=== PATIENT | female | born 1950 | race Caucasian/White ===

== ENCOUNTER → 2017-08-18 | Outpatient (CLI) | payer MEDICARE, OTHER ==
--- NOTE | 2017-08-21 08:36 | MM ---
Reason for exam: additional evaluation requested from prior study. Last mammogram was performed 2 years and 10 months ago. History: Patient is postmenopausal, has history of breast cancer at age 63, and is nulliparous. Family history of breast cancer in mother. Malignant US biopsy breast VAD RT of the right breast, November 08, 2013. Mastectomy of the right breast. Taking antineoplastic beginning at age 63. Physical Findings: Nurse did not find any significant physical abnormalities on exam. [facility] Diagnostic Mammo LT w CAD CC and MLO view(s) were taken of the left breast. Prior study comparison: October 31, 2014, left breast MG diagnostic mammo LT w CAD. November 08, 2013, right breast MG diagnostic mammo RT wo CAD. There are scattered fibroglandular densities. No significant new findings when compared with previous films. These results were verbally communicated with the patient and result sheet given to the patient on 08/18/17. ASSESSMENT: Benign, BI-RAD 2 RECOMMENDATION: Follow-up diagnostic mammogram of the left breast in 1 year.
== END | disposition home or self-care (01) ==
LOC: RADMAMWWP 15:17
PROVIDERS: ATTEND Family Medicine
DX: C50.911 Malignant neoplasm of unspecified site of right female breast (principal); Z78.0 Asymptomatic menopausal state
CPT/HCPCS: 77065

== ENCOUNTER 2017-12-16 16:19 | Inpatient (IN) | payer MEDICARE, OTHER ==
[2017-12-16] MEDS ORDERED: SODIUM CHLORIDE 0.9% 1,000 ML IV STA ×2 (16:46→18:42)
[2017-12-16] MEDS ORDERED: ACETAMINOPHEN TAB 500 MG TAB PO STA (16:46)
--- NOTE | 2017-12-16 16:50 | ED ---
General Adult HPI - General Chief complaint: Fever Stated complaint: flu like symptoms Source: patient Mode of arrival: ambulatory Limitations: no limitations - History of Present Illness Initial comments: Dictation was produced using [employer] dictation software. please excuse any grammatical, word or spelling errors. Chief Complaint: 67-year-old female past medical history of breast cancer, fibromyalgia, diabetes, seizures, SVT presents with constitutional symptoms. History of Present Illness: C7-year-old female with multiple comorbidities presents with constitutional symptoms. Patient states she's been feeling feverish with night sweats since yesterday. Patient denies any cough. Denies any abdominal pain. Patient does complain of some bilateral foot pain but she states that it's been at baseline. She states that she has a history of neuropathy. Denies any severe joint pain. No nausea vomiting. No diarrhea. Denies any overt sick contacts. Denies any throat pain. The ROS documented in this emergency department record has been reviewed and confirmed by me. Those systems with pertinent positive or negative responses have been documented in the HPI. All other systems are other negative and/or noncontributory. - Related Data Home Medications Medication Instructions Recorded Confirmed Cyclobenzaprine [Flexeril] 10 mg PO HS PRN 11/29/13 12/16/17 LORazepam [Ativan] 1 mg PO TID 11/29/13 12/16/17 Lisinopril-Hctz 20-25 mg 1 each PO DAILY 11/29/13 12/16/17 [Zestoretic 20-25] Fluticasone/Salmeterol [Advair 1 inhalation PO RT-DAILY 06/24/14 12/16/17 100-50 Diskus] Anastrozole [Arimidex] 1 mg PO DAILY 09/30/14 12/16/17 Insulin Aspart [NovoLOG] 30 units SQ AC-TID 12/16/17 12/16/17 Insulin Detemir [Levemir Flextouch] 70 units SQ HS 12/16/17 12/16/17 Naproxen Sodium [Aleve] 440 mg PO Q6HR 12/16/17 12/16/17 diphenhydrAMINE HCL [Benadryl] 50 mg PO DAILY 12/16/17 12/16/17 Previous Rx's Medication Instructions Recorded Hydrocodone/Acetaminophen [[place] 1 each PO Q6HR PRN #20 tab 05/15/14 5-325] Allergies Allergy/AdvReac Type Severity Reaction Status Date / Time codeine Allergy Nausea & Verified 12/16/17 17:51 Vomiting Penicillins Allergy Rash/Hives Verified 12/16/17 17:51 phenobarbital AdvReac Unknown Verified 12/16/17 17:51 phenytoin sodium AdvReac Unknown Verified 12/16/17 17:51 [From Dilantin] phenytoin sodium extended AdvReac Unknown Verified 12/16/17 17:51 [From Dilantin] primidone [From Mysoline] AdvReac Unknown Verified 12/16/17 17:51 Review of Systems ROS Statement: Those systems with pertinent positive or pertinent negative responses have been documented in the HPI. ROS Other: All systems not noted in ROS Statement are negative. Past Medical History Past Medical History: Cancer, COPD, Diabetes Mellitus, Hyperlipidemia, Hypertension, Seizure Disorder, Supraventricular Tachycardia (SVT) History of Any Multi-Drug Resistant Organisms: None Reported Past Surgical History: Adenoidectomy, Appendectomy, Cholecystectomy, Hysterectomy, Tonsillectomy Additional Past Surgical History / Comment(s): masectomy right, ganglion cyst right hand Past Psychological History: No Psychological Hx Reported Smoking Status: Current every day smoker Past Alcohol Use History: None Reported Past Drug Use History: None Reported General Exam - General Exam Comments Initial Comments: PHYSICAL EXAM: General Impression: Alert and oriented x3, not in acute distress, warm to the touch HEENT: Normocephalic atraumatic, extra-ocular movements intact, pupils equal and reactive to light bilaterally, mucous membranes moist. Cardiovascular: Tachycardic Chest: Lungs clear to auscultation bilaterally, no rhonchi, no wheeze, no rales Abdomen: Bowel sounds present, abdomen soft, non-tender, non-distended, no organomegaly Musculoskeletal: Pulses present and equal in all extremities, no peripheral edema, no erythematous joints. It needs ankles shoulders elbows and wrists were ranged without palpitations. Motor: Power 5/5 bilaterally, no focal deficits noted Neurological: CN II-XII grossly intact, no focal motor or sensory deficits noted Skin: Intact with no visualized rashes Psych: Normal affect and mood Limitations: no limitations Course Vital Signs 12/16/17 12/16/17 12/16/17 16:27 16:30 16:31 Temperature 100.8 F H Pulse Rate 113 H 115 H Respiratory 13 20 Rate Blood Pressure 137/73 137/73 137/73 O2 Sat by Pulse 97 96 100 Oximetry 12/16/17 12/16/17 12/16/17 17:00 17:30 17:35 Temperature Pulse Rate 106 H 104 H 103 H Respiratory 15 25 H 16 Rate Blood Pressure 128/62 94/55 106/67 O2 Sat by Pulse 94 L 93 L 93 L Oximetry 12/16/17 12/16/17 12/16/17 18:00 18:11 18:30 Temperature 99.3 F Pulse Rate 101 H 100 Respiratory 16 18 Rate Blood Pressure 106/67 99/57 O2 Sat by Pulse 91 L 91 L Oximetry 12/16/17 19:00 Temperature Pulse Rate 106 H Respiratory 20 Rate Blood Pressure 103/73 O2 Sat by Pulse Oximetry Medical Decision Making - Medical Decision Making ED course: 7-year-old female multiple comorbidities presents with constitutional symptoms. At this point there is no clear close as to what might be causing her symptoms of fever chills or night sweats. Patient denies any specific symptoms except for foot pain. Her feet do not appear to be erythematous or painful. At this point doubt any septic arthritides. Arrival shows temperature 100.8, heart rate of 115. Rest of vital signs within acceptable limits.Laboratory evaluation obtained. Leukocytosis of 11.0. Hemoglobin of 10.7. Metabolic panel shows sodium of 133. Potassium 5.2. Creatinine of 2.15. Lactic acidosis of 6.4. Glucose of 425. Troponin of 0.115. Patient's hyperkalemia and elevated troponin is likely secondary to renal dysfunction. There is strong clinical suspicion that patient is having sepsis. Chest x-ray obtained showing no acute processes. Patient given intravenous fluids at 30 mL per KG based on ideal weight. Started on antibiotics. Patient is taking a long time to provide a urine sample. Vital signs shows persistent tachycardia however her blood pressure remains within acceptable limits. Her map is consistently above 65. Patient is mentating appropriately. No clear indication for ICU admission at this time. Patient started on broad-spectrum antibiotics. We'll admit H&P to telemetry. Pending urine studies. EKG interpretation: Ventricular rate 100, normal sinus rhythm, IA interval 170, QS 94. There is incomplete right bundle branch block.. No IA prolongation, no QTC prolongation, no ST or T-wave changes noted. . Overall, this EKG is unremarkable - Lab Data Result diagrams: 12/16/17 16:33 12/16/17 16:33 Lab Results 12/16/17 12/16/17 12/16/17 Range/Units 16:33 16:33 16:33 WBC 11.0 H (3.8-10.6) k/uL RBC 3.44 L (3.80-5.40) m/uL Hgb 10.7 L (11.4-16.0) gm/dL Hct 34.1 (34.0-46.0) % MCV 99.2 (80.0-100.0) fL MCH 31.0 (25.0-35.0) pg MCHC 31.3 (31.0-37.0) g/dL RDW 15.9 H (11.5-15.5) % Plt Count 162 (150-450) k/uL Neutrophils % 86 % Lymphocytes % 9 % Monocytes % 4 % Eosinophils % 1 % Basophils % 0 % Neutrophils # 9.4 H (1.3-7.7) k/uL Lymphocytes # 1.0 (1.0-4.8) k/uL Monocytes # 0.4 (0-1.0) k/uL Eosinophils # 0.1 (0-0.7) k/uL Basophils # 0.0 (0-0.2) k/uL Hypochromasia Moderate Poikilocytosis Slight Macrocytosis Slight Sodium 133 L (137-145) mmol/L Potassium 5.2 H (3.5-5.1) mmol/L Chloride 100 (98-107) mmol/L Carbon Dioxide 18 L (22-30) mmol/L Anion Gap 15 mmol/L BUN 38 H (7-17) mg/dL Creatinine 2.15 H (0.52-1.04) mg/dL Est GFR (CKD-EPI)AfAm 27 (>60 ml/min/1.73 sqM) Est GFR (CKD-EPI)NonAf 24 (>60 ml/min/1.73 sqM) Glucose 425 H (74-99) mg/dL Plasma Lactic Acid Vasile 6.4 H* (0.7-2.0) mmol/L Calcium 9.2 (8.4-10.2) mg/dL Total Bilirubin 1.8 H (0.2-1.3) mg/dL AST 42 H (14-36) U/L ALT 24 (9-52) U/L Alkaline Phosphatase 146 H (38-126) U/L Creatine Kinase (30-135) U/L Troponin I (0.000-0.034) ng/mL Total Protein 7.3 (6.3-8.2) g/dL Albumin 3.5 (3.5-5.0) g/dL 12/16/17 12/16/17 Range/Units 16:33 16:33 WBC (3.8-10.6) k/uL RBC (3.80-5.40) m/uL Hgb (11.4-16.0) gm/dL Hct (34.0-46.0) % MCV (80.0-100.0) fL MCH (25.0-35.0) pg MCHC (31.0-37.0) g/dL RDW (11.5-15.5) % Plt Count (150-450) k/uL Neutrophils % % Lymphocytes % % Monocytes % % Eosinophils % % Basophils % % Neutrophils # (1.3-7.7) k/uL Lymphocytes # (1.0-4.8) k/uL Monocytes # (0-1.0) k/uL Eosinophils # (0-0.7) k/uL Basophils # (0-0.2) k/uL Hypochromasia Poikilocytosis Macrocytosis Sodium (137-145) mmol/L Potassium (3.5-5.1) mmol/L Chloride (98-107) mmol/L Carbon Dioxide (22-30) mmol/L Anion Gap mmol/L BUN (7-17) mg/dL Creatinine (0.52-1.04) mg/dL Est GFR (CKD-EPI)AfAm (>60 ml/min/1.73 sqM) Est GFR (CKD-EPI)NonAf (>60 ml/min/1.73 sqM) Glucose (74-99) mg/dL Plasma Lactic Acid Vasile (0.7-2.0) mmol/L Calcium (8.4-10.2) mg/dL Total Bilirubin (0.2-1.3) mg/dL AST (14-36) U/L ALT (9-52) U/L Alkaline Phosphatase (38-126) U/L Creatine Kinase 53 (30-135) U/L Troponin I 0.115 H* (0.000-0.034) ng/mL Total Protein (6.3-8.2) g/dL Albumin (3.5-5.0) g/dL Disposition Clinical Impression: Sepsis Disposition: ADMITTED IP TO THIS HOSP Condition: Fair Referrals: Handy Delcid MD [Primary Care Provider] - 1-2 days Decision Time: 19:31
[2017-12-16 17:07] LABS: Basophils % (A) 0 %; Eosinophils # (A) 0.1 k/uL (0-0.7); Eosinophils % (A) 1 %; HCT 34.1 % (34.0-46.0); HGB 10.7 gm/dL (11.4-16.0); Hypochromasia Moderate; Lymphocytes % (A) 9 %; MCHC 31.3 g/dL (31.0-37.0); MCV 99.2 fL (80.0-100.0); Macrocytosis Slight; Monocytes # (A) 0.4 k/uL (0-1.0); Monocytes % (A) 4 %; Neutrophils # (A) 9.4 k/uL (1.3-7.7); Neutrophils % (A) 86 %; Platelet Count 162 k/uL (150-450); Poikilocytosis Slight; RBC 3.44 m/uL (3.80-5.40); RDW 15.9 % (11.5-15.5)
[2017-12-16 17:18] LABS: Albumin 3.5 g/dL (3.5-5.0); Calcium 9.2 mg/dL (8.4-10.2); Potassium 5.2 mmol/L (3.5-5.1); Total Bilirubin 1.8 mg/dL (0.2-1.3); Total Protein 7.3 g/dL (6.3-8.2)
--- NOTE | 2017-12-16 17:30 | XR ---
EXAMINATION TYPE: XR chest 2V DATE OF EXAM: 12/16/2017 COMPARISON: Prior chest x-ray 03/26/2015 HISTORY: Fever, nausea, breast carcinoma TECHNIQUE: Frontal and lateral views of the chest are obtained. FINDINGS: Patient is rotated. There is no focal air space opacity, pleural effusion, or pneumothorax seen. The cardiac silhouette size is stable, enlarged. The osseous structures are intact. IMPRESSION: No acute cardiopulmonary process.
[2017-12-16] MEDS ORDERED: MORPHINE SULFATE 4 MG/ML SYRINGE IVP PRN (17:57)
[2017-12-16] MEDS ORDERED: CEFEPIME 2 GM in SODIUM CHLORIDE 0.9% 50 ML IVPB STA (17:58)
[2017-12-16] MEDS ORDERED: VANCOMYCIN 2,250 MG in SODIUM CHLORIDE 0.9% 250 ML IVPB STA (18:01)
[2017-12-16] MEDS ORDERED: VANCOMYCIN 2,250 MG in SODIUM CHLORIDE 0.9% 500 ML 500 ML IVPB STA (18:02)
[2017-12-16] MEDS ORDERED: VANCOMYCIN IV PER PHARMACY 1 EACH MISC MISCELLANE PRN (18:02)
[2017-12-16] MEDS ORDERED: LORazepam 2 MG/ML INJ IV STA (20:22)
[2017-12-16] MEDS ORDERED: METOPROLOL TARTRATE 5 MG/5 ML VIAL IVP STA ×2 (20:40→21:27)
[2017-12-16] MEDS ORDERED: MAGNESIUM SULFATE-D5W PMX 1 GM in DEXTROSE/WATER 1 100ML.BAG IVPB SCH (21:00)
[2017-12-16 21:44] LABS: Appearance,Urine Turbid (Clear); Bacteria,Urine Many /hpf; Bilirubin,Urine Negative (Negative); Blood,Urine Large (Negative); Color,Urine Light Red; Glucose,Urine (UA) 3+ (Negative); Hyaline Casts,Urine 69 /lpf (0-2); Ketones,Urine Negative (Negative); Leukocyte Esterase,Urine Large (Negative); Nitrite,Urine Negative (Negative); PH, Urine 5.5 (5.0-8.0); Protein,Urine 3+ (Negative); RBC,Urine >182 /hpf (0-5); Specific Gravity,Urine 1.015 (1.001-1.035); Urobilinogen,Urine <2.0 mg/dL (<2.0); WBC,Urine >182 /hpf (0-5)
[2017-12-16] MEDS ORDERED: MAGNESIUM SULFATE-D5W PMX 1 GM in DEXTROSE/WATER 1 100ML.BAG IVPB ONE (22:00)
[2017-12-16] MEDS ORDERED: NOREPINEPHRINE 16 MG in SODIUM CHLORIDE 0.9% 250 ML IV SCH (23:00)
[2017-12-16] MEDS ORDERED: SODIUM CHLORIDE 0.9% 1,000 ML IV SCH (23:00)
--- NOTE | 2017-12-16 23:47 | XR ---
EXAMINATION TYPE: XR chest 1V DATE OF EXAM: 12/16/2017 COMPARISON: Today HISTORY: Check line placement TECHNIQUE: Single frontal view of the chest is obtained. FINDINGS: There is left jugular catheter with the tip in the lower superior vena cava. There is no p neumothorax. There is no heart failure. Lungs appear clear of consolidation. IMPRESSION: Catheter appears in good position.
[2017-12-16 23:51] LABS: Glucose,Whole Blood 394 mg/dL (75-99)
[2017-12-17] MEDS ORDERED: MORPHINE SULFATE 4 MG/ML SYRINGE IV PRN (00:50)
[2017-12-17] MEDS ORDERED: NALOXONE 0.4 MG/ML 1 ML VIAL IV PRN (01:53)
[2017-12-17] MEDS: SODIUM CHLORIDE 0.9% 1,000 ML IV SCH ×2 (02:16→11:14)
[2017-12-17] MEDS: HEPARIN SODIUM,PORCINE 5,000 UNIT/ML 1 ML VIAL SQ SCH ×3 (02:30→15:42)
[2017-12-17] MEDS: PANTOPRAZOLE 40 MG/10 ML VIAL IV SCH ×2 (02:34→09:10)
[2017-12-17 05:25] LABS: Basophils # (A) 0.1 k/uL (0-0.2); Basophils % (A) 1 %; Eosinophils # (A) 0.1 k/uL (0-0.7); Eosinophils % (A) 2 %; HCT 27.3 % (34.0-46.0); Hypochromasia Moderate; Lymphocytes # (A) 1.9 k/uL (1.0-4.8); Lymphocytes % (A) 23 %; MCH 31.5 pg (25.0-35.0); MCV 98.6 fL (80.0-100.0); Macrocytosis Slight; Mean Platelet Volume 8.4; Monocytes # (A) 0.6 k/uL (0-1.0); Monocytes % (A) 8 %; Neutrophils # (A) 5.3 k/uL (1.3-7.7); Neutrophils % (A) 64 %; Platelet Count 136 k/uL (150-450); Poikilocytosis Slight; RBC 2.77 m/uL (3.80-5.40); RDW 15.9 % (11.5-15.5); WBC 8.2 k/uL (3.8-10.6)
[2017-12-17 05:29] LABS: HGB 8.7 gm/dL (11.4-16.0)
[2017-12-17 05:30] LABS: Albumin 2.9 g/dL (3.5-5.0); Calcium 8.2 mg/dL (8.4-10.2); Phosphorus 4.5 mg/dL (2.5-4.5); Potassium 4.9 mmol/L (3.5-5.1); Total Bilirubin 1.2 mg/dL (0.2-1.3); Total Protein 6.1 g/dL (6.3-8.2)
--- NOTE | 2017-12-17 06:14 | XR ---
EXAMINATION TYPE: XR chest 1V DATE OF EXAM: 12/17/2017 HISTORY: Shortness of breath. REFERENCE: Previous study dated 12/16/2017. FINDINGS: There is a left internal jugular catheter in place. Its tip is in the superior vena cava. The heart is mildly enlarged. The lungs appear clear. LV difficult to exclude a small left effusion. IMPRESSION: NO SIGNIFICANT INTERVAL CHANGE IN THE APPEARANCE OF THE CHEST.
[2017-12-17] MEDS ORDERED: SODIUM CHLORIDE 0.9% 1,000 ML IV ONE (06:48)
[2017-12-17] MEDS ORDERED: FUROSEMIDE 10 MG/ML 10 ML VIAL IV STA (06:51)
--- NOTE | 2017-12-17 07:29 | P.CNPUL ---
History of Present Illness Consult date: 12/17/17 Requesting physician: Porsche Alexander Reason for consult: other Chief complaint: Fever, chills, hypotension, sepsis History of present illness: This is 67-year-old white female patient of Dr. Delcid, who presented to the emergency department on 12/16/2017 for evaluation of fever, chills, pain in her bilateral feet, patient does have underlying history of diabetes mellitus, with diabetic neuropathy. Patient had some nausea, but no vomiting, no shortness of breath, no cough, no phlegm production. She denied any abdominal pain, no back pain. Denied any urinary symptoms. Past medical history is significant for hypertension, hyperlipidemia, seizure disorder, and patient has not had seizure episodes in a long time, history of right-sided breast cancer status post right mastectomy, and chemotherapy. Patient is on Arimidex currently. She is a current every day smoker, half a pack a day for 46 years. She denies any underlying chronic lung condition. She denies any previous history of myocardial infarction, or congestive heart failure, no past history of chronic kidney disease. She states she was recently diagnosed with diabetes by Dr. Delcid, and she was started initially on metformin, however she could not tolerate it, and she is currently on a combination of Levemir and NovoLog. Patient did have fevers on presentation, with a temp of 100.8F, she was tachycardic with a rate in the 115 BPM. EKG showed normal sinus rhythm with an incomplete right bundle branch block pattern. No acute ischemic changes. Chest x-ray showed no acute cardiopulmonary process. Labs showed a CBC of 11.0 , hemoglobin of 10.7, sodium was 133, potassium is 5.2, patient had an anion gap metabolic acidosis, with CO2 of 18, BUN was 38, creatinine is 2.15. Lactic acid was elevated at 6.4, patient was given 2 L of IV fluid boluses of of 0.9 normal saline, and was started on maintenance IV fluids of 0.9 normal saline at 150 ML per hour, troponin was elevated 0.115. Patient denied any chest pain. Urinalysis showed large amount of leuk trase, red blood cells white blood cells , many bacteria. While in the emergency department, patient developed an episode of SVT, she had an episode of syncope lasting about 30 seconds, patient' s episode of SVT lasted for several seconds and subsequently patient went back into sinus rhythm. Magnesium level was 1.7, patient was given magnesium replacements. Blood and urine cultures were collected and sent, and are pending at this time, patient was started on broad-spectrum antibiotics including cefepime and vancomycin. This morning patient is seen in the intensive care unit, she is awake and alert, oriented 3, in no acute distress. No fevers overnight, maintenance IV fluid is 0.9 normal seen at a rate of 150 ML per hour, she is on levo fed currently at 3 mics per minute, she is oliguric , we will give the patient additional liter bolus of 0.9 normal saline. Cultures are pending. Patient had a left IJ triple-lumen central line catheter placed in the emergency department, follow-up chest x-ray this morning showed no acute cardiopulmonary process, and left internal jugular catheter is in the appropriate position with its tip in the superior vena cava. Lactic acid level on this morning is down to 1.2. Review of Systems All systems: negative Constitutional: Reports malaise, Reports sweats, Denies chills, Denies fever Eyes: denies blurred vision, denies pain Ears, nose, mouth and throat: Denies headache, Denies sore throat Cardiovascular: Denies chest pain, Denies shortness of breath Respiratory: Denies cough Gastrointestinal: Denies abdominal pain, Denies diarrhea, Denies nausea, Denies vomiting Genitourinary: Denies dysuria, Denies hematuria Musculoskeletal: Denies myalgias Integumentary: Denies pruritus, Denies rash Neurological: Reports paresthesias, Reports syncope, Reports tingling, Denies numbness, Denies weakness Psychiatric: Denies anxiety, Denies depression Endocrine: Denies fatigue, Denies weight change Past Medical History Past Medical History: Cancer, COPD, Diabetes Mellitus, Fibromyalgia, Hyperlipidemia, Hypertension, Rheumatoid Arthritis (RA), Seizure Disorder, Supraventricular Tachycardia (SVT) Additional Past Medical History / Comment(s): (R) Breast cancer with masectomy in 2012. DM Type II. Recent dental extraction (all teeth from lower jaw 2017) History of Any Multi-Drug Resistant Organisms: None Reported Past Surgical History: Adenoidectomy, Appendectomy, Breast Surgery, Cholecystectomy, Hysterectomy, Tonsillectomy, Tubal Ligation Additional Past Surgical History / Comment(s): masectomy right, ganglion cyst right hand, Had 5 "tubal pregnancies" Past Anesthesia/Blood Transfusion Reactions: No Reported Reaction Past Psychological History: Anxiety, Depression Additional Psychological History / Comment(s): Mother had hx of suicidal ideation with 3 attempts. Smoking Status: Current every day smoker Past Alcohol Use History: None Reported Past Drug Use History: None Reported - Past Family History Father Family Medical History: Cancer, CVA/TIA Additional Family Medical History / Comment(s): 2000 from lung cancer Mother Family Medical History: Cancer, Dementia Additional Family Medical History / Comment(s): 2014 at age 86. Oral & Breast cancer Brother(s) Family Medical History: Asthma, Diabetes Mellitus, Fibromyalgia, Osteoarthritis (OA) Additional Family Medical History / Comment(s): Obesity. Joint replacements Medications and Allergies Home Medications Medication Instructions Recorded Confirmed Type Cyclobenzaprine [Flexeril] 10 mg PO HS PRN 11/29/13 12/16/17 History LORazepam [Ativan] 1 mg PO TID 11/29/13 12/16/17 History Lisinopril-Hctz 20-25 mg 1 each PO DAILY 11/29/13 12/16/17 History [Zestoretic 20-25] Hydrocodone/Acetaminophen [[place] 1 each PO Q6HR PRN #20 tab 05/15/14 12/16/17 Rx 5-325] Fluticasone/Salmeterol [Advair 1 inhalation PO RT-DAILY 06/24/14 12/16/17 History 100-50 Diskus] Anastrozole [Arimidex] 1 mg PO DAILY 09/30/14 12/16/17 History Insulin Aspart [NovoLOG] 30 units SQ AC-TID 12/16/17 12/16/17 History Insulin Detemir [Levemir Flextouch] 70 units SQ HS 12/16/17 12/16/17 History Naproxen Sodium [Aleve] 440 mg PO Q6HR 12/16/17 12/16/17 History diphenhydrAMINE HCL [Benadryl] 50 mg PO DAILY 12/16/17 12/16/17 History Allergies Allergy/AdvReac Type Severity Reaction Status Date / Time codeine Allergy Nausea & Verified 12/16/17 17:51 Vomiting Penicillins Allergy Rash/Hives Verified 12/16/17 17:51 phenobarbital AdvReac Unknown Verified 12/16/17 17:51 phenytoin sodium AdvReac Unknown Verified 12/16/17 17:51 [From Dilantin] phenytoin sodium extended AdvReac Unknown Verified 12/16/17 17:51 [From Dilantin] primidone [From Mysoline] AdvReac Unknown Verified 12/16/17 17:51 Physical Exam Vitals: Vital Signs Temp Pulse Pulse Resp BP BP Pulse Ox 12/17/17 03:30 82 13 143/71 95 12/17/17 03:20 84 16 82/59 95 12/17/17 03:00 78 14 93/52 96 12/17/17 02:30 81 15 111/70 98 12/17/17 02:00 84 14 116/81 97 12/17/17 01:30 EST 83 14 105/65 97 12/17/17 01:00 EST 84 14 105/64 97 12/17/17 00:30 82 16 105/75 96 12/17/17 00:00 82 16 113/66 96 12/16/17 23:40 98.1 F 86 16 120/69 97 12/16/17 23:18 98 F 88 16 90/58 94 L 12/16/17 23:00 87 16 79/61 93 L 12/16/17 22:30 90 16 109/58 86 L 12/16/17 22:00 95 16 82/49 100 12/16/17 21:30 92 22 102/59 96 12/16/17 21:00 93 16 89/56 95 12/16/17 20:30 98 14 99/82 90 L 12/16/17 20:00 110 H 23 102/56 96 12/16/17 19:30 106 H 21 12/16/17 19:00 106 H 20 103/73 12/16/17 18:30 100 18 99/57 91 L 12/16/17 18:11 99.3 F 12/16/17 18:00 101 H 16 106/67 91 L 12/16/17 17:35 103 H 16 106/67 93 L 12/16/17 17:30 104 H 25 H 94/55 93 L 12/16/17 17:00 106 H 15 128/62 94 L 12/16/17 16:31 100.8 F H 115 H 20 137/73 100 12/16/17 16:30 113 H 13 137/73 96 12/16/17 16:27 137/73 97 Intake and Output 12/16/17 12/17/17 12/17/17 23:59 06:59 14:59 Intake Total Output Total Balance Intake: IV Magnesium Sulfate-D5w Pmx 1 gm In Dextrose/Water 1 100ml.bag @ 100 mls/hr IVPB ONCE ONE Rx#: [id number] Sodium Chloride 0.9% 1, 000 ml @ 100 mls/hr IV . Q10H [facility] Rx#:[id number] Output: Urine Uretheral (Granados) Other: Voiding Method Weight GENERAL EXAM: Alert, pleasant 67-year-old obese white female comfortable in no apparent distress. HEAD: Normocephalic/atraumatic. EYES: Normal reaction of pupils, equal size. Conjunctiva pink, sclera white. NOSE: Clear with pink turbinates. THROAT: No erythema or exudates. NECK: No masses, no JVD, no thyroid enlargement, no adenopathy. CHEST: No chest wall deformity. Symmetrical expansion. LUNGS: Equal air entry with crackles over bilateral lower bases posteriorly CVS: Regular rate and rhythm, distant heart sounds, normal S1 and S2, no gallops , no murmurs, no rubs ABDOMEN: Soft, nontender. No hepatosplenomegaly, normal bowel sounds, no guarding or rigidity. EXTREMITIES: No clubbing, no edema, no cyanosis, 2+ pulses and upper and lower extremities. MUSCULOSKELETAL: Muscle strength and tone normal. SPINE: No scoliosis or deformity SKIN: No rashes CENTRAL NERVOUS SYSTEM: Alert and oriented -3. No focal deficits, tone is normal in all 4 extremities. PSYCHIATRIC: Alert and oriented -3. Appropriate affect. Intact judgment and insight. Results - Laboratory Findings CBC and BMP: 12/17/17 04:48 12/17/17 04:48 Abnormal lab findings: Abnormal Labs 12/16/17 12/16/17 12/16/17 16:33 16:33 16:33 WBC 11.0 H RBC 3.44 L Hgb 10.7 L Hct RDW 15.9 H Plt Count Neutrophils # 9.4 H Sodium 133 L Potassium 5.2 H Carbon Dioxide 18 L BUN 38 H Creatinine 2.15 H Glucose 425 H POC Glucose (mg/dL) Plasma Lactic Acid Vasile 6.4 H* Calcium Total Bilirubin 1.8 H AST 42 H Alkaline Phosphatase 146 H Troponin I Total Protein Albumin Urine Appearance Urine Protein Urine Glucose (UA) Urine Blood Ur Leukocyte Esterase Urine RBC Urine WBC Urine WBC Clumps Urine Bacteria Hyaline Casts 12/16/17 12/16/17 12/16/17 16:33 20:30 20:50 WBC RBC Hgb Hct RDW Plt Count Neutrophils # Sodium Potassium Carbon Dioxide BUN Creatinine Glucose POC Glucose (mg/dL) Plasma Lactic Acid Vasile 3.4 H* Calcium Total Bilirubin AST Alkaline Phosphatase Troponin I 0.115 H* Total Protein Albumin Urine Appearance Turbid H Urine Protein 3+ H Urine Glucose (UA) 3+ H Urine Blood Large H Ur Leukocyte Esterase Large H Urine RBC >182 H Urine WBC >182 H Urine WBC Clumps Many H Urine Bacteria Many H Hyaline Casts 69 H 12/16/17 12/17/17 12/17/17 23:39 04:48 04:48 WBC RBC 2.77 L Hgb 8.7 L D Hct 27.3 L RDW 15.9 H Plt Count 136 L Neutrophils # Sodium 133 L Potassium Carbon Dioxide BUN 40 H Creatinine 2.47 H Glucose 303 H POC Glucose (mg/dL) 394 H Plasma Lactic Acid Vasile Calcium 8.2 L Total Bilirubin AST Alkaline Phosphatase Troponin I Total Protein 6.1 L Albumin 2.9 L Urine Appearance Urine Protein Urine Glucose (UA) Urine Blood Ur Leukocyte Esterase Urine RBC Urine WBC Urine WBC Clumps Urine Bacteria Hyaline Casts - Diagnostic Findings Chest x-ray: report reviewed, image reviewed Additional studies: EKG reviewed Assessment and Plan Plan: Assessment: #1. Septic shock secondary to urinary tract infection, cultures pending #2. Anion gap metabolic acidosis secondary to lactic acidosis related to sepsis #3. Episode of SVT, she has spontaneously converted back to sinus rhythm #4. Transient episode of syncope, likely secondary to SVT #5. Acute kidney injury likely related to hypotension, and steroid use #6. Mild hyponatremia, likely secondary to hypovolemia #7. Hyperglycemia likely induced by sepsis #8. Diabetes mellitus type 2 with diabetic neuropathy #9. Hypertension, hyperlipidemia #10. History of SVT #11. History of right breast cancer, status post mastectomy and chemotherapy #12. Current every day smoker, patient carries a 46-year smoking history, smoking half a pack a day #13. COPD #14. Seizure disorder #15. Chronic anemia Plan: We will give the patient additional 1 L bolus of 0.9 normal saline, to make a total of 3 L in boluses, patient is oliguric, she is on levophed currently at 3 mics per minute, if the urine output does not citrus picker we may try a dose of Lasix 80 mg 1. Continue with current antibiotic coverage, and the following results of cultures, patient is afebrile. We'll obtain nephrology consult in regards to acute kidney injury, obtain ultrasound of the kidneys. Continue GI and DVT prophylaxis, may have to start the patient on insulin drip for glycemic control. Chest x-ray has been reviewed, and showed no acute process. Continue to monitor the patient in the intensive care unit. I performed a history & physical examination of the patient and discussed their management with my nurse practitioner, Yesica Velázquez. I reviewed the nurse practitioner's note and agree with the documented findings and plan of care. Lung sounds are positive for crackles over bilateral lower bases. The findings and the impression was discussed with the patient. I attest to the documentation by the nurse practitioner. Time with Patient: Greater than 30
[2017-12-17] MEDS ORDERED: INSULIN REGULAR BOLUS (FROM DRIP BAG) IV PRN (07:30)
[2017-12-17 07:54] LABS: Glucose,Whole Blood 297 mg/dL (75-99)
[2017-12-17] MEDS: MAGNESIUM SULFATE-D5W PMX 1 GM in DEXTROSE/WATER 1 100ML.BAG IVPB SCH (09:17)
[2017-12-17] MEDS: CEFEPIME 2 GM in SODIUM CHLORIDE 0.9% 50 ML IVPB SCH (09:21)
[2017-12-17 09:22] LABS: Glucose,Whole Blood 357 mg/dL (75-99)
[2017-12-17] MEDS: INSULIN REGULAR 100 UNIT in SODIUM CHLORIDE 0.9% 100 ML IV SCH ×2 (09:25→20:21)
--- NOTE | 2017-12-17 10:02 | CONS ---
CONSULTATION Mrs. Simpson is a 67-year-old female with a history of hypertension and diabetes who presented was not feeling well and fatigue and weak and in the emergency room, she was hypotensive and had findings consistent with urinary sepsis. The patient has a history of breast cancer. She had remote history of SVT. In the emergency room there was an episode that was thought to be related to a ventricular tachycardia, although after reviewing the rhythm strip in detail, the patient is in sinus mechanism and that was an artifact. There was a questionable history of syncope, although I have no clear documentation of that. She is on the low-dose norepinephrine at this time. She is hemodynamically otherwise in sinus mechanism. Had no evidence for further tachy or Alfonso arrhythmia. Her urinary output improved after IV fluid. She denies any chest pain. Her breathing according to her, is stable although she is not very active physically. She has chronic peripheral edema. She has no recent palpitation or syncope. No dizziness. She has no history of obstructive coronary artery disease. MEDICATION: Are home included Naprosyn, lisinopril, HCT 20-25 mg daily, insulin, cyclobenzaprine, hydrocodone, fluticasone and Arimidex. REVIEW OF SYSTEMS: RESPIRATORY system: She had dyspnea on exertion. No recent wheezing or cough. GI system: She denies any recent GI bleeding. No peptic ulcer disease. No nausea. system: She has signs of urinary tract infection. Nervous system: She had a prior history of seizure, but not recently. PHYSICAL EXAMINATION: 67-year-old female, obese, alert, oriented, anxious. The blood pressure running in the 100s-120 with a heart rate in the 80s. HEAD: Normocephalic. Eyes: Sclerae anicteric. Neck: Good carotid upstroke. No bruit. No jugular venous distention. LUNGS: Clear to auscultation. Heart is regular rate and rhythm. S1, S2. No S3 with systolic ejection murmur heard at the base, 3/6, no peaking. No diastolic murmur. No rub. ABDOMEN: Soft, obese, nontender. EXTREMITIES: +1 to 2 edema bilaterally. EKG revealed a sinus mechanism, rate of 100, left axis deviation, poor R progression, nonspecific ST-T wave changes. Cannot exclude inferior wall myocardial infarction. Chest x-ray shows no clear infiltrate. LAB DATA: Lab data revealed a hemoglobin of 8.7, BUN creatinine 20 and 2.47. It was 2.15 yesterday. Potassium 4.9. Her troponin on admission 0.115. Total bilirubin is 1.8. Her plasma lactic acid on presentation was 6.4. On presentation, she was febrile at 100.8. IMPRESSION: 1. Urosepsis with hypotension. 2. Questionable arrhythmia, although reviewing the rhythm strip, patient in sinus mechanism with artifact. 3. Mild troponin elevation most likely related to a type 2 event. I see no evidence to suggest a primary ischemic event. 4. History of hypertension. 5. Hyperlipidemia. 6. Renal function abnormalities. Reviewing the data, her renal function in 2016 were normal. 7. Obesity. 8. History of breast carcinoma. RECOMMENDATION: I would recommend to obtain echocardiogram with Doppler. Patient received IV fluid. Hopefully we can wean the IV norepinephrine off. We will follow her renal function. I will obtain serial enzymes. I will initiate treatment with aspirin. We will follow her blood pressure and if it is stable, we will add a beta talisha. I will add a statin because of history of diabetes and depending on her progress, further recommendations will be made. Thank you for this consult. We will follow with you. MMODL / IJN: [id number] /
[2017-12-17 10:09] LABS: Glucose,Whole Blood 324 mg/dL (75-99)
[2017-12-17] MEDS: ATORVASTATIN 40 MG TAB PO SCH (10:14)
[2017-12-17] MEDS: ASPIRIN 81 MG PO SCH (10:17)
--- NOTE | 2017-12-17 10:33 | US ---
EXAMINATION TYPE: US kidneys/renal and bladder DATE OF EXAM: 12/17/2017 COMPARISON: NONE CLINICAL HISTORY: acute kidney injury. ICU patient, diabetic, BERNIE EXAM MEASUREMENTS: Right Kidney: 12.9 x 4.6 x 5.7 cm Left Kidney: 11.7 x 4.5 x 5.6 cm *large body habitus Right Kidney: No hydronephrosis or masses seen Left Kidney: No hydronephrosis or masses seen Bladder: not distended, murry cath IMPRESSION: NO EVIDENCE OF HYDRONEPHROSIS.
[2017-12-17] MEDS ORDERED: HYDROcodone/APAP 5-325MG 1 EACH TAB PO PRN (10:34)
[2017-12-17 11:06] LABS: Glucose,Whole Blood 282 mg/dL (75-99)
[2017-12-17] MEDS: MORPHINE SULFATE 2 MG/ML SYRINGE IV PRN ×2 (11:08→15:42)
[2017-12-17] MEDS ORDERED: VANCOMYCIN 2,000 MG in SODIUM CHLORIDE 0.9% 500 ML 500 ML IVPB ONE (12:00)
[2017-12-17 12:03] LABS: Glucose,Whole Blood 255 mg/dL (75-99)
--- NOTE | 2017-12-17 13:00 | P.HPIM ---
History of Present Illness H&P Date: 12/17/17 Chief Complaint: Fever chills and increased pain in her bilateral feet Mrs. Zuniga is a 67-year-old female with a past medical history of type 2 diabetes mellitus, diabetic neuropathy, COPD, hyperlipidemia, hypertension, rheumatoid arthritis, seizure disorder coming to the hospital with a chief complaint of fever chills and increased pain in her bilateral feet for the past couple of days. Patient states that she was seen by Dr. Delcid on and had few tests done but she is not sure what was done. Patient also had some nausea but did not have any abdominal pain. Patient was also having cramping sensation in her bilateral feet. She states that she was recently diagnosed with diabetes and could not tolerate metformin and so was started on combination of Levemir and NovoLog. Patient denies having any chest pain or palpitations. No cough or difficulty in breathing. Patient denies having any increased frequency of urination or dysuria or hematuria. In the emergency department patient had a temperature of 100.8 and was also found to be tachycardic and tachypneic. EKG was showing incomplete right bundle branch block. UA was positive for large leukocyte esterase with increased WBC count. Patient also had an elevated lactic acid at 6.4. She was given 2 L of IV fluid boluses, her blood pressure was still on the lower side so admitted to the ICU. She also had an episode of V. tach that lasted about a few seconds with a mild syncopal episode. Patient had urine cultures and blood cultures and that is currently pending. As the patient's blood pressure was still on the lower side she was started on Levophed. Broad-spectrum antibiotics in the form of vancomycin and cefepime have been started. Patient is currently in the ICU. This morning patient was lying in bed appears to be in no acute distress. Patient states that she still has cramping in her bilateral feet. She mentions that she has diabetic neuropathy and Dr. Delcid has been taking care of her. Patient denies having any chest pain or difficulty in breathing. She denies having any urinary symptoms. Review of Systems REVIEW OF SYSTEMS: PSYCH: Patient seems to be depressed-as she thinks she is a burden to have to bradycardia. She was also tearful thinking about the loss of her 9 years back. NEURO:No c/o weakness of the extremties, No facial droop, No speech abnormalities. VASCULAR: Diabetic neuropathy HEMATOLOGIC: No history of easy bleeding and bruising . No recent infections . RESPIRATORY: No cough, No SOB, No chest discomfort. 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 GI: No abdominal pain, Nausea or vomiting. No constipation or diarrhea. All 13 review of systems done and negative except for ones mentioned above Past Medical History Past Medical History: Cancer, COPD, Diabetes Mellitus, Fibromyalgia, Hyperlipidemia, Hypertension, Rheumatoid Arthritis (RA), Seizure Disorder, Supraventricular Tachycardia (SVT) Additional Past Medical History / Comment(s): (R) Breast cancer with masectomy in 2012. DM Type II. Recent dental extraction (all teeth from lower jaw 2017) History of Any Multi-Drug Resistant Organisms: None Reported Past Surgical History: Adenoidectomy, Appendectomy, Breast Surgery, Cholecystectomy, Hysterectomy, Tonsillectomy, Tubal Ligation Additional Past Surgical History / Comment(s): masectomy right, ganglion cyst right hand, Had 5 "tubal pregnancies" Past Anesthesia/Blood Transfusion Reactions: No Reported Reaction Past Psychological History: Anxiety, Depression Additional Psychological History / Comment(s): Mother had hx of suicidal ideation with 3 attempts. Smoking Status: Current every day smoker Past Alcohol Use History: None Reported Past Drug Use History: None Reported - Past Family History Father Family Medical History: Cancer, CVA/TIA Additional Family Medical History / Comment(s): 2000 from lung cancer Mother Family Medical History: Cancer, Dementia Additional Family Medical History / Comment(s): 2014 at age 86. Oral & Breast cancer Brother(s) Family Medical History: Asthma, Diabetes Mellitus, Fibromyalgia, Osteoarthritis (OA) Additional Family Medical History / Comment(s): Obesity. Joint replacements Medications and Allergies Home Medications Medication Instructions Recorded Confirmed Type Cyclobenzaprine [Flexeril] 10 mg PO HS PRN 11/29/13 12/16/17 History LORazepam [Ativan] 1 mg PO TID 11/29/13 12/16/17 History Lisinopril-Hctz 20-25 mg 1 each PO DAILY 11/29/13 12/16/17 History [Zestoretic 20-25] Hydrocodone/Acetaminophen [[place] 1 each PO Q6HR PRN #20 tab 05/15/14 12/16/17 Rx 5-325] Fluticasone/Salmeterol [Advair 1 inhalation PO RT-DAILY 06/24/14 12/16/17 History 100-50 Diskus] Anastrozole [Arimidex] 1 mg PO DAILY 09/30/14 12/16/17 History Insulin Aspart [NovoLOG] 30 units SQ AC-TID 12/16/17 12/16/17 History Insulin Detemir [Levemir Flextouch] 70 units SQ HS 12/16/17 12/16/17 History Naproxen Sodium [Aleve] 440 mg PO Q6HR 12/16/17 12/16/17 History diphenhydrAMINE HCL [Benadryl] 50 mg PO DAILY 12/16/17 12/16/17 History Allergies Allergy/AdvReac Type Severity Reaction Status Date / Time codeine Allergy Nausea & Verified 12/16/17 17:51 Vomiting Penicillins Allergy Rash/Hives Verified 12/16/17 17:51 phenobarbital AdvReac Unknown Verified 12/16/17 17:51 phenytoin sodium AdvReac Unknown Verified 12/16/17 17:51 [From Dilantin] phenytoin sodium extended AdvReac Unknown Verified 12/16/17 17:51 [From Dilantin] primidone [From Mysoline] AdvReac Unknown Verified 12/16/17 17:51 Physical Exam Vitals: Vital Signs Temp Pulse Pulse Resp BP BP Pulse Ox 12/17/17 07:00 82 13 100/74 96 12/17/17 06:45 82 13 124/78 97 12/17/17 06:30 80 13 106/73 96 12/17/17 06:15 85 15 124/84 96 12/17/17 06:00 79 13 112/70 97 12/17/17 05:45 79 12 97 12/17/17 05:30 80 13 103/68 98 12/17/17 05:00 80 13 116/71 98 12/17/17 04:45 82 13 105/75 97 12/17/17 04:30 78 14 95/65 97 12/17/17 04:15 80 16 99/62 98 12/17/17 04:00 82 15 78/60 98 12/17/17 03:45 79 14 96/64 97 12/17/17 03:30 82 13 143/71 95 12/17/17 03:20 84 16 82/59 95 12/17/17 03:00 78 14 93/52 96 12/17/17 02:30 81 15 111/70 98 12/17/17 02:00 84 14 116/81 97 12/17/17 01:30 EST 83 14 105/65 97 12/17/17 01:00 EST 84 14 105/64 97 12/17/17 00:30 82 16 105/75 96 12/17/17 00:00 82 16 113/66 96 12/16/17 23:40 98.1 F 86 16 120/69 97 12/16/17 23:18 98 F 88 16 90/58 94 L 12/16/17 23:00 87 16 79/61 93 L 12/16/17 22:30 90 16 109/58 86 L 12/16/17 22:00 95 16 82/49 100 12/16/17 21:30 92 22 102/59 96 12/16/17 21:00 93 16 89/56 95 12/16/17 20:30 98 14 99/82 90 L 12/16/17 20:00 110 H 23 102/56 96 12/16/17 19:30 106 H 21 12/16/17 19:00 106 H 20 103/73 12/16/17 18:30 100 18 99/57 91 L 12/16/17 18:11 99.3 F 12/16/17 18:00 101 H 16 106/67 91 L 12/16/17 17:35 103 H 16 106/67 93 L 12/16/17 17:30 104 H 25 H 94/55 93 L 12/16/17 17:00 106 H 15 128/62 94 L 12/16/17 16:31 100.8 F H 115 H 20 137/73 100 12/16/17 16:30 113 H 13 137/73 96 12/16/17 16:27 137/73 97 Intake and Output 12/16/17 12/17/17 12/17/17 23:59 06:59 14:59 Intake Total 1680.755 Output Total 275 Balance 1405.755 Intake: IV 1650 Cefepime 2 gm In Sodium 50 Chloride 0.9% 50 ml @ 100 mls/hr IVPB ONCE STA Rx# :[id number] Magnesium Sulfate-D5w Pmx 1 gm In Dextrose/Water 1 100ml.bag @ 100 mls/hr IVPB ONCE ONE Rx#: [id number] Sodium Chloride 0.9% 1, 600 000 ml @ 100 mls/hr IV . Q10H [facility] Rx#:[id number] Sodium Chloride 0.9% 1, 1000 000 ml @ 999 mls/hr IV . Q1H1M ONE Rx#:[id number] Intake, IV Titration 30.755 Amount Insulin Regular 100 unit 30.755 In Sodium Chloride 0.9% 100 ml @ Per Protocol IV .Q0M [facility] Rx#:[id number] Output: Urine 275 Uretheral ([place]) Other: Voiding Method Weight GENERAL EXAM GEN. APPEARANCE: alert, in no apparent distress HEAD EXAM: atraumatic, normocephalic, normal inspection EYE EXAM: No pallor. No icterus ENT EXAM: normal exam, mucous membranes moist NECK EXAM: No thyromegaly. No JVD. RESPIRATORY EXAM: Distant breath sounds positive bilaterally. No wheezes or crackles. CARDIOVASCULAR EXAM: S1 and S2 heard. No additional sounds. GI/ABDOMINAL EXAM: soft, normal bowel sounds. Absent: distended, tenderness, guarding, rebound, rigid EXTREMITIES EXAM: No edema. Positive for tenderness on touching. NEUROLOGICAL EXAM: alert, oriented X3, no focal neurological deficits. PSYCHIATRIC EXAM: Tearful. Not depressed. SKIN EXAM: warm, dry, intact, normal color. Absent: rash Results CBC & Chem 7: 12/17/17 04:48 12/17/17 04:48 Labs: Abnormal Lab Results - Last 24 Hours (Table) 12/16/17 12/16/17 12/16/17 Range/Units 16:33 16:33 16:33 WBC 11.0 H (3.8-10.6) k/uL RBC 3.44 L (3.80-5.40) m/uL Hgb 10.7 L (11.4-16.0) gm/dL Hct (34.0-46.0) % RDW 15.9 H (11.5-15.5) % Plt Count (150-450) k/uL Neutrophils # 9.4 H (1.3-7.7) k/uL Sodium 133 L (137-145) mmol/L Potassium 5.2 H (3.5-5.1) mmol/L Carbon Dioxide 18 L (22-30) mmol/L BUN 38 H (7-17) mg/dL Creatinine 2.15 H (0.52-1.04) mg/dL Glucose 425 H (74-99) mg/dL POC Glucose (mg/dL) (75-99) mg/dL Plasma Lactic Acid Vasile 6.4 H* (0.7-2.0) mmol/L Calcium (8.4-10.2) mg/dL Total Bilirubin 1.8 H (0.2-1.3) mg/dL AST 42 H (14-36) U/L Alkaline Phosphatase 146 H (38-126) U/L Troponin I (0.000-0.034) ng/mL Total Protein (6.3-8.2) g/dL Albumin (3.5-5.0) g/dL Urine Appearance (Clear) Urine Protein (Negative) Urine Glucose (UA) (Negative) Urine Blood (Negative) Ur Leukocyte Esterase (Negative) Urine RBC (0-5) /hpf Urine WBC (0-5) /hpf Urine WBC Clumps (None) /hpf Urine Bacteria (None) /hpf Hyaline Casts (0-2) /lpf 12/16/17 12/16/17 12/16/17 Range/Units 16:33 20:30 20:50 WBC (3.8-10.6) k/uL RBC (3.80-5.40) m/uL Hgb (11.4-16.0) gm/dL Hct (34.0-46.0) % RDW (11.5-15.5) % Plt Count (150-450) k/uL Neutrophils # (1.3-7.7) k/uL Sodium (137-145) mmol/L Potassium (3.5-5.1) mmol/L Carbon Dioxide (22-30) mmol/L BUN (7-17) mg/dL Creatinine (0.52-1.04) mg/dL Glucose (74-99) mg/dL POC Glucose (mg/dL) (75-99) mg/dL Plasma Lactic Acid Vasile 3.4 H* (0.7-2.0) mmol/L Calcium (8.4-10.2) mg/dL Total Bilirubin (0.2-1.3) mg/dL AST (14-36) U/L Alkaline Phosphatase (38-126) U/L Troponin I 0.115 H* (0.000-0.034) ng/mL Total Protein (6.3-8.2) g/dL Albumin (3.5-5.0) g/dL Urine Appearance Turbid H (Clear) Urine Protein 3+ H (Negative) Urine Glucose (UA) 3+ H (Negative) Urine Blood Large H (Negative) Ur Leukocyte Esterase Large H (Negative) Urine RBC >182 H (0-5) /hpf Urine WBC >182 H (0-5) /hpf Urine WBC Clumps Many H (None) /hpf Urine Bacteria Many H (None) /hpf Hyaline Casts 69 H (0-2) /lpf 12/16/17 12/17/17 12/17/17 Range/Units 23:39 04:48 04:48 WBC (3.8-10.6) k/uL RBC 2.77 L (3.80-5.40) m/uL Hgb 8.7 L D (11.4-16.0) gm/dL Hct 27.3 L (34.0-46.0) % RDW 15.9 H (11.5-15.5) % Plt Count 136 L (150-450) k/uL Neutrophils # (1.3-7.7) k/uL Sodium 133 L (137-145) mmol/L Potassium (3.5-5.1) mmol/L Carbon Dioxide (22-30) mmol/L BUN 40 H (7-17) mg/dL Creatinine 2.47 H (0.52-1.04) mg/dL Glucose 303 H (74-99) mg/dL POC Glucose (mg/dL) 394 H (75-99) mg/dL Plasma Lactic Acid Vasile (0.7-2.0) mmol/L Calcium 8.2 L (8.4-10.2) mg/dL Total Bilirubin (0.2-1.3) mg/dL AST (14-36) U/L Alkaline Phosphatase (38-126) U/L Troponin I (0.000-0.034) ng/mL Total Protein 6.1 L (6.3-8.2) g/dL Albumin 2.9 L (3.5-5.0) g/dL Urine Appearance (Clear) Urine Protein (Negative) Urine Glucose (UA) (Negative) Urine Blood (Negative) Ur Leukocyte Esterase (Negative) Urine RBC (0-5) /hpf Urine WBC (0-5) /hpf Urine WBC Clumps (None) /hpf Urine Bacteria (None) /hpf Hyaline Casts (0-2) /lpf 12/17/17 12/17/17 12/17/17 Range/Units 04:48 07:43 09:11 WBC (3.8-10.6) k/uL RBC (3.80-5.40) m/uL Hgb (11.4-16.0) gm/dL Hct (34.0-46.0) % RDW (11.5-15.5) % Plt Count (150-450) k/uL Neutrophils # (1.3-7.7) k/uL Sodium (137-145) mmol/L Potassium (3.5-5.1) mmol/L Carbon Dioxide (22-30) mmol/L BUN (7-17) mg/dL Creatinine (0.52-1.04) mg/dL Glucose (74-99) mg/dL POC Glucose (mg/dL) 297 H 357 H (75-99) mg/dL Plasma Lactic Acid Vasile (0.7-2.0) mmol/L Calcium (8.4-10.2) mg/dL Total Bilirubin (0.2-1.3) mg/dL AST (14-36) U/L Alkaline Phosphatase (38-126) U/L Troponin I 0.118 H* (0.000-0.034) ng/mL Total Protein (6.3-8.2) g/dL Albumin (3.5-5.0) g/dL Urine Appearance (Clear) Urine Protein (Negative) Urine Glucose (UA) (Negative) Urine Blood (Negative) Ur Leukocyte Esterase (Negative) Urine RBC (0-5) /hpf Urine WBC (0-5) /hpf Urine WBC Clumps (None) /hpf Urine Bacteria (None) /hpf Hyaline Casts (0-2) /lpf 12/17/17 12/17/17 12/17/17 Range/Units 09:57 10:54 11:52 WBC (3.8-10.6) k/uL RBC (3.80-5.40) m/uL Hgb (11.4-16.0) gm/dL Hct (34.0-46.0) % RDW (11.5-15.5) % Plt Count (150-450) k/uL Neutrophils # (1.3-7.7) k/uL Sodium (137-145) mmol/L Potassium (3.5-5.1) mmol/L Carbon Dioxide (22-30) mmol/L BUN (7-17) mg/dL Creatinine (0.52-1.04) mg/dL Glucose (74-99) mg/dL POC Glucose (mg/dL) 324 H 282 H 255 H (75-99) mg/dL Plasma Lactic Acid Vasile (0.7-2.0) mmol/L Calcium (8.4-10.2) mg/dL Total Bilirubin (0.2-1.3) mg/dL AST (14-36) U/L Alkaline Phosphatase (38-126) U/L Troponin I (0.000-0.034) ng/mL Total Protein (6.3-8.2) g/dL Albumin (3.5-5.0) g/dL Urine Appearance (Clear) Urine Protein (Negative) Urine Glucose (UA) (Negative) Urine Blood (Negative) Ur Leukocyte Esterase (Negative) Urine RBC (0-5) /hpf Urine WBC (0-5) /hpf Urine WBC Clumps (None) /hpf Urine Bacteria (None) /hpf Hyaline Casts (0-2) /lpf Microbiology - Last 24 Hours (Table) 12/16/17 20:50 Urine Culture - Preliminary Urine,Catheterized Thrombosis Risk Factor Assmnt - Choose All That Apply Each Factor Represents 1 point: Medical pt on bed rest, Obesity (BMI >25), Sepsis (< 1month), Swollen legs (current) Each Risk Factor Represents 2 Points: Age 61-74 years, Central venous access Thrombosis Risk Factor Assessment Total Risk Factor Score: 8 Thrombosis Risk Factor Assessment Level: High Risk Assessment and Plan Assessment: ASSESSMENT Septic shock secondary to UTI Metabolic acidosis- due to sepsis Transient syncopal episode secondary to SVT Hypovolemic hyponatremia Acute kidney injury secondary to sepsis COPD Type 2 diabetes mellitus with diabetic neuropathy Hypertension Hyperlipidemia Morbid obesity with BMI of 47.2 History of breast cancer status post mastectomy and chemotherapy Nicotine dependence-current every day smoker History of seizure disorder Moderate protein calorie malnutrition Plan: Patient is currently on Levophed at 3 mics per minute to maintain a map of about 60. Continue with cefepime for her UTI pending urine cultures. Patient has been started on insulin drip for better glycemic control in view of her ongoing sepsis. We will hold all nephrotoxic agents and blood pressure medications. We'll continue with morphine for her pain management. Overall prognosis is guarded. Further recommendations to follow depending on the progress of the patient.
[2017-12-17 13:26] LABS: Glucose,Whole Blood 232 mg/dL (75-99)
[2017-12-17 14:13] LABS: Glucose,Whole Blood 224 mg/dL (75-99)
[2017-12-17] MEDS: ONDANSETRON 4 MG/2 ML VIAL IVP PRN ×2 (15:00→22:19)
[2017-12-17 15:19] LABS: Glucose,Whole Blood 202 mg/dL (75-99)
--- NOTE | 2017-12-17 15:53 | CONS ---
CONSULTATION REASON FOR CONSULT: Renal failure. HISTORY OF PRESENT ILLNESS: Patient is a 67-year-old female who was admitted to the hospital with weakness. Patient also had fever. She was found to be hypotensive. Currently, she is maintained on Levophed. The UA is suggestive of urinary tract infection. Patient is also maintained on antibiotics. Urine output was significantly low initially. However, it seems to have picked up after fluid boluses. The patient denies any prior history of kidney diseases. PAST MEDICAL HISTORY: History of COPD, type 2 diabetes, fibromyalgia, hyperlipidemia, hypertension, rheumatoid arthritis, seizure disorder, SVT, history of breast cancer. PAST SURGICAL HISTORY: Mastectomy, cholecystectomy, appendectomy, adenoidectomy, tonsillectomy, tubal ligation, hysterectomy, and a mastectomy was on the right side. Dental extraction. SOCIAL HISTORY: Positive for smoking. No history of drug abuse or alcohol abuse. MEDICATIONS: Medications at home prior to admission included Flexeril, Ativan, Zestoretic, insulin, Aleve, Benadryl. ALLERGIES: Include CODEINE, PENICILLIN, PHENOBARBITAL. PENICILLIN causes rash and hives. DILANTIN and MYSOLINE. EXAMINATION: Patient is comfortable. She is awake. She is not in any acute distress. Blood pressure this morning was 124/78, heart rate 82 per minute. Patient is afebrile. Examination of the heart: S1, S2. Examination of the lungs: Bilateral breath sounds are heard. Abdomen is soft, nontender. Examination lower extremity shows no significant edema. TREASURY MANAGER exam is grossly intact. LABS: Revealed sodium 133, potassium 4.9, chloride 103, BUN 40, serum creatinine 2.47, hemoglobin 8.7 g/dL, white cell count 8.2, phosphorus 4.5, albumin 2.9. Troponin 0.118. The UA shows 3+ protein, 3+ glucose, WBCs more than 182, multiple hyaline casts. ASSESSMENT: 1. Acute kidney injury secondary to hypotension, underlying infection and sepsis, currently nonoliguric with improving urine output. Continue with IV fluids. 2. Urinary tract infection, maintained on cefepime. The patient also received 1 dose of vancomycin. I would avoid further doses of vancomycin given her acute kidney injury. 3. Mild hyponatremia secondary to renal failure. 4. Type 2 diabetes. 5. History of breast cancer, status post right mastectomy and chemotherapy. 6. History of chronic obstructive pulmonary disease. 7. Recent episode of SVT. PLAN: Continue cefepime. Hold off on vancomycin. Continue aggressive IV hydration. Repeat labs in a.m. Avoid any NSAIDs even after discharge. I did note that the patient was taking Aleve prior to her admission. Thank you for this consultation. We will continue to follow the patient with you during her hospitalization. DHAVAL / MOISÉS: [id number] /
[2017-12-17 16:36] LABS: Glucose,Whole Blood 201 mg/dL (75-99)
[2017-12-17 17:17] LABS: Glucose,Whole Blood 195 mg/dL (75-99)
[2017-12-17 18:21] LABS: Glucose,Whole Blood 178 mg/dL (75-99)
[2017-12-17] MEDS: ANASTROZOLE 1 MG TAB PO SCH (18:46)
[2017-12-17 19:24] LABS: Glucose,Whole Blood 186 mg/dL (75-99)
[2017-12-17 20:35] LABS: Glucose,Whole Blood 177 mg/dL (75-99)
[2017-12-17 21:26] LABS: Glucose,Whole Blood 191 mg/dL (75-99)
[2017-12-17] MEDS: INSULIN DETEMIR 100 UNIT/ML 10 ML VIAL SQ SCH (22:07)
[2017-12-17] MEDS: LORazepam 1 MG TAB PO SCH (22:08)
[2017-12-17 22:18] LABS: Glucose,Whole Blood 167 mg/dL (75-99)
[2017-12-18] MEDS: SODIUM CHLORIDE 0.9% 1,000 ML IV SCH ×3 (00:20→17:17)
[2017-12-18] MEDS: HEPARIN SODIUM,PORCINE 5,000 UNIT/ML 1 ML VIAL SQ SCH ×3 (01:20→17:15)
[2017-12-18 01:27] LABS: Glucose,Whole Blood 152 mg/dL (75-99)
[2017-12-18 03:37] LABS: Glucose,Whole Blood 127 mg/dL (75-99)
[2017-12-18 04:51] LABS: Glucose,Whole Blood 119 mg/dL (75-99)
[2017-12-18 05:37] LABS: Anisocytosis Slight; Basophils % (A) 1 %; Eosinophils # (A) 0.1 k/uL (0-0.7); Eosinophils % (A) 2 %; HGB 8.4 gm/dL (11.4-16.0); Hypochromasia Slight; Lymphocytes # (A) 1.6 k/uL (1.0-4.8); Lymphocytes % (A) 29 %; MCH 30.7 pg (25.0-35.0); MCHC 32.2 g/dL (31.0-37.0); MCV 95.3 fL (80.0-100.0); Mean Platelet Volume 7.9; Monocytes # (A) 0.5 k/uL (0-1.0); Monocytes % (A) 8 %; Neutrophils % (A) 56 %; Platelet Count 127 k/uL (150-450); Poikilocytosis Slight; RBC 2.73 m/uL (3.80-5.40); WBC 5.4 k/uL (3.8-10.6)
[2017-12-18 05:46] LABS: Albumin 2.8 g/dL (3.5-5.0); Calcium 8.2 mg/dL (8.4-10.2); Phosphorus 4.4 mg/dL (2.5-4.5); Total Bilirubin 0.9 mg/dL (0.2-1.3)
[2017-12-18 06:16] LABS: Glucose,Whole Blood 130 mg/dL (75-99)
[2017-12-18 07:14] LABS: Glucose,Whole Blood 136 mg/dL (75-99)
--- NOTE | 2017-12-18 08:03 | PN ---
PROGRESS NOTE Mrs. Zuniga is a 67-year-old female with a history of diabetes and hypertension who presented with symptoms of progressive fatigue and weakness and was noted to be septic with urinary sepsis. She feels better today. She is in sinus mechanism. She has no evidence of tachycardia or bradycardia. Hemodynamically, she is stable. She is afebrile. She has no evidence of ventricular ectopic activity. She is awake and feels better overall. Her medications include aspirin once a day, Lipitor 40 mg daily. PHYSICAL EXAMINATION: Blood pressure is running in the high 90s to low 100s with the heart rate in the 80s. LUNGS: No wheezes or rales. HEART: Regular rate and rhythm. S1, S2. No S3. No rub appreciated. ABDOMEN: Soft, nontender. EXTREMITIES: No significant edema. LAB DATA: Her lab data revealed a BUN and creatinine 42 and 2.37, potassium 5.0. Hemoglobin of 8.4, which has dropped slightly. IMPRESSION: 1. Urosepsis, hemodynamically stable at this time. 2. Renal failure, could be acute kidney injury. 3. Diabetes mellitus. 4. Hypertension by history. 5. History of hyperlipidemia. 6. History of breast cancer. RECOMMENDATION: From the cardiac standpoint, we will continue present therapy. We will obtain echocardiogram with Doppler. We will follow her renal function and depending on her progress, further recommendation will be made. MMODL / IJN: [id number] /
[2017-12-18 08:08] LABS: Glucose,Whole Blood 193 mg/dL (75-99)
--- NOTE | 2017-12-18 08:51 | P.PN ---
Subjective Progress Note Date: 12/18/17 Principal diagnosis: Septic shock secondary to urinary tract infection, cultures pending This is 67-year-old white female patient of Dr. Delcid, who presented to the emergency department on 12/16/2017 for evaluation of fever, chills, pain in her bilateral feet, patient does have underlying history of diabetes mellitus, with diabetic neuropathy. Patient had some nausea, but no vomiting, no shortness of breath, no cough, no phlegm production. She denied any abdominal pain, no back pain. Denied any urinary symptoms. Past medical history is significant for hypertension, hyperlipidemia, seizure disorder, and patient has not had seizure episodes in a long time, history of right-sided breast cancer status post right mastectomy, and chemotherapy. Patient is on Arimidex currently. She is a current every day smoker, half a pack a day for 46 years. She denies any underlying chronic lung condition. She denies any previous history of myocardial infarction, or congestive heart failure, no past history of chronic kidney disease. She states she was recently diagnosed with diabetes by Dr. Delcid, and she was started initially on metformin, however she could not tolerate it, and she is currently on a combination of Levemir and NovoLog. Patient did have fevers on presentation, with a temp of 100.8F, she was tachycardic with a rate in the 115 BPM. EKG showed normal sinus rhythm with an incomplete right bundle branch block pattern. No acute ischemic changes. Chest x-ray showed no acute cardiopulmonary process. Labs showed a CBC of 11.0 , hemoglobin of 10.7, sodium was 133, potassium is 5.2, patient had an anion gap metabolic acidosis, with CO2 of 18, BUN was 38, creatinine is 2.15. Lactic acid was elevated at 6.4, patient was given 2 L of IV fluid boluses of of 0.9 normal saline, and was started on maintenance IV fluids of 0.9 normal saline at 150 ML per hour, troponin was elevated 0.115. Patient denied any chest pain. Urinalysis showed large amount of leuk trase, red blood cells white blood cells , many bacteria. While in the emergency department, patient developed an episode of SVT, she had an episode of syncope lasting about 30 seconds, patient' s episode of SVT lasted for several seconds and subsequently patient went back into sinus rhythm. Magnesium level was 1.7, patient was given magnesium replacements. Blood and urine cultures were collected and sent, and are pending at this time, patient was started on broad-spectrum antibiotics including cefepime and vancomycin. This morning patient is seen in the intensive care unit, she is awake and alert, oriented 3, in no acute distress. No fevers overnight, maintenance IV fluid is 0.9 normal seen at a rate of 150 ML per hour, she is on levo fed currently at 3 mics per minute, she is oliguric , we will give the patient additional liter bolus of 0.9 normal saline. Cultures are pending. Patient had a left IJ triple-lumen central line catheter placed in the emergency department, follow-up chest x-ray this morning showed no acute cardiopulmonary process, and left internal jugular catheter is in the appropriate position with its tip in the superior vena cava. Lactic acid level on this morning is down to 1.2. On 12/18/2017 patient seen in follow-up in the intensive care unit, she is awake and alert, oriented 3, she did complain of been a bit lightheaded this morning, she didn't feel like she was going to pass out however there has been no recurrent episodes of syncope since the one episode in the emergency room which was likely precipitated by SVT. No recurrence of SVT on the monitor, patient remains in sinus rhythm with a controlled rate, she is hemodynamically stable, her levo fed has been on hold since 345 in the morning. Current IV fluids this 0.9 normal saline at a rate of 100 ML per hour, insulin drip is on hold. Complains of chest pain, no shortness of breath, pulse ox on 2 L per nasal cannula was 99%, afebrile, blood and urine cultures are pending, patient is on empiric antibiotics including cefepime and vancomycin. Today's labs have been reviewed, the WBCs 5.4, hemoglobin is 8.4, serum sodium is 131, potassium is 5.0, CO2 is 19, BUN is 42, creatinine is 2.37. Patient has had no recurrent episodes of syncope, she does have a remote history of seizures, however he has not had any seizure in the last 25 years, she is to follow with the neurologist in [place], however she is not able to take certain antiepileptic medications including Dilantin, and phenobarbital. We'll continue with current medical treatment. Objective - Vital Signs Vital signs: Vital Signs Temp 98 F 12/18/17 04:00 Pulse 84 12/18/17 07:15 Resp 15 12/18/17 07:15 BP 109/66 12/18/17 07:15 Pulse Ox 99 12/18/17 07:15 Intake & Output 12/17/17 12/18/17 12/18/17 18:59 06:59 18:59 Intake Total 2455.797 1301.132 100 Output Total 520 520 50 Balance 1935.797 781.132 50 Weight 139 kg Intake: IV 2370 1100 100 Cefepime 2 gm In Sodium 50 Chloride 0.9% 50 ml @ 100 mls/hr IVPB ONCE STA Rx# :[id number] Flush with lab draws 20 Sodium Chloride 0.9% 1, 1300 1100 100 000 ml @ 100 mls/hr IV . Q10H ROS Rx#:[id number] Sodium Chloride 0.9% 1, 1000 000 ml @ 999 mls/hr IV . Q1H1M ONE Rx#:[id number] Intake, IV Titration 85.797 51.132 Amount Insulin Regular 100 unit 60.853 43.221 In Sodium Chloride 0.9% 100 ml @ Per Protocol IV .Q0M ROS Rx#:[id number] Norepinephrine 16 mg In 24.944 7.911 Sodium Chloride 0.9% 250 ml @ Titrate IV .Q0M ROS Rx#:[id number] Oral 150 Output: Urine 520 520 50 Other: Voiding Method Indwelling Catheter Indwelling Catheter - Exam GENERAL EXAM: Alert, pleasant 67-year-old obese white female comfortable in no apparent distress. HEAD: Normocephalic/atraumatic. EYES: Normal reaction of pupils, equal size. Conjunctiva pink, sclera white. NOSE: Clear with pink turbinates. THROAT: No erythema or exudates. NECK: No masses, no JVD, no thyroid enlargement, no adenopathy. CHEST: No chest wall deformity. Symmetrical expansion. LUNGS: Equal air entry with crackles over bilateral lower bases posteriorly CVS: Regular rate and rhythm, distant heart sounds, normal S1 and S2, no gallops , no murmurs, no rubs ABDOMEN: Soft, nontender. No hepatosplenomegaly, normal bowel sounds, no guarding or rigidity. EXTREMITIES: No clubbing, no edema, no cyanosis, 2+ pulses and upper and lower extremities. MUSCULOSKELETAL: Muscle strength and tone normal. SPINE: No scoliosis or deformity SKIN: No rashes CENTRAL NERVOUS SYSTEM: Alert and oriented -3. No focal deficits, tone is normal in all 4 extremities. PSYCHIATRIC: Alert and oriented -3. Appropriate affect. Intact judgment and insight. - Labs CBC & Chem 7: 12/18/17 04:35 12/18/17 04:35 Labs: Abnormal Lab Results - Last 24 Hours (Table) 12/17/17 12/17/17 12/17/17 Range/Units 04:48 09:11 09:57 RBC (3.80-5.40) m/uL Hgb (11.4-16.0) gm/dL Hct (34.0-46.0) % RDW (11.5-15.5) % Plt Count (150-450) k/uL Sodium (137-145) mmol/L Carbon Dioxide (22-30) mmol/L BUN (7-17) mg/dL Creatinine (0.52-1.04) mg/dL Glucose (74-99) mg/dL POC Glucose (mg/dL) 357 H 324 H (75-99) mg/dL Calcium (8.4-10.2) mg/dL Troponin I 0.118 H* (0.000-0.034) ng/mL Total Protein (6.3-8.2) g/dL Albumin (3.5-5.0) g/dL 12/17/17 12/17/17 12/17/17 Range/Units 10:54 11:52 13:14 RBC (3.80-5.40) m/uL Hgb (11.4-16.0) gm/dL Hct (34.0-46.0) % RDW (11.5-15.5) % Plt Count (150-450) k/uL Sodium (137-145) mmol/L Carbon Dioxide (22-30) mmol/L BUN (7-17) mg/dL Creatinine (0.52-1.04) mg/dL Glucose (74-99) mg/dL POC Glucose (mg/dL) 282 H 255 H 232 H (75-99) mg/dL Calcium (8.4-10.2) mg/dL Troponin I (0.000-0.034) ng/mL Total Protein (6.3-8.2) g/dL Albumin (3.5-5.0) g/dL 12/17/17 12/17/17 12/17/17 Range/Units 14:01 15:07 15:55 RBC (3.80-5.40) m/uL Hgb (11.4-16.0) gm/dL Hct (34.0-46.0) % RDW (11.5-15.5) % Plt Count (150-450) k/uL Sodium (137-145) mmol/L Carbon Dioxide (22-30) mmol/L BUN (7-17) mg/dL Creatinine (0.52-1.04) mg/dL Glucose (74-99) mg/dL POC Glucose (mg/dL) 224 H 202 H (75-99) mg/dL Calcium (8.4-10.2) mg/dL Troponin I 0.063 H* (0.000-0.034) ng/mL Total Protein (6.3-8.2) g/dL Albumin (3.5-5.0) g/dL 12/17/17 12/17/17 12/17/17 Range/Units 16:23 17:06 18:09 RBC (3.80-5.40) m/uL Hgb (11.4-16.0) gm/dL Hct (34.0-46.0) % RDW (11.5-15.5) % Plt Count (150-450) k/uL Sodium (137-145) mmol/L Carbon Dioxide (22-30) mmol/L BUN (7-17) mg/dL Creatinine (0.52-1.04) mg/dL Glucose (74-99) mg/dL POC Glucose (mg/dL) 201 H 195 H 178 H (75-99) mg/dL Calcium (8.4-10.2) mg/dL Troponin I (0.000-0.034) ng/mL Total Protein (6.3-8.2) g/dL Albumin (3.5-5.0) g/dL 12/17/17 12/17/17 12/17/17 Range/Units 19:12 20:18 21:13 RBC (3.80-5.40) m/uL Hgb (11.4-16.0) gm/dL Hct (34.0-46.0) % RDW (11.5-15.5) % Plt Count (150-450) k/uL Sodium (137-145) mmol/L Carbon Dioxide (22-30) mmol/L BUN (7-17) mg/dL Creatinine (0.52-1.04) mg/dL Glucose (74-99) mg/dL POC Glucose (mg/dL) 186 H 177 H 191 H (75-99) mg/dL Calcium (8.4-10.2) mg/dL Troponin I (0.000-0.034) ng/mL Total Protein (6.3-8.2) g/dL Albumin (3.5-5.0) g/dL 12/17/17 12/18/17 12/18/17 Range/Units 22:05 01:13 03:25 RBC (3.80-5.40) m/uL Hgb (11.4-16.0) gm/dL Hct (34.0-46.0) % RDW (11.5-15.5) % Plt Count (150-450) k/uL Sodium (137-145) mmol/L Carbon Dioxide (22-30) mmol/L BUN (7-17) mg/dL Creatinine (0.52-1.04) mg/dL Glucose (74-99) mg/dL POC Glucose (mg/dL) 167 H 152 H 127 H (75-99) mg/dL Calcium (8.4-10.2) mg/dL Troponin I (0.000-0.034) ng/mL Total Protein (6.3-8.2) g/dL Albumin (3.5-5.0) g/dL 12/18/17 12/18/17 12/18/17 Range/Units 04:35 04:35 04:39 RBC 2.73 L (3.80-5.40) m/uL Hgb 8.4 L (11.4-16.0) gm/dL Hct 26.0 L (34.0-46.0) % RDW 16.0 H (11.5-15.5) % Plt Count 127 L (150-450) k/uL Sodium 131 L (137-145) mmol/L Carbon Dioxide 19 L (22-30) mmol/L BUN 42 H (7-17) mg/dL Creatinine 2.37 H (0.52-1.04) mg/dL Glucose 110 H (74-99) mg/dL POC Glucose (mg/dL) 119 H (75-99) mg/dL Calcium 8.2 L (8.4-10.2) mg/dL Troponin I (0.000-0.034) ng/mL Total Protein 6.0 L (6.3-8.2) g/dL Albumin 2.8 L (3.5-5.0) g/dL 12/18/17 12/18/17 12/18/17 Range/Units 06:05 07:03 07:57 RBC (3.80-5.40) m/uL Hgb (11.4-16.0) gm/dL Hct (34.0-46.0) % RDW (11.5-15.5) % Plt Count (150-450) k/uL Sodium (137-145) mmol/L Carbon Dioxide (22-30) mmol/L BUN (7-17) mg/dL Creatinine (0.52-1.04) mg/dL Glucose (74-99) mg/dL POC Glucose (mg/dL) 130 H 136 H 193 H (75-99) mg/dL Calcium (8.4-10.2) mg/dL Troponin I (0.000-0.034) ng/mL Total Protein (6.3-8.2) g/dL Albumin (3.5-5.0) g/dL Microbiology - Last 24 Hours (Table) 12/16/17 16:33 Blood Culture - Preliminary Blood No Growth after 24 hours 12/16/17 20:50 Urine Culture - Preliminary Urine,Catheterized Assessment and Plan Plan: Assessment: #1. Septic shock secondary to urinary tract infection, cultures pending #2. Anion gap metabolic acidosis secondary to lactic acidosis related to sepsis #3. Episode of SVT, she has spontaneously converted back to sinus rhythm #4. Transient episode of syncope, likely secondary to SVT #5. Acute kidney injury likely related to hypotension, and steroid use #6. Mild hyponatremia, likely secondary to hypovolemia #7. Hyperglycemia likely induced by sepsis #8. Diabetes mellitus type 2 with diabetic neuropathy #9. Hypertension, hyperlipidemia #10. History of SVT #11. History of right breast cancer, status post mastectomy and chemotherapy #12. Current every day smoker, patient carries a 46-year smoking history, smoking half a pack a day #13. COPD #14. Seizure disorder #15. Chronic anemia Plan: Patient has been adequately fluid resuscitated, levofed has been on hold, she is hemodynamically stable, no fever, no chills, no chest pain or shortness of breath. Cultures are still pending at this time, continue current antibiotic coverage including cefepime and vancomycin. Chest x-ray has been reviewed by Dr. Leahy, and showed no acute pulmonary findings, today's labs have been noted. Continue current medical treatment, if patient remains hemodynamically stable, we will consider moving the patient out of the intensive care unit today. Continue to follow I performed a history & physical examination of the patient and discussed their management with my nurse practitioner, Yesica Velázquez. I reviewed the nurse practitioner's note and agree with the documented findings and plan of care. Lung sounds are positive for crackles over bilateral lower bases. The findings and the impression was discussed with the patient. I attest to the documentation by the nurse practitioner. Time with Patient: Greater than 30
[2017-12-18 09:00] LABS: Glucose,Whole Blood 248 mg/dL (75-99)
[2017-12-18] MEDS: PANTOPRAZOLE 40 MG/10 ML VIAL IV SCH (09:11)
[2017-12-18] MEDS: LORazepam 1 MG TAB PO SCH ×3 (09:11→21:07)
[2017-12-18] MEDS: ANASTROZOLE 1 MG TAB PO SCH (09:11)
[2017-12-18] MEDS: ASPIRIN 81 MG PO SCH (09:11)
[2017-12-18] MEDS: ATORVASTATIN 40 MG TAB PO SCH (09:11)
[2017-12-18] MEDS: CEFEPIME 2 GM in SODIUM CHLORIDE 0.9% 50 ML IVPB SCH (09:12)
--- NOTE | 2017-12-18 09:36 | ECHOF ---
Referral Reason:htn MEASUREMENTS -------- HEIGHT: 165.1 cm WEIGHT: 138.3 kg BP: 116/72 RVIDd: 3.8 cm (< 3.3) IVSd: 1.3 cm (0.6 - 1.1) LVIDd: 4.2 cm (3.9 - 5.3) LVPWd: 1.8 cm (0.6 - 1.1) IVSs: 1.7 cm LVIDs: 3.3 cm LVPWs: 1.6 cm LA Diam: 3.7 cm (2.7 - 3.8) Ao Diam: 2.8 cm (2.0 - 3.7) AV Cusp: 1.2 cm (1.5 - 2.6) LA Diam: 3.8 cm (2.7 - 3.8) MV EXCURSION: 18.959 mm (> 18.000) MV EF SLOPE: 65 mm/s (70 - 150) EPSS: 0.5 cm MV E Kamaljit: 0.76 m/s MV DecT: 270 ms MV A Kamaljit: 0.97 m/s MV E/A Ratio: 0.78 AV maxP.38 mmHg AV meanP.26 mmHg RAP: 20.00 mmHg RVSP: 69.22 mmHg FINDINGS -------- Sinus rhythm. This was a technically adequate study. Morbid Obesity The left ventricular size is normal. Left ventricular wall thickness is normal. Overall left vent ricular systolic function is mildly impaired with, an EF between 45 - 50 %. The right ventricle is severely enlarged. The right ventricular septal wall is flattened in diastol e and systole which is consistent with right ventricular volume and pressure overload. The left atrial size is normal. The right atrial size is normal. There is mild aortic valve sclerosis. There is mild aortic stenosis present. Peak/mean gradient a cross the Aortic Valve is 27.38mmHg / 14.26mmHg. Mild mitral regurgitation is present. Moderate tricuspid regurgitation present. There is moderate to severe pulmonary hypertension. The right ventricular systolic pressure, as measured by Doppler, is 69.22mmHg. There is no pulmonic regurgitation present. The aortic root size is normal. There is a trivial pericardial effusion present. CONCLUSIONS -------- 1. Morbid Obesity 2. The left ventricular size is normal. 3. Left ventricular wall thickness is normal. 4. Overall left ventricular systolic function is mildly impaired with, an EF between 45 - 50 %. 5. The right ventricle is severely enlarged. 6. The right ventricular septal wall is flattened in diastole and systole which is consistent with r ight ventricular volume and pressure overload. 7. The left atrial size is normal. 8. The right atrial size is normal. 9. There is mild aortic valve sclerosis. 10. There is mild aortic stenosis present. 11. Peak/mean gradient across the Aortic Valve is 27.38mmHg / 14.26mmHg. 12. Mild mitral regurgitation is present. 13. Moderate tricuspid regurgitation present. 14. There is moderate to severe pulmonary hypertension. 15. The right ventricular systolic pressure, as measured by Doppler, is 69.22mmHg. 16. There is no pulmonic regurgitation present. 17. The aortic root size is normal. 18. There is a trivial pericardial effusion present. FINISHING DEPARTMENT SUPERVISOR: Aga Gayle RDCS
[2017-12-18 10:16] LABS: Glucose,Whole Blood 252 mg/dL (75-99)
[2017-12-18] MEDS: MORPHINE SULFATE 2 MG/ML SYRINGE IV PRN ×4 (10:21→22:38)
--- NOTE | 2017-12-18 10:40 | XR ---
EXAMINATION TYPE: XR chest 1V DATE OF EXAM: 12/18/2017 COMPARISON: Prior chest x-ray dated 12/17/2017 HISTORY: Shortness of breath TECHNIQUE: Single frontal view of the chest is obtained. FINDINGS: Left jugular central venous catheter shows the distal tip overlying superior vena cava. Th ere is no evident pneumothorax or pleural effusion. Heart is enlarged and stable. Pulmonary vasculari ty and cornel are unchanged. Patient is rotated. IMPRESSION: Stable cardiomegaly.
[2017-12-18 10:51] LABS: Hemoglobin A1C 10.7 % (4.0-6.0)
[2017-12-18 12:10] LABS: Glucose,Whole Blood 208 mg/dL (75-99)
[2017-12-18 13:10] LABS: Glucose,Whole Blood 182 mg/dL (75-99)
[2017-12-18 14:25] LABS: Glucose,Whole Blood 182 mg/dL (75-99)
[2017-12-18 15:08] LABS: Glucose,Whole Blood 206 mg/dL (75-99)
--- NOTE | 2017-12-18 16:34 | PN ---
PROGRESS NOTE Patient is seen for followup for acute kidney injury. She was admitted with urinary tract infection, hypotension and sepsis. Patient is maintained on IV fluids. Serum creatinine has improved slightly from 2.47 yesterday to 2.37. Patient has had good urine output. Levophed is currently off. On examination today, patient is comfortable. Blood pressure 113/80, heart rate 84 per minute. She is afebrile. EXAMINATION OF THE HEART: S1, S2. EXAMINATION OF LUNGS: Bilateral breath sounds are heard. ABDOMEN: Soft, non-tender. Examination of lower extremities shows no significant edema. Chronic skin changes are noted. SENIOR CONSULTANT exam shows patient is moving all 4 extremities. Labs show sodium 131, potassium 5.0, chloride 105, BUN 42, serum creatinine 2.37, hemoglobin 8.4 g/dL, phosphorus 4.4, magnesium 2.0, calcium 8.2. Vancomycin trough was 10.7. ASSESSMENT: 1. Acute kidney injury secondary to sepsis and hypotension, currently nonoliguric, with some improvement in her serum creatinine. I will continue with IV hydration. Patient was also on NSAIDs prior to admission, which are now discontinued. The patient was on Aleve. 2. Urine tract infection, maintained on cefepime, status post one dose of vancomycin. 3. History of chronic obstructive pulmonary disease. 4. Type 2 diabetes. 5. Recent episode of supraventricular tachycardia, being followed by Cardiology, currently hemodynamically stable. PLAN: Continue IV fluids. Continue to avoid nephrotoxic agents and repeat labs in a.m. MMODL / IJN: [id number] /
[2017-12-18] MEDS: INSULIN ASPART 100 UNIT/ML 1 ML 10 ML VIAL SQ SCH ×3 (17:13→21:07)
[2017-12-18 17:20] LABS: Glucose,Whole Blood 171 mg/dL (75-99)
[2017-12-18 18:12] LABS: Glucose,Whole Blood 192 mg/dL (75-99)
[2017-12-18] MEDS: ONDANSETRON 4 MG/2 ML VIAL IVP PRN (18:38)
[2017-12-18] MEDS: INSULIN DETEMIR 100 UNIT/ML 10 ML VIAL SQ SCH (21:07)
[2017-12-18 21:08] LABS: Glucose,Whole Blood 151 mg/dL (75-99)
--- NOTE | 2017-12-18 22:21 | P.PN ---
Subjective Progress Note Date: 12/18/17 Principal diagnosis: Sepsis/septic shock secondary to urinary tract infection Mrs. Zuniga is a 67-year-old female with a past medical history of type 2 diabetes mellitus, diabetic neuropathy, COPD, hyperlipidemia, hypertension, rheumatoid arthritis, seizure disorder coming to the hospital with a chief complaint of fever chills and increased pain in her bilateral feet for the past couple of days. Patient states that she was seen by Dr. Delcid on and had few tests done but she is not sure what was done. Patient also had some nausea but did not have any abdominal pain. Patient was also having cramping sensation in her bilateral feet. She states that she was recently diagnosed with diabetes and could not tolerate metformin and so was started on combination of Levemir and NovoLog. Patient denies having any chest pain or palpitations. No cough or difficulty in breathing. Patient denies having any increased frequency of urination or dysuria or hematuria. In the emergency department patient had a temperature of 100.8 and was also found to be tachycardic and tachypneic. EKG was showing incomplete right bundle branch block. UA was positive for large leukocyte esterase with increased WBC count. Patient also had an elevated lactic acid at 6.4. She was given 2 L of IV fluid boluses, her blood pressure was still on the lower side so admitted to the ICU. She also had an episode of V. tach that lasted about a few seconds with a mild syncopal episode. Patient had urine cultures and blood cultures and that is currently pending. As the patient's blood pressure was still on the lower side she was started on Levophed. Broad-spectrum antibiotics in the form of vancomycin and cefepime have been started. Patient is currently in the ICU. This morning patient was lying in bed appears to be in no acute distress. Patient states that she still has cramping in her bilateral feet. She mentions that she has diabetic neuropathy and Dr. Delcid has been taking care of her. Patient denies having any chest pain or difficulty in breathing. She denies having any urinary symptoms. On 12/18/2017 Patient is currently more awake and oriented. Patient is currently off pressor support. Continued on IV fluids. Patient was started back on insulin regimen and is tolerating oral diet. Blood cultures and urine cultures are pending. Patient is on broad-spectrum antibiotics in the form of cefepime and vancomycin. No complaints of syncope or dizziness. No fever no chills. No other acute overnight issues. All other review of systems negative except the above Active Medications Generic Name Dose Route Start Last Admin Trade Name Freq PRN Reason Stop Dose Admin Acetaminophen 650 mg 12/17/17 01:53 EST Tylenol Tab PO Q4HR PRN Fever and/or Mild Pain Anastrozole 1 mg 12/17/17 18:15 12/18/17 09:11 Arimidex PO 1 mg DAILY ROS Administration Aspirin 81 mg 12/17/17 09:45 12/18/17 09:11 Aspirin PO 81 mg DAILY ROS Administration Atorvastatin Calcium 40 mg 12/17/17 09:45 12/18/17 09:11 Lipitor PO Not Given DAILY ROS Heparin Sodium (Porcine) 5,000 unit 12/17/17 00:00 12/18/17 17:15 Heparin SQ 5,000 unit Q8HR ROS Administration Norepinephrine Bitartrate 16 250 mls @ 0 mls/hr 12/16/17 23:00 12/18/17 03:40 mg/ Sodium Chloride IV 0 mcg/min .Q0M ROS 0 mls/hr Titration Protocol Titrate Sodium Chloride 1,000 mls @ 100 mls/hr 12/17/17 00:50 12/18/17 17:17 Saline 0.9% IV 100 mls/hr .Q10H ROS Administration Cefepime HCl 2 gm/ Sodium 50 mls @ 100 mls/hr 12/17/17 09:00 12/18/17 09:12 Chloride IVPB 100 mls/hr Q24HR ROS Administration Insulin Aspart 20 unit 12/18/17 17:30 12/18/17 17:13 Novolog SQ 20 unit AC-TID ROS Administration Insulin Aspart 0 unit 12/18/17 17:30 12/18/17 21:07 Novolog SQ 2 unit ACHS ROS Administration Protocol Insulin Detemir 70 unit 12/17/17 21:00 12/18/17 21:07 Levemir SQ 70 unit HS ROS Administration Lorazepam 1 mg 12/17/17 22:00 12/18/17 21:07 Ativan PO 1 mg TID ROS Administration Morphine Sulfate 4 mg 12/17/17 00:50 12/17/17 02:29 Morphine Sulfate (Inj) IV 4 mg Q4HR PRN Administration Pain Scale 8 to 9 Morphine Sulfate 2 mg 12/17/17 00:50 12/18/17 18:38 Morphine Sulfate (Inj) IV 2 mg Q4H PRN Administration Pain Scale 4 to 5 Naloxone HCl 0.2 mg 12/17/17 01:53 EST Narcan IV Q2M PRN Opioid Reversal Ondansetron HCl 4 mg 12/17/17 15:16 12/18/17 18:38 Zofran IVP 4 mg Q6HR PRN Administration Nausea And Vomiting Pantoprazole Sodium 40 mg 12/16/17 20:15 12/18/17 09:11 Protonix IV 40 mg DAILY ROS Administration Objective - Vital Signs Vital signs: Vital Signs Temp 97.6 F 12/18/17 12:00 Pulse 85 12/18/17 16:01 Resp 18 12/18/17 16:01 BP 98/61 12/18/17 16:01 Pulse Ox 93 L 12/18/17 16:01 Intake & Output 12/17/17 12/18/17 12/18/17 18:59 06:59 18:59 Intake Total 2455.797 8357.103 0526.24 Output Total 520 520 880 Balance 1935.797 781.132 794.24 Weight 139 kg 139 kg Intake: IV 2370 1100 1050 Cefepime 2 gm In Sodium 50 Chloride 0.9% 50 ml @ 100 mls/hr IVPB ONCE [facility] Rx# :[id number] Cefepime 2 gm In Sodium 50 Chloride 0.9% 50 ml @ 100 mls/hr IVPB Q24HR [facility] Rx #:[id number] Flush with lab draws 20 Sodium Chloride 0.9% 1, 1300 1100 1000 000 ml @ 100 mls/hr IV . Q10H [facility] Rx#:[id number] Sodium Chloride 0.9% 1, 1000 000 ml @ 999 mls/hr IV . Q1H1M [facility] Rx#:[id number] Intake, IV Titration 85.797 51.132 24.24 Amount Insulin Regular 100 unit 60.853 43.221 24.24 In Sodium Chloride 0.9% 100 ml @ Per Protocol IV .Q0M [facility] Rx#:[id number] Norepinephrine 16 mg In 24.944 7.911 Sodium Chloride 0.9% 250 ml @ Titrate IV .Q0M [facility] Rx#:[id number] Oral 150 600 Output: Urine 520 520 880 Other: Voiding Method Indwelling Catheter Indwelling Catheter Indwelling Catheter - Exam GEN. APPEARANCE: alert, in no apparent distress HEAD EXAM: atraumatic, normocephalic, normal inspection EYE EXAM: No pallor. No icterus ENT EXAM: normal exam, mucous membranes moist NECK EXAM: No thyromegaly. No JVD. RESPIRATORY EXAM: Distant breath sounds positive bilaterally. No wheezes or crackles. CARDIOVASCULAR EXAM: S1 and S2 heard. No additional sounds. GI/ABDOMINAL EXAM: soft, normal bowel sounds. Absent: distended, tenderness, guarding, rebound, rigid EXTREMITIES EXAM: No edema. Positive for tenderness on touching. NEUROLOGICAL EXAM: alert, oriented X3, no focal neurological deficits. PSYCHIATRIC EXAM: Tearful. Not depressed. SKIN EXAM: warm, dry, intact, normal color. Absent: rash - Labs CBC & Chem 7: 12/18/17 04:35 12/18/17 04:35 Labs: Abnormal Lab Results - Last 24 Hours (Table) 12/17/17 12/17/17 12/17/17 Range/Units 04:48 18:09 19:12 RBC (3.80-5.40) m/uL Hgb (11.4-16.0) gm/dL Hct (34.0-46.0) % RDW (11.5-15.5) % Plt Count (150-450) k/uL Sodium (137-145) mmol/L Carbon Dioxide (22-30) mmol/L BUN (7-17) mg/dL Creatinine (0.52-1.04) mg/dL Glucose (74-99) mg/dL POC Glucose (mg/dL) 178 H 186 H (75-99) mg/dL Hemoglobin A1c 10.7 H (4.0-6.0) % Calcium (8.4-10.2) mg/dL Total Protein (6.3-8.2) g/dL Albumin (3.5-5.0) g/dL 12/17/17 12/17/17 12/17/17 Range/Units 20:18 21:13 22:05 RBC (3.80-5.40) m/uL Hgb (11.4-16.0) gm/dL Hct (34.0-46.0) % RDW (11.5-15.5) % Plt Count (150-450) k/uL Sodium (137-145) mmol/L Carbon Dioxide (22-30) mmol/L BUN (7-17) mg/dL Creatinine (0.52-1.04) mg/dL Glucose (74-99) mg/dL POC Glucose (mg/dL) 177 H 191 H 167 H (75-99) mg/dL Hemoglobin A1c (4.0-6.0) % Calcium (8.4-10.2) mg/dL Total Protein (6.3-8.2) g/dL Albumin (3.5-5.0) g/dL 12/18/17 12/18/17 12/18/17 Range/Units 01:13 03:25 04:35 RBC 2.73 L (3.80-5.40) m/uL Hgb 8.4 L (11.4-16.0) gm/dL Hct 26.0 L (34.0-46.0) % RDW 16.0 H (11.5-15.5) % Plt Count 127 L (150-450) k/uL Sodium (137-145) mmol/L Carbon Dioxide (22-30) mmol/L BUN (7-17) mg/dL Creatinine (0.52-1.04) mg/dL Glucose (74-99) mg/dL POC Glucose (mg/dL) 152 H 127 H (75-99) mg/dL Hemoglobin A1c (4.0-6.0) % Calcium (8.4-10.2) mg/dL Total Protein (6.3-8.2) g/dL Albumin (3.5-5.0) g/dL 12/18/17 12/18/17 12/18/17 Range/Units 04:35 04:39 06:05 RBC (3.80-5.40) m/uL Hgb (11.4-16.0) gm/dL Hct (34.0-46.0) % RDW (11.5-15.5) % Plt Count (150-450) k/uL Sodium 131 L (137-145) mmol/L Carbon Dioxide 19 L (22-30) mmol/L BUN 42 H (7-17) mg/dL Creatinine 2.37 H (0.52-1.04) mg/dL Glucose 110 H (74-99) mg/dL POC Glucose (mg/dL) 119 H 130 H (75-99) mg/dL Hemoglobin A1c (4.0-6.0) % Calcium 8.2 L (8.4-10.2) mg/dL Total Protein 6.0 L (6.3-8.2) g/dL Albumin 2.8 L (3.5-5.0) g/dL 12/18/17 12/18/17 12/18/17 Range/Units 07:03 07:57 08:49 RBC (3.80-5.40) m/uL Hgb (11.4-16.0) gm/dL Hct (34.0-46.0) % RDW (11.5-15.5) % Plt Count (150-450) k/uL Sodium (137-145) mmol/L Carbon Dioxide (22-30) mmol/L BUN (7-17) mg/dL Creatinine (0.52-1.04) mg/dL Glucose (74-99) mg/dL POC Glucose (mg/dL) 136 H 193 H 248 H (75-99) mg/dL Hemoglobin A1c (4.0-6.0) % Calcium (8.4-10.2) mg/dL Total Protein (6.3-8.2) g/dL Albumin (3.5-5.0) g/dL 12/18/17 12/18/17 12/18/17 Range/Units 10:05 11:59 12:59 RBC (3.80-5.40) m/uL Hgb (11.4-16.0) gm/dL Hct (34.0-46.0) % RDW (11.5-15.5) % Plt Count (150-450) k/uL Sodium (137-145) mmol/L Carbon Dioxide (22-30) mmol/L BUN (7-17) mg/dL Creatinine (0.52-1.04) mg/dL Glucose (74-99) mg/dL POC Glucose (mg/dL) 252 H 208 H 182 H (75-99) mg/dL Hemoglobin A1c (4.0-6.0) % Calcium (8.4-10.2) mg/dL Total Protein (6.3-8.2) g/dL Albumin (3.5-5.0) g/dL 12/18/17 12/18/17 12/18/17 Range/Units 14:14 14:56 17:09 RBC (3.80-5.40) m/uL Hgb (11.4-16.0) gm/dL Hct (34.0-46.0) % RDW (11.5-15.5) % Plt Count (150-450) k/uL Sodium (137-145) mmol/L Carbon Dioxide (22-30) mmol/L BUN (7-17) mg/dL Creatinine (0.52-1.04) mg/dL Glucose (74-99) mg/dL POC Glucose (mg/dL) 182 H 206 H 171 H (75-99) mg/dL Hemoglobin A1c (4.0-6.0) % Calcium (8.4-10.2) mg/dL Total Protein (6.3-8.2) g/dL Albumin (3.5-5.0) g/dL 12/18/17 Range/Units 18:01 RBC (3.80-5.40) m/uL Hgb (11.4-16.0) gm/dL Hct (34.0-46.0) % RDW (11.5-15.5) % Plt Count (150-450) k/uL Sodium (137-145) mmol/L Carbon Dioxide (22-30) mmol/L BUN (7-17) mg/dL Creatinine (0.52-1.04) mg/dL Glucose (74-99) mg/dL POC Glucose (mg/dL) 192 H (75-99) mg/dL Hemoglobin A1c (4.0-6.0) % Calcium (8.4-10.2) mg/dL Total Protein (6.3-8.2) g/dL Albumin (3.5-5.0) g/dL Microbiology - Last 24 Hours (Table) 12/16/17 20:50 Urine Culture - Preliminary Urine,Catheterized Gram Neg Bacilli 12/16/17 16:33 Blood Culture - Preliminary Blood No Growth after 24 hours Assessment and Plan Assessment: Septic shock secondary to UTI Metabolic acidosis- due to sepsis Transient syncopal episode secondary to SVT Hypovolemic hyponatremia Acute kidney injury secondary to sepsis COPD Type 2 diabetes mellitus with diabetic neuropathy Hypertension Hyperlipidemia Morbid obesity with BMI of 47.2 History of breast cancer status post mastectomy and chemotherapy Nicotine dependence-current every day smoker History of seizure disorder Moderate protein calorie malnutrition Plan: Patient is currently off Levophed drip. Continue with cefepime for her UTI pending urine cultures. Patient has been started on insulin drip for better glycemic control in view of her ongoing sepsis. We will hold all nephrotoxic agents and blood pressure medications. We'll continue with morphine for her pain management. Overall prognosis is guarded. Further recommendations to follow depending on the progress of the patient. Time with Patient: Greater than 30
[2017-12-19] MEDS: HEPARIN SODIUM,PORCINE 5,000 UNIT/ML 1 ML VIAL SQ SCH ×3 (00:04→17:42)
[2017-12-19] MEDS: MORPHINE SULFATE 2 MG/ML SYRINGE IV PRN (03:14)
[2017-12-19] MEDS: SODIUM CHLORIDE 0.9% 1,000 ML IV SCH ×2 (04:31→12:14)
[2017-12-19 05:28] LABS: Anisocytosis Slight; Basophils % (A) 0 %; Eosinophils # (A) 0.1 k/uL (0-0.7); Eosinophils % (A) 2 %; HCT 25.9 % (34.0-46.0); HGB 8.3 gm/dL (11.4-16.0); Hypochromasia Moderate; Lymphocytes # (A) 1.4 k/uL (1.0-4.8); Lymphocytes % (A) 29 %; MCH 30.5 pg (25.0-35.0); MCHC 31.8 g/dL (31.0-37.0); MCV 95.8 fL (80.0-100.0); Mean Platelet Volume 7.9; Monocytes # (A) 0.4 k/uL (0-1.0); Monocytes % (A) 9 %; Neutrophils # (A) 2.6 k/uL (1.3-7.7); Neutrophils % (A) 56 %; Platelet Count 122 k/uL (150-450); Poikilocytosis Slight; RBC 2.71 m/uL (3.80-5.40); RDW 16.1 % (11.5-15.5); WBC 4.7 k/uL (3.8-10.6)
[2017-12-19 05:40] LABS: Albumin 2.8 g/dL (3.5-5.0); Calcium 8.3 mg/dL (8.4-10.2); Phosphorus 4.5 mg/dL (2.5-4.5); Potassium 5.3 mmol/L (3.5-5.1); Total Bilirubin 0.8 mg/dL (0.2-1.3); Total Protein 6.1 g/dL (6.3-8.2)
[2017-12-19 07:00] LABS: Glucose,Whole Blood 116 mg/dL (75-99)
[2017-12-19] MEDS: INSULIN ASPART 100 UNIT/ML 1 ML 10 ML VIAL SQ SCH ×7 (07:36→21:34)
--- NOTE | 2017-12-19 07:40 | PN ---
PROGRESS NOTE Mrs. Zuniga is a 67-year-old female who presented with urosepsis. There was a question of ventricular arrhythmia, although reviewing the rhythm strip, it was an artifact. She had no evidence of tachycardia or bradycardia. Hemodynamically, she is stable. She feels tired this morning. She denies any symptoms of chest pain. She denies any dizziness. Her blood pressure has been stable. She underwent an echocardiogram yesterday and revealed an ejection fraction 45% to 50% with dilated right ventricle and evidence of moderate severe pulmonary hypertension with right-sided pressure of about 70 mmHg and moderate tricuspid regurgitation. She continues to be at this time on aspirin once a day, Lipitor 40 mg daily, insulin. She is off her norepinephrine. PHYSICAL EXAMINATION: Blood pressure running in the 90s with the heart rate in the 70s. LUNGS: Clear. HEART: Regular rate and rhythm. S1, S2. No S3 with a systolic murmur. No diastolic murmur. ABDOMEN: Soft, obese, nontender. EXTREMITIES: 1+ edema. LAB DATA: Lab data revealed hemoglobin of 8.3, potassium of 5.3. BUN and creatinine of 43 and 2.31, which has been stable. Her weight is stable. IMPRESSION: 1. Urosepsis with septic shock. 2. Remote history of supraventricular tachycardia. No evidence of arrhythmia during this admission. 3. Acute kidney injury. 4. History of diabetes. 5. Prior history of hypertension. RECOMMENDATION: From the cardiac standpoint, we will continue supportive care. Patient has severe pulmonary hypertension of unknown etiology. At this time, we will continue present therapy and depending on her progress further recommendation will be made. MMODL / IJN: [id number] /
[2017-12-19] MEDS: PANTOPRAZOLE 40 MG/10 ML VIAL IV SCH (07:57)
[2017-12-19] MEDS: ATORVASTATIN 40 MG TAB PO SCH (07:57)
[2017-12-19] MEDS: CEFEPIME 2 GM in SODIUM CHLORIDE 0.9% 50 ML IVPB SCH (07:57)
[2017-12-19] MEDS: LORazepam 1 MG TAB PO SCH ×4 (07:57→21:24)
[2017-12-19] MEDS: ASPIRIN 81 MG PO SCH (07:57)
--- NOTE | 2017-12-19 08:30 | XR ---
EXAMINATION TYPE: XR chest 1V DATE OF EXAM: 12/19/2017 COMPARISON: Prior chest x-ray 12/18/2017 HISTORY: Shortness of breath TECHNIQUE: Single frontal view of the chest is obtained. FINDINGS: Patient is rotated. Findings are stable. Central venous catheter unchanged. There are over lying cardiac leads. IMPRESSION: Stable cardiomegaly.
--- NOTE | 2017-12-19 09:03 | P.PN ---
Subjective Progress Note Date: 12/19/17 Principal diagnosis: Septic shock secondary to urinary tract infection, cultures pending This is 67-year-old white female patient of Dr. Delcid, who presented to the emergency department on 12/16/2017 for evaluation of fever, chills, pain in her bilateral feet, patient does have underlying history of diabetes mellitus, with diabetic neuropathy. Patient had some nausea, but no vomiting, no shortness of breath, no cough, no phlegm production. She denied any abdominal pain, no back pain. Denied any urinary symptoms. Past medical history is significant for hypertension, hyperlipidemia, seizure disorder, and patient has not had seizure episodes in a long time, history of right-sided breast cancer status post right mastectomy, and chemotherapy. Patient is on Arimidex currently. She is a current every day smoker, half a pack a day for 46 years. She denies any underlying chronic lung condition. She denies any previous history of myocardial infarction, or congestive heart failure, no past history of chronic kidney disease. She states she was recently diagnosed with diabetes by Dr. Delcid, and she was started initially on metformin, however she could not tolerate it, and she is currently on a combination of Levemir and NovoLog. Patient did have fevers on presentation, with a temp of 100.8F, she was tachycardic with a rate in the 115 BPM. EKG showed normal sinus rhythm with an incomplete right bundle branch block pattern. No acute ischemic changes. Chest x-ray showed no acute cardiopulmonary process. Labs showed a CBC of 11.0 , hemoglobin of 10.7, sodium was 133, potassium is 5.2, patient had an anion gap metabolic acidosis, with CO2 of 18, BUN was 38, creatinine is 2.15. Lactic acid was elevated at 6.4, patient was given 2 L of IV fluid boluses of of 0.9 normal saline, and was started on maintenance IV fluids of 0.9 normal saline at 150 ML per hour, troponin was elevated 0.115. Patient denied any chest pain. Urinalysis showed large amount of leuk trase, red blood cells white blood cells , many bacteria. While in the emergency department, patient developed an episode of SVT, she had an episode of syncope lasting about 30 seconds, patient' s episode of SVT lasted for several seconds and subsequently patient went back into sinus rhythm. Magnesium level was 1.7, patient was given magnesium replacements. Blood and urine cultures were collected and sent, and are pending at this time, patient was started on broad-spectrum antibiotics including cefepime and vancomycin. This morning patient is seen in the intensive care unit, she is awake and alert, oriented 3, in no acute distress. No fevers overnight, maintenance IV fluid is 0.9 normal seen at a rate of 150 ML per hour, she is on levo fed currently at 3 mics per minute, she is oliguric , we will give the patient additional liter bolus of 0.9 normal saline. Cultures are pending. Patient had a left IJ triple-lumen central line catheter placed in the emergency department, follow-up chest x-ray this morning showed no acute cardiopulmonary process, and left internal jugular catheter is in the appropriate position with its tip in the superior vena cava. Lactic acid level on this morning is down to 1.2. On 12/18/2017 patient seen in follow-up in the intensive care unit, she is awake and alert, oriented 3, she did complain of been a bit lightheaded this morning, she didn't feel like she was going to pass out however there has been no recurrent episodes of syncope since the one episode in the emergency room which was likely precipitated by SVT. No recurrence of SVT on the monitor, patient remains in sinus rhythm with a controlled rate, she is hemodynamically stable, her levo fed has been on hold since 345 in the morning. Current IV fluids this 0.9 normal saline at a rate of 100 ML per hour, insulin drip is on hold. Complains of chest pain, no shortness of breath, pulse ox on 2 L per nasal cannula was 99%, afebrile, blood and urine cultures are pending, patient is on empiric antibiotics including cefepime and vancomycin. Today's labs have been reviewed, the WBCs 5.4, hemoglobin is 8.4, serum sodium is 131, potassium is 5.0, CO2 is 19, BUN is 42, creatinine is 2.37. Patient has had no recurrent episodes of syncope, she does have a remote history of seizures, however he has not had any seizure in the last 25 years, she is to follow with the neurologist in [place], however she is not able to take certain antiepileptic medications including Dilantin, and phenobarbital. We'll continue with current medical treatment. On 12/19/2017 patient seen in follow-up in the intensive care unit. She is awake and alert, in no acute distress, no shortness of breath, no chest pain, vital signs are stable, patient has been off the levo fed since 3:00 in the morning on 12/18/2017. Venous IV fluid is 0.9 normal saline at a rate of 100 ML per hour. Remains pulse ox is 94%, no fever, no chills, microbiology results have been reviewed, urine culture showed gram-negative bacilli, final cultures pending, blood cultures were negative at the 48 hour rosemarie. Patient is covered with cefepime, vancomycin has been discontinued. No recurrence of SVT, normal sinus rhythm on the monitor. No acute events overnight, lung sounds reveal bibasilar crackles, patient is working on her incentive spirometry. No recurrence of syncope. Today's blood work has been reviewed, WBC 4.7, hemoglobin is 8.3, serum sodium is 132, potassium is 5.3, chloride is 108, CO2 17, BUN is 43, creatinine is 2.31. Patient has a degree of non-anion gap metabolic acidosis, likely related to acute kidney injury. Nephrology is following. Echocardiogram has been completed, and revealed an ejection fraction of 45-50% with dilated right ventricle and evidence of moderate severe pulmonary hypertension with right-sided pressure of about 70 mmHg and moderate tricuspid regurgitation. Cardiology is following Objective - Vital Signs Vital signs: Vital Signs Temp 97.6 F 12/19/17 08:00 Pulse 85 12/19/17 08:00 Resp 19 12/19/17 08:00 BP 106/84 12/19/17 08:00 Pulse Ox 94 L 12/19/17 08:00 Intake & Output 12/18/17 12/19/17 12/19/17 18:59 06:59 18:59 Intake Total 1974.24 1100 300 Output Total 1030 565 110 Balance 944.24 535 190 Weight 139 kg 140.7 kg 140.7 kg Intake: IV 1350 1100 300 Cefepime 2 gm In Sodium 50 100 Chloride 0.9% 50 ml @ 100 mls/hr IVPB Q24HR ROS Rx #:[id number] Sodium Chloride 0.9% 1, 1300 1100 200 000 ml @ 100 mls/hr IV . Q10H ROS Rx#:[id number] Intake, IV Titration 24.24 Amount Insulin Regular 100 unit 24.24 In Sodium Chloride 0.9% 100 ml @ Per Protocol IV .Q0M [facility] Rx#:[id number] Oral 600 Output: Urine 1030 565 110 Other: Voiding Method Indwelling Catheter Indwelling Catheter - Exam GENERAL EXAM: Alert, pleasant 67-year-old obese white female comfortable in no apparent distress. HEAD: Normocephalic/atraumatic. EYES: Normal reaction of pupils, equal size. Conjunctiva pink, sclera white. NOSE: Clear with pink turbinates. THROAT: No erythema or exudates. NECK: No masses, no JVD, no thyroid enlargement, no adenopathy. CHEST: No chest wall deformity. Symmetrical expansion. LUNGS: Equal air entry with crackles over bilateral lower bases posteriorly CVS: Regular rate and rhythm, distant heart sounds, normal S1 and S2, no gallops , no murmurs, no rubs ABDOMEN: Soft, nontender. No hepatosplenomegaly, normal bowel sounds, no guarding or rigidity. EXTREMITIES: No clubbing, no edema, no cyanosis, 2+ pulses and upper and lower extremities. MUSCULOSKELETAL: Muscle strength and tone normal. SPINE: No scoliosis or deformity SKIN: No rashes CENTRAL NERVOUS SYSTEM: Alert and oriented -3. No focal deficits, tone is normal in all 4 extremities. PSYCHIATRIC: Alert and oriented -3. Appropriate affect. Intact judgment and insight. - Labs CBC & Chem 7: 12/19/17 04:32 12/19/17 04:32 Labs: Abnormal Lab Results - Last 24 Hours (Table) 12/17/17 12/18/17 12/18/17 Range/Units 04:48 08:49 10:05 RBC (3.80-5.40) m/uL Hgb (11.4-16.0) gm/dL Hct (34.0-46.0) % RDW (11.5-15.5) % Plt Count (150-450) k/uL Sodium (137-145) mmol/L Potassium (3.5-5.1) mmol/L Chloride (98-107) mmol/L Carbon Dioxide (22-30) mmol/L BUN (7-17) mg/dL Creatinine (0.52-1.04) mg/dL Glucose (74-99) mg/dL POC Glucose (mg/dL) 248 H 252 H (75-99) mg/dL Hemoglobin A1c 10.7 H (4.0-6.0) % Calcium (8.4-10.2) mg/dL Total Protein (6.3-8.2) g/dL Albumin (3.5-5.0) g/dL 12/18/17 12/18/17 12/18/17 Range/Units 11:59 12:59 14:14 RBC (3.80-5.40) m/uL Hgb (11.4-16.0) gm/dL Hct (34.0-46.0) % RDW (11.5-15.5) % Plt Count (150-450) k/uL Sodium (137-145) mmol/L Potassium (3.5-5.1) mmol/L Chloride (98-107) mmol/L Carbon Dioxide (22-30) mmol/L BUN (7-17) mg/dL Creatinine (0.52-1.04) mg/dL Glucose (74-99) mg/dL POC Glucose (mg/dL) 208 H 182 H 182 H (75-99) mg/dL Hemoglobin A1c (4.0-6.0) % Calcium (8.4-10.2) mg/dL Total Protein (6.3-8.2) g/dL Albumin (3.5-5.0) g/dL 12/18/17 12/18/17 12/18/17 Range/Units 14:56 17:09 18:01 RBC (3.80-5.40) m/uL Hgb (11.4-16.0) gm/dL Hct (34.0-46.0) % RDW (11.5-15.5) % Plt Count (150-450) k/uL Sodium (137-145) mmol/L Potassium (3.5-5.1) mmol/L Chloride (98-107) mmol/L Carbon Dioxide (22-30) mmol/L BUN (7-17) mg/dL Creatinine (0.52-1.04) mg/dL Glucose (74-99) mg/dL POC Glucose (mg/dL) 206 H 171 H 192 H (75-99) mg/dL Hemoglobin A1c (4.0-6.0) % Calcium (8.4-10.2) mg/dL Total Protein (6.3-8.2) g/dL Albumin (3.5-5.0) g/dL 12/18/17 12/19/17 12/19/17 Range/Units 20:57 04:32 04:32 RBC 2.71 L (3.80-5.40) m/uL Hgb 8.3 L (11.4-16.0) gm/dL Hct 25.9 L (34.0-46.0) % RDW 16.1 H (11.5-15.5) % Plt Count 122 L (150-450) k/uL Sodium 132 L (137-145) mmol/L Potassium 5.3 H (3.5-5.1) mmol/L Chloride 108 H (98-107) mmol/L Carbon Dioxide 17 L (22-30) mmol/L BUN 43 H (7-17) mg/dL Creatinine 2.31 H (0.52-1.04) mg/dL Glucose 101 H (74-99) mg/dL POC Glucose (mg/dL) 151 H (75-99) mg/dL Hemoglobin A1c (4.0-6.0) % Calcium 8.3 L (8.4-10.2) mg/dL Total Protein 6.1 L (6.3-8.2) g/dL Albumin 2.8 L (3.5-5.0) g/dL 12/19/17 Range/Units 06:49 RBC (3.80-5.40) m/uL Hgb (11.4-16.0) gm/dL Hct (34.0-46.0) % RDW (11.5-15.5) % Plt Count (150-450) k/uL Sodium (137-145) mmol/L Potassium (3.5-5.1) mmol/L Chloride (98-107) mmol/L Carbon Dioxide (22-30) mmol/L BUN (7-17) mg/dL Creatinine (0.52-1.04) mg/dL Glucose (74-99) mg/dL POC Glucose (mg/dL) 116 H (75-99) mg/dL Hemoglobin A1c (4.0-6.0) % Calcium (8.4-10.2) mg/dL Total Protein (6.3-8.2) g/dL Albumin (3.5-5.0) g/dL Microbiology - Last 24 Hours (Table) 12/16/17 16:33 Blood Culture - Preliminary Blood No Growth after 48 hours 12/16/17 20:50 Urine Culture - Preliminary Urine,Catheterized Gram Neg Bacilli Assessment and Plan Plan: Assessment: #1. Septic shock secondary to urinary tract infection, urine culture showed gram-negative bacilli, final cultures pending #2. Non-anion gap metabolic acidosis secondary to acute kidney injury #3. Episode of SVT, she has spontaneously converted back to sinus rhythm #4. Transient episode of syncope, likely secondary to SVT #5. Pulmonary hypertension of unknown etiology, echocardiogram was completed, and showed right-sided pressures of 70 mmHg, with tricuspid regurgitation, and impaired left ventricular systolic function with EF of 45-50% #6. Acute kidney injury likely related to hypotension, and steroid use #7. Mild hyponatremia, likely secondary to hypovolemia #8. Hyperglycemia likely induced by sepsis #9. Diabetes mellitus type 2 with diabetic neuropathy #10. Hypertension, hyperlipidemia #11. History of SVT #12. History of right breast cancer, status post mastectomy and chemotherapy #13. Current every day smoker, patient carries a 46-year smoking history, smoking half a pack a day #14 COPD #15. Seizure disorder #16. Chronic anemia Plan: Patient is hemodynamically stable, no acute distress, no fever, no chills. Levophed has been on hold for greater than 24 hours, urine cultures show gram- negative bacilli, final cultures pending, continue current antibiotic coverage in the form of cefepime, vancomycin has been discontinued. Will await the final results of the urine culture. The patient is stable. Today's chest x- ray has been reviewed, and showed no acute pulmonary process. We'll discontinue the daily chest x-rays, patient is stable to be transferred out of the intensive care unit today, medical surgical floor with remote telemetry. I performed a history & physical examination of the patient and discussed their management with my nurse practitioner, Yesica Velázquez. I reviewed the nurse practitioner's note and agree with the documented findings and plan of care. Lung sounds are positive for crackles over bilateral lower bases. The findings and the impression was discussed with the patient. I attest to the documentation by the nurse practitioner. Time with Patient: Greater than 30
[2017-12-19] MEDS: diphenhydrAMINE 25 MG CAP PO PRN (09:11)
[2017-12-19] MEDS: ANASTROZOLE 1 MG TAB PO SCH (09:11)
[2017-12-19] MEDS: HYDROcodone/APAP 5-325MG 1 EACH TAB PO PRN ×2 (09:11→17:42)
[2017-12-19 11:47] LABS: Glucose,Whole Blood 164 mg/dL (75-99)
--- NOTE | 2017-12-19 14:29 | CDI ---
Last Revision, January 2017 Documentation Clarification Form Date: 12/19/17 From: Archana Johns RN Admit Date: 12/16/2017 7:31:00 PM Patient Name: Tawny Zuniga Visit Number: [id number] ATTENTION: The Clinical Documentation Specialists (CDI) and [facility] Coding Staff appreciate your assistance in clarifying documentation. Please respond to the clarification below the line at the bottom and electronically sign. The CDI & [facility] Coding staff will review the response and follow-up if needed. Please note: Queries are made part of the Legal Health Record. If you have any questions, please contact the author of this message via ITS. Porsche Aguero MD, A diagnosis of UTI has been documented in the H&P and PN dated 12/18. Patient admitted with fever, flu symptoms and sepsis History/Risk factors: COPD, DM, HTN, SMOKER Clinical Indicators: Urinalysis: appearance turbid, protein 3+, blood large, leukocyte esterase large , RBC > 182, WBC > 182, WBC clumps many, bacteria many, hyaline casts 69 Urine culture: Escherichia coli LABS on admission: WBC 11.0 Treatment: Antibiotics: Cefepime IVPB, Vancomycin IVPB In your professional opinion, can you please clarify the etiology of the UTI, if known? Granados catheter UTI not related to catheter/urostomy Other condition, please specify Unable to determine If an infective organism is present, please specify cause and effect relationship if applicable. UTI not related to catheter/urostomy MTDD
[2017-12-19 17:12] LABS: Glucose,Whole Blood 164 mg/dL (75-99)
--- NOTE | 2017-12-19 21:24 | PN ---
PROGRESS NOTE Patient is seen for followup for acute kidney injury. She is currently awake. Overall, patient feels better. She is off of pressors. She is maintained on IV fluids at about 100 mL an hour. Urine output has been at about 100 mL/hour. Serum creatinine stays about the same at 2.3 mg/dL. PHYSICAL EXAMINATION: On examination today, blood pressure was 86/53, heart rate of 80 per minute. Patient is afebrile. Examination of the heart S1, S2. Examination of the lungs bilateral breath sounds are heard. Abdomen is soft, nontender, obese. Examination of lower extremity shows chronic skin changes. [employer] exam is grossly intact. LAB: Show sodium 132, potassium 5.3, chloride of 108, CO2 17, BUN 43, serum creatinine 2.3 mg/dL. Hemoglobin was 8.3 g/dL. ASSESSMENT: 1. Acute kidney injury. Renal function remains impaired with serum creatinine staying at about 2.3 mg/dL. Previous creatinine was 0.7 on 03/26/2015. We do not have any labs from earlier part of this year. 2. Mild metabolic acidosis associated with renal failure and normal saline. I will start patient on oral sodium bicarb. 3. Urinary tract infection with urine culture growing E coli, maintained on cefepime. 4. Mild hyperkalemia. The patient is not on any nonsteroidal anti-inflammatory agents or BINDU inhibitors. There is no ongoing GI bleed. However, she remains anemic and hemoglobin has dropped from 10.7 on initial admission, but remaining stable at 8.4- 8.3 mg/dL. We will check stool for occult blood. PLAN: Decrease IV fluids to 50 mL an hour. Continue to encourage increased oral intake. Check stool for occult blood and continue to avoid nephrotoxic agents. MMODL / IJN: [id number] /
[2017-12-19 21:30] LABS: Glucose,Whole Blood 136 mg/dL (75-99)
[2017-12-19] MEDS: INSULIN DETEMIR 100 UNIT/ML 10 ML VIAL SQ SCH (22:20)
[2017-12-20] MEDS: HYDROcodone/APAP 5-325MG 1 EACH TAB PO PRN ×3 (00:52→23:48)
[2017-12-20] MEDS: HEPARIN SODIUM,PORCINE 5,000 UNIT/ML 1 ML VIAL SQ SCH ×3 (00:52→17:04)
[2017-12-20 05:05] LABS: Anisocytosis Slight; Basophils % (A) 0 %; Eosinophils # (A) 0.1 k/uL (0-0.7); Eosinophils % (A) 2 %; HCT 24.7 % (34.0-46.0); HGB 8.2 gm/dL (11.4-16.0); Hypochromasia Slight; Lymphocytes # (A) 1.2 k/uL (1.0-4.8); Lymphocytes % (A) 32 %; MCH 31.1 pg (25.0-35.0); MCHC 33.1 g/dL (31.0-37.0); MCV 93.8 fL (80.0-100.0); Mean Platelet Volume 8.9; Monocytes # (A) 0.3 k/uL (0-1.0); Monocytes % (A) 8 %; Neutrophils # (A) 2.2 k/uL (1.3-7.7); Neutrophils % (A) 55 %; Platelet Count 103 k/uL (150-450); Poikilocytosis Slight; RBC 2.64 m/uL (3.80-5.40); RDW 16.1 % (11.5-15.5); WBC 3.9 k/uL (3.8-10.6)
[2017-12-20 05:25] LABS: Albumin 2.7 g/dL (3.5-5.0); Calcium 8.6 mg/dL (8.4-10.2); Magnesium 2.1 mg/dL (1.6-2.3); Potassium 5.3 mmol/L (3.5-5.1); Total Bilirubin 0.8 mg/dL (0.2-1.3); Total Protein 6.1 g/dL (6.3-8.2)
[2017-12-20 07:03] LABS: Glucose,Whole Blood 145 mg/dL (75-99)
[2017-12-20] MEDS: INSULIN ASPART 100 UNIT/ML 1 ML 10 ML VIAL SQ SCH ×7 (07:06→22:01)
--- NOTE | 2017-12-20 07:52 | PN ---
PROGRESS NOTE Mrs Zuniga is a 67-year-old female who presented with change in mental status and urosepsis. There was a question of arrhythmia, After reviewing the rhythm, it does not appear to be. She is feeling better overall. She is tired. She has no chest pain. Hemodynamically, she is stable. She has significant pulmonary hypertension with moderate tricuspid regurgitation. She is on no pressor at this time. Hemodynamically, she is stable. She continues to be on aspirin once a day, Lipitor 40 mg daily. PHYSICAL EXAMINATION: Blood pressure 103/60 with a heart rate in the 80s. LUNGS: Clear. HEART: Regular rate and rhythm. S1, S2. No S3. No rub appreciated with a systolic murmur, 2/6 heard at the base. No diastolic murmur. No rub. ABDOMEN: Soft, nontender, obese. EXTREMITIES: 1+ edema. LAB DATA: Revealed BUN and creatinine 43 and 2.08, potassium 5.3, hemoglobin 15.2, platelets count of 103. IMPRESSION: 1. Urosepsis, stabilizing with septic shock. 2. Pulmonary hypertension with moderate tricuspid regurgitation with minimally impaired left ventricular systolic function. 3. Acute renal injury, improving. 4. Diabetes mellitus. 5. Prior history of hyperlipidemia. RECOMMENDATION: From the cardiac standpoint, will continue present therapy. I will follow her blood pressure and if it stabilizes, I will add a beta-talisha to her regimen. At this time will hold on an BINDU inhibitor because of her renal function, although they are improving gradually. MMODL / IJN: [id number] /
--- NOTE | 2017-12-20 08:40 | P.PN ---
Subjective Progress Note Date: 12/20/17 Principal diagnosis: Septic shock secondary to urinary tract infection, cultures pending This is 67-year-old white female patient of Dr. Delcid, who presented to the emergency department on 12/16/2017 for evaluation of fever, chills, pain in her bilateral feet, patient does have underlying history of diabetes mellitus, with diabetic neuropathy. Patient had some nausea, but no vomiting, no shortness of breath, no cough, no phlegm production. She denied any abdominal pain, no back pain. Denied any urinary symptoms. Past medical history is significant for hypertension, hyperlipidemia, seizure disorder, and patient has not had seizure episodes in a long time, history of right-sided breast cancer status post right mastectomy, and chemotherapy. Patient is on Arimidex currently. She is a current every day smoker, half a pack a day for 46 years. She denies any underlying chronic lung condition. She denies any previous history of myocardial infarction, or congestive heart failure, no past history of chronic kidney disease. She states she was recently diagnosed with diabetes by Dr. Delcid, and she was started initially on metformin, however she could not tolerate it, and she is currently on a combination of Levemir and NovoLog. Patient did have fevers on presentation, with a temp of 100.8F, she was tachycardic with a rate in the 115 BPM. EKG showed normal sinus rhythm with an incomplete right bundle branch block pattern. No acute ischemic changes. Chest x-ray showed no acute cardiopulmonary process. Labs showed a CBC of 11.0 , hemoglobin of 10.7, sodium was 133, potassium is 5.2, patient had an anion gap metabolic acidosis, with CO2 of 18, BUN was 38, creatinine is 2.15. Lactic acid was elevated at 6.4, patient was given 2 L of IV fluid boluses of of 0.9 normal saline, and was started on maintenance IV fluids of 0.9 normal saline at 150 ML per hour, troponin was elevated 0.115. Patient denied any chest pain. Urinalysis showed large amount of leuk trase, red blood cells white blood cells , many bacteria. While in the emergency department, patient developed an episode of SVT, she had an episode of syncope lasting about 30 seconds, patient' s episode of SVT lasted for several seconds and subsequently patient went back into sinus rhythm. Magnesium level was 1.7, patient was given magnesium replacements. Blood and urine cultures were collected and sent, and are pending at this time, patient was started on broad-spectrum antibiotics including cefepime and vancomycin. This morning patient is seen in the intensive care unit, she is awake and alert, oriented 3, in no acute distress. No fevers overnight, maintenance IV fluid is 0.9 normal seen at a rate of 150 ML per hour, she is on levo fed currently at 3 mics per minute, she is oliguric , we will give the patient additional liter bolus of 0.9 normal saline. Cultures are pending. Patient had a left IJ triple-lumen central line catheter placed in the emergency department, follow-up chest x-ray this morning showed no acute cardiopulmonary process, and left internal jugular catheter is in the appropriate position with its tip in the superior vena cava. Lactic acid level on this morning is down to 1.2. On 12/18/2017 patient seen in follow-up in the intensive care unit, she is awake and alert, oriented 3, she did complain of been a bit lightheaded this morning, she didn't feel like she was going to pass out however there has been no recurrent episodes of syncope since the one episode in the emergency room which was likely precipitated by SVT. No recurrence of SVT on the monitor, patient remains in sinus rhythm with a controlled rate, she is hemodynamically stable, her levo fed has been on hold since 345 in the morning. Current IV fluids this 0.9 normal saline at a rate of 100 ML per hour, insulin drip is on hold. Complains of chest pain, no shortness of breath, pulse ox on 2 L per nasal cannula was 99%, afebrile, blood and urine cultures are pending, patient is on empiric antibiotics including cefepime and vancomycin. Today's labs have been reviewed, the WBCs 5.4, hemoglobin is 8.4, serum sodium is 131, potassium is 5.0, CO2 is 19, BUN is 42, creatinine is 2.37. Patient has had no recurrent episodes of syncope, she does have a remote history of seizures, however he has not had any seizure in the last 25 years, she is to follow with the neurologist in [place], however she is not able to take certain antiepileptic medications including Dilantin, and phenobarbital. We'll continue with current medical treatment. On 12/19/2017 patient seen in follow-up in the intensive care unit. She is awake and alert, in no acute distress, no shortness of breath, no chest pain, vital signs are stable, patient has been off the levo fed since 3:00 in the morning on 12/18/2017. Venous IV fluid is 0.9 normal saline at a rate of 100 ML per hour. Remains pulse ox is 94%, no fever, no chills, microbiology results have been reviewed, urine culture showed gram-negative bacilli, final cultures pending, blood cultures were negative at the 48 hour rosemarie. Patient is covered with cefepime, vancomycin has been discontinued. No recurrence of SVT, normal sinus rhythm on the monitor. No acute events overnight, lung sounds reveal bibasilar crackles, patient is working on her incentive spirometry. No recurrence of syncope. Today's blood work has been reviewed, WBC 4.7, hemoglobin is 8.3, serum sodium is 132, potassium is 5.3, chloride is 108, CO2 17, BUN is 43, creatinine is 2.31. Patient has a degree of non-anion gap metabolic acidosis, likely related to acute kidney injury. Nephrology is following. Echocardiogram has been completed, and revealed an ejection fraction of 45-50% with dilated right ventricle and evidence of moderate severe pulmonary hypertension with right-sided pressure of about 70 mmHg and moderate tricuspid regurgitation. Cardiology is following On 12/20/2017 patient seen again in follow-up in the intensive care unit. She remains stable, hemodynamically drawn no issues, patient sinus rhythm on the monitor, hemodynamically stable, she is off the vasopressor support for over 48 hours. He is awake and alert, oriented 3, no recurrence of syncope, no recurrence of arrhythmia. No shortness of breath or chest pain, lung sounds are positive for some minimal crackles at the left base, patient is working on her incentive spirometry. She was up in the chair, tolerated activity well. Final urine culture identified E. coli. No fever, no chills. Today's labs have been reviewed, WBC is 3.9, hemoglobin is 8.2, sodium is 131, potassium is 5.3, CO2 is 18, BUN is 43 and creatinine 2.08. Nephrology is following. IV 0.9 normal saline at a rate of 50 ML per hour, room air pulse ox is 94%. Objective - Vital Signs Vital signs: Vital Signs Temp 98 F 12/20/17 00:00 Pulse 80 12/20/17 07:00 Resp 17 12/20/17 07:00 BP 103/65 12/20/17 07:00 Pulse Ox 94 L 12/20/17 07:00 Intake & Output 12/19/17 12/20/17 12/20/17 18:59 06:59 18:59 Intake Total 1150 600 50 Output Total 690 1460 150 Balance 460 -860 -100 Weight 140.7 kg 143 kg Intake: IV 900 600 50 Cefepime 2 gm In Sodium 150 Chloride 0.9% 50 ml @ 100 mls/hr IVPB Q24HR ROS Rx #:[id number] Sodium Chloride 0.9% 1, 450 000 ml @ 100 mls/hr IV . Q10H ROS Rx#:[id number] Sodium Chloride 0.9% 1, 300 600 50 000 ml @ 50 mls/hr IV . Q20H ROS Rx#:[id number] Oral 250 Output: Urine 690 1460 150 Other: Voiding Method Indwelling Catheter Indwelling Catheter - Exam GENERAL EXAM: Alert, pleasant 67-year-old obese white female comfortable in no apparent distress. HEAD: Normocephalic/atraumatic. EYES: Normal reaction of pupils, equal size. Conjunctiva pink, sclera white. NOSE: Clear with pink turbinates. THROAT: No erythema or exudates. NECK: No masses, no JVD, no thyroid enlargement, no adenopathy. CHEST: No chest wall deformity. Symmetrical expansion. LUNGS: Equal air entry with crackles over left lower base CVS: Regular rate and rhythm, distant heart sounds, normal S1 and S2, no gallops , no murmurs, no rubs ABDOMEN: Soft, nontender. No hepatosplenomegaly, normal bowel sounds, no guarding or rigidity. EXTREMITIES: No clubbing, no edema, no cyanosis, 2+ pulses and upper and lower extremities. MUSCULOSKELETAL: Muscle strength and tone normal. SPINE: No scoliosis or deformity SKIN: No rashes CENTRAL NERVOUS SYSTEM: Alert and oriented -3. No focal deficits, tone is normal in all 4 extremities. PSYCHIATRIC: Alert and oriented -3. Appropriate affect. Intact judgment and insight. - Labs CBC & Chem 7: 12/20/17 04:55 12/20/17 04:55 Labs: Abnormal Lab Results - Last 24 Hours (Table) 12/19/17 12/19/17 12/19/17 Range/Units 11:35 17:00 21:19 RBC (3.80-5.40) m/uL Hgb (11.4-16.0) gm/dL Hct (34.0-46.0) % RDW (11.5-15.5) % Plt Count (150-450) k/uL Sodium (137-145) mmol/L Potassium (3.5-5.1) mmol/L Chloride (98-107) mmol/L Carbon Dioxide (22-30) mmol/L BUN (7-17) mg/dL Creatinine (0.52-1.04) mg/dL Glucose (74-99) mg/dL POC Glucose (mg/dL) 164 H 164 H 136 H (75-99) mg/dL Total Protein (6.3-8.2) g/dL Albumin (3.5-5.0) g/dL 12/20/17 12/20/17 12/20/17 Range/Units 04:55 04:55 06:52 RBC 2.64 L (3.80-5.40) m/uL Hgb 8.2 L (11.4-16.0) gm/dL Hct 24.7 L (34.0-46.0) % RDW 16.1 H (11.5-15.5) % Plt Count 103 L (150-450) k/uL Sodium 131 L (137-145) mmol/L Potassium 5.3 H (3.5-5.1) mmol/L Chloride 108 H (98-107) mmol/L Carbon Dioxide 18 L (22-30) mmol/L BUN 43 H (7-17) mg/dL Creatinine 2.08 H (0.52-1.04) mg/dL Glucose 125 H (74-99) mg/dL POC Glucose (mg/dL) 145 H (75-99) mg/dL Total Protein 6.1 L (6.3-8.2) g/dL Albumin 2.7 L (3.5-5.0) g/dL Microbiology - Last 24 Hours (Table) 12/16/17 16:33 Blood Culture - Preliminary Blood No Growth after 72 hours 12/16/17 20:50 Urine Culture - Final Urine,Catheterized Escherichia coli Assessment and Plan Plan: Assessment: #1. Septic shock secondary to urinary tract infection, urine culture showed gram-negative bacilli, I'll culture identified E. coli #2. Non-anion gap metabolic acidosis secondary to acute kidney injury #3. Episode of SVT, she has spontaneously converted back to sinus rhythm #4. Transient episode of syncope, likely secondary to SVT #5. Pulmonary hypertension of unknown etiology, echocardiogram was completed, and showed right-sided pressures of 70 mmHg, with tricuspid regurgitation, and impaired left ventricular systolic function with EF of 45-50% #6. Acute kidney injury likely related to hypotension, and steroid use #7. Mild hyponatremia, likely secondary to hypovolemia #8. Hyperglycemia likely induced by sepsis #9. Diabetes mellitus type 2 with diabetic neuropathy #10. Hypertension, hyperlipidemia #11. History of SVT #12. History of right breast cancer, status post mastectomy and chemotherapy #13. Current every day smoker, patient carries a 46-year smoking history, smoking half a pack a day #14 COPD #15. Seizure disorder #16. Chronic anemia Plan: Patient remains stable, off vasopressor support for over 48 hours, no shortness of breath, no chest pain, no syncope, no recurrent episodes of SVT. No acute issues, increase activity as tolerated, patient on to have E. coli in her urine culture, she was treated with vancomycin and cefepime, vancomycin was discontinued yesterday, hemodynamically she is stable, no fever, no chills, we will switch to cefepime to oral Levaquin, patient can be transferred out of the intensive care unit to selective care unit. I performed a history & physical examination of the patient and discussed their management with my nurse practitioner, Yesica Velázquez. I reviewed the nurse practitioner's note and agree with the documented findings and plan of care. Lung sounds are positive for crackles over bilateral lower bases. The findings and the impression was discussed with the patient. I attest to the documentation by the nurse practitioner. Time with Patient: Greater than 30
[2017-12-20] MEDS: ASPIRIN 81 MG PO SCH (08:48)
[2017-12-20] MEDS: ATORVASTATIN 40 MG TAB PO SCH (08:48)
[2017-12-20] MEDS: LORazepam 1 MG TAB PO SCH ×3 (08:48→22:01)
[2017-12-20] MEDS: ANASTROZOLE 1 MG TAB PO SCH (08:48)
[2017-12-20] MEDS: PANTOPRAZOLE 40 MG/10 ML VIAL IV SCH (08:49)
[2017-12-20] MEDS: SODIUM CHLORIDE 0.9% 1,000 ML IV SCH (08:54)
--- NOTE | 2017-12-20 08:55 | CDI ---
Last Revision, January 2017 Documentation Clarification Form Date: 12/20/17 From: Archana Johns RN Admit Date: 12/16/2017 7:31:00 PM Patient Name: Tawny Zuniga Visit Number: [id number] ATTENTION: The Clinical Documentation Specialists (CDI) and [facility] Coding Staff appreciate your assistance in clarifying documentation. Please respond to the clarification below the line at the bottom and electronically sign. The CDI & [facility] Coding staff will review the response and follow-up if needed. Please note: Queries are made part of the Legal Health Record. If you have any questions, please contact the author of this message via ITS. Estuardo Vernon , DO, A diagnosis of anemia lacks specificity to accurately reflect your patients severity of condition and clarification is needed. Patient admitted with fever, flu symptoms and sepsis History/Risk Factors: DM, fibromyalgia, hyperlipidemia, HTN, RA, SVT Clinical Indicators: Hemoglobin on admission: 10.7, 12/20 8.2 Hematocrit on admission: 34.1, 12/20 24.7 Consult 12/17: Chronic anemia documented, PN 12/18 - 12/19 Chronic anemia documented Treatment: H&H daily In order to capture the severity of condition, please clarify the type of anemia and etiology if known: Acute blood loss anemia Acute on chronic blood loss anemia Chronic blood loss anemia Iron deficiency anemia Nutritional anemia Unable to determine Other, please specify Anemia of chronic disease MTDD
[2017-12-20] MEDS: LEVOFLOXACIN 250 MG TAB PO SCH (10:22)
[2017-12-20 12:11] LABS: Glucose,Whole Blood 181 mg/dL (75-99)
[2017-12-20 12:36] LABS: Iron Saturation 23.79 (12.00-45.00)
--- NOTE | 2017-12-20 15:46 | PN ---
PROGRESS NOTE The patient is seen for followup for acute kidney injury secondary to sepsis and hypotension and urinary tract infection. The patient is off of Levophed. Her IV fluids were decreased yesterday to about 50 mL an hour. This morning, she is comfortable, awake. Denies any significant complaints. PHYSICAL EXAMINATION: Blood pressure is 114/78, heart rate 86 per minute. She is afebrile. Examination of the heart S1, S2. Examination of lungs bilateral breath sounds are heard. Abdomen is soft, nontender. Exam of lower extremities shows trace edema bilaterally. [employer]IV[employer] exam is grossly intact. Patient moving all 4 extremities. LAB: Show sodium 131, potassium 5.3, chloride 108, CO2 is 18. Hemoglobin 8.2 g/dL. Serum creatinine down to 2.08. ASSESSMENT: 1. Acute kidney injury secondary to sepsis, urinary tract infection, hypotension, currently improving. Urine output remains good. IV fluids have been decreased to about 50 mL an hour. Patient is tolerating oral intake. She is advised to maintain good oral intake. 2. Urinary tract infection with urine culture growing E coli, maintained on Levaquin. 3. Sepsis with hypotension. Currently off of Levophed. 4. Non anion gap metabolic acidosis secondary to renal failure. We will start the patient on sodium bicarb. 5. Mild hyperkalemia. Continue to monitor for now. PLAN: Repeat labs in a.m. Continue current IV fluids at 50 mL an hour. Continue to encourage increased oral intake. Repeat labs tomorrow. MMODL / IJN: [id number] /
[2017-12-20 17:12] LABS: Glucose,Whole Blood 136 mg/dL (75-99)
[2017-12-20] MEDS: INSULIN DETEMIR 100 UNIT/ML 10 ML VIAL SQ SCH (22:01)
[2017-12-20] MEDS: SODIUM BICARBONATE TAB 650 MG TAB PO SCH (22:01)
[2017-12-20 22:04] LABS: Glucose,Whole Blood 197 mg/dL (75-99)
[2017-12-21] MEDS: HEPARIN SODIUM,PORCINE 5,000 UNIT/ML 1 ML VIAL SQ SCH ×4 (01:05→23:41)
[2017-12-21] MEDS: diphenhydrAMINE 25 MG CAP PO PRN (01:09)
[2017-12-21] MEDS: ACETAMINOPHEN TAB 325 MG TAB PO PRN (04:52)
[2017-12-21 05:30] LABS: Basophils % (A) 1 %; Eosinophils # (A) 0.1 k/uL (0-0.7); Eosinophils % (A) 2 %; HGB 8.5 gm/dL (11.4-16.0); Hypochromasia Moderate; Lymphocytes # (A) 1.3 k/uL (1.0-4.8); Lymphocytes % (A) 30 %; MCH 31.5 pg (25.0-35.0); MCHC 32.7 g/dL (31.0-37.0); MCV 96.4 fL (80.0-100.0); Mean Platelet Volume 7.9; Monocytes # (A) 0.3 k/uL (0-1.0); Monocytes % (A) 8 %; Neutrophils # (A) 2.3 k/uL (1.3-7.7); Neutrophils % (A) 55 %; Platelet Count 107 k/uL (150-450); Poikilocytosis Slight; RDW 15.9 % (11.5-15.5); WBC 4.2 k/uL (3.8-10.6)
[2017-12-21 05:39] LABS: Magnesium 2.1 mg/dL (1.6-2.3); Phosphorus 3.8 mg/dL (2.5-4.5); Potassium 5.2 mmol/L (3.5-5.1); Total Bilirubin 0.8 mg/dL (0.2-1.3); Total Protein 6.5 g/dL (6.3-8.2)
[2017-12-21 06:51] LABS: Glucose,Whole Blood 117 mg/dL (75-99)
[2017-12-21] MEDS: INSULIN ASPART 100 UNIT/ML 1 ML 10 ML VIAL SQ SCH ×7 (06:55→21:23)
[2017-12-21] MEDS: SODIUM CHLORIDE 0.9% 1,000 ML IV SCH (06:55)
--- NOTE | 2017-12-21 07:09 | P.PN ---
Subjective Progress Note Date: 12/21/17 Principal diagnosis: Septic shock secondary to urinary tract infection, cultures pending This is 67-year-old white female patient of Dr. Delcid, who presented to the emergency department on 12/16/2017 for evaluation of fever, chills, pain in her bilateral feet, patient does have underlying history of diabetes mellitus, with diabetic neuropathy. Patient had some nausea, but no vomiting, no shortness of breath, no cough, no phlegm production. She denied any abdominal pain, no back pain. Denied any urinary symptoms. Past medical history is significant for hypertension, hyperlipidemia, seizure disorder, and patient has not had seizure episodes in a long time, history of right-sided breast cancer status post right mastectomy, and chemotherapy. Patient is on Arimidex currently. She is a current every day smoker, half a pack a day for 46 years. She denies any underlying chronic lung condition. She denies any previous history of myocardial infarction, or congestive heart failure, no past history of chronic kidney disease. She states she was recently diagnosed with diabetes by Dr. Delcid, and she was started initially on metformin, however she could not tolerate it, and she is currently on a combination of Levemir and NovoLog. Patient did have fevers on presentation, with a temp of 100.8F, she was tachycardic with a rate in the 115 BPM. EKG showed normal sinus rhythm with an incomplete right bundle branch block pattern. No acute ischemic changes. Chest x-ray showed no acute cardiopulmonary process. Labs showed a CBC of 11.0 , hemoglobin of 10.7, sodium was 133, potassium is 5.2, patient had an anion gap metabolic acidosis, with CO2 of 18, BUN was 38, creatinine is 2.15. Lactic acid was elevated at 6.4, patient was given 2 L of IV fluid boluses of of 0.9 normal saline, and was started on maintenance IV fluids of 0.9 normal saline at 150 ML per hour, troponin was elevated 0.115. Patient denied any chest pain. Urinalysis showed large amount of leuk trase, red blood cells white blood cells , many bacteria. While in the emergency department, patient developed an episode of SVT, she had an episode of syncope lasting about 30 seconds, patient' s episode of SVT lasted for several seconds and subsequently patient went back into sinus rhythm. Magnesium level was 1.7, patient was given magnesium replacements. Blood and urine cultures were collected and sent, and are pending at this time, patient was started on broad-spectrum antibiotics including cefepime and vancomycin. This morning patient is seen in the intensive care unit, she is awake and alert, oriented 3, in no acute distress. No fevers overnight, maintenance IV fluid is 0.9 normal seen at a rate of 150 ML per hour, she is on levo fed currently at 3 mics per minute, she is oliguric , we will give the patient additional liter bolus of 0.9 normal saline. Cultures are pending. Patient had a left IJ triple-lumen central line catheter placed in the emergency department, follow-up chest x-ray this morning showed no acute cardiopulmonary process, and left internal jugular catheter is in the appropriate position with its tip in the superior vena cava. Lactic acid level on this morning is down to 1.2. On 12/18/2017 patient seen in follow-up in the intensive care unit, she is awake and alert, oriented 3, she did complain of been a bit lightheaded this morning, she didn't feel like she was going to pass out however there has been no recurrent episodes of syncope since the one episode in the emergency room which was likely precipitated by SVT. No recurrence of SVT on the monitor, patient remains in sinus rhythm with a controlled rate, she is hemodynamically stable, her levo fed has been on hold since 345 in the morning. Current IV fluids this 0.9 normal saline at a rate of 100 ML per hour, insulin drip is on hold. Complains of chest pain, no shortness of breath, pulse ox on 2 L per nasal cannula was 99%, afebrile, blood and urine cultures are pending, patient is on empiric antibiotics including cefepime and vancomycin. Today's labs have been reviewed, the WBCs 5.4, hemoglobin is 8.4, serum sodium is 131, potassium is 5.0, CO2 is 19, BUN is 42, creatinine is 2.37. Patient has had no recurrent episodes of syncope, she does have a remote history of seizures, however he has not had any seizure in the last 25 years, she is to follow with the neurologist in [place], however she is not able to take certain antiepileptic medications including Dilantin, and phenobarbital. We'll continue with current medical treatment. On 12/19/2017 patient seen in follow-up in the intensive care unit. She is awake and alert, in no acute distress, no shortness of breath, no chest pain, vital signs are stable, patient has been off the levo fed since 3:00 in the morning on 12/18/2017. Venous IV fluid is 0.9 normal saline at a rate of 100 ML per hour. Remains pulse ox is 94%, no fever, no chills, microbiology results have been reviewed, urine culture showed gram-negative bacilli, final cultures pending, blood cultures were negative at the 48 hour rosemarie. Patient is covered with cefepime, vancomycin has been discontinued. No recurrence of SVT, normal sinus rhythm on the monitor. No acute events overnight, lung sounds reveal bibasilar crackles, patient is working on her incentive spirometry. No recurrence of syncope. Today's blood work has been reviewed, WBC 4.7, hemoglobin is 8.3, serum sodium is 132, potassium is 5.3, chloride is 108, CO2 17, BUN is 43, creatinine is 2.31. Patient has a degree of non-anion gap metabolic acidosis, likely related to acute kidney injury. Nephrology is following. Echocardiogram has been completed, and revealed an ejection fraction of 45-50% with dilated right ventricle and evidence of moderate severe pulmonary hypertension with right-sided pressure of about 70 mmHg and moderate tricuspid regurgitation. Cardiology is following On 12/20/2017 patient seen again in follow-up in the intensive care unit. She remains stable, hemodynamically drawn no issues, patient sinus rhythm on the monitor, hemodynamically stable, she is off the vasopressor support for over 48 hours. He is awake and alert, oriented 3, no recurrence of syncope, no recurrence of arrhythmia. No shortness of breath or chest pain, lung sounds are positive for some minimal crackles at the left base, patient is working on her incentive spirometry. She was up in the chair, tolerated activity well. Final urine culture identified E. coli. No fever, no chills. Today's labs have been reviewed, WBC is 3.9, hemoglobin is 8.2, sodium is 131, potassium is 5.3, CO2 is 18, BUN is 43 and creatinine 2.08. Nephrology is following. IV 0.9 normal saline at a rate of 50 ML per hour, room air pulse ox is 94%. On 2017 patient seen in follow-up in the intensive care unit, she is about to be transferred to selective care unit. She has remained stable, no fever, no chills, hemodynamically stable. Room air pulse ox is 95%, lung sounds are clear to auscultation. Culture was positive for E. coli, patient was initially treated with cefepime and vancomycin is brought antibiotic coverage, we switched patient over to oral Levaquin yesterday. Today's labs have been reviewed, diabetes is 4.2, hemoglobin is 8.5, sodium is 135, potassium is 5.2, chloride is 111, CO2 is 17, BUN is 37, creatinine is 1.78, patient is receiving IV hydration in the form of 0.9 normal saline at a rate of 50 ML per hour, patient is getting oral replacement of sodium carbonate, nephrology is following. Objective - Vital Signs Vital signs: Vital Signs Temp 98.0 F 12/21/17 05:00 Pulse 92 12/21/17 05:00 Resp 27 H 12/21/17 05:00 BP 110/76 12/21/17 05:00 Pulse Ox 95 12/21/17 05:00 Intake & Output 12/20/17 12/21/17 12/21/17 18:59 06:59 18:59 Intake Total 1160 600 Output Total 1850 875 Balance -690 -275 Weight 143.3 kg Intake: IV 560 600 Invasive Line 3 10 Sodium Chloride 0.9% 1, 550 600 000 ml @ 50 mls/hr IV . Q20H [facility] Rx#:[id number] Oral 600 Output: Urine 1850 875 Other: Voiding Method Indwelling Catheter Indwelling Catheter - Exam GENERAL EXAM: Alert, pleasant 67-year-old obese white female comfortable in no apparent distress. HEAD: Normocephalic/atraumatic. EYES: Normal reaction of pupils, equal size. Conjunctiva pink, sclera white. NOSE: Clear with pink turbinates. THROAT: No erythema or exudates. NECK: No masses, no JVD, no thyroid enlargement, no adenopathy. CHEST: No chest wall deformity. Symmetrical expansion. LUNGS: Equal air entry with crackles over left lower base CVS: Regular rate and rhythm, distant heart sounds, normal S1 and S2, no gallops , no murmurs, no rubs ABDOMEN: Soft, nontender. No hepatosplenomegaly, normal bowel sounds, no guarding or rigidity. EXTREMITIES: No clubbing, no edema, no cyanosis, 2+ pulses and upper and lower extremities. MUSCULOSKELETAL: Muscle strength and tone normal. SPINE: No scoliosis or deformity SKIN: No rashes CENTRAL NERVOUS SYSTEM: Alert and oriented -3. No focal deficits, tone is normal in all 4 extremities. PSYCHIATRIC: Alert and oriented -3. Appropriate affect. Intact judgment and insight. - Labs CBC & Chem 7: 12/21/17 05:10 12/21/17 05:10 Labs: Abnormal Lab Results - Last 24 Hours (Table) 12/20/17 12/20/17 12/20/17 Range/Units 12:00 17:00 21:52 RBC (3.80-5.40) m/uL Hgb (11.4-16.0) gm/dL Hct (34.0-46.0) % RDW (11.5-15.5) % Plt Count (150-450) k/uL Sodium (137-145) mmol/L Potassium (3.5-5.1) mmol/L Chloride (98-107) mmol/L Carbon Dioxide (22-30) mmol/L BUN (7-17) mg/dL Creatinine (0.52-1.04) mg/dL Glucose (74-99) mg/dL POC Glucose (mg/dL) 181 H 136 H 197 H (75-99) mg/dL Albumin (3.5-5.0) g/dL 12/21/17 12/21/17 12/21/17 Range/Units 05:10 05:10 06:45 RBC 2.70 L (3.80-5.40) m/uL Hgb 8.5 L (11.4-16.0) gm/dL Hct 26.0 L (34.0-46.0) % RDW 15.9 H (11.5-15.5) % Plt Count 107 L (150-450) k/uL Sodium 135 L (137-145) mmol/L Potassium 5.2 H (3.5-5.1) mmol/L Chloride 111 H (98-107) mmol/L Carbon Dioxide 17 L (22-30) mmol/L BUN 37 H (7-17) mg/dL Creatinine 1.78 H (0.52-1.04) mg/dL Glucose 123 H (74-99) mg/dL POC Glucose (mg/dL) 117 H (75-99) mg/dL Albumin 3.0 L (3.5-5.0) g/dL Microbiology - Last 24 Hours (Table) 12/16/17 16:33 Blood Culture - Preliminary Blood No Growth after 96 hours Assessment and Plan Plan: Assessment: #1. Septic shock secondary to urinary tract infection, urine culture showed gram-negative bacilli, urine culture identified E. coli #2. Non-anion gap metabolic acidosis secondary to acute kidney injury, patient is receiving oral sodium bicarbonate #3. Episode of SVT, she has spontaneously converted back to sinus rhythm #4. Transient episode of syncope, likely secondary to SVT #5. Pulmonary hypertension of unknown etiology, echocardiogram was completed, and showed right-sided pressures of 70 mmHg, with tricuspid regurgitation, and impaired left ventricular systolic function with EF of 45-50% #6. Acute kidney injury likely related to hypotension, and steroid use #7. Mild hyponatremia, likely secondary to hypovolemia #8. Hyperglycemia likely induced by sepsis #9. Diabetes mellitus type 2 with diabetic neuropathy #10. Hypertension, hyperlipidemia #11. History of SVT #12. History of right breast cancer, status post mastectomy and chemotherapy #13. Current every day smoker, patient carries a 46-year smoking history, smoking half a pack a day #14 COPD #15. Seizure disorder #16. Chronic anemia Plan: Patient remains stable, no fever no chills, she is being treated for E. coli urinary tract infection with sepsis. Hemodynamically stable, she is on oral antibiotics in the form of Levaquin. No shortness of breath or chest pain. No acute events overnight. Patient is being transferred to selective care unit today. We'll follow on as-needed basis. I performed a history & physical examination of the patient and discussed their management with my nurse practitioner, Yesica Velázquez. I reviewed the nurse practitioner's note and agree with the documented findings and plan of care. Lung sounds are clear. The findings and the impression was discussed with the patient. I attest to the documentation by the nurse practitioner. Time with Patient: Less than 30
[2017-12-21] MEDS: HYDROcodone/APAP 5-325MG 1 EACH TAB PO PRN ×3 (08:23→23:42)
[2017-12-21] MEDS: ATORVASTATIN 40 MG TAB PO SCH (08:24)
[2017-12-21] MEDS: SODIUM BICARBONATE TAB 650 MG TAB PO SCH ×2 (08:24→20:08)
[2017-12-21] MEDS: ASPIRIN 81 MG PO SCH (08:24)
[2017-12-21] MEDS: PANTOPRAZOLE 40 MG/10 ML VIAL IV SCH (08:25)
[2017-12-21] MEDS: LORazepam 1 MG TAB PO SCH ×3 (08:25→20:08)
[2017-12-21] MEDS: LEVOFLOXACIN 250 MG TAB PO SCH (10:27)
[2017-12-21] MEDS: ANASTROZOLE 1 MG TAB PO SCH (10:28)
[2017-12-21 11:53] LABS: Glucose,Whole Blood 186 mg/dL (75-99)
--- NOTE | 2017-12-21 12:22 | PN ---
PROGRESS NOTE Mrs. Zuniga is a 67-year-old female who presented with urinary tract infection and urosepsis. She had artifact in the emergency room that was reported as SVT or ventricular tachycardia, but it was clearly artifact. She is feeling better overall. Her is better. Her breathing is better. She denies any symptoms of chest pain. She denies any dizziness. She has pulmonary hypertension and tricuspid regurgitation on her transthoracic echocardiogram. She continues to be on aspirin once a day, Lipitor 40 mg daily, Protonix. PHYSICAL EXAMINATION: Blood pressure 110/70 with the heart rate in the 80s. LUNGS: With few crackles, no wheezes. HEART: Regular rate and rhythm. S1, S2. No S3. No rub or gallop. ABDOMEN: Soft, obese, nontender. EXTREMITIES: Trace edema. LAB DATA: Lab data revealed BUN and creatinine 37 and 1.78, improved. Potassium 5.2. Hemoglobin 8.5. IMPRESSION: 1. Urosepsis with hypotension and septic shock, improved. 2. Acute renal injury, improved. 3. Prior history of hypertension, is stable off treatment. 4. Pulmonary hypertension and tricuspid regurgitation of unclear etiology. 5. Diabetes mellitus. 6. Obesity. RECOMMENDATION: From the cardiac standpoint, I will continue the present therapy. Will continue holding on the beta talisha at this time because of her blood pressure being borderline and depending on the trend, further recommendation will be made. To continue to increase the level of activity. MMODL / IJN: [id number] /
[2017-12-21 16:43] LABS: Glucose,Whole Blood 127 mg/dL (75-99)
--- NOTE | 2017-12-21 18:11 | PN ---
PROGRESS NOTE Patient is seen for followup for acute kidney injury secondary to sepsis, hypotension, hypoperfusion and urinary tract infection. Renal function has been slowly improving. Serum creatinine is down to 1.78 from 2.47 at peak. Previous creatinine was as low as 0.74 in 2016. This morning patient was seen. She was comfortable, not in any acute distress. Blood pressure was 135/90, heart rate about 100 per minute. Patient is afebrile. Examination shows trace bilateral lower extremity edema. Abdomen is soft, obese, nontender. Patient is currently heading to the bathroom. Labs show sodium 135, potassium 5.2, chloride 111, CO2 17, BUN 37, serum creatinine 1.78, hemoglobin 8.5 g/dL, phosphorus 3.8. ASSESSMENT: 1. Acute kidney injury secondary to hypotension. Urine tract infection and sepsis are currently slowly improving. Patient has been maintained on IV hydration and the fluids have been decreased to about 50 mL/hour. She has been tolerating oral intake fairly well. 2. Urinary tract infection. Urine culture grew E coli. Patient is maintained on Levaquin. 3. Type 2 diabetes. 4. Metabolic acidosis, currently maintained on sodium bicarb. 5. Mild hyperkalemia associated with renal failure. Blood sugars were high about 2 days ago, but recently they are better controlled. Patient will be maintained on a low-potassium diet. She is not on any NSAIDs or BINDU inhibitors. 6. Anemia with no active bleeding noted. Iron saturation was 23% on 12/19/2017. PLAN: Continue with oral sodium bicarb. Encourage increased oral intake. Maintain low- potassium diet. Continue IV fluids at about 50 mL/hour. Patient will need outpatient followup. MMODL / IJN: [id number] /
[2017-12-21] MEDS: INSULIN DETEMIR 100 UNIT/ML 10 ML VIAL SQ SCH (20:12)
[2017-12-21 21:15] LABS: Glucose,Whole Blood 100 mg/dL (75-99)
--- NOTE | 2017-12-22 00:28 | P.PN ---
Subjective Progress Note Date: 12/19/17 Principal diagnosis: Sepsis/septic shock secondary to urinary tract infection Mrs. Zuniga is a 67-year-old female with a past medical history of type 2 diabetes mellitus, diabetic neuropathy, COPD, hyperlipidemia, hypertension, rheumatoid arthritis, seizure disorder coming to the hospital with a chief complaint of fever chills and increased pain in her bilateral feet for the past couple of days. Patient states that she was seen by Dr. Delcid on and had few tests done but she is not sure what was done. Patient also had some nausea but did not have any abdominal pain. Patient was also having cramping sensation in her bilateral feet. She states that she was recently diagnosed with diabetes and could not tolerate metformin and so was started on combination of Levemir and NovoLog. Patient denies having any chest pain or palpitations. No cough or difficulty in breathing. Patient denies having any increased frequency of urination or dysuria or hematuria. In the emergency department patient had a temperature of 100.8 and was also found to be tachycardic and tachypneic. EKG was showing incomplete right bundle branch block. UA was positive for large leukocyte esterase with increased WBC count. Patient also had an elevated lactic acid at 6.4. She was given 2 L of IV fluid boluses, her blood pressure was still on the lower side so admitted to the ICU. She also had an episode of V. tach that lasted about a few seconds with a mild syncopal episode. Patient had urine cultures and blood cultures and that is currently pending. As the patient's blood pressure was still on the lower side she was started on Levophed. Broad-spectrum antibiotics in the form of vancomycin and cefepime have been started. Patient is currently in the ICU. This morning patient was lying in bed appears to be in no acute distress. Patient states that she still has cramping in her bilateral feet. She mentions that she has diabetic neuropathy and Dr. Delcid has been taking care of her. Patient denies having any chest pain or difficulty in breathing. She denies having any urinary symptoms. On 12/18/2017 Patient is currently more awake and oriented. Patient is currently off pressor support. Continued on IV fluids. Patient was started back on insulin regimen and is tolerating oral diet. Blood cultures and urine cultures are pending. Patient is on broad-spectrum antibiotics in the form of cefepime and vancomycin. No complaints of syncope or dizziness. No fever no chills. No other acute overnight issues. 12/19/2017 Patient is currently awake alert and oriented. No complaints of chest pain or shortness of breath. Patient is being continued on IV fluids. Currently off pressor support. Patient is still hypotensive otherwise. Continue antibiotics in the form of cefepime. No acute overnight issues. Echocardiogram has been completed, and revealed an ejection fraction of 45-50% with dilated right ventricle and evidence of moderate severe pulmonary hypertension with right-sided pressure of about 70 mmHg and moderate tricuspid regurgitation. Cardiology is following. No fever no chills. No nausea vomiting or abdominal pain. All other review of systems negative except the above Active Medications Generic Name Dose Route Start Last Admin Trade Name Freq PRN Reason Stop Dose Admin Acetaminophen 650 mg 12/17/17 01:53 EST Tylenol Tab PO Q4HR PRN Fever and/or Mild Pain Anastrozole 1 mg 12/17/17 18:15 12/18/17 09:11 Arimidex PO 1 mg DAILY ROS Administration Aspirin 81 mg 12/17/17 09:45 12/18/17 09:11 Aspirin PO 81 mg DAILY ROS Administration Atorvastatin Calcium 40 mg 12/17/17 09:45 12/18/17 09:11 Lipitor PO Not Given DAILY ROS Heparin Sodium (Porcine) 5,000 unit 12/17/17 00:00 12/18/17 17:15 Heparin SQ 5,000 unit Q8HR ROS Administration Norepinephrine Bitartrate 16 250 mls @ 0 mls/hr 12/16/17 23:00 12/18/17 03:40 mg/ Sodium Chloride IV 0 mcg/min .Q0M ROS 0 mls/hr Titration Protocol Titrate Sodium Chloride 1,000 mls @ 100 mls/hr 12/17/17 00:50 12/18/17 17:17 Saline 0.9% IV 100 mls/hr .Q10H ROS Administration Cefepime HCl 2 gm/ Sodium 50 mls @ 100 mls/hr 12/17/17 09:00 12/18/17 09:12 Chloride IVPB 100 mls/hr Q24HR ROS Administration Insulin Aspart 20 unit 12/18/17 17:30 12/18/17 17:13 Novolog SQ 20 unit AC-TID ROS Administration Insulin Aspart 0 unit 12/18/17 17:30 12/18/17 21:07 Novolog SQ 2 unit ACHS ROS Administration Protocol Insulin Detemir 70 unit 12/17/17 21:00 12/18/17 21:07 Levemir SQ 70 unit HS ROS Administration Lorazepam 1 mg 12/17/17 22:00 12/18/17 21:07 Ativan PO 1 mg TID ROS Administration Morphine Sulfate 4 mg 12/17/17 00:50 12/17/17 02:29 Morphine Sulfate (Inj) IV 4 mg Q4HR PRN Administration Pain Scale 8 to 9 Morphine Sulfate 2 mg 12/17/17 00:50 12/18/17 18:38 Morphine Sulfate (Inj) IV 2 mg Q4H PRN Administration Pain Scale 4 to 5 Naloxone HCl 0.2 mg 12/17/17 01:53 EST Narcan IV Q2M PRN Opioid Reversal Ondansetron HCl 4 mg 12/17/17 15:16 12/18/17 18:38 Zofran IVP 4 mg Q6HR PRN Administration Nausea And Vomiting Pantoprazole Sodium 40 mg 12/16/17 20:15 12/18/17 09:11 Protonix IV 40 mg DAILY ROS Administration Objective - Vital Signs Vital signs: Vital Signs Temp 96.5 F L 12/21/17 23:46 Pulse 90 12/21/17 23:46 Resp 18 12/21/17 23:46 BP 119/61 12/21/17 23:46 Pulse Ox 96 12/21/17 23:46 Intake & Output 12/21/17 12/21/17 12/22/17 06:59 18:59 06:59 Intake Total 600 240 Output Total 875 500 Balance -275 -260 Weight 143.3 kg 139.7 kg Intake: IV 600 Sodium Chloride 0.9% 1, 600 000 ml @ 50 mls/hr IV . Q20H [facility] Rx#:[id number] Oral 240 Output: Urine 875 500 Other: Voiding Method Indwelling Catheter Indwelling Catheter # Voids 1 1 # Bowel Movements 0 - Exam GEN. APPEARANCE: alert, in no apparent distress HEAD EXAM: atraumatic, normocephalic, normal inspection EYE EXAM: No pallor. No icterus ENT EXAM: normal exam, mucous membranes moist NECK EXAM: No thyromegaly. No JVD. RESPIRATORY EXAM: Distant breath sounds positive bilaterally. No wheezes or crackles. CARDIOVASCULAR EXAM: S1 and S2 heard. No additional sounds. GI/ABDOMINAL EXAM: soft, normal bowel sounds. Absent: distended, tenderness, guarding, rebound, rigid EXTREMITIES EXAM: No edema. Positive for tenderness on touching. NEUROLOGICAL EXAM: alert, oriented X3, no focal neurological deficits. PSYCHIATRIC EXAM: Tearful. Not depressed. SKIN EXAM: warm, dry, intact, normal color. Absent: rash - Labs CBC & Chem 7: 12/21/17 05:10 12/21/17 05:10 Labs: Abnormal Lab Results - Last 24 Hours (Table) 12/21/17 12/21/17 12/21/17 Range/Units 05:10 05:10 06:45 RBC 2.70 L (3.80-5.40) m/uL Hgb 8.5 L (11.4-16.0) gm/dL Hct 26.0 L (34.0-46.0) % RDW 15.9 H (11.5-15.5) % Plt Count 107 L (150-450) k/uL Sodium 135 L (137-145) mmol/L Potassium 5.2 H (3.5-5.1) mmol/L Chloride 111 H (98-107) mmol/L Carbon Dioxide 17 L (22-30) mmol/L BUN 37 H (7-17) mg/dL Creatinine 1.78 H (0.52-1.04) mg/dL Glucose 123 H (74-99) mg/dL POC Glucose (mg/dL) 117 H (75-99) mg/dL Albumin 3.0 L (3.5-5.0) g/dL 12/21/17 12/21/17 12/21/17 Range/Units 11:22 16:38 21:10 RBC (3.80-5.40) m/uL Hgb (11.4-16.0) gm/dL Hct (34.0-46.0) % RDW (11.5-15.5) % Plt Count (150-450) k/uL Sodium (137-145) mmol/L Potassium (3.5-5.1) mmol/L Chloride (98-107) mmol/L Carbon Dioxide (22-30) mmol/L BUN (7-17) mg/dL Creatinine (0.52-1.04) mg/dL Glucose (74-99) mg/dL POC Glucose (mg/dL) 186 H 127 H 100 H (75-99) mg/dL Albumin (3.5-5.0) g/dL Microbiology - Last 24 Hours (Table) 12/16/17 16:33 Blood Culture - Preliminary Blood No Growth after 120 hours Assessment and Plan Assessment: Septic shock secondary to UTI. Currently off pressor support. Metabolic acidosis Transient syncopal episode secondary to SVT Hypovolemic hyponatremia Acute kidney injury secondary to sepsis COPD Type 2 diabetes mellitus with diabetic neuropathy Hypertension Hyperlipidemia Morbid obesity with BMI of 47.2 History of breast cancer status post mastectomy and chemotherapy Nicotine dependence-current every day smoker History of seizure disorder Moderate protein calorie malnutrition Plan: Patient is currently off Levophed drip. Continue with cefepime for her UTI pending urine cultures. Patient has been started on insulin drip for better glycemic control in view of her ongoing sepsis. We will hold all nephrotoxic agents and blood pressure medications. We'll continue with morphine for her pain management. Overall prognosis is guarded. Further recommendations to follow depending on the progress of the patient. Time with Patient: Greater than 30
[2017-12-22 06:14] LABS: Glucose,Whole Blood 100 mg/dL (75-99)
[2017-12-22] MEDS: INSULIN ASPART 100 UNIT/ML 1 ML 10 ML VIAL SQ SCH ×6 (06:15→18:36)
[2017-12-22 08:03] LABS: Anisocytosis Slight; Basophils % (A) 1 %; Eosinophils # (A) 0.1 k/uL (0-0.7); Eosinophils % (A) 2 %; HCT 24.5 % (34.0-46.0); Hypochromasia Moderate; Lymphocytes # (A) 0.9 k/uL (1.0-4.8); Lymphocytes % (A) 24 %; MCH 31.6 pg (25.0-35.0); MCHC 32.7 g/dL (31.0-37.0); MCV 96.6 fL (80.0-100.0); Mean Platelet Volume 7.7; Monocytes # (A) 0.3 k/uL (0-1.0); Monocytes % (A) 8 %; Neutrophils # (A) 2.2 k/uL (1.3-7.7); Neutrophils % (A) 62 %; Platelet Count 103 k/uL (150-450); Poikilocytosis Slight; RBC 2.53 m/uL (3.80-5.40); RDW 16.1 % (11.5-15.5); WBC 3.5 k/uL (3.8-10.6)
[2017-12-22 08:18] LABS: Albumin 2.7 g/dL (3.5-5.0); Magnesium 1.8 mg/dL (1.6-2.3); Phosphorus 3.7 mg/dL (2.5-4.5); Potassium 5.2 mmol/L (3.5-5.1); Total Bilirubin 0.6 mg/dL (0.2-1.3); Total Protein 5.9 g/dL (6.3-8.2)
--- NOTE | 2017-12-22 08:43 | P.PN ---
Subjective Patient is seen in follow-up for acute kidney injury. Creatinine peaked at 2.47 this admission and is down to 1.58 today. She is noted to have E. coli UTI and is maintained on IV antibiotics. Feels tired today. Admits to good urine output. Oral intake is improving. Hemodynamically stable. Creatinine March 2015 was 0.74. Vital signs are stable. General: The patient appeared well nourished and normally developed. HEENT: Head exam is unremarkable. Neck is without jugular venous distension. LUNGS: Lungs are clear to auscultation and percussion. Breath sounds decreased. HEART: Rate and Rhythm are regular. First and second heart sounds normal. No murmurs, rubs or gallops. ABDOMEN: Abdominal exam reveals normal bowel sounds. Non-tender and non- distended. No evidence of peritonitis. EXTREMITITES: No clubbing, cyanosis, or edema. Objective - Vital Signs Vital signs: Vital Signs Temp 98.3 F 12/22/17 04:00 Pulse 93 12/22/17 04:00 Resp 20 12/22/17 04:00 BP 126/81 12/22/17 04:00 Pulse Ox 96 12/22/17 04:00 Intake & Output 12/21/17 12/22/17 12/22/17 18:59 06:59 18:59 Intake Total 240 Output Total 500 Balance -260 Weight 139.7 kg 140.4 kg Intake: Oral 240 Output: Urine 500 Other: Voiding Method Indwelling Catheter Toilet # Voids 1 1 # Bowel Movements 0 - Labs CBC & Chem 7: 12/22/17 06:37 12/22/17 06:37 Labs: Abnormal Lab Results - Last 24 Hours (Table) 12/21/17 12/21/17 12/21/17 Range/Units 11:22 16:38 21:10 WBC (3.8-10.6) k/uL RBC (3.80-5.40) m/uL Hgb (11.4-16.0) gm/dL Hct (34.0-46.0) % RDW (11.5-15.5) % Plt Count (150-450) k/uL Lymphocytes # (1.0-4.8) k/uL Potassium (3.5-5.1) mmol/L Chloride (98-107) mmol/L Carbon Dioxide (22-30) mmol/L BUN (7-17) mg/dL Creatinine (0.52-1.04) mg/dL POC Glucose (mg/dL) 186 H 127 H 100 H (75-99) mg/dL Total Protein (6.3-8.2) g/dL Albumin (3.5-5.0) g/dL 12/22/17 12/22/17 12/22/17 Range/Units 06:12 06:37 06:37 WBC 3.5 L (3.8-10.6) k/uL RBC 2.53 L (3.80-5.40) m/uL Hgb 8.0 L (11.4-16.0) gm/dL Hct 24.5 L (34.0-46.0) % RDW 16.1 H (11.5-15.5) % Plt Count 103 L (150-450) k/uL Lymphocytes # 0.9 L (1.0-4.8) k/uL Potassium 5.2 H (3.5-5.1) mmol/L Chloride 114 H (98-107) mmol/L Carbon Dioxide 18 L (22-30) mmol/L BUN 31 H (7-17) mg/dL Creatinine 1.58 H (0.52-1.04) mg/dL POC Glucose (mg/dL) 100 H (75-99) mg/dL Total Protein 5.9 L (6.3-8.2) g/dL Albumin 2.7 L (3.5-5.0) g/dL Microbiology - Last 24 Hours (Table) 12/16/17 16:33 Blood Culture - Preliminary Blood No Growth after 120 hours Assessment and Plan Plan: Assessment: 1. Nonoliguric acute kidney injury secondary to ATN secondary to sepsis and hypotension. Creatinine peaked at 4.47 this admission and is down to 1.58 today. 2. Mild hyperkalemia secondary to acute kidney injury and metabolic acidosis. 3. Metabolic acidosis secondary to acute kidney injury and IV fluids. 4. Insulin-dependent diabetes mellitus. 5. Sepsis secondary to UTI. Urine culture positive for E. coli. Maintained on oral Levaquin. Plan: Maintain normal saline at 50 mL an hour. Encourage oral intake. Increase dose of sodium bicarbonate 1300 mg twice daily. Maintain low potassium diet. Repeat electrolytes in the morning.
[2017-12-22] MEDS: SODIUM BICARBONATE TAB 650 MG TAB PO SCH ×2 (10:03→22:52)
[2017-12-22] MEDS: LORazepam 1 MG TAB PO SCH ×3 (10:04→22:51)
[2017-12-22] MEDS: DOCUSATE 100 MG CAP PO SCH (10:04)
[2017-12-22] MEDS: HYDROcodone/APAP 5-325MG 1 EACH TAB PO PRN ×3 (10:04→22:51)
[2017-12-22] MEDS: ASPIRIN 81 MG PO SCH (10:04)
[2017-12-22] MEDS: ATORVASTATIN 40 MG TAB PO SCH (10:04)
[2017-12-22] MEDS: PANTOPRAZOLE 40 MG/10 ML VIAL IV SCH (10:05)
[2017-12-22] MEDS: LEVOFLOXACIN 250 MG TAB PO SCH (10:19)
[2017-12-22] MEDS: ANASTROZOLE 1 MG TAB PO SCH (10:19)
[2017-12-22] MEDS: HEPARIN SODIUM,PORCINE 5,000 UNIT/ML 1 ML VIAL SQ SCH ×3 (10:20→22:52)
--- NOTE | 2017-12-22 11:14 | P.PN ---
Subjective Progress Note Date: 12/22/17 This is a pleasant 67-year-old female who presented with urinary tract infection and urosepsis. She had artifact in the emergency department that was reported as SVT or ventricular tachycardia, but was clearly artifact. Overall she's feeling better complains of a headache this morning though. Her edema has improved, her breathing is better. She denies symptoms of chest discomfort , dizziness. She has pulmonary hypertension and tricuspid regurgitation on her transthoracic echocardiogram. Labs this morning showed hemoglobin 8.0, potassium 5.2, BUN 31 and creatinine 1.58. She's being followed by nephrology. Her vital signs are stable. Objective - Vital Signs Vital signs: Vital Signs Temp 98.3 F 12/22/17 04:00 Pulse 93 12/22/17 04:00 Resp 20 12/22/17 04:00 BP 126/81 12/22/17 04:00 Pulse Ox 96 12/22/17 04:00 Intake & Output 12/21/17 12/22/17 12/22/17 18:59 06:59 18:59 Intake Total 240 180 Output Total 500 Balance -260 180 Weight 139.7 kg 140.4 kg Intake: Oral 240 180 Output: Urine 500 Other: Voiding Method Indwelling Catheter Toilet # Voids 1 1 # Bowel Movements 0 - Exam PHYSICAL EXAMINATION: HEENT: Head is atraumatic, normocephalic. Pupils equal, round. Neck is supple. There is no elevated jugular venous pressure. HEART EXAMINATION: Heart sounds regular, S1 and S2 normal. No murmur or gallop heard. CHEST EXAMINATION: Lungs reveal few bibasilar crackles. No chest wall tenderness is noted on palpation or with deep breathing. ABDOMEN: Soft, obese, nontender. Bowel sounds are heard. No organomegaly noted. EXTREMITIES: 2+ peripheral pulses with evidence of trace peripheral edema and no calf tenderness noted. NEUROLOGIC patient is awake, alert and oriented x3. . - Labs CBC & Chem 7: 12/22/17 06:37 12/22/17 06:37 Labs: Abnormal Lab Results - Last 24 Hours (Table) 12/21/17 12/21/17 12/21/17 Range/Units 11:22 16:38 21:10 WBC (3.8-10.6) k/uL RBC (3.80-5.40) m/uL Hgb (11.4-16.0) gm/dL Hct (34.0-46.0) % RDW (11.5-15.5) % Plt Count (150-450) k/uL Lymphocytes # (1.0-4.8) k/uL Potassium (3.5-5.1) mmol/L Chloride (98-107) mmol/L Carbon Dioxide (22-30) mmol/L BUN (7-17) mg/dL Creatinine (0.52-1.04) mg/dL POC Glucose (mg/dL) 186 H 127 H 100 H (75-99) mg/dL Total Protein (6.3-8.2) g/dL Albumin (3.5-5.0) g/dL 12/22/17 12/22/17 12/22/17 Range/Units 06:12 06:37 06:37 WBC 3.5 L (3.8-10.6) k/uL RBC 2.53 L (3.80-5.40) m/uL Hgb 8.0 L (11.4-16.0) gm/dL Hct 24.5 L (34.0-46.0) % RDW 16.1 H (11.5-15.5) % Plt Count 103 L (150-450) k/uL Lymphocytes # 0.9 L (1.0-4.8) k/uL Potassium 5.2 H (3.5-5.1) mmol/L Chloride 114 H (98-107) mmol/L Carbon Dioxide 18 L (22-30) mmol/L BUN 31 H (7-17) mg/dL Creatinine 1.58 H (0.52-1.04) mg/dL POC Glucose (mg/dL) 100 H (75-99) mg/dL Total Protein 5.9 L (6.3-8.2) g/dL Albumin 2.7 L (3.5-5.0) g/dL Microbiology - Last 24 Hours (Table) 12/16/17 16:33 Blood Culture - Preliminary Blood No Growth after 120 hours Assessment and Plan Assessment: #1 urosepsis with hypotension and septic shock, improved #2 acute renal injury, improved #3 prior history of hypertension #4 pulmonary hypertension and tricuspid regurgitation of unclear etiology #5 diabetes mellitus #6 obesity Plan: From cardiology's perspective, we will add small dose beta talisha. Continue to follow the patient and provide further recommendations accordingly. [employer] note has been reviewed, I agree with a documented findings and plan of care. Patient was seen and examined.
[2017-12-22 12:04] LABS: Glucose,Whole Blood 150 mg/dL (75-99)
[2017-12-22] MEDS: ACETAMINOPHEN TAB 325 MG TAB PO PRN (12:50)
[2017-12-22 16:44] LABS: Glucose,Whole Blood 106 mg/dL (75-99)
--- NOTE | 2017-12-22 17:21 | P.PN ---
Subjective Progress Note Date: 12/20/17 Principal diagnosis: Sepsis/septic shock secondary to urinary tract infection Mrs. Zuniga is a 67-year-old female with a past medical history of type 2 diabetes mellitus, diabetic neuropathy, COPD, hyperlipidemia, hypertension, rheumatoid arthritis, seizure disorder coming to the hospital with a chief complaint of fever chills and increased pain in her bilateral feet for the past couple of days. Patient states that she was seen by Dr. Delcid on and had few tests done but she is not sure what was done. Patient also had some nausea but did not have any abdominal pain. Patient was also having cramping sensation in her bilateral feet. She states that she was recently diagnosed with diabetes and could not tolerate metformin and so was started on combination of Levemir and NovoLog. Patient denies having any chest pain or palpitations. No cough or difficulty in breathing. Patient denies having any increased frequency of urination or dysuria or hematuria. In the emergency department patient had a temperature of 100.8 and was also found to be tachycardic and tachypneic. EKG was showing incomplete right bundle branch block. UA was positive for large leukocyte esterase with increased WBC count. Patient also had an elevated lactic acid at 6.4. She was given 2 L of IV fluid boluses, her blood pressure was still on the lower side so admitted to the ICU. She also had an episode of V. tach that lasted about a few seconds with a mild syncopal episode. Patient had urine cultures and blood cultures and that is currently pending. As the patient's blood pressure was still on the lower side she was started on Levophed. Broad-spectrum antibiotics in the form of vancomycin and cefepime have been started. Patient is currently in the ICU. This morning patient was lying in bed appears to be in no acute distress. Patient states that she still has cramping in her bilateral feet. She mentions that she has diabetic neuropathy and Dr. Delcid has been taking care of her. Patient denies having any chest pain or difficulty in breathing. She denies having any urinary symptoms. On 12/18/2017 Patient is currently more awake and oriented. Patient is currently off pressor support. Continued on IV fluids. Patient was started back on insulin regimen and is tolerating oral diet. Blood cultures and urine cultures are pending. Patient is on broad-spectrum antibiotics in the form of cefepime and vancomycin. No complaints of syncope or dizziness. No fever no chills. No other acute overnight issues. 12/19/2017 Patient is currently awake alert and oriented. No complaints of chest pain or shortness of breath. Patient is being continued on IV fluids. Currently off pressor support. Patient is still hypotensive otherwise. Continue antibiotics in the form of cefepime. No acute overnight issues. Echocardiogram has been completed, and revealed an ejection fraction of 45-50% with dilated right ventricle and evidence of moderate severe pulmonary hypertension with right-sided pressure of about 70 mmHg and moderate tricuspid regurgitation. Cardiology is following. No fever no chills. No nausea vomiting or abdominal pain. 12/20/2017 Patient is off pressors and is hemodynamically stable. Still complaining of dizzy and weak. Patient is working with physical therapy. Otherwise mentation is much improved and is awake alert oriented. Feels generalized weakness. No chest pain or worsening shortness of breath. Blood cultures continues to be negative. Patient is being continued on antibiotics for E. coli urinary tract infection. No fever no chills. Renal function is improving with creatinine level II.08. No other acute overnight issues. Patient is being transferred to medical floor today. All other review of systems negative except the above Active Medications Generic Name Dose Route Start Last Admin Trade Name Freq PRN Reason Stop Dose Admin Acetaminophen 650 mg 12/17/17 01:53 EST Tylenol Tab PO Q4HR PRN Fever and/or Mild Pain Anastrozole 1 mg 12/17/17 18:15 12/18/17 09:11 Arimidex PO 1 mg DAILY ROS Administration Aspirin 81 mg 12/17/17 09:45 12/18/17 09:11 Aspirin PO 81 mg DAILY ROS Administration Atorvastatin Calcium 40 mg 12/17/17 09:45 12/18/17 09:11 Lipitor PO Not Given DAILY ROS Heparin Sodium (Porcine) 5,000 unit 12/17/17 00:00 12/18/17 17:15 Heparin SQ 5,000 unit Q8HR ROS Administration Norepinephrine Bitartrate 16 250 mls @ 0 mls/hr 12/16/17 23:00 12/18/17 03:40 mg/ Sodium Chloride IV 0 mcg/min .Q0M ROS 0 mls/hr Titration Protocol Titrate Sodium Chloride 1,000 mls @ 100 mls/hr 12/17/17 00:50 12/18/17 17:17 Saline 0.9% IV 100 mls/hr .Q10H ROS Administration Cefepime HCl 2 gm/ Sodium 50 mls @ 100 mls/hr 12/17/17 09:00 12/18/17 09:12 Chloride IVPB 100 mls/hr Q24HR ROS Administration Insulin Aspart 20 unit 12/18/17 17:30 12/18/17 17:13 Novolog SQ 20 unit AC-TID ROS Administration Insulin Aspart 0 unit 12/18/17 17:30 12/18/17 21:07 Novolog SQ 2 unit ACHS ROS Administration Protocol Insulin Detemir 70 unit 12/17/17 21:00 12/18/17 21:07 Levemir SQ 70 unit HS ROS Administration Lorazepam 1 mg 12/17/17 22:00 12/18/17 21:07 Ativan PO 1 mg TID ROS Administration Morphine Sulfate 4 mg 12/17/17 00:50 12/17/17 02:29 Morphine Sulfate (Inj) IV 4 mg Q4HR PRN Administration Pain Scale 8 to 9 Morphine Sulfate 2 mg 12/17/17 00:50 12/18/17 18:38 Morphine Sulfate (Inj) IV 2 mg Q4H PRN Administration Pain Scale 4 to 5 Naloxone HCl 0.2 mg 12/17/17 01:53 EST Narcan IV Q2M PRN Opioid Reversal Ondansetron HCl 4 mg 12/17/17 15:16 12/18/17 18:38 Zofran IVP 4 mg Q6HR PRN Administration Nausea And Vomiting Pantoprazole Sodium 40 mg 12/16/17 20:15 12/18/17 09:11 Protonix IV 40 mg DAILY ROS Administration Objective - Vital Signs Vital signs: Vital Signs Temp 98.1 F 12/20/17 08:00 Pulse 86 12/20/17 11:00 Resp 18 12/20/17 11:00 BP 114/78 12/20/17 11:00 Pulse Ox 90 L 12/20/17 11:00 Intake & Output 12/19/17 12/20/17 12/20/17 18:59 06:59 18:59 Intake Total 1150 600 490 Output Total 690 1460 1100 Balance 460 -230 -610 Weight 140.7 kg 143 kg Intake: IV 900 600 250 Cefepime 2 gm In Sodium 150 Chloride 0.9% 50 ml @ 100 mls/hr IVPB Q24HR [facility] Rx #:[id number] Sodium Chloride 0.9% 1, 450 000 ml @ 100 mls/hr IV . Q10H [facility] Rx#:[id number] Sodium Chloride 0.9% 1, 300 600 250 000 ml @ 50 mls/hr IV . Q20H [facility] Rx#:[id number] Oral 250 240 Output: Urine 690 1460 1100 Other: Voiding Method Indwelling Catheter Indwelling Catheter Indwelling Catheter - Exam GEN. APPEARANCE: alert, in no apparent distress HEAD EXAM: atraumatic, normocephalic, normal inspection EYE EXAM: No pallor. No icterus ENT EXAM: normal exam, mucous membranes moist NECK EXAM: No thyromegaly. No JVD. RESPIRATORY EXAM: Distant breath sounds positive bilaterally. No wheezes or crackles. CARDIOVASCULAR EXAM: S1 and S2 heard. No additional sounds. GI/ABDOMINAL EXAM: soft, normal bowel sounds. Absent: distended, tenderness, guarding, rebound, rigid EXTREMITIES EXAM: No edema. Positive for tenderness on touching. NEUROLOGICAL EXAM: alert, oriented X3, no focal neurological deficits. PSYCHIATRIC EXAM: Tearful. Not depressed. SKIN EXAM: warm, dry, intact, normal color. Absent: rash - Labs CBC & Chem 7: 12/22/17 06:37 12/22/17 06:37 Labs: Abnormal Lab Results - Last 24 Hours (Table) 12/19/17 12/19/17 12/20/17 Range/Units 17:00 21:19 04:55 RBC 2.64 L (3.80-5.40) m/uL Hgb 8.2 L (11.4-16.0) gm/dL Hct 24.7 L (34.0-46.0) % RDW 16.1 H (11.5-15.5) % Plt Count 103 L (150-450) k/uL Sodium (137-145) mmol/L Potassium (3.5-5.1) mmol/L Chloride (98-107) mmol/L Carbon Dioxide (22-30) mmol/L BUN (7-17) mg/dL Creatinine (0.52-1.04) mg/dL Glucose (74-99) mg/dL POC Glucose (mg/dL) 164 H 136 H (75-99) mg/dL Total Protein (6.3-8.2) g/dL Albumin (3.5-5.0) g/dL 12/20/17 12/20/17 12/20/17 Range/Units 04:55 06:52 12:00 RBC (3.80-5.40) m/uL Hgb (11.4-16.0) gm/dL Hct (34.0-46.0) % RDW (11.5-15.5) % Plt Count (150-450) k/uL Sodium 131 L (137-145) mmol/L Potassium 5.3 H (3.5-5.1) mmol/L Chloride 108 H (98-107) mmol/L Carbon Dioxide 18 L (22-30) mmol/L BUN 43 H (7-17) mg/dL Creatinine 2.08 H (0.52-1.04) mg/dL Glucose 125 H (74-99) mg/dL POC Glucose (mg/dL) 145 H 181 H (75-99) mg/dL Total Protein 6.1 L (6.3-8.2) g/dL Albumin 2.7 L (3.5-5.0) g/dL Microbiology - Last 24 Hours (Table) 12/16/17 16:33 Blood Culture - Preliminary Blood No Growth after 72 hours 12/16/17 20:50 Urine Culture - Final Urine,Catheterized Escherichia coli Assessment and Plan Assessment: Septic shock secondary to UTI. Currently off pressor support. Metabolic acidosis Transient syncopal episode secondary to SVT Hypovolemic hyponatremia Acute kidney injury secondary to sepsis COPD Type 2 diabetes mellitus with diabetic neuropathy Hypertension Hyperlipidemia Morbid obesity with BMI of 47.2 History of breast cancer status post mastectomy and chemotherapy Nicotine dependence-current every day smoker History of seizure disorder Moderate protein calorie malnutrition Plan: Patient is currently off Levophed drip. Continue with cefepime for her UTI E. coli and the culture report.. Patient has been started on insulin drip for better glycemic control in view of her ongoing sepsis. We will hold all nephrotoxic agents and blood pressure medications. We'll continue with morphine for her pain management. Overall prognosis is guarded. Further recommendations to follow depending on the progress of the patient. Time with Patient: Greater than 30
--- NOTE | 2017-12-22 17:23 | P.PN ---
Subjective Progress Note Date: 12/21/17 Principal diagnosis: Sepsis/septic shock secondary to urinary tract infection Mrs. Zuniga is a 67-year-old female with a past medical history of type 2 diabetes mellitus, diabetic neuropathy, COPD, hyperlipidemia, hypertension, rheumatoid arthritis, seizure disorder coming to the hospital with a chief complaint of fever chills and increased pain in her bilateral feet for the past couple of days. Patient states that she was seen by Dr. Delcid on and had few tests done but she is not sure what was done. Patient also had some nausea but did not have any abdominal pain. Patient was also having cramping sensation in her bilateral feet. She states that she was recently diagnosed with diabetes and could not tolerate metformin and so was started on combination of Levemir and NovoLog. Patient denies having any chest pain or palpitations. No cough or difficulty in breathing. Patient denies having any increased frequency of urination or dysuria or hematuria. In the emergency department patient had a temperature of 100.8 and was also found to be tachycardic and tachypneic. EKG was showing incomplete right bundle branch block. UA was positive for large leukocyte esterase with increased WBC count. Patient also had an elevated lactic acid at 6.4. She was given 2 L of IV fluid boluses, her blood pressure was still on the lower side so admitted to the ICU. She also had an episode of V. tach that lasted about a few seconds with a mild syncopal episode. Patient had urine cultures and blood cultures and that is currently pending. As the patient's blood pressure was still on the lower side she was started on Levophed. Broad-spectrum antibiotics in the form of vancomycin and cefepime have been started. Patient is currently in the ICU. This morning patient was lying in bed appears to be in no acute distress. Patient states that she still has cramping in her bilateral feet. She mentions that she has diabetic neuropathy and Dr. Delcid has been taking care of her. Patient denies having any chest pain or difficulty in breathing. She denies having any urinary symptoms. On 12/18/2017 Patient is currently more awake and oriented. Patient is currently off pressor support. Continued on IV fluids. Patient was started back on insulin regimen and is tolerating oral diet. Blood cultures and urine cultures are pending. Patient is on broad-spectrum antibiotics in the form of cefepime and vancomycin. No complaints of syncope or dizziness. No fever no chills. No other acute overnight issues. 12/19/2017 Patient is currently awake alert and oriented. No complaints of chest pain or shortness of breath. Patient is being continued on IV fluids. Currently off pressor support. Patient is still hypotensive otherwise. Continue antibiotics in the form of cefepime. No acute overnight issues. Echocardiogram has been completed, and revealed an ejection fraction of 45-50% with dilated right ventricle and evidence of moderate severe pulmonary hypertension with right-sided pressure of about 70 mmHg and moderate tricuspid regurgitation. Cardiology is following. No fever no chills. No nausea vomiting or abdominal pain. 12/20/2017 Patient is off pressors and is hemodynamically stable. Still complaining of dizzy and weak. Patient is working with physical therapy. Otherwise mentation is much improved and is awake alert oriented. Feels generalized weakness. No chest pain or worsening shortness of breath. Blood cultures continues to be negative. Patient is being continued on antibiotics for E. coli urinary tract infection. No fever no chills. Renal function is improving with creatinine level II.08. No other acute overnight issues. Patient is being transferred to medical floor today. 12/21/2017 Patient has been afebrile. Otherwise sitting in the chair comfortably. Still having generalized weakness. Blood pressure is much improved now. Antibodies were changed to Levaquin by mouth. Renal function continues to improve. Nephrology and pulmonary is following. No other acute overnight issues. All other review of systems negative except the above Objective - Vital Signs Vital signs: Vital Signs Temp 97.2 F L 12/21/17 08:00 Pulse 100 12/21/17 08:00 Resp 27 H 12/21/17 08:00 BP 135/90 12/21/17 08:00 Pulse Ox 97 12/21/17 08:00 Intake & Output 12/20/17 12/21/17 12/21/17 18:59 06:59 18:59 Intake Total 1160 600 Output Total 1850 875 500 Balance -690 -275 -500 Weight 143.3 kg 139.7 kg Intake: IV 560 600 Invasive Line 3 10 Sodium Chloride 0.9% 1, 550 600 000 ml @ 50 mls/hr IV . Q20H [facility] Rx#:[id number] Oral 600 Output: Urine 1850 875 500 Other: Voiding Method Indwelling Catheter Indwelling Catheter # Bowel Movements 0 - Exam GEN. APPEARANCE: alert, in no apparent distress HEAD EXAM: atraumatic, normocephalic, normal inspection EYE EXAM: No pallor. No icterus ENT EXAM: normal exam, mucous membranes moist NECK EXAM: No thyromegaly. No JVD. RESPIRATORY EXAM: Distant breath sounds positive bilaterally. No wheezes or crackles. CARDIOVASCULAR EXAM: S1 and S2 heard. No additional sounds. GI/ABDOMINAL EXAM: soft, normal bowel sounds. Absent: distended, tenderness, guarding, rebound, rigid EXTREMITIES EXAM: No edema. Positive for tenderness on touching. NEUROLOGICAL EXAM: alert, oriented X3, no focal neurological deficits. PSYCHIATRIC EXAM: Tearful. Not depressed. SKIN EXAM: warm, dry, intact, normal color. Absent: rash - Labs CBC & Chem 7: 12/22/17 06:37 12/22/17 06:37 Labs: Abnormal Lab Results - Last 24 Hours (Table) 12/20/17 12/20/17 12/21/17 Range/Units 17:00 21:52 05:10 RBC 2.70 L (3.80-5.40) m/uL Hgb 8.5 L (11.4-16.0) gm/dL Hct 26.0 L (34.0-46.0) % RDW 15.9 H (11.5-15.5) % Plt Count 107 L (150-450) k/uL Sodium (137-145) mmol/L Potassium (3.5-5.1) mmol/L Chloride (98-107) mmol/L Carbon Dioxide (22-30) mmol/L BUN (7-17) mg/dL Creatinine (0.52-1.04) mg/dL Glucose (74-99) mg/dL POC Glucose (mg/dL) 136 H 197 H (75-99) mg/dL Albumin (3.5-5.0) g/dL 12/21/17 12/21/17 12/21/17 Range/Units 05:10 06:45 11:22 RBC (3.80-5.40) m/uL Hgb (11.4-16.0) gm/dL Hct (34.0-46.0) % RDW (11.5-15.5) % Plt Count (150-450) k/uL Sodium 135 L (137-145) mmol/L Potassium 5.2 H (3.5-5.1) mmol/L Chloride 111 H (98-107) mmol/L Carbon Dioxide 17 L (22-30) mmol/L BUN 37 H (7-17) mg/dL Creatinine 1.78 H (0.52-1.04) mg/dL Glucose 123 H (74-99) mg/dL POC Glucose (mg/dL) 117 H 186 H (75-99) mg/dL Albumin 3.0 L (3.5-5.0) g/dL Microbiology - Last 24 Hours (Table) 12/16/17 16:33 Blood Culture - Preliminary Blood No Growth after 96 hours Assessment and Plan Assessment: Septic shock secondary to UTI. Currently off pressor support. Metabolic acidosis Transient syncopal episode secondary to SVT Hypovolemic hyponatremia Acute kidney injury secondary to sepsis COPD Type 2 diabetes mellitus with diabetic neuropathy Hypertension Hyperlipidemia Morbid obesity with BMI of 47.2 History of breast cancer status post mastectomy and chemotherapy Nicotine dependence-current every day smoker History of seizure disorder Moderate protein calorie malnutrition Plan: Patient is currently off Levophed drip. Continue with cefepime for her UTI E. coli and the culture report.. Patient has been started on insulin drip for better glycemic control in view of her ongoing sepsis. We will hold all nephrotoxic agents and blood pressure medications. We'll continue with morphine for her pain management. Overall prognosis is guarded. Further recommendations to follow depending on the progress of the patient. Time with Patient: Greater than 30
[2017-12-22 21:00] LABS: Glucose,Whole Blood 125 mg/dL (75-99)
[2017-12-22] MEDS: INSULIN DETEMIR 100 UNIT/ML 10 ML VIAL SQ SCH (22:52)
--- NOTE | 2017-12-23 02:20 | P.PN ---
Subjective Progress Note Date: 12/22/17 Principal diagnosis: Sepsis/septic shock secondary to urinary tract infection Mrs. Zuniga is a 67-year-old female with a past medical history of type 2 diabetes mellitus, diabetic neuropathy, COPD, hyperlipidemia, hypertension, rheumatoid arthritis, seizure disorder coming to the hospital with a chief complaint of fever chills and increased pain in her bilateral feet for the past couple of days. Patient states that she was seen by Dr. Delcid on and had few tests done but she is not sure what was done. Patient also had some nausea but did not have any abdominal pain. Patient was also having cramping sensation in her bilateral feet. She states that she was recently diagnosed with diabetes and could not tolerate metformin and so was started on combination of Levemir and NovoLog. Patient denies having any chest pain or palpitations. No cough or difficulty in breathing. Patient denies having any increased frequency of urination or dysuria or hematuria. In the emergency department patient had a temperature of 100.8 and was also found to be tachycardic and tachypneic. EKG was showing incomplete right bundle branch block. UA was positive for large leukocyte esterase with increased WBC count. Patient also had an elevated lactic acid at 6.4. She was given 2 L of IV fluid boluses, her blood pressure was still on the lower side so admitted to the ICU. She also had an episode of V. tach that lasted about a few seconds with a mild syncopal episode. Patient had urine cultures and blood cultures and that is currently pending. As the patient's blood pressure was still on the lower side she was started on Levophed. Broad-spectrum antibiotics in the form of vancomycin and cefepime have been started. Patient is currently in the ICU. This morning patient was lying in bed appears to be in no acute distress. Patient states that she still has cramping in her bilateral feet. She mentions that she has diabetic neuropathy and Dr. Delcid has been taking care of her. Patient denies having any chest pain or difficulty in breathing. She denies having any urinary symptoms. On 12/18/2017 Patient is currently more awake and oriented. Patient is currently off pressor support. Continued on IV fluids. Patient was started back on insulin regimen and is tolerating oral diet. Blood cultures and urine cultures are pending. Patient is on broad-spectrum antibiotics in the form of cefepime and vancomycin. No complaints of syncope or dizziness. No fever no chills. No other acute overnight issues. 12/19/2017 Patient is currently awake alert and oriented. No complaints of chest pain or shortness of breath. Patient is being continued on IV fluids. Currently off pressor support. Patient is still hypotensive otherwise. Continue antibiotics in the form of cefepime. No acute overnight issues. Echocardiogram has been completed, and revealed an ejection fraction of 45-50% with dilated right ventricle and evidence of moderate severe pulmonary hypertension with right-sided pressure of about 70 mmHg and moderate tricuspid regurgitation. Cardiology is following. No fever no chills. No nausea vomiting or abdominal pain. 12/20/2017 Patient is off pressors and is hemodynamically stable. Still complaining of dizzy and weak. Patient is working with physical therapy. Otherwise mentation is much improved and is awake alert oriented. Feels generalized weakness. No chest pain or worsening shortness of breath. Blood cultures continues to be negative. Patient is being continued on antibiotics for E. coli urinary tract infection. No fever no chills. Renal function is improving with creatinine level II.08. No other acute overnight issues. Patient is being transferred to medical floor today. 12/21/2017 Patient has been afebrile. Otherwise sitting in the chair comfortably. Still having generalized weakness. Blood pressure is much improved now. Antibodies were changed to Levaquin by mouth. Renal function continues to improve. Nephrology and pulmonary is following. No other acute overnight issues. 12/22/2017 Patient today is able to ambulate with support. Otherwise overall clinically improving. Renal function continues to improve with creatinine level I.54 today. Nephrology is following. Blood pressure is stable. No fever no chills. Potassium 5.2. Continued on Levaquin for UTI. Patient can be discharged home tomorrow with family and home physical therapy. Current medications reviewed. Objective - Vital Signs Vital signs: Vital Signs Temp 98.5 F 12/22/17 16:00 Pulse 90 12/22/17 16:00 Resp 20 12/22/17 16:00 BP 125/70 12/22/17 16:00 Pulse Ox 98 12/22/17 16:00 Intake & Output 12/22/17 12/22/17 12/23/17 06:59 18:59 06:59 Intake Total 760 Balance 760 Weight 140.4 kg Intake: Oral 760 Other: Voiding Method Toilet Toilet # Voids 1 - Exam GEN. APPEARANCE: alert, in no apparent distress HEAD EXAM: atraumatic, normocephalic, normal inspection EYE EXAM: No pallor. No icterus ENT EXAM: normal exam, mucous membranes moist NECK EXAM: No thyromegaly. No JVD. RESPIRATORY EXAM: Distant breath sounds positive bilaterally. No wheezes or crackles. CARDIOVASCULAR EXAM: S1 and S2 heard. No additional sounds. GI/ABDOMINAL EXAM: soft, normal bowel sounds. Absent: distended, tenderness, guarding, rebound, rigid EXTREMITIES EXAM: No edema. Positive for tenderness on touching. NEUROLOGICAL EXAM: alert, oriented X3, no focal neurological deficits. PSYCHIATRIC EXAM: Tearful. Not depressed. SKIN EXAM: warm, dry, intact, normal color. Absent: rash - Labs CBC & Chem 7: 12/22/17 06:37 12/22/17 06:37 Labs: Abnormal Lab Results - Last 24 Hours (Table) 12/22/17 12/22/17 12/22/17 Range/Units 06:12 06:37 06:37 WBC 3.5 L (3.8-10.6) k/uL RBC 2.53 L (3.80-5.40) m/uL Hgb 8.0 L (11.4-16.0) gm/dL Hct 24.5 L (34.0-46.0) % RDW 16.1 H (11.5-15.5) % Plt Count 103 L (150-450) k/uL Lymphocytes # 0.9 L (1.0-4.8) k/uL Potassium 5.2 H (3.5-5.1) mmol/L Chloride 114 H (98-107) mmol/L Carbon Dioxide 18 L (22-30) mmol/L BUN 31 H (7-17) mg/dL Creatinine 1.58 H (0.52-1.04) mg/dL POC Glucose (mg/dL) 100 H (75-99) mg/dL Total Protein 5.9 L (6.3-8.2) g/dL Albumin 2.7 L (3.5-5.0) g/dL 12/22/17 12/22/17 12/22/17 Range/Units 12:03 16:43 20:45 WBC (3.8-10.6) k/uL RBC (3.80-5.40) m/uL Hgb (11.4-16.0) gm/dL Hct (34.0-46.0) % RDW (11.5-15.5) % Plt Count (150-450) k/uL Lymphocytes # (1.0-4.8) k/uL Potassium (3.5-5.1) mmol/L Chloride (98-107) mmol/L Carbon Dioxide (22-30) mmol/L BUN (7-17) mg/dL Creatinine (0.52-1.04) mg/dL POC Glucose (mg/dL) 150 H 106 H 125 H (75-99) mg/dL Total Protein (6.3-8.2) g/dL Albumin (3.5-5.0) g/dL Microbiology - Last 24 Hours (Table) 12/16/17 16:33 Blood Culture - Final Blood No Growth after 144 hours Assessment and Plan Assessment: Septic shock secondary to E. coli UTI. Currently off pressor support. Blood pressure is stable. Metabolic acidosis. Currently on bicarb tablets Transient syncopal episode secondary to SVT. Likely artifact as per cardiology. Hypovolemic hyponatremia. Resolved Acute kidney injury secondary to sepsis. Improving COPD Type 2 diabetes mellitus with diabetic neuropathy Hypertension Hyperlipidemia Morbid obesity with BMI of 47.2 History of breast cancer status post mastectomy and chemotherapy Nicotine dependence-current every day smoker History of seizure disorder Moderate protein calorie malnutrition Plan: Continue with gentle hydration. Continued with cefepime for her UTI E. coli and the culture report. Changed to Levaquin 250 mg daily. Continue with insulin dosing as per home regimen. We will hold all nephrotoxic agents and blood pressure medications. Continue pain management with [facility]. Overall prognosis is guarded. Further recommendations to follow depending on the progress of the patient. Time with Patient: Greater than 30
[2017-12-23 05:46] LABS: Glucose,Whole Blood 81 mg/dL (75-99)
[2017-12-23 07:02] LABS: Potassium 5.2 mmol/L (3.5-5.1)
[2017-12-23] MEDS: DOCUSATE 100 MG CAP PO SCH ×3 (07:04→21:39)
[2017-12-23] MEDS: INSULIN ASPART 100 UNIT/ML 1 ML 10 ML VIAL SQ SCH ×7 (07:05→17:33)
--- NOTE | 2017-12-23 09:31 | P.PN ---
Subjective Progress Note Date: 12/23/17 Principal diagnosis: This 67-year-old female seen in consultation because of acute kidney injury, creatinine is getting better with hydration. She had E. coli UTI but no bacteremia. Patient continues to have generalized weakness. She suffers from diabetes as well as rheumatoid arthritis and is only on nonsteroidals. She has diabetic neuropathy and had a episode of V. tach lasting few seconds with some syncopal symptoms. She was on levo fed that has been discontinued. Denies any nausea vomiting appetite is fair no diarrhea. The dysuria frequency all resolved. She is able to stand up without any dizziness but has generalized weakness. Objective - Vital Signs Vital signs: Vital Signs Temp 97.6 F 12/23/17 09:00 Pulse 90 12/23/17 09:00 Resp 18 12/23/17 09:00 BP 135/69 12/23/17 09:00 Pulse Ox 96 12/23/17 09:00 Intake & Output 12/22/17 12/23/17 12/23/17 18:59 06:59 18:59 Intake Total 760 180 Output Total 500 Balance 760 -500 180 Weight 140.5 kg Intake: Oral 760 180 Output: Urine 500 Other: Voiding Method Toilet Toilet # Voids 1 1 # Bowel Movements 0 On examination she is awake alert oriented but looks tired. HEENT exam no JVP neck is supple no facial asymmetry Infected auscultation good air entry bilaterally Heart sounds are unremarkable for any murmur rub gallop Abdomen soft nontender obese Extremity exam was trace edema possibly. Neurologically awake alert oriented but generalized weakness - Labs CBC & Chem 7: 12/22/17 06:37 12/23/17 06:06 Labs: Abnormal Lab Results - Last 24 Hours (Table) 12/22/17 12/22/17 12/22/17 Range/Units 12:03 16:43 20:45 Potassium (3.5-5.1) mmol/L Chloride (98-107) mmol/L Carbon Dioxide (22-30) mmol/L BUN (7-17) mg/dL Creatinine (0.52-1.04) mg/dL POC Glucose (mg/dL) 150 H 106 H 125 H (75-99) mg/dL 12/23/17 Range/Units 06:06 Potassium 5.2 H (3.5-5.1) mmol/L Chloride 113 H (98-107) mmol/L Carbon Dioxide 19 L (22-30) mmol/L BUN 27 H (7-17) mg/dL Creatinine 1.36 H (0.52-1.04) mg/dL POC Glucose (mg/dL) (75-99) mg/dL Microbiology - Last 24 Hours (Table) 12/16/17 16:33 Blood Culture - Final Blood No Growth after 144 hours Assessment and Plan Assessment: Impression 1. Acute kidney injury from prerenal from combination off blood pressure medications and Naprosyn she was on. Improved creatinine is down from 2.15 on admission to 1.36 this morning. 2. Chronic kidney disease possibly, the most recent creatinine prior to this admission is 0.74 on 03/26/2015 20 half years ago. She has 3+ proteinuria on urinalysis on admission. This needs to be further quantified. Possible diabetic nephropathy. Ultrasound shows no hydronephrosis 3. Non-gap acidosis secondary to acute kidney injury. On bicarb improving 4. E. coli UTI improved on oral Levo floxacillin 5. Obesity 6. History of COPD and rheumatoid arthritis and seizures. 7. Blood pressure at target Recommendation 1. Discontinue IV fluids. 2. Watch creatinines. 3. Maintain bicarb. 4. Check orthostatic changes
[2017-12-23] MEDS: LORazepam 1 MG TAB PO SCH ×3 (09:32→21:39)
[2017-12-23] MEDS: ATORVASTATIN 40 MG TAB PO SCH (09:32)
[2017-12-23] MEDS: HYDROcodone/APAP 5-325MG 1 EACH TAB PO PRN (09:32)
[2017-12-23] MEDS: ASPIRIN 81 MG PO SCH (09:32)
[2017-12-23] MEDS: LEVOFLOXACIN 250 MG TAB PO SCH (09:32)
[2017-12-23] MEDS: ANASTROZOLE 1 MG TAB PO SCH (09:32)
[2017-12-23] MEDS: SODIUM CHLORIDE 0.9% 1,000 ML IV SCH ×2 (09:33→12:23)
[2017-12-23] MEDS: SODIUM BICARBONATE TAB 650 MG TAB PO SCH ×2 (09:33→21:39)
[2017-12-23] MEDS: HEPARIN SODIUM,PORCINE 5,000 UNIT/ML 1 ML VIAL SQ SCH ×2 (09:34→16:19)
[2017-12-23] MEDS: PANTOPRAZOLE 40 MG/10 ML VIAL IV SCH (09:34)
[2017-12-23 12:04] LABS: Glucose,Whole Blood 91 mg/dL (75-99)
[2017-12-23 16:39] LABS: Glucose,Whole Blood 93 mg/dL (75-99)
[2017-12-23] MEDS ORDERED: SENNOSIDES 8.6 MG TAB PO PRN (17:27)
[2017-12-23 20:46] LABS: Glucose,Whole Blood 114 mg/dL (75-99)
[2017-12-23] MEDS: INSULIN DETEMIR 100 UNIT/ML 10 ML VIAL SQ SCH (21:40)
[2017-12-24] MEDS: HEPARIN SODIUM,PORCINE 5,000 UNIT/ML 1 ML VIAL SQ SCH ×4 (00:15→23:08)
[2017-12-24 02:04] LABS: Appearance,Urine Cloudy (Clear); Bilirubin,Urine Negative (Negative); Blood,Urine Small (Negative); Color,Urine Yellow; Glucose,Urine (UA) Negative (Negative); Ketones,Urine Negative (Negative); Leukocyte Esterase,Urine Small (Negative); Mucus,Urine Rare /hpf; Nitrite,Urine Negative (Negative); Protein,Urine 1+ (Negative); RBC,Urine 2 /hpf (0-5); Specific Gravity,Urine 1.009 (1.001-1.035); Squamous Epithelial Cell,Urine 1 /hpf (0-4); Urobilinogen,Urine <2.0 mg/dL (<2.0); WBC,Urine 11 /hpf (0-5)
[2017-12-24 06:22] LABS: Glucose,Whole Blood 83 mg/dL (75-99)
[2017-12-24 06:23] LABS: Basophils % (A) 1 %; Eosinophils # (A) 0.1 k/uL (0-0.7); Eosinophils % (A) 3 %; HCT 25.2 % (34.0-46.0); HGB 8.3 gm/dL (11.4-16.0); Hypochromasia Moderate; Lymphocytes # (A) 0.9 k/uL (1.0-4.8); Lymphocytes % (A) 26 %; MCH 31.4 pg (25.0-35.0); MCHC 32.8 g/dL (31.0-37.0); MCV 95.5 fL (80.0-100.0); Mean Platelet Volume 7.5; Monocytes # (A) 0.3 k/uL (0-1.0); Monocytes % (A) 8 %; Neutrophils % (A) 59 %; Poikilocytosis Slight; RBC 2.63 m/uL (3.80-5.40); RDW 15.9 % (11.5-15.5); WBC 3.3 k/uL (3.8-10.6)
[2017-12-24 06:33] LABS: Calcium 9.2 mg/dL (8.4-10.2)
[2017-12-24 06:50] LABS: Platelet Count 92 k/uL (150-450)
[2017-12-24] MEDS: INSULIN ASPART 100 UNIT/ML 1 ML 10 ML VIAL SQ SCH ×8 (07:22→21:09)
[2017-12-24] MEDS: SYMBICORT 80-4.5 MCG INHALER INHALATION SCH ×2 (08:36→21:01)
[2017-12-24] MEDS: ANASTROZOLE 1 MG TAB PO SCH (08:48)
[2017-12-24] MEDS: HYDROcodone/APAP 5-325MG 1 EACH TAB PO PRN (08:48)
[2017-12-24] MEDS: SODIUM BICARBONATE TAB 650 MG TAB PO SCH ×2 (08:48→21:10)
[2017-12-24] MEDS: ATORVASTATIN 40 MG TAB PO SCH (08:48)
[2017-12-24] MEDS: LEVOFLOXACIN 250 MG TAB PO SCH (08:48)
[2017-12-24] MEDS: diphenhydrAMINE 25 MG CAP PO SCH (08:49)
[2017-12-24] MEDS: DOCUSATE 100 MG CAP PO SCH ×2 (08:49→21:09)
[2017-12-24] MEDS: ASPIRIN 81 MG PO SCH (08:49)
[2017-12-24] MEDS: LORazepam 1 MG TAB PO SCH ×3 (08:49→21:09)
[2017-12-24] MEDS: PANTOPRAZOLE 40 MG/10 ML VIAL IV SCH (08:49)
--- NOTE | 2017-12-24 10:27 | P.PN ---
Subjective Progress Note Date: 12/24/17 Principal diagnosis: This 67-year-old female seen in consultation because of acute kidney injury, creatinine is getting better with hydration. She had E. coli UTI but no bacteremia. Creatinine down to 1.18 this morning Patient continues to have generalized weakness. She suffers from diabetes as well as rheumatoid arthritis and is only on nonsteroidals. She has diabetic neuropathy and had a episode of V. tach lasting few seconds with some syncopal symptoms. She was on levo fed that has been discontinued. Denies any nausea vomiting appetite is fair no diarrhea. The dysuria frequency all resolved. She had significant constipation yesterday. He now and she is happy about it. She is able to stand up without any dizziness but has generalized weakness. Her hemoglobin is down to 8.3 Objective - Vital Signs Vital signs: Vital Signs Temp 98.2 F 12/24/17 08:20 Pulse 94 12/24/17 08:20 Resp 16 12/24/17 08:20 BP 117/61 12/24/17 08:20 Pulse Ox 96 12/24/17 08:20 Intake & Output 12/23/17 12/24/17 12/24/17 18:59 06:59 18:59 Intake Total 420 240 Output Total 500 Balance 420 -500 240 Weight 139.2 kg Intake: Oral 420 240 Output: Urine 500 Other: Voiding Method Toilet Toilet # Voids 2 1 # Bowel Movements 0 On exam she is awake alert oriented She is obese, looks somewhat tired. HEENT exam no JVP neck is supple no facial asymmetry Lungs clear to auscultation good air entry bilaterally Heart sounds unremarkable for any murmur rub gallop Abdomen soft nontender, no ascites, somewhat protuberant No masses felt. Extremity exam reveals minimal edema Neurologically awake alert oriented - Labs CBC & Chem 7: 12/24/17 05:59 12/24/17 05:59 Labs: Abnormal Lab Results - Last 24 Hours (Table) 12/23/17 12/23/17 12/24/17 Range/Units 20:25 20:43 05:59 WBC 3.3 L (3.8-10.6) k/uL RBC 2.63 L (3.80-5.40) m/uL Hgb 8.3 L (11.4-16.0) gm/dL Hct 25.2 L (34.0-46.0) % RDW 15.9 H (11.5-15.5) % Plt Count 92 L (150-450) k/uL Lymphocytes # 0.9 L (1.0-4.8) k/uL Chloride (98-107) mmol/L Carbon Dioxide (22-30) mmol/L BUN (7-17) mg/dL Creatinine (0.52-1.04) mg/dL POC Glucose (mg/dL) 114 H (75-99) mg/dL Urine Appearance Cloudy H (Clear) Urine Protein 1+ H (Negative) Urine Blood Small H (Negative) Ur Leukocyte Esterase Small H (Negative) Urine WBC 11 H (0-5) /hpf Urine Mucus Rare H (None) /hpf 12/24/17 Range/Units 05:59 WBC (3.8-10.6) k/uL RBC (3.80-5.40) m/uL Hgb (11.4-16.0) gm/dL Hct (34.0-46.0) % RDW (11.5-15.5) % Plt Count (150-450) k/uL Lymphocytes # (1.0-4.8) k/uL Chloride 112 H (98-107) mmol/L Carbon Dioxide 20 L (22-30) mmol/L BUN 21 H (7-17) mg/dL Creatinine 1.18 H (0.52-1.04) mg/dL POC Glucose (mg/dL) (75-99) mg/dL Urine Appearance (Clear) Urine Protein (Negative) Urine Blood (Negative) Ur Leukocyte Esterase (Negative) Urine WBC (0-5) /hpf Urine Mucus (None) /hpf Assessment and Plan Assessment: Impression 1. Acute kidney injury from prerenal from combination off blood pressure medications and Naprosyn she was on. Improved creatinine is down from 2.15 on admission to 1.36, and further to 1.18, bicarb is 20 this morning. 2. Chronic kidney disease possibly, the most recent creatinine prior to this admission is 0.74 on 03/26/2015 20 half years ago. She has 3+ proteinuria on urinalysis on admission. This needs to be further quantified. Possible diabetic nephropathy. Ultrasound shows no hydronephrosis 3. Non-gap acidosis secondary to acute kidney injury. On bicarb improving 4. E. coli UTI improved on oral Levo floxacillin 5. Obesity 6. History of COPD and rheumatoid arthritis and seizures. 7. Blood pressure at target 8. Anemia hemoglobin is down to 8.3. Recommendation 1. Watch creatinines. 2. Maintain bicarb. 3. Check iron saturation and replace if necessary.
[2017-12-24 11:41] LABS: Glucose,Whole Blood 92 mg/dL (75-99)
[2017-12-24 16:36] LABS: Glucose,Whole Blood 97 mg/dL (75-99)
[2017-12-24] MEDS: ACETAMINOPHEN TAB 325 MG TAB PO PRN (17:49)
[2017-12-24 20:37] LABS: Glucose,Whole Blood 150 mg/dL (75-99)
[2017-12-24] MEDS: INSULIN DETEMIR 100 UNIT/ML 10 ML VIAL SQ SCH (21:10)
--- NOTE | 2017-12-24 22:47 | PN ---
PROGRESS NOTE DATE OF SERVICE: 12/23/2017. HISTORY: This 67-year-old woman with a past medical history of multiple medical problems, admitted with UTI and sepsis. The patient also had sepsis and hypotension, and multiple other medical problems. Patient on broad spectrum IV antibiotics. Patient is feeling much stronger at this time. The patient also had abnormal creatinine on admission, noted at , indicating acute next which could be multifactorial. PAST MEDICAL HISTORY: Reviewed. REVIEW OF SYSTEMS: CARDIOVASCULAR: No angina. RESPIRATORY: As mentioned. GI: As mentioned. : As mentioned earlier. CURRENT MEDICATIONS: Reviewed, include: 1. Levemir 7 units subcu at bedtime. 2. Levaquin. 3. Narcan. 4. Zofran. 5. Protonix. 6. Senokot. 7. Colace. 8. Heparin. 9. NovoLog. PHYSICAL EXAM: Patient is alert, oriented x3. Pulse 94, blood pressure 136/80, respirations 18 , temperature is 98.4, pulse ox 94% on room air. HEENT: Oral mucosa moist. NECK: No jugular venous distention. No lymph node enlargement. CARDIOVASCULAR: S1 and S2 muffled. LUNGS: Breath sounds diminished at the bases. Few scattered rhonchi and crackles. ABDOMEN: Soft, obese, nontender. LEGS: No no edema, no cyanosis. NERVOUS SYSTEM: Diffusely weak. LABS: Labs are WBC 3.2, hemoglobin is 8.3, and platelets 92,000, creatinine is 1.18. ASSESSMENT: 1. Urinary tract infection with sepsis with E coli and severe sepsis with hypotension. 2. Transient ischemic attack. 3. Supraventricular tachycardia. 4. Acute kidney injury with acute renal failure. 5. Chronic obstructive pulmonary disease. 6. Diabetes mellitus type 2. 7. Hypertension. 8. Hyperlipidemia. 9. Morbid obesity. 10.History of breast cancer status post mastectomy and chemotherapy. 11.History of nicotine dependence. 12.Seizure disorder. 13.Moderate protein calorie malnutrition. RECOMMENDATIONS: Recommend to continue current management and continue symptomatic treatment. Continue the OT evaluation. Continue with broad-spectrum IV antibiotics. Continue the rest of medications. Monitor creatinine closely. Guarded prognosis because of multiple complex medical issues. Further recommendations to follow. MMODL / IJN: [id number] / MTDD
--- NOTE | 2017-12-24 22:52 | PN ---
PROGRESS NOTE DATE OF SERVICE: 12/24/2017 This 67-year-old woman is admitted with sepsis and UTI had E coli grown from the culture. The patient's creatinine is still elevated 1.8. Hemoglobin is 8.3. Cultures as mentioned showing E coli. Patient closely monitored. Patient on broad-spectrum IV antibiotics. PAST MEDICAL HISTORY: Reviewed. REVIEW OF SYSTEMS: Cardiovascular system: No angina. No palpitations. RESPIRATORY: As mentioned. GI no nausea or vomiting. : No dysuria. Nervous system: No numbness or weakness. CURRENT MEDICATIONS ARE: Reviewed and include: 1. Tylenol 650 q.4h p.r.n. 2. [place] 5 mg q.6h p.r.n. 3. Arimidex 1 mg daily. 4. Aspirin 81 mg daily. 5. Lipitor 40 mg daily. 6. Symbicort 1 puff b.i.d. 7. Benadryl. 8. Colace. 9. Heparin 5000 subcu q.8h. 10.NovoLog 20 mg a.c. t.i.d. 11.Levemir 7 units subcu q.h.s. 12.Levaquin 250 mg p.o. daily. 13.Ativan 1 mg p.o. t.i.d. 14.Narcan 0.2 q.2h p.r.n. 15.Zofran. 16.Protonix 40 mg IV. 17.Senokot 8.6 daily. 18.Sodium bicarb. PHYSICAL EXAMINATION: The patient is alert, oriented x3. Pulse is 92, blood pressure 130/80, respiration 16, temperature is normal. Pulse ox 97% on room air. HEENT: Oral mucosa moist. Neck is no jugular venous distention. No carotid bruit. No lymph node enlargement. Cardiovascular systems: S1, S2 muffled. Respirations: Breath sounds diminished in the bases. Scattered rhonchi and crackles. Abdomen is soft, obese, nontender. Legs no edema. No swelling. Central nervous system: No focal deficits. LABS: WBC 3.2, hemoglobin is 8.3. Creatinine is 1.18. ASSESSMENT: 1. Acute urinary tract infection with sepsis with hypotension, present on admission. 2. Possible transient ischemic attack. 3. History of supraventricular tachycardia. 4. Hypovolemic hyponatremia. 5. Acute kidney injury. 6. Chronic obstructive pulmonary disease. 7. Diabetes mellitus type 2 with diabetic neuropathy. 8. Hypertension. 9. Hyperlipidemia. 10.Morbid obesity. 11.History of breast cancer status post left mastectomy and chemotherapy. 12.History of nicotine dependence. 13.History of seizure disorder. 14.Moderate protein calorie malnutrition. RECOMMENDATIONS AND DISCUSSION: Recommend to continue current medications, continue to monitor. Symptomatic treatment. Otherwise, at this time, I recommend continue with antibiotics and follow the cultures. Closely follow with multiple consultants. Prognosis extremely guarded because of multiple complex medical issues. Further recommendations to follow. Dr. Delcid will follow. Continue with PT, OT evaluation. MMODL / IJN: [id number] /
[2017-12-24 23:45] LABS: Appearance,Urine Cloudy (Clear); Bacteria,Urine Rare /hpf; Bilirubin,Urine Negative (Negative); Blood,Urine Moderate (Negative); Color,Urine Yellow; Glucose,Urine (UA) Trace (Negative); Ketones,Urine Negative (Negative); Leukocyte Esterase,Urine Moderate (Negative); Mucus,Urine Rare /hpf; Nitrite,Urine Negative (Negative); PH, Urine 5.5 (5.0-8.0); Protein,Urine 1+ (Negative); RBC,Urine 9 /hpf (0-5); Specific Gravity,Urine 1.011 (1.001-1.035); Squamous Epithelial Cell,Urine 3 /hpf (0-4); Urobilinogen,Urine <2.0 mg/dL (<2.0); WBC,Urine 19 /hpf (0-5)
[2017-12-25] MEDS: ACETAMINOPHEN TAB 325 MG TAB PO PRN (01:07)
[2017-12-25 04:18] VITALS: RESP 18
[2017-12-25 06:36] LABS: Glucose,Whole Blood 66 mg/dL (75-99)
[2017-12-25 06:43] LABS: Glucose,Whole Blood 71 mg/dL (75-99)
[2017-12-25] MEDS: INSULIN ASPART 100 UNIT/ML 1 ML 10 ML VIAL SQ SCH ×5 (06:55→12:31)
[2017-12-25] MEDS: ANASTROZOLE 1 MG TAB PO SCH (08:32)
[2017-12-25] MEDS: HEPARIN SODIUM,PORCINE 5,000 UNIT/ML 1 ML VIAL SQ SCH (08:32)
[2017-12-25] MEDS: ATORVASTATIN 40 MG TAB PO SCH (08:32)
[2017-12-25] MEDS: LEVOFLOXACIN 250 MG TAB PO SCH (08:32)
[2017-12-25] MEDS: ASPIRIN 81 MG PO SCH (08:34)
[2017-12-25] MEDS: DOCUSATE 100 MG CAP PO SCH (08:34)
[2017-12-25] MEDS: SODIUM BICARBONATE TAB 650 MG TAB PO SCH (08:34)
[2017-12-25] MEDS: diphenhydrAMINE 25 MG CAP PO SCH (08:34)
[2017-12-25] MEDS: LORazepam 1 MG TAB PO SCH (08:34)
[2017-12-25] MEDS: PANTOPRAZOLE 40 MG/10 ML VIAL IV SCH ×2 (08:34→08:42)
[2017-12-25] MEDS: SYMBICORT 80-4.5 MCG INHALER INHALATION SCH (08:52)
[2017-12-25 09:14] VITALS: TEMP 97.9
[2017-12-25 09:50] LABS: Iron Saturation 19.08 (12.00-45.00)
[2017-12-25 11:41] LABS: Glucose,Whole Blood 134 mg/dL (75-99)
[2017-12-25 12:04] VITALS: BP 165/77; PULSE 91
--- NOTE | 2017-12-25 12:28 | P.DS ---
Providers Date of admission: 12/16/17 19:31 Expected date of discharge: 12/25/17 Attending physician: Handy Delcid Consults: 12/16/17 21:15 Consult Physician Routine Consulting Provider: Shaun Rios Consult Reason/Comments: icu patient Do you want consulting provider notified?: Already Contacted 12/17/17 06:45 Consult Physician Stat Consulting Provider: Adelita Chappell Consult Reason/Comments: Urosepsis with elevated BUN/Creat Do you want consulting provider notified?: Yes 12/17/17 09:04 Consult Physician Routine Consulting Provider: Jeanine Woody Consult Reason/Comments: elevated troponin Do you want consulting provider notified?: Already Contacted Primary care physician: Handy Delcid Hospital Course: 67-year-old female with a multiple medical problems was admitted for UTI sepsis. Patient developed hypertension was admitted to the intensive care unit. Patient was on broad-spectrum antibiotics. Patient is noted to be much stronger at this point and wishing to be discharged home. Patient was stabilized by nephrology pulmonology and cardiology Assessment Urinary tract infection with sepsis with hypotension History of TIA Acute kidney injury with acute renal failure COPD Pulmonary hypertension ejection fraction 45-50% Diabetes type 2 Hypertension Hyperlipidemia Morbid obesity BMI 50.8 History of breast cancer post mastectomy and chemotherapy Nicotine dependence seizure disorder Moderate protein calorie malnutrition Plan Continue Levaquin follow-up with family physician Dr. Handy Delcid Home care nursing Patient Condition at Discharge: Fair Plan - Discharge Summary Discharge Rx Participant: No New Discharge Prescriptions: New diphenhydrAMINE [Benadryl] 25 mg PO DAILY PRN cap PRN Reason: Itching Aspirin 81 mg PO DAILY chew Atorvastatin [Lipitor] 40 mg PO DAILY 30 Days #30 tab Levofloxacin [Levaquin] 250 mg PO DAILY 7 Days #7 tab Continue Lisinopril-Hctz 20-25 mg [Zestoretic 20-25] 1 each PO DAILY LORazepam [Ativan] 1 mg PO TID Hydrocodone/Acetaminophen [[place] 5-325] 1 each PO Q6HR PRN #20 tab PRN Reason: Pain Fluticasone/Salmeterol [Advair 100-50 Diskus] 1 inhalation PO RT-DAILY Anastrozole [Arimidex] 1 mg PO DAILY diphenhydrAMINE HCL [Benadryl] 50 mg PO DAILY Insulin Aspart [NovoLOG] 30 units SQ AC-TID Insulin Detemir [Levemir Flextouch] 70 units SQ HS Discontinued Cyclobenzaprine [Flexeril] 10 mg PO HS PRN PRN Reason: muscle cramp Naproxen Sodium [Aleve] 440 mg PO Q6HR Discharge Medication List LORazepam [Ativan] 1 mg PO TID 11/29/13 [History] Lisinopril-Hctz 20-25 mg [Zestoretic 20-25] 1 each PO DAILY 11/29/13 [History] Hydrocodone/Acetaminophen [[place] 5-325] 1 each PO Q6HR PRN #20 tab 05/15/14 [Rx] Fluticasone/Salmeterol [Advair 100-50 Diskus] 1 inhalation PO RT-DAILY 06/24/14 [History] Anastrozole [Arimidex] 1 mg PO DAILY 09/30/14 [History] Insulin Aspart [NovoLOG] 30 units SQ AC-TID 12/16/17 [History] Insulin Detemir [Levemir Flextouch] 70 units SQ HS 12/16/17 [History] diphenhydrAMINE HCL [Benadryl] 50 mg PO DAILY 12/16/17 [History] diphenhydrAMINE [Benadryl] 25 mg PO DAILY PRN cap 12/22/17 [Rx] Aspirin 81 mg PO DAILY chew 12/25/17 [Rx] Atorvastatin [Lipitor] 40 mg PO DAILY 30 Days #30 tab 12/25/17 [Rx] Levofloxacin [Levaquin] 250 mg PO DAILY 7 Days #7 tab 12/25/17 [Rx] Follow up Appointment(s)/Referral(s): Handy Delcid MD [Primary Care Provider] - 12/27/17 2:10 pm (Monday) Shaun Rios MD [STAFF PHYSICIAN] - 1 Week Adelita Chappell MD [STAFF PHYSICIAN] - 1 Week Jeanine Woody MD [STAFF PHYSICIAN] - 1 Week [facility], [NON-STAFF] -
--- NOTE | 2017-12-25 14:30 | P.PN ---
Subjective Progress Note Date: 12/25/17 This is a pleasant 67-year-old female who presented with urinary tract infection and urosepsis. She had artifact in the emergency department that was reported as SVT or ventricular tachycardia, but was clearly artifact. Overall the patient is feeling better, blood pressure 160/70 with a heart rate in the 90s. Objective - Vital Signs Vital signs: Vital Signs Temp 97.9 F 12/25/17 08:32 Pulse 91 12/25/17 12:03 Resp 18 12/25/17 12:03 BP 165/77 12/25/17 12:03 Pulse Ox 97 12/25/17 12:03 Intake & Output 12/24/17 12/25/17 12/25/17 18:59 06:59 18:59 Intake Total 340 250 480 Output Total 100 Balance 340 150 480 Weight 138.6 kg Intake: Oral 340 250 480 Output: Urine 100 Other: Voiding Method Toilet Toilet Toilet # Voids 1 # Bowel Movements 0 - Exam PHYSICAL EXAMINATION: HEENT: Head is atraumatic, normocephalic. Pupils equal, round. Neck is supple. There is no elevated jugular venous pressure. HEART EXAMINATION: Heart sounds regular, S1 and S2 normal. No murmur or gallop heard. CHEST EXAMINATION: Lungs reveal few bibasilar crackles. No chest wall tenderness is noted on palpation or with deep breathing. ABDOMEN: Soft, obese, nontender. Bowel sounds are heard. No organomegaly noted. EXTREMITIES: 2+ peripheral pulses with evidence of trace peripheral edema and no calf tenderness noted. NEUROLOGIC patient is awake, alert and oriented x3. . - Labs CBC & Chem 7: 12/24/17 05:59 12/24/17 05:59 Labs: Abnormal Lab Results - Last 24 Hours (Table) 12/24/17 12/24/17 12/25/17 Range/Units 20:29 23:30 06:22 POC Glucose (mg/dL) 150 H 66 L (75-99) mg/dL Urine Appearance Cloudy H (Clear) Urine Protein 1+ H (Negative) Urine Glucose (UA) Trace H (Negative) Urine Blood Moderate H (Negative) Ur Leukocyte Esterase Moderate H (Negative) Urine RBC 9 H (0-5) /hpf Urine WBC 19 H (0-5) /hpf Urine Bacteria Rare H (None) /hpf Urine Mucus Rare H (None) /hpf 12/25/17 12/25/17 Range/Units 06:41 11:35 POC Glucose (mg/dL) 71 L 134 H (75-99) mg/dL Urine Appearance (Clear) Urine Protein (Negative) Urine Glucose (UA) (Negative) Urine Blood (Negative) Ur Leukocyte Esterase (Negative) Urine RBC (0-5) /hpf Urine WBC (0-5) /hpf Urine Bacteria (None) /hpf Urine Mucus (None) /hpf Microbiology - Last 24 Hours (Table) 12/24/17 23:30 Urine Culture - Preliminary Urine,Voided Assessment and Plan Plan: Assessment: #1 urosepsis with hypotension and septic shock, improved #2 acute renal injury, improved #3 prior history of hypertension #4 pulmonary hypertension and tricuspid regurgitation of unclear etiology #5 diabetes mellitus #6 obesity Plan From cardiology's perspective, we'll continue current medications. We will follow along with you now on an as-needed basis only, please don't hesitate to call with any questions. DNP note has been reviewed, I agree with a documented findings and plan of care. Patient was seen and examined.
[2017-12-25 15:01] VITALS: BMI 50.8
--- NOTE | 2017-12-25 18:33 | PN ---
PROGRESS NOTE Patient is seen for followup for acute kidney injury. Her renal function has improved significantly since admission with creatinine down to 1.1 as of yesterday from a peak of 2.47. The patient states she feels well. She will likely be discharged today. EXAMINATION: This morning, blood pressure was 165/77, heart rate of 91 per minute. She is afebrile. Examination of the heart S1, S2. Examination of the lungs bilateral breath sounds are heard. Abdomen is soft, nontender. Examination lower extremities shows no significant edema. [employer] exam is grossly intact. LABS SHOW: As of yesterday, serum creatinine 1.12. No labs from today. ASSESSMENT: 1. Acute kidney injury associated with sepsis, hypotension, currently improved. 2. Chronic kidney disease, most likely secondary to nephrosclerosis and diabetic nephropathy with fairly well preserved GFR NKF stage III. Creatinine at 1.1 yesterday. 3. Urinary tract infection with urine culture growing E coli, status post antibiotics. 4. Generalized debility. 5. Hypertension, controlled. PLAN: Patient is stable for discharge from Nephrology standpoint. MMODL / IJN: [id number] /
[2017-12-26] MEDS ORDERED: PANTOPRAZOLE 40 MG TABLET PO SCH (07:30)
== END 2017-12-25 15:55 | disposition home health service (06) | DRG 871 ==
LOC: EC 16:19 → 3SCARD 19:31 → 2SICU 21:37 → 3SCARD 12-21 06:10
PROVIDERS: ADMIT Family Medicine; ATTEND Family Medicine
DX: A41.51 Sepsis due to Escherichia coli [E. coli] (principal); R65.21 Severe sepsis with septic shock; N17.0 Acute kidney failure with tubular necrosis; E87.2 Acidosis; N39.0 Urinary tract infection, site not specified; E87.1 Hypo-osmolality and hyponatremia; Z68.43 Body mass index [BMI] 50.0-59.9, adult; E44.0 Moderate protein-calorie malnutrition; I47.1 Supraventricular tachycardia; E87.5 Hyperkalemia; E11.40 Type 2 diabetes mellitus with diabetic neuropathy, unspecified; G40.909 Epilepsy, unspecified, not intractable, without status epilepticus; M06.9 Rheumatoid arthritis, unspecified; J44.9 Chronic obstructive pulmonary disease, unspecified; E86.1 Hypovolemia; E78.5 Hyperlipidemia, unspecified; E66.01 Morbid (severe) obesity due to excess calories; M79.7 Fibromyalgia; E11.22 Type 2 diabetes mellitus with diabetic chronic kidney disease; I12.9 Hypertensive chronic kidney disease with stage 1 through stage 4 chronic kidney disease, or unspecified chronic kidney disease; F32.9 Major depressive disorder, single episode, unspecified; F41.9 Anxiety disorder, unspecified; N18.3 Chronic kidney disease, stage 3 (moderate); D64.9 Anemia, unspecified; R53.81 Other malaise; F17.210 Nicotine dependence, cigarettes, uncomplicated; E11.65 Type 2 diabetes mellitus with hyperglycemia; I07.1 Rheumatic tricuspid insufficiency; I27.20 Pulmonary hypertension, unspecified; I45.10 Unspecified right bundle-branch block; K59.00 Constipation, unspecified; Z88.8 Allergy status to other drugs, medicaments and biological substances; Z79.1 Long term (current) use of non-steroidal anti-inflammatories (NSAID); Z79.4 Long term (current) use of insulin; Z79.51 Long term (current) use of inhaled steroids; Z79.899 Other long term (current) drug therapy; Z88.5 Allergy status to narcotic agent; Z88.0 Allergy status to penicillin; Z90.12 Acquired absence of left breast and nipple; Z90.49 Acquired absence of other specified parts of digestive tract; Z98.51 Tubal ligation status; Z81.8 Family history of other mental and behavioral disorders; Z85.3 Personal history of malignant neoplasm of breast; Z92.21 Personal history of antineoplastic chemotherapy; Z79.811 Long term (current) use of aromatase inhibitors; Z80.1 Family history of malignant neoplasm of trachea, bronchus and lung; Z80.3 Family history of malignant neoplasm of breast; Z82.5 Family history of asthma and other chronic lower respiratory diseases; Z83.3 Family history of diabetes mellitus; Z86.73 Personal history of transient ischemic attack (TIA), and cerebral infarction without residual deficits; Z90.710 Acquired absence of both cervix and uterus
CPT/HCPCS: 36415; 36556; 51702; 71045; 71046; 76770; 80048; 80053; 80202; 81001; 82550; 83036; 83540; 83550; 83605; 83735; 84100; 84484; 85025; 87040; 87077; 87086; 87186; 93005; 93306; 94640; 96361; 96365; 96367; 96375; 99285

== ENCOUNTER 2018-01-08 17:00 | Inpatient (IN) | payer MEDICARE ==
[2018-01-08] MEDS ORDERED: MORPHINE SULFATE 4 MG/ML SYRINGE IVP STA (19:14)
[2018-01-08] MEDS ORDERED: ONDANSETRON 4 MG/2 ML VIAL IVP STA (19:14)
--- NOTE | 2018-01-08 19:19 | ED ---
General Adult HPI <Estuardo Monsalve - Last Filed: 01/08/18 22:57> - General Source: EMS Mode of arrival: EMS Limitations: no limitations <Gail Reeder - Last Filed: 01/09/18 05:08> - General Chief complaint: Extremity Injury, Lower Stated complaint: Sob/swollen leg Time Seen by Provider: 01/08/18 18:49 - History of Present Illness Initial comments: 67-year-old female patient presents to the emergency department today with chief complaint of left leg pain and swelling. Patient states that she does have chronic pain to the left leg however the last 2 days the pain has been significantly worse. States that she is unable to bear weight on it. States that it does seem to be more swollen than usual. There is some reddish discoloration to the keane and over the dorsum of the foot. They state the patient was leaving the house to go to a doctor's appointment this afternoon, however she was unable to get into the vehicle due to leg weakness and nearly fell. Once patient got back into the house she was short of breath however she did a struggle to get inside. She denies any chest pain, dizziness, or weakness. Patient states she has been chilled but has had no fevers. Denies any abdominal pain, nausea, vomiting, constipation, or diarrhea. Patient and caregiver are reporting dark urine. Patient was discharged from this hospital one week ago for sepsis and kidney failure. She denies use of anticoagulant or antiplatelet medication. Patient denies any recent rash, numbness, tingling, dysuria, urinary urgency, urinary frequency, headache, visual changes, or any other complaints. (Gail Reeder) - Related Data Home Medications Medication Instructions Recorded Confirmed LORazepam [Ativan] 1 mg PO TID 11/29/13 01/08/18 Lisinopril-Hctz 20-25 mg 1 each PO DAILY 11/29/13 01/08/18 [Zestoretic 20-25] Fluticasone/Salmeterol [Advair 1 inhalation PO RT-DAILY 06/24/14 01/08/18 100-50 Diskus] Anastrozole [Arimidex] 1 mg PO DAILY 09/30/14 01/08/18 Insulin Aspart [NovoLOG] 30 units SQ AC-TID 12/16/17 01/08/18 Insulin Detemir [Levemir Flextouch] 70 units SQ HS 12/16/17 01/08/18 diphenhydrAMINE HCL [Benadryl] 50 mg PO DAILY 12/16/17 01/08/18 Cyclobenzaprine [Flexeril] 10 mg PO TID 01/08/18 01/08/18 HYDROcodone/APAP 7.5-325MG [[place] 1 tab PO TID 01/08/18 01/08/18 7.5-325] Previous Rx's Medication Instructions Recorded diphenhydrAMINE [Benadryl] 25 mg PO DAILY PRN cap 12/22/17 Aspirin 81 mg PO DAILY chew 12/25/17 Atorvastatin [Lipitor] 40 mg PO DAILY 30 Days #30 tab 12/25/17 Allergies Allergy/AdvReac Type Severity Reaction Status Date / Time codeine Allergy Nausea & Verified 01/08/18 20:26 Vomiting Penicillins Allergy Rash/Hives Verified 01/08/18 20:26 phenobarbital AdvReac Unknown Verified 01/08/18 20:26 phenytoin sodium AdvReac Unknown Verified 01/08/18 20:26 [From Dilantin] phenytoin sodium extended AdvReac Unknown Verified 01/08/18 20:26 [From Dilantin] primidone [From Mysoline] AdvReac Unknown Verified 01/08/18 20:26 Review of Systems ROS Other: All systems not noted in ROS Statement are negative. <Estuardo Monsalve - Last Filed: 01/08/18 22:57> ROS Other: All systems not noted in ROS Statement are negative. <Gail Reeder - Last Filed: 01/09/18 05:08> ROS Statement: Those systems with pertinent positive or pertinent negative responses have been documented in the HPI. Past Medical History Past Medical History: Cancer, COPD, Diabetes Mellitus, Fibromyalgia, Hyperlipidemia, Hypertension, Rheumatoid Arthritis (RA), Seizure Disorder, Supraventricular Tachycardia (SVT) Additional Past Medical History / Comment(s): (R) Breast cancer with masectomy in 2012. DM Type II. Recent dental extraction (all teeth from lower jaw 2017) History of Any Multi-Drug Resistant Organisms: None Reported Past Surgical History: Adenoidectomy, Appendectomy, Breast Surgery, Cholecystectomy, Hysterectomy, Tonsillectomy, Tubal Ligation Additional Past Surgical History / Comment(s): masectomy right, ganglion cyst right hand, Had 5 "tubal pregnancies" Past Anesthesia/Blood Transfusion Reactions: No Reported Reaction Past Psychological History: Anxiety, Depression Smoking Status: Current every day smoker Past Alcohol Use History: None Reported Past Drug Use History: None Reported - Past Family History Father Family Medical History: Cancer, CVA/TIA Additional Family Medical History / Comment(s): 2000 from lung cancer Mother Family Medical History: Cancer, Dementia Additional Family Medical History / Comment(s): 2014 at age 86. Oral & Breast cancer Brother(s) Family Medical History: Asthma, Diabetes Mellitus, Fibromyalgia, Osteoarthritis (OA) Additional Family Medical History / Comment(s): Obesity. Joint replacements <Gail Reeder M - Last Filed: 01/09/18 05:08> General Exam Limitations: no limitations General appearance: alert, in no apparent distress, other (This is a well- developed, obese adult female patient in no acute distress. Vital signs upon presentation are temperature 97.8F, pulse 105, respirations 20, blood pressure 135/72, pulse ox 96% on room air.) Eye exam: Present: normal appearance, PERRL, EOMI. Absent: scleral icterus, conjunctival injection, periorbital swelling ENT exam: Present: normal exam, normal oropharynx, mucous membranes moist Respiratory exam: Present: normal lung sounds bilaterally. Absent: respiratory distress, wheezes, rales, rhonchi, stridor Cardiovascular Exam: Present: regular rate, normal rhythm, normal heart sounds. Absent: systolic murmur, diastolic murmur, rubs, gallop, clicks GI/Abdominal exam: Present: soft, normal bowel sounds. Absent: distended, tenderness, guarding, rebound, rigid Extremities exam: Present: full ROM, tenderness (Tenderness over the left ankle , left keane.), normal capillary refill, other (Patient has erythema noted over the keane and dorsum of the foot, this is circumferential to the lower half of the left lower leg, non-blanchable. Pedal pulses 2+ and equal bilaterally. Patient has 2+ pitting edema to the left dorsalis pedis region.). Absent: normal inspection, pedal edema, joint swelling, calf tenderness Neurological exam: Present: alert, oriented X3, CN II-XII intact Psychiatric exam: Present: normal affect, normal mood Skin exam: Present: warm, dry, intact, normal color. Absent: rash <Gail Reeder - Last Filed: 01/09/18 05:08> Course <Estuardo Monsalve - Last Filed: 01/08/18 22:57> <Gail Reeder - Last Filed: 01/09/18 05:08> Vital Signs 01/08/18 01/08/18 01/08/18 17:02 21:57 23:40 Temperature 97.8 F 97.8 F Pulse Rate 105 H 97 98 Respiratory 20 18 18 Rate Blood Pressure 135/72 129/76 119/68 O2 Sat by Pulse 96 97 95 Oximetry - Reevaluation(s) Reevaluation #1: 01/08/18 22:57 And P supervision: I proceeded [id number] evaluation the patient and I did discuss the findings with her and her family members. Patient does have profound weakness and inability to lift her feet up which is been going on for some period of time. Chills have some erythema to the left lower extremity she' s had some fever associated with it. Patient is at risk for falls and self- harm. Additionally there is evidence of left lower extremity cellulitis. Patient will be admitted case is discussed with her doctor. (Estuardo Monsalve) EKG Findings - EKG Comments: EKG Findings:: EKG obtained at 1928 shows sinus tachycardia. Ventricular rate is 102, ventricular rate is 102, NV interval 194, QRS duration 98, QT 308, QTC 401. No evidence of ST elevation or depression. <Gail Reeder - Last Filed: 01/09/18 05:08> Medical Decision Making - Lab Data Result diagrams: 01/08/18 19:44 01/08/18 19:44 <Estuardo Monsalve - Last Filed: 01/08/18 22:57> - Lab Data Result diagrams: 01/08/18 19:44 01/08/18 19:44 - Radiology Data Radiology results: report reviewed, image reviewed <Gail Reeder - Last Filed: 01/09/18 05:08> - Medical Decision Making 67-year-old female patient presented to the emergency department today for evaluation of left leg pain and swelling. Physical examination did reveal generalized swelling over the entirety of the lower leg and foot. There is some circumferential erythema to the left lower leg and to the dorsum of the left foot. Labs reviewed and are relatively unremarkable. Patient is unable to ambulate due to significant pain. There is some concern for cellulitis of the left leg. We'll admit for IV antibiotics and further evaluation. (Gail Reeder) - Lab Data Lab Results 01/08/18 01/08/18 01/08/18 Range/Units 19:44 19:44 19:44 WBC 3.2 L (3.8-10.6) k/uL RBC 3.02 L (3.80-5.40) m/uL Hgb 9.2 L (11.4-16.0) gm/dL Hct 29.5 L (34.0-46.0) % MCV 97.7 (80.0-100.0) fL MCH 30.5 (25.0-35.0) pg MCHC 31.2 (31.0-37.0) g/dL RDW 16.2 H (11.5-15.5) % Plt Count 107 L (150-450) k/uL Neutrophils % 66 % Lymphocytes % 23 % Monocytes % 6 % Eosinophils % 2 % Basophils % 1 % Neutrophils # 2.1 (1.3-7.7) k/uL Lymphocytes # 0.7 L (1.0-4.8) k/uL Monocytes # 0.2 (0-1.0) k/uL Eosinophils # 0.1 (0-0.7) k/uL Basophils # 0.0 (0-0.2) k/uL Hypochromasia Moderate Anisocytosis Slight Macrocytosis Slight PT 10.9 (9.0-12.0) sec INR 1.1 (<1.2) APTT 22.9 (22.0-30.0) sec Sodium 139 (137-145) mmol/L Potassium 4.6 (3.5-5.1) mmol/L Chloride 108 H (98-107) mmol/L Carbon Dioxide 24 (22-30) mmol/L Anion Gap 7 mmol/L BUN 23 H (7-17) mg/dL Creatinine 1.21 H (0.52-1.04) mg/dL Est GFR (CKD-EPI)AfAm 55 (>60 ml/min/1.73 sqM) Est GFR (CKD-EPI)NonAf 47 (>60 ml/min/1.73 sqM) Glucose 90 (74-99) mg/dL Calcium 9.3 (8.4-10.2) mg/dL Total Bilirubin 0.9 (0.2-1.3) mg/dL AST 37 H (14-36) U/L ALT 26 (9-52) U/L Alkaline Phosphatase 119 (38-126) U/L Total Creatine Kinase (30-135) U/L CK-MB (CK-2) (0.0-2.4) ng/mL CK-MB (CK-2) Rel Index Troponin I (0.000-0.034) ng/mL Total Protein 6.9 (6.3-8.2) g/dL Albumin 3.3 L (3.5-5.0) g/dL Urine Color Urine Appearance (Clear) Urine pH (5.0-8.0) Ur Specific [place] (1.001-1.035) Urine Protein (Negative) Urine Glucose (UA) (Negative) Urine Ketones (Negative) Urine Blood (Negative) Urine Nitrite (Negative) Urine Bilirubin (Negative) Urine Urobilinogen (<2.0) mg/dL Ur Leukocyte Esterase (Negative) Urine RBC (0-5) /hpf Urine WBC (0-5) /hpf Granular Casts (0) /lpf Urine Mucus (None) /hpf Urine Yeast (Budding) (None) /hpf 01/08/18 01/08/18 Range/Units 19:44 21:55 WBC (3.8-10.6) k/uL RBC (3.80-5.40) m/uL Hgb (11.4-16.0) gm/dL Hct (34.0-46.0) % MCV (80.0-100.0) fL MCH (25.0-35.0) pg MCHC (31.0-37.0) g/dL RDW (11.5-15.5) % Plt Count (150-450) k/uL Neutrophils % % Lymphocytes % % Monocytes % % Eosinophils % % Basophils % % Neutrophils # (1.3-7.7) k/uL Lymphocytes # (1.0-4.8) k/uL Monocytes # (0-1.0) k/uL Eosinophils # (0-0.7) k/uL Basophils # (0-0.2) k/uL Hypochromasia Anisocytosis Macrocytosis PT (9.0-12.0) sec INR (<1.2) APTT (22.0-30.0) sec Sodium (137-145) mmol/L Potassium (3.5-5.1) mmol/L Chloride (98-107) mmol/L Carbon Dioxide (22-30) mmol/L Anion Gap mmol/L BUN (7-17) mg/dL Creatinine (0.52-1.04) mg/dL Est GFR (CKD-EPI)AfAm (>60 ml/min/1.73 sqM) Est GFR (CKD-EPI)NonAf (>60 ml/min/1.73 sqM) Glucose (74-99) mg/dL Calcium (8.4-10.2) mg/dL Total Bilirubin (0.2-1.3) mg/dL AST (14-36) U/L ALT (9-52) U/L Alkaline Phosphatase (38-126) U/L Total Creatine Kinase 59 (30-135) U/L CK-MB (CK-2) 0.9 (0.0-2.4) ng/mL CK-MB (CK-2) Rel Index 1.5 Troponin I 0.014 (0.000-0.034) ng/mL Total Protein (6.3-8.2) g/dL Albumin (3.5-5.0) g/dL Urine Color Yellow Urine Appearance Clear (Clear) Urine pH 6.0 (5.0-8.0) Ur Specific [place] 1.012 (1.001-1.035) Urine Protein 1+ H (Negative) Urine Glucose (UA) Negative (Negative) Urine Ketones Negative (Negative) Urine Blood Negative (Negative) Urine Nitrite Negative (Negative) Urine Bilirubin Negative (Negative) Urine Urobilinogen <2.0 (<2.0) mg/dL Ur Leukocyte Esterase Small H (Negative) Urine RBC 1 (0-5) /hpf Urine WBC 22 H (0-5) /hpf Granular Casts 3 (0) /lpf Urine Mucus Rare H (None) /hpf Urine Yeast (Budding) Few H (None) /hpf - Radiology Data Ultrasound venous Doppler duplex of the left lower extremity was obtained. Report was reviewed in its entirety. There is no evidence of DVT to the left leg. Two-view x-ray of the chest is obtained. Heart is enlarged. There is no heart failure. Costophrenic angles are clear. There are chest leads. Bony thorax is intact. There is spurring in the thoracic spine. Impression by Dr. Gonzalez shows mild cardiomegaly. No active cardiopulmonary disease. No change. (Gail Reeder) Disposition <Estuardo Mnosalve - Last Filed: 01/08/18 22:57> Decision to Admit Reason: Admit from EC Decision Date: 01/08/18 Decision Time: 23:04 <Gail Reeder - Last Filed: 01/09/18 05:08> Clinical Impression: Left leg cellulitis, Weakness Disposition: ADMITTED IP TO THIS [facility] Condition: Serious
[2018-01-08 20:08] LABS: Anisocytosis Slight; Basophils % (A) 1 %; Eosinophils # (A) 0.1 k/uL (0-0.7); Eosinophils % (A) 2 %; HCT 29.5 % (34.0-46.0); HGB 9.2 gm/dL (11.4-16.0); Hypochromasia Moderate; Lymphocytes # (A) 0.7 k/uL (1.0-4.8); Lymphocytes % (A) 23 %; MCH 30.5 pg (25.0-35.0); MCHC 31.2 g/dL (31.0-37.0); MCV 97.7 fL (80.0-100.0); Macrocytosis Slight; Mean Platelet Volume 8.2; Monocytes # (A) 0.2 k/uL (0-1.0); Monocytes % (A) 6 %; Neutrophils # (A) 2.1 k/uL (1.3-7.7); Neutrophils % (A) 66 %; Platelet Count 107 k/uL (150-450); RBC 3.02 m/uL (3.80-5.40); RDW 16.2 % (11.5-15.5); WBC 3.2 k/uL (3.8-10.6)
[2018-01-08 20:13] LABS: Albumin 3.3 g/dL (3.5-5.0); Calcium 9.3 mg/dL (8.4-10.2); Potassium 4.6 mmol/L (3.5-5.1); Total Bilirubin 0.9 mg/dL (0.2-1.3); Total Protein 6.9 g/dL (6.3-8.2)
[2018-01-08 20:25] LABS: INR 1.1 (<1.2); Partial Thromboplastin Time 22.9 sec (22.0-30.0); Prothrombin Time 10.9 sec (9.0-12.0)
--- NOTE | 2018-01-08 20:36 | XR ---
EXAMINATION TYPE: XR chest 2V DATE OF EXAM: 01/08/2018 COMPARISON: 12/19/2017 HISTORY: Leg pain TECHNIQUE: Frontal and lateral views of the chest are obtained. FINDINGS: Heart is enlarged. There is no heart failure. Costophrenic angles are clear. There are alpesh st leads. Bony thorax is intact. There is spurring in the thoracic spine. IMPRESSION: Mild cardiomegaly. No active cardiopulmonary disease. No change.
[2018-01-08 20:42] LABS: Creatine Kinase MB 0.9 ng/mL (0.0-2.4); Troponin I 0.014 ng/mL (0.000-0.034)
--- NOTE | 2018-01-08 21:03 | US ---
EXAMINATION TYPE: US venous doppler duplex LE LT DATE OF EXAM: 01/08/2018 8:42 PM COMPARISON: NONE CLINICAL HISTORY: Pain. Pain edema. SIDE PERFORMED: Left TECHNIQUE: The lower extremity deep venous system is examined utilizing real time linear array sonog rubio with graded compression, doppler sonography and color-flow sonography. VESSELS IMAGED: External Iliac Vein (EIV) Common Femoral Vein Deep Femoral Vein Greater Saphenous Vein * Femoral Vein Popliteal Vein Small Saphenous Vein * Proximal Calf Veins (* superficial vessels) Left Leg: Negative for DVT No evidence of DVT left leg. IMPRESSION: No evidence of deep venous thrombosis in the left leg.
[2018-01-08 22:13] LABS: Appearance,Urine Clear (Clear); Bilirubin,Urine Negative (Negative); Blood,Urine Negative (Negative); Budding Yeast,Urine Few /hpf; Color,Urine Yellow; Glucose,Urine (UA) Negative (Negative); Granular Casts,Urine 3 /lpf (0); Ketones,Urine Negative (Negative); Leukocyte Esterase,Urine Small (Negative); Mucus,Urine Rare /hpf; Nitrite,Urine Negative (Negative); Protein,Urine 1+ (Negative); RBC,Urine 1 /hpf (0-5); Specific Gravity,Urine 1.012 (1.001-1.035); Urobilinogen,Urine <2.0 mg/dL (<2.0); WBC,Urine 22 /hpf (0-5)
[2018-01-08] MEDS ORDERED: NALOXONE 0.4 MG/ML 1 ML VIAL IV PRN (22:56)
[2018-01-08] MEDS ORDERED: VANCOMYCIN IV PER PHARMACY 1 EACH MISC MISCELLANE PRN (23:01)
[2018-01-09] MEDS ORDERED: VANCOMYCIN 2,000 MG in SODIUM CHLORIDE 0.9% 500 ML 500 ML IVPB ONE ×2
[2018-01-09 00:41] LABS: Glucose,Whole Blood 133 mg/dL (75-99)
[2018-01-09] MEDS: SODIUM CHLORIDE 0.9% 1,000 ML IV SCH ×2 (00:44→23:06)
[2018-01-09] MEDS: MORPHINE SULFATE 4 MG/ML SYRINGE IV PRN ×4 (01:25→14:55)
[2018-01-09 06:53] LABS: Glucose,Whole Blood 147 mg/dL (75-99)
[2018-01-09] MEDS ORDERED: SYMBICORT 80-4.5 MCG INHALER INHALATION SCH (08:00)
[2018-01-09 08:02] LABS: Anisocytosis Slight; Basophils % (A) 1 %; Eosinophils # (A) 0.2 k/uL (0-0.7); Eosinophils % (A) 5 %; HCT 27.9 % (34.0-46.0); HGB 8.6 gm/dL (11.4-16.0); Hypochromasia Moderate; Lymphocytes # (A) 1.3 k/uL (1.0-4.8); Lymphocytes % (A) 36 %; MCH 30.8 pg (25.0-35.0); MCV 99.5 fL (80.0-100.0); Macrocytosis Slight; Mean Platelet Volume 8.6; Monocytes # (A) 0.3 k/uL (0-1.0); Monocytes % (A) 7 %; Neutrophils # (A) 1.7 k/uL (1.3-7.7); Neutrophils % (A) 49 %; Platelet Count 103 k/uL (150-450); RDW 16.3 % (11.5-15.5); WBC 3.5 k/uL (3.8-10.6)
[2018-01-09] MEDS: LISINOPRIL-HCTZ 20-25 MG 1 EACH TAB PO SCH (08:04)
[2018-01-09] MEDS: ANASTROZOLE 1 MG TAB PO SCH (08:04)
[2018-01-09] MEDS: ASPIRIN 81 MG PO SCH (08:04)
[2018-01-09] MEDS: ATORVASTATIN 40 MG TAB PO SCH (08:04)
[2018-01-09] MEDS: HYDROcodone/APAP 7.5-325MG 1 EACH TAB PO SCH ×3 (08:05→22:08)
[2018-01-09] MEDS: diphenhydrAMINE 50 MG CAP PO SCH (08:09)
[2018-01-09 08:15] LABS: Calcium 8.8 mg/dL (8.4-10.2); Potassium 4.7 mmol/L (3.5-5.1); Total Bilirubin 0.9 mg/dL (0.2-1.3); Total Protein 6.4 g/dL (6.3-8.2)
[2018-01-09] MEDS: INSULIN ASPART 100 UNIT/ML 1 ML 10 ML VIAL SQ SCH ×3 (08:25→17:48)
[2018-01-09] MEDS: LORazepam 1 MG TAB PO SCH ×3 (08:26→21:59)
[2018-01-09] MEDS: CYCLOBENZAPRINE 10 MG TAB PO SCH ×4 (08:26→21:59)
[2018-01-09 11:27] LABS: Glucose,Whole Blood 125 mg/dL (75-99)
--- NOTE | 2018-01-09 12:28 | P.HPIM ---
History of Present Illness 67-year-old female presented to the emergency room with complaints of of left lower leg weakness and redness. Patient also starts she's had shortness of breath with exertion for 1 week. Patient also complains of weakness. Patient has a history of COPD diabetes type 2 breast cancer with mastectomy 2012 Review of Systems Constitutional: Reports fatigue, Reports weakness Respiratory: Reports dyspnea Musculoskeletal: Reports redness of joints Past Medical History Past Medical History: Cancer, COPD, Diabetes Mellitus, Fibromyalgia, Hyperlipidemia, Hypertension, Rheumatoid Arthritis (RA), Seizure Disorder, Supraventricular Tachycardia (SVT) Additional Past Medical History / Comment(s): (R) Breast cancer with masectomy in 2012. DM Type II. Recent dental extraction (all teeth from lower jaw 2017) History of Any Multi-Drug Resistant Organisms: None Reported Past Surgical History: Adenoidectomy, Appendectomy, Breast Surgery, Cholecystectomy, Hysterectomy, Tonsillectomy, Tubal Ligation Additional Past Surgical History / Comment(s): masectomy right, ganglion cyst right hand, Had 5 "tubal pregnancies" Past Anesthesia/Blood Transfusion Reactions: No Reported Reaction Past Psychological History: Anxiety, Depression Smoking Status: Current every day smoker Past Alcohol Use History: None Reported Past Drug Use History: None Reported - Past Family History Father Family Medical History: Cancer, CVA/TIA Additional Family Medical History / Comment(s): 2000 from lung cancer Mother Family Medical History: Cancer, Dementia Additional Family Medical History / Comment(s): 2014 at age 86. Oral & Breast cancer Brother(s) Family Medical History: Asthma, Diabetes Mellitus, Fibromyalgia, Osteoarthritis (OA) Additional Family Medical History / Comment(s): Obesity. Joint replacements Medications and Allergies Home Medications Medication Instructions Recorded Confirmed Type LORazepam [Ativan] 1 mg PO TID 11/29/13 01/08/18 History Lisinopril-Hctz 20-25 mg 1 each PO DAILY 11/29/13 01/08/18 History [Zestoretic 20-25] Fluticasone/Salmeterol [Advair 1 inhalation PO RT-DAILY 06/24/14 01/08/18 History 100-50 Diskus] Anastrozole [Arimidex] 1 mg PO DAILY 09/30/14 01/08/18 History Insulin Aspart [NovoLOG] 30 units SQ AC-TID 12/16/17 01/08/18 History Insulin Detemir [Levemir Flextouch] 70 units SQ HS 12/16/17 01/08/18 History diphenhydrAMINE HCL [Benadryl] 50 mg PO DAILY 12/16/17 01/08/18 History diphenhydrAMINE [Benadryl] 25 mg PO DAILY PRN cap 12/22/17 01/08/18 Rx Aspirin 81 mg PO DAILY chew 12/25/17 01/08/18 Rx Atorvastatin [Lipitor] 40 mg PO DAILY 30 Days #30 tab 12/25/17 01/08/18 Rx Cyclobenzaprine [Flexeril] 10 mg PO TID 01/08/18 01/08/18 History HYDROcodone/APAP 7.5-325MG [[place] 1 tab PO TID 01/08/18 01/08/18 History 7.5-325] Allergies Allergy/AdvReac Type Severity Reaction Status Date / Time codeine Allergy Nausea & Verified 01/08/18 20:26 Vomiting Penicillins Allergy Rash/Hives Verified 01/08/18 20:26 phenobarbital AdvReac Unknown Verified 01/08/18 20:26 phenytoin sodium AdvReac Unknown Verified 01/08/18 20:26 [From Dilantin] phenytoin sodium extended AdvReac Unknown Verified 01/08/18 20:26 [From Dilantin] primidone [From Mysoline] AdvReac Unknown Verified 01/08/18 20:26 Physical Exam Vitals: Vital Signs Temp Pulse Pulse Resp BP BP Pulse Ox 01/09/18 08:08 97.8 F 94 15 117/63 96 01/09/18 04:23 98.1 F 93 16 130/67 93 L 01/09/18 00:00 97.6 F 102 H 16 180/85 96 01/08/18 23:40 97.8 F 98 18 119/68 95 01/08/18 21:57 97 18 129/76 97 01/08/18 17:02 97.8 F 105 H 20 135/72 96 Intake and Output 01/08/18 01/09/18 01/09/18 22:59 06:59 14:59 Intake Total 620 Output Total 225 Balance 395 Intake: Intake, IV Titration 620 Amount Sodium Chloride 0.9% 1, 120 000 ml @ 20 mls/hr IV . Q24H ROS Rx#:[id number] Vancomycin 2,000 mg In 500 Sodium Chloride 0.9% 500 ml 500 ml @ 167 mls/hr IVPB Q24H ROS Rx#: [id number] Output: Urine 225 Other: Voiding Method Bedpan Bedpan Diaper Diaper Incontinent Incontinent # Voids 2 Weight 122.47 kg 139 kg - Constitutional General appearance: morbidly obese - EENT Eyes: PERRLA Ears: bilateral: normal - Neck Neck: normal ROM - Respiratory Respiratory: bilateral: rales (bases) - Cardiovascular Rhythm: regular Abnormal Heart Sounds: systolic murmur leg Peripheral Edema: bilateral: 3+ - Gastrointestinal General gastrointestinal: soft - Integumentary Left lower leg Integumentary: cellulitis - Neurologic Neurologic: CNII-XII intact - Musculoskeletal Musculoskeletal: generalized weakness - Psychiatric Psychiatric: A&O x's 3, appropriate affect, intact judgment & insight Results CBC & Chem 7: 01/09/18 07:39 01/09/18 07:39 Labs: Abnormal Lab Results - Last 24 Hours (Table) 01/08/18 01/08/18 01/08/18 Range/Units 19:44 19:44 21:55 WBC 3.2 L (3.8-10.6) k/uL RBC 3.02 L (3.80-5.40) m/uL Hgb 9.2 L (11.4-16.0) gm/dL Hct 29.5 L (34.0-46.0) % RDW 16.2 H (11.5-15.5) % Plt Count 107 L (150-450) k/uL Lymphocytes # 0.7 L (1.0-4.8) k/uL Chloride 108 H (98-107) mmol/L BUN 23 H (7-17) mg/dL Creatinine 1.21 H (0.52-1.04) mg/dL Glucose (74-99) mg/dL POC Glucose (mg/dL) (75-99) mg/dL AST 37 H (14-36) U/L Albumin 3.3 L (3.5-5.0) g/dL Urine Protein 1+ H (Negative) Ur Leukocyte Esterase Small H (Negative) Urine WBC 22 H (0-5) /hpf Urine Mucus Rare H (None) /hpf Urine Yeast (Budding) Few H (None) /hpf 01/09/18 01/09/18 01/09/18 Range/Units 00:39 06:52 07:39 WBC 3.5 L (3.8-10.6) k/uL RBC 2.80 L (3.80-5.40) m/uL Hgb 8.6 L (11.4-16.0) gm/dL Hct 27.9 L (34.0-46.0) % RDW 16.3 H (11.5-15.5) % Plt Count 103 L (150-450) k/uL Lymphocytes # (1.0-4.8) k/uL Chloride (98-107) mmol/L BUN (7-17) mg/dL Creatinine (0.52-1.04) mg/dL Glucose (74-99) mg/dL POC Glucose (mg/dL) 133 H 147 H (75-99) mg/dL AST (14-36) U/L Albumin (3.5-5.0) g/dL Urine Protein (Negative) Ur Leukocyte Esterase (Negative) Urine WBC (0-5) /hpf Urine Mucus (None) /hpf Urine Yeast (Budding) (None) /hpf 01/09/18 01/09/18 Range/Units 07:39 11:25 WBC (3.8-10.6) k/uL RBC (3.80-5.40) m/uL Hgb (11.4-16.0) gm/dL Hct (34.0-46.0) % RDW (11.5-15.5) % Plt Count (150-450) k/uL Lymphocytes # (1.0-4.8) k/uL Chloride 108 H (98-107) mmol/L BUN 22 H (7-17) mg/dL Creatinine 1.34 H (0.52-1.04) mg/dL Glucose 129 H (74-99) mg/dL POC Glucose (mg/dL) 125 H (75-99) mg/dL AST (14-36) U/L Albumin 3.0 L (3.5-5.0) g/dL Urine Protein (Negative) Ur Leukocyte Esterase (Negative) Urine WBC (0-5) /hpf Urine Mucus (None) /hpf Urine Yeast (Budding) (None) /hpf Abdominal x-ray: report reviewed Venous US: report reviewed Thrombosis Risk Factor Assmnt - Choose All That Apply Each Factor Represents 1 point: Abnormal pulmonary function (COPD), Sepsis (< 1month), Swollen legs (current) Other Risk Factors: Yes Each Risk Factor Represents 2 Points: Age 61-74 years Other congenital or acquired thrombophilia - If yes, enter type in comment: No Thrombosis Risk Factor Assessment Total Risk Factor Score: 5 Thrombosis Risk Factor Assessment Level: High Risk Assessment and Plan Plan: Assessment Left leg cellulitis Weakness Exertional dyspnea History of COPD Diabetes type 2 Fibromyalgia hyperlipidemia History of SVT Rheumatoid arthritis History of breast cancer with mastectomy 2012 Hypertension Seizure disorder Chronic renal failure GFR 42 Plan Consultation with infectious disease regarding cellulitis 2-D echo ordered
[2018-01-09 17:29] LABS: Glucose,Whole Blood 86 mg/dL (75-99)
[2018-01-09] MEDS: SYMBICORT 80-4.5 MCG INHALER INHALATION SCH (20:05)
[2018-01-09 20:58] LABS: Glucose,Whole Blood 112 mg/dL (75-99)
[2018-01-09] MEDS ORDERED: ceFAZolin 2,000 MG in DEXTROSE/WATER 1 50ML.BAG IVPB SCH (21:00)
[2018-01-09] MEDS ORDERED: INSULIN DETEMIR 100 UNIT/ML 10 ML VIAL SQ SCH (21:00)
--- NOTE | 2018-01-09 22:11 | P.CONS ---
History of Present Illness - Reason for Consult Consult date: 01/09/18 - Chief Complaint Increasing weakness - History of Present Illness 67-year-old female who has multiple medical troubles including underlying cardiomyopathy was recently hospitalized with a bout of E. coli sepsis from urinary tract infection. The patient relates she completed her course of antibiotic therapy approximately a week ago and has continued to have increasing difficulties. She was to go to her physician's office today for an evaluation however she was so weak she was unable to get in the car. Because of this EMS was called and she was brought to emergency center where she'll find evidence of significant weakness. Generalized malaise. Evidence of pancytopenia with concerns to sepsis and cellulitis to the left lower extremity and she was admitted and infectious diseases consultation was requested. The patient relates that the leg especially at the foot is tender it is worsened over the last week. She has no trauma to the area. She has obesity and chronic lower extremity edema. Review of Systems 67-year-old woman relates she feels poorly generalized weakness HEENT:Denies headache or acute visual change. Denies sinus or mouth discomforts. Denies neck stiffness or pain. Denies significant oral cavity pain. Denies difficulty on swallowing. Lungs: She has chronic shortness of breath but denies cough sputum production or hemoptysis Cardiovascular: Chronic shortness of breath, dyspnea on exertion which is not new, poor exercise tolerance denies orthopnea no syncope Gastrointestinal:Denies nausea, vomiting, diarrhea, constipation, hematemesis, melena, hematochezia. No no significant change of bowel habit noticed. Musculoskeletal: Has chronic musculoskeletal pain partially from her fibromyalgia is not acutely worse today Skin: Area of redness and tenderness on the left leg especially in the dorsum of the left foot Neuro: Denies headache or visual change. Denies any new onset weakness or difficulty with ambulation. Denies falls or seizures. Psychiatric: Chronic anxiety denies acute depression Endocrine: Chronic fatigue, obesity Past Medical History Past Medical History: Cancer, COPD, Diabetes Mellitus, Fibromyalgia, Hyperlipidemia, Hypertension, Rheumatoid Arthritis (RA), Seizure Disorder, Supraventricular Tachycardia (SVT) Additional Past Medical History / Comment(s): (R) Breast cancer with masectomy in 2012. DM Type II. Recent dental extraction (all teeth from lower jaw 2017) History of Any Multi-Drug Resistant Organisms: None Reported Past Surgical History: Adenoidectomy, Appendectomy, Breast Surgery, Cholecystectomy, Hysterectomy, Tonsillectomy, Tubal Ligation Additional Past Surgical History / Comment(s): masectomy right, ganglion cyst right hand, Had 5 "tubal pregnancies" Past Anesthesia/Blood Transfusion Reactions: No Reported Reaction Past Psychological History: Anxiety, Depression Additional Psychological History / Comment(s): Remains a daily smoker. Her daughter lives with her. No experience. Did not work outside of the home. No international travel. There is a pet dog in the home. No alcohol use Smoking Status: Current every day smoker Past Alcohol Use History: None Reported Past Drug Use History: None Reported - Past Family History Father Family Medical History: Cancer, CVA/TIA Additional Family Medical History / Comment(s): 2000 from lung cancer Mother Family Medical History: Cancer, Dementia Additional Family Medical History / Comment(s): 2014 at age 86. Oral & Breast cancer Brother(s) Family Medical History: Asthma, Diabetes Mellitus, Fibromyalgia, Osteoarthritis (OA) Additional Family Medical History / Comment(s): Obesity. Joint replacements Medications and Allergies Home Medications and Allergies Comment(s): Current Medications Hydrocodone Bitart/Acetaminophen ([place] 7.5-325) 1 each PO TID [facility] Last Admin: 01/09/18 15:50 Dose: Not Given Anastrozole (Arimidex) 1 mg PO DAILY [facility] Last Admin: 01/09/18 08:04 Dose: 1 mg Aspirin (Aspirin) 81 mg PO DAILY [facility] Last Admin: 01/09/18 08:04 Dose: 81 mg Atorvastatin Calcium (Lipitor) 40 mg PO DAILY [facility] Last Admin: 01/09/18 08:04 Dose: 40 mg Budesonide/Formoterol Fumarate (Symbicort 80-4.5 Mcg Inhaler) 2 puff INHALATION RT-BID [facility] Last Admin: 01/09/18 20:05 Dose: 2 puff Cefazolin Sodium (Kefzol) 2 gm IVP Q12HR [facility] Cyclobenzaprine HCl (Flexeril) 10 mg PO TID [facility] Last Admin: 01/09/18 21:59 Dose: 10 mg Diphenhydramine HCl (Benadryl) 25 mg PO DAILY PRN PRN Reason: Itching Diphenhydramine HCl (Benadryl) 50 mg PO DAILY [facility] Last Admin: 01/09/18 08:09 Dose: Not Given Lisinopril/HCTZ (Zestoretic 20-25) 1 each PO DAILY [facility] Last Admin: 01/09/18 08:04 Dose: 1 each Sodium Chloride (Saline 0.9%) 1,000 mls @ 20 mls/hr IV .Q24H [facility] Last Admin: 01/09/18 00:44 Dose: 20 mls/hr Insulin Aspart (Novolog) 30 unit SQ AC-TID [facility] Last Admin: 01/09/18 17:48 Dose: Not Given Insulin Detemir (Levemir) 70 unit SQ HS [facility] Lorazepam (Ativan) 1 mg PO TID [facility] Last Admin: 01/09/18 21:59 Dose: 1 mg Morphine Sulfate (Morphine Sulfate (Inj)) 4 mg IV Q4HR PRN PRN Reason: Severe Pain Last Admin: 01/09/18 14:55 Dose: 4 mg Naloxone HCl (Narcan) 0.2 mg IV Q2M PRN PRN Reason: Opioid Reversal Silver Sulfadiazine (Silvadene Cream) 1 applic TOPICAL DAILY [facility] Last Admin: 01/09/18 17:47 Dose: 1 applic Home Medications Medication Instructions Recorded Confirmed Type LORazepam [Ativan] 1 mg PO TID 11/29/13 01/08/18 History Lisinopril-Hctz 20-25 mg 1 each PO DAILY 11/29/13 01/08/18 History [Zestoretic 20-25] Fluticasone/Salmeterol [Advair 1 inhalation PO RT-DAILY 06/24/14 01/08/18 History 100-50 Diskus] Anastrozole [Arimidex] 1 mg PO DAILY 09/30/14 01/08/18 History Insulin Aspart [NovoLOG] 30 units SQ AC-TID 12/16/17 01/08/18 History Insulin Detemir [Levemir Flextouch] 70 units SQ HS 12/16/17 01/08/18 History diphenhydrAMINE HCL [Benadryl] 50 mg PO DAILY 12/16/17 01/08/18 History diphenhydrAMINE [Benadryl] 25 mg PO DAILY PRN cap 12/22/17 01/08/18 Rx Aspirin 81 mg PO DAILY chew 12/25/17 01/08/18 Rx Atorvastatin [Lipitor] 40 mg PO DAILY 30 Days #30 tab 11/12/18 11/26/18 Rx Cyclobenzaprine [Flexeril] 10 mg PO TID 01/08/18 01/08/18 History HYDROcodone/APAP 7.5-325MG [[place] 1 tab PO TID 01/08/18 01/08/18 History 7.5-325] Allergies Allergy/AdvReac Type Severity Reaction Status Date / Time codeine Allergy Nausea & Verified 01/08/18 20:26 Vomiting Penicillins Allergy Rash/Hives Verified 01/08/18 20:26 phenobarbital AdvReac Unknown Verified 01/08/18 20:26 phenytoin sodium AdvReac Unknown Verified 01/08/18 20:26 [From Dilantin] phenytoin sodium extended AdvReac Unknown Verified 01/08/18 20:26 [From Dilantin] primidone [From Mysoline] AdvReac Unknown Verified 01/08/18 20:26 Physical Exam Vitals: Vital Signs Temp Pulse Pulse Resp BP BP Pulse Ox 01/09/18 21:21 97.6 F 94 12 102/46 93 L 01/09/18 16:00 70 16 01/09/18 12:23 97.8 F 89 15 127/54 95 01/09/18 08:08 97.8 F 94 15 117/63 96 01/09/18 08:00 70 16 01/09/18 04:23 98.1 F 93 16 130/67 93 L 01/09/18 00:00 97.6 F 102 H 16 180/85 96 01/08/18 23:40 97.8 F 98 18 119/68 95 Intake and Output 01/09/18 01/09/18 01/09/18 06:59 14:59 22:59 Intake Total 620 400 Output Total 225 Balance 395 400 Intake: Intake, IV Titration 620 Amount Sodium Chloride 0.9% 1, 120 000 ml @ 20 mls/hr IV . Q24H ROS Rx#:[id number] Vancomycin 2,000 mg In 500 Sodium Chloride 0.9% 500 ml 500 ml @ 167 mls/hr IVPB Q24H ROS Rx#: [id number] Oral 400 Output: Urine 225 Other: Voiding Method Bedpan Bedpan Bedpan Diaper Diaper Diaper Incontinent Incontinent Incontinent # Voids 2 1 Weight 139 kg 67-year-old woman with significant obesity uncomfortable overall with fatigue and malaise HEENT: Anicteric conjunctiva are pink and moist nasal mucosa grossly intact without significant lesions, there is no thrush. Neck: The neck is supple without significant lymphadenopathy or thyromegaly. Lungs: They're symmetrical air entry, few expiratory wheezes are heard no amador bronchial sounds no dullness or egophony was noted Heart: Regular rate and rhythm with an audible S1-S2, no S3 loud S4. There is no significant murmur click or rub, PMI was nondisplaced. Abdomen: Obese, Positive bowel sounds soft and nontender without palpable masses or organomegaly. There was no guarding or rebound. Extremities: The upper extremities have excellent pulses they are symmetric, no significant petechiae or telangiectasia. No splinter hemorrhages were noted. Lower extremities have chronic lipedema and venous stasis changes present evidence of a dense erythema on the dorsum of the left foot and some erythema also on pretibial area of the left leg. Right leg is without acute lesions, nail care is poor Neurologically she is awake alert oriented to person place and time exhibits no new acute gross focal sensory motor deficits but does have neuropathy to bilateral feet. Results CBC & Chem 7: 01/09/18 07:39 01/09/18 07:39 Labs: Abnormal Lab Results - Last 24 Hours (Table) 01/08/18 01/09/18 01/09/18 Range/Units 21:55 00:39 06:52 WBC (3.8-10.6) k/uL RBC (3.80-5.40) m/uL Hgb (11.4-16.0) gm/dL Hct (34.0-46.0) % RDW (11.5-15.5) % Plt Count (150-450) k/uL Chloride (98-107) mmol/L BUN (7-17) mg/dL Creatinine (0.52-1.04) mg/dL Glucose (74-99) mg/dL POC Glucose (mg/dL) 133 H 147 H (75-99) mg/dL Albumin (3.5-5.0) g/dL Urine Protein 1+ H (Negative) Ur Leukocyte Esterase Small H (Negative) Urine WBC 22 H (0-5) /hpf Urine Mucus Rare H (None) /hpf Urine Yeast (Budding) Few H (None) /hpf 01/09/18 01/09/18 01/09/18 Range/Units 07:39 07:39 11:25 WBC 3.5 L (3.8-10.6) k/uL RBC 2.80 L (3.80-5.40) m/uL Hgb 8.6 L (11.4-16.0) gm/dL Hct 27.9 L (34.0-46.0) % RDW 16.3 H (11.5-15.5) % Plt Count 103 L (150-450) k/uL Chloride 108 H (98-107) mmol/L BUN 22 H (7-17) mg/dL Creatinine 1.34 H (0.52-1.04) mg/dL Glucose 129 H (74-99) mg/dL POC Glucose (mg/dL) 125 H (75-99) mg/dL Albumin 3.0 L (3.5-5.0) g/dL Urine Protein (Negative) Ur Leukocyte Esterase (Negative) Urine WBC (0-5) /hpf Urine Mucus (None) /hpf Urine Yeast (Budding) (None) /hpf 01/09/18 Range/Units 20:45 WBC (3.8-10.6) k/uL RBC (3.80-5.40) m/uL Hgb (11.4-16.0) gm/dL Hct (34.0-46.0) % RDW (11.5-15.5) % Plt Count (150-450) k/uL Chloride (98-107) mmol/L BUN (7-17) mg/dL Creatinine (0.52-1.04) mg/dL Glucose (74-99) mg/dL POC Glucose (mg/dL) 112 H (75-99) mg/dL Albumin (3.5-5.0) g/dL Urine Protein (Negative) Ur Leukocyte Esterase (Negative) Urine WBC (0-5) /hpf Urine Mucus (None) /hpf Urine Yeast (Budding) (None) /hpf Laboratory Results WBC 3.5 k/uL (3.8-10.6) L 01/09/18 07:39 RBC 2.80 m/uL (3.80-5.40) L 01/09/18 07:39 Hgb 8.6 gm/dL (11.4-16.0) L 01/09/18 07:39 Hct 27.9 % (34.0-46.0) L 01/09/18 07:39 MCV 99.5 fL (80.0-100.0) 01/09/18 07:39 MCH 30.8 pg (25.0-35.0) 01/09/18 07:39 MCHC 31.0 g/dL (31.0-37.0) 01/09/18 07:39 RDW 16.3 % (11.5-15.5) H 01/09/18 07:39 Plt Count 103 k/uL (150-450) L 01/09/18 07:39 Neutrophils % 49 % 01/09/18 07:39 Lymphocytes % 36 % 01/09/18 07:39 Monocytes % 7 % 01/09/18 07:39 Eosinophils % 5 % 01/09/18 07:39 Basophils % 1 % 01/09/18 07:39 Neutrophils # 1.7 k/uL (1.3-7.7) 01/09/18 07:39 Lymphocytes # 1.3 k/uL (1.0-4.8) 01/09/18 07:39 Monocytes # 0.3 k/uL (0-1.0) 01/09/18 07:39 Eosinophils # 0.2 k/uL (0-0.7) 01/09/18 07:39 Basophils # 0.0 k/uL (0-0.2) 01/09/18 07:39 Hypochromasia Moderate 01/09/18 07:39 Anisocytosis Slight 01/09/18 07:39 Macrocytosis Slight 01/09/18 07:39 PT 10.9 sec (9.0-12.0) 01/08/18 19:44 INR 1.1 (<1.2) 01/08/18 19:44 APTT 22.9 sec (22.0-30.0) 01/08/18 19:44 Sodium 138 mmol/L (137-145) 01/09/18 07:39 Potassium 4.7 mmol/L (3.5-5.1) 01/09/18 07:39 Chloride 108 mmol/L (98-107) H 01/09/18 07:39 Carbon Dioxide 24 mmol/L (22-30) 01/09/18 07:39 Anion Gap 6 mmol/L 01/09/18 07:39 BUN 22 mg/dL (7-17) H 01/09/18 07:39 Creatinine 1.34 mg/dL (0.52-1.04) H 01/09/18 07:39 Est GFR (CKD-EPI)AfAm 48 (>60 ml/min/1.73 sqM) 01/09/18 07:39 Est GFR (CKD-EPI)NonAf 42 (>60 ml/min/1.73 sqM) 01/09/18 07:39 Glucose 129 mg/dL (74-99) H 01/09/18 07:39 POC Glucose (mg/dL) 112 mg/dL (75-99) H 01/09/18 20:45 POC Glu Freelance [employer] ID 01/09/18 20:45 Calcium 8.8 mg/dL (8.4-10.2) 01/09/18 07:39 Total Bilirubin 0.9 mg/dL (0.2-1.3) 01/09/18 07:39 AST 34 U/L (14-36) 01/09/18 07:39 ALT 31 U/L (9-52) 01/09/18 07:39 Alkaline Phosphatase 109 U/L (38-126) 01/09/18 07:39 Total Creatine Kinase 59 U/L (30-135) 01/08/18 19:44 CK-MB (CK-2) 0.9 ng/mL (0.0-2.4) 01/08/18 19:44 CK-MB (CK-2) Rel Index 1.5 01/08/18 19:44 Troponin I 0.014 ng/mL (0.000-0.034) 01/08/18 19:44 Total Protein 6.4 g/dL (6.3-8.2) 01/09/18 07:39 Albumin 3.0 g/dL (3.5-5.0) L 01/09/18 07:39 Urine Color Yellow 01/08/18 21:55 Urine Appearance Clear (Clear) 01/08/18 21:55 Urine pH 6.0 (5.0-8.0) 01/08/18 21:55 Ur Specific [place] 1.012 (1.001-1.035) 01/08/18 21:55 Urine Protein 1+ (Negative) H 01/08/18 21:55 Urine Glucose (UA) Negative (Negative) 01/08/18 21:55 Urine Ketones Negative (Negative) 01/08/18 21:55 Urine Blood Negative (Negative) 01/08/18 21:55 Urine Nitrite Negative (Negative) 01/08/18 21:55 Urine Bilirubin Negative (Negative) 01/08/18 21:55 Urine Urobilinogen <2.0 mg/dL (<2.0) 01/08/18 21:55 Ur Leukocyte Esterase Small (Negative) H 01/08/18 21:55 Urine RBC 1 /hpf (0-5) 01/08/18 21:55 Urine WBC 22 /hpf (0-5) H 01/08/18 21:55 Granular Casts 3 /lpf (0) 01/08/18 21:55 Urine Mucus Rare /hpf (None) H 01/08/18 21:55 Urine Yeast (Budding) Few /hpf (None) H 01/08/18 21:55 Microbiology 01/08/18 19:44 Blood Blood Culture - Preliminary No Growth after 24 hours Assessment and Plan (1) Left leg cellulitis Narrative/Plan: 67-year-old woman with obesity presents to hospital with generalized malaise find evidence of cellulitis to the left lower extremity foot appears to be underlying sepsis with elevated lactic acid is 2.8. Antibiotic therapy will be initiated with Ancef at this time, she relates she's taken Keflex in the past with no problems. The patient has had a recent hospitalization with E. coli urinary tract infection but appears to have no acute UTI or pneumonia at this time The patient does have evidence of pancytopenia. She does have underlying multiple medical troubles. She is on Arimidex for her history of right-sided breast carcinoma. However she's had the change of her status with the pancytopenia and may need further oncology/hematology evaluation. Cultures are process which will further help direct therapy. Current Visit: Yes Status: Acute Code(s): L03.116 - CELLULITIS OF LEFT LOWER LIMB SNOMED Code(s): 668627559 (2) Hyperglycemia Current Visit: No Status: Acute Code(s): R73.9 - HYPERGLYCEMIA, UNSPECIFIED SNOMED Code(s): 14193156 (3) Obesity Current Visit: Yes Status: Acute Code(s): E66.9 - OBESITY, UNSPECIFIED SNOMED Code(s): 084403009
[2018-01-09] MEDS: ceFAZolin IN SWFI 2 GM/20 ML SYRINGE IVP SCH (22:34)
[2018-01-10] MEDS: diphenhydrAMINE 25 MG CAP PO PRN (00:18)
[2018-01-10] MEDS: MORPHINE SULFATE 4 MG/ML SYRINGE IV PRN ×2 (00:18→10:28)
[2018-01-10] MEDS ORDERED: VANCOMYCIN 2,000 MG in SODIUM CHLORIDE 0.9% 500 ML 500 ML IVPB SCH (01:00)
[2018-01-10 06:57] LABS: Glucose,Whole Blood 98 mg/dL (75-99)
[2018-01-10] MEDS: INSULIN ASPART 100 UNIT/ML 1 ML 10 ML VIAL SQ SCH ×3 (08:06→17:23)
[2018-01-10] MEDS: SYMBICORT 80-4.5 MCG INHALER INHALATION SCH ×2 (08:23→19:27)
[2018-01-10 10:08] LABS: Anisocytosis Slight; Basophils % (A) 1 %; Eosinophils # (A) 0.2 k/uL (0-0.7); Eosinophils % (A) 4 %; HCT 28.5 % (34.0-46.0); HGB 8.7 gm/dL (11.4-16.0); Hypochromasia Marked; Lymphocytes # (A) 1.5 k/uL (1.0-4.8); Lymphocytes % (A) 34 %; MCH 30.4 pg (25.0-35.0); MCHC 30.7 g/dL (31.0-37.0); Macrocytosis Slight; Mean Platelet Volume 7.6; Monocytes # (A) 0.3 k/uL (0-1.0); Monocytes % (A) 7 %; Neutrophils # (A) 2.2 k/uL (1.3-7.7); Neutrophils % (A) 52 %; Platelet Count 119 k/uL (150-450); RBC 2.88 m/uL (3.80-5.40); RDW 16.1 % (11.5-15.5); WBC 4.3 k/uL (3.8-10.6)
[2018-01-10] MEDS: ANASTROZOLE 1 MG TAB PO SCH (10:12)
[2018-01-10] MEDS: ATORVASTATIN 40 MG TAB PO SCH (10:12)
[2018-01-10] MEDS: ASPIRIN 81 MG PO SCH (10:12)
[2018-01-10] MEDS: LISINOPRIL-HCTZ 20-25 MG 1 EACH TAB PO SCH (10:14)
[2018-01-10] MEDS: diphenhydrAMINE 50 MG CAP PO SCH (10:14)
[2018-01-10] MEDS: CYCLOBENZAPRINE 10 MG TAB PO SCH ×3 (10:14→21:54)
[2018-01-10] MEDS: HYDROcodone/APAP 7.5-325MG 1 EACH TAB PO SCH ×3 (10:23→18:59)
[2018-01-10] MEDS: LORazepam 1 MG TAB PO SCH ×3 (10:24→21:54)
[2018-01-10 10:27] LABS: Albumin 3.3 g/dL (3.5-5.0); Calcium 9.1 mg/dL (8.4-10.2); Total Bilirubin 1.1 mg/dL (0.2-1.3); Total Protein 6.8 g/dL (6.3-8.2)
[2018-01-10] MEDS: ceFAZolin IN SWFI 2 GM/20 ML SYRINGE IVP SCH ×2 (10:30→21:38)
[2018-01-10 10:31] LABS: Potassium 5.6 mmol/L (3.5-5.1)
[2018-01-10] MEDS ORDERED: FUROSEMIDE 10 MG/ML 4 ML VIAL IV STA (11:21)
[2018-01-10 11:34] LABS: Glucose,Whole Blood 67 mg/dL (75-99)
[2018-01-10] MEDS ORDERED: DOCUSATE 100 MG CAP PO PRN (11:44)
--- NOTE | 2018-01-10 11:44 | P.PN ---
Subjective Patient resting in bed. Patient had consultation with the infectious disease and pulmonology. Noted rising creatinine Dr. Chappell consult Objective - Vital Signs Vital signs: Vital Signs Temp 97.8 F 01/10/18 04:16 Pulse 94 01/10/18 04:16 Resp 16 01/10/18 04:16 BP 125/58 01/10/18 04:16 Pulse Ox 95 01/10/18 04:16 Intake & Output 01/09/18 01/10/18 01/10/18 18:59 06:59 18:59 Intake Total 400 1200 Balance 400 1200 Intake: Intake, IV Titration 240 Amount Sodium Chloride 0.9% 1, 240 000 ml @ 20 mls/hr IV . Q24H [facility] Rx#:[id number] Oral 400 960 Other: Voiding Method Bedpan Bedside Commode Bedside Commode Diaper Diaper Diaper Incontinent Incontinent Incontinent # Voids 1 2 - Constitutional General appearance: Present: morbidly obese - EENT Eyes: Present: PERRLA Ears: bilateral: normal - Neck Neck: Present: normal ROM - Respiratory Respiratory: bilateral: CTA - Cardiovascular Rhythm: regular - Gastrointestinal General gastrointestinal: Present: soft - Integumentary Integumentary: Present: normal - Neurologic Neurologic: Present: CNII-XII intact - Musculoskeletal Musculoskeletal: Present: generalized weakness - Psychiatric Psychiatric: Present: A&O x's 3, appropriate affect, intact judgment & insight - Labs CBC & Chem 7: 01/10/18 09:23 01/10/18 09:23 Labs: Abnormal Lab Results - Last 24 Hours (Table) 01/09/18 01/10/18 01/10/18 Range/Units 20:45 09:23 09:23 RBC 2.88 L (3.80-5.40) m/uL Hgb 8.7 L (11.4-16.0) gm/dL Hct 28.5 L (34.0-46.0) % MCHC 30.7 L (31.0-37.0) g/dL RDW 16.1 H (11.5-15.5) % Plt Count 119 L (150-450) k/uL Potassium 5.6 H (3.5-5.1) mmol/L BUN 29 H (7-17) mg/dL Creatinine 2.45 H (0.52-1.04) mg/dL POC Glucose (mg/dL) 112 H (75-99) mg/dL AST 43 H (14-36) U/L Albumin 3.3 L (3.5-5.0) g/dL 01/10/18 Range/Units 11:34 RBC (3.80-5.40) m/uL Hgb (11.4-16.0) gm/dL Hct (34.0-46.0) % MCHC (31.0-37.0) g/dL RDW (11.5-15.5) % Plt Count (150-450) k/uL Potassium (3.5-5.1) mmol/L BUN (7-17) mg/dL Creatinine (0.52-1.04) mg/dL POC Glucose (mg/dL) 67 L (75-99) mg/dL AST (14-36) U/L Albumin (3.5-5.0) g/dL Microbiology - Last 24 Hours (Table) 01/08/18 19:44 Blood Culture - Preliminary Blood No Growth after 24 hours Assessment and Plan Plan: Assessment Left leg cellulitis with sepsis Pulmonary hypertension Right ventricular enlargement Weakness Exertional dyspnea History of COPD Diabetes type 2 Fibromyalgia Hyperlipidemia History of SVT Rheumatoid arthritis History of breast cancer with mastectomy 2012 Hypertension seizure disorder acute on chronic renal failure GFR 42 morbid obesity Plan Consultation with pulmonology cardiology infectious disease and Dr. Chappell
--- NOTE | 2018-01-10 12:34 | P.CRDCN ---
History of Present Illness History of present illness: This is a pleasant 67-year-old female past medical history significant for COPD, diabetes mellitus, hypertension, dyslipidemia, seizure disorder, breast cancer s/p mastectomy and chronic nicotine dependence. She denies history of coronary artery disease and doesn't follow with a assembly hand for any reason. We have been asked to see her in consultation for exertional shortness of breath. She states for the past week or so she has been feeling increasing dyspneic and fatigued. She was recently admitted here with urosepsis and evaluated at that time in the ICU. Echocardiogram obtained 2017 indicates mildly impaired LV systolic function with EF 45-50%, mild aortic stenosis with mean gradient 14.26 mmHg, moderate TR and moderate to severe pulmonary hypertension with RVSP 69.22 mmHg. At that time she was started on aspirin and atorvastatin. Beta blockers were not started during that admission due to persistent hypotension. She denies chest pain, dizziness, palpitations, nausea, vomiting or diaphoresis. She also denies PND or orhopnea. She complains of bilateral lower extremity edema and discomfort that is making her tearful. She has been diagnosed with left lower extremity cellulitis and is started on IV antibiotics per Dr. Villanueva. Her leg is wrapped with анна wrap at the time of my exam. EKG reveals sinus mechanism with left axis deviation and non-specific flattened T-waves. Chest xray reveals mild cardiomegaly, no acute cardiopulmonary process. Laboratory data reviewed, WBC 4.3, hgb 8.7, plt 119, sodium 138, potassium 5.6, creatinine 2.45 up from 1.21 on admission, cardiac enzymes negative x1, NTproBNP 8250. Current cardiac medications include aspirin, atorvastatin 40 mg daily, lisinopril/hctz 20/25 mg daily. At the time of my exam: CONSTITUTIONAL: Denies fever. Denies chills. EYES: Denies blurred vision. Denies vision changes. Denies eye pain. EARS, NOSE, MOUTH & THROAT: Denies headache. Denies sore throat. Denies ear pain. CARDIOVASCULAR: Denies chest pain. Denies shortness of breath. Denies orthopnea. Denies PND. Denies palpitations. RESPIRATORY: Denies cough. GASTROINTESTINAL: Denies abdominal pain. Denies diarrhea. Denies constipation. Denies nausea. Denies vomiting. MUSCULOSKELETAL: Complains of pain to bilateral lower extremities. INTEGUMENTARY: Denies pruitis. Denies rash. NEUROLOGIC: Denies numbness. Denies tingling. Denies weakness. PSYCHIATRIC: Denies anxiety. Denies depression. ENDOCRINE: Denies fatigue. Denies weight change. Denies polydipsia. Denies polyurina. GENITOURINARY: Denies burning, hematuria or urgency with micturation. HEMATOLOGIC: Denies history of anemia. Denies bleeding. Blood pressure 125/58 heart rate 94 afebrile maintaining oxygen saturation on room air. GENERAL: This is a 67-year-old female in no apparent distress at the time of my examination. Morbidly obese. HEENT: Head is atraumatic, normocephalic. Pupils are equal, round. Sclerae anicteric. Conjunctivae are clear. Mucous membranes of the mouth are moist. Neck is supple. There is no jugular venous distention. No carotid bruit is heard. LUNGS: Clear to auscultation no wheezes, rales or rhonchi. No chest wall tenderness is noted on palpation or with deep breathing. Diminished bilaterally. HEART: Regular rate and rhythm without murmurs, rubs or gallops. S1 and S2 heard. ABDOMEN: Soft, nontender. Bowel sounds are heard. No organomegaly noted. EXTREMITIES: Trace edema to right lower extremity, left leg wrapped with анна bandage. No redness on visualized skin. VASCULAR: Radial and dorsalis pedis pulses palpated, no evidence of clubbing. NEUROLOGIC: Patient is awake, alert and oriented x3. ASSESSMENT Left lower extremity cellulitis Mild exacerbation of diastolic heart failure due to right sided heart failure Pulmonary hypertension Tricuspid regurgitation Hypertension Dyslipidemia COPD Diabetes mellitus Chronic kidney disease, GFR 20 Hyperkalemia Chronic anemia PLAN Give one time dose of IV lasix. Follow kidney function and electrolytes tomorrow and will make further recommendations. May reconsider lisinopril/hctz if kidney function and potassium continue to elevate. Nephrology has been consulted as well. Follow weight daily. Further recommendations to follow, thank you kindly for this consultation. Nurse Practitioner note has been reviewed, I agree with a documented findings and plan of care. Patient was seen and examined. Past Medical History Past Medical History: Cancer, COPD, Diabetes Mellitus, Fibromyalgia, Hyperlipidemia, Hypertension, Rheumatoid Arthritis (RA), Seizure Disorder, Supraventricular Tachycardia (SVT) Additional Past Medical History / Comment(s): (R) Breast cancer with masectomy in 2012. DM Type II. Recent dental extraction (all teeth from lower jaw 2017) History of Any Multi-Drug Resistant Organisms: None Reported Past Surgical History: Adenoidectomy, Appendectomy, Breast Surgery, Cholecystectomy, Hysterectomy, Tonsillectomy, Tubal Ligation Additional Past Surgical History / Comment(s): masectomy right, ganglion cyst right hand, Had 5 "tubal pregnancies" Past Anesthesia/Blood Transfusion Reactions: No Reported Reaction Past Psychological History: Anxiety, Depression Additional Psychological History / Comment(s): Remains a daily smoker. Her daughter lives with her. No experience. Did not work outside of the home. No international travel. There is a pet dog in the home. No alcohol use Smoking Status: Current every day smoker Past Alcohol Use History: None Reported Past Drug Use History: None Reported - Past Family History Father Family Medical History: Cancer, CVA/TIA Additional Family Medical History / Comment(s): 2000 from lung cancer Mother Family Medical History: Cancer, Dementia Additional Family Medical History / Comment(s): 2014 at age 86. Oral & Breast cancer Brother(s) Family Medical History: Asthma, Diabetes Mellitus, Fibromyalgia, Osteoarthritis (OA) Additional Family Medical History / Comment(s): Obesity. Joint replacements Medications and Allergies Home Medications Medication Instructions Recorded Confirmed Type LORazepam [Ativan] 1 mg PO TID 11/29/13 01/08/18 History Lisinopril-Hctz 20-25 mg 1 each PO DAILY 11/29/13 01/08/18 History [Zestoretic 20-25] Fluticasone/Salmeterol [Advair 1 inhalation PO RT-DAILY 06/24/14 01/08/18 History 100-50 Diskus] Anastrozole [Arimidex] 1 mg PO DAILY 09/30/14 01/08/18 History Insulin Aspart [NovoLOG] 30 units SQ AC-TID 12/16/17 01/08/18 History Insulin Detemir [Levemir Flextouch] 70 units SQ HS 12/16/17 01/08/18 History diphenhydrAMINE HCL [Benadryl] 50 mg PO DAILY 12/16/17 01/08/18 History diphenhydrAMINE [Benadryl] 25 mg PO DAILY PRN cap 12/22/17 01/08/18 Rx Aspirin 81 mg PO DAILY chew 12/25/17 01/08/18 Rx Atorvastatin [Lipitor] 40 mg PO DAILY 30 Days #30 tab 12/25/17 01/08/18 Rx Cyclobenzaprine [Flexeril] 10 mg PO TID 01/08/18 01/08/18 History HYDROcodone/APAP 7.5-325MG [[place] 1 tab PO TID 01/08/18 01/08/18 History 7.5-325] Allergies Allergy/AdvReac Type Severity Reaction Status Date / Time codeine Allergy Nausea & Verified 01/08/18 20:26 Vomiting Penicillins Allergy Rash/Hives Verified 01/08/18 20:26 phenobarbital AdvReac Unknown Verified 01/08/18 20:26 phenytoin sodium AdvReac Unknown Verified 01/08/18 20:26 [From Dilantin] phenytoin sodium extended AdvReac Unknown Verified 01/08/18 20:26 [From Dilantin] primidone [From Mysoline] AdvReac Unknown Verified 01/08/18 20:26 Physical Exam Vitals: Vital Signs Temp Pulse Resp BP Pulse Ox 01/10/18 04:16 97.8 F 94 16 125/58 95 01/09/18 22:07 124/59 01/09/18 21:21 97.6 F 94 12 102/46 93 L 01/09/18 16:00 70 16 01/09/18 12:23 97.8 F 89 15 127/54 95 Intake and Output 01/09/18 01/10/18 01/10/18 22:59 06:59 14:59 Intake Total 560 640 Balance 560 640 Intake: Intake, IV Titration 80 160 Amount Sodium Chloride 0.9% 1, 80 160 000 ml @ 20 mls/hr IV . Q24H [facility] Rx#:[id number] Oral 480 480 Other: Voiding Method Bedpan Bedside Commode Bedside Commode Diaper Diaper Diaper Incontinent Incontinent Incontinent # Voids 1 2 Results 01/10/18 09:23 01/10/18 09:23 Cardiac Enzymes 01/10/18 Range/Units 09:23 AST 43 H (14-36) U/L CBC 01/10/18 Range/Units 09:23 WBC 4.3 (3.8-10.6) k/uL RBC 2.88 L (3.80-5.40) m/uL Hgb 8.7 L (11.4-16.0) gm/dL Hct 28.5 L (34.0-46.0) % Plt Count 119 L (150-450) k/uL Comprehensive Metabolic Panel 01/10/18 Range/Units 09:23 Sodium 138 (137-145) mmol/L Potassium 5.6 H (3.5-5.1) mmol/L Chloride 106 (98-107) mmol/L Carbon Dioxide 22 (22-30) mmol/L BUN 29 H (7-17) mg/dL Creatinine 2.45 H (0.52-1.04) mg/dL Glucose 82 (74-99) mg/dL Calcium 9.1 (8.4-10.2) mg/dL AST 43 H (14-36) U/L ALT 21 (9-52) U/L Alkaline Phosphatase 88 (38-126) U/L Total Protein 6.8 (6.3-8.2) g/dL Albumin 3.3 L (3.5-5.0) g/dL Current Medications Generic Name Dose Route Start Last Admin Trade Name Freq PRN Reason Stop Dose Admin Hydrocodone Bitart/Acetaminophen 1 each 01/09/18 09:00 01/10/18 10:23 [place] 7.5-325 PO Not Given TID ROS Anastrozole 1 mg 01/09/18 09:00 01/10/18 10:12 Arimidex PO 1 mg DAILY ROS Administration Aspirin 81 mg 01/09/18 09:00 01/10/18 10:12 Aspirin PO 81 mg DAILY ROS Administration Atorvastatin Calcium 40 mg 01/09/18 09:00 01/10/18 10:12 Lipitor PO 40 mg DAILY ROS Administration Budesonide/Formoterol Fumarate 2 puff 01/09/18 20:00 01/10/18 08:23 Symbicort 80-4.5 Mcg Inhaler INHALATION 2 puff RT-BID ROS Administration Cefazolin Sodium 2 gm 01/09/18 21:00 01/10/18 10:30 Kefzol IVP 2 gm Q12HR ROS Administration Cyclobenzaprine HCl 10 mg 01/09/18 09:00 01/10/18 10:14 Flexeril PO 10 mg TID ROS Administration Diphenhydramine HCl 25 mg 01/08/18 23:02 01/10/18 00:18 Benadryl PO 25 mg DAILY PRN Administration Itching Diphenhydramine HCl 50 mg 01/09/18 09:00 01/10/18 10:14 Benadryl PO 50 mg DAILY ROS Administration Lisinopril/HCTZ 1 each 01/09/18 09:00 01/10/18 10:14 Zestoretic 20-25 PO 1 each DAILY ROS Administration Sodium Chloride 1,000 mls @ 20 mls/hr 01/08/18 23:00 01/09/18 23:06 Saline 0.9% IV Not Given .Q24H ROS Insulin Aspart 30 unit 01/09/18 07:30 01/10/18 08:06 Novolog SQ 30 unit AC-TID ROS Administration Insulin Detemir 70 unit 01/10/18 06:41 Levemir SQ HS ROS Lorazepam 1 mg 01/09/18 09:00 01/10/18 10:24 Ativan PO 1 mg TID ROS Administration Morphine Sulfate 4 mg 01/08/18 22:56 01/10/18 10:28 Morphine Sulfate (Inj) IV 4 mg Q4HR PRN Administration Severe Pain Naloxone HCl 0.2 mg 01/08/18 22:56 Narcan IV Q2M PRN Opioid Reversal Silver Sulfadiazine 1 applic 01/09/18 16:15 01/10/18 10:24 Silvadene Cream TOPICAL 1 applic DAILY ROS Administration Intake and Output 01/09/18 01/10/18 01/10/18 22:59 06:59 14:59 Intake Total 560 640 Balance 560 640 Intake: Intake, IV Titration 80 160 Amount Sodium Chloride 0.9% 1, 80 160 000 ml @ 20 mls/hr IV . Q24H [facility] Rx#:[id number] Oral 480 480 Other: Voiding Method Bedpan Bedside Commode Bedside Commode Diaper Diaper Diaper Incontinent Incontinent Incontinent # Voids 1 2 01/10/18 09:23 01/10/18 09:23
[2018-01-10 12:42] LABS: Glucose,Whole Blood 72 mg/dL (75-99)
--- NOTE | 2018-01-10 13:31 | P.CNPUL ---
History of Present Illness Consult date: 01/10/18 Requesting physician: Handy Delcid Chief complaint: Shortness of breath History of present illness: This is a very pleasant 67-year-old female patient who follows with Dr. Handy Delcid is her primary care physician. She has a history of diabetes mellitus, fibromyalgia, hyperlipidemia, hypertension, rheumatoid arthritis, seizure disorder, SVT, right breast cancer status post mastectomy, anxiety/depression, pulmonary hypertension. She also has a history of chronic obstructive pulmonary disease and has chronic and ongoing tobacco dependence. She is on Advair. She was recently discharged from here after being admitted for septic shock secondary to urinary tract infection. She was seen by our group in the intensive care unit for her sepsis. She presented here to the hospital yesterday after having increased swelling of the left lower extremity and shortness of breath. Chest x-ray shows evidence of cardiomegaly but no acute cardiopulmonary process. Doppler of the left lower extremity was negative for DVT. She is seen today in consultation on the regular medical floor. She is currently awake and alert in no acute distress. She is resting comfortably in bed. She denies any shortness of breath, cough or congestion. She is maintaining O2 saturations in the mid 90s on room air. She's been afebrile. Hemodynamically stable. Blood cultures reveal no growth to date. White count 4.3. Hemoglobin 8.7. Creatinine 2.45. ProBNP 8250. Review of Systems 14 point review of systems was conducted. All negative other than as mentioned in HPI. Past Medical History Past Medical History: Cancer, COPD, Diabetes Mellitus, Fibromyalgia, Hyperlipidemia, Hypertension, Rheumatoid Arthritis (RA), Seizure Disorder, Supraventricular Tachycardia (SVT) Additional Past Medical History / Comment(s): (R) Breast cancer with masectomy in 2012. DM Type II. Recent dental extraction (all teeth from lower jaw 2017) History of Any Multi-Drug Resistant Organisms: None Reported Past Surgical History: Adenoidectomy, Appendectomy, Breast Surgery, Cholecystectomy, Hysterectomy, Tonsillectomy, Tubal Ligation Additional Past Surgical History / Comment(s): masectomy right, ganglion cyst right hand, Had 5 "tubal pregnancies" Past Anesthesia/Blood Transfusion Reactions: No Reported Reaction Past Psychological History: Anxiety, Depression Additional Psychological History / Comment(s): Remains a daily smoker. Her daughter lives with her. No experience. Did not work outside of the home. No international travel. There is a pet dog in the home. No alcohol use Smoking Status: Current every day smoker Past Alcohol Use History: None Reported Past Drug Use History: None Reported - Past Family History Father Family Medical History: Cancer, CVA/TIA Additional Family Medical History / Comment(s): 2000 from lung cancer Mother Family Medical History: Cancer, Dementia Additional Family Medical History / Comment(s): 2014 at age 86. Oral & Breast cancer Brother(s) Family Medical History: Asthma, Diabetes Mellitus, Fibromyalgia, Osteoarthritis (OA) Additional Family Medical History / Comment(s): Obesity. Joint replacements Medications and Allergies Home Medications Medication Instructions Recorded Confirmed Type LORazepam [Ativan] 1 mg PO TID 11/29/13 01/08/18 History Lisinopril-Hctz 20-25 mg 1 each PO DAILY 11/29/13 01/08/18 History [Zestoretic 20-25] Fluticasone/Salmeterol [Advair 1 inhalation PO RT-DAILY 06/24/14 01/08/18 History 100-50 Diskus] Anastrozole [Arimidex] 1 mg PO DAILY 09/30/14 01/08/18 History Insulin Aspart [NovoLOG] 30 units SQ AC-TID 12/16/17 01/08/18 History Insulin Detemir [Levemir Flextouch] 70 units SQ HS 12/16/17 01/08/18 History diphenhydrAMINE HCL [Benadryl] 50 mg PO DAILY 12/16/17 01/08/18 History diphenhydrAMINE [Benadryl] 25 mg PO DAILY PRN cap 12/22/17 01/08/18 Rx Aspirin 81 mg PO DAILY chew 12/25/17 01/08/18 Rx Atorvastatin [Lipitor] 40 mg PO DAILY 30 Days #30 tab 12/25/17 01/08/18 Rx Cyclobenzaprine [Flexeril] 10 mg PO TID 01/08/18 01/08/18 History HYDROcodone/APAP 7.5-325MG [[place] 1 tab PO TID 01/08/18 01/08/18 History 7.5-325] Allergies Allergy/AdvReac Type Severity Reaction Status Date / Time codeine Allergy Nausea & Verified 01/08/18 20:26 Vomiting Penicillins Allergy Rash/Hives Verified 01/08/18 20:26 phenobarbital AdvReac Unknown Verified 01/08/18 20:26 phenytoin sodium AdvReac Unknown Verified 01/08/18 20:26 [From Dilantin] phenytoin sodium extended AdvReac Unknown Verified 01/08/18 20:26 [From Dilantin] primidone [From Mysoline] AdvReac Unknown Verified 01/08/18 20:26 Physical Exam Vitals: Vital Signs Temp Pulse Resp BP Pulse Ox 01/10/18 12:09 97.6 F 94 15 98/71 91 L 01/10/18 04:16 97.8 F 94 16 125/58 95 01/09/18 22:07 124/59 01/09/18 21:21 97.6 F 94 12 102/46 93 L 01/09/18 16:00 70 16 Intake and Output 01/09/18 01/10/18 01/10/18 22:59 06:59 14:59 Intake Total 560 640 Balance 560 640 Intake: Intake, IV Titration 80 160 Amount Sodium Chloride 0.9% 1, 80 160 000 ml @ 20 mls/hr IV . Q24H [facility] Rx#:[id number] Oral 480 480 Other: Voiding Method Bedpan Bedside Commode Bedside Commode Diaper Diaper Diaper Incontinent Incontinent Incontinent # Voids 1 2 GENERAL EXAM: Morbidly obese. Alert, comfortable in no apparent distress. HEAD: Normocephalic. EYES: Normal reaction of pupils, equal size. NOSE: Clear with pink turbinates. THROAT: No erythema or exudates. NECK: No masses, no JVD. CHEST: No chest wall deformity. LUNGS: Equal air entry with no crackles, wheeze, rhonchi or dullness. CVS: S1 and S2 normal with no audible murmur, regular rhythm. ABDOMEN: No hepatosplenomegaly, normal bowel sounds, no guarding or rigidity. SPINE: No scoliosis or deformity SKIN: Cellulitis of the left lower extremity. CENTRAL NERVOUS SYSTEM: No focal deficits, tone is normal in all 4 extremities. EXTREMITIES: There is 1-2+ peripheral edema. Patric wrap to the left lower extremity. No clubbing, no cyanosis. Peripheral pulses are intact. Results - Laboratory Findings CBC and BMP: 01/10/18 09:23 01/10/18 09:23 PT/INR, D-dimer PT 10.9 sec (9.0-12.0) 01/08/18 19:44 INR 1.1 (<1.2) 01/08/18 19:44 Abnormal lab findings: Abnormal Labs 01/08/18 01/08/18 01/08/18 19:44 19:44 21:55 WBC 3.2 L RBC 3.02 L Hgb 9.2 L Hct 29.5 L MCHC RDW 16.2 H Plt Count 107 L Lymphocytes # 0.7 L Potassium Chloride 108 H BUN 23 H Creatinine 1.21 H Glucose POC Glucose (mg/dL) AST 37 H Albumin 3.3 L Urine Protein 1+ H Ur Leukocyte Esterase Small H Urine WBC 22 H Urine Mucus Rare H Urine Yeast (Budding) Few H 01/09/18 01/09/18 01/09/18 00:39 06:52 07:39 WBC 3.5 L RBC 2.80 L Hgb 8.6 L Hct 27.9 L MCHC RDW 16.3 H Plt Count 103 L Lymphocytes # Potassium Chloride BUN Creatinine Glucose POC Glucose (mg/dL) 133 H 147 H AST Albumin Urine Protein Ur Leukocyte Esterase Urine WBC Urine Mucus Urine Yeast (Budding) 01/09/18 01/09/18 01/09/18 07:39 11:25 20:45 WBC RBC Hgb Hct MCHC RDW Plt Count Lymphocytes # Potassium Chloride 108 H BUN 22 H Creatinine 1.34 H Glucose 129 H POC Glucose (mg/dL) 125 H 112 H AST Albumin 3.0 L Urine Protein Ur Leukocyte Esterase Urine WBC Urine Mucus Urine Yeast (Budding) 01/10/18 01/10/18 01/10/18 09:23 09:23 11:34 WBC RBC 2.88 L Hgb 8.7 L Hct 28.5 L MCHC 30.7 L RDW 16.1 H Plt Count 119 L Lymphocytes # Potassium 5.6 H Chloride BUN 29 H Creatinine 2.45 H Glucose POC Glucose (mg/dL) 67 L AST 43 H Albumin 3.3 L Urine Protein Ur Leukocyte Esterase Urine WBC Urine Mucus Urine Yeast (Budding) 01/10/18 12:21 WBC RBC Hgb Hct MCHC RDW Plt Count Lymphocytes # Potassium Chloride BUN Creatinine Glucose POC Glucose (mg/dL) 72 L AST Albumin Urine Protein Ur Leukocyte Esterase Urine WBC Urine Mucus Urine Yeast (Budding) - Diagnostic Findings Chest x-ray: image reviewed Assessment and Plan Assessment: Impression: #1 Left lower extremity cellulitis. #2 Acute exacerbation of diastolic congestive heart failure. #3 Moderate to severe pulmonary hypertension with RVSP 69 mmHg. #4 Morbid obesity. #5 Chronic obstructive pulmonary disease. #6 Chronic and ongoing tobacco dependence. #7 Acute on chronic renal failure. #8 Recent admission for septic shock secondary to urinary tract infection. #9 History of supraventricular tachycardia. #10 Diabetes mellitus, type II. #11 Diabetic neuropathy. #12 Hypertension. #13 Hyperlipidemia. #14 History of seizure disorder. #15 History of breast cancer status post right mastectomy. Currently on Arimidex. #16 Chronic anemia. Plan: The patient was seen and evaluated by Dr. Leahy. Chest x-ray and labs were reviewed. She is currently stable from the pulmonary standpoint. Maintaining good O2 saturations in the 90s on room air. We'll continue with her Symbicort for now. Add albuterol as needed. We will continue to follow and make further recommendations based on her clinical status. I, the cosigning physician, performed a history & physical examination of the patient. Lungs sounds are clear. Maintaining good O2 saturations in the 90s on room air. I discussed the assessment and plan of care with my nurse practitioner, Dodie Carvalho. I attest to the above note as dictated by her. Time with Patient: Greater than 30
--- NOTE | 2018-01-10 13:39 | P.NPCON ---
History of Present Illness - Reason for Consult acute renal failure - History of Present Illness Reason for consultation: Acute kidney injury on chronic kidney disease History of present illness: Patient is a 67-year-old female seen in renal consultation for acute kidney injury on chronic kidney disease. Patient has chronic kidney disease stage III with baseline creatinine in the range of 1.2-1.4 secondary to diabetic kidney disease. Patient presented to the hospital 2 days ago with left leg pain. There is no evidence of DVT. She is noted to have cellulitis and is maintained on antibiotics per infectious disease. Her blood pressure was also low this morning. Additionally she's been receiving lisinopril and hydrochlorothiazide which she takes as an outpatient. Due to lower extremity swelling she was given a dose of IV Lasix this morning. She does have history of systolic CHF with ejection fraction of 45-50% with moderate tricuspid regurgitation and moderate to severe pulmonary hypertension. She does admit to swelling in her legs. She has been waiting. Denies hematuria or dysuria. Denies chest pain or shortness of breath. Oral intake is fair. Denies family history of renal disease. Vital signs are stable. General: The patient appeared well nourished and normally developed. HEENT: Head exam is unremarkable. Neck is without jugular venous distension. LUNGS: Lungs are clear to auscultation and percussion. Breath sounds decreased. HEART: Rate and Rhythm are regular. First and second heart sounds normal. No murmurs, rubs or gallops. ABDOMEN: Abdominal exam reveals normal bowel sounds. Non-tender and non- distended. No evidence of peritonitis. EXTREMITITES: 1+ edema. Left lower extremity wrapped. No obvious drainage noted. Past Medical History Past Medical History: Cancer, COPD, Diabetes Mellitus, Fibromyalgia, Hyperlipidemia, Hypertension, Rheumatoid Arthritis (RA), Seizure Disorder, Supraventricular Tachycardia (SVT) Additional Past Medical History / Comment(s): (R) Breast cancer with masectomy in 2012. DM Type II. Recent dental extraction (all teeth from lower jaw 2017) History of Any Multi-Drug Resistant Organisms: None Reported Past Surgical History: Adenoidectomy, Appendectomy, Breast Surgery, Cholecystectomy, Hysterectomy, Tonsillectomy, Tubal Ligation Additional Past Surgical History / Comment(s): masectomy right, ganglion cyst right hand, Had 5 "tubal pregnancies" Past Anesthesia/Blood Transfusion Reactions: No Reported Reaction Past Psychological History: Anxiety, Depression Additional Psychological History / Comment(s): Remains a daily smoker. Her daughter lives with her. No experience. Did not work outside of the home. No international travel. There is a pet dog in the home. No alcohol use Smoking Status: Current every day smoker Past Alcohol Use History: None Reported Past Drug Use History: None Reported - Past Family History Father Family Medical History: Cancer, CVA/TIA Additional Family Medical History / Comment(s): 2000 from lung cancer Mother Family Medical History: Cancer, Dementia Additional Family Medical History / Comment(s): 2014 at age 86. Oral & Breast cancer Brother(s) Family Medical History: Asthma, Diabetes Mellitus, Fibromyalgia, Osteoarthritis (OA) Additional Family Medical History / Comment(s): Obesity. Joint replacements Medications and Allergies Home Medications Medication Instructions Recorded Confirmed Type LORazepam [Ativan] 1 mg PO TID 11/29/13 01/08/18 History Lisinopril-Hctz 20-25 mg 1 each PO DAILY 11/29/13 01/08/18 History [Zestoretic 20-25] Fluticasone/Salmeterol [Advair 1 inhalation PO RT-DAILY 06/24/14 01/08/18 History 100-50 Diskus] Anastrozole [Arimidex] 1 mg PO DAILY 09/30/14 01/08/18 History Insulin Aspart [NovoLOG] 30 units SQ AC-TID 12/16/17 01/08/18 History Insulin Detemir [Levemir Flextouch] 70 units SQ HS 12/16/17 01/08/18 History diphenhydrAMINE HCL [Benadryl] 50 mg PO DAILY 12/16/17 01/08/18 History diphenhydrAMINE [Benadryl] 25 mg PO DAILY PRN cap 12/22/17 01/08/18 Rx Aspirin 81 mg PO DAILY chew 12/25/17 01/08/18 Rx Atorvastatin [Lipitor] 40 mg PO DAILY 30 Days #30 tab 12/25/17 01/08/18 Rx Cyclobenzaprine [Flexeril] 10 mg PO TID 01/08/18 01/08/18 History HYDROcodone/APAP 7.5-325MG [Prosperity 1 tab PO TID 01/08/18 01/08/18 History 7.5-325] Allergies Allergy/AdvReac Type Severity Reaction Status Date / Time codeine Allergy Nausea & Verified 01/08/18 20:26 Vomiting Penicillins Allergy Rash/Hives Verified 01/08/18 20:26 phenobarbital AdvReac Unknown Verified 01/08/18 20:26 phenytoin sodium AdvReac Unknown Verified 01/08/18 20:26 [From Dilantin] phenytoin sodium extended AdvReac Unknown Verified 01/08/18 20:26 [From Dilantin] primidone [From Mysoline] AdvReac Unknown Verified 01/08/18 20:26 Physical Exam Vitals: Vital Signs Temp Pulse Resp BP Pulse Ox 01/10/18 12:09 97.6 F 94 15 98/71 91 L 01/10/18 04:16 97.8 F 94 16 125/58 95 01/09/18 22:07 124/59 01/09/18 21:21 97.6 F 94 12 102/46 93 L 01/09/18 16:00 70 16 Intake and Output 01/09/18 01/10/18 01/10/18 22:59 06:59 14:59 Intake Total 560 640 Balance 560 640 Intake: Intake, IV Titration 80 160 Amount Sodium Chloride 0.9% 1, 80 160 000 ml @ 20 mls/hr IV . Q24H [facility] Rx#:[id number] Oral 480 480 Other: Voiding Method Bedpan Bedside Commode Bedside Commode Diaper Diaper Diaper Incontinent Incontinent Incontinent # Voids 1 2 Results - Lab Results Most recent lab results Calcium 9.1 mg/dL (8.4-10.2) 01/10/18 09:23 01/10/18 09:23 01/10/18 09:23 Assessment and Plan Plan: Assessment: 1. Acute kidney injury mostly prerenal secondary to intravascular volume depletion from diuretics and BINDU inhibitor use. She was also receiving IV vancomycin but now level is available. Rule out urinary retention. Kidney ultrasound from earlier this month revealed no evidence of hydronephrosis with normal sized kidneys. 2. Chronic kidney disease stage III with baseline creatinine in the range of 1.2-1.4 secondary to diabetic kidney disease. 3. Systolic CHF with ejection fraction of 45-50% with moderate tricuspid regurgitation. 4. Moderate to severe pulmonary hypertension. 5. Left lower extremity cellulitis maintained on IV Kefzol. 6. Insulin-dependent diabetes mellitus. 7. Hypertension with chronic kidney disease. Blood pressure on the lower side this morning. 8. History of breast cancer status post right mastectomy and chemotherapy. 9. Anemia of chronic kidney disease. Rule out iron deficiency. 10. Mild hyperkalemia. This was a hemolyzed sample. I will recheck. Plan: Discontinue lisinopril and hydrochlorothiazide. Status post IV Lasix this morning. Check postvoid residual to rule out urinary retention. Encourage oral intake. Avoid nephrotoxins. Check iron studies. Repeat electrolytes in the morning. I advised the patient to avoid NSAIDs. Patient states she takes Aleve as needed for pain. Thank you for the consultation. I will continue to follow the patient with you during her hospital stay.
[2018-01-10] MEDS ORDERED: SODIUM CHLORIDE 0.9% 500 ML 250 ML IV ONE ×2 (16:09→17:16)
[2018-01-10 16:20] LABS: Glucose,Whole Blood 114 mg/dL (75-99)
[2018-01-10 17:14] LABS: Glucose,Whole Blood 108 mg/dL (75-99)
[2018-01-10 19:12] LABS: Iron Saturation 29.75 (12.00-45.00)
[2018-01-10] MEDS: INSULIN DETEMIR 100 UNIT/ML 10 ML VIAL SQ SCH (21:38)
[2018-01-10 21:39] LABS: Glucose,Whole Blood 130 mg/dL (75-99)
[2018-01-11] MEDS: SODIUM CHLORIDE 0.9% 1,000 ML IV SCH (00:17)
[2018-01-11] MEDS: MORPHINE SULFATE 4 MG/ML SYRINGE IV PRN ×3 (01:58→18:44)
[2018-01-11 02:14] LABS: Glucose,Whole Blood 116 mg/dL (75-99)
[2018-01-11 06:58] LABS: Glucose,Whole Blood 115 mg/dL (75-99)
[2018-01-11] MEDS: ATORVASTATIN 40 MG TAB PO SCH (07:37)
[2018-01-11] MEDS: ANASTROZOLE 1 MG TAB PO SCH (07:42)
[2018-01-11] MEDS: HYDROcodone/APAP 7.5-325MG 1 EACH TAB PO SCH ×3 (07:42→23:04)
[2018-01-11] MEDS: diphenhydrAMINE 25 MG CAP PO PRN ×2 (07:42→07:44)
[2018-01-11] MEDS: ceFAZolin IN SWFI 2 GM/20 ML SYRINGE IVP SCH ×2 (07:43→23:58)
[2018-01-11] MEDS: ASPIRIN 81 MG PO SCH (07:44)
[2018-01-11] MEDS: diphenhydrAMINE 50 MG CAP PO SCH (08:13)
[2018-01-11] MEDS: INSULIN ASPART 100 UNIT/ML 1 ML 10 ML VIAL SQ SCH ×4 (08:14→23:06)
[2018-01-11] MEDS: SYMBICORT 80-4.5 MCG INHALER INHALATION SCH ×2 (08:22→19:43)
--- NOTE | 2018-01-11 08:44 | P.PN ---
Subjective Patient is seen in follow-up for acute kidney injury on chronic kidney disease. Patient has chronic kidney disease stage III with baseline creatinine in the range of 1.2-1.4 secondary to diabetic kidney disease. Patient's currently being treated for lower extremity cellulitis. Yesterday she became quite hypotensive and lisinopril and hydrochlorothiazide were discontinued. She also received a 500 mL bolus of normal saline. Currently sitting up in bed. She is having breakfast. Admits to good urine output. Patient has history of systolic CHF with ejection fraction of 45-50% with moderate tricuspid regurgitation and moderate to severe pulmonary hypertension. Vital signs are stable. General: The patient appeared well nourished and normally developed. HEENT: Head exam is unremarkable. Neck is without jugular venous distension. LUNGS: Lungs are clear to auscultation and percussion. Breath sounds decreased. HEART: Rate and Rhythm are regular. First and second heart sounds normal. No murmurs, rubs or gallops. ABDOMEN: Abdominal exam reveals normal bowel sounds. Non-tender and non- distended. No evidence of peritonitis. EXTREMITITES: 1+ edema. Objective - Vital Signs Vital signs: Vital Signs Temp 98 F 01/11/18 03:58 Pulse 90 01/11/18 03:58 Resp 17 01/11/18 03:58 BP 98/66 01/11/18 03:58 Pulse Ox 94 L 01/11/18 03:58 Intake & Output 01/10/18 01/11/18 01/11/18 18:59 06:59 18:59 Intake Total 350 Balance 350 Weight 142.5 kg 148 kg Intake: Intake, IV Titration 110 Amount Sodium Chloride 0.9% 1, 110 000 ml @ 20 mls/hr IV . Q24H [facility] Rx#:[id number] Oral 240 Other: Voiding Method Bedside Commode Bedside Commode Diaper Diaper Incontinent Incontinent # Voids 1 1 - Labs CBC & Chem 7: 01/10/18 09:23 01/10/18 13:34 Labs: Abnormal Lab Results - Last 24 Hours (Table) 01/10/18 01/10/18 01/10/18 Range/Units 09:23 09:23 11:34 RBC 2.88 L (3.80-5.40) m/uL Hgb 8.7 L (11.4-16.0) gm/dL Hct 28.5 L (34.0-46.0) % MCHC 30.7 L (31.0-37.0) g/dL RDW 16.1 H (11.5-15.5) % Plt Count 119 L (150-450) k/uL Potassium 5.6 H (3.5-5.1) mmol/L BUN 29 H (7-17) mg/dL Creatinine 2.45 H (0.52-1.04) mg/dL POC Glucose (mg/dL) 67 L (75-99) mg/dL AST 43 H (14-36) U/L Albumin 3.3 L (3.5-5.0) g/dL 01/10/18 01/10/18 01/10/18 Range/Units 12:21 16:17 17:12 RBC (3.80-5.40) m/uL Hgb (11.4-16.0) gm/dL Hct (34.0-46.0) % MCHC (31.0-37.0) g/dL RDW (11.5-15.5) % Plt Count (150-450) k/uL Potassium (3.5-5.1) mmol/L BUN (7-17) mg/dL Creatinine (0.52-1.04) mg/dL POC Glucose (mg/dL) 72 L 114 H 108 H (75-99) mg/dL AST (14-36) U/L Albumin (3.5-5.0) g/dL 01/10/18 01/11/18 01/11/18 Range/Units 21:37 02:09 06:58 RBC (3.80-5.40) m/uL Hgb (11.4-16.0) gm/dL Hct (34.0-46.0) % MCHC (31.0-37.0) g/dL RDW (11.5-15.5) % Plt Count (150-450) k/uL Potassium (3.5-5.1) mmol/L BUN (7-17) mg/dL Creatinine (0.52-1.04) mg/dL POC Glucose (mg/dL) 130 H 116 H 115 H (75-99) mg/dL AST (14-36) U/L Albumin (3.5-5.0) g/dL Microbiology - Last 24 Hours (Table) 01/08/18 19:44 Blood Culture - Preliminary Blood No Growth after 48 hours Assessment and Plan Plan: Assessment: 1. Acute kidney injury mostly prerenal secondary to intravascular volume depletion from diuretics and BINDU inhibitor use. She was also receiving IV vancomycin but no level is available. Rule out urinary retention. Kidney ultrasound from earlier this month revealed no evidence of hydronephrosis with normal sized kidneys. 2. Chronic kidney disease stage III with baseline creatinine in the range of 1.2-1.4 secondary to diabetic kidney disease. 3. Systolic CHF with ejection fraction of 45-50% with moderate tricuspid regurgitation. 4. Moderate to severe pulmonary hypertension. 5. Left lower extremity cellulitis maintained on IV Kefzol. 6. Insulin-dependent diabetes mellitus. 7. Hypertension with chronic kidney disease. Blood pressure better but remains on the lower side. 8. History of breast cancer status post right mastectomy and chemotherapy. 9. Anemia of chronic kidney disease. Iron replete. 10. Mild hyperkalemia. This was a hemolyzed sample. Recheck was in the normal range. Plan: Discontinued lisinopril and hydrochlorothiazide. Status post 500 mL bolus of normal saline on January 10. Encourage oral intake. Avoid nephrotoxins. Add Aranesp. I advised the patient to avoid NSAIDs. Patient states she takes Aleve as needed for pain. Follow-up morning labs.
[2018-01-11] MEDS ORDERED: DARBEPOETIN ALFA 40 MCG/0.4 ML SYRINGE SQ SCH (09:00)
[2018-01-11] MEDS: CYCLOBENZAPRINE 10 MG TAB PO SCH ×4 (10:04→23:05)
[2018-01-11] MEDS: LORazepam 1 MG TAB PO SCH ×4 (10:04→23:59)
[2018-01-11 10:09] LABS: Calcium 8.7 mg/dL (8.4-10.2); Magnesium 1.9 mg/dL (1.6-2.3); Potassium 5.1 mmol/L (3.5-5.1)
[2018-01-11 11:16] LABS: Glucose,Whole Blood 108 mg/dL (75-99)
--- NOTE | 2018-01-11 11:53 | P.PN ---
Subjective Patient resting in bed complaining of constipation Colace ordered. Patient is been seen by pulmonology infectious disease and nephrology. Creatinine continues to rise. Patient continues to complain of weakness Objective - Vital Signs Vital signs: Vital Signs Temp 98 F 01/11/18 03:58 Pulse 90 01/11/18 03:58 Resp 17 01/11/18 03:58 BP 98/66 01/11/18 03:58 Pulse Ox 94 L 01/11/18 03:58 Intake & Output 01/10/18 01/11/18 01/11/18 18:59 06:59 18:59 Intake Total 350 Balance 350 Weight 142.5 kg 148 kg Intake: Intake, IV Titration 110 Amount Sodium Chloride 0.9% 1, 110 000 ml @ 20 mls/hr IV . Q24H [facility] Rx#:[id number] Oral 240 Other: Voiding Method Bedside Commode Bedside Commode Bedside Commode Diaper Diaper Incontinent Incontinent Incontinent # Voids 1 1 - Constitutional General appearance: Present: morbidly obese - EENT Eyes: Present: PERRLA Ears: bilateral: normal - Neck Neck: Present: normal ROM - Respiratory Respiratory: bilateral: CTA - Cardiovascular Rhythm: regular - Peripheral edema leg Peripheral Edema: bilateral: 3+ - Gastrointestinal General gastrointestinal: Present: soft - Integumentary Integumentary: Present: normal - Neurologic Neurologic: Present: CNII-XII intact - Musculoskeletal Musculoskeletal: Present: generalized weakness - Psychiatric Psychiatric: Present: A&O x's 3, appropriate affect, intact judgment & insight - Labs CBC & Chem 7: 01/10/18 09:23 01/11/18 09:24 Labs: Abnormal Lab Results - Last 24 Hours (Table) 01/10/18 01/10/18 01/10/18 Range/Units 12:21 16:17 17:12 Carbon Dioxide (22-30) mmol/L BUN (7-17) mg/dL Creatinine (0.52-1.04) mg/dL Glucose (74-99) mg/dL POC Glucose (mg/dL) 72 L 114 H 108 H (75-99) mg/dL 01/10/18 01/11/18 01/11/18 Range/Units 21:37 02:09 06:58 Carbon Dioxide (22-30) mmol/L BUN (7-17) mg/dL Creatinine (0.52-1.04) mg/dL Glucose (74-99) mg/dL POC Glucose (mg/dL) 130 H 116 H 115 H (75-99) mg/dL 01/11/18 01/11/18 Range/Units 09:24 11:15 Carbon Dioxide 21 L (22-30) mmol/L BUN 32 H (7-17) mg/dL Creatinine 2.82 H (0.52-1.04) mg/dL Glucose 100 H (74-99) mg/dL POC Glucose (mg/dL) 108 H (75-99) mg/dL Microbiology - Last 24 Hours (Table) 01/08/18 19:44 Blood Culture - Preliminary Blood No Growth after 48 hours Assessment and Plan Plan: Assessment Left leg cellulitis with sepsis Weakness Pulmonary hypertension with right ventricular enlargement Exertional dyspnea History of COPD Diabetes type 2 Fibromyalgia Hyperlipidemia History of SVT Rheumatoid arthritis History of breast cancer with mastectomy 2012 Hypertension seizure disorder Morbid obesity Acute on chronic renal failure stage III Plan Continue consultation with pulmonology cardiology infectious disease and nephrology
--- NOTE | 2018-01-11 13:22 | P.PN ---
Subjective Progress Note Date: 01/11/18 Principal diagnosis: Left lower extremity cellulitis, exacerbation of diastolic heart failure This is a very pleasant 67-year-old female patient who follows with Dr. Handy Delcid is her primary care physician. She has a history of diabetes mellitus, fibromyalgia, hyperlipidemia, hypertension, rheumatoid arthritis, seizure disorder, SVT, right breast cancer status post mastectomy, anxiety/depression, pulmonary hypertension. She also has a history of chronic obstructive pulmonary disease and has chronic and ongoing tobacco dependence. She is on Advair. She was recently discharged from here after being admitted for septic shock secondary to urinary tract infection. She was seen by our group in the intensive care unit for her sepsis. She presented here to the hospital yesterday after having increased swelling of the left lower extremity and shortness of breath. Chest x-ray shows evidence of cardiomegaly but no acute cardiopulmonary process. Doppler of the left lower extremity was negative for DVT. She is seen today in consultation on the regular medical floor. She is currently awake and alert in no acute distress. She is resting comfortably in bed. She denies any shortness of breath, cough or congestion. She is maintaining O2 saturations in the mid 90s on room air. She's been afebrile. Hemodynamically stable. Blood cultures reveal no growth to date. White count 4.3. Hemoglobin 8.7. Creatinine 2.45. ProBNP 8250. The patient is seen again today 01/11/2018 in follow-up on the regular medical floor. She is awake and alert in no acute distress. She is maintaining good O2 saturations in the 90s on room air. She denies any worsening shortness of breath, cough or congestion. No chills or night sweats. She remains on Symbicort. Blood culture reveals no growth. Objective - Vital Signs Vital signs: Vital Signs Temp 98.1 F 01/11/18 12:26 Pulse 84 01/11/18 12:26 Resp 16 01/11/18 12:26 BP 112/58 01/11/18 12:26 Pulse Ox 97 01/11/18 12:26 Intake & Output 01/10/18 01/11/18 01/11/18 18:59 06:59 18:59 Intake Total 350 Balance 350 Weight 142.5 kg 148 kg Intake: Intake, IV Titration 110 Amount Sodium Chloride 0.9% 1, 110 000 ml @ 20 mls/hr IV . Q24H [facility] Rx#:[id number] Oral 240 Other: Voiding Method Bedside Commode Bedside Commode Bedside Commode Diaper Diaper Incontinent Incontinent # Voids 1 1 - Exam GENERAL EXAM: Morbidly obese. Alert, comfortable in no apparent distress. On room air. HEAD: Normocephalic. EYES: Normal reaction of pupils, equal size. NOSE: Clear with pink turbinates. THROAT: No erythema or exudates. NECK: No masses, no JVD. CHEST: No chest wall deformity. LUNGS: Equal air entry with no crackles, wheeze, rhonchi or dullness. CVS: S1 and S2 normal with no audible murmur, regular rhythm. ABDOMEN: No hepatosplenomegaly, normal bowel sounds, no guarding or rigidity. SPINE: No scoliosis or deformity SKIN: Cellulitis of the left lower extremity. CENTRAL NERVOUS SYSTEM: No focal deficits, tone is normal in all 4 extremities. EXTREMITIES: There is 1-2+ peripheral edema. Patric wrap to the left lower extremity. No clubbing, no cyanosis. Peripheral pulses are intact. - Labs CBC & Chem 7: 01/10/18 09:23 01/11/18 09:24 Labs: Abnormal Lab Results - Last 24 Hours (Table) 01/10/18 01/10/18 01/10/18 Range/Units 16:17 17:12 21:37 Carbon Dioxide (22-30) mmol/L BUN (7-17) mg/dL Creatinine (0.52-1.04) mg/dL Glucose (74-99) mg/dL POC Glucose (mg/dL) 114 H 108 H 130 H (75-99) mg/dL 01/11/18 01/11/18 01/11/18 Range/Units 02:09 06:58 09:24 Carbon Dioxide 21 L (22-30) mmol/L BUN 32 H (7-17) mg/dL Creatinine 2.82 H (0.52-1.04) mg/dL Glucose 100 H (74-99) mg/dL POC Glucose (mg/dL) 116 H 115 H (75-99) mg/dL 01/11/18 Range/Units 11:15 Carbon Dioxide (22-30) mmol/L BUN (7-17) mg/dL Creatinine (0.52-1.04) mg/dL Glucose (74-99) mg/dL POC Glucose (mg/dL) 108 H (75-99) mg/dL Microbiology - Last 24 Hours (Table) 01/08/18 19:44 Blood Culture - Preliminary Blood No Growth after 48 hours Assessment and Plan Assessment: Impression: #1 Left lower extremity cellulitis. Been treated with Silvadene. #2 Acute exacerbation of diastolic congestive heart failure. #3 Moderate to severe pulmonary hypertension with RVSP 69 mmHg. #4 Morbid obesity. #5 Chronic obstructive pulmonary disease. #6 Chronic and ongoing tobacco dependence. #7 Acute on chronic renal failure. #8 Recent admission for septic shock secondary to urinary tract infection. #9 History of supraventricular tachycardia. #10 Diabetes mellitus, type II. #11 Diabetic neuropathy. #12 Hypertension. #13 Hyperlipidemia. #14 History of seizure disorder. #15 History of breast cancer status post right mastectomy. Currently on Arimidex. #16 Chronic anemia. Plan: The patient was seen and evaluated by Dr. Leahy. She is currently stable from the pulmonary standpoint. Maintaining good O2 saturations in the 90s on room air. We'll continue with her Symbicort for now. We will see the patient on as- needed basis. I, the cosigning physician, performed a history & physical examination of the patient. Lungs sounds are clear. Maintaining good O2 saturations in the 90s on room air. I discussed the assessment and plan of care with my nurse practitioner, Dodie Carvalho. I attest to the above note as dictated by her.
[2018-01-11] MEDS: SODIUM BICARBONATE TAB 650 MG TAB PO SCH ×2 (13:36→23:05)
--- NOTE | 2018-01-11 15:53 | P.PN ---
Subjective This is a pleasant 67-year-old female past medical history significant for COPD, diabetes mellitus, hypertension, dyslipidemia, seizure disorder, breast cancer s/p mastectomy and chronic nicotine dependence. She denies history of coronary artery disease and doesn't follow with a scientific process operator for any reason. We have been asked to see her in consultation for exertional shortness of breath. She states for the past week or so she has been feeling increasing dyspneic and fatigued. She was recently admitted here with urosepsis and evaluated at that time in the ICU. Echocardiogram obtained 2017 indicates mildly impaired LV systolic function with EF 45-50%, mild aortic stenosis with mean gradient 14.26 mmHg, moderate TR and moderate to severe pulmonary hypertension with RVSP 69.22 mmHg. At that time she was started on aspirin and atorvastatin. Beta blockers were not started during that admission due to persistent hypotension. She was given a one-time dose of IV Lasix yesterday. Repeat kidney function today shows creatinine increased to 2.82. Sodium 137, potassium 5.1, magnesium 1.9. Blood pressure 112/58 heart rate 84 afebrile maintaining oxygen saturation on room air. She is seen and examined resting comfortably in bed in no acute distress. She denies symptoms of chest discomfort, dizziness or palpitations. She continues to complain of mild exertional shortness of breath. She is not really getting up and moving much. She states she does go from the bedside commode reasonably well without significant breathing concerns, although she feels overall very weak. Lisinopril/HCTZ has been discontinued by nephrology. GENERAL: This is a 67-year-old female in no apparent distress at the time of my examination. Morbidly obese. HEENT: Head is atraumatic, normocephalic. Pupils are equal, round. Sclerae anicteric. Conjunctivae are clear. Mucous membranes of the mouth are moist. Neck is supple. There is no jugular venous distention. No carotid bruit is heard. LUNGS: Clear to auscultation no wheezes, rales or rhonchi. No chest wall tenderness is noted on palpation or with deep breathing. Diminished bilaterally. HEART: Regular rate and rhythm without murmurs, rubs or gallops. S1 and S2 heard. EXTREMITIES: Bilateral leg wrap with анна bandage. No redness on visualized skin. ASSESSMENT Left lower extremity cellulitis Mild exacerbation of diastolic heart failure due to right sided heart failure Pulmonary hypertension Tricuspid regurgitation Hypertension Dyslipidemia COPD Diabetes mellitus Chronic kidney disease, GFR 20 Hyperkalemia Chronic anemia PLAN Hemodynamically stable from a cardiac perspective. Ongoing medical management of weakness and lower extremity cellulitis. We will continue to see the patient as needed. Please feel free to call with further questions or concerns. Follow up with Dr. Woody upon discharge. Nurse Practitioner note has been reviewed, I agree with a documented findings and plan of care. Patient was seen and examined. Objective - Vital Signs Vital signs: Vital Signs Temp 98.1 F 01/11/18 12:26 Pulse 84 01/11/18 12:26 Resp 16 01/11/18 12:26 BP 112/58 01/11/18 12:26 Pulse Ox 97 01/11/18 12:26 Intake & Output 01/10/18 01/11/18 01/11/18 18:59 06:59 18:59 Intake Total 350 Balance 350 Weight 142.5 kg 148 kg Intake: Intake, IV Titration 110 Amount Sodium Chloride 0.9% 1, 110 000 ml @ 20 mls/hr IV . Q24H [facility] Rx#:[id number] Oral 240 Other: Voiding Method Bedside Commode Bedside Commode Bedside Commode Diaper Diaper Incontinent Incontinent # Voids 1 1 - Labs CBC & Chem 7: 01/10/18 09:23 01/11/18 09:24 Labs: Abnormal Lab Results - Last 24 Hours (Table) 01/10/18 01/10/18 01/10/18 Range/Units 16:17 17:12 21:37 Carbon Dioxide (22-30) mmol/L BUN (7-17) mg/dL Creatinine (0.52-1.04) mg/dL Glucose (74-99) mg/dL POC Glucose (mg/dL) 114 H 108 H 130 H (75-99) mg/dL 01/11/18 01/11/18 01/11/18 Range/Units 02:09 06:58 09:24 Carbon Dioxide 21 L (22-30) mmol/L BUN 32 H (7-17) mg/dL Creatinine 2.82 H (0.52-1.04) mg/dL Glucose 100 H (74-99) mg/dL POC Glucose (mg/dL) 116 H 115 H (75-99) mg/dL 01/11/18 Range/Units 11:15 Carbon Dioxide (22-30) mmol/L BUN (7-17) mg/dL Creatinine (0.52-1.04) mg/dL Glucose (74-99) mg/dL POC Glucose (mg/dL) 108 H (75-99) mg/dL Microbiology - Last 24 Hours (Table) 01/08/18 19:44 Blood Culture - Preliminary Blood No Growth after 48 hours
[2018-01-11 16:59] LABS: Glucose,Whole Blood 117 mg/dL (75-99)
[2018-01-11 20:36] LABS: Glucose,Whole Blood 138 mg/dL (75-99)
[2018-01-11] MEDS: INSULIN DETEMIR 100 UNIT/ML 10 ML VIAL SQ SCH (23:05)
--- NOTE | 2018-01-11 23:51 | P.PN ---
Subjective Progress Note Date: 01/11/18 67-year-old female who has multiple medical troubles including underlying cardiomyopathy was recently hospitalized with a bout of E. coli sepsis from urinary tract infection. The patient relates she completed her course of antibiotic therapy approximately a week ago and has continued to have increasing difficulties. She was to go to her physician's office today for an evaluation however she was so weak she was unable to get in the car. Because of this EMS was called and she was brought to emergency center where she'll find evidence of significant weakness. Generalized malaise. Evidence of pancytopenia with concerns to sepsis and cellulitis to the left lower extremity and she was admitted and infectious diseases consultation was requested. The patient relates that the leg especially at the foot is tender it is worsened over the last week. She has no trauma to the area. She has obesity and chronic lower extremity edema. 01/11/2018 patient is feeling slightly better. Still with pain and swelling to her left leg. She did have the wrap removed from the right leg she found it uncomfortable. She denying fevers or chills still feels poorly overall. Temperature today 98 1. Objective - Vital Signs Vital signs: Vital Signs Temp 98.2 F 01/11/18 21:00 Pulse 89 01/11/18 21:00 Resp 17 01/11/18 21:00 BP 98/50 01/11/18 21:00 Pulse Ox 94 L 01/11/18 21:00 Intake & Output 01/11/18 01/11/18 01/12/18 06:59 18:59 06:59 Intake Total 350 240 Balance 350 240 Weight 148 kg Intake: Intake, IV Titration 110 Amount Sodium Chloride 0.9% 1, 110 000 ml @ 20 mls/hr IV . Q24H [facility] Rx#:[id number] Oral 240 240 Other: Voiding Method Bedside Commode Bedside Commode Bedside Commode Diaper Incontinent # Voids 1 2 - Exam 67-year-old woman with significant obesity uncomfortable overall with fatigue and malaise HEENT: Anicteric conjunctiva are pink and moist nasal mucosa grossly intact without significant lesions, there is no thrush. Neck: The neck is supple without significant lymphadenopathy or thyromegaly. Lungs: They're symmetrical air entry, few expiratory wheezes are heard no amador bronchial sounds no dullness or egophony was noted Heart: Regular rate and rhythm with an audible S1-S2, no S3 loud S4. There is no significant murmur click or rub, PMI was nondisplaced. Abdomen: Obese, Positive bowel sounds soft and nontender without palpable masses or organomegaly. There was no guarding or rebound. Extremities: The upper extremities have excellent pulses they are symmetric, no significant petechiae or telangiectasia. No splinter hemorrhages were noted. Lower extremities have chronic lipedema and venous stasis changes present evidence of a dense erythema on the dorsum of the left foot and some erythema also on pretibial area of the left leg. Right leg is without acute lesions, nail care is poor Neurologically she is awake alert oriented to person place and time exhibits no new acute gross focal sensory motor deficits but does have neuropathy to bilateral feet. - Labs CBC & Chem 7: 01/10/18 09:23 01/11/18 09:24 Labs: Abnormal Lab Results - Last 24 Hours (Table) 01/11/18 01/11/18 01/11/18 Range/Units 02:09 06:58 09:24 Carbon Dioxide 21 L (22-30) mmol/L BUN 32 H (7-17) mg/dL Creatinine 2.82 H (0.52-1.04) mg/dL Glucose 100 H (74-99) mg/dL POC Glucose (mg/dL) 116 H 115 H (75-99) mg/dL 01/11/18 01/11/18 01/11/18 Range/Units 11:15 16:58 20:34 Carbon Dioxide (22-30) mmol/L BUN (7-17) mg/dL Creatinine (0.52-1.04) mg/dL Glucose (74-99) mg/dL POC Glucose (mg/dL) 108 H 117 H 138 H (75-99) mg/dL Microbiology - Last 24 Hours (Table) 01/08/18 19:44 Blood Culture - Preliminary Blood No Growth after 72 hours Laboratory Results WBC 4.3 k/uL (3.8-10.6) 01/10/18 09:23 RBC 2.88 m/uL (3.80-5.40) L 01/10/18 09:23 Hgb 8.7 gm/dL (11.4-16.0) L 01/10/18 09:23 Hct 28.5 % (34.0-46.0) L 01/10/18 09:23 MCV 99.0 fL (80.0-100.0) 01/10/18 09:23 MCH 30.4 pg (25.0-35.0) 01/10/18 09:23 MCHC 30.7 g/dL (31.0-37.0) L 01/10/18 09:23 RDW 16.1 % (11.5-15.5) H 01/10/18 09:23 Plt Count 119 k/uL (150-450) L 01/10/18 09:23 Neutrophils % 52 % 01/10/18 09:23 Lymphocytes % 34 % 01/10/18 09:23 Monocytes % 7 % 01/10/18 09:23 Eosinophils % 4 % 01/10/18 09:23 Basophils % 1 % 01/10/18 09:23 Neutrophils # 2.2 k/uL (1.3-7.7) 01/10/18 09:23 Lymphocytes # 1.5 k/uL (1.0-4.8) 01/10/18 09:23 Monocytes # 0.3 k/uL (0-1.0) 01/10/18 09:23 Eosinophils # 0.2 k/uL (0-0.7) 01/10/18 09:23 Basophils # 0.0 k/uL (0-0.2) 01/10/18 09:23 Hypochromasia Marked 01/10/18 09:23 Anisocytosis Slight 01/10/18 09:23 Macrocytosis Slight 01/10/18 09:23 PT 10.9 sec (9.0-12.0) 01/08/18 19:44 INR 1.1 (<1.2) 01/08/18 19:44 APTT 22.9 sec (22.0-30.0) 01/08/18 19:44 Sodium 137 mmol/L (137-145) 01/11/18 09:24 Potassium 5.1 mmol/L (3.5-5.1) 01/11/18 09:24 Chloride 106 mmol/L (98-107) 01/11/18 09:24 Carbon Dioxide 21 mmol/L (22-30) L 01/11/18 09:24 Anion Gap 10 mmol/L 01/11/18 09:24 BUN 32 mg/dL (7-17) H 01/11/18 09:24 Creatinine 2.82 mg/dL (0.52-1.04) H 01/11/18 09:24 Est GFR (CKD-EPI)AfAm 20 (>60 ml/min/1.73 sqM) 01/11/18 09:24 Est GFR (CKD-EPI)NonAf 17 (>60 ml/min/1.73 sqM) 01/11/18 09:24 Glucose 100 mg/dL (74-99) H 01/11/18 09:24 POC Glucose (mg/dL) 138 mg/dL (75-99) H 01/11/18 20:34 POC Glu Associate Data Scientist ID Vidhya Ricci 01/11/18 20:34 Calcium 8.7 mg/dL (8.4-10.2) 01/11/18 09:24 Magnesium 1.9 mg/dL (1.6-2.3) 01/11/18 09:24 Iron 83 ug/dL (50-170) 01/10/18 13:34 TIBC 279 ug/dL (228-460) 01/10/18 13:34 Iron Saturation 29.75 (12.00-45.00) 01/10/18 13:34 Ferritin 233.0 ng/mL (10.0-291.0) 01/10/18 13:34 Total Bilirubin 1.1 mg/dL (0.2-1.3) 01/10/18 09:23 AST 43 U/L (14-36) H 01/10/18 09:23 ALT 21 U/L (9-52) 01/10/18 09:23 Alkaline Phosphatase 88 U/L (38-126) 01/10/18 09:23 Total Creatine Kinase 59 U/L (30-135) 01/08/18 19:44 CK-MB (CK-2) 0.9 ng/mL (0.0-2.4) 01/08/18 19:44 CK-MB (CK-2) Rel Index 1.5 01/08/18 19:44 Troponin I 0.014 ng/mL (0.000-0.034) 01/08/18 19:44 NT-Pro-B Natriuret Pep 8250 pg/mL 01/10/18 09:23 Total Protein 6.8 g/dL (6.3-8.2) 01/10/18 09:23 Albumin 3.3 g/dL (3.5-5.0) L 01/10/18 09:23 Urine Color Yellow 01/08/18 21:55 Urine Appearance Clear (Clear) 01/08/18 21:55 Urine pH 6.0 (5.0-8.0) 01/08/18 21:55 Ur Specific [place] 1.012 (1.001-1.035) 01/08/18 21:55 Urine Protein 1+ (Negative) H 01/08/18 21:55 Urine Glucose (UA) Negative (Negative) 01/08/18 21: Urine Ketones Negative (Negative) 01/08/18 21: Urine Blood Negative (Negative) 01/08/18 21: Urine Nitrite Negative (Negative) 01/08/18 21: Urine Bilirubin Negative (Negative) 01/08/18 21: Urine Urobilinogen <2.0 mg/dL (<2.0) 01/08/18 21:55 Ur Leukocyte Esterase Small (Negative) H 01/08/18 21:55 Urine RBC 1 /hpf (0-5) 01/08/18 21:55 Urine WBC 22 /hpf (0-5) H 01/08/18 21:55 Granular Casts 3 /lpf (0) 01/08/18 21:55 Urine Mucus Rare /hpf (None) H 01/08/18 21:55 Urine Yeast (Budding) Few /hpf (None) H 01/08/18 21:55 Microbiology 01/08/18 19:44 Blood Blood Culture - Preliminary No Growth after 72 hours Assessment and Plan (1) Left leg cellulitis Narrative/Plan: 67-year-old woman with obesity presents to hospital with generalized malaise find evidence of cellulitis to the left lower extremity foot appears to be underlying sepsis with elevated lactic acid is 2.8. Antibiotic therapy will be initiated with Ancef at this time, she relates she's taken Keflex in the past with no problems. The patient has had a recent hospitalization with E. coli urinary tract infection but appears to have no acute UTI or pneumonia at this time The patient does have evidence of pancytopenia. She does have underlying multiple medical troubles. She is on Arimidex for her history of right-sided breast carcinoma. However she's had the change of her status with the pancytopenia and may need further oncology/hematology evaluation. Cultures are process which will further help direct therapy. 01/11/2018 patient is feeling slightly better today. Not having fever. Still having some pain and discomfort in left leg. This seemed to be responding well to the Silvadene wrap and antibiotic therapy. Continues to have pancytopenia. Continues to have elevated creatinine at 2.82. Have requested the staff to rewrap the left leg with a Silvadene wrap. Current Visit: Yes Status: Acute Code(s): L03.116 - CELLULITIS OF LEFT LOWER LIMB SNOMED Code(s): 558618333 (2) Hyperglycemia Current Visit: No Status: Acute Code(s): R73.9 - HYPERGLYCEMIA, UNSPECIFIED SNOMED Code(s): 33600418 (3) Obesity Current Visit: Yes Status: Acute Code(s): E66.9 - OBESITY, UNSPECIFIED SNOMED Code(s): 149798485
[2018-01-12] MEDS: SODIUM CHLORIDE 0.9% 1,000 ML IV SCH (00:01)
[2018-01-12 07:06] LABS: Glucose,Whole Blood 112 mg/dL (75-99)
[2018-01-12] MEDS: INSULIN ASPART 100 UNIT/ML 1 ML 10 ML VIAL SQ SCH ×4 (07:39→21:36)
[2018-01-12] MEDS: MORPHINE SULFATE 4 MG/ML SYRINGE IV PRN ×2 (07:41→20:00)
[2018-01-12] MEDS: SYMBICORT 80-4.5 MCG INHALER INHALATION SCH ×2 (07:55→20:34)
[2018-01-12 08:59] LABS: Calcium 8.7 mg/dL (8.4-10.2); Magnesium 1.9 mg/dL (1.6-2.3); Potassium 5.5 mmol/L (3.5-5.1)
[2018-01-12] MEDS ORDERED: DEXTROSE 50%-WATER 50 ML SYRINGE IVP STA (09:14)
[2018-01-12] MEDS ORDERED: SODIUM BICARB 8.4% 50 ML SYR (1 MEQ/ML) IV ONE (09:14)
[2018-01-12] MEDS ORDERED: INSULIN REGULAR 100 UNIT/ML VIAL IV ONE (09:14)
--- NOTE | 2018-01-12 09:15 | P.PN ---
Subjective Patient is seen in follow-up for acute kidney injury on chronic kidney disease. Patient has chronic kidney disease stage III with baseline creatinine in the range of 1.2-1.4 secondary to diabetic kidney disease. Patient's currently being treated for lower extremity cellulitis. On January 02, she became quite hypotensive and lisinopril and hydrochlorothiazide were discontinued. She also received a 500 mL bolus of normal saline. Currently sitting up in bed. She is having breakfast. She has been waiting. Creatinine was 2.82 yesterday and is 2.68 today. Patient has history of systolic CHF with ejection fraction of 45-50% with moderate tricuspid regurgitation and moderate to severe pulmonary hypertension. Vital signs are stable. General: The patient appeared well nourished and normally developed. HEENT: Head exam is unremarkable. Neck is without jugular venous distension. LUNGS: Lungs are clear to auscultation and percussion. Breath sounds decreased. HEART: Rate and Rhythm are regular. First and second heart sounds normal. No murmurs, rubs or gallops. ABDOMEN: Abdominal exam reveals normal bowel sounds. Non-tender and non- distended. No evidence of peritonitis. EXTREMITITES: 1+ edema. Lower extremities wrapped. Objective - Vital Signs Vital signs: Vital Signs Temp 97.7 F 01/12/18 04:56 Pulse 87 01/12/18 04:56 Resp 17 01/12/18 04:56 BP 87/58 01/12/18 04:56 Pulse Ox 93 L 01/12/18 04:56 Intake & Output 01/11/18 01/12/18 01/12/18 18:59 06:59 18:59 Intake Total 960 Output Total 150 Balance 810 Intake: Oral 960 Output: Urine 150 Other: Voiding Method Bedside Commode Bedside Commode Bedside Commode # Voids 2 1 - Labs CBC & Chem 7: 01/10/18 09:23 01/12/18 08:06 Labs: Abnormal Lab Results - Last 24 Hours (Table) 01/11/18 01/11/18 01/11/18 Range/Units 09:24 11:15 16:58 Sodium (137-145) mmol/L Potassium (3.5-5.1) mmol/L Carbon Dioxide 21 L (22-30) mmol/L BUN 32 H (7-17) mg/dL Creatinine 2.82 H (0.52-1.04) mg/dL Glucose 100 H (74-99) mg/dL POC Glucose (mg/dL) 108 H 117 H (75-99) mg/dL 01/11/18 01/12/18 01/12/18 Range/Units 20:34 07:04 08:06 Sodium 134 L (137-145) mmol/L Potassium 5.5 H (3.5-5.1) mmol/L Carbon Dioxide 21 L (22-30) mmol/L BUN 35 H (7-17) mg/dL Creatinine 2.68 H (0.52-1.04) mg/dL Glucose (74-99) mg/dL POC Glucose (mg/dL) 138 H 112 H (75-99) mg/dL Microbiology - Last 24 Hours (Table) 01/08/18 19:44 Blood Culture - Preliminary Blood No Growth after 72 hours Assessment and Plan Plan: Assessment: 1. Acute kidney injury mostly prerenal secondary to intravascular volume depletion from diuretics and BINDU inhibitor use. She was also receiving IV vancomycin but no level is available. Rule out urinary retention. Kidney ultrasound from earlier this month revealed no evidence of hydronephrosis with normal sized kidneys. 2. Chronic kidney disease stage III with baseline creatinine in the range of 1.2-1.4 secondary to diabetic kidney disease. 3. Systolic CHF with ejection fraction of 45-50% with moderate tricuspid regurgitation. 4. Moderate to severe pulmonary hypertension. 5. Left lower extremity cellulitis maintained on IV Kefzol. 6. Insulin-dependent diabetes mellitus. 7. Hypertension with chronic kidney disease. Blood pressure better but remains on the lower side. 8. History of breast cancer status post right mastectomy and chemotherapy. 9. Anemia of chronic kidney disease. Iron replete. 10. Hyperkalemia secondary to acute kidney injury and metabolic acidosis. Plan: Discontinued lisinopril and hydrochlorothiazide. Status post 500 mL bolus of normal saline on January 10. Encourage oral intake. Avoid nephrotoxins. Maintain Aranesp. I advised the patient to avoid NSAIDs. Patient states she takes Aleve as needed for pain. I will give her 2 amps of bicarb IV push along with 10 units of IV insulin with an amp of D50 now. Low potassium diet. Repeat potassium level this afternoon.
[2018-01-12] MEDS: ANASTROZOLE 1 MG TAB PO SCH (10:07)
[2018-01-12] MEDS: ASPIRIN 81 MG PO SCH (10:08)
[2018-01-12] MEDS: ATORVASTATIN 40 MG TAB PO SCH (10:08)
[2018-01-12] MEDS: CYCLOBENZAPRINE 10 MG TAB PO SCH ×3 (10:08→22:48)
[2018-01-12] MEDS: diphenhydrAMINE 50 MG CAP PO SCH ×3 (10:09→22:48)
[2018-01-12] MEDS: SODIUM BICARBONATE TAB 650 MG TAB PO SCH ×2 (10:09→21:41)
[2018-01-12] MEDS: LORazepam 1 MG TAB PO SCH ×3 (10:10→22:48)
[2018-01-12] MEDS: ceFAZolin IN SWFI 2 GM/20 ML SYRINGE IVP SCH ×2 (10:14→21:41)
[2018-01-12] MEDS: HYDROcodone/APAP 7.5-325MG 1 EACH TAB PO SCH ×3 (10:23→22:48)
[2018-01-12 11:33] LABS: Glucose,Whole Blood 263 mg/dL (75-99)
[2018-01-12 17:05] LABS: Glucose,Whole Blood 121 mg/dL (75-99)
--- NOTE | 2018-01-12 18:26 | PN ---
PROGRESS NOTE I am covering for Dr. Handy Delcid. DATE OF SERVICE: 01/12/2018 This 67-year-old woman who was admitted with left leg cellulitis also had worsening renal failure. Patient was also found to have pulmonary hypertension, exertional dyspnea, in addition to multiple other medical issues. The patient's most recent chest x-ray did not show any acute abnormality. Multiple consultants, including Cardiology, Nephrology and Infectious Disease, are following the patient closely. Mild exacerbation of CHF is suspected. Past medical history reviewed. REVIEW OF SYSTEMS: CARDIOVASCULAR SYSTEM: No angina, palpitations. RESPIRATORY SYSTEM: As mentioned earlier. GI: No nausea, vomiting. : No dysuria or retention. NERVOUS SYSTEM: No numbness, weakness. ALLERGY/IMMUNOLOGY: No asthma or hayfever. MUSCULOSKELETAL: As mentioned earlier. HEMATOLOGY/ONCOLOGY: No history of anemia. ENDOCRINE: No history of diabetes mellitus. CONSTITUTIONAL: As mentioned earlier. HEMATOLOGY: Negative. RHEUMATOLOGY: Negative. PSYCHIATRY: As mentioned earlier. PHYSICAL EXAMINATION: Patient alert and oriented x3. Pulse is 88, blood pressure 114/59, respirations 16, temperature 98.2, pulse ox 94% on room air. HEENT: Conjunctivae normal. Oral mucosa moist. NECK: No jugular venous distention. No carotid bruit. No lymph node enlargement. CARDIOVASCULAR SYSTEM: S1, S2 muffled. RESPIRATORY SYSTEM: Breath sounds diminished at the bases. A few scattered rhonchi. No crackles. ABDOMEN: Soft, obese, non-tender. LEGS: No edema. No swelling. NERVOUS SYSTEM: Diffusely weak. LABS: Sodium 134, potassium 5.5, creatinine 2.68. ASSESSMENT: 1. Left leg cellulitis with sepsis, present on admission. 2. Weakness. 3. Shortness of breath with mild exertion, suspicious for congestive heart failure, acute exacerbation, with acute on chronic diastolic dysfunction. 4. Pulmonary hypertension. 5. Exertional dyspnea. 6. History of chronic obstructive pulmonary disease. 7. Diabetes mellitus, type 2. 8. Fibromyalgia. 9. Hyperlipidemia. 10.History of supraventricular tachycardia. 11.Rheumatoid arthritis. 12.History of breast cancer with mastectomy. 13.Hypertension. 14.Seizure disorder. 15.Morbid obesity. 16.Acute on chronic renal failure, stage III. RECOMMENDATIONS AND DISCUSSION: I recommend to continue current medication, continue with the monitoring, symptomatic treatment. Otherwise at this time I recommend continuing with broad-spectrum IV antibiotics. Monitor creatinine closely. Avoid nephrotoxic medications. Otherwise, will closely monitor. PT/OT evaluation, possible ECF rehab. Guarded prognosis. Further recommendations to follow. Monitor blood sugars closely. See orders for further details. MMODL / IJN: [id number] /
[2018-01-12 20:46] LABS: Glucose,Whole Blood 145 mg/dL (75-99)
[2018-01-12] MEDS: INSULIN DETEMIR 100 UNIT/ML 10 ML VIAL SQ SCH (21:41)
[2018-01-13] MEDS: MORPHINE SULFATE 4 MG/ML SYRINGE IV PRN (00:07)
[2018-01-13] MEDS: SODIUM CHLORIDE 0.9% 1,000 ML IV SCH ×2 (00:46→23:01)
[2018-01-13 07:24] LABS: Glucose,Whole Blood 106 mg/dL (75-99)
[2018-01-13] MEDS: INSULIN ASPART 100 UNIT/ML 1 ML 10 ML VIAL SQ SCH ×4 (07:41→21:00)
[2018-01-13] MEDS: SYMBICORT 80-4.5 MCG INHALER INHALATION SCH ×2 (07:59→21:41)
[2018-01-13] MEDS: SODIUM BICARBONATE TAB 650 MG TAB PO SCH ×2 (08:49→21:01)
[2018-01-13] MEDS: ATORVASTATIN 40 MG TAB PO SCH (08:50)
[2018-01-13] MEDS: ASPIRIN 81 MG PO SCH (08:50)
[2018-01-13] MEDS: ANASTROZOLE 1 MG TAB PO SCH (08:50)
[2018-01-13] MEDS: CYCLOBENZAPRINE 10 MG TAB PO SCH ×3 (08:52→23:00)
[2018-01-13] MEDS: ceFAZolin IN SWFI 2 GM/20 ML SYRINGE IVP SCH ×2 (08:54→21:20)
[2018-01-13] MEDS: LORazepam 1 MG TAB PO SCH ×3 (08:54→23:00)
[2018-01-13 09:21] LABS: Anisocytosis Slight; Basophils % (A) 1 %; Eosinophils # (A) 0.2 k/uL (0-0.7); Eosinophils % (A) 4 %; HCT 28.4 % (34.0-46.0); HGB 9.2 gm/dL (11.4-16.0); Lymphocytes # (A) 1.2 k/uL (1.0-4.8); Lymphocytes % (A) 30 %; MCHC 32.4 g/dL (31.0-37.0); MCV 95.4 fL (80.0-100.0); Mean Platelet Volume 7.9; Monocytes # (A) 0.4 k/uL (0-1.0); Monocytes % (A) 9 %; Neutrophils # (A) 2.1 k/uL (1.3-7.7); Neutrophils % (A) 53 %; Platelet Count 111 k/uL (150-450); RBC 2.98 m/uL (3.80-5.40); RDW 16.8 % (11.5-15.5)
[2018-01-13 10:02] LABS: Calcium 8.9 mg/dL (8.4-10.2); Potassium 5.2 mmol/L (3.5-5.1)
[2018-01-13] MEDS: diphenhydrAMINE 50 MG CAP PO SCH ×3 (10:34→23:00)
[2018-01-13] MEDS: HYDROcodone/APAP 7.5-325MG 1 EACH TAB PO SCH ×3 (10:34→23:00)
[2018-01-13 11:20] LABS: Glucose,Whole Blood 131 mg/dL (75-99)
[2018-01-13 13:46] LABS: Appearance,Urine Cloudy (Clear); Bilirubin,Urine Negative (Negative); Blood,Urine Small (Negative); Budding Yeast,Urine Few /hpf; Color,Urine Yellow; Glucose,Urine (UA) Negative (Negative); Ketones,Urine Negative (Negative); Leukocyte Esterase,Urine Large (Negative); Nitrite,Urine Negative (Negative); Protein,Urine 1+ (Negative); RBC,Urine 15 /hpf (0-5); Squamous Epithelial Cell,Urine 1 /hpf (0-4); Urobilinogen,Urine <2.0 mg/dL (<2.0); WBC,Urine >182 /hpf (0-5)
[2018-01-13] MEDS: diphenhydrAMINE 25 MG CAP PO PRN (15:10)
[2018-01-13 17:04] LABS: Glucose,Whole Blood 128 mg/dL (75-99)
--- NOTE | 2018-01-13 17:16 | P.PN ---
Subjective Progress Note Date: 01/13/18 Principal diagnosis: This is a 67-year-old female with diabetes and chronic kidney disease and acute kidney injury who came in because of cellulitis of bilateral legs. Her creatinine is improved slowly. Continues to have pain in her both legs is on morphine and [place]. Supposedly she has neuropathy and pain. She's not on Neurontin or [place]. She was also feeling nauseated but has not thrown up. No diarrhea. No chest pain shortness of breath dizziness. She is known with COPD Sr. post mastectomy in 2013 type 2 diabetes, COPD rheumatoid arthritis seizure disorder. Objective - Vital Signs Vital signs: Vital Signs Temp 97.7 F 01/13/18 13:00 Pulse 89 01/13/18 15:23 Resp 18 01/13/18 15:23 BP 104/57 01/13/18 13:00 Pulse Ox 95 01/13/18 13:00 Intake & Output 01/12/18 01/13/18 01/13/18 18:59 06:59 18:59 Intake Total 160 1370 720 Output Total 150 Balance 160 1370 570 Weight 152 kg Intake: IV 160 240 Sodium Chloride 0.9% 1, 160 240 000 ml @ 20 mls/hr IV . Q24H [facility] Rx#:[id number] Intake, IV Titration 200 Amount Sodium Chloride 0.9% 1, 200 000 ml @ 20 mls/hr IV . Q24H [facility] Rx#:[id number] Oral 1130 520 Output: Urine 150 Other: Voiding Method Bedside Commode Bedside Commode Bedside Commode # Voids 1 1 3 On examination she is obese, anxious and in pain cause of leg pain possibly from neuropathy. She also cellulitis of both legs. HEENT exam no JVP neck is supple no facial asymmetry Lungs are clear to auscultation fair air entry bilaterally. Heart sounds are unremarkable for any murmur rub gallop Abdomen soft nontender obese Extremity exam was bilateral Patric wraps with some mild to moderate edema Neurologically awake alert. Sitting in a chair. - Labs CBC & Chem 7: 01/13/18 08:05 01/13/18 08:05 Labs: Abnormal Lab Results - Last 24 Hours (Table) 01/12/18 01/13/18 01/13/18 Range/Units 20:44 07:23 08:05 RBC 2.98 L (3.80-5.40) m/uL Hgb 9.2 L (11.4-16.0) gm/dL Hct 28.4 L (34.0-46.0) % RDW 16.8 H (11.5-15.5) % Plt Count 111 L (150-450) k/uL Potassium (3.5-5.1) mmol/L BUN (7-17) mg/dL Creatinine (0.52-1.04) mg/dL Glucose (74-99) mg/dL POC Glucose (mg/dL) 145 H 106 H (75-99) mg/dL Urine Appearance (Clear) Urine Protein (Negative) Urine Blood (Negative) Ur Leukocyte Esterase (Negative) Urine RBC (0-5) /hpf Urine WBC (0-5) /hpf Urine WBC Clumps (None) /hpf Urine Yeast (Budding) (None) /hpf 01/13/18 01/13/18 01/13/18 Range/Units 08:05 11:19 13:22 RBC (3.80-5.40) m/uL Hgb (11.4-16.0) gm/dL Hct (34.0-46.0) % RDW (11.5-15.5) % Plt Count (150-450) k/uL Potassium 5.2 H (3.5-5.1) mmol/L BUN 37 H (7-17) mg/dL Creatinine 2.54 H (0.52-1.04) mg/dL Glucose 108 H (74-99) mg/dL POC Glucose (mg/dL) 131 H (75-99) mg/dL Urine Appearance Cloudy H (Clear) Urine Protein 1+ H (Negative) Urine Blood Small H (Negative) Ur Leukocyte Esterase Large H (Negative) Urine RBC 15 H (0-5) /hpf Urine WBC >182 H (0-5) /hpf Urine WBC Clumps Many H (None) /hpf Urine Yeast (Budding) Few H (None) /hpf 01/13/18 Range/Units 17:00 RBC (3.80-5.40) m/uL Hgb (11.4-16.0) gm/dL Hct (34.0-46.0) % RDW (11.5-15.5) % Plt Count (150-450) k/uL Potassium (3.5-5.1) mmol/L BUN (7-17) mg/dL Creatinine (0.52-1.04) mg/dL Glucose (74-99) mg/dL POC Glucose (mg/dL) 128 H (75-99) mg/dL Urine Appearance (Clear) Urine Protein (Negative) Urine Blood (Negative) Ur Leukocyte Esterase (Negative) Urine RBC (0-5) /hpf Urine WBC (0-5) /hpf Urine WBC Clumps (None) /hpf Urine Yeast (Budding) (None) /hpf Microbiology - Last 24 Hours (Table) 01/08/18 19:44 Blood Culture - Preliminary Blood No Growth after 96 hours Assessment and Plan Assessment: Assessment: 1. Acute kidney injury mostly prerenal secondary to intravascular volume depletion from diuretics and PATRIC inhibitor use, and from cellulitis of the left lower extremity.. She was also receiving IV vancomycin. Creatinine is improved to 2.54 from a peak of 2.82. 2. Chronic kidney disease stage III with baseline creatinine in the range of 1.2-1.4 secondary to diabetic kidney disease. 1+ proteinuria on urinalysis 3. Systolic CHF with ejection fraction of 45-50% with moderate tricuspid regurgitation. 4. Moderate to severe pulmonary hypertension. 5. Left lower extremity cellulitis maintained on IV Kefzol. 6. Insulin-dependent diabetes mellitus. 7. Hypertension with chronic kidney disease. Blood pressure on the lower side 8. History of breast cancer status post right mastectomy and chemotherapy. 9. Anemia of chronic kidney disease. Ruled out iron deficiency. Saturation is 30% dated 01/10/2018. Hemoglobin is up to 9.2 stable Recommendation 1. Continue antibiotics. 2. Continue bicarb by mouth bicarb is 22. 3. Monitor hemoglobin. Currently on darbepoetin 40 g every 7 days.
[2018-01-13 20:59] LABS: Glucose,Whole Blood 140 mg/dL (75-99)
[2018-01-13] MEDS: INSULIN DETEMIR 100 UNIT/ML 10 ML VIAL SQ SCH (21:01)
--- NOTE | 2018-01-14 01:35 | PN ---
PROGRESS NOTE I am covering for Dr. Handy Delcid. DATE OF SERVICE: 01/13/2018 This 67-year-old woman was admitted with left leg cellulitis; also, had worsening renal failure. Patient has some shortness of breath. No chest pain. No palpitations. No fever. EXAM: Alert and oriented x3. Blood pressure 104/56, respiration 18, temperature 97.7, pulse ox 94% on room air. HEENT: Conjunctivae normal. Oral mucosa moist. NECK: No jugular venous distention. No lymph node enlargement. CARDIOVASCULAR: S1, S2. RESPIRATORY: Diminished breath sounds at the bases. Scattered rhonchi and crackles. ABDOMEN: Soft, nontender. LEGS: No swelling. NERVOUS SYSTEM: No focal deficits. LABS: Hemoglobin 9.2, platelets are 111. UA noted, possibly UTI. Urine culture is not available. ASSESSMENT: 1. Left leg cellulitis with sepsis, present on admission. 2. Weakness. 3. Possible UTI. 4. Shortness of breath on exertion, possible congestive heart failure acute exacerbation with acute on chronic diastolic dysfunction. 5. Pulmonary hypertension. 6. Exertional dyspnea. 7. Chronic obstructive pulmonary disease. 8. Diabetes mellitus type 2. 9. Fibromyalgia. 10.Hyperlipidemia. 11.History of supraventricular tachycardia. 12.Rheumatoid arthritis. 13.History of breast cancer with mastectomy. 14.Hypertension. 15.Seizure disorder. 16.Morbid obesity. 17.Acute on chronic kidney failure, stage III. 18.FULL CODE. RECOMMENDATIONS AND DISCUSSION: I recommend to continue current management and continue symptomatic treatment. The patient is currently on cefazolin. I would recommend continue with urine culture and continue to monitor with Infectious Disease. Monitor blood sugars closely. Further recommendations to follow. MMODL / IJN: [id number] /
[2018-01-14 07:04] LABS: Glucose,Whole Blood 106 mg/dL (75-99)
[2018-01-14 08:26] LABS: Anisocytosis Slight; Basophils % (A) 1 %; Eosinophils # (A) 0.2 k/uL (0-0.7); Eosinophils % (A) 4 %; HCT 27.5 % (34.0-46.0); HGB 9.2 gm/dL (11.4-16.0); Lymphocytes # (A) 1.2 k/uL (1.0-4.8); Lymphocytes % (A) 32 %; MCH 31.6 pg (25.0-35.0); MCHC 33.4 g/dL (31.0-37.0); MCV 94.7 fL (80.0-100.0); Mean Platelet Volume 7.8; Monocytes # (A) 0.3 k/uL (0-1.0); Monocytes % (A) 9 %; Neutrophils # (A) 1.8 k/uL (1.3-7.7); Neutrophils % (A) 51 %; Platelet Count 114 k/uL (150-450); RDW 16.5 % (11.5-15.5); WBC 3.6 k/uL (3.8-10.6)
[2018-01-14] MEDS: SYMBICORT 80-4.5 MCG INHALER INHALATION SCH ×2 (08:38→21:26)
[2018-01-14] MEDS: SODIUM BICARBONATE TAB 650 MG TAB PO SCH ×2 (08:44→21:47)
[2018-01-14] MEDS: HYDROcodone/APAP 7.5-325MG 1 EACH TAB PO SCH ×3 (08:44→21:47)
[2018-01-14] MEDS: ASPIRIN 81 MG PO SCH (08:45)
[2018-01-14] MEDS: ATORVASTATIN 40 MG TAB PO SCH (08:45)
[2018-01-14] MEDS: diphenhydrAMINE 50 MG CAP PO SCH ×3 (08:45→21:47)
[2018-01-14] MEDS: INSULIN ASPART 100 UNIT/ML 1 ML 10 ML VIAL SQ SCH ×4 (08:45→21:46)
[2018-01-14] MEDS: ANASTROZOLE 1 MG TAB PO SCH (08:45)
[2018-01-14] MEDS: ceFAZolin IN SWFI 2 GM/20 ML SYRINGE IVP SCH ×2 (08:45→14:58)
[2018-01-14 08:52] LABS: Calcium 9.1 mg/dL (8.4-10.2); Potassium 5.1 mmol/L (3.5-5.1)
[2018-01-14] MEDS: LORazepam 1 MG TAB PO SCH ×3 (09:32→22:52)
[2018-01-14] MEDS: CYCLOBENZAPRINE 10 MG TAB PO SCH ×3 (09:32→22:52)
--- NOTE | 2018-01-14 10:50 | P.PN ---
Subjective Progress Note Date: 01/14/18 Principal diagnosis: This is a 67-year-old female with diabetes and chronic kidney disease and acute kidney injury who came in because of cellulitis of bilateral legs. Her creatinine is improved slowly. Continues to have pain in her both legs is on morphine and [place]. Supposedly she has neuropathy and pain. She's not on Neurontin or Lyrica. She was also feeling nauseated but has not thrown up. No diarrhea. No chest pain shortness of breath dizziness. She is known with COPD S/p mastectomy in 2012, type 2 diabetes, COPD rheumatoid arthritis seizure disorder. Objective - Vital Signs Vital signs: Vital Signs Temp 97.9 F 01/14/18 05:00 Pulse 88 01/14/18 05:00 Resp 16 01/14/18 05:00 BP 168/84 01/14/18 05:00 Pulse Ox 97 01/14/18 05:00 Intake & Output 01/13/18 01/14/18 01/14/18 18:59 06:59 18:59 Intake Total 960 780 Output Total 150 Balance 810 780 Weight 150.5 kg Intake: IV 240 Sodium Chloride 0.9% 1, 240 000 ml @ 20 mls/hr IV . Q24H ROS Rx#:[id number] Intake, IV Titration 200 Amount Sodium Chloride 0.9% 1, 200 000 ml @ 20 mls/hr IV . Q24H ROS Rx#:[id number] Oral 760 540 Output: Urine 150 Other: Voiding Method Bedside Commode Bedside Commode # Voids 3 1 - Labs CBC & Chem 7: 01/14/18 07:40 01/14/18 07:40 Labs: Abnormal Lab Results - Last 24 Hours (Table) 01/13/18 01/13/18 01/13/18 Range/Units 11:19 13:22 17:00 WBC (3.8-10.6) k/uL RBC (3.80-5.40) m/uL Hgb (11.4-16.0) gm/dL Hct (34.0-46.0) % RDW (11.5-15.5) % Plt Count (150-450) k/uL BUN (7-17) mg/dL Creatinine (0.52-1.04) mg/dL POC Glucose (mg/dL) 131 H 128 H (75-99) mg/dL Urine Appearance Cloudy H (Clear) Urine Protein 1+ H (Negative) Urine Blood Small H (Negative) Ur Leukocyte Esterase Large H (Negative) Urine RBC 15 H (0-5) /hpf Urine WBC >182 H (0-5) /hpf Urine WBC Clumps Many H (None) /hpf Urine Yeast (Budding) Few H (None) /hpf 01/13/18 01/14/18 01/14/18 Range/Units 20:58 07:02 07:40 WBC 3.6 L (3.8-10.6) k/uL RBC 2.90 L (3.80-5.40) m/uL Hgb 9.2 L (11.4-16.0) gm/dL Hct 27.5 L (34.0-46.0) % RDW 16.5 H (11.5-15.5) % Plt Count 114 L (150-450) k/uL BUN (7-17) mg/dL Creatinine (0.52-1.04) mg/dL POC Glucose (mg/dL) 140 H 106 H (75-99) mg/dL Urine Appearance (Clear) Urine Protein (Negative) Urine Blood (Negative) Ur Leukocyte Esterase (Negative) Urine RBC (0-5) /hpf Urine WBC (0-5) /hpf Urine WBC Clumps (None) /hpf Urine Yeast (Budding) (None) /hpf 01/14/18 Range/Units 07:40 WBC (3.8-10.6) k/uL RBC (3.80-5.40) m/uL Hgb (11.4-16.0) gm/dL Hct (34.0-46.0) % RDW (11.5-15.5) % Plt Count (150-450) k/uL BUN 35 H (7-17) mg/dL Creatinine 1.98 H (0.52-1.04) mg/dL POC Glucose (mg/dL) (75-99) mg/dL Urine Appearance (Clear) Urine Protein (Negative) Urine Blood (Negative) Ur Leukocyte Esterase (Negative) Urine RBC (0-5) /hpf Urine WBC (0-5) /hpf Urine WBC Clumps (None) /hpf Urine Yeast (Budding) (None) /hpf Microbiology - Last 24 Hours (Table) 01/13/18 13:22 Urine Culture - Preliminary Urine,Clean Catch 01/08/18 19:44 Blood Culture - Preliminary Blood No Growth after 120 hours Assessment and Plan Assessment: Assessment: 1. Acute kidney injury mostly prerenal secondary to intravascular volume depletion from diuretics and BINDU inhibitor use, and from cellulitis of the left lower extremity.. She was also receiving IV vancomycin. Creatinine is improved to 1.9 from a peak of 2.82. 2. Chronic kidney disease stage III with baseline creatinine in the range of 1.2-1.4 secondary to diabetic kidney disease. 1+ proteinuria on urinalysis 3. Systolic CHF with ejection fraction of 45-50% with moderate tricuspid regurgitation. 4. Moderate to severe pulmonary hypertension. 5. Left lower extremity cellulitis maintained on IV Kefzol. 6. Insulin-dependent diabetes mellitus. 7. Hypertension with chronic kidney disease. Blood pressure on the lower side 8. History of breast cancer status post right mastectomy and chemotherapy. 9. Anemia of chronic kidney disease. Ruled out iron deficiency. Saturation is 30% dated 01/10/2018. Hemoglobin is up to 9.2 stable Recommendation 1. Continue antibiotics. 2. Continue bicarb by mouth bicarb is 22. 3. Monitor hemoglobin. Currently on darbepoetin 40 g every 7 days.
[2018-01-14 12:45] LABS: Glucose,Whole Blood 111 mg/dL (75-99)
[2018-01-14 17:15] LABS: Glucose,Whole Blood 214 mg/dL (75-99)
[2018-01-14] MEDS: CEPHALEXIN 500 MG CAP PO SCH ×2 (17:43→21:47)
--- NOTE | 2018-01-14 19:00 | PN ---
PROGRESS NOTE DATE OF SERVICE: 01/14/2018 I am covering for Dr. Delcid. This 67-year-old woman who was admitted with left leg cellulitis and sepsis, improved significantly. Patient has some weakness. No chest pain. No palpitations. No fever. EXAM: Alert and oriented times three. Pulse 93, blood pressure 103/60, respirations 18, temperature 97.2, pulse ox 94% on room air. HEENT: Conjunctivae normal. Oral mucosa moist. Neck is no jugular venous distention. No carotid bruit. No lymph node enlargement. Cardiovascular: S1, S2. RESPIRATORY: Breath sounds diminished in the bases. A few scattered rhonchi. No crackles. Abdomen is soft. Nontender. Legs cellulitis. Central nervous system: No focal deficits. LABS: WBC 3.2, hemoglobin 9.2, platelets 149. Accu-Cheks noted. ASSESSMENT: 1. Left leg cellulitis with sepsis present on admission. 2. Weakness. 3. Possible urinary tract infection. 4. Shortness of breath possibly congestive heart failure acute exacerbation with acute on chronic diastolic dysfunction. 5. History of pulmonary hypertension. 6. History of exertional dyspnea. 7. Chronic obstructive pulmonary disease. 8. Diabetes type 2. 9. Fibromyalgia. 10.Hyperlipidemia. 11.History of supraventricular tachycardia. 12.History of rheumatoid arthritis. 13.History of breast cancer with mastectomy. 14.Hypertension. 15.Seizure disorder history. 16.Morbid obesity history. 17.Acute on chronic kidney disease stage 4. 18.FULL CODE. RECOMMENDATIONS AND DISCUSSION: In this 67-year-old woman who presented with multiple complex medical issues, we will monitor the patient closely. Continue the current medications, management and symptomatic treatment. Otherwise, at this time, I recommend continue with antibiotics. Repeat labs. The creatinine is slightly elevated at 0.8, but still much better from the previous reports. Otherwise, continue to monitor. Further recommendations to follow. See orders for further details. MMODL / IJN: [id number] /
[2018-01-14 20:24] LABS: Glucose,Whole Blood 146 mg/dL (75-99)
[2018-01-14] MEDS: INSULIN DETEMIR 100 UNIT/ML 10 ML VIAL SQ SCH (21:47)
[2018-01-14] MEDS: SODIUM CHLORIDE 0.9% 1,000 ML IV SCH (22:53)
[2018-01-15 07:12] LABS: Glucose,Whole Blood 84 mg/dL (75-99)
[2018-01-15] MEDS: INSULIN ASPART 100 UNIT/ML 1 ML 10 ML VIAL SQ SCH ×4 (08:32→20:44)
[2018-01-15] MEDS: HYDROcodone/APAP 7.5-325MG 1 EACH TAB PO SCH ×3 (08:34→21:13)
[2018-01-15] MEDS: SODIUM BICARBONATE TAB 650 MG TAB PO SCH ×2 (08:34→21:12)
[2018-01-15] MEDS: ATORVASTATIN 40 MG TAB PO SCH (08:35)
[2018-01-15] MEDS: ASPIRIN 81 MG PO SCH (08:35)
[2018-01-15] MEDS: CEPHALEXIN 500 MG CAP PO SCH ×3 (08:35→21:12)
[2018-01-15] MEDS: diphenhydrAMINE 50 MG CAP PO SCH ×3 (08:35→21:13)
[2018-01-15] MEDS: ANASTROZOLE 1 MG TAB PO SCH (08:35)
[2018-01-15] MEDS: SYMBICORT 80-4.5 MCG INHALER INHALATION SCH ×2 (08:42→19:29)
[2018-01-15 10:28] LABS: Anisocytosis Slight; Basophils % (A) 1 %; Eosinophils # (A) 0.1 k/uL (0-0.7); Eosinophils % (A) 3 %; HGB 8.5 gm/dL (11.4-16.0); Lymphocytes # (A) 0.8 k/uL (1.0-4.8); Lymphocytes % (A) 30 %; MCHC 32.6 g/dL (31.0-37.0); Mean Platelet Volume 7.4; Monocytes # (A) 0.2 k/uL (0-1.0); Monocytes % (A) 9 %; Neutrophils # (A) 1.5 k/uL (1.3-7.7); Neutrophils % (A) 55 %; Platelet Count 101 k/uL (150-450); RBC 2.74 m/uL (3.80-5.40); RDW 16.5 % (11.5-15.5); WBC 2.8 k/uL (3.8-10.6)
[2018-01-15 10:44] LABS: Calcium 9.1 mg/dL (8.4-10.2)
[2018-01-15 10:50] LABS: Potassium 4.7 mmol/L (3.5-5.1)
[2018-01-15] MEDS: CYCLOBENZAPRINE 10 MG TAB PO SCH ×3 (11:03→21:39)
[2018-01-15] MEDS: LORazepam 1 MG TAB PO SCH ×3 (11:03→21:39)
[2018-01-15 11:44] LABS: Glucose,Whole Blood 106 mg/dL (75-99)
[2018-01-15 12:04] VITALS: BMI 54.4
--- NOTE | 2018-01-15 13:14 | P.DS ---
Providers Date of admission: 01/08/18 22:57 Expected date of discharge: 01/15/18 Attending physician: Handy Delcid Consults: 01/09/18 12:19 Consult Physician Urgent Consulting Provider: Mateo Villanueva Consult Reason/Comments: cellulitis legs Do you want consulting provider notified?: Yes 01/09/18 14:48 Consult Physician Urgent Consulting Provider: Jeanine Woody Consult Reason/Comments: pulmonary hypertension exertional dyspnea Do you want consulting provider notified?: Yes 01/09/18 14:49 Consult Physician Urgent Consulting Provider: Danielito Villareal Consult Reason/Comments: exertional dyspnea Do you want consulting provider notified?: Yes 01/10/18 11:40 Consult Physician Urgent Consulting Provider: Adelita Chappell Consult Reason/Comments: renal failure Do you want consulting provider notified?: Yes Primary care physician: Handy Delcid Hospital Course: Of-year-old female was admitted to the emergency room with complaints of redness to left lower extremity and weakness with the exertional dyspnea. Patient was evaluated by pulmonology cardiology and infectious disease patient has been stabilized but continues to complain of weakness. Patient will continue on Keflex and home medications Assessment Left leg cellulitis with sepsis Pulmonary hypertension right ventricular enlargement Congestive heart failure systolic dysfunction with ejection fraction 4550% Weakness Exertional dyspnea History of COPD stable Diabetes type 2 Fibromyalgia Urinary tract infection Anemia chronic disease Hyperlipidemia History of SVT Rheumatoid arthritis History of breast cancer with mastectomy 2012 Hypertension Seizure disorder Acute on chronic renal failure stage IV Morbid obesity Plan Transfer to extended care facility for rehab Patient Condition at Discharge: Serious Plan - Discharge Summary Discharge Rx Participant: No New Discharge Prescriptions: New Cephalexin [Keflex] 500 mg PO TID cap Darbepoetin Gurwinder [Aranesp] 40 mcg SQ Q7D syringe Docusate [Colace] 100 mg PO DAILY PRN cap PRN Reason: Constipation SILVER sulfADIAZINE CREAM [Silvadene Cream] 1 applic TOPICAL DAILY applic Sodium Bicarbonate Tab 650 mg PO BID tab Continue Fluticasone/Salmeterol [Advair 100-50 Diskus] 1 inhalation PO RT-DAILY Anastrozole [Arimidex] 1 mg PO DAILY diphenhydrAMINE HCL [Benadryl] 50 mg PO DAILY Insulin Aspart [NovoLOG] 30 units SQ AC-TID Insulin Detemir [Levemir Flextouch] 70 units SQ HS Aspirin 81 mg PO DAILY chew Atorvastatin [Lipitor] 40 mg PO DAILY 30 Days #30 tab Cyclobenzaprine [Flexeril] 10 mg PO TID HYDROcodone/APAP 7.5-325MG [[place] 7.5-325] 1 tab PO TID 3 Days #9 tab LORazepam [Ativan] 1 mg PO TID 3 Days #9 tablet Discontinued Lisinopril-Hctz 20-25 mg [Zestoretic 20-25] 1 each PO DAILY diphenhydrAMINE [Benadryl] 25 mg PO DAILY PRN cap PRN Reason: Itching Discharge Medication List Fluticasone/Salmeterol [Advair 100-50 Diskus] 1 inhalation PO RT-DAILY 06/24/14 [History] Anastrozole [Arimidex] 1 mg PO DAILY 09/30/14 [History] Insulin Aspart [NovoLOG] 30 units SQ AC-TID 12/16/17 [History] Insulin Detemir [Levemir Flextouch] 70 units SQ HS 12/16/17 [History] diphenhydrAMINE HCL [Benadryl] 50 mg PO DAILY 12/16/17 [History] Aspirin 81 mg PO DAILY chew 12/25/17 [Rx] Atorvastatin [Lipitor] 40 mg PO DAILY 30 Days #30 tab 12/25/17 [Rx] Cyclobenzaprine [Flexeril] 10 mg PO TID 01/08/18 [History] Cephalexin [Keflex] 500 mg PO TID cap 01/15/18 [Rx] Darbepoetin Gurwinder [Aranesp] 40 mcg SQ Q7D syringe 01/15/18 [Rx] Docusate [Colace] 100 mg PO DAILY PRN cap 01/15/18 [Rx] HYDROcodone/APAP 7.5-325MG [[place] 7.5-325] 1 tab PO TID 3 Days #9 tab 01/15/18 [ Rx] LORazepam [Ativan] 1 mg PO TID 3 Days #9 tablet 01/15/18 [Rx] SILVER sulfADIAZINE CREAM [Silvadene Cream] 1 applic TOPICAL DAILY applic 01/15 [Rx] Sodium Bicarbonate Tab 650 mg PO BID tab 01/15/18 [Rx] Follow up Appointment(s)/Referral(s): Hanyd Delcid MD [Primary Care Provider] - 1-2 days Jeanine Woody MD [STAFF PHYSICIAN] - 3 Weeks
[2018-01-15 17:37] LABS: Glucose,Whole Blood 122 mg/dL (75-99)
--- NOTE | 2018-01-15 19:38 | PN ---
PROGRESS NOTE The patient is seen for followup for chronic kidney disease and acute kidney injury. Currently, she is lying in bed. Renal function has improved. Creatinine is down to 1.53. The patient is complaining of left-sided upper abdominal pain. She is not on any IV fluids or diuretics. PHYSICAL EXAMINATION: Blood pressure is 141/98, heart rate 91 per minute, O2 sats 94% on room air. Examination of the heart S1, S2. Examination of the lungs, decreased breath sounds in the bases. ABDOMEN: Soft, morbidly obese. Examination of lower extremities shows chronic skin changes. Trace edema bilaterally. SOUND SYSTEM INSTALLER exam is grossly intact. There is tenderness noted in the left upper abdomen and mid abdominal area. No obvious masses and no rebound tenderness or erythema is noted. LAB: Show sodium 138, potassium 4.7, chloride 108, BUN 30, serum creatinine 1.53, hemoglobin was 8.5 g/dL. ASSESSMENT: 1. Acute kidney injury, acute tubular necrosis, nonoliguric, currently improving. 2. Cellulitis, bilateral lower extremities, currently improving. 3. Congestive heart failure, systolic, acute on top of chronic. 4. Cardiomyopathy, EF 45-50 percent. 5. [id number] pulmonary hypertension. 6. History of breast cancer status post right mastectomy and chemotherapy. 7. Anemia of chronic disease, maintained on Aranesp. PLAN: Continue with Aranesp. Continue antibiotics. Encourage increased oral intake and monitor renal profile. MMODL / IJN: [id number] /
[2018-01-15 20:03] LABS: Glucose,Whole Blood 135 mg/dL (75-99)
[2018-01-15] MEDS: INSULIN DETEMIR 100 UNIT/ML 10 ML VIAL SQ SCH (21:39)
[2018-01-15] MEDS: SODIUM CHLORIDE 0.9% 1,000 ML IV SCH (21:40)
[2018-01-16 07:00] LABS: Glucose,Whole Blood 81 mg/dL (75-99)
[2018-01-16] MEDS: SYMBICORT 80-4.5 MCG INHALER INHALATION SCH (07:52)
[2018-01-16 08:48] LABS: Anisocytosis Slight; Basophils % (A) 0 %; Eosinophils # (A) 0.1 k/uL (0-0.7); Eosinophils % (A) 2 %; HCT 27.7 % (34.0-46.0); HGB 9.1 gm/dL (11.4-16.0); Lymphocytes # (A) 0.9 k/uL (1.0-4.8); Lymphocytes % (A) 26 %; MCH 31.5 pg (25.0-35.0); MCHC 32.9 g/dL (31.0-37.0); MCV 95.6 fL (80.0-100.0); Monocytes # (A) 0.3 k/uL (0-1.0); Monocytes % (A) 8 %; Neutrophils % (A) 60 %; RDW 16.3 % (11.5-15.5); WBC 3.4 k/uL (3.8-10.6)
[2018-01-16 09:10] LABS: Platelet Count 94 k/uL (150-450)
[2018-01-16 09:35] LABS: Calcium 9.3 mg/dL (8.4-10.2); Potassium 4.7 mmol/L (3.5-5.1)
[2018-01-16] MEDS: LORazepam 1 MG TAB PO SCH ×2 (09:39→15:44)
[2018-01-16] MEDS: HYDROcodone/APAP 7.5-325MG 1 EACH TAB PO SCH ×2 (09:39→15:44)
[2018-01-16] MEDS: diphenhydrAMINE 50 MG CAP PO SCH ×2 (09:41→15:44)
[2018-01-16] MEDS: SODIUM BICARBONATE TAB 650 MG TAB PO SCH (09:41)
[2018-01-16] MEDS: CYCLOBENZAPRINE 10 MG TAB PO SCH ×2 (09:41→15:42)
[2018-01-16] MEDS: ASPIRIN 81 MG PO SCH (09:41)
[2018-01-16] MEDS: ATORVASTATIN 40 MG TAB PO SCH (09:41)
[2018-01-16] MEDS: INSULIN ASPART 100 UNIT/ML 1 ML 10 ML VIAL SQ SCH ×3 (09:41→17:34)
[2018-01-16] MEDS: ANASTROZOLE 1 MG TAB PO SCH (09:41)
[2018-01-16] MEDS: CEPHALEXIN 500 MG CAP PO SCH ×2 (09:41→15:44)
[2018-01-16 11:55] LABS: Glucose,Whole Blood 97 mg/dL (75-99)
[2018-01-16 12:09] VITALS: BP 158/85; PULSE 91; RESP 17; TEMP 98.4
--- NOTE | 2018-01-16 13:04 | P.PN ---
Progress Note - Text Patient stable to transfer to extended care facility awaiting approval
[2018-01-16 16:38] LABS: Glucose,Whole Blood 111 mg/dL (75-99)
--- NOTE | 2018-01-16 21:24 | PN ---
PROGRESS NOTE The patient is seen for followup for acute kidney injury. Patient is comfortable. She is complaining of some pain at the site of the right mastectomy. Oral intake has been good. PHYSICAL EXAMINATION: Blood pressure this morning was 158/85, heart rate 91 per minute. Patient is afebrile. Examination of the heart S1, S2. Examination of lungs bilateral breath sounds are heard. ABDOMEN: Soft, obese. Examination of lower extremities shows chronic skin changes. Trace edema is noted. An eschar is noted at the site of the right mastectomy. No significant drainage or erythema noted at this time. LABS: Show sodium 140, potassium 4.7, BUN 27, serum creatinine 1.31. ASSESSMENT: 1. Acute kidney injury, acute tubular necrosis, currently nonoliguric and improved. 2. Congestive heart failure, acute on top of chronic, mainly systolic. 3. Cardiomyopathy, ejection fraction 45-50 percent. 4. Cellulitis, bilateral lower extremities, now improved. 5. Anemia of chronic disease, maintained on Aranesp. 6. Chronic kidney disease secondary to nephrosclerosis and gave stage III, with creatinine lowest at 1.2 mg/dL recently. Serum creatinine was 0.7 in 2016. PLAN: Patient will need outpatient followup for CKD. MMODL / IJN: [id number] /
== END 2018-01-16 18:02 | DRG 871 ==
LOC: EC 17:00 → 3NMEDONC 22:57
PROVIDERS: ADMIT Family Medicine; ATTEND Family Medicine
DX: A41.9 Sepsis, unspecified organism (principal); I50.33 Acute on chronic diastolic (congestive) heart failure; N17.0 Acute kidney failure with tubular necrosis; L03.116 Cellulitis of left lower limb; Z68.43 Body mass index [BMI] 50.0-59.9, adult; I13.0 Hypertensive heart and chronic kidney disease with heart failure and stage 1 through stage 4 chronic kidney disease, or unspecified chronic kidney disease; I42.9 Cardiomyopathy, unspecified; D61.818 Other pancytopenia; E87.2 Acidosis; L03.115 Cellulitis of right lower limb; N39.0 Urinary tract infection, site not specified; E11.40 Type 2 diabetes mellitus with diabetic neuropathy, unspecified; E11.22 Type 2 diabetes mellitus with diabetic chronic kidney disease; I08.2 Rheumatic disorders of both aortic and tricuspid valves; E66.01 Morbid (severe) obesity due to excess calories; N18.3 Chronic kidney disease, stage 3 (moderate); I27.20 Pulmonary hypertension, unspecified; E87.5 Hyperkalemia; E11.65 Type 2 diabetes mellitus with hyperglycemia; J44.9 Chronic obstructive pulmonary disease, unspecified; E78.5 Hyperlipidemia, unspecified; M79.7 Fibromyalgia; M06.9 Rheumatoid arthritis, unspecified; G40.909 Epilepsy, unspecified, not intractable, without status epilepticus; G89.29 Other chronic pain; T50.2X5A Adverse effect of carbonic-anhydrase inhibitors, benzothiadiazides and other diuretics, initial encounter; D63.1 Anemia in chronic kidney disease; K59.00 Constipation, unspecified; E86.9 Volume depletion, unspecified; R32 Unspecified urinary incontinence; F41.9 Anxiety disorder, unspecified; F17.210 Nicotine dependence, cigarettes, uncomplicated; Z71.6 Tobacco abuse counseling; Z71.3 Dietary counseling and surveillance; Z79.811 Long term (current) use of aromatase inhibitors; Z79.82 Long term (current) use of aspirin; Z79.4 Long term (current) use of insulin; Z79.51 Long term (current) use of inhaled steroids; Z79.899 Other long term (current) drug therapy; Z85.3 Personal history of malignant neoplasm of breast; Z90.11 Acquired absence of right breast and nipple; Z90.49 Acquired absence of other specified parts of digestive tract; Z90.710 Acquired absence of both cervix and uterus; Z98.51 Tubal ligation status; Z88.5 Allergy status to narcotic agent; Z88.0 Allergy status to penicillin; Z88.8 Allergy status to other drugs, medicaments and biological substances; Z80.1 Family history of malignant neoplasm of trachea, bronchus and lung; Z80.3 Family history of malignant neoplasm of breast; Z83.2 Family history of diseases of the blood and blood-forming organs and certain disorders involving the immune mechanism; Z81.8 Family history of other mental and behavioral disorders; Z83.3 Family history of diabetes mellitus; Z82.5 Family history of asthma and other chronic lower respiratory diseases; Z82.61 Family history of arthritis; Z82.69 Family history of other diseases of the musculoskeletal system and connective tissue; Z83.49 Family history of other endocrine, nutritional and metabolic diseases
CPT/HCPCS: 36415; 71046; 80048; 80053; 81001; 82550; 82553; 82728; 83540; 83550; 83735; 83880; 84132; 84484; 85025; 85610; 85730; 87040; 87086; 93005; 94640; 96374; 96375; 99285

== ENCOUNTER 2018-02-20 19:49 | Inpatient (IN) | payer MEDICARE ==
[2018-02-20] MEDS ORDERED: MORPHINE SULFATE 4 MG/ML SYRINGE IV STA (21:34)
--- NOTE | 2018-02-20 21:43 | ED ---
General Adult HPI - General Chief complaint: Chest Pain Stated complaint: Chest pain Time Seen by Provider: 02/20/18 21:07 Source: patient, EMS Mode of arrival: EMS - History of Present Illness Initial comments: This patient is 68-year-old woman [facility] to be evaluated for a constellation of symptoms. The patient states that when the main concerns is that she is having bilateral leg swelling, pain, and redness. Family states that this is similar to previous episode of cellulitis for which she was admitted to the hospital previously. The swelling has been going on for a few days and the staff [facility] the [facility] did attempt to give her Lasix to decrease the swelling, but she states that she is not noting any increase in urination in response to the Lasix. In addition, patient states that she is concerned she may be having "flu" as she has been having nausea and generalized aches and pains. She also has not had a bowel movement from early yesterday and describes pain in the abdomen like constipation. The symptoms have come on over the course the past day. Onset/Timin -: days(s) - Related Data Home Medications Medication Instructions Recorded Confirmed Fluticasone/Salmeterol [Advair 1 puff INHALATION RT-DAILY@89906/24/14 02/20/18 100-50 Diskus] Anastrozole [Arimidex] 1 mg PO DAILY@89909/30/14 02/20/18 diphenhydrAMINE HCL [Benadryl] 50 mg PO HS@2100 12/16/17 02/20/18 Cyclobenzaprine [Flexeril] 10 mg PO TID@0600,1400,2200 01/08/18 02/20/18 Acetaminophen Tab [Tylenol Tab] 650 mg PO Q4H PRN 02/20/18 02/20/18 Aspirin 81 mg PO DAILY@89902/20/18 02/20/18 Clindamycin HCl 300 mg PO Q6H 02/20/18 02/20/18 DULoxetine HCL [Cymbalta] 20 mg PO DAILY@89902/20/18 02/20/18 Darbepoetin Gurwinder [Aranesp] 40 mcg SQ TU@89902/20/18 02/20/18 Docusate [Colace] 100 mg PO DAILY@89902/20/1819 Ferrous Sulfate [Feosol] 325 mg PO DAILY@1700 02/20/18 02/20/18 Furosemide [Lasix] 20 mg PO DAILY@0900 02/20/18 02/20/18 HYDROcodone/APAP 7.5-325MG [[place] 1 tab PO Q6H 02/20/18 02/20/18 7.5-325] INSULIN LISPRO (HumaLOG) [HumaLOG] 30 units SQ TID@0800,1200,1700 02/20/1802/20 Insulin Glargine,Hum.rec.anlog 70 unit SQ HS@2100 02/20/18 02/20/18 [Basaglar Kwikpen U-100] LORazepam [Ativan] 1 mg PO HS PRN 02/20/18 02/20/18 Ondansetron [Zofran] 4 mg PO Q8HR PRN 02/20/18 02/20/18 Sodium Bicarbonate Tab 650 mg PO BID@0900,2100 02/20/18 02/20/18 Allergies Allergy/AdvReac Type Severity Reaction Status Date / Time codeine Allergy Nausea & Verified 02/20/18 20:27 Vomiting Penicillins Allergy Rash/Hives Verified 02/20/18 20:27 phenobarbital AdvReac Unknown Verified 02/20/18 20:27 phenytoin sodium AdvReac Unknown Verified 02/20/18 20:27 [From Dilantin] phenytoin sodium extended AdvReac Unknown Verified 02/20/18 20:27 [From Dilantin] primidone [From Mysoline] AdvReac Unknown Verified 02/20/18 20:27 Review of Systems ROS Statement: Those systems with pertinent positive or pertinent negative responses have been documented in the HPI. ROS Other: All systems not noted in ROS Statement are negative. Constitutional: Reports: weakness. Denies: fever, chills Respiratory: Denies: cough, dyspnea, wheezes Cardiovascular: Reports: chest pain, edema. Denies: palpitations, orthopnea, syncope Gastrointestinal: Reports: abdominal pain, nausea, constipation. Denies: vomiting, diarrhea, melena, hematochezia Genitourinary: Denies: dysuria, hematuria Musculoskeletal: Reports: back pain, myalgia Skin: Reports: change in color. Denies: rash Neurological: Denies: headache, weakness, numbness Past Medical History Past Medical History: Cancer, COPD, Diabetes Mellitus, Fibromyalgia, Hyperlipidemia, Hypertension, Rheumatoid Arthritis (RA), Seizure Disorder, Supraventricular Tachycardia (SVT) Additional Past Medical History / Comment(s): (R) Breast cancer with masectomy in 2012. DM Type II. Recent dental extraction (all teeth from lower jaw 2017) History of Any Multi-Drug Resistant Organisms: None Reported Past Surgical History: Adenoidectomy, Appendectomy, Breast Surgery, Cholecystectomy, Hysterectomy, Tonsillectomy, Tubal Ligation Additional Past Surgical History / Comment(s): masectomy right, ganglion cyst right hand, Had 5 "tubal pregnancies" Past Anesthesia/Blood Transfusion Reactions: No Reported Reaction Past Psychological History: Anxiety, Depression Smoking Status: Former smoker Past Alcohol Use History: None Reported Past Drug Use History: None Reported - Past Family History Father Family Medical History: Cancer, CVA/TIA Additional Family Medical History / Comment(s): 2000 from lung cancer Mother Family Medical History: Cancer, Dementia Additional Family Medical History / Comment(s): 2014 at age 86. Oral & Breast cancer Brother(s) Family Medical History: Asthma, Diabetes Mellitus, Fibromyalgia, Osteoarthritis (OA) Additional Family Medical History / Comment(s): Obesity. Joint replacements General Exam General appearance: alert, in no apparent distress, obese Head exam: Present: atraumatic, normocephalic Eye exam: Present: normal appearance ENT exam: Present: mucous membranes dry Neck exam: Present: normal inspection, full ROM Respiratory exam: Present: normal lung sounds bilaterally. Absent: respiratory distress, wheezes, rales, rhonchi, stridor Cardiovascular Exam: Present: regular rate, normal rhythm, systolic murmur ( Grade 3/6 systolic ejection murmur, consistent with ). Absent: diastolic murmur, rubs, gallop GI/Abdominal exam: Present: soft. Absent: distended, tenderness, guarding, rebound, rigid, mass, pulsatile mass, hernia Extremities exam: Present: normal inspection, normal capillary refill. Absent: pedal edema, calf tenderness Neurological exam: Present: alert Skin exam: Present: warm, dry, intact, normal color, erythema (The patient has circumferential erythema and soft tissue swelling to the bilateral lower legs. At the right leg this is at the midpoint of the tib-fib area, the right leg about the distal third.). Absent: rash Course Vital Signs 02/20/18 02/20/18 02/20/18 19:55 21:05 22:31 Temperature 98.1 F Pulse Rate 104 H 101 H 100 Respiratory 16 16 18 Rate Blood Pressure 134/87 172/92 168/90 O2 Sat by Pulse 100 98 96 Oximetry 02/21/18 05:04 Temperature Pulse Rate 99 Respiratory 18 Rate Blood Pressure 119/69 O2 Sat by Pulse 95 Oximetry EKG Findings - EKG Comments: EKG Findings:: Low-voltage QRS complexes. Possible old anterior infarct. - EKG Results: EKG: interpreted by ERMD, sinus rhythm, normal ST/T EKG shows: tachycardia - Blocks, [place], Hypertrophy, ST Abn: QRS axis and voltage: left axis deviation (-30 to -90) Medical Decision Making - Lab Data Result diagrams: 02/20/18 23:05 02/20/18 23:05 Lab Results 02/20/18 02/20/18 02/20/18 Range/Units 23:05 23:05 23:05 WBC 4.8 (3.8-10.6) k/uL RBC 2.82 L (3.80-5.40) m/uL Hgb 8.9 L (11.4-16.0) gm/dL Hct 28.4 L (34.0-46.0) % MCV 100.5 H (80.0-100.0) fL MCH 31.7 (25.0-35.0) pg MCHC 31.5 (31.0-37.0) g/dL RDW 17.0 H (11.5-15.5) % Plt Count 113 L (150-450) k/uL Neutrophils % 65 % Lymphocytes % 22 % Monocytes % 7 % Eosinophils % 4 % Basophils % 1 % Neutrophils # 3.1 (1.3-7.7) k/uL Lymphocytes # 1.0 (1.0-4.8) k/uL Monocytes # 0.3 (0-1.0) k/uL Eosinophils # 0.2 (0-0.7) k/uL Basophils # 0.0 (0-0.2) k/uL Hypochromasia Marked Anisocytosis Slight Macrocytosis Slight PT 12.1 H (9.0-12.0) sec INR 1.2 H (<1.2) APTT 23.3 (22.0-30.0) sec D-Dimer 2.42 H (<0.60) mg/L FEU Sodium 138 (137-145) mmol/L Potassium 5.0 (3.5-5.1) mmol/L Chloride 106 (98-107) mmol/L Carbon Dioxide 23 (22-30) mmol/L Anion Gap 9 mmol/L BUN 30 H (7-17) mg/dL Creatinine 1.30 H (0.52-1.04) mg/dL Est GFR (CKD-EPI)AfAm 50 (>60 ml/min/1.73 sqM) Est GFR (CKD-EPI)NonAf 43 (>60 ml/min/1.73 sqM) Glucose 98 (74-99) mg/dL Plasma Lactic Acid Vasile (0.7-2.0) mmol/L Calcium 8.9 (8.4-10.2) mg/dL Magnesium 2.2 (1.6-2.3) mg/dL Total Bilirubin 1.8 H (0.2-1.3) mg/dL AST 34 (14-36) U/L ALT 26 (9-52) U/L Alkaline Phosphatase 113 (38-126) U/L Total Creatine Kinase (30-135) U/L CK-MB (CK-2) (0.0-2.4) ng/mL CK-MB (CK-2) Rel Index Troponin I (0.000-0.034) ng/mL Total Protein 6.8 (6.3-8.2) g/dL Albumin 3.4 L (3.5-5.0) g/dL 02/20/18 02/20/18 Range/Units 23:05 23:05 WBC (3.8-10.6) k/uL RBC (3.80-5.40) m/uL Hgb (11.4-16.0) gm/dL Hct (34.0-46.0) % MCV (80.0-100.0) fL MCH (25.0-35.0) pg MCHC (31.0-37.0) g/dL RDW (11.5-15.5) % Plt Count (150-450) k/uL Neutrophils % % Lymphocytes % % Monocytes % % Eosinophils % % Basophils % % Neutrophils # (1.3-7.7) k/uL Lymphocytes # (1.0-4.8) k/uL Monocytes # (0-1.0) k/uL Eosinophils # (0-0.7) k/uL Basophils # (0-0.2) k/uL Hypochromasia Anisocytosis Macrocytosis PT (9.0-12.0) sec INR (<1.2) APTT (22.0-30.0) sec D-Dimer (<0.60) mg/L FEU Sodium (137-145) mmol/L Potassium (3.5-5.1) mmol/L Chloride (98-107) mmol/L Carbon Dioxide (22-30) mmol/L Anion Gap mmol/L BUN (7-17) mg/dL Creatinine (0.52-1.04) mg/dL Est GFR (CKD-EPI)AfAm (>60 ml/min/1.73 sqM) Est GFR (CKD-EPI)NonAf (>60 ml/min/1.73 sqM) Glucose (74-99) mg/dL Plasma Lactic Acid Vasile 1.3 (0.7-2.0) mmol/L Calcium (8.4-10.2) mg/dL Magnesium (1.6-2.3) mg/dL Total Bilirubin (0.2-1.3) mg/dL AST (14-36) U/L ALT (9-52) U/L Alkaline Phosphatase (38-126) U/L Total Creatine Kinase 66 (30-135) U/L CK-MB (CK-2) 1.0 (0.0-2.4) ng/mL CK-MB (CK-2) Rel Index 1.5 Troponin I <0.012 (0.000-0.034) ng/mL Total Protein (6.3-8.2) g/dL Albumin (3.5-5.0) g/dL Disposition Clinical Impression: Cellulitis of both lower extremities Disposition: ADMITTED IP TO THIS [facility] Condition: Poor
--- NOTE | 2018-02-20 21:58 | XR ---
EXAMINATION: XR chest 1V portable DATE AND TIME: 02/20/2018 9:55 PM CLINICAL INDICATION: PHH; chest pain TECHNIQUE: AP upright portable. COMPARISON: 01/08/2018 FINDINGS: The lungs are clear. The pleural spaces are negative. The cardiac silhouette is mildly enlarged. The remainder of the mediastinal silhouette is unremarkable. The skeletal structures and soft tissues are negative for acute findings. IMPRESSION: NO ACUTE PROCESS.
[2018-02-21 04:20] LABS: Anisocytosis Slight; Basophils % (A) 1 %; Eosinophils # (A) 0.2 k/uL (0-0.7); Eosinophils % (A) 4 %; HCT 28.4 % (34.0-46.0); HGB 8.9 gm/dL (11.4-16.0); Hypochromasia Marked; Lymphocytes % (A) 22 %; MCH 31.7 pg (25.0-35.0); MCHC 31.5 g/dL (31.0-37.0); MCV 100.5 fL (80.0-100.0); Macrocytosis Slight; Mean Platelet Volume 7.4; Monocytes # (A) 0.3 k/uL (0-1.0); Monocytes % (A) 7 %; Neutrophils # (A) 3.1 k/uL (1.3-7.7); Neutrophils % (A) 65 %; Platelet Count 113 k/uL (150-450); RBC 2.82 m/uL (3.80-5.40); WBC 4.8 k/uL (3.8-10.6)
[2018-02-21 04:22] LABS: INR 1.2 (<1.2); Partial Thromboplastin Time 23.3 sec (22.0-30.0); Prothrombin Time 12.1 sec (9.0-12.0)
[2018-02-21 05:04] LABS: Albumin 3.4 g/dL (3.5-5.0); Calcium 8.9 mg/dL (8.4-10.2); Magnesium 2.2 mg/dL (1.6-2.3); Total Bilirubin 1.8 mg/dL (0.2-1.3); Total Protein 6.8 g/dL (6.3-8.2)
[2018-02-21 05:05] LABS: Creatine Kinase 66 U/L (30-135); Troponin I <0.012 ng/mL (0.000-0.034)
[2018-02-21 05:42] LABS: D-Dimer 2.42 mg/L FEU (<0.60)
[2018-02-21] MEDS ORDERED: MORPHINE SULFATE 4 MG/ML SYRINGE IVP PRN (07:17)
[2018-02-21 08:18] LABS: Glucose,Whole Blood 95 mg/dL (75-99)
[2018-02-21] MEDS ORDERED: ONDANSETRON 4 MG/2 ML VIAL IVP PRN (09:29)
[2018-02-21] MEDS ORDERED: ALPRAZolam 0.25 MG TAB PO PRN (09:29)
[2018-02-21] MEDS ORDERED: NALOXONE 0.4 MG/ML 1 ML VIAL IV PRN (09:29)
[2018-02-21] MEDS ORDERED: VANCOMYCIN IV PER PHARMACY 1 EACH MISC MISCELLANE PRN (09:38)
[2018-02-21] MEDS: VANCOMYCIN 2,250 MG in SODIUM CHLORIDE 0.9% 500 ML 500 ML IVPB SCH (10:54)
[2018-02-21] MEDS ORDERED: LORazepam 1 MG TAB PO PRN (10:57)
--- NOTE | 2018-02-21 12:04 | CT ---
EXAM: CT Angiography Chest With Intravenous Contrast CLINICAL HISTORY: R/O PE TECHNIQUE: Axial computed tomographic angiography images of the chest with intravenous contrast using pulmonary embolism protocol. CTDI is 18.9 mGy and DLP is 768.7 mGy-cm. This CT exam was performed using one or more of the following dose reduction techniques: automated exposure control, adjustment of the mA and/or kV according to patient size, and/or use of iterative reconstruction technique. MIP reconstructed images were created and reviewed. COMPARISON: 09/30/2014 FINDINGS: Limitations: There is respiratory artifact throughout the lungs which causes mild image degradation and limits detailed evaluation of the distal subsegmental pulmonary artery branches. Pulmonary arteries: Suboptimal opacification of the pulmonary artery system. Visualized pulmonary artery branches demonstrate no filling defects to suggest pulmonary embolism. Aorta: No acute findings. No thoracic aortic aneurysm. Lungs: Minimal linear changes involving the inferior lingular segments and left lung base are presumed subsegmental atelectasis. No focal consolidation. Pleural space: Small bilateral dependent layering pleural effusions. No pneumothorax. Heart: Cardiac chambers are enlarged, new from previous examination. No pericardial effusion. Bones/joints: No acute fracture. No dislocation. Soft tissues: A right mastectomy is again noted. There is increased density in the skin overlying the mastectomy site, new from previous exam. Increased density of the abdominal wall is noted. Lymph nodes: Unremarkable. No enlarged lymph nodes. Intraperitoneal space: There is mild to moderate ascites suggested in the superior abdomen. IMPRESSION: 1. Suboptimal opacification of the pulmonary artery system. No evidence for pulmonary embolism. Respiratory artifact at the lung bases limits distal subsegmental pulmonary artery evaluation. 2. A right mastectomy is again noted. There is increased density in the skin overlying the mastectomy site, new from previous exam. In addition, there is increased density involving the abdominal wall. Differential consideration includes anasarca. However, focal cellulitis involving the right anterior chest wall is difficult to exclude given the relative isolated appearance involving the right chest wall. No loculated fluid collection identified however. Please correlate clinically. 3. Cardiac chambers are enlarged, new from previous examination. No pericardial effusion. 4. There is mild to moderate ascites suggested in the superior abdomen.
[2018-02-21] MEDS: INSULIN ASPART 100 UNIT/ML 1 ML 10 ML VIAL SQ SCH ×5 (12:09→21:46)
[2018-02-21] MEDS: HYDROcodone/APAP 7.5-325MG 1 EACH TAB PO SCH ×4 (12:09→23:40)
[2018-02-21 12:10] LABS: Glucose,Whole Blood 101 mg/dL (75-99)
[2018-02-21] MEDS: CYCLOBENZAPRINE 10 MG TAB PO SCH ×2 (14:16→21:46)
[2018-02-21 16:34] LABS: Glucose,Whole Blood 104 mg/dL (75-99)
[2018-02-21] MEDS: FERROUS SULFATE 325 MG TAB PO SCH (16:43)
[2018-02-21] MEDS ORDERED: NITROGLYCERIN SL TABS 0.4 MG TAB SUBLINGUAL PRN (18:29)
[2018-02-21 20:17] LABS: Glucose,Whole Blood 163 mg/dL (75-99)
[2018-02-21] MEDS: INSULIN DETEMIR 100 UNIT/ML 10 ML VIAL SQ SCH (21:46)
[2018-02-21] MEDS: diphenhydrAMINE 25 MG CAP PO SCH (21:46)
[2018-02-21] MEDS: SODIUM BICARBONATE TAB 650 MG TAB PO SCH (21:46)
[2018-02-21 23:37] LABS: Hemoglobin A1C 4.4 % (4.0-6.0)
[2018-02-22] MEDS: CYCLOBENZAPRINE 10 MG TAB PO SCH ×3 (06:13→20:37)
[2018-02-22] MEDS: HYDROcodone/APAP 7.5-325MG 1 EACH TAB PO SCH ×4 (06:13→23:18)
[2018-02-22 07:17] LABS: Glucose,Whole Blood 83 mg/dL (75-99)
[2018-02-22] MEDS: INSULIN ASPART 100 UNIT/ML 1 ML 10 ML VIAL SQ SCH ×7 (07:37→21:52)
[2018-02-22] MEDS ORDERED: DULoxetine HCL 20 MG CAPSULE.DR PO SCH (09:00)
[2018-02-22] MEDS: ANASTROZOLE 1 MG TAB PO SCH (09:20)
[2018-02-22] MEDS: SODIUM BICARBONATE TAB 650 MG TAB PO SCH ×2 (09:20→20:37)
[2018-02-22] MEDS: ASPIRIN 81 MG PO SCH (09:20)
[2018-02-22] MEDS: MAGNESIUM HYDROXIDE 2,400 MG/10 ML CUP PO PRN (09:21)
[2018-02-22] MEDS: DOCUSATE 100 MG CAP PO SCH (09:21)
[2018-02-22] MEDS: VANCOMYCIN 2,250 MG in SODIUM CHLORIDE 0.9% 500 ML 500 ML IVPB SCH (09:22)
[2018-02-22 12:02] LABS: Glucose,Whole Blood 93 mg/dL (75-99)
--- NOTE | 2018-02-22 12:08 | P.HPIM ---
History of Present Illness 68-year-old female was brought to the emergency room from [facility] where she was in for rehab patient had developed increasing swelling and redness to lower extremities poor appetite constipation complaining of chest pain. Patient has a history of breast cancer with mastectomy Review of Systems Constitutional: Reports fatigue, Reports weakness Cardiovascular: Reports chest pain, Reports edema Gastrointestinal: Reports heartburn Integumentary: Reports color changes Past Medical History Past Medical History: Cancer, COPD, Diabetes Mellitus, Fibromyalgia, Hyperlipidemia, Hypertension, Renal Disease, Rheumatoid Arthritis (RA), Seizure Disorder, Supraventricular Tachycardia (SVT) Additional Past Medical History / Comment(s): IDDM type II, neuropathy bilateral legs/feet and hands, past cellulitis leg, R breast cancer with surgery and chemo, seizures with last time "years" ago, UTI, CKD, UTIs, chronic anemia History of Any Multi-Drug Resistant Organisms: None Reported Past Surgical History: Adenoidectomy, Appendectomy, Breast Surgery, Cholecystectomy, Hysterectomy, Orthopedic Surgery, Tonsillectomy, Tubal Ligation Additional Past Surgical History / Comment(s): masectomy right, ganglion cyst right hand, total hysterectomy (hx of tubal pregnancies), lower teeth extracted. Past Anesthesia/Blood Transfusion Reactions: No Reported Reaction Smoking Status: Light tobacco smoker - Past Family History Father Family Medical History: Cancer, CVA/TIA Additional Family Medical History / Comment(s): 2000 from lung cancer Mother Family Medical History: Cancer, Dementia Additional Family Medical History / Comment(s): 2014 at age 86. Oral & Breast cancer Brother(s) Family Medical History: Asthma, Diabetes Mellitus, Fibromyalgia, Osteoarthritis (OA) Additional Family Medical History / Comment(s): Obesity. Joint replacements Medications and Allergies Home Medications Medication Instructions Recorded Confirmed Type Fluticasone/Salmeterol [Advair 1 puff INHALATION RT-DAILY@0906/24/14 History 100-50 Diskus] Anastrozole [Arimidex] 1 mg PO DAILY@0909/30/14 02/20/18 History diphenhydrAMINE HCL [Benadryl] 50 mg PO HS@2100 12/16/17 02/20/18 History Cyclobenzaprine [Flexeril] 10 mg PO TID@0600,1400,2200 01/08/18 02/20/18 History Acetaminophen Tab [Tylenol Tab] 650 mg PO Q4H PRN 02/20/18 02/20/18 History Aspirin 81 mg PO DAILY@0900 02/20/18 02/20/18 History Clindamycin HCl 300 mg PO Q6H 02/20/18 02/20/18 History DULoxetine HCL [Cymbalta] 20 mg PO DAILY@0900 02/20/18 02/20/18 History Darbepoetin Gurwinder [Aranesp] 40 mcg SQ TU@0902/20/18 02/20/18 History Docusate [Colace] 100 mg PO DAILY@0902/20/18 02/20/18 History Ferrous Sulfate [Feosol] 325 mg PO DAILY@17002/20/18 02/20/18 History Furosemide [Lasix] 20 mg PO DAILY@0902/20/18 02/20/18 History HYDROcodone/APAP 7.5-325MG [[place] 1 tab PO Q6H 02/20/18 02/20/18 History 7.5-325] INSULIN LISPRO (HumaLOG) [HumaLOG] 30 units SQ TID@0800,1200,1700 02/20/1802/20 History Insulin Glargine,Hum.rec.anlog 70 unit SQ HS@209902/20/18 02/20/18 History [Basaglar Kwikpen U-100] LORazepam [Ativan] 1 mg PO HS PRN 02/20/18 02/20/18 History Ondansetron [Zofran] 4 mg PO Q8HR PRN 02/20/18 02/20/18 History Sodium Bicarbonate Tab 650 mg PO BID@0900,2100 02/20/18 02/20/18 History Allergies Allergy/AdvReac Type Severity Reaction Status Date / Time codeine Allergy Nausea & Verified 02/20/18 20:27 Vomiting Penicillins Allergy Rash/Hives Verified 02/20/18 20:27 phenobarbital AdvReac Unknown Verified 02/20/18 20:27 phenytoin sodium AdvReac Unknown Verified 02/20/18 20:27 [From Dilantin] phenytoin sodium extended AdvReac Unknown Verified 02/20/18 20:27 [From Dilantin] primidone [From Mysoline] AdvReac Unknown Verified 02/20/18 20:27 Physical Exam Vitals: Vital Signs Temp Pulse Pulse Pulse Resp BP Pulse Ox 02/22/18 06:55 97.9 F 94 12 110/76 96 02/22/18 04:12 20 02/22/18 01:30 98 111/73 02/21/18 23:44 18 02/21/18 23:38 98.1 F 97 16 170/86 95 02/21/18 19:31 104 H 22 02/21/18 19:19 98.5 F 102 H 16 154/76 94 L 02/21/18 16:00 16 02/21/18 14:38 97.8 F 101 H 16 133/82 95 02/21/18 12:06 98.4 F 99 16 137/85 95 Intake and Output 02/21/18 02/22/18 02/22/18 22:59 06:59 14:59 Intake Total 480 200 Balance 480 200 Intake: Oral 480 200 Other: Voiding Method Bedpan Bedpan # Voids 1 2 1 - Constitutional General appearance: morbidly obese - EENT Eyes: PERRLA Ears: bilateral: normal - Neck Neck: normal ROM - Respiratory Respiratory: right: rales - Cardiovascular Rhythm: regular Abnormal Heart Sounds: systolic murmur - Gastrointestinal General gastrointestinal: soft Localized gastrointestinal: tender: diffuse - Integumentary Cellulitis of lower extremities open wound to right axilla Integumentary: cellulitis - Musculoskeletal Musculoskeletal: generalized weakness - Psychiatric Psychiatric: A&O x's 3, appropriate affect, intact judgment & insight Results CBC & Chem 7: 02/20/18 23:05 02/22/18 07:59 Labs: Abnormal Lab Results - Last 24 Hours (Table) 02/21/18 02/21/18 02/21/18 Range/Units 12:08 16:28 20:06 BUN (7-17) mg/dL Creatinine (0.52-1.04) mg/dL POC Glucose (mg/dL) 101 H 104 H 163 H (75-99) mg/dL 02/22/18 Range/Units 07:59 BUN 30 H (7-17) mg/dL Creatinine 1.14 H (0.52-1.04) mg/dL POC Glucose (mg/dL) (75-99) mg/dL CT scan - chest: report reviewed Thrombosis Risk Factor Assmnt - Choose All That Apply Any of the Below Risk Factors Present?: Yes Each Factor Represents 1 point: Abnormal pulmonary function (COPD), Medical pt on bed rest, Swollen legs (current) Other Risk Factors: Yes Each Risk Factor Represents 2 Points: Age 61-74 years, Patient confined to bed, Malignancy Other congenital or acquired thrombophilia - If yes, enter type in comment: No Thrombosis Risk Factor Assessment Total Risk Factor Score: 9 Thrombosis Risk Factor Assessment Level: High Risk Assessment and Plan Plan: Assessment Cellulitis bilateral lower extremities Chest pain Abdominal pain with ascites History of COPD Diabetes type 2 Fibromyalgia Hyperlipidemia Hypertension Rheumatoid arthritis Seizures stable Breast cancer with mastectomy Anxiety/depression Plan Cardiology consultation regarding chest pain Surgical consultation regarding ascites and abdominal pain
--- NOTE | 2018-02-22 12:11 | P.PN ---
Subjective Patient resting in bed. States chest pain more related to heartburn and reflux. Continues with diffuse abdominal tenderness. Continues with edema and redness lower extremities surgical consultation requested Objective - Vital Signs Vital signs: Vital Signs Temp 97.9 F 02/22/18 06:55 Pulse 94 02/22/18 06:55 Resp 12 02/22/18 06:55 BP 110/76 02/22/18 06:55 Pulse Ox 96 02/22/18 06:55 Intake & Output 02/21/18 02/22/18 02/22/18 18:59 06:59 18:59 Intake Total 600 480 200 Balance 600 480 200 Intake: Intake, IV Titration 500 Amount Vancomycin 2,250 mg In 500 Sodium Chloride 0.9% 500 ml 500 ml @ 167 mls/hr IVPB Q24H [facility] Rx#: [id number] Oral 100 480 200 Other: Voiding Method Bedpan Bedpan Bedpan # Voids 2 1 - Constitutional General appearance: Present: morbidly obese - EENT Eyes: Present: PERRLA Ears: bilateral: normal - Respiratory Respiratory: right: rales - Cardiovascular Rhythm: regular Abnormal Heart Sounds: Present: systolic murmur - Gastrointestinal General gastrointestinal: Present: soft Localized gastrointestinal: tender: diffuse - Integumentary Integumentary Comment(s): Redness and edema to lower extremities open wound to right external Integumentary: Present: cellulitis - Neurologic Neurologic: Present: CNII-XII intact - Musculoskeletal Musculoskeletal: Present: generalized weakness - Psychiatric Psychiatric: Present: A&O x's 3, appropriate affect, intact judgment & insight - Labs CBC & Chem 7: 02/20/18 23:05 02/22/18 07:59 Labs: Abnormal Lab Results - Last 24 Hours (Table) 02/21/18 02/21/18 02/21/18 Range/Units 12:08 16:28 20:06 BUN (7-17) mg/dL Creatinine (0.52-1.04) mg/dL POC Glucose (mg/dL) 101 H 104 H 163 H (75-99) mg/dL 02/22/18 Range/Units 07:59 BUN 30 H (7-17) mg/dL Creatinine 1.14 H (0.52-1.04) mg/dL POC Glucose (mg/dL) (75-99) mg/dL - Imaging and Cardiology CT scan - chest: report reviewed Assessment and Plan Plan: Assessment Cellulitis lower extremities Chest pain Abdominal pain with ascites History of COPD Diabetes type 2 Fibromyalgia Hyperlipidemia Hypertension Rheumatoid arthritis Seizure history stable History of breast cancer with mastectomy Anxiety/depression Plan Continue consultation with cardiology Surgical consultation regarding ascites and abdominal pain
--- NOTE | 2018-02-22 12:45 | P.CRDCN ---
History of Present Illness History of present illness: This is a pleasant 68-year-old female past medical history significant for COPD , diabetes mellitus, hypertension, dyslipidemia, seizure disorder, breast cancer status post mastectomy and chronic nicotine dependence. She denies history of coronary artery disease and does not follow with a children's literature professor for any reason. We have been asked to see her in consultation for symptoms of chest pain. She presented to the hospital with complaints of increased bilateral lower extremity swelling, redness and pain, generalized body aches, increased weakness and constipation. She is seen and examined resting comfortably in bed in no acute distress. She complains of significant pain to her lower extremities as well as generalized achiness all over. On palpation of her anterior chest wall she winces in discomfort when pressing over the right anterior chest. She denies symptoms of left precordial chest pain, shortness of breath, dizziness or palpitations. She is seen and examined laying flat in bed in no acute respiratory distress. She is currently being treated with IV vancomycin. EKG reveals sinus tachycardia first-degree AV block, left axis deviation and nonspecific ST abnormalities. Chest x-ray negative for an acute cardiopulmonary process. Chest CTA negative for PE, right mastectomy noted. There is increased density in the skin overlying the mastectomy site which is new from previous exam. Increased density involving the abdominal wall possibility of anasarca versus focal cellulitis. Mild to moderate ascites noted. Laboratory data reviewed, WBC 4.8, hemoglobin 8.9, platelets 113, d-dimer 2.42, sodium 140, potassium 5, creatinine 1.14, magnesium 2.2, cardiac enzymes negative 2. Current cardiac medications include aspirin 81 mg daily, Lasix 20 mg daily. Most recent echocardiogram obtained December 2017 reveals mildly impaired left ventricular systolic function with ejection fraction 45-50%, mild aortic stenosis with a mean gradient of 14 mmHg, moderate tricuspid regurgitation and moderate to severe pulmonary hypertension with RVSP of 69 mmHg. At the time of my exam: CONSTITUTIONAL: Denies fever. Denies chills. EYES: Denies blurred vision. Denies vision changes. Denies eye pain. EARS, NOSE, MOUTH & THROAT: Denies headache. Denies sore throat. Denies ear pain. CARDIOVASCULAR: Denies chest pain. Denies shortness of breath. Denies orthopnea. Denies PND. Denies palpitations. RESPIRATORY: Denies cough. GASTROINTESTINAL: Denies abdominal pain. Denies diarrhea. Denies constipation. Denies nausea. Denies vomiting. MUSCULOSKELETAL: Complains of pain, swelling and redness to bilateral lower extremities. INTEGUMENTARY: Denies pruitis. Denies rash. NEUROLOGIC: Denies numbness. Denies tingling. Denies weakness. PSYCHIATRIC: Denies anxiety. Denies depression. ENDOCRINE: Denies fatigue. Denies weight change. Denies polydipsia. Denies polyurina. GENITOURINARY: Denies burning, hematuria or urgency with micturation. HEMATOLOGIC: Denies history of anemia. Denies bleeding. Blood pressure 110/76 heart rate 94 afebrile maintaining oxygen saturation on room air GENERAL: This is a 68-year-old female in no apparent distress at the time of my examination. Morbidly obese. HEENT: Head is atraumatic, normocephalic. Pupils are equal, round. Sclerae anicteric. Conjunctivae are clear. Mucous membranes of the mouth are moist. Neck is supple. There is no jugular venous distention. No carotid bruit is heard. LUNGS: Clear to auscultation no wheezes, rales or rhonchi. No chest wall tenderness is noted on palpation or with deep breathing. HEART: Regular rate and rhythm with faint systolic ejection murmur at the base, no rubs or gallops. S1 and S2 heard. ABDOMEN: Soft, nontender. Bowel sounds are heard. No organomegaly noted. EXTREMITIES: Significant lower extremity edema bilaterally with redness retirement up her lower leg and each leg, tracings in place. No calf tenderness noted. VASCULAR: Radial and dorsalis pedis pulses palpated, no evidence of clubbing. NEUROLOGIC: Patient is awake, alert and oriented x3. ASSESSMENT Bilateral lower extremity cellulitis Chest pain, right anterior chest wall reproducible on palpation. An acute coronary event has been ruled out with no evidence of ischemia on EKG and negative cardiac enzymes. Hypertension Dyslipidemia Diabetes mellitus COPD Chronic anemia PLAN An acute coronary event has been ruled out. Ongoing medical management per primary care team. No further cardiac intervention required. We will continue to follow as needed. Thank you kindly for this consultation. Nurse Practitioner note has been reviewed, I agree with a documented findings and plan of care. Patient was seen and examined. Past Medical History Past Medical History: Cancer, COPD, Diabetes Mellitus, Fibromyalgia, Hyperlipidemia, Hypertension, Renal Disease, Rheumatoid Arthritis (RA), Seizure Disorder, Supraventricular Tachycardia (SVT) Additional Past Medical History / Comment(s): IDDM type II, neuropathy bilateral legs/feet and hands, past cellulitis leg, R breast cancer with surgery and chemo, seizures with last time "years" ago, UTI, CKD, UTIs, chronic anemia History of Any Multi-Drug Resistant Organisms: None Reported Past Surgical History: Adenoidectomy, Appendectomy, Breast Surgery, Cholecystectomy, Hysterectomy, Orthopedic Surgery, Tonsillectomy, Tubal Ligation Additional Past Surgical History / Comment(s): masectomy right, ganglion cyst right hand, total hysterectomy (hx of tubal pregnancies), lower teeth extracted. Past Anesthesia/Blood Transfusion Reactions: No Reported Reaction Smoking Status: Light tobacco smoker - Past Family History Father Family Medical History: Cancer, CVA/TIA Additional Family Medical History / Comment(s): 2000 from lung cancer Mother Family Medical History: Cancer, Dementia Additional Family Medical History / Comment(s): 2014 at age 86. Oral & Breast cancer Brother(s) Family Medical History: Asthma, Diabetes Mellitus, Fibromyalgia, Osteoarthritis (OA) Additional Family Medical History / Comment(s): Obesity. Joint replacements Medications and Allergies Home Medications Medication Instructions Recorded Confirmed Type Fluticasone/Salmeterol [Advair 1 puff INHALATION RT-DAILY@89906/24/14 History 100-50 Diskus] Anastrozole [Arimidex] 1 mg PO DAILY@89909/30/14 02/20/18 History diphenhydrAMINE HCL [Benadryl] 50 mg PO HS@2100 12/16/17 02/20/18 History Cyclobenzaprine [Flexeril] 10 mg PO TID@0600,1400,2200 01/08/18 02/20/18 History Acetaminophen Tab [Tylenol Tab] 650 mg PO Q4H PRN 02/20/18 02/20/18 History Aspirin 81 mg PO DAILY@89902/20/18 02/20/18 History Clindamycin HCl 300 mg PO Q6H 02/20/18 02/20/18 History DULoxetine HCL [Cymbalta] 20 mg PO DAILY@89902/20/18 02/20/18 History Darbepoetin Gurwinder [Aranesp] 40 mcg SQ TU@0900 02/20/18 02/20/18 History Docusate [Colace] 100 mg PO DAILY@0900 02/20/18 02/20/18 History Ferrous Sulfate [Feosol] 325 mg PO DAILY@1700 02/20/18 02/20/18 History Furosemide [Lasix] 20 mg PO DAILY@0900 02/20/18 02/20/18 History HYDROcodone/APAP 7.5-325MG [[place] 1 tab PO Q6H 02/20/18 02/20/18 History 7.5-325] INSULIN LISPRO (HumaLOG) [HumaLOG] 30 units SQ TID@0800,1200,1700 02/20/1802/20 History Insulin Glargine,Hum.rec.anlog 70 unit SQ HS@2100 02/20/18 02/20/18 History [Basaglar Kwikpen U-100] LORazepam [Ativan] 1 mg PO HS PRN 02/20/18 02/20/18 History Ondansetron [Zofran] 4 mg PO Q8HR PRN 02/20/18 02/20/18 History Sodium Bicarbonate Tab 650 mg PO BID@0900,2100 02/20/18 02/20/18 History Allergies Allergy/AdvReac Type Severity Reaction Status Date / Time codeine Allergy Nausea & Verified 02/20/18 20:27 Vomiting Penicillins Allergy Rash/Hives Verified 02/20/18 20:27 phenobarbital AdvReac Unknown Verified 02/20/18 20:27 phenytoin sodium AdvReac Unknown Verified 02/20/18 20:27 [From Dilantin] phenytoin sodium extended AdvReac Unknown Verified 02/20/18 20:27 [From Dilantin] primidone [From Mysoline] AdvReac Unknown Verified 02/20/18 20:27 Physical Exam Vitals: Vital Signs Temp Pulse Pulse Pulse Resp BP Pulse Ox 02/22/18 06:55 97.9 F 94 12 110/76 96 02/22/18 04:12 20 02/22/18 01:30 98 111/73 02/21/18 23:44 18 02/21/18 23:38 98.1 F 97 16 170/86 95 02/21/18 19:31 104 H 22 02/21/18 19:19 98.5 F 102 H 16 154/76 94 L 02/21/18 16:00 16 02/21/18 14:38 97.8 F 101 H 16 133/82 95 02/21/18 12:06 98.4 F 99 16 137/85 95 Intake and Output 02/21/18 02/22/18 02/22/18 22:59 06:59 14:59 Intake Total 480 200 Balance 480 200 Intake: Oral 480 200 Other: Voiding Method Bedpan Bedpan # Voids 1 2 Results 02/20/18 23:05 02/22/18 07:59 Cardiac Enzymes 02/21/18 Range/Units 18:17 Troponin I <0.012 (0.000-0.034) ng/mL Comprehensive Metabolic Panel 02/22/18 Range/Units 07:59 Sodium 140 (137-145) mmol/L Potassium 5.0 (3.5-5.1) mmol/L Chloride 107 (98-107) mmol/L Carbon Dioxide 28 (22-30) mmol/L BUN 30 H (7-17) mg/dL Creatinine 1.14 H (0.52-1.04) mg/dL Glucose 76 (74-99) mg/dL Calcium 9.0 (8.4-10.2) mg/dL Current Medications Generic Name Dose Route Start Last Admin Trade Name Freq PRN Reason Stop Dose Admin Hydrocodone Bitart/Acetaminophen 1 each 02/21/18 11:00 02/22/18 06:13 [place] 7.5-325 PO 1 each Q6H ROS Administration Alprazolam 0.25 mg 02/21/18 09:29 Xanax PO Q6HR PRN Anxiety Anastrozole 1 mg 02/22/18 09:00 02/22/18 09:20 Arimidex PO 1 mg DAILY@0900 ROS Administration Aspirin 81 mg 02/22/18 09:00 02/22/18 09:20 Aspirin PO 81 mg DAILY@0900 ROS Administration Cyclobenzaprine HCl 10 mg 02/21/18 14:00 02/22/18 06:13 Flexeril PO 10 mg TID@0600,1400,2200 ROS Administration Darbepoetin Gurwinder 40 mcg 02/27/18 09:00 Aranesp SQ TU@0900 ROS Diphenhydramine HCl 50 mg 02/21/18 21:00 02/21/18 21:46 Benadryl PO 50 mg HS@2100 [facility] Administration Docusate Sodium 100 mg 02/22/18 09:00 02/22/18 09:21 Colace PO 100 mg DAILY@0900 [facility] Administration Duloxetine HCl 20 mg 02/22/18 09:00 02/22/18 09:21 Cymbalta PO 20 mg DAILY@0900 [facility] Administration Ferrous Sulfate 325 mg 02/21/18 17:00 02/21/18 16:43 Feosol PO Not Given DAILY@1700 [facility] Vancomycin HCl 2,250 mg/ 500 mls @ 167 mls/hr 02/21/18 10:00 02/22/18 09:22 Sodium Chloride IVPB 167 mls/hr Q24H [facility] Administration Insulin Aspart 30 unit 02/21/18 12:00 02/22/18 07:37 Novolog SQ Not Given TID@0800,1200,1700 [facility] Insulin Aspart 0 unit 02/21/18 12:30 02/22/18 07:37 Novolog SQ Not Given ACHS [facility] Protocol Insulin Detemir 70 unit 02/21/18 21:00 02/21/18 21:46 Levemir SQ 70 unit HS@2100 [facility] Administration Lorazepam 1 mg 02/21/18 10:57 Ativan PO HS PRN Anxiety Magnesium Hydroxide 2,400 mg 02/21/18 18:29 02/22/18 09:21 Milk Of Magnesia PO 2,400 mg DAILY PRN Administration Constipation Morphine Sulfate 4 mg 02/21/18 07:17 02/21/18 09:15 Morphine Sulfate (Inj) IVP 4 mg Q4HR PRN Administration Pain Naloxone HCl 0.2 mg 02/21/18 09:29 Narcan IV Q2M PRN Opioid Reversal Nitroglycerin 0.4 mg 02/21/18 18:29 Nitrostat SUBLINGUAL Q5M PRN Chest Pain Ondansetron HCl 4 mg 02/21/18 09:29 02/21/18 21:11 Zofran IVP 4 mg Q8HR PRN Administration Nausea And Vomiting Sodium Bicarbonate 650 mg 02/21/18 21:00 02/22/18 09:20 Sodium Bicarbonate Tab PO 650 mg BID@0900,2100 [facility] Administration Intake and Output 02/21/18 02/22/18 02/22/18 22:59 06:59 14:59 Intake Total 480 200 Balance 480 200 Intake: Oral 480 200 Other: Voiding Method Bedpan Bedpan # Voids 1 2 02/20/18 23:05 02/22/18 07:59
[2018-02-22] MEDS ORDERED: METOPROLOL TARTRATE 50 MG TAB PO STA (12:51)
[2018-02-22 15:53] VITALS: BMI 57.6
[2018-02-22 17:07] LABS: Glucose,Whole Blood 87 mg/dL (75-99)
[2018-02-22] MEDS: FERROUS SULFATE 325 MG TAB PO SCH (17:22)
[2018-02-22] MEDS: CALCIUM CARBONATE 500 MG CHEWABLE PO PRN (17:22)
--- NOTE | 2018-02-22 20:16 | P.GSCN ---
History of Present Illness Consult date: 02/22/18 History of present illness: Patient reports 1 week moderate bilateral lower abdominal pain with occasional epigastric pain. At the time of my evaluation, no significant abdominal pain. She has diffuse edema. Additionally she is lethargic and slow in cognition. Recommend obtaining CT of the abdomen and pelvis. Past Medical History Past Medical History: Cancer, COPD, Diabetes Mellitus, Fibromyalgia, Hyperlipidemia, Hypertension, Renal Disease, Rheumatoid Arthritis (RA), Seizure Disorder, Supraventricular Tachycardia (SVT) Additional Past Medical History / Comment(s): IDDM type II, neuropathy bilateral legs/feet and hands, past cellulitis leg, R breast cancer with surgery and chemo, seizures with last time "years" ago, UTI, CKD, UTIs, chronic anemia History of Any Multi-Drug Resistant Organisms: None Reported Past Surgical History: Adenoidectomy, Appendectomy, Breast Surgery, Cholecystectomy, Hysterectomy, Orthopedic Surgery, Tonsillectomy, Tubal Ligation Additional Past Surgical History / Comment(s): masectomy right, ganglion cyst right hand, total hysterectomy (hx of tubal pregnancies), lower teeth extracted. Past Anesthesia/Blood Transfusion Reactions: No Reported Reaction Smoking Status: Light tobacco smoker - Past Family History Father Family Medical History: Cancer, CVA/TIA Additional Family Medical History / Comment(s): 2000 from lung cancer Mother Family Medical History: Cancer, Dementia Additional Family Medical History / Comment(s): 2014 at age 86. Oral & Breast cancer Brother(s) Family Medical History: Asthma, Diabetes Mellitus, Fibromyalgia, Osteoarthritis (OA) Additional Family Medical History / Comment(s): Obesity. Joint replacements Medications and Allergies Home Medications Medication Instructions Recorded Confirmed Type Fluticasone/Salmeterol [Advair 1 puff INHALATION RT-DAILY@0906/24/14 History 100-50 Diskus] Anastrozole [Arimidex] 1 mg PO DAILY@0900 09/30/14 02/20/18 History diphenhydrAMINE HCL [Benadryl] 50 mg PO HS@2100 12/16/17 02/20/18 History Cyclobenzaprine [Flexeril] 10 mg PO TID@0600,1400,2200 01/08/18 02/20/18 History Acetaminophen Tab [Tylenol Tab] 650 mg PO Q4H PRN 02/20/18 02/20/18 History Aspirin 81 mg PO DAILY@0900 02/20/18 02/20/18 History Clindamycin HCl 300 mg PO Q6H 02/20/18 02/20/18 History DULoxetine HCL [Cymbalta] 20 mg PO DAILY@0900 02/20/18 02/20/18 History Darbepoetin Gurwinder [Aranesp] 40 mcg SQ TU@0902/20/18 02/20/18 History Docusate [Colace] 100 mg PO DAILY@0902/20/18 02/20/18 History Ferrous Sulfate [Feosol] 325 mg PO DAILY@1700 02/20/18 02/20/18 History Furosemide [Lasix] 20 mg PO DAILY@89902/20/18 02/20/18 History HYDROcodone/APAP 7.5-325MG [[place] 1 tab PO Q6H 02/20/18 02/20/18 History 7.5-325] INSULIN LISPRO (HumaLOG) [HumaLOG] 30 units SQ TID@0800,1200,1700 02/20/1802/20 History Insulin Glargine,Hum.rec.anlog 70 unit SQ HS@209902/20/18 02/20/18 History [Basaglar Kwikpen U-100] LORazepam [Ativan] 1 mg PO HS PRN 02/20/18 02/20/18 History Ondansetron [Zofran] 4 mg PO Q8HR PRN 02/20/18 02/20/18 History Sodium Bicarbonate Tab 650 mg PO BID@0900,2100 02/20/18 02/20/18 History Allergies Allergy/AdvReac Type Severity Reaction Status Date / Time codeine Allergy Nausea & Verified 02/20/18 20:27 Vomiting Penicillins Allergy Rash/Hives Verified 02/20/18 20:27 phenobarbital AdvReac Unknown Verified 02/20/18 20:27 phenytoin sodium AdvReac Unknown Verified 02/20/18 20:27 [From Dilantin] phenytoin sodium extended AdvReac Unknown Verified 02/20/18 20:27 [From Dilantin] primidone [From Mysoline] AdvReac Unknown Verified 02/20/18 20:27 Surgical - Exam Vital Signs Temp Pulse Resp BP Pulse Ox 98.1 F 104 H 16 134/87 100 02/20/18 19:55 02/20/18 19:55 02/20/18 19:55 02/20/18 19:55 02/20/18 19:55 Results - Labs 02/20/18 23:05 02/22/18 07:59 Abnormal Lab Results - Last 24 Hours (Table) 02/21/18 02/22/18 Range/Units 20:06 07:59 BUN 30 H (7-17) mg/dL Creatinine 1.14 H (0.52-1.04) mg/dL POC Glucose (mg/dL) 163 H (75-99) mg/dL Diabetes panel 02/20/18 02/22/18 Range/Units 23:05 07:59 Sodium 140 (137-145) mmol/L Potassium 5.0 (3.5-5.1) mmol/L Chloride 107 (98-107) mmol/L Carbon Dioxide 28 (22-30) mmol/L BUN 30 H (7-17) mg/dL Creatinine 1.14 H (0.52-1.04) mg/dL Glucose 76 (74-99) mg/dL Hemoglobin A1c 4.4 (4.0-6.0) % Calcium 9.0 (8.4-10.2) mg/dL Calcium panel 02/22/18 Range/Units 07:59 Calcium 9.0 (8.4-10.2) mg/dL Pituitary panel 02/22/18 Range/Units 07:59 Sodium 140 (137-145) mmol/L Potassium 5.0 (3.5-5.1) mmol/L Chloride 107 (98-107) mmol/L Carbon Dioxide 28 (22-30) mmol/L BUN 30 H (7-17) mg/dL Creatinine 1.14 H (0.52-1.04) mg/dL Glucose 76 (74-99) mg/dL Calcium 9.0 (8.4-10.2) mg/dL Adrenal panel 02/22/18 Range/Units 07:59 Sodium 140 (137-145) mmol/L Potassium 5.0 (3.5-5.1) mmol/L Chloride 107 (98-107) mmol/L Carbon Dioxide 28 (22-30) mmol/L BUN 30 H (7-17) mg/dL Creatinine 1.14 H (0.52-1.04) mg/dL Glucose 76 (74-99) mg/dL Calcium 9.0 (8.4-10.2) mg/dL
[2018-02-22 20:25] LABS: Glucose,Whole Blood 106 mg/dL (75-99)
[2018-02-22] MEDS: diphenhydrAMINE 25 MG CAP PO SCH (20:37)
[2018-02-22] MEDS: INSULIN DETEMIR 100 UNIT/ML 10 ML VIAL SQ SCH (20:37)
[2018-02-22] MEDS: METOPROLOL TARTRATE 25 MG TAB PO SCH (20:37)
[2018-02-23] MEDS: HYDROcodone/APAP 7.5-325MG 1 EACH TAB PO SCH ×4 (05:23→23:14)
[2018-02-23] MEDS: CYCLOBENZAPRINE 10 MG TAB PO SCH ×3 (05:23→21:11)
[2018-02-23 07:32] LABS: Glucose,Whole Blood 97 mg/dL (75-99)
[2018-02-23] MEDS: INSULIN ASPART 100 UNIT/ML 1 ML 10 ML VIAL SQ SCH ×7 (08:13→21:05)
[2018-02-23] MEDS: MAGNESIUM HYDROXIDE 2,400 MG/10 ML CUP PO PRN (08:21)
[2018-02-23] MEDS: CALCIUM CARBONATE 500 MG CHEWABLE PO PRN (08:21)
[2018-02-23] MEDS: METOPROLOL TARTRATE 50 MG TAB PO SCH (08:21)
[2018-02-23] MEDS: SODIUM BICARBONATE TAB 650 MG TAB PO SCH ×2 (08:22→21:11)
[2018-02-23] MEDS: ANASTROZOLE 1 MG TAB PO SCH (08:22)
[2018-02-23] MEDS: DOCUSATE 100 MG CAP PO SCH (08:22)
[2018-02-23] MEDS: ASPIRIN 81 MG PO SCH (08:22)
[2018-02-23] MEDS: VANCOMYCIN 2,250 MG in SODIUM CHLORIDE 0.9% 500 ML 500 ML IVPB SCH (10:57)
[2018-02-23] MEDS: IOPAMIDOL-300 CONTRAST 30 ML VIAL (ORAL USE) PO PRN ×2 (10:57→14:34)
[2018-02-23 12:04] LABS: Glucose,Whole Blood 110 mg/dL (75-99)
--- NOTE | 2018-02-23 12:23 | P.PN ---
<Ernestina Montiel Lobito - Last Filed: 02/23/18 12:13> Subjective Progress Note Date: 02/23/18 68-year-old female admitted to the hospital with bilateral lower summary cellulitis. General surgery is on consult for abdominal pain. Patient denies abdominal pain at this time. She does have some mild tenderness to palpation. Tolerating PO intake. Denies nausea or vomiting. PHYSICAL EXAM: GENERAL: This is a 68-year-old female in no apparent distress at the time of examination. HEENT: Head is atraumatic, normocephalic. Pupils are equal, round, and reactive to light. Sclerae anicteric. Conjunctivae are clear. RESPIRATORY: Nonlabored respirations and equal bilateral excursions. CARDIOVASCULAR: Regular rate and rhythm. GASTROINTESTINAL: Obese. No distention noted. Abdomen soft and round. Normal active bowel sounds auscultated x 4 quadrants. Mild tenderness noted upon palpation. INTEGUMENTARY: No cyanosis. No jaundice. No rashes noted. No cellulitis noted. EXTREMITIES: 2+ peripheral pulses. NEUROLOGIC: No focal or lateralizing signs. PSYCHIATRIC: Awake, alert, and oriented X 3. ASSESSMENT: Abdominal pain, etiology unclear Cellulitis of bilateral lower extremities History of breast cancer Severe morbid obesity: BMI 57.6 PLAN: Obtain CT abomen/pelvis with contrast. Further recommendations pending CT results. Nurse practitioner note has been reviewed by physician. Signing provider agrees with the documented findings, assessment, and plan of care. Objective - Vital Signs Vital signs: Vital Signs Temp 97.8 F 02/23/18 06:59 Pulse 104 H 02/23/18 08:14 Resp 12 02/23/18 06:59 BP 115/70 02/23/18 06:59 Pulse Ox 95 02/23/18 06:59 Intake & Output 02/22/18 02/23/18 02/23/18 18:59 06:59 18:59 Intake Total 825 200 Balance 825 200 Weight 152.271 kg 152.271 kg Intake: Intake, IV Titration 500 Amount Vancomycin 2,250 mg In 500 Sodium Chloride 0.9% 500 ml 500 ml @ 167 mls/hr IVPB Q24H ROS Rx#: [id number] Oral 325 200 Other: Voiding Method Bedside Commode Bedside Commode Bedside Commode # Voids 1 2 - Labs CBC & Chem 7: 02/20/18 23:05 02/22/18 07:59 Labs: Abnormal Lab Results - Last 24 Hours (Table) 02/22/18 02/23/18 Range/Units 20:13 11:45 POC Glucose (mg/dL) 106 H 110 H (75-99) mg/dL Microbiology - Last 24 Hours (Table) 02/22/18 16:30 Gram Stain - Preliminary Breast - Right Wound Culture - Preliminary 02/22/18 17:04 Anaerobic Culture - Preliminary Breast - Right Assessment and Plan (1) Abdominal pain Current Visit: Yes Status: Acute Code(s): R10.9 - UNSPECIFIED ABDOMINAL PAIN SNOMED Code(s): 59581655 (2) Cellulitis of both lower extremities Current Visit: Yes Status: Acute Code(s): L03.115 - CELLULITIS OF RIGHT LOWER LIMB; L03.116 - CELLULITIS OF LEFT LOWER LIMB SNOMED Code(s): 054150160 (3) Obesity Current Visit: No Status: Acute Code(s): E66.9 - OBESITY, UNSPECIFIED SNOMED Code(s): 159866528 <Patricia Garcia N - Last Filed: 02/25/18 11:30> Objective - Vital Signs Vital signs: Vital Signs Temp 98.2 F 02/25/18 07:00 Pulse 67 02/25/18 07:14 Resp 12 02/25/18 07:14 BP 108/67 02/25/18 07:00 Pulse Ox 93 L 02/25/18 07:00 Intake & Output 02/24/18 02/25/18 02/25/18 18:59 06:59 18:59 Intake Total 270 Balance 270 Intake: Oral 270 Other: Voiding Method Bedside Commode Bedside Commode Bedside Commode # Voids 1 1 # Bowel Movements 0 - Labs CBC & Chem 7: 02/25/18 07:04 02/25/18 07:04 Labs: Abnormal Lab Results - Last 24 Hours (Table) 02/24/18 02/24/18 02/25/18 Range/Units 12:05 22:10 07:04 RBC (3.80-5.40) m/uL Hgb (11.4-16.0) gm/dL Hct (34.0-46.0) % RDW (11.5-15.5) % Plt Count (150-450) k/uL Potassium (3.5-5.1) mmol/L BUN (7-17) mg/dL Creatinine (0.52-1.04) mg/dL POC Glucose (mg/dL) 101 H 104 H (75-99) mg/dL Vancomycin Trough 30.6 H* ug/mL 02/25/18 02/25/18 Range/Units 07:04 07:04 RBC 2.90 L (3.80-5.40) m/uL Hgb 9.2 L (11.4-16.0) gm/dL Hct 28.6 L (34.0-46.0) % RDW 17.8 H (11.5-15.5) % Plt Count 142 L (150-450) k/uL Potassium 5.5 H (3.5-5.1) mmol/L BUN 40 H (7-17) mg/dL Creatinine 2.14 H (0.52-1.04) mg/dL POC Glucose (mg/dL) (75-99) mg/dL Vancomycin Trough ug/mL Microbiology - Last 24 Hours (Table) 02/22/18 17:04 Anaerobic Culture - Preliminary Breast - Right 02/22/18 16:30 Gram Stain - Final Breast - Right Wound Culture - Final
[2018-02-23] MEDS ORDERED: LIDOCAINE 1% INJ 10MG/ML (20 ML MDV) SQ ONE (13:34)
--- NOTE | 2018-02-23 14:18 | P.PN ---
Subjective Progress Note Date: 02/23/18 Principal diagnosis: Cellulitis bilateral lower extremities Abdominal pain with ascites 68-year-old female patient admitted to the hospital with bilateral lower extremity cellulitis along with abdominal pain/ascites Patient remains on IV antibiotics for lower extremity cellulitis; surgery is on board for evaluation of abdominal pain and is recommending CT of the abdomen for further evaluation Objective - Vital Signs Vital signs: Vital Signs Temp 97.8 F 02/23/18 06:59 Pulse 104 H 02/23/18 08:14 Resp 12 02/23/18 06:59 BP 115/70 02/23/18 06:59 Pulse Ox 95 02/23/18 06:59 Intake & Output 02/22/18 02/23/18 02/23/18 18:59 06:59 18:59 Intake Total 825 600 Balance 825 600 Weight 152.271 kg 152.271 kg Intake: Intake, IV Titration 500 Amount Vancomycin 2,250 mg In 500 Sodium Chloride 0.9% 500 ml 500 ml @ 167 mls/hr IVPB Q24H [facility] Rx#: [id number] Oral 325 600 Other: Voiding Method Bedside Commode Bedside Commode Bedside Commode # Voids 1 2 - Exam - Constitutional General appearance: morbidly obese - EENT Eyes: PERRLA Ears: bilateral: normal - Neck Neck: normal ROM - Respiratory Respiratory: right: rales - Cardiovascular Rhythm: regular Abnormal Heart Sounds: systolic murmur - Gastrointestinal General gastrointestinal: soft Localized gastrointestinal: tender: diffuse - Integumentary Cellulitis of lower extremities open wound to right axilla Integumentary: cellulitis - Musculoskeletal Musculoskeletal: generalized weakness - Psychiatric Psychiatric: A&O x's 3, appropriate affect, intact judgment & insight - Labs CBC & Chem 7: 02/20/18 23:05 02/22/18 07:59 Labs: Abnormal Lab Results - Last 24 Hours (Table) 02/22/18 02/23/18 Range/Units 20:13 11:45 POC Glucose (mg/dL) 106 H 110 H (75-99) mg/dL Microbiology - Last 24 Hours (Table) 02/22/18 16:30 Gram Stain - Preliminary Breast - Right Wound Culture - Preliminary 02/22/18 17:04 Anaerobic Culture - Preliminary Breast - Right Assessment and Plan Assessment: 1. Cellulitis bilateral lower extremity - Continue vancomycin to 2250 mg IV every 24 hours with pharmacy dosing service - We will monitor CBC and electrolytes closely 2. Abdominal pain/ascites - Abdominal pain is currently consult - Patient has been seen by surgical service and is recommended to have CT of abdomen and pelvis 3. Chest pain - Cardiology is on board; consult and recommendations are pending 4. Diabetes mellitus type 2 - Continue with Lantus 70 units subcu daily at bedtime - Patient remains on Accu-Cheks every before meals and at bedtime along with insulin lispro 3 units subcu 3 times a day 5. Hypertension - Patient takes metoprolol 50 mg daily 6. COPD; stable on Advair 1050 1 puff daily 7. Seizure disorder 8. DVT prophylaxis CODE STATUS; full code Time with Patient: Greater than 30
--- NOTE | 2018-02-23 14:32 | IR ---
EXAMINATION TYPE: IR cvc insert >=5 years DATE OF EXAM: 02/23/2018 COMPARISON: NONE CLINICAL HISTORY: Infection Needs long-term intravenous access for antibiotics. PROCEDURE: After informed consent, the skin overlying the left basilic vein was localized with ultrasound and no zach to be compressible and patent. An ultrasound image was obtained and submitted on the patient's c carty. The overlying skin was prepped and draped and Lidocaine was used for local anesthesia. A skin zahra was made with a scalpel. Access was gained to the vein under ultrasound guidance with a 21 gau ge needle and a 0.018 inch wire was advanced. Access site was dilated with Peel-Away sheath and cath eter tailored to the appropriate length and advanced such that the distal tip is at the cavoatrial ju nction. Spot image was obtained verifying placement. Catheter was fixed to the skin and a sterile d ressing was placed following hemostasis. Catheter was aspirated and flushed with saline. Patient wa s discharged in stable condition without complication. Maximal barrier technique is utilized. Ultras ound image is documented on the chart. Ultrasound used with sterile technique. Fluoro time and fluoroscopic images submitted to document procedure: 0.5 minutes fluoroscopy time, 81 intraoperative images IMPRESSION: STATUS POST ULTRASOUND AND FLUOROSCOPIC GUIDED PICC LINE PLACEMENT, READY FOR USE. THIS PROCEDURE WAS PERFORMED BY THE UNDERSIGNED.
--- NOTE | 2018-02-23 16:44 | CT ---
EXAMINATION TYPE: CT abdomen pelvis w con DATE OF EXAM: 02/23/2018 COMPARISON: 10/09/2011 HISTORY: Abdominal pain. CT DLP: 3476 mGycm Automated exposure control for dose reduction was used. CONTRAST: CT scan of the abdomen pelvis is performed with IV Contrast, patient injected with 100 mL of Isovue 3 00. FINDINGS- LUNG BASES-there is bilateral pleural effusions.. LIVER/GB-there is somewhat heterogeneous in attenuation. Surgical clips are seen in the gallbladder f rupinder.. PANCREAS- No gross abnormality is seen. SPLEEN-the spleen is enlarged and there are splenic varices.. ADRENALS- No gross abnormality is seen. KIDNEYS/BLADDER- no hydronephrosis nephrolithiasis or renal mass. BOWEL-gas pattern is nonspecific. Retained fecal debris in the colon.. Mild wall thickening to the ri ght colon. LYMPH NODES- No greater than 1cm abdominal or pelvic lymph nodes areappreciated. OSSEOUS STRUCTURES-arthropathy of the hips. Hypertrophic and degenerative change of the vertebral col umn. Arthropathy of the SI joints. OTHER- evidence of ascites noted. Atherosclerotic change of the aorta. Contrast in the bladder seen. Diffuse anasarca noted. Small anterior abdominal wall hernia noted. Atherosclerotic change aorta. Th ere appears to be evidence of splenic varices. IMPRESSION- 1. Ascites, anasarca, splenomegaly and heterogeneous pattern of liver correlate for cirrhosis or diff use hepatocellular disease. 2. Nonspecific abdomen. 3. Small anterior abdominal wall hernia. 4. Wall thickening involving the right colon is nonspecific may be related to incomplete distention r ather than mild colitis or mucosal lesion correlate clinically.
[2018-02-23 17:23] LABS: Glucose,Whole Blood 84 mg/dL (75-99)
[2018-02-23] MEDS: FERROUS SULFATE 325 MG TAB PO SCH (17:42)
[2018-02-23 20:29] LABS: Glucose,Whole Blood 105 mg/dL (75-99)
[2018-02-23] MEDS: diphenhydrAMINE 25 MG CAP PO SCH (21:11)
[2018-02-23] MEDS: INSULIN DETEMIR 100 UNIT/ML 10 ML VIAL SQ SCH (21:11)
[2018-02-23] MEDS: METOPROLOL TARTRATE 25 MG TAB PO SCH (21:11)
[2018-02-24] MEDS: HYDROcodone/APAP 7.5-325MG 1 EACH TAB PO SCH ×3 (06:24→17:51)
[2018-02-24] MEDS: CYCLOBENZAPRINE 10 MG TAB PO SCH ×3 (06:25→23:17)
[2018-02-24 07:11] LABS: Glucose,Whole Blood 59 mg/dL (75-99)
[2018-02-24 07:28] LABS: Glucose,Whole Blood 67 mg/dL (75-99)
[2018-02-24 07:43] LABS: Glucose,Whole Blood 73 mg/dL (75-99)
[2018-02-24 08:36] LABS: Calcium 9.1 mg/dL (8.4-10.2); Potassium 5.2 mmol/L (3.5-5.1)
[2018-02-24] MEDS: INSULIN ASPART 100 UNIT/ML 1 ML 10 ML VIAL SQ SCH ×7 (08:40→22:34)
[2018-02-24] MEDS: ANASTROZOLE 1 MG TAB PO SCH (08:41)
[2018-02-24 08:42] LABS: Anisocytosis Slight; Basophils # (A) 0.1 k/uL (0-0.2); Basophils % (A) 1 %; Eosinophils # (A) 0.2 k/uL (0-0.7); Eosinophils % (A) 4 %; HCT 29.1 % (34.0-46.0); HGB 9.2 gm/dL (11.4-16.0); Hypochromasia Slight; Lymphocytes # (A) 1.4 k/uL (1.0-4.8); Lymphocytes % (A) 25 %; MCH 31.6 pg (25.0-35.0); MCHC 31.8 g/dL (31.0-37.0); MCV 99.4 fL (80.0-100.0); Macrocytosis Slight; Mean Platelet Volume 7.3; Monocytes # (A) 0.5 k/uL (0-1.0); Monocytes % (A) 9 %; Neutrophils # (A) 3.5 k/uL (1.3-7.7); Neutrophils % (A) 60 %; Platelet Count 145 k/uL (150-450); RBC 2.93 m/uL (3.80-5.40); RDW 18.1 % (11.5-15.5); WBC 5.8 k/uL (3.8-10.6)
[2018-02-24] MEDS: METOPROLOL TARTRATE 50 MG TAB PO SCH (08:44)
[2018-02-24] MEDS: SODIUM BICARBONATE TAB 650 MG TAB PO SCH ×2 (08:44→22:41)
[2018-02-24] MEDS: DOCUSATE 100 MG CAP PO SCH (08:45)
[2018-02-24] MEDS: ASPIRIN 81 MG PO SCH (08:50)
[2018-02-24] MEDS: MAGNESIUM HYDROXIDE 2,400 MG/10 ML CUP PO PRN (08:54)
[2018-02-24] MEDS: VANCOMYCIN 2,250 MG in SODIUM CHLORIDE 0.9% 500 ML 500 ML IVPB SCH (08:57)
[2018-02-24 10:25] LABS: Polychromasia Present
[2018-02-24 12:18] LABS: Glucose,Whole Blood 101 mg/dL (75-99)
[2018-02-24] MEDS: VANCOMYCIN IV PER PHARMACY 1 EACH MISC MISCELLANE SCH (13:49)
--- NOTE | 2018-02-24 15:44 | P.PN ---
Subjective Progress Note Date: 02/24/18 Principal diagnosis: Cellulitis bilateral lower extremities Abdominal pain with ascites 68-year-old female patient admitted to the hospital with bilateral lower extremity cellulitis along with abdominal pain/ascites Patient remains on IV antibiotics for lower extremity cellulitis; surgery is on board for evaluation of abdominal pain and is recommending CT of the abdomen for further evaluation 02/24/2018 Patient is seen and evaluated in the room at bedside Vital signs remained stable CT of abdomen and pelvis reviewed with patient; recommend GI evaluation and patient is agreeable Objective - Vital Signs Vital signs: Vital Signs Temp 97.6 F 02/24/18 07:00 Pulse 65 02/24/18 08:00 Resp 18 02/24/18 08:00 BP 108/71 02/24/18 07:00 Pulse Ox 100 02/24/18 07:00 Intake & Output 02/23/18 02/24/18 02/24/18 18:59 06:59 18:59 Intake Total 600 300 Balance 600 300 Weight 152.271 kg Intake: Oral 600 300 Other: Voiding Method Bedside Commode Bedside Commode Bedside Commode # Voids 0 - Exam - Constitutional General appearance: morbidly obese - EENT Eyes: PERRLA Ears: bilateral: normal - Neck Neck: normal ROM - Respiratory Respiratory: right: rales - Cardiovascular Rhythm: regular Abnormal Heart Sounds: systolic murmur - Gastrointestinal General gastrointestinal: soft Localized gastrointestinal: tender: diffuse - Integumentary Cellulitis of lower extremities open wound to right axilla Integumentary: cellulitis - Musculoskeletal Musculoskeletal: generalized weakness - Psychiatric Psychiatric: A&O x's 3, appropriate affect, intact judgment & insight - Labs CBC & Chem 7: 02/24/18 07:17 02/24/18 07:17 Labs: Abnormal Lab Results - Last 24 Hours (Table) 02/23/18 02/24/18 02/24/18 Range/Units 20:17 06:57 07:16 RBC (3.80-5.40) m/uL Hgb (11.4-16.0) gm/dL Hct (34.0-46.0) % RDW (11.5-15.5) % Plt Count (150-450) k/uL Potassium (3.5-5.1) mmol/L BUN (7-17) mg/dL Creatinine (0.52-1.04) mg/dL Glucose (74-99) mg/dL POC Glucose (mg/dL) 105 H 59 L 67 L (75-99) mg/dL 02/24/18 02/24/18 02/24/18 Range/Units 07:17 07:17 07:32 RBC 2.93 L (3.80-5.40) m/uL Hgb 9.2 L (11.4-16.0) gm/dL Hct 29.1 L (34.0-46.0) % RDW 18.1 H (11.5-15.5) % Plt Count 145 L (150-450) k/uL Potassium 5.2 H (3.5-5.1) mmol/L BUN 38 H (7-17) mg/dL Creatinine 2.08 H (0.52-1.04) mg/dL Glucose 66 L (74-99) mg/dL POC Glucose (mg/dL) 73 L (75-99) mg/dL 02/24/18 Range/Units 12:05 RBC (3.80-5.40) m/uL Hgb (11.4-16.0) gm/dL Hct (34.0-46.0) % RDW (11.5-15.5) % Plt Count (150-450) k/uL Potassium (3.5-5.1) mmol/L BUN (7-17) mg/dL Creatinine (0.52-1.04) mg/dL Glucose (74-99) mg/dL POC Glucose (mg/dL) 101 H (75-99) mg/dL Assessment and Plan Assessment: 1. Cellulitis bilateral lower extremity - Continue vancomycin to 2250 mg IV every 24 hours with pharmacy dosing service - We will monitor CBC and electrolytes closely 2. Abdominal pain/ascites - Abdominal pain is currently consult - Patient has been seen by surgical service and is recommended to have CT of abdomen and pelvis 3. Chest pain - Cardiology is on board; consult and recommendations are pending 4. Diabetes mellitus type 2 - Continue with Lantus 70 units subcu daily at bedtime - Patient remains on Accu-Cheks every before meals and at bedtime along with insulin lispro 3 units subcu 3 times a day 5. Hypertension - Patient takes metoprolol 50 mg daily 6. COPD; stable on Advair 1050 1 puff daily 7. Seizure disorder 8. DVT prophylaxis CODE STATUS; full code
[2018-02-24 17:05] LABS: Glucose,Whole Blood 83 mg/dL (75-99)
[2018-02-24] MEDS: FERROUS SULFATE 325 MG TAB PO SCH (17:51)
[2018-02-24 20:07] LABS: Glucose,Whole Blood 89 mg/dL (75-99)
[2018-02-24 22:20] LABS: Glucose,Whole Blood 104 mg/dL (75-99)
[2018-02-24] MEDS: diphenhydrAMINE 25 MG CAP PO SCH (22:40)
[2018-02-24] MEDS: METOPROLOL TARTRATE 25 MG TAB PO SCH (22:41)
[2018-02-24] MEDS: INSULIN DETEMIR 100 UNIT/ML 10 ML VIAL SQ SCH (22:41)
[2018-02-25] MEDS: HYDROcodone/APAP 7.5-325MG 1 EACH TAB PO SCH ×5 (01:54→23:35)
[2018-02-25 07:17] LABS: Glucose,Whole Blood 91 mg/dL (75-99)
[2018-02-25] MEDS: INSULIN ASPART 100 UNIT/ML 1 ML 10 ML VIAL SQ SCH ×7 (07:19→20:45)
[2018-02-25 08:03] LABS: Anisocytosis Slight; Basophils % (A) 1 %; Eosinophils # (A) 0.3 k/uL (0-0.7); Eosinophils % (A) 5 %; HCT 28.6 % (34.0-46.0); HGB 9.2 gm/dL (11.4-16.0); Hypochromasia Slight; Lymphocytes # (A) 1.1 k/uL (1.0-4.8); Lymphocytes % (A) 22 %; MCH 31.8 pg (25.0-35.0); MCHC 32.3 g/dL (31.0-37.0); MCV 98.5 fL (80.0-100.0); Macrocytosis Slight; Mean Platelet Volume 7.1; Monocytes # (A) 0.5 k/uL (0-1.0); Monocytes % (A) 9 %; Neutrophils # (A) 3.1 k/uL (1.3-7.7); Neutrophils % (A) 61 %; Platelet Count 142 k/uL (150-450); RDW 17.8 % (11.5-15.5); WBC 5.2 k/uL (3.8-10.6)
[2018-02-25 08:27] LABS: Calcium 9.2 mg/dL (8.4-10.2); Potassium 5.5 mmol/L (3.5-5.1)
[2018-02-25] MEDS: CYCLOBENZAPRINE 10 MG TAB PO SCH ×3 (09:05→22:01)
[2018-02-25] MEDS: ANASTROZOLE 1 MG TAB PO SCH (09:08)
[2018-02-25] MEDS: SODIUM BICARBONATE TAB 650 MG TAB PO SCH ×2 (09:08→21:27)
[2018-02-25] MEDS: ASPIRIN 81 MG PO SCH (09:08)
[2018-02-25] MEDS: METOPROLOL TARTRATE 50 MG TAB PO SCH (09:08)
[2018-02-25] MEDS: DOCUSATE 100 MG CAP PO SCH (09:08)
--- NOTE | 2018-02-25 11:16 | P.PN ---
Subjective Progress Note Date: 02/25/18 Principal diagnosis: Cellulitis bilateral lower extremities Abdominal pain with ascites 68-year-old female patient admitted to the hospital with bilateral lower extremity cellulitis along with abdominal pain/ascites Patient remains on IV antibiotics for lower extremity cellulitis; surgery is on board for evaluation of abdominal pain and is recommending CT of the abdomen for further evaluation 02/24/2018 Patient is seen and evaluated in the room at bedside Vital signs remained stable CT of abdomen and pelvis reviewed with patient; recommend GI evaluation and patient is agreeable 02/25/2018 Patient is seen and evaluated for follow-up in the room at bedside; patient's vital signs remained stable with a temperature of 98.2, pulse 67, respiratory rate of 12 with SpO2 of 93% on room air. And blood pressure 108/67 Blood work reviewed shows a persistently elevated potassium level of 5.5 and worsening renal function with a B UN of 40 and creatinine of 2.14; we will monitor renal function and electrolytes, strict CINTHYA's; patient remains on IV vancomycin for bilateral lower extremities cellulitis; patient does show marked improvement in infection; we will switch patient to oral Augmentin and discontinue IV vancomycin in view of worsening renal function; we will consult nephrology for further recommendations on acute renal failure; GI service has been consulted for ascites and possible hepatocellular disease; GI input is pending and is appreciated Objective - Vital Signs Vital signs: Vital Signs Temp 98.2 F 02/25/18 07:00 Pulse 67 02/25/18 07:14 Resp 12 02/25/18 07:14 BP 108/67 02/25/18 07:00 Pulse Ox 93 L 02/25/18 07:00 Intake & Output 02/24/18 02/25/18 02/25/18 18:59 06:59 18:59 Intake Total 270 Balance 270 Intake: Oral 270 Other: Voiding Method Bedside Commode Bedside Commode Bedside Commode # Voids 1 1 # Bowel Movements 0 - Exam - Constitutional General appearance: morbidly obese - EENT Eyes: PERRLA Ears: bilateral: normal - Neck Neck: normal ROM - Respiratory Respiratory: right: rales - Cardiovascular Rhythm: regular Abnormal Heart Sounds: systolic murmur - Gastrointestinal General gastrointestinal: soft Localized gastrointestinal: tender: diffuse - Integumentary Cellulitis of lower extremities open wound to right axilla Integumentary: cellulitis - Musculoskeletal Musculoskeletal: generalized weakness - Psychiatric Psychiatric: A&O x's 3, appropriate affect, intact judgment & insight - Labs CBC & Chem 7: 02/25/18 07:04 02/25/18 07:04 Labs: Abnormal Lab Results - Last 24 Hours (Table) 02/24/18 02/24/18 02/25/18 Range/Units 12:05 22:10 07:04 RBC (3.80-5.40) m/uL Hgb (11.4-16.0) gm/dL Hct (34.0-46.0) % RDW (11.5-15.5) % Plt Count (150-450) k/uL Potassium (3.5-5.1) mmol/L BUN (7-17) mg/dL Creatinine (0.52-1.04) mg/dL POC Glucose (mg/dL) 101 H 104 H (75-99) mg/dL Vancomycin Trough 30.6 H* ug/mL 02/25/18 02/25/18 Range/Units 07:04 07:04 RBC 2.90 L (3.80-5.40) m/uL Hgb 9.2 L (11.4-16.0) gm/dL Hct 28.6 L (34.0-46.0) % RDW 17.8 H (11.5-15.5) % Plt Count 142 L (150-450) k/uL Potassium 5.5 H (3.5-5.1) mmol/L BUN 40 H (7-17) mg/dL Creatinine 2.14 H (0.52-1.04) mg/dL POC Glucose (mg/dL) (75-99) mg/dL Vancomycin Trough ug/mL Microbiology - Last 24 Hours (Table) 02/22/18 17:04 Anaerobic Culture - Preliminary Breast - Right 02/22/18 16:30 Gram Stain - Final Breast - Right Wound Culture - Final Assessment and Plan Assessment: 1. Cellulitis bilateral lower extremity - Continue vancomycin to 2250 mg IV every 24 hours with pharmacy dosing service - We will monitor CBC and electrolytes closely 2. Abdominal pain/ascites - Abdominal pain is currently consult - Patient has been seen by surgical service and is recommended to have CT of abdomen and pelvis 3. Chest pain - Cardiology is on board; consult and recommendations are pending 4. Diabetes mellitus type 2 - Continue with Lantus 70 units subcu daily at bedtime - Patient remains on Accu-Cheks every before meals and at bedtime along with insulin lispro 3 units subcu 3 times a day 5. Hypertension - Patient takes metoprolol 50 mg daily 6. COPD; stable on Advair 1050 1 puff daily 7. Seizure disorder 8. DVT prophylaxis CODE STATUS; full code
--- NOTE | 2018-02-25 11:36 | P.PN ---
Subjective Progress Note Date: 02/24/18 CHIEF COMPLAINT: Abdominal pain HISTORY OF PRESENT ILLNESS: The patient is a 68-year-old female with super morbid obesity, BMI 57.6 admitted for chest pain, abdominal ascites and incidental abdominal pain. Today, she reports abdominal pain is not as significant. In fact, she is tolerating diet. She had completed her imaging study. PHYSICAL EXAM: VITAL SIGNS: Reviewed GENERAL: Well-developed in no acute distress. HEENT: No sclera icterus. Extraocular movements grossly intact. Moist buccal mucosa. Head is atraumatic, normocephalic. Hears conversational speech. No nasal drainage. NECK: Supple without lymphadenopathy. CHEST: Non-labored respirations and equal bilateral excursions. CARDIOVASCULAR: Palpable 2+ radial pulses. Regular rate and regular rhythm ABDOMEN: Soft. Protuberant and obese. No peritonitis. Minimal tenderness lower abdomen. MUSCULOSKELETAL: No clubbing, cyanosis NEUROLOGIC: No focal or lateralizing signs. Cranial nerves II through XII grossly intact. PSYCH: Slow affect. Alert to person. SKIN: Well perfused. Good skin turgor. LABS: Reviewed STUDIES: Reviewed ASSESSMENT: 1. Abdominal pain with incidental finding of ventral hernia PLAN: 1. No surgical intervention as patient has multiple comorbidities. 2. Imaging study reviewed demonstrating no involvement of small bowel. 3. May benefit from abdominal binder. 4. Diffuse ascites likely secondary to severity of liver disease. 5. Recommend GI consultation for advanced liver disease 6. Recommend adjustment of diet to low carb for underlying liver disease Objective - Vital Signs Vital signs: Vital Signs Temp 98.2 F 02/25/18 07:00 Pulse 67 02/25/18 07:14 Resp 12 02/25/18 07:14 BP 108/67 02/25/18 07:00 Pulse Ox 93 L 02/25/18 07:00 Intake & Output 02/24/18 02/25/18 02/25/18 18:59 06:59 18:59 Intake Total 270 Balance 270 Intake: Oral 270 Other: Voiding Method Bedside Commode Bedside Commode Bedside Commode # Voids 1 1 # Bowel Movements 0 - Labs CBC & Chem 7: 02/25/18 07:04 02/25/18 07:04 Labs: Abnormal Lab Results - Last 24 Hours (Table) 02/24/18 02/24/18 02/25/18 Range/Units 12:05 22:10 07:04 RBC (3.80-5.40) m/uL Hgb (11.4-16.0) gm/dL Hct (34.0-46.0) % RDW (11.5-15.5) % Plt Count (150-450) k/uL Potassium (3.5-5.1) mmol/L BUN (7-17) mg/dL Creatinine (0.52-1.04) mg/dL POC Glucose (mg/dL) 101 H 104 H (75-99) mg/dL Vancomycin Trough 30.6 H* ug/mL 02/25/18 02/25/18 Range/Units 07:04 07:04 RBC 2.90 L (3.80-5.40) m/uL Hgb 9.2 L (11.4-16.0) gm/dL Hct 28.6 L (34.0-46.0) % RDW 17.8 H (11.5-15.5) % Plt Count 142 L (150-450) k/uL Potassium 5.5 H (3.5-5.1) mmol/L BUN 40 H (7-17) mg/dL Creatinine 2.14 H (0.52-1.04) mg/dL POC Glucose (mg/dL) (75-99) mg/dL Vancomycin Trough ug/mL Microbiology - Last 24 Hours (Table) 02/22/18 17:04 Anaerobic Culture - Preliminary Breast - Right 02/22/18 16:30 Gram Stain - Final Breast - Right Wound Culture - Final - Imaging and Cardiology CT scan - abdomen: report reviewed (Imaging personally reviewed demonstrating ventral hernia fat containing. No signs of strangulation. No bowel obstruction or pneumoperitoneum noted), image reviewed CT scan - pelvis: report reviewed, image reviewed Assessment and Plan (1) Morbid obesity with BMI of 50.0-59.9, adult Current Visit: Yes Status: Acute Code(s): E66.01 - MORBID (SEVERE) OBESITY DUE TO EXCESS CALORIES; Z68.43 - BODY MASS INDEX (BMI) 50-59.9, ADULT SNOMED Code(s): 520577926 (2) Ventral hernia Current Visit: Yes Status: Acute Code(s): K43.9 - VENTRAL HERNIA WITHOUT OBSTRUCTION OR GANGRENE SNOMED Code(s): 070313625 (3) Ascites Current Visit: Yes Status: Acute Code(s): R18.8 - OTHER ASCITES SNOMED Code(s): 677325449 (4) History of breast cancer Current Visit: Yes Status: Acute Code(s): Z85.3 - PERSONAL HISTORY OF MALIGNANT NEOPLASM OF BREAST SNOMED Code(s): 143500608 (5) Abdominal pain Current Visit: Yes Status: Acute Code(s): R10.9 - UNSPECIFIED ABDOMINAL PAIN SNOMED Code(s): 87142920
[2018-02-25] MEDS ORDERED: DEXTROSE 50%-WATER 50 ML SYRINGE IVP STA (11:55)
[2018-02-25] MEDS ORDERED: INSULIN REGULAR 100 UNIT/ML VIAL IV ONE (11:55)
--- NOTE | 2018-02-25 12:13 | P.NPCON ---
History of Present Illness - Reason for Consult acute renal failure, chronic renal failure - History of Present Illness Reason for consultation: Acute kidney injury on chronic kidney disease. History of present illness: Patient is a 68-year-old female seen in consultation for acute kidney injury on chronic kidney disease. Patient has chronic kidney disease stage III with baseline creatinine in the range of 1.1-1.4 secondary to diabetic kidney disease. Patient presented to the hospital with lower extremity pain and swelling. She is currently being treated for lower extremity cellulitis. Blood pressure was low in the systolic 80s to 90s on admission. It is better now. She underwent a CTA on February 21 which revealed no evidence of PE. She received CT of the abdomen with IV contrast on February 23 which revealed ascites without evidence of hydronephrosis. Patient's currently resting in bed. She is not a reliable historian. Oral intake has been poor. She is receiving IV vancomycin. Vancomycin level was noted to be elevated at 30.6 this morning. No vomiting or diarrhea. Potassium level V.5 today. Vital signs are stable. General: The patient appeared well nourished and normally developed. HEENT: Head exam is unremarkable. Neck is without jugular venous distension. LUNGS: Breath sounds decreased. HEART: Rate and Rhythm are regular. First and second heart sounds normal. No murmurs, rubs or gallops. ABDOMEN: Abdominal exam reveals normal bowel sounds. Non-tender and non- distended. No evidence of peritonitis. EXTREMITITES: 2+ edema. Erythema of bilateral lower extremity started. Past Medical History Past Medical History: Cancer, COPD, Diabetes Mellitus, Fibromyalgia, Hyperlipidemia, Hypertension, Renal Disease, Rheumatoid Arthritis (RA), Seizure Disorder, Supraventricular Tachycardia (SVT) Additional Past Medical History / Comment(s): IDDM type II, neuropathy bilateral legs/feet and hands, past cellulitis leg, R breast cancer with surgery and chemo, seizures with last time "years" ago, UTI, CKD, UTIs, chronic anemia History of Any Multi-Drug Resistant Organisms: None Reported Past Surgical History: Adenoidectomy, Appendectomy, Breast Surgery, Cholecystectomy, Hysterectomy, Orthopedic Surgery, Tonsillectomy, Tubal Ligation Additional Past Surgical History / Comment(s): masectomy right, ganglion cyst right hand, total hysterectomy (hx of tubal pregnancies), lower teeth extracted. Past Anesthesia/Blood Transfusion Reactions: No Reported Reaction Smoking Status: Light tobacco smoker - Past Family History Father Family Medical History: Cancer, CVA/TIA Additional Family Medical History / Comment(s): 2000 from lung cancer Mother Family Medical History: Cancer, Dementia Additional Family Medical History / Comment(s): 2014 at age 86. Oral & Breast cancer Brother(s) Family Medical History: Asthma, Diabetes Mellitus, Fibromyalgia, Osteoarthritis (OA) Additional Family Medical History / Comment(s): Obesity. Joint replacements Medications and Allergies Home Medications Medication Instructions Recorded Confirmed Type Fluticasone/Salmeterol [Advair 1 puff INHALATION RT-DAILY@89906/24/14 History 100-50 Diskus] Anastrozole [Arimidex] 1 mg PO DAILY@89909/30/14 02/20/18 History diphenhydrAMINE HCL [Benadryl] 50 mg PO HS@2100 12/16/17 02/20/18 History Cyclobenzaprine [Flexeril] 10 mg PO TID@0600,1400,2200 01/08/18 02/20/18 History Acetaminophen Tab [Tylenol Tab] 650 mg PO Q4H PRN 02/20/18 02/20/18 History Aspirin 81 mg PO DAILY@89902/20/18 02/20/18 History Clindamycin HCl 300 mg PO Q6H 02/20/18 02/20/18 History DULoxetine HCL [Cymbalta] 20 mg PO DAILY@0902/20/18 02/20/18 History Darbepoetin Guwrinder [Aranesp] 40 mcg SQ TU@89902/20/18 02/20/18 History Docusate [Colace] 100 mg PO DAILY@89902/20/18 02/20/18 History Ferrous Sulfate [Feosol] 325 mg PO DAILY@1700 02/20/18 02/20/18 History Furosemide [Lasix] 20 mg PO DAILY@89902/20/18 02/20/18 History HYDROcodone/APAP 7.5-325MG [[place] 1 tab PO Q6H 02/20/18 02/20/18 History 7.5-325] INSULIN LISPRO (HumaLOG) [HumaLOG] 30 units SQ TID@0800,1200,1700 02/20/1802/20 History Insulin Glargine,Hum.rec.anlog 70 unit SQ HS@2100 02/20/18 02/20/18 History [Basaglvenkat [place] U-100] LORazepam [Ativan] 1 mg PO HS PRN 02/20/18 02/20/18 History Ondansetron [Zofran] 4 mg PO Q8HR PRN 02/20/18 02/20/18 History Sodium Bicarbonate Tab 650 mg PO BID@0900,2100 02/20/18 02/20/18 History Allergies Allergy/AdvReac Type Severity Reaction Status Date / Time codeine Allergy Nausea & Verified 02/20/18 20:27 Vomiting Penicillins Allergy Rash/Hives Verified 02/20/18 20:27 phenobarbital AdvReac Unknown Verified 02/20/18 20:27 phenytoin sodium AdvReac Unknown Verified 02/20/18 20:27 [From Dilantin] phenytoin sodium extended AdvReac Unknown Verified 02/20/18 20:27 [From Dilantin] primidone [From Mysoline] AdvReac Unknown Verified 02/20/18 20:27 Physical Exam Vitals: Vital Signs Temp Pulse Resp BP Pulse Ox 02/25/18 07:14 67 12 02/25/18 07:00 98.2 F 67 12 108/67 93 L 02/24/18 23:00 97.9 F 61 16 106/58 96 02/24/18 22:30 66 121/84 02/24/18 19:31 98.1 F 64 20 96/60 99 02/24/18 16:09 96 02/24/18 16:00 16 02/24/18 15:00 98.4 F 61 16 103/69 96 Intake and Output 02/24/18 02/25/18 02/25/18 22:59 06:59 14:59 Intake Total 120 150 Balance 120 150 Intake: Oral 120 150 Other: Voiding Method Bedside Commode Bedside Commode Bedside Commode # Voids 1 1 Results - Lab Results Most recent lab results Calcium 9.2 mg/dL (8.4-10.2) 02/25/18 07:04 Magnesium 2.2 mg/dL (1.6-2.3) 02/20/18 23:05 02/25/18 07:04 02/25/18 07:04 Assessment and Plan Plan: Assessment: 1. Acute kidney injury secondary to ATN secondary to contrast-induced nephropathy as well as vancomycin toxicity. Patient received IV contrast dye on February 21 and February 23. Vancomycin level this morning was 30.6. No hydronephrosis noted on CAT scan. Creatinine up to 2.14 today. 2. Chronic kidney disease stage III with baseline creatinine in the range of 1.1-1.4 secondary to diabetic kidney disease. 3. Hyperkalemia secondary to acute kidney injury. No evidence of acidosis. 4. Lower extremity cellulitis maintained on IV vancomycin. 5. Volume overload. Patient noted to have pleural effusions and ascites on CAT scan. 6. Systolic CHF with ejection fraction of 40-45% with moderate tricuspid regurgitation and severe pulmonary hypertension. 7. Anemia of chronic kidney disease. Rule out iron deficiency. 8. Insulin-dependent diabetes mellitus. Plan: Start Lasix 40 mg IV twice daily. Check postvoid residual to rule out underlying urinary retention. Monitor vancomycin levels closely. Dose held today. Target level less than 20. 10 units of IV insulin with an amp of D50 now. Low potassium diet. Repeat potassium level this evening. Check iron studies. Add Aranesp. Repeat electrolytes in the morning. Thank you for the consultation. I will continue to follow the patient with you during his hospital stay.
[2018-02-25 12:16] LABS: Glucose,Whole Blood 84 mg/dL (75-99)
[2018-02-25] MEDS: FUROSEMIDE 10 MG/ML 4 ML VIAL IV SCH ×2 (13:22→21:26)
[2018-02-25] MEDS: VANCOMYCIN IV PER PHARMACY 1 EACH MISC MISCELLANE SCH (13:50)
--- NOTE | 2018-02-25 14:40 | P.PN ---
Subjective Progress Note Date: 02/25/18 CHIEF COMPLAINT: Abdominal pain HISTORY OF PRESENT ILLNESS: The patient is a 68-year-old female with super morbid obesity, BMI 57.6 admitted for chest pain, abdominal ascites and incidental abdominal pain. She is resting comfortably. No new complaints. Imaging studies reviewed consistent with ventral hernia without involvement of small intestine. PHYSICAL EXAM: VITAL SIGNS: Reviewed GENERAL: Well-developed in no acute distress. HEENT: No sclera icterus. Extraocular movements grossly intact. Moist buccal mucosa. Head is atraumatic, normocephalic. Hears conversational speech. No nasal drainage. NECK: Supple without lymphadenopathy. CHEST: Non-labored respirations and equal bilateral excursions. CARDIOVASCULAR: Palpable 2+ radial pulses. Regular rate and regular rhythm ABDOMEN: Soft. Protuberant and obese. No peritonitis. MUSCULOSKELETAL: No clubbing, cyanosis NEUROLOGIC: No focal or lateralizing signs. Cranial nerves II through XII grossly intact. PSYCH: Slow affect. Generalized lethargy. SKIN: Well perfused. Good skin turgor. LABS: Reviewed ASSESSMENT: 1. Abdominal pain with incidental finding of ventral hernia PLAN: 1. Overall, abdominal pain as been stable often unremarkable. 2. No surgical intervention for fat-containing ventral hernia. 3. Management of ascites including liver cirrhosis per GI. 4. No surgical intervention and we'll sign off. Please reconsult if needed. Objective - Vital Signs Vital signs: Vital Signs Temp 98.2 F 02/25/18 07:00 Pulse 67 02/25/18 07:14 Resp 12 02/25/18 07:14 BP 108/67 02/25/18 07:00 Pulse Ox 93 L 02/25/18 07:00 Intake & Output 02/24/18 02/25/18 02/25/18 18:59 06:59 18:59 Intake Total 270 Balance 270 Intake: Oral 270 Other: Voiding Method Bedside Commode Bedside Commode Bedside Commode # Voids 1 1 1 # Bowel Movements 0 - Labs CBC & Chem 7: 02/25/18 07:04 02/25/18 07:04 Labs: Abnormal Lab Results - Last 24 Hours (Table) 02/24/18 02/25/18 02/25/18 Range/Units 22:10 07:04 07:04 RBC 2.90 L (3.80-5.40) m/uL Hgb 9.2 L (11.4-16.0) gm/dL Hct 28.6 L (34.0-46.0) % RDW 17.8 H (11.5-15.5) % Plt Count 142 L (150-450) k/uL Potassium (3.5-5.1) mmol/L BUN (7-17) mg/dL Creatinine (0.52-1.04) mg/dL POC Glucose (mg/dL) 104 H (75-99) mg/dL Vancomycin Trough 30.6 H* ug/mL 02/25/18 Range/Units 07:04 RBC (3.80-5.40) m/uL Hgb (11.4-16.0) gm/dL Hct (34.0-46.0) % RDW (11.5-15.5) % Plt Count (150-450) k/uL Potassium 5.5 H (3.5-5.1) mmol/L BUN 40 H (7-17) mg/dL Creatinine 2.14 H (0.52-1.04) mg/dL POC Glucose (mg/dL) (75-99) mg/dL Vancomycin Trough ug/mL Microbiology - Last 24 Hours (Table) 02/22/18 17:04 Anaerobic Culture - Preliminary Breast - Right 02/22/18 16:30 Gram Stain - Final Breast - Right Wound Culture - Final Assessment and Plan (1) Morbid obesity with BMI of 50.0-59.9, adult Current Visit: Yes Status: Acute Code(s): E66.01 - MORBID (SEVERE) OBESITY DUE TO EXCESS CALORIES; Z68.43 - BODY MASS INDEX (BMI) 50-59.9, ADULT SNOMED Code(s): 500429800 (2) Ventral hernia Current Visit: Yes Status: Acute Code(s): K43.9 - VENTRAL HERNIA WITHOUT OBSTRUCTION OR GANGRENE SNOMED Code(s): 151309724 (3) Ascites Current Visit: Yes Status: Acute Code(s): R18.8 - OTHER ASCITES SNOMED Code(s): 299027688 (4) History of breast cancer Current Visit: Yes Status: Acute Code(s): Z85.3 - PERSONAL HISTORY OF MALIGNANT NEOPLASM OF BREAST SNOMED Code(s): 359042670 (5) Abdominal pain Current Visit: Yes Status: Acute Code(s): R10.9 - UNSPECIFIED ABDOMINAL PAIN SNOMED Code(s): 45888469
[2018-02-25] MEDS: LEVOFLOXACIN 250 MG TAB PO SCH (15:24)
[2018-02-25] MEDS: FERROUS SULFATE 325 MG TAB PO SCH (17:52)
[2018-02-25 18:02] LABS: Glucose,Whole Blood 101 mg/dL (75-99)
[2018-02-25 20:05] LABS: Glucose,Whole Blood 99 mg/dL (75-99)
[2018-02-25] MEDS: METOPROLOL TARTRATE 25 MG TAB PO SCH (21:26)
[2018-02-25] MEDS: INSULIN DETEMIR 100 UNIT/ML 10 ML VIAL SQ SCH (21:26)
[2018-02-25] MEDS: diphenhydrAMINE 25 MG CAP PO SCH (21:26)
--- NOTE | 2018-02-25 22:06 | P.CONS ---
History of Present Illness - Reason for Consult Consult date: 02/25/18 Ascites Requesting physician: Handy Delcid - Chief Complaint Cellulitis - History of Present Illness 68-year-old female with medical history significant for COPD, diabetes mellitus , hypertension and rheumatoid arthritis who presented to the hospital due to bilateral lower extremity cellulitis. The patient is currently receiving treatment for cellulitis. During hospitalization she reports that she had one week of abdominal pain. The pain was in the lower abdomen and described as sharp and constant. The patient also reports a history of constipation for which she is on Colace at home. She denies any bowel movements today. During her stay she had evaluation with a CT of the abdomen which showed a heterogeneous liver with a surgically absent gallbladder, a ascites and possible right colonic wall thickening. The patient denies any known history of liver disease. She denies any heavy alcohol use in the past. She denies any known history of hepatitis. She reports that she may have had an EGD in the past but is unsure when this was. She denies any prior colonoscopy. Hemoglobin was found to be 9.2 today. INR 1.2. Mild elevation in bilirubin at 1.8, with alkaline phosphatase 113, AST 34 and MALT 26. Review of Systems REVIEW OF SYSTEMS: CONSTITUTIONAL: Denies any fevers, chills, weight change. CARDIOVASCULAR: Denies any chest pain, palpitations high or low blood pressures RESPIRATORY: Denies any shortness of breath, hemoptysis or cough. GENITOURINARY: No dysuria or hematuria. MUSCULOSKELETAL: No focal weakness reported. SKIN: Denies any new rashes or lesions, jaundice or pallor, but does report bilateral lower extremity cellulitis. PSYCHIATRIC: Denies any new depression or anxiety. NEUROLOGY: Denies headache. EARS/NOSE/THROAT: No recent hearing change, congestion, nasal discharge or sore throat. EYES: No pain in eyes, discharge or change in vision. GASTROINTESTINAL: As per HPI. Past Medical History Past Medical History: Cancer, COPD, Diabetes Mellitus, Fibromyalgia, Hyperlipidemia, Hypertension, Renal Disease, Rheumatoid Arthritis (RA), Seizure Disorder, Supraventricular Tachycardia (SVT) Additional Past Medical History / Comment(s): IDDM type II, neuropathy bilateral legs/feet and hands, past cellulitis leg, R breast cancer with surgery and chemo, seizures with last time "years" ago, UTI, CKD, UTIs, chronic anemia History of Any Multi-Drug Resistant Organisms: None Reported Past Surgical History: Adenoidectomy, Appendectomy, Breast Surgery, Cholecystectomy, Hysterectomy, Orthopedic Surgery, Tonsillectomy, Tubal Ligation Additional Past Surgical History / Comment(s): masectomy right, ganglion cyst right hand, total hysterectomy (hx of tubal pregnancies), lower teeth extracted. Past Anesthesia/Blood Transfusion Reactions: No Reported Reaction Smoking Status: Light tobacco smoker - Past Family History Father Family Medical History: Cancer, CVA/TIA Additional Family Medical History / Comment(s): 2000 from lung cancer Mother Family Medical History: Cancer, Dementia Additional Family Medical History / Comment(s): 2014 at age 86. Oral & Breast cancer Brother(s) Family Medical History: Asthma, Diabetes Mellitus, Fibromyalgia, Osteoarthritis (OA) Additional Family Medical History / Comment(s): Obesity. Joint replacements Medications and Allergies Home Medications Medication Instructions Recorded Confirmed Type Fluticasone/Salmeterol [Advair 1 puff INHALATION RT-DAILY@89906/24/14 History 100-50 Diskus] Anastrozole [Arimidex] 1 mg PO DAILY@89909/30/14 02/20/18 History diphenhydrAMINE HCL [Benadryl] 50 mg PO HS@2100 12/16/17 02/20/18 History Cyclobenzaprine [Flexeril] 10 mg PO TID@0600,1400,2200 01/08/18 02/20/18 History Acetaminophen Tab [Tylenol Tab] 650 mg PO Q4H PRN 02/20/18 02/20/18 History Aspirin 81 mg PO DAILY@89902/20/18 02/20/18 History Clindamycin HCl 300 mg PO Q6H 02/20/18 02/20/18 History DULoxetine HCL [Cymbalta] 20 mg PO DAILY@89902/20/18 02/20/18 History Darbepoetin Gur[place]inder [Aranesp] 40 mcg SQ TU@89902/20/18 02/20/18 History Docusate [Colace] 100 mg PO DAILY@0900 02/20/18 02/20/18 History Ferrous Sulfate [Feosol] 325 mg PO DAILY@1700 02/20/18 02/20/18 History Furosemide [Lasix] 20 mg PO DAILY@0900 02/20/18 02/20/18 History HYDROcodone/APAP 7.5-325MG [[place] 1 tab PO Q6H 02/20/18 02/20/18 History 7.5-325] INSULIN LISPRO (HumaLOG) [HumaLOG] 30 units SQ TID@0800,1200,1700 02/20/1802/20 History Insulin Glargine,Hum.rec.anlog 70 unit SQ HS@2100 02/20/18 02/20/18 History [Basaglar Kwikpen U-100] LORazepam [Ativan] 1 mg PO HS PRN 02/20/18 02/20/18 History Ondansetron [Zofran] 4 mg PO Q8HR PRN 02/20/18 02/20/18 History Sodium Bicarbonate Tab 650 mg PO BID@0900,2100 02/20/18 02/20/18 History Allergies Allergy/AdvReac Type Severity Reaction Status Date / Time codeine Allergy Nausea & Verified 02/20/18 20:27 Vomiting Penicillins Allergy Rash/Hives Verified 02/20/18 20:27 phenobarbital AdvReac Unknown Verified 02/20/18 20:27 phenytoin sodium AdvReac Unknown Verified 02/20/18 20:27 [From Dilantin] phenytoin sodium extended AdvReac Unknown Verified 02/20/18 20:27 [From Dilantin] primidone [From Mysoline] AdvReac Unknown Verified 02/20/18 20:27 Physical Exam Vitals: Vital Signs Temp Pulse Resp BP Pulse Ox 02/25/18 19:29 98.2 F 69 20 120/70 94 L 02/25/18 15:45 67 02/25/18 15:00 97.9 F 67 16 104/66 94 L 02/25/18 07:14 67 12 02/25/18 07:00 98.2 F 67 12 108/67 93 L 02/24/18 23:00 97.9 F 61 16 106/58 96 02/24/18 22:30 66 121/84 Intake and Output 02/25/18 02/25/18 02/25/18 06:59 14:59 22:59 Intake Total 150 Output Total 400 Balance 150 -400 Intake: Oral 150 Output: Urine 400 Other: Voiding Method Bedside Commode Bedside Commode Bedside Commode # Voids 1 1 On physical examination, patient appears comfortable in no apparent distress. HEAD: Normocephalic, atraumatic. EYES: No scleral icterus. No conjunctival injection. MOUTH: No lesions, tongue midline. NECK: Trachea midline, no gross abnormalities. CHEST: Decreased air entry in all lung razo. HEART: Regular rate and rhythm. ABDOMEN: Soft, obese. Bowel sounds are positive. No organomegaly. No guarding or rigidity. EXTREMITIES: Bilateral lower extremity cellulitis. SKIN: No rashes, no jaundice. Bilateral lower extremity cellulitis. NEUROLOGIC: Alert and oriented. Results CBC & Chem 7: 02/25/18 07:04 02/25/18 17:43 Labs: Abnormal Lab Results - Last 24 Hours (Table) 02/24/18 02/25/18 02/25/18 Range/Units 22:10 07:04 07:04 RBC 2.90 L (3.80-5.40) m/uL Hgb 9.2 L (11.4-16.0) gm/dL Hct 28.6 L (34.0-46.0) % RDW 17.8 H (11.5-15.5) % Plt Count 142 L (150-450) k/uL Potassium (3.5-5.1) mmol/L BUN (7-17) mg/dL Creatinine (0.52-1.04) mg/dL POC Glucose (mg/dL) 104 H (75-99) mg/dL Vancomycin Trough 30.6 H* ug/mL 02/25/18 02/25/18 02/25/18 Range/Units 07:04 17:43 17:51 RBC (3.80-5.40) m/uL Hgb (11.4-16.0) gm/dL Hct (34.0-46.0) % RDW (11.5-15.5) % Plt Count (150-450) k/uL Potassium 5.5 H 5.7 H (3.5-5.1) mmol/L BUN 40 H (7-17) mg/dL Creatinine 2.14 H (0.52-1.04) mg/dL POC Glucose (mg/dL) 101 H (75-99) mg/dL Vancomycin Trough ug/mL Microbiology - Last 24 Hours (Table) 02/22/18 17:04 Anaerobic Culture - Preliminary Breast - Right 02/22/18 16:30 Gram Stain - Final Breast - Right Wound Culture - Final CT scan - abdomen: report reviewed (CT of the abdomen which showed a heterogeneous liver with a surgically absent gallbladder, a ascites and possible right colonic wall thickening. The patient denies any known history of liver disease.) Assessment and Plan (1) Ascites Narrative/Plan: Unknown etiology with suspicion for underlying liver disease secondary to fatty liver with the patient denying any history of viral hepatitis or excessive alcohol use. Current Visit: Yes Status: Acute Code(s): R18.8 - OTHER ASCITES SNOMED Code(s): 559839038 (2) Abdominal pain Narrative/Plan: Computed tomography scan of the abdomen negative for any intra-abdominal pathology, may relate to constipation, functional bowel disorder, distention from a ascitic fluid or other etiology. Current Visit: Yes Status: Acute Code(s): R10.9 - UNSPECIFIED ABDOMINAL PAIN SNOMED Code(s): 28534591 Plan: Supportive care Okay for diet Continue Colace, we will add MiraLAX daily to bowel regimen Chronic viral hepatitis panel ordered Paracentesis with fluid studies ordered to determine etiology of the ascites Repeat liver enzymes Thank you for allowing us to participate in the care of the patient we will continue to follow
[2018-02-26] MEDS: HYDROcodone/APAP 7.5-325MG 1 EACH TAB PO SCH ×4 (05:01→23:45)
[2018-02-26 06:44] LABS: Albumin 3.4 g/dL (3.5-5.0); Calcium 8.9 mg/dL (8.4-10.2); Potassium 5.1 mmol/L (3.5-5.1)
[2018-02-26 07:26] LABS: Glucose,Whole Blood 71 mg/dL (75-99)
[2018-02-26] MEDS: INSULIN ASPART 100 UNIT/ML 1 ML 10 ML VIAL SQ SCH ×7 (07:51→20:24)
[2018-02-26] MEDS: CYCLOBENZAPRINE 10 MG TAB PO SCH ×3 (07:51→22:36)
[2018-02-26] MEDS: SODIUM BICARBONATE TAB 650 MG TAB PO SCH ×2 (08:01→22:10)
[2018-02-26] MEDS: ANASTROZOLE 1 MG TAB PO SCH (08:02)
[2018-02-26] MEDS: DOCUSATE 100 MG CAP PO SCH (08:02)
[2018-02-26] MEDS: METOPROLOL TARTRATE 50 MG TAB PO SCH (08:02)
[2018-02-26] MEDS: FUROSEMIDE 10 MG/ML 4 ML VIAL IV SCH ×2 (08:02→22:11)
[2018-02-26] MEDS: POLYETHYLENE GLYCOL 3350 17 GM POWD.PACK PO SCH (08:02)
[2018-02-26] MEDS: ASPIRIN 81 MG PO SCH (08:02)
[2018-02-26 09:51] LABS: Iron Saturation 16.44 (12.00-45.00)
[2018-02-26 09:56] LABS: Mean Platelet Volume 6.9; Platelet Count 122 k/uL (150-450)
[2018-02-26 10:04] LABS: INR 1.2 (<1.2); Prothrombin Time 12.1 sec (9.0-12.0)
--- NOTE | 2018-02-26 11:24 | P.PN ---
Subjective Patient resting in bed states abdominal pain improved. Awaiting paracentesis per gastroenterology for abdominal ascites. Less erythema noted to legs Objective - Vital Signs Vital signs: Vital Signs Temp 97.4 F L 02/26/18 08:19 Pulse 74 02/26/18 08:19 Resp 16 02/26/18 08:19 BP 133/61 02/26/18 08:19 Pulse Ox 97 02/26/18 08:19 Intake & Output 02/25/18 02/26/18 02/26/18 18:59 06:59 18:59 Intake Total 200 Output Total 400 Balance -400 200 Intake: Oral 200 Output: Urine 400 Other: Voiding Method Bedside Commode Bedside Commode Bedside Commode # Voids 1 0 - Constitutional General appearance: Present: morbidly obese - EENT Eyes: Present: PERRLA Ears: bilateral: normal - Neck Neck: Present: normal ROM - Respiratory Respiratory: bilateral: CTA - Cardiovascular Rhythm: regular - Gastrointestinal General gastrointestinal: Present: soft - Integumentary Integumentary Comment(s): Improving erythema to lower extremities Integumentary: Present: cellulitis, normal - Neurologic Neurologic: Present: CNII-XII intact - Musculoskeletal Musculoskeletal: Present: generalized weakness - Psychiatric Psychiatric: Present: appropriate affect, intact judgment & insight - Labs CBC & Chem 7: 02/26/18 09:32 02/26/18 06:11 Labs: Abnormal Lab Results - Last 24 Hours (Table) 02/25/18 02/25/18 02/25/18 Range/Units 07:04 17:43 17:51 Plt Count (150-450) k/uL PT (9.0-12.0) sec INR (<1.2) Potassium 5.7 H (3.5-5.1) mmol/L BUN (7-17) mg/dL Creatinine (0.52-1.04) mg/dL Glucose (74-99) mg/dL POC Glucose (mg/dL) 101 H (75-99) mg/dL Magnesium (1.6-2.3) mg/dL Iron 49 L (50-170) ug/dL Albumin (3.5-5.0) g/dL 02/26/18 02/26/18 02/26/18 Range/Units 06:11 07:20 09:32 Plt Count 122 L (150-450) k/uL PT (9.0-12.0) sec INR (<1.2) Potassium (3.5-5.1) mmol/L BUN 42 H (7-17) mg/dL Creatinine 2.11 H (0.52-1.04) mg/dL Glucose 70 L (74-99) mg/dL POC Glucose (mg/dL) 71 L (75-99) mg/dL Magnesium 3.0 H (1.6-2.3) mg/dL Iron (50-170) ug/dL Albumin 3.4 L (3.5-5.0) g/dL 02/26/18 Range/Units 09:32 Plt Count (150-450) k/uL PT 12.1 H (9.0-12.0) sec INR 1.2 H (<1.2) Potassium (3.5-5.1) mmol/L BUN (7-17) mg/dL Creatinine (0.52-1.04) mg/dL Glucose (74-99) mg/dL POC Glucose (mg/dL) (75-99) mg/dL Magnesium (1.6-2.3) mg/dL Iron (50-170) ug/dL Albumin (3.5-5.0) g/dL - Imaging and Cardiology CT scan - abdomen: report reviewed Assessment and Plan Assessment: Assessment Chest pain atypical Abdominal pain with ascites Ventral hernia History of breast cancer with mastectomy History of COPD Diabetes type 2 Fibromyalgia Hyperlipidemia Hypertension Rheumatoid arthritis seizure disorder stable cellulitis lower extremities Plan Paracentesis per gastroenterology
[2018-02-26 12:15] LABS: Glucose,Whole Blood 85 mg/dL (75-99)
[2018-02-26 12:29] LABS: Hepatitis B Surface AB- Quant 3.5 mIU/mL; Hepatitis C IgG Antibody Non-Reactive (Non-Reactive)
[2018-02-26] MEDS ORDERED: HYDROcodone/APAP 7.5-325MG 1 EACH TAB PO ONE (12:30)
--- NOTE | 2018-02-26 13:38 | US ---
Therapeutic paracentesis. DATE OF EXAM: 02/26/2018 CLINICAL HISTORY: Ascites Preliminary imaging demonstrates only a small amount of ascites the procedure was deferred. IMPRESSION: Deferred paracentesis
--- NOTE | 2018-02-26 15:16 | PN ---
PROGRESS NOTE Patient is seen for followup for chronic kidney disease and acute kidney injury. Serum creatinine has been staying at about 2 mg/dL for the last 3 days. Patient is currently sitting up in a bedside chair. She just had a bath. Her vancomycin level was 25. She has been voiding. No major complaints. PHYSICAL EXAMINATION: Blood pressure was 133/61, heart rate 74 per minute. She is afebrile. Examination of the heart, S1, S2. Examination of the lungs, bilateral breath sounds are heard. Abdomen is soft, nontender. Examination of the lower extremities shows chronic edema bilaterally. Some erythema is noted as well. [employer] exam is grossly intact. LABS: Show sodium of 138, potassium 5.1, chloride 105, BUN 42, serum creatinine 2.1. ASSESSMENT: 1. Acute kidney injury, acute tubular necrosis secondary to contrast nephropathy and some degree of vancomycin toxicity. Vancomycin level has decreased. Patient is nonoliguric. Continue to monitor for now. 2. Chronic kidney disease stage III with baseline creatinine about 1.4 mg/dL, etiology diabetic kidney disease. 3. Hyperkalemia associated with acute kidney injury, now improved. 4. Lower extremity cellulitis. 5. Congestive heart failure, systolic with ejection fraction 40% to 45%. 6. Anemia of chronic disease, maintained on Aranesp. PLAN: Continue with the IV Lasix for now. Repeat labs in a.m. Renal function is stable. MMODL / IJN: [id number] /
[2018-02-26] MEDS: FERROUS SULFATE 325 MG TAB PO SCH (15:49)
[2018-02-26] MEDS: LEVOFLOXACIN 250 MG TAB PO SCH (15:49)
[2018-02-26 17:10] LABS: Glucose,Whole Blood 93 mg/dL (75-99)
[2018-02-26 20:14] LABS: Glucose,Whole Blood 85 mg/dL (75-99)
--- NOTE | 2018-02-26 20:24 | P.PN ---
Subjective Progress Note Date: 02/26/18 Principal diagnosis: Abdominal pain, ascites Patient lying in bed. Still reports some abdominal pain, however improved. He has tolerated her diet. No bowel movements today. Objective - Vital Signs Vital signs: Vital Signs Temp 98.0 F 02/26/18 15:00 Pulse 63 02/26/18 15:00 Resp 14 02/26/18 15:00 BP 108/62 02/26/18 15:00 Pulse Ox 95 02/26/18 15:00 Intake & Output 02/26/18 02/26/18 02/27/18 06:59 18:59 06:59 Intake Total 200 200 Balance 200 200 Intake: Oral 200 200 Other: Voiding Method Bedside Commode Bedside Commode # Voids 0 3 - Exam On physical examination, patient appears comfortable in no apparent distress. HEAD: Normocephalic, atraumatic. EYES: No scleral icterus. No conjunctival injection. MOUTH: No lesions, tongue midline. NECK: Trachea midline, no gross abnormalities. CHEST: Decreased air entry in all lung razo. ABDOMEN: Soft, obese and mildly tender to palpation. Bowel sounds are positive. No organomegaly. No guarding or rigidity. EXTREMITIES: No pedal edema. SKIN: No rashes, no jaundice. NEUROLOGIC: Alert and oriented. - Labs CBC & Chem 7: 02/26/18 09:32 02/26/18 06:11 Labs: Abnormal Lab Results - Last 24 Hours (Table) 02/25/18 02/26/18 02/26/18 Range/Units 07:04 06:11 07:20 Plt Count (150-450) k/uL PT (9.0-12.0) sec INR (<1.2) BUN 42 H (7-17) mg/dL Creatinine 2.11 H (0.52-1.04) mg/dL Glucose 70 L (74-99) mg/dL POC Glucose (mg/dL) 71 L (75-99) mg/dL Magnesium 3.0 H (1.6-2.3) mg/dL Iron 49 L (50-170) ug/dL Albumin 3.4 L (3.5-5.0) g/dL 02/26/18 02/26/18 Range/Units 09:32 09:32 Plt Count 122 L (150-450) k/uL PT 12.1 H (9.0-12.0) sec INR 1.2 H (<1.2) BUN (7-17) mg/dL Creatinine (0.52-1.04) mg/dL Glucose (74-99) mg/dL POC Glucose (mg/dL) (75-99) mg/dL Magnesium (1.6-2.3) mg/dL Iron (50-170) ug/dL Albumin (3.5-5.0) g/dL Assessment and Plan (1) Ascites Narrative/Plan: Unknown etiology with suspicion for underlying liver disease secondary to fatty liver with the patient denying any history of viral hepatitis or excessive alcohol use. Current Visit: Yes Status: Acute Code(s): R18.8 - OTHER ASCITES SNOMED Code(s): 939168337 (2) Abdominal pain Narrative/Plan: Computed tomography scan of the abdomen negative for any intra-abdominal pathology, may relate to constipation, functional bowel disorder, distention from a ascitic fluid or other etiology. Current Visit: Yes Status: Acute Code(s): R10.9 - UNSPECIFIED ABDOMINAL PAIN SNOMED Code(s): 31668939 Plan: Supportive care Okay for diet Continue Colace, MiraLAX daily has been added to bowel regimen Chronic viral hepatitis panel negative, significant only for immunization to hepatitis B Paracentesis with fluid studies ordered to determine etiology of the ascites, with procedure aborted due to insufficient amount of ascites Repeat liver enzymes Thank you for allowing us to participate in the care of the patient we will continue to follow
[2018-02-26] MEDS: INSULIN DETEMIR 100 UNIT/ML 10 ML VIAL SQ SCH (20:54)
[2018-02-26] MEDS ORDERED: INSULIN DETEMIR 100 UNIT/ML 10 ML VIAL SQ ONE (21:30)
[2018-02-26] MEDS: METOPROLOL TARTRATE 25 MG TAB PO SCH (22:11)
[2018-02-26] MEDS: diphenhydrAMINE 25 MG CAP PO SCH (22:11)
[2018-02-27] MEDS: CYCLOBENZAPRINE 10 MG TAB PO SCH ×3 (05:59→20:53)
[2018-02-27] MEDS: HYDROcodone/APAP 7.5-325MG 1 EACH TAB PO SCH ×3 (06:06→16:32)
[2018-02-27 07:07] LABS: Glucose,Whole Blood 70 mg/dL (75-99)
[2018-02-27] MEDS: INSULIN ASPART 100 UNIT/ML 1 ML 10 ML VIAL SQ SCH ×7 (07:25→20:52)
[2018-02-27 07:47] LABS: Albumin 3.3 g/dL (3.5-5.0); Bilirubin, Delta 0.3 mg/dL (0.0-0.2); Bilirubin,Unconjugated 0.9 mg/dL (0.0-1.1); Total Bilirubin 1.2 mg/dL (0.2-1.3); Total Protein 6.6 g/dL (6.3-8.2)
[2018-02-27] MEDS: POLYETHYLENE GLYCOL 3350 17 GM POWD.PACK PO SCH (08:25)
[2018-02-27] MEDS: METOPROLOL TARTRATE 50 MG TAB PO SCH (08:26)
[2018-02-27] MEDS: SODIUM BICARBONATE TAB 650 MG TAB PO SCH ×2 (08:26→21:04)
[2018-02-27] MEDS: DOCUSATE 100 MG CAP PO SCH (08:27)
[2018-02-27] MEDS: ANASTROZOLE 1 MG TAB PO SCH (08:27)
[2018-02-27] MEDS: ASPIRIN 81 MG PO SCH (08:27)
[2018-02-27] MEDS: FUROSEMIDE 10 MG/ML 4 ML VIAL IV SCH ×2 (08:27→21:03)
[2018-02-27] MEDS ORDERED: DARBEPOETIN ALFA 40 MCG/0.4 ML SYRINGE SQ SCH (09:00)
[2018-02-27] MEDS ORDERED: BISACODYL 10 MG SUPP RECTAL STA (11:49)
[2018-02-27 11:56] LABS: Glucose,Whole Blood 98 mg/dL (75-99)
--- NOTE | 2018-02-27 12:04 | P.PN ---
Subjective Patient resting in bed continues to complain of abdominal pain patient is constipated. Discussed case with gastroenterology they will be signing off. We 'll continue consultation with nephrology regarding renal failure and generalized anasarca Objective - Vital Signs Vital signs: Vital Signs Temp 97.6 F 02/27/18 07:20 Pulse 93 02/27/18 07:20 Resp 12 02/27/18 07:20 BP 117/66 02/27/18 07:20 Pulse Ox 93 L 02/27/18 07:20 Intake & Output 02/26/18 02/27/18 02/27/18 18:59 06:59 18:59 Intake Total 200 50 Output Total 300 Balance 200 -300 50 Weight 152.271 kg Intake: Oral 200 50 Output: Urine 300 Other: Voiding Method Bedside Commode Bedside Commode Bedside Commode # Voids 3 1 - Constitutional General appearance: Present: morbidly obese - EENT Eyes: Present: PERRLA Ears: bilateral: normal - Respiratory Respiratory: bilateral: CTA - Cardiovascular Rhythm: regular - Integumentary Integumentary: Present: cellulitis - Neurologic Neurologic: Present: CNII-XII intact - Musculoskeletal Musculoskeletal: Present: generalized weakness - Psychiatric Psychiatric Comment(s): Patient tearful and anxious Psychiatric: Present: A&O x's 3 - Labs CBC & Chem 7: 02/26/18 09:32 02/26/18 06:11 Labs: Abnormal Lab Results - Last 24 Hours (Table) 02/27/18 02/27/18 Range/Units 07:00 07:05 POC Glucose (mg/dL) 70 L (75-99) mg/dL Delta Bilirubin 0.3 H (0.0-0.2) mg/dL Albumin 3.3 L (3.5-5.0) g/dL Microbiology - Last 24 Hours (Table) 02/22/18 17:04 Anaerobic Culture - Final Breast - Right Assessment and Plan Plan: Assessment cellulitis of lower extremities improving Constipation Acute kidney injury acute tubular necrosis stage III kidney disease chronic Anemia of chronic disease Congestive heart failure with ejection fraction of 40-45% Abdominal pain with ascites COPD Diabetes type 2 History of fibromyalgia Hyperlipidemia Hypertension Rheumatoid arthritis Seizures stable Anxiety/depression History of breast cancer with mastectomy Generalized anasarca Plan Treating constipation gastroenterology signed off Awaiting further consultation with nephrology regarding kidney failure and generalized anasarca
[2018-02-27] MEDS: SENNOSIDES-DOCUSATE SODIUM 1 EACH TAB PO SCH ×2 (12:14→21:04)
--- NOTE | 2018-02-27 13:40 | P.PN ---
Subjective Patient is seen in follow-up for acute kidney injury on chronic kidney disease. Patient has chronic kidney disease stage III with baseline creatinine in the range of 1.1-1.4 secondary to diabetic kidney disease. Creatinine 2.11 as of yesterday. Currently sitting up in chair. Having lunch. No vomiting or diarrhea. See admits to good urine output. Vital signs are stable. General: The patient appeared well nourished and normally developed. HEENT: Head exam is unremarkable. Neck is without jugular venous distension. LUNGS: Lungs are clear to auscultation and percussion. Breath sounds decreased. HEART: Rate and Rhythm are regular. First and second heart sounds normal. No murmurs, rubs or gallops. ABDOMEN: Abdominal exam reveals normal bowel sounds. Non-tender and non- distended. No evidence of peritonitis. EXTREMITITES: 2+ edema. Objective - Vital Signs Vital signs: Vital Signs Temp 97.6 F 02/27/18 07:20 Pulse 93 02/27/18 07:20 Resp 12 02/27/18 07:20 BP 117/66 02/27/18 07:20 Pulse Ox 93 L 02/27/18 07:20 Intake & Output 02/26/18 02/27/18 02/27/18 18:59 06:59 18:59 Intake Total 200 50 Output Total 300 Balance 200 -300 50 Weight 152.271 kg Intake: Oral 200 50 Output: Urine 300 Other: Voiding Method Bedside Commode Bedside Commode Bedside Commode # Voids 3 1 - Labs CBC & Chem 7: 02/26/18 09:32 02/26/18 06:11 Labs: Abnormal Lab Results - Last 24 Hours (Table) 02/27/18 02/27/18 Range/Units 07:00 07:05 POC Glucose (mg/dL) 70 L (75-99) mg/dL Delta Bilirubin 0.3 H (0.0-0.2) mg/dL Albumin 3.3 L (3.5-5.0) g/dL Microbiology - Last 24 Hours (Table) 02/22/18 17:04 Anaerobic Culture - Final Breast - Right Assessment and Plan Plan: Assessment: 1. Acute kidney injury secondary to ATN secondary to contrast-induced nephropathy as well as vancomycin toxicity. Patient received IV contrast dye on February 21 and February 23. Vancomycin level trending down. No hydronephrosis noted on CAT scan. Creatinine 2.11 as of yesterday. 2. Chronic kidney disease stage III with baseline creatinine in the range of 1.1-1.4 secondary to diabetic kidney disease. 3. Hyperkalemia secondary to acute kidney injury. No evidence of acidosis. Improved. 4. Lower extremity cellulitis maintained on antibiotics. Vancomycin has been discontinued. 5. Volume overload. Patient noted to have pleural effusions and ascites on CAT scan. 6. Systolic CHF with ejection fraction of 40-45% with moderate tricuspid regurgitation and severe pulmonary hypertension. 7. Anemia of chronic kidney disease. Iron deficiency noted. Maintain Aranesp. 8. Insulin-dependent diabetes mellitus. Plan: Maintain Lasix 40 mg IV twice daily. Ferrlecit 125 mg IV daily for 3 days. First dose today. Repeat electrolytes in the morning.
[2018-02-27] MEDS: LEVOFLOXACIN 250 MG TAB PO SCH (16:32)
[2018-02-27] MEDS: FERROUS SULFATE 325 MG TAB PO SCH (16:32)
[2018-02-27] MEDS: SODIUM FERRIC GLUCONAT-SUCROSE 125 MG in SODIUM CHLORIDE 0.9% 100 ML IVPB SCH (16:33)
[2018-02-27 17:07] LABS: Glucose,Whole Blood 102 mg/dL (75-99)
[2018-02-27 20:38] LABS: Glucose,Whole Blood 122 mg/dL (75-99)
[2018-02-27] MEDS: diphenhydrAMINE 25 MG CAP PO SCH (21:04)
[2018-02-27] MEDS: METOPROLOL TARTRATE 25 MG TAB PO SCH (21:04)
[2018-02-27] MEDS ORDERED: INSULIN DETEMIR 100 UNIT/ML 10 ML VIAL SQ SCH (21:30)
[2018-02-28] MEDS: HYDROcodone/APAP 7.5-325MG 1 EACH TAB PO SCH ×3 (00:04→11:08)
[2018-02-28 02:57] VITALS: RESP 16
[2018-02-28] MEDS: CYCLOBENZAPRINE 10 MG TAB PO SCH ×2 (05:37→13:50)
[2018-02-28 07:33] LABS: Glucose,Whole Blood 98 mg/dL (75-99)
[2018-02-28] MEDS: INSULIN ASPART 100 UNIT/ML 1 ML 10 ML VIAL SQ SCH ×4 (08:03→12:06)
[2018-02-28 08:35] LABS: Magnesium 2.8 mg/dL (1.6-2.3); Potassium 4.6 mmol/L (3.5-5.1)
[2018-02-28] MEDS: FUROSEMIDE 10 MG/ML 4 ML VIAL IV SCH (09:36)
[2018-02-28] MEDS: POLYETHYLENE GLYCOL 3350 17 GM POWD.PACK PO SCH (09:37)
[2018-02-28] MEDS: ANASTROZOLE 1 MG TAB PO SCH (09:41)
[2018-02-28] MEDS: DOCUSATE 100 MG CAP PO SCH (09:42)
[2018-02-28] MEDS: SODIUM BICARBONATE TAB 650 MG TAB PO SCH (09:42)
[2018-02-28] MEDS: SENNOSIDES-DOCUSATE SODIUM 1 EACH TAB PO SCH (09:42)
[2018-02-28] MEDS: METOPROLOL TARTRATE 50 MG TAB PO SCH (09:42)
[2018-02-28] MEDS: ASPIRIN 81 MG PO SCH (09:42)
--- NOTE | 2018-02-28 09:54 | P.PN ---
Subjective patient sitting in chair at bedside. Also improvement from yesterday. Edema improved. Patient more talkative and active Objective - Vital Signs Vital signs: Vital Signs Temp 98.1 F 02/28/18 07:00 Pulse 67 02/28/18 07:00 Resp 16 02/28/18 07:00 BP 103/54 02/28/18 07:00 Pulse Ox 96 02/28/18 07:00 Intake & Output 02/27/18 02/28/18 02/28/18 18:59 06:59 18:59 Intake Total 546 600 Output Total 300 500 Balance 546 300 -500 Weight 152.271 kg Intake: Intake, IV Titration 100 Amount Sodium Ferric Gluconat- 100 Sucrose 125 mg In Sodium Chloride 0.9% 100 ml @ 100 mls/hr IVPB DAILY@ 1200 ROS Rx#:[id number] Oral 546 500 Output: Urine 300 500 Other: Voiding Method Bedside Commode Bedside Commode # Voids 2 2 # Bowel Movements 0 0 - Constitutional General appearance: Present: morbidly obese - EENT Eyes: Present: PERRLA Ears: bilateral: normal - Respiratory Respiratory: bilateral: CTA - Cardiovascular Rhythm: regular - Gastrointestinal General gastrointestinal: Present: soft - Integumentary Integumentary Comment(s): lower extremities Integumentary: Present: cellulitis - Neurologic Neurologic: Present: CNII-XII intact - Musculoskeletal Musculoskeletal: Present: generalized weakness - Psychiatric Psychiatric: Present: A&O x's 3, appropriate affect, intact judgment & insight - Labs CBC & Chem 7: 02/26/18 09:32 02/28/18 07:58 Labs: Abnormal Lab Results - Last 24 Hours (Table) 02/27/18 02/27/18 02/28/18 Range/Units 17:05 20:37 07:58 BUN 40 H (7-17) mg/dL Creatinine 1.77 H (0.52-1.04) mg/dL POC Glucose (mg/dL) 102 H 122 H (75-99) mg/dL Magnesium 2.8 H (1.6-2.3) mg/dL Assessment and Plan Plan: assessment Cellulitis lower extremities acute kidney injury with tubular necrosisChronic kidney disease stage III Anemia of chronic disease COPD Diabetes type 2 Fibromyalgia Hyperlipidemia Hypertension Rheumatoid arthritis History of seizures stable congestive heart failure ejection fraction 40-45% fluid overload History of breast cancer with mastectomy anxiety depression abdominal pain with ventral hernia Constipation Abdominal ascites Plan Continue diuresing with nephrology Hopeful discharge soon Continues on by mouth Levaquin
--- NOTE | 2018-02-28 10:35 | P.PN ---
Subjective Patient is seen in follow-up for acute kidney injury on chronic kidney disease. Patient has chronic kidney disease stage III with baseline creatinine in the range of 1.1-1.4 secondary to diabetic kidney disease. Renal function improving. Creatinine 1.77 today. Currently resting in bed. No vomiting or diarrhea. See admits to good urine output. Vital signs are stable. General: The patient appeared well nourished and normally developed. HEENT: Head exam is unremarkable. Neck is without jugular venous distension. LUNGS: Lungs are clear to auscultation and percussion. Breath sounds decreased. HEART: Rate and Rhythm are regular. First and second heart sounds normal. No murmurs, rubs or gallops. ABDOMEN: Abdominal exam reveals normal bowel sounds. Non-tender and non- distended. No evidence of peritonitis. EXTREMITITES: 2+ edema. Erythema noted. Objective - Vital Signs Vital signs: Vital Signs Temp 98.1 F 02/28/18 07:00 Pulse 67 02/28/18 07:00 Resp 16 02/28/18 07:00 BP 103/54 02/28/18 07:00 Pulse Ox 96 02/28/18 07:00 Intake & Output 02/27/18 02/28/18 02/28/18 18:59 06:59 18:59 Intake Total 546 600 Output Total 300 500 Balance 546 300 -500 Weight 152.271 kg Intake: Intake, IV Titration 100 Amount Sodium Ferric Gluconat- 100 Sucrose 125 mg In Sodium Chloride 0.9% 100 ml @ 100 mls/hr IVPB DAILY@ 1200 ROS Rx#:[id number] Oral 546 500 Output: Urine 300 500 Other: Voiding Method Bedside Commode Bedside Commode # Voids 2 2 # Bowel Movements 0 0 - Labs CBC & Chem 7: 02/26/18 09:32 02/28/18 07:58 Labs: Abnormal Lab Results - Last 24 Hours (Table) 02/27/18 02/27/18 02/28/18 Range/Units 17:05 20:37 07:58 BUN 40 H (7-17) mg/dL Creatinine 1.77 H (0.52-1.04) mg/dL POC Glucose (mg/dL) 102 H 122 H (75-99) mg/dL Magnesium 2.8 H (1.6-2.3) mg/dL Assessment and Plan Plan: Assessment: 1. Acute kidney injury secondary to ATN secondary to contrast-induced nephropathy as well as vancomycin toxicity. Patient received IV contrast dye on February 21 and February 23. Vancomycin level trending down. No hydronephrosis noted on CAT scan. Renal function improving. Creatinine down to 1.77 today. 2. Chronic kidney disease stage III with baseline creatinine in the range of 1.1-1.4 secondary to diabetic kidney disease. 3. Hyperkalemia secondary to acute kidney injury. No evidence of acidosis. Improved. 4. Lower extremity cellulitis maintained on antibiotics. Vancomycin has been discontinued. 5. Volume overload. Patient noted to have pleural effusions and ascites on CAT scan. 6. Systolic CHF with ejection fraction of 40-45% with moderate tricuspid regurgitation and severe pulmonary hypertension. 7. Anemia of chronic kidney disease. Iron deficiency noted. Maintain Aranesp. 8. Insulin-dependent diabetes mellitus. Plan: Maintain Lasix 40 mg IV twice daily - can be changed to oral upon discharge. Ferrlecit 125 mg IV daily for 3 days. Second dose today. Repeat electrolytes in the morning. Patient will need to follow-up outpatient in the next 1-2 weeks.
--- NOTE | 2018-02-28 11:07 | CDI ---
Documentation Clarification Form Date: 02/28/2018 10:37:43 AM From: Shruti Metcalf RN, CCDS Admit Date: 02/22/2018 1:59:00 PM Patient Name: Tawny Zuniga Visit Number: [id number] Discharge Date: ATTENTION: The Clinical Documentation Specialists (CDI) and [facility] Coding Staff appreciate your assistance in clarifying documentation. Please respond to the clarification below the line at the bottom and electronically sign. The CDI & [facility] Coding staff will review the response and follow-up if needed. Please note: Queries are made part of the Legal Health Record. If you have any questions, please contact the author of this message via ITS. Dr. Handy Delcid Systolic CHF is documented in the ongoing Nephrology consult. 02/27/18 Dr. Delcid, ongoing progress notes: Congestive heart failure with ejection fraction of 40-45 %. History/Risk Factors: Diabetes Mellitus type II, COPD, Hypertension, Chronic kidney disease stage III, Anemia of chronic kidney disease, Clinical Indicators: Present with lower extremity pain and swelling with 2+ edema, erythema of bilateral lower extremities. VS/Pulse OX: 134/87 104 16 98.1 100 % 2/L NC BNP: not noted Echocardiogram Results: EF 40-45 % Mild aortic stenosis, moderate tricuspid regurgitation and moderate to severe pulmonary hypertension with RVSP of 69 mmhg. (Per progress notes) Chest x ray: Anasarca, Mild to moderate ascites suggested in the superior abdomen. Small bilateral dependent layering pleural effusions. Treatment: Lasix IV BID Monitor Labs Monitor weights and I/O In your professional opinion, can you please clarify the acuity and type of CHF if known? Systolic Heart Failure: Acute Chronic Acute on Chronic Systolic & Diastolic Heart Failure: Acute Chronic Acute on Chronic Heart Failure Unable to Determine Other, please specify (Last Revision: May 2017) MTDD
--- NOTE | 2018-02-28 11:24 | P.DS ---
Providers Date of admission: 02/22/18 13:59 Expected date of discharge: 02/28/18 Attending physician: Handy Delcid Consults: 02/21/18 17:40 Consult Physician Stat Consulting Provider: Kumar Tyson Consult Reason/Comments: Chest Pain Do you want consulting provider notified?: Yes 02/22/18 10:23 Consult Physician Urgent Consulting Provider: Patricia Garcia Consult Reason/Comments: abd ascites abd pain hx breast cancer Do you want consulting provider notified?: Yes 02/24/18 11:08 Consult Physician Routine Consulting Provider: Vanessa Horan Consult Reason/Comments: ascities/ spleenomegally Do you want consulting provider notified?: Yes 02/25/18 10:41 Consult Physician Routine Consulting Provider: John Finney Consult Reason/Comments: worsening renal function Do you want consulting provider notified?: Yes Primary care physician: [facility] Course: 68-year-old female was transferred from the [facility] where she is in rehab with complaints of diffuse abdominal pain and chest pain. Patient was evaluated by cardiology. Patient was evaluated by gastroenterology for ascites. Consultation was done with nephrology regarding acute kidney injury was diuresed patient greatly improved at this point. Patient was also treated for bilateral lower extremity cellulitis Assessment Cellulitis lower extremities Acute kidney injury with acute tubular necrosis chronic stage III kidney disease Anemia of chronic disease History of COPD Diabetes type 2 Fibromyalgia Hyperlipidemia\ Hypertension rheumatoid arthritis History of seizure disorder stable Congestive heart failure acute on chronic ejection fraction 40-45% systolic dysfunction fluid overload Anxiety/depression Abdominal pain with ascites ventral hernia constipation History of breast cancer with mastectomy Plan Return to [facility] for rehab for weakness Continue Levaquin 250 mg daily for 10 days Patient Condition at Discharge: Poor Plan - Discharge Summary Discharge Rx Participant: No New Discharge Prescriptions: New Furosemide [Lasix] 40 mg PO BID #60 tablet Levofloxacin [Levaquin] 250 mg PO 1500 tab Magnesium Hydroxide [Milk of Magnesia Concentrate] 2,400 mg PO DAILY PRN ml PRN Reason: Constipation Metoprolol Tartrate [Lopressor] 25 mg PO HS tab Metoprolol Tartrate [Lopressor] 50 mg PO DAILY tab Nitroglycerin Sl Tabs [Nitrostat] 0.4 mg SUBLINGUAL Q5M PRN tab PRN Reason: Chest Pain Polyethylene Glycol 3350 [Miralax] 17 gm PO DAILY powd.pack Continue Fluticasone/Salmeterol [Advair 100-50 Diskus] 1 puff INHALATION RT-DAILY@0900 Anastrozole [Arimidex] 1 mg PO DAILY@0900 diphenhydrAMINE HCL [Benadryl] 50 mg PO HS@2100 Cyclobenzaprine [Flexeril] 10 mg PO TID@0600,1400,2200 Acetaminophen Tab [Tylenol] 650 mg PO Q4H PRN PRN Reason: Fever And/ Or Pain HYDROcodone/APAP 7.5-325MG [[place] 7.5-325] 1 tab PO Q6H INSULIN LISPRO (HumaLOG) [humaLOG] 30 units SQ TID@0800,1200,1700 Sodium Bicarbonate Tab 650 mg PO BID@0900,2100 Ferrous Sulfate [Iron (65 MG Elemental)] 325 mg PO DAILY@1700 Docusate [Colace] 100 mg PO DAILY@0900 DULoxetine HCL [Cymbalta] 20 mg PO DAILY@0900 Insulin Glargine,Hum.rec.anlog [Basaglar Kwikpen U-100] 70 unit SQ HS@2100 Aspirin 81 mg PO DAILY@0900 Discontinued Ondansetron [Zofran] 4 mg PO Q8HR PRN PRN Reason: Nausea LORazepam [Ativan] 1 mg PO HS PRN PRN Reason: Anxiety Clindamycin HCl 300 mg PO Q6H Furosemide [Lasix] 20 mg PO DAILY@0900 No Action Darbepoetin Gurwinder [Aranesp] 40 mcg SQ TU@0900 Discharge Medication List Fluticasone/Salmeterol [Advair 100-50 Diskus] 1 puff INHALATION RT-DAILY@0900 [History] Anastrozole [Arimidex] 1 mg PO DAILY@0900 09/30/14 [History] diphenhydrAMINE HCL [Benadryl] 50 mg PO HS@2100 12/16/17 [History] Cyclobenzaprine [Flexeril] 10 mg PO TID@0600,1400,2200 01/08/18 [History] Acetaminophen Tab [Tylenol] 650 mg PO Q4H PRN 02/20/18 [History] Aspirin 81 mg PO DAILY@0900 02/20/18 [History] DULoxetine HCL [Cymbalta] 20 mg PO DAILY@0900 02/20/18 [History] Darbepoetin Gurwinder [Aranesp] 40 mcg SQ TU@0900 02/20/18 [History] Docusate [Colace] 100 mg PO DAILY@0900 02/20/18 [History] Ferrous Sulfate [Iron (65 MG Elemental)] 325 mg PO DAILY@1700 02/20/18 [History] HYDROcodone/APAP 7.5-325MG [[place] 7.5-325] 1 tab PO Q6H 02/20/18 [History] INSULIN LISPRO (HumaLOG) [humaLOG] 30 units SQ TID@0800,1200,1700 02/20/18 [ History] Insulin Glargine,Hum.rec.anlog [Basaglar Kwikpen U-100] 70 unit SQ HS@2100 02/20 [History] Sodium Bicarbonate Tab 650 mg PO BID@0900,2100 02/20/18 [History] Furosemide [Lasix] 40 mg PO BID #60 tablet 02/28/18 [Rx] Levofloxacin [Levaquin] 250 mg PO 1500 tab 02/28/18 [Rx] Magnesium Hydroxide [Milk of Magnesia Concentrate] 2,400 mg PO DAILY PRN ml [Rx] Metoprolol Tartrate [Lopressor] 25 mg PO HS tab 02/28/18 [Rx] Metoprolol Tartrate [Lopressor] 50 mg PO DAILY tab 02/28/18 [Rx] Nitroglycerin Sl Tabs [Nitrostat] 0.4 mg SUBLINGUAL Q5M PRN tab 02/28/18 [Rx] Polyethylene Glycol 3350 [Miralax] 17 gm PO DAILY powd.pack 02/28/18 [Rx] Follow up Appointment(s)/Referral(s): Tom Han MD [Primary Care Provider] - 1-2 days [facility], [NON-STAFF] - As Needed Michael Ingram MD [STAFF PHYSICIAN] - 3 Weeks
[2018-02-28 11:50] LABS: Glucose,Whole Blood 123 mg/dL (75-99)
--- NOTE | 2018-02-28 11:59 | P.PN ---
Subjective Progress Note Date: 02/28/18 Principal diagnosis: Abdominal pain ascites 68-year-old female suspicion for underlying nonalcoholic fatty liver disease constipation. No appreciable ascites for paracentesis. Patient was placed on a bowel regimen with laxatives stool softeners and had a bowel movement yesterday. Anticipate discharge today. LFTs yesterday within normal limits. Objective - Vital Signs Vital signs: Vital Signs Temp 98.1 F 02/28/18 07:00 Pulse 67 02/28/18 07:00 Resp 16 02/28/18 07:00 BP 103/54 02/28/18 07:00 Pulse Ox 96 02/28/18 07:00 Intake & Output 02/27/18 02/28/18 02/28/18 18:59 06:59 18:59 Intake Total 546 600 200 Output Total 300 500 Balance 546 300 -300 Weight 152.271 kg Intake: Intake, IV Titration 100 Amount Sodium Ferric Gluconat- 100 Sucrose 125 mg In Sodium Chloride 0.9% 100 ml @ 100 mls/hr IVPB DAILY@ 1200 ROS Rx#:[id number] Oral 546 500 200 Output: Urine 300 500 Other: Voiding Method Bedside Commode Bedside Commode # Voids 2 2 # Bowel Movements 0 0 - Exam General appearance: The patient is alert, oriented, in no acute distress. HET: Head is normocephalic and atraumatic. Pupils are equal and reactive. Oropharynx is clear without lesions. Neck: Supple without lymphadenopathy. Trachea midline. Heart: S1 S2. Regular rate and rhythm. Lungs: No crackles or wheezes are heard. Abdomen: Soft, morbidly obese, nontender, nondistended with bowel sounds. No peritoneal signs. No palpable organomegaly or masses. Extremities: Normal skin color and turgor. No cyanosis, rash, ulceration, clubbing, or edema. Radial and pedal pulses are 2/4 bilaterally. Neurological: No focal deficits. Strength and sensation are grossly intact. - Labs CBC & Chem 7: 02/26/18 09:32 02/28/18 07:58 Labs: Abnormal Lab Results - Last 24 Hours (Table) 02/27/18 02/27/18 02/28/18 Range/Units 17:05 20:37 07:58 BUN 40 H (7-17) mg/dL Creatinine 1.77 H (0.52-1.04) mg/dL POC Glucose (mg/dL) 102 H 122 H (75-99) mg/dL Magnesium 2.8 H (1.6-2.3) mg/dL 02/28/18 Range/Units 11:48 BUN (7-17) mg/dL Creatinine (0.52-1.04) mg/dL POC Glucose (mg/dL) 123 H (75-99) mg/dL Magnesium (1.6-2.3) mg/dL Assessment and Plan (1) Abdominal pain Narrative/Plan: Possibly related to constipation functional bowel disorder Current Visit: Yes Status: Acute Code(s): R10.9 - UNSPECIFIED ABDOMINAL PAIN SNOMED Code(s): 43579538 (2) Constipation Current Visit: Yes Status: Acute Code(s): K59.00 - CONSTIPATION, UNSPECIFIED SNOMED Code(s): 66357606 (3) Ascites Narrative/Plan: Suspect underlying nonalcoholic fatty liver disease ascites per CT not amendable for paracentesis at this time. Current Visit: Yes Status: Acute Code(s): R18.8 - OTHER ASCITES SNOMED Code(s): 041907670 Plan: 1. Discharge per medicine. Senokot-S 2 tabs twice a day. MiraLAX 17 g daily. Return to office in 2-3 weeks for reevaluation. Assessment and plan a care discussed with Dr. Ingram
[2018-02-28] MEDS: SODIUM FERRIC GLUCONAT-SUCROSE 125 MG in SODIUM CHLORIDE 0.9% 100 ML IVPB SCH (12:09)
[2018-02-28 15:00] VITALS: BP 147/73; PULSE 62; TEMP 98.3
[2018-02-28] MEDS: LEVOFLOXACIN 250 MG TAB PO SCH (15:28)
== END 2018-02-28 16:00 | DRG 602 ==
LOC: EC 19:49 → 3NMEDONC 02-21 02:20 → 4SSUR 02-21 11:25 → OBSVTOIN 02-22 13:59
PROVIDERS: ADMIT Family Medicine; ATTEND Family Medicine
PROC: 02HV33Z Insertion of Infusion Device into Superior Vena Cava, Percutaneous Approach (ICD-10-PCS; principal; 2018-02-23 13:00)
DX: L03.115 Cellulitis of right lower limb (principal); N17.0 Acute kidney failure with tubular necrosis; I13.0 Hypertensive heart and chronic kidney disease with heart failure and stage 1 through stage 4 chronic kidney disease, or unspecified chronic kidney disease; R18.8 Other ascites; I50.22 Chronic systolic (congestive) heart failure; Z68.43 Body mass index [BMI] 50.0-59.9, adult; L03.116 Cellulitis of left lower limb; E11.22 Type 2 diabetes mellitus with diabetic chronic kidney disease; E11.40 Type 2 diabetes mellitus with diabetic neuropathy, unspecified; E66.01 Morbid (severe) obesity due to excess calories; E87.5 Hyperkalemia; I07.1 Rheumatic tricuspid insufficiency; I27.20 Pulmonary hypertension, unspecified; N14.1 Nephropathy induced by other drugs, medicaments and biological substances; J44.9 Chronic obstructive pulmonary disease, unspecified; K76.0 Fatty (change of) liver, not elsewhere classified; N18.3 Chronic kidney disease, stage 3 (moderate); F17.200 Nicotine dependence, unspecified, uncomplicated; I44.0 Atrioventricular block, first degree; G40.909 Epilepsy, unspecified, not intractable, without status epilepticus; D63.1 Anemia in chronic kidney disease; E61.1 Iron deficiency; E78.5 Hyperlipidemia, unspecified; K21.9 Gastro-esophageal reflux disease without esophagitis; K43.9 Ventral hernia without obstruction or gangrene; K59.00 Constipation, unspecified; M06.9 Rheumatoid arthritis, unspecified; M79.7 Fibromyalgia; T36.8X5A Adverse effect of other systemic antibiotics, initial encounter; T50.8X5A Adverse effect of diagnostic agents, initial encounter; R07.9 Chest pain, unspecified; F41.9 Anxiety disorder, unspecified; F32.9 Major depressive disorder, single episode, unspecified; Z90.710 Acquired absence of both cervix and uterus; Z90.49 Acquired absence of other specified parts of digestive tract; Z90.11 Acquired absence of right breast and nipple; Z79.4 Long term (current) use of insulin; Z79.811 Long term (current) use of aromatase inhibitors; Z79.82 Long term (current) use of aspirin; Z79.899 Other long term (current) drug therapy; Z85.3 Personal history of malignant neoplasm of breast; Z88.5 Allergy status to narcotic agent; Z88.0 Allergy status to penicillin; Z88.8 Allergy status to other drugs, medicaments and biological substances; Z98.51 Tubal ligation status; Z80.1 Family history of malignant neoplasm of trachea, bronchus and lung; Z80.3 Family history of malignant neoplasm of breast; Z82.5 Family history of asthma and other chronic lower respiratory diseases; Z83.3 Family history of diabetes mellitus; Z80.0 Family history of malignant neoplasm of digestive organs; Z82.3 Family history of stroke; Z82.0 Family history of epilepsy and other diseases of the nervous system; Z82.61 Family history of arthritis; Z82.69 Family history of other diseases of the musculoskeletal system and connective tissue; Y92.239 Unspecified place in hospital as the place of occurrence of the external cause
CPT/HCPCS: 36573; 71045; 71275; 74177; 76705; 80048; 80053; 80076; 80202; 82040; 82550; 82553; 82728; 83036; 83540; 83550; 83605; 83735; 84132; 84484; 85025; 85049; 85379; 85610; 85730; 86704; 86706; 86803; 87070; 87075; 87205; 87340; 93005; 94760; 96365; 96366; 96375; 96376; 99285

== ENCOUNTER 2018-04-02 21:59 | Inpatient (IN) | payer MEDICARE ==
[2018-04-02 23:06] LABS: Anisocytosis Slight; Basophils % (A) 0 %; Eosinophils # (A) 0.1 k/uL (0-0.7); Eosinophils % (A) 1 %; HCT 26.8 % (34.0-46.0); HGB 8.6 gm/dL (11.4-16.0); Lymphocytes # (A) 0.6 k/uL (1.0-4.8); Lymphocytes % (A) 8 %; MCH 31.3 pg (25.0-35.0); MCV 97.7 fL (80.0-100.0); Macrocytosis Slight; Mean Platelet Volume 7.3; Monocytes # (A) 0.3 k/uL (0-1.0); Monocytes % (A) 5 %; Neutrophils # (A) 5.8 k/uL (1.3-7.7); Neutrophils % (A) 85 %; RBC 2.74 m/uL (3.80-5.40); RDW 17.1 % (11.5-15.5); WBC 6.9 k/uL (3.8-10.6)
--- NOTE | 2018-04-02 23:08 | ED ---
General Adult HPI - General Chief complaint: Recheck/Abnormal Lab/Rx Stated complaint: edema Time Seen by Provider: 04/02/18 22:18 Source: patient, EMS, RN notes reviewed, old records reviewed Mode of arrival: EMS Limitations: no limitations - History of Present Illness Initial comments: 68-year-old female presents from [facility] for evaluation of confusion and hypoglycemia, as well as increased edema and dyspnea. Patient was noted to have blood sugar in the 60s, she was confused. Patient alert and oriented time my evaluation after glucose. No complaints. Mild worsening dyspnea. No chest pain. No focal numbness or weakness. No headache. Transferring physician did note increased edema and was concerned for heart failure. - Related Data Home Medications Medication Instructions Recorded Confirmed Fluticasone/Salmeterol [Advair 1 puff INHALATION RT-DAILY@0900 06/24/14 04/02/18 100-50 Diskus] Anastrozole [Arimidex] 1 mg PO DAILY@0900 09/30/14 04/02/18 Cyclobenzaprine [Flexeril] 10 mg PO TID@0600,1400,2200 01/08/18 04/02/18 Acetaminophen Tab [Tylenol] 650 mg PO Q4H PRN 02/20/18 04/02/18 Aspirin 81 mg PO DAILY@0900 02/20/18 04/02/18 DULoxetine HCL [Cymbalta] 20 mg PO DAILY@0900 02/20/18 04/02/18 Docusate [Colace] 100 mg PO DAILY@0900 02/20/18 04/02/18 Ferrous Sulfate [Iron (65 MG 325 mg PO DAILY@1700 02/20/18 04/02/18 Elemental)] HYDROcodone/APAP 7.5-325MG [[place] 1 tab PO Q6H 02/20/18 04/02/18 7.5-325] INSULIN LISPRO (HumaLOG) [humaLOG] 30 units SQ TID@0800,1200,1700 02/20/1804/02 Clotrimazole/Betamethasone Dip 1 applic TOPICAL Q12H 04/02/18 04/02/18 [Lotrisone Cream] Darbepoetin Gurwinder [Aranesp] 40 mcg SQ Q7D 04/02/18 04/02/18 Dicyclomine [Bentyl] 10 mg PO Q8H PRN 04/02/18 04/02/18 Hydrophilic Cream [Triad Cream] 1 applic TOPICAL Q12H 04/02/18 04/02/18 Metolazone [Zaroxolyn] 2.5 mg PO DIRECTED 04/02/18 04/02/18 Sennosides [Senna] 8.6 mg PO Q12H 04/02/18 04/02/18 Previous Rx's Medication Instructions Recorded Furosemide [Lasix] 40 mg PO BID #60 tablet 02/28/18 Insulin Glargine,Hum.rec.anlog 30 unit SQ HS@2100 #0 02/28/18 [Basaglar Kwikpen U-100] Metoprolol Tartrate [Lopressor] 25 mg PO HS tab 02/28/18 Metoprolol Tartrate [Lopressor] 50 mg PO DAILY tab 02/28/18 Nitroglycerin Sl Tabs [Nitrostat] 0.4 mg SUBLINGUAL Q5M PRN tab 02/28/18 Polyethylene Glycol 3350 [Miralax] 17 gm PO DAILY powd.pack 02/28/18 Allergies Allergy/AdvReac Type Severity Reaction Status Date / Time codeine Allergy Nausea & Verified 04/02/18 22:12 Vomiting Penicillins Allergy Rash/Hives Verified 04/02/18 22:12 phenobarbital AdvReac Unknown Verified 04/02/18 22:12 phenytoin sodium AdvReac Unknown Verified 04/02/18 22:12 [From Dilantin] phenytoin sodium extended AdvReac Unknown Verified 04/02/18 22:12 [From Dilantin] primidone [From Mysoline] AdvReac Unknown Verified 04/02/18 22:12 Review of Systems ROS Statement: Those systems with pertinent positive or pertinent negative responses have been documented in the HPI. ROS Other: All systems not noted in ROS Statement are negative. Past Medical History Past Medical History: Cancer, COPD, Diabetes Mellitus, Fibromyalgia, Hyperlipidemia, Hypertension, Renal Disease, Rheumatoid Arthritis (RA), Seizure Disorder, Supraventricular Tachycardia (SVT) Additional Past Medical History / Comment(s): IDDM type II, neuropathy bilateral legs/feet and hands, past cellulitis leg, R breast cancer with surgery and chemo, seizures with last time "years" ago, UTI, CKD, UTIs, chronic anemiaDM Type II. Recent dental extraction (all teeth from lower jaw 11/2017) History of Any Multi-Drug Resistant Organisms: None Reported Past Surgical History: Adenoidectomy, Appendectomy, Breast Surgery, Cholecystectomy, Hysterectomy, Orthopedic Surgery, Tonsillectomy, Tubal Ligation Additional Past Surgical History / Comment(s): masectomy right, ganglion cyst right hand, total hysterectomy (hx of tubal pregnancies), lower teeth extracted. Past Anesthesia/Blood Transfusion Reactions: No Reported Reaction Past Psychological History: Anxiety, Depression Smoking Status: Former smoker - Past Family History Father Family Medical History: Cancer, CVA/TIA Additional Family Medical History / Comment(s): 2000 from lung cancer Mother Family Medical History: Cancer, Dementia Additional Family Medical History / Comment(s): 2014 at age 86. Oral & Breast cancer Brother(s) Family Medical History: Asthma, Diabetes Mellitus, Fibromyalgia, Osteoarthritis (OA) Additional Family Medical History / Comment(s): Obesity. Joint replacements General Exam Limitations: no limitations General appearance: alert, in no apparent distress Head exam: Present: atraumatic, normocephalic Eye exam: Present: normal appearance, PERRL ENT exam: Present: normal exam Neck exam: Present: normal inspection. Absent: tenderness, meningismus Respiratory exam: Present: rales, decreased breath sounds. Absent: respiratory distress, wheezes Cardiovascular Exam: Present: regular rate, normal rhythm GI/Abdominal exam: Present: soft. Absent: distended, tenderness Extremities exam: Present: normal capillary refill, pedal edema. Absent: calf tenderness Neurological exam: Present: alert, oriented X3, CN II-XII intact. Absent: motor sensory deficit Psychiatric exam: Present: normal affect, normal mood Skin exam: Present: warm, dry, intact. Absent: cyanosis, diaphoretic Course Vital Signs 04/02/18 04/02/18 22:02 23:59 Temperature 97.8 F Pulse Rate 73 68 Respiratory 16 20 Rate Blood Pressure 115/95 123/61 O2 Sat by Pulse 94 L 95 Oximetry EKG Findings - EKG Comments: EKG Findings:: Sinus rhythm, first-degree AV block, low voltage, prolonged QT, no ST segment elevation, rate of 70, DE interval 212, QRS duration 102, QTC 613 Medical Decision Making - Medical Decision Making 68-year-old female with an episode of confusion likely related to hypoglycemia, resolved. Second issue is increasing edema and dyspnea. Patient found to be in heart failure, EKG shows pulmonary edema and bilateral effusions. Patient has elevated BNP 6600. Creatinine is improved from baseline, potassium 3.1 which is replaced. Hemoglobin is 8.6 which is slightly down trending but stable for this patient. She will be admitted for IV diuresis. - Lab Data Result diagrams: 04/02/18 22:45 04/02/18 22:45 Lab Results 04/02/18 04/02/18 04/02/18 Range/Units 22:45 22:45 22:45 WBC 6.9 (3.8-10.6) k/uL RBC 2.74 L (3.80-5.40) m/uL Hgb 8.6 L (11.4-16.0) gm/dL Hct 26.8 L (34.0-46.0) % MCV 97.7 (80.0-100.0) fL MCH 31.3 (25.0-35.0) pg MCHC 32.0 (31.0-37.0) g/dL RDW 17.1 H (11.5-15.5) % Plt Count 70 L (150-450) k/uL Neutrophils % 85 % Lymphocytes % 8 % Monocytes % 5 % Eosinophils % 1 % Basophils % 0 % Neutrophils # 5.8 (1.3-7.7) k/uL Lymphocytes # 0.6 L (1.0-4.8) k/uL Monocytes # 0.3 (0-1.0) k/uL Eosinophils # 0.1 (0-0.7) k/uL Basophils # 0.0 (0-0.2) k/uL Manual Slide Review Performed Anisocytosis Slight Macrocytosis Slight Ovalocytes Present PT (9.0-12.0) sec INR (<1.2) APTT (22.0-30.0) sec Sodium 138 (137-145) mmol/L Potassium 3.1 L (3.5-5.1) mmol/L Chloride 97 L (98-107) mmol/L Carbon Dioxide 32 H (22-30) mmol/L Anion Gap 9 mmol/L BUN 26 H (7-17) mg/dL Creatinine 1.24 H (0.52-1.04) mg/dL Est GFR (CKD-EPI)AfAm 52 (>60 ml/min/1.73 sqM) Est GFR (CKD-EPI)NonAf 45 (>60 ml/min/1.73 sqM) Glucose 111 H (74-99) mg/dL Calcium 8.7 (8.4-10.2) mg/dL Magnesium 1.8 (1.6-2.3) mg/dL Total Bilirubin 2.0 H (0.2-1.3) mg/dL AST 23 (14-36) U/L ALT 30 (9-52) U/L Alkaline Phosphatase 79 (38-126) U/L Total Creatine Kinase 37 (30-135) U/L CK-MB (CK-2) 0.6 (0.0-2.4) ng/mL CK-MB (CK-2) Rel Index 1.6 Troponin I 0.020 (0.000-0.034) ng/mL NT-Pro-B Natriuret Pep pg/mL Total Protein 6.4 (6.3-8.2) g/dL Albumin 3.1 L (3.5-5.0) g/dL Urine Color Urine Appearance (Clear) Urine pH (5.0-8.0) Ur Specific [place] (1.001-1.035) Urine Protein (Negative) Urine Glucose (UA) (Negative) Urine Ketones (Negative) Urine Blood (Negative) Urine Nitrite (Negative) Urine Bilirubin (Negative) Urine Urobilinogen (<2.0) mg/dL Ur Leukocyte Esterase (Negative) Urine RBC (0-5) /hpf Urine WBC (0-5) /hpf Ur Squamous Epith Cells (0-4) /hpf Urine Bacteria (None) /hpf Hyaline Casts (0-2) /lpf Urine Mucus (None) /hpf 04/02/18 04/02/18 04/02/18 Range/Units 22:45 22:45 22:45 WBC (3.8-10.6) k/uL RBC (3.80-5.40) m/uL Hgb (11.4-16.0) gm/dL Hct (34.0-46.0) % MCV (80.0-100.0) fL MCH (25.0-35.0) pg MCHC (31.0-37.0) g/dL RDW (11.5-15.5) % Plt Count (150-450) k/uL Neutrophils % % Lymphocytes % % Monocytes % % Eosinophils % % Basophils % % Neutrophils # (1.3-7.7) k/uL Lymphocytes # (1.0-4.8) k/uL Monocytes # (0-1.0) k/uL Eosinophils # (0-0.7) k/uL Basophils # (0-0.2) k/uL Manual Slide Review Anisocytosis Macrocytosis Ovalocytes PT 12.2 H (9.0-12.0) sec INR 1.2 H (<1.2) APTT 26.1 (22.0-30.0) sec Sodium (137-145) mmol/L Potassium (3.5-5.1) mmol/L Chloride (98-107) mmol/L Carbon Dioxide (22-30) mmol/L Anion Gap mmol/L BUN (7-17) mg/dL Creatinine (0.52-1.04) mg/dL Est GFR (CKD-EPI)AfAm (>60 ml/min/1.73 sqM) Est GFR (CKD-EPI)NonAf (>60 ml/min/1.73 sqM) Glucose (74-99) mg/dL Calcium (8.4-10.2) mg/dL Magnesium (1.6-2.3) mg/dL Total Bilirubin (0.2-1.3) mg/dL AST (14-36) U/L ALT (9-52) U/L Alkaline Phosphatase (38-126) U/L Total Creatine Kinase (30-135) U/L CK-MB (CK-2) (0.0-2.4) ng/mL CK-MB (CK-2) Rel Index Troponin I (0.000-0.034) ng/mL NT-Pro-B Natriuret Pep 6600 pg/mL Total Protein (6.3-8.2) g/dL Albumin (3.5-5.0) g/dL Urine Color Yellow Urine Appearance Clear (Clear) Urine pH 6.0 (5.0-8.0) Ur Specific [place] 1.008 (1.001-1.035) Urine Protein Negative (Negative) Urine Glucose (UA) Negative (Negative) Urine Ketones Negative (Negative) Urine Blood Negative (Negative) Urine Nitrite Negative (Negative) Urine Bilirubin Negative (Negative) Urine Urobilinogen <2.0 (<2.0) mg/dL Ur Leukocyte Esterase Small H (Negative) Urine RBC 1 (0-5) /hpf Urine WBC 19 H (0-5) /hpf Ur Squamous Epith Cells 1 (0-4) /hpf Urine Bacteria Rare H (None) /hpf Hyaline Casts 7 H (0-2) /lpf Urine Mucus Rare H (None) /hpf Disposition Clinical Impression: Congestive heart failure Disposition: ADMITTED IP TO THIS HOSP Condition: Stable Is patient prescribed a controlled substance at d/c from ED?: No Referrals: Tom Han MD [Primary Care Provider] - 1-2 days Time of Disposition: 00:07 Decision to Admit Reason: Admit from EC Decision Date: 04/03/18 Decision Time: 00:07
[2018-04-02 23:09] LABS: Albumin 3.1 g/dL (3.5-5.0); Calcium 8.7 mg/dL (8.4-10.2); Magnesium 1.8 mg/dL (1.6-2.3); Potassium 3.1 mmol/L (3.5-5.1); Total Protein 6.4 g/dL (6.3-8.2)
[2018-04-02 23:10] LABS: Appearance,Urine Clear (Clear); Bacteria,Urine Rare /hpf; Bilirubin,Urine Negative (Negative); Blood,Urine Negative (Negative); Color,Urine Yellow; Glucose,Urine (UA) Negative (Negative); Hyaline Casts,Urine 7 /lpf (0-2); Ketones,Urine Negative (Negative); Leukocyte Esterase,Urine Small (Negative); Mucus,Urine Rare /hpf; Nitrite,Urine Negative (Negative); Protein,Urine Negative (Negative); RBC,Urine 1 /hpf (0-5); Specific Gravity,Urine 1.008 (1.001-1.035); Squamous Epithelial Cell,Urine 1 /hpf (0-4); Urobilinogen,Urine <2.0 mg/dL (<2.0); WBC,Urine 19 /hpf (0-5)
--- NOTE | 2018-04-02 23:29 | XR ---
EXAM: XR Chest, 2 Views CLINICAL HISTORY: ITS.REASON XR Reason: difficulty breathing TECHNIQUE: Frontal and lateral views of the chest. COMPARISON: 02/20/18 FINDINGS/IMPRESSION: Lateral view is limited by artifact/summation. There is summation on the AP view at the lung bases to a lesser extent. Although accentuated by technique, suspect cardiomegaly. Left lung base opacity suspicious for pleural effusion with adjacent atelectasis and/or infiltrate. Suspected vascular congestion.
[2018-04-02 23:30] LABS: Ovalocytes Present
[2018-04-02 23:32] LABS: Platelet Count 70 k/uL (150-450)
[2018-04-02 23:33] LABS: Creatine Kinase MB 0.6 ng/mL (0.0-2.4); Troponin I 0.02 ng/mL (0.000-0.034)
[2018-04-02] MEDS ORDERED: FUROSEMIDE 10 MG/ML 4 ML VIAL IV STA (23:40)
[2018-04-02 23:58] LABS: INR 1.2 (<1.2); Partial Thromboplastin Time 26.1 sec (22.0-30.0); Prothrombin Time 12.2 sec (9.0-12.0)
[2018-04-03] MEDS ORDERED: NALOXONE 0.4 MG/ML 1 ML VIAL IV PRN (00:01)
[2018-04-03] MEDS ORDERED: NITROGLYCERIN SL TABS 0.4 MG TAB SUBLINGUAL PRN (00:02)
[2018-04-03] MEDS: POTASSIUM CHLORIDE 10 MEQ in WATER FOR INJECTION 1 100ML.BAG IVPB SCH ×4 (00:09→04:30)
[2018-04-03] MEDS ORDERED: METOLAZONE 2.5 MG TAB PO SCH (00:15)
[2018-04-03] MEDS: HYDROcodone/APAP 7.5-325MG 1 EACH TAB PO SCH ×5 (07:22→23:24)
[2018-04-03] MEDS: INSULIN ASPART (NovoLOG) 100 UNIT/ML VIAL SQ SCH ×3 (08:57→17:49)
[2018-04-03] MEDS: FUROSEMIDE 10 MG/ML 4 ML VIAL IV SCH ×2 (08:58→19:52)
[2018-04-03] MEDS: METOPROLOL TARTRATE 50 MG TAB PO SCH (08:58)
[2018-04-03] MEDS: ASPIRIN 81 MG PO SCH (08:58)
[2018-04-03 09:30] LABS: Glucose,Whole Blood 85 mg/dL (75-99)
[2018-04-03 10:12] LABS: Calcium 9.2 mg/dL (8.4-10.2); Potassium 3.7 mmol/L (3.5-5.1)
[2018-04-03 10:27] LABS: Anisocytosis Slight; HCT 29.3 % (34.0-46.0); HGB 9.1 gm/dL (11.4-16.0); Hypochromasia Moderate; MCHC 30.9 g/dL (31.0-37.0); MCV 100.1 fL (80.0-100.0); Macrocytosis Slight; RBC 2.92 m/uL (3.80-5.40); RDW 16.9 % (11.5-15.5); WBC 6.2 k/uL (3.8-10.6)
[2018-04-03 10:32] LABS: Platelet Count 75 k/uL (150-450)
--- NOTE | 2018-04-03 12:11 | ECHOF ---
Referral Reason:CHF MEASUREMENTS -------- HEIGHT: 162.6 cm WEIGHT: 169.2 kg BP: 122/77 RVIDd: 5.0 cm (< 3.3) IVSd: 1.4 cm (0.6 - 1.1) LVIDd: 3.7 cm (3.9 - 5.3) LVPWd: 1.4 cm (0.6 - 1.1) IVSs: 1.4 cm LVIDs: 2.2 cm LVPWs: 2.0 cm Ao Diam: 2.8 cm (2.0 - 3.7) AV Cusp: 1.3 cm (1.5 - 2.6) LA Diam: 3.3 cm (2.7 - 3.8) MV EXCURSION: 21.475 mm (> 18.000) MV EF SLOPE: 70 mm/s (70 - 150) EPSS: 0.8 cm MV E Kamaljit: 0.65 m/s MV DecT: 227 ms MV A Kamaljit: 0.74 m/s MV E/A Ratio: 0.89 AV maxP.47 mmHg AV meanP.12 mmHg RAP: 5.00 mmHg RVSP: 18.63 mmHg FINDINGS -------- Sinus rhythm. This was a technically difficult study with suboptimal views. This was a technically difficult stud y with suboptimal apical views. Morbid Obesity The left ventricular size is normal. There is mild concentric left ventricular hypertrophy. Overa ll left ventricular systolic function is low-normal with, an EF between 50 - 55 %. There is paradox ical/dysynergic septal motion consistent with right ventricular volume overload and/or elevated right ventricular end-diastolic pressure. The right ventricle is severely enlarged. The left atrial size is normal. The right atrium was not well visualized. Lumason used Aortic valve is trileaflet and is mildly thickened. There is mild aortic stenosis present. Peak/m reynold gradient across the Aortic Valve is 29.47mmHg / 16.12mmHg. The mitral valve was not well visualized. There is trace mitral regurgitation. The tricuspid valve was not well visualized. Trace tricuspid regurgitation present. The right suzi tricular systolic pressure, as measured by Doppler, is 18.63mmHg. The pulmonic valve was not well visualized. The aortic root size is normal. IVC Not well visulized. The pericardium is normal. CONCLUSIONS -------- 1. Sinus rhythm. 2. This was a technically difficult study with suboptimal views. 3. This was a technically difficult study with suboptimal apical views. 4. Morbid Obesity 5. The left ventricular size is normal. 6. There is mild concentric left ventricular hypertrophy. 7. Overall left ventricular systolic function is low-normal with, an EF between 50 - 55 %. 8. There is paradoxical/dysynergic septal motion consistent with right ventricular volume overload an d/or elevated right ventricular end-diastolic pressure. 9. The right ventricle is severely enlarged. 10. The left atrial size is normal. 11. The right atrium was not well visualized. 12. Lumason used 13. Aortic valve is trileaflet and is mildly thickened. 14. There is mild aortic stenosis present. 15. Peak/mean gradient across the Aortic Valve is 29.47mmHg / 16.12mmHg. 16. The mitral valve was not well visualized. 17. There is trace mitral regurgitation. 18. The tricuspid valve was not well visualized. 19. Trace tricuspid regurgitation present. 20. The right ventricular systolic pressure, as measured by Doppler, is 18.63mmHg. 21. The pulmonic valve was not well visualized. 22. The aortic root size is normal. 23. IVC Not well visulized. 24. The pericardium is normal. MACHINIST JOB SETTER: Jeniffer Delgado RDCS
[2018-04-03 12:34] LABS: Glucose,Whole Blood 107 mg/dL (75-99)
[2018-04-03] MEDS ORDERED: Potassium Replacement Protocol 1 EACH MISC MISCELLANE PRN (14:12)
[2018-04-03] MEDS ORDERED: DICYCLOMINE 10 MG CAP PO PRN (14:15)
--- NOTE | 2018-04-03 14:20 | P.HPIM ---
History of Present Illness This is a pleasant 68 years old female with past medical history of diabetes mellitus, COPD, fibromyalgia, hypertension, hyperlipidemia, rheumatoid arthritis , seizure disorder, SVT, diabetic nephropathy, history of right breast cancer status post surgery and chemotherapy, CKD, chronic anemia. Patient follows with Dr. whitehead as outpt. She presents this time with increasing edema and dyspnea, hypoglycemia and altered mental status. Patient states that she was at custodial when she got a fist that's where she was transferred. She was complaining of from worsening leg swelling and shortness of breath for the last few days to a week. Patient also gave history of inability to a walking since December of last year, when at that time she had a fall.And she complains from chronic leg pain but not recently worsening. Patient also complains from mild abdominal pain, around the umbilicus, nonspecific, nonradiating, no change in urine bowel habits with no diarrhea. No nausea vomiting. She is eating with no problem. Vitals show new blood pressure 114/62, saturating 93% on room air, patient is afebrile. Creatinine is elevated at 1.1-1.2, which is at baseline. GFR is 57, liver enzymes not elevated. Troponin is negative. WBC is within normal but patient has anemia with hemoglobin 9.1, thrombocytopenia with 75, diffusely patient has platelet level between 90-140 5K. INR 1.2 chest x-ray showing left lung pleural effusion with pulmonary congestion. Ejection fraction: 50-55%. In the emergency room patient got 1 dose of Lasix. Continue wound and 40 mg twice a day. Patient told us., Metoprolol, and Levemir Review of Systems CONSTITUTIONAL: No fever, no malaise, no fatigue. HEENT: No recent visual problems or hearing problems. Denied any sore throat. CARDIOVASCULAR: No orthopnea, PND, no palpitations, no syncope. PULMONARY: No shortness of breath, no cough, no hemoptysis. GASTROINTESTINAL: No diarrhea, no nausea, no vomiting, no abdominal pain. Normoactive bowel sounds. NEUROLOGICAL: No headaches, no weakness, no numbness. HEMATOLOGICAL: Denies any bleeding or petechiae. GENITOURINARY: Denies any burning micturition, frequency, or urgency. MUSCULOSKELETAL/RHEUMATOLOGICAL: Denies any joint pain, swelling, or any muscle pain. ENDOCRINE: Denies any polyuria or polydipsia. Past Medical History Past Medical History: Cancer, COPD, Diabetes Mellitus, Fibromyalgia, Hyperlipidemia, Hypertension, Renal Disease, Rheumatoid Arthritis (RA), Seizure Disorder, Supraventricular Tachycardia (SVT) Additional Past Medical History / Comment(s): IDDM type II, neuropathy bilateral legs/feet and hands, past cellulitis leg, R breast cancer with surgery and chemo, seizures with last time "years" ago, UTI, CKD, UTIs, chronic anemiaDM Type II. Recent dental extraction (all teeth from lower jaw 11/2017) History of Any Multi-Drug Resistant Organisms: None Reported Past Surgical History: Adenoidectomy, Appendectomy, Breast Surgery, Cholecystectomy, Hysterectomy, Orthopedic Surgery, Tonsillectomy, Tubal Ligation Additional Past Surgical History / Comment(s): masectomy right, ganglion cyst right hand, total hysterectomy (hx of tubal pregnancies), lower teeth extracted. Past Anesthesia/Blood Transfusion Reactions: No Reported Reaction Past Psychological History: Anxiety, Depression Additional Psychological History / Comment(s): Pt currently is at [facility] for rehab. She needs assist with ADLS except feeds self. She states up until just lately she was getting up with a walker some.Her daughter lives with her. No experience. Did not work outside of the home. No international travel. There is a pet dog in the home. No alcohol use Smoking Status: Former smoker Past Alcohol Use History: None Reported Additional Past Alcohol Use History / Comment(s): Pt started smoking in 1971 and qut in December 2017. Per patient she smoked 1-2 cigarettes a day after meals. Past Drug Use History: None Reported - Past Family History Father Family Medical History: Cancer, CVA/TIA Additional Family Medical History / Comment(s): 2000 from lung cancer Mother Family Medical History: Cancer, Dementia Additional Family Medical History / Comment(s): 2014 at age 86. Oral & Breast cancer Brother(s) Family Medical History: Asthma, Diabetes Mellitus, Fibromyalgia, Osteoarthritis (OA) Additional Family Medical History / Comment(s): Obesity. Joint replacements Medications and Allergies Home Medications Medication Instructions Recorded Confirmed Type Fluticasone/Salmeterol [Advair 1 puff INHALATION RT-DAILY@0900 06/24/14 History 100-50 Diskus] Anastrozole [Arimidex] 1 mg PO DAILY@0900 08/18/15 02/18/19 History Cyclobenzaprine [Flexeril] 10 mg PO TID@0600,1400,2200 01/08/18 04/02/18 History Acetaminophen Tab [Tylenol] 650 mg PO Q4H PRN 02/20/18 04/02/18 History Aspirin 81 mg PO DAILY@0900 02/20/18 04/02/18 History DULoxetine HCL [Cymbalta] 20 mg PO DAILY@0900 02/20/18 04/02/18 History Docusate [Colace] 100 mg PO DAILY@0902/20/18 04/02/18 History Ferrous Sulfate [Iron (65 MG 325 mg PO DAILY@1700 02/20/18 04/02/18 History Elemental)] HYDROcodone/APAP 7.5-325MG [[place] 1 tab PO Q6H 02/20/18 04/02/18 History 7.5-325] INSULIN LISPRO (HumaLOG) [humaLOG] 30 units SQ TID@0800,1200,1700 02/20/1804/02 History Furosemide [Lasix] 40 mg PO BID #60 tablet 02/28/18 04/02/18 Rx Insulin Glargine,Hum.rec.anlog 30 unit SQ HS@2100 #0 02/28/18 04/02/18 Rx [Basaglar Kwikpen U-100] Metoprolol Tartrate [Lopressor] 25 mg PO HS tab 02/28/18 04/02/18 Rx Metoprolol Tartrate [Lopressor] 50 mg PO DAILY tab 02/28/18 04/02/18 Rx Nitroglycerin Sl Tabs [Nitrostat] 0.4 mg SUBLINGUAL Q5M PRN tab 02/28/18 Rx Polyethylene Glycol 3350 [Miralax] 17 gm PO DAILY powd.pack 02/28/18 04/02/18 Rx Clotrimazole/Betamethasone Dip 1 applic TOPICAL Q12H 04/02/18 04/02/18 History [Lotrisone Cream] Darbepoetin Gurwinder [Aranesp] 40 mcg SQ Q7D 04/02/18 04/02/18 History Dicyclomine [Bentyl] 10 mg PO Q8H PRN 04/02/18 04/02/18 History Hydrophilic Cream [Triad Cream] 1 applic TOPICAL Q12H 04/02/18 04/02/18 History Metolazone [Zaroxolyn] 2.5 mg PO DIRECTED 04/02/18 04/02/18 History Sennosides [Senna] 8.6 mg PO Q12H 04/02/18 04/02/18 History Allergies Allergy/AdvReac Type Severity Reaction Status Date / Time codeine Allergy Nausea & Verified 04/02/18 22:12 Vomiting Penicillins Allergy Rash/Hives Verified 04/02/18 22:12 phenobarbital AdvReac Unknown Verified 04/02/18 22:12 phenytoin sodium AdvReac Unknown Verified 04/02/18 22:12 [From Dilantin] phenytoin sodium extended AdvReac Unknown Verified 04/02/18 22:12 [From Dilantin] primidone [From Mysoline] AdvReac Unknown Verified 04/02/18 22:12 Physical Exam Vitals: Vital Signs Temp Pulse Pulse Resp BP BP Pulse Ox 04/03/18 11:55 73 16 114/62 93 L 04/03/18 07:49 98.0 F 83 18 152/77 97 04/03/18 07:00 82 12 157/90 04/03/18 06:30 85 13 132/70 04/03/18 06:00 80 15 148/75 04/03/18 05:30 86 14 135/81 04/03/18 05:00 79 12 137/68 04/03/18 04:30 79 15 141/88 97 04/03/18 04:00 84 18 122/77 04/03/18 03:30 79 12 118/84 04/03/18 03:00 80 20 125/111 98 04/03/18 02:30 81 19 98 04/03/18 02:00 75 11 L 100 04/03/18 01:30 70 12 99 04/03/18 01:00 71 11 L 108/55 90 L 04/03/18 00:30 66 12 123/61 97 04/03/18 00:00 66 16 123/61 96 04/02/18 23:59 68 20 123/61 95 04/02/18 22:02 97.8 F 73 16 115/95 94 L Intake and Output 04/02/18 04/03/1804/03/19 22:59 06:59 14:59 Intake Total 120 Balance 120 Intake: Oral 120 Other: Voiding Method Diaper Weight 169.19 kg GENERAL: The patient is alert and oriented x3, not in any acute distress. Obese HEENT: Pupils are round and equally reacting to light. EOMI. No scleral icterus. No conjunctival pallor. Normocephalic, atraumatic. No pharyngeal erythema. No thyromegaly. CARDIOVASCULAR: S1 and S2 present. No murmurs, rubs, or gallops. -PULMONARY: Chest is clear to auscultation, decreased breath sounds, hard to hear but may be best with crepitation scattered wheezing ABDOMEN: Soft, nontender, nondistended, normoactive bowel sounds. No palpable organomegaly. MUSCULOSKELETAL: No joint swelling or deformity. -EXTREMITIES: No cyanosis, clubbing,. Bilateral leg edema NEUROLOGICAL: Gross neurological examination did not reveal any focal deficits. SKIN: No rashes. Results CBC & Chem 7: 04/03/18 09:38 04/03/18 09:38 Labs: Abnormal Lab Results - Last 24 Hours (Table) 04/02/18 04/02/18 04/02/18 Range/Units 22:45 22:45 22:45 RBC 2.74 L (3.80-5.40) m/uL Hgb 8.6 L (11.4-16.0) gm/dL Hct 26.8 L (34.0-46.0) % MCV (80.0-100.0) fL MCHC (31.0-37.0) g/dL RDW 17.1 H (11.5-15.5) % Plt Count 70 L (150-450) k/uL Lymphocytes # 0.6 L (1.0-4.8) k/uL PT 12.2 H (9.0-12.0) sec INR 1.2 H (<1.2) Potassium 3.1 L (3.5-5.1) mmol/L Chloride 97 L (98-107) mmol/L Carbon Dioxide 32 H (22-30) mmol/L BUN 26 H (7-17) mg/dL Creatinine 1.24 H (0.52-1.04) mg/dL Glucose 111 H (74-99) mg/dL POC Glucose (mg/dL) (75-99) mg/dL Total Bilirubin 2.0 H (0.2-1.3) mg/dL Albumin 3.1 L (3.5-5.0) g/dL Ur Leukocyte Esterase (Negative) Urine WBC (0-5) /hpf Urine Bacteria (None) /hpf Hyaline Casts (0-2) /lpf Urine Mucus (None) /hpf 04/02/18 04/03/18 04/03/18 Range/Units 22:45 09:38 09:38 RBC 2.92 L (3.80-5.40) m/uL Hgb 9.1 L (11.4-16.0) gm/dL Hct 29.3 L (34.0-46.0) % MCV 100.1 H (80.0-100.0) fL MCHC 30.9 L (31.0-37.0) g/dL RDW 16.9 H (11.5-15.5) % Plt Count 75 L (150-450) k/uL Lymphocytes # (1.0-4.8) k/uL PT (9.0-12.0) sec INR (<1.2) Potassium (3.5-5.1) mmol/L Chloride (98-107) mmol/L Carbon Dioxide 33 H (22-30) mmol/L BUN 25 H (7-17) mg/dL Creatinine 1.15 H (0.52-1.04) mg/dL Glucose (74-99) mg/dL POC Glucose (mg/dL) (75-99) mg/dL Total Bilirubin (0.2-1.3) mg/dL Albumin (3.5-5.0) g/dL Ur Leukocyte Esterase Small H (Negative) Urine WBC 19 H (0-5) /hpf Urine Bacteria Rare H (None) /hpf Hyaline Casts 7 H (0-2) /lpf Urine Mucus Rare H (None) /hpf 04/03/18 Range/Units 12:31 RBC (3.80-5.40) m/uL Hgb (11.4-16.0) gm/dL Hct (34.0-46.0) % MCV (80.0-100.0) fL MCHC (31.0-37.0) g/dL RDW (11.5-15.5) % Plt Count (150-450) k/uL Lymphocytes # (1.0-4.8) k/uL PT (9.0-12.0) sec INR (<1.2) Potassium (3.5-5.1) mmol/L Chloride (98-107) mmol/L Carbon Dioxide (22-30) mmol/L BUN (7-17) mg/dL Creatinine (0.52-1.04) mg/dL Glucose (74-99) mg/dL POC Glucose (mg/dL) 107 H (75-99) mg/dL Total Bilirubin (0.2-1.3) mg/dL Albumin (3.5-5.0) g/dL Ur Leukocyte Esterase (Negative) Urine WBC (0-5) /hpf Urine Bacteria (None) /hpf Hyaline Casts (0-2) /lpf Urine Mucus (None) /hpf Thrombosis Risk Factor Assmnt - Choose All That Apply Any of the Below Risk Factors Present?: Yes Each Factor Represents 1 point: Heart failure (<1month), Obesity (BMI >25), Swollen legs (current) Other Risk Factors: Yes Each Risk Factor Represents 2 Points: Age 61-74 years Thrombosis Risk Factor Assessment Total Risk Factor Score: 5 Thrombosis Risk Factor Assessment Level: High Risk Assessment and Plan Assessment: Acute on chronic diastolic congestive heart failure History of type 2 diabetes mellitus Diabetic neuropathy Diabetic nephropathy Chronic kidney disease stage III Hypertension Hyperlipidemia History of COPD, in mild acute exacerbation History of fibromyalgia History of rheumatoid arthritis History of seizure disorder History of SVT History of right breast cancer status post surgery and chemotherapy Plan: Labs and medication were reviewed.. Continue same treatment. Continue with symptomatic treatment. Resume home medication. Monitor lytes and vitals. DVT and GI prophylaxis. Further recommendations of the clinical course of the patient DVT prophylaxis: Subcutaneous heparin GI Prophylaxis: Pepcid PT/OT: Pending Prognosis is guarded
[2018-04-03] MEDS ORDERED: POTASSIUM CHLORIDE ER 20 MEQ TAB.ER PO SCH (15:00)
--- NOTE | 2018-04-03 15:24 | US ---
EXAMINATION TYPE: US venous doppler duplex LE DATE OF EXAM: 04/03/2018 2:49 PM COMPARISON: None CLINICAL HISTORY: R/O DVT. Bilateral leg pain. SIDE PERFORMED: Bilateral TECHNIQUE: The lower extremity deep venous system is examined utilizing real time linear array sonog rubio with graded compression, doppler sonography and color-flow sonography. VESSELS IMAGED: External Iliac Vein (EIV) Common Femoral Vein Deep Femoral Vein Greater Saphenous Vein * Femoral Vein Popliteal Vein- not visualized bilaterally Small Saphenous Vein *- not visualized bilaterally Proximal Calf Veins- not visualized bilaterally (* superficial vessels) Extremely limited exam due to patient body habitus and patient unable to tolerate exam Right Leg: Appears negative for acute DVT. Popliteal vein, small saph and proximal calf veins not v isualized due to patient unable to tolerate Left Leg: Appears negative for acute DVT. Popliteal vein, small saph and proximal calf veins not vi sualized due to patient unable to tolerate IMPRESSION: 1. Limited exam as discussed above with the bilateral distal femoral vein, popliteal veins and infrap opliteal vasculature not visualized as discussed above. Remaining deep venous structures demonstrate no diagnostic evidence of DVT
[2018-04-03] MEDS: CLOTRIMAZOLE/BETAMETH 1-0.05% CREAM 45 GM TUBE TOPICAL SCH ×2 (15:56→19:52)
[2018-04-03] MEDS: HYDROPHILIC CREAM 180 GM TUBE TOPICAL SCH ×2 (15:56→19:52)
[2018-04-03 16:38] LABS: Glucose,Whole Blood 125 mg/dL (75-99)
[2018-04-03] MEDS: FERROUS SULFATE 325 MG TAB PO SCH (17:54)
[2018-04-03] MEDS: SENNOSIDES 8.6 MG TAB PO SCH ×2 (17:54→19:51)
[2018-04-03] MEDS ORDERED: DARBEPOETIN ALFA 40 MCG/0.4 ML SYRINGE SQ SCH (18:00)
[2018-04-03] MEDS: SPIRONOLACTONE 25 MG TAB PO SCH (19:51)
[2018-04-03] MEDS: METOPROLOL TARTRATE 25 MG TAB PO SCH (19:51)
[2018-04-03 20:49] LABS: Glucose,Whole Blood 137 mg/dL (75-99)
[2018-04-03] MEDS ORDERED: INSULIN DETEMIR (LEVEMIR) 100 UNIT/ML SYR SQ SCH (21:00)
[2018-04-03] MEDS: INSULIN DETEMIR (LEVEMIR) 100 UNIT/ML SYR SQ SCH (21:12)
[2018-04-03] MEDS: ACETAMINOPHEN TAB 325 MG TAB PO PRN (21:12)
[2018-04-03] MEDS: SYMBICORT 80-4.5 MCG INHALER INHALATION SCH ×2 (21:26→21:31)
[2018-04-04 05:44] LABS: Glucose,Whole Blood 109 mg/dL (75-99)
[2018-04-04 06:28] LABS: Anisocytosis Slight; Basophils % (A) 0 %; Eosinophils # (A) 0.1 k/uL (0-0.7); Eosinophils % (A) 3 %; HCT 27.8 % (34.0-46.0); HGB 8.6 gm/dL (11.4-16.0); Hypochromasia Slight; Lymphocytes # (A) 0.6 k/uL (1.0-4.8); Lymphocytes % (A) 17 %; MCH 30.7 pg (25.0-35.0); MCV 99.2 fL (80.0-100.0); Macrocytosis Slight; Monocytes # (A) 0.2 k/uL (0-1.0); Monocytes % (A) 6 %; Neutrophils # (A) 2.5 k/uL (1.3-7.7); Neutrophils % (A) 70 %; WBC 3.5 k/uL (3.8-10.6)
[2018-04-04 06:48] LABS: Platelet Count 77 k/uL (150-450)
[2018-04-04 06:54] LABS: Potassium 3.4 mmol/L (3.5-5.1)
[2018-04-04] MEDS: SYMBICORT 80-4.5 MCG INHALER INHALATION SCH ×2 (08:32→19:28)
[2018-04-04] MEDS: ASPIRIN 81 MG PO SCH (08:44)
[2018-04-04] MEDS: SPIRONOLACTONE 25 MG TAB PO SCH ×2 (08:44→21:57)
[2018-04-04] MEDS: METOPROLOL TARTRATE 50 MG TAB PO SCH (08:44)
[2018-04-04] MEDS: HYDROcodone/APAP 7.5-325MG 1 EACH TAB PO SCH ×3 (08:45→21:57)
[2018-04-04] MEDS: SENNOSIDES 8.6 MG TAB PO SCH ×2 (08:45→21:57)
[2018-04-04] MEDS: ANASTROZOLE 1 MG TAB PO SCH (08:45)
[2018-04-04] MEDS: DOCUSATE 100 MG CAP PO SCH (08:45)
[2018-04-04] MEDS: INSULIN ASPART (NovoLOG) 100 UNIT/ML VIAL SQ SCH ×3 (08:45→17:58)
[2018-04-04] MEDS: HYDROPHILIC CREAM 180 GM TUBE TOPICAL SCH ×2 (08:46→21:57)
[2018-04-04] MEDS: DULoxetine HCL 20 MG CAPSULE.DR PO SCH (08:46)
[2018-04-04] MEDS: POLYETHYLENE GLYCOL 3350 17 GM POWD.PACK PO SCH (08:46)
[2018-04-04] MEDS: FUROSEMIDE 10 MG/ML 4 ML VIAL IV SCH ×2 (08:46→21:56)
[2018-04-04] MEDS: CLOTRIMAZOLE/BETAMETH 1-0.05% CREAM 45 GM TUBE TOPICAL SCH ×2 (09:01→21:57)
--- NOTE | 2018-04-04 09:44 | CONS ---
CONSULTATION Mrs. Zuniga is a 68-year-old female who is seen for cardiac evaluation. This patient's old chart, medical records reviewed. Patient currently is at [facility] with rehab since January. Patient was brought to the emergency room because she had an episode of confusion and hypoglycemia as well as patient was noticed to have increased swelling in the legs. Patient was found to have a low blood sugar and she improved. Patient has been having some shortness of breath. She is hardly able to walk and she had more swelling in the legs. This patient's previous echocardiogram has showed significant right-sided enlargement with a pulmonary hypertension. Left ventricular systolic function was normal. The echocardiogram done yesterday again shows right- sided enlargement with flattening of the septum with suggestive pulmonary hypertension. HOME MEDICATIONS: Include Advair, Arimidex, Tylenol, Cymbalta, , Bentyl cream, Zaroxolyn 2.5 mg daily and senna. Patient is on metoprolol tartrate 50 mg in the morning and 25 mg in the evening. PAST MEDICAL HISTORY: Includes history of appendicectomy, breast surgery, cholecystectomy, hysterectomy, orthopedic surgery, history of seizures, history of bilateral swelling and neuropathy, rheumatoid arthritis, and history of supraventricular tachycardia. PHYSICAL EXAMINATION: At present reveals a 68-year-old female who is obesely built, does not appear to be in any acute distress at present. Patient's blood pressure was 123/61 mmHg, oxygen saturation was 95%. HEENT examination is negative. Neck is supple. Jugular venous pressure is elevated. Both the carotid pulses are felt. There is no bruit. Chest is symmetrical. Heart, the PMI is not felt. First and second heart sounds are normal. Lungs examination reveals bilateral few scattered wheezes. Abdomen is negative. Extremities at 2+ pedal edema. Patient's electrolytes showed potassium of 3.1, creatinine is 1.24. Patient's hemoglobin is 8.6 and MCV is 97. The patient's proBNP level is 6600. FINAL IMPRESSION: 1. This patient is admitted with episodes of confusion, secondary to hypoglycemia. 2. Patient has noticed increased right-sided increased swelling in the legs so patient has a predominantly right-sided heart failure with severe degree of pulmonary hypertension. It is due to the combination of COPD and maybe underlying sleep apnea. Her left ventricular systolic function is normal. 3. History of hypertension. RECOMMENDATIONS: I will recommend to aggressively diurese the patient. We will start the patient on Lasix drip. Aldactone would be added and Zaroxolyn will be continued. Further workup for anemia is suggested and if he is sees iron deficient, she will benefit from iron supplementation. MMMADELYNL / IJN: [id number] /
[2018-04-04 11:46] LABS: Glucose,Whole Blood 134 mg/dL (75-99)
[2018-04-04 13:11] LABS: Reticulocyte % 2.9 % (0.5-2.0)
--- NOTE | 2018-04-04 15:59 | P.PN ---
Subjective This is a pleasant 68 years old female with past medical history of diabetes mellitus, COPD, fibromyalgia, hypertension, hyperlipidemia, rheumatoid arthritis , seizure disorder, SVT, diabetic nephropathy, history of right breast cancer status post surgery and chemotherapy, CKD, chronic anemia. Patient follows with Dr. whitehead as outpt. She presents this time with increasing edema and dyspnea, hypoglycemia and altered mental status. Patient states that she was at longterm when she got a fist that's where she was transferred. She was complaining of from worsening leg swelling and shortness of breath for the last few days to a week. Patient also gave history of inability to a walking since December of last year, when at that time she had a fall.And she complains from chronic leg pain but not recently worsening. Patient also complains from mild abdominal pain, around the umbilicus, nonspecific, nonradiating, no change in urine bowel habits with no diarrhea. No nausea vomiting. She is eating with no problem. Vitals show new blood pressure 114/62, saturating 93% on room air, patient is afebrile. Creatinine is elevated at 1.1-1.2, which is at baseline. GFR is 57, liver enzymes not elevated. Troponin is negative. WBC is within normal but patient has anemia with hemoglobin 9.1, thrombocytopenia with 75, diffusely patient has platelet level between 90-140 5K. INR 1.2 chest x-ray showing left lung pleural effusion with pulmonary congestion. Ejection fraction: 50-55%. In the emergency room patient got 1 dose of Lasix. Continue wound and 40 mg twice a day. Patient told us., Metoprolol, and Levemir 04/04/2018 Patient today feels a little better regarding her dyspnea, she is coughing a little bit of green phlegm. Hemoglobin 8.6. Platelet 77. Creatinine stable at 1.23. Doppler ultrasound of the lower extremity is negative for DVT. Cardiology input is appreciated and they recommended Lasix drip and adding Aldactone on the top of Zaroxolyn. She was looks controlled. After discussion with the son who wanted to keep his mother the hospital for a week because states that she has recurrent acute CHF exacerbation that she comes to the hospital every 2 weeks. Explained to him the risks and benefits and agrees that she can be discharged when she is ready and she needs closer follow-up with her doctor upon discharge. Also he was concerned about his mother drinking a lot of pop. We'll call nutritional consult .1 Objective - Vital Signs Vital signs: Vital Signs Temp 99.1 F 04/04/18 08:00 Pulse 63 04/04/18 12:00 Resp 16 04/04/18 12:00 BP 113/87 04/04/18 12:00 Pulse Ox 96 04/04/18 12:00 Intake & Output 04/03/18 04/04/18 04/04/18 18:59 06:59 18:59 Intake Total 410 Output Total 800 Balance 410 -800 Weight 169.19 kg 156.5 kg Intake: Oral 410 Output: Urine 800 Other: Voiding Method Diaper Diaper Diaper Incontinent Incontinent Incontinent # Voids 2 0 - Exam GENERAL: The patient is alert and oriented x3, not in any acute distress. Obese HEENT: Pupils are round and equally reacting to light. EOMI. No scleral icterus. No conjunctival pallor. Normocephalic, atraumatic. No pharyngeal erythema. No thyromegaly. CARDIOVASCULAR: S1 and S2 present. No murmurs, rubs, or gallops. -PULMONARY: Chest is clear to auscultation, decreased breath sounds, hard to hear but may be best with crepitation scattered wheezing ABDOMEN: Soft, nontender, nondistended, normoactive bowel sounds. No palpable organomegaly. MUSCULOSKELETAL: No joint swelling or deformity. -EXTREMITIES: No cyanosis, clubbing,. Bilateral leg edema NEUROLOGICAL: Gross neurological examination did not reveal any focal deficits. SKIN: No rashes. - Labs CBC & Chem 7: 04/04/18 05:58 04/04/18 05:58 Labs: Abnormal Lab Results - Last 24 Hours (Table) 04/03/18 04/03/18 04/04/18 Range/Units 16:35 20:47 05:43 WBC (3.8-10.6) k/uL RBC (3.80-5.40) m/uL Hgb (11.4-16.0) gm/dL Hct (34.0-46.0) % RDW (11.5-15.5) % Plt Count (150-450) k/uL Lymphocytes # (1.0-4.8) k/uL Retic Count (0.5-2.0) % Potassium (3.5-5.1) mmol/L Chloride (98-107) mmol/L Carbon Dioxide (22-30) mmol/L BUN (7-17) mg/dL Creatinine (0.52-1.04) mg/dL Glucose (74-99) mg/dL POC Glucose (mg/dL) 125 H 137 H 109 H (75-99) mg/dL 04/04/18 04/04/18 04/04/18 Range/Units 05:58 05:58 10:45 WBC 3.5 L (3.8-10.6) k/uL RBC 2.80 L (3.80-5.40) m/uL Hgb 8.6 L (11.4-16.0) gm/dL Hct 27.8 L (34.0-46.0) % RDW 17.0 H (11.5-15.5) % Plt Count 77 L (150-450) k/uL Lymphocytes # 0.6 L (1.0-4.8) k/uL Retic Count 2.9 H (0.5-2.0) % Potassium 3.4 L (3.5-5.1) mmol/L Chloride 97 L (98-107) mmol/L Carbon Dioxide 37 H (22-30) mmol/L BUN 23 H (7-17) mg/dL Creatinine 1.13 H (0.52-1.04) mg/dL Glucose 100 H (74-99) mg/dL POC Glucose (mg/dL) (75-99) mg/dL 04/04/18 Range/Units 11:44 WBC (3.8-10.6) k/uL RBC (3.80-5.40) m/uL Hgb (11.4-16.0) gm/dL Hct (34.0-46.0) % RDW (11.5-15.5) % Plt Count (150-450) k/uL Lymphocytes # (1.0-4.8) k/uL Retic Count (0.5-2.0) % Potassium (3.5-5.1) mmol/L Chloride (98-107) mmol/L Carbon Dioxide (22-30) mmol/L BUN (7-17) mg/dL Creatinine (0.52-1.04) mg/dL Glucose (74-99) mg/dL POC Glucose (mg/dL) 134 H (75-99) mg/dL Assessment and Plan Assessment: Acute on chronic diastolic congestive heart failure History of type 2 diabetes mellitus Diabetic neuropathy Diabetic nephropathy Chronic kidney disease stage III Hypertension Hyperlipidemia History of COPD, in mild acute exacerbation History of fibromyalgia History of rheumatoid arthritis History of seizure disorder History of SVT History of right breast cancer status post surgery and chemotherapy Plan: Labs and medication were reviewed.. Continue same treatment. Continue with symptomatic treatment. Resume home medication. Monitor lytes and vitals. DVT and GI prophylaxis. Further recommendations of the clinical course of the patient DVT prophylaxis: Subcutaneous heparin GI Prophylaxis: Pepcid PT/OT: Pending Prognosis is guarded
[2018-04-04] MEDS: FERROUS SULFATE 325 MG TAB PO SCH (16:00)
[2018-04-04] MEDS: POTASSIUM CHLORIDE ER 20 MEQ TAB.ER PO SCH ×2 (16:00→17:58)
[2018-04-04 17:09] LABS: Glucose,Whole Blood 94 mg/dL (75-99)
[2018-04-04] MEDS: METOLAZONE 5 MG TAB PO SCH (17:57)
[2018-04-04 20:17] LABS: Glucose,Whole Blood 89 mg/dL (75-99)
[2018-04-04] MEDS: INSULIN DETEMIR (LEVEMIR) 100 UNIT/ML SYR SQ SCH (21:18)
[2018-04-04] MEDS: METOPROLOL TARTRATE 25 MG TAB PO SCH (21:57)
--- NOTE | 2018-04-04 22:29 | CONS ---
CONSULTATION DATE OF SERVICE: April 04, 2018 The patient's medical records reviewed. This patient was admitted with confusion and increasing leg edema. Patient's echocardiogram shows significant right ventricular enlargement and pulmonary hypertension. Patient has a significant swelling in the legs. Blood pressure is 113/67 mmHg, heart rate is 65 per minute. First and second heart sounds are heard. Lungs are clinically clear to auscultation and percussion. The patient is started on Aldactone 25 mg b.i.d. and we will continue the patient on IV Lasix 40 mg b.i.d. MMODL / IJN: [id number] /
[2018-04-05] MEDS: HYDROcodone/APAP 7.5-325MG 1 EACH TAB PO SCH ×5 (00:17→23:28)
[2018-04-05 06:10] LABS: Glucose,Whole Blood 97 mg/dL (75-99)
[2018-04-05] MEDS: INSULIN ASPART (NovoLOG) 100 UNIT/ML VIAL SQ SCH ×3 (06:42→18:06)
[2018-04-05 06:45] LABS: Anisocytosis Slight; Basophils % (A) 1 %; Eosinophils # (A) 0.1 k/uL (0-0.7); Eosinophils % (A) 3 %; HCT 28.5 % (34.0-46.0); HGB 8.9 gm/dL (11.4-16.0); Hypochromasia Slight; Lymphocytes # (A) 0.7 k/uL (1.0-4.8); Lymphocytes % (A) 25 %; MCH 31.2 pg (25.0-35.0); MCHC 31.4 g/dL (31.0-37.0); MCV 99.4 fL (80.0-100.0); Macrocytosis Slight; Mean Platelet Volume 7.9; Monocytes # (A) 0.3 k/uL (0-1.0); Monocytes % (A) 9 %; Neutrophils # (A) 1.6 k/uL (1.3-7.7); Neutrophils % (A) 58 %; RBC 2.87 m/uL (3.80-5.40); WBC 2.8 k/uL (3.8-10.6)
[2018-04-05 07:02] LABS: Potassium 3.8 mmol/L (3.5-5.1)
[2018-04-05 07:05] LABS: Platelet Count 84 k/uL (150-450)
[2018-04-05] MEDS: SYMBICORT 80-4.5 MCG INHALER INHALATION SCH ×2 (07:26→21:20)
[2018-04-05] MEDS: ASPIRIN 81 MG PO SCH (08:54)
[2018-04-05] MEDS: DOCUSATE 100 MG CAP PO SCH (08:55)
[2018-04-05] MEDS: FUROSEMIDE 10 MG/ML 4 ML VIAL IV SCH ×2 (08:55→20:37)
[2018-04-05] MEDS: SPIRONOLACTONE 25 MG TAB PO SCH ×2 (08:55→20:54)
[2018-04-05] MEDS: CLOTRIMAZOLE/BETAMETH 1-0.05% CREAM 45 GM TUBE TOPICAL SCH ×2 (08:55→20:37)
[2018-04-05] MEDS: SENNOSIDES 8.6 MG TAB PO SCH ×2 (08:55→20:37)
[2018-04-05] MEDS: DULoxetine HCL 20 MG CAPSULE.DR PO SCH (08:56)
[2018-04-05] MEDS: ANASTROZOLE 1 MG TAB PO SCH (08:56)
[2018-04-05] MEDS: METOPROLOL TARTRATE 50 MG TAB PO SCH (08:56)
[2018-04-05] MEDS: POLYETHYLENE GLYCOL 3350 17 GM POWD.PACK PO SCH (09:00)
[2018-04-05 10:24] VITALS: BMI 58.3
[2018-04-05] MEDS: METOLAZONE 5 MG TAB PO SCH (10:53)
[2018-04-05] MEDS: HYDROPHILIC CREAM 180 GM TUBE TOPICAL SCH ×2 (10:53→20:37)
[2018-04-05 11:48] LABS: Glucose,Whole Blood 131 mg/dL (75-99)
--- NOTE | 2018-04-05 12:42 | PN ---
PROGRESS NOTE This patient was admitted with symptoms of confusion and the right-sided failure. Patient has a significant right ventricular enlargement and pulmonary hypertension. The patient is feeling better. She is sitting in the recliner without any distress. Her heart rate is 76 per minute, blood pressure is 132/63 mmHg. Respirations are not labored. Lungs examination revealed bilateral rales in the lower 1/3 of the lung razo. There is still 2+ leg edema. The patient had a negative fluid balance of 840 mL. Patient's hemoglobin is 8.9. Retic count was 2.9. Electrolytes are normal. Creatinine is 1.05. I will continue the current medications with the diuresis. Further workup for anemia is suggested. MMODL / IJN: [id number] /
[2018-04-05 16:09] LABS: Iron Saturation 19.67 (12.00-45.00)
[2018-04-05 16:44] LABS: Glucose,Whole Blood 117 mg/dL (75-99)
[2018-04-05] MEDS: FERROUS SULFATE 325 MG TAB PO SCH (18:05)
--- NOTE | 2018-04-05 19:10 | P.PN ---
Subjective This is a pleasant 68 years old female with past medical history of diabetes mellitus, COPD, fibromyalgia, hypertension, hyperlipidemia, rheumatoid arthritis , seizure disorder, SVT, diabetic nephropathy, history of right breast cancer status post surgery and chemotherapy, CKD, chronic anemia. Patient follows with Dr. whitehead as outpt. She presents this time with increasing edema and dyspnea, hypoglycemia and altered mental status. Patient [facility] that [facility] got [facility]'s where she was transferred. She was complaining of from worsening leg swelling and shortness of breath for the last few days to a week. Patient also gave history of inability to a walking since December of last year, when at that time she had a fall.And she complains from chronic leg pain but not recently worsening. Patient also complains from mild abdominal pain, around the umbilicus, nonspecific, nonradiating, no change in urine bowel habits with no diarrhea. No nausea vomiting. She is eating with no problem. Vitals show new blood pressure 114/62, saturating 93% on room air, patient is afebrile. Creatinine is elevated at 1.1-1.2, which is at baseline. GFR is 57, liver enzymes not elevated. Troponin is negative. WBC is within normal but patient has anemia with hemoglobin 9.1, thrombocytopenia with 75, diffusely patient has platelet level between 90-140 5K. INR 1.2 chest x-ray showing left lung pleural effusion with pulmonary congestion. Ejection fraction: 50-55%. In the emergency room patient got 1 dose of Lasix. Continue wound and 40 mg twice a day. Patient told us., Metoprolol, and Levemir 04/04/2018 Patient today feels a little better regarding her dyspnea, she is coughing a little bit of green phlegm. Hemoglobin 8.6. Platelet 77. Creatinine stable at 1.23. Doppler ultrasound of the lower extremity is negative for DVT. Cardiology input is appreciated and they recommended Lasix drip and adding Aldactone on the top of Zaroxolyn. She was looks controlled. After discussion with the son who wanted to keep his mother the hospital for a week because states that she has recurrent acute CHF exacerbation that she comes to the hospital every 2 weeks. Explained to him the risks and benefits and agrees that she can be discharged when she is ready and she needs closer follow-up with her doctor upon discharge. Also he was concerned about his mother drinking a lot of pop. We'll call nutritional consult .1 04/05/2018 Today patient is still with shortness of breath, she still have mild dry cough little phlegm. Leg swelling is improving slightly. Physical therapy evaluated the patient and recommended subacute rehab. Patient has been followed by cardiology service. She remains on furosemide 40 mg twice a day. With no worsening in her renal function. Her creatinine today is 1.05. She has worsening white cell count down to 2.8. Anemia at 8.9. And platelets 84. Patient hemoglobin is similar to his baseline, however platelets is slightly worsened and WBCs also was worsened slightly from its normal level. On reviewing her medication patient was started as an Aldactone, which may be contributing factors. However we will start the patient and leucoverin seemed that makes a difference. Anemia workup has been initiated upon the recommendation of the cardiology team. We sent for iron profile, vitamin B12, folate and recheck occult blood in the stool. Review of systems CONSTITUTIONAL: No fever, no malaise, no fatigue. HEENT: No recent visual problems or hearing problems. Denied any sore throat. CARDIOVASCULAR: No orthopnea, PND, no palpitations, no syncope. PULMONARY: No shortness of breath, no cough, no hemoptysis. GASTROINTESTINAL: No diarrhea, no nausea, no vomiting, no abdominal pain. Normoactive bowel sounds. NEUROLOGICAL: No headaches, no weakness, no numbness. HEMATOLOGICAL: Denies any bleeding or petechiae. GENITOURINARY: Denies any burning micturition, frequency, or urgency. MUSCULOSKELETAL/RHEUMATOLOGICAL: Denies any joint pain, swelling, or any muscle pain. ENDOCRINE: Denies any polyuria or polydipsia. Medication: Tylenol, Arimidex, aspirin, betamethasone, Symbicort, Colace, Bentyl , Cymbalta, ferrous sulfate, Lasix, [place], NovoLog, Levemir, 0 oxalate, Lopressor, MiraLAX, Senokot, Aldactone. Objective - Vital Signs Vital signs: Vital Signs Temp 97.4 F L 04/05/18 16:00 Pulse 63 04/05/18 16:00 Resp 20 04/05/18 16:00 BP 102/50 04/05/18 16:00 Pulse Ox 93 L 04/05/18 16:00 Intake & Output 02/04/05/18 04/05/18 18:59 06:59 18:59 Intake Total 360 480 Output Total 034 854 0902 Balance -997 -081 -9985 Weight 154.2 kg 154.2 kg Intake: Oral 360 480 Output: Urine 024 850 5818 Other: Voiding Method Diaper Diaper Incontinent Incontinent Incontinent # Voids 0 - Exam GENERAL: The patient is alert and oriented x3, not in any acute distress. Obese HEENT: Pupils are round and equally reacting to light. EOMI. No scleral icterus. No conjunctival pallor. Normocephalic, atraumatic. No pharyngeal erythema. No thyromegaly. CARDIOVASCULAR: S1 and S2 present. No murmurs, rubs, or gallops. -PULMONARY: Chest is clear to auscultation, decreased breath sounds, hard to hear but may be best with crepitation scattered wheezing ABDOMEN: Soft, nontender, nondistended, normoactive bowel sounds. No palpable organomegaly. MUSCULOSKELETAL: No joint swelling or deformity. -EXTREMITIES: No cyanosis, clubbing,. Bilateral leg edema NEUROLOGICAL: Gross neurological examination did not reveal any focal deficits. SKIN: No rashes. - Labs CBC & Chem 7: 04/05/18 06:06 04/05/18 06:06 Labs: Abnormal Lab Results - Last 24 Hours (Table) 04/05/18 04/05/18 04/05/18 Range/Units 06:06 06:06 06:06 WBC 2.8 L (3.8-10.6) k/uL RBC 2.87 L (3.80-5.40) m/uL Hgb 8.9 L (11.4-16.0) gm/dL Hct 28.5 L (34.0-46.0) % RDW 17.0 H (11.5-15.5) % Plt Count 84 L (150-450) k/uL Lymphocytes # 0.7 L (1.0-4.8) k/uL Chloride 96 L (98-107) mmol/L Carbon Dioxide 38 H (22-30) mmol/L BUN 22 H (7-17) mg/dL Creatinine 1.05 H (0.52-1.04) mg/dL POC Glucose (mg/dL) (75-99) mg/dL Iron 48 L (50-170) ug/dL 04/05/18 04/05/18 Range/Units 11:46 16:41 WBC (3.8-10.6) k/uL RBC (3.80-5.40) m/uL Hgb (11.4-16.0) gm/dL Hct (34.0-46.0) % RDW (11.5-15.5) % Plt Count (150-450) k/uL Lymphocytes # (1.0-4.8) k/uL Chloride (98-107) mmol/L Carbon Dioxide (22-30) mmol/L BUN (7-17) mg/dL Creatinine (0.52-1.04) mg/dL POC Glucose (mg/dL) 131 H 117 H (75-99) mg/dL Iron (50-170) ug/dL Assessment and Plan Assessment: Acute on chronic diastolic congestive heart failure Chronic anemia, anemia workup was initiated Leukopenia. Consider Aldactone effect versus nutrition deficiency versus others History of type 2 diabetes mellitus Diabetic neuropathy Diabetic nephropathy Chronic kidney disease stage III Hypertension Hyperlipidemia History of COPD, in mild acute exacerbation History of fibromyalgia History of rheumatoid arthritis History of seizure disorder History of SVT History of right breast cancer status post surgery and chemotherapy Plan: This is a pleasant 68 years old female presents with acute CHF, diastolic. We' ll continue with diuresis while monitoring of function and electrolytes. Patient is developing leukopenia, we started local brain if there is no improvement then consider further workup or referral to a machining manager, Also consider holding Aldactone as possible and okay per cardiology team. Labs and medication were reviewed.. Continue same treatment. Continue with symptomatic treatment. Resume home medication. Monitor lytes and vitals. DVT and GI prophylaxis. Further recommendations of the clinical course of the patient DVT prophylaxis: Patient was not getting heparin, we will start her on Lovenox GI Prophylaxis: Pepcid PT/OT: Recommended subacute rehab Prognosis is guarded
[2018-04-05 20:20] LABS: Glucose,Whole Blood 96 mg/dL (75-99)
[2018-04-05] MEDS: METOPROLOL TARTRATE 25 MG TAB PO SCH (20:36)
[2018-04-05] MEDS: FAMOTIDINE 20 MG/2 ML VIAL IV SCH (20:37)
[2018-04-05] MEDS: ENOXAPARIN 30 MG/0.3 ML SYRINGE SQ SCH (20:54)
[2018-04-05] MEDS: INSULIN DETEMIR (LEVEMIR) 100 UNIT/ML SYR SQ SCH (23:27)
[2018-04-05] MEDS: LEUCOVORIN 5 MG TAB PO SCH (23:28)
[2018-04-06] MEDS: INSULIN ASPART (NovoLOG) 100 UNIT/ML VIAL SQ SCH ×2 (07:02→12:40)
[2018-04-06] MEDS: HYDROcodone/APAP 7.5-325MG 1 EACH TAB PO SCH ×2 (07:04→12:39)
[2018-04-06] MEDS: SYMBICORT 80-4.5 MCG INHALER INHALATION SCH (07:19)
[2018-04-06 07:21] LABS: Anisocytosis Slight; Basophils % (A) 1 %; Eosinophils # (A) 0.2 k/uL (0-0.7); Eosinophils % (A) 6 %; HCT 28.4 % (34.0-46.0); HGB 9.2 gm/dL (11.4-16.0); Hypochromasia Slight; Lymphocytes # (A) 0.7 k/uL (1.0-4.8); Lymphocytes % (A) 25 %; MCH 31.7 pg (25.0-35.0); MCHC 32.3 g/dL (31.0-37.0); Macrocytosis Slight; Monocytes # (A) 0.3 k/uL (0-1.0); Monocytes % (A) 10 %; Neutrophils # (A) 1.6 k/uL (1.3-7.7); Neutrophils % (A) 55 %; RDW 17.1 % (11.5-15.5); WBC 2.8 k/uL (3.8-10.6)
[2018-04-06 07:23] LABS: Platelet Count 78 k/uL (150-450)
[2018-04-06 07:38] LABS: Potassium 3.7 mmol/L (3.5-5.1)
[2018-04-06 08:13] VITALS: RESP 18
[2018-04-06] MEDS: HYDROPHILIC CREAM 180 GM TUBE TOPICAL SCH (09:01)
[2018-04-06] MEDS: CLOTRIMAZOLE/BETAMETH 1-0.05% CREAM 45 GM TUBE TOPICAL SCH (09:01)
[2018-04-06] MEDS: ANASTROZOLE 1 MG TAB PO SCH (09:01)
[2018-04-06] MEDS: ENOXAPARIN 30 MG/0.3 ML SYRINGE SQ SCH (09:01)
[2018-04-06] MEDS: SPIRONOLACTONE 25 MG TAB PO SCH (09:01)
[2018-04-06] MEDS: METOPROLOL TARTRATE 50 MG TAB PO SCH (09:01)
[2018-04-06] MEDS: DULoxetine HCL 20 MG CAPSULE.DR PO SCH (09:01)
[2018-04-06] MEDS: METOLAZONE 5 MG TAB PO SCH (09:01)
[2018-04-06] MEDS: ASPIRIN 81 MG PO SCH (09:01)
[2018-04-06] MEDS: SENNOSIDES 8.6 MG TAB PO SCH (09:01)
[2018-04-06] MEDS: DOCUSATE 100 MG CAP PO SCH (09:01)
[2018-04-06] MEDS: FAMOTIDINE 20 MG/2 ML VIAL IV SCH (09:02)
[2018-04-06] MEDS: FUROSEMIDE 10 MG/ML 4 ML VIAL IV SCH (09:02)
[2018-04-06] MEDS: POLYETHYLENE GLYCOL 3350 17 GM POWD.PACK PO SCH (09:06)
[2018-04-06] MEDS: ACETAMINOPHEN TAB 325 MG TAB PO PRN (10:23)
[2018-04-06 11:55] LABS: Glucose,Whole Blood 100 mg/dL (75-99)
[2018-04-06 12:00] LABS: Glucose,Whole Blood 113 mg/dL (75-99)
[2018-04-06] MEDS ORDERED: DARBEPOETIN ALFA 40 MCG/0.4 ML SYRINGE SQ SCH (12:00)
[2018-04-06 13:04] VITALS: BP 130/69; PULSE 65; TEMP 97
--- NOTE | 2018-04-06 14:26 | XR ---
EXAMINATION TYPE: XR chest 1V portable DATE OF EXAM: 04/06/2018 COMPARISON: 04/02/2018 HISTORY: Shortness of breath TECHNIQUE: Single frontal view of the chest is obtained. FINDINGS: The heart is enlarged. No pneumothorax. No overt failure. Diffuse osteopenia and arthropat hy shoulders. Subsegmental changes at the left lung base have improved. IMPRESSION: Improving left lower lobe infiltrate and pleural effusion.
--- NOTE | 2018-04-06 14:37 | PN ---
PROGRESS NOTE This patient is primarily admitted with significant right-sided heart failure. Patient's condition is improving. Her swelling in the legs has improved. Her urine output is good. Patient's blood pressure is 130/69 mmHg, heart rate is 65 per minute, respirations are not labored. Lung examination reveals a few basal rales. We will repeat the chest x-ray and continue the current medications. Patient's BUN and creatinine is 1.09 and BUN is 24. MMODL / IJN: [id number] /
[2018-04-06] MEDS: LEUCOVORIN 5 MG TAB PO SCH (16:02)
--- NOTE | 2018-04-06 16:23 | P.DS ---
Providers Date of admission: 04/03/18 00:01 Expected date of discharge: 04/06/18 Attending physician: Porsche Alexander Consults: 04/03/18 13:47 Consult Physician Urgent Consulting Provider: Celine Aden Consult Reason/Comments: chf Do you want consulting provider notified?: Yes 04/06/18 11:06 Consult Physician Routine Consulting Provider: Jp Canales Consult Reason/Comments: Pancytopenia Do you want consulting provider notified?: Yes Primary care physician: Tom Westerly Hospital Course: This is a pleasant 68 years old female with past medical history of diabetes mellitus, COPD, fibromyalgia, hypertension, hyperlipidemia, rheumatoid arthritis , seizure disorder, SVT, diabetic nephropathy, history of right breast cancer status post surgery and chemotherapy, CKD, chronic anemia. Patient follows with Dr. whitehead as outpt. She presents this time with increasing edema and dyspnea, hypoglycemia and altered mental status. Patient states that [facility] got [facility]'s where she was transferred. She was complaining of from worsening leg swelling and shortness of breath for the last few days to a week. Patient also gave history of inability to a walking since December of last year, when at that time she had a fall.And she complains from chronic leg pain but not recently worsening. Patient also complains from mild abdominal pain, around the umbilicus, nonspecific, nonradiating, no change in urine bowel habits with no diarrhea. No nausea vomiting. She is eating with no problem. Vitals show new blood pressure 114/62, saturating 93% on room air, patient is afebrile. Creatinine is elevated at 1.1-1.2, which is at baseline. GFR is 57, liver enzymes not elevated. Troponin is negative. WBC is within normal but patient has anemia with hemoglobin 9.1, thrombocytopenia with 75, diffusely patient has platelet level between 90-140 5K. INR 1.2 chest x-ray showing left lung pleural effusion with pulmonary congestion. Ejection fraction: 50-55%. In the emergency room patient got 1 dose of Lasix. Continue wound and 40 mg twice a day. Patient told us., Metoprolol, and Levemir 04/04/2018 Patient today feels a little better regarding her dyspnea, she is coughing a little bit of green phlegm. Hemoglobin 8.6. Platelet 77. Creatinine stable at 1.23. Doppler ultrasound of the lower extremity is negative for DVT. Cardiology input is appreciated and they recommended Lasix drip and adding Aldactone on the top of Zaroxolyn. She was looks controlled. After discussion with the son who wanted to keep his mother the hospital for a week because states that she has recurrent acute CHF exacerbation that she comes to the hospital every 2 weeks. Explained to him the risks and benefits and agrees that she can be discharged when she is ready and she needs closer follow-up with her doctor upon discharge. Also he was concerned about his mother drinking a lot of pop. We'll call nutritional consult .1 04/05/2018 Today patient is still with shortness of breath, she still have mild dry cough little phlegm. Leg swelling is improving slightly. Physical therapy evaluated the patient and recommended subacute rehab. Patient has been followed by cardiology service. She remains on furosemide 40 mg twice a day. With no worsening in her renal function. Her creatinine today is 1.05. She has worsening white cell count down to 2.8. Anemia at 8.9. And platelets 84. Patient hemoglobin is similar to his baseline, however platelets is slightly worsened and WBCs also was worsened slightly from its normal level. On reviewing her medication patient was started as an Aldactone, which may be contributing factors. However we will start the patient and leucoverin seemed that makes a difference. Anemia workup has been initiated upon the recommendation of the cardiology team. We sent for iron profile, vitamin B12, folate and recheck occult blood in the stool. Review of systems CONSTITUTIONAL: No fever, no malaise, no fatigue. HEENT: No recent visual problems or hearing problems. Denied any sore throat. CARDIOVASCULAR: No orthopnea, PND, no palpitations, no syncope. PULMONARY: No shortness of breath, no cough, no hemoptysis. GASTROINTESTINAL: No diarrhea, no nausea, no vomiting, no abdominal pain. Normoactive bowel sounds. NEUROLOGICAL: No headaches, no weakness, no numbness. HEMATOLOGICAL: Denies any bleeding or petechiae. GENITOURINARY: Denies any burning micturition, frequency, or urgency. MUSCULOSKELETAL/RHEUMATOLOGICAL: Denies any joint pain, swelling, or any muscle pain. ENDOCRINE: Denies any polyuria or polydipsia. Patient Condition at Discharge: Stable Plan - Discharge Summary Discharge Rx Participant: No New Discharge Prescriptions: New Metolazone [Zaroxolyn] 5 mg PO DAILY #30 tab Spironolactone [Aldactone] 25 mg PO BID #60 tab Continue Fluticasone/Salmeterol [Advair 100-50 Diskus] 1 puff INHALATION RT-DAILY@0900 Anastrozole [Arimidex] 1 mg PO DAILY@0900 Cyclobenzaprine [Flexeril] 10 mg PO TID@0600,1400,2200 Acetaminophen Tab [Tylenol] 650 mg PO Q4H PRN PRN Reason: Fever And/ Or Pain HYDROcodone/APAP 7.5-325MG [[place] 7.5-325] 1 tab PO Q6H INSULIN LISPRO (HumaLOG) [humaLOG] 30 units SQ TID@0800,1200,1700 Ferrous Sulfate [Iron (65 MG Elemental)] 325 mg PO DAILY@1700 Docusate [Colace] 100 mg PO DAILY@0900 DULoxetine HCL [Cymbalta] 20 mg PO DAILY@0900 Aspirin 81 mg PO DAILY@0900 Furosemide [Lasix] 40 mg PO BID #60 tablet Metoprolol Tartrate [Lopressor] 25 mg PO HS tab Metoprolol Tartrate [Lopressor] 50 mg PO DAILY tab Nitroglycerin Sl Tabs [Nitrostat] 0.4 mg SUBLINGUAL Q5M PRN tab PRN Reason: Chest Pain Polyethylene Glycol 3350 [Miralax] 17 gm PO DAILY powd.pack Insulin Glargine,Hum.rec.anlog [Basaglar Kwikpen U-100] 30 unit SQ HS@2100 #0 Sennosides [Senna] 8.6 mg PO Q12H Clotrimazole/Betamethasone Dip [Lotrisone Cream] 1 applic TOPICAL Q12H Dicyclomine [Bentyl] 10 mg PO Q8H PRN PRN Reason: Gi Upset Darbepoetin Gurwinder [Aranesp] 40 mcg SQ Q7D Hydrophilic Cream [Triad Cream] 1 applic TOPICAL Q12H Discontinued Metolazone [Zaroxolyn] 2.5 mg PO DIRECTED Discharge Medication List Fluticasone/Salmeterol [Advair 100-50 Diskus] 1 puff INHALATION RT-DAILY@0900 [History] Anastrozole [Arimidex] 1 mg PO DAILY@0900 09/30/14 [History] Cyclobenzaprine [Flexeril] 10 mg PO TID@0600,1400,2200 01/08/18 [History] Acetaminophen Tab [Tylenol] 650 mg PO Q4H PRN 02/20/18 [History] Aspirin 81 mg PO DAILY@0902/20/18 [History] DULoxetine HCL [Cymbalta] 20 mg PO DAILY@0900 02/20/18 [History] Docusate [Colace] 100 mg PO DAILY@0902/20/18 [History] Ferrous Sulfate [Iron (65 MG Elemental)] 325 mg PO DAILY@1700 02/20/18 [History] HYDROcodone/APAP 7.5-325MG [[place] 7.5-325] 1 tab PO Q6H 02/20/18 [History] INSULIN LISPRO (HumaLOG) [humaLOG] 30 units SQ TID@0800,1200,1700 02/20/18 [ History] Furosemide [Lasix] 40 mg PO BID #60 tablet 02/28/18 [Rx] Insulin Glargine,Hum.rec.anlog [Basaglar Kwikpen U-100] 30 unit SQ HS@2100 #0 [Rx] Metoprolol Tartrate [Lopressor] 25 mg PO HS tab 02/28/18 [Rx] Metoprolol Tartrate [Lopressor] 50 mg PO DAILY tab 02/28/18 [Rx] Nitroglycerin Sl Tabs [Nitrostat] 0.4 mg SUBLINGUAL Q5M PRN tab 02/28/18 [Rx] Polyethylene Glycol 3350 [Miralax] 17 gm PO DAILY powd.pack 02/28/18 [Rx] Clotrimazole/Betamethasone Dip [Lotrisone Cream] 1 applic TOPICAL Q12H 04/02/18 [History] Darbepoetin Gurwinder [Aranesp] 40 mcg SQ Q7D 04/02/18 [History] Dicyclomine [Bentyl] 10 mg PO Q8H PRN 04/02/18 [History] Hydrophilic Cream [Triad Cream] 1 applic TOPICAL Q12H 04/02/18 [History] Sennosides [Senna] 8.6 mg PO Q12H 04/02/18 [History] Metolazone [Zaroxolyn] 5 mg PO DAILY #30 tab 04/06/18 [Rx] Spironolactone [Aldactone] 25 mg PO BID #60 tab 04/06/18 [Rx] Follow up Appointment(s)/Referral(s): Tom Han MD [Primary Care Provider] - 1-2 days Rosio Mann MD [STAFF PHYSICIAN] - 2 Weeks Discharge Disposition: HOME SELF-CARE
[2018-04-06 16:25] LABS: Glucose,Whole Blood 186 mg/dL (75-99)
--- NOTE | 2018-04-06 19:46 | P.CONS ---
History of Present Illness - Reason for Consult Consult date: 04/06/18 Pancytopenia Requesting physician: Juan Antonio E Sheet - Chief Complaint Edema and Shortness of breath - History of Present Illness Ms Zuniga is a pleasant 68 year old female who was originally diagnosed with invasive carcinoma of the right breast in October 2013, at that time primary oncologist Dr. Mann. 11/06/13 - Bone scan revealed uptake L4S1, this was not felt to be pathologic as it was present in 2011 and related degenerative disc 12/03/13 - Right Mastectomy and SLN revealing a grade 3, 2.6cm invasive ductal carcinoma ER+MA- and GUI7ase neg by FISH (IHC2+) Oncotype DX was high risk recurrence 40 She has known history of diabetes, COPD, RA, Seizure disorderm CKD, Chronic anemia, diabetic peripheral neuropathy therefore treatment regimen was chosen based on her other co-morbidies, CMF started in 02/28/2014, she completed 6 cycles - hematological difficulties and weakness in toleration August 2014 - Arimidex initiated, 10/31/14 - Bone density osteopenia. She followed till 2016 - recommended to remain on arimidex for 10 years although she was having difficulties with joint pain requiring norco 1-4x a day. She was referred in 2016 to her PCP for further management. She now presents with increasing edema and dyspnea, hypoglycemia and altered mental status. She was complaining of from worsening leg swelling and shortness of breath for the last few days to a week. She has progressively became weaker since December of last year and unable to ambulate after she suffered fall. Patient also complains from mild abdominal pain, around the umbilicus, nonspecific, nonradiating, no change in urine bowel habits with no diarrhea. No nausea vomiting. She is eating with no problem. Hematology has been consulted for pancytopenia. I do not see she was on any methotrexate or ant-seizure medications as outpatient, which may contribute to lower counts from suppression of bone marrow, appears she has had chronic pancytopenia when trending back. CT scan revealed evidence splenomegaly and splenic varices which will account for this chronic pancytopenia. She also states she continues on her AI daily. Review of Systems A 14 point review of systems assessed and completed and all negative except HPI Past Medical History Past Medical History: Cancer, COPD, Diabetes Mellitus, Fibromyalgia, Hyperlipidemia, Hypertension, Renal Disease, Rheumatoid Arthritis (RA), Seizure Disorder, Supraventricular Tachycardia (SVT) Additional Past Medical History / Comment(s): IDDM type II, neuropathy bilateral legs/feet and hands, past cellulitis leg, R breast cancer with surgery and chemo, seizures with last time "years" ago, UTI, CKD, UTIs, chronic anemiaDM Type II. Recent dental extraction (all teeth from lower jaw 11/2017) History of Any Multi-Drug Resistant Organisms: None Reported Past Surgical History: Adenoidectomy, Appendectomy, Breast Surgery, Cholecystectomy, Hysterectomy, Orthopedic Surgery, Tonsillectomy, Tubal Ligation Additional Past Surgical History / Comment(s): masectomy right, ganglion cyst right hand, total hysterectomy (hx of tubal pregnancies), lower teeth extracted. Past Anesthesia/Blood Transfusion Reactions: No Reported Reaction Past Psychological History: Anxiety, Depression Additional Psychological History / Comment(s): Pt currently is at [facility] for rehab. She needs assist with ADLS except feeds self. She states up until just lately she was getting up with a walker some.Her daughter lives with her. No experience. Did not work outside of the home. No international travel. There is a pet dog in the home. No alcohol use Smoking Status: Former smoker Past Alcohol Use History: None Reported Additional Past Alcohol Use History / Comment(s): Pt started smoking in 1971 and qut in December 2017. Per patient she smoked 1-2 cigarettes a day after meals. Past Drug Use History: None Reported - Past Family History Father Family Medical History: Cancer, CVA/TIA Additional Family Medical History / Comment(s): 2000 from lung cancer Mother Family Medical History: Cancer, Dementia Additional Family Medical History / Comment(s): 2014 at age 86. Oral & Breast cancer Brother(s) Family Medical History: Asthma, Diabetes Mellitus, Fibromyalgia, Osteoarthritis (OA) Additional Family Medical History / Comment(s): Obesity. Joint replacements Medications and Allergies Home Medications Medication Instructions Recorded Confirmed Type Fluticasone/Salmeterol [Advair 1 puff INHALATION RT-DAILY@0900 06/24/14 History 100-50 Diskus] Anastrozole [Arimidex] 1 mg PO DAILY@0900 09/30/14 04/02/18 History Cyclobenzaprine [Flexeril] 10 mg PO TID@0600,1400,2200 01/08/18 04/02/18 History Acetaminophen Tab [Tylenol] 650 mg PO Q4H PRN 02/20/18 04/02/18 History Aspirin 81 mg PO DAILY@0900 02/20/18 04/02/18 History DULoxetine HCL [Cymbalta] 20 mg PO DAILY@0900 02/20/18 04/02/18 History Docusate [Colace] 100 mg PO DAILY@0900 02/20/18 04/02/18 History Ferrous Sulfate [Iron (65 MG 325 mg PO DAILY@1700 02/20/18 04/02/18 History Elemental)] HYDROcodone/APAP 7.5-325MG [[place] 1 tab PO Q6H 02/20/18 04/02/18 History 7.5-325] INSULIN LISPRO (HumaLOG) [humaLOG] 30 units SQ TID@0800,1200,1700 02/20/1804/02 History Furosemide [Lasix] 40 mg PO BID #60 tablet 02/28/18 04/02/18 Rx Insulin Glargine,Hum.rec.anlog 30 unit SQ HS@2100 #0 02/28/18 04/02/18 Rx [Basaglar Kwikpen U-100] Metoprolol Tartrate [Lopressor] 25 mg PO HS tab 02/28/18 04/02/18 Rx Metoprolol Tartrate [Lopressor] 50 mg PO DAILY tab 02/28/18 04/02/18 Rx Nitroglycerin Sl Tabs [Nitrostat] 0.4 mg SUBLINGUAL Q5M PRN tab 02/28/18 Rx Polyethylene Glycol 3350 [Miralax] 17 gm PO DAILY powd.pack 02/28/18 04/02/18 Rx Clotrimazole/Betamethasone Dip 1 applic TOPICAL Q12H 04/02/18 04/02/18 History [Lotrisone Cream] Darbepoetin Gurwinder [Aranesp] 40 mcg SQ Q7D 04/02/18 04/02/18 History Dicyclomine [Bentyl] 10 mg PO Q8H PRN 04/02/18 04/02/18 History Hydrophilic Cream [Triad Cream] 1 applic TOPICAL Q12H 04/02/18 04/02/18 History Sennosides [Senna] 8.6 mg PO Q12H 04/02/18 04/02/18 History Metolazone [Zaroxolyn] 5 mg PO DAILY #30 tab 04/06/18 Rx Spironolactone [Aldactone] 25 mg PO BID #60 tab 04/06/18 Rx Allergies Allergy/AdvReac Type Severity Reaction Status Date / Time codeine Allergy Nausea & Verified 04/02/18 22:12 Vomiting Penicillins Allergy Rash/Hives Verified 04/02/18 22:12 phenobarbital AdvReac Unknown Verified 04/02/18 22:12 phenytoin sodium AdvReac Unknown Verified 04/02/18 22:12 [From Dilantin] phenytoin sodium extended AdvReac Unknown Verified 04/02/18 22:12 [From Dilantin] primidone [From Mysoline] AdvReac Unknown Verified 04/02/18 22:12 Physical Exam Vitals: Vital Signs Temp Pulse Resp BP Pulse Ox 04/06/18 12:00 97.0 F L 65 18 130/69 99 04/06/18 08:00 97.8 F 75 18 128/62 93 L 04/06/18 04:10 97.5 F L 77 19 125/58 95 04/06/18 00:10 97.7 F 77 19 101/58 97 04/05/18 21:20 95 04/05/18 20:00 98.3 F 71 19 119/55 96 04/05/18 16:00 97.4 F L 63 20 102/50 93 L Intake and Output 04/05/18 04/06/18 04/06/18 22:59 06:59 14:59 Intake Total 240 Output Total 1650 550 Balance -1650 -550 240 Intake: Oral 240 Output: Urine 1650 550 Other: Voiding Method Incontinent Incontinent Incontinent Weight 152 kg Gen: No acute distress, answers appropriately although follows asleep when speaking Neck Supple Mouth without lesions Lungs Diminished throughout, no increased effort Heart RRR, S1 Abdomen obese, Hepatosplenomegaly Ext: 3+ BLE edema with evidence of peripheral vascular insufficiency. Neuro - Non focal Results CBC & Chem 7: 04/06/18 06:07 04/06/18 06:07 Labs: Abnormal Lab Results - Last 24 Hours (Table) 04/05/18 04/05/18 04/06/18 Range/Units 06:06 16:41 05:58 WBC (3.8-10.6) k/uL RBC (3.80-5.40) m/uL Hgb (11.4-16.0) gm/dL Hct (34.0-46.0) % RDW (11.5-15.5) % Plt Count (150-450) k/uL Lymphocytes # (1.0-4.8) k/uL Chloride (98-107) mmol/L Carbon Dioxide (22-30) mmol/L BUN (7-17) mg/dL Creatinine (0.52-1.04) mg/dL POC Glucose (mg/dL) 117 H 100 H (75-99) mg/dL Iron 48 L (50-170) ug/dL 04/06/18 04/06/18 04/06/18 Range/Units 06:07 06:07 11:14 WBC 2.8 L (3.8-10.6) k/uL RBC 2.90 L (3.80-5.40) m/uL Hgb 9.2 L (11.4-16.0) gm/dL Hct 28.4 L (34.0-46.0) % RDW 17.1 H (11.5-15.5) % Plt Count 78 L (150-450) k/uL Lymphocytes # 0.7 L (1.0-4.8) k/uL Chloride 94 L (98-107) mmol/L Carbon Dioxide 38 H (22-30) mmol/L BUN 24 H (7-17) mg/dL Creatinine 1.09 H (0.52-1.04) mg/dL POC Glucose (mg/dL) 113 H (75-99) mg/dL Iron (50-170) ug/dL CT scan - abdomen: report reviewed Assessment and Plan Plan: Assessment and Recommendations: 1. Pancytopenia:" - Chronic and likely secondary to splenomegaly and splenic Varices - She can follow-up with Dr. Mann as outpatient to reassess CBC and monitor for worsening or caryn for further dagnostics 2. Hx: Invasive Breast Cancer in 2012 - Status post right mastectomy and 6 cycles of chemotherapy with CMF - Ariimidex in August 2014 and this is to continue through August of 2024 - Will order prosthetic insert per patient request for right breast 2. Multiple other co-morbidies per primary team Physician Attestation: I have completed the full history and physical and developed the complete impression and plan of this patient, agree with above dictation by Nga Sofia, dictated as a scribe.
[2018-04-07] MEDS ORDERED: FAMOTIDINE 20 MG/2 ML VIAL IV SCH (09:00)
== END 2018-04-06 16:54 | DRG 291 ==
LOC: EC 21:59 → 3SCARD 04-03 00:01
PROVIDERS: ADMIT Hospitalist; ATTEND Hospitalist
DX: I13.0 Hypertensive heart and chronic kidney disease with heart failure and stage 1 through stage 4 chronic kidney disease, or unspecified chronic kidney disease (principal); I50.33 Acute on chronic diastolic (congestive) heart failure; D61.818 Other pancytopenia; I47.1 Supraventricular tachycardia; Z68.43 Body mass index [BMI] 50.0-59.9, adult; J44.1 Chronic obstructive pulmonary disease with (acute) exacerbation; E11.22 Type 2 diabetes mellitus with diabetic chronic kidney disease; I27.20 Pulmonary hypertension, unspecified; E11.21 Type 2 diabetes mellitus with diabetic nephropathy; E11.42 Type 2 diabetes mellitus with diabetic polyneuropathy; E11.649 Type 2 diabetes mellitus with hypoglycemia without coma; R16.1 Splenomegaly, not elsewhere classified; N18.3 Chronic kidney disease, stage 3 (moderate); Z85.3 Personal history of malignant neoplasm of breast; M79.7 Fibromyalgia; M06.9 Rheumatoid arthritis, unspecified; G40.909 Epilepsy, unspecified, not intractable, without status epilepticus; E78.5 Hyperlipidemia, unspecified; F41.9 Anxiety disorder, unspecified; F32.9 Major depressive disorder, single episode, unspecified; E66.9 Obesity, unspecified; M85.80 Other specified disorders of bone density and structure, unspecified site; I86.8 Varicose veins of other specified sites; R32 Unspecified urinary incontinence; Z71.3 Dietary counseling and surveillance; Z79.811 Long term (current) use of aromatase inhibitors; Z79.82 Long term (current) use of aspirin; Z79.899 Other long term (current) drug therapy; Z79.4 Long term (current) use of insulin; Z92.21 Personal history of antineoplastic chemotherapy; Z87.440 Personal history of urinary (tract) infections; Z90.710 Acquired absence of both cervix and uterus; Z90.49 Acquired absence of other specified parts of digestive tract; Z91.81 History of falling; Z90.11 Acquired absence of right breast and nipple; Z87.891 Personal history of nicotine dependence; Z80.1 Family history of malignant neoplasm of trachea, bronchus and lung; Z80.3 Family history of malignant neoplasm of breast; Z82.3 Family history of stroke; Z83.3 Family history of diabetes mellitus; Z82.5 Family history of asthma and other chronic lower respiratory diseases; Z81.8 Family history of other mental and behavioral disorders
CPT/HCPCS: 36415; 71045; 71046; 80048; 80053; 81001; 82550; 82553; 82570; 82607; 82728; 82746; 83540; 83550; 83735; 83880; 84156; 84425; 84484; 85025; 85027; 85045; 85610; 85730; 93005; 93306; 93970; 94640; 96365; 96366; 96375; 96376; 99285

== ENCOUNTER 2018-06-06 09:21 | Inpatient (IN) | payer MEDICARE ==
[2018-06-06] MEDS ORDERED: SODIUM CHLORIDE 0.9% 1,000 ML IV STA ×2 (11:05)
[2018-06-06] MEDS ORDERED: ONDANSETRON 4 MG/2 ML VIAL IVP STA (11:05)
[2018-06-06] MEDS ORDERED: PANTOPRAZOLE 40 MG/10 ML VIAL IVP STA (11:05)
--- NOTE | 2018-06-06 11:57 | CT ---
EXAMINATION TYPE: CT brain wo con DATE OF EXAM: 06/06/2018 COMPARISON: 05/07/2018 HISTORY: Seizure, headache TECHNIQUE: CT scan of the head is performed without contrast. CT DLP: 1060.4 mGycm Automated exposure control for dose reduction was used. FINDINGS: There is no acute intracranial hemorrhage, mass effect, or midline shift identified. There are a few patchy areas of hypoattenuation within the deep white matter such as on image 36 in the right fronta l lobe. No suspicious extra-axial fluid collection is seen. The ventricles and sulci are within bela l limits in size. The globes are intact and the visualized sinuses are clear. IMPRESSION: No acute intracranial hemorrhage, mass effect, or midline shift is seen.
--- NOTE | 2018-06-06 12:10 | XR ---
EXAMINATION TYPE: XR KUB DATE OF EXAM: 06/06/2018 COMPARISON: None INDICATION: Pain abdominal distention TECHNIQUE: Supine view FINDINGS: There is a normal bowel gas pattern. Psoas margins are normal. No organomegaly is present. Cholecystectomy clips in right upper quadrant. Some vascular calcification may be in the left upper q uadrant. IMPRESSION: 1. Unremarkable Abdomen
--- NOTE | 2018-06-06 12:11 | XR ---
EXAMINATION TYPE: XR chest 2V DATE OF EXAM: 06/06/2018 COMPARISON: Prior chest x-ray 05/07/2018 HISTORY: Abdominal pain TECHNIQUE: Frontal and lateral views of the chest are obtained. FINDINGS: Patient is rotated. There is no focal air space opacity, pleural effusion, or pneumothorax seen. The cardiac silhouette size is stable, likely accentuated by rotation. Prominence of the cent ral pulmonary vascularity may be due to underlying pulmonary artery hypertension. There is thoracic s pondylosis. The osseous structures are intact. IMPRESSION: No acute cardiopulmonary process.
--- NOTE | 2018-06-06 12:41 | ED ---
Abdominal Pain HPI <Estuardo Monsalve - Last Filed: 06/06/18 15:10> - General Source: patient, EMS, RN notes reviewed, old records reviewed Mode of arrival: EMS Limitations: physical limitation <Chelly Joya - Last Filed: 06/06/18 15:34> - General Chief Complaint: Abdominal Pain Stated Complaint: seizure, abd pain Time Seen by Provider: 06/06/18 10:42 - History of Present Illness Initial Comments: Patient is a 68-year-old female presents for instructed today for shaking-like episodes, increase lethargy. Patient also complains of abdominal pain. She is recently hospitalist for urinary tract infection. Patient states that she has lower abdominal pain. She denies any chest pain or shortness of breath. Patient reports that her shaking episode was witnessed. She does have history of seizure disorder. At this time Patient does complain of a headache. (Chelly Joya) - Related Data Home Medications Medication Instructions Recorded Confirmed Fluticasone/Salmeterol [Advair 1 puff INHALATION RT-DAILY@0900 06/24/14 06/06/18 100-50 Diskus] Anastrozole [Arimidex] 1 mg PO DAILY@0900 09/30/14 06/06/18 Cyclobenzaprine [Flexeril] 10 mg PO TID@0600,1400,2200 01/08/18 06/06/18 Acetaminophen Tab [Tylenol] 650 mg PO Q4H PRN 02/20/18 06/06/18 Aspirin 81 mg PO DAILY@0900 02/20/18 06/06/18 Docusate [Colace] 100 mg PO DAILY@2100 02/20/18 06/06/18 Ferrous Sulfate [Iron (65 MG 325 mg PO DAILY@1700 02/20/18 06/06/18 Elemental)] Darbepoetin Gurwinder [Aranesp] 40 mcg SQ WE 04/02/18 06/06/18 Dicyclomine [Bentyl] 10 mg PO Q8H PRN 04/02/18 06/06/18 Hydrophilic Cream [Triad Cream] 1 applic TOPICAL Q12H 04/02/18 06/06/18 Sennosides [Senna] 8.6 mg PO BID@0900,2100 04/02/18 06/06/18 Polyethylene Glycol 3350 [Miralax] 17 gram PO DAILY 03/25/19 04/24/19 Hydrocodone/Acetaminophen [[place] 1 tab PO Q6HR PRN 06/06/18 06/06/18 7.5-325] Insulin Glargine,Hum.rec.anlog 5 unit SQ HS 06/06/18 06/06/18 [Basaglar Kwikpen U-100] Insulin Lispro [humaLOG Kwikpen] See Protocol SQ AC-TID 06/06/18 06/06/18 Magnesium Hydroxide [Milk of 2,400 mg PO HS PRN 06/06/18 06/06/18 Magnesia] Petrolatum, White [Aquaphor] 1 applic TOPICAL BID 06/06/18 06/06/18 Previous Rx's Medication Instructions Recorded Metoprolol Tartrate [Lopressor] 25 mg PO HS tab 02/28/18 Metoprolol Tartrate [Lopressor] 50 mg PO DAILY tab 02/28/18 Nitroglycerin Sl Tabs [Nitrostat] 0.4 mg SUBLINGUAL Q5M PRN tab 02/28/18 Spironolactone [Aldactone] 25 mg PO BID #60 tab 04/06/18 Furosemide [Lasix] 40 mg PO DAILY tab 05/11/18 Allergies Allergy/AdvReac Type Severity Reaction Status Date / Time cephalexin [From Keflex] Allergy Unknown Verified 06/06/18 11:06 Penicillins Allergy Rash/Hives Verified 06/06/18 11:06 codeine AdvReac Nausea & Verified 06/06/18 11:06 Vomiting phenobarbital AdvReac Unknown Verified 06/06/18 11:06 phenytoin sodium AdvReac Unknown Verified 06/06/18 11:06 [From Dilantin] phenytoin sodium extended AdvReac Unknown Verified 06/06/18 11:06 [From Dilantin] primidone [From Mysoline] AdvReac Unknown Verified 06/06/18 11:06 Review of Systems ROS Other: All systems not noted in ROS Statement are negative. <Estuardo Monsalve - Last Filed: 06/06/18 15:10> ROS Other: All systems not noted in ROS Statement are negative. <Chelly Joya - Last Filed: 06/06/18 15:34> ROS Statement: Those systems with pertinent positive or pertinent negative responses have been documented in the HPI. Past Medical History Past Medical History: Cancer, Heart Failure, COPD, Diabetes Mellitus, Fibromyalgia, Hyperlipidemia, Hypertension, Renal Disease, Rheumatoid Arthritis (RA), Seizure Disorder, Supraventricular Tachycardia (SVT) Additional Past Medical History / Comment(s): IDDM type II, neuropathy bilateral legs/feet and hands, past cellulitis leg, R breast cancer with surgery and chemo, seizures with last time "years" ago, UTI, CKD, UTIs, chronic anemiaDM Type II. Recent dental extraction (all teeth from lower jaw 11/2017) History of Any Multi-Drug Resistant Organisms: VRE Date of last positivie culture/infection: 05/11/18 MDRO Source:: VRE URINE Past Surgical History: Adenoidectomy, Appendectomy, Breast Surgery, Cholecystectomy, Hysterectomy, Orthopedic Surgery, Tonsillectomy, Tubal Ligation Additional Past Surgical History / Comment(s): masectomy right, ganglion cyst right hand, total hysterectomy (hx of tubal pregnancies), lower teeth extracted. Past Anesthesia/Blood Transfusion Reactions: No Reported Reaction Past Psychological History: Anxiety, Depression Smoking Status: Former smoker Past Alcohol Use History: None Reported Past Drug Use History: None Reported - Past Family History Father Family Medical History: Cancer, CVA/TIA Additional Family Medical History / Comment(s): 2000 from lung cancer Mother Family Medical History: Cancer, Dementia Additional Family Medical History / Comment(s): 2014 at age 86. Oral & Breast cancer Brother(s) Family Medical History: Asthma, Diabetes Mellitus, Fibromyalgia, Osteoarthritis (OA) Additional Family Medical History / Comment(s): Obesity. Joint replacements <Chelly Joya - Last Filed: 06/06/18 15:34> General Exam Limitations: physical limitation General appearance: alert, in no apparent distress Head exam: Present: atraumatic, normocephalic, normal inspection Eye exam: Present: normal appearance, PERRL, EOMI. Absent: scleral icterus, conjunctival injection, periorbital swelling ENT exam: Present: normal exam, mucous membranes moist Neck exam: Present: normal inspection. Absent: tenderness, meningismus, lymphadenopathy Respiratory exam: Present: normal lung sounds bilaterally. Absent: respiratory distress, wheezes, rales, rhonchi, stridor Cardiovascular Exam: Present: regular rate, normal rhythm, normal heart sounds. Absent: systolic murmur, diastolic murmur, rubs, gallop, clicks GI/Abdominal exam: Present: soft, tenderness (Upper quadrant right upper quadrant tenderness.), normal bowel sounds. Absent: distended, guarding, rebound, rigid Extremities exam: Present: normal inspection, full ROM, normal capillary refill. Absent: tenderness, pedal edema, joint swelling, calf tenderness Back exam: Present: normal inspection Neurological exam: Present: alert, oriented X3, CN II-XII intact Psychiatric exam: Present: normal affect, normal mood Skin exam: Present: warm, dry, intact, normal color. Absent: rash <Chelly Joya - Last Filed: 06/06/18 15:34> - General Exam Comments Initial Comments: 68-year-old female. Normally obese. is generalized weakness. (Chelly Joya) Course <Estuardo Monsalve - Last Filed: 06/06/18 15:10> Vital Signs 06/06/18 06/06/18 06/06/18 09:23 14:00 15:08 Temperature 98.5 F 98.1 F Pulse Rate 93 88 94 Respiratory 17 20 16 Rate Blood Pressure 117/67 114/74 132/91 O2 Sat by Pulse 97 99 98 Oximetry - Reevaluation(s) Reevaluation #1: 06/06/18 15:10 PA supervision: I proceeded [id number] evaluation the patient patient will be admitted I did discuss case Dr. Delcid's office. I do agree with the assessment and plan (Estuardo Monsalve) Medical Decision Making - Lab Data Result diagrams: 06/06/18 12:14 06/06/18 12:14 <Estuardo Monsalve - Last Filed: 06/06/18 15:10> - Lab Data Result diagrams: 06/06/18 12:14 06/06/18 12:14 - Radiology Data Radiology results: report reviewed <Chelly Joya - Last Filed: 06/06/18 15:34> - Medical Decision Making Patient is a 68-year-old female currently living in extended care facility where he did see on the leg. She presented today after shaking-like episode concerns or seizure-like activity. She has history of seizure disorder. She arrived complaining of headache and upper abdominal pain. Patient at this time has no chest pain or shortness of breath. She had a recent urinary tract infection. Patient complains of generalized weakness. On CT of her brain is negative for any acute process. Chest x-ray is normal. KUB shows an obstructive bowel gas pattern. Patient's blood work was reviewed and a relatively unremarkable. Patient's urinalysis did show some white blood cells. Urine culture will be completed. Discusses Dr. Monsalve. Patient's generalized weakness abdominal pain and being sent from extended care facility will admit the Patient for observation for fluids and pending urine culture. She's had a history of Proteus which was resistant to fluoroquinolones and has multiple ALLERGIES to antibiotics. I will give the Patient 1 Macrobid at this time. (Chelly Joya) - Lab Data Lab Results 06/06/18 06/06/18 06/06/18 Range/Units 12:14 12:14 12:14 WBC 3.3 L (3.8-10.6) k/uL RBC 3.00 L (3.80-5.40) m/uL Hgb 9.7 L (11.4-16.0) gm/dL Hct 28.6 L (34.0-46.0) % MCV 95.3 (80.0-100.0) fL MCH 32.5 (25.0-35.0) pg MCHC 34.1 (31.0-37.0) g/dL RDW 15.9 H (11.5-15.5) % Plt Count 68 L (150-450) k/uL Neutrophils % 62 % Lymphocytes % 19 % Monocytes % 7 % Eosinophils % 7 % Basophils % 0 % Neutrophils # 2.1 (1.3-7.7) k/uL Lymphocytes # 0.6 L (1.0-4.8) k/uL Monocytes # 0.2 (0-1.0) k/uL Eosinophils # 0.2 (0-0.7) k/uL Basophils # 0.0 (0-0.2) k/uL Manual Slide Review Performed PT 10.9 (9.0-12.0) sec INR 1.0 (<1.2) APTT 21.2 L (22.0-30.0) sec Sodium 138 (137-145) mmol/L Potassium 4.7 (3.5-5.1) mmol/L Chloride 108 H (98-107) mmol/L Carbon Dioxide 22 (22-30) mmol/L Anion Gap 8 mmol/L BUN 24 H (7-17) mg/dL Creatinine 0.96 (0.52-1.04) mg/dL Est GFR (CKD-EPI)AfAm 71 (>60 ml/min/1.73 sqM) Est GFR (CKD-EPI)NonAf 62 (>60 ml/min/1.73 sqM) Glucose 109 H (74-99) mg/dL Calcium 9.0 (8.4-10.2) mg/dL Total Bilirubin 1.9 H (0.2-1.3) mg/dL AST 26 (14-36) U/L ALT 25 (9-52) U/L Alkaline Phosphatase 98 (38-126) U/L Total Protein 6.5 (6.3-8.2) g/dL Albumin 3.3 L (3.5-5.0) g/dL Amylase 31 (30-110) U/L Lipase 61 (23-300) U/L Urine Color Urine Appearance (Clear) Urine pH (5.0-8.0) Ur Specific [place] (1.001-1.035) Urine Protein (Negative) Urine Glucose (UA) (Negative) Urine Ketones (Negative) Urine Blood (Negative) Urine Nitrite (Negative) Urine Bilirubin (Negative) Urine Urobilinogen (<2.0) mg/dL Ur Leukocyte Esterase (Negative) Urine RBC (0-5) /hpf Urine WBC (0-5) /hpf Ur Squamous Epith Cells (0-4) /hpf Urine Bacteria (None) /hpf Urine Yeast (Budding) (None) /hpf 06/06/18 Range/Units 14:00 WBC (3.8-10.6) k/uL RBC (3.80-5.40) m/uL Hgb (11.4-16.0) gm/dL Hct (34.0-46.0) % MCV (80.0-100.0) fL MCH (25.0-35.0) pg MCHC (31.0-37.0) g/dL RDW (11.5-15.5) % Plt Count (150-450) k/uL Neutrophils % % Lymphocytes % % Monocytes % % Eosinophils % % Basophils % % Neutrophils # (1.3-7.7) k/uL Lymphocytes # (1.0-4.8) k/uL Monocytes # (0-1.0) k/uL Eosinophils # (0-0.7) k/uL Basophils # (0-0.2) k/uL Manual Slide Review PT (9.0-12.0) sec INR (<1.2) APTT (22.0-30.0) sec Sodium (137-145) mmol/L Potassium (3.5-5.1) mmol/L Chloride (98-107) mmol/L Carbon Dioxide (22-30) mmol/L Anion Gap mmol/L BUN (7-17) mg/dL Creatinine (0.52-1.04) mg/dL Est GFR (CKD-EPI)AfAm (>60 ml/min/1.73 sqM) Est GFR (CKD-EPI)NonAf (>60 ml/min/1.73 sqM) Glucose (74-99) mg/dL Calcium (8.4-10.2) mg/dL Total Bilirubin (0.2-1.3) mg/dL AST (14-36) U/L ALT (9-52) U/L Alkaline Phosphatase (38-126) U/L Total Protein (6.3-8.2) g/dL Albumin (3.5-5.0) g/dL Amylase (30-110) U/L Lipase (23-300) U/L Urine Color Yellow Urine Appearance Clear (Clear) Urine pH 7.5 (5.0-8.0) Ur Specific [place] 1.013 (1.001-1.035) Urine Protein Negative (Negative) Urine Glucose (UA) Negative (Negative) Urine Ketones Negative (Negative) Urine Blood Negative (Negative) Urine Nitrite Negative (Negative) Urine Bilirubin Negative (Negative) Urine Urobilinogen 2.0 (<2.0) mg/dL Ur Leukocyte Esterase Moderate H (Negative) Urine RBC 1 (0-5) /hpf Urine WBC 19 H (0-5) /hpf Ur Squamous Epith Cells 1 (0-4) /hpf Urine Bacteria Rare H (None) /hpf Urine Yeast (Budding) Few H (None) /hpf 06/06/18 15:33 EKG shows normal sinus rhythm left axis deviation. Pulmonary disease pattern. Ventricular rate 94 beats were minute DE interval is 202 ms. QS her keane 100 ms. QT QTc is 380/475 most seconds. (Toan,Chelly) - Radiology Data No acute intracranial hemorrhage or mass effect or midline shift is seen on CT of the brain. No acute cardio pulmonary process. KUB shows unremarkable abdomen. (Chelly Joya) Disposition <Estuardo Monsalve - Last Filed: 06/06/18 15:10> Time of Disposition: 15:34 <Chelly Joya - Last Filed: 06/06/18 15:34> Clinical Impression: Weakness, Abdominal pain, UTI (urinary tract infection) Disposition: ADMITTED IP TO THIS HOSP Condition: Stable Referrals: Tom Han MD [Primary Care Provider] - 1-2 days
[2018-06-06 12:44] LABS: Basophils % (A) 0 %; Eosinophils # (A) 0.2 k/uL (0-0.7); Eosinophils % (A) 7 %; HCT 28.6 % (34.0-46.0); HGB 9.7 gm/dL (11.4-16.0); Lymphocytes # (A) 0.6 k/uL (1.0-4.8); Lymphocytes % (A) 19 %; MCH 32.5 pg (25.0-35.0); MCHC 34.1 g/dL (31.0-37.0); MCV 95.3 fL (80.0-100.0); Mean Platelet Volume 7.5; Monocytes # (A) 0.2 k/uL (0-1.0); Monocytes % (A) 7 %; Neutrophils # (A) 2.1 k/uL (1.3-7.7); Neutrophils % (A) 62 %; RDW 15.9 % (11.5-15.5); WBC 3.3 k/uL (3.8-10.6)
[2018-06-06 12:53] LABS: Prothrombin Time 10.9 sec (9.0-12.0)
[2018-06-06 12:56] LABS: Partial Thromboplastin Time 21.2 sec (22.0-30.0)
[2018-06-06 13:00] LABS: Platelet Count 68 k/uL (150-450)
[2018-06-06 13:19] LABS: Albumin 3.3 g/dL (3.5-5.0); Potassium 4.7 mmol/L (3.5-5.1); Total Bilirubin 1.9 mg/dL (0.2-1.3); Total Protein 6.5 g/dL (6.3-8.2)
[2018-06-06 14:36] LABS: Appearance,Urine Clear (Clear); Bacteria,Urine Rare /hpf; Bilirubin,Urine Negative (Negative); Blood,Urine Negative (Negative); Budding Yeast,Urine Few /hpf; Color,Urine Yellow; Glucose,Urine (UA) Negative (Negative); Ketones,Urine Negative (Negative); Leukocyte Esterase,Urine Moderate (Negative); Nitrite,Urine Negative (Negative); PH, Urine 7.5 (5.0-8.0); Protein,Urine Negative (Negative); RBC,Urine 1 /hpf (0-5); Specific Gravity,Urine 1.013 (1.001-1.035); Squamous Epithelial Cell,Urine 1 /hpf (0-4); WBC,Urine 19 /hpf (0-5)
[2018-06-06] MEDS ORDERED: MORPHINE SULFATE 2 MG/ML SYRINGE IVP ONE (15:01)
[2018-06-06] MEDS ORDERED: ONDANSETRON 4 MG/2 ML VIAL IVP PRN (15:34)
[2018-06-06] MEDS ORDERED: IBUPROFEN 400 MG TAB PO PRN (15:34)
[2018-06-06] MEDS ORDERED: NALOXONE 0.4 MG/ML 1 ML VIAL IV PRN (15:34)
[2018-06-06] MEDS ORDERED: ACETAMINOPHEN TAB 325 MG TAB PO PRN (15:34)
[2018-06-06] MEDS ORDERED: KETOROLAC 30 MG/ML 1 ML VIAL IVP PRN (15:34)
[2018-06-06] MEDS ORDERED: SODIUM CHLORIDE 0.9% 1,000 ML IV SCH (15:45)
[2018-06-06 19:28] LABS: Glucose,Whole Blood 109 mg/dL (75-99)
[2018-06-06] MEDS ORDERED: NITROGLYCERIN SL TABS 0.4 MG TAB SUBLINGUAL PRN (20:08)
[2018-06-06] MEDS ORDERED: MAGNESIUM HYDROXIDE 2,400 MG/10 ML CUP PO PRN (20:08)
[2018-06-06] MEDS ORDERED: DICYCLOMINE 10 MG CAP PO PRN (20:08)
[2018-06-06] MEDS: INSULIN ASPART (NovoLOG) 100 UNIT/ML VIAL SQ SCH (20:55)
[2018-06-06] MEDS ORDERED: DARBEPOETIN ALFA 40 MCG/0.4 ML SYRINGE SQ SCH (21:00)
[2018-06-06] MEDS: SYMBICORT 80-4.5 MCG INHALER INHALATION SCH (21:19)
[2018-06-06] MEDS: HYDROPHILIC CREAM 180 GM TUBE TOPICAL SCH (21:44)
[2018-06-06] MEDS: PETROLATUM, WHITE OINT 50 GM TUBE TOPICAL SCH (21:44)
[2018-06-06] MEDS: SULFAMETHOX-TMP 800-160MG 1 EACH TAB PO SCH (21:45)
[2018-06-06] MEDS: METOPROLOL TARTRATE 25 MG TAB PO SCH (21:45)
[2018-06-06] MEDS: SENNOSIDES 8.6 MG TAB PO SCH (21:45)
[2018-06-06] MEDS: CYCLOBENZAPRINE 10 MG TAB PO SCH (21:45)
[2018-06-06] MEDS: SPIRONOLACTONE 25 MG TAB PO SCH (21:45)
[2018-06-06] MEDS: DOCUSATE 100 MG CAP PO SCH (21:45)
[2018-06-06] MEDS: HYDROcodone/APAP 7.5-325MG 1 EACH TAB PO PRN (21:45)
[2018-06-06] MEDS: SODIUM CHLORIDE 0.9% 1,000 ML IV SCH (21:46)
[2018-06-06] MEDS: MORPHINE SULFATE 4 MG/ML SYRINGE IV PRN (23:26)
[2018-06-07] MEDS: CYCLOBENZAPRINE 10 MG TAB PO SCH ×3 (05:45→20:59)
[2018-06-07 06:56] LABS: Glucose,Whole Blood 105 mg/dL (75-99)
[2018-06-07] MEDS: INSULIN ASPART (NovoLOG) 100 UNIT/ML VIAL SQ SCH ×4 (07:56→21:00)
[2018-06-07] MEDS: MORPHINE SULFATE 4 MG/ML SYRINGE IV PRN ×2 (08:09→16:37)
[2018-06-07] MEDS: POLYETHYLENE GLYCOL 3350 17 GM POWD.PACK PO SCH (08:10)
[2018-06-07] MEDS: METOPROLOL TARTRATE 50 MG TAB PO SCH (08:11)
[2018-06-07] MEDS: ANASTROZOLE 1 MG TAB PO SCH (08:11)
[2018-06-07] MEDS: SPIRONOLACTONE 25 MG TAB PO SCH ×2 (08:11→20:59)
[2018-06-07] MEDS: SENNOSIDES 8.6 MG TAB PO SCH ×2 (08:11→20:59)
[2018-06-07] MEDS: PETROLATUM, WHITE OINT 50 GM TUBE TOPICAL SCH ×2 (08:11→21:00)
[2018-06-07] MEDS: ASPIRIN 81 MG PO SCH (08:11)
[2018-06-07] MEDS: FUROSEMIDE 40 MG TAB PO SCH (08:11)
[2018-06-07] MEDS: SULFAMETHOX-TMP 800-160MG 1 EACH TAB PO SCH ×2 (08:11→20:59)
[2018-06-07] MEDS: HYDROPHILIC CREAM 180 GM TUBE TOPICAL SCH ×2 (08:12→21:00)
[2018-06-07] MEDS: SYMBICORT 80-4.5 MCG INHALER INHALATION SCH ×2 (08:44→20:20)
[2018-06-07 08:45] LABS: Anisocytosis Slight; HCT 29.9 % (34.0-46.0); HGB 10.1 gm/dL (11.4-16.0); MCH 32.4 pg (25.0-35.0); MCHC 33.8 g/dL (31.0-37.0); MCV 95.7 fL (80.0-100.0); RBC 3.13 m/uL (3.80-5.40); RDW 16.4 % (11.5-15.5); WBC 3.2 k/uL (3.8-10.6)
[2018-06-07 08:46] LABS: Platelet Count 75 k/uL (150-450)
[2018-06-07] MEDS ORDERED: PANTOPRAZOLE 40 MG/10 ML VIAL IV SCH (09:00)
[2018-06-07 09:07] LABS: Eosinophils # (M) 0.16 k/uL (0-0.7); Lymphocytes # (M) 1.12 k/uL (1.0-4.8); Monocytes # (M) 0.29 k/uL (0-1.0); Neutrophils # (M) 1.63 k/uL (1.3-7.7); Neutrophils % (M) 51 %; Nucleated Red Blood Cells 0 /100 WBC (0-0); Total Cells Counted 100
[2018-06-07 09:27] LABS: Albumin 3.5 g/dL (3.5-5.0); Calcium 9.4 mg/dL (8.4-10.2); Total Protein 7.1 g/dL (6.3-8.2)
[2018-06-07 09:29] LABS: Potassium 5.6 mmol/L (3.5-5.1)
[2018-06-07 11:30] LABS: Glucose,Whole Blood 125 mg/dL (75-99)
--- NOTE | 2018-06-07 11:57 | P.HPIM ---
History of Present Illness 68-year-old female was brought to the emergency room with complaints of abdominal painchanges she was found to have urinary tract infection. Patient has persistent leg cellulitis. Patient was standing at [facility] and progressing well with physical therapy Review of Systems Constitutional: Reports fatigue Gastrointestinal: Reports abdominal pain Musculoskeletal: bilateral: ankle swelling Integumentary: Reports rash Past Medical History Past Medical History: Cancer, Heart Failure, COPD, Diabetes Mellitus, Fibromyalgia, Hyperlipidemia, Hypertension, Renal Disease, Rheumatoid Arthritis (RA), Seizure Disorder, Supraventricular Tachycardia (SVT) Additional Past Medical History / Comment(s): IDDM type II, neuropathy bilateral legs/feet and hands, past cellulitis leg, R breast cancer with surgery and chemo, seizures with last time "years" ago, UTI, CKD, UTIs, chronic anemiaDM Type II. Recent dental extraction (all teeth from lower jaw 11/2017) History of Any Multi-Drug Resistant Organisms: VRE Date of last positivie culture/infection: 05/11/18 MDRO Source:: VRE URINE Past Surgical History: Adenoidectomy, Appendectomy, Breast Surgery, Cholecy stectomy, Hysterectomy, Orthopedic Surgery, Tonsillectomy, Tubal Ligation Additional Past Surgical History / Comment(s): masectomy right, ganglion cyst right hand, total hysterectomy (hx of tubal pregnancies), lower teeth extracted. Past Anesthesia/Blood Transfusion Reactions: No Reported Reaction Past Psychological History: Anxiety, Depression Additional Psychological History / Comment(s): Pt currently is at [facility] on the [place] for rehab. She needs assist with ADLS except feeds self. She states up until just lately she was getting up with a walker some.Her daughter lives with her. No experience. Did not work outside of the home. No international travel. There is a pet dog in the home. No alcohol use Smoking Status: Never smoker Past Alcohol Use History: None Reported Additional Past Alcohol Use History / Comment(s): Pt started smoking in 1971 and qut in December 2017. Per patient she smoked 1-2 cigarettes a day after meals. Past Drug Use History: None Reported - Past Family History Father Family Medical History: Cancer, CVA/TIA Additional Family Medical History / Comment(s): 2000 from lung cancer Mother Family Medical History: Cancer, Dementia Additional Family Medical History / Comment(s): 2014 at age 86. Oral & Breast cancer Brother(s) Family Medical History: Asthma, Diabetes Mellitus, Fibromyalgia, Osteoarthritis (OA) Additional Family Medical History / Comment(s): Obesity. Joint replacements Medications and Allergies Home Medications Medication Instructions Recorded Confirmed Type Fluticasone/Salmeterol [Advair 1 puff INHALATION RT-DAILY@0900 06/24/14 06/06/18 History 100-50 Diskus] Anastrozole [Arimidex] 1 mg PO DAILY@0900 09/30/14 06/06/18 History Cyclobenzaprine [Flexeril] 10 mg PO TID@0600,1400,2200 01/08/18 06/06/18 History Acetaminophen Tab [Tylenol] 650 mg PO Q4H PRN 02/20/18 06/06/18 History Aspirin 81 mg PO DAILY@0900 02/20/18 06/06/18 History Docusate [Colace] 100 mg PO DAILY@2100 02/20/18 06/06/18 History Ferrous Sulfate [Iron (65 MG 325 mg PO DAILY@1700 02/20/18 06/06/18 History Elemental)] Metoprolol Tartrate [Lopressor] 25 mg PO HS tab 02/28/18 06/06/18 Rx Metoprolol Tartrate [Lopressor] 50 mg PO DAILY tab 02/28/18 06/06/18 Rx Nitroglycerin Sl Tabs [Nitrostat] 0.4 mg SUBLINGUAL Q5M PRN tab 02/28/18 06/06/18 Rx Darbepoetin Gurwinder [Aranesp] 40 mcg SQ WE 04/02/18 06/06/18 History Dicyclomine [Bentyl] 10 mg PO Q8H PRN 04/02/18 06/06/18 History Hydrophilic Cream [Triad Cream] 1 applic TOPICAL Q12H 04/02/18 06/06/18 History Sennosides [Senna] 8.6 mg PO BID@0900,2100 04/02/18 06/06/18 History Spironolactone [Aldactone] 25 mg PO BID #60 tab 04/06/18 06/06/18 Rx Polyethylene Glycol 3350 [Miralax] 17 gram PO DAILY 05/07/18 06/06/18 History Furosemide [Lasix] 40 mg PO DAILY tab 05/11/18 06/06/18 Rx Hydrocodone/Acetaminophen [[place] 1 tab PO Q6HR PRN 06/06/18 06/06/18 History 7.5-325] Insulin Glargine,Hum.rec.anlog 5 unit SQ HS 06/06/18 06/06/18 History [Basaglar Kwikpen U-100] Insulin Lispro [humaLOG Kwikpen] See Protocol SQ AC-TID 06/06/18 06/06/18 History Magnesium Hydroxide [Milk of 2,400 mg PO HS PRN 06/06/18 06/06/18 History Magnesia] Petrolatum, White [Aquaphor] 1 applic TOPICAL BID 06/06/18 06/06/18 History Allergies Allergy/AdvReac Type Severity Reaction Status Date / Time cephalexin [From Keflex] Allergy Unknown Verified 06/06/18 11:06 Penicillins Allergy Rash/Hives Verified 06/06/18 11:06 codeine AdvReac Nausea & Verified 06/06/18 11:06 Vomiting phenobarbital AdvReac Unknown Verified 06/06/18 11:06 phenytoin sodium AdvReac Unknown Verified 06/06/18 11:06 [From Dilantin] phenytoin sodium extended AdvReac Unknown Verified 06/06/18 11:06 [From Dilantin] primidone [From Mysoline] AdvReac Unknown Verified 06/06/18 11:06 Physical Exam Vitals: Vital Signs Temp Pulse Pulse Resp BP BP Pulse Ox 06/07/18 11:49 97.8 F 65 17 112/68 98 06/07/18 06:04 98 F 72 16 98/61 97 06/06/18 21:32 98.3 F 95 18 120/77 95 06/06/18 19:00 98.1 F 72 20 124/66 98 06/06/18 16:00 90 20 138/66 95 06/06/18 15:08 98.1 F 94 16 132/91 98 06/06/18 14:00 88 20 114/74 99 Intake and Output 06/06/18 06/07/18 06/07/18 22:59 06:59 14:59 Other: # Voids 1 1 1 - Constitutional General appearance: mild distress, obese - EENT Eyes: PERRLA Ears: bilateral: normal - Neck Neck: normal ROM - Respiratory Respiratory: bilateral: CTA - Cardiovascular Rhythm: regular - Gastrointestinal General gastrointestinal: normal bowel sounds, soft - Integumentary Lower extremities. Noted rash under abdominal apron Integumentary: cellulitis - Neurologic Neurologic: CNII-XII intact - Musculoskeletal Musculoskeletal: generalized weakness - Psychiatric Psychiatric: A&O x's 3, appropriate affect, intact judgment & insight Results CBC & Chem 7: 06/07/18 07:55 06/07/18 08:15 Labs: Abnormal Lab Results - Last 24 Hours (Table) 06/06/18 06/06/18 06/06/18 Range/Units 12:14 12:14 12:14 WBC 3.3 L (3.8-10.6) k/uL RBC 3.00 L (3.80-5.40) m/uL Hgb 9.7 L (11.4-16.0) gm/dL Hct 28.6 L (34.0-46.0) % RDW 15.9 H (11.5-15.5) % Plt Count 68 L (150-450) k/uL Lymphocytes # 0.6 L (1.0-4.8) k/uL APTT 21.2 L (22.0-30.0) sec Potassium (3.5-5.1) mmol/L Chloride 108 H (98-107) mmol/L BUN 24 H (7-17) mg/dL Glucose 109 H (74-99) mg/dL POC Glucose (mg/dL) (75-99) mg/dL Total Bilirubin 1.9 H (0.2-1.3) mg/dL AST (14-36) U/L Albumin 3.3 L (3.5-5.0) g/dL Ur Leukocyte Esterase (Negative) Urine WBC (0-5) /hpf Urine Bacteria (None) /hpf Urine Yeast (Budding) (None) /hpf 06/06/18 06/06/18 06/07/18 Range/Units 14:00 19:26 06:55 WBC (3.8-10.6) k/uL RBC (3.80-5.40) m/uL Hgb (11.4-16.0) gm/dL Hct (34.0-46.0) % RDW (11.5-15.5) % Plt Count (150-450) k/uL Lymphocytes # (1.0-4.8) k/uL APTT (22.0-30.0) sec Potassium (3.5-5.1) mmol/L Chloride (98-107) mmol/L BUN (7-17) mg/dL Glucose (74-99) mg/dL POC Glucose (mg/dL) 109 H 105 H (75-99) mg/dL Total Bilirubin (0.2-1.3) mg/dL AST (14-36) U/L Albumin (3.5-5.0) g/dL Ur Leukocyte Esterase Moderate H (Negative) Urine WBC 19 H (0-5) /hpf Urine Bacteria Rare H (None) /hpf Urine Yeast (Budding) Few H (None) /hpf 06/07/18 06/07/18 06/07/18 Range/Units 07:55 08:15 11:30 WBC 3.2 L (3.8-10.6) k/uL RBC 3.13 L (3.80-5.40) m/uL Hgb 10.1 L (11.4-16.0) gm/dL Hct 29.9 L (34.0-46.0) % RDW 16.4 H (11.5-15.5) % Plt Count 75 L (150-450) k/uL Lymphocytes # (1.0-4.8) k/uL APTT (22.0-30.0) sec Potassium 5.6 H (3.5-5.1) mmol/L Chloride 113 H (98-107) mmol/L BUN 20 H (7-17) mg/dL Glucose 106 H (74-99) mg/dL POC Glucose (mg/dL) 125 H (75-99) mg/dL Total Bilirubin 2.0 H (0.2-1.3) mg/dL AST 41 H (14-36) U/L Albumin (3.5-5.0) g/dL Ur Leukocyte Esterase (Negative) Urine WBC (0-5) /hpf Urine Bacteria (None) /hpf Urine Yeast (Budding) (None) /hpf Microbiology - Last 24 Hours (Table) 06/06/18 14:00 Urine Culture - Preliminary Urine,Voided Chest x-ray: report reviewed Abdominal x-ray: report reviewed CT Scan - head: report reviewed (EKG sinus rhythm) Thrombosis Risk Factor Assmnt - Choose All That Apply Any of the Below Risk Factors Present?: Yes Each Factor Represents 1 point: Obesity (BMI >25), Swollen legs (current) Other Risk Factors: Yes Each Risk Factor Represents 2 Points: Age 61-74 years Thrombosis Risk Factor Assessment Total Risk Factor Score: 4 Thrombosis Risk Factor Assessment Level: Moderate Risk Assessment and Plan Plan: Assessment Weakness Urinary tract infection with pelvic pain Pancytopenia Frances abdominal apron Chronic lower extremity cellulitis Anemia of chronic disease History of SVT Seizure disorder controlled for years Right breast cancer Diabetes type 2 Fibromyalgia Hyperlipidemia Hypertension Rheumatoid arthritis Chronic renal disease Plan Patient on Bactrim Consultation oncology for pancytopenia
[2018-06-07] MEDS: diphenhydrAMINE 25 MG CAP PO PRN (13:14)
[2018-06-07 13:21] LABS: Calcium 9.2 mg/dL (8.4-10.2); Potassium 5.2 mmol/L (3.5-5.1)
[2018-06-07] MEDS: FERROUS SULFATE 325 MG TAB PO SCH (15:15)
[2018-06-07 16:29] VITALS: BMI 42.5
[2018-06-07 17:17] LABS: Glucose,Whole Blood 157 mg/dL (75-99)
[2018-06-07 20:12] LABS: Glucose,Whole Blood 148 mg/dL (75-99)
[2018-06-07] MEDS: SODIUM CHLORIDE 0.9% 1,000 ML IV SCH (20:23)
[2018-06-07] MEDS: DOCUSATE 100 MG CAP PO SCH (20:59)
[2018-06-07] MEDS: METOPROLOL TARTRATE 25 MG TAB PO SCH (20:59)
[2018-06-07] MEDS: NYSTATIN 100,000UNIT/GM CREAM 30 GM TUBE TOPICAL SCH (20:59)
--- NOTE | 2018-06-07 21:56 | P.CONS ---
History of Present Illness - Reason for Consult Consult date: 06/07/18 pancytopenia Requesting physician: Tawny Woods - Chief Complaint abd pain, recurrent UTI - History of Present Illness Ms. Zuniga is a very pleasant female patient of Dr. Mann with a history of right breast cancer diagnosed in 2013. Patient was treated with right breast mastectomy on December 03, 2013, sentinel node biopsy, pathology revealed grade 3, 2.6 cm invasive ductal carcinoma, ER positive, IL negative, HER-2 nu negative by fish. She had had an Oncotype DX high recurrence score 40. Patient did adjuvant CMF regimen started on February 28, 2014, completing 6 cycles August 15, 2014. She started arimidex in August 2014. Last OV was 01/18/2016. Patient states that every time she tried to follow up with Dr. Mann she would be back in the hospital. Patient is admitted for urinary tract infection, patient states she's had at least one urinary tract infection a month for at least the last for 5 months. Patient was admitted with lethargy, noted to be shaking in the emergency department, patient states she fell at home, she vomited 3 times yesterday, denied a fever, cough, shortness of breath, abdominal pain or cramping, diarrhea, constipation, minimal urinary symptoms reported, no pain to report. CT of the brain was negative, chest x-ray was negative for an acute process, kidney ureters and bladder x-ray negative. We've been asked to see patient for pancytopenia, WBC is 3.2, hemoglobin 10.1, platelets 75,000. Last CBC in the office was noted to be within normal limits Review of Systems 14 point review of systems is negative except as stated in HPI Past Medical History Past Medical History: Cancer, Heart Failure, COPD, Diabetes Mellitus, Fibromyalgia, Hyperlipidemia, Hypertension, Renal Disease, Rheumatoid Arthritis (RA), Seizure Disorder, Supraventricular Tachycardia (SVT) Additional Past Medical History / Comment(s): IDDM type II, neuropathy bilateral legs/feet and hands, past cellulitis leg, R breast cancer with surgery and chemo , seizures with last time "years" ago, UTI, CKD, UTIs, chronic anemiaDM Type II. Recent dental extraction (all teeth from lower jaw 11/2017) History of Any Multi-Drug Resistant Organisms: VRE Year Discovered:: 05/11/18 MDRO Source:: VRE URINE Past Surgical History: Adenoidectomy, Appendectomy, Breast Surgery, Cholecystectomy, Hysterectomy, Orthopedic Surgery, Tonsillectomy, Tubal Ligation Additional Past Surgical History / Comment(s): masectomy right, ganglion cyst right hand, total hysterectomy (hx of tubal pregnancies), lower teeth extracted. Past Anesthesia/Blood Transfusion Reactions: No Reported Reaction Past Psychological History: Anxiety, Depression Additional Psychological History / Comment(s): Pt currently is at [facility] for rehab. She needs assist with ADLS except feeds self. She states up until just lately she was getting up with a walker some.Her daughter lives with her. No experience. Did not work outside of the home. No international travel. There is a pet dog in the home. No alcohol use Smoking Status: Never smoker Past Alcohol Use History: None Reported Additional Past Alcohol Use History / Comment(s): Pt started smoking in 1971 and qut in December 2017. Per patient she smoked 1-2 cigarettes a day after meals. Past Drug Use History: None Reported - Past Family History Father Family Medical History: Cancer, CVA/TIA Additional Family Medical History / Comment(s): 2000 from lung cancer Mother Family Medical History: Cancer, Dementia Additional Family Medical History / Comment(s): 2014 at age 86. Oral & Breast cancer Brother(s) Family Medical History: Asthma, Diabetes Mellitus, Fibromyalgia, Osteoarthritis (OA) Additional Family Medical History / Comment(s): Obesity. Joint replacements Medications and Allergies Home Medications Medication Instructions Recorded Confirmed Type Fluticasone/Salmeterol [Advair 1 puff INHALATION RT-DAILY@89906/24/14 06/06/18 History 100-50 Diskus] Anastrozole [Arimidex] 1 mg PO DAILY@89909/30/14 06/06/18 History Cyclobenzaprine [Flexeril] 10 mg PO TID@0600,1400,2200 01/08/18 06/06/18 History Acetaminophen Tab [Tylenol] 650 mg PO Q4H PRN 02/20/18 06/06/18 History Aspirin 81 mg PO DAILY@0900 02/20/18 06/06/18 History Docusate [Colace] 100 mg PO DAILY@2100 02/20/18 06/06/18 History Ferrous Sulfate [Iron (65 MG 325 mg PO DAILY@1700 02/20/18 06/06/18 History Elemental)] Metoprolol Tartrate [Lopressor] 25 mg PO HS tab 02/28/18 06/06/18 Rx Metoprolol Tartrate [Lopressor] 50 mg PO DAILY tab 02/28/18 06/06/18 Rx Nitroglycerin Sl Tabs [Nitrostat] 0.4 mg SUBLINGUAL Q5M PRN tab 02/28/18 06/06/18 Rx Darbepoetin Gurwinder [Aranesp] 40 mcg SQ WE 04/02/18 06/06/18 History Dicyclomine [Bentyl] 10 mg PO Q8H PRN 04/02/18 06/06/18 History Hydrophilic Cream [Triad Cream] 1 applic TOPICAL Q12H 04/02/18 06/06/18 History Sennosides [Senna] 8.6 mg PO BID@0900,2100 04/02/18 06/06/18 History Spironolactone [Aldactone] 25 mg PO BID #60 tab 04/06/18 06/06/18 Rx Polyethylene Glycol 3350 [Miralax] 17 gram PO DAILY 05/07/18 06/06/18 History Furosemide [Lasix] 40 mg PO DAILY tab 05/11/18 06/06/18 Rx Hydrocodone/Acetaminophen [[place] 1 tab PO Q6HR PRN 06/06/18 06/06/18 History 7.5-325] Insulin Glargine,Hum.rec.anlog 5 unit SQ HS 06/06/18 06/06/18 History [Basaglar Kwikpen U-100] Insulin Lispro [humaLOG Kwikpen] See Protocol SQ AC-TID 06/06/18 06/06/18 History Magnesium Hydroxide [Milk of 2,400 mg PO HS PRN 06/06/18 06/06/18 History Magnesia] Petrolatum, White [Aquaphor] 1 applic TOPICAL BID 06/06/18 06/06/18 History Allergies Allergy/AdvReac Type Severity Reaction Status Date / Time cephalexin [From Keflex] Allergy Unknown Verified 06/06/18 11:06 Penicillins Allergy Rash/Hives Verified 06/06/18 11:06 codeine AdvReac Nausea & Verified 06/06/18 11:06 Vomiting phenobarbital AdvReac Unknown Verified 06/06/18 11:06 phenytoin sodium AdvReac Unknown Verified 06/06/18 11:06 [From Dilantin] phenytoin sodium extended AdvReac Unknown Verified 06/06/18 11:06 [From Dilantin] primidone [From Mysoline] AdvReac Unknown Verified 06/06/18 11:06 Physical Exam Vitals: Vital Signs Temp Pulse Pulse Resp BP BP Pulse Ox 06/07/18 13:17 65 92/65 99 06/07/18 11:49 97.8 F 65 17 112/68 98 06/07/18 06:04 98 F 72 16 98/61 97 06/06/18 21:32 98.3 F 95 18 120/77 95 06/06/18 19:00 98.1 F 72 20 124/66 98 Intake and Output 06/07/18 06/07/18 06/07/18 06:59 14:59 22:59 Other: # Voids 1 1 - Constitutional General appearance: cooperative, morbidly obese, no acute distress - EENT Eyes: anicteric sclerae, EOMI ENT: hearing grossly normal, normal oropharynx - Neck Neck: no lymphadenopathy - Respiratory Respiratory: bilateral: CTA - Cardiovascular Rhythm: regular Heart sounds: normal: S1, S2 Abnormal Heart Sounds: no systolic murmur, no diastolic murmur, no rub, no S3 Gallop, no S4 Gallop, no click, no other leg Peripheral Edema: bilateral: Trace - Gastrointestinal General gastrointestinal: no absent bowel sounds, no decreased bowel sounds, no distended, no hepatomegaly, no hyperactive bowel sounds, normal bowel sounds, no organomegaly, no rigid, no scaphoid, soft, no splenomegaly, no tenderness, no umbilical hernia, no ventral hernia - Integumentary Integumentary: pale - Neurologic Neurologic: CNII-XII intact - Musculoskeletal Musculoskeletal: generalized weakness - Psychiatric Psychiatric: A&O x's 3, appropriate affect, intact judgment & insight Left breast examined, no evidence to suggest a mass, right mastectomy scar evaluated no masses or skin changes, no axillary adenopathy Results CBC & Chem 7: 06/07/18 07:55 06/07/18 12:35 Labs: Abnormal Lab Results - Last 24 Hours (Table) 06/06/18 06/07/18 06/07/18 Range/Units 19:26 06:55 07:55 WBC 3.2 L (3.8-10.6) k/uL RBC 3.13 L (3.80-5.40) m/uL Hgb 10.1 L (11.4-16.0) gm/dL Hct 29.9 L (34.0-46.0) % RDW 16.4 H (11.5-15.5) % Plt Count 75 L (150-450) k/uL Potassium (3.5-5.1) mmol/L Chloride (98-107) mmol/L BUN (7-17) mg/dL Creatinine (0.52-1.04) mg/dL Glucose (74-99) mg/dL POC Glucose (mg/dL) 109 H 105 H (75-99) mg/dL Total Bilirubin (0.2-1.3) mg/dL AST (14-36) U/L 06/07/18 06/07/18 06/07/18 Range/Units 08:15 11:30 12:35 WBC (3.8-10.6) k/uL RBC (3.80-5.40) m/uL Hgb (11.4-16.0) gm/dL Hct (34.0-46.0) % RDW (11.5-15.5) % Plt Count (150-450) k/uL Potassium 5.6 H 5.2 H (3.5-5.1) mmol/L Chloride 113 H 111 H (98-107) mmol/L BUN 20 H 20 H (7-17) mg/dL Creatinine 1.12 H (0.52-1.04) mg/dL Glucose 106 H 117 H (74-99) mg/dL POC Glucose (mg/dL) 125 H (75-99) mg/dL Total Bilirubin 2.0 H (0.2-1.3) mg/dL AST 41 H (14-36) U/L Microbiology - Last 24 Hours (Table) 06/06/18 14:00 Urine Culture - Preliminary Urine,Voided Chest x-ray: report reviewed Abdominal x-ray: report reviewed CT Scan - head: report reviewed Assessment and Plan (1) Pancytopenia Narrative/Plan: Patient was noted to have normal blood counts after completing her treatment in 2014. On [facility] EMR chart review patient is noted to have pancytopenia during her hospitalizations. Suspect a degree of marrow damage from history of chemotherapy exacerbated with acute illness. Pancytopenia workup will be ordered to rule out other cause. Patient's counts are low but not requiring intervention at this time. Current Visit: Yes Status: Acute Priority: High Code(s): D61.818 - OTHER PANCYTOPENIA SNOMED Code(s): 954098740 (2) UTI (urinary tract infection) Narrative/Plan: Recurrent over the last several months despite antibiotic therapy. Have requested Infectious Disease consultation Current Visit: Yes Status: Acute Priority: High Code(s): N39.0 - URINARY TRACT INFECTION, SITE NOT SPECIFIED SNOMED Code(s): 97519449 (3) History of breast cancer Narrative/Plan: Patient did recently have mammogram on the left breast, breast exam performed today with no suspicious findings. Patient does continue on Arimidex for now. Current Visit: No Status: Chronic Priority: Low Code(s): Z85.3 - PERSONAL HISTORY OF MALIGNANT NEOPLASM OF BREAST SNOMED Code(s): 150877965
[2018-06-07] MEDS ORDERED: LEVOFLOXACIN 500MG-D5W PMX 500 MG in DEXTROSE/WATER 1 100ML.BAG IVPB SCH (22:00)
[2018-06-07] MEDS: HYDROcodone/APAP 7.5-325MG 1 EACH TAB PO PRN (23:43)
[2018-06-08] MEDS: CYCLOBENZAPRINE 10 MG TAB PO SCH ×3 (04:56→20:36)
[2018-06-08] MEDS: HYDROcodone/APAP 7.5-325MG 1 EACH TAB PO PRN (04:56)
[2018-06-08 07:06] LABS: Glucose,Whole Blood 117 mg/dL (75-99)
[2018-06-08] MEDS: INSULIN ASPART (NovoLOG) 100 UNIT/ML VIAL SQ SCH ×4 (07:28→21:02)
[2018-06-08] MEDS: SPIRONOLACTONE 25 MG TAB PO SCH ×2 (07:34→20:36)
[2018-06-08] MEDS: METOPROLOL TARTRATE 50 MG TAB PO SCH (07:34)
[2018-06-08] MEDS: POLYETHYLENE GLYCOL 3350 17 GM POWD.PACK PO SCH ×2 (07:34→07:40)
[2018-06-08] MEDS: PANTOPRAZOLE 40 MG TABLET PO SCH (07:34)
[2018-06-08] MEDS: FUROSEMIDE 40 MG TAB PO SCH (07:34)
[2018-06-08] MEDS: SENNOSIDES 8.6 MG TAB PO SCH ×2 (07:35→20:36)
[2018-06-08] MEDS: ASPIRIN 81 MG PO SCH (07:35)
[2018-06-08] MEDS: ANASTROZOLE 1 MG TAB PO SCH (07:35)
[2018-06-08] MEDS: HYDROPHILIC CREAM 180 GM TUBE TOPICAL SCH ×2 (07:37→20:35)
[2018-06-08] MEDS: PETROLATUM, WHITE OINT 50 GM TUBE TOPICAL SCH ×2 (07:38→20:37)
[2018-06-08] MEDS: NYSTATIN 100,000UNIT/GM CREAM 30 GM TUBE TOPICAL SCH ×2 (07:38→20:37)
[2018-06-08] MEDS: SYMBICORT 80-4.5 MCG INHALER INHALATION SCH ×2 (08:21→20:04)
[2018-06-08] MEDS: diphenhydrAMINE 25 MG CAP PO PRN (08:26)
[2018-06-08] MEDS: MORPHINE SULFATE 4 MG/ML SYRINGE IV PRN ×2 (10:15→16:04)
[2018-06-08 11:18] LABS: Glucose,Whole Blood 123 mg/dL (75-99)
[2018-06-08 11:56] LABS: Anisocytosis Slight; HCT 29.7 % (34.0-46.0); HGB 10.1 gm/dL (11.4-16.0); MCH 33.1 pg (25.0-35.0); MCHC 33.9 g/dL (31.0-37.0); MCV 97.6 fL (80.0-100.0); Macrocytosis Slight; Mean Platelet Volume 8.2; Poikilocytosis Slight; RBC 3.05 m/uL (3.80-5.40); RDW 16.1 % (11.5-15.5); WBC 3.9 k/uL (3.8-10.6)
[2018-06-08 11:59] LABS: Platelet Count 83 k/uL (150-450)
--- NOTE | 2018-06-08 12:04 | P.PN ---
Subjective This is a pleasant 68 years old female with past medical history of congestive heart failure, COPD, diabetes mellitus, fibromyalgia, hyperlipidemia, hypertension, rheumatoid arthritis, seizure disorder, supraventricular tachycardia, diabetic neuropathy, Celexa the leg, right breast cancer status post surgery with chemotherapy who presents because of abdominal pain. Her pain in the lower abdomen associated with some suprapubic tenderness. was found to have urinary tract infection Vital signs stable and patient is afebrile, blood pressure on the low normal side. Labs reviewed showing creatinine 1.12, potassium 5.6, sodium 140, sugar is controlled. CBC showing pancytopenia with WBC 3.2, hemoglobin 10.1, platelets 75. Urine is suspicious for infection with moderate leukocyte esterase. Urine culture showing a group D enterococcus. Objective - Vital Signs Vital signs: Vital Signs Temp 97.3 F L 06/08/18 11:35 Pulse 60 06/08/18 11:35 Resp 16 06/08/18 11:35 BP 92/54 06/08/18 11:35 Pulse Ox 99 06/08/18 11:35 Intake & Output 06/07/18 06/08/18 06/08/18 18:59 06:59 18:59 Weight 112.491 kg Other: Voiding Method Toilet # Voids 1 2 - Labs CBC & Chem 7: 06/07/18 07:55 06/07/18 12:35 Labs: Abnormal Lab Results - Last 24 Hours (Table) 06/07/18 06/07/18 06/07/18 Range/Units 12:35 17:16 20:11 Potassium 5.2 H (3.5-5.1) mmol/L Chloride 111 H (98-107) mmol/L BUN 20 H (7-17) mg/dL Creatinine 1.12 H (0.52-1.04) mg/dL Glucose 117 H (74-99) mg/dL POC Glucose (mg/dL) 157 H 148 H (75-99) mg/dL 06/08/18 06/08/18 Range/Units 07:03 11:17 Potassium (3.5-5.1) mmol/L Chloride (98-107) mmol/L BUN (7-17) mg/dL Creatinine (0.52-1.04) mg/dL Glucose (74-99) mg/dL POC Glucose (mg/dL) 117 H 123 H (75-99) mg/dL Microbiology - Last 24 Hours (Table) 06/06/18 14:00 Urine Culture - Preliminary Urine,Voided Group D Enterococcus Assessment and Plan Assessment: UTI with enterococcus Pancytopenia Chronic kidney disease, stage III History of SVT Seizure disorder controlled for years History of Right breast cancer, status post chemotherapy and surgery Diabetes type 2, insulin-dependent. Fibromyalgia Hyperlipidemia Hypertension Rheumatoid arthritis History of COPD, not an active issue History of congestive heart failure, not in active issue. Plan: This is a pleasant 68 years old female who presents because of UTI with enterococcus. Continue with antibiotics. Call infectious diseases specialist. Continue with gentle hydration number cardiology input is appreciated for pancytopenia.Labs and medication were reviewed.. Continue same treatment. Continue with symptomatic treatment. Resume home medication. Monitor lytes and vitals. DVT and GI prophylaxis. Further recommendations of the clinical course of the patient DVT prophylaxis: Subcutaneous heparin GI Prophylaxis: Pepcid PT/OT: Pending Prognosis is guarded
[2018-06-08] MEDS: FAMOTIDINE 20 MG TAB PO SCH (13:55)
[2018-06-08 16:44] LABS: Protein, Total 6.2 g/dL (6.2-8.2)
[2018-06-08] MEDS: FERROUS SULFATE 325 MG TAB PO SCH (16:49)
[2018-06-08 17:11] LABS: Glucose,Whole Blood 131 mg/dL (75-99)
--- NOTE | 2018-06-08 17:19 | P.PN ---
Subjective Progress Note Date: 06/08/18 Principal diagnosis: Pancytopenia, history of breast cancer-on Arimidex In follow-up today patient is tired, no fevers overnight, denies any bleeding, nausea, dysuria, hematuria, diarrhea or constipation. No side effects related to Arimidex Objective - Vital Signs Vital signs: Vital Signs Temp 97.3 F L 06/08/18 11:35 Pulse 60 06/08/18 11:35 Resp 16 06/08/18 11:35 BP 92/54 06/08/18 11:35 Pulse Ox 99 06/08/18 11:35 Intake & Output 06/07/18 06/08/18 06/08/18 18:59 06:59 18:59 Weight 112.491 kg Other: Voiding Method Toilet # Voids 1 2 3 # Bowel Movements 1 - Exam Well-developed, obese female laying in bed, no acute distress, alert and oriented to self, place and time, she is drifting in and out of sleep, r espirations even and unlabored. - Labs CBC & Chem 7: 06/08/18 10:45 06/07/18 12:35 Labs: Abnormal Lab Results - Last 24 Hours (Table) 06/07/18 06/07/18 06/08/18 Range/Units 17:16 20:11 07:03 RBC (3.80-5.40) m/uL Hgb (11.4-16.0) gm/dL Hct (34.0-46.0) % RDW (11.5-15.5) % Plt Count (150-450) k/uL POC Glucose (mg/dL) 157 H 148 H 117 H (75-99) mg/dL 06/08/18 06/08/18 Range/Units 10:45 11:17 RBC 3.05 L (3.80-5.40) m/uL Hgb 10.1 L (11.4-16.0) gm/dL Hct 29.7 L (34.0-46.0) % RDW 16.1 H (11.5-15.5) % Plt Count 83 L (150-450) k/uL POC Glucose (mg/dL) 123 H (75-99) mg/dL Microbiology - Last 24 Hours (Table) 06/06/18 14:00 Urine Culture - Preliminary Urine,Voided Group D Enterococcus Assessment and Plan (1) Pancytopenia Narrative/Plan: On [facility] EMR chart review patient is noted to have pancytopenia during her hospitalizations. Suspect a degree of marrow damage from history of chemotherapy exacerbated with acute illness. Pancytopenia pending White blood cell count is within normal limits today, hemoglobin is improved, platelets stable slightly improved . No intervention at this time. Current Visit: Yes Status: Acute Priority: High Code(s): D61.818 - OTHER PANCYTOPENIA SNOMED Code(s): 738971883 (2) UTI (urinary tract infection) Narrative/Plan: Appreciate Infectious Disease consultation Current Visit: Yes Status: Acute Priority: High Code(s): N39.0 - URINARY TRACT INFECTION, SITE NOT SPECIFIED SNOMED Code(s): 90966788 (3) History of breast cancer Narrative/Plan: Patient did recently have mammogram on the left breast, breast exam performed 06/07 with no suspicious findings. Continue Arimidex. Follow up with Dr. Mann Current Visit: No Status: Chronic Priority: Low Code(s): Z85.3 - PERSONAL HISTORY OF MALIGNANT NEOPLASM OF BREAST SNOMED Code(s): 352251124
[2018-06-08 17:31] LABS: Iron Saturation 24.73 (12.00-45.00); Rheumatoid Factor 8 IU/mL (0-15)
[2018-06-08] MEDS: HEPARIN SODIUM,PORCINE 5,000 UNIT/ML 1 ML VIAL SQ SCH (20:35)
[2018-06-08] MEDS: SODIUM CHLORIDE 0.9% 1,000 ML IV SCH (20:35)
[2018-06-08] MEDS: DOCUSATE 100 MG CAP PO SCH (20:35)
[2018-06-08] MEDS: METOPROLOL TARTRATE 25 MG TAB PO SCH (20:36)
[2018-06-08] MEDS: LINEZOLID 600 MG in DEXTROSE/WATER 1 300ML.BAG IVPB SCH (20:36)
[2018-06-08 20:59] LABS: Glucose,Whole Blood 220 mg/dL (75-99)
[2018-06-08] MEDS ORDERED: FAMOTIDINE 20 MG/2 ML VIAL IV SCH (21:00)
[2018-06-08] MEDS ORDERED: LEVOFLOXACIN 250 MG TAB PO SCH (21:00)
--- NOTE | 2018-06-08 22:33 | P.CONS ---
History of Present Illness - Reason for Consult Consult date: 06/08/18 - Chief Complaint Weakness with nausea and emesis - History of Present Illness 68-year-old woman who has a history of breast carcinoma from several years ago where she underwent mastectomy, lymph node dissection, postoperative chemotherapy and Arimidex for 5 years. She relates generally she's been feeling poorly having a urinary tract infection almost every month as of late. Follow with her primary physician receiving some antibiotic therapy. She relates that the day of admission she started to feel poorly with fever and chills as well as emesis on 3 occasions. She became progressively weak and constantly presented to the emergency center. At that time there is evidence of a low-grade fever chills generalized malaise and urinary tract infection and she was admitted to hospital. With concerns to a drug-resistant urinary tract infection the infectious diseases consultation was requested Review of Systems Patient feels poorly HEENT:Denies headache or acute visual change. Denies sinus or mouth discomforts. Denies neck stiffness or pain. Denies significant oral cavity pain. Denies difficulty on swallowing. Lungs: Denies significant shortness of breath, cough, sputum production, or hemoptysis. Cardiovascular: Denies significant shortness of breath, chest pain, chest wall pain, orthopnea, dyspnea on exertion, syncope Gastrointestinal: Nausea and emesis have improved she was able to tolerate some lunch denies abdominal pain Musculoskeletal: denies significant myalgias or arthralgias. No new joint swelling. Denies new back pain. Skin: Denies new rash or lesions. No new ulcers or wounds are related.. Neuro: Denies headache or visual change. Denies any new onset weakness or difficulty with ambulation. Denies falls or seizures. Psychiatric Patient relates that she's had situational depression since the of her Endocrine:Chronic fatigue weight is in stable Past Medical History Past Medical History: Cancer, Heart Failure, COPD, Diabetes Mellitus, Fibromyalgia, Hyperlipidemia, Hypertension, Renal Disease, Rheumatoid Arthritis (RA), Seizure Disorder, Supraventricular Tachycardia (SVT) Additional Past Medical History / Comment(s): IDDM type II, neuropathy bilateral legs/feet and hands, past cellulitis leg, R breast cancer with surgery and c hemo, seizures with last time "years" ago, UTI, CKD, UTIs, chronic anemiaDM Type II. Recent dental extraction (all teeth from lower jaw 11/2017) History of Any Multi-Drug Resistant Organisms: VRE Year Discovered:: 05/11/18 MDRO Source:: VRE URINE Past Surgical History: Adenoidectomy, Appendectomy, Breast Surgery, Cholecystectomy, Hysterectomy, Orthopedic Surgery, Tonsillectomy, Tubal Ligation Additional Past Surgical History / Comment(s): masectomy right, ganglion cyst r ight hand, total hysterectomy (hx of tubal pregnancies), lower teeth extracted. Past Anesthesia/Blood Transfusion Reactions: No Reported Reaction Past Psychological History: Anxiety, Depression Additional Psychological History / Comment(s): Pt currently is at [facility] for rehab. She needs assist with ADLS except feeds self. She states up until just lately she was getting up with a walker some.Her daughter lives with her. No experience. Did not work outside of the home. No international travel. . There is a pet dog in the home. No alcohol use Smoking Status: Never smoker Past Alcohol Use History: None Reported Additional Past Alcohol Use History / Comment(s): Pt started smoking in 1971 and qut in December 2017. Per patient she smoked 1-2 cigarettes a day after meals. Past Drug Use History: None Reported - Past Family History Father Family Medical History: Cancer, CVA/TIA Additional Family Medical History / Comment(s): 2000 from lung cancer Mother Family Medical History: Cancer, Dementia Additional Family Medical History / Comment(s): 2014 at age 86. Oral & Breast cancer Brother(s) Family Medical History: Asthma, Diabetes Mellitus, Fibromyalgia, Osteoarthritis (OA) Additional Family Medical History / Comment(s): Obesity. Joint replacements Medications and Allergies Home Medications and Allergies Comment(s): Current Medications Acetaminophen (Tylenol Tab) 650 mg PO Q6HR PRN PRN Reason: Mild Pain or Fever > 100.5 Hydrocodone Bitart/Acetaminophen (Ramer 7.5-325) 1 each PO Q6HR PRN PRN Reason: Pain Last Admin: 06/08/18 04:56 Dose: 1 each Documented by: Anastrozole (Arimidex) 1 mg PO DAILY@0900 [facility] Last Admin: 06/08/18 07:35 Dose: 1 mg Documented by: Aspirin (Aspirin) 81 mg PO DAILY@0900 [facility] Last Admin: 06/08/18 07:35 Dose: 81 mg Documented by: Budesonide/Formoterol Fumarate (Symbicort 80-4.5 Mcg Inhaler) 2 puff INHALATION RT-BID [facility] Last Admin: 06/08/18 20:04 Dose: 2 puff Documented by: Cyanocobalamin (Vitamin B-12) 500 mcg PO DAILY@1200 ROS Cyclobenzaprine HCl (Flexeril) 10 mg PO TID@0600,1400,2200 [facility] Last Admin: 06/08/18 20:36 Dose: 10 mg Documented by: Darbepoetin Gurwinder (Aranesp) [address] [facility] Last Admin: 06/06/18 21:45 Dose: 40 mcg Documented by: Dicyclomine HCl (Bentyl) 10 mg PO Q8H PRN PRN Reason: GI Upset Diphenhydramine HCl (Benadryl) 25 mg PO TID PRN PRN Reason: Itching Last Admin: 06/08/18 08:26 Dose: 25 mg Documented by: Docusate Sodium (Colace) 100 mg PO DAILY@2100 [facility] Last Admin: 06/08/18 20:35 Dose: 100 mg Documented by: Famotidine (Pepcid) [address] [facility] Last Admin: 06/08/18 13:55 Dose: 20 mg Documented by: Ferrous Sulfate (Feosol) 325 mg PO DAILY@1700 [facility] Last Admin: 06/08/18 16:49 Dose: 325 mg Documented by: Furosemide (Lasix) [address] [facility] Last Admin: 06/08/18 07:34 Dose: 40 mg Documented by: Heparin Sodium (Porcine) (Heparin) 5,[address] [facility] Last Admin: 06/08/18 20:35 Dose: 5,000 unit Documented by: Sodium Chloride (Saline 0.9%) 1,000 mls @ 50 mls/hr IV .Q20H [facility] Last Admin: 06/08/18 20:35 Dose: 20 mls/hr Documented by: Linezolid 600 mg/ IV Solution 300 mls @ 150 mls/hr IVPB Q12HR [facility]; Protocol Last Admin: 06/08/18 20:36 Dose: 150 mls/hr Documented by: Insulin Aspart (Novolog) [address] [facility]; Protocol Last Admin: 06/08/18 21:02 Dose: 4 unit Documented by: Magnesium Hydroxide (Milk Of Magnesia) 2,400 mg PO HS PRN PRN Reason: Constipation Metoprolol Tartrate (Lopressor) [address] [facility] Last Admin: 06/08/18 20:36 Dose: 25 mg Documented by: Metoprolol Tartrate (Lopressor) [address] [facility] Last Admin: 06/08/18 07:34 Dose: 50 mg Documented by: Morphine Sulfate (Morphine Sulfate (Inj)) 4 mg IV Q4HR PRN PRN Reason: Severe Pain Last Admin: 06/08/18 16:04 Dose: 4 mg Documented by: Multi-Ingred Cream/Lotion/Oil/Oint (Triad Cream) [address] [facility] Last Admin: 06/08/18 20:35 Dose: 1 applic Documented by: Naloxone HCl (Narcan) 0.2 mg IV Q2M PRN PRN Reason: Opioid Reversal Nitroglycerin (Nitrostat) 0.4 mg SUBLINGUAL Q5M PRN PRN Reason: Chest Pain Nystatin (Mycostatin Cream) [address] [facility] Last Admin: 06/08/18 20:37 Dose: 1 applic Documented by: Ondansetron HCl (Zofran) 4 mg IVP Q8HR PRN PRN Reason: Nausea And Vomiting Pantoprazole Sodium (Protonix) 40 mg PO AC-BRKFST [facility] Last Admin: 06/08/18 07:34 Dose: 40 mg Documented by: Petrolatum (Aquaphor) [address] [facility] Last Admin: 06/08/18 20:37 Dose: 1 applic Documented by: Polyethylene Glycol (Miralax) [address] [facility] Last Admin: 06/08/18 07:40 Dose: Not Given Documented by: Senna (Senokot) 8.6 mg PO BID@0900,2100 [facility] Last Admin: 06/08/18 20:36 Dose: 8.6 mg Documented by: Spironolactone (Aldactone) [address] [facility] Last Admin: 06/08/18 20:36 Dose: 25 mg Documented by: Home Medications Medication Instructions Recorded Confirmed Type Fluticasone/Salmeterol [Advair 1 puff INHALATION RT-DAILY@0900 06/24/14 06/06/18 History 100-50 Diskus] Anastrozole [Arimidex] 1 mg PO DAILY@0900 09/30/14 06/06/18 History Cyclobenzaprine [Flexeril] 10 mg PO TID@0600,1400,2200 01/08/18 06/06/18 History Acetaminophen Tab [Tylenol] 650 mg PO Q4H PRN 02/20/18 06/06/18 History Aspirin 81 mg PO DAILY@0900 02/20/18 06/06/18 History Docusate [Colace] 100 mg PO DAILY@2100 02/20/18 06/06/18 History Ferrous Sulfate [Iron (65 MG 325 mg PO DAILY@1700 02/20/18 06/06/18 History Elemental)] Metoprolol Tartrate [Lopressor] 25 mg PO HS tab 02/28/18 06/06/18 Rx Metoprolol Tartrate [Lopressor] 50 mg PO DAILY tab 02/28/18 06/06/18 Rx Nitroglycerin Sl Tabs [Nitrostat] 0.4 mg SUBLINGUAL Q5M PRN tab 02/28/18 06/06/18 Rx Darbepoetin Gurwinder [Aranesp] 40 mcg SQ WE 04/02/18 06/06/18 History Dicyclomine [Bentyl] 10 mg PO Q8H PRN 04/02/18 06/06/18 History Hydrophilic Cream [Triad Cream] 1 applic TOPICAL Q12H 04/02/18 06/06/18 History Sennosides [Senna] 8.6 mg PO BID@0900,2100 04/02/18 06/06/18 History Spironolactone [Aldactone] 25 mg PO BID #60 tab 04/06/18 06/06/18 Rx Polyethylene Glycol 3350 [Miralax] 17 gram PO DAILY 05/07/18 06/06/18 History Furosemide [Lasix] 40 mg PO DAILY tab 05/11/18 06/06/18 Rx Hydrocodone/Acetaminophen [Ramer 1 tab PO Q6HR PRN 06/06/18 06/06/18 History 7.5-325] Insulin Glargine,Hum.rec.anlog 5 unit SQ HS 06/06/18 06/06/18 History [Basaglar Kwikpen U-100] Insulin Lispro [humaLOG Kwikpen] See Protocol SQ AC-TID 06/06/18 06/06/18 History Magnesium Hydroxide [Milk of 2,400 mg PO HS PRN 06/06/18 06/06/18 History Magnesia] Petrolatum, White [Aquaphor] 1 applic TOPICAL BID 06/06/18 06/06/18 History Allergies Allergy/AdvReac Type Severity Reaction Status Date / Time cephalexin [From Keflex] Allergy Unknown Verified 06/06/18 11:06 Penicillins Allergy Rash/Hives Verified 06/06/18 11:06 codeine AdvReac Nausea & Verified 06/06/18 11:06 Vomiting phenobarbital AdvReac Unknown Verified 06/06/18 11:06 phenytoin sodium AdvReac Unknown Verified 06/06/18 11:06 [From Dilantin] phenytoin sodium extended AdvReac Unknown Verified 06/06/18 11:06 [From Dilantin] primidone [From Mysoline] AdvReac Unknown Verified 06/06/18 11:06 Physical Exam Vitals: Vital Signs Temp Pulse Pulse Resp BP Pulse Ox 06/08/18 16:49 16 06/08/18 11:35 97.3 F L 60 16 92/54 99 06/08/18 08:35 16 06/08/18 05:03 97.9 F 77 18 116/77 96 Intake and Output 06/08/18 06/08/18 06/08/18 06:59 14:59 22:59 Other: Voiding Method Toilet # Voids 2 3 # Bowel Movements 1 68-year-old woman relates that she is feeling slightly better since admission nausea is improved. HEENT: Anicteric conjunctiva are pink and moist nasal mucosa grossly intact without significant lesions, there is no thrush. Neck: The neck is supple without significant lymphadenopathy or thyromegaly. Lungs: Good bilateral air entry without significant crackles or wheezing. There is no significant bronchial sounds. There is no egophony or dullness. Heart: Regular rate and rhythm with an audible S1-S2, no S3 no S4. There is no significant murmur click or rub, PMI was nondisplaced. Abdomen: Positive bowel sounds soft and nontender without palpable masses or organomegaly. There was no guarding or rebound. Extremities: The upper extremities have excellent pulses they are symmetric, no significant petechiae or telangiectasia. No splinter hemorrhages were noted. The lower extremities are free from significant edema. The peripheral pulses were 2+ and symmetric. Neuro: Awake alert oriented to person place and time. There are no acute new gr oss focal sensory motor deficits. Results CBC & Chem 7: 06/08/18 10:45 06/07/18 12:35 Labs: Abnormal Lab Results - Last 24 Hours (Table) 06/08/18 06/08/18 06/08/18 Range/Units 07:03 10:45 11:17 RBC 3.05 L (3.80-5.40) m/uL Hgb 10.1 L (11.4-16.0) gm/dL Hct 29.7 L (34.0-46.0) % RDW 16.1 H (11.5-15.5) % Plt Count 83 L (150-450) k/uL POC Glucose (mg/dL) 117 H 123 H (75-99) mg/dL 06/08/18 06/08/18 Range/Units 17:09 20:58 RBC (3.80-5.40) m/uL Hgb (11.4-16.0) gm/dL Hct (34.0-46.0) % RDW (11.5-15.5) % Plt Count (150-450) k/uL POC Glucose (mg/dL) 131 H 220 H (75-99) mg/dL Microbiology - Last 24 Hours (Table) 06/06/18 14:00 Urine Culture - Preliminary Urine,Voided Group D Enterococcus Laboratory Results WBC 3.9 k/uL (3.8-10.6) 06/08/18 10:45 RBC 3.05 m/uL (3.80-5.40) L 06/08/18 10:45 Hgb 10.1 gm/dL (11.4-16.0) L 06/08/18 10:45 Hct 29.7 % (34.0-46.0) L 06/08/18 10:45 MCV 97.6 fL (80.0-100.0) 06/08/18 10:45 MCH 33.1 pg (25.0-35.0) 06/08/18 10:45 MCHC 33.9 g/dL (31.0-37.0) 06/08/18 10:45 RDW 16.1 % (11.5-15.5) H 06/08/18 10:45 Plt Count 83 k/uL (150-450) L 06/08/18 10:45 Neutrophils % 62 % 06/06/18 12:14 Neutrophils % (Manual) 51 % 06/07/18 07:55 Lymphocytes % 19 % 06/06/18 12:14 Lymphocytes % (Manual) 35 % 06/07/18 07:55 Monocytes % 7 % 06/06/18 12:14 Monocytes % (Manual) 9 % 06/07/18 07:55 Eosinophils % 7 % 06/06/18 12:14 Eosinophils % (Manual) 5 % 06/07/18 07:55 Basophils % 0 % 06/06/18 12:14 Neutrophils # 2.1 k/uL (1.3-7.7) 06/06/18 12:14 Neutrophils # (Manual) 1.63 k/uL (1.3-7.7) 06/07/18 07:55 Lymphocytes # 0.6 k/uL (1.0-4.8) L 06/06/18 12:14 Lymphocytes # (Manual) 1.12 k/uL (1.0-4.8) 06/07/18 07:55 Monocytes # 0.2 k/uL (0-1.0) 06/06/18 12:14 Monocytes # (Manual) 0.29 k/uL (0-1.0) 06/07/18 07:55 Eosinophils # 0.2 k/uL (0-0.7) 06/06/18 12:14 Eosinophils # (Manual) 0.16 k/uL (0-0.7) 06/07/18 07:55 Basophils # 0.0 k/uL (0-0.2) 06/06/18 12:14 Nucleated RBCs 0 /100 WBC (0-0) 06/07/18 07:55 Manual Slide Review Performed 06/07/18 07:55 Poikilocytosis Slight 06/08/18 10:45 Anisocytosis Slight 06/08/18 10:45 Macrocytosis Slight 06/08/18 10:45 PT 10.9 sec (9.0-12.0) 06/06/18 12:14 INR 1.0 (<1.2) 06/06/18 12:14 APTT 21.2 sec (22.0-30.0) L 06/06/18 12:14 Sodium 140 mmol/L (137-145) 06/07/18 12:35 Potassium 5.2 mmol/L (3.5-5.1) H 06/07/18 12:35 Chloride 111 mmol/L (98-107) H 06/07/18 12:35 Carbon Dioxide 23 mmol/L (22-30) 06/07/18 12:35 Anion Gap 6 mmol/L 06/07/18 12:35 BUN 20 mg/dL (7-17) H 06/07/18 12:35 Creatinine 1.12 mg/dL (0.52-1.04) H 06/07/18 12:35 Est GFR (CKD-EPI)AfAm 59 (>60 ml/min/1.73 sqM) 06/07/18 12:35 Est GFR (CKD-EPI)NonAf 51 (>60 ml/min/1.73 sqM) 06/07/18 12:35 Glucose 117 mg/dL (74-99) H 06/07/18 12:35 POC Glucose (mg/dL) 220 mg/dL (75-99) H 06/08/18 20:58 POC Glu [employer] Dye, Fany 06/08/18 20:58 Calcium 9.2 mg/dL (8.4-10.2) 06/07/18 12:35 Iron 68 ug/dL (50-170) 06/08/18 10:45 TIBC 275 ug/dL (228-460) 06/08/18 10:45 Iron Saturation 24.73 (12.00-45.00) 06/08/18 10:45 Ferritin 244.8 ng/mL (10.0-291.0) 06/08/18 10:45 Total Bilirubin 2.0 mg/dL (0.2-1.3) H 06/07/18 08:15 AST 41 U/L (14-36) H 06/07/18 08:15 ALT 43 U/L (9-52) 06/07/18 08:15 Alkaline Phosphatase 82 U/L (38-126) 06/07/18 08:15 Total Protein 7.1 g/dL (6.3-8.2) 06/07/18 08:15 Total Protein (PEP) 6.2 g/dL (6.2-8.2) 06/08/18 10:45 Albumin 3.5 g/dL (3.5-5.0) 06/07/18 08:15 Amylase 31 U/L (30-110) 06/06/18 12:14 Lipase 61 U/L (23-300) 06/06/18 12:14 Vitamin B12 433.0 pg/mL (200.0-944.0) 06/08/18 10:45 Urine Color Yellow 06/06/18 14:00 Urine Appearance Clear (Clear) 06/06/18 14:00 Urine pH 7.5 (5.0-8.0) 06/06/18 14:00 Ur Specific [place] 1.013 (1.001-1.035) 06/06/18 14:00 Urine Protein Negative (Negative) 06/06/18 14:00 Urine Glucose (UA) Negative (Negative) 06/06/18 14:00 Urine Ketones Negative (Negative) 06/06/18 14:00 Urine Blood Negative (Negative) 06/06/18 14:00 Urine Nitrite Negative (Negative) 06/06/18 14:00 Urine Bilirubin Negative (Negative) 06/06/18 14:00 Urine Urobilinogen 2.0 mg/dL (<2.0) 06/06/18 14:00 Ur Leukocyte Esterase Moderate (Negative) H 06/06/18 14:00 Urine RBC 1 /hpf (0-5) 06/06/18 14:00 Urine WBC 19 /hpf (0-5) H 06/06/18 14:00 Ur Squamous Epith Cells 1 /hpf (0-4) 06/06/18 14:00 Urine Bacteria Rare /hpf (None) H 06/06/18 14:00 Urine Yeast (Budding) Few /hpf (None) H 06/06/18 14:00 Rheumatoid Factor 8 IU/mL (0-15) 06/08/18 10:45 MARÍA Screen NEGATIVE (NEGATIVE) 06/08/18 10:45 Microbiology 06/06/18 14:00 Urine,Voided Urine Culture - Preliminary Group D Enterococcus Assessment and Plan (1) Pancytopenia Current Visit: Yes Status: Acute Priority: High Code(s): D61.818 - OTHER PANCYTOPENIA SNOMED Code(s): 356451632 (2) UTI (urinary tract infection) Current Visit: Yes Status: Acute Priority: High Code(s): N39.0 - URINARY TRACT INFECTION, SITE NOT SPECIFIED SNOMED Code(s): 77478407 (3) VRE (vancomycin-resistant Enterococci) infection Narrative/Plan: 68-year-old woman who has a history of breast carcinoma status post course of chemotherapy Arimidex presents to Hospital feeling poorly for several days with nausea and emesis 3 increasing weakness. Patient relates that she's had both urinary tract infections or less. Of time. Most recent urine culture showed evidence of VRE. Current urine culture shows enterococcus awaiting the final identification. For antimicrobial therapy will utilize Zyvox for the VRE infection. We'll start with IV and then transitioned to oral when she is more stable. It appears that the underlying urine infection is responsible for the current change of her status. However she does have evidence of pancytopenia and has been evaluated by hematology oncology and further workup is in process. It is related that recent blood work showed evidence of normal white cells, hemoglobin and platelets. Current Visit: Yes Status: Acute Code(s): A49.1 - STREPTOCOCCAL INFECTION, UNSPECIFIED SITE; Z16.21 - RESISTANCE TO VANCOMYCIN SNOMED Code(s): 684116615
[2018-06-09] MEDS: MORPHINE SULFATE 4 MG/ML SYRINGE IV PRN ×2 (03:13→20:54)
[2018-06-09] MEDS: CYCLOBENZAPRINE 10 MG TAB PO SCH ×3 (05:25→20:52)
[2018-06-09 07:17] LABS: Glucose,Whole Blood 109 mg/dL (75-99)
[2018-06-09] MEDS: INSULIN ASPART (NovoLOG) 100 UNIT/ML VIAL SQ SCH ×4 (07:18→20:53)
[2018-06-09] MEDS: ANASTROZOLE 1 MG TAB PO SCH (07:38)
[2018-06-09] MEDS: SYMBICORT 80-4.5 MCG INHALER INHALATION SCH ×2 (08:20→18:42)
[2018-06-09] MEDS: FUROSEMIDE 40 MG TAB PO SCH (08:42)
[2018-06-09] MEDS: SENNOSIDES 8.6 MG TAB PO SCH ×2 (08:42→20:52)
[2018-06-09] MEDS: ASPIRIN 81 MG PO SCH ×2 (08:42→12:42)
[2018-06-09] MEDS: HYDROcodone/APAP 7.5-325MG 1 EACH TAB PO PRN (08:42)
[2018-06-09] MEDS: CYANOCOBALAMIN 500 MCG TAB PO SCH (08:43)
[2018-06-09] MEDS: LINEZOLID 600 MG in DEXTROSE/WATER 1 300ML.BAG IVPB SCH ×2 (08:43→20:53)
[2018-06-09] MEDS: SPIRONOLACTONE 25 MG TAB PO SCH ×2 (08:43→20:52)
[2018-06-09] MEDS: METOPROLOL TARTRATE 50 MG TAB PO SCH (08:43)
[2018-06-09] MEDS: HEPARIN SODIUM,PORCINE 5,000 UNIT/ML 1 ML VIAL SQ SCH ×2 (08:43→20:52)
[2018-06-09] MEDS: FAMOTIDINE 20 MG TAB PO SCH (08:43)
[2018-06-09] MEDS: PANTOPRAZOLE 40 MG TABLET PO SCH (08:43)
[2018-06-09] MEDS: diphenhydrAMINE 25 MG CAP PO PRN (08:44)
[2018-06-09] MEDS: POLYETHYLENE GLYCOL 3350 17 GM POWD.PACK PO SCH (08:45)
[2018-06-09] MEDS: HYDROPHILIC CREAM 180 GM TUBE TOPICAL SCH ×2 (08:45→20:53)
[2018-06-09] MEDS: NYSTATIN 100,000UNIT/GM CREAM 30 GM TUBE TOPICAL SCH ×2 (08:45→20:54)
[2018-06-09] MEDS: PETROLATUM, WHITE OINT 50 GM TUBE TOPICAL SCH ×2 (08:46→20:54)
[2018-06-09 08:48] LABS: Albumin 3.1 g/dL (3.5-5.0); Bilirubin, Delta 0.4 mg/dL (0.0-0.2); Bilirubin,Unconjugated 0.8 mg/dL (0.0-1.1); Calcium 9.1 mg/dL (8.4-10.2); Potassium 4.9 mmol/L (3.5-5.1); Total Bilirubin 1.2 mg/dL (0.2-1.3); Total Protein 6.1 g/dL (6.3-8.2)
[2018-06-09 09:02] LABS: HCT 27.3 % (34.0-46.0); HGB 9.3 gm/dL (11.4-16.0); MCH 31.8 pg (25.0-35.0); MCV 93.5 fL (80.0-100.0); Mean Platelet Volume 8.4; RBC 2.92 m/uL (3.80-5.40); RDW 15.9 % (11.5-15.5); WBC 3.9 k/uL (3.8-10.6)
[2018-06-09 09:03] LABS: Platelet Count 65 k/uL (150-450)
[2018-06-09 11:57] LABS: Glucose,Whole Blood 156 mg/dL (75-99)
[2018-06-09] MEDS: FERROUS SULFATE 325 MG TAB PO SCH (16:16)
[2018-06-09 16:59] LABS: Glucose,Whole Blood 119 mg/dL (75-99)
--- NOTE | 2018-06-09 17:42 | P.PN ---
Subjective This is a pleasant 68 years old female with past medical history of congestive heart failure, COPD, diabetes mellitus, fibromyalgia, hyperlipidemia, hypertension, rheumatoid arthritis, seizure disorder, supraventricular tachycardia, diabetic neuropathy, Celexa the leg, right breast cancer status post surgery with chemotherapy who presents because of abdominal pain. Her pain in the lower abdomen associated with some suprapubic tenderness. was found to have urinary tract infection Vital signs stable and patient is afebrile, blood pressure on the low normal side. Labs reviewed showing creatinine 1.12, potassium 5.6, sodium 140, sugar is controlled. CBC showing pancytopenia with WBC 3.2, hemoglobin 10.1, platelets 75. Urine is suspicious for infection with moderate leukocyte esterase. Urine culture showing a group D enterococcus. 06/09/2018 Patient today feels still lethargic. Still have some urinary symptoms. She is hemodynamically stable. Afebrile. Labs reviewed showing stable CBC with mild thrombocytopenia at 65. However her creatinine was trending up today from 1.12 to 1.5. Patient is on gentle hydration at normal saline 50 mL/h and on Lasix 40 mg daily. We going to hold her Lasix and monitor her creatinine level if no improvement by tomorrow we'll consider nephrological evaluation. B12 was borderline and she was started on oral replacement therapy. She is on linezolid for her enterococcus UTI. Objective - Vital Signs Vital signs: Vital Signs Temp 97.9 F 06/09/18 12:32 Pulse 68 06/09/18 12:32 Resp 18 06/09/18 15:19 BP 102/60 06/09/18 12:32 Pulse Ox 98 06/09/18 12:32 Intake & Output 06/08/18 06/09/18 06/09/18 18:59 06:59 18:59 Other: Voiding Method Toilet # Voids 3 1 1 # Bowel Movements 1 - Exam GENERAL: The patient is alert and oriented x3, not in any acute distress. Well developed, well nourished. HEENT: Pupils are round and equally reacting to light. EOMI. No scleral icterus. No conjunctival pallor. Normocephalic, atraumatic. No pharyngeal erythema. No thyromegaly. CARDIOVASCULAR: S1 and S2 present. No murmurs, rubs, or gallops. PULMONARY: Chest is clear to auscultation, no wheezing or crackles. -ABDOMEN: Soft, mild suprapubic tenderness, nondistended, normoactive bowel sounds. No palpable organomegaly. MUSCULOSKELETAL: No joint swelling or deformity. EXTREMITIES: No cyanosis, clubbing, or pedal edema. NEUROLOGICAL: Gross neurological examination did not reveal any focal deficits. SKIN: No rashes. - Labs CBC & Chem 7: 06/09/18 08:04 06/09/18 08:04 Labs: Abnormal Lab Results - Last 24 Hours (Table) 06/08/18 06/08/18 06/09/18 Range/Units 10:45 20:58 06:49 RBC (3.80-5.40) m/uL Hgb (11.4-16.0) gm/dL Hct (34.0-46.0) % RDW (11.5-15.5) % Plt Count (150-450) k/uL Sodium (137-145) mmol/L BUN (7-17) mg/dL Creatinine (0.52-1.04) mg/dL POC Glucose (mg/dL) 220 H 109 H (75-99) mg/dL Delta Bilirubin (0.0-0.2) mg/dL Total Protein (6.3-8.2) g/dL Albumin (3.5-5.0) g/dL Free Garten LC, Quant 15.80 H (0.33-1.94) mg/dL Free Lambda LC, Quant 6.48 H (0.57-2.63) mg/dL 06/09/18 06/09/18 06/09/18 Range/Units 08:04 08:04 11:48 RBC 2.92 L (3.80-5.40) m/uL Hgb 9.3 L (11.4-16.0) gm/dL Hct 27.3 L (34.0-46.0) % RDW 15.9 H (11.5-15.5) % Plt Count 65 L (150-450) k/uL Sodium 136 L (137-145) mmol/L BUN 25 H (7-17) mg/dL Creatinine 1.54 H (0.52-1.04) mg/dL POC Glucose (mg/dL) 156 H (75-99) mg/dL Delta Bilirubin 0.4 H (0.0-0.2) mg/dL Total Protein 6.1 L (6.3-8.2) g/dL Albumin 3.1 L (3.5-5.0) g/dL Free Garten LC, Quant (0.33-1.94) mg/dL Free Lambda LC, Quant (0.57-2.63) mg/dL 06/09/18 Range/Units 16:52 RBC (3.80-5.40) m/uL Hgb (11.4-16.0) gm/dL Hct (34.0-46.0) % RDW (11.5-15.5) % Plt Count (150-450) k/uL Sodium (137-145) mmol/L BUN (7-17) mg/dL Creatinine (0.52-1.04) mg/dL POC Glucose (mg/dL) 119 H (75-99) mg/dL Delta Bilirubin (0.0-0.2) mg/dL Total Protein (6.3-8.2) g/dL Albumin (3.5-5.0) g/dL Free Garten LC, Quant (0.33-1.94) mg/dL Free Lambda LC, Quant (0.57-2.63) mg/dL Microbiology - Last 24 Hours (Table) 06/06/18 14:00 Urine Culture - Final Urine,Voided Enterococcus faecalis Assessment and Plan Assessment: UTI with enterococcus Pancytopenia Acute kidney injury Chronic kidney disease, stage III History of SVT Seizure disorder controlled for years History of Right breast cancer, status post chemotherapy and surgery Diabetes type 2, insulin-dependent. Fibromyalgia Hyperlipidemia Hypertension Rheumatoid arthritis History of COPD, not an active issue History of congestive heart failure, not in active issue. Plan: This is a pleasant 68 years old female who presents because of UTI with enterococcus. Continue with antibiotics. infectious diseases note is appreciated. Continue with gentle hydration number cardiology input is appreciated for pancytopenia.hold Lasix and increasing creatinine. Labs and medication were reviewed.. Continue same treatment. Continue with symptomatic treatment. Resume home medication. Monitor lytes and vitals. DVT and GI prophylaxis. Further recommendations of the clinical course of the patient DVT prophylaxis: Subcutaneous heparin GI Prophylaxis: Pepcid PT/OT: Pending Prognosis is guarded
[2018-06-09 20:38] LABS: Glucose,Whole Blood 231 mg/dL (75-99)
[2018-06-09] MEDS: METOPROLOL TARTRATE 25 MG TAB PO SCH (20:52)
[2018-06-09] MEDS: SODIUM CHLORIDE 0.9% 1,000 ML IV SCH (20:52)
[2018-06-09] MEDS: DOCUSATE 100 MG CAP PO SCH (20:52)
[2018-06-10] MEDS: CYCLOBENZAPRINE 10 MG TAB PO SCH ×3 (05:22→21:37)
[2018-06-10 07:10] LABS: Glucose,Whole Blood 116 mg/dL (75-99)
[2018-06-10] MEDS: INSULIN ASPART (NovoLOG) 100 UNIT/ML VIAL SQ SCH ×4 (07:18→21:14)
[2018-06-10] MEDS: SYMBICORT 80-4.5 MCG INHALER INHALATION SCH ×2 (07:21→20:42)
[2018-06-10] MEDS: ANASTROZOLE 1 MG TAB PO SCH (08:05)
--- NOTE | 2018-06-10 08:21 | P.PN ---
Subjective This is a pleasant 68 years old female with past medical history of congestive heart failure, COPD, diabetes mellitus, fibromyalgia, hyperlipidemia, hypertension, rheumatoid arthritis, seizure disorder, supraventricular tachycardia, diabetic neuropathy, Celexa the leg, right breast cancer status post surgery with chemotherapy who presents because of abdominal pain. Her pain in the lower abdomen associated with some suprapubic tenderness. was found to have urinary tract infection Vital signs stable and patient is afebrile, blood pressure on the low normal side. Labs reviewed showing creatinine 1.12, potassium 5.6, sodium 140, sugar is controlled. CBC showing pancytopenia with WBC 3.2, hemoglobin 10.1, platelets 75. Urine is suspicious for infection with moderate leukocyte esterase. Urine culture showing a group D enterococcus. 06/09/2018 Patient today feels still lethargic. Still have some urinary symptoms. She is hemodynamically stable. Afebrile. Labs reviewed showing stable CBC with mild thrombocytopenia at 65. However her creatinine was trending up today from 1.12 to 1.5. Patient is on gentle hydration at normal saline 50 mL/h and on Lasix 40 mg daily. We going to hold her Lasix and monitor her creatinine level if no improvement by tomorrow we'll consider nephrological evaluation. B12 was borderline and she was started on oral replacement therapy. She is on linezolid for her enterococcus UTI. 06/10/2018 Patient is fully awake and oriented, she is more awake today. She still complaining of from urinary symptoms however her suprapubic tenderness is improving. Her conjunctivitis is improving this morning after starting in the ophthalmic antibiotics. Her creatinine is 1.6 today and potassium 5.2. We'll ask for nephrology consult. Vitals are stable. Dr. Delcid and his team will resume the care of the patient tomorrow Objective - Vital Signs Vital signs: Vital Signs Temp 98.0 F 06/10/18 05:22 Pulse 67 06/10/18 05:22 Resp 18 06/10/18 05:22 BP 116/64 06/10/18 05:22 Pulse Ox 97 06/10/18 05:22 Intake & Output 06/09/18 06/10/18 06/10/18 18:59 06:59 18:59 Other: # Voids 2 2 - Exam GENERAL: The patient is alert and oriented x3, not in any acute distress. Well developed, well nourished. HEENT: Pupils are round and equally reacting to light. EOMI. No scleral icterus. No conjunctival pallor. Normocephalic, atraumatic. No pharyngeal erythema. No thyromegaly. CARDIOVASCULAR: S1 and S2 present. No murmurs, rubs, or gallops. PULMONARY: Chest is clear to auscultation, no wheezing or crackles. -ABDOMEN: Soft, mild suprapubic tenderness, nondistended, normoactive bowel sounds. No palpable organomegaly. MUSCULOSKELETAL: No joint swelling or deformity. EXTREMITIES: No cyanosis, clubbing, or pedal edema. NEUROLOGICAL: Gross neurological examination did not reveal any focal deficits. SKIN: No rashes. - Labs CBC & Chem 7: 06/09/18 08:04 06/10/18 07:20 Labs: Abnormal Lab Results - Last 24 Hours (Table) 06/08/18 06/09/18 06/09/18 Range/Units 10:45 08:04 08:04 RBC 2.92 L (3.80-5.40) m/uL Hgb 9.3 L (11.4-16.0) gm/dL Hct 27.3 L (34.0-46.0) % RDW 15.9 H (11.5-15.5) % Plt Count 65 L (150-450) k/uL Sodium 136 L (137-145) mmol/L Potassium (3.5-5.1) mmol/L BUN 25 H (7-17) mg/dL Creatinine 1.54 H (0.52-1.04) mg/dL POC Glucose (mg/dL) (75-99) mg/dL Delta Bilirubin 0.4 H (0.0-0.2) mg/dL Total Protein 6.1 L (6.3-8.2) g/dL Albumin 3.1 L (3.5-5.0) g/dL Free [place] LC, Quant 15.80 H (0.33-1.94) mg/dL Free Lambda LC, Quant 6.48 H (0.57-2.63) mg/dL 06/09/18 06/09/18 06/09/18 Range/Units 11:48 16:52 20:37 RBC (3.80-5.40) m/uL Hgb (11.4-16.0) gm/dL Hct (34.0-46.0) % RDW (11.5-15.5) % Plt Count (150-450) k/uL Sodium (137-145) mmol/L Potassium (3.5-5.1) mmol/L BUN (7-17) mg/dL Creatinine (0.52-1.04) mg/dL POC Glucose (mg/dL) 156 H 119 H 231 H (75-99) mg/dL Delta Bilirubin (0.0-0.2) mg/dL Total Protein (6.3-8.2) g/dL Albumin (3.5-5.0) g/dL Free [place] LC, Quant (0.33-1.94) mg/dL Free Lambda LC, Quant (0.57-2.63) mg/dL 06/10/18 06/10/18 Range/Units 06:53 07:20 RBC (3.80-5.40) m/uL Hgb (11.4-16.0) gm/dL Hct (34.0-46.0) % RDW (11.5-15.5) % Plt Count (150-450) k/uL Sodium (137-145) mmol/L Potassium 5.2 H (3.5-5.1) mmol/L BUN 25 H (7-17) mg/dL Creatinine 1.60 H (0.52-1.04) mg/dL POC Glucose (mg/dL) 116 H (75-99) mg/dL Delta Bilirubin (0.0-0.2) mg/dL Total Protein (6.3-8.2) g/dL Albumin (3.5-5.0) g/dL Free [place] LC, Quant (0.33-1.94) mg/dL Free Lambda LC, Quant (0.57-2.63) mg/dL Assessment and Plan Assessment: UTI with enterococcus Pancytopenia Acute kidney injury Chronic kidney disease, stage III History of SVT Seizure disorder controlled for years History of Right breast cancer, status post chemotherapy and surgery Diabetes type 2, insulin-dependent. Fibromyalgia Hyperlipidemia Hypertension Rheumatoid arthritis History of COPD, not an active issue History of congestive heart failure, not in active issue. Plan: This is a pleasant 68 years old female who presents because of UTI with enterococcus. Continue with antibiotics. infectious diseases note is appreciated. Continue with gentle hydration number cardiology input is appr eciated for pancytopenia.hold Lasix and increasing creatinine. Call nephrology consult Labs and medication were reviewed.. Continue same treatment. Continue with symptomatic treatment. Resume home medication. Monitor lytes and vitals. DVT and GI prophylaxis. Further recommendations of the clinical course of the patient DVT prophylaxis: Subcutaneous heparin GI Prophylaxis: Pepcid PT/OT: Pending Prognosis is guarded
[2018-06-10 08:30] LABS: Potassium 5.2 mmol/L (3.5-5.1)
[2018-06-10] MEDS: CYANOCOBALAMIN 500 MCG TAB PO SCH (08:58)
[2018-06-10] MEDS: METOPROLOL TARTRATE 50 MG TAB PO SCH (08:58)
[2018-06-10] MEDS: FAMOTIDINE 20 MG TAB PO SCH (08:58)
[2018-06-10] MEDS: diphenhydrAMINE 25 MG CAP PO PRN (08:59)
[2018-06-10] MEDS: ASPIRIN 81 MG PO SCH (08:59)
[2018-06-10] MEDS: HYDROcodone/APAP 7.5-325MG 1 EACH TAB PO PRN (08:59)
[2018-06-10] MEDS: SPIRONOLACTONE 25 MG TAB PO SCH (08:59)
[2018-06-10] MEDS: LINEZOLID 600 MG in DEXTROSE/WATER 1 300ML.BAG IVPB SCH ×2 (09:00→21:16)
[2018-06-10] MEDS: SENNOSIDES 8.6 MG TAB PO SCH ×2 (09:00→21:14)
[2018-06-10] MEDS: HEPARIN SODIUM,PORCINE 5,000 UNIT/ML 1 ML VIAL SQ SCH ×2 (09:00→21:14)
[2018-06-10] MEDS: PANTOPRAZOLE 40 MG TABLET PO SCH (09:00)
[2018-06-10] MEDS: ERYTHROMYCIN 5 MG/GM OPHTH OINT 3.5 GM TUBE BOTH EYES SCH ×3 (09:01→17:23)
[2018-06-10] MEDS: HYDROPHILIC CREAM 180 GM TUBE TOPICAL SCH ×2 (09:01→21:20)
[2018-06-10] MEDS: PETROLATUM, WHITE OINT 50 GM TUBE TOPICAL SCH ×2 (09:01→21:21)
[2018-06-10] MEDS: NYSTATIN 100,000UNIT/GM CREAM 30 GM TUBE TOPICAL SCH ×2 (09:01→21:21)
[2018-06-10] MEDS: POLYETHYLENE GLYCOL 3350 17 GM POWD.PACK PO SCH (09:03)
[2018-06-10 09:24] LABS: Anisocytosis Slight; HCT 28.4 % (34.0-46.0); HGB 9.5 gm/dL (11.4-16.0); MCH 31.7 pg (25.0-35.0); MCHC 33.7 g/dL (31.0-37.0); MCV 94.3 fL (80.0-100.0); Mean Platelet Volume 9.1; Poikilocytosis Slight; RBC 3.01 m/uL (3.80-5.40); RDW 16.4 % (11.5-15.5); WBC 3.9 k/uL (3.8-10.6)
[2018-06-10 09:30] LABS: Platelet Count 83 k/uL (150-450)
--- NOTE | 2018-06-10 11:01 | P.NPCON ---
History of Present Illness - Reason for Consult Consult date: 06/10/18 acute renal failure - Chief Complaint Abdominal discomfort - History of Present Illness 68-year-old lady coming to the hospital with the above complaints. Nephrology was consulted for worsening renal function and hyperkalemia. She has a baseline creatinine of 1.0 MG per DL. Creatinine creeping to 1.6 today and a potassium of 5.2. She had recurrent episodes of acute kidney injuries in the past with a peak creatinine in 2. She was diagnosed with enterococcus UTI currently on linezolid. She was also on Aldactone as well. Blood pressures were low normal. No nausea vomiting diarrhea. No NSAID use or recent contrast studies. She has history of breast cancer currently on Arimidex. She complains of urinary leak but no difficulty in emptying the bladder. Review of Systems Constitutional: Reports as per HPI Past Medical History Past Medical History: Cancer, Heart Failure, COPD, Diabetes Mellitus, Fibr omyalgia, Hyperlipidemia, Hypertension, Renal Disease, Rheumatoid Arthritis (RA), Seizure Disorder, Supraventricular Tachycardia (SVT) Additional Past Medical History / Comment(s): IDDM type II, neuropathy bilateral legs/feet and hands, past cellulitis leg, R breast cancer with surgery and chemo, seizures with last time "years" ago, UTI, CKD, UTIs, chronic anemiaDM Type II. Recent dental extraction (all teeth from lower jaw 11/2017) History of Any Multi-Drug Resistant Organisms: VRE Date of last positivie culture/infection: 05/11/18 MDRO Source:: VRE URINE Past Surgical History: Adenoidectomy, Appendectomy, Breast Surgery, Cholecystectomy, Hysterectomy, Orthopedic Surgery, Tonsillectomy, Tubal Ligation Additional Past Surgical History / Comment(s): masectomy right, ganglion cyst right hand, total hysterectomy (hx of tubal pregnancies), lower teeth extracted. Past Anesthesia/Blood Transfusion Reactions: No Reported Reaction Past Psychological History: Anxiety, Depression Additional Psychological History / Comment(s): Pt currently is at [facility] for rehab. She needs assist with ADLS except feeds self. She states up until just lately she was getting up with a walker some.Her daughter lives with her. No experience. Did not work outside of the home. No international travel. . There is a pet dog in the home. No alcohol use Smoking Status: Never smoker Past Alcohol Use History: None Reported Additional Past Alcohol Use History / Comment(s): Pt started smoking in 1971 and qut in December 2017. Per patient she smoked 1-2 cigarettes a day after meals. Past Drug Use History: None Reported - Past Family History Father Family Medical History: Cancer, CVA/TIA Additional Family Medical History / Comment(s): 2000 from lung cancer Mother Family Medical History: Cancer, Dementia Additional Family Medical History / Comment(s): 2014 at age 86. Oral & Breast cancer Brother(s) Family Medical History: Asthma, Diabetes Mellitus, Fibromyalgia, Osteoarthritis (OA) Additional Family Medical History / Comment(s): Obesity. Joint replacements Medications and Allergies Home Medications Medication Instructions Recorded Confirmed Type Fluticasone/Salmeterol [Advair 1 puff INHALATION RT-DAILY@0900 06/24/14 06/06/18 History 100-50 Diskus] Anastrozole [Arimidex] 1 mg PO DAILY@0900 09/30/14 06/06/18 History Cyclobenzaprine [Flexeril] 10 mg PO TID@0600,1400,2200 01/08/18 06/06/18 History Acetaminophen Tab [Tylenol] 650 mg PO Q4H PRN 02/20/18 06/06/18 History Aspirin 81 mg PO DAILY@0900 02/20/18 06/06/18 History Docusate [Colace] 100 mg PO DAILY@2100 02/20/18 06/06/18 History Ferrous Sulfate [Iron (65 MG 325 mg PO DAILY@1700 02/20/18 06/06/18 History Elemental)] Metoprolol Tartrate [Lopressor] 25 mg PO HS tab 02/28/18 06/06/18 Rx Metoprolol Tartrate [Lopressor] 50 mg PO DAILY tab 02/28/18 06/06/18 Rx Nitroglycerin Sl Tabs [Nitrostat] 0.4 mg SUBLINGUAL Q5M PRN tab 02/28/18 06/06/18 Rx Darbepoetin Gurwinder [Aranesp] 40 mcg SQ WE 04/02/18 06/06/18 History Dicyclomine [Bentyl] 10 mg PO Q8H PRN 04/02/18 06/06/18 History Hydrophilic Cream [Triad Cream] 1 applic TOPICAL Q12H 04/02/18 06/06/18 History Sennosides [Senna] 8.6 mg PO BID@0900,2100 04/02/18 06/06/18 History Spironolactone [Aldactone] 25 mg PO BID #60 tab 04/06/18 06/06/18 Rx Polyethylene Glycol 3350 [Miralax] 17 gram PO DAILY 05/07/18 06/06/18 History Furosemide [Lasix] 40 mg PO DAILY tab 05/11/18 06/06/18 Rx Hydrocodone/Acetaminophen [[place] 1 tab PO Q6HR PRN 06/06/18 06/06/18 History 7.5-325] Insulin Glargine,Hum.rec.anlog 5 unit SQ HS 06/06/18 06/06/18 History [Basaglar Kwikpen U-100] Insulin Lispro [humaLOG Kwikpen] See Protocol SQ AC-TID 06/06/18 06/06/18 History Magnesium Hydroxide [Milk of 2,400 mg PO HS PRN 06/06/18 06/06/18 History Magnesia] Petrolatum, White [Aquaphor] 1 applic TOPICAL BID 06/06/18 06/06/18 History Allergies Allergy/AdvReac Type Severity Reaction Status Date / Time cephalexin [From Keflex] Allergy Unknown Verified 06/06/18 11:06 Penicillins Allergy Rash/Hives Verified 06/06/18 11:06 codeine AdvReac Nausea & Verified 06/06/18 11:06 Vomiting phenobarbital AdvReac Unknown Verified 06/06/18 11:06 phenytoin sodium AdvReac Unknown Verified 06/06/18 11:06 [From Dilantin] phenytoin sodium extended AdvReac Unknown Verified 06/06/18 11:06 [From Dilantin] primidone [From Mysoline] AdvReac Unknown Verified 06/06/18 11:06 Physical Exam Vitals: Vital Signs Temp Pulse Resp BP Pulse Ox 06/10/18 05:22 98.0 F 67 18 116/64 97 06/09/18 20:50 75 18 109/62 99 06/09/18 20:04 97.5 F L 73 16 85/54 99 06/09/18 15:19 18 06/09/18 12:32 97.9 F 68 20 102/60 98 Intake and Output 06/09/18 06/10/18 06/10/18 22:59 06:59 14:59 Other: # Voids 1 2 1 No acute distress S1-S2 heard Lungs clear Trace edema Results - Lab Results Most recent lab results Calcium 9.0 mg/dL (8.4-10.2) 06/10/18 07:20 06/10/18 07:20 06/10/18 07:20 Assessment and Plan Assessment: #1 acute kidney injury secondary to hemodynamics with low blood pressures. Rule out obstructive uropathy with recent urinary tract infection and diabetes. #2 recurrent acute kidney injuries in the past but baseline creatinine around 1.0 MG per DL. #3 enterococcus UTI #4 hypotension #5 hyperkalemia suspect type IV RTA from diabetes and Aldactone use #6 breast cancer currently in remission #7 metabolic acidosis non-gap Plan: #1 continue with IV fluids at 75 ML's an hour. #2 stop Aldactone. #3 bladder scan to rule out urinary retention if persistent need straight caths. #4 avoid nephrotoxic agents and hypotensive episodes. #5 check urine analysis again and also renal ultrasound to rule out obstruction. #6 AM labs. Given very much for this consultation we'll follow along while she is in the hospital.
[2018-06-10 12:08] LABS: Glucose,Whole Blood 146 mg/dL (75-99)
--- NOTE | 2018-06-10 12:35 | US ---
EXAMINATION TYPE: US kidneys/renal and bladder DATE OF EXAM: 06/10/2018 COMPARISON: CT 02/23/2018, US 12/17/2017 CLINICAL HISTORY: henri. Diabetic EXAM MEASUREMENTS: Right Kidney: 11.3 x 4.8 x 4.1 cm Left Kidney: 11.9 x 3.7 x 3.9 cm Right Kidney: No hydronephrosis or masses seen. Left Kidney: No hydronephrosis or masses seen Bladder: wnl Bilateral Jets seen: No There is no evidence for hydronephrosis at this point in time. No nephrolithiasis is seen. No marisol s are identified. The urinary bladder is anechoic. IMPRESSION: NO EVIDENCE OF HYDRONEPHROSIS AT THIS TIME.
[2018-06-10] MEDS: SODIUM CHLORIDE 0.9% 1,000 ML IV SCH (13:00)
[2018-06-10] MEDS: MORPHINE SULFATE 4 MG/ML SYRINGE IV PRN ×2 (13:04→17:20)
[2018-06-10 17:14] LABS: Glucose,Whole Blood 144 mg/dL (75-99)
[2018-06-10] MEDS: FERROUS SULFATE 325 MG TAB PO SCH (17:21)
[2018-06-10 20:25] LABS: Glucose,Whole Blood 136 mg/dL (75-99)
[2018-06-10] MEDS: DOCUSATE 100 MG CAP PO SCH (21:14)
[2018-06-10] MEDS: METOPROLOL TARTRATE 25 MG TAB PO SCH (21:15)
[2018-06-11] MEDS: ERYTHROMYCIN 5 MG/GM OPHTH OINT 3.5 GM TUBE BOTH EYES SCH ×2 (00:39→08:10)
[2018-06-11 05:00] VITALS: TEMP 97.5
[2018-06-11] MEDS: SODIUM CHLORIDE 0.9% 1,000 ML IV SCH ×2 (06:01→12:33)
[2018-06-11] MEDS: CYCLOBENZAPRINE 10 MG TAB PO SCH ×2 (06:02→13:39)
[2018-06-11 06:59] LABS: Glucose,Whole Blood 122 mg/dL (75-99)
[2018-06-11] MEDS: INSULIN ASPART (NovoLOG) 100 UNIT/ML VIAL SQ SCH ×2 (07:49→12:33)
[2018-06-11] MEDS: ANASTROZOLE 1 MG TAB PO SCH (08:02)
[2018-06-11] MEDS: ASPIRIN 81 MG PO SCH (08:02)
[2018-06-11] MEDS: PANTOPRAZOLE 40 MG TABLET PO SCH (08:02)
[2018-06-11] MEDS: HEPARIN SODIUM,PORCINE 5,000 UNIT/ML 1 ML VIAL SQ SCH (08:02)
[2018-06-11] MEDS: SENNOSIDES 8.6 MG TAB PO SCH (08:02)
[2018-06-11] MEDS: FAMOTIDINE 20 MG TAB PO SCH (08:02)
[2018-06-11] MEDS: POLYETHYLENE GLYCOL 3350 17 GM POWD.PACK PO SCH (08:02)
[2018-06-11] MEDS: LINEZOLID 600 MG in DEXTROSE/WATER 1 300ML.BAG IVPB SCH (08:03)
[2018-06-11 08:05] LABS: Appearance,Urine Clear (Clear); Bilirubin,Urine Negative (Negative); Blood,Urine Negative (Negative); Color,Urine Light Yellow; Glucose,Urine (UA) Negative (Negative); Ketones,Urine Negative (Negative); Leukocyte Esterase,Urine Negative (Negative); Nitrite,Urine Negative (Negative); PH, Urine 5.5 (5.0-8.0); Protein,Urine Negative (Negative); Specific Gravity,Urine 1.006 (1.001-1.035); Urobilinogen,Urine <2.0 mg/dL (<2.0)
[2018-06-11] MEDS: PETROLATUM, WHITE OINT 50 GM TUBE TOPICAL SCH (08:10)
[2018-06-11] MEDS: METOPROLOL TARTRATE 50 MG TAB PO SCH (08:10)
[2018-06-11] MEDS: HYDROPHILIC CREAM 180 GM TUBE TOPICAL SCH (08:10)
[2018-06-11] MEDS: NYSTATIN 100,000UNIT/GM CREAM 30 GM TUBE TOPICAL SCH (08:10)
[2018-06-11] MEDS: HYDROcodone/APAP 7.5-325MG 1 EACH TAB PO PRN (08:13)
--- NOTE | 2018-06-11 08:25 | P.PN ---
Subjective Patient is seen in follow-up for acute kidney injury. Baseline creatinine is near 1 and was up to 1.6 as of yesterday. She is currently maintained on normal saline at 75 mL an hour. Oral intake is fair. No vomiting or diarrhea. Admits to good urine output. Vital signs are stable. General: The patient appeared well nourished and normally developed. HEENT: Head exam is unremarkable. Neck is without jugular venous distension. LUNGS: Lungs are clear to auscultation and percussion. Breath sounds decreased. HEART: Rate and Rhythm are regular. First and second heart sounds normal. No murmurs, rubs or gallops. ABDOMEN: Abdominal exam reveals normal bowel sounds. Non-tender and non- distended. No evidence of peritonitis. EXTREMITITES: No clubbing, cyanosis, or edema. Objective - Vital Signs Vital signs: Vital Signs Temp 97.5 F L 06/11/18 04:59 Pulse 66 06/11/18 04:59 Resp 18 06/11/18 04:59 BP 96/65 06/11/18 04:59 Pulse Ox 100 06/11/18 04:59 Intake & Output 06/10/18 06/11/18 06/11/18 18:59 06:59 18:59 Output Total 900 Balance -900 Output: Urine 900 Other: Voiding Method Toilet # Voids 1 3 1 # Bowel Movements 0 - Labs CBC & Chem 7: 06/10/18 07:20 06/10/18 07:20 Labs: Abnormal Lab Results - Last 24 Hours (Table) 06/10/18 06/10/18 06/10/18 Range/Units 07:20 07:20 11:54 RBC 3.01 L (3.80-5.40) m/uL Hgb 9.5 L (11.4-16.0) gm/dL Hct 28.4 L (34.0-46.0) % RDW 16.4 H (11.5-15.5) % Plt Count 83 L (150-450) k/uL Potassium 5.2 H (3.5-5.1) mmol/L POC Glucose (mg/dL) 146 H (75-99) mg/dL 06/10/18 06/10/18 06/11/18 Range/Units 16:59 20:23 06:45 RBC (3.80-5.40) m/uL Hgb (11.4-16.0) gm/dL Hct (34.0-46.0) % RDW (11.5-15.5) % Plt Count (150-450) k/uL Potassium (3.5-5.1) mmol/L POC Glucose (mg/dL) 144 H 136 H 122 H (75-99) mg/dL Assessment and Plan Plan: Assessment: 1. Acute kidney injury secondary to ATN secondary to hypotension and UTI. Creatinine 1.6 as of yesterday. Baseline creatinine near 1. UA is benign. No hydronephrosis noted on renal ultrasound. 2. UTI with urine culture psitive for enterococcus maintain on antibiotics. 3. Hypotension. 4. Hyperkalemia secondary to acute kidney injury and Aldactone. 5. History of breast cancer. 6. Mild metabolic acidosis secondary to acute kidney injury and IV fluids. Plan: Maintain normal saline at 75 mL an hour. Decrease Lopressor to 25 mg twice daily. Check a.m. cortisol level. Morning labs pending.
[2018-06-11 08:32] LABS: Anisocytosis Slight; HCT 25.4 % (34.0-46.0); HGB 8.9 gm/dL (11.4-16.0); MCH 32.8 pg (25.0-35.0); MCHC 35.1 g/dL (31.0-37.0); MCV 93.4 fL (80.0-100.0); Mean Platelet Volume 8.2; Poikilocytosis Slight; RBC 2.72 m/uL (3.80-5.40); RDW 16.4 % (11.5-15.5); WBC 3.2 k/uL (3.8-10.6)
[2018-06-11 08:33] LABS: Platelet Count 85 k/uL (150-450)
[2018-06-11 09:16] LABS: Potassium 4.9 mmol/L (3.5-5.1)
[2018-06-11] MEDS: SYMBICORT 80-4.5 MCG INHALER INHALATION SCH (11:06)
[2018-06-11 11:55] LABS: Glucose,Whole Blood 137 mg/dL (75-99)
--- NOTE | 2018-06-11 12:25 | P.PN ---
Subjective Progress Note Date: 06/11/18 Principal diagnosis: Pancytopenia, history of breast cancer-on Arimidex In follow-up today patient is tired, no fever, nausea, difficulty in breathing, dysuria, hematuria, diarrhea or constipation. No hot flashes or new/unusual musculoskeletal aches Objective - Vital Signs Vital signs: Vital Signs Temp 97.5 F L 06/11/18 04:59 Pulse 66 06/11/18 04:59 Resp 18 06/11/18 04:59 BP 96/65 06/11/18 04:59 Pulse Ox 100 06/11/18 04:59 Intake & Output 06/10/18 06/11/18 06/11/18 18:59 06:59 18:59 Output Total 900 Balance -900 Output: Urine 900 Post Void Residual 0 Other: Voiding Method Toilet # Voids 1 3 1 # Bowel Movements 0 - Constitutional General appearance: Present: cooperative, no acute distress, obese - EENT Eyes: Present: anicteric sclerae, EOMI ENT: Present: normal oropharynx - Respiratory Respiratory: bilateral: CTA - Cardiovascular Rhythm: regular Heart sounds: normal: S1, S2 Abnormal Heart Sounds: Present: systolic murmur - Peripheral edema leg Peripheral Edema: bilateral: None - Gastrointestinal General gastrointestinal: Present: normal bowel sounds, soft. Absent: absent bowel sounds, decreased bowel sounds, distended, hepatomegaly, hyperactive bowel sounds, organomegaly, rigid, scaphoid, splenomegaly, tenderness, umbilical hernia, ventral hernia - Integumentary Integumentary: Present: normal turgor - Neurologic Neurologic: Present: CNII-XII intact - Musculoskeletal Musculoskeletal: Present: generalized weakness - Psychiatric Psychiatric: Present: A&O x's 3, appropriate affect, intact judgment & insight - Labs CBC & Chem 7: 06/11/18 07:05 06/11/18 08:31 Labs: Abnormal Lab Results - Last 24 Hours (Table) 06/08/18 06/10/18 06/10/18 Range/Units 10:45 16:59 20:23 WBC (3.8-10.6) k/uL RBC (3.80-5.40) m/uL Hgb (11.4-16.0) gm/dL Hct (34.0-46.0) % RDW (11.5-15.5) % Plt Count (150-450) k/uL Sodium (137-145) mmol/L Carbon Dioxide (22-30) mmol/L BUN (7-17) mg/dL Creatinine (0.52-1.04) mg/dL Glucose (74-99) mg/dL POC Glucose (mg/dL) 144 H 136 H (75-99) mg/dL RBC Folate 881 H (280 - 791) ng/mL 06/11/18 06/11/18 06/11/18 Range/Units 06:45 07:05 08:31 WBC 3.2 L (3.8-10.6) k/uL RBC 2.72 L (3.80-5.40) m/uL Hgb 8.9 L (11.4-16.0) gm/dL Hct 25.4 L (34.0-46.0) % RDW 16.4 H (11.5-15.5) % Plt Count 85 L (150-450) k/uL Sodium 135 L (137-145) mmol/L Carbon Dioxide 21 L (22-30) mmol/L BUN 22 H (7-17) mg/dL Creatinine 1.35 H (0.52-1.04) mg/dL Glucose 139 H (74-99) mg/dL POC Glucose (mg/dL) 122 H (75-99) mg/dL RBC Folate (280 - 791) ng/mL 06/11/18 Range/Units 11:43 WBC (3.8-10.6) k/uL RBC (3.80-5.40) m/uL Hgb (11.4-16.0) gm/dL Hct (34.0-46.0) % RDW (11.5-15.5) % Plt Count (150-450) k/uL Sodium (137-145) mmol/L Carbon Dioxide (22-30) mmol/L BUN (7-17) mg/dL Creatinine (0.52-1.04) mg/dL Glucose (74-99) mg/dL POC Glucose (mg/dL) 137 H (75-99) mg/dL RBC Folate (280 - 791) ng/mL Assessment and Plan (1) Pancytopenia Narrative/Plan: CBC stable, no acute intervention needed. Workup so far did not revealing any iron or B vitamin deficiency, no supplementation required at this time. Pending further labs resulting Current Visit: Yes Status: Acute Priority: High Code(s): D61.818 - OTHER PANCYTOPENIA SNOMED Code(s): 810368401 (2) UTI (urinary tract infection) Narrative/Plan: Recurrent UTI. Infectious Disease consultation reviewed. Treatment ordered Current Visit: Yes Status: Acute Priority: High Code(s): N39.0 - URINARY TRACT INFECTION, SITE NOT SPECIFIED SNOMED Code(s): 10191906 (3) History of breast cancer Narrative/Plan: Patient did recently have mammogram on the left breast, breast exam performed 06/07 with no suspicious findings. Continue Arimidex. Follow up with Dr. Mann Current Visit: No Status: Chronic Priority: Low Code(s): Z85.3 - PERSONAL HISTORY OF MALIGNANT NEOPLASM OF BREAST SNOMED Code(s): 782981700 Plan: Nephrology consulted for acute kidney injury
[2018-06-11] MEDS: CYANOCOBALAMIN 500 MCG TAB PO SCH (12:33)
[2018-06-11 12:42] VITALS: BP 128/67; PULSE 84; RESP 16
--- NOTE | 2018-06-11 12:53 | P.DS ---
Providers Date of admission: 06/08/18 08:44 Expected date of discharge: 06/11/18 Attending physician: Handy Delcid Consults: 06/07/18 11:48 Consult Physician Urgent Consulting Provider: Jp Canales Consult Reason/Comments: pancytopenia Do you want consulting provider notified?: Yes 06/07/18 17:26 Consult Physician Routine Consulting Provider: Mateo Villanueva Consult Reason/Comments: reoccurring UTI Do you want consulting provider notified?: Yes 06/08/18 11:57 Consult Physician Urgent Consulting Provider: Mateo Villanueva Consult Reason/Comments: enterococcu Do you want consulting provider notified?: Yes 06/10/18 08:20 Consult Physician Urgent Consulting Provider: John Finney Consult Reason/Comments: BERNIE Do you want consulting provider notified?: Yes Primary care physician: Tom Han Hospital Course: 68-year-old female was transferred from extended care unit with complaints of increased lethargy abdominal pain. Patient was found to have urinary tract i nfection patient had consult with and infectious disease Dr. Villanueva nephrology for acute renal injury. Patient also evaluated by oncology for pancytopenia Assessment Weakness Chronic leg cellulitis Frances 2 abdominal apron Pelvic pain Acute injury secondary urinary tract infection Anemia chronic disease History of SVT 6 seizure disorder last seizure years ago Right breast cancer Diabetes type 2 Fibromyalgia Hyperlipidemia Hypertension Rheumatoid arthritis Plan Oral Zyvox Transferred to [facility] Patient Condition at Discharge: Stable Plan - Discharge Summary New Discharge Prescriptions: New Linezolid [Zyvox] 600 mg PO Q12H #7 tab Pantoprazole [Protonix] 40 mg PO AC-BRKFST tablet. Erythromycin Ophth Oint [Romycin Ophth Oint] 1 applic BOTH EYES Q8HR applic Hydrophilic Cream [Triad Cream] 1 applic TOPICAL Q12H applic Cyanocobalamin [Vitamin B-12] 500 mcg PO DAILY@1200 tab Continue Fluticasone/Salmeterol [Advair 100-50 Diskus] 1 puff INHALATION RT-DAILY@0900 Anastrozole [Arimidex] 1 mg PO DAILY@0900 Cyclobenzaprine [Flexeril] 10 mg PO TID@0600,1400,2200 Acetaminophen Tab [Tylenol] 650 mg PO Q4H PRN PRN Reason: Fever And/ Or Pain Ferrous Sulfate [Iron (65 MG Elemental)] 325 mg PO DAILY@1700 Docusate [Colace] 100 mg PO DAILY@2100 Aspirin 81 mg PO DAILY@0900 Metoprolol Tartrate [Lopressor] 25 mg PO HS tab Nitroglycerin Sl Tabs [Nitrostat] 0.4 mg SUBLINGUAL Q5M PRN tab PRN Reason: Chest Pain Sennosides [Senna] 8.6 mg PO BID@0900,2100 Dicyclomine [Bentyl] 10 mg PO Q8H PRN PRN Reason: Gi Upset Darbepoetin Gurwinder [Aranesp] 40 mcg SQ WE Polyethylene Glycol 3350 [Miralax] 17 gram PO DAILY Hydrocodone/Acetaminophen [Kirk 7.5-325] 1 tab PO Q6HR PRN PRN Reason: Pain Insulin Glargine,Hum.rec.anlog [Basaglar Kwikpen U-100] 5 unit SQ HS Insulin Lispro [humaLOG Kwikpen] See Protocol SQ AC-TID Magnesium Hydroxide [Milk of Magnesia] 2,400 mg PO HS PRN PRN Reason: Constipation Petrolatum, White [Aquaphor] 1 applic TOPICAL BID Discontinued Metoprolol Tartrate [Lopressor] 50 mg PO DAILY tab Hydrophilic Cream [Triad Cream] 1 applic TOPICAL Q12H Spironolactone [Aldactone] 25 mg PO BID #60 tab Furosemide [Lasix] 40 mg PO DAILY tab Discharge Medication List Fluticasone/Salmeterol [Advair 100-50 Diskus] 1 puff INHALATION RT-DAILY@0900 06/24/14 [History] Anastrozole [Arimidex] 1 mg PO DAILY@0900 09/30/14 [History] Cyclobenzaprine [Flexeril] 10 mg PO TID@0600,1400,2200 01/08/18 [History] Acetaminophen Tab [Tylenol] 650 mg PO Q4H PRN 02/20/18 [History] Aspirin 81 mg PO DAILY@0900 02/20/18 [History] Docusate [Colace] 100 mg PO DAILY@2100 02/20/18 [History] Ferrous Sulfate [Iron (65 MG Elemental)] 325 mg PO DAILY@1700 02/20/18 [History] Metoprolol Tartrate [Lopressor] 25 mg PO HS tab 02/28/18 [Rx] Nitroglycerin Sl Tabs [Nitrostat] 0.4 mg SUBLINGUAL Q5M PRN tab 02/28/18 [Rx] Darbepoetin Gurwinder [Aranesp] 40 mcg SQ WE 04/02/18 [History] Dicyclomine [Bentyl] 10 mg PO Q8H PRN 04/02/18 [History] Sennosides [Senna] 8.6 mg PO BID@0900,2100 04/02/18 [History] Polyethylene Glycol 3350 [Miralax] 17 gram PO DAILY 05/07/18 [History] Hydrocodone/Acetaminophen [Kirk 7.5-325] 1 tab PO Q6HR PRN 06/06/18 [History] Insulin Glargine,Hum.rec.anlog [Basaglar Kwikpen U-100] 5 unit SQ HS 06/06/18 [History] Insulin Lispro [humaLOG Kwikpen] See Protocol SQ AC-TID 06/06/18 [History] Magnesium Hydroxide [Milk of Magnesia] 2,400 mg PO HS PRN 06/06/18 [History] Petrolatum, White [Aquaphor] 1 applic TOPICAL BID 06/06/18 [History] Cyanocobalamin [Vitamin B-12] 500 mcg PO DAILY@1200 tab 06/11/18 [Rx] Erythromycin Ophth Oint [Romycin Ophth Oint] 1 applic BOTH EYES Q8HR applic 06/11/18 [Rx] Hydrophilic Cream [Triad Cream] 1 applic TOPICAL Q12H applic 06/11/18 [Rx] Linezolid [Zyvox] 600 mg PO Q12H #7 tab 06/11/18 [Rx] Pantoprazole [Protonix] 40 mg PO AC-BRKFST tablet. 06/11/18 [Rx] Follow up Appointment(s)/Referral(s): Tom Han MD [Primary Care Provider] - 1-2 days Discharge Disposition: TRANSFER TO SNF/F
[2018-06-11 13:39] LABS: Albumin 3.09 g/dL (3.80-4.90)
[2018-06-11] MEDS ORDERED: LINEZOLID 600 MG TAB PO SCH (21:00)
--- NOTE | 2018-06-11 21:38 | P.PN ---
Subjective Progress Note Date: 06/11/18 68-year-old woman who has a history of breast carcinoma from several years ago where she underwent mastectomy, lymph node dissection, postoperative chemotherapy and Arimidex for 5 years. She relates generally she's been feeling poorly having a urinary tract infection almost every month as of late. Follow with her primary physician receiving some antibiotic therapy. She relates that the day of admission she started to feel poorly with fever and chills as well as emesis on 3 occasions. She became progressively weak and constantly presented to the emergency center. At that time there is evidence of a low-grade fever chills generalized malaise and urinary tract infection and she was admitted to [facility]. With concerns to a drug-resistant urinary tract infection the infectious diseases consultation was requested. June 11 2018 patient has had improvement of status. Appears responding well to antibiotic therapy with Zyvox without new acute complaints Objective - Vital Signs Vital signs: Vital Signs Temp 97.5 F L 06/11/18 12:30 Pulse 84 06/11/18 12:30 Resp 16 06/11/18 12:30 BP 128/67 06/11/18 12:30 Pulse Ox 98 06/11/18 12:30 Intake & Output 06/11/18 06/11/18 06/12/18 06:59 18:59 06:59 Output Total 900 Balance -900 Output: Urine 900 Post Void Residual 0 Other: Voiding Method Toilet # Voids 3 1 # Bowel Movements 0 - Exam 68-year-old woman relates that she is feeling slightly better since admission nausea is improved. HEENT: Anicteric conjunctiva are pink and moist nasal mucosa grossly intact without significant lesions, there is no thrush. Neck: The neck is supple without significant lymphadenopathy or thyromegaly. Lungs: Good bilateral air entry without significant crackles or wheezing. There is no significant bronchial sounds. There is no egophony or dullness. Heart: Regular rate and rhythm with an audible S1-S2, no S3 no S4. There is no significant murmur click or rub, PMI was nondisplaced. Abdomen: Positive bowel sounds soft and nontender without palpable masses or organomegaly. There was no guarding or rebound. Extremities: The upper extremities have excellent pulses they are symmetric, no significant petechiae or telangiectasia. No splinter hemorrhages were noted. The lower extremities are free from significant edema. The peripheral pulses were 2+ and symmetric. Neuro: Awake alert oriented to person place and time. There are no acute new gross focal sensory motor deficits. - Labs CBC & Chem 7: 06/11/18 07:05 06/11/18 08:31 Labs: Abnormal Lab Results - Last 24 Hours (Table) 06/08/18 06/08/18 06/11/18 Range/Units 10:45 10:45 06:45 WBC (3.8-10.6) k/uL RBC (3.80-5.40) m/uL Hgb (11.4-16.0) gm/dL Hct (34.0-46.0) % RDW (11.5-15.5) % Plt Count (150-450) k/uL Sodium (137-145) mmol/L Carbon Dioxide (22-30) mmol/L BUN (7-17) mg/dL Creatinine (0.52-1.04) mg/dL Glucose (74-99) mg/dL POC Glucose (mg/dL) 122 H (75-99) mg/dL Albumin (PEP) 3.09 L (3.80-4.90) g/dL RBC Folate 881 H (280 - 791) ng/mL 06/11/18 06/11/18 06/11/18 Range/Units 07:05 08:31 11:43 WBC 3.2 L (3.8-10.6) k/uL RBC 2.72 L (3.80-5.40) m/uL Hgb 8.9 L (11.4-16.0) gm/dL Hct 25.4 L (34.0-46.0) % RDW 16.4 H (11.5-15.5) % Plt Count 85 L (150-450) k/uL Sodium 135 L (137-145) mmol/L Carbon Dioxide 21 L (22-30) mmol/L BUN 22 H (7-17) mg/dL Creatinine 1.35 H (0.52-1.04) mg/dL Glucose 139 H (74-99) mg/dL POC Glucose (mg/dL) 137 H (75-99) mg/dL Albumin (PEP) (3.80-4.90) g/dL RBC Folate (280 - 791) ng/mL Laboratory Results WBC 3.2 k/uL (3.8-10.6) L 06/11/18 07:05 RBC 2.72 m/uL (3.80-5.40) L 06/11/18 07:05 Hgb 8.9 gm/dL (11.4-16.0) L 06/11/18 07:05 Hct 25.4 % (34.0-46.0) L 06/11/18 07:05 MCV 93.4 fL (80.0-100.0) 06/11/18 07:05 MCH 32.8 pg (25.0-35.0) 06/11/18 07:05 MCHC 35.1 g/dL (31.0-37.0) 06/11/18 07:05 RDW 16.4 % (11.5-15.5) H 06/11/18 07:05 Plt Count 85 k/uL (150-450) L 06/11/18 07:05 Neutrophils % 62 % 06/06/18 12:14 Neutrophils % (Manual) 51 % 06/07/18 07:55 Lymphocytes % 19 % 06/06/18 12:14 Lymphocytes % (Manual) 35 % 06/07/18 07:55 Monocytes % 7 % 06/06/18 12:14 Monocytes % (Manual) 9 % 06/07/18 07:55 Eosinophils % 7 % 06/06/18 12:14 Eosinophils % (Manual) 5 % 06/07/18 07:55 Basophils % 0 % 06/06/18 12:14 Neutrophils # 2.1 k/uL (1.3-7.7) 06/06/18 12:14 Neutrophils # (Manual) 1.63 k/uL (1.3-7.7) 06/07/18 07:55 Lymphocytes # 0.6 k/uL (1.0-4.8) L 06/06/18 12:14 Lymphocytes # (Manual) 1.12 k/uL (1.0-4.8) 06/07/18 07:55 Monocytes # 0.2 k/uL (0-1.0) 06/06/18 12:14 Monocytes # (Manual) 0.29 k/uL (0-1.0) 06/07/18 07:55 Eosinophils # 0.2 k/uL (0-0.7) 06/06/18 12:14 Eosinophils # (Manual) 0.16 k/uL (0-0.7) 06/07/18 07:55 Basophils # 0.0 k/uL (0-0.2) 06/06/18 12:14 Nucleated RBCs 0 /100 WBC (0-0) 06/07/18 07:55 Manual Slide Review Performed 06/07/18 07:55 Poikilocytosis Slight 06/11/18 07:05 Anisocytosis Slight 06/11/18 07:05 Macrocytosis Slight 06/08/18 10:45 PT 10.9 sec (9.0-12.0) 06/06/18 12:14 INR 1.0 (<1.2) 06/06/18 12:14 APTT 21.2 sec (22.0-30.0) L 06/06/18 12:14 Sodium 135 mmol/L (137-145) L 06/11/18 08:31 Potassium 4.9 mmol/L (3.5-5.1) 06/11/18 08:31 Chloride 106 mmol/L (98-107) 06/11/18 08:31 Carbon Dioxide 21 mmol/L (22-30) L 06/11/18 08:31 Anion Gap 8 mmol/L 06/11/18 08:31 BUN 22 mg/dL (7-17) H 06/11/18 08:31 Creatinine 1.35 mg/dL (0.52-1.04) H 06/11/18 08:31 Est GFR (CKD-EPI)AfAm 47 (>60 ml/min/1.73 sqM) 06/11/18 08:31 Est GFR (CKD-EPI)NonAf 41 (>60 ml/min/1.73 sqM) 06/11/18 08:31 Glucose 139 mg/dL (74-99) H 06/11/18 08:31 POC Glucose (mg/dL) 137 mg/dL (75-99) H 06/11/18 11:43 POC Glu Vice President Of Nursing Bri Solares 06/11/18 11:43 Calcium 9.0 mg/dL (8.4-10.2) 06/11/18 08:31 Iron 68 ug/dL (50-170) 06/08/18 10:45 TIBC 275 ug/dL (228-460) 06/08/18 10:45 Iron Saturation 24.73 (12.00-45.00) 06/08/18 10:45 Ferritin 244.8 ng/mL (10.0-291.0) 06/08/18 10:45 Total Bilirubin 1.2 mg/dL (0.2-1.3) 06/09/18 08:04 Conjugated Bilirubin 0.0 mg/dL (0.0-0.3) 06/09/18 08:04 Unconjugated Bilirubin 0.8 mg/dL (0.0-1.1) 06/09/18 08:04 Delta Bilirubin 0.4 mg/dL (0.0-0.2) H 06/09/18 08:04 AST 28 U/L (14-36) 06/09/18 08:04 ALT 24 U/L (9-52) 06/09/18 08:04 Alkaline Phosphatase 83 U/L (38-126) 06/09/18 08:04 Total Protein 6.1 g/dL (6.3-8.2) L 06/09/18 08:04 Total Protein (PEP) 6.2 g/dL (6.2-8.2) 06/08/18 10:45 Albumin 3.1 g/dL (3.5-5.0) L 06/09/18 08:04 Albumin (PEP) 3.09 g/dL (3.80-4.90) L 06/08/18 10:45 Sjfxc-2-Jnexlntdb 0.27 g/dL (0.10-0.40) 06/08/18 10:45 Ongiu-9-Dglxebmew 0.67 g/dL (0.60-1.00) 06/08/18 10:45 Beta Globulins 0.76 g/dL (0.60-1.30) 06/08/18 10:45 Gamma Globulins 1.40 g/dL (0.70-1.50) 06/08/18 10:45 PEP Interpretation SEE NOTE 06/08/18 10:45 Amylase 31 U/L (30-110) 06/06/18 12:14 Lipase 61 U/L (23-300) 06/06/18 12:14 Vitamin B12 433.0 pg/mL (200.0-944.0) 06/08/18 10:45 RBC Folate 881 ng/mL (280 - 791) H 06/08/18 10:45 Cortisol 14 ug/dL 06/11/18 08:31 Urine Color Light Yellow 06/11/18 06:00 Urine Appearance Clear (Clear) 06/11/18 06:00 Urine pH 5.5 (5.0-8.0) 06/11/18 06:00 Ur Specific [place] 1.006 (1.001-1.035) 06/11/18 06:00 Urine Protein Negative (Negative) 06/11/18 06:00 Urine Glucose (UA) Negative (Negative) 06/11/18 06:00 Urine Ketones Negative (Negative) 06/11/18 06:00 Urine Blood Negative (Negative) 06/11/18 06:00 Urine Nitrite Negative (Negative) 06/11/18 06:00 Urine Bilirubin Negative (Negative) 06/11/18 06:00 Urine Urobilinogen <2.0 mg/dL (<2.0) 06/11/18 06:00 Ur Leukocyte Esterase Negative (Negative) 06/11/18 06:00 Urine RBC 1 /hpf (0-5) 06/06/18 14:00 Urine WBC 19 /hpf (0-5) H 06/06/18 14:00 Ur Squamous Epith Cells 1 /hpf (0-4) 06/06/18 14:00 Urine Bacteria Rare /hpf (None) H 06/06/18 14:00 Urine Yeast (Budding) Few /hpf (None) H 06/06/18 14:00 Rheumatoid Factor 8 IU/mL (0-15) 06/08/18 10:45 MARÍA Screen NEGATIVE (NEGATIVE) 06/08/18 10:45 Free [place] LC, Quant 15.80 mg/dL (0.33-1.94) H 06/08/18 10:45 Free Lambda LC, Quant 6.48 mg/dL (0.57-2.63) H 06/08/18 10:45 Microbiology 06/06/18 14:00 Urine,Voided Urine Culture - Final Enterococcus faecalis Assessment and Plan (1) Pancytopenia Status: Acute Priority: High Code(s): D61.818 - OTHER PANCYTOPENIA SNOMED Code(s): 699343326 (2) UTI (urinary tract infection) Status: Acute Priority: High Code(s): N39.0 - URINARY TRACT INFECTION, SITE NOT SPECIFIED SNOMED Code(s): 71947216 (3) VRE (vancomycin-resistant Enterococci) infection Narrative/Plan: 68-year-old woman who has a history of breast carcinoma status post course of chemotherapy Arimidex presents to Hospital feeling poorly for several days with nausea and emesis 3 increasing weakness. Patient relates that she's had both urinary tract infections or less. Of time. Most recent urine culture showed evidence of VRE. Current urine culture shows enterococcus awaiting the final identification. For antimicrobial therapy will utilize Zyvox for the VRE infection. We'll start with IV and then transitioned to oral when she is more stable. It appears that the underlying urine infection is responsible for the current ch conner of her status. However she does have evidence of pancytopenia and has been evaluated by hematology oncology and further workup is in process. It is related that recent blood work showed evidence of normal white cells, hemoglobin and platelets. 06/11/2018 patient is at improvement in her status. The acute renal failure has improved and she is eating and drinking well. She will complete 7 further doses of Zyvox for the enterococcal urinary tract infection, does have history of VRE and many ALLERGIES. Has tolerated the antibiotic therapy well. Center pharmacy. Status: Acute Code(s): A49.1 - STREPTOCOCCAL INFECTION, UNSPECIFIED SITE; Z16.21 - RESISTANCE TO VANCOMYCIN SNOMED Code(s): 515268924
== END 2018-06-11 14:32 | DRG 689 ==
LOC: EC 09:21 → 3NMEDONC 15:11 → OBSVTOIN 06-08 08:44
PROVIDERS: ADMIT Family Medicine; ATTEND Family Medicine
DX: N39.0 Urinary tract infection, site not specified (principal); N17.0 Acute kidney failure with tubular necrosis; D61.818 Other pancytopenia; E87.2 Acidosis; I13.0 Hypertensive heart and chronic kidney disease with heart failure and stage 1 through stage 4 chronic kidney disease, or unspecified chronic kidney disease; Z68.41 Body mass index [BMI] 40.0-44.9, adult; L03.119 Cellulitis of unspecified part of limb; I95.9 Hypotension, unspecified; E11.22 Type 2 diabetes mellitus with diabetic chronic kidney disease; E11.40 Type 2 diabetes mellitus with diabetic neuropathy, unspecified; I50.9 Heart failure, unspecified; E87.5 Hyperkalemia; J44.9 Chronic obstructive pulmonary disease, unspecified; N18.3 Chronic kidney disease, stage 3 (moderate); B95.2 Enterococcus as the cause of diseases classified elsewhere; D63.8 Anemia in other chronic diseases classified elsewhere; E78.5 Hyperlipidemia, unspecified; F32.9 Major depressive disorder, single episode, unspecified; F41.9 Anxiety disorder, unspecified; G40.909 Epilepsy, unspecified, not intractable, without status epilepticus; H10.9 Unspecified conjunctivitis; M06.9 Rheumatoid arthritis, unspecified; M79.7 Fibromyalgia; B37.2 Candidiasis of skin and nail; R10.2 Pelvic and perineal pain; E66.01 Morbid (severe) obesity due to excess calories; Z16.21 Resistance to vancomycin; Z88.1 Allergy status to other antibiotic agents; Z88.5 Allergy status to narcotic agent; Z88.0 Allergy status to penicillin; Z88.8 Allergy status to other drugs, medicaments and biological substances; Z91.018 Allergy to other foods; Z87.440 Personal history of urinary (tract) infections; Z87.891 Personal history of nicotine dependence; Z92.21 Personal history of antineoplastic chemotherapy; Z90.710 Acquired absence of both cervix and uterus; Z85.3 Personal history of malignant neoplasm of breast; Z79.4 Long term (current) use of insulin; Z79.811 Long term (current) use of aromatase inhibitors; Z79.82 Long term (current) use of aspirin; Z79.899 Other long term (current) drug therapy; Z90.49 Acquired absence of other specified parts of digestive tract; Z98.51 Tubal ligation status; Z90.11 Acquired absence of right breast and nipple; Z80.1 Family history of malignant neoplasm of trachea, bronchus and lung; Z80.3 Family history of malignant neoplasm of breast; Z82.5 Family history of asthma and other chronic lower respiratory diseases; Z83.3 Family history of diabetes mellitus; Z82.3 Family history of stroke; Z82.0 Family history of epilepsy and other diseases of the nervous system; Z82.61 Family history of arthritis; Z82.69 Family history of other diseases of the musculoskeletal system and connective tissue; W19.XXXA Unspecified fall, initial encounter
CPT/HCPCS: 36415; 70450; 71046; 74018; 76770; 80048; 80053; 80076; 81001; 81003; 82150; 82533; 82607; 82728; 82747; 83540; 83550; 83690; 83883; 84165; 85025; 85027; 85610; 85730; 86038; 86334; 86431; 87077; 87086; 87186; 93005; 94640; 96361; 96374; 96375; 99285

== ENCOUNTER → 2018-06-13 | Outpatient (CLI) | payer MEDICARE ==
[2018-06-13 18:14] LABS: Rheumatoid Factor 6 IU/mL (0-15)
[2018-06-13 19:05] LABS: ALT 19 U/L (8-44); AST 33 U/L (13-35); C Reactive Protein <0.4 mg/dL (0.0-0.8); Carbon Dioxide 20.7 mmol/L (21.6-31.8); Chloride 106 mmol/L (96-109); Creatine Kinase 39 U/L (26-186); Glucose 105 mg/dL (70-110); Potassium 4.6 mmol/L (3.5-5.5); Sodium 136 mmol/L (135-145); Uric Acid 8.7 mg/dL (2.9-7.7)
[2018-06-14 12:26] LABS: HLA B27 POSITIVE
[2018-06-14 14:53] LABS: Angiotensin-1 Converting Enz. 45 U/L (8-52)
== END | disposition home or self-care (01) ==
LOC: LABWHC1 10:28
PROVIDERS: ATTEND Internal Medicine Rheumatology
DX: M13.0 Polyarthritis, unspecified (principal)
CPT/HCPCS: 36415; 80048; 82164; 82550; 84450; 84460; 84550; 85652; 86038; 86140; 86200; 86431; 86812

== ENCOUNTER 2018-07-02 12:53 | Emergency (ER) | payer MEDICARE, OTHER ==
[2018-07-02 13:06] VITALS: RESP 18; TEMP 98.6
[2018-07-02] MEDS ORDERED: SODIUM CHLORIDE 0.9% 500 ML 500 ML IV STA (13:27)
--- NOTE | 2018-07-02 13:30 | ED ---
General Adult HPI - General Chief complaint: Abdominal Pain Stated complaint: Abd Pain Time Seen by Provider: 07/02/18 13:00 Source: patient, EMS, RN notes reviewed Mode of arrival: EMS Limitations: physical limitation - History of Present Illness Initial comments: This is a 68-year-old female resents to the emergency department with a four-day history of dysuria. Patient states she also has suprapubic abdominal pain. Patient denies any radiation to the back. Patient denies any vomiting or diarrhea. Patient denies any fever. Patient states she has had some urinary frequency. States she's had urinary tract infections before this appears to be similar. Patient denies any upper abdominal pain. Patient denies any chest pain difficulty breathing first breath. - Related Data Home Medications Medication Instructions Recorded Confirmed Fluticasone/Salmeterol [Advair 1 puff INHALATION RT-DAILY@0906/24/14 07/02/18 100-50 Diskus] Anastrozole [Arimidex] 1 mg PO DAILY@0909/30/14 07/02/18 Acetaminophen Tab [Tylenol] 650 mg PO Q4H PRN 02/20/18 07/02/18 Aspirin 81 mg PO DAILY@0900 02/20/18 07/02/18 Docusate [Colace] 100 mg PO DAILY@209902/20/18 07/02/18 Dicyclomine [Bentyl] 10 mg PO Q8H PRN 04/02/18 07/02/18 Sennosides [Senna] 8.6 mg PO BID@0900,2100 04/02/18 07/02/18 Polyethylene Glycol 3350 [Miralax] 17 gram PO DAILY 05/07/18 07/02/18 Hydrocodone/Acetaminophen [[place] 1 tab PO Q6HR PRN 06/06/18 07/02/18 7.5-325] Insulin Glargine,Hum.rec.anlog 5 unit SQ HS 06/06/18 07/02/18 [Basaglar Kwikpen U-100] Insulin Lispro [humaLOG Kwikpen] See Protocol SQ AC-TID 06/06/18 07/02/18 Magnesium Hydroxide [Milk of 2,400 mg PO HS PRN 06/06/18 07/02/18 Magnesia] Ciprofloxacin HCl [Cipro] 250 mg PO BID 07/02/18 07/02/18 Darbepoetin Gurwinder [Aranesp] 40 mcg SQ WE 07/02/18 07/02/18 Metoprolol Tartrate [Lopressor] 50 mg PO HS 07/02/18 07/02/18 Pantoprazole [Protonix] 40 mg PO DAILY@0900 07/02/18 07/02/18 Previous Rx's Medication Instructions Recorded Metoprolol Tartrate [Lopressor] 25 mg PO HS tab 02/28/18 Nitroglycerin Sl Tabs [Nitrostat] 0.4 mg SUBLINGUAL Q5M PRN tab 02/28/18 Cyanocobalamin [Vitamin B-12] 500 mcg PO DAILY@1200 tab 06/11/18 Sulfamethox-Tmp 800-160Mg [Bactrim 1 each PO Q12HR #14 tab 07/02/18 DS 800-160 mg] Allergies Allergy/AdvReac Type Severity Reaction Status Date / Time cephalexin [From Keflex] Allergy Unknown Verified 07/02/18 13:00 Penicillins Allergy Rash/Hives Verified 07/02/18 13:00 codeine AdvReac Nausea & Verified 07/02/18 13:00 Vomiting phenobarbital AdvReac Unknown Verified 07/02/18 13:00 phenytoin sodium AdvReac Unknown Verified 07/02/18 13:00 [From Dilantin] phenytoin sodium extended AdvReac Unknown Verified 07/02/18 13:00 [From Dilantin] primidone [From Mysoline] AdvReac Unknown Verified 07/02/18 13:00 Review of Systems ROS Statement: Those systems with pertinent positive or pertinent negative responses have been documented in the HPI. ROS Other: All systems not noted in ROS Statement are negative. Past Medical History Past Medical History: Cancer, Heart Failure, COPD, Diabetes Mellitus, Fibromyalgia, Hyperlipidemia, Hypertension, Renal Disease, Rheumatoid Arthritis (RA), Seizure Disorder, Supraventricular Tachycardia (SVT) Additional Past Medical History / Comment(s): IDDM type II, neuropathy bilateral legs/feet and hands, past cellulitis leg, R breast cancer with surgery and chemo, seizures with last time "years" ago, UTI, CKD, UTIs, chronic anemiaDM Type II. Recent dental extraction (all teeth from lower jaw 11/2017) History of Any Multi-Drug Resistant Organisms: VRE Date of last positivie culture/infection: 05/11/18 MDRO Source:: VRE URINE Past Surgical History: Adenoidectomy, Appendectomy, Breast Surgery, Cholecystectomy, Hysterectomy, Orthopedic Surgery, Tonsillectomy, Tubal Ligation Additional Past Surgical History / Comment(s): masectomy right, ganglion cyst right hand, total hysterectomy (hx of tubal pregnancies), lower teeth extracted. Past Anesthesia/Blood Transfusion Reactions: No Reported Reaction Past Psychological History: Anxiety, Depression Smoking Status: Former smoker Past Alcohol Use History: None Reported Past Drug Use History: None Reported - Past Family History Father Family Medical History: Cancer, CVA/TIA Additional Family Medical History / Comment(s): 2000 from lung cancer Mother Family Medical History: Cancer, Dementia Additional Family Medical History / Comment(s): 2014 at age 86. Oral & Breast cancer Brother(s) Family Medical History: Asthma, Diabetes Mellitus, Fibromyalgia, Osteoarthritis (OA) Additional Family Medical History / Comment(s): Obesity. Joint replacements General Exam - General Exam Comments Initial Comments: GENERAL: Patient is well-developed and well-nourished. Patient is nontoxic and well- hydrated and is in mild distress. ENT: Neck is soft and supple. No significant lymphadenopathy is noted. Neck has full range of motion without eliciting any pain. EYES: The sclera were anicteric and conjunctiva were pink and moist. Extraocular move ments were intact and pupils were equal round and reactive to light. Eyelids were unremarkable. PULMONARY: Unlabored respirations. Good breath sounds bilaterally. No audible rales rhonchi or wheezing was noted. CARDIOVASCULAR: There is a regular rate and rhythm without any murmurs gallops or rubs. ABDOMEN: Patient has slight suprapubic abdominal pain. Patient also has a ventral hernia which is nontender SKIN: Skin is clear with no lesions or rashes and otherwise unremarkable. NEUROLOGIC: Patient is alert and oriented x3. Cranial nerves II through XII are grossly intact. Motor and sensory are also intact. Normal speech, volume and content. Symmetrical smile. MUSCULOSKELETAL: Normal extremities with adequate strength and full range of motion. PSYCHIATRIC: Normal psychiatric evaluation. Limitations: physical limitation Course Vital Signs 07/02/18 13:01 Temperature 98.6 F Pulse Rate 86 Respiratory 18 Rate Blood Pressure 185/90 O2 Sat by Pulse 98 Oximetry Medical Decision Making - Medical Decision Making Patient received Bactrim in the emergency department. - Lab Data Result diagrams: 07/02/18 14:58 07/02/18 14:58 Lab Results 07/02/18 07/02/18 07/02/18 Range/Units 13:32 14:58 14:58 WBC 3.8 (3.8-10.6) k/uL RBC 2.97 L (3.80-5.40) m/uL Hgb 9.6 L (11.4-16.0) gm/dL Hct 28.9 L (34.0-46.0) % MCV 97.6 (80.0-100.0) fL MCH 32.4 (25.0-35.0) pg MCHC 33.2 (31.0-37.0) g/dL RDW 16.4 H (11.5-15.5) % Plt Count 106 L (150-450) k/uL Neutrophils % 64 % Lymphocytes % 22 % Monocytes % 7 % Eosinophils % 4 % Basophils % 0 % Neutrophils # 2.4 (1.3-7.7) k/uL Lymphocytes # 0.8 L (1.0-4.8) k/uL Monocytes # 0.3 (0-1.0) k/uL Eosinophils # 0.1 (0-0.7) k/uL Basophils # 0.0 (0-0.2) k/uL Hypochromasia Slight Poikilocytosis Slight Anisocytosis Slight Macrocytosis Slight Sodium 140 (137-145) mmol/L Potassium 4.3 (3.5-5.1) mmol/L Chloride 109 H (98-107) mmol/L Carbon Dioxide 24 (22-30) mmol/L Anion Gap 7 mmol/L BUN 11 (7-17) mg/dL Creatinine 0.78 (0.52-1.04) mg/dL Est GFR (CKD-EPI)AfAm >90 (>60 ml/min/1.73 sqM) Est GFR (CKD-EPI)NonAf 80 (>60 ml/min/1.73 sqM) Glucose 123 H (74-99) mg/dL Calcium 9.5 (8.4-10.2) mg/dL Total Bilirubin 1.5 H (0.2-1.3) mg/dL AST 29 (14-36) U/L ALT 24 (9-52) U/L Alkaline Phosphatase 120 (38-126) U/L Total Protein 7.4 (6.3-8.2) g/dL Albumin 3.8 (3.5-5.0) g/dL Amylase <30 L (30-110) U/L Lipase 111 (23-300) U/L Urine Color Light Yellow Urine Appearance Turbid H (Clear) Urine pH 6.0 (5.0-8.0) Ur Specific [place] 1.014 (1.001-1.035) Urine Protein 1+ H (Negative) Urine Glucose (UA) Negative (Negative) Urine Ketones Negative (Negative) Urine Blood Moderate H (Negative) Urine Nitrite Negative (Negative) Urine Bilirubin Negative (Negative) Urine Urobilinogen <2.0 (<2.0) mg/dL Ur Leukocyte Esterase Large H (Negative) Urine RBC 6 H (0-5) /hpf Urine WBC >182 H (0-5) /hpf Urine WBC Clumps Many H (None) /hpf Urine Bacteria Few H (None) /hpf Disposition Clinical Impression: Urinary tract infection Disposition: HOME SELF-CARE Condition: Good Prescriptions: Sulfamethox-Tmp 800-160Mg [Bactrim DS 800-160 mg] 1 each PO Q12HR #14 tab Is patient prescribed a controlled substance at d/c from ED?: No Referrals: Handy Delcid MD [Primary Care Provider] - 1-2 days Time of Disposition: 15:44
[2018-07-02 13:49] LABS: Appearance,Urine Turbid (Clear); Bacteria,Urine Few /hpf; Bilirubin,Urine Negative (Negative); Blood,Urine Moderate (Negative); Color,Urine Light Yellow; Glucose,Urine (UA) Negative (Negative); Ketones,Urine Negative (Negative); Leukocyte Esterase,Urine Large (Negative); Nitrite,Urine Negative (Negative); Protein,Urine 1+ (Negative); RBC,Urine 6 /hpf (0-5); Specific Gravity,Urine 1.014 (1.001-1.035); Urobilinogen,Urine <2.0 mg/dL (<2.0); WBC,Urine >182 /hpf (0-5)
[2018-07-02 15:15] LABS: Anisocytosis Slight; Basophils % (A) 0 %; Eosinophils # (A) 0.1 k/uL (0-0.7); Eosinophils % (A) 4 %; HCT 28.9 % (34.0-46.0); HGB 9.6 gm/dL (11.4-16.0); Hypochromasia Slight; Lymphocytes # (A) 0.8 k/uL (1.0-4.8); Lymphocytes % (A) 22 %; MCH 32.4 pg (25.0-35.0); MCHC 33.2 g/dL (31.0-37.0); MCV 97.6 fL (80.0-100.0); Macrocytosis Slight; Mean Platelet Volume 7.5; Monocytes # (A) 0.3 k/uL (0-1.0); Monocytes % (A) 7 %; Neutrophils # (A) 2.4 k/uL (1.3-7.7); Neutrophils % (A) 64 %; Platelet Count 106 k/uL (150-450); Poikilocytosis Slight; RBC 2.97 m/uL (3.80-5.40); RDW 16.4 % (11.5-15.5); WBC 3.8 k/uL (3.8-10.6)
[2018-07-02 15:18] LABS: ALT 24 U/L (9-52); AST 29 U/L (14-36); Albumin 3.8 g/dL (3.5-5.0); Alkaline Phosphatase 120 U/L (38-126); Amylase <30 U/L (30-110); Anion Gap 7 mmol/L; Blood Urea Nitrogen 11 mg/dL (7-17); Calcium 9.5 mg/dL (8.4-10.2); Carbon Dioxide 24 mmol/L (22-30); Chloride 109 mmol/L (98-107); Glucose 123 mg/dL (74-99); Lipase 111 U/L (23-300); Potassium 4.3 mmol/L (3.5-5.1); Sodium 140 mmol/L (137-145); Total Bilirubin 1.5 mg/dL (0.2-1.3); Total Protein 7.4 g/dL (6.3-8.2)
--- NOTE | 2018-07-02 15:27 | XR ---
KUB HISTORY: Lower abdominal pain, burning with urination KUB submitted on 3 images and correlated to prior exam 06/06/[address] 02/23/2018 There are vascular calcifications present. Surgical clips are present in the right upper quadrant. Th ere is no evident bowel obstruction or pneumoperitoneum. Calcification in the right paraspinal locati on at approximately the L1-2 level measures approximately 5 mm is overlying the right kidney. There i s retained fecal debris superimposed over the distribution of the colon. IMPRESSION: Nonobstructive bowel gas pattern. Indeterminate right paraspinal calcification.
[2018-07-02] MEDS ORDERED: SULFAMETHOX-TMP 800-160MG 1 EACH TAB PO STA (15:42)
[2018-07-02] MEDS ORDERED: KETOROLAC 30 MG/ML 1 ML VIAL IVP STA (16:21)
[2018-07-02 16:56] VITALS: BP 196/96; PULSE 96
== END 2018-07-02 16:52 | disposition home or self-care (01) ==
LOC: EC 12:53
DX: N39.0 Urinary tract infection, site not specified (principal); K43.9 Ventral hernia without obstruction or gangrene; J44.9 Chronic obstructive pulmonary disease, unspecified; I13.0 Hypertensive heart and chronic kidney disease with heart failure and stage 1 through stage 4 chronic kidney disease, or unspecified chronic kidney disease; I50.9 Heart failure, unspecified; E11.22 Type 2 diabetes mellitus with diabetic chronic kidney disease; E11.42 Type 2 diabetes mellitus with diabetic polyneuropathy; D63.1 Anemia in chronic kidney disease; N18.9 Chronic kidney disease, unspecified; Z87.891 Personal history of nicotine dependence; Z88.0 Allergy status to penicillin; Z88.1 Allergy status to other antibiotic agents; Z88.5 Allergy status to narcotic agent; Z88.8 Allergy status to other drugs, medicaments and biological substances; Z79.4 Long term (current) use of insulin; Z79.51 Long term (current) use of inhaled steroids; Z79.82 Long term (current) use of aspirin; Z79.899 Other long term (current) drug therapy; Z85.3 Personal history of malignant neoplasm of breast; Z92.21 Personal history of antineoplastic chemotherapy; Z90.11 Acquired absence of right breast and nipple; Z90.49 Acquired absence of other specified parts of digestive tract
CPT/HCPCS: 36415; 80053; 82150; 83690; 85025; 81001; 87086; 74018; 99284; 96374; 96361 ×3; J1885

== ENCOUNTER 2018-08-16 21:32 | Emergency (ER) | payer MEDICARE, OTHER ==
[2018-08-16] MEDS ORDERED: SODIUM CHLORIDE 0.9% 500 ML 500 ML IV STA (21:44)
--- NOTE | 2018-08-16 22:22 | ED ---
General Adult HPI - General Chief complaint: Seizure Stated complaint: Seizure Time Seen by Provider: 08/16/18 21:43 Source: patient, EMS, RN notes reviewed, old records reviewed Mode of arrival: EMS Limitations: no limitations - History of Present Illness Initial comments: 68-year-old female with remote history of seizure disorder presenting for evalua tion of generalized seizure lasting 2 minutes. [facility] and generalized deconditioning. She had a 2 minute tonic-clonic seizure witnessed by staff. She was transported to the emergency department for evaluation. She has remote history of seizure disorder, she is not on any antiepileptic medication at this time. Denies head trauma. She is complaining of headache. Denies focal numbness or weakness. Denies chest pain or dyspnea. Denies abdominal pain nausea or vomiting. - Related Data Home Medications Medication Instructions Recorded Confirmed Fluticasone/Salmeterol [Advair 1 puff INHALATION RT-DAILY@89906/24/14 08/16/18 100-50 Diskus] Anastrozole [Arimidex] 1 mg PO DAILY@89909/30/14 08/16/18 Acetaminophen Tab [Tylenol] 650 mg PO Q4H PRN 02/20/18 08/16/18 Aspirin 81 mg PO DAILY@89902/20/18 08/16/18 Docusate [Colace] 100 mg PO DAILY@209902/20/18 08/16/18 Dicyclomine [Bentyl] 10 mg PO Q8H PRN 04/02/18 08/16/18 Sennosides [Senna] 8.6 mg PO BID@0900,209904/02/18 08/16/18 Hydrocodone/Acetaminophen [[place] 1 tab PO Q6HR PRN 06/06/18 08/16/18 7.5-325] Insulin Glargine,Hum.rec.anlog 5 unit SQ HS@209906/06/18 08/16/18 [Basaglar Kwikpen U-100] Insulin Lispro [humaLOG Kwikpen] See Protocol SQ AC-TID 06/06/18 08/16/18 Magnesium Hydroxide [Milk of 2,400 mg PO HS PRN 06/06/18 08/16/18 Magnesia] Darbepoetin Gurwinder [Aranesp] 40 mcg SQ WE 07/02/18 08/16/18 Pantoprazole [Protonix] 40 mg PO DAILY@0900 07/02/18 08/16/18 Artificial Tears-Hypromellose 1 drops BOTH EYES 08/16/18 08/16/18 [Artificial Tear Drops] TID@0900,1300,2100 Bisacodyl [Dulcolax] 10 mg RECTAL DAILY PRN 08/16/18 08/16/18 Cyclobenzaprine [Flexeril] 10 mg PO TID@0600,1400,2200 08/16/18 08/16/18 Ferrous Sulfate [Feosol] 325 mg PO DAILY@1700 08/16/18 08/16/18 Furosemide [Lasix] 20 mg PO DAILY@0900 08/16/18 08/16/18 Metoprolol Tartrate [Lopressor] 25 mg PO HS@2100 08/16/18 08/16/18 Metoprolol Tartrate [Lopressor] 50 mg PO DAILY@0900 08/16/18 08/16/18 Na Phos,M-B/Na Phos,Di-Ba [Fleet 133 ml RECTAL ONCE PRN 08/16/18 08/16/18 Adult] Potassium Chloride ER [K-Dur 10] 10 meq PO DAILY@0900 08/16/18 08/16/18 Previous Rx's Medication Instructions Recorded Nitroglycerin Sl Tabs [Nitrostat] 0.4 mg SUBLINGUAL Q5M PRN tab 02/28/18 Cyanocobalamin [Vitamin B-12] 500 mcg PO DAILY@1200 tab 06/11/18 Allergies Allergy/AdvReac Type Severity Reaction Status Date / Time cephalexin [From Keflex] Allergy Unknown Verified 08/16/18 22:02 duloxetine [From Cymbalta] Allergy Unknown Verified 08/16/18 22:02 Penicillins Allergy Rash/Hives Verified 08/16/18 22:02 codeine AdvReac Nausea & Verified 08/16/18 22:02 Vomiting phenobarbital AdvReac Unknown Verified 08/16/18 22:02 phenytoin sodium AdvReac Unknown Verified 08/16/18 22:02 [From Dilantin] phenytoin sodium extended AdvReac Unknown Verified 08/16/18 22:02 [From Dilantin] primidone [From Mysoline] AdvReac Unknown Verified 08/16/18 22:02 Review of Systems ROS Statement: Those systems with pertinent positive or pertinent negative responses have been documented in the HPI. ROS Other: All systems not noted in ROS Statement are negative. Past Medical History Past Medical History: Cancer, Heart Failure, COPD, Diabetes Mellitus, Fibromyalgia, Hyperlipidemia, Hypertension, Renal Disease, Rheumatoid Arthritis (RA), Seizure Disorder, Supraventricular Tachycardia (SVT) Additional Past Medical History / Comment(s): IDDM type II, neuropathy bilateral legs/feet and hands, past cellulitis leg, R breast cancer with surgery and chemo, seizures with last time "years" ago, UTI, CKD, UTIs, chronic anemiaDM Type II. Recent dental extraction (all teeth from lower jaw 11/2017) History of Any Multi-Drug Resistant Organisms: VRE Date of last positivie culture/infection: 05/11/18 MDRO Source:: VRE URINE Past Surgical History: Adenoidectomy, Appendectomy, Breast Surgery, Cholecystectomy, Hysterectomy, Orthopedic Surgery, Tonsillectomy, Tubal Ligation Additional Past Surgical History / Comment(s): masectomy right, ganglion cyst right hand, total hysterectomy (hx of tubal pregnancies), lower teeth extracted. Past Anesthesia/Blood Transfusion Reactions: No Reported Reaction Past Psychological History: Anxiety, Depression Smoking Status: Former smoker Past Alcohol Use History: None Reported Past Drug Use History: None Reported - Past Family History Father Family Medical History: Cancer, CVA/TIA Additional Family Medical History / Comment(s): 2000 from lung cancer Mother Family Medical History: Cancer, Dementia Additional Family Medical History / Comment(s): 2014 at age 86. Oral & Breast cancer Brother(s) Family Medical History: Asthma, Diabetes Mellitus, Fibromyalgia, Osteoarthritis (OA) Additional Family Medical History / Comment(s): Obesity. Joint replacements General Exam Limitations: no limitations General appearance: alert, in no apparent distress Head exam: Present: atraumatic, normocephalic Eye exam: Present: normal appearance, PERRL, EOMI. Absent: scleral icterus, conjunctival injection ENT exam: Present: normal exam Neck exam: Present: normal inspection. Absent: tenderness, meningismus Respiratory exam: Present: normal lung sounds bilaterally. Absent: respiratory distress, wheezes Cardiovascular Exam: Present: regular rate, normal rhythm GI/Abdominal exam: Present: soft. Absent: distended, tenderness, guarding, rebound Rectal exam: Present: deferred Extremities exam: Present: normal inspection, normal capillary refill. Absent: pedal edema, joint swelling Neurological exam: Present: alert, oriented X3, CN II-XII intact. Absent: motor sensory deficit Psychiatric exam: Present: normal affect, normal mood Skin exam: Present: warm, dry, intact. Absent: cyanosis, diaphoretic Course Vital Signs 08/16/18 21:36 Temperature 98.2 F Pulse Rate 965 H Respiratory 18 Rate Blood Pressure 188/92 O2 Sat by Pulse 99 Oximetry EKG Findings - EKG Comments: EKG Findings:: EKG: Normal sinus rhythm, left axis deviation, no ST segment elevation, rate of 96, DC interval 202, QRS duration 108, QTC 497. Medical Decision Making - Medical Decision Making 68-year-old female with seizure disorder presenting with 2 minute generalized seizure. Patient is well-appearing, nonfocal exam, complains of mild headache. No other complaints. Head CT is performed, negative for intracranial hemorrhage or mass effect unremarkable head CT. She has normal electrolytes. EKG showed sinus rhythm. [facility], will require outpatient follow-up with her neurologist Dr. Babb. - Lab Data Result diagrams: 08/16/18 22:00 08/16/18 22:00 Lab Results 08/16/18 08/16/18 Range/Units 22:00 22:00 WBC 4.1 (3.8-10.6) k/uL RBC 3.13 L (3.80-5.40) m/uL Hgb 10.0 L (11.4-16.0) gm/dL Hct 29.9 L (34.0-46.0) % MCV 95.3 (80.0-100.0) fL MCH 32.0 (25.0-35.0) pg MCHC 33.5 (31.0-37.0) g/dL RDW 15.2 (11.5-15.5) % Plt Count 110 L (150-450) k/uL Neutrophils % 62 % Lymphocytes % 23 % Monocytes % 7 % Eosinophils % 5 % Basophils % 1 % Neutrophils # 2.5 (1.3-7.7) k/uL Lymphocytes # 0.9 L (1.0-4.8) k/uL Monocytes # 0.3 (0-1.0) k/uL Eosinophils # 0.2 (0-0.7) k/uL Basophils # 0.0 (0-0.2) k/uL Poikilocytosis Slight Sodium 139 (137-145) mmol/L Potassium 4.4 (3.5-5.1) mmol/L Chloride 104 (98-107) mmol/L Carbon Dioxide 27 (22-30) mmol/L Anion Gap 8 mmol/L BUN 19 H (7-17) mg/dL Creatinine 0.95 (0.52-1.04) mg/dL Est GFR (CKD-EPI)AfAm 73 (>60 ml/min/1.73 sqM) Est GFR (CKD-EPI)NonAf 63 (>60 ml/min/1.73 sqM) Glucose 135 H (74-99) mg/dL Calcium 9.4 (8.4-10.2) mg/dL Total Bilirubin 1.3 (0.2-1.3) mg/dL AST 34 (14-36) U/L ALT 11 (9-52) U/L Alkaline Phosphatase 101 (38-126) U/L Total Protein 8.0 (6.3-8.2) g/dL Albumin 4.2 (3.5-5.0) g/dL Disposition Clinical Impression: Generalized seizure Disposition: HOME SELF-CARE Condition: Fair Instructions (If sedation given, give patient instructions): Recurrent Seizures in Adults (ED) Is patient prescribed a controlled substance at d/c from ED?: No Referrals: Handy Delcid MD [Primary Care Provider] - 1-2 days Sesar Babb MD [STAFF PHYSICIAN] - 1-2 days Time of Disposition: 00:04
[2018-08-16 22:25] LABS: Basophils % (A) 1 %; Eosinophils # (A) 0.2 k/uL (0-0.7); Eosinophils % (A) 5 %; HCT 29.9 % (34.0-46.0); Lymphocytes # (A) 0.9 k/uL (1.0-4.8); Lymphocytes % (A) 23 %; MCHC 33.5 g/dL (31.0-37.0); MCV 95.3 fL (80.0-100.0); Mean Platelet Volume 7.6; Monocytes # (A) 0.3 k/uL (0-1.0); Monocytes % (A) 7 %; Neutrophils # (A) 2.5 k/uL (1.3-7.7); Neutrophils % (A) 62 %; Platelet Count 110 k/uL (150-450); Poikilocytosis Slight; RBC 3.13 m/uL (3.80-5.40); RDW 15.2 % (11.5-15.5); WBC 4.1 k/uL (3.8-10.6)
[2018-08-16 22:32] LABS: Albumin 4.2 g/dL (3.5-5.0); Calcium 9.4 mg/dL (8.4-10.2); Total Bilirubin 1.3 mg/dL (0.2-1.3)
[2018-08-16 22:35] LABS: Potassium 4.4 mmol/L (3.5-5.1)
--- NOTE | 2018-08-16 23:08 | CT ---
EXAM: CT Head Without Intravenous Contrast CLINICAL HISTORY: SeizureSeizure activity TECHNIQUE: Axial computed tomography images of the head/brain without intravenous contrast. CTDI is 49.27 mGy and DLP is 1107.4 mGy-cm. This CT exam was performed using one or more of the following dose reduction techniques: automated exposure control, adjustment of the mA and/or kV according to patient size, and/or use of iterative reconstruction technique. Coronal and sagittal reformatted images were created and reviewed. COMPARISON: 06-06-18 FINDINGS: Brain: Unremarkable. No hemorrhage. No significant white matter disease. No edema. Ventricles: Unremarkable. No ventriculomegaly. Bones/joints: Unremarkable. No acute fracture. Soft tissues: Unremarkable. Sinuses: Unremarkable as visualized. No acute sinusitis. Mastoid air cells: Unremarkable as visualized. No mastoid effusion. Orbits: Bilateral cataract surgeries IMPRESSION: No acute intracranial findings or substantial change
[2018-08-16] MEDS ORDERED: ACETAMINOPHEN TAB 500 MG TAB PO STA (23:39)
[2018-08-16] MEDS ORDERED: HYDROmorphone 1 MG/ML 1 ML SYRINGE IVP STA (23:39)
[2018-08-17 00:07] VITALS: BP 191/91; PULSE 101; RESP 20
[2018-08-17 00:34] VITALS: TEMP 97.8
== END 2018-08-17 01:05 | disposition home or self-care (01) ==
LOC: EC 21:32
DX: G40.909 Epilepsy, unspecified, not intractable, without status epilepticus (principal); R51 Headache; J44.9 Chronic obstructive pulmonary disease, unspecified; E11.40 Type 2 diabetes mellitus with diabetic neuropathy, unspecified; E11.22 Type 2 diabetes mellitus with diabetic chronic kidney disease; I13.0 Hypertensive heart and chronic kidney disease with heart failure and stage 1 through stage 4 chronic kidney disease, or unspecified chronic kidney disease; N18.9 Chronic kidney disease, unspecified; I50.9 Heart failure, unspecified; M79.7 Fibromyalgia; Z87.891 Personal history of nicotine dependence; Z79.4 Long term (current) use of insulin; Z79.899 Other long term (current) drug therapy; Z79.51 Long term (current) use of inhaled steroids; Z79.82 Long term (current) use of aspirin; Z88.0 Allergy status to penicillin; Z88.5 Allergy status to narcotic agent; Z88.8 Allergy status to other drugs, medicaments and biological substances; Z88.1 Allergy status to other antibiotic agents; Z86.2 Personal history of diseases of the blood and blood-forming organs and certain disorders involving the immune mechanism; Z85.3 Personal history of malignant neoplasm of breast; Z98.51 Tubal ligation status
CPT/HCPCS: 36415; 93005; 80053; 85025; 70450; 99285; 96374; 96361 ×2; J1170

== ENCOUNTER → 2018-08-20 | Outpatient (CLI) | payer MEDICARE ==
--- NOTE | 2018-08-20 23:43 | MR ---
EXAMINATION TYPE: MR brain wo/w con DATE OF EXAM: 08/20/2018 COMPARISON: CT 08/16/2018 HISTORY: 68-year-old female Seizure / Metabolic encephalopathy TECHNIQUE: Multiplanar, multisequence images of the brain and brainstem were acquired before and aft er administration of 11.5 mL IV Gadavist. Diffusion weighted imaging is performed. FINDINGS: No evidence for acute infarction, hemorrhage, mass, mass effect, midline shift, herniation, effacemen t of basal cisterns, or extra-axial fluid collection. There is mild generalized supratentorial volume loss with sulcal prominence. No hydrocephalus. Major intracranial flow voids are intact. T2/FLAIR weighted sequences show moderate patchy periventricular deep white matter bright signal jenkins ge and mild scattered foci in the subcutaneous cortical region Symmetrical appearance to the hippocampi and fornices. Midline structures demonstrate normal morphology. The craniocervical junction is normal. Post contrast images demonstrate no evidence of pathologic enhancement. Dural venous sinuses are pat ent. The visualized sinuses are clear and the globes are intact. IMPRESSION: 1. Mild generalized atrophy and mild to moderate patchy changes of chronic small vessel ischemic dise ase. 2. No acute intracranial abnormality or enhancing intracranial lesions seen.
== END | disposition home or self-care (01) ==
LOC: RADMRIMAIN 11:47
PROVIDERS: ATTEND Psychiatry & Neurology Neurology
DX: G31.9 Degenerative disease of nervous system, unspecified (principal); I67.82 Cerebral ischemia; R56.9 Unspecified convulsions; Z85.3 Personal history of malignant neoplasm of breast
CPT/HCPCS: 70553; A9585

== ENCOUNTER 2018-12-07 19:38 | Emergency (ER) | payer MEDICARE, OTHER ==
[2018-12-07 19:48] VITALS: RESP 18; TEMP 98.3
[2018-12-07] MEDS ORDERED: SODIUM CHLORIDE 0.9% 1,000 ML IV STA (20:34)
--- NOTE | 2018-12-07 20:42 | ED ---
Seizure HPI - General Chief Complaint: Seizure Stated Complaint: Seizure Time Seen by Provider: 12/07/18 19:41 Source: patient, EMS, RN notes reviewed, old records reviewed Mode of arrival: EMS Limitations: no limitations - History of Present Illness Initial Comments: This is a 68-year-old female poor historian coming in for evaluation regards to possible seizure seizure-like activity per [facility] and leg. Patient herself is actually able to give history of seizures is not on seizure medication she states that she does occasionally have some seizure-like activity but she seen a neurologist as there was nonepileptic. Patient is having a mild headache currently denying any other complaints may be some mild weakness. No recent change in medications and patient has no fevers. Patient is otherwise obtained from EMS and patient's chart MD Complaint: possible seizure -: hour(s) Description of Episode: tonic-clonic movement (Per history) -: second(s) Witnessed: yes - by bystander Seizure History: known seizure disorder (Nonepileptic) Place: home Possible Precipitating Event: none Associated Symptoms: denies other symptoms Treatments Prior to Arrival: none - Related Data Home Medications Medication Instructions Recorded Confirmed Anastrozole [Arimidex] 1 mg PO DAILY@0900 09/30/14 12/07/18 Acetaminophen Tab [Tylenol] 650 mg PO Q4H PRN 02/20/18 12/07/18 Aspirin 81 mg PO DAILY@0900 02/20/18 12/07/18 Docusate [Colace] 100 mg PO DAILY@2100 02/20/18 12/07/18 Sennosides [Senna] 8.6 mg PO BID@0900,209904/02/18 12/07/18 Insulin Lispro [humaLOG Kwikpen] See Protocol SQ ACHS 06/06/18 12/07/18 Magnesium Hydroxide [Milk of 2,400 mg PO HS PRN 06/06/18 12/07/18 Magnesia] Darbepoetin Gurwinder [Aranesp] 40 mcg SQ TH 07/02/18 12/07/18 Pantoprazole [Protonix] 40 mg PO DAILY@0900 07/02/18 12/07/18 Cyclobenzaprine [Flexeril] 10 mg PO TID@0600,1400,2200 08/16/18 12/07/18 Ferrous Sulfate [Feosol] 325 mg PO DAILY@1200 08/16/18 12/07/18 Metoprolol Tartrate [Lopressor] 25 mg PO HS@2100 08/16/18 12/07/18 Metoprolol Tartrate [Lopressor] 50 mg PO DAILY@0900 08/16/18 12/07/18 Potassium Chloride ER [K-Dur 10] 10 meq PO DAILY@0900 08/16/18 12/07/18 Furosemide [Lasix] 40 mg PO DAILY@0900 12/07/18 12/07/18 HYDROcodone/APAP 10-325MG [[place] 1 tab PO Q6H PRN 12/07/18 12/07/18 10-325] Insulin Glargine,Hum.rec.anlog 5 unit SQ HS@209912/07/18 12/07/18 [Lantus Solostar] Loperamide [Imodium] 2 - 4 mg PO QID PRN 12/07/18 12/07/18 Polyvinyl Alcohol/Povidone 1 drop BOTH EYES TID@0600,1400,209912/07/18 12/07/18 [Freshkote] Previous Rx's Medication Instructions Recorded Nitroglycerin Sl Tabs [Nitrostat] 0.4 mg SUBLINGUAL Q5M PRN tab 02/28/18 Cyanocobalamin [Vitamin B-12] 500 mcg PO DAILY@1200 tab 06/11/18 Allergies Allergy/AdvReac Type Severity Reaction Status Date / Time cephalexin [From Keflex] Allergy Unknown Verified 12/07/18 19:54 duloxetine [From Cymbalta] Allergy Unknown Verified 12/07/18 19:54 Penicillins Allergy Rash/Hives Verified 12/07/18 19:54 codeine AdvReac Nausea & Verified 12/07/18 19:54 Vomiting phenobarbital AdvReac Unknown Verified 12/07/18 19:54 phenytoin sodium AdvReac Unknown Verified 12/07/18 19:54 [From Dilantin] phenytoin sodium extended AdvReac Unknown Verified 12/07/18 19:54 [From Dilantin] primidone [From Mysoline] AdvReac Unknown Verified 12/07/18 19:54 Review of Systems ROS Statement: Those systems with pertinent positive or pertinent negative responses have been documented in the HPI. ROS Other: All systems not noted in ROS Statement are negative. Past Medical History Past Medical History: Cancer, Heart Failure, COPD, Diabetes Mellitus, Fibromyalgia, Hyperlipidemia, Hypertension, Renal Disease, Rheumatoid Arthritis (RA), Seizure Disorder, Supraventricular Tachycardia (SVT) Additional Past Medical History / Comment(s): IDDM type II, neuropathy bilateral legs/feet and hands, past cellulitis leg, R breast cancer with surgery and chemo, seizures with last time "years" ago, UTI, CKD, UTIs, chronic anemiaDM Type II. Recent dental extraction (all teeth from lower jaw 11/2017) History of Any Multi-Drug Resistant Organisms: VRE Date of last positivie culture/infection: 05/11/18 MDRO Source:: VRE URINE Past Surgical History: Adenoidectomy, Appendectomy, Breast Surgery, Cholecystectomy, Hysterectomy, Orthopedic Surgery, Tonsillectomy, Tubal Ligation Additional Past Surgical History / Comment(s): masectomy right, ganglion cyst right hand, total hysterectomy (hx of tubal pregnancies), lower teeth extracted. Past Anesthesia/Blood Transfusion Reactions: No Reported Reaction Past Psychological History: Anxiety, Depression Smoking Status: Former smoker Past Alcohol Use History: None Reported Past Drug Use History: None Reported - Past Family History Father Family Medical History: Cancer, CVA/TIA Additional Family Medical History / Comment(s): 2000 from lung cancer Mother Family Medical History: Cancer, Dementia Additional Family Medical History / Comment(s): 2014 at age 86. Oral & Breast cancer Brother(s) Family Medical History: Asthma, Diabetes Mellitus, Fibromyalgia, Osteoarthritis (OA) Additional Family Medical History / Comment(s): Obesity. Joint replacements General Exam Limitations: no limitations General appearance: alert, in no apparent distress Head exam: Present: atraumatic, normocephalic, normal inspection Eye exam: Present: normal appearance, PERRL, EOMI. Absent: scleral icterus, conjunctival injection, periorbital swelling ENT exam: Present: normal exam, mucous membranes moist Neck exam: Present: normal inspection. Absent: tenderness, meningismus, lymphadenopathy Respiratory exam: Present: normal lung sounds bilaterally. Absent: respiratory distress, wheezes, rales, rhonchi, stridor Cardiovascular Exam: Present: regular rate, normal rhythm, normal heart sounds. Absent: systolic murmur, diastolic murmur, rubs, gallop, clicks GI/Abdominal exam: Present: soft, normal bowel sounds. Absent: distended, tenderness, guarding, rebound, rigid Extremities exam: Present: normal inspection, full ROM, normal capillary refill. Absent: tenderness, pedal edema, joint swelling, calf tenderness Back exam: Present: normal inspection Neurological exam: Present: alert, oriented X3, CN II-XII intact Psychiatric exam: Present: normal affect, normal mood Skin exam: Present: warm, dry, intact, normal color. Absent: rash Course Vital Signs 12/07/18 19:43 Temperature 98.3 F Pulse Rate 73 Respiratory 18 Rate Blood Pressure 131/57 O2 Sat by Pulse 97 Oximetry - Reevaluation(s) Reevaluation #1: 12/07/18 20:42 Medical records reviewed Reevaluation #2: 12/07/18 21:45 Patient's in no acute distress no recurrent seizure-like activity here in the ER Reevaluation #3: 12/07/18 21:45 Spoke with [facility], able to take patient back Medical Decision Making - Medical Decision Making 68 female the ER with history of seizures nonepileptic coming in for possible seizure-like activity. No significant issues found here in the ER patient can be discharged home - Lab Data Result diagrams: 12/07/18 21:08 12/07/18 21:08 Lab Results 12/07/18 12/07/18 12/07/18 Range/Units 21:00 21:08 21:08 WBC 2.6 L (3.8-10.6) k/uL RBC 2.68 L (3.80-5.40) m/uL Hgb 8.4 L (11.4-16.0) gm/dL Hct 26.1 L (34.0-46.0) % MCV 97.6 (80.0-100.0) fL MCH 31.5 (25.0-35.0) pg MCHC 32.3 (31.0-37.0) g/dL RDW 16.0 H (11.5-15.5) % Hypochromasia Moderate Poikilocytosis Slight Macrocytosis Slight Sodium 141 (137-145) mmol/L Potassium 4.5 (3.5-5.1) mmol/L Chloride 107 (98-107) mmol/L Carbon Dioxide 27 (22-30) mmol/L Anion Gap 7 mmol/L BUN 25 H (7-17) mg/dL Creatinine 1.24 H (0.52-1.04) mg/dL Est GFR (CKD-EPI)AfAm 52 (>60 ml/min/1.73 sqM) Est GFR (CKD-EPI)NonAf 45 (>60 ml/min/1.73 sqM) Glucose 103 H (74-99) mg/dL Calcium 9.5 (8.4-10.2) mg/dL Phosphorus 4.0 (2.5-4.5) mg/dL Magnesium 2.2 (1.6-2.3) mg/dL Total Bilirubin 1.2 (0.2-1.3) mg/dL AST 26 (14-36) U/L ALT 16 (9-52) U/L Alkaline Phosphatase 87 (38-126) U/L Total Protein 7.4 (6.3-8.2) g/dL Albumin 3.8 (3.5-5.0) g/dL Urine Color Light Yellow Urine Appearance Clear (Clear) Urine pH 7.0 (5.0-8.0) Ur Specific [place] 1.008 (1.001-1.035) Urine Protein Negative (Negative) Urine Glucose (UA) Negative (Negative) Urine Ketones Negative (Negative) Urine Blood Negative (Negative) Urine Nitrite Negative (Negative) Urine Bilirubin Negative (Negative) Urine Urobilinogen 3.0 (<2.0) mg/dL Ur Leukocyte Esterase Large H (Negative) Urine RBC 3 (0-5) /hpf Urine WBC 28 H (0-5) /hpf Ur Squamous Epith Cells 1 (0-4) /hpf Salicylates 1.0 mg/dL Urine Opiates Screen Detected H (NotDetected) Ur Oxycodone Screen Not Detected (NotDetected) Urine Methadone Screen Not Detected (NotDetected) Ur Propoxyphene Screen Not Detected (NotDetected) Acetaminophen <10.0 ug/mL Ur Barbiturates Screen Not Detected (NotDetected) U Tricyclic Antidepress Detected H (NotDetected) Ur Phencyclidine Scrn Not Detected (NotDetected) Ur Amphetamines Screen Not Detected (NotDetected) U Methamphetamines Scrn Not Detected (NotDetected) U Benzodiazepines Scrn Not Detected (NotDetected) Urine Cocaine Screen Not Detected (NotDetected) U Marijuana (THC) Screen Not Detected (NotDetected) Serum Alcohol <10 mg/dL - EKG Data -: EKG Interpreted by Me (EKG shows sinus rhythm rate of 73, NH 212, QRS 112, QTc 442) Disposition Clinical Impression: Altered mental status, Recurrent seizures Disposition: HOME SELF-CARE Condition: Fair Instructions (If sedation given, give patient instructions): Recurrent Seizures in Adults (ED) Is patient prescribed a controlled substance at d/c from ED?: No Referrals: Handy Delcid MD [Primary Care Provider] - 1-2 days
[2018-12-07 21:23] LABS: Appearance,Urine Clear (Clear); Bilirubin,Urine Negative (Negative); Blood,Urine Negative (Negative); Color,Urine Light Yellow; Glucose,Urine (UA) Negative (Negative); Ketones,Urine Negative (Negative); Leukocyte Esterase,Urine Large (Negative); Nitrite,Urine Negative (Negative); Protein,Urine Negative (Negative); RBC,Urine 3 /hpf (0-5); Specific Gravity,Urine 1.008 (1.001-1.035); Squamous Epithelial Cell,Urine 1 /hpf (0-4); WBC,Urine 28 /hpf (0-5)
--- NOTE | 2018-12-07 21:26 | CT ---
EXAMINATION: CT brain wo con DATE AND TIME: 12/07/2018 9:09 PM CLINICAL INDICATION: seizure activity TECHNIQUE: Standard departmental protocol.; DLP:1064.4 COMPARISON: CT 08/16/2018 FINDINGS: The calvarium is intact. There is no intracranial hemorrhage. There is no intracranial mass or mass effect. No definite new intra-axial or extra-axial attenuation defect. The paranasal sinuses, middle ear cavities, and mastoid sinus air cells are clear. The orbits are unremarkable. IMPRESSION: NO ACUTE PROCESS.
[2018-12-07 21:33] LABS: Amphetamine Screen,Urine Not Detected (NotDetected); Barbiturate Screen,Urine Not Detected (NotDetected); Benzodiazepines Screen,Urine Not Detected (NotDetected); Cocaine Screen,Urine Not Detected (NotDetected); Methadone Screen, Urine Not Detected (NotDetected); Opiate Screen,Urine Detected (NotDetected); Oxycodone Screen, Urine Not Detected (NotDetected); Phencyclidine Screen,Urine Not Detected (NotDetected); Tricyclic Antidepressant,Urine Detected (NotDetected); Urn Cannabinoid Scrn Not Detected (NotDetected)
[2018-12-07 21:38] LABS: Basophils % (A) 1 %; Eosinophils # (A) 0.1 k/uL (0-0.7); Eosinophils % (A) 5 %; HCT 26.1 % (34.0-46.0); HGB 8.4 gm/dL (11.4-16.0); Hypochromasia Moderate; Lymphocytes # (A) 0.7 k/uL (1.0-4.8); Lymphocytes % (A) 29 %; MCH 31.5 pg (25.0-35.0); MCHC 32.3 g/dL (31.0-37.0); MCV 97.6 fL (80.0-100.0); Macrocytosis Slight; Mean Platelet Volume 6.7; Monocytes # (A) 0.2 k/uL (0-1.0); Monocytes % (A) 7 %; Neutrophils # (A) 1.4 k/uL (1.3-7.7); Neutrophils % (A) 54 %; Poikilocytosis Slight; RBC 2.68 m/uL (3.80-5.40); WBC 2.6 k/uL (3.8-10.6)
[2018-12-07 21:48] LABS: ALT 16 U/L (9-52); AST 26 U/L (14-36); Acetaminophen <10.0 ug/mL; African American GFR (CKD) 52 (>60 ml/min/1.73 sqM); Albumin 3.8 g/dL (3.5-5.0); Alcohol <10 mg/dL; Alkaline Phosphatase 87 U/L (38-126); Anion Gap 7 mmol/L; Blood Urea Nitrogen 25 mg/dL (7-17); Calcium 9.5 mg/dL (8.4-10.2); Carbon Dioxide 27 mmol/L (22-30); Chloride 107 mmol/L (98-107); Glucose 103 mg/dL (74-99); Magnesium 2.2 mg/dL (1.6-2.3); Potassium 4.5 mmol/L (3.5-5.1); Sodium 141 mmol/L (137-145); Total Bilirubin 1.2 mg/dL (0.2-1.3); Total Protein 7.4 g/dL (6.3-8.2)
[2018-12-07] MEDS ORDERED: MORPHINE SULFATE 4 MG/ML SYRINGE IVP STA (21:48)
[2018-12-07 22:27] LABS: Platelet Count 75 k/uL (150-450)
[2018-12-07 23:32] VITALS: BP 139/80; PULSE 70
== END 2018-12-07 23:40 | disposition home or self-care (01) ==
LOC: EC 19:38 → EEVIPCON 19:38 → EC 23:40
DX: G40.909 Epilepsy, unspecified, not intractable, without status epilepticus (principal); R41.82 Altered mental status, unspecified; R51 Headache; I13.0 Hypertensive heart and chronic kidney disease with heart failure and stage 1 through stage 4 chronic kidney disease, or unspecified chronic kidney disease; I50.9 Heart failure, unspecified; N18.9 Chronic kidney disease, unspecified; E11.22 Type 2 diabetes mellitus with diabetic chronic kidney disease; E11.42 Type 2 diabetes mellitus with diabetic polyneuropathy; M79.7 Fibromyalgia; M06.9 Rheumatoid arthritis, unspecified; D63.1 Anemia in chronic kidney disease; Z87.891 Personal history of nicotine dependence; Z88.0 Allergy status to penicillin; Z88.1 Allergy status to other antibiotic agents; Z88.5 Allergy status to narcotic agent; Z88.8 Allergy status to other drugs, medicaments and biological substances; Z79.4 Long term (current) use of insulin; Z79.82 Long term (current) use of aspirin; Z79.899 Other long term (current) drug therapy; Z85.3 Personal history of malignant neoplasm of breast; Z92.21 Personal history of antineoplastic chemotherapy; Z90.11 Acquired absence of right breast and nipple
CPT/HCPCS: 99285 ×2; 96374 ×2; 96361 ×3; 36415; 93005; 80053; 83735; 84100; 85025; 81001; 80306; 83520; 70450; G0480 ×2; J2270; 80320; 80329

== ENCOUNTER → 2019-04-02 | Outpatient (CLI) | payer MEDICARE, OTHER ==
--- NOTE | 2019-04-03 07:59 | MM ---
Reason for exam: additional evaluation requested from prior study. Last mammogram was performed 1 year and 7 months ago. History: Patient is postmenopausal, has history of breast cancer at age 63, and is nulliparous. Family history of breast cancer in mother. Malignant US biopsy breast VAD RT of the right breast, November 08, 2013. Mastectomy of the right breast. Taking antineoplastic beginning at age 66. Physical Findings: Nurse did not find any significant physical abnormalities on exam. [facility] Diagnostic Mammo LT w CAD CC and MLO view(s) were taken of the left breast. Prior study comparison: August 18, 2017, left breast MG diagnostic mammo LT w CAD. October 31, 2014, left breast MG diagnostic mammo LT w CAD. There are scattered fibroglandular densities. No significant new findings when compared with previous films. These results were verbally communicated with the patient and result sheet given to the patient on 04/02/19. ASSESSMENT: Negative, BI-RAD 1 RECOMMENDATION: Routine screening mammogram of the left breast in 1 year.
== END | disposition home or self-care (01) ==
LOC: RADMAMWWP 13:00
PROVIDERS: ATTEND Internal Medicine Hematology & Oncology
DX: Z08 Encounter for follow-up examination after completed treatment for malignant neoplasm (principal); Z85.3 Personal history of malignant neoplasm of breast; Z90.11 Acquired absence of right breast and nipple
CPT/HCPCS: 77065

== ENCOUNTER 2019-07-18 21:31 | Inpatient (IN) | payer MEDICARE, OTHER ==
--- NOTE | 2019-07-18 21:47 | ED ---
Altered Mental Status HPI - General Stated Complaint: Altered Mental Status Time Seen by Provider: 07/18/19 21:36 - History of Present Illness Initial Comments: Tawny is a 69-year-old female who presents to the ER today from long-term for evaluation of altered mental status and twitching. EMS reports that the patient is prescribed Klonopin when necessary staff the long-term states that after she gets her Klonopin she tends to be very somnolent. They state that the Klonopin as ordered when necessary but she's been getting it [id number] l ast dose was 1 PM today. They report that she's been somnolent since her doses yesterday and today they noted that she started twitching which prompted them to call EMS for transport to the hospital. - Related Data Home Medications Medication Instructions Recorded Confirmed Anastrozole [Arimidex] 1 mg PO DAILY@89909/30/14 12/07/18 Acetaminophen Tab [Tylenol] 650 mg PO Q4H PRN 02/20/18 12/07/18 Aspirin 81 mg PO DAILY@0902/20/18 12/07/18 Docusate [Colace] 100 mg PO DAILY@209902/20/18 12/07/18 Sennosides [Senna] 8.6 mg PO BID@0900,209904/02/18 12/07/18 Insulin Lispro [humaLOG Kwikpen] See Protocol SQ ACHS 06/06/18 12/07/18 Magnesium Hydroxide [Milk of 2,400 mg PO HS PRN 06/06/18 12/07/18 Magnesia] Darbepoetin Gurwinder [Aranesp] 40 mcg SQ TH 07/02/18 12/07/18 Pantoprazole [Protonix] 40 mg PO DAILY@0907/02/18 12/07/18 Cyclobenzaprine [Flexeril] 10 mg PO TID@0600,1400,2200 08/16/18 12/07/18 Ferrous Sulfate [Feosol] 325 mg PO DAILY@1200 08/16/18 12/07/18 Metoprolol Tartrate [Lopressor] 25 mg PO HS@209908/16/18 12/07/18 Metoprolol Tartrate [Lopressor] 50 mg PO DAILY@0908/16/18 12/07/18 Potassium Chloride ER [K-Dur 10] 10 meq PO DAILY@0900 08/16/18 12/07/18 Furosemide [Lasix] 40 mg PO DAILY@0900 12/07/18 12/07/18 HYDROcodone/APAP 10-325MG [[place] 1 tab PO Q6H PRN 12/07/18 12/07/18 10-325] Insulin Glargine,Hum.rec.anlog 5 unit SQ HS@2100 12/07/18 12/07/18 [Lantus Solostar] Loperamide [Imodium] 2 - 4 mg PO QID PRN 12/07/18 12/07/18 Polyvinyl Alcohol/Povidone 1 drop BOTH EYES TID@0600,1400,2100 12/07/18 12/07/18 [Freshkote] Previous Rx's Medication Instructions Recorded Nitroglycerin Sl Tabs [Nitrostat] 0.4 mg SUBLINGUAL Q5M PRN tab 02/28/18 Cyanocobalamin [Vitamin B-12] 500 mcg PO DAILY@1200 tab 06/11/18 Allergies Allergy/AdvReac Type Severity Reaction Status Date / Time cephalexin [From Keflex] Allergy Unknown Verified 07/18/19 21:54 duloxetine [From Cymbalta] Allergy Unknown Verified 07/18/19 21:54 Penicillins Allergy Rash/Hives Verified 07/18/19 21:54 codeine AdvReac Nausea & Verified 07/18/19 21:54 Vomiting phenobarbital AdvReac Unknown Verified 07/18/19 21:54 phenytoin sodium AdvReac Unknown Verified 07/18/19 21:54 [From Dilantin] phenytoin sodium extended AdvReac Unknown Verified 07/18/19 21:54 [From Dilantin] primidone [From Mysoline] AdvReac Unknown Verified 07/18/19 21:54 Review of Systems ROS Statement: Those systems with pertinent positive or pertinent negative responses have been documented in the HPI. ROS Other: All systems not noted in ROS Statement are negative. Past Medical History Past Medical History: Cancer, Heart Failure, COPD, Diabetes Mellitus, Fibromyalgia, Hyperlipidemia, Hypertension, Renal Disease, Rheumatoid Arthritis (RA), Seizure Disorder, Supraventricular Tachycardia (SVT) Additional Past Medical History / Comment(s): IDDM type II, neuropathy bilateral legs/feet and hands, past cellulitis leg, R breast cancer with surgery and chemo, seizures with last time "years" ago, UTI, CKD, UTIs, chronic anemiaDM Type II. Recent dental extraction (all teeth from lower jaw 11/2017) History of Any Multi-Drug Resistant Organisms: VRE Date of last positivie culture/infection: 05/11/18 MDRO Source:: VRE URINE Past Surgical History: Adenoidectomy, Appendectomy, Breast Surgery, Cholecystectomy, Hysterectomy, Orthopedic Surgery, Tonsillectomy, Tubal Ligation Additional Past Surgical History / Comment(s): masectomy right, ganglion cyst right hand, total hysterectomy (hx of tubal pregnancies), lower teeth extracted. Past Anesthesia/Blood Transfusion Reactions: No Reported Reaction Past Psychological History: Anxiety, Depression Smoking Status: Former smoker Past Alcohol Use History: None Reported Past Drug Use History: None Reported - Past Family History Father Family Medical History: Cancer, CVA/TIA Additional Family Medical History / Comment(s): 2000 from lung cancer Mother Family Medical History: Cancer, Dementia Additional Family Medical History / Comment(s): 2014 at age 86. Oral & Breast cancer Brother(s) Family Medical History: Asthma, Diabetes Mellitus, Fibromyalgia, Osteoarthritis (OA) Additional Family Medical History / Comment(s): Obesity. Joint replacements General Exam - General Exam Comments Initial Comments: Physical Exam GENERAL: Chronically ill appearing Patients entire clothing wet with malodorous urine HENT: Normocephalic, Atraumatic. EYES: PERRL, EOMI Pupils 4mm PULMONARY: Unlabored respirations. CARDIOVASCULAR: RRR Warm and well perfused extremities ABDOMEN: Non-distended SKIN: No rashes or bruising : Deferred NEUROLOGIC: awake, moans to voice, withdraws to pain MUSCULOSKELETAL: Moving all extremities with no apparent injury PSYCHIATRIC: Unable to assess Course Vital Signs 07/18/19 07/18/19 21:47 23:47 Temperature 98.4 F Pulse Rate 89 91 Respiratory 16 16 Rate Blood Pressure 185/89 163/84 O2 Sat by Pulse 97 97 Oximetry Medical Decision Making - Medical Decision Making Patient was seen and evaluated history is obtained from EMS Apparently this patient being given medications that are sedating and is now somnolent Labs and imaging were obtained Labs are relatively unremarkable urinalysis and urine drug screen only positive for opiates the patient is also known to be prescribed Flexeril and benzos She does not have pinpoint pupils or evidence of opiate intoxication I suspect patient's altered mental status is secondary to polysubstance ingestion she will improve with time. She does wake moan and fight to any painful or uncomfortable stimuli including urinary catheterization. She moans to voice. This time we will place the patient observation for further evaluation - Lab Data Result diagrams: 07/18/19 22:05 07/18/19 22:05 Lab Results 07/18/19 07/18/19 07/18/19 Range/Units 22:05 22:05 22:05 WBC 3.3 L (3.8-10.6) k/uL RBC 3.41 L (3.80-5.40) m/uL Hgb 10.2 L (11.4-16.0) gm/dL Hct 31.5 L (34.0-46.0) % MCV 92.5 (80.0-100.0) fL MCH 29.9 (25.0-35.0) pg MCHC 32.3 (31.0-37.0) g/dL RDW 15.6 H (11.5-15.5) % Plt Count 69 L (150-450) k/uL Neutrophils % (Manual) 68 % Lymphocytes % (Manual) 21 % Monocytes % (Manual) 11 % Neutrophils # (Manual) 2.24 (1.3-7.7) k/uL Lymphocytes # (Manual) 0.69 L (1.0-4.8) k/uL Monocytes # (Manual) 0.36 (0-1.0) k/uL Nucleated RBCs 0 (0-0) /100 WBC Manual Slide Review Performed Poikilocytosis Slight VBG pH 7.48 H (7.31-7.41) VBG pCO2 34 L (37-51) mmHg VBG HCO3 25 (24-28) mmol/L Sodium 139 (137-145) mmol/L Potassium 4.0 (3.5-5.1) mmol/L Chloride 107 (98-107) mmol/L Carbon Dioxide 23 (22-30) mmol/L Anion Gap 9 mmol/L BUN 33 H (7-17) mg/dL Creatinine 0.93 (0.52-1.04) mg/dL Est GFR (CKD-EPI)AfAm 74 (>60 ml/min/1.73 sqM) Est GFR (CKD-EPI)NonAf 64 (>60 ml/min/1.73 sqM) Glucose 162 H (74-99) mg/dL Calcium 9.2 (8.4-10.2) mg/dL Total Bilirubin 1.4 H (0.2-1.3) mg/dL AST 30 (14-36) U/L ALT 11 (4-34) U/L Alkaline Phosphatase 97 (38-126) U/L Total Protein 7.7 (6.3-8.2) g/dL Albumin 4.0 (3.5-5.0) g/dL Urine Color Urine Appearance (Clear) Urine pH (5.0-8.0) Ur Specific [place] (1.001-1.035) Urine Protein (Negative) Urine Glucose (UA) (Negative) Urine Ketones (Negative) Urine Blood (Negative) Urine Nitrite (Negative) Urine Bilirubin (Negative) Urine Urobilinogen (<2.0) mg/dL Ur Leukocyte Esterase (Negative) Urine Opiates Screen (NotDetected) Ur Oxycodone Screen (NotDetected) Urine Methadone Screen (NotDetected) Ur Propoxyphene Screen (NotDetected) Ur Barbiturates Screen (NotDetected) U Tricyclic Antidepress (NotDetected) Ur Phencyclidine Scrn (NotDetected) Ur Amphetamines Screen (NotDetected) U Methamphetamines Scrn (NotDetected) U Benzodiazepines Scrn (NotDetected) Urine Cocaine Screen (NotDetected) U Marijuana (THC) Screen (NotDetected) 07/18/19 Range/Units 23:10 WBC (3.8-10.6) k/uL RBC (3.80-5.40) m/uL Hgb (11.4-16.0) gm/dL Hct (34.0-46.0) % MCV (80.0-100.0) fL MCH (25.0-35.0) pg MCHC (31.0-37.0) g/dL RDW (11.5-15.5) % Plt Count (150-450) k/uL Neutrophils % (Manual) % Lymphocytes % (Manual) % Monocytes % (Manual) % Neutrophils # (Manual) (1.3-7.7) k/uL Lymphocytes # (Manual) (1.0-4.8) k/uL Monocytes # (Manual) (0-1.0) k/uL Nucleated RBCs (0-0) /100 WBC Manual Slide Review Poikilocytosis VBG pH (7.31-7.41) VBG pCO2 (37-51) mmHg VBG HCO3 (24-28) mmol/L Sodium (137-145) mmol/L Potassium (3.5-5.1) mmol/L Chloride (98-107) mmol/L Carbon Dioxide (22-30) mmol/L Anion Gap mmol/L BUN (7-17) mg/dL Creatinine (0.52-1.04) mg/dL Est GFR (CKD-EPI)AfAm (>60 ml/min/1.73 sqM) Est GFR (CKD-EPI)NonAf (>60 ml/min/1.73 sqM) Glucose (74-99) mg/dL Calcium (8.4-10.2) mg/dL Total Bilirubin (0.2-1.3) mg/dL AST (14-36) U/L ALT (4-34) U/L Alkaline Phosphatase (38-126) U/L Total Protein (6.3-8.2) g/dL Albumin (3.5-5.0) g/dL Urine Color Yellow Urine Appearance Clear (Clear) Urine pH 7.5 (5.0-8.0) Ur Specific [place] 1.014 (1.001-1.035) Urine Protein Negative (Negative) Urine Glucose (UA) Negative (Negative) Urine Ketones Negative (Negative) Urine Blood Negative (Negative) Urine Nitrite Negative (Negative) Urine Bilirubin Negative (Negative) Urine Urobilinogen 8.0 (<2.0) mg/dL Ur Leukocyte Esterase Negative (Negative) Urine Opiates Screen Detected H (NotDetected) Ur Oxycodone Screen Not Detected (NotDetected) Urine Methadone Screen Not Detected (NotDetected) Ur Propoxyphene Screen Not Detected (NotDetected) Ur Barbiturates Screen Not Detected (NotDetected) U Tricyclic Antidepress Not Detected (NotDetected) Ur Phencyclidine Scrn Not Detected (NotDetected) Ur Amphetamines Screen Not Detected (NotDetected) U Methamphetamines Scrn Not Detected (NotDetected) U Benzodiazepines Scrn Not Detected (NotDetected) Urine Cocaine Screen Not Detected (NotDetected) U Marijuana (THC) Screen Not Detected (NotDetected) - EKG Data -: EKG Interpreted by Me EKG Comments: EKG was obtained due to altered mental status, EKG was obtained at 2200, rate is 90. Rhythm is sinus with left axis right bundle-branch block, MD prolonged at 200 QRS 156 QTC is [address] elevations or depressions or evidence of acute ischemia or infarction Disposition Clinical Impression: Encephalopathy Disposition: ADMITTED IP TO THIS HOSP Condition: Serious Is patient prescribed a controlled substance at d/c from ED?: No
[2019-07-18 22:17] LABS: HCT 31.5 % (34.0-46.0); HGB 10.2 gm/dL (11.4-16.0); MCH 29.9 pg (25.0-35.0); MCHC 32.3 g/dL (31.0-37.0); MCV 92.5 fL (80.0-100.0); Mean Platelet Volume 8.2; Poikilocytosis Slight; RBC 3.41 m/uL (3.80-5.40); RDW 15.6 % (11.5-15.5); VBG PH 7.48 (7.31-7.41); WBC 3.3 k/uL (3.8-10.6)
[2019-07-18 22:27] LABS: Calcium 9.2 mg/dL (8.4-10.2); Total Bilirubin 1.4 mg/dL (0.2-1.3); Total Protein 7.7 g/dL (6.3-8.2)
[2019-07-18 23:13] LABS: Lymphocytes # (M) 0.69 k/uL (1.0-4.8); Monocytes # (M) 0.36 k/uL (0-1.0); Neutrophils # (M) 2.24 k/uL (1.3-7.7); Neutrophils % (M) 68 %; Nucleated Red Blood Cells 0 /100 WBC (0-0); Platelet Count 69 k/uL (150-450); Total Cells Counted 100
--- NOTE | 2019-07-18 23:19 | CT ---
EXAMINATION TYPE: CT brain wo con DATE OF EXAM: 07/18/2019 COMPARISON: 12/07/2018 HISTORY: Altered, twitching. CT DLP: 1062.4 mGycm Automated exposure control for dose reduction was used. Ventricles have normal size. There is no mass effect nor midline shift. There is no sign of intracran ial hemorrhage. The calvarium is intact. There is some cerebral cortical atrophy. Skull base is intac t. IMPRESSION: Mild atrophy appropriate for age. No acute intracranial abnormality. No change.
[2019-07-18 23:21] LABS: Appearance,Urine Clear (Clear); Bilirubin,Urine Negative (Negative); Blood,Urine Negative (Negative); Color,Urine Yellow; Glucose,Urine (UA) Negative (Negative); Ketones,Urine Negative (Negative); Leukocyte Esterase,Urine Negative (Negative); Nitrite,Urine Negative (Negative); PH, Urine 7.5 (5.0-8.0); Protein,Urine Negative (Negative); Specific Gravity,Urine 1.014 (1.001-1.035)
[2019-07-18 23:34] LABS: Amphetamine Screen,Urine Not Detected (NotDetected); Barbiturate Screen,Urine Not Detected (NotDetected); Benzodiazepines Screen,Urine Not Detected (NotDetected); Cocaine Screen,Urine Not Detected (NotDetected); Methadone Screen, Urine Not Detected (NotDetected); Opiate Screen,Urine Detected (NotDetected); Oxycodone Screen, Urine Not Detected (NotDetected); Phencyclidine Screen,Urine Not Detected (NotDetected); Tricyclic Antidepressant,Urine Not Detected (NotDetected); Urn Cannabinoid Scrn Not Detected (NotDetected)
[2019-07-18] MEDS ORDERED: NALOXONE 0.4 MG/ML 1 ML VIAL IV PRN (23:58)
[2019-07-19] MEDS ORDERED: METOPROLOL TARTRATE 5 MG/5 ML VIAL IVP PRN (00:38)
[2019-07-19] MEDS ORDERED: METOPROLOL TARTRATE 5 MG/5 ML VIAL IVP STA (01:06)
[2019-07-19] MEDS ORDERED: hydrALAZINE HCL 20 MG/ML 1 ML VIAL IVP PRN ×2 (01:07→01:09)
[2019-07-19] MEDS: SODIUM CHLORIDE 0.9% 1,000 ML IV SCH ×2 (01:32→12:33)
[2019-07-19 03:04] LABS: Glucose,Whole Blood 176 mg/dL (75-99)
[2019-07-19 06:53] LABS: Glucose,Whole Blood 199 mg/dL (75-99)
[2019-07-19] MEDS: INSULIN ASPART (NovoLOG) 100 UNIT/ML VIAL SQ SCH ×4 (08:03→21:05)
[2019-07-19] MEDS ORDERED: GABAPENTIN 100 MG CAP PO SCH ×2 (09:00→18:00)
[2019-07-19] MEDS ORDERED: NITROGLYCERIN SL TABS 0.4 MG TAB SUBLINGUAL PRN (11:05)
[2019-07-19] MEDS ORDERED: HYDROcodone/APAP 10-325MG 1 EACH TAB PO PRN (11:05)
[2019-07-19] MEDS ORDERED: clonazePAM 0.5 MG TAB PO PRN (11:05)
[2019-07-19 11:28] LABS: Glucose,Whole Blood 181 mg/dL (75-99)
[2019-07-19] MEDS: PANTOPRAZOLE 40 MG TABLET PO SCH (11:46)
[2019-07-19] MEDS: ARTIFICIAL TEARS-HYPROMELLOSE DROPS 15 ML BTL BOTH EYES SCH ×2 (11:47→21:05)
[2019-07-19] MEDS: ANASTROZOLE 1 MG TAB PO SCH (12:32)
[2019-07-19] MEDS: ASPIRIN 81 MG PO SCH (12:32)
[2019-07-19] MEDS ORDERED: KETOROLAC 30 MG/ML 1 ML VIAL IVP PRN (13:30)
[2019-07-19] MEDS ORDERED: LORazepam 2 MG/ML INJ IV STA (13:44)
--- NOTE | 2019-07-19 14:42 | P.HPIM ---
History of Present Illness Patient is a 69-year-old female was sent in from assisted for altered mental status and twitching. Patient appears to be severely encephalopathic and unable to get any history from the patient although patient doesn't have fever chest x- ray did not show pneumonia he is not significant for UTI urine drug screen is positive for opiates patient uses [place] and Flexeril as an outpatient along with Klonopin. Because of significant to be changing and Klonopin as patient received 1 dose of Ativan by neurology for better EEG reading. I do not know patient's baseline mental status. Patient has a legal guardian and is a assisted resident. Review of Systems Unable to obtain due to her clinical condition Past Medical History Past Medical History: Cancer, Heart Failure, COPD, Diabetes Mellitus, Fibromyalgia, Hyperlipidemia, Hypertension, Renal Disease, Rheumatoid Arthritis (RA), Seizure Disorder, Supraventricular Tachycardia (SVT) Additional Past Medical History / Comment(s): IDDM type II, neuropathy bilateral legs/feet and hands, past cellulitis leg, R breast cancer with surgery and chemo, seizures with last time "years" ago, UTI, CKD, UTIs, chronic anemiaDM Type II. Recent dental extraction (all teeth from lower jaw 11/2017) History of Any Multi-Drug Resistant Organisms: VRE Date of last positivie culture/infection: 05/11/18 MDRO Source:: VRE URINE Past Surgical History: Adenoidectomy, Appendectomy, Breast Surgery, Cholecystectomy, Hysterectomy, Orthopedic Surgery, Tonsillectomy, Tubal Ligation Additional Past Surgical History / Comment(s): masectomy right, ganglion cyst right hand, total hysterectomy (hx of tubal pregnancies), lower teeth extracted. Past Anesthesia/Blood Transfusion Reactions: No Reported Reaction Past Psychological History: Anxiety, Depression Smoking Status: Former smoker Past Alcohol Use History: None Reported Past Drug Use History: None Reported - Past Family History Father Family Medical History: Cancer, CVA/TIA Additional Family Medical History / Comment(s): 2000 from lung cancer Mother Family Medical History: Cancer, Dementia Additional Family Medical History / Comment(s): 2014 at age 86. Oral & Breast cancer Brother(s) Family Medical History: Asthma, Diabetes Mellitus, Fibromyalgia, Osteoarthritis (OA) Additional Family Medical History / Comment(s): Obesity. Joint replacements Medications and Allergies Home Medications Medication Instructions Recorded Confirmed Type Anastrozole [Arimidex] 1 mg PO DAILY@89909/30/14 07/19/19 History Aspirin 81 mg PO DAILY@89902/20/18 07/19/19 History Nitroglycerin Sl Tabs [Nitrostat] 0.4 mg SUBLINGUAL Q5M PRN tab 02/28/18 07/19/19 Rx Sennosides [Senna] 8.6 mg PO BID@0900,209904/02/18 07/19/19 History Insulin Lispro [humaLOG Kwikpen] See Protocol SQ ACHS 06/06/18 07/19/19 History Darbepoetin Gurwinder [Aranesp] 40 mcg SQ TH 07/02/18 07/19/19 History Pantoprazole [Protonix] 40 mg PO DAILY@89907/02/18 07/19/19 History Ferrous Sulfate [Feosol] 325 mg PO DAILY@89908/16/18 07/19/19 History Metoprolol Tartrate [Lopressor] 25 mg PO HS@209908/16/18 07/19/19 History Metoprolol Tartrate [Lopressor] 50 mg PO DAILY@89908/16/18 07/19/19 History Potassium Chloride ER [K-Dur 10] 10 meq PO DAILY@89908/16/18 07/19/19 History Furosemide [Lasix] 40 mg PO DAILY@89912/07/18 07/19/19 History HYDROcodone/APAP 10-325MG [[place] 1 tab PO Q6H PRN 12/07/18 07/19/19 History 10-325] Insulin Glargine,Hum.rec.anlog 5 unit SQ HS@209912/07/18 07/19/19 History [Lantus Solostar] Polyvinyl Alcohol/Povidone 1 drop BOTH EYES BID@0900,209912/07/18 07/19/19 History [Freshkote] Cyclobenzaprine [Flexeril] 5 mg PO TID@0900,1600,209907/19/19 07/19/19 History Ergocalciferol (Vitamin D2) 50,000 unit PO Q14D@1300 07/19/19 07/19/19 History [Drisdol] Gabapentin [Neurontin] 100 mg PO BID@1800,209907/19/19 07/19/19 History Gabapentin [Neurontin] 200 mg PO DAILY@0900 07/19/19 07/19/19 History clonazePAM [KlonoPIN] 0.25 mg PO DAILY PRN 07/19/19 07/19/19 History Allergies Allergy/AdvReac Type Severity Reaction Status Date / Time cephalexin [From Keflex] Allergy Unknown Verified 07/19/19 08:59 duloxetine [From Cymbalta] Allergy Unknown Verified 07/19/19 08:59 Penicillins Allergy Rash/Hives Verified 07/19/19 08:59 codeine AdvReac Nausea & Verified 07/19/19 08:59 Vomiting phenobarbital AdvReac Unknown Verified 07/19/19 08:59 phenytoin sodium AdvReac Unknown Verified 07/19/19 08:59 [From Dilantin] phenytoin sodium extended AdvReac Unknown Verified 07/19/19 08:59 [From Dilantin] primidone [From Mysoline] AdvReac Unknown Verified 07/19/19 08:59 Physical Exam Vitals: Vital Signs Temp Pulse Pulse Resp BP BP Pulse Ox 07/19/19 11:55 104 H 185/98 07/19/19 07:00 97.5 F L 93 16 168/99 98 07/19/19 01:34 98.1 F 88 18 166/95 96 07/18/19 23:47 91 16 163/84 97 07/18/19 21:47 98.4 F 89 16 185/89 97 Intake and Output 07/18/19 07/19/19 07/19/19 22:59 06:59 14:59 Output Total 850 Balance -850 Output: Urine 850 Other: Weight 117.934 kg 117.934 kg PHYSICAL EXAMINATION: GENERAL: Significant twitching patient is basically nonverbal unable to get any history from the patient significant diffuse thrombus HEENT: Pupils are round and equally reacting to light. EOMI. No scleral icterus. No conjunctival pallor. Normocephalic, atraumatic. No pharyngeal erythema. No thyromegaly. Dry Mucous membranes CARDIOVASCULAR: S1 and S2 present. No murmurs, rubs, or gallops. PULMONARY: Chest is clear to auscultation, no wheezing or crackles. ABDOMEN: Soft, nontender, nondistended, normoactive bowel sounds. No palpable organomegaly. MUSCULOSKELETAL: No joint swelling or deformity. EXTREMITIES: No cyanosis, clubbing, or pedal edema. NEUROLOGICAL: Able to assess due to her clinical condition SKIN: No rashes. Results CBC & Chem 7: 07/18/19 22:05 07/18/19 22:05 Labs: Abnormal Lab Results - Last 24 Hours (Table) 07/18/19 07/18/19 07/18/19 Range/Units 22:05 22:05 22:05 WBC 3.3 L (3.8-10.6) k/uL RBC 3.41 L (3.80-5.40) m/uL Hgb 10.2 L (11.4-16.0) gm/dL Hct 31.5 L (34.0-46.0) % RDW 15.6 H (11.5-15.5) % Plt Count 69 L (150-450) k/uL Lymphocytes # (Manual) 0.69 L (1.0-4.8) k/uL VBG pH 7.48 H (7.31-7.41) VBG pCO2 34 L (37-51) mmHg BUN 33 H (7-17) mg/dL Glucose 162 H (74-99) mg/dL POC Glucose (mg/dL) (75-99) mg/dL Total Bilirubin 1.4 H (0.2-1.3) mg/dL Urine Opiates Screen (NotDetected) 07/18/19 07/19/19 07/19/19 Range/Units 23:10 03:02 06:52 WBC (3.8-10.6) k/uL RBC (3.80-5.40) m/uL Hgb (11.4-16.0) gm/dL Hct (34.0-46.0) % RDW (11.5-15.5) % Plt Count (150-450) k/uL Lymphocytes # (Manual) (1.0-4.8) k/uL VBG pH (7.31-7.41) VBG pCO2 (37-51) mmHg BUN (7-17) mg/dL Glucose (74-99) mg/dL POC Glucose (mg/dL) 176 H 199 H (75-99) mg/dL Total Bilirubin (0.2-1.3) mg/dL Urine Opiates Screen Detected H (NotDetected) 07/19/19 Range/Units 11:26 WBC (3.8-10.6) k/uL RBC (3.80-5.40) m/uL Hgb (11.4-16.0) gm/dL Hct (34.0-46.0) % RDW (11.5-15.5) % Plt Count (150-450) k/uL Lymphocytes # (Manual) (1.0-4.8) k/uL VBG pH (7.31-7.41) VBG pCO2 (37-51) mmHg BUN (7-17) mg/dL Glucose (74-99) mg/dL POC Glucose (mg/dL) 181 H (75-99) mg/dL Total Bilirubin (0.2-1.3) mg/dL Urine Opiates Screen (NotDetected) Thrombosis Risk Factor Assmnt - Choose All That Apply Any of the Below Risk Factors Present?: Yes Each Factor Represents 1 point: Obesity (BMI >25), Swollen legs (current) Each Risk Factor Represents 2 Points: Age 61-74 years Thrombosis Risk Factor Assessment Total Risk Factor Score: 4 Thrombosis Risk Factor Assessment Level: Moderate Risk Assessment and Plan Plan: -Altered mental status, twitching and clonus: Most probably toxic encephalopathy from medications, Flexeril, [place], gabapentin teen and Klonopin was discontinued and patient will be monitored patient is undergoing EEG neurology evaluated the patient is no evidence of sepsis -Possible dehydration for which patient was started on IV fluids and Lasix will be held. had normal ejection fraction the past without any evidence of heart failure -COPD without any acute exacerbation -Hyperlipidemia Hypertension -History of SVT in the past sign-history of seizures in the past years ago no seizures recently not been antiseizure medications -DVT prophylaxis with Lovenox
[2019-07-19] MEDS: METOPROLOL TARTRATE 50 MG TAB PO SCH (15:08)
[2019-07-19] MEDS ORDERED: levETIRAcetam IV 1,000 MG in SALINE 1 100ML.BAG IVPB STA (15:29)
--- NOTE | 2019-07-19 15:31 | P.CNNES ---
History of Present Illness Consult date: 07/19/19 Requesting physician: Guy Griffith Reason for Consult: Altered mental status History of Present Illness: Patient is a 69-year-old female [facility] evaluation of altered mental status and twitching. EMS reported that patient is prescribed Klonopin when necessary however it makes her very somnolent. She has been getting Klonopin [id number]. Yesterday on the day of admission, they noticed some twitching so prompted them to call EMS for transport to ER. Her medication list lists about clonazepam 0.25 mg daily when necessary. Patient is also on Neurontin 200 mg every morning and 100 mg at 6 and 9 PM. Her blood pressure on arrival was 185/89, pulse rate 89 and temperature 98.4 I called the prison and spoke to the nurse who was taking care of Tawny. She states that patient was getting Klonopin 0.25 mg twice a day when necessary but was getting it every morning. The nurse does remember giving her Klonopin 0.25 mg yesterday at 1 PM. The nurse also reported that patient is wheelchair bound. She can roll herself from bed to the chair, in and out of the wheel chair. Otherwise she is completely alert and oriented 4, continent of urine. She mentioned that patient has not been acting like herself for last 2 days. However on the day of admission, she became significantly worse, and was twitching in her upper body when she was awake. When she was asleep, she would not be twitching. The nurse also mentioned that patient would twitch off and on slightly for a long time, but nothing that started yesterday. Patient underwent Computed tomography scan of head showed mild atrophy, appropriate for age. No acute intracranial process. EKG shows normal sinus rhythm with left axis deviation. Patient had an MRI of brain with and without contrast on 08/20/2018 for "seizure/metabolic encephalopathy". It showed mild generalized atrophy and mild to moderate patchy changes of chronic small vessel ischemic disease. No acute process. Patient had a 2-D echo on 04/03/2018, which revealed morbid obesity. Left radicular size is normal. Mild concentric LVH. EF is 50-55%. There is that her dog sickled/dyssynergy except for motion consistent with right ventricle volume overload and/or elevated right ventricular end-diastolic pressure. The right ventricle is severely enlarged. Left atrial size is normal. Mild aortic stenosis. Patient's blood test shows WBC 3.3 hemoglobin 10.2 and platelets are 69. Chem-7 is normal. Liver panel, UA negative, urine drug screen positive for opiates, negative for benzodiazepine. Patient apparently has history of seizure disorder, but has not had seizures for long time. Review of Systems ROS unobtainable: due to mental status Past Medical History Past Medical History: Cancer, Heart Failure, COPD, Diabetes Mellitus, Fibromyalgia, Hyperlipidemia, Hypertension, Renal Disease, Rheumatoid Arthritis (RA), Seizure Disorder, Supraventricular Tachycardia (SVT) Additional Past Medical History / Comment(s): IDDM type II, neuropathy bilateral legs/feet and hands, past cellulitis leg, R breast cancer with surgery and chemo, seizures with last time "years" ago, UTI, CKD, UTIs, chronic anemiaDM Type II. Recent dental extraction (all teeth from lower jaw 11/2017) History of Any Multi-Drug Resistant Organisms: VRE Date of last positivie culture/infection: 05/11/18 MDRO Source:: VRE URINE Past Surgical History: Adenoidectomy, Appendectomy, Breast Surgery, Cholecystectomy, Hysterectomy, Orthopedic Surgery, Tonsillectomy, Tubal Ligation Additional Past Surgical History / Comment(s): masectomy right, ganglion cyst right hand, total hysterectomy (hx of tubal pregnancies), lower teeth extracted. Past Anesthesia/Blood Transfusion Reactions: No Reported Reaction Past Psychological History: Anxiety, Depression Smoking Status: Former smoker Past Alcohol Use History: None Reported Past Drug Use History: None Reported - Past Family History Father Family Medical History: Cancer, CVA/TIA Additional Family Medical History / Comment(s): 2000 from lung cancer Mother Family Medical History: Cancer, Dementia Additional Family Medical History / Comment(s): 2014 at age 86. Oral & Breast cancer Brother(s) Family Medical History: Asthma, Diabetes Mellitus, Fibromyalgia, Osteoarthritis (OA) Additional Family Medical History / Comment(s): Obesity. Joint replacements Medications and Allergies Home Medications Medication Instructions Recorded Confirmed Type Anastrozole [Arimidex] 1 mg PO DAILY@0900 09/30/14 07/19/19 History Aspirin 81 mg PO DAILY@0900 02/20/18 07/19/19 History Nitroglycerin Sl Tabs [Nitrostat] 0.4 mg SUBLINGUAL Q5M PRN tab 02/28/18 07/19/19 Rx Sennosides [Senna] 8.6 mg PO BID@0900,209904/02/18 07/19/19 History Insulin Lispro [humaLOG Kwikpen] See Protocol SQ ACHS 06/06/18 07/19/19 History Darbepoetin Gurwinder [Aranesp] 40 mcg SQ TH 07/02/18 07/19/19 History Pantoprazole [Protonix] 40 mg PO DAILY@89907/02/18 07/19/19 History Ferrous Sulfate [Feosol] 325 mg PO DAILY@89908/16/18 07/19/19 History Metoprolol Tartrate [Lopressor] 25 mg PO HS@209908/16/18 07/19/19 History Metoprolol Tartrate [Lopressor] 50 mg PO DAILY@89908/16/18 07/19/19 History Potassium Chloride ER [K-Dur 10] 10 meq PO DAILY@89908/16/18 07/19/19 History Furosemide [Lasix] 40 mg PO DAILY@89912/07/18 07/19/19 History HYDROcodone/APAP 10-325MG [[place] 1 tab PO Q6H PRN 12/07/18 07/19/19 History 10-325] Insulin Glargine,Hum.rec.anlog 5 unit SQ HS@209912/07/18 07/19/19 History [Lantus Solostar] Polyvinyl Alcohol/Povidone 1 drop BOTH EYES BID@0900,209912/07/18 07/19/19 History [Freshkote] Cyclobenzaprine [Flexeril] 5 mg PO TID@0900,1600,209907/19/19 07/19/19 History Ergocalciferol (Vitamin D2) 50,000 unit PO Q14D@1300 07/19/19 07/19/19 History [Drisdol] Gabapentin [Neurontin] 100 mg PO BID@1800,209907/19/19 07/19/19 History Gabapentin [Neurontin] 200 mg PO DAILY@0900 07/19/19 07/19/19 History clonazePAM [KlonoPIN] 0.25 mg PO DAILY PRN 07/19/19 07/19/19 History Allergies Allergy/AdvReac Type Severity Reaction Status Date / Time cephalexin [From Keflex] Allergy Unknown Verified 07/19/19 08:59 duloxetine [From Cymbalta] Allergy Unknown Verified 07/19/19 08:59 Penicillins Allergy Rash/Hives Verified 07/19/19 08:59 codeine AdvReac Nausea & Verified 07/19/19 08:59 Vomiting phenobarbital AdvReac Unknown Verified 07/19/19 08:59 phenytoin sodium AdvReac Unknown Verified 07/19/19 08:59 [From Dilantin] phenytoin sodium extended AdvReac Unknown Verified 07/19/19 08:59 [From Dilantin] primidone [From Mysoline] AdvReac Unknown Verified 07/19/19 08:59 Physical Examination - Vital Signs Vital Signs: Vital Signs Temp Pulse Pulse Resp BP BP Pulse Ox 07/19/19 11:55 104 H 185/98 07/19/19 07:00 97.5 F L 93 16 168/99 98 07/19/19 01:34 98.1 F 88 18 166/95 96 07/18/19 23:47 91 16 163/84 97 07/18/19 21:47 98.4 F 89 16 185/89 97 Intake and Output 07/18/19 07/19/19 07/19/19 22:59 06:59 14:59 Output Total 850 Balance -850 Output: Urine 850 Other: Weight 117.934 kg 117.934 kg On examination patient is an elderly female, who is laying in the bed, moaning, groaning. Patient would not answer to any question, or tell her name. Her pupils are round and reactive to light. Visual razo could not be tested. Her face is symmetric. Patient would not protrude her tongue. Hearing, shoulder shrug could not be tested. Patient withdraws to painful stimuli on all 4 extremities and starts moaning much more louder. Tone is equal in both upper limbs. Reflexes are 1+ and patient has bilateral Babinski. Cerebellar functions could not be tested. Patient is nonambulatory. Results - Laboratory Findings CBC and BMP: 07/18/19 22:05 07/18/19 22:05 Abnormal Lab Findings: Abnormal Labs 07/18/19 07/18/19 07/18/19 22:05 22:05 22:05 WBC 3.3 L RBC 3.41 L Hgb 10.2 L Hct 31.5 L RDW 15.6 H Plt Count 69 L Lymphocytes # (Manual) 0.69 L VBG pH 7.48 H VBG pCO2 34 L BUN 33 H Glucose 162 H POC Glucose (mg/dL) Total Bilirubin 1.4 H Urine Opiates Screen 07/18/19 07/19/19 07/19/19 23:10 03:02 06:52 WBC RBC Hgb Hct RDW Plt Count Lymphocytes # (Manual) VBG pH VBG pCO2 BUN Glucose POC Glucose (mg/dL) 176 H 199 H Total Bilirubin Urine Opiates Screen Detected H 07/19/19 11:26 WBC RBC Hgb Hct RDW Plt Count Lymphocytes # (Manual) VBG pH VBG pCO2 BUN Glucose POC Glucose (mg/dL) 181 H Total Bilirubin Urine Opiates Screen Assessment and Plan Assessment: * Acute mental status change with significant encephalopathy, unclear etiology. No significant abnormalities noted on laboratory testing. Patient had been receiving her low-dose Klonopin daily, not ran out of it. EEG revealed background slowing along with presence of excessive triphasic waves and some sharp-appearing waves consistent with encephalopathy with seizure tendency. Rule out status epilepticus. The EEG improved after giving Ativan 0.5 mg IV. Patient does have history of seizure disorder, has not had seizure for a long time, currently not on any antiepileptic medication. Suspect reappearance of underlying seizure disorder. * Hypertension * Diabetes * COPD Plan: * Patient's EEG was significantly abnormal with evidence of generalized background slowing, significant triphasic waves, and some possible epileptiform activity. Rule out status epilepticus. This high amplitude sharply appearing activity improved after patient was given Ativan 0.5 mg IV. At present patient is asleep not having any twitching/seizure type activity * Patient will be given Ativan 0.5 mg IV every 8 hours when necessary seizure activity. * Patient will be started on Keppra 1000 g IV twice a day, first dose stat. (Would avoid Dilantin because of thrombocytopenia.) * Repeat EEG in the morning. * If no improvement in the repeat EEG, then would recommend MRI of the brain and lumbar puncture. * Repeat CBC and basic metabolic panel in a.m. Patient has no fever, therefore TTP less likely. Patient does have chronic thrombocytopenia. * Neurology coverage not available on the weekend. Please call or perfect serve over the weekend if any questions.
[2019-07-19] MEDS ORDERED: CYCLOBENZAPRINE 5 MG TAB PO SCH (16:00)
[2019-07-19 16:46] LABS: Glucose,Whole Blood 176 mg/dL (75-99)
[2019-07-19 20:20] LABS: Glucose,Whole Blood 173 mg/dL (75-99)
[2019-07-19] MEDS ORDERED: INSULIN DETEMIR (LEVEMIR) 100 UNIT/ML SYR SQ SCH (21:00)
[2019-07-19] MEDS ORDERED: METOPROLOL TARTRATE 25 MG TAB PO SCH (21:00)
[2019-07-19] MEDS ORDERED: levETIRAcetam IV 1,000 MG in SALINE 1 100ML.BAG IVPB SCH (21:00)
[2019-07-19] MEDS: SENNOSIDES 8.6 MG TAB PO SCH (21:01)
[2019-07-19] MEDS: LORazepam 2 MG/ML INJ IV PRN (21:04)
[2019-07-19] MEDS: levETIRAcetam IV 1,000 MG in SALINE 1 100ML.BAG IVPB SCH (21:05)
[2019-07-20] MEDS ORDERED: LORazepam 2 MG/ML INJ IV SCH
[2019-07-20 00:09] LABS: Glucose,Whole Blood 160 mg/dL (75-99)
[2019-07-20] MEDS: SODIUM CHLORIDE 0.9% 1,000 ML IV SCH ×2 (02:54→02:55)
[2019-07-20] MEDS: INSULIN ASPART (NovoLOG) 100 UNIT/ML VIAL SQ SCH ×3 (02:54→14:09)
[2019-07-20 03:05] LABS: Basophils % (A) 0 %; Eosinophils # (A) 0.1 k/uL (0-0.7); Eosinophils % (A) 2 %; HCT 31.7 % (34.0-46.0); HGB 10.7 gm/dL (11.4-16.0); Hypochromasia Slight; Lymphocytes # (A) 1.1 k/uL (1.0-4.8); Lymphocytes % (A) 20 %; MCH 31.9 pg (25.0-35.0); MCHC 33.9 g/dL (31.0-37.0); MCV 94.1 fL (80.0-100.0); Mean Platelet Volume 9.2; Monocytes # (A) 0.5 k/uL (0-1.0); Monocytes % (A) 9 %; Neutrophils # (A) 3.7 k/uL (1.3-7.7); Neutrophils % (A) 68 %; Poikilocytosis Slight; RBC 3.37 m/uL (3.80-5.40); RDW 15.8 % (11.5-15.5); WBC 5.5 k/uL (3.8-10.6)
[2019-07-20 03:12] LABS: Platelet Count 89 k/uL (150-450)
[2019-07-20 03:15] LABS: African American GFR (CKD) >90 (>60 ml/min/1.73 sqM); Anion Gap 8 mmol/L; Blood Urea Nitrogen 26 mg/dL (7-17); Calcium 9.1 mg/dL (8.4-10.2); Carbon Dioxide 21 mmol/L (22-30); Chloride 107 mmol/L (98-107); Glucose 144 mg/dL (74-99); Non-African American GFR(CKD) 80 (>60 ml/min/1.73 sqM); Potassium 3.7 mmol/L (3.5-5.1); Sodium 136 mmol/L (137-145)
--- NOTE | 2019-07-20 06:11 | EEG ---
ELECTROENCEPHALOGRAM REPORT DATE OF SERVICE: 07/19/2019 PREAMBLE: This is a 69-year-old female brought to the hospital for altered mental status and having some tremors. This study is performed to evaluate for any epileptiform activity. EEG FINDINGS: This is a 21 channel portable EEG recording in a patient utilizing 10-20 international system with bipolar and referential montages. The recording starts and continues with presence of bilaterally symmetric, moderate to high amplitude, 2-3 hertz delta intermixed with some theta activity seen in bihemispheric region. There is almost continuous high amplitude triphasic type waves seen in the bihemispheric region. At times, there is sharp wave or spike-like activity seen with phase reversal in central electrodes. The patient was given Ativan at last quarter of the study. About 3 minutes after injection of Ativan, there was noted improvement in this high amplitude triphasic/sharp wave activity. Different stages of sleep were not seen. IMPRESSION: Severely abnormal EEG due to: 1) Background slowing consistent with encephalopathy. 2) Continuous presence of high amplitude triphasic type waves, which at times had sharp or spikelike quality with phase reversals at central electrodes. This is suggestive of severe toxic metabolic encephalopathy, with tendency for seizures. Suggest placement on antiepileptic medication and repeat study, if clinically indicated. MMODL / IJN: [id number] / MTDD
[2019-07-20 06:15] LABS: Glucose,Whole Blood 144 mg/dL (75-99)
[2019-07-20 07:55] LABS: Glucose,Whole Blood 156 mg/dL (75-99)
[2019-07-20] MEDS: LORazepam 2 MG/ML INJ IV PRN (08:01)
[2019-07-20] MEDS: ANASTROZOLE 1 MG TAB PO SCH (08:04)
[2019-07-20] MEDS: ARTIFICIAL TEARS-HYPROMELLOSE DROPS 15 ML BTL BOTH EYES SCH (08:04)
[2019-07-20] MEDS: PANTOPRAZOLE 40 MG TABLET PO SCH (08:04)
[2019-07-20] MEDS: ASPIRIN 81 MG PO SCH (08:04)
[2019-07-20] MEDS: METOPROLOL TARTRATE 50 MG TAB PO SCH (08:05)
[2019-07-20] MEDS: SENNOSIDES 8.6 MG TAB PO SCH (08:05)
[2019-07-20] MEDS ORDERED: levETIRAcetam IV 1,000 MG in SALINE 1 100ML.BAG IVPB STA (08:27)
[2019-07-20] MEDS: levETIRAcetam IV 1,000 MG in SALINE 1 100ML.BAG IVPB SCH (08:35)
[2019-07-20] MEDS ORDERED: cloNIDine 0.1 MG/24HR PATCH TRANSDERM SCH (09:00)
[2019-07-20] MEDS ORDERED: FUROSEMIDE 40 MG TAB PO SCH (09:00)
[2019-07-20] MEDS ORDERED: FERROUS SULFATE 325 MG TAB PO SCH (09:00)
[2019-07-20 10:19] VITALS: BP 133/82; PULSE 102; RESP 19; TEMP 99
[2019-07-20 12:12] LABS: Glucose,Whole Blood 151 mg/dL (75-99)
--- NOTE | 2019-07-20 13:08 | P.DS ---
Providers Date of admission: 07/18/19 23:59 Attending physician: Noah Darnell Consults: 07/19/19 12:04 Consult Physician Routine Consulting Provider: Orestes Dunn Consult Reason/Comments: change mental status Do you want consulting provider notified?: Yes Primary care physician: Handy Delcid [facility] Course: 69-year-old the female was sent in from jail for altered mental status twitching, patient washaving myoclonic jerks on admission.patient the usually takes Klonopin 0.25 mg as needed for urine drug screen is negative initially believed that patient may be having a Klonopin withdrawal seizures although patient doesn't take this medications on regular basis. Patient is mostly wheelchair bound usually alert and oriented 4 but does have urinary incontinence. Patient has been confused l2 days before admission. Patient was unable to provide history since admission patient was unresponsive and was twitching neurology was consulted neurology evaluated the patient. Patient the doesn't have any evidence of sepsis urine analysis was negative there is no evidence of a pneumonia. Patient had an EEG yesterday which showed severe encephalopathy with the significant spikes consistent with possible seizures patient was given Keppra and was started on as needed Ativan patient last received her Ativan at 9 PM yesterday patient received thousand milligrams of Keppra yesterday morning and today morning. Patient the medications that are Neurontin and [place] were discontinued because of her altered mental status today morning patient is more lethargic and barely responsive to stimuli repeat EEG was obtained results of which are still pending. Neurologist on-call is not available over the weekend and he recommended transfer for further evaluation with continuous EEG monitoring MRI and a LP. Discussed with the neurointensive is at [facility] who accepted the patient. PHYSICAL EXAMINATION: GENERAL:Patient is barely responsive to painful stimuli HEENT: Pupils are round and equally reacting to light. EOMI. No scleral icterus. No conjunctival pallor. Normocephalic, atraumatic. No pharyngeal erythema. No thyromegaly. Dry Mucous membranes CARDIOVASCULAR: S1 and S2 present. No murmurs, rubs, or gallops. PULMONARY: Chest is clear to auscultation, no wheezing or crackles. ABDOMEN: Soft, nontender, nondistended, normoactive bowel sounds. No palpable organomegaly. MUSCULOSKELETAL: No joint swelling or deformity. EXTREMITIES: No cyanosis, clubbing, or pedal edema. NEUROLOGICAL: Able to assess due to her clinical condition altered mental status: Encephalopathy can be toxic encephalopathy from medications patient has stitching and clonic activity yesterday presently barely responsive can be a postictal state patient EEG as mentioned above is consistent with severe encephalopathy with possible seizure activity. -Mild dehydration patient is on IV Lasix patient has normal ejection fraction but some concentrated left ventricular hypertrophy cannot completely rule out diastolic dysfunction patient is presently hypovolemic -COPD without any acute exacerbation -Hyperlipidemia -Hypertension -SVT patient cannot take any medications patient blood pressures also elevated because of which patient was given clonidine patch with a better controlled heart rate of about 100 patient had sinus tachycardia earlier today morning. Patient Condition at Discharge: Serious Plan - Discharge Summary New Discharge Prescriptions: No Action Anastrozole [Arimidex] 1 mg PO DAILY@0900 Aspirin 81 mg PO DAILY@0900 Nitroglycerin Sl Tabs [Nitrostat] 0.4 mg SUBLINGUAL Q5M PRN tab PRN Reason: Chest Pain Sennosides [Senna] 8.6 mg PO BID@0900,2100 Insulin Lispro [humaLOG Kwikpen] See Protocol SQ ACHS Pantoprazole [Protonix] 40 mg PO DAILY@0900 Darbepoetin Gurwinder [Aranesp] 40 mcg SQ TH Ferrous Sulfate [Feosol] 325 mg PO DAILY@0900 Metoprolol Tartrate [Lopressor] 50 mg PO DAILY@0900 Potassium Chloride ER [K-Dur 10] 10 meq PO DAILY@0900 Metoprolol Tartrate [Lopressor] 25 mg PO HS@2100 Furosemide [Lasix] 40 mg PO DAILY@0900 HYDROcodone/APAP 10-325MG [[place] 10-325] 1 tab PO Q6H PRN PRN Reason: INCREASED PAIN Insulin Glargine,Hum.rec.anlog [Lantus Solostar] 5 unit SQ HS@2100 Polyvinyl Alcohol/Povidone [Freshkote] 1 drop BOTH EYES BID@0900,2100 clonazePAM [KlonoPIN] 0.25 mg PO DAILY PRN PRN Reason: Anxiety Cyclobenzaprine [Flexeril] 5 mg PO TID@0900,1600,2100 Ergocalciferol (Vitamin D2) [Drisdol] 50,000 unit PO Q14D@1300 Gabapentin [Neurontin] 100 mg PO BID@1800,2100 Gabapentin [Neurontin] 200 mg PO DAILY@0900 Discharge Medication List Anastrozole [Arimidex] 1 mg PO DAILY@0909/30/14 [History] Aspirin 81 mg PO DAILY@89902/20/18 [History] Nitroglycerin Sl Tabs [Nitrostat] 0.4 mg SUBLINGUAL Q5M PRN tab 02/28/18 [Rx] Sennosides [Senna] 8.6 mg PO BID@09,209904/02/18 [History] Insulin Lispro [humaLOG Kwikpen] See Protocol SQ ACHS 06/06/18 [History] Darbepoetin Gurwinder [Aranesp] 40 mcg SQ TH 07/02/18 [History] Pantoprazole [Protonix] 40 mg PO DAILY@89907/02/18 [History] Ferrous Sulfate [Feosol] 325 mg PO DAILY@89908/16/18 [History] Metoprolol Tartrate [Lopressor] 25 mg PO HS@209908/16/18 [History] Metoprolol Tartrate [Lopressor] 50 mg PO DAILY@89908/16/18 [History] Potassium Chloride ER [K-Dur 10] 10 meq PO DAILY@89908/16/18 [History] Furosemide [Lasix] 40 mg PO DAILY@89912/07/18 [History] HYDROcodone/APAP 10-325MG [[place] 10-325] 1 tab PO Q6H PRN 12/07/18 [History] Insulin Glargine,Hum.rec.anlog [Lantus Solostar] 5 unit SQ HS@209912/07/18 [History] Polyvinyl Alcohol/Povidone [Freshkote] 1 drop BOTH EYES BID@0900,209912/07/18 [History] Cyclobenzaprine [Flexeril] 5 mg PO TID@0900,1600,209907/19/19 [History] Ergocalciferol (Vitamin D2) [Drisdol] 50,000 unit PO Q14D@1300 07/19/19 [History] Gabapentin [Neurontin] 100 mg PO BID@1800,209907/19/19 [History] Gabapentin [Neurontin] 200 mg PO DAILY@0900 07/19/19 [History] clonazePAM [KlonoPIN] 0.25 mg PO DAILY PRN 07/19/19 [History] Follow up Appointment(s)/Referral(s): Tom Han MD [STAFF PHYSICIAN] - 1-2 days
--- NOTE | 2019-07-20 15:11 | EEG ---
ELECTROENCEPHALOGRAM REPORT PROCEDURE DATE: 07/20/2019. ELECTROENCEPHALOGRAM (EEG) REPORT: TECHNIQUE: A routine 18 channel EEG was performed with video using the 10/20 electrode placement system. HISTORY: The patient admitted from a senior living with altered mental status and twitching. CURRENT MEDICATIONS: Aspirin, Protonix, Lopressor, insulin, Aranesp, ferrous sulfate. STUDY DURATION: 24 minutes. FINDINGS: BACKGROUND: A sustained posterior dominant rhythm was not seen. Frequencies of the posterior quadrants consisted of poorly modulated 2-3 Hz waveforms. ACTIVATION: Hyperventilation: Not performed. Photic stimulation: No driving seen. Sleep: Distinctive sleep stages not seen. ABNORMALITIES: 1. This EEG demonstrated a modified burst suppression pattern. The bursts consisted of primarily groups of triphasic waves lasting approximately 1-2 seconds. Also some individual generalized frontally predominant triphasic waves were seen. 2. The findings in #1 were by diffuse synchronous and asynchronous 2-3 hertz delta range slowing and some relative periods of electrical suppression. IMPRESSION: Abnormal EEG. This EEG demonstrates a modified burst suppression pattern. The most prominent finding though was frequent grouped triphasic waves by low frequency low amplitude delta range slowing. These findings are not epileptiform in nature. Triphasic waves can be seen in the setting of a metabolic encephalopathy. These findings indicate severe diffuse cerebral dysfunction as may be seen in a toxometabolic encephalopathy. These findings may in part be due to medication effect. No seizures were recorded. No epileptiform activity was present. Clinical correlation is recommended. MMMADELYNL / IJN: [id number] / MTDD
--- NOTE | 2019-07-22 09:26 | CDI ---
Documentation Clarification Form Date: 07/22/19 From: Debra Suazo Phone: If you have a question about this query, please contact Roseann Monsalve, Auto Emissions Technician at [phone] between 8am and 5pm. Admit Date: 07/20/19 Discharge Date: 07/20/19 Patient Name: SIRIA MILES Visit Number: [id number] ATTENTION: The Clinical Documentation Specialists (CDI) and [facility] Coding Staff appreciate your assistance in clarifying documentation. Please respond to the clarification below the line at the bottom and electronically sign. The CDI & [facility] Coding staff will review the response and follow-up if needed. Please note: Queries are made part of the Legal Health Record. If you have any questions, please contact the author of this message via ITS. Dear Dr. Noah Darnell, CKD is documented in the ed NOTE, H&P and neuro consult. History/Risk Factors: DM w CKD & neuropathy, HTN w heart failure (unknow EF), epilepsy, morbid obesity 07/17-07/19 Current BUN: 33/26 07/17-07/19 Current CR: .93/.77 07/17-07/19 Current GFR: 64/80 Treatment: IV fluids, Lopressor 2.5 mg IVP Q6HR PRN, Apresoline 10 mg IVP Q6hr PRN, In order to capture the severity of condition, please clarify the stage of the CKD, if known: CKD ruled out CKD Stage 1 (GFR > 90) CKD Stage 2 (GFR 60-89) CKD Stage 3 (GFR 30-59) CKD Stage 4 (GFR 15-29) CKD Stage 5 (GFR <15) ESRD Other, please specify Unable to determine No chronic kidney disease patient is a normal creatinine and this could is not necessary MTDD
[2019-07-25] MEDS ORDERED: DARBEPOETIN ALFA 40 MCG/0.4 ML SYRINGE SQ SCH (09:00)
== END 2019-07-20 13:51 | disposition short-term general hospital (02) | DRG 92 ==
LOC: EC 21:31 → 4SSUR 23:59 → OBSVTOIN 07-20 09:01
PROVIDERS: ADMIT Internal Medicine; ATTEND Internal Medicine
DX: G92 Toxic encephalopathy (principal); Z68.41 Body mass index [BMI] 40.0-44.9, adult; E11.40 Type 2 diabetes mellitus with diabetic neuropathy, unspecified; I11.9 Hypertensive heart disease without heart failure; I50.9 Heart failure, unspecified; G40.909 Epilepsy, unspecified, not intractable, without status epilepticus; E66.01 Morbid (severe) obesity due to excess calories; Z79.4 Long term (current) use of insulin; M06.9 Rheumatoid arthritis, unspecified; J44.9 Chronic obstructive pulmonary disease, unspecified; Z11.59 Encounter for screening for other viral diseases; T50.905A Adverse effect of unspecified drugs, medicaments and biological substances, initial encounter; E86.0 Dehydration; E78.5 Hyperlipidemia, unspecified; M79.7 Fibromyalgia; R32 Unspecified urinary incontinence; K08.409 Partial loss of teeth, unspecified cause, unspecified class; Z79.82 Long term (current) use of aspirin; Z79.811 Long term (current) use of aromatase inhibitors; Z79.899 Other long term (current) drug therapy; Z87.891 Personal history of nicotine dependence; Z87.440 Personal history of urinary (tract) infections; Z85.3 Personal history of malignant neoplasm of breast; Z90.49 Acquired absence of other specified parts of digestive tract; Z90.710 Acquired absence of both cervix and uterus; Z90.89 Acquired absence of other organs; Z98.51 Tubal ligation status; Z90.11 Acquired absence of right breast and nipple; Z92.21 Personal history of antineoplastic chemotherapy; Z92.3 Personal history of irradiation; Z86.19 Personal history of other infectious and parasitic diseases; Z98.890 Other specified postprocedural states; Z99.3 Dependence on wheelchair; Z86.59 Personal history of other mental and behavioral disorders; Z86.79 Personal history of other diseases of the circulatory system; Z88.1 Allergy status to other antibiotic agents; Z88.5 Allergy status to narcotic agent; Z88.0 Allergy status to penicillin; Z88.8 Allergy status to other drugs, medicaments and biological substances; Z82.3 Family history of stroke; Z80.1 Family history of malignant neoplasm of trachea, bronchus and lung; Z80.3 Family history of malignant neoplasm of breast; Z83.3 Family history of diabetes mellitus; Z82.5 Family history of asthma and other chronic lower respiratory diseases; Z83.49 Family history of other endocrine, nutritional and metabolic diseases; Z81.8 Family history of other mental and behavioral disorders; Z82.61 Family history of arthritis; Z82.69 Family history of other diseases of the musculoskeletal system and connective tissue
CPT/HCPCS: 36415; 51701; 70450; 80048; 80053; 80306; 81003; 82803; 85025; 93005; 95816; 95819; 96374; 99285

== ENCOUNTER 2019-08-24 12:39 | Inpatient (IN) | payer MEDICARE, OTHER ==
[2019-08-24] MEDS ORDERED: SODIUM CHLORIDE 0.9% 500 ML 500 ML IV STA (12:51)
--- NOTE | 2019-08-24 12:53 | ED ---
General Adult HPI - General Chief complaint: GI Bleed Stated complaint: GI Bleed Time Seen by Provider: 08/24/19 12:40 Source: patient, RN notes reviewed, old records reviewed Mode of arrival: ambulatory Limitations: no limitations - History of Present Illness Initial comments: This is a 69-year-old female who presents emergency department stating that she's been on lactulose for similar problem that she doesn't know exactly what it is. Patient states she's been having diarrhea. Patient states she had a maroon bowel movement earlier today and since then has been having very black bowel movements. Patient denies any abdominal pain. Patient denies any fever chills. Patient denies lightheadedness or dizziness. Patient denies any chest pain palpitations or difficulty breathing. Patient denies any headache patient denies any numbness weakness. Patient denies other symptoms in the past. Patient denies any blood thinners. - Related Data Home Medications Medication Instructions Recorded Confirmed Anastrozole [Arimidex] 1 mg PO DAILY@89909/30/14 07/19/19 Aspirin 81 mg PO DAILY@89902/20/18 07/19/19 Sennosides [Senna] 8.6 mg PO BID@0900,209904/02/18 07/19/19 Insulin Lispro [humaLOG Kwikpen] See Protocol SQ ACHS 06/06/18 07/19/19 Darbepoetin Gurwinder [Aranesp] 40 mcg SQ TH 07/02/18 07/19/19 Pantoprazole [Protonix] 40 mg PO DAILY@89907/02/18 07/19/19 Ferrous Sulfate [Feosol] 325 mg PO DAILY@89908/16/18 07/19/19 Metoprolol Tartrate [Lopressor] 25 mg PO HS@209908/16/18 07/19/19 Metoprolol Tartrate [Lopressor] 50 mg PO DAILY@89908/16/18 07/19/19 Potassium Chloride ER [K-Dur 10] 10 meq PO DAILY@89908/16/18 07/19/19 Furosemide [Lasix] 40 mg PO DAILY@89912/07/18 07/19/19 HYDROcodone/APAP 10-325MG [[place] 1 tab PO Q6H PRN 12/07/18 07/19/19 10-325] Insulin Glargine,Hum.rec.anlog 5 unit SQ HS@209912/07/18 07/19/19 [Lantus Solostar] Polyvinyl Alcohol/Povidone 1 drop BOTH EYES BID@0900,209912/07/18 07/19/19 [Freshkote] Cyclobenzaprine [Flexeril] 5 mg PO TID@0900,1600,209907/19/19 07/19/19 Ergocalciferol (Vitamin D2) 50,000 unit PO Q14D@1300 07/19/19 07/19/19 [Drisdol] Gabapentin [Neurontin] 100 mg PO BID@1800,209907/19/19 07/19/19 Gabapentin [Neurontin] 200 mg PO DAILY@0900 07/19/19 07/19/19 clonazePAM [KlonoPIN] 0.25 mg PO DAILY PRN 07/19/19 07/19/19 Previous Rx's Medication Instructions Recorded Nitroglycerin Sl Tabs [Nitrostat] 0.4 mg SUBLINGUAL Q5M PRN tab 02/28/18 Allergies Allergy/AdvReac Type Severity Reaction Status Date / Time cephalexin [From Keflex] Allergy Unknown Verified 07/19/19 08:59 duloxetine [From Cymbalta] Allergy Unknown Verified 07/19/19 08:59 Penicillins Allergy Rash/Hives Verified 07/19/19 08:59 codeine AdvReac Nausea & Verified 07/19/19 08:59 Vomiting phenobarbital AdvReac Unknown Verified 07/19/19 08:59 phenytoin sodium AdvReac Unknown Verified 07/19/19 08:59 [From Dilantin] phenytoin sodium extended AdvReac Unknown Verified 07/19/19 08:59 [From Dilantin] primidone [From Mysoline] AdvReac Unknown Verified 07/19/19 08:59 Review of Systems ROS Statement: Those systems with pertinent positive or pertinent negative responses have been documented in the HPI. ROS Other: All systems not noted in ROS Statement are negative. Past Medical History Past Medical History: Cancer, Heart Failure, COPD, Diabetes Mellitus, Fibromyalgia, Hyperlipidemia, Hypertension, Renal Disease, Rheumatoid Arthritis (RA), Seizure Disorder, Supraventricular Tachycardia (SVT) Additional Past Medical History / Comment(s): IDDM type II, neuropathy bilateral legs/feet and hands, past cellulitis leg, R breast cancer with surgery and chemo, seizures with last time "years" ago, UTI, CKD, UTIs, chronic anemiaDM Type II. dental extraction (all teeth from lower jaw 11/2017) History of Any Multi-Drug Resistant Organisms: VRE Date of last positivie culture/infection: 05/11/18 MDRO Source:: VRE URINE Past Surgical History: Adenoidectomy, Appendectomy, Breast Surgery, Ch olecystectomy, Hysterectomy, Orthopedic Surgery, Tonsillectomy, Tubal Ligation Additional Past Surgical History / Comment(s): masectomy right, ganglion cyst right hand, total hysterectomy (hx of tubal pregnancies), lower teeth extracted. Past Anesthesia/Blood Transfusion Reactions: No Reported Reaction Past Psychological History: Anxiety, Depression Smoking Status: Former smoker Past Alcohol Use History: None Reported Past Drug Use History: None Reported - Past Family History Father Family Medical History: Cancer, CVA/TIA Additional Family Medical History / Comment(s): 2000 from lung cancer Mother Family Medical History: Cancer, Dementia Additional Family Medical History / Comment(s): 2014 at age 86. Oral & Breast cancer Brother(s) Family Medical History: Asthma, Diabetes Mellitus, Fibromyalgia, Osteoarthritis (OA) Additional Family Medical History / Comment(s): Obesity. Joint replacements General Exam - General Exam Comments Initial Comments: GENERAL: Patient is well-developed and well-nourished. Patient is nontoxic and well- hydrated and is in no acute distress. ENT: Neck is soft and supple. No significant lymphadenopathy is noted. Oropharynx is clear. Moist mucous membranes. Neck has full range of motion without eliciting any pain. EYES: The sclera were anicteric and conjunctiva were pink and moist. Extraocular movements were intact and pupils were equal round and reactive to light. Eyelids were unremarkable. PULMONARY: Unlabored respirations. Good breath sounds bilaterally. No audible rales rhonchi or wheezing was noted. CARDIOVASCULAR: There is a regular rate and rhythm without any murmurs gallops or rubs. ABDOMEN: Soft and nontender with normal bowel sounds. No palpable organomegaly was noted. There is no palpable pulsatile mass. Patient is morbidly obese. RECTAL: On rectal exam there was dark black stool SKIN: Skin is clear with no lesions or rashes and otherwise unremarkable. NEUROLOGIC: Patient is alert and oriented x3. Cranial nerves II through XII are grossly intact. Motor and sensory are also intact. Normal speech, volume and content. Symmetrical smile. MUSCULOSKELETAL: Normal extremities with adequate strength and full range of motion. No lower extremity swelling or edema. No calf tenderness. LYMPHATICS: No significant lymphadenopathy is noted PSYCHIATRIC: Normal psychiatric evaluation. Limitations: no limitations Course Vital Signs 08/24/19 12:41 Temperature 98.1 F Pulse Rate 75 Respiratory 18 Rate Blood Pressure 135/59 O2 Sat by Pulse 97 Oximetry Medical Decision Making - Medical Decision Making Patient's occult hemoglobin was positive and patient's hemoglobin had dropped down. I spoke with because she agreed to admit the patient admitted the patient I did serial CBCs and I consult the GI. - Lab Data Result diagrams: 08/24/19 13:08 08/24/19 13:08 Lab Results 08/24/19 08/24/19 08/24/19 Range/Units 13:08 13:08 13:08 WBC 4.9 (3.8-10.6) k/uL RBC 2.99 L (3.80-5.40) m/uL Hgb 9.3 L (11.4-16.0) gm/dL Hct 28.4 L (34.0-46.0) % MCV 94.9 (80.0-100.0) fL MCH 31.0 (25.0-35.0) pg MCHC 32.6 (31.0-37.0) g/dL RDW 16.3 H (11.5-15.5) % Plt Count 103 L (150-450) k/uL Neutrophils % 72 % Lymphocytes % 16 % Monocytes % 6 % Eosinophils % 3 % Basophils % 1 % Neutrophils # 3.6 (1.3-7.7) k/uL Lymphocytes # 0.8 L (1.0-4.8) k/uL Monocytes # 0.3 (0-1.0) k/uL Eosinophils # 0.1 (0-0.7) k/uL Basophils # 0.0 (0-0.2) k/uL Hypochromasia Slight Poikilocytosis Slight Anisocytosis Slight PT 10.4 (9.0-12.0) sec INR 1.0 (<1.2) APTT 23.1 (22.0-30.0) sec Sodium (137-145) mmol/L Potassium (3.5-5.1) mmol/L Chloride (98-107) mmol/L Carbon Dioxide (22-30) mmol/L Anion Gap mmol/L BUN (7-17) mg/dL Creatinine (0.52-1.04) mg/dL Est GFR (CKD-EPI)AfAm (>60 ml/min/1.73 sqM) Est GFR (CKD-EPI)NonAf (>60 ml/min/1.73 sqM) Glucose (74-99) mg/dL Calcium (8.4-10.2) mg/dL Magnesium (1.6-2.3) mg/dL Total Bilirubin (0.2-1.3) mg/dL AST (14-36) U/L ALT (4-34) U/L Alkaline Phosphatase (38-126) U/L Ammonia (<30) umol/L Troponin I (0.000-0.034) ng/mL Total Protein (6.3-8.2) g/dL Albumin (3.5-5.0) g/dL Stool Occult Blood Positive H (Negative) Blood Type Blood Type Recheck Bld Type Recheck Status Antibody Screen Spec Expiration Date 08/24/19 08/24/19 08/24/19 Range/Units 13:08 13:08 13:08 WBC (3.8-10.6) k/uL RBC (3.80-5.40) m/uL Hgb (11.4-16.0) gm/dL Hct (34.0-46.0) % MCV (80.0-100.0) fL MCH (25.0-35.0) pg MCHC (31.0-37.0) g/dL RDW (11.5-15.5) % Plt Count (150-450) k/uL Neutrophils % % Lymphocytes % % Monocytes % % Eosinophils % % Basophils % % Neutrophils # (1.3-7.7) k/uL Lymphocytes # (1.0-4.8) k/uL Monocytes # (0-1.0) k/uL Eosinophils # (0-0.7) k/uL Basophils # (0-0.2) k/uL Hypochromasia Poikilocytosis Anisocytosis PT (9.0-12.0) sec INR (<1.2) APTT (22.0-30.0) sec Sodium 136 L (137-145) mmol/L Potassium 5.6 H (3.5-5.1) mmol/L Chloride 103 (98-107) mmol/L Carbon Dioxide 22 (22-30) mmol/L Anion Gap 11 mmol/L BUN 46 H (7-17) mg/dL Creatinine 1.54 H (0.52-1.04) mg/dL Est GFR (CKD-EPI)AfAm 40 (>60 ml/min/1.73 sqM) Est GFR (CKD-EPI)NonAf 35 (>60 ml/min/1.73 sqM) Glucose 147 H (74-99) mg/dL Calcium 9.4 (8.4-10.2) mg/dL Magnesium 2.4 H (1.6-2.3) mg/dL Total Bilirubin 1.1 (0.2-1.3) mg/dL AST 29 (14-36) U/L ALT 13 (4-34) U/L Alkaline Phosphatase 97 (38-126) U/L Ammonia (<30) umol/L Troponin I <0.012 (0.000-0.034) ng/mL Total Protein 7.5 (6.3-8.2) g/dL Albumin 4.1 (3.5-5.0) g/dL Stool Occult Blood (Negative) Blood Type A Positive Blood Type Recheck A Pos Bld Type Recheck Status No Antibody Screen NEGATIVE Spec Expiration Date 08/27/2019230708/24/19 Range/Units 13:16 WBC (3.8-10.6) k/uL RBC (3.80-5.40) m/uL Hgb (11.4-16.0) gm/dL Hct (34.0-46.0) % MCV (80.0-100.0) fL MCH (25.0-35.0) pg MCHC (31.0-37.0) g/dL RDW (11.5-15.5) % Plt Count (150-450) k/uL Neutrophils % % Lymphocytes % % Monocytes % % Eosinophils % % Basophils % % Neutrophils # (1.3-7.7) k/uL Lymphocytes # (1.0-4.8) k/uL Monocytes # (0-1.0) k/uL Eosinophils # (0-0.7) k/uL Basophils # (0-0.2) k/uL Hypochromasia Poikilocytosis Anisocytosis PT (9.0-12.0) sec INR (<1.2) APTT (22.0-30.0) sec Sodium (137-145) mmol/L Potassium (3.5-5.1) mmol/L Chloride (98-107) mmol/L Carbon Dioxide (22-30) mmol/L Anion Gap mmol/L BUN (7-17) mg/dL Creatinine (0.52-1.04) mg/dL Est GFR (CKD-EPI)AfAm (>60 ml/min/1.73 sqM) Est GFR (CKD-EPI)NonAf (>60 ml/min/1.73 sqM) Glucose (74-99) mg/dL Calcium (8.4-10.2) mg/dL Magnesium (1.6-2.3) mg/dL Total Bilirubin (0.2-1.3) mg/dL AST (14-36) U/L ALT (4-34) U/L Alkaline Phosphatase (38-126) U/L Ammonia 38 H (<30) umol/L Troponin I (0.000-0.034) ng/mL Total Protein (6.3-8.2) g/dL Albumin (3.5-5.0) g/dL Stool Occult Blood (Negative) Blood Type Blood Type Recheck Bld Type Recheck Status Antibody Screen Spec Expiration Date Disposition Clinical Impression: GI bleed, Anemia Disposition: ADMITTED IP TO THIS HOSP Referrals: Tom Han MD [Primary Care Provider] - 1-2 days Time of Disposition: 14:34
[2019-08-24 13:33] LABS: Anisocytosis Slight; Basophils % (A) 1 %; Eosinophils # (A) 0.1 k/uL (0-0.7); Eosinophils % (A) 3 %; HCT 28.4 % (34.0-46.0); HGB 9.3 gm/dL (11.4-16.0); Hypochromasia Slight; Lymphocytes # (A) 0.8 k/uL (1.0-4.8); Lymphocytes % (A) 16 %; MCHC 32.6 g/dL (31.0-37.0); MCV 94.9 fL (80.0-100.0); Mean Platelet Volume 8.6; Monocytes # (A) 0.3 k/uL (0-1.0); Monocytes % (A) 6 %; Neutrophils # (A) 3.6 k/uL (1.3-7.7); Neutrophils % (A) 72 %; Platelet Count 103 k/uL (150-450); Poikilocytosis Slight; RBC 2.99 m/uL (3.80-5.40); RDW 16.3 % (11.5-15.5); WBC 4.9 k/uL (3.8-10.6)
[2019-08-24 13:42] LABS: Partial Thromboplastin Time 23.1 sec (22.0-30.0); Prothrombin Time 10.4 sec (9.0-12.0)
[2019-08-24 13:51] LABS: Albumin 4.1 g/dL (3.5-5.0); Calcium 9.4 mg/dL (8.4-10.2); Magnesium 2.4 mg/dL (1.6-2.3); Potassium 5.6 mmol/L (3.5-5.1); Total Bilirubin 1.1 mg/dL (0.2-1.3); Total Protein 7.5 g/dL (6.3-8.2)
[2019-08-24] MEDS ORDERED: SODIUM CHLORIDE 0.9% 1,000 ML IV ONE (14:34)
[2019-08-24] MEDS ORDERED: ACETAMINOPHEN TAB 325 MG TAB PO PRN (19:16)
[2019-08-24] MEDS ORDERED: ARTIFICIAL TEARS-HYPROMELLOSE DROPS 15 ML BTL BOTH EYES PRN (19:16)
[2019-08-24 20:24] LABS: Glucose,Whole Blood 104 mg/dL (75-99)
[2019-08-24] MEDS: METOPROLOL TARTRATE 25 MG TAB PO SCH (21:08)
[2019-08-24] MEDS: RIFAXIMIN 550 MG TABLET PO SCH (21:09)
[2019-08-24] MEDS: GABAPENTIN 100 MG CAP PO SCH (21:09)
[2019-08-24] MEDS: SENNOSIDES 8.6 MG TAB PO SCH (21:09)
[2019-08-24] MEDS: LACTULOSE 20 GM/30 ML CUP PO SCH (21:09)
[2019-08-24] MEDS: INSULIN DETEMIR (LEVEMIR) 100 UNIT/ML SYR SQ SCH (21:18)
[2019-08-25] MEDS: PANTOPRAZOLE 40 MG TABLET PO SCH (05:54)
[2019-08-25] MEDS ORDERED: FUROSEMIDE 40 MG TAB PO SCH (06:00)
[2019-08-25] MEDS: HYDROcodone/APAP 10-325MG 1 EACH TAB PO PRN ×3 (07:07→19:33)
[2019-08-25 07:17] LABS: Glucose,Whole Blood 100 mg/dL (75-99)
[2019-08-25] MEDS: METOPROLOL TARTRATE 25 MG TAB PO SCH ×2 (08:44→21:13)
[2019-08-25] MEDS: MULTIVITAMINS, THERA 1 EACH TAB PO SCH (08:44)
[2019-08-25] MEDS: FOLIC ACID 1 MG TAB PO SCH (08:44)
[2019-08-25] MEDS: GABAPENTIN 100 MG CAP PO SCH ×2 (08:44→21:13)
[2019-08-25] MEDS: ASPIRIN 81 MG PO SCH (08:44)
[2019-08-25] MEDS: SPIRONOLACTONE 25 MG TAB PO SCH (08:44)
[2019-08-25] MEDS: FERROUS SULFATE 325 MG TAB PO SCH (08:45)
[2019-08-25] MEDS: RIFAXIMIN 550 MG TABLET PO SCH ×2 (08:45→21:16)
[2019-08-25] MEDS: POTASSIUM CHLORIDE ER 10 MEQ TAB.ER.PRT PO SCH (08:45)
[2019-08-25] MEDS: ANASTROZOLE 1 MG TAB PO SCH (08:45)
[2019-08-25] MEDS: THIAMINE 100 MG TAB PO SCH (08:45)
[2019-08-25] MEDS: LACTULOSE 20 GM/30 ML CUP PO SCH ×2 (08:45→21:16)
[2019-08-25] MEDS: SENNOSIDES 8.6 MG TAB PO SCH ×2 (09:37→21:17)
--- NOTE | 2019-08-25 09:50 | CONS ---
CONSULTATION DATE OF CONSULTATION: 08/25/2019 REASON FOR CONSULTATION: GI bleed. HISTORY OF PRESENT ILLNESS: The patient is a 69-year-old pleasant white female with history of longstanding diabetes mellitus, hypertension, who was admitted to the hospital with acute GI bleed. She recently had maroon colored stool followed by 2-3 episodes of black tarry stools and became concerned and came to the emergency room and subsequently admitted to the hospital for further evaluation. The patient denies any abdominal pain. Reports had one episode of emesis, but it was bilious in nature. Since being in the hospital, did not have any evidence of bleeding. She denies any prior history of peptic ulcer disease or recent NSAID use. The patient was admitted to this hospital in the first week of July with altered mental status and because of questionable seizures, she was transferred to [facility]. The patient has been at [facility] for a week and at the time of her discharge, she was started on Xifaxan and lactulose. I questioned her further if she was diagnosed with chronic liver disease or cirrhosis of the liver, but patient does not recall any details while she was in the hospital. In fact, she is teary-eyed on further questioning because she did not like her hospital stay at [facility]. Since being in the hospital, she did not have any further episodes of bleeding. She recalls having a colonoscopy several years. PAST MEDICAL HISTORY: Her past medical history is significant for longstanding history of diabetes mellitus, hypertension, hyperlipidemia, history of breast cancer. MEDICATIONS: Medications at home include thiamine, Aldactone, Senna, Xifaxan, K-Dur, Protonix Lopressor, melatonin, lactulose, insulin, Neurontin, Lasix, folic acid, Feosol, Drisdol, Ecotrin, Arimidex and Tylenol. ALLERGIES: PENICILLIN, CYMBALTA, KEFLEX, CODEINE, PHENOBARBITAL, DILANTIN, AND MYSOLINE. SOCIAL HISTORY: Remote history of alcohol use. No smoking. FAMILY HISTORY: Father had lung cancer, mother with breast cancer. PAST SURGICAL HISTORY: Appendectomy, tonsillectomy, breast surgery, cholecystectomy, tubal ligation, hysterectomy. REVIEW OF SYSTEMS: Cardiopulmonary: No chest pain or shortness of breath. : No dysuria hematuria. Musculoskeletal unremarkable. Skin unremarkable. Endocrine unremarkable other than longstanding history of diabetes mellitus. ENT/vision: Unremarkable. Constitutional: No recent weight loss. No fever, chills, night sweats. Hematology: Anemia. Endocrinology: Longstanding history of diabetes mellitus. PHYSICAL EXAMINATION: She appears comfortable. No apparent distress. Vital signs stable with blood pressure 127/70, pulse rate 77, temperature 97.9. HEENT: Examination unremarkable. Conjunctivae are pink, sclerae anicteric. Oral cavity no lesions. NECK: No JVD or lymph node enlargement. CHEST: Clear to auscultation. HEART: Regular rate and rhythm. ABDOMEN: Soft, bowel sounds are positive. No organomegaly. EXTREMITIES: No pedal edema. SKIN: No rashes. NEUROLOGIC: Alert and oriented x3. No focal deficits. LABS: WBC 4.9, hemoglobin 9.3, platelets 103. Sodium 136, potassium 5.6, BUN 46, creatinine 1.54. AST and ALT normal. T bilirubin 1.1. Alkaline phosphatase is normal. Stool occult blood was positive. Ammonia level is 38. IMPRESSION: 1. Acute gastrointestinal bleed, possibly upper in etiology. The patient presented with black tarry stools and maroon colored stools since yesterday. Hemoglobin is 9.3 g/dL. No bleeding since being in the hospital. Rule out peptic ulcer disease. 2. Anemia secondary to gastrointestinal bleed. 3. Elevated BUN and creatinine. 4. History of hepatic encephalopathy. Remains on lactulose on oral Xifaxan that was started a month ago after she was discharged home from [facility]. 5. Possible underlying chronic liver disease with cirrhosis of the liver/thrombocytopenia secondary to fatty liver disease. RECOMMENDATIONS: 1. Clear liquid diet. 2. Protonix 40 mg twice daily. 3. Continue with lactulose and Xifaxan. 4. We will proceed with upper endoscopy tomorrow. Discussed with the patient risks, benefits and complications of the procedure and she is agreeable to it. Thank you for this consultation. MMODL / IJN: [id number] /
[2019-08-25 10:40] LABS: Anisocytosis Slight; Basophils % (A) 1 %; Eosinophils # (A) 0.1 k/uL (0-0.7); Eosinophils % (A) 4 %; HCT 23.3 % (34.0-46.0); Hypochromasia Moderate; Lymphocytes # (A) 0.7 k/uL (1.0-4.8); Lymphocytes % (A) 21 %; MCH 31.6 pg (25.0-35.0); MCHC 32.7 g/dL (31.0-37.0); MCV 96.6 fL (80.0-100.0); Mean Platelet Volume 8.3; Monocytes # (A) 0.2 k/uL (0-1.0); Monocytes % (A) 6 %; Neutrophils # (A) 2.1 k/uL (1.3-7.7); Neutrophils % (A) 66 %; Poikilocytosis Slight; RBC 2.41 m/uL (3.80-5.40); RDW 16.2 % (11.5-15.5); WBC 3.1 k/uL (3.8-10.6)
[2019-08-25 10:43] LABS: HGB 7.6 gm/dL (11.4-16.0)
[2019-08-25 10:44] LABS: Calcium 8.5 mg/dL (8.4-10.2); Potassium 4.7 mmol/L (3.5-5.1)
[2019-08-25 11:04] LABS: Platelet Count 92 k/uL (150-450)
[2019-08-25 11:16] LABS: Glucose,Whole Blood 139 mg/dL (75-99)
--- NOTE | 2019-08-25 14:27 | P.HPIM ---
History of Present Illness H&P Date: 08/25/19 Chief Complaint: Blood in the stool Patient is a 69-year-old female with a known history of hypertension, hyperlipidemia, fibromyalgia, chronic CHF, remote arthritis, history of SVT, diabetes type 2 and diabetic peripheral neuropathy and other multiple medical problems came to ER with complaints of mid and carotid bowel movement daily at that day. Patient says that she is been on lactulose due to her liver disease and is having diarrhea and she takes lactulose. Denied any abdominal pain. No fever no chills. No compressive chest pain or shortness of breath. No palpitations. Denied any headache or dizziness or lightheadedness. Patient says she is tired and weak. Currently patient is not taking any blood in the 70s time. Patient was admitted to the hospital during the first week of zone with altered mental status and questionable seizures. Patient was transferred to [facility] where patient says that she was diagnosed with chronic liver disease a nd cirrhosis but patient could not recollect completely. Patient was started on rifaximin and lactulose at [facility] and patient was transferred to rehab. Laboratory data showed WBC 4.9, hemoglobin 9.3, platelets of 103 and INR 1.0, sodium 136, compression 5.6, BUN 46 and creatinine 1.54 Blood sugar 147 Magnesium 2.4 Ammonia 38 FOBT positive Review of Systems Constitutional: Patient denies any fever or chills . Generalized weakness and tiredness. No weight loss. Abdomen: Patient denied nausea vomiting and diarrhea and abdominal pain. Blood per rectum. Mechanical low stool. Cardiovascular: Patient denies any chest pain or short of breath no palpitations. Respiratory: patient denied any cough is from production. No shortness of breath Neurologic: Patient denied any numbness or tingling headache. Musculoskeletal: Patient denies any complaints of joint swelling or deformity. Skin: Negative Psychiatric: Negative Endocrine: No heat or cold intolerance. No recent weight gain. Genitourinary: No dysuria or hematuria. All other 14 point ROS negative except the above Past Medical History Past Medical History: Cancer, Heart Failure, COPD, Diabetes Mellitus, Fibromyalgia, Hyperlipidemia, Hypertension, Renal Disease, Rheumatoid Arthritis (RA), Seizure Disorder, Supraventricular Tachycardia (SVT) Additional Past Medical History / Comment(s): IDDM type II, neuropathy bilateral legs/feet and hands, past cellulitis leg, R breast cancer with surgery and chemo, seizures with last time "years" ago, UTI, CKD, UTIs, chronic anemiaDM Type II. dental extraction (all teeth from lower jaw 11/2017) History of Any Multi-Drug Resistant Organisms: VRE Date of last positivie culture/infection: 05/11/18 MDRO Source:: VRE URINE Past Surgical History: Adenoidectomy, Appendectomy, Breast Surgery, Cholecystectomy, Hysterectomy, Orthopedic Surgery, Tonsillectomy, Tubal Ligation Additional Past Surgical History / Comment(s): masectomy right, ganglion cyst right hand, total hysterectomy (hx of tubal pregnancies), lower teeth extracted. Past Anesthesia/Blood Transfusion Reactions: No Reported Reaction Past Psychological History: Anxiety, Depression Additional Psychological History / Comment(s): Pt currently is at [facility] for rehab. She needs assist with ADLS except feeds self. She states up until just lately she was getting up with a walker some.Her daughter lives with her. No experience. Did not work outside of the home. No int ernational travel. . There is a pet dog in the home. No alcohol use Smoking Status: Never smoker Past Alcohol Use History: None Reported Additional Past Alcohol Use History / Comment(s): Pt started smoking in 1971 and qut in December 2017. Per patient she smoked 1-2 cigarettes a day after meals. Past Drug Use History: None Reported - Past Family History Father Family Medical History: Cancer, CVA/TIA Additional Family Medical History / Comment(s): 2000 from lung cancer Mother Family Medical History: Cancer, Dementia Additional Family Medical History / Comment(s): 2014 at age 86. Oral & Breast cancer Brother(s) Family Medical History: Asthma, Diabetes Mellitus, Fibromyalgia, Osteoarthritis (OA) Additional Family Medical History / Comment(s): Obesity. Joint replacements Medications and Allergies Home Medications Medication Instructions Recorded Confirmed Type Anastrozole [Arimidex] 1 mg PO DAILY@0900 09/30/14 08/24/19 History Sennosides [Senna] 8.6 mg PO BID@0900,2100 04/02/18 08/24/19 History Pantoprazole [Protonix] 40 mg PO DAILY@0600 07/02/18 08/24/19 History Ferrous Sulfate [Feosol] 325 mg PO DAILY@0900 08/16/18 07/11/20 History Metoprolol Tartrate [Lopressor] 25 mg PO BID@899,209908/16/18 08/24/19 History Potassium Chloride ER [K-Dur 10] 10 meq PO DAILY@89908/16/18 08/24/19 History Furosemide [Lasix] 40 mg PO DAILY@59912/07/18 08/24/19 History HYDROcodone/APAP 10-325MG [[place] 1 tab PO Q6H PRN 12/07/18 08/24/19 History 10-325] Ergocalciferol (Vitamin D2) 50,000 unit PO Q14D@89907/19/19 08/24/19 History [Drisdol] Gabapentin [Neurontin] 100 mg PO BID@899,209907/19/19 08/24/19 History Acetaminophen [Tylenol] 650 mg PO Q4H PRN 08/24/19 08/24/19 History Aspirin EC [Ecotrin Low Dose] 81 mg PO DAILY@89908/24/19 08/24/19 History Dextran 70/Hypromellose [Genteal 1 drop BOTH EYES Q12H PRN 08/24/19 08/24/19 History Tears 0.1%-0.3% Drop] Folic Acid 1 mg PO DAILY@89908/24/19 08/24/19 History Insulin Glargine,Hum.rec.anlog 20 unit SQ HS@209908/24/19 08/24/19 History [Basaglar Kwikpen U-100] Insulin Lispro 4 units SQ TID@0800,1200,1700 08/24/19 08/24/19 History Lactulose 20 gm PO Q12H 08/24/19 08/24/19 History Melatonin 10mg Capsule 10 mg PO HS PRN 08/24/19 08/24/19 History Multivitamins, Thera [Multivitamin 1 tab PO DAILY@89908/24/19 08/24/19 History (formulary)] Rifaximin [Xifaxan] 550 mg PO BID@09,209908/24/19 08/24/19 History Spironolactone 50 mg PO DAILY@89908/24/19 08/24/19 History Thiamine [Vitamin B-1] 100 mg PO DAILY@0900 08/24/19 08/24/19 History Allergies Allergy/AdvReac Type Severity Reaction Status Date / Time cephalexin [From Keflex] Allergy Unknown Verified 08/24/19 14:50 duloxetine [From Cymbalta] Allergy Unknown Verified 08/24/19 14:50 Penicillins Allergy Rash/Hives Verified 08/24/19 14:50 codeine AdvReac Nausea & Verified 08/24/19 14:50 Vomiting phenobarbital AdvReac Unknown Verified 08/24/19 14:50 phenytoin sodium AdvReac Unknown Verified 08/24/19 14:50 [From Dilantin] phenytoin sodium extended AdvReac Unknown Verified 08/24/19 14:50 [From Dilantin] primidone [From Mysoline] AdvReac Unknown Verified 08/24/19 14:50 Physical Exam Vitals: Vital Signs Temp Pulse Pulse Resp BP BP Pulse Ox 08/25/19 06:59 97.9 F 77 18 127/76 99 08/25/19 01:00 98.1 F 74 20 115/70 98 08/24/19 20:00 77 20 08/24/19 19:30 97.7 F 77 20 150/82 98 08/24/19 16:38 97.8 F 73 16 103/67 97 08/24/19 16:00 70 16 129/69 08/24/19 15:30 73 18 122/57 100 08/24/19 15:00 70 13 140/78 98 08/24/19 14:30 68 16 125/75 99 08/24/19 14:00 70 10 L 130/57 96 08/24/19 13:30 64 18 127/79 95 08/24/19 13:00 135/59 99 08/24/19 12:41 98.1 F 75 18 135/59 97 Intake and Output 08/24/19 08/25/19 08/25/19 22:59 06:59 14:59 Intake Total 100 0 Output Total 500 Balance 100 -500 Intake: Oral 100 0 Output: Urine 500 Other: Voiding Method Bedside Commode Bedside Commode # Voids 1 1 Weight 112.491 kg PHYSICAL EXAMINATION: Patient is lying in the bed comfortably, no acute distress, awake alert and oriented. Morbidly obese. HEENT: Normocephalic. Neck is supple. Pupils reactive. Nostrils clear. Oral cavity is moist. Ears reveal no drainage. Neck reveals no JVD, carotid bruits, or thyromegaly. CHEST EXAMINATION: Trachea is central. Symmetrical expansion. Bibasilar diminished air entry Lung razo clear to auscultation and percussion. CARDIAC: Normal S1, S2 with no gallops. No murmurs ABDOMEN: Soft. Bowel sounds normal. No organomegaly. No abdominal bruits. Extremities: Trace edema. No clubbing or cyanosis Neurologically awake, alert, oriented x3 with well-coordinated movements. No focal deficits noted Skin: No rash or skin lesions. Psychiatric: Coperative. Nonsuicidal Musculoskeletal: No joint swelling or deformity. Normal range of motion. Results CBC & Chem 7: 08/25/19 10:07 08/25/19 10:07 Labs: Abnormal Lab Results - Last 24 Hours (Table) 08/24/19 08/24/19 08/24/19 Range/Units 13:08 13:08 13:08 RBC 2.99 L (3.80-5.40) m/uL Hgb 9.3 L (11.4-16.0) gm/dL Hct 28.4 L (34.0-46.0) % RDW 16.3 H (11.5-15.5) % Plt Count 103 L (150-450) k/uL Lymphocytes # 0.8 L (1.0-4.8) k/uL Sodium 136 L (137-145) mmol/L Potassium 5.6 H (3.5-5.1) mmol/L BUN 46 H (7-17) mg/dL Creatinine 1.54 H (0.52-1.04) mg/dL Glucose 147 H (74-99) mg/dL POC Glucose (mg/dL) (75-99) mg/dL Magnesium 2.4 H (1.6-2.3) mg/dL Ammonia (<30) umol/L Stool Occult Blood Positive H (Negative) 08/24/19 08/24/19 08/25/19 Range/Units 13:16 20:19 06:59 RBC (3.80-5.40) m/uL Hgb (11.4-16.0) gm/dL Hct (34.0-46.0) % RDW (11.5-15.5) % Plt Count (150-450) k/uL Lymphocytes # (1.0-4.8) k/uL Sodium (137-145) mmol/L Potassium (3.5-5.1) mmol/L BUN (7-17) mg/dL Creatinine (0.52-1.04) mg/dL Glucose (74-99) mg/dL POC Glucose (mg/dL) 104 H 100 H (75-99) mg/dL Magnesium (1.6-2.3) mg/dL Ammonia 38 H (<30) umol/L Stool Occult Blood (Negative) Thrombosis Risk Factor Assmnt - DVT/VTE Prophylaxis DVT/VTE Prophylaxis: Mechanical Prophylaxis ordered - Choose All That Apply Each Factor Represents 1 point: Obesity (BMI >25), Swollen legs (current) Each Risk Factor Represents 2 Points: Age 61-74 years Thrombosis Risk Factor Assessment Total Risk Factor Score: 4 Thrombosis Risk Factor Assessment Level: Moderate Risk Assessment and Plan Assessment: Acute GI bleed with maroon-colored stools and FOBT positive. Acute blood loss anemia Acute kidney injury most likely prerenal Mild hyperkalemia secondary to GI bleed History of hepatic encephalopathy. Patient is on lactulose and rifaximin that was started about a month ago at [facility]. All underlying chronic liver disease with cirrhosis and chronic thrombocytopenia. Mild hyperammonemia Chronic CHF with exacerbation dysfunction Fibromyalgia Hypertension Hyperlipidemia Rheumatoid arthritis History of seizure disorder Jazmin SVT Diabetic peripheral neuropathy Right breast cancer with surgery and chemotherapy Anxiety/depression No prior history of smoking Morbid obesity with BMI 41.3 DVT prophylaxis SCDs Plan: Patient will be continued on IV hydration and monitor H&H. Continue with PPI twice daily. Continued on lactulose and rifaximin. Continue with the home medications GI is planning for endoscopy tomorrow. Further recommendations based on clinical course. Prognosis is guarded. PT OT will be consulted and patient is currently at [facility] for re[facility]. Time with Patient: Greater than 30
[2019-08-25 16:40] LABS: Glucose,Whole Blood 106 mg/dL (75-99)
[2019-08-25 18:51] LABS: Anisocytosis Slight; Basophils % (A) 1 %; Eosinophils # (A) 0.2 k/uL (0-0.7); Eosinophils % (A) 4 %; HCT 25.1 % (34.0-46.0); HGB 8.1 gm/dL (11.4-16.0); Hypochromasia Slight; Lymphocytes # (A) 1.1 k/uL (1.0-4.8); Lymphocytes % (A) 28 %; MCH 30.8 pg (25.0-35.0); MCHC 32.2 g/dL (31.0-37.0); MCV 95.5 fL (80.0-100.0); Mean Platelet Volume 8.8; Monocytes # (A) 0.3 k/uL (0-1.0); Monocytes % (A) 8 %; Neutrophils # (A) 2.1 k/uL (1.3-7.7); Neutrophils % (A) 56 %; Poikilocytosis Slight; RBC 2.62 m/uL (3.80-5.40); RDW 16.3 % (11.5-15.5); WBC 3.8 k/uL (3.8-10.6)
[2019-08-25 18:52] LABS: Platelet Count 90 k/uL (150-450)
[2019-08-25] MEDS: MELATONIN 5 MG TABLET PO PRN (21:13)
[2019-08-25 21:14] LABS: Glucose,Whole Blood 119 mg/dL (75-99)
[2019-08-25] MEDS: INSULIN DETEMIR (LEVEMIR) 100 UNIT/ML SYR SQ SCH (21:14)
[2019-08-26] MEDS: HYDROcodone/APAP 10-325MG 1 EACH TAB PO PRN ×4 (00:54→22:15)
[2019-08-26] MEDS: PANTOPRAZOLE 40 MG TABLET PO SCH (06:08)
[2019-08-26 06:15] LABS: Glucose,Whole Blood 98 mg/dL (75-99)
[2019-08-26] MEDS: FERROUS SULFATE 325 MG TAB PO SCH (08:15)
[2019-08-26] MEDS: ASPIRIN 81 MG PO SCH (08:15)
[2019-08-26] MEDS: FOLIC ACID 1 MG TAB PO SCH (08:15)
[2019-08-26] MEDS: THIAMINE 100 MG TAB PO SCH (08:15)
[2019-08-26] MEDS: MULTIVITAMINS, THERA 1 EACH TAB PO SCH (08:15)
[2019-08-26] MEDS: SPIRONOLACTONE 25 MG TAB PO SCH (08:15)
[2019-08-26] MEDS: SENNOSIDES 8.6 MG TAB PO SCH ×2 (08:15→21:53)
[2019-08-26] MEDS: RIFAXIMIN 550 MG TABLET PO SCH ×2 (08:15→22:17)
[2019-08-26] MEDS: METOPROLOL TARTRATE 25 MG TAB PO SCH ×2 (08:16→22:18)
[2019-08-26] MEDS: ANASTROZOLE 1 MG TAB PO SCH (08:16)
[2019-08-26] MEDS: POTASSIUM CHLORIDE ER 10 MEQ TAB.ER.PRT PO SCH (08:16)
[2019-08-26] MEDS: LACTULOSE 20 GM/30 ML CUP PO SCH ×2 (08:16→22:15)
[2019-08-26] MEDS: GABAPENTIN 100 MG CAP PO SCH ×3 (08:16→22:18)
[2019-08-26 10:09] LABS: Anisocytosis Slight; HCT 25.2 % (34.0-46.0); HGB 8.4 gm/dL (11.4-16.0); Hypochromasia Slight; MCH 31.5 pg (25.0-35.0); MCHC 33.3 g/dL (31.0-37.0); MCV 94.7 fL (80.0-100.0); Mean Platelet Volume 8.6; Poikilocytosis Slight; RBC 2.66 m/uL (3.80-5.40); RDW 16.5 % (11.5-15.5); WBC 6.2 k/uL (3.8-10.6)
[2019-08-26 10:11] LABS: Platelet Count 96 k/uL (150-450)
[2019-08-26 11:48] LABS: Glucose,Whole Blood 98 mg/dL (75-99)
[2019-08-26] MEDS ORDERED: IV FLUID CONTINUATION 1,000 ML IV ONE (13:27)
[2019-08-26] MEDS ORDERED: PROPOFOL 10 MG/ML 20 ML VIAL IV ONE (13:29)
--- NOTE | 2019-08-26 13:50 | P.PCN ---
Date of Procedure: 08/26/19 Description of Procedure: BRIEF HISTORY: Patient is a 69-year-old female with multiple medical comorbidities including diabetes mellitus, hypertension, questionable underlying liver disease who presented with melanotic stool and concern over GI bleed. Patient found to be anemic with a hemoglobin in the 8 range. Of note on prior hospitalizations patient has had a normocytic anemia. No further bleeding since that time. She is unclear about her prior endoscopic history. PROCEDURE PERFORMED: Esophagogastroduodenoscopy with biopsy. PREOPERATIVE DIAGNOSIS: GI bleed, melena. ESTIMATED BLOOD LOSS: Minimal. IV sedation per anesthesia. PROCEDURE: After informed consent was obtained, the patient was brought into the endoscopy unit. IV sedation was administered by Anesthesia under continuous monitoring. Initially the Olympus GIF-190 video endoscope was inserted into the mouth. Esophagus intubated without any difficulty. It was gradually advanced into the stomach and duodenum and carefully examined. The bulb and the second part of the duodenum appeared normal, with biopsies taken to rule out celiac sprue. The scope at this time was withdrawn to the stomach, adequately insufflated with air, and upon careful examination, mucosa of the antrum, body, cardia and the fundus appeared normal, mild scattered erythema suggestive of mild gastritis with biopsies taken. The scope was then withdrawn into the esophagus. The GE junction was located at 35 cm from the incisors, with a 2 cm small hiatal hernia noted. The esophagus appeared normal. There were no erosions or ulcerations seen and the patient tolerated the procedure well. IMPRESSION: 1. No active bleeding, old blood or source of bleeding noted. 2. Mild gastritis antrum body, biopsied. 3. Biopsies of the duodenum. 4. Small hiatal hernia. RECOMMENDATIONS: The findings of this examination were discussed with the patient. Okay for diet. Continue to monitor hemoglobin and hematocrit. Await pathology from biopsies. Patient should follow-up for outpatient colonoscopy.
[2019-08-26 17:20] LABS: Glucose,Whole Blood 121 mg/dL (75-99)
[2019-08-26 21:49] LABS: Glucose,Whole Blood 187 mg/dL (75-99)
[2019-08-26] MEDS: INSULIN DETEMIR (LEVEMIR) 100 UNIT/ML SYR SQ SCH (22:15)
[2019-08-26] MEDS: MELATONIN 5 MG TABLET PO PRN (22:16)
--- NOTE | 2019-08-27 00:03 | P.PN ---
Subjective Progress Note Date: 08/26/19 Patient is a 69-year-old female with a known history of hypertension, hyperlipidemia, fibromyalgia, chronic CHF, remote arthritis, history of SVT, diabetes type 2 and diabetic peripheral neuropathy and other multiple medical problems came to ER with complaints of mid and carotid bowel movement daily at that day. Patient says that she is been on lactulose due to her liver disease and is having diarrhea and she takes lactulose. Denied any abdominal pain. No fever no chills. No compressive chest pain or shortness of breath. No palpitations. Denied any headache or dizziness or lightheadedness. Patient says she is tired and weak. Currently patient is not taking any blood in the 70s time. Patient was admitted to the hospital during the first week of zone with altered mental status and questionable seizures. Patient was transferred to [facility] where patient says that she was diagnosed with chronic liver disease and cirrhosis but patient could not recollect completely. Patient was started on rifaximin and lactulose at [facility] and patient was transferred to rehab. Laboratory data showed WBC 4.9, hemoglobin 9.3, platelets of 103 and INR 1.0, sodium 136, compression 5.6, BUN 46 and creatinine 1.54 Blood sugar 147 Magnesium 2.4 Ammonia 38 FOBT positive 08/26/2019 Patient is currently lying in the bed. Complaining of right upper extremity neuropathic pain. Patient was emotional at times and was crying. Otherwise denied any further episodes of rectal bleeding. Hemoglobin is slightly improved to 8.4. Gastroenterology is planning for endoscopy today. Denied any complaints of chest pain or shortness of. No fever no chills. No cough or sputum production. Current medications reviewed. Objective - Vital Signs Vital signs: Vital Signs Temp 98.3 F 08/26/19 14:15 Pulse 81 08/26/19 20:39 Resp 18 08/26/19 20:39 BP 126/63 08/26/19 20:39 Pulse Ox 99 08/26/19 20:39 Intake & Output 08/26/19 08/26/19 08/27/19 06:59 18:59 06:59 Intake Total 50 Output Total 500 Balance -450 Intake: IV 50 Output: Urine 500 Other: Voiding Method Bedside Commode Bedside Commode # Voids 2 1 - Exam PHYSICAL EXAMINATION: Patient is lying in the bed comfortably, no acute distress, awake alert and oriented. Morbidly obese. HEENT: Normocephalic. Neck is supple. Pupils reactive. Nostrils clear. Oral cavity is moist. Ears reveal no drainage. Neck reveals no JVD, carotid bruits, or thyromegaly. CHEST EXAMINATION: Trachea is central. Symmetrical expansion. Bibasilar dimi nished air entry Lung razo clear to auscultation and percussion. CARDIAC: Normal S1, S2 with no gallops. No murmurs ABDOMEN: Soft. Bowel sounds normal. No organomegaly. No abdominal bruits. Extremities: Trace edema. No clubbing or cyanosis Neurologically awake, alert, oriented x3 with well-coordinated movements. No focal deficits noted Skin: No rash or skin lesions. Psychiatric: Coperative. Nonsuicidal. Anxious. Musculoskeletal: No joint swelling or deformity. Normal range of motion. = - Labs CBC & Chem 7: 08/26/19 09:05 08/25/19 10:07 Labs: Abnormal Lab Results - Last 24 Hours (Table) 08/26/19 08/26/19 08/26/19 Range/Units 09:05 17:18 21:47 RBC 2.66 L (3.80-5.40) m/uL Hgb 8.4 L (11.4-16.0) gm/dL Hct 25.2 L (34.0-46.0) % RDW 16.5 H (11.5-15.5) % Plt Count 96 L (150-450) k/uL POC Glucose (mg/dL) 121 H 187 H (75-99) mg/dL Assessment and Plan Assessment: Acute GI bleed with maroon-colored stools and FOBT positive. Acute blood loss anemia Acute kidney injury most likely prerenal Mild hyperkalemia secondary to GI bleed History of hepatic encephalopathy. Patient is on lactulose and rifaximin that was started about a month ago at [facility]. All underlying chronic liver disease with cirrhosis and chronic thrombocytopenia. Mild hyperammonemia Chronic CHF with exacerbation dysfunction Fibromyalgia Hypertension Hyperlipidemia Rheumatoid arthritis History of seizure disorder Jazmin SVT Diabetic peripheral neuropathy Right breast cancer with surgery and chemotherapy Anxiety/depression No prior history of smoking Morbid obesity with BMI 41.3 DVT prophylaxis SCDs Plan: Patient will be continued on IV hydration and monitor H&H. Continue with PPI twice daily. Continued on lactulose and rifaximin. Continue with the home medications GI is planning for endoscopy today. Further recommendations based on clinical course. Prognosis is guarded. PT OT will be consulted and patient is currently at [facility] for rehab. Time with Patient: Greater than 30
[2019-08-27] MEDS ORDERED: GABAPENTIN 100 MG CAP PO STA (02:23)
[2019-08-27] MEDS: LIDOCAINE 5% PATCH TOPICAL SCH ×2 (02:45→07:37)
[2019-08-27 06:16] LABS: Anisocytosis Slight; Basophils % (A) 1 %; Eosinophils # (A) 0.2 k/uL (0-0.7); Eosinophils % (A) 5 %; HCT 21.2 % (34.0-46.0); Hypochromasia Slight; Lymphocytes % (A) 25 %; MCH 31.7 pg (25.0-35.0); MCHC 33.1 g/dL (31.0-37.0); MCV 95.7 fL (80.0-100.0); Mean Platelet Volume 8.3; Monocytes # (A) 0.3 k/uL (0-1.0); Monocytes % (A) 8 %; Neutrophils # (A) 2.3 k/uL (1.3-7.7); Neutrophils % (A) 60 %; Poikilocytosis Slight; RBC 2.21 m/uL (3.80-5.40); RDW 16.6 % (11.5-15.5); WBC 3.9 k/uL (3.8-10.6)
[2019-08-27 06:17] LABS: Platelet Count 89 k/uL (150-450)
[2019-08-27 06:28] LABS: Calcium 8.6 mg/dL (8.4-10.2); Potassium 5.3 mmol/L (3.5-5.1)
[2019-08-27] MEDS: PANTOPRAZOLE 40 MG TABLET PO SCH (06:48)
[2019-08-27 06:53] LABS: Glucose,Whole Blood 114 mg/dL (75-99)
[2019-08-27] MEDS: FERROUS SULFATE 325 MG TAB PO SCH (07:36)
[2019-08-27] MEDS: ASPIRIN 81 MG PO SCH (07:36)
[2019-08-27] MEDS: FOLIC ACID 1 MG TAB PO SCH (07:36)
[2019-08-27] MEDS: ANASTROZOLE 1 MG TAB PO SCH (07:36)
[2019-08-27] MEDS: METOPROLOL TARTRATE 25 MG TAB PO SCH ×2 (07:37→20:42)
[2019-08-27] MEDS: GABAPENTIN 300 MG CAP PO SCH ×3 (07:37→20:43)
[2019-08-27] MEDS: MULTIVITAMINS, THERA 1 EACH TAB PO SCH (07:37)
[2019-08-27] MEDS: LACTULOSE 20 GM/30 ML CUP PO SCH ×2 (07:37→20:40)
[2019-08-27] MEDS: POTASSIUM CHLORIDE ER 10 MEQ TAB.ER.PRT PO SCH (07:37)
[2019-08-27] MEDS: HYDROcodone/APAP 10-325MG 1 EACH TAB PO PRN ×3 (07:38→22:54)
[2019-08-27] MEDS: THIAMINE 100 MG TAB PO SCH (07:38)
[2019-08-27] MEDS: RIFAXIMIN 550 MG TABLET PO SCH ×2 (07:38→22:54)
[2019-08-27] MEDS: SENNOSIDES 8.6 MG TAB PO SCH ×2 (07:38→20:40)
[2019-08-27] MEDS: SPIRONOLACTONE 25 MG TAB PO SCH (07:38)
[2019-08-27 11:46] LABS: Anisocytosis Slight; Basophils % (A) 1 %; Eosinophils # (A) 0.2 k/uL (0-0.7); Eosinophils % (A) 4 %; HCT 22.4 % (34.0-46.0); HGB 7.1 gm/dL (11.4-16.0); Hypochromasia Moderate; Lymphocytes # (A) 0.8 k/uL (1.0-4.8); Lymphocytes % (A) 19 %; MCH 30.6 pg (25.0-35.0); MCHC 31.8 g/dL (31.0-37.0); MCV 96.4 fL (80.0-100.0); Macrocytosis Slight; Mean Platelet Volume 8.4; Monocytes # (A) 0.3 k/uL (0-1.0); Monocytes % (A) 6 %; Neutrophils % (A) 68 %; Platelet Count 100 k/uL (150-450); Poikilocytosis Slight; RBC 2.33 m/uL (3.80-5.40); RDW 16.6 % (11.5-15.5); WBC 4.4 k/uL (3.8-10.6)
[2019-08-27 11:50] LABS: Glucose,Whole Blood 172 mg/dL (75-99)
[2019-08-27] MEDS ORDERED: PEG 3350-NA SULF,BICARB,CL/KCL 4,000 ML BOTTLE PO ONE (15:47)
[2019-08-27] MEDS ORDERED: bisacodyL 5 MG TABLET.DR PO STA (15:52)
[2019-08-27] MEDS: ONDANSETRON 4 MG/2 ML VIAL IVP PRN (16:11)
[2019-08-27 16:42] LABS: % Iron Saturation 27.49 (12.00-45.00)
[2019-08-27 16:45] LABS: Glucose,Whole Blood 169 mg/dL (75-99)
[2019-08-27 16:51] LABS: Ferritin 33.4 ng/mL (10.0-291.0)
[2019-08-27 19:22] LABS: Anisocytosis Slight; Basophils % (A) 1 %; Eosinophils # (A) 0.2 k/uL (0-0.7); Eosinophils % (A) 5 %; HCT 23.5 % (34.0-46.0); HGB 7.6 gm/dL (11.4-16.0); Hypochromasia Marked; Lymphocytes # (A) 1.2 k/uL (1.0-4.8); Lymphocytes % (A) 26 %; MCH 31.8 pg (25.0-35.0); MCHC 32.3 g/dL (31.0-37.0); MCV 98.5 fL (80.0-100.0); Macrocytosis Slight; Monocytes # (A) 0.3 k/uL (0-1.0); Monocytes % (A) 8 %; Neutrophils # (A) 2.6 k/uL (1.3-7.7); Neutrophils % (A) 58 %; Platelet Count 108 k/uL (150-450); Poikilocytosis Slight; RBC 2.39 m/uL (3.80-5.40); RDW 16.9 % (11.5-15.5); WBC 4.4 k/uL (3.8-10.6)
[2019-08-27] MEDS: INSULIN DETEMIR (LEVEMIR) 100 UNIT/ML SYR SQ SCH (20:44)
[2019-08-27 20:46] LABS: Glucose,Whole Blood 130 mg/dL (75-99)
[2019-08-27] MEDS: MELATONIN 5 MG TABLET PO PRN (22:54)
[2019-08-28 06:03] LABS: Glucose,Whole Blood 118 mg/dL (75-99)
--- NOTE | 2019-08-28 06:35 | P.PN ---
Subjective Progress Note Date: 08/27/19 Principal diagnosis: GI bleed, melena, chronic liver disease, encephalopathy Patient seen lying in bed. No nausea or vomiting. Deniea abdominal pain at this time. Objective - Vital Signs Vital signs: Vital Signs Temp 98.2 F 08/27/19 07:32 Pulse 82 08/27/19 07:32 Resp 98 H 08/27/19 07:32 BP 136/77 08/27/19 07:32 Pulse Ox 99 08/26/19 20:39 Intake & Output 08/26/19 08/27/19 08/27/19 18:59 06:59 18:59 Intake Total 50 Output Total 500 500 Balance -450 -500 Intake: IV 50 Output: Urine 500 500 Other: Voiding Method Bedside Commode Bedside Commode Bedside Commode # Voids 1 2 3 - Exam Constitutional: Lying in bed in no apparent distress Head: normocephalic/atraumatic Eyes: No icterus, no injection Mouth: Moist mucous membranes Nose: No discharge noted Neck: Trachea midline, no JVD Cardiac: S1S2 appreciated. Lungs: Normal air entry in all lung razo, no wheezing appreciated Abdomen: Soft, nontender, nondistended, normal bowel sounds. No guarding or rigidity Skin: No rashes, no jaundice Neuro: Awake alert and oriented, no focal deficits - Labs CBC & Chem 7: 08/27/19 19:10 08/27/19 05:37 Labs: Abnormal Lab Results - Last 24 Hours (Table) 08/26/19 08/26/19 08/27/19 Range/Units 17:18 21:47 05:37 RBC 2.21 L (3.80-5.40) m/uL Hgb 7.0 L (11.4-16.0) gm/dL Hct 21.2 L (34.0-46.0) % RDW 16.6 H (11.5-15.5) % Plt Count 89 L (150-450) k/uL Lymphocytes # (1.0-4.8) k/uL Potassium (3.5-5.1) mmol/L Chloride (98-107) mmol/L BUN (7-17) mg/dL Creatinine (0.52-1.04) mg/dL Glucose (74-99) mg/dL POC Glucose (mg/dL) 121 H 187 H (75-99) mg/dL 08/27/19 08/27/19 08/27/19 Range/Units 05:37 06:51 11:10 RBC 2.33 L (3.80-5.40) m/uL Hgb 7.1 L (11.4-16.0) gm/dL Hct 22.4 L (34.0-46.0) % RDW 16.6 H (11.5-15.5) % Plt Count 100 L (150-450) k/uL Lymphocytes # 0.8 L (1.0-4.8) k/uL Potassium 5.3 H (3.5-5.1) mmol/L Chloride 111 H (98-107) mmol/L BUN 42 H (7-17) mg/dL Creatinine 1.42 H (0.52-1.04) mg/dL Glucose 107 H (74-99) mg/dL POC Glucose (mg/dL) 114 H (75-99) mg/dL 08/27/19 Range/Units 11:49 RBC (3.80-5.40) m/uL Hgb (11.4-16.0) gm/dL Hct (34.0-46.0) % RDW (11.5-15.5) % Plt Count (150-450) k/uL Lymphocytes # (1.0-4.8) k/uL Potassium (3.5-5.1) mmol/L Chloride (98-107) mmol/L BUN (7-17) mg/dL Creatinine (0.52-1.04) mg/dL Glucose (74-99) mg/dL POC Glucose (mg/dL) 172 H (75-99) mg/dL Assessment and Plan (1) Anemia associated with acute blood loss Narrative/Plan: 69-year-old female presenting with symptoms of black tarry stools and maroon- colored stools with acute fall in her hemoglobin. EGD performed in evaluation with no evidence of upper GI bleed and a small hiatal hernia noted. Plan is for colonoscopic evaluation to rule out lower GI bleed. Current Visit: Yes Status: Acute Code(s): D62 - ACUTE POSTHEMORRHAGIC ANEMIA SNOMED Code(s): 487081611 (2) Chronic liver disease Narrative/Plan: Patient has a history of hepatic encephalopathy on lactulose and rifaximin therapy for which she was discharged after admission to [facility] suspicion for underlying chronic liver disease with cirrhosis. Current Visit: Yes Status: Acute Code(s): K76.9 - LIVER DISEASE, UNSPECIFIED SNOMED Code(s): 093374016 (3) GI bleed Current Visit: Yes Status: Acute Code(s): K92.2 - GASTROINTESTINAL HEMORRHAGE, UNSPECIFIED SNOMED Code(s): 56125570 Plan: Clear liquid diet Continue to monitor hemoglobin and hematocrit and transfuse as needed Continue Protonix therapy Continue lactulose and rifaximin [facility] Plan for colonoscopy tomorrow for further evaluation Thank you for allowing us to participate in the care of the patient
[2019-08-28 06:57] LABS: Anisocytosis Slight; Hypochromasia Slight; MCH 31.8 pg (25.0-35.0); MCHC 33.2 g/dL (31.0-37.0); MCV 95.7 fL (80.0-100.0); Mean Platelet Volume 8.5; Poikilocytosis Slight; RBC 2.51 m/uL (3.80-5.40); RDW 16.7 % (11.5-15.5)
[2019-08-28 07:23] LABS: Platelet Count 80 k/uL (150-450)
[2019-08-28] MEDS: HYDROcodone/APAP 10-325MG 1 EACH TAB PO PRN ×3 (09:17→22:29)
--- NOTE | 2019-08-28 09:35 | CDI ---
Documentation Clarification Form Date: 08/28/2019 09:06:26 AM From: Shruti Metcalf RN, CCDS Admit Date: 08/28/2019 07:28:00 AM Patient Name: Tawny Zuniga Visit Number: [id number] Discharge Date: ATTENTION: The Clinical Documentation Specialists (CDI) and [facility] Coding Staff appreciate your assistance in clarifying documentation. Please respond to the clarification below the line at the bottom and electronically sign. The CDI & [facility] Coding staff will review the response and follow-up if needed. Please note: Queries are made part of the Legal Health Record. If you have any questions, please contact the author of this message via ITS. Dr. Rufina Sosa Chronic CHF is documented in the H/P on 08/24 and subsequent progress notes "Chronic CHF with exacerbation dysfunction". Request further clarification of the diagnosis, type and acuity of the CHF. History/Risk Factors: Chronic CHF, Hypertension, Chronic liver disease, Diabetes Mellitus, Renal disease Clinical Indicators: 69-year-old female present with complaints of black bowel movements. She denies lightheadedness or dizziness or difficulty breathing. 08/23 presentation to ED VS/Pulse OX: 135/59 75 18 97 % RA 04/03/2018 Echocardiogram Results: EF 50-55 % Treatment: Lopressor 25 mg po bid Aldactone 50 mg po daily Lasix po daily 08/24 only In your professional opinion, can you please clarify the acuity and type of CHF if known? Diastolic Heart Failure: Acute Chronic Acute on Chronic (Last Revision: May 2017) Chronic CHF with Diastolic dysfunction MTDD
[2019-08-28] MEDS: GABAPENTIN 300 MG CAP PO SCH ×3 (10:09→21:07)
[2019-08-28] MEDS: ASPIRIN 81 MG PO SCH ×2 (10:09→14:03)
[2019-08-28] MEDS: ANASTROZOLE 1 MG TAB PO SCH ×2 (10:09→14:04)
[2019-08-28] MEDS: FOLIC ACID 1 MG TAB PO SCH ×2 (10:09→14:03)
[2019-08-28] MEDS: PANTOPRAZOLE 40 MG TABLET PO SCH ×2 (10:09→14:02)
[2019-08-28] MEDS: FERROUS SULFATE 325 MG TAB PO SCH ×2 (10:09→14:02)
[2019-08-28] MEDS: LACTULOSE 20 GM/30 ML CUP PO SCH ×2 (10:10→19:58)
[2019-08-28] MEDS: MULTIVITAMINS, THERA 1 EACH TAB PO SCH ×2 (10:10→14:02)
[2019-08-28] MEDS: METOPROLOL TARTRATE 25 MG TAB PO SCH ×3 (10:10→21:04)
[2019-08-28] MEDS: RIFAXIMIN 550 MG TABLET PO SCH ×3 (10:11→21:04)
[2019-08-28] MEDS: SPIRONOLACTONE 25 MG TAB PO SCH ×2 (10:11→14:02)
[2019-08-28] MEDS: SENNOSIDES 8.6 MG TAB PO SCH ×2 (10:11→19:58)
[2019-08-28] MEDS: POTASSIUM CHLORIDE ER 10 MEQ TAB.ER.PRT PO SCH ×2 (10:11→14:01)
[2019-08-28] MEDS: THIAMINE 100 MG TAB PO SCH ×2 (10:11→14:03)
--- NOTE | 2019-08-28 10:27 | P.PN ---
Subjective Progress Note Date: 08/27/19 Principal diagnosis: Acute blood loss anemia GI bleed Patient is a 69-year-old female with a known history of hypertension, hyperlipidemia, fibromyalgia, chronic CHF, remote arthritis, history of SVT, diabetes type 2 and diabetic peripheral neuropathy and other multiple medical problems came to ER with complaints of mid and carotid bowel movement daily at that day. Patient says that she is been on lactulose due to her liver disease and is having diarrhea and she takes lactulose. Denied any abdominal pain. No fever no chills. No compressive chest pain or shortness of breath. No palpitations. Denied any headache or dizziness or lightheadedness. Patient says she is tired and weak. Currently patient is not taking any blood in the 70s time. Patient was admitted to the hospital during the first week of zone with altered mental status and questionable seizures. Patient was transferred to [facility] where patient says that she was diagnosed with chronic liver disease and cirrhosis but patient could not recollect completely. Patient was started on rifaximin and lactulose at [facility] and patient was transferred to rehab. Laboratory data showed WBC 4.9, hemoglobin 9.3, platelets of 103 and INR 1.0, sodium 136, compression 5.6, BUN 46 and creatinine 1.54 Blood sugar 147 Magnesium 2.4 Ammonia 38 FOBT positive 08/26/2019 Patient is currently lying in the bed. Complaining of right upper extremity neuropathic pain. Patient was emotional at times and was crying. Otherwise denied any further episodes of rectal bleeding. Hemoglobin is slightly improved to 8.4. Gastroenterology is planning for endoscopy today. Denied any complaints of chest pain or shortness of. No fever no chills. No cough or sputum production. 08/27/2019 Patient is currently lying in the bed comfortably. EGD showed no active bleeding, old blood source of bleed noted. Mild gastritis antrum body. Small hiatal hernia. Right upper extremity pain is better. Otherwise hemoglobin level is 7.0 and repeat is 7.1. Denied any further episodes of rectal bleeding. No bowel movement today otherwise. Gastroenterology is planning for colonoscopy if hem oglobin continues to drop. Otherwise patient denied any chest pain or shortness of breath. No cough or sputum production. Patient is afebrile. Next and patient is being continued on Protonix. Current medications reviewed. Objective - Vital Signs Vital signs: Vital Signs Temp 97.0 F L 08/27/19 15:15 Pulse 69 08/27/19 19:34 Resp 17 08/27/19 19:34 BP 122/58 08/27/19 19:34 Pulse Ox 100 08/27/19 19:34 Intake & Output 08/27/19 08/27/19 08/28/19 06:59 18:59 06:59 Output Total 500 Balance -500 Output: Urine 500 Other: Voiding Method Bedside Commode Bedside Commode # Voids 2 3 - Exam PHYSICAL EXAMINATION: Patient is lying in the bed comfortably, no acute distress, awake alert and oriented. Morbidly obese. HEENT: Normocephalic. Neck is supple. Pupils reactive. Nostrils clear. Oral cavity is moist. Ears reveal no drainage. Neck reveals no JVD, carotid bruits, or thyromegaly. CHEST EXAMINATION: Trachea is central. Symmetrical expansion. Bibasilar diminished air entry Lung razo clear to auscultation and percussion. CARDIAC: Normal S1, S2 with no gallops. No murmurs ABDOMEN: Soft. Bowel sounds normal. No organomegaly. No abdominal bruits. Extremities: Trace edema. No clubbing or cyanosis Neurologically awake, alert, oriented x3 with well-coordinated movements. No focal deficits noted Skin: No rash or skin lesions. Psychiatric: Coperative. Nonsuicidal. Anxious. Musculoskeletal: No joint swelling or deformity. Normal range of motion. = - Labs CBC & Chem 7: 08/28/19 05:39 08/27/19 05:37 Labs: Abnormal Lab Results - Last 24 Hours (Table) 08/26/19 08/27/19 08/27/19 Range/Units 21:47 05:37 05:37 RBC 2.21 L (3.80-5.40) m/uL Hgb 7.0 L (11.4-16.0) gm/dL Hct 21.2 L (34.0-46.0) % RDW 16.6 H (11.5-15.5) % Plt Count 89 L (150-450) k/uL Lymphocytes # (1.0-4.8) k/uL Potassium 5.3 H (3.5-5.1) mmol/L Chloride 111 H (98-107) mmol/L BUN 42 H (7-17) mg/dL Creatinine 1.42 H (0.52-1.04) mg/dL Glucose 107 H (74-99) mg/dL POC Glucose (mg/dL) 187 H (75-99) mg/dL Vitamin B12 (200.0-944.0) pg/mL 08/27/19 08/27/19 08/27/19 Range/Units 06:51 11:10 11:10 RBC 2.33 L (3.80-5.40) m/uL Hgb 7.1 L (11.4-16.0) gm/dL Hct 22.4 L (34.0-46.0) % RDW 16.6 H (11.5-15.5) % Plt Count 100 L (150-450) k/uL Lymphocytes # 0.8 L (1.0-4.8) k/uL Potassium (3.5-5.1) mmol/L Chloride (98-107) mmol/L BUN (7-17) mg/dL Creatinine (0.52-1.04) mg/dL Glucose (74-99) mg/dL POC Glucose (mg/dL) 114 H (75-99) mg/dL Vitamin B12 1109.0 H (200.0-944.0) pg/mL 08/27/19 08/27/19 08/27/19 Range/Units 11:49 16:43 19:10 RBC 2.39 L (3.80-5.40) m/uL Hgb 7.6 L (11.4-16.0) gm/dL Hct 23.5 L (34.0-46.0) % RDW 16.9 H (11.5-15.5) % Plt Count 108 L (150-450) k/uL Lymphocytes # (1.0-4.8) k/uL Potassium (3.5-5.1) mmol/L Chloride (98-107) mmol/L BUN (7-17) mg/dL Creatinine (0.52-1.04) mg/dL Glucose (74-99) mg/dL POC Glucose (mg/dL) 172 H 169 H (75-99) mg/dL Vitamin B12 (200.0-944.0) pg/mL Assessment and Plan Assessment: Acute GI bleed with maroon-colored stools and FOBT positive. Status post EGD showed mild gastritis. No active bleeding. Acute blood loss anemia Acute kidney injury most likely prerenal Mild hyperkalemia secondary to GI bleed History of hepatic encephalopathy. Patient is on lactulose and rifaximin that was started about a month ago at [facility]. All underlying chronic liver disease with cirrhosis and chronic thrombocytopenia. Mild hyperammonemia Chronic CHF with exacerbation dysfunction Fibromyalgia Hypertension Hyperlipidemia Rheumatoid arthritis History of seizure disorder Jazmin SVT Diabetic peripheral neuropathy Right breast cancer with surgery and chemotherapy Anxiety/depression No prior history of smoking Morbid obesity with BMI 41.3 DVT prophylaxis SCDs Plan: Patient will be continued on IV hydration and monitor H&H. Continue with PPI twice daily. Continued on lactulose and rifaximin. Continue with the home medications GI is planning for endoscopy today. Further recommendations based on clinical course. Prognosis is guarded. PT OT will be consulted and patient is currently at [facility] on the [place] for rehab. Time with Patient: Greater than 30
[2019-08-28] MEDS ORDERED: LACTATED RINGERS 1,000 ML IV ONE (12:00)
[2019-08-28] MEDS ORDERED: ePHEDrine SULFATE/0.9% NACL/PF 50 MG/5 ML SYRINGE IV ONE (12:38)
[2019-08-28] MEDS ORDERED: LIDOCAINE 1% INJ 10MG/ML (20 ML MDV) ONE (12:38)
[2019-08-28] MEDS ORDERED: PROPOFOL 10 MG/ML 20 ML VIAL IV ONE (12:38)
--- NOTE | 2019-08-28 13:26 | P.PCN ---
Date of Procedure: 08/28/19 Description of Procedure: BRIEF HISTORY: 69-year-old female presenting with symptoms of black tarry stools and maroon- colored stools with acute fall in her hemoglobin. EGD performed in evaluation with no evidence of upper GI bleed and a small hiatal hernia noted. Plan is for colonoscopic evaluation to rule out lower GI bleed. PROCEDURE PERFORMED: Colonoscopy. PREOPERATIVE DIAGNOSIS: Anemia of acute blood loss, melena. ESTIMATED BLOOD LOSS: Minimal. IV sedation per Anesthesia. PROCEDURE: After informed consent was obtained, the patient, was brought into the endoscopy unit. IV sedation was administered by Anesthesia under continuous monitoring. Digital rectal examination was normal. Initially the Olympus CF-190 flexible video colonoscope was then inserted in the rectum, gradually advanced into the cecum without any difficulty. Careful examination was performed as the scope was gradually being withdrawn. Ileocecal valve and the appendiceal orifice were visualized and appeared normal. Prep was fair secondary to large amount of old blood with some clots noted throughout the colon with attempts at lavage and suction prohibited by clogging of the gastroscope upon suctioning. Mucosa of the cecum, ascending colon, transverse colon, descending colon, sigmoid colon, and rectum which was able to be visualized and appeared normal with no active bleeding noted, however complete visualization of mucosa limited due to blood and clots. Moderate diverticulosis with multiple small marginal diverticula in the left colon. Retroflexion was performed in the rectum and no lesions were seen. The patient tolerated the procedure well. IMPRESSION: Fair prep, secondary to old blood and clots noted in 3 scattered throughout the colon and prohibiting complete visualization of the mucosa. Moderate diverticulosis. RECOMMENDATIONS: Findings of this examination were discussed with the patient. Continue patient on clear liquid diet for now. Continue to monitor hemoglobin and hematocrit and transfuse as needed. Continue to hold anticoagulation therapy. Suspicion is for likely diverticular bleed as a cause of anemia, however complete visualization of the mucosa was limited due to the blood and clots still present in the colon during endoscopy. If further fall in hemoglobin or signs of bleeding consideration can be for CT angiography, video capsule endoscopy for second look endoscopy. However if hemoglobin stabilizes and symptoms improve patient can have diet advanced. In addition would benefit from colonoscopy in the future for screening purposes.
[2019-08-28] MEDS: LIDOCAINE 5% PATCH TOPICAL SCH (14:57)
[2019-08-28 17:25] LABS: Glucose,Whole Blood 102 mg/dL (75-99)
[2019-08-28 19:12] LABS: Calcium 8.8 mg/dL (8.4-10.2); Magnesium 2.4 mg/dL (1.6-2.3); Potassium 4.9 mmol/L (3.5-5.1)
[2019-08-28 19:56] LABS: Glucose,Whole Blood 175 mg/dL (75-99)
[2019-08-28] MEDS: INSULIN DETEMIR (LEVEMIR) 100 UNIT/ML SYR SQ SCH (21:03)
[2019-08-28] MEDS: MELATONIN 5 MG TABLET PO PRN (22:30)
[2019-08-29 06:05] LABS: Glucose,Whole Blood 108 mg/dL (75-99)
[2019-08-29] MEDS: HYDROcodone/APAP 10-325MG 1 EACH TAB PO PRN (06:24)
[2019-08-29] MEDS: PANTOPRAZOLE 40 MG TABLET PO SCH (06:24)
[2019-08-29 08:05] LABS: Anisocytosis Slight; HCT 22.9 % (34.0-46.0); HGB 7.4 gm/dL (11.4-16.0); Hypochromasia Moderate; MCH 31.3 pg (25.0-35.0); MCHC 32.2 g/dL (31.0-37.0); MCV 97.2 fL (80.0-100.0); Macrocytosis Slight; Mean Platelet Volume 8.8; Poikilocytosis Slight; RBC 2.35 m/uL (3.80-5.40); RDW 16.9 % (11.5-15.5); WBC 4.1 k/uL (3.8-10.6)
[2019-08-29 08:14] LABS: Platelet Count 90 k/uL (150-450)
[2019-08-29] MEDS: LACTULOSE 20 GM/30 ML CUP PO SCH ×2 (11:01→22:13)
[2019-08-29] MEDS: LIDOCAINE 5% PATCH TOPICAL SCH (11:01)
[2019-08-29] MEDS: RIFAXIMIN 550 MG TABLET PO SCH ×2 (11:10→22:12)
[2019-08-29] MEDS: ASPIRIN 81 MG PO SCH (11:10)
[2019-08-29] MEDS: FOLIC ACID 1 MG TAB PO SCH (11:10)
[2019-08-29] MEDS: MULTIVITAMINS, THERA 1 EACH TAB PO SCH (11:10)
[2019-08-29] MEDS: POTASSIUM CHLORIDE ER 10 MEQ TAB.ER.PRT PO SCH (11:10)
[2019-08-29] MEDS: FERROUS SULFATE 325 MG TAB PO SCH (11:10)
[2019-08-29] MEDS: ANASTROZOLE 1 MG TAB PO SCH (11:10)
[2019-08-29] MEDS: SPIRONOLACTONE 25 MG TAB PO SCH (11:10)
[2019-08-29] MEDS: METOPROLOL TARTRATE 25 MG TAB PO SCH ×2 (11:10→22:13)
[2019-08-29] MEDS: GABAPENTIN 300 MG CAP PO SCH ×3 (11:10→22:12)
[2019-08-29] MEDS: THIAMINE 100 MG TAB PO SCH (11:10)
[2019-08-29] MEDS: SENNOSIDES 8.6 MG TAB PO SCH ×2 (11:11→22:12)
[2019-08-29 12:08] LABS: Glucose,Whole Blood 108 mg/dL (75-99)
[2019-08-29 17:14] LABS: Glucose,Whole Blood 104 mg/dL (75-99)
[2019-08-29 17:38] LABS: % Iron Saturation 12.57 (12.00-45.00); Ferritin 88.2 ng/mL (10.0-291.0); Folate, Serum >24.0 ng/mL; Iron 42 ug/dL (50-170); Total Iron Binding Capacity 334 ug/dL (228-460)
[2019-08-29 20:11] LABS: Glucose,Whole Blood 115 mg/dL (75-99)
[2019-08-29] MEDS: INSULIN DETEMIR (LEVEMIR) 100 UNIT/ML SYR SQ SCH (22:13)
--- NOTE | 2019-08-29 23:04 | P.PN ---
Subjective Progress Note Date: 08/29/19 Principal diagnosis: GI bleed, melena, chronic liver disease, encephalopathy Patient seen lying in bed, reporting that she is tolerating her liquid diet. She did have some dark bowel movements likely related to the old blood noted on colonoscopy. No fresh blood seen. Objective - Vital Signs Vital signs: Vital Signs Temp 96.9 F L 08/29/19 08:10 Pulse 67 08/29/19 08:10 Resp 18 08/29/19 08:10 BP 98/60 08/29/19 08:10 Pulse Ox 97 08/29/19 08:10 Intake & Output 08/28/19 08/29/19 08/29/19 18:59 06:59 18:59 Intake Total 630 120 Output Total 701 Balance -71 120 Weight 112.1 kg 111.9 kg Intake: IV 200 Oral 430 120 Output: Urine 701 Other: Voiding Method Toilet Toilet Toilet Bedside Commode Bedside Commode Bedside Commode # Voids 400 1 - Exam Constitutional: Lying in bed in no apparent distress Head: normocephalic/atraumatic Eyes: No icterus, no injection Mouth: Moist mucous membranes Nose: No discharge noted Neck: Trachea midline, no JVD Cardiac: S1S2 appreciated. Lungs: Normal air entry in all lung razo, no wheezing appreciated Abdomen: Soft, nontender, nondistended, normal bowel sounds. No guarding or rigidity Skin: No rashes, no jaundice Neuro: Awake alert and oriented, no focal deficits - Labs CBC & Chem 7: 08/29/19 06:37 08/28/19 05:39 Labs: Abnormal Lab Results - Last 24 Hours (Table) 08/28/19 08/28/19 08/28/19 Range/Units 05:39 17:03 19:55 RBC (3.80-5.40) m/uL Hgb (11.4-16.0) gm/dL Hct (34.0-46.0) % RDW (11.5-15.5) % Plt Count (150-450) k/uL Chloride 108 H (98-107) mmol/L Carbon Dioxide 21 L (22-30) mmol/L BUN 36 H (7-17) mg/dL Creatinine 1.34 H (0.52-1.04) mg/dL Glucose 100 H (74-99) mg/dL POC Glucose (mg/dL) 102 H 175 H (75-99) mg/dL Magnesium 2.4 H (1.6-2.3) mg/dL 08/29/19 08/29/19 08/29/19 Range/Units 06:04 06:37 11:54 RBC 2.35 L (3.80-5.40) m/uL Hgb 7.4 L (11.4-16.0) gm/dL Hct 22.9 L (34.0-46.0) % RDW 16.9 H (11.5-15.5) % Plt Count 90 L (150-450) k/uL Chloride (98-107) mmol/L Carbon Dioxide (22-30) mmol/L BUN (7-17) mg/dL Creatinine (0.52-1.04) mg/dL Glucose (74-99) mg/dL POC Glucose (mg/dL) 108 H 108 H (75-99) mg/dL Magnesium (1.6-2.3) mg/dL Assessment and Plan (1) Anemia associated with acute blood loss Narrative/Plan: 69-year-old female presenting with symptoms of black tarry stools and maroon- colored stools with acute fall in her hemoglobin. EGD performed in evaluation with no evidence of upper GI bleed and a small hiatal hernia noted. Colonoscopy with diverticulosis noted throughout the colon as well as old blood with no a ctive bleeding, prep was fair due to blood and clots which could not be suctioned. Current Visit: Yes Status: Acute Code(s): D62 - ACUTE POSTHEMORRHAGIC ANEMIA SNOMED Code(s): 132880677 (2) Chronic liver disease Narrative/Plan: Patient has a history of hepatic encephalopathy on lactulose and rifaximin therapy for which she was discharged after admission to [facility] suspicion for underlying chronic liver disease with cirrhosis. Current Visit: Yes Status: Acute Code(s): K76.9 - LIVER DISEASE, UNSPECIFIED SNOMED Code(s): 819164628 (3) GI bleed Current Visit: Yes Status: Acute Code(s): K92.2 - GASTROINTESTINAL HEMORRHAGE, UNSPECIFIED SNOMED Code(s): 58205892 Plan: Clear liquid diet Continue to monitor hemoglobin and hematocrit and transfuse as needed Continue Protonix therapy Continue lactulose and rifaximin Continue to monitor stool output If the patient's hemoglobin is stable tomorrow and there is no further signs of bleeding would recommend advancing diet to low fiber residual Further bleeding options for evaluation including CT angiography, video capsule endoscopy, or tagged red blood cell scan Thank you for allowing us to participate in the care of the patient
[2019-08-30] MEDS: HYDROcodone/APAP 10-325MG 1 EACH TAB PO PRN ×3 (02:33→22:06)
[2019-08-30 06:09] LABS: Glucose,Whole Blood 112 mg/dL (75-99)
[2019-08-30 06:11] LABS: Anisocytosis Slight; Basophils % (A) 0 %; Eosinophils # (A) 0.2 k/uL (0-0.7); Eosinophils % (A) 3 %; HCT 22.9 % (34.0-46.0); HGB 7.5 gm/dL (11.4-16.0); Hypochromasia Moderate; Lymphocytes # (A) 0.9 k/uL (1.0-4.8); Lymphocytes % (A) 19 %; MCH 31.9 pg (25.0-35.0); MCHC 32.5 g/dL (31.0-37.0); Macrocytosis Slight; Mean Platelet Volume 8.7; Monocytes # (A) 0.4 k/uL (0-1.0); Monocytes % (A) 7 %; Neutrophils # (A) 3.4 k/uL (1.3-7.7); Neutrophils % (A) 68 %; Platelet Count 110 k/uL (150-450); Poikilocytosis Slight; RBC 2.34 m/uL (3.80-5.40); RDW 17.1 % (11.5-15.5); WBC 4.9 k/uL (3.8-10.6)
[2019-08-30 06:22] LABS: Calcium 8.5 mg/dL (8.4-10.2)
[2019-08-30] MEDS: PANTOPRAZOLE 40 MG TABLET PO SCH (06:31)
[2019-08-30] MEDS: GABAPENTIN 300 MG CAP PO SCH ×3 (09:37→21:25)
[2019-08-30] MEDS: THIAMINE 100 MG TAB PO SCH (09:37)
[2019-08-30] MEDS: METOPROLOL TARTRATE 25 MG TAB PO SCH ×2 (09:37→21:26)
[2019-08-30] MEDS: ASPIRIN 81 MG PO SCH (09:37)
[2019-08-30] MEDS: POTASSIUM CHLORIDE ER 10 MEQ TAB.ER.PRT PO SCH (09:37)
[2019-08-30] MEDS: FERROUS SULFATE 325 MG TAB PO SCH (09:37)
[2019-08-30] MEDS: MULTIVITAMINS, THERA 1 EACH TAB PO SCH (09:37)
[2019-08-30] MEDS: SPIRONOLACTONE 25 MG TAB PO SCH (09:37)
[2019-08-30] MEDS: FOLIC ACID 1 MG TAB PO SCH (09:37)
--- NOTE | 2019-08-30 09:37 | P.PN ---
Subjective Progress Note Date: 08/28/19 Principal diagnosis: Acute blood loss anemia GI bleed Patient is a 69-year-old female with a known history of hypertension, hyperlipidemia, fibromyalgia, chronic CHF, remote arthritis, history of SVT, diabetes type 2 and diabetic peripheral neuropathy and other multiple medical problems came to ER with complaints of mid and carotid bowel movement daily at that day. Patient says that she is been on lactulose due to her liver disease and is having diarrhea and she takes lactulose. Denied any abdominal pain. No fever no chills. No compressive chest pain or shortness of breath. No palpitations. Denied any headache or dizziness or lightheadedness. Patient says she is tired and weak. Currently patient is not taking any blood in the 70s time. Patient was admitted to the hospital during the first week of zone with altered mental status and questionable seizures. Patient was transferred to [facility] where patient says that she was diagnosed with chronic liver disease and cirrhosis but patient could not recollect completely. Patient was started on rifaximin and lactulose at [facility] and patient was transferred to rehab. Laboratory data showed WBC 4.9, hemoglobin 9.3, platelets of 103 and INR 1.0, sodium 136, compression 5.6, BUN 46 and creatinine 1.54 Blood sugar 147 Magnesium 2.4 Ammonia 38 FOBT positive 08/26/2019 Patient is currently lying in the bed. Complaining of right upper extremity neuropathic pain. Patient was emotional at times and was crying. Otherwise denied any further episodes of rectal bleeding. Hemoglobin is slightly improved to 8.4. Gastroenterology is planning for endoscopy today. Denied any complaints of chest pain or shortness of. No fever no chills. No cough or sputum production. 08/27/2019 Patient is currently lying in the bed comfortably. EGD showed no active bleeding, old blood source of bleed noted. Mild gastritis antrum body. Small hiatal hernia. Right upper extremity pain is better. Otherwise hemoglobin level is 7.0 and repeat is 7.1. Denied any further episodes of rectal bleeding. No bowel movement today otherwise. Gastroenterology is planning for colonoscopy if hem oglobin continues to drop. Otherwise patient denied any chest pain or shortness of breath. No cough or sputum production. Patient is afebrile. Next and patient is being continued on Protonix. 08/27/18 Patient is currently awake and oriented 3. Right upper activity neuropathic pain is better. Otherwise hemoglobin level was 8.0 today. Patient underwent anoscopy today. Showed a moderate diverticulosis. Suspicion is likely diverticular bleed as a cause of anemia however complete visualization of the mucosa was limited due to blood and clots still present in the colon during endoscopy. If further fall in hemoglobin or sign of bleeding consideration can be for CT angiography, medial Anoscopy for Second Look Endoscopy. Gastroenterology Is Following. Patient otherwise denied any complaints of abdominal pain. No fever no chills. No cough or sputum production. Patient is currently on liquid diet. Current medications reviewed. Objective - Vital Signs Vital signs: Vital Signs Temp 98.3 F 08/28/19 12:03 Pulse 72 08/28/19 16:00 Resp 18 08/28/19 16:00 BP 106/61 08/28/19 16:00 Pulse Ox 97 08/28/19 16:00 Intake & Output 08/27/19 08/28/19 08/28/19 18:59 06:59 18:59 Intake Total 310 400 Output Total 500 300 Balance -500 310 100 Weight 112.1 kg 112.1 kg Intake: IV 200 Oral 200 Blood Product 310 Rc As-1 Unit 310 [id number] Output: Urine 500 300 Other: Voiding Method Bedside Commode Toilet Toilet Bedside Commode Bedside Commode # Voids 3 1 1 # Bowel Movements 3 - Exam PHYSICAL EXAMINATION: Patient is lying in the bed comfortably, no acute distress, awake alert and oriented. Morbidly obese. HEENT: Normocephalic. Neck is supple. Pupils reactive. Nostrils clear. Oral cavity is moist. Ears reveal no drainage. Neck reveals no JVD, carotid bruits, or thyromegaly. CHEST EXAMINATION: Trachea is central. Symmetrical expansion. Bibasilar diminished air entry Lung razo clear to auscultation and percussion. CARDIAC: Normal S1, S2 with no gallops. No murmurs ABDOMEN: Soft. Bowel sounds normal. No organomegaly. No abdominal bruits. Extremities: Trace edema. No clubbing or cyanosis Neurologically awake, alert, oriented x3 with well-coordinated movements. No focal deficits noted Skin: No rash or skin lesions. Psychiatric: Coperative. Nonsuicidal. Anxious. Musculoskeletal: No joint swelling or deformity. Normal range of motion. = - Labs CBC & Chem 7: 08/30/19 05:31 08/30/19 05:31 Labs: Abnormal Lab Results - Last 24 Hours (Table) 08/27/19 08/27/19 08/27/19 Range/Units 19:10 19:10 20:45 WBC (3.8-10.6) k/uL RBC 2.39 L (3.80-5.40) m/uL Hgb 7.6 L (11.4-16.0) gm/dL Hct 23.5 L (34.0-46.0) % RDW 16.9 H (11.5-15.5) % Plt Count 108 L (150-450) k/uL POC Glucose (mg/dL) 130 H (75-99) mg/dL Crossmatch See Detail 08/28/19 08/28/19 Range/Units 05:39 06:02 WBC 3.0 L (3.8-10.6) k/uL RBC 2.51 L (3.80-5.40) m/uL Hgb 8.0 L (11.4-16.0) gm/dL Hct 24.0 L (34.0-46.0) % RDW 16.7 H (11.5-15.5) % Plt Count 80 L (150-450) k/uL POC Glucose (mg/dL) 118 H (75-99) mg/dL Crossmatch Assessment and Plan Assessment: Acute GI bleed with maroon-colored stools and FOBT positive. Status post EGD sh owed mild gastritis. No active bleeding. Status post colonoscopy. Possible diverticular bleed. Acute blood loss anemia Acute kidney injury most likely prerenal Mild hyperkalemia secondary to GI bleed History of hepatic encephalopathy. Patient is on lactulose and rifaximin that was started about a month ago at [facility]. All underlying chronic liver disease with cirrhosis and chronic thrombocytopenia. Mild hyperammonemia Chronic CHF with exacerbation dysfunction Fibromyalgia Hypertension Hyperlipidemia Rheumatoid arthritis History of seizure disorder Jazmin SVT Diabetic peripheral neuropathy Right breast cancer with surgery and chemotherapy Anxiety/depression No prior history of smoking Morbid obesity with BMI 41.3 DVT prophylaxis SCDs Plan: Patient will be continued on IV hydration and monitor H&H. Continue with PPI twice daily. Continued on lactulose and rifaximin. Continue with the home medications GI is planning for endoscopy today. Further recommendations based on clinical course. Prognosis is guarded. PT OT will be consulted and patient is currently at [facility] on the [place] for rehab. Time with Patient: Greater than 30
[2019-08-30] MEDS: LACTULOSE 20 GM/30 ML CUP PO SCH ×2 (09:38→21:27)
[2019-08-30] MEDS: ANASTROZOLE 1 MG TAB PO SCH (09:38)
[2019-08-30] MEDS: SENNOSIDES 8.6 MG TAB PO SCH ×2 (09:38→21:25)
[2019-08-30] MEDS: RIFAXIMIN 550 MG TABLET PO SCH ×2 (09:38→21:26)
--- NOTE | 2019-08-30 09:38 | P.PN ---
Subjective Progress Note Date: 08/29/19 Principal diagnosis: Acute blood loss anemia GI bleed Patient is a 69-year-old female with a known history of hypertension, hyperlipidemia, fibromyalgia, chronic CHF, remote arthritis, history of SVT, diabetes type 2 and diabetic peripheral neuropathy and other multiple medical problems came to ER with complaints of mid and carotid bowel movement daily at that day. Patient says that she is been on lactulose due to her liver disease and is having diarrhea and she takes lactulose. Denied any abdominal pain. No fever no chills. No compressive chest pain or shortness of breath. No palpitations. Denied any headache or dizziness or lightheadedness. Patient says she is tired and weak. Currently patient is not taking any blood in the 70s time. Patient was admitted to the hospital during the first week of zone with altered mental status and questionable seizures. Patient was transferred to [facility] where patient says that she was diagnosed with chronic liver disease and cirrhosis but patient could not recollect completely. Patient was started on rifaximin and lactulose at [facility] and patient was transferred to rehab. Laboratory data showed WBC 4.9, hemoglobin 9.3, platelets of 103 and INR 1.0, sodium 136, compression 5.6, BUN 46 and creatinine 1.54 Blood sugar 147 Magnesium 2.4 Ammonia 38 FOBT positive 08/26/2019 Patient is currently lying in the bed. Complaining of right upper extremity neuropathic pain. Patient was emotional at times and was crying. Otherwise denied any further episodes of rectal bleeding. Hemoglobin is slightly improved to 8.4. Gastroenterology is planning for endoscopy today. Denied any complaints of chest pain or shortness of. No fever no chills. No cough or sputum production. 08/27/2019 Patient is currently lying in the bed comfortably. EGD showed no active bleeding, old blood source of bleed noted. Mild gastritis antrum body. Small hiatal hernia. Right upper extremity pain is better. Otherwise hemoglobin level is 7.0 and repeat is 7.1. Denied any further episodes of rectal bleeding. No bowel movement today otherwise. Gastroenterology is planning for colonoscopy if hem oglobin continues to drop. Otherwise patient denied any chest pain or shortness of breath. No cough or sputum production. Patient is afebrile. Next and patient is being continued on Protonix. 08/28/19 Patient is currently awake and oriented 3. Right upper activity neuropathic pain is better. Otherwise hemoglobin level was 8.0 today. Patient underwent anoscopy today. Showed a moderate diverticulosis. Suspicion is likely diverticular bleed as a cause of anemia however complete visualization of the mucosa was limited due to blood and clots still present in the colon during endoscopy. If further fall in hemoglobin or sign of bleeding consideration can be for CT angiography, medial Anoscopy for Second Look Endoscopy. Gastroenterology Is Following. Patient otherwise denied any complaints of abdominal pain. No fever no chills. No cough or sputum production. Patient is currently on liquid diet. 08/29/2019 Patient is currently resting in the bed comfortable. Hemoglobin did drop to 7.5 today. Patient is currently on clear liquid diet. GI is following. Considering Endoscopy versus CT angiogram to rule out GI bleed. Patient did not have any bowel movement today. No nausea vomiting or abdominal pain. Patient is tolerating liquid diet and wants to be advanced. No complains of chest pain or shortness of breath. Current medications reviewed. Objective - Vital Signs Vital signs: Vital Signs Temp 97.0 F L 08/29/19 10:55 Pulse 78 08/29/19 10:55 Resp 18 08/29/19 10:55 BP 117/77 08/29/19 10:55 Pulse Ox 96 08/29/19 10:55 Intake & Output 08/28/19 08/29/19 08/29/19 18:59 06:59 18:59 Intake Total 630 360 Output Total 701 Balance -71 360 Weight 112.1 kg 111.9 kg Intake: IV 200 Oral 430 360 Output: Urine 701 Other: Voiding Method Toilet Toilet Toilet Bedside Commode Bedside Commode Bedside Commode # Voids 400 1 1 # Bowel Movements 0 - Exam PHYSICAL EXAMINATION: Patient is lying in the bed comfortably, no acute distress, awake alert and oriented. Morbidly obese. HEENT: Normocephalic. Neck is supple. Pupils reactive. Nostrils clear. Oral cavity is moist. Ears reveal no drainage. Neck reveals no JVD, carotid bruits, or thyromegaly. CHEST EXAMINATION: Trachea is central. Symmetrical expansion. Bibasilar diminished air entry Lung razo clear to auscultation and percussion. CARDIAC: Normal S1, S2 with no gallops. No murmurs ABDOMEN: Soft. Bowel sounds normal. No organomegaly. No abdominal bruits. Extremities: Trace edema. No clubbing or cyanosis Neurologically awake, alert, oriented x3 with well-coordinated movements. No focal deficits noted Skin: No rash or skin lesions. Psychiatric: Coperative. Nonsuicidal. Anxious. Musculoskeletal: No joint swelling or deformity. Normal range of motion. = - Labs CBC & Chem 7: 08/30/19 05:31 08/30/19 05:31 Labs: Abnormal Lab Results - Last 24 Hours (Table) 08/28/19 08/28/19 08/28/19 Range/Units 05:39 17:03 19:55 RBC (3.80-5.40) m/uL Hgb (11.4-16.0) gm/dL Hct (34.0-46.0) % RDW (11.5-15.5) % Plt Count (150-450) k/uL Chloride 108 H (98-107) mmol/L Carbon Dioxide 21 L (22-30) mmol/L BUN 36 H (7-17) mg/dL Creatinine 1.34 H (0.52-1.04) mg/dL Glucose 100 H (74-99) mg/dL POC Glucose (mg/dL) 102 H 175 H (75-99) mg/dL Magnesium 2.4 H (1.6-2.3) mg/dL 08/29/19 08/29/19 08/29/19 Range/Units 06:04 06:37 11:54 RBC 2.35 L (3.80-5.40) m/uL Hgb 7.4 L (11.4-16.0) gm/dL Hct 22.9 L (34.0-46.0) % RDW 16.9 H (11.5-15.5) % Plt Count 90 L (150-450) k/uL Chloride (98-107) mmol/L Carbon Dioxide (22-30) mmol/L BUN (7-17) mg/dL Creatinine (0.52-1.04) mg/dL Glucose (74-99) mg/dL POC Glucose (mg/dL) 108 H 108 H (75-99) mg/dL Magnesium (1.6-2.3) mg/dL Assessment and Plan Assessment: Acute GI bleed with maroon-colored stools and FOBT positive. Status post EGD showed mild gastritis. No active bleeding. Status post colonoscopy. Possible diverticular bleed. Acute blood loss anemia Acute kidney injury most likely prerenal Mild hyperkalemia secondary to GI bleed History of hepatic encephalopathy. Patient is on lactulose and rifaximin that was started about a month ago at [facility]. All underlying chronic liver disease with cirrhosis and chronic thrombocytopenia. Mild hyperammonemia Chronic CHF with exacerbation dysfunction Fibromyalgia Hypertension Hyperlipidemia Rheumatoid arthritis History of seizure disorder Jazmin SVT Diabetic peripheral neuropathy Right breast cancer with surgery and chemotherapy Anxiety/depression No prior history of smoking Morbid obesity with BMI 41.3 DVT prophylaxis SCDs Plan: Patient will be continued on IV hydration and monitor H&H. Continue with PPI twice daily. Continued on lactulose and rifaximin. Continue with the home medications GI is planning for endoscopy today. Further recommendations based on clinical course. Prognosis is guarded. PT OT will be consulted and patient is currently at [facility] for rehab. Time with Patient: Greater than 30
[2019-08-30] MEDS: LIDOCAINE 5% PATCH TOPICAL SCH (09:39)
[2019-08-30 11:47] LABS: Glucose,Whole Blood 89 mg/dL (75-99)
[2019-08-30 16:49] LABS: Glucose,Whole Blood 118 mg/dL (75-99)
[2019-08-30 19:35] LABS: Glucose,Whole Blood 135 mg/dL (75-99)
[2019-08-30] MEDS: INSULIN DETEMIR (LEVEMIR) 100 UNIT/ML SYR SQ SCH (21:27)
[2019-08-30] MEDS: MELATONIN 5 MG TABLET PO PRN (22:06)
[2019-08-31 06:05] LABS: Glucose,Whole Blood 134 mg/dL (75-99)
[2019-08-31] MEDS: HYDROcodone/APAP 10-325MG 1 EACH TAB PO PRN ×3 (06:15→21:02)
[2019-08-31] MEDS: PANTOPRAZOLE 40 MG TABLET PO SCH (06:15)
[2019-08-31 07:20] LABS: Calcium 8.5 mg/dL (8.4-10.2); Magnesium 2.5 mg/dL (1.6-2.3)
[2019-08-31] MEDS: LACTULOSE 20 GM/30 ML CUP PO SCH ×2 (08:31→22:02)
[2019-08-31] MEDS: LIDOCAINE 5% PATCH TOPICAL SCH (08:31)
[2019-08-31] MEDS: RIFAXIMIN 550 MG TABLET PO SCH ×3 (08:32→21:04)
[2019-08-31] MEDS: METOPROLOL TARTRATE 25 MG TAB PO SCH ×2 (08:41→21:02)
[2019-08-31] MEDS: MULTIVITAMINS, THERA 1 EACH TAB PO SCH (08:41)
[2019-08-31] MEDS: FERROUS SULFATE 325 MG TAB PO SCH (08:41)
[2019-08-31] MEDS: ASPIRIN 81 MG PO SCH (08:41)
[2019-08-31] MEDS: GABAPENTIN 300 MG CAP PO SCH ×3 (08:41→22:02)
[2019-08-31] MEDS: POTASSIUM CHLORIDE ER 10 MEQ TAB.ER.PRT PO SCH (08:41)
[2019-08-31] MEDS: FOLIC ACID 1 MG TAB PO SCH (08:41)
[2019-08-31] MEDS: ANASTROZOLE 1 MG TAB PO SCH (08:41)
[2019-08-31] MEDS: SPIRONOLACTONE 25 MG TAB PO SCH (08:42)
[2019-08-31] MEDS: THIAMINE 100 MG TAB PO SCH (08:42)
[2019-08-31] MEDS: SENNOSIDES 8.6 MG TAB PO SCH ×2 (08:42→21:02)
[2019-08-31 10:35] LABS: Anisocytosis Slight; Basophils % (A) 1 %; Eosinophils # (A) 0.1 k/uL (0-0.7); Eosinophils % (A) 4 %; HCT 21.8 % (34.0-46.0); Hypochromasia Moderate; Lymphocytes # (A) 0.9 k/uL (1.0-4.8); Lymphocytes % (A) 27 %; MCH 29.9 pg (25.0-35.0); MCHC 30.5 g/dL (31.0-37.0); MCV 98.1 fL (80.0-100.0); Macrocytosis Slight; Mean Platelet Volume 10.1; Monocytes # (A) 0.3 k/uL (0-1.0); Monocytes % (A) 9 %; Neutrophils # (A) 1.8 k/uL (1.3-7.7); Neutrophils % (A) 56 %; Poikilocytosis Slight; RBC 2.22 m/uL (3.80-5.40); RDW 17.5 % (11.5-15.5); WBC 3.2 k/uL (3.8-10.6)
[2019-08-31 10:40] LABS: HGB 6.7 gm/dL (11.4-16.0)
[2019-08-31 11:23] LABS: Glucose,Whole Blood 151 mg/dL (75-99)
[2019-08-31 11:24] LABS: Platelet Count 92 k/uL (150-450)
[2019-08-31 11:25] LABS: Polychromasia Present
[2019-08-31] MEDS: ONDANSETRON 4 MG/2 ML VIAL IVP PRN (11:55)
[2019-08-31 16:40] LABS: Glucose,Whole Blood 168 mg/dL (75-99)
[2019-08-31 20:48] LABS: Glucose,Whole Blood 220 mg/dL (75-99)
[2019-08-31] MEDS: INSULIN DETEMIR (LEVEMIR) 100 UNIT/ML SYR SQ SCH (21:00)
[2019-08-31] MEDS: MELATONIN 5 MG TABLET PO PRN (23:15)
--- NOTE | 2019-08-31 23:35 | P.PN ---
Subjective Progress Note Date: 08/30/19 Principal diagnosis: Acute blood loss anemia GI bleed Patient is a 69-year-old female with a known history of hypertension, hyperlipidemia, fibromyalgia, chronic CHF, remote arthritis, history of SVT, diabetes type 2 and diabetic peripheral neuropathy and other multiple medical problems came to ER with complaints of mid and carotid bowel movement daily at that day. Patient says that she is been on lactulose due to her liver disease and is having diarrhea and she takes lactulose. Denied any abdominal pain. No fever no chills. No compressive chest pain or shortness of breath. No palpitations. Denied any headache or dizziness or lightheadedness. Patient says she is tired and weak. Currently patient is not taking any blood in the 70s time. Patient was admitted to the hospital during the first week of zone with altered mental status and questionable seizures. Patient was transferred to [facility] where patient says that she was diagnosed with chronic liver disease and cirrhosis but patient could not recollect completely. Patient was started on rifaximin and lactulose at [facility] and patient was transferred to rehab. Laboratory data showed WBC 4.9, hemoglobin 9.3, platelets of 103 and INR 1.0, sodium 136, compression 5.6, BUN 46 and creatinine 1.54 Blood sugar 147 Magnesium 2.4 Ammonia 38 FOBT positive 08/26/2019 Patient is currently lying in the bed. Complaining of right upper extremity neuropathic pain. Patient was emotional at times and was crying. Otherwise denied any further episodes of rectal bleeding. Hemoglobin is slightly improved to 8.4. Gastroenterology is planning for endoscopy today. Denied any complaints of chest pain or shortness of. No fever no chills. No cough or sputum production. 08/27/2019 Patient is currently lying in the bed comfortably. EGD showed no active bleeding, old blood source of bleed noted. Mild gastritis antrum body. Small hiatal hernia. Right upper extremity pain is better. Otherwise hemoglobin level is 7.0 and repeat is 7.1. Denied any further episodes of rectal bleeding. No bowel movement today otherwise. Gastroenterology is planning for colonoscopy if hem oglobin continues to drop. Otherwise patient denied any chest pain or shortness of breath. No cough or sputum production. Patient is afebrile. Next and patient is being continued on Protonix. 08/28/19 Patient is currently awake and oriented 3. Right upper activity neuropathic pain is better. Otherwise hemoglobin level was 8.0 today. Patient underwent anoscopy today. Showed a moderate diverticulosis. Suspicion is likely diverticular bleed as a cause of anemia however complete visualization of the mucosa was limited due to blood and clots still present in the colon during endoscopy. If further fall in hemoglobin or sign of bleeding consideration can be for CT angiography, medial Anoscopy for Second Look Endoscopy. Gastroenterology Is Following. Patient otherwise denied any complaints of abdominal pain. No fever no chills. No cough or sputum production. Patient is currently on liquid diet. 08/29/2019 Patient is currently resting in the bed comfortable. Hemoglobin did drop to 7.5 today. Patient is currently on clear liquid diet. GI is following. Considering Endoscopy versus CT angiogram to rule out GI bleed. Patient did not have any bowel movement today. No nausea vomiting or abdominal pain. Patient is tolerating liquid diet and wants to be advanced. No complains of chest pain or shortness of breath. 08/30/2019 Patient is currently sitting in the bed comfortably. Denied any complaints of abdominal pain. Denied any bowel movement last few days. Hemoglobin is 7.5 today. Tolerating clear liquid diet and wants to try to be advanced. We will continue to monitor hemoglobin depending on which further plans including repeat colonoscopy and possible capsule endoscopy. Gastroenterology is following. Patient denied any complaints of chest pain or shortness of breath. Right upper extremity pain is better. No fever no chills. Current medications reviewed. Objective - Vital Signs Vital signs: Vital Signs Temp 97.7 F 08/30/19 08:00 Pulse 62 08/30/19 16:00 Resp 19 08/30/19 16:00 BP 104/55 08/30/19 16:00 Pulse Ox 98 08/30/19 16:00 Intake & Output 08/30/19 08/30/19 08/31/19 06:59 18:59 06:59 Intake Total 360 Output Total 1800 Balance -1800 360 Weight 112.4 kg 112.4 kg Intake: Oral 360 Output: Urine 1800 Other: Voiding Method Toilet Toilet Bedside Commode Bedside Commode # Voids 1 2 - Exam PHYSICAL EXAMINATION: Patient is lying in the bed comfortably, no acute distress, awake alert and oriented. Morbidly obese. HEENT: Normocephalic. Neck is supple. Pupils reactive. Nostrils clear. Oral cavity is moist. Ears reveal no drainage. Neck reveals no JVD, carotid bruits, or thyromegaly. CHEST EXAMINATION: Trachea is central. Symmetrical expansion. Bibasilar diminished air entry Lung razo clear to auscultation and percussion. CARDIAC: Normal S1, S2 with no gallops. No murmurs ABDOMEN: Soft. Bowel sounds normal. No organomegaly. No abdominal bruits. Extremities: Trace edema. No clubbing or cyanosis Neurologically awake, alert, oriented x3 with well-coordinated movements. No focal deficits noted Skin: No rash or skin lesions. Psychiatric: Coperative. Nonsuicidal. Anxious. Musculoskeletal: No joint swelling or deformity. Normal range of motion. = - Labs CBC & Chem 7: 08/31/19 05:48 08/31/19 05:48 Labs: Abnormal Lab Results - Last 24 Hours (Table) 08/30/19 08/30/19 08/30/19 Range/Units 05:31 05:31 06:08 RBC 2.34 L (3.80-5.40) m/uL Hgb 7.5 L (11.4-16.0) gm/dL Hct 22.9 L (34.0-46.0) % RDW 17.1 H (11.5-15.5) % Plt Count 110 L (150-450) k/uL Lymphocytes # 0.9 L (1.0-4.8) k/uL Sodium 134 L (137-145) mmol/L BUN 28 H (7-17) mg/dL Creatinine 1.39 H (0.52-1.04) mg/dL POC Glucose (mg/dL) 112 H (75-99) mg/dL 08/30/19 08/30/19 Range/Units 16:48 19:33 RBC (3.80-5.40) m/uL Hgb (11.4-16.0) gm/dL Hct (34.0-46.0) % RDW (11.5-15.5) % Plt Count (150-450) k/uL Lymphocytes # (1.0-4.8) k/uL Sodium (137-145) mmol/L BUN (7-17) mg/dL Creatinine (0.52-1.04) mg/dL POC Glucose (mg/dL) 118 H 135 H (75-99) mg/dL Assessment and Plan Assessment: Acute GI bleed with maroon-colored stools and FOBT positive. Status post EGD showed mild gastritis. No active bleeding. Status post colonoscopy. Possible diverticular bleed. Acute blood loss anemia Acute kidney injury most likely prerenal Mild hyperkalemia secondary to GI bleed History of hepatic encephalopathy. Patient is on lactulose and rifaximin that was started about a month ago at [facility]. All underlying chronic liver disease with cirrhosis and chronic thrombocytopenia. Mild hyperammonemia Chronic CHF with exacerbation dysfunction Fibromyalgia Hypertension Hyperlipidemia Rheumatoid arthritis History of seizure disorder Jazmin SVT Diabetic peripheral neuropathy Right breast cancer with surgery and chemotherapy Anxiety/depression No prior history of smoking Morbid obesity with BMI 41.3 DVT prophylaxis SCDs Plan: Patient will be continued on IV hydration and monitor H&H. Continue with PPI twice daily. Continued on lactulose and rifaximin. Continue with the home medications GI is planning for endoscopy today. Further recommendations based on clinical course. Prognosis is guarded. PT OT will be consulted and patient is currently at [facility] for rehab. Time with Patient: Greater than 30
--- NOTE | 2019-08-31 23:39 | P.PN ---
Subjective Progress Note Date: 08/31/19 Principal diagnosis: Acute blood loss anemia GI bleed Patient is a 69-year-old female with a known history of hypertension, hyperlipidemia, fibromyalgia, chronic CHF, remote arthritis, history of SVT, diabetes type 2 and diabetic peripheral neuropathy and other multiple medical problems came to ER with complaints of mid and carotid bowel movement daily at that day. Patient says that she is been on lactulose due to her liver disease and is having diarrhea and she takes lactulose. Denied any abdominal pain. No fever no chills. No compressive chest pain or shortness of breath. No palpitations. Denied any headache or dizziness or lightheadedness. Patient says she is tired and weak. Currently patient is not taking any blood in the 70s time. Patient was admitted to the hospital during the first week of zone with altered mental status and questionable seizures. Patient was transferred to [facility] where patient says that she was diagnosed with chronic liver disease and cirrhosis but patient could not recollect completely. Patient was started on rifaximin and lactulose at [facility] and patient was transferred to rehab. Laboratory data showed WBC 4.9, hemoglobin 9.3, platelets of 103 and INR 1.0, sodium 136, compression 5.6, BUN 46 and creatinine 1.54 Blood sugar 147 Magnesium 2.4 Ammonia 38 FOBT positive 08/26/2019 Patient is currently lying in the bed. Complaining of right upper extremity neuropathic pain. Patient was emotional at times and was crying. Otherwise denied any further episodes of rectal bleeding. Hemoglobin is slightly improved to 8.4. Gastroenterology is planning for endoscopy today. Denied any complaints of chest pain or shortness of. No fever no chills. No cough or sputum production. 08/27/2019 Patient is currently lying in the bed comfortably. EGD showed no active bleeding, old blood source of bleed noted. Mild gastritis antrum body. Small hiatal hernia. Right upper extremity pain is better. Otherwise hemoglobin level is 7.0 and repeat is 7.1. Denied any further episodes of rectal bleeding. No bowel movement today otherwise. Gastroenterology is planning for colonoscopy if hem oglobin continues to drop. Otherwise patient denied any chest pain or shortness of breath. No cough or sputum production. Patient is afebrile. Next and patient is being continued on Protonix. 08/28/19 Patient is currently awake and oriented 3. Right upper activity neuropathic pain is better. Otherwise hemoglobin level was 8.0 today. Patient underwent anoscopy today. Showed a moderate diverticulosis. Suspicion is likely diverticular bleed as a cause of anemia however complete visualization of the mucosa was limited due to blood and clots still present in the colon during endoscopy. If further fall in hemoglobin or sign of bleeding consideration can be for CT angiography, medial Anoscopy for Second Look Endoscopy. Gastroenterology Is Following. Patient otherwise denied any complaints of abdominal pain. No fever no chills. No cough or sputum production. Patient is currently on liquid diet. 08/29/2019 Patient is currently resting in the bed comfortable. Hemoglobin did drop to 7.5 today. Patient is currently on clear liquid diet. GI is following. Considering Endoscopy versus CT angiogram to rule out GI bleed. Patient did not have any bowel movement today. No nausea vomiting or abdominal pain. Patient is tolerating liquid diet and wants to be advanced. No complains of chest pain or shortness of breath. 08/30/2019 Patient is currently sitting in the bed comfortably. Denied any complaints of abdominal pain. Denied any bowel movement last few days. Hemoglobin is 7.5 today. Tolerating clear liquid diet and wants to try to be advanced. We will continue to monitor hemoglobin depending on which further plans including repeat colonoscopy and possible capsule endoscopy. Gastroenterology is following. Patient denied any complaints of chest pain or shortness of breath. Right upper extremity pain is better. No fever no chills. 08/31/2019 Patient is currently lying in the bed comfortably. Complains of blood in the stool again today. Hemoglobin did drop to 6.7. Patient is being transfused with 1 unit of PRBC. Patient was seen by gastroenterology. Refused to take preparation for colonoscopy. GI is planning for capsule endoscopy. No complaints of chest pain or shortness breath. Afebrile. Sodium 132, potassium 5.0, BUN 31 and creatinine 1.54 Current medications reviewed. Objective - Vital Signs Vital signs: Vital Signs Temp 98.3 F 08/31/19 18:01 Pulse 59 L 08/31/19 18:01 Resp 18 08/31/19 18:01 BP 92/65 08/31/19 18:31 Pulse Ox 98 08/31/19 18:01 Intake & Output 08/31/19 08/31/19 09/01/19 06:59 18:59 06:59 Intake Total 1450 Output Total 1 Balance -1 1450 Weight 113 kg Intake: Oral 1140 Blood Product 310 Rc As-1 Unit 310 [id number] Output: Urine 1 Other: Voiding Method Toilet Toilet Bedside Commode # Voids 2 - Exam PHYSICAL EXAMINATION: Patient is lying in the bed comfortably, no acute distress, awake alert and oriented. Morbidly obese. HEENT: Normocephalic. Neck is supple. Pupils reactive. Nostrils clear. Oral cavity is moist. Ears reveal no drainage. Neck reveals no JVD, carotid bruits, or thyromegaly. CHEST EXAMINATION: Trachea is central. Symmetrical expansion. Bibasilar diminished air entry Lung razo clear to auscultation and percussion. CARDIAC: Normal S1, S2 with no gallops. No murmurs ABDOMEN: Soft. Bowel sounds normal. No organomegaly. No abdominal bruits. Extremities: Trace edema. No clubbing or cyanosis Neurologically awake, alert, oriented x3 with well-coordinated movements. No focal deficits noted Skin: No rash or skin lesions. Psychiatric: Coperative. Nonsuicidal. Anxious. Musculoskeletal: No joint swelling or deformity. Normal range of motion. = - Labs CBC & Chem 7: 08/31/19 05:48 08/31/19 05:48 Labs: Abnormal Lab Results - Last 24 Hours (Table) 08/31/19 08/31/19 08/31/19 Range/Units 05:48 05:48 06:04 WBC 3.2 L (3.8-10.6) k/uL RBC 2.22 L (3.80-5.40) m/uL Hgb 6.7 L* (11.4-16.0) gm/dL Hct 21.8 L (34.0-46.0) % MCHC 30.5 L (31.0-37.0) g/dL RDW 17.5 H (11.5-15.5) % Plt Count 92 L (150-450) k/uL Lymphocytes # 0.9 L (1.0-4.8) k/uL Sodium 132 L (137-145) mmol/L Carbon Dioxide 21 L (22-30) mmol/L BUN 31 H (7-17) mg/dL Creatinine 1.54 H (0.52-1.04) mg/dL Glucose 113 H (74-99) mg/dL POC Glucose (mg/dL) 134 H (75-99) mg/dL Magnesium 2.5 H (1.6-2.3) mg/dL Crossmatch 08/31/19 08/31/19 08/31/19 Range/Units 10:58 11:22 16:39 WBC (3.8-10.6) k/uL RBC (3.80-5.40) m/uL Hgb (11.4-16.0) gm/dL Hct (34.0-46.0) % MCHC (31.0-37.0) g/dL RDW (11.5-15.5) % Plt Count (150-450) k/uL Lymphocytes # (1.0-4.8) k/uL Sodium (137-145) mmol/L Carbon Dioxide (22-30) mmol/L BUN (7-17) mg/dL Creatinine (0.52-1.04) mg/dL Glucose (74-99) mg/dL POC Glucose (mg/dL) 151 H 168 H (75-99) mg/dL Magnesium (1.6-2.3) mg/dL Crossmatch See Detail 08/31/19 Range/Units 20:47 WBC (3.8-10.6) k/uL RBC (3.80-5.40) m/uL Hgb (11.4-16.0) gm/dL Hct (34.0-46.0) % MCHC (31.0-37.0) g/dL RDW (11.5-15.5) % Plt Count (150-450) k/uL Lymphocytes # (1.0-4.8) k/uL Sodium (137-145) mmol/L Carbon Dioxide (22-30) mmol/L BUN (7-17) mg/dL Creatinine (0.52-1.04) mg/dL Glucose (74-99) mg/dL POC Glucose (mg/dL) 220 H (75-99) mg/dL Magnesium (1.6-2.3) mg/dL Crossmatch Assessment and Plan Assessment: Acute GI bleed with maroon-colored stools and FOBT positive. Status post EGD showed mild gastritis. No active bleeding. Status post colonoscopy. Possible diverticular bleed. Acute blood loss anemia Acute kidney injury most likely prerenal Mild hyperkalemia secondary to GI bleed History of hepatic encephalopathy. Patient is on lactulose and rifaximin that was started about a month ago at [facility]. All underlying chronic liver disease with cirrhosis and chronic thrombocytopenia. Mild hyperammonemia Chronic CHF with exacerbation dysfunction Fibromyalgia Hypertension Hyperlipidemia Rheumatoid arthritis History of seizure disorder Jazmin SVT Diabetic peripheral neuropathy Right breast cancer with surgery and chemotherapy Anxiety/depression No prior history of smoking Morbid obesity with BMI 41.3 DVT prophylaxis SCDs Plan: Patient will be continued on IV hydration and monitor H&H. Continue with PPI twice daily. Continued on lactulose and rifaximin. Continue with the home medications. monitor H&H GI is planning for endoscopy today. Further recommendations based on clinical course. Prognosis is guarded. PT OT will be consulted and patient is currently at [facility] for rehab. Time with Patient: Greater than 30
[2019-09-01] MEDS: HYDROcodone/APAP 10-325MG 1 EACH TAB PO PRN ×3 (04:07→22:23)
[2019-09-01] MEDS: ONDANSETRON 4 MG/2 ML VIAL IVP PRN (06:01)
[2019-09-01 06:07] LABS: Glucose,Whole Blood 141 mg/dL (75-99)
[2019-09-01 06:11] LABS: Anisocytosis Slight; HCT 23.9 % (34.0-46.0); HGB 7.6 gm/dL (11.4-16.0); Hypochromasia Moderate; MCH 31.1 pg (25.0-35.0); MCHC 31.7 g/dL (31.0-37.0); Macrocytosis Slight; Mean Platelet Volume 8.6; Poikilocytosis Slight; RBC 2.44 m/uL (3.80-5.40); RDW 17.2 % (11.5-15.5); WBC 4.1 k/uL (3.8-10.6)
[2019-09-01 06:17] LABS: Platelet Count 92 k/uL (150-450)
[2019-09-01] MEDS: PANTOPRAZOLE 40 MG TABLET PO SCH (06:27)
[2019-09-01] MEDS: GABAPENTIN 300 MG CAP PO SCH ×3 (08:32→21:51)
[2019-09-01] MEDS: FOLIC ACID 1 MG TAB PO SCH (08:32)
[2019-09-01] MEDS: SENNOSIDES 8.6 MG TAB PO SCH ×2 (08:32→21:51)
[2019-09-01] MEDS: ANASTROZOLE 1 MG TAB PO SCH (08:32)
[2019-09-01] MEDS: METOPROLOL TARTRATE 25 MG TAB PO SCH ×2 (08:32→21:52)
[2019-09-01] MEDS: POTASSIUM CHLORIDE ER 10 MEQ TAB.ER.PRT PO SCH (08:32)
[2019-09-01] MEDS: SPIRONOLACTONE 25 MG TAB PO SCH (08:32)
[2019-09-01] MEDS: MULTIVITAMINS, THERA 1 EACH TAB PO SCH (08:32)
[2019-09-01] MEDS: ASPIRIN 81 MG PO SCH (08:32)
[2019-09-01] MEDS: FERROUS SULFATE 325 MG TAB PO SCH (08:32)
[2019-09-01] MEDS: THIAMINE 100 MG TAB PO SCH (08:32)
[2019-09-01] MEDS: LIDOCAINE 5% PATCH TOPICAL SCH (08:33)
[2019-09-01] MEDS: LACTULOSE 20 GM/30 ML CUP PO SCH ×2 (08:33→21:52)
[2019-09-01 11:13] LABS: Glucose,Whole Blood 149 mg/dL (75-99)
--- NOTE | 2019-09-01 11:16 | P.PN ---
Subjective Progress Note Date: 08/31/19 Principal diagnosis: GI bleed, melena, chronic liver disease, encephalopathy Patient seen lying in bed, reporting that she is tolerating her liquid diet. The patient had an additional 1 g fall in hemoglobin today. No abdominal pain reported. Objective - Vital Signs Vital signs: Vital Signs Temp 97.8 F 08/31/19 11:09 Pulse 67 08/31/19 11:09 Resp 18 08/31/19 11:09 BP 106/52 08/31/19 11:51 Pulse Ox 98 08/31/19 11:09 Intake & Output 08/30/19 08/31/19 08/31/19 18:59 06:59 18:59 Intake Total 360 120 Output Total 1 Balance 360 -1 120 Weight 112.4 kg 113 kg Intake: Oral 360 120 Output: Urine 1 Other: Voiding Method Toilet Toilet Toilet Bedside Commode Bedside Commode Bedside Commode # Voids 2 - Exam Constitutional: Lying in bed in no apparent distress Head: normocephalic/atraumatic Eyes: No icterus, no injection Mouth: Moist mucous membranes Nose: No discharge noted Neck: Trachea midline, no JVD Cardiac: S1S2 appreciated. Lungs: Normal air entry in all lung razo, no wheezing appreciated Abdomen: Soft, nontender, nondistended, normal bowel sounds. No guarding or rigidity Skin: No rashes, no jaundice Neuro: Awake alert and oriented, no focal deficits - Labs CBC & Chem 7: 09/01/19 05:46 08/31/19 05:48 Labs: Abnormal Lab Results - Last 24 Hours (Table) 08/30/19 08/30/19 08/31/19 Range/Units 16:48 19:33 05:48 WBC (3.8-10.6) k/uL RBC (3.80-5.40) m/uL Hgb (11.4-16.0) gm/dL Hct (34.0-46.0) % MCHC (31.0-37.0) g/dL RDW (11.5-15.5) % Plt Count (150-450) k/uL Lymphocytes # (1.0-4.8) k/uL Sodium 132 L (137-145) mmol/L Carbon Dioxide 21 L (22-30) mmol/L BUN 31 H (7-17) mg/dL Creatinine 1.54 H (0.52-1.04) mg/dL Glucose 113 H (74-99) mg/dL POC Glucose (mg/dL) 118 H 135 H (75-99) mg/dL Magnesium 2.5 H (1.6-2.3) mg/dL 08/31/19 08/31/19 08/31/19 Range/Units 05:48 06:04 11:22 WBC 3.2 L (3.8-10.6) k/uL RBC 2.22 L (3.80-5.40) m/uL Hgb 6.7 L* (11.4-16.0) gm/dL Hct 21.8 L (34.0-46.0) % MCHC 30.5 L (31.0-37.0) g/dL RDW 17.5 H (11.5-15.5) % Plt Count 92 L (150-450) k/uL Lymphocytes # 0.9 L (1.0-4.8) k/uL Sodium (137-145) mmol/L Carbon Dioxide (22-30) mmol/L BUN (7-17) mg/dL Creatinine (0.52-1.04) mg/dL Glucose (74-99) mg/dL POC Glucose (mg/dL) 134 H 151 H (75-99) mg/dL Magnesium (1.6-2.3) mg/dL Assessment and Plan (1) Anemia associated with acute blood loss Narrative/Plan: 69-year-old female presenting with symptoms of black tarry stools and maroon- colored stools with acute fall in her hemoglobin. EGD performed in evaluation with no evidence of upper GI bleed and a small hiatal hernia noted. Colonoscopy with diverticulosis noted throughout the colon as well as old blood with no active bleeding, prep was fair due to blood and clots which could not be suctioned. The patient's hemoglobin was down 1 g today found to be 6.7. Given the inadequate prep, with a large amount of old blood and clots throughout the colon cannot rule out GI bleed from possible large bowel AVM, although diverticular bleed is likely the underlying etiology of her symptoms. Patient was offered a repeat colonoscopy in order to have a second look with adequate prep of the colon however became tearful and refused the colonoscopy. Instead, we'll plan for small bowel capsule endoscopy to rule out small bowel bleed. Current Visit: Yes Status: Acute Code(s): D62 - ACUTE POSTHEMORRHAGIC ANEMIA SNOMED Code(s): 722010431 (2) Chronic liver disease Narrative/Plan: Patient has a history of hepatic encephalopathy on lactulose and rifaximin therapy for which she was discharged after admission to [facility] suspicion for underlying chronic liver disease with cirrhosis. Current Visit: Yes Status: Acute Code(s): K76.9 - LIVER DISEASE, UNSPECIFIED SNOMED Code(s): 652751577 (3) GI bleed Current Visit: Yes Status: Acute Code(s): K92.2 - GASTROINTESTINAL HEMORRHAGE, UNSPECIFIED SNOMED Code(s): 04424742 Plan: Clear liquid diet Continue to monitor hemoglobin and hematocrit and transfuse as needed Continue Protonix therapy Continue lactulose and rifaximin Continue to monitor stool output Patient offered second look colonoscopy, given large amounts of old blood and clots throughout the colon which prohibited complete visualization of the mucosa, however at this time she is refusing that she does not feel she can prep a second time Patient will be scheduled for video capsule endoscopy on Monday as she is currently eating a regular diet, will switch to a clear liquid diet tomorrow with magnesium citrate plan for the afternoon Thank you for allowing us to participate in the care of the patient
[2019-09-01 16:46] LABS: Glucose,Whole Blood 115 mg/dL (75-99)
[2019-09-01] MEDS ORDERED: MAGNESIUM CITRATE 296 ML BOTTLE PO ONE (17:00)
--- NOTE | 2019-09-01 19:43 | P.PN ---
Subjective Progress Note Date: 09/01/19 Principal diagnosis: GI bleed, melena, chronic liver disease, encephalopathy Patient seen lying in bed, reporting that she is tolerating her liquid diet. No GI bleeding her bowel movements reported. Objective - Vital Signs Vital signs: Vital Signs Temp 96.7 F L 09/01/19 08:47 Pulse 65 09/01/19 08:47 Resp 18 09/01/19 08:47 BP 105/53 09/01/19 08:47 Pulse Ox 100 09/01/19 08:47 Intake & Output 08/31/19 09/01/19 09/01/19 18:59 06:59 18:59 Intake Total 1450 480 240 Output Total 800 Balance 1450 -320 240 Weight 114.7 kg Intake: Oral 1140 480 240 Blood Product 310 Rc As-1 Unit 310 [id number] Output: Urine 800 Other: Voiding Method Toilet Toilet Toilet # Voids 2 1 - Exam Constitutional: Lying in bed in no apparent distress Head: normocephalic/atraumatic Eyes: No icterus, no injection Mouth: Moist mucous membranes Nose: No discharge noted Neck: Trachea midline, no JVD Cardiac: S1S2 appreciated. Lungs: Normal air entry in all lung razo, no wheezing appreciated Abdomen: Soft, nontender, nondistended, normal bowel sounds. No guarding or rigidity Skin: No rashes, no jaundice Neuro: Awake alert and oriented, no focal deficits - Labs CBC & Chem 7: 09/01/19 05:46 08/31/19 05:48 Labs: Abnormal Lab Results - Last 24 Hours (Table) 08/31/19 08/31/19 08/31/19 Range/Units 05:48 10:58 11:22 WBC 3.2 L (3.8-10.6) k/uL RBC 2.22 L (3.80-5.40) m/uL Hgb 6.7 L* (11.4-16.0) gm/dL Hct 21.8 L (34.0-46.0) % MCHC 30.5 L (31.0-37.0) g/dL RDW 17.5 H (11.5-15.5) % Plt Count 92 L (150-450) k/uL Lymphocytes # 0.9 L (1.0-4.8) k/uL POC Glucose (mg/dL) 151 H (75-99) mg/dL Crossmatch See Detail 08/31/19 08/31/19 09/01/19 Range/Units 16:39 20:47 05:46 WBC (3.8-10.6) k/uL RBC 2.44 L (3.80-5.40) m/uL Hgb 7.6 L (11.4-16.0) gm/dL Hct 23.9 L (34.0-46.0) % MCHC (31.0-37.0) g/dL RDW 17.2 H (11.5-15.5) % Plt Count 92 L (150-450) k/uL Lymphocytes # (1.0-4.8) k/uL POC Glucose (mg/dL) 168 H 220 H (75-99) mg/dL Crossmatch 09/01/19 09/01/19 Range/Units 06:05 11:12 WBC (3.8-10.6) k/uL RBC (3.80-5.40) m/uL Hgb (11.4-16.0) gm/dL Hct (34.0-46.0) % MCHC (31.0-37.0) g/dL RDW (11.5-15.5) % Plt Count (150-450) k/uL Lymphocytes # (1.0-4.8) k/uL POC Glucose (mg/dL) 141 H 149 H (75-99) mg/dL Crossmatch Assessment and Plan (1) Anemia associated with acute blood loss Narrative/Plan: 69-year-old female presenting with symptoms of black tarry stools and maroon- colored stools with acute fall in her hemoglobin. EGD performed in evaluation with no evidence of upper GI bleed and a small hiatal hernia noted. Colonoscopy with diverticulosis noted throughout the colon as well as old blood with no active bleeding, prep was fair due to blood and clots which could not be suctioned. The patient's hemoglobin was down 1 g yesterday found to be 6.7. Given the inadequate prep, with a large amount of old blood and clots throughout the colon cannot rule out GI bleed from possible large bowel AVM, although diverticular bleed is likely the underlying etiology of her symptoms. Patient was offered a repeat colonoscopy in order to have a second look with adequate prep of the colon however became tearful and refused the colonoscopy. Instead, we'll plan for small bowel capsule endoscopy to rule out small bowel bleed. Current Visit: Yes Status: Acute Code(s): D62 - ACUTE POSTHEMORRHAGIC ANEMIA SNOMED Code(s): 216063180 (2) Chronic liver disease Narrative/Plan: Patient has a history of hepatic encephalopathy on lactulose and rifaximin therapy for which she was discharged after admission to [facility] suspicion for underlying chronic liver disease with cirrhosis. Current Visit: Yes Status: Acute Code(s): K76.9 - LIVER DISEASE, UNSPECIFIED SNOMED Code(s): 580790203 (3) GI bleed Current Visit: Yes Status: Acute Code(s): K92.2 - GASTROINTESTINAL HEMORRHAGE, UNSPECIFIED SNOMED Code(s): 77300822 Plan: Clear liquid diet Continue to monitor hemoglobin and hematocrit and transfuse as needed Continue Protonix therapy Continue lactulose and rifaximin Continue to monitor stool output Patient offered second look colonoscopy, given large amounts of old blood and clots throughout the colon which prohibited complete visualization of the mucosa, however at this time she is refusing that she does not feel she can prep a second time Patient will be scheduled for video capsule endoscopy, will switch to a clear liquid diet tomorrow with magnesium citrate plan for the afternoon Thank you for allowing us to participate in the care of the patient
[2019-09-01 20:42] LABS: Glucose,Whole Blood 139 mg/dL (75-99)
[2019-09-01] MEDS: INSULIN DETEMIR (LEVEMIR) 100 UNIT/ML SYR SQ SCH (21:51)
[2019-09-01] MEDS: MELATONIN 5 MG TABLET PO PRN (22:23)
[2019-09-02 01:09] LABS: Glucose,Whole Blood 123 mg/dL (75-99)
[2019-09-02 06:05] LABS: Glucose,Whole Blood 110 mg/dL (75-99)
[2019-09-02] MEDS: PANTOPRAZOLE 40 MG TABLET PO SCH (06:37)
[2019-09-02 07:06] LABS: Anisocytosis Slight; Basophils % (A) 1 %; Eosinophils # (A) 0.2 k/uL (0-0.7); Eosinophils % (A) 4 %; HCT 24.1 % (34.0-46.0); HGB 7.7 gm/dL (11.4-16.0); Hypochromasia Marked; Lymphocytes % (A) 23 %; MCHC 32.1 g/dL (31.0-37.0); MCV 99.7 fL (80.0-100.0); Macrocytosis Slight; Mean Platelet Volume 8.4; Monocytes # (A) 0.4 k/uL (0-1.0); Monocytes % (A) 8 %; Neutrophils # (A) 2.6 k/uL (1.3-7.7); Neutrophils % (A) 60 %; Poikilocytosis Slight; RBC 2.42 m/uL (3.80-5.40); RDW 17.3 % (11.5-15.5); WBC 4.2 k/uL (3.8-10.6)
[2019-09-02 07:19] LABS: Platelet Count 90 k/uL (150-450)
[2019-09-02] MEDS ORDERED: SIMETHICONE 40 MG/0.6 ML DROPS 2,000 MG/30 ML BOTTLE PO ONE (10:14)
[2019-09-02 11:32] LABS: Glucose,Whole Blood 95 mg/dL (75-99)
[2019-09-02] MEDS: POTASSIUM CHLORIDE ER 10 MEQ TAB.ER.PRT PO SCH (14:50)
[2019-09-02] MEDS: ANASTROZOLE 1 MG TAB PO SCH (14:50)
[2019-09-02] MEDS: HYDROcodone/APAP 10-325MG 1 EACH TAB PO PRN ×2 (14:50→22:28)
[2019-09-02] MEDS: FOLIC ACID 1 MG TAB PO SCH (14:50)
[2019-09-02] MEDS: GABAPENTIN 300 MG CAP PO SCH ×3 (14:51→22:18)
[2019-09-02] MEDS: FERROUS SULFATE 325 MG TAB PO SCH (14:51)
[2019-09-02] MEDS: ASPIRIN 81 MG PO SCH (14:51)
[2019-09-02] MEDS: THIAMINE 100 MG TAB PO SCH (14:51)
[2019-09-02] MEDS: LACTULOSE 20 GM/30 ML CUP PO SCH ×2 (14:51→22:25)
[2019-09-02] MEDS: METOPROLOL TARTRATE 25 MG TAB PO SCH ×2 (14:51→22:19)
[2019-09-02] MEDS: SPIRONOLACTONE 25 MG TAB PO SCH (14:51)
[2019-09-02] MEDS: MULTIVITAMINS, THERA 1 EACH TAB PO SCH (14:51)
[2019-09-02] MEDS: SENNOSIDES 8.6 MG TAB PO SCH ×2 (14:51→22:19)
[2019-09-02] MEDS: LIDOCAINE 5% PATCH TOPICAL SCH (14:52)
--- NOTE | 2019-09-02 15:20 | PN ---
PROGRESS NOTE DATE OF SERVICE: 09/02/2019 REFERRED BY: Dr. Handy Delcid. The patient is a 69-year-old pleasant white female with history of chronic liver disease, underlying cirrhosis of the liver, admitted to the hospital with black tarry stools and drop in hemoglobin. She had an upper endoscopy done on August [address] Ingram that showed small hiatal hernia and gastritis. Colonoscopy done on August 27 showed diverticulosis. She dropped hemoglobin again to 6.7 g/dL yesterday and received a unit of blood transfusion. She is scheduled for a small bowel capsule endoscopy, which is ongoing currently. The patient is a poor historian. Denies any for bleeding. PHYSICAL EXAMINATION: Appears comfortable, no apparent distress. Vital signs stable. Blood pressure 112/86, pulse rate 89 per minute and afebrile. HEENT examination unremarkable. Conjunctivae are pink, sclerae anicteric. Oral cavity no lesions. Neck with no JVD or lymph node enlargement. Chest was clear to auscultation. Heart shows regular rate and rhythm. Abdomen is soft, nontender, nondistended. Bowel sounds are positive. No organomegaly. Extremities show no pedal edema. Skin no rashes. Neurologic: Alert and oriented x3. No focal deficits. LABS: WBC 4.2, hemoglobin 7.7, platelets 90. So far she received 2 units of PRBC transfusion this hospital admission. IMPRESSION: 1. Anemia/gastrointestinal bleed status post EGD and colonoscopy by Dr. Ingram in the last 4 days revealing mild gastritis and diverticulosis. She is scheduled for a small bowel capsule endoscopy to investigate this further. 2. Cirrhosis of the liver. 3. History of hepatic encephalopathy. RECOMMENDATIONS: 1. Continue with small bowel capsule study. 2. Monitor CBC on a daily basis. 3. Continue Protonix every day. 4. Continue lactulose and Xifaxan. 5. We will follow with you closely. Thank you for this consultation. MMODL / IJN: [id number] /
[2019-09-02 17:06] LABS: Glucose,Whole Blood 102 mg/dL (75-99)
[2019-09-02 20:16] LABS: Glucose,Whole Blood 166 mg/dL (75-99)
[2019-09-02] MEDS: INSULIN DETEMIR (LEVEMIR) 100 UNIT/ML SYR SQ SCH (22:20)
[2019-09-02] MEDS: MELATONIN 5 MG TABLET PO PRN (23:53)
--- NOTE | 2019-09-03 01:38 | P.PN ---
Subjective Progress Note Date: 09/01/19 Principal diagnosis: Acute blood loss anemia GI bleed Patient is a 69-year-old female with a known history of hypertension, hyperlipidemia, fibromyalgia, chronic CHF, remote arthritis, history of SVT, diabetes type 2 and diabetic peripheral neuropathy and other multiple medical problems came to ER with complaints of mid and carotid bowel movement daily at that day. Patient says that she is been on lactulose due to her liver disease and is having diarrhea and she takes lactulose. Denied any abdominal pain. No fever no chills. No compressive chest pain or shortness of breath. No palpitations. Denied any headache or dizziness or lightheadedness. Patient says she is tired and weak. Currently patient is not taking any blood in the 70s time. Patient was admitted to the hospital during the first week of zone with altered mental status and questionable seizures. Patient was transferred to [facility] where patient says that she was diagnosed with chronic liver disease and cirrhosis but patient could not recollect completely. Patient was started on rifaximin and lactulose at [facility] and patient was transferred to rehab. Laboratory data showed WBC 4.9, hemoglobin 9.3, platelets of 103 and INR 1.0, sodium 136, compression 5.6, BUN 46 and creatinine 1.54 Blood sugar 147 Magnesium 2.4 Ammonia 38 FOBT positive 08/26/2019 Patient is currently lying in the bed. Complaining of right upper extremity neuropathic pain. Patient was emotional at times and was crying. Otherwise denied any further episodes of rectal bleeding. Hemoglobin is slightly improved to 8.4. Gastroenterology is planning for endoscopy today. Denied any complaints of chest pain or shortness of. No fever no chills. No cough or sputum production. 08/27/2019 Patient is currently lying in the bed comfortably. EGD showed no active bleeding, old blood source of bleed noted. Mild gastritis antrum body. Small hiatal hernia. Right upper extremity pain is better. Otherwise hemoglobin level is 7.0 and repeat is 7.1. Denied any further episodes of rectal bleeding. No bowel movement today otherwise. Gastroenterology is planning for colonoscopy if hem oglobin continues to drop. Otherwise patient denied any chest pain or shortness of breath. No cough or sputum production. Patient is afebrile. Next and patient is being continued on Protonix. 08/28/19 Patient is currently awake and oriented 3. Right upper activity neuropathic pain is better. Otherwise hemoglobin level was 8.0 today. Patient underwent anoscopy today. Showed a moderate diverticulosis. Suspicion is likely diverticular bleed as a cause of anemia however complete visualization of the mucosa was limited due to blood and clots still present in the colon during endoscopy. If further fall in hemoglobin or sign of bleeding consideration can be for CT angiography, medial Anoscopy for Second Look Endoscopy. Gastroenterology Is Following. Patient otherwise denied any complaints of abdominal pain. No fever no chills. No cough or sputum production. Patient is currently on liquid diet. 08/29/2019 Patient is currently resting in the bed comfortable. Hemoglobin did drop to 7.5 today. Patient is currently on clear liquid diet. GI is following. Considering Endoscopy versus CT angiogram to rule out GI bleed. Patient did not have any bowel movement today. No nausea vomiting or abdominal pain. Patient is tolerating liquid diet and wants to be advanced. No complains of chest pain or shortness of breath. 08/30/2019 Patient is currently sitting in the bed comfortably. Denied any complaints of abdominal pain. Denied any bowel movement last few days. Hemoglobin is 7.5 today. Tolerating clear liquid diet and wants to try to be advanced. We will continue to monitor hemoglobin depending on which further plans including repeat colonoscopy and possible capsule endoscopy. Gastroenterology is following. Patient denied any complaints of chest pain or shortness of breath. Right upper extremity pain is better. No fever no chills. 08/31/2019 Patient is currently lying in the bed comfortably. Complains of blood in the stool again today. Hemoglobin did drop to 6.7. Patient is being transfused with 1 unit of PRBC. Patient was seen by gastroenterology. Refused to take preparation for colonoscopy. GI is planning for capsule endoscopy. No complaints of chest pain or shortness breath. Afebrile. Sodium 132, potassium 5.0, BUN 31 and creatinine 1.54 09/01/2019 Patient is currently lying in the bed complains of right arm pain and wants IV pain medications. Otherwise hemoglobin is at 7.6 today. Patient refused colonoscopy GI is planning for capsule endoscopy tomorrow. Monitor H&H Patient denied any complaints of chest pain or shortness of breath. No fever no chills. Current medications reviewed. Objective - Vital Signs Vital signs: Vital Signs Temp 98.2 F 09/01/19 20:00 Pulse 80 09/01/19 20:00 Resp 18 09/01/19 20:00 BP 115/72 09/01/19 20:00 Pulse Ox 100 09/01/19 20:00 Intake & Output 09/01/19 09/01/19 09/02/19 06:59 18:59 06:59 Intake Total 480 1720 Output Total 800 350 300 Balance -320 1370 -300 Weight 114.7 kg 114.7 kg Intake: Oral 480 1720 Output: Urine 800 350 300 Other: Voiding Method Toilet Toilet Toilet # Voids 1 1 # Bowel Movements 1 - Exam PHYSICAL EXAMINATION: Patient is lying in the bed comfortably, no acute distress, awake alert and oriented. Morbidly obese. HEENT: Normocephalic. Neck is supple. Pupils reactive. Nostrils clear. Oral cavity is moist. Ears reveal no drainage. Neck reveals no JVD, carotid bruits, or thyromegaly. CHEST EXAMINATION: Trachea is central. Symmetrical expansion. Bibasilar diminished air entry Lung razo clear to auscultation and percussion. CARDIAC: Normal S1, S2 with no gallops. No murmurs ABDOMEN: Soft. Bowel sounds normal. No organomegaly. No abdominal bruits. Extremities: Trace edema. No clubbing or cyanosis Neurologically awake, alert, oriented x3 with well-coordinated movements. No focal deficits noted Skin: No rash or skin lesions. Psychiatric: Coperative. Nonsuicidal. Anxious. Musculoskeletal: No joint swelling or deformity. Normal range of motion. = - Labs CBC & Chem 7: 09/02/19 06:52 08/31/19 05:48 Labs: Abnormal Lab Results - Last 24 Hours (Table) 09/01/19 09/01/19 09/01/19 Range/Units 05:46 06:05 11:12 RBC 2.44 L (3.80-5.40) m/uL Hgb 7.6 L (11.4-16.0) gm/dL Hct 23.9 L (34.0-46.0) % RDW 17.2 H (11.5-15.5) % Plt Count 92 L (150-450) k/uL POC Glucose (mg/dL) 141 H 149 H (75-99) mg/dL 09/01/19 09/01/19 Range/Units 16:45 20:37 RBC (3.80-5.40) m/uL Hgb (11.4-16.0) gm/dL Hct (34.0-46.0) % RDW (11.5-15.5) % Plt Count (150-450) k/uL POC Glucose (mg/dL) 115 H 139 H (75-99) mg/dL Assessment and Plan Assessment: Acute GI bleed with maroon-colored stools and FOBT positive. Status post EGD showed mild gastritis. No active bleeding. Status post colonoscopy. Possible diverticular bleed. Acute blood loss anemia Acute kidney injury most likely prerenal Mild hyperkalemia secondary to GI bleed History of hepatic encephalopathy. Patient is on lactulose and rifaximin that was started about a month ago at [facility]. All underlying chronic liver disease with cirrhosis and chronic thrombocytopenia. Mild hyperammonemia Chronic CHF with exacerbation dysfunction Fibromyalgia Hypertension Hyperlipidemia Rheumatoid arthritis History of seizure disorder Jazmin SVT Diabetic peripheral neuropathy Right breast cancer with surgery and chemotherapy Anxiety/depression No prior history of smoking Morbid obesity with BMI 41.3 DVT prophylaxis SCDs Plan: Patient will be continued on IV hydration and monitor H&H. Continue with PPI twice daily. Continued on lactulose and rifaximin. Continue with the home medications. monitor H&H GI is planning for endoscopy today. Further recommendations based on clinical course. Prognosis is guarded. PT OT will be consulted and patient is currently at [facility] on the [place] for re hab. Time with Patient: Greater than 30
--- NOTE | 2019-09-03 01:40 | P.PN ---
Subjective Progress Note Date: 09/02/19 Principal diagnosis: Acute blood loss anemia GI bleed Patient is a 69-year-old female with a known history of hypertension, hyperlipidemia, fibromyalgia, chronic CHF, remote arthritis, history of SVT, diabetes type 2 and diabetic peripheral neuropathy and other multiple medical problems came to ER with complaints of mid and carotid bowel movement daily at that day. Patient says that she is been on lactulose due to her liver disease and is having diarrhea and she takes lactulose. Denied any abdominal pain. No fever no chills. No compressive chest pain or shortness of breath. No palpitations. Denied any headache or dizziness or lightheadedness. Patient says she is tired and weak. Currently patient is not taking any blood in the 70s time. Patient was admitted to the hospital during the first week of zone with altered mental status and questionable seizures. Patient was transferred to [facility] where patient says that she was diagnosed with chronic liver disease and cirrhosis but patient could not recollect completely. Patient was started on rifaximin and lactulose at [facility] and patient was transferred to rehab. Laboratory data showed WBC 4.9, hemoglobin 9.3, platelets of 103 and INR 1.0, sodium 136, compression 5.6, BUN 46 and creatinine 1.54 Blood sugar 147 Magnesium 2.4 Ammonia 38 FOBT positive 08/26/2019 Patient is currently lying in the bed. Complaining of right upper extremity neuropathic pain. Patient was emotional at times and was crying. Otherwise denied any further episodes of rectal bleeding. Hemoglobin is slightly improved to 8.4. Gastroenterology is planning for endoscopy today. Denied any complaints of chest pain or shortness of. No fever no chills. No cough or sputum production. 08/27/2019 Patient is currently lying in the bed comfortably. EGD showed no active bleeding, old blood source of bleed noted. Mild gastritis antrum body. Small hiatal hernia. Right upper extremity pain is better. Otherwise hemoglobin level is 7.0 and repeat is 7.1. Denied any further episodes of rectal bleeding. No bowel movement today otherwise. Gastroenterology is planning for colonoscopy if hem oglobin continues to drop. Otherwise patient denied any chest pain or shortness of breath. No cough or sputum production. Patient is afebrile. Next and patient is being continued on Protonix. 08/28/19 Patient is currently awake and oriented 3. Right upper activity neuropathic pain is better. Otherwise hemoglobin level was 8.0 today. Patient underwent anoscopy today. Showed a moderate diverticulosis. Suspicion is likely diverticular bleed as a cause of anemia however complete visualization of the mucosa was limited due to blood and clots still present in the colon during endoscopy. If further fall in hemoglobin or sign of bleeding consideration can be for CT angiography, medial Anoscopy for Second Look Endoscopy. Gastroenterology Is Following. Patient otherwise denied any complaints of abdominal pain. No fever no chills. No cough or sputum production. Patient is currently on liquid diet. 08/29/2019 Patient is currently resting in the bed comfortable. Hemoglobin did drop to 7.5 today. Patient is currently on clear liquid diet. GI is following. Considering Endoscopy versus CT angiogram to rule out GI bleed. Patient did not have any bowel movement today. No nausea vomiting or abdominal pain. Patient is tolerating liquid diet and wants to be advanced. No complains of chest pain or shortness of breath. 08/30/2019 Patient is currently sitting in the bed comfortably. Denied any complaints of abdominal pain. Denied any bowel movement last few days. Hemoglobin is 7.5 today. Tolerating clear liquid diet and wants to try to be advanced. We will continue to monitor hemoglobin depending on which further plans including repeat colonoscopy and possible capsule endoscopy. Gastroenterology is following. Patient denied any complaints of chest pain or shortness of breath. Right upper extremity pain is better. No fever no chills. 08/31/2019 Patient is currently lying in the bed comfortably. Complains of blood in the stool again today. Hemoglobin did drop to 6.7. Patient is being transfused with 1 unit of PRBC. Patient was seen by gastroenterology. Refused to take preparation for colonoscopy. GI is planning for capsule endoscopy. No complaints of chest pain or shortness breath. Afebrile. Sodium 132, potassium 5.0, BUN 31 and creatinine 1.54 09/01/2019 Patient is currently lying in the bed complains of right arm pain and wants IV pain medications. Otherwise hemoglobin is at 7.6 today. Patient refused colonoscopy GI is planning for capsule endoscopy tomorrow. Monitor H&H Patient denied any complaints of chest pain or shortness of breath. No fever no chills. 09/02/2019 Patient is undergoing capsule endoscopy today. GI is following. Hemoglobin is 7.7. No complaints of chest pain or shortness of breath. Patient was tolerating liquid diet yesterday. Currently nothing by mouth due to the procedure. No fever no chills. No cough or production. Saturating well on room air. No shortness of breath or chest pain. Current medications reviewed. Objective - Vital Signs Vital signs: Vital Signs Temp 97.1 F L 09/02/19 08:00 Pulse 52 L 09/02/19 16:00 Resp 17 09/02/19 16:00 BP 90/70 09/02/19 16:00 Pulse Ox 99 09/02/19 16:00 Intake & Output 09/02/19 09/02/19 09/03/19 06:59 18:59 06:59 Output Total 300 Balance -300 Weight 115.3 kg Output: Urine 300 Other: Voiding Method Toilet Toilet # Bowel Movements 1 - Exam PHYSICAL EXAMINATION: Patient is lying in the bed comfortably, no acute distress, awake alert and oriented. Morbidly obese. HEENT: Normocephalic. Neck is supple. Pupils reactive. Nostrils clear. Oral cavity is moist. Ears reveal no drainage. Neck reveals no JVD, carotid bruits, or thyromegaly. CHEST EXAMINATION: Trachea is central. Symmetrical expansion. Bibasilar diminished air entry Lung razo clear to auscultation and percussion. CARDIAC: Normal S1, S2 with no gallops. No murmurs ABDOMEN: Soft. Bowel sounds normal. No organomegaly. No abdominal bruits. Extremities: Trace edema. No clubbing or cyanosis Neurologically awake, alert, oriented x3 with well-coordinated movements. No focal deficits noted Skin: No rash or skin lesions. Psychiatric: Coperative. Nonsuicidal. Anxious. Musculoskeletal: No joint swelling or deformity. Normal range of motion. = - Labs CBC & Chem 7: 09/02/19 06:52 08/31/19 05:48 Labs: Abnormal Lab Results - Last 24 Hours (Table) 09/02/19 09/02/19 09/02/19 Range/Units 01:08 06:03 06:52 RBC 2.42 L (3.80-5.40) m/uL Hgb 7.7 L (11.4-16.0) gm/dL Hct 24.1 L (34.0-46.0) % RDW 17.3 H (11.5-15.5) % Plt Count 90 L (150-450) k/uL POC Glucose (mg/dL) 123 H 110 H (75-99) mg/dL 09/02/19 09/02/19 Range/Units 17:05 20:04 RBC (3.80-5.40) m/uL Hgb (11.4-16.0) gm/dL Hct (34.0-46.0) % RDW (11.5-15.5) % Plt Count (150-450) k/uL POC Glucose (mg/dL) 102 H 166 H (75-99) mg/dL Assessment and Plan Assessment: Acute GI bleed with maroon-colored stools and FOBT positive. Status post EGD showed mild gastritis. No active bleeding. Status post colonoscopy. Possible diverticular bleed. Capsule endoscopy today. Acute blood loss anemia Acute kidney injury most likely prerenal Mild hyperkalemia secondary to GI bleed History of hepatic encephalopathy. Patient is on lactulose and rifaximin that was started about a month ago at [facility]. All underlying chronic liver disease with cirrhosis and chronic thrombocytopenia. Mild hyperammonemia Chronic CHF with exacerbation dysfunction Fibromyalgia Hypertension Hyperlipidemia Rheumatoid arthritis History of seizure disorder Jazmin SVT Diabetic peripheral neuropathy Right breast cancer with surgery and chemotherapy Anxiety/depression No prior history of smoking Morbid obesity with BMI 41.3 DVT prophylaxis SCDs Plan: Patient will be continued on IV hydration and monitor H&H. Continue with PPI twice daily. Continued on lactulose and rifaximin. Continue with the home medications. monitor H&H GI is planning for capsule endoscopy today. Further recommendations based on clinical course. Prognosis is guarded. PT OT will be consulted and patient is currently at [facility] for rehab. Time with Patient: Greater than 30
[2019-09-03] MEDS: PANTOPRAZOLE 40 MG TABLET PO SCH (05:52)
[2019-09-03 06:29] LABS: Glucose,Whole Blood 148 mg/dL (75-99)
[2019-09-03] MEDS: SPIRONOLACTONE 25 MG TAB PO SCH (08:55)
[2019-09-03] MEDS: FOLIC ACID 1 MG TAB PO SCH (08:55)
[2019-09-03] MEDS: GABAPENTIN 300 MG CAP PO SCH ×3 (08:55→21:34)
[2019-09-03] MEDS: THIAMINE 100 MG TAB PO SCH (08:55)
[2019-09-03] MEDS: METOPROLOL TARTRATE 25 MG TAB PO SCH ×2 (08:55→21:34)
[2019-09-03] MEDS: MULTIVITAMINS, THERA 1 EACH TAB PO SCH (08:55)
[2019-09-03] MEDS: ASPIRIN 81 MG PO SCH (08:55)
[2019-09-03] MEDS: FERROUS SULFATE 325 MG TAB PO SCH (08:55)
[2019-09-03] MEDS: POTASSIUM CHLORIDE ER 10 MEQ TAB.ER.PRT PO SCH (08:56)
[2019-09-03] MEDS: ANASTROZOLE 1 MG TAB PO SCH (08:56)
[2019-09-03] MEDS: SENNOSIDES 8.6 MG TAB PO SCH ×2 (08:56→21:34)
[2019-09-03] MEDS: LACTULOSE 20 GM/30 ML CUP PO SCH ×2 (09:00→21:35)
[2019-09-03] MEDS: LIDOCAINE 5% PATCH TOPICAL SCH (09:04)
[2019-09-03 09:06] LABS: Anisocytosis Slight; HCT 23.1 % (34.0-46.0); HGB 7.2 gm/dL (11.4-16.0); Hypochromasia Marked; MCH 31.4 pg (25.0-35.0); MCHC 31.3 g/dL (31.0-37.0); MCV 100.5 fL (80.0-100.0); Macrocytosis Slight; Mean Platelet Volume 8.8; Poikilocytosis Slight; RDW 17.3 % (11.5-15.5); WBC 3.5 k/uL (3.8-10.6)
[2019-09-03 09:10] LABS: Platelet Count 86 k/uL (150-450)
[2019-09-03 12:09] LABS: Glucose,Whole Blood 142 mg/dL (75-99)
--- NOTE | 2019-09-03 13:58 | P.DS ---
Providers Date of admission: 08/28/19 07:28 Expected date of discharge: 09/03/19 Attending physician: Handy Delcid Consults: 08/24/19 14:34 Consult Physician Urgent Consulting Provider: Vanessa Horan Consult Reason/Comments: GI bleed Do you want consulting provider notified?: Yes Primary care physician: Tom [facility] Course: Final diagnosis Acute GI bleed with maroon-colored stools and FOBT positive. Status post EGD showed mild gastritis. No active bleeding. Status post colonoscopy. Possible diverticular bleed Acute blood loss anemia Acute kidney injury most likely prerenal Mild hyperkalemia secondary to GI bleed History of hepatic encephalopathy. Patient is on lactulose and rifaximin that was started about a month ago at [facility]. underlying chronic liver disease with cirrhosis and chronic thrombocytopenia. Mild hyperammonemia Chronic CHF with exacerbation dysfunction Fibromyalgia Hypertension Hyperlipidemia Rheumatoid arthritis History of seizure disorder History of SVT Diabetic peripheral neuropathy Right breast cancer with surgery and chemotherapy Anxiety/depression No prior history of smoking Morbid obesity with BMI 41.3 DVT prophylaxis Discharge disposition Patient is being discharged in a stable condition with guarded prognosis to [facility]. Patient will follow-up with Dr. Han upon discharge. Patient will continue on iron supplementation daily. Patient will follow-up with GI in the outpatient setting. Prescriptions provided for repeat labs in a few days to monitor hemoglobin as well. Total time taken is greater than 35 minutes. History of present illness This is an 87-year-old male who was recently admitted with weakness and fatigue along with liver disease and diarrhea and was being closely monitored. Patient was seen and evaluated by GI and underwent EGD showing no active bleeding with an old blood source noted, small hiatal hernia, and mild gastritis of the antrum body. Patient also had colonoscopy done which showed moderate diverticulosis and patient underwent capsule study with GI as well. No active bleeding noted at this time. Hemoglobin is 7.2 today. During hospitalization patient did receive 2 units of PRBCs for hemoglobin drops. A prescription was also provided to have repeat labs to monitor hemoglobin as well as kidney functions in 2-3 days. Currently no reports of chest pain, shortness of breath, or palpitations. Patient is afebrile. No reports of nausea or vomiting and patient is tolerating diet. Patient will be going to [facility] for continued PT/OT therapy. Guarded prognosis. On exam vital signs are stable. Temp is 98.5F, pulse is 62, respirations are 18, blood pressure is 114/58, oxygen saturation is 99% on room air. Cardio S1, S2 are muffled. Respiratory shows diminished breath sounds at the bases with no wheezing or rhonchi noted. Abdomen is soft and nontender. Nervous system shows mild diffuse weakness. Please refer to medication reconciliation sheet for a list of medications. Patient Condition at Discharge: Stable Plan - Discharge Summary Discharge Rx Participant: No New Discharge Prescriptions: New Lidocaine 5% Patch [Lidoderm 5% Patch] 1 patch TOPICAL DAILY patch Gabapentin [Neurontin] 300 mg PO TID #9 cap Continue Anastrozole [Arimidex] 1 mg PO DAILY@0900 Sennosides [Senna] 8.6 mg PO BID@0900,2100 Pantoprazole [Protonix] 40 mg PO DAILY@0600 Ferrous Sulfate [Iron (65 MG Elemental)] 325 mg PO DAILY@0900 Metoprolol Tartrate [Lopressor] 25 mg PO BID@0900,2100 Ergocalciferol (Vitamin D2) [Drisdol] 50,000 unit PO Q14D@0900 Acetaminophen [Tylenol] 650 mg PO Q4H PRN PRN Reason: Pain Dextran 70/Hypromellose [Genteal Tears 0.1%-0.3% Drop] 1 drop BOTH EYES Q12H PRN PRN Reason: Dry Eye(S)/redness Melatonin 10mg Capsule 10 mg PO HS PRN PRN Reason: Insomnia Insulin Lispro 4 units SQ TID@0800,1200,1700 Rifaximin [Xifaxan] 550 mg PO BID@0900,2100 Lactulose 20 gm PO Q12H Thiamine [Vitamin B-1] 100 mg PO DAILY@0900 Multivitamins, Thera [Multivitamin (formulary)] 1 tab PO DAILY@0900 Spironolactone 50 mg PO DAILY@0900 Folic Acid 1 mg PO DAILY@0900 Insulin Glargine,Hum.rec.anlog [Basaglar Kwikpen U-100] 20 unit SQ HS@2100 Aspirin EC [Ecotrin Low Dose] 81 mg PO DAILY@0900 HYDROcodone/APAP 10-325MG [[place] 10-325] 1 tab PO Q6H PRN #6 tab PRN Reason: Pain Discontinued Potassium Chloride ER [K-Dur 10] 10 meq PO DAILY@0900 Furosemide [Lasix] 40 mg PO DAILY@06 Gabapentin [Neurontin] 100 mg PO BID@899,2099 Discharge Medication List Anastrozole [Arimidex] 1 mg PO DAILY@89909/30/14 [History] Sennosides [Senna] 8.6 mg PO BID@899,209904/02/18 [History] Pantoprazole [Protonix] 40 mg PO DAILY@59907/02/18 [History] Ferrous Sulfate [Iron (65 MG Elemental)] 325 mg PO DAILY@89908/16/18 [History] Metoprolol Tartrate [Lopressor] 25 mg PO BID@899,209908/16/18 [History] Ergocalciferol (Vitamin D2) [Drisdol] 50,000 unit PO Q14D@89907/19/19 [History] Acetaminophen [Tylenol] 650 mg PO Q4H PRN 08/24/19 [History] Aspirin EC [Ecotrin Low Dose] 81 mg PO DAILY@89908/24/19 [History] Dextran 70/Hypromellose [Genteal Tears 0.1%-0.3% Drop] 1 drop BOTH EYES Q12H PRN 08/24/19 [History] Folic Acid 1 mg PO DAILY@89908/24/19 [History] Insulin Glargine,Hum.rec.anlog [Basaglar Kwikpen U-100] 20 unit SQ HS@209908/24/19 [History] Insulin Lispro 4 units SQ TID@0800,1200,1700 08/24/19 [History] Lactulose 20 gm PO Q12H 08/24/19 [History] Melatonin 10mg Capsule 10 mg PO HS PRN 08/24/19 [History] Multivitamins, Thera [Multivitamin (formulary)] 1 tab PO DAILY@89908/24/19 [History] Rifaximin [Xifaxan] 550 mg PO BID@899,209908/24/19 [History] Spironolactone 50 mg PO DAILY@89908/24/19 [History] Thiamine [Vitamin B-1] 100 mg PO DAILY@89908/24/19 [History] Gabapentin [Neurontin] 300 mg PO TID #9 cap 09/03/19 [Rx] HYDROcodone/APAP 10-325MG [[place] 10-325] 1 tab PO Q6H PRN #6 tab 09/03/19 [Rx] Lidocaine 5% Patch [Lidoderm 5% Patch] 1 patch TOPICAL DAILY patch 09/03/19 [Rx] Follow up Appointment(s)/Referral(s): Tom Han MD [Primary Care Provider] - 1-2 days Ambulatory/Diagnostic Orders: Basic Metabolic Panel [LAB.AMB] Time Frame: 2 Days, Location: None Selected Complete Blood Count w/diff [LAB.AMB] Time Frame: 2 Days, Location: None Selected Activity/Diet/Wound Care/Special Instructions: GI to read capsule study prior to discharge Patient is going to [facility] on [email or web address] Activity as tolerated Follow-up with primary care provider upon discharge Continue with consistent carbohydrate diet Continue to monitor blood sugars before meals at bedtime and treat accordingly Repeat labs in 2-3 days Follow-up with GI in the outpatient setting Discharge Disposition: TRANSFER TO SNF/ECF
[2019-09-03 14:27] VITALS: BMI 42.3
[2019-09-03] MEDS: HYDROcodone/APAP 10-325MG 1 EACH TAB PO PRN (15:30)
[2019-09-03 16:53] LABS: Glucose,Whole Blood 152 mg/dL (75-99)
--- NOTE | 2019-09-03 18:01 | PN ---
PROGRESS NOTE DATE OF SERVICE: 09/03/2019 This 69-year-old woman who was admitted with GI bleed had endoscopies and also had a capsule endoscopy. Hemoglobin is 7.2. Capsule endoscopy report is evaluated by Dr. Horan, with whom I discussed it at length right now, showed some old blood in the right colon. The patient is being closely monitored. Dr. Horan would like the patient to be kept for one more transfusion for stabilization. Past medical history reviewed. REVIEW OF SYSTEMS: CARDIOVASCULAR SYSTEM: No angina, palpitations. RESPIRATORY SYSTEM: As mentioned earlier. GI: As mentioned earlier. : No dysuria or retention. NERVOUS SYSTEM: No numbness, weakness. CURRENT MEDICATIONS: Tylenol, [place], Arimidex, aspirin, vitamin D2, iron sulfate, folic acid, Neurontin, Levemir, Cephulac, Lidoderm, melatonin, lopressor, multivitamins, Zofran, Protonix, K- Dur, aldactone, vitamin B1. PHYSICAL EXAMINATION: Patient is alert, oriented x3. Pulse 62, blood pressure 114/58, respiration 18, temperature 98.4, pulse ox 99% on room air. HEENT: Conjunctivae pale. NECK: No jugular venous distention. CARDIOVASCULAR SYSTEM: S1, S2 muffled. RESPIRATORY SYSTEM: Breath sounds diminished at the bases. No rhonchi. No crackles. ABDOMEN: Soft, non-tender. NERVOUS SYSTEM: No focal deficit. LABS: WBC 3.5, hemoglobin 7.2. ASSESSMENT: 1. Gastrointestinal bleed with maroon-colored stools and possibly a small intestinal bleed, with a capsule endoscopy showing blood in the right colon. 2. Status post colonoscopy and endoscopy; possible diverticular bleed. 3. Acute blood loss anemia, status post multiple transfusions. 4. Acute kidney injury. 5. Mild hyperkalemia. 6. Hepatic encephalopathy history. 7. Underlying chronic liver disease. 8. Chronic congestive heart failure. 9. Fibromyalgia. 10.Hypertension. 11.Hyperlipidemia. 12.Rheumatoid arthritis. 13.History of seizure. 14.History of supraventricular tachycardia. 15.History of diabetic peripheral neuropathy. 16.History of right breast cancer. 17.Anxiety, depression. 18.Gait dysfunction. RECOMMENDATIONS AND DISCUSSION: I recommend to continue current medications, continue symptomatic treatment. One unit transfusion per Dr. Horan. Otherwise, closely monitor. Continue the rest of the medications. Hold aspirin. Hold the discharge for today. Medication reconciliation was done. Guarded prognosis because of the multiple complex medical issues and further recommendations to follow. Monitor blood sugars closely. Repeat labs will be ordered for tomorrow. MMODL / IJN: [id number] /
[2019-09-03 19:47] LABS: Glucose,Whole Blood 163 mg/dL (75-99)
[2019-09-03] MEDS: INSULIN DETEMIR (LEVEMIR) 100 UNIT/ML SYR SQ SCH (21:34)
--- NOTE | 2019-09-03 21:58 | PN ---
PROGRESS NOTE DATE OF DICTATION: 09/03/2019 This patient is a 69-year-old pleasant white female admitted to the hospital with acute GI bleed. She underwent an upper endoscopy as well as colonoscopy in the last [address] Ingram that showed some old blood in the right colon; otherwise unremarkable. She subsequently had a small bowel capsule endoscopy yesterday. The small bowel capsule endoscopy revealed normal-appearing small bowel. There was some dark old blood noted in the right colon, but no source of bleeding could be identified. The patient in the meantime is doing well. She had two bowel movements today. They were dark but no blood noted. Hemoglobin was down to 7.2 g/dL today. PHYSICAL EXAMINATION: Vital signs show blood pressure of 102/55, pulse rate 57, temperature 97.9. HEENT examination unremarkable. Conjunctivae pink. Sclerae anicteric. Oral cavity no lesions. NECK: No JVD or lymph node enlargement. CHEST: Clear to auscultation. HEART: Regular rate and rhythm. ABDOMEN: Soft. Bowel sounds are positive. No organomegaly. EXTREMITIES: No pedal edema. SKIN: No rashes. NEUROLOGIC: Alert and oriented x3. No focal deficits. LABS: Labs from today show WBC 3.5, hemoglobin 7.2, platelets 86,000. Patient is status post 2 units of PRBC transfusion since hospitalization. BUN is 31, creatinine 1.54. IMPRESSION: 1. Acute gastrointestinal bleed with black tarry stools and severe symptomatic anemia requiring 2 units of blood transfusion. Hemoglobin today is 7.2 g/dL. Status post EGD and colonoscopy by Dr. Ingram 3 days ago that showed small hiatal hernia and some old blood in the right colon. Small bowel capsule endoscopy done yesterday revealed some maroon stool in the right colon, but no mucosal lesions identified, and there was a large amount of stool noted in that area. Hemoglobin is down to 7.2 g/dL. 2. History of chronic liver disease/cirrhosis of the liver. 3. Mild pancytopenia. 4. Elevated BUN and creatinine. RECOMMENDATIONS: I discussed with the patient the small bowel capsule endoscopy findings. At this time clinically she is not having significant bleeding; however, she did drop her hemoglobin to 7.2 g/dL. Recommended one unit of PRBC transfusion. Repeat CBC in the morning. If it remains stable, she can be discharged home with outpatient followup with Dr. Ingram in 2 weeks. Thank you for this consultation. MMJENAE / OLGAN: [id number] /
[2019-09-04] MEDS: HYDROcodone/APAP 10-325MG 1 EACH TAB PO PRN ×3 (00:50→16:28)
[2019-09-04] MEDS: PANTOPRAZOLE 40 MG TABLET PO SCH (05:24)
[2019-09-04 05:52] LABS: Glucose,Whole Blood 161 mg/dL (75-99)
[2019-09-04 06:43] LABS: Anisocytosis Slight; Basophils % (A) 1 %; Eosinophils # (A) 0.1 k/uL (0-0.7); Eosinophils % (A) 4 %; HCT 24.8 % (34.0-46.0); HGB 7.8 gm/dL (11.4-16.0); Hypochromasia Marked; Lymphocytes # (A) 0.9 k/uL (1.0-4.8); Lymphocytes % (A) 25 %; MCH 31.8 pg (25.0-35.0); MCHC 31.6 g/dL (31.0-37.0); MCV 100.5 fL (80.0-100.0); Macrocytosis Slight; Mean Platelet Volume 8.9; Monocytes # (A) 0.3 k/uL (0-1.0); Monocytes % (A) 9 %; Neutrophils # (A) 2.1 k/uL (1.3-7.7); Neutrophils % (A) 58 %; Poikilocytosis Slight; RBC 2.47 m/uL (3.80-5.40); RDW 17.2 % (11.5-15.5); WBC 3.6 k/uL (3.8-10.6)
[2019-09-04 06:49] LABS: Platelet Count 84 k/uL (150-450)
[2019-09-04 06:59] LABS: Calcium 7.9 mg/dL (8.4-10.2)
[2019-09-04 07:09] LABS: Potassium 6.1 mmol/L (3.5-5.1)
[2019-09-04] MEDS ORDERED: INSULIN REGULAR 100 UNIT/ML VIAL IV ONE (08:36)
[2019-09-04] MEDS ORDERED: DEXTROSE 50% SYRINGE 50 ML IVP STA (08:36)
[2019-09-04] MEDS: POTASSIUM CHLORIDE ER 10 MEQ TAB.ER.PRT PO SCH (08:59)
[2019-09-04] MEDS: FERROUS SULFATE 325 MG TAB PO SCH (08:59)
[2019-09-04] MEDS: SENNOSIDES 8.6 MG TAB PO SCH ×2 (08:59→21:20)
[2019-09-04] MEDS: MULTIVITAMINS, THERA 1 EACH TAB PO SCH (08:59)
[2019-09-04] MEDS: GABAPENTIN 300 MG CAP PO SCH ×3 (08:59→21:20)
[2019-09-04] MEDS: FOLIC ACID 1 MG TAB PO SCH (08:59)
[2019-09-04] MEDS: METOPROLOL TARTRATE 25 MG TAB PO SCH ×2 (08:59→21:21)
[2019-09-04] MEDS: THIAMINE 100 MG TAB PO SCH (08:59)
[2019-09-04] MEDS: LACTULOSE 20 GM/30 ML CUP PO SCH ×3 (08:59→21:21)
[2019-09-04] MEDS: ANASTROZOLE 1 MG TAB PO SCH (08:59)
[2019-09-04] MEDS: SPIRONOLACTONE 25 MG TAB PO SCH (08:59)
[2019-09-04] MEDS: LIDOCAINE 5% PATCH TOPICAL SCH (09:00)
--- NOTE | 2019-09-04 10:57 | PN ---
PROGRESS NOTE DATE OF SERVICE: 09/04/2019 Patient is a 69-year-old pleasant white female admitted to the hospital with acute GI bleed. She underwent EGD colonoscopy by Dr. Ingram that showed some gastritis and old blood in the right colon. She subsequently had a small bowel capsule endoscopy done that revealed once again, maroon-colored stool in the right colon, but no obvious mucosal lesion could not be identified as the colon had a lot of brown stool. The patient in the meantime is doing better. No further episodes of bleeding. She had one more unit of blood transfusion yesterday, hemoglobin is 7.8 g/dL. PHYSICAL EXAMINATION: Blood pressure 107/54, pulse rate 58, temperature 98.6. HEENT: Examination unremarkable, conjunctivae are pink, sclerae anicteric, oral cavity no lesions. NECK: No JVD or lymph node enlargement. CHEST: Clear to auscultation. HEART: Regular rate and rhythm. ABDOMEN: Soft, bowel sounds are positive, no organomegaly. EXTREMITIES: No pedal edema. NEUROLOGIC: Alert and oriented x3. No focal deficits. LABS: From today WBC 3.6, hemoglobin is 7.8, and platelets are 84,000. Potassium was 6.1, BUN 41, creatinine 1.65. IMPRESSION: 1. Acute gastrointestinal bleed status post EGD colonoscopy as mentioned about [address] Ingram and subsequent small bowel capsule endoscopy revealed maroon- colored stool in the right colon, but no obvious mucosal lesion identified. At the time of colonoscopy, there was some old blood noted in the right colon also and no mucosal lesion identified. The patient appears to have stabilized with no further episodes of bleeding. He is status post total of 3 units of PRBC transfusion, last hemoglobin was 7.8 g/dL. 2. History of underlying cirrhosis of the liver secondary to fatty liver disease. 3. History of hepatic encephalopathy. 4. Hyperkalemia. RECOMMENDATIONS: 1. Monitor CBC daily. 2. Continue Protonix 40 mg daily. 3. If the hyperkalemia is corrected, she can be [facility]. Thank you for this consultation. MMODL / IJN: [id number] /
[2019-09-04 11:51] LABS: Glucose,Whole Blood 107 mg/dL (75-99)
[2019-09-04] MEDS ORDERED: SODIUM POLYSTYRENE SULFONATE 15 GM/60 ML BOTTLE PO STA ×2 (12:02→17:20)
[2019-09-04 16:41] LABS: Glucose,Whole Blood 150 mg/dL (75-99)
--- NOTE | 2019-09-04 19:23 | P.PN ---
Subjective Progress Note Date: 09/04/19 Principal diagnosis: This is a 69 year old female who was recently admitted for GI bleed and is being closely monitored. Patient underwent endoscopy and capsule study with GI showing large amounts of old blood noted but no acute bleeding noted. Patient's current hemoglobin is 7.8 after a unit of PRBC transfused yesterday. Patient potassium was found to be elevated at 6.1 and was given dextrose with insulin. Repeat potassium was 6.0 and given a dose of kayexalate. Will repeat labs and monitor vital signs and labs closely. Case management and social work following as patient will be returning to [facility] once stabilized and discharged. Currently no reports of chest pain, shortness of breath, or palpitations. Patient is afebrile. No reports of nausea or vomiting and patient is tolerating diet. Objective - Vital Signs Vital signs: Vital Signs Temp 98 F 09/04/19 15:55 Pulse 59 L 09/04/19 15:55 Resp 16 09/04/19 15:55 BP 106/57 09/04/19 15:55 Pulse Ox 98 09/04/19 15:55 Intake & Output 09/03/19 09/04/19 09/04/19 18:59 06:59 18:59 Intake Total 505 164 5692 Output Total 500 120 1 Balance 172 410 3335 Weight 115.3 kg Intake: Oral 810 1227 Blood Product 310 Rc As-1 Unit 310 [id number] Output: Urine 500 120 Stool 1 Other: Voiding Method Toilet Toilet Toilet # Voids 1 1 2 # Bowel Movements 0 1 - Exam Patient is sitting in the bed, awake alert and oriented. Morbidly obese. Temp is 98.6F, pulse is 58, resp are 16, blood pressure is 107/54, 02 is 98% on room air. HEENT: Normocephalic. Neck is supple. Pupils reactive. Nostrils clear. Oral cavity is moist. Ears reveal no drainage. Neck reveals no JVD, carotid bruits, or thyromegaly. CHEST EXAMINATION: Trachea is central. Symmetrical expansion. Bibasilar diminished air entry Lung razo otherwise clear to auscultation and percussion. CARDIAC: Normal S1, S2 with no gallops. No murmurs ABDOMEN: Soft. Bowel sounds normal. No organomegaly. No abdominal bruits. Extremities: Trace edema. No clubbing or cyanosis Neurologically awake, alert, oriented x3 with well-coordinated movements. No focal deficits noted Skin: No rash or skin lesions. Psychiatric: Cooperative. Non-suicidal. Mildly anxious Musculoskeletal: No joint swelling or deformity. Normal range of motion. - Labs CBC & Chem 7: 09/04/19 05:52 09/04/19 16:51 Labs: Abnormal Lab Results - Last 24 Hours (Table) 09/03/19 09/03/19 09/04/19 Range/Units 15:31 19:46 05:51 WBC (3.8-10.6) k/uL RBC (3.80-5.40) m/uL Hgb (11.4-16.0) gm/dL Hct (34.0-46.0) % MCV (80.0-100.0) fL RDW (11.5-15.5) % Plt Count (150-450) k/uL Lymphocytes # (1.0-4.8) k/uL Sodium (137-145) mmol/L Potassium (3.5-5.1) mmol/L Carbon Dioxide (22-30) mmol/L BUN (7-17) mg/dL Creatinine (0.52-1.04) mg/dL Glucose (74-99) mg/dL POC Glucose (mg/dL) 163 H 161 H (75-99) mg/dL Calcium (8.4-10.2) mg/dL Crossmatch See Detail 09/04/19 09/04/19 09/04/19 Range/Units 05:52 05:52 10:55 WBC 3.6 L (3.8-10.6) k/uL RBC 2.47 L (3.80-5.40) m/uL Hgb 7.8 L (11.4-16.0) gm/dL Hct 24.8 L (34.0-46.0) % MCV 100.5 H (80.0-100.0) fL RDW 17.2 H (11.5-15.5) % Plt Count 84 L (150-450) k/uL Lymphocytes # 0.9 L (1.0-4.8) k/uL Sodium 134 L (137-145) mmol/L Potassium 6.1 H* 6.0 H (3.5-5.1) mmol/L Carbon Dioxide 21 L (22-30) mmol/L BUN 41 H (7-17) mg/dL Creatinine 1.65 H (0.52-1.04) mg/dL Glucose 123 H (74-99) mg/dL POC Glucose (mg/dL) (75-99) mg/dL Calcium 7.9 L (8.4-10.2) mg/dL Crossmatch 09/04/19 09/04/19 09/04/19 Range/Units 11:49 16:39 16:51 WBC (3.8-10.6) k/uL RBC (3.80-5.40) m/uL Hgb (11.4-16.0) gm/dL Hct (34.0-46.0) % MCV (80.0-100.0) fL RDW (11.5-15.5) % Plt Count (150-450) k/uL Lymphocytes # (1.0-4.8) k/uL Sodium (137-145) mmol/L Potassium 5.6 H (3.5-5.1) mmol/L Carbon Dioxide (22-30) mmol/L BUN (7-17) mg/dL Creatinine (0.52-1.04) mg/dL Glucose (74-99) mg/dL POC Glucose (mg/dL) 107 H 150 H (75-99) mg/dL Calcium (8.4-10.2) mg/dL Crossmatch Assessment and Plan Assessment: Acute GI bleed with maroon-colored stools and possibly a small intestinal bleed with a capsule endoscopy showing blood in the right colon. Status post colonoscopy and endoscopy, possible diverticular bleed Acute blood loss anemia, status post multiple blood transfusions Acute kidney injury most likely prerenal Mild hyperkalemia secondary to GI bleed History of hepatic encephalopathy chronic liver disease with cirrhosis and chronic thrombocytopenia. Mild hyperammonemia Chronic CHF with diastolic dysfunction Fibromyalgia Hypertension Hyperlipidemia Rheumatoid arthritis History of seizure disorder History of SVT Diabetic peripheral neuropathy gait dysfunction Right breast cancer with surgery and chemotherapy Anxiety/depression No prior history of smoking Morbid obesity with BMI 41.3 DVT prophylaxis Recommendations and discussion: Recommend to continue current medications, management, and symptomatic treatment. Will repeat am labs and monitor hemoglobin and potassium closely. Patient was also receiving potassium supplements which were discontinued and will continue with low potassium diet. Due to multiple complex medical issues, prognosis is guarded. Further recommendations to follow. Possible discharge in 24 hours.
[2019-09-04 20:48] LABS: Glucose,Whole Blood 190 mg/dL (75-99)
[2019-09-04] MEDS: INSULIN DETEMIR (LEVEMIR) 100 UNIT/ML SYR SQ SCH (22:43)
[2019-09-05] MEDS: PANTOPRAZOLE 40 MG TABLET PO SCH (06:04)
[2019-09-05] MEDS: HYDROcodone/APAP 10-325MG 1 EACH TAB PO PRN (06:09)
[2019-09-05 06:50] LABS: Glucose,Whole Blood 115 mg/dL (75-99)
[2019-09-05 07:59] LABS: Anisocytosis Slight; Basophils % (A) 1 %; Eosinophils # (A) 0.1 k/uL (0-0.7); Eosinophils % (A) 4 %; HCT 23.6 % (34.0-46.0); HGB 7.4 gm/dL (11.4-16.0); Hypochromasia Marked; Lymphocytes # (A) 0.7 k/uL (1.0-4.8); Lymphocytes % (A) 24 %; MCH 31.6 pg (25.0-35.0); MCHC 31.4 g/dL (31.0-37.0); MCV 100.7 fL (80.0-100.0); Macrocytosis Slight; Mean Platelet Volume 8.7; Monocytes # (A) 0.3 k/uL (0-1.0); Monocytes % (A) 9 %; Neutrophils # (A) 1.7 k/uL (1.3-7.7); Neutrophils % (A) 59 %; Poikilocytosis Slight; RBC 2.34 m/uL (3.80-5.40); RDW 16.8 % (11.5-15.5); WBC 2.9 k/uL (3.8-10.6)
[2019-09-05 08:22] LABS: Potassium 4.7 mmol/L (3.5-5.1)
[2019-09-05 08:24] LABS: Platelet Count 84 k/uL (150-450)
[2019-09-05] MEDS: LACTULOSE 20 GM/30 ML CUP PO SCH ×2 (08:53→09:06)
[2019-09-05] MEDS: THIAMINE 100 MG TAB PO SCH (08:53)
[2019-09-05] MEDS: GABAPENTIN 300 MG CAP PO SCH (08:54)
[2019-09-05] MEDS: FOLIC ACID 1 MG TAB PO SCH (08:54)
[2019-09-05] MEDS: ANASTROZOLE 1 MG TAB PO SCH (08:55)
[2019-09-05] MEDS: METOPROLOL TARTRATE 25 MG TAB PO SCH (08:56)
[2019-09-05] MEDS: FERROUS SULFATE 325 MG TAB PO SCH (08:56)
[2019-09-05] MEDS: MULTIVITAMINS, THERA 1 EACH TAB PO SCH (08:56)
[2019-09-05] MEDS: LIDOCAINE 5% PATCH TOPICAL SCH (09:01)
[2019-09-05] MEDS: SENNOSIDES 8.6 MG TAB PO SCH (10:58)
[2019-09-05 11:16] LABS: Glucose,Whole Blood 151 mg/dL (75-99)
--- NOTE | 2019-09-05 12:18 | P.DS ---
Providers Date of admission: 08/28/19 07:28 Expected date of discharge: 09/05/19 Attending physician: Handy Delcid Consults: 08/24/19 14:34 Consult Physician Urgent Consulting Provider: Vanessa Horan Consult Reason/Comments: GI bleed Do you want consulting provider notified?: Yes Primary care physician: Tom Han [facility] Hospital Course: Final diagnosis Acute GI bleed with maroon-colored stools and FOBT positive. Status post EGD showed mild gastritis. No active bleeding. Status post colonoscopy. Possible diverticular bleed Acute blood loss anemia Acute kidney injury most likely prerenal Mild hyperkalemia secondary to GI bleed History of hepatic encephalopathy. Patient is on lactulose and rifaximin that was started about a month ago at [facility]. underlying chronic liver disease with cirrhosis and chronic thrombocytopenia. Mild hyperammonemia Chronic CHF with exacerbation dysfunction Fibromyalgia Hypertension Hyperlipidemia Rheumatoid arthritis History of seizure disorder History of SVT Diabetic peripheral neuropathy Right breast cancer with surgery and chemotherapy Anxiety/depression No prior history of smoking Morbid obesity with BMI 42.3 DVT prophylaxis Discharge disposition Patient is being discharged in a stable condition with guarded prognosis to [facility]. Patient will follow-up with Dr. Han upon discharge. Patient will continue on iron supplementation daily. Patient will also continue on Protonix 40 mg daily. Patient will follow-up with GI in the outpatient setting. Prescriptions provided for repeat labs in a few days to monitor hemoglobin as well. Total time taken is greater than 35 minutes. History of present illness This is an 87-year-old male who was recently admitted with weakness and fatigue along with liver disease and diarrhea and was being closely monitored. Patient was seen and evaluated by GI and underwent EGD showing no active bleeding with an old blood source noted, small hiatal hernia, and mild gastritis of the antrum body. Patient also had colonoscopy done which showed moderate diverticulosis and patient underwent capsule study with GI as well. No active bleeding noted at this time. Hemoglobin Was 7.2 Yesterday and received a unit of PRBCs. Current hemoglobin is 7.4. Morning labs revealed elevated potassium at 6.1 and was corrected. Current potassium is 4.7 today. During hospitalization patient did receive 3 units of PRBCs for hemoglobin drops. A prescription was also provided to have repeat labs to monitor hemoglobin as well as kidney functions in 2-3 days. Patient to continue with consistent carb diet and low potassium. Potassium supplementation as well as Lasix have been discontinued. Currently no reports of chest pain, shortness of breath, or palpitations. Patient is afebrile. No reports of nausea or vomiting and patient is tolerating diet. Patient will be going to [facility] on the [address] for continued PT/OT therapy. Guarded prognosis. On exam vital signs are stable. Temp is 98.0F, pulse is 63, respirations are 18, blood pressure is 116/66, oxygen saturation is 97% on room air. Cardio S1, S2 are muffled. Respiratory shows diminished breath sounds at the bases with no wheezing or rhonchi noted. Abdomen is soft and nontender. Nervous system shows mild diffuse weakness. Please refer to medication reconciliation sheet for a list of medications. Patient Condition at Discharge: Stable Plan - Discharge Summary Discharge Rx Participant: No New Discharge Prescriptions: New Lidocaine 5% Patch [Lidoderm 5% Patch] 1 patch TOPICAL DAILY patch Gabapentin [Neurontin] 300 mg PO TID #9 cap Continue Anastrozole [Arimidex] 1 mg PO DAILY@0900 Sennosides [Senna] 8.6 mg PO BID@0900,2100 Pantoprazole [Protonix] 40 mg PO DAILY@0600 Ferrous Sulfate [Iron (65 MG Elemental)] 325 mg PO DAILY@0900 Metoprolol Tartrate [Lopressor] 25 mg PO BID@0900,2100 Ergocalciferol (Vitamin D2) [Drisdol] 50,000 unit PO Q14D@0900 Acetaminophen [Tylenol] 650 mg PO Q4H PRN PRN Reason: Pain Dextran 70/Hypromellose [Genteal Tears 0.1%-0.3% Drop] 1 drop BOTH EYES Q12H PRN PRN Reason: Dry Eye(S)/redness Melatonin 10mg Capsule 10 mg PO HS PRN PRN Reason: Insomnia Insulin Lispro 4 units SQ TID@0800,1200,1700 Rifaximin [Xifaxan] 550 mg PO BID@0900,2100 Lactulose 20 gm PO Q12H Thiamine [Vitamin B-1] 100 mg PO DAILY@0900 Multivitamins, Thera [Multivitamin (formulary)] 1 tab PO DAILY@0900 Spironolactone 50 mg PO DAILY@0900 Folic Acid 1 mg PO DAILY@0900 Insulin Glargine,Hum.rec.anlog [Basaglar Kwikpen U-100] 20 unit SQ HS@2099 HYDROcodone/APAP 10-325MG [[place] 10-325] 1 tab PO Q6H PRN #6 tab PRN Reason: Pain Discontinued Potassium Chloride ER [K-Dur 10] 10 meq PO DAILY@0900 Furosemide [Lasix] 40 mg PO DAILY@06 Gabapentin [Neurontin] 100 mg PO BID@899,2099 Aspirin EC [Ecotrin Low Dose] 81 mg PO DAILY@0900 Discharge Medication List Anastrozole [Arimidex] 1 mg PO DAILY@0909/30/14 [History] Sennosides [Senna] 8.6 mg PO BID@899,209904/02/18 [History] Pantoprazole [Protonix] 40 mg PO DAILY@0607/02/18 [History] Ferrous Sulfate [Iron (65 MG Elemental)] 325 mg PO DAILY@0908/16/18 [History] Metoprolol Tartrate [Lopressor] 25 mg PO BID@899,209908/16/18 [History] Ergocalciferol (Vitamin D2) [Drisdol] 50,000 unit PO Q14D@89907/19/19 [History] Acetaminophen [Tylenol] 650 mg PO Q4H PRN 08/24/19 [History] Dextran 70/Hypromellose [Genteal Tears 0.1%-0.3% Drop] 1 drop BOTH EYES Q12H PRN 08/24/19 [History] Folic Acid 1 mg PO DAILY@89908/24/19 [History] Insulin Glargine,Hum.rec.anlog [Basaglar Kwikpen U-100] 20 unit SQ HS@209908/24/19 [History] Insulin Lispro 4 units SQ TID@0800,1200,1700 08/24/19 [History] Lactulose 20 gm PO Q12H 08/24/19 [History] Melatonin 10mg Capsule 10 mg PO HS PRN 08/24/19 [History] Multivitamins, Thera [Multivitamin (formulary)] 1 tab PO DAILY@0908/24/19 [History] Rifaximin [Xifaxan] 550 mg PO BID@899,209908/24/19 [History] Spironolactone 50 mg PO DAILY@0908/24/19 [History] Thiamine [Vitamin B-1] 100 mg PO DAILY@0908/24/19 [History] Gabapentin [Neurontin] 300 mg PO TID #9 cap 09/03/19 [Rx] HYDROcodone/APAP 10-325MG [Sumner 10-325] 1 tab PO Q6H PRN #6 tab 09/03/19 [Rx] Lidocaine 5% Patch [Lidoderm 5% Patch] 1 patch TOPICAL DAILY patch 09/03/19 [Rx] Follow up Appointment(s)/Referral(s): Tom Han MD [Primary Care Provider] - 1-2 days Ambulatory/Diagnostic Orders: Basic Metabolic Panel [LAB.AMB] Time Frame: 2 Days, Location: None Selected Complete Blood Count w/diff [LAB.AMB] Time Frame: 2 Days, Location: None Selected Patient Instructions/Handouts: Hydrocodone/Acetaminophen (By mouth), Gabapentin (By mouth) Activity/Diet/Wound Care/Special Instructions: [facility] [address] Activity as tolerated Continue holding aspirin for one week and may continue once cleared by primary care physician and no signs of active bleeding are noted Follow-up with primary care provider upon discharge Continue with consistent carbohydrate diet Continue to monitor blood sugars before meals at bedtime and treat accordingly Repeat labs in 2-3 days Follow-up with GI in the outpatient setting Discharge Disposition: TRANSFER TO SNF/ECF
[2019-09-05 14:00] VITALS: BP 118/58; PULSE 66; RESP 12; TEMP 97.8
--- NOTE | 2019-09-05 17:33 | PN ---
PROGRESS NOTE DATE OF SERVICE: 09/05/2019 Patient is a 69-year-old pleasant white female admitted to hospital with acute GI bleed. She had EGD colonoscopy and small bowel capsule endoscopy that showed some old blood in the right colon, but no obvious source of bleeding could be identified. In the meantime, patient is doing well. Her bleeding has completely resolved. Had 2 bowel movements yesterday, none today, overall feeling well. PHYSICAL EXAMINATION: Appears comfortable, in no apparent distress. Vital signs are stable. Blood pressure 118/58, pulse rate 66, temperature 98.7. HEENT: Examination unremarkable. conjunctivae are pink, sclerae nonicteric, oral cavity no lesions. NECK: No JVD or lymph node enlargement. CHEST: Clear to auscultation. ABDOMEN: Obese. Bowel sounds are positive, no organomegaly. EXTREMITIES: No pedal edema. NEUROLOGIC: Alert and oriented x3. No focal deficits. LABS: WBC 2.9, hemoglobin 7.4, platelets 84,000, BUN 40, creatinine 1.44. IMPRESSION: 1. Acute gastrointestinal bleed, status post EGD, colonoscopy, and small bowel capsule endoscopy, all of which revealed some old blood in the right colon, but no obvious mucosal lesion or source of bleeding identified, because of poor prep in that area. In any event, her bleeding has subsided. She received total of 3 units of PRBC transfusion and last hemoglobin is 7.4 g/dL. 2. History of nonalcoholic fatty liver disease with cirrhosis of the liver. 3. History of hepatic encephalopathy. 4. Longstanding history of diabetes mellitus. RECOMMENDATIONS: 1. Continue oral lactulose daily. 2. Monitor CBC on a frequent basis. 3. Follow up in office in 2 weeks following discharge from the hospital. Thank you for this consultation. MMODL / IJN: [id number] /
--- NOTE | 2019-09-06 07:59 | CDI ---
Documentation Clarification Form Date: 09/06/19 From: Debra Suazo Phone: If you have a question about this query, please contact Roseann Monsalve, Cloth Shearing Supervisor at [phone] between 8am and 5pm. Admit Date: 08/28/19 Discharge Date: 09/05/19 Patient Name: SIRIA MILES Visit Number: [id number] ATTENTION: The Clinical Documentation Specialists (CDI) and [facility] Coding Staff appreciate your assistance in clarifying documentation. Please respond to the clarification below the line at the bottom and electronically sign. The CDI & [facility] Coding staff will review the response and follow-up if needed. Please note: Queries are made part of the Legal Health Record. If you have any questions, please contact the author of this message via ITS. Dear Dr. Porsche Alexander, CKD is documented under past medical history in the ED note and H&P. History/Risk Factors: no baseline labs documented. Clinical Indicators: DOS: 08/23-09/05/19 Current BUN: 46, 39, 42, 36, 28, 31, 41, 40 Current CR: 1.54, 1.28, 1.42, 1.34, 1.39, 1.54, 1.65, 1.44 Current GFR: 35, 44, 38, 41, 39, 35, 32, 38 Treatment: IV fluids, Lopressor 25mg 1 daily, In order to capture the severity of condition, please clarify the stage of the CKD, if known: CKD ruled out CKD Stage 1 (GFR > 90) CKD Stage 2 (GFR 60-89) CKD Stage 3 (GFR 30-59) CKD Stage 4 (GFR 15-29) CKD Stage 5 (GFR <15) ESRD Other, please specify Unable to determine CKD Stage 3 MTDD
[2019-09-07] MEDS ORDERED: ERGOCALCIFEROL 50,000 UNIT CAP PO SCH (09:00)
== END 2019-09-05 15:02 | DRG 378 ==
LOC: EC 12:39 → 4SSUR 15:21 → 1SOBS 08-25 11:48 → 3SCARD 08-27 20:02 → OBSVTOIN 08-28 07:28 → 5NMEDONC 09-04 20:18
PROVIDERS: ADMIT Family Medicine; ATTEND Family Medicine
PROC: 0DB78ZX Excision of Stomach, Pylorus, Via Natural or Artificial Opening Endoscopic, Diagnostic (ICD-10-PCS; principal; 2019-08-26 07:30)
PROC: 0DB98ZX Excision of Duodenum, Via Natural or Artificial Opening Endoscopic, Diagnostic (ICD-10-PCS; principal; 2019-08-26 07:30)
PROC: 30233N1 Transfusion of Nonautologous Red Blood Cells into Peripheral Vein, Percutaneous Approach (ICD-10-PCS; 2019-08-28)
PROC: 0DJD8ZZ Inspection of Lower Intestinal Tract, Via Natural or Artificial Opening Endoscopic (ICD-10-PCS; 2019-08-28)
PROC: 0DJ07ZZ Inspection of Upper Intestinal Tract, Via Natural or Artificial Opening (ICD-10-PCS; 2019-09-02)
DX: K57.31 Diverticulosis of large intestine without perforation or abscess with bleeding (principal); I50.32 Chronic diastolic (congestive) heart failure; Z68.41 Body mass index [BMI] 40.0-44.9, adult; D62 Acute posthemorrhagic anemia; N17.9 Acute kidney failure, unspecified; D61.818 Other pancytopenia; I13.0 Hypertensive heart and chronic kidney disease with heart failure and stage 1 through stage 4 chronic kidney disease, or unspecified chronic kidney disease; E11.42 Type 2 diabetes mellitus with diabetic polyneuropathy; N18.3 Chronic kidney disease, stage 3 (moderate); E11.22 Type 2 diabetes mellitus with diabetic chronic kidney disease; K74.60 Unspecified cirrhosis of liver; E66.01 Morbid (severe) obesity due to excess calories; J44.9 Chronic obstructive pulmonary disease, unspecified; G40.909 Epilepsy, unspecified, not intractable, without status epilepticus; M06.9 Rheumatoid arthritis, unspecified; Z79.4 Long term (current) use of insulin; Z11.59 Encounter for screening for other viral diseases; K76.0 Fatty (change of) liver, not elsewhere classified; K29.70 Gastritis, unspecified, without bleeding; K44.9 Diaphragmatic hernia without obstruction or gangrene; E87.5 Hyperkalemia; F32.9 Major depressive disorder, single episode, unspecified; M79.7 Fibromyalgia; E78.5 Hyperlipidemia, unspecified; F41.9 Anxiety disorder, unspecified; R26.9 Unspecified abnormalities of gait and mobility; M19.90 Unspecified osteoarthritis, unspecified site; Z79.811 Long term (current) use of aromatase inhibitors; Z79.82 Long term (current) use of aspirin; Z79.899 Other long term (current) drug therapy; Z86.61 Personal history of infections of the central nervous system; Z87.891 Personal history of nicotine dependence; Z85.3 Personal history of malignant neoplasm of breast; Z90.11 Acquired absence of right breast and nipple; Z86.19 Personal history of other infectious and parasitic diseases; Z87.440 Personal history of urinary (tract) infections; Z98.818 Other dental procedure status; Z90.89 Acquired absence of other organs; Z90.49 Acquired absence of other specified parts of digestive tract; Z87.19 Personal history of other diseases of the digestive system; Z90.710 Acquired absence of both cervix and uterus; Z87.42 Personal history of other diseases of the female genital tract; Z98.51 Tubal ligation status; Z87.39 Personal history of other diseases of the musculoskeletal system and connective tissue; Z92.21 Personal history of antineoplastic chemotherapy; Z86.79 Personal history of other diseases of the circulatory system; Z88.1 Allergy status to other antibiotic agents; Z88.5 Allergy status to narcotic agent; Z88.0 Allergy status to penicillin; Z88.8 Allergy status to other drugs, medicaments and biological substances; Z80.3 Family history of malignant neoplasm of breast; Z80.1 Family history of malignant neoplasm of trachea, bronchus and lung; Z81.8 Family history of other mental and behavioral disorders; Z82.5 Family history of asthma and other chronic lower respiratory diseases; Z83.3 Family history of diabetes mellitus; Z83.49 Family history of other endocrine, nutritional and metabolic diseases; Z82.61 Family history of arthritis
CPT/HCPCS: 36415; 43239; 45378; 80048; 80053; 82140; 82272; 82607; 82728; 82746; 83540; 83550; 83735; 84132; 84484; 85025; 85027; 85610; 85730; 86850; 86900; 86901; 86920; 88305; 91110; 96360; 96361; 99284

== ENCOUNTER 2019-10-24 21:09 | Inpatient (IN) | payer MEDICARE, OTHER ==
[2019-10-24] MEDS ORDERED: FUROSEMIDE 10 MG/ML 4 ML VIAL IV STA (21:33)
--- NOTE | 2019-10-24 22:06 | ED ---
Extremity Problem HPI <Bobo Patel - Last Filed: 10/24/19 23:59> - General Source: patient, EMS, RN notes reviewed, old records reviewed Mode of arrival: EMS <Chelly Landers - Last Filed: 10/25/19 00:22> - General Chief complaint: Extremity Problem,Nontraumatic Stated complaint: edema Time Seen by Provider: 10/24/19 21:13 - History of Present Illness Initial comments: Patient is a 69-year-old female presents emergency department today with chief complaint of increased weight gain and peripheral edema. Patient reportedly has gained 100 pounds within the past month due to fluid overload. Patient states that she's not diagnosed with heart failure in the past. She complains of just distention and firmness to her extremities. She is nonambulatory. She resides at assisted living facility. (Chelly Landers) - Related Data Home Medications Medication Instructions Recorded Confirmed Anastrozole [Arimidex] 1 mg PO DAILY@89909/30/14 10/07/19 Sennosides [Senna] 8.6 mg PO BID@899,209904/02/18 10/07/19 Pantoprazole [Protonix] 40 mg PO DAILY@59907/02/18 10/07/19 Ferrous Sulfate [Iron (65 MG 325 mg PO DAILY@89908/16/18 10/07/19 Elemental)] Metoprolol Tartrate [Lopressor] 25 mg PO BID@0900,209908/16/18 10/07/19 Ergocalciferol (Vitamin D2) 50,000 unit PO Q14D@89907/19/19 10/07/19 [Drisdol] Acetaminophen [Tylenol] 650 mg PO Q4H PRN 08/24/19 10/07/19 Dextran 70/Hypromellose [Genteal 1 drop BOTH EYES Q12H PRN 08/24/19 10/07/19 Tears 0.1%-0.3% Drop] Folic Acid 1 mg PO DAILY@89908/24/19 10/07/19 Insulin Glargine,Hum.rec.anlog 20 unit SQ HS@209908/24/19 10/07/19 [Basaglar Kwikpen U-100] Insulin Lispro 4 units SQ TID@0800,1200,1700 08/24/19 10/07/19 Lactulose 20 gm PO Q12H 08/24/19 10/07/19 Melatonin 10mg Capsule 10 mg PO HS PRN 08/24/19 10/07/19 Multivitamins, Thera [Multivitamin 1 tab PO DAILY@0900 08/24/19 10/07/19 (formulary)] Rifaximin [Xifaxan] 550 mg PO BID@0900,2100 08/24/19 10/07/19 Spironolactone 50 mg PO DAILY@0908/24/19 10/07/19 Thiamine [Vitamin B-1] 100 mg PO DAILY@0900 08/24/19 10/07/19 Previous Rx's Medication Instructions Recorded Gabapentin [Neurontin] 300 mg PO TID #9 cap 09/03/19 HYDROcodone/APAP 10-325MG [[place] 1 tab PO Q6H PRN #6 tab 09/03/19 10-325] Lidocaine 5% Patch [Lidoderm 5% 1 patch TOPICAL DAILY patch 09/03/19 Patch] Allergies Allergy/AdvReac Type Severity Reaction Status Date / Time cephalexin [From Keflex] Allergy Unknown Verified 10/07/19 07:55 duloxetine [From Cymbalta] Allergy Unknown Verified 10/07/19 07:55 Penicillins Allergy Rash/Hives Verified 10/07/19 07:55 codeine AdvReac Nausea & Verified 10/07/19 07:55 Vomiting phenobarbital AdvReac Unknown Verified 10/07/19 07:55 phenytoin sodium AdvReac Unknown Verified 10/07/19 07:55 [From Dilantin] phenytoin sodium extended AdvReac Unknown Verified 10/07/19 07:55 [From Dilantin] primidone [From Mysoline] AdvReac Unknown Verified 10/07/19 07:55 Review of Systems ROS Other: All systems not noted in ROS Statement are negative. <Bobo Patel - Last Filed: 10/24/19 23:59> ROS Other: All systems not noted in ROS Statement are negative. <Chelly Landers - Last Filed: 10/25/19 00:22> ROS Statement: Those systems with pertinent positive or pertinent negative responses have been documented in the HPI. Past Medical History Past Medical History: Cancer, Heart Failure, COPD, Diabetes Mellitus, Fibromyalgia, Hyperlipidemia, Hypertension, Renal Disease, Rheumatoid Arthritis (RA), Seizure Disorder, Supraventricular Tachycardia (SVT) Additional Past Medical History / Comment(s): IDDM type II, neuropathy bilateral legs/feet and hands, past cellulitis leg, R breast cancer with surgery and chemo, seizures with last time "years" ago, UTI, CKD, UTIs, chronic anemiaDM Type II. dental extraction (all teeth from lower jaw 11/2017) History of Any Multi-Drug Resistant Organisms: VRE Date of last positivie culture/infection: 05/11/18 MDRO Source:: VRE URINE Past Surgical History: Adenoidectomy, Appendectomy, Breast Surgery, Cholecystectomy, Hysterectomy, Orthopedic Surgery, Tonsillectomy, Tubal Ligation Additional Past Surgical History / Comment(s): masectomy right, ganglion cyst right hand, total hysterectomy (hx of tubal pregnancies), lower teeth extracted. Past Anesthesia/Blood Transfusion Reactions: No Reported Reaction Past Psychological History: Anxiety, Depression Smoking Status: Former smoker Past Alcohol Use History: None Reported Past Drug Use History: None Reported - Past Family History Father Family Medical History: Cancer, CVA/TIA Additional Family Medical History / Comment(s): 2000 from lung cancer Mother Family Medical History: Cancer, Dementia Additional Family Medical History / Comment(s): 2014 at age 86. Oral & Breast cancer Brother(s) Family Medical History: Asthma, Diabetes Mellitus, Fibromyalgia, Osteoarthritis (OA) Additional Family Medical History / Comment(s): Obesity. Joint replacements <Chelly Landers - Last Filed: 10/25/19 00:22> General Exam Head exam: Present: atraumatic, normocephalic, normal inspection Eye exam: Present: normal appearance, PERRL, EOMI. Absent: scleral icterus, conjunctival injection, periorbital swelling ENT exam: Present: normal exam, mucous membranes moist Neck exam: Present: normal inspection. Absent: tenderness, meningismus, lymphadenopathy Respiratory exam: Present: normal lung sounds bilaterally, other ( has right meniscectomy. Left breast edematous and she is evidence of Frances intertrigo underneath her left breast.). Absent: respiratory distress, wheezes, rales, rhonchi, stridor Cardiovascular Exam: Present: regular rate, normal rhythm, normal heart sounds. Absent: systolic murmur, diastolic murmur, rubs, gallop, clicks GI/Abdominal exam: Present: soft, distended, normal bowel sounds. Absent: tenderness, guarding, rebound, rigid Extremities exam: Present: normal inspection, full ROM, normal capillary refill, other (4+ pitting edema bilaterally.). Absent: tenderness, pedal edema, joint swelling, calf tenderness Back exam: Present: normal inspection, full ROM Neurological exam: Present: alert, oriented X3, CN II-XII intact Psychiatric exam: Present: normal affect, normal mood Skin exam: Present: warm, dry, intact, normal color. Absent: rash <Chelly Landers - Last Filed: 10/25/19 00:22> - General Exam Comments Initial Comments: 69 year old female, bed bound. Moderate discomfort. (Chelly Landers) Course Vital Signs 10/24/19 10/25/19 21:17 00:00 Temperature 99.1 F Pulse Rate 60 65 Respiratory 20 Rate Blood Pressure 121/66 O2 Sat by Pulse 95 Oximetry Medical Decision Making - Lab Data Result diagrams: 10/24/19 22:21 10/24/19 22:21 <Bobo Patel - Last Filed: 10/24/19 23:59> - Lab Data Result diagrams: 10/24/19 22:21 10/24/19 22:21 - Radiology Data Radiology results: report reviewed <Chelly Landers - Last Filed: 10/25/19 00:22> - Medical Decision Making I saw this patient in conjunction with the physician respiratory therapy assistant. I performed independent history and physical exam. Agree with case management. (Bobo Patel) 69-year-old female presents range from today with complaints of fluid overload, and states that she's had 100 pound weight gain over the past month. She does have 4+ pitting edema. Patient's does report occasional difficulty breathing. Patient was given Lasix and lab work obtained. Patient was found to be hyperkalemic at 7.1. She did have some EKG changes. Serum hyperkalemic protocol with albuterol insulin and calcium. Patient account have acute kidney injury with her creatinine to 2.28. Previously was 1.44. Discussed this with Dr. Patel reevaluated the Patient after treatment for hyperkalemia. QRS is decreasing this time. Dr. Patel discussed the case with teacher adventure education and agree Patient is stable for telemetry unit. Does not need ICU. Patient was admitted for renal injury, fluid overload, hyperkalemia. Consults to nephrology. (Chelly Landers) - Lab Data Lab Results 10/24/19 10/24/19 10/24/19 Range/Units 22:21 22:21 22:21 WBC 4.4 (3.8-10.6) k/uL RBC 2.66 L (3.80-5.40) m/uL Hgb 7.8 L (11.4-16.0) gm/dL Hct 26.7 L (34.0-46.0) % MCV 100.3 H (80.0-100.0) fL MCH 29.4 (25.0-35.0) pg MCHC 29.3 L (31.0-37.0) g/dL RDW 15.3 (11.5-15.5) % Plt Count 114 L (150-450) k/uL Neutrophils % 71 % Lymphocytes % 15 % Monocytes % 9 % Eosinophils % 3 % Basophils % 0 % Neutrophils # 3.1 (1.3-7.7) k/uL Lymphocytes # 0.6 L (1.0-4.8) k/uL Monocytes # 0.4 (0-1.0) k/uL Eosinophils # 0.1 (0-0.7) k/uL Basophils # 0.0 (0-0.2) k/uL Hypochromasia Marked Macrocytosis Slight PT (9.0-12.0) sec INR (<1.2) APTT (22.0-30.0) sec Sodium 134 L (137-145) mmol/L Potassium 7.1 H* (3.5-5.1) mmol/L Chloride 112 H (98-107) mmol/L Carbon Dioxide 15 L (22-30) mmol/L Anion Gap 7 mmol/L BUN 55 H (7-17) mg/dL Creatinine 2.28 H (0.52-1.04) mg/dL Est GFR (CKD-EPI)AfAm 25 (>60 ml/min/1.73 sqM) Est GFR (CKD-EPI)NonAf 22 (>60 ml/min/1.73 sqM) Glucose 140 H (74-99) mg/dL POC Glucose (mg/dL) (75-99) mg/dL POC Glu Chronic Disease Manager ID Plasma Lactic Acid Vasile 0.7 (0.7-2.0) mmol/L Calcium 8.4 (8.4-10.2) mg/dL Magnesium 3.0 H (1.6-2.3) mg/dL Total Bilirubin 0.6 (0.2-1.3) mg/dL AST 28 (14-36) U/L ALT 13 (4-34) U/L Alkaline Phosphatase 92 (38-126) U/L Troponin I (0.000-0.034) ng/mL NT-Pro-B Natriuret Pep pg/mL Total Protein 6.6 (6.3-8.2) g/dL Albumin 3.5 (3.5-5.0) g/dL 10/24/19 10/24/19 10/24/19 Range/Units 22:21 22:21 23:05 WBC (3.8-10.6) k/uL RBC (3.80-5.40) m/uL Hgb (11.4-16.0) gm/dL Hct (34.0-46.0) % MCV (80.0-100.0) fL MCH (25.0-35.0) pg MCHC (31.0-37.0) g/dL RDW (11.5-15.5) % Plt Count (150-450) k/uL Neutrophils % % Lymphocytes % % Monocytes % % Eosinophils % % Basophils % % Neutrophils # (1.3-7.7) k/uL Lymphocytes # (1.0-4.8) k/uL Monocytes # (0-1.0) k/uL Eosinophils # (0-0.7) k/uL Basophils # (0-0.2) k/uL Hypochromasia Macrocytosis PT (9.0-12.0) sec INR (<1.2) APTT (22.0-30.0) sec Sodium (137-145) mmol/L Potassium (3.5-5.1) mmol/L Chloride (98-107) mmol/L Carbon Dioxide (22-30) mmol/L Anion Gap mmol/L BUN (7-17) mg/dL Creatinine (0.52-1.04) mg/dL Est GFR (CKD-EPI)AfAm (>60 ml/min/1.73 sqM) Est GFR (CKD-EPI)NonAf (>60 ml/min/1.73 sqM) Glucose (74-99) mg/dL POC Glucose (mg/dL) 177 H (75-99) mg/dL POC Glu Chronic Disease Manager ID Alis Merchant Plasma Lactic Acid Vasile (0.7-2.0) mmol/L Calcium (8.4-10.2) mg/dL Magnesium (1.6-2.3) mg/dL Total Bilirubin (0.2-1.3) mg/dL AST (14-36) U/L ALT (4-34) U/L Alkaline Phosphatase (38-126) U/L Troponin I <0.012 (0.000-0.034) ng/mL NT-Pro-B Natriuret Pep 3460 pg/mL Total Protein (6.3-8.2) g/dL Albumin (3.5-5.0) g/dL 10/24/19 Range/Units 23:32 WBC (3.8-10.6) k/uL RBC (3.80-5.40) m/uL Hgb (11.4-16.0) gm/dL Hct (34.0-46.0) % MCV (80.0-100.0) fL MCH (25.0-35.0) pg MCHC (31.0-37.0) g/dL RDW (11.5-15.5) % Plt Count (150-450) k/uL Neutrophils % % Lymphocytes % % Monocytes % % Eosinophils % % Basophils % % Neutrophils # (1.3-7.7) k/uL Lymphocytes # (1.0-4.8) k/uL Monocytes # (0-1.0) k/uL Eosinophils # (0-0.7) k/uL Basophils # (0-0.2) k/uL Hypochromasia Macrocytosis PT 11.0 (9.0-12.0) sec INR 1.1 (<1.2) APTT 18.0 L (22.0-30.0) sec Sodium (137-145) mmol/L Potassium (3.5-5.1) mmol/L Chloride (98-107) mmol/L Carbon Dioxide (22-30) mmol/L Anion Gap mmol/L BUN (7-17) mg/dL Creatinine (0.52-1.04) mg/dL Est GFR (CKD-EPI)AfAm (>60 ml/min/1.73 sqM) Est GFR (CKD-EPI)NonAf (>60 ml/min/1.73 sqM) Glucose (74-99) mg/dL POC Glucose (mg/dL) (75-99) mg/dL POC Glu Chronic Disease Manager ID Plasma Lactic Acid Vasile (0.7-2.0) mmol/L Calcium (8.4-10.2) mg/dL Magnesium (1.6-2.3) mg/dL Total Bilirubin (0.2-1.3) mg/dL AST (14-36) U/L ALT (4-34) U/L Alkaline Phosphatase (38-126) U/L Troponin I (0.000-0.034) ng/mL NT-Pro-B Natriuret Pep pg/mL Total Protein (6.3-8.2) g/dL Albumin (3.5-5.0) g/dL 10/24/19 23:09 EKG shows normal sinus rhythm with left axis deviation. Right bundle branch block. Possible lateral infarct age. Inferior infarct age undetermined. Abnormal EKG. Ventricular rate of 79 bpm. Intervals 190 ms. QS respirations 46 most seconds. QT QTc is 416/477 ms. 10/25/19 00:21 2355 EKG shows sinus rhythm with sinus arrhythmia for history AV block. Left axis deviation. Nonspecific intraventricular block. Inferior infarct age undetermined. Ventricular rate of 67 bpm. Pulse 224 ms. QS duration is 138 ms. QT QTc is 444/458 ms. (Chelly Landers) - Radiology Data Chest x-ray as no active cardiopulmonary disease. Normal heart. No change. (Chelly Landers) Disposition <Bobo Patel - Last Filed: 10/24/19 23:59> Is patient prescribed a controlled substance at d/c from ED?: No Time of Disposition: 00:22 <Chelly Landers - Last Filed: 10/25/19 00:22> Clinical Impression: Hyperkalemia, Edema, BERNIE (acute kidney injury) Disposition: ADMITTED IP TO THIS HOSP Condition: Good Referrals: Tom Han MD [Primary Care Provider] - 1-2 days
[2019-10-24] MEDS ORDERED: GABAPENTIN 300 MG CAP PO STA (22:27)
[2019-10-24 22:41] LABS: Basophils % (A) 0 %; Eosinophils # (A) 0.1 k/uL (0-0.7); Eosinophils % (A) 3 %; HCT 26.7 % (34.0-46.0); HGB 7.8 gm/dL (11.4-16.0); Hypochromasia Marked; Lymphocytes # (A) 0.6 k/uL (1.0-4.8); Lymphocytes % (A) 15 %; MCH 29.4 pg (25.0-35.0); MCHC 29.3 g/dL (31.0-37.0); MCV 100.3 fL (80.0-100.0); Macrocytosis Slight; Mean Platelet Volume 7.9; Monocytes # (A) 0.4 k/uL (0-1.0); Monocytes % (A) 9 %; Neutrophils # (A) 3.1 k/uL (1.3-7.7); Neutrophils % (A) 71 %; Platelet Count 114 k/uL (150-450); RBC 2.66 m/uL (3.80-5.40); RDW 15.3 % (11.5-15.5); WBC 4.4 k/uL (3.8-10.6)
[2019-10-24 22:50] LABS: Albumin 3.5 g/dL (3.5-5.0); Calcium 8.4 mg/dL (8.4-10.2); Total Bilirubin 0.6 mg/dL (0.2-1.3); Total Protein 6.6 g/dL (6.3-8.2)
[2019-10-24 22:52] LABS: Potassium 7.1 mmol/L (3.5-5.1)
--- NOTE | 2019-10-24 22:57 | XR ---
EXAMINATION TYPE: XR chest 2V DATE OF EXAM: 10/24/2019 COMPARISON: 06/06/2018 HISTORY: Difficulty breathing TECHNIQUE: 2 views FINDINGS: Heart is normal. Lungs are clear of infiltrate. There is no heart failure. There are no hil ar masses. Bony thorax is intact. IMPRESSION: No active cardiopulmonary disease. Normal heart. No change.
[2019-10-24] MEDS ORDERED: ALBUTEROL NEB (CONC) 2.5 MG/0.5 ML INHALATION ONE (22:58)
[2019-10-24] MEDS ORDERED: CALCIUM GLUCONATE 1 GM in SODIUM CHLORIDE 0.9% 100 ML IVPB ONE (22:58)
[2019-10-24] MEDS ORDERED: SODIUM POLYSTYRENE SULFONATE 15 GM/60 ML BOTTLE PO ONE (22:58)
[2019-10-24] MEDS ORDERED: DEXTROSE 50% SYRINGE 50 ML IVP ONE (22:58)
[2019-10-24] MEDS ORDERED: INSULIN REGULAR 100 UNIT/ML VIAL IV ONE (22:58)
[2019-10-24 23:08] LABS: Glucose,Whole Blood 177 mg/dL (75-99)
[2019-10-25 00:12] LABS: INR 1.1 (<1.2)
[2019-10-25] MEDS ORDERED: ACETAMINOPHEN TAB 325 MG TAB PO PRN ×2 (00:22→09:19)
[2019-10-25] MEDS ORDERED: NALOXONE 0.4 MG/ML 1 ML VIAL IV PRN (00:22)
[2019-10-25] MEDS ORDERED: HYDROmorphone 1 MG/ML 1 ML SYRINGE IVP PRN (00:22)
[2019-10-25 01:00] LABS: Appearance,Urine Cloudy (Clear); Bacteria,Urine Many /hpf; Bilirubin,Urine Negative (Negative); Blood,Urine Moderate (Negative); Color,Urine Yellow; Glucose,Urine (UA) Negative (Negative); Hyaline Casts,Urine 11 /lpf (0-2); Ketones,Urine Negative (Negative); Leukocyte Esterase,Urine Large (Negative); Mucus,Urine Rare /hpf; Nitrite,Urine Positive (Negative); Protein,Urine Trace (Negative); RBC,Urine 12 /hpf (0-5); Specific Gravity,Urine 1.012 (1.001-1.035); Squamous Epithelial Cell,Urine 1 /hpf (0-4); Urobilinogen,Urine <2.0 mg/dL (<2.0); WBC,Urine >182 /hpf (0-5)
[2019-10-25] MEDS ORDERED: LEVOFLOXACIN 750MG-D5W PMX 750 MG in DEXTROSE/WATER 1 150ML.BAG IVPB STA (02:10)
[2019-10-25] MEDS ORDERED: SODIUM POLYSTYRENE SULFONATE 15 GM/60 ML BOTTLE PO STA (04:26)
[2019-10-25 06:08] LABS: Glucose,Whole Blood 147 mg/dL (75-99)
[2019-10-25] MEDS ORDERED: ARTIFICIAL TEARS-HYPROMELLOSE DROPS 15 ML BTL BOTH EYES PRN (09:19)
[2019-10-25] MEDS ORDERED: ONDANSETRON 4 MG TAB PO PRN (09:19)
[2019-10-25] MEDS ORDERED: MELATONIN 5 MG TABLET PO PRN (09:19)
[2019-10-25] MEDS: FUROSEMIDE 100 MG in SODIUM CHLORIDE 0.9% 90 ML IV SCH ×2 (09:37→16:18)
[2019-10-25] MEDS: HYDROcodone/APAP 10-325MG 1 EACH TAB PO PRN (09:45)
[2019-10-25] MEDS: LACTULOSE 20 GM/30 ML CUP PO SCH ×2 (09:46→19:36)
--- NOTE | 2019-10-25 09:57 | P.NPCON ---
History of Present Illness - Reason for Consult acute renal failure - History of Present Illness reason for consultation: Acute kidney injury History of present illness: Patient is a 69-year-old female seen in consultation for acute kidney injury. Patient's creatinine has a July 192019 was 0.77. In August 2019 her creatinine was anywhere in the range of 1.28-1.65. It was elevated at 2.28 on admission yesterday. Patient presented to the hospital with worsening edema. Patient states she has gained about 100 pounds over the last 1 month. She has been voiding. Denies hematuria or dysuria. No vomiting or diarrhea. She is unsure of the medications that she's been taking. I do see spironolactone as part of her home medications. No nonsteroidals noted. She does have history of diabetes mellitus and is maintained on insulin. She was also noted to be hyperkalemic with potassium level of 7.1 on admission. This was medically treated and the repeat was 6.9. Blood work from this morning is pending. denies family history of renal disease. denies fever or chills. No evidence of fluid overload noted on chest x-ray. Vital signs are stable. General: The patient appeared well nourished and normally developed. HEENT: Head exam is unremarkable. Neck is without jugular venous distension. LUNGS: Lungs are clear to auscultation and percussion. Breath sounds decreased. HEART: Rate and Rhythm are regular. ABDOMEN: soft, nontender. Obese. EXTREMITITES: 2+ edema. Past Medical History Past Medical History: Cancer, Heart Failure, COPD, Diabetes Mellitus, Fibromyalgia, Hyperlipidemia, Hypertension, Renal Disease, Rheumatoid Arthritis (RA), Seizure Disorder, Supraventricular Tachycardia (SVT) Additional Past Medical History / Comment(s): IDDM type II, neuropathy bilateral legs/feet and hands, past cellulitis leg, R breast cancer with surgery and chemo, seizures with last time "years" ago, UTI, CKD, UTIs, chronic anemiaDM Type II. dental extraction (all teeth from lower jaw 11/2017) History of Any Multi-Drug Resistant Organisms: VRE Date of last positivie culture/infection: 05/11/18 MDRO Source:: VRE URINE Past Surgical History: Adenoidectomy, Appendectomy, Breast Surgery, Cholecystectomy, Hysterectomy, Orthopedic Surgery, Tonsillectomy, Tubal Ligation Additional Past Surgical History / Comment(s): masectomy right, ganglion cyst right hand, total hysterectomy (hx of tubal pregnancies), lower teeth extracted. Past Anesthesia/Blood Transfusion Reactions: No Reported Reaction Past Psychological History: Anxiety, Depression Additional Psychological History / Comment(s): Pt currently is at [facility] for rehab. She needs assist with ADLS except feeds self. She states up until just lately she was getting up with a walker some.Her daughter lives with her. No experience. Did not work outside of the home. No international travel. . There is a pet dog in the home. No alcohol use Smoking Status: Former smoker Past Alcohol Use History: None Reported Additional Past Alcohol Use History / Comment(s): Pt started smoking in 1971 and qut in December 2017. Per patient she smoked 1-2 cigarettes a day after meals. Past Drug Use History: None Reported - Past Family History Father Family Medical History: Cancer, CVA/TIA Additional Family Medical History / Comment(s): 2000 from lung cancer Mother Family Medical History: Cancer, Dementia Additional Family Medical History / Comment(s): 2014 at age 86. Oral & Breast cancer Brother(s) Family Medical History: Asthma, Diabetes Mellitus, Fibromyalgia, Osteoarthritis (OA) Additional Family Medical History / Comment(s): Obesity. Joint replacements Medications and Allergies Home Medications Medication Instructions Recorded Confirmed Type Anastrozole [Arimidex] 1 mg PO DAILY@89909/30/14 10/25/19 History Sennosides [Senna] 8.6 mg PO BID@899,2099 PRN 04/02/18 10/25/19 History Pantoprazole [Protonix] 40 mg PO DAILY@59907/02/18 10/25/19 History Ferrous Sulfate [Iron (65 MG 325 mg PO DAILY@89908/16/18 10/25/19 History Elemental)] Metoprolol Tartrate [Lopressor] 25 mg PO BID@899,209908/16/18 10/25/19 History Ergocalciferol (Vitamin D2) 50,000 unit PO Q14D@89907/19/19 10/25/19 History [Drisdol] Acetaminophen [Tylenol] 650 mg PO Q4H PRN 08/24/19 10/25/19 History Dextran 70/Hypromellose [Genteal 1 drop BOTH EYES Q12H PRN 08/24/19 10/25/19 History Tears 0.1%-0.3% Drop] Folic Acid 1 mg PO DAILY@89908/24/19 10/25/19 History Insulin Lispro 4 units SQ TID@0800,1200,1700 08/24/19 10/25/19 History Lactulose 20 gm PO Q12H 08/24/19 10/25/19 History Multivitamins, Thera [Multivitamin 1 tab PO DAILY@89908/24/19 10/25/19 History (formulary)] Rifaximin [Xifaxan] 550 mg PO BID@09,209908/24/19 10/25/19 History Spironolactone 50 mg PO DAILY@89908/24/19 10/25/19 History Thiamine [Vitamin B-1] 100 mg PO DAILY@89908/24/19 10/25/19 History Lidocaine 5% Patch [Lidoderm 5% 1 patch TOPICAL DAILY patch 09/03/19 10/25/19 Rx Patch] Dicyclomine [Bentyl] 10 mg PO TID 10/25/19 10/25/19 History Gabapentin [Neurontin] 300 mg PO BID@0900,209910/25/19 10/25/19 History HYDROcodone/APAP 10-325MG [[place] 1 tab PO BID@0600,1800 10/25/19 10/25/19 History 10-325] Hydrocodone/Acetaminophen [[place] 1 tab PO Q4H PRN 10/25/19 10/25/19 History 10-325] Insulin Glargine,Hum.rec.anlog 20 unit SQ HS@209910/25/19 10/25/19 History [Lantus Solostar] Melatonin 10 mg PO HS PRN 10/25/19 10/25/19 History Ondansetron [Zofran] 4 mg PO TID PRN 10/25/19 10/25/19 History Oxymetazoline 0.05% Nasl [place] 1 spray NASAL Q15M PRN MDD 3 DOSES 10/25/19 10/25/19 History [Afrin 0.05% Nasal [place]] Allergies Allergy/AdvReac Type Severity Reaction Status Date / Time cephalexin [From Keflex] Allergy Unknown Verified 10/25/19 06:50 duloxetine [From Cymbalta] Allergy Unknown Verified 10/25/19 06:50 Penicillins Allergy Rash/Hives Verified 10/25/19 06:50 phenobarbital Allergy Unknown Verified 10/25/19 06:50 phenytoin sodium Allergy Unknown Verified 10/25/19 06:50 [From Dilantin] phenytoin sodium extended Allergy Unknown Verified 10/25/19 06:50 [From Dilantin] primidone [From Mysoline] Allergy Unknown Verified 10/25/19 06:50 codeine AdvReac Nausea & Verified 10/25/19 06:50 Vomiting Physical Exam Vitals: Vital Signs Temp Pulse Pulse Resp BP BP Pulse Ox 10/25/19 04:00 18 10/25/19 03:27 98.8 F 71 18 122/61 98 10/25/19 02:45 80 18 145/62 97 10/25/19 00:30 97.9 F 77 18 144/52 96 10/25/19 00:00 65 10/24/19 23:45 62 18 135/68 95 10/24/19 22:45 70 18 130/56 10/24/19 21:17 99.1 F 60 20 121/66 95 Intake and Output 10/24/19 10/25/19 10/25/19 22:59 06:59 14:59 Output Total 700 Balance -700 Output: Urine 700 Other: # Voids 1 Weight 145.15 kg 164.5 kg Results - Lab Results Most recent lab results Calcium 8.4 mg/dL (8.4-10.2) 10/24/19 22:21 Magnesium 3.0 mg/dL (1.6-2.3) H 10/24/19 22:21 10/24/19 22:21 10/25/19 01:55 Assessment and Plan Plan: assessment: 1. acute kidney injury secondary to ATN secondary to cardiorenal syndrome. Creatinine 2.28 on admission. 2. UTI maintained on antibiotics. 3. Hyperkalemia secondary to acute kidney injury, metabolic acidosis and use of spironolactone. 4. Metabolic acidosis secondary to acute kidney injury. 5. Volume overload. 6. Diabetes mellitus. 7. Chronic kidney disease stage III. baseline creatinine in the range of 1- 1.5. Etiology is nephrosclerosis and diabetic kidney disease. plan: Start Lasix drip at 10 mL an hour. Insert Gran[place] catheter. Strict I's and O's. Check renal ultrasound. Low potassium diet. Check labs now. hold spironolactone. Continue to monitor renal function and urine output. follow-up cultures. Thank for the consultation. I will continue to follow patient with you during her hospital stay.
--- NOTE | 2019-10-25 10:25 | US ---
EXAMINATION TYPE: US kidneys/renal and bladder DATE OF EXAM: 10/25/2019 COMPARISON: 06/10/2018 CLINICAL HISTORY: henri. EXAM MEASUREMENTS: Right Kidney: 11.5 x 5.6 x 5.8 cm Left Kidney: Not visualized Technically difficult study performed portable on patient with large patient body habitus. Patient is unable to move. Patient is very edematous. Right Kidney: No hydronephrosis or nephrolithiasis seen . Exam limited for mass. Left Kidney: Not visualized Bladder: Not visualized IMPRESSION: Markedly Limited exam with nonvisualization of the left kidney and bladder. Grossly the right kidney demonstrates no evidence of hydronephrosis or nephrolithiasis
[2019-10-25 10:35] LABS: Albumin 3.2 g/dL (3.5-5.0); Calcium 8.3 mg/dL (8.4-10.2); Magnesium 2.8 mg/dL (1.6-2.3); Total Bilirubin 0.7 mg/dL (0.2-1.3); Total Protein 6.2 g/dL (6.3-8.2)
[2019-10-25 10:37] LABS: Potassium 6.7 mmol/L (3.5-5.1)
[2019-10-25] MEDS ORDERED: INSULIN REGULAR 100 UNIT/ML VIAL IV ONE ×2 (10:41→15:47)
[2019-10-25] MEDS ORDERED: SODIUM BICARB 8.4% 50 ML SYR (1 MEQ/ML) IV STA ×2 (10:41→15:47)
[2019-10-25] MEDS ORDERED: DEXTROSE 50% SYRINGE 50 ML IVP STA ×2 (10:41→15:49)
[2019-10-25] MEDS ORDERED: CALCIUM GLUCONATE 1 GM in SODIUM CHLORIDE 0.9% 100 ML IVPB ONE (11:00)
--- NOTE | 2019-10-25 11:29 | P.HPIM ---
History of Present Illness 69-year-old female came in with the generalized body aches weight gain as per the patient she gained about 100 pounds in a month. And the found to have elevated creatinine of 2.28. Patient denied any dysuria or increased urinary f requency with urination significant abnormal with highly elevated white blood cell count because of which patient was started on antibiotics. Patient had a normal serum creatinine of 0.77 multiple children. Patient denied any nausea vomiting patient denied any fever chills. Patient is found to be hyperkalemic with the serum potassium of 7.1 as well and patient was on Aldactone at home. Patient has met [place] acidosis because of acute renal failure. Patient was evaluated by nephrology and was never patient was started on IV insulin patient was later evaluated by pulmonary and the transfer the patient to ICU. Patient had a normal echocardiogram in 2019. Chest x-ray also did not show any significant abnormality Review of Systems REVIEW OF SYSTEMS: CONSTITUTIONAL: As mentioned in HPI HEENT: No recent visual problems or hearing problems. Denied any sore throat. CARDIOVASCULAR: No chest pain, orthopnea, PND, no palpitations, no syncope. PULMONARY: No shortness of breath, no cough, no hemoptysis. GASTROINTESTINAL: No diarrhea, no nausea, no vomiting, no abdominal pain. NEUROLOGICAL: No headaches, no weakness, no numbness. HEMATOLOGICAL: Denies any bleeding or petechiae. GENITOURINARY: Denies any burning micturition, frequency, or urgency. MUSCULOSKELETAL/RHEUMATOLOGICAL: Denies any joint pain, swelling, or any muscle pain. ENDOCRINE: Denies any polyuria or polydipsia. The rest of the 14-point review of systems is negative. Past Medical History Past Medical History: Cancer, Heart Failure, COPD, Diabetes Mellitus, Fibromyalgia, Hyperlipidemia, Hypertension, Renal Disease, Rheumatoid Arthritis (RA), Seizure Disorder, Supraventricular Tachycardia (SVT) Additional Past Medical History / Comment(s): IDDM type II, neuropathy bilateral legs/feet and hands, past cellulitis leg, R breast cancer with surgery and chemo, seizures with last time "years" ago, UTI, CKD, UTIs, chronic anemiaDM Type II. dental extraction (all teeth from lower jaw 11/2017) History of Any Multi-Drug Resistant Organisms: VRE Date of last positivie culture/infection: 05/11/18 MDRO Source:: VRE URINE Past Surgical History: Adenoidectomy, Appendectomy, Breast Surgery, Cholecystectomy, Hysterectomy, Orthopedic Surgery, Tonsillectomy, Tubal Ligation Additional Past Surgical History / Comment(s): masectomy right, ganglion cyst right hand, total hysterectomy (hx of tubal pregnancies), lower teeth extracted. Past Anesthesia/Blood Transfusion Reactions: No Reported Reaction Past Psychological History: Anxiety, Depression Additional Psychological History / Comment(s): Pt currently is at [facility] for rehab. She needs assist with ADLS except feeds self. She states up until just lately she was getting up with a walker some.Her daughter lives with her. No experience. Did not work outside of the home. No international travel. . There is a pet dog in the home. No alcohol use Smoking Status: Former smoker Past Alcohol Use History: None Reported Additional Past Alcohol Use History / Comment(s): Pt started smoking in 1971 and qut in December 2017. Per patient she smoked 1-2 cigarettes a day after meals. Past Drug Use History: None Reported - Past Family History Father Family Medical History: Cancer, CVA/TIA Additional Family Medical History / Comment(s): 2000 from lung cancer Mother Family Medical History: Cancer, Dementia Additional Family Medical History / Comment(s): 2014 at age 86. Oral & Breast cancer Brother(s) Family Medical History: Asthma, Diabetes Mellitus, Fibromyalgia, Osteoarthritis (OA) Additional Family Medical History / Comment(s): Obesity. Joint replacements Medications and Allergies Home Medications Medication Instructions Recorded Confirmed Type Anastrozole [Arimidex] 1 mg PO DAILY@89909/30/14 10/25/19 History Sennosides [Senna] 8.6 mg PO BID@899,2099 PRN 04/02/18 10/25/19 History Pantoprazole [Protonix] 40 mg PO DAILY@59907/02/18 10/25/19 History Ferrous Sulfate [Iron (65 MG 325 mg PO DAILY@89908/16/18 10/25/19 History Elemental)] Metoprolol Tartrate [Lopressor] 25 mg PO BID@0900,2100 08/16/18 10/25/19 History Ergocalciferol (Vitamin D2) 50,000 unit PO Q14D@00 07/19/19 10/25/19 History [Drisdol] Acetaminophen [Tylenol] 650 mg PO Q4H PRN 08/24/19 10/25/19 History Dextran 70/Hypromellose [Genteal 1 drop BOTH EYES Q12H PRN 08/24/19 10/25/19 History Tears 0.1%-0.3% Drop] Folic Acid 1 mg PO DAILY@0908/24/19 10/25/19 History Insulin Lispro 4 units SQ TID@0800,1200,1700 08/24/19 10/25/19 History Lactulose 20 gm PO Q12H 08/24/19 10/25/19 History Multivitamins, Thera [Multivitamin 1 tab PO DAILY@89908/24/19 10/25/19 History (formulary)] Rifaximin [Xifaxan] 550 mg PO BID@0900,2100 08/24/19 10/25/19 History Spironolactone 50 mg PO DAILY@89908/24/19 10/25/19 History Thiamine [Vitamin B-1] 100 mg PO DAILY@89908/24/19 10/25/19 History Lidocaine 5% Patch [Lidoderm 5% 1 patch TOPICAL DAILY patch 09/03/19 10/25/19 Rx Patch] Dicyclomine [Bentyl] 10 mg PO TID 10/25/19 10/25/19 History Gabapentin [Neurontin] 300 mg PO BID@0900,2100 10/25/19 10/25/19 History HYDROcodone/APAP 10-325MG [[place] 1 tab PO BID@0600,1800 10/25/19 10/25/19 History 10-325] Hydrocodone/Acetaminophen [Verdon 1 tab PO Q4H PRN 10/25/19 10/25/19 History 10-325] Insulin Glargine,Hum.rec.anlog 20 unit SQ HS@209910/25/19 10/25/19 History [Lantus Solostar] Melatonin 10 mg PO HS PRN 10/25/19 10/25/19 History Ondansetron [Zofran] 4 mg PO TID PRN 10/25/19 10/25/19 History Oxymetazoline 0.05% Nasl Nebo 1 spray NASAL Q15M PRN MDD 3 DOSES 10/25/19 10/25/19 History [Afrin 0.05% Nasal Nebo] Allergies Allergy/AdvReac Type Severity Reaction Status Date / Time cephalexin [From Keflex] Allergy Unknown Verified 10/25/19 06:50 duloxetine [From Cymbalta] Allergy Unknown Verified 10/25/19 06:50 Penicillins Allergy Rash/Hives Verified 10/25/19 06:50 phenobarbital Allergy Unknown Verified 10/25/19 06:50 phenytoin sodium Allergy Unknown Verified 10/25/19 06:50 [From Dilantin] phenytoin sodium extended Allergy Unknown Verified 10/25/19 06:50 [From Dilantin] primidone [From Mysoline] Allergy Unknown Verified 10/25/19 06:50 codeine AdvReac Nausea & Verified 10/25/19 06:50 Vomiting Physical Exam Vitals: Vital Signs Temp Pulse Pulse Resp BP BP Pulse Ox 10/25/19 08:00 97.6 F 80 22 141/73 96 10/25/19 04:00 18 10/25/19 03:27 98.8 F 71 18 122/61 98 10/25/19 02:45 80 18 145/62 97 10/25/19 00:30 97.9 F 77 18 144/52 96 10/25/19 00:00 65 10/24/19 23:45 62 18 135/68 95 10/24/19 22:45 70 18 130/56 10/24/19 21:17 99.1 F 60 20 121/66 95 Intake and Output 10/24/19 10/25/19 10/25/19 22:59 06:59 14:59 Output Total 700 250 Balance -700 -250 Output: Urine 700 250 Straight 250 Other: # Voids 1 Weight 145.15 kg 164.5 kg PHYSICAL EXAMINATION: GENERAL: The patient is alert and oriented x3, not in any acute distress. Moderately obese does have some anasarca as well HEENT: Pupils are round and equally reacting to light. EOMI. No scleral icterus. No conjunctival pallor. Normocephalic, atraumatic. No pharyngeal erythema. No thyromegaly. CARDIOVASCULAR: S1 and S2 present. No murmurs, rubs, or gallops. PULMONARY: Chest is clear to auscultation, no wheezing or crackles. ABDOMEN: Soft, nontender, nondistended, normoactive bowel sounds. No palpable organomegaly. MUSCULOSKELETAL: No joint swelling or deformity. EXTREMITIES: No cyanosis, clubbing, or pedal edema. NEUROLOGICAL: Gross neurological examination did not reveal any focal deficits. SKIN: No rashes. Results CBC & Chem 7: 10/24/19 22:21 10/25/19 09:32 Labs: Abnormal Lab Results - Last 24 Hours (Table) 10/24/19 10/24/19 10/24/19 Range/Units 22:21 22:21 23:05 RBC 2.66 L (3.80-5.40) m/uL Hgb 7.8 L (11.4-16.0) gm/dL Hct 26.7 L (34.0-46.0) % MCV 100.3 H (80.0-100.0) fL MCHC 29.3 L (31.0-37.0) g/dL Plt Count 114 L (150-450) k/uL Lymphocytes # 0.6 L (1.0-4.8) k/uL APTT (22.0-30.0) sec Sodium 134 L (137-145) mmol/L Potassium 7.1 H* (3.5-5.1) mmol/L Chloride 112 H (98-107) mmol/L Carbon Dioxide 15 L (22-30) mmol/L BUN 55 H (7-17) mg/dL Creatinine 2.28 H (0.52-1.04) mg/dL Glucose 140 H (74-99) mg/dL POC Glucose (mg/dL) 177 H (75-99) mg/dL Calcium (8.4-10.2) mg/dL Magnesium 3.0 H (1.6-2.3) mg/dL Total Protein (6.3-8.2) g/dL Albumin (3.5-5.0) g/dL Urine Appearance (Clear) Urine Protein (Negative) Urine Blood (Negative) Urine Nitrite (Negative) Ur Leukocyte Esterase (Negative) Urine RBC (0-5) /hpf Urine WBC (0-5) /hpf Urine WBC Clumps (None) /hpf Urine Bacteria (None) /hpf Hyaline Casts (0-2) /lpf Urine Mucus (None) /hpf 10/24/19 10/25/19 10/25/19 Range/Units 23:32 00:45 01:55 RBC (3.80-5.40) m/uL Hgb (11.4-16.0) gm/dL Hct (34.0-46.0) % MCV (80.0-100.0) fL MCHC (31.0-37.0) g/dL Plt Count (150-450) k/uL Lymphocytes # (1.0-4.8) k/uL APTT 18.0 L (22.0-30.0) sec Sodium (137-145) mmol/L Potassium 6.9 H* (3.5-5.1) mmol/L Chloride (98-107) mmol/L Carbon Dioxide (22-30) mmol/L BUN (7-17) mg/dL Creatinine (0.52-1.04) mg/dL Glucose (74-99) mg/dL POC Glucose (mg/dL) (75-99) mg/dL Calcium (8.4-10.2) mg/dL Magnesium (1.6-2.3) mg/dL Total Protein (6.3-8.2) g/dL Albumin (3.5-5.0) g/dL Urine Appearance Cloudy H (Clear) Urine Protein Trace H (Negative) Urine Blood Moderate H (Negative) Urine Nitrite Positive H (Negative) Ur Leukocyte Esterase Large H (Negative) Urine RBC 12 H (0-5) /hpf Urine WBC >182 H (0-5) /hpf Urine WBC Clumps Many H (None) /hpf Urine Bacteria Many H (None) /hpf Hyaline Casts 11 H (0-2) /lpf Urine Mucus Rare H (None) /hpf 10/25/19 10/25/19 Range/Units 06:02 09:32 RBC (3.80-5.40) m/uL Hgb (11.4-16.0) gm/dL Hct (34.0-46.0) % MCV (80.0-100.0) fL MCHC (31.0-37.0) g/dL Plt Count (150-450) k/uL Lymphocytes # (1.0-4.8) k/uL APTT (22.0-30.0) sec Sodium 136 L (137-145) mmol/L Potassium 6.7 H* (3.5-5.1) mmol/L Chloride 113 H (98-107) mmol/L Carbon Dioxide 17 L (22-30) mmol/L BUN 56 H (7-17) mg/dL Creatinine 2.18 H (0.52-1.04) mg/dL Glucose 118 H (74-99) mg/dL POC Glucose (mg/dL) 147 H (75-99) mg/dL Calcium 8.3 L (8.4-10.2) mg/dL Magnesium 2.8 H (1.6-2.3) mg/dL Total Protein 6.2 L (6.3-8.2) g/dL Albumin 3.2 L (3.5-5.0) g/dL Urine Appearance (Clear) Urine Protein (Negative) Urine Blood (Negative) Urine Nitrite (Negative) Ur Leukocyte Esterase (Negative) Urine RBC (0-5) /hpf Urine WBC (0-5) /hpf Urine WBC Clumps (None) /hpf Urine Bacteria (None) /hpf Hyaline Casts (0-2) /lpf Urine Mucus (None) /hpf Microbiology - Last 24 Hours (Table) 10/25/19 00:45 Urine Culture - Preliminary Urine,Clean Catch Thrombosis Risk Factor Assmnt - Choose All That Apply Any of the Below Risk Factors Present?: Yes Each Factor Represents 1 point: Abnormal pulmonary function (COPD), Heart failure (<1month), Medical pt on bed rest, Obesity (BMI >25), Swollen legs (current) Other Risk Factors: Yes Each Risk Factor Represents 2 Points: Age 61-74 years Thrombosis Risk Factor Assessment Total Risk Factor Score: 7 Thrombosis Risk Factor Assessment Level: High Risk Assessment and Plan Plan: -Acute renal failure: Most probably secondary to acute tubular necrosis believed to be secondary to cardiorenal syndrome patient's creatinine is elevated to 2.28 baseline was 0.7 and month July patient will be continued on IV Lasix to because patient is on pneumonia results time repeat echocardiogram will be obtained, renal ultrasound is being obtained. -Possibility of UTI which I cannot completely rule out continue with the present antibiotics -Hyperkalemia secondary to acute renal failure and metabolic acidosis secondary to acute renal failure and Aldactone, patient will be a low potassium diet and is on Lasix . Repeat potassium level is being obtained if it continues to be higher may need Rate plus or minus insulin with D5 -Metabolic acidosis secondary to renal failure and Aldactone and patient is receiving sodium bicarbonate -Fibromyalgia -Hyperlipidemia -Hypertension -Seizure disorder -History of SVT -Depression For above-mentioned medical problems patient resumed on appropriate home medicat ions -DVT prophylaxis with subcutaneous heparin
[2019-10-25] MEDS: SODIUM BICARBONATE TAB 650 MG TAB PO SCH ×3 (12:14→19:45)
--- NOTE | 2019-10-25 14:30 | P.CNPUL ---
History of Present Illness Consult date: 10/25/19 Chief complaint: Acute hyperkalemia, massive fluid overload History of present illness: 69-year-old female patient, [facility] resident because of multiple medical problems and comorbidities, was transferred to our hospital as the patient has gained significant amount of weight and order 100 pounds over the past 1 month. Note that the patient was in the hospital on 08/24/2023 and acute GI bleeding where she was having maroon color stool and positive fecal occult bloods. She underwent EGD that showed mild gastritis and there was no evidence of active bleeding. She also has diverticular disease. She was [facility] to the [facility]. She has chronic kidney disease. The patient was found to have an acute kidney injury on top of chronic kidney failure. Her creatinine was up and the patient also had an acute hyperkalemia with a potassium level of 7.1. In the ED, the patient was treated with potassium cocktail where she was given calcium, D50 insulin and bicarb. Potassium level came down to 6.9. The EKG showed some first degree AV block along with right bundle branch block pattern which was present back in July 2019. In any rate, there was concern that the patient was having cardiac toxicity related to hyperkalemia. I saw this patient on the medical floor as transferred this patient to the intensive care unit for further care. The patient was already seen by nephrology and the patient was started on Lasix drip which is currently running a temperature grams an hour. The repeat potassium level is down to 6.7. Serum bicarb is at 17. BNP currently is at 56 with a creatinine of 2.1. 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 Her urine seems to be effective for now as the patient has more than 182 WBCs along with white clumps. The patient was started on Levaquin. She is afebrile. She is hemodynamically stable. She is on room air oxygen with a pulse ox of 98%. Ultrasound of the kidneys was done and the patient was found to have no evidence of hydronephrosis on the right kidney. Left kidney was not visualized. A Granados catheter is also to be inserted. Review of Systems Constitutional: Reports daytime sleepiness, Reports fatigue, Reports lethargy, Reports weakness, Reports weight gain Eyes: denies as per HPI, denies blurred vision, denies bulging eye, denies decreased vision, denies diplopia, denies discharge, denies dry eye, denies irritation, denies itching, denies pain, denies photophobia, denies loss of peripheral vision, denies loss of vision, denies tunnel vision/blind spots Ears: deny: decreased hearing, ear discharge, earache, tinnitus Ears, nose, mouth and throat: Reports as per HPI Breasts: absent: as per HPI, change in shape, gynecomastia, masses, nipple discharge, pain, skin changes, swelling Cardiovascular: Reports decreased exercise tolerance, Reports dyspnea on exertion Respiratory: Reports dyspnea Gastrointestinal: Reports as per HPI Genitourinary: Reports as per HPI Menstruation: Reports as per HPI Musculoskeletal: Reports as per HPI, Reports limitation of motion, Reports muscle weakness Musculoskeletal: bilateral: ankle swelling, absent: ankle pain, ankle stiffness Integumentary: Reports as per HPI Neurological: Reports as per HPI Psychiatric: Reports as per HPI Endocrine: Reports as per HPI Hematologic/Lymphatic: Reports as per HPI Allergic/Immunologic: Reports as per HPI Past Medical History Past Medical History: Cancer, Heart Failure, COPD, Diabetes Mellitus, Fibromyalgia, Hyperlipidemia, Hypertension, Renal Disease, Rheumatoid Arthritis (RA), Seizure Disorder, Supraventricular Tachycardia (SVT) Additional Past Medical History / Comment(s): Breast cancer right-sided post mastectomy followed by chemotherapy, is independent diabetes mellitus type 2, peripheral neuropathy related to diabetes, COPD, liver cirrhosis, hypertension, hyperlipidemia, fibromyalgia, chronic kidney disease, rheumatoid arthritis, seizure disorder, history of SVT, diabetic peripheral neuropathy, chronic anx iety and depression, morbid obesity with a BMI of 58.5, previous history of GI bleed, diverticular disease, history of hepatic encephalopathy History of Any Multi-Drug Resistant Organisms: VRE Date of last positivie culture/infection: 05/11/18 MDRO Source:: VRE URINE Past Surgical History: Adenoidectomy, Appendectomy, Breast Surgery, Cholecystectomy, Hysterectomy, Orthopedic Surgery, Tonsillectomy, Tubal Ligation Additional Past Surgical History / Comment(s): masectomy right, ganglion cyst right hand, total hysterectomy (hx of tubal pregnancies), lower teeth extracted. Past Anesthesia/Blood Transfusion Reactions: No Reported Reaction Past Psychological History: Anxiety, Depression Additional Psychological History / Comment(s): Pt currently is at [facility] for rehab. She needs assist with ADLS except feeds self. She states up until just lately she was getting up with a walker some.Her daughter lives with her. No experience. Did not work outside of the home. No inte rnational travel. . There is a pet dog in the home. No alcohol use Smoking Status: Former smoker Past Alcohol Use History: None Reported Additional Past Alcohol Use History / Comment(s): Pt started smoking in 1971 and qut in December 2017. Per patient she smoked 1-2 cigarettes a day after meals. Past Drug Use History: None Reported - Past Family History Father Family Medical History: Cancer, CVA/TIA Additional Family Medical History / Comment(s): 2000 from lung cancer Mother Family Medical History: Cancer, Dementia Additional Family Medical History / Comment(s): 2014 at age 86. Oral & Breast cancer Brother(s) Family Medical History: Asthma, Diabetes Mellitus, Fibromyalgia, Osteoarthritis (OA) Additional Family Medical History / Comment(s): Obesity. Joint replacements Medications and Allergies Home Medications Medication Instructions Recorded Confirmed Type Anastrozole [Arimidex] 1 mg PO DAILY@0909/30/14 10/25/19 History Sennosides [Senna] 8.6 mg PO BID@0900,2099 PRN 04/02/18 10/25/19 History Pantoprazole [Protonix] 40 mg PO DAILY@0607/02/18 10/25/19 History Ferrous Sulfate [Iron (65 MG 325 mg PO DAILY@0908/16/18 10/25/19 History Elemental)] Metoprolol Tartrate [Lopressor] 25 mg PO BID@0900,2100 08/16/18 10/25/19 History Ergocalciferol (Vitamin D2) 50,000 unit PO Q14D@89907/19/19 10/25/19 History [Drisdol] Acetaminophen [Tylenol] 650 mg PO Q4H PRN 08/24/19 10/25/19 History Dextran 70/Hypromellose [Genteal 1 drop BOTH EYES Q12H PRN 08/24/19 10/25/19 History Tears 0.1%-0.3% Drop] Folic Acid 1 mg PO DAILY@0908/24/19 10/25/19 History Insulin Lispro 4 units SQ TID@0800,1200,1700 08/24/19 10/25/19 History Lactulose 20 gm PO Q12H 08/24/19 10/25/19 History Multivitamins, Thera [Multivitamin 1 tab PO DAILY@89908/24/19 10/25/19 History (formulary)] Rifaximin [Xifaxan] 550 mg PO BID@0900,2100 08/24/19 10/25/19 History Spironolactone 50 mg PO DAILY@89908/24/19 10/25/19 History Thiamine [Vitamin B-1] 100 mg PO DAILY@89908/24/19 10/25/19 History Lidocaine 5% Patch [Lidoderm 5% 1 patch TOPICAL DAILY patch 09/03/19 10/25/19 Rx Patch] Dicyclomine [Bentyl] 10 mg PO TID 10/25/19 10/25/19 History Gabapentin [Neurontin] 300 mg PO BID@0900,2100 10/25/19 10/25/19 History HYDROcodone/APAP 10-325MG [[place] 1 tab PO BID@0600,1800 10/25/19 10/25/19 History 10-325] Hydrocodone/Acetaminophen [[place] 1 tab PO Q4H PRN 10/25/19 10/25/19 History 10-325] Insulin Glargine,Hum.rec.anlog 20 unit SQ HS@209910/25/19 10/25/19 History [Lantus Solostar] Melatonin 10 mg PO HS PRN 10/25/19 10/25/19 History Ondansetron [Zofran] 4 mg PO TID PRN 10/25/19 10/25/19 History Oxymetazoline 0.05% Nasl [place] 1 spray NASAL Q15M PRN MDD 3 DOSES 10/25/19 10/25/19 History [Afrin 0.05% Nasal [place]] Allergies Allergy/AdvReac Type Severity Reaction Status Date / Time cephalexin [From Keflex] Allergy Unknown Verified 10/25/19 06:50 duloxetine [From Cymbalta] Allergy Unknown Verified 10/25/19 06:50 Penicillins Allergy Rash/Hives Verified 10/25/19 06:50 phenobarbital Allergy Unknown Verified 10/25/19 06:50 phenytoin sodium Allergy Unknown Verified 10/25/19 06:50 [From Dilantin] phenytoin sodium extended Allergy Unknown Verified 10/25/19 06:50 [From Dilantin] primidone [From Mysoline] Allergy Unknown Verified 10/25/19 06:50 codeine AdvReac Nausea & Verified 10/25/19 06:50 Vomiting Physical Exam Vitals: Vital Signs Temp Pulse Pulse Resp BP BP Pulse Ox 10/25/19 13:00 83 15 113/61 100 10/25/19 12:00 98.7 F 62 80 13 122/68 98 10/25/19 08:00 97.6 F 80 22 141/73 96 10/25/19 04:00 18 10/25/19 03:27 98.8 F 71 18 122/61 98 10/25/19 02:45 80 18 145/62 97 10/25/19 00:30 97.9 F 77 18 144/52 96 10/25/19 00:00 65 10/24/19 23:45 62 18 135/68 95 10/24/19 22:45 70 18 130/56 10/24/19 21:17 99.1 F 60 20 121/66 95 Intake and Output 10/24/19 10/25/19 10/25/19 22:59 06:59 14:59 Intake Total 140 Output Total 700 565 Balance -700 -425 Intake: IV 140 Calcium Gluconate 1 gm In 100 Sodium Chloride 0.9% 100 ml @ 100 mls/hr IVPB ONCE ONE Rx#:[id number] Furosemide 100 mg In 20 Sodium Chloride 0.9% 90 ml @ 10 MG/HR 10 mls/hr IV .Q10H [facility] Rx#: [id number] KVO 20 Output: Urine 700 565 Straight 250 Other: Voiding Method Indwelling Catheter # Voids 1 Weight 145.15 kg 164.5 kg Morbidly obese, comfortable, not in acute distress Head exam was generally normal. There was no scleral icterus or corneal arcus. Mucous membranes were moist. Neck was supple and without jugular venous distension, thyromegaly, or carotid bruits. Carotids were easily palpable bilaterally. There was no adenopathy. Lungs were clear to auscultation and percussion, and with normal diaphragmatic excursion. No wheezes or rales were noted. Cardiac exam revealed the PMI to be normally situated and sized. The rhythm was regular and no extrasystoles were noted during several minutes of auscultation. The first and second heart sounds were normal and physiologic splitting of the second heart sound was noted. There were no murmurs, rubs, clicks, or gallops. Abdomen is distended. There is some abdominal wall edema. There is no direct tenderness amount tensile guarding at this point in time. Bowel sounds are hypoactive the present. Extremities shows extensive edema in all 4 extremities. There is no cyanosis or clubbing. Examination of the skin revealed no evidence of significant rashes, suspicious appearing nevi or other concerning lesions. Neurologically,Neurologically, the patient is awake and alert and the patient does not have any focal neurological deficit. Cranial nerves are essentially intact. Results - Laboratory Findings CBC and BMP: 10/24/19 22:21 10/25/19 09:32 PT/INR, D-dimer PT 11.0 sec (9.0-12.0) 10/24/19 23:32 INR 1.1 (<1.2) 10/24/19 23:32 Abnormal lab findings: Abnormal Labs 10/24/19 10/24/19 10/24/19 22:21 22:21 23:05 RBC 2.66 L Hgb 7.8 L Hct 26.7 L MCV 100.3 H MCHC 29.3 L Plt Count 114 L Lymphocytes # 0.6 L APTT Sodium 134 L Potassium 7.1 H* Chloride 112 H Carbon Dioxide 15 L BUN 55 H Creatinine 2.28 H Glucose 140 H POC Glucose (mg/dL) 177 H Calcium Magnesium 3.0 H Total Protein Albumin Urine Appearance Urine Protein Urine Blood Urine Nitrite Ur Leukocyte Esterase Urine RBC Urine WBC Urine WBC Clumps Urine Bacteria Hyaline Casts Urine Mucus 10/24/19 10/25/19 10/25/19 23:32 00:45 01:55 RBC Hgb Hct MCV MCHC Plt Count Lymphocytes # APTT 18.0 L Sodium Potassium 6.9 H* Chloride Carbon Dioxide BUN Creatinine Glucose POC Glucose (mg/dL) Calcium Magnesium Total Protein Albumin Urine Appearance Cloudy H Urine Protein Trace H Urine Blood Moderate H Urine Nitrite Positive H Ur Leukocyte Esterase Large H Urine RBC 12 H Urine WBC >182 H Urine WBC Clumps Many H Urine Bacteria Many H Hyaline Casts 11 H Urine Mucus Rare H 10/25/19 10/25/19 06:02 09:32 RBC Hgb Hct MCV MCHC Plt Count Lymphocytes # APTT Sodium 136 L Potassium 6.7 H* Chloride 113 H Carbon Dioxide 17 L BUN 56 H Creatinine 2.18 H Glucose 118 H POC Glucose (mg/dL) 147 H Calcium 8.3 L Magnesium 2.8 H Total Protein 6.2 L Albumin 3.2 L Urine Appearance Urine Protein Urine Blood Urine Nitrite Ur Leukocyte Esterase Urine RBC Urine WBC Urine WBC Clumps Urine Bacteria Hyaline Casts Urine Mucus Assessment and Plan Plan: 1 acute kidney injury secondary to ATN, on top of chronic kidney disease. The patient's creatinine was at 2.28 and January admission. Rule out obstructive uropathy. Rule out underlying urine checked infection, recurrent, contributing to her he compensated renal function. 2 UTI, recurrent with previous infections with multiple microorganisms including VRE 3 acute hyperkalemia with some EKG changes, improving and the potassium level is down to 6.7 as the patient is being treated. Nephrology is on the case 4 metabolic acidosis secondary to acute kidney injury. 5 massive fluid overload as the patient is up by around 100 pounds in weight and her body mass index is up to 58.5 with extensive edema in all 4 extremities 6 chronic stage III kidney disease with a baseline creatinine ranging between 11.5 7 history of liver cirrhosis with hepatic encephalopathy 8 history of CHF with diastolic dysfunction 9 fibromyalgia 10 hypertension 11 hyperlipidemia 12 rheumatoid arthritis 13 severe disorder 14 history of SVT. 15 diabetic peripheral neuropathy 16 history of breast cancer, right-sided post surgery followed by chemotherapy 17 chronic eczematous depression 18 extensive debility and the patient is [facility] resident Plan Transfer this patient to the intensive care unit Start the patient on Lasix drip at 10 mg an hour Insert Granados catheter Ultrasound the kidneys to rule out hydronephrosis Nephrologic consultation Monitor the cardiac rhythm Cover the patient with Levaquin awaiting further cultures. May consider the addition of daptomycin is VRE is confirmed Hold Aldactone for now which probably contributed to the hyperkalemia Resume home medications We'll continue to follow
[2019-10-25] MEDS: HEPARIN SODIUM,PORCINE 5,000 UNIT/ML 1 ML VIAL SQ SCH ×2 (16:16→23:14)
[2019-10-25 17:32] LABS: Glucose,Whole Blood 139 mg/dL (75-99)
[2019-10-25] MEDS: RIFAXIMIN 550 MG TABLET PO SCH (19:45)
[2019-10-25] MEDS: GABAPENTIN 100 MG CAP PO SCH (19:46)
[2019-10-25] MEDS: METOPROLOL TARTRATE 25 MG TAB PO SCH (19:46)
[2019-10-25 20:02] LABS: Glucose,Whole Blood 125 mg/dL (75-99)
[2019-10-25] MEDS ORDERED: SENNOSIDES 8.6 MG TAB PO PRN (21:00)
[2019-10-25] MEDS: INSULIN DETEMIR (LEVEMIR) 100 UNIT/ML SYR SQ SCH (22:18)
[2019-10-25 22:25] LABS: Glucose,Whole Blood 115 mg/dL (75-99)
[2019-10-26] MEDS: FUROSEMIDE 100 MG in SODIUM CHLORIDE 0.9% 90 ML IV SCH ×3 (01:19→20:20)
[2019-10-26] MEDS: NOREPINEPHRINE 4 MG in SODIUM CHLORIDE 0.9% 250 ML IV SCH ×2 (03:06→14:23)
[2019-10-26 05:43] LABS: Calcium 8.3 mg/dL (8.4-10.2); Magnesium 2.6 mg/dL (1.6-2.3); Potassium 5.1 mmol/L (3.5-5.1)
[2019-10-26 05:52] LABS: Basophils % (A) 1 %; Eosinophils # (A) 0.1 k/uL (0-0.7); Eosinophils % (A) 4 %; HCT 24.7 % (34.0-46.0); HGB 7.3 gm/dL (11.4-16.0); Hypochromasia Marked; Lymphocytes # (A) 0.7 k/uL (1.0-4.8); Lymphocytes % (A) 21 %; MCH 28.8 pg (25.0-35.0); MCHC 29.4 g/dL (31.0-37.0); Macrocytosis Slight; Mean Platelet Volume 8.1; Monocytes # (A) 0.3 k/uL (0-1.0); Monocytes % (A) 9 %; Neutrophils # (A) 2.2 k/uL (1.3-7.7); Neutrophils % (A) 63 %; Platelet Count 107 k/uL (150-450); RBC 2.52 m/uL (3.80-5.40); RDW 15.3 % (11.5-15.5); WBC 3.5 k/uL (3.8-10.6)
[2019-10-26] MEDS ORDERED: LEVOFLOXACIN 500MG-D5W PMX 500 MG in DEXTROSE/WATER 1 100ML.BAG IVPB SCH (06:00)
[2019-10-26 07:19] LABS: Glucose,Whole Blood 103 mg/dL (75-99)
--- NOTE | 2019-10-26 08:09 | XR ---
EXAMINATION TYPE: XR chest 1V portable DATE OF EXAM: 10/26/2019 CLINICAL HISTORY: Shortness of breath TECHNIQUE: Semiupright portable view of the chest COMPARISON: 10/24/2019 chest radiograph FINDINGS: The cardiomediastinal silhouette is within normal limits for size. Pulmonary vasculature i s normal. There is no focal air space opacity, pleural effusion, or pneumothorax seen. The osseous st ructures are intact. IMPRESSION: No acute cardiopulmonary process.
--- NOTE | 2019-10-26 08:48 | ECHOF ---
Referral Reason:CHF MEASUREMENTS -------- HEIGHT: 167.6 cm WEIGHT: 164.2 kg BP: 141/73 IVSd: 1.6 cm (0.6 - 1.1) LVIDd: 4.7 cm (3.9 - 5.3) LVPWd: 1.4 cm (0.6 - 1.1) EDV(Teich): 103 ml IVSs: 1.8 cm LVIDs: 2.7 cm LVPWs: 1.4 cm %IVS Thck: 13 % ESV(Teich): 27 ml EF(Teich): 74 % %FS: 43 % SV(Teich): 76 ml LA Diam: 3.6 cm (2.7 - 3.8) RVIDd: 5.1 cm (< 3.3) RA Diam: 6.1 cm Ao Diam: 3.0 cm (2.0 - 3.7) AV Cusp: 1.6 cm (1.5 - 2.6) EPSS: 1.2 cm AV Vmax: 2.56 m/s AV maxP.31 mmHg AV Vmax: 2.63 m/s AV Vmean: 1.90 m/s AV maxP.74 mmHg AV meanP.81 mmHg AV Env.Ti: 286 ms AV VTI: 54.3 cm TR Vmax: 2.83 m/s TR maxP.96 mmHg RAP: 5.00 mmHg RVSP: 36.96 mmHg MV EF SLOPE: 114.86 mm/s (70 - 150) MV EXCURSION: 25.55 mm (> 18.000) FINDINGS -------- Morbid Obesity, patient was not able to turn. The left ventricular size is normal. There is moderate concentric left ventricular hypertrophy. O verall left ventricular systolic function is normal with, an EF between 55 - 60 %. The right ventricle is severely enlarged. The left atrial size is normal. The right atrium is moderately enlarged. Interatrial and interventricular septum intact. The aortic valve is trileaflet and appears structurally normal. There is mild aortic stenosis prese nt. Peak/mean gradient across the Aortic Valve is 27.74mmHg / 15.81mmHg. The mitral valve was not well visualized. Mild mitral regurgitation is present. Mild tricuspid regurgitation present. There is mild pulmonary hypertension. The right ventricular systolic pressure, as measured by Doppler, is 36.96mmHg. Trace/mild (physiologic) pulmonic regurgitation. The aortic root size is normal. IVC Not well visulized. There is no pericardial effusion. CONCLUSIONS -------- 1. The left ventricular size is normal. 2. There is moderate concentric left ventricular hypertrophy. 3. Overall left ventricular systolic function is normal with, an EF between 55 - 60 %. 4. The right ventricle is severely enlarged. 5. The right atrium is moderately enlarged. 6. There is mild aortic stenosis present. 7. Peak/mean gradient across the Aortic Valve is 27.74mmHg / 15.81mmHg. 8. Mild mitral regurgitation is present. 9. Mild tricuspid regurgitation present. 10. There is mild pulmonary hypertension. 11. The right ventricular systolic pressure, as measured by Doppler, is 36.96mmHg. 12. Trace/mild (physiologic) pulmonic regurgitation. MEDICAL DETAILIST: Rachel Villalobos RDCS
[2019-10-26] MEDS: HYDROcodone/APAP 10-325MG 1 EACH TAB PO PRN ×3 (08:50→20:25)
--- NOTE | 2019-10-26 09:20 | P.PN ---
Subjective patient is seen in follow-up for acute kidney injury. renal function fairly stable. Hyperkalemia resolved. Currently maintained on Lasix drip. urine output averaging 200 mL an hour. Still very edematous. Denies chest pain or shortness of breath. on low-dose Levophed. Vital signs are stable. General: The patient appeared well nourished and normally developed. HEENT: Head exam is unremarkable. Neck is without jugular venous distension. LUNGS: Breath sounds decreased. HEART: Rate and Rhythm are regular. ABDOMEN: soft, nontender. Obese. EXTREMITITES: 3+ edema. Objective - Vital Signs Vital signs: Vital Signs Temp 98.3 F 10/26/19 08:00 Pulse 69 10/26/19 08:00 Resp 15 10/26/19 08:00 BP 113/60 10/26/19 08:00 Pulse Ox 91 L 10/26/19 08:00 Intake & Output 10/25/19 10/26/19 10/26/19 18:59 06:59 18:59 Intake Total 646.833 444.060 40 Output Total 2065 2795 610 Balance -1418.167 -2350.940 -570 Weight 162.386 kg Intake: IV 240 240 40 Calcium Gluconate 1 gm In 100 Sodium Chloride 0.9% 100 ml @ 100 mls/hr IVPB ONCE ONE Rx#:[id number] Furosemide 100 mg In 70 120 20 Sodium Chloride 0.9% 90 ml @ 10 MG/HR 10 mls/hr IV .Q10H [facility] Rx#: [id number] KVO 70 120 20 Intake, IV Titration 66.833 204.060 Amount Furosemide 100 mg In 66.833 90.167 Sodium Chloride 0.9% 90 ml @ 10 MG/HR 10 mls/hr IV .Q10H [facility] Rx#: [id number] Levofloxacin 500Mg-D5w 100 Pmx 500 mg In Dextrose/ Water 1 100ml.bag @ 100 mls/hr IVPB Q24H [facility] Rx#: [id number] Norepinephrine 4 mg In 13.893 Sodium Chloride 0.9% 250 ml @ 0.05 MCG/KG/MIN 31. 337 mls/hr IV .Q8H7M [facility] Rx#:[id number] Oral 340 Output: Urine 5 2795 610 Straight 250 Other: Voiding Method Indwelling Catheter Indwelling Catheter - Labs CBC & Chem 7: 10/26/19 04:56 10/26/19 04:56 Labs: Abnormal Lab Results - Last 24 Hours (Table) 10/25/19 10/25/19 10/25/19 Range/Units 09:32 14:12 17:30 WBC (3.8-10.6) k/uL RBC (3.80-5.40) m/uL Hgb (11.4-16.0) gm/dL Hct (34.0-46.0) % MCHC (31.0-37.0) g/dL Plt Count (150-450) k/uL Lymphocytes # (1.0-4.8) k/uL Sodium 136 L (137-145) mmol/L Potassium 6.7 H* 6.3 H* (3.5-5.1) mmol/L Chloride 113 H (98-107) mmol/L Carbon Dioxide 17 L (22-30) mmol/L BUN 56 H (7-17) mg/dL Creatinine 2.18 H (0.52-1.04) mg/dL Glucose 118 H (74-99) mg/dL POC Glucose (mg/dL) 139 H (75-99) mg/dL Calcium 8.3 L (8.4-10.2) mg/dL Magnesium 2.8 H (1.6-2.3) mg/dL Total Protein 6.2 L (6.3-8.2) g/dL Albumin 3.2 L (3.5-5.0) g/dL 10/25/19 10/25/19 10/25/19 Range/Units 18:31 19:59 22:24 WBC (3.8-10.6) k/uL RBC (3.80-5.40) m/uL Hgb (11.4-16.0) gm/dL Hct (34.0-46.0) % MCHC (31.0-37.0) g/dL Plt Count (150-450) k/uL Lymphocytes # (1.0-4.8) k/uL Sodium (137-145) mmol/L Potassium 5.4 H (3.5-5.1) mmol/L Chloride (98-107) mmol/L Carbon Dioxide (22-30) mmol/L BUN (7-17) mg/dL Creatinine (0.52-1.04) mg/dL Glucose (74-99) mg/dL POC Glucose (mg/dL) 125 H 115 H (75-99) mg/dL Calcium (8.4-10.2) mg/dL Magnesium (1.6-2.3) mg/dL Total Protein (6.3-8.2) g/dL Albumin (3.5-5.0) g/dL 10/26/19 10/26/19 10/26/19 Range/Units 04:56 04:56 07:19 WBC 3.5 L (3.8-10.6) k/uL RBC 2.52 L (3.80-5.40) m/uL Hgb 7.3 L (11.4-16.0) gm/dL Hct 24.7 L (34.0-46.0) % MCHC 29.4 L (31.0-37.0) g/dL Plt Count 107 L (150-450) k/uL Lymphocytes # 0.7 L (1.0-4.8) k/uL Sodium 135 L (137-145) mmol/L Potassium (3.5-5.1) mmol/L Chloride 109 H (98-107) mmol/L Carbon Dioxide 19 L (22-30) mmol/L BUN 51 H (7-17) mg/dL Creatinine 2.09 H (0.52-1.04) mg/dL Glucose (74-99) mg/dL POC Glucose (mg/dL) 103 H (75-99) mg/dL Calcium 8.3 L (8.4-10.2) mg/dL Magnesium 2.6 H (1.6-2.3) mg/dL Total Protein (6.3-8.2) g/dL Albumin (3.5-5.0) g/dL Microbiology - Last 24 Hours (Table) 10/24/19 22:21 Blood Culture - Preliminary Blood No Growth after 24 hours 10/25/19 00:45 Urine Culture - Preliminary Urine,Clean Catch Assessment and Plan Plan: assessment: 1. acute kidney injury secondary to ATN secondary to cardiorenal syndrome. Creatinine 2.28 on admission - 2.09 today. no hydronephrosis noted on kidney ultrasound. Left kidney wasn't visualized. 2. UTI maintained on antibiotics. 3. Hyperkalemia secondary to acute kidney injury, metabolic acidosis and use of spironolactone. resolved. 4. Metabolic acidosis secondary to acute kidney injury maintained on oral sodium bicarb. Improving. 5. Volume overload. 6. Diabetes mellitus. 7. Chronic kidney disease stage III. baseline creatinine in the range of 1- 1.5. Etiology is nephrosclerosis and diabetic kidney disease. 8. Acute on chronic diastolic CHF. 9. Anemia of chronic kidney disease. Rule out iron deficiency. plan: maintain Lasix drip at 10 mL an hour. hold spironolactone. Continue to monitor renal function and urine output. follow-up cultures. Low-salt diet. wean Levophed. check iron studies. Check a.m. cortisol level.
[2019-10-26] MEDS: LIDOCAINE 5% PATCH TOPICAL SCH (10:03)
[2019-10-26] MEDS: SODIUM BICARBONATE TAB 650 MG TAB PO SCH ×3 (10:04→20:24)
[2019-10-26] MEDS: THIAMINE 100 MG TAB PO SCH (10:04)
[2019-10-26] MEDS: HEPARIN SODIUM,PORCINE 5,000 UNIT/ML 1 ML VIAL SQ SCH ×2 (10:04→17:03)
[2019-10-26] MEDS: GABAPENTIN 100 MG CAP PO SCH ×2 (10:05→20:24)
[2019-10-26] MEDS: RIFAXIMIN 550 MG TABLET PO SCH ×2 (10:05→20:24)
[2019-10-26] MEDS: FOLIC ACID 1 MG TAB PO SCH (10:05)
[2019-10-26] MEDS: FERROUS SULFATE 325 MG TAB PO SCH (10:05)
[2019-10-26] MEDS: ANASTROZOLE 1 MG TAB PO SCH (10:05)
[2019-10-26] MEDS: LACTULOSE 20 GM/30 ML CUP PO SCH ×2 (10:06→20:21)
[2019-10-26] MEDS: METOPROLOL TARTRATE 25 MG TAB PO SCH ×2 (10:51→20:25)
--- NOTE | 2019-10-26 11:52 | P.PN ---
Subjective Progress Note Date: 10/26/19 69-year-old female patient, prison resident because of multiple medical problems and comorbidities, was transferred to our hospital as the patient has gained significant amount of weight and order 100 pounds over the past 1 month. Note that the patient was in the hospital on 08/24/2023 and acute GI bleeding where she was having maroon color stool and positive fecal occult bloods. She underwent EGD that showed mild gastritis and there was no evidence of active bleeding. She also has diverticular disease. She was [facility] the prison. She has chronic kidney disease. The patient was found to have an acute kidney injury on top of chronic kidney failure. Her creatinine was up and the patient also had an acute hyperkalemia with a potassium level of 7.1. In the ED, the patient was treated with potassium cocktail where she was given calcium, D50 insulin and bicarb. Potassium level came down to 6.9. The EKG showed some first degree AV block along with right bundle branch block pattern which was present back in July 2019. In any rate, there was concern that the patient was having cardiac toxicity related to hyperkalemia. I saw this patient on the medical floor as transferred this patient to the intensive care unit for further care. The patient was already seen by nephrology and the patient was started on Lasix drip which is currently running a temperature grams an hour. The repeat potassium level is down to 6.7. Serum bicarb is at 17. BNP currently is at 56 with a creatinine of 2.1. 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 Her urine seems to be effective for now as the patient has more than 182 WBCs along with white clumps. The patient was started on Levaquin. She is afebrile. She is hemodynamically stable. She is on room air oxygen with a pulse ox of 98%. Ultrasound of the kidneys was done and the patient was found to have no evidence of hydronephrosis on the right kidney. Left kidney was not visualized. A Granados catheter is also to be inserted. 10/26/2019, the patient is being seen for a follow-up. Overnight the patient to be started on some pressors as the patient was having some lower blood pressures the patient was being diuresed on Lasix drip at the rate of 10 mg an hour. There is adequate urine output for now. Granados catheter in place. The patient continues to be edematous in all 4 extremities. No respiratory difficulties. No cough sputum production chest tightness or wheezing. The patient's overall body discomfort and pain is improved as the patient is diuresing well. Her net fluid balance over the past 24 hours is been in the order of 1.7 and then 1.5 L. Body weight is gradually going down as the patient has lost around 2 kg since yesterday. As for the potassium level, this is also improving and the potassium level is down to 5.1. Serum bicarb is 19. Creatinine is at 2.09 with a mean of 51. Hemoglobin stable at 7.3. Urine cultures still pending and the blood cultures still pending. The patient is covered empirically with IV Levaquin. Objective - Vital Signs Vital signs: Vital Signs Temp 98.3 F 10/26/19 08:00 Pulse 66 10/26/19 11:00 Resp 15 10/26/19 11:00 BP 93/46 10/26/19 11:00 Pulse Ox 90 L 10/26/19 11:00 Intake & Output 10/25/19 10/26/19 10/26/19 18:59 06:59 18:59 Intake Total 646.833 444.060 100 Output Total 2065 2795 1560 Balance -1418.167 -2350.940 -1460 Weight 162.386 kg Intake: IV 240 240 100 Calcium Gluconate 1 gm In 100 Sodium Chloride 0.9% 100 ml @ 100 mls/hr IVPB ONCE ONE Rx#:[id number] Furosemide 100 mg In 70 120 50 Sodium Chloride 0.9% 90 ml @ 10 MG/HR 10 mls/hr IV .Q10H [facility] Rx#: [id number] KVO 70 120 50 Intake, IV Titration 66.833 204.060 Amount Furosemide 100 mg In 66.833 90.167 Sodium Chloride 0.9% 90 ml @ 10 MG/HR 10 mls/hr IV .Q10H [facility] Rx#: [id number] Levofloxacin 500Mg-D5w 100 Pmx 500 mg In Dextrose/ Water 1 100ml.bag @ 100 mls/hr IVPB Q24H [facility] Rx#: [id number] Norepinephrine 4 mg In 13.893 Sodium Chloride 0.9% 250 ml @ 0.05 MCG/KG/MIN 31. 337 mls/hr IV .Q8H7M [facility] Rx#:[id number] Oral 340 Output: Urine 2065 2795 1560 Straight 250 Other: Voiding Method Indwelling Catheter Indwelling Catheter Indwelling Catheter - Exam Morbidly obese, comfortable, not in acute distress Head exam was generally normal. There was no scleral icterus or corneal arcus. Mucous membranes were moist. Neck was supple and without jugular venous distension, thyromegaly, or carotid bruits. Carotids were easily palpable bilaterally. There was no adenopathy. Lungs were clear to auscultation and percussion, and with normal diaphragmatic excursion. No wheezes or rales were noted. Cardiac exam revealed the PMI to be normally situated and sized. The rhythm was regular and no extrasystoles were noted during several minutes of auscultation. The first and second heart sounds were normal and physiologic splitting of the second heart sound was noted. There were no murmurs, rubs, clicks, or gallops. Abdomen is distended. There is some abdominal wall edema. There is no direct tenderness amount tensile guarding at this point in time. Bowel sounds are hypoactive the present. Extremities shows extensive edema in all 4 extremities. There is no cyanosis or clubbing. Examination of the skin revealed no evidence of significant rashes, suspicious appearing nevi or other concerning lesions. Neurologically,Neurologically, the patient is awake and alert and the patient does not have any focal neurological deficit. Cranial nerves are essentially intact. - Labs CBC & Chem 7: 10/26/19 04:56 10/26/19 04:56 Labs: Abnormal Lab Results - Last 24 Hours (Table) 10/25/19 10/25/19 10/25/19 Range/Units 14:12 17:30 18:31 WBC (3.8-10.6) k/uL RBC (3.80-5.40) m/uL Hgb (11.4-16.0) gm/dL Hct (34.0-46.0) % MCHC (31.0-37.0) g/dL Plt Count (150-450) k/uL Lymphocytes # (1.0-4.8) k/uL Sodium (137-145) mmol/L Potassium 6.3 H* 5.4 H (3.5-5.1) mmol/L Chloride (98-107) mmol/L Carbon Dioxide (22-30) mmol/L BUN (7-17) mg/dL Creatinine (0.52-1.04) mg/dL POC Glucose (mg/dL) 139 H (75-99) mg/dL Calcium (8.4-10.2) mg/dL Magnesium (1.6-2.3) mg/dL 10/25/19 10/25/19 10/26/19 Range/Units 19:59 22:24 04:56 WBC (3.8-10.6) k/uL RBC (3.80-5.40) m/uL Hgb (11.4-16.0) gm/dL Hct (34.0-46.0) % MCHC (31.0-37.0) g/dL Plt Count (150-450) k/uL Lymphocytes # (1.0-4.8) k/uL Sodium 135 L (137-145) mmol/L Potassium (3.5-5.1) mmol/L Chloride 109 H (98-107) mmol/L Carbon Dioxide 19 L (22-30) mmol/L BUN 51 H (7-17) mg/dL Creatinine 2.09 H (0.52-1.04) mg/dL POC Glucose (mg/dL) 125 H 115 H (75-99) mg/dL Calcium 8.3 L (8.4-10.2) mg/dL Magnesium 2.6 H (1.6-2.3) mg/dL 10/26/19 10/26/19 Range/Units 04:56 07:19 WBC 3.5 L (3.8-10.6) k/uL RBC 2.52 L (3.80-5.40) m/uL Hgb 7.3 L (11.4-16.0) gm/dL Hct 24.7 L (34.0-46.0) % MCHC 29.4 L (31.0-37.0) g/dL Plt Count 107 L (150-450) k/uL Lymphocytes # 0.7 L (1.0-4.8) k/uL Sodium (137-145) mmol/L Potassium (3.5-5.1) mmol/L Chloride (98-107) mmol/L Carbon Dioxide (22-30) mmol/L BUN (7-17) mg/dL Creatinine (0.52-1.04) mg/dL POC Glucose (mg/dL) 103 H (75-99) mg/dL Calcium (8.4-10.2) mg/dL Magnesium (1.6-2.3) mg/dL Microbiology - Last 24 Hours (Table) 10/24/19 22:21 Blood Culture - Preliminary Blood No Growth after 24 hours 10/25/19 00:45 Urine Culture - Preliminary Urine,Clean Catch Assessment and Plan Plan: 1 acute kidney injury secondary to ATN, on top of chronic kidney disease. Renal function continues to improve and the patient is being diuresis with IV Lasix with improvement in the volume status and the patient has lost around 2 kg since yesterday. Still has extensive muscle edema in all 4 extremities. 2 UTI, recurrent with previous infections with multiple microorganisms including VRE, and we are repeating the follow-up urine cultures 3 acute hyperkalemia with some EKG changes, recovered and the potassium level normalized 4 metabolic acidosis secondary to acute kidney injury, improving 5 massive fluid overload as the patient is up by around 100 pounds in weight and her body mass index is up to 58.5 with extensive edema in all 4 extremities 6 chronic stage III kidney disease with a baseline creatinine ranging between 1- 1.5 7 history of liver cirrhosis with hepatic encephalopathy 8 history of CHF with diastolic dysfunction 9 fibromyalgia 10 hypertension 11 hyperlipidemia 12 rheumatoid arthritis 13 severe disorder 14 history of SVT. 15 diabetic peripheral neuropathy 16 history of breast cancer, right-sided post surgery followed by chemotherapy 17 chronic anxiety depression 18 extensive debility and the patient is prison resident Plan Continue on Lasix drip at 10 mg an hour Granados catheter Ultrasound the kidneys to rule out hydronephrosis Nephrologic consultation is appreciated Monitor the cardiac rhythm, as the patient is recovering from his hyperkalemia Cover the patient with Levaquin awaiting further cultures. May consider the addition of daptomycin is VRE is confirmed, nevertheless the follow-up culture negative for now Hold Aldactone for now which probably contributed to the hyperkalemia Resume home medications We'll continue to follow
[2019-10-26 12:02] LABS: Glucose,Whole Blood 115 mg/dL (75-99)
--- NOTE | 2019-10-26 16:28 | P.PN ---
Subjective Patient is admitted for volume overload probably secondary to chronic sun dysfunction with acute exacerbation patient the is being treated for cardiorenal syndrome with IV Lasix drip patient's creatinine started improving potassium improved patient feels better Constitutional: Patient is tired Cardio vascular: denied any chest pain, palpitations Gastrointestinal denied any nausea vomiting Pulmonary: Does have some shortness of breath Neurologic denied any new focal deficits All inpatient medications were reviewed and appropriate changes in these medications as dictated in the interval history and assessment and plan. Objective - Vital Signs Vital signs: Vital Signs Temp 98.0 F 10/26/19 12:00 Pulse 81 10/26/19 15:00 Resp 13 10/26/19 15:00 BP 109/49 10/26/19 15:00 Pulse Ox 98 10/26/19 15:00 Intake & Output 10/25/19 10/26/19 10/26/19 18:59 06:59 18:59 Intake Total 646.833 444.060 367.992 Output Total 2065 2795 2635 Balance -1418.167 -2350.940 -2267.008 Weight 162.386 kg Intake: IV 240 240 190 Calcium Gluconate 1 gm In 100 Sodium Chloride 0.9% 100 ml @ 100 mls/hr IVPB ONCE ONE Rx#:[id number] Furosemide 100 mg In 70 120 90 Sodium Chloride 0.9% 90 ml @ 10 MG/HR 10 mls/hr IV .Q10H [facility] Rx#: [id number] KVO 70 120 100 Intake, IV Titration 66.833 204.060 177.992 Amount Furosemide 100 mg In 66.833 90.167 Sodium Chloride 0.9% 90 ml @ 10 MG/HR 10 mls/hr IV .Q10H [facility] Rx#: [id number] Levofloxacin 500Mg-D5w 100 Pmx 500 mg In Dextrose/ Water 1 100ml.bag @ 100 mls/hr IVPB Q24H [facility] Rx#: [id number] Norepinephrine 4 mg In 13.893 177.992 Sodium Chloride 0.9% 250 ml @ 0.05 MCG/KG/MIN 31. 337 mls/hr IV .Q8H7M [facility] Rx#:[id number] Oral 340 Output: Urine 2065 2795 2635 Straight 250 Other: Voiding Method Indwelling Catheter Indwelling Catheter Indwelling Catheter - Exam PHYSICAL EXAMINATION: GENERAL: The patient is alert and oriented x3, not in any acute distress. Moderately obese does have some anasarca as well HEENT: Pupils are round and equally reacting to light. EOMI. No scleral icterus. No conjunctival pallor. Normocephalic, atraumatic. No pharyngeal erythema. No thyromegaly. CARDIOVASCULAR: S1 and S2 present. No murmurs, rubs, or gallops. PULMONARY: Chest is clear to auscultation, no wheezing or crackles. ABDOMEN: Soft, nontender, nondistended, normoactive bowel sounds. No palpable organomegaly. MUSCULOSKELETAL: No joint swelling or deformity. EXTREMITIES: No cyanosis, clubbing, or pedal edema. NEUROLOGICAL: Gross neurological examination did not reveal any focal deficits. SKIN: No rashes. - Labs CBC & Chem 7: 10/26/19 04:56 10/26/19 04:56 Labs: Abnormal Lab Results - Last 24 Hours (Table) 10/25/19 10/25/19 10/25/19 Range/Units 17:30 18:31 19:59 WBC (3.8-10.6) k/uL RBC (3.80-5.40) m/uL Hgb (11.4-16.0) gm/dL Hct (34.0-46.0) % MCHC (31.0-37.0) g/dL Plt Count (150-450) k/uL Lymphocytes # (1.0-4.8) k/uL Sodium (137-145) mmol/L Potassium 5.4 H (3.5-5.1) mmol/L Chloride (98-107) mmol/L Carbon Dioxide (22-30) mmol/L BUN (7-17) mg/dL Creatinine (0.52-1.04) mg/dL POC Glucose (mg/dL) 139 H 125 H (75-99) mg/dL Calcium (8.4-10.2) mg/dL Magnesium (1.6-2.3) mg/dL 10/25/19 10/26/19 10/26/19 Range/Units 22:24 04:56 04:56 WBC 3.5 L (3.8-10.6) k/uL RBC 2.52 L (3.80-5.40) m/uL Hgb 7.3 L (11.4-16.0) gm/dL Hct 24.7 L (34.0-46.0) % MCHC 29.4 L (31.0-37.0) g/dL Plt Count 107 L (150-450) k/uL Lymphocytes # 0.7 L (1.0-4.8) k/uL Sodium 135 L (137-145) mmol/L Potassium (3.5-5.1) mmol/L Chloride 109 H (98-107) mmol/L Carbon Dioxide 19 L (22-30) mmol/L BUN 51 H (7-17) mg/dL Creatinine 2.09 H (0.52-1.04) mg/dL POC Glucose (mg/dL) 115 H (75-99) mg/dL Calcium 8.3 L (8.4-10.2) mg/dL Magnesium 2.6 H (1.6-2.3) mg/dL 10/26/19 10/26/19 Range/Units 07:19 12:01 WBC (3.8-10.6) k/uL RBC (3.80-5.40) m/uL Hgb (11.4-16.0) gm/dL Hct (34.0-46.0) % MCHC (31.0-37.0) g/dL Plt Count (150-450) k/uL Lymphocytes # (1.0-4.8) k/uL Sodium (137-145) mmol/L Potassium (3.5-5.1) mmol/L Chloride (98-107) mmol/L Carbon Dioxide (22-30) mmol/L BUN (7-17) mg/dL Creatinine (0.52-1.04) mg/dL POC Glucose (mg/dL) 103 H 115 H (75-99) mg/dL Calcium (8.4-10.2) mg/dL Magnesium (1.6-2.3) mg/dL Microbiology - Last 24 Hours (Table) 10/25/19 00:45 Urine Culture - Preliminary Urine,Clean Catch Gram Neg Bacilli 10/24/19 22:21 Blood Culture - Preliminary Blood No Growth after 24 hours Assessment and Plan Plan: -Acute renal failure: Most probably secondary to acute tubular necrosis believed to be secondary to cardiorenal syndrome patient's creatinine is elevated to 2.28 , now around 2 improved baseline was 0.7 and month July patient will be continued on IV Lasix to because patient echocardiogram repeat 1 showed normal ejection fraction) to be severely enlarged right atrium is moderately enlarged with mild pulmonary hypertension. Renal DID NOT SHOW ANY SIGNIFICANT ABNORMALITY -Possibility of UTI which I cannot completely rule out continue with the present antibiotics -Hyperkalemia secondary to acute renal failure and metabolic acidosis secondary to acute renal failure and Aldactone, patient is on low potassium diet and is on Lasix . Potassium improved -Metabolic acidosis secondary to renal failure and Aldactone and patient is receiving sodium bicarbonate -Fibromyalgia -Hyperlipidemia -Hypertension -Seizure disorder -History of SVT -Depression For above-mentioned medical problems patient resumed on appropriate home medications -DVT prophylaxis with subcutaneous heparin
[2019-10-26 17:15] LABS: Glucose,Whole Blood 116 mg/dL (75-99)
[2019-10-26 18:45] LABS: % Iron Saturation 5.31 (12.00-45.00); Ferritin 16.1 ng/mL (10.0-291.0)
[2019-10-26] MEDS: INSULIN DETEMIR (LEVEMIR) 100 UNIT/ML SYR SQ SCH (20:30)
[2019-10-26 20:31] LABS: Glucose,Whole Blood 121 mg/dL (75-99)
[2019-10-27] MEDS: HEPARIN SODIUM,PORCINE 5,000 UNIT/ML 1 ML VIAL SQ SCH ×3 (01:34→16:47)
[2019-10-27] MEDS: HYDROcodone/APAP 10-325MG 1 EACH TAB PO PRN ×4 (01:34→18:17)
[2019-10-27] MEDS: NOREPINEPHRINE 4 MG in SODIUM CHLORIDE 0.9% 250 ML IV SCH ×2 (04:28→04:30)
[2019-10-27 05:28] LABS: HCT 23.4 % (34.0-46.0); HGB 7.3 gm/dL (11.4-16.0); Hypochromasia Marked; MCH 30.2 pg (25.0-35.0); MCHC 31.3 g/dL (31.0-37.0); MCV 96.5 fL (80.0-100.0); Mean Platelet Volume 8.1; RBC 2.42 m/uL (3.80-5.40); RDW 15.7 % (11.5-15.5); WBC 2.2 k/uL (3.8-10.6)
[2019-10-27 05:35] LABS: Calcium 8.2 mg/dL (8.4-10.2); Potassium 4.4 mmol/L (3.5-5.1)
[2019-10-27] MEDS: FUROSEMIDE 100 MG in SODIUM CHLORIDE 0.9% 90 ML IV SCH ×2 (05:44→21:03)
[2019-10-27 05:58] LABS: Band Neutrophils % 1 %; Lymphocytes # (M) 0.51 k/uL (1.0-4.8); Monocytes # (M) 0.26 k/uL (0-1.0); Neutrophils % (M) 55 %; Nucleated Red Blood Cells 0 /100 WBC (0-0); Polychromasia Present; Total Cells Counted 100
[2019-10-27 05:59] LABS: Platelet Count 94 k/uL (150-450)
[2019-10-27] MEDS ORDERED: LEVOFLOXACIN 250MG-D5W PMX 250 MG in DEXTROSE/WATER 1 50ML.BAG IVPB SCH (06:00)
[2019-10-27 06:01] LABS: Glucose,Whole Blood 93 mg/dL (75-99)
[2019-10-27] MEDS ORDERED: COSYNTROPIN 0.25 MG VIAL IVP ONE (09:00)
--- NOTE | 2019-10-27 09:19 | P.PN ---
Subjective patient is seen in follow-up for acute kidney injury. renal function stable. Hyperkalemia resolved. Currently maintained on Lasix drip. urine output averaging 200 mL an hour. Still very edematous. weight trending down.Denies chest pain or shortness of breath. off Levophed. Vital signs are stable. General: The patient appeared well nourished and normally developed. HEENT: Head exam is unremarkable. Neck is without jugular venous distension. LUNGS: Breath sounds decreased. HEART: Rate and Rhythm are regular. ABDOMEN: soft, nontender. Obese. EXTREMITITES: 3+ edema. Objective - Vital Signs Vital signs: Vital Signs Temp 98.3 F 10/27/19 08:00 Pulse 71 10/27/19 09:00 Resp 16 10/27/19 09:00 BP 120/60 10/27/19 09:00 Pulse Ox 94 L 10/27/19 09:00 Intake & Output 10/26/19 10/27/19 10/27/19 18:59 06:59 18:59 Intake Total 527.992 426.667 20 Output Total 3535 2555 350 Balance -3007.008 -2128.333 -330 Weight 154.6 kg Intake: IV 250 250 20 Furosemide 100 mg In 120 120 10 Sodium Chloride 0.9% 90 ml @ 10 MG/HR 10 mls/hr IV .Q10H [facility] Rx#: [id number] KVO 130 130 10 Intake, IV Titration 277.992 176.667 Amount Furosemide 100 mg In 100 126.667 Sodium Chloride 0.9% 90 ml @ 10 MG/HR 10 mls/hr IV .Q10H [facility] Rx#: [id number] Levofloxacin 250Mg-D5w 50 Pmx 250 mg In Dextrose/ Water 1 50ml.bag @ 50 mls /hr IVPB Q24H [facility] Rx#: [id number] Norepinephrine 4 mg In 177.992 Sodium Chloride 0.9% 250 ml @ 0.05 MCG/KG/MIN 31. 337 mls/hr IV .Q8H7M [facility] Rx#:[id number] Output: Urine 3535 2555 350 Other: Voiding Method Indwelling Catheter Indwelling Catheter - Labs CBC & Chem 7: 10/27/19 04:53 10/27/19 04:53 Labs: Abnormal Lab Results - Last 24 Hours (Table) 10/26/19 10/26/19 10/26/19 Range/Units 04:56 12:01 17:13 WBC (3.8-10.6) k/uL RBC (3.80-5.40) m/uL Hgb (11.4-16.0) gm/dL Hct (34.0-46.0) % RDW (11.5-15.5) % Plt Count (150-450) k/uL Neutrophils # (Manual) (1.3-7.7) k/uL Lymphocytes # (Manual) (1.0-4.8) k/uL Sodium (137-145) mmol/L BUN (7-17) mg/dL Creatinine (0.52-1.04) mg/dL POC Glucose (mg/dL) 115 H 116 H (75-99) mg/dL Calcium (8.4-10.2) mg/dL Iron 18 L (50-170) ug/dL % Saturation 5.31 L (12.00-45.00) 10/26/19 10/27/19 10/27/19 Range/Units 20:29 04:53 04:53 WBC 2.2 L (3.8-10.6) k/uL RBC 2.42 L (3.80-5.40) m/uL Hgb 7.3 L (11.4-16.0) gm/dL Hct 23.4 L (34.0-46.0) % RDW 15.7 H (11.5-15.5) % Plt Count 94 L (150-450) k/uL Neutrophils # (Manual) 1.20 L (1.3-7.7) k/uL Lymphocytes # (Manual) 0.51 L (1.0-4.8) k/uL Sodium 135 L (137-145) mmol/L BUN 50 H (7-17) mg/dL Creatinine 1.95 H (0.52-1.04) mg/dL POC Glucose (mg/dL) 121 H (75-99) mg/dL Calcium 8.2 L (8.4-10.2) mg/dL Iron (50-170) ug/dL % Saturation (12.00-45.00) Microbiology - Last 24 Hours (Table) 10/25/19 00:45 Urine Culture - Final Urine,Clean Catch Escherichia coli 10/24/19 22:21 Blood Culture - Preliminary Blood No Growth after 48 hours Assessment and Plan Plan: assessment: 1. acute kidney injury secondary to ATN secondary to cardiorenal syndrome. Creatinine 2.28 on admission - 1.95 today. no hydronephrosis noted on kidney ultrasound. Left kidney wasn't visualized. 2. UTI maintained on antibiotics. urine culture positive for E. coli. 3. Hyperkalemia secondary to acute kidney injury, metabolic acidosis and use of spironolactone. resolved. 4. Metabolic acidosis secondary to acute kidney injury maintained on oral sodium bicarb. better. 5. Volume overload. improving with diuresis. 6. Diabetes mellitus. 7. Chronic kidney disease stage III. baseline creatinine in the range of 1- 1.5. Etiology is nephrosclerosis and diabetic kidney disease. 8. Acute on chronic diastolic CHF. 9. Anemia of chronic kidney disease. iron deficiency noted. 10. Hypotension. Cortisol level noted to be low. plan: maintain Lasix drip at 10 mL an hour. Continue to monitor renal function and urine output. Low-salt diet. IV iron 3 doses. First dose today. cosyntropin stimulation test today.
[2019-10-27] MEDS: LIDOCAINE 5% PATCH TOPICAL SCH (09:39)
[2019-10-27] MEDS: ANASTROZOLE 1 MG TAB PO SCH (09:39)
[2019-10-27] MEDS: GABAPENTIN 100 MG CAP PO SCH ×2 (09:39→21:00)
[2019-10-27] MEDS: FOLIC ACID 1 MG TAB PO SCH (09:40)
[2019-10-27] MEDS: THIAMINE 100 MG TAB PO SCH (09:40)
[2019-10-27] MEDS: METOPROLOL TARTRATE 25 MG TAB PO SCH ×2 (09:40→20:59)
[2019-10-27] MEDS: RIFAXIMIN 550 MG TABLET PO SCH ×2 (09:40→21:00)
[2019-10-27] MEDS: SODIUM BICARBONATE TAB 650 MG TAB PO SCH ×3 (09:41→20:59)
[2019-10-27] MEDS: LACTULOSE 20 GM/30 ML CUP PO SCH ×2 (09:41→21:04)
--- NOTE | 2019-10-27 11:04 | P.PN ---
Subjective Progress Note Date: 10/27/19 69-year-old female patient, [facility] resident because of multiple medical problems and comorbidities, was transferred to our hospital as the patient has gained significant amount of weight and order 100 pounds over the past 1 month. Note that the patient was in the hospital on 08/24/2023 and acute GI bleeding where she was having maroon color stool and positive fecal occult bloods. She underwent EGD that showed mild gastritis and there was no evidence of active bleeding. She also has diverticular disease. She was [facility]. She has chronic kidney disease. The patient was found to have an acute kidney injury on top of chronic kidney failure. Her creatinine was up and the patient also had an acute hyperkalemia with a potassium level of 7.1. In the ED, the patient was treated with potassium cocktail where she was given calcium, D50 insulin and bicarb. Potassium level came down to 6.9. The EKG showed some first degree AV block along with right bundle branch block pattern which was present back in July 2019. In any rate, there was concern that the patient was having cardiac toxicity related to hyperkalemia. I saw this patient on the medical floor as transferred this patient to the intensive care unit for further care. The patient was already seen by nephrology and the patient was started on Lasix drip which is currently running a temperature grams an hour. The repeat potassium level is down to 6.7. Serum bicarb is at 17. BNP currently is at 56 with a creatinine of 2.1. 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 Her urine seems to be effective for now as the patient has more than 182 WBCs along with white clumps. The patient was started on Levaquin. She is afebrile. She is hemodynamically stable. She is on room air oxygen with a pulse ox of 98%. Ultrasound of the kidneys was done and the patient was found to have no evidence of hydronephrosis on the right kidney. Left kidney was not visualized. A Granados catheter is also to be inserted. 10/26/2019, the patient is being seen for a follow-up. Overnight the patient to be started on some pressors as the patient was having some lower blood pressures the patient was being diuresed on Lasix drip at the rate of 10 mg an hour. There is adequate urine output for now. Granados catheter in place. The patient continues to be edematous in all 4 extremities. No respiratory difficulties. No cough sputum production chest tightness or wheezing. The patient's overall body discomfort and pain is improved as the patient is diuresing well. Her net fluid balance over the past 24 hours is been in the order of 1.7 and then 1.5 L. Body weight is gradually going down as the patient has lost around 2 kg since yesterday. As for the potassium level, this is also improving and the potassium level is down to 5.1. Serum bicarb is 19. Creatinine is at 2.09 with a mean of 51. Hemoglobin stable at 7.3. Urine cultures still pending and the blood cultures still pending. The patient is covered empirically with IV Levaquin. 10/27/2019, I'm seeing this patient for a follow-up. Doing well. No complaints. Diuresing extensively as the patient has been in a negative fluid balance of 5 L and she has lost about 10 kg. She remains on Lasix drip at 10 mg an hour. Based on serum cortisol was low. Nephrology once ablate cosyntropin stimulation test to rule out the possibility of added insufficiency. She has E. coli in her urine and the patient is covered with Levaquin. No other new complaints for now. No significant pain. No altered mentation. She is feeling better as the patient's overall Body swelling is improving. The BUN is 50 with a creatinine of 1.9. Electrodes are within normal limits. White cell count is at 2.2. He will was stable at 7.3. Objective - Vital Signs Vital signs: Vital Signs Temp 98.3 F 10/27/19 08:00 Pulse 72 10/27/19 10:00 Resp 16 10/27/19 10:00 BP 127/65 10/27/19 10:00 Pulse Ox 95 10/27/19 10:00 Intake & Output 10/26/19 10/27/19 10/27/19 18:59 06:59 18:59 Intake Total 527.992 426.667 60 Output Total 3535 2555 1000 Balance -3007.008 -2128.333 -940 Weight 154.6 kg Intake: IV 250 250 60 Furosemide 100 mg In 120 120 30 Sodium Chloride 0.9% 90 ml @ 10 MG/HR 10 mls/hr IV .Q10H ROS Rx#: [id number] KVO 130 130 30 Intake, IV Titration 277.992 176.667 Amount Furosemide 100 mg In 100 126.667 Sodium Chloride 0.9% 90 ml @ 10 MG/HR 10 mls/hr IV .Q10H ROS Rx#: [id number] Levofloxacin 250Mg-D5w 50 Pmx 250 mg In Dextrose/ Water 1 50ml.bag @ 50 mls /hr IVPB Q24H ROS Rx#: [id number] Norepinephrine 4 mg In 177.992 Sodium Chloride 0.9% 250 ml @ 0.05 MCG/KG/MIN 31. 337 mls/hr IV .Q8H7M ROS Rx#:[id number] Output: Urine 3535 2555 1000 Other: Voiding Method Indwelling Catheter Indwelling Catheter Indwelling Catheter - Exam Morbidly obese, comfortable, not in acute distress Head exam was generally normal. There was no scleral icterus or corneal arcus. Mucous membranes were moist. Neck was supple and without jugular venous distension, thyromegaly, or carotid bruits. Carotids were easily palpable bilaterally. There was no adenopathy. Lungs were clear to auscultation and percussion, and with normal diaphragmatic excursion. No wheezes or rales were noted. Cardiac exam revealed the PMI to be normally situated and sized. The rhythm was regular and no extrasystoles were noted during several minutes of auscultation. The first and second heart sounds were normal and physiologic splitting of the second heart sound was noted. There were no murmurs, rubs, clicks, or gallops. Abdomen is distended. There is some abdominal wall edema. There is no direct tenderness amount tensile guarding at this point in time. Bowel sounds are hypoactive the present. Extremities shows extensive edema in all 4 extremities. There is no cyanosis or clubbing. Examination of the skin revealed no evidence of significant rashes, suspicious appearing nevi or other concerning lesions. Neurologically,Neurologically, the patient is awake and alert and the patient does not have any focal neurological deficit. Cranial nerves are essentially intact. - Labs CBC & Chem 7: 10/27/19 04:53 10/27/19 04:53 Labs: Abnormal Lab Results - Last 24 Hours (Table) 10/26/19 10/26/19 10/26/19 Range/Units 04:56 12:01 17:13 WBC (3.8-10.6) k/uL RBC (3.80-5.40) m/uL Hgb (11.4-16.0) gm/dL Hct (34.0-46.0) % RDW (11.5-15.5) % Plt Count (150-450) k/uL Neutrophils # (Manual) (1.3-7.7) k/uL Lymphocytes # (Manual) (1.0-4.8) k/uL Sodium (137-145) mmol/L BUN (7-17) mg/dL Creatinine (0.52-1.04) mg/dL POC Glucose (mg/dL) 115 H 116 H (75-99) mg/dL Calcium (8.4-10.2) mg/dL Iron 18 L (50-170) ug/dL % Saturation 5.31 L (12.00-45.00) 10/26/19 10/27/19 10/27/19 Range/Units 20:29 04:53 04:53 WBC 2.2 L (3.8-10.6) k/uL RBC 2.42 L (3.80-5.40) m/uL Hgb 7.3 L (11.4-16.0) gm/dL Hct 23.4 L (34.0-46.0) % RDW 15.7 H (11.5-15.5) % Plt Count 94 L (150-450) k/uL Neutrophils # (Manual) 1.20 L (1.3-7.7) k/uL Lymphocytes # (Manual) 0.51 L (1.0-4.8) k/uL Sodium 135 L (137-145) mmol/L BUN 50 H (7-17) mg/dL Creatinine 1.95 H (0.52-1.04) mg/dL POC Glucose (mg/dL) 121 H (75-99) mg/dL Calcium 8.2 L (8.4-10.2) mg/dL Iron (50-170) ug/dL % Saturation (12.00-45.00) Microbiology - Last 24 Hours (Table) 10/25/19 00:45 Urine Culture - Final Urine,Clean Catch Escherichia coli 10/24/19 22:21 Blood Culture - Preliminary Blood No Growth after 48 hours Assessment and Plan Plan: 1 acute kidney injury secondary to ATN, on top of chronic kidney disease. Renal function continues to improve and the patient is being diuresis with IV Lasix . The patient remains in negative fluid balance. The patient has lost significant amount of weight. Body weight is down as the patient is being diuresis. 2 UTI, recurrent with previous infections with multiple microorganisms including VRE, and we are repeating the follow-up urine cultures. The most recent cultures showing E. coli and the patient is currently on Levaquin. 3 acute hyperkalemia with some EKG changes, recovered and the potassium level normalized 4 metabolic acidosis secondary to acute kidney injury, improving 5 massive fluid overload as the patient is up by around 100 pounds in weight and her body mass index is up to 58.5 with extensive edema in all 4 extremities 6 chronic stage III kidney disease with a baseline creatinine ranging between 1- 1.5 7 history of liver cirrhosis with hepatic encephalopathy 8 history of CHF with diastolic dysfunction 9 fibromyalgia 10 hypertension 11 hyperlipidemia 12 rheumatoid arthritis 13 severe disorder 14 history of SVT. 15 diabetic peripheral neuropathy 16 history of breast cancer, right-sided post surgery followed by chemotherapy 17 chronic anxiety depression 18 extensive debility and the patient is penitentiary resident Plan Continue on Lasix drip at 10 mg an hour Monitor the body weight and electrolytes Continue Levaquin We'll continue to follow
[2019-10-27] MEDS: SODIUM FERRIC GLUCONAT-SUCROSE 125 MG in SODIUM CHLORIDE 0.9% 100 ML IVPB SCH (11:09)
--- NOTE | 2019-10-27 11:17 | P.PN ---
Subjective Patient is admitted for volume overload probably secondary to chronic sun dysfunction with acute exacerbation patient the is being treated for cardiorenal syndrome with IV Lasix drip patient's creatinine started improving potassium improved patient feels better 10/27/2019 Patient the labs are improving serum creatinine showed some improvement. She blood pressure went down because of which are cortisol level was obtained which was low because of which patient was is having cosyntropin stimulation test. Patient blood pressure went down yesterday and was briefly on norepinephrine because of IV Lasix and patient had urine output of about 6 L. Constitutional: Patient is tired Cardio vascular: denied any chest pain, palpitations Gastrointestinal denied any nausea vomiting Pulmonary: Does have some shortness of breath Neurologic denied any new focal deficits All inpatient medications were reviewed and appropriate changes in these medicat ions as dictated in the interval history and assessment and plan. Objective - Vital Signs Vital signs: Vital Signs Temp 98.3 F 10/27/19 08:00 Pulse 75 10/27/19 11:00 Resp 16 10/27/19 11:00 BP 144/61 10/27/19 11:00 Pulse Ox 97 10/27/19 11:00 Intake & Output 10/26/19 10/27/19 10/27/19 18:59 06:59 18:59 Intake Total 527.992 426.667 80 Output Total 3535 2555 1350 Balance -3007.008 -2128.333 -1270 Weight 154.6 kg Intake: IV 250 250 80 Furosemide 100 mg In 120 120 40 Sodium Chloride 0.9% 90 ml @ 10 MG/HR 10 mls/hr IV .Q10H ROS Rx#: [id number] KVO 130 130 40 Intake, IV Titration 277.992 176.667 Amount Furosemide 100 mg In 100 126.667 Sodium Chloride 0.9% 90 ml @ 10 MG/HR 10 mls/hr IV .Q10H ROS Rx#: [id number] Levofloxacin 250Mg-D5w 50 Pmx 250 mg In Dextrose/ Water 1 50ml.bag @ 50 mls /hr IVPB Q24H ROS Rx#: [id number] Norepinephrine 4 mg In 177.992 Sodium Chloride 0.9% 250 ml @ 0.05 MCG/KG/MIN 31. 337 mls/hr IV .Q8H7M ROS Rx#:[id number] Output: Urine 3535 2555 1350 Other: Voiding Method Indwelling Catheter Indwelling Catheter Indwelling Catheter - Exam PHYSICAL EXAMINATION: GENERAL: The patient is alert and oriented x3, not in any acute distress. Moderately obese does have some anasarca as well HEENT: Pupils are round and equally reacting to light. EOMI. No scleral icterus. No conjunctival pallor. Normocephalic, atraumatic. No pharyngeal erythema. No thyromegaly. CARDIOVASCULAR: S1 and S2 present. No murmurs, rubs, or gallops. PULMONARY: Chest is clear to auscultation, no wheezing or crackles. ABDOMEN: Soft, nontender, nondistended, normoactive bowel sounds. No palpable organomegaly. MUSCULOSKELETAL: No joint swelling or deformity. EXTREMITIES: No cyanosis, clubbing, or pedal edema. NEUROLOGICAL: Gross neurological examination did not reveal any focal deficits. SKIN: No rashes. - Labs CBC & Chem 7: 10/27/19 04:53 10/27/19 04:53 Labs: Abnormal Lab Results - Last 24 Hours (Table) 10/26/19 10/26/19 10/26/19 Range/Units 04:56 12:01 17:13 WBC (3.8-10.6) k/uL RBC (3.80-5.40) m/uL Hgb (11.4-16.0) gm/dL Hct (34.0-46.0) % RDW (11.5-15.5) % Plt Count (150-450) k/uL Neutrophils # (Manual) (1.3-7.7) k/uL Lymphocytes # (Manual) (1.0-4.8) k/uL Sodium (137-145) mmol/L BUN (7-17) mg/dL Creatinine (0.52-1.04) mg/dL POC Glucose (mg/dL) 115 H 116 H (75-99) mg/dL Calcium (8.4-10.2) mg/dL Iron 18 L (50-170) ug/dL % Saturation 5.31 L (12.00-45.00) 10/26/19 10/27/19 10/27/19 Range/Units 20:29 04:53 04:53 WBC 2.2 L (3.8-10.6) k/uL RBC 2.42 L (3.80-5.40) m/uL Hgb 7.3 L (11.4-16.0) gm/dL Hct 23.4 L (34.0-46.0) % RDW 15.7 H (11.5-15.5) % Plt Count 94 L (150-450) k/uL Neutrophils # (Manual) 1.20 L (1.3-7.7) k/uL Lymphocytes # (Manual) 0.51 L (1.0-4.8) k/uL Sodium 135 L (137-145) mmol/L BUN 50 H (7-17) mg/dL Creatinine 1.95 H (0.52-1.04) mg/dL POC Glucose (mg/dL) 121 H (75-99) mg/dL Calcium 8.2 L (8.4-10.2) mg/dL Iron (50-170) ug/dL % Saturation (12.00-45.00) Microbiology - Last 24 Hours (Table) 10/25/19 00:45 Urine Culture - Final Urine,Clean Catch Escherichia coli 10/24/19 22:21 Blood Culture - Preliminary Blood No Growth after 48 hours Assessment and Plan Plan: -Acute renal failure: Most probably secondary to acute tubular necrosis believed to be secondary to cardiorenal syndrome patient's creatinine is elevated to 2.28 , now around 2 improved baseline was 0.7 and month July patient will be continued on IV Lasix to because patient echocardiogram repeat 1 showed normal ejection fraction) to be severely enlarged right atrium is moderately enlarged with mild pulmonary hypertension. Patient remains on IV Lasix drip a serum cre atinine improved to 1.95 serum sodium improved potassium improved -Patient is being evaluated for a atrial insufficiency with cosyntropin stimulation test -Possibility of UTI which I cannot completely rule out continue with the present antibiotics -Hyperkalemia secondary to acute renal failure and metabolic acidosis secondary to acute renal failure and Aldactone, patient is on low potassium diet and is on Lasix . Potassium improved -Metabolic acidosis secondary to renal failure improved now -Fibromyalgia -Hyperlipidemia -Hypertension -Seizure disorder -History of SVT -Depression For above-mentioned medical problems patient resumed on appropriate home medications -DVT prophylaxis with subcutaneous heparin
[2019-10-27 13:09] LABS: Glucose,Whole Blood 117 mg/dL (75-99)
[2019-10-27] MEDS: HYDROmorphone 0.5 MG/0.5 ML SYRINGE IVP PRN (14:05)
[2019-10-27 16:37] LABS: Glucose,Whole Blood 155 mg/dL (75-99)
[2019-10-27] MEDS: INSULIN DETEMIR (LEVEMIR) 100 UNIT/ML SYR SQ SCH (21:00)
[2019-10-27] MEDS: diphenhydrAMINE 25 MG CAP PO PRN (22:29)
[2019-10-28] MEDS: HEPARIN SODIUM,PORCINE 5,000 UNIT/ML 1 ML VIAL SQ SCH ×3 (00:53→16:50)
[2019-10-28] MEDS: HYDROmorphone 0.5 MG/0.5 ML SYRINGE IVP PRN ×2 (01:54→07:09)
[2019-10-28] MEDS: FUROSEMIDE 100 MG in SODIUM CHLORIDE 0.9% 90 ML IV SCH ×2 (01:54→10:52)
[2019-10-28 05:11] LABS: Calcium 8.7 mg/dL (8.4-10.2)
[2019-10-28 07:15] LABS: Glucose,Whole Blood 98 mg/dL (75-99)
[2019-10-28] MEDS: FOLIC ACID 1 MG TAB PO SCH (09:50)
[2019-10-28] MEDS: ANASTROZOLE 1 MG TAB PO SCH (09:50)
[2019-10-28] MEDS: LIDOCAINE 5% PATCH TOPICAL SCH ×2 (09:53→10:17)
[2019-10-28] MEDS: GABAPENTIN 100 MG CAP PO SCH ×2 (09:53→21:01)
[2019-10-28] MEDS: LEVOFLOXACIN 250 MG TAB PO SCH (09:53)
[2019-10-28] MEDS: RIFAXIMIN 550 MG TABLET PO SCH ×2 (10:04→21:02)
[2019-10-28] MEDS: SODIUM BICARBONATE TAB 650 MG TAB PO SCH (10:04)
[2019-10-28] MEDS: METOPROLOL TARTRATE 25 MG TAB PO SCH ×2 (10:04→21:01)
[2019-10-28] MEDS: SODIUM FERRIC GLUCONAT-SUCROSE 125 MG in SODIUM CHLORIDE 0.9% 100 ML IVPB SCH (10:04)
[2019-10-28] MEDS: LACTULOSE 20 GM/30 ML CUP PO SCH ×2 (10:04→21:02)
[2019-10-28] MEDS: THIAMINE 100 MG TAB PO SCH (10:04)
[2019-10-28 12:04] LABS: Glucose,Whole Blood 111 mg/dL (75-99)
--- NOTE | 2019-10-28 12:25 | P.PN ---
Subjective Progress Note Date: 10/28/19 69-year-old female patient, retirement resident because of multiple medical problems and comorbidities, was transferred to our hospital as the patient has gained significant amount of weight and order 100 pounds over the past 1 month. Note that the patient was in the hospital on 08/24/2023 and acute GI bleeding where she was having maroon color stool and positive fecal occult bloods. She underwent EGD that showed mild gastritis and there was no evidence of active bleeding. She also has diverticular disease. She was transferred back to the retirement. She has chronic kidney disease. The patient was found to have an acute kidney injury on top of chronic kidney failure. Her creatinine was up and the patient also had an acute hyperkalemia with a potassium level of 7.1. In the ED, the patient was treated with potassium cocktail where she was given calcium, D50 insulin and bicarb. Potassium level came down to 6.9. The EKG showed some first degree AV block along with right bundle branch block pattern which was present back in July 2019. In any rate, there was concern that the patient was having cardiac toxicity related to hyperkalemia. I saw this patient on the medical floor as transferred this patient to the intensive care unit for further care. The patient was already seen by nephrology and the patient was started on Lasix drip which is currently running a temperature grams an hour. The repeat potassium level is down to 6.7. Serum bicarb is at 17. BNP currently is at 56 with a creatinine of 2.1. 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 Her urine seems to be effective for now as the patient has more than 182 WBCs along with white clumps. The patient was started on Levaquin. She is afebrile. She is hemodynamically stable. She is on room air oxygen with a pulse ox of 98%. Ultrasound of the kidneys was done and the patient was found to have no evidence of hydronephrosis on the right kidney. Left kidney was not visualized. A Granados catheter is also to be inserted. 10/26/2019, the patient is being seen for a follow-up. Overnight the patient to be started on some pressors as the patient was having some lower blood pressures the patient was being diuresed on Lasix drip at the rate of 10 mg an hour. There is adequate urine output for now. Granados catheter in place. The patient continues to be edematous in all 4 extremities. No respiratory difficulties. No cough sputum production chest tightness or wheezing. The patient's overall body discomfort and pain is improved as the patient is diuresing well. Her net fluid balance over the past 24 hours is been in the order of 1.7 and then 1.5 L. Body weight is gradually going down as the patient has lost around 2 kg since yesterday. As for the potassium level, this is also improving and the potassium level is down to 5.1. Serum bicarb is 19. Creatinine is at 2.09 with a mean of 51. Hemoglobin stable at 7.3. Urine cultures still pending and the blood cultures still pending. The patient is covered empirically with IV Levaquin. 10/27/2019, I'm seeing this patient for a follow-up. Doing well. No complaints. Diuresing extensively as the patient has been in a negative fluid balance of 5 L and she has lost about 10 kg. She remains on Lasix drip at 10 mg an hour. Based on serum cortisol was low. Nephrology once ablate cosyntropin stimulation test to rule out the possibility of added insufficiency. She has E. coli in her urine and the patient is covered with Levaquin. No other new complaints for now. No significant pain. No altered mentation. She is feeling better as the patient's overall Body swelling is improving. The BUN is 50 with a creatinine of 1.9. Electrodes are within normal limits. White cell count is at 2.2. He will was stable at 7.3. 10/28/2019, I'm seeing the patient for a follow-up. The patient is doing well. No specific complaints. She is gradually improving. She is still making significant amount of urine output. The patient has diuresed extensively and she has lost approximately 12 kg of weight and she is in a negative fluid balance of more than 3 L over the past 24 hours. She diuresed around 6.3 L and negative fluid balance over the past 24 hours to she remains on Lasix drip at 10 mg an hour. Despite all this, she is still edematous. Her pulse ox on room is on 92%. She underwent a cosyntropin stimulation test yesterday with turning machine set up operator to be within normal limits and the patient does not show any signs of adrenal insufficiency. No fever. No chills. No cough or sputum production. No altered mentation. No other complaints otherwise for now. We decided to proceed with diuresis for another 24 hours. Objective - Vital Signs Vital signs: Vital Signs Temp 98.1 F 10/28/19 08:00 Pulse 61 10/28/19 08:00 Resp 10 L 10/28/19 08:00 BP 121/64 10/28/19 08:00 Pulse Ox 93 L 10/28/19 08:00 Intake & Output 10/27/19 10/28/19 10/28/19 18:59 06:59 18:59 Intake Total 320 688.5 129.667 Output Total 3500 3855 400 Balance -3180 -3166.5 -270.333 Weight 152.8 kg Intake: IV 220 240 40 Furosemide 100 mg In 110 120 40 Sodium Chloride 0.9% 90 ml @ 10 MG/HR 10 mls/hr IV .Q10H ROS Rx#: [id number] KVO 110 120 Intake, IV Titration 100 48.5 89.667 Amount Furosemide 100 mg In 100 48.5 89.667 Sodium Chloride 0.9% 90 ml @ 10 MG/HR 10 mls/hr IV .Q10H ROS Rx#: [id number] Oral 400 Output: Urine 3500 3855 400 Other: Voiding Method Indwelling Catheter Indwelling Catheter Indwelling Catheter - Exam Morbidly obese, comfortable, not in acute distress Head exam was generally normal. There was no scleral icterus or corneal arcus. Mucous membranes were moist. Neck was supple and without jugular venous distension, thyromegaly, or carotid bruits. Carotids were easily palpable bilaterally. There was no adenopathy. Lungs were clear to auscultation and percussion, and with normal diaphragmatic excursion. No wheezes or rales were noted. Cardiac exam revealed the PMI to be normally situated and sized. The rhythm was regular and no extrasystoles were noted during several minutes of auscultation. The first and second heart sounds were normal and physiologic splitting of the second heart sound was noted. There were no murmurs, rubs, clicks, or gallops. Abdomen is distended. There is some abdominal wall edema. There is no direct tenderness amount tensile guarding at this point in time. Bowel sounds are hypoactive the present. Extremities shows extensive edema in all 4 extremities. There is no cyanosis or clubbing. Overall edema is gradually improving especially in lower extremities. Upper extremities have already improved. Examination of the skin revealed no evidence of significant rashes, suspicious appearing nevi or other concerning lesions. Neurologically,Neurologically, the patient is awake and alert and the patient does not have any focal neurological deficit. Cranial nerves are essentially intact. - Labs CBC & Chem 7: 10/27/19 04:53 10/28/19 04:27 Labs: Abnormal Lab Results - Last 24 Hours (Table) 10/27/19 10/27/19 10/28/19 Range/Units 13:08 16:35 04:27 BUN 50 H (7-17) mg/dL Creatinine 1.80 H (0.52-1.04) mg/dL Glucose 100 H (74-99) mg/dL POC Glucose (mg/dL) 117 H 155 H (75-99) mg/dL 10/28/19 Range/Units 12:02 BUN (7-17) mg/dL Creatinine (0.52-1.04) mg/dL Glucose (74-99) mg/dL POC Glucose (mg/dL) 111 H (75-99) mg/dL Microbiology - Last 24 Hours (Table) 10/24/19 22:21 Blood Culture - Preliminary Blood No Growth after 72 hours 10/25/19 00:45 Urine Culture - Final Urine,Clean Catch Escherichia coli Assessment and Plan Plan: 1 acute kidney injury secondary to ATN, on top of chronic kidney disease. Renal function continues to improve and the patient is being diuresis with IV Lasix . The patient continues to diurese well and the patient's renal function is back to his baseline of creatinine of 1.8. 2 UTI, recurrent with previous infections with multiple microorganisms including VRE, and we are repeating the follow-up urine cultures. The most recent cultures showing E. coli and the patient is currently on Levaquin. 3 acute hyperkalemia with some EKG changes, recovered and the potassium level normalized 4 metabolic acidosis secondary to acute kidney injury, improving 5 massive fluid overload as the patient is up by around 100 pounds in weight and her body mass index is up to 58.5 with extensive edema in all 4 extremities 6 chronic stage III kidney disease with a baseline creatinine ranging between 1- 1.5 7 history of liver cirrhosis with hepatic encephalopathy 8 history of CHF with diastolic dysfunction 9 fibromyalgia 10 hypertension 11 hyperlipidemia 12 rheumatoid arthritis 13 severe disorder 14 history of SVT. 15 diabetic peripheral neuropathy 16 history of breast cancer, right-sided post surgery followed by chemotherapy 17 chronic anxiety depression 18 extensive debility and the patient is retirement resident Plan Continue on Lasix drip at 10 mg an hour Monitor the body weight and electrolytes, the patient's creatinine is at 1.8 and the patient has diuresed more than 6 L over the past 24 hours. The third spacing and edema is essentially improving for now. No major electrodes imbalance. Potassium level is within normal limits. Clinically the patient is improving. Continue Levaquin We'll continue to follow
--- NOTE | 2019-10-28 13:41 | PN ---
PROGRESS NOTE The patient is seen for followup for acute kidney injury and severe volume overload. The patient is currently maintained on Lasix drip. She has good urine output, about 100-200, occasionally 400 mL an hour. A 24 hour urine output of about 7.3 L. Overall, patient states she is feeling better. PHYSICAL EXAMINATION: On examination today, blood pressure is 121/64, heart rate 61 per minute. She is afebrile. Examination of the heart S1, S2. Examination of the lungs, bilateral breath sounds are heard. Abdomen is soft. Morbidly obese. Examination of lower extremities shows edema 3 to 4+ bilaterally. TECHNICAL IMPLEMENTATION LEAD exam grossly intact. LAB: Show sodium 137, potassium 4.0, chloride 105, CO2 is 25, BUN 50, creatinine 1.8. ASSESSMENT: 1. Acute kidney injury mostly cardiorenal, currently somewhat improved, maintained on Lasix drip with improvement in edema. 2. Severe hypervolemia and volume overload, currently improving. 3. Urinary tract infection with E coli, maintained on antibiotics. 4. Metabolic acidosis, currently on oral sodium bicarb. I will discontinue the sodium bicarb as metabolic alkalosis is expected with the ongoing diuresis. 5. Chronic kidney disease stage 3. Baseline creatinine 1-1.5 secondary to nephrosclerosis diabetic kidney disease. 6. Iron deficiency maintained on IV iron. 7. Acute on top of chronic diastolic congestive heart failure. PLAN: Decrease Lasix drip to 5 mg an hour. DC sodium bicarb. Repeat labs in a.m. MMODL / IJN: [id number] /
[2019-10-28 16:47] LABS: Glucose,Whole Blood 119 mg/dL (75-99)
[2019-10-28] MEDS: HYDROcodone/APAP 10-325MG 1 EACH TAB PO PRN ×2 (16:51→21:00)
--- NOTE | 2019-10-28 16:53 | PN ---
PROGRESS NOTE DATE OF SERVICE: 10/28/2019 INTERVAL HISTORY: This is a 69-year-old patient who is an [facility] resident, presented with significant weight gain, close to 100 pounds over the past 1 month. The patient at baseline has elevated creatinine. The patient is put on IV Lasix drip. Lying in bed today, has been eating well. Making good urine output per hour. The patient has chronic pain what she calls generalized. She did ask the nurse for Dilaudid though the pain is chronic. Breathing is stable. Tired. REVIEW OF SYSTEMS: Done for constitutional, cardiovascular, GI, pulmonary; relevant findings as above. CURRENT MEDICATIONS: Reviewed that include Arimidex, IV iron, Lasix drip at 5 mg/hour, Neurontin, Levemir, Levaquin, Lopressor, Xifaxan. INVESTIGATIONS: Potassium 150, creatinine 1.80. ASSESSMENT: 1. Acute kidney injury, mostly cardiorenal/ATN on Lasix drip. Severe hypervolemia from kidney injury on Lasix drip. 2. Acute urinary tract infection with cystitis from E coli. 3. Metabolic acidosis from renal failure. 4. Chronic kidney disease stage 3 with a baseline creatinine from 1-1.5 secondary to nephrosclerosis and diabetic kidney disease. 5. Iron deficiency anemia on iron supplementation. 6. Acute hyperkalemia from renal failure corrected. 7. Liver cirrhosis with hepatic encephalopathy. 8. -chronic congestive heart failure with acute exacerbation from diastolic dysfunction. 9. Fibromyalgia. 10.Essential hypertension. 11.Hyperlipidemia. 12.Rheumatoid arthritis. 13.Diabetic peripheral neuropathy. 14.Morbid obesity, body mass index 54.4. PLAN: Care was discussed with the patient, did explain that IV Dilaudid is not indicated for chronic pain. Patient does take [place] at home, to continue with the same. Will also use Patric wraps to lower extremity. The patient's urine culture has grown E coli. I's and O's will be monitored closely. MMODL / IJN: [id number] /
[2019-10-28 20:38] LABS: Glucose,Whole Blood 137 mg/dL (75-99)
[2019-10-28] MEDS: INSULIN DETEMIR (LEVEMIR) 100 UNIT/ML SYR SQ SCH (21:02)
[2019-10-29] MEDS: HEPARIN SODIUM,PORCINE 5,000 UNIT/ML 1 ML VIAL SQ SCH ×4 (00:08→22:23)
[2019-10-29] MEDS: HYDROcodone/APAP 10-325MG 1 EACH TAB PO PRN ×4 (01:26→21:09)
[2019-10-29] MEDS: diphenhydrAMINE 25 MG CAP PO PRN (01:26)
[2019-10-29] MEDS: FUROSEMIDE 100 MG in SODIUM CHLORIDE 0.9% 90 ML IV SCH ×2 (01:47→22:22)
[2019-10-29 06:57] LABS: Calcium 8.2 mg/dL (8.4-10.2); Potassium 3.9 mmol/L (3.5-5.1)
[2019-10-29 07:08] LABS: Glucose,Whole Blood 121 mg/dL (75-99)
[2019-10-29] MEDS: GABAPENTIN 100 MG CAP PO SCH ×2 (08:05→21:09)
[2019-10-29] MEDS: ANASTROZOLE 1 MG TAB PO SCH (08:05)
[2019-10-29] MEDS: FOLIC ACID 1 MG TAB PO SCH (08:05)
[2019-10-29] MEDS: LEVOFLOXACIN 250 MG TAB PO SCH (08:06)
[2019-10-29] MEDS: RIFAXIMIN 550 MG TABLET PO SCH ×2 (08:06→22:22)
[2019-10-29] MEDS: METOPROLOL TARTRATE 25 MG TAB PO SCH ×2 (08:06→21:09)
[2019-10-29] MEDS: LACTULOSE 20 GM/30 ML CUP PO SCH ×2 (08:06→21:09)
[2019-10-29] MEDS: THIAMINE 100 MG TAB PO SCH (08:06)
[2019-10-29] MEDS: SODIUM FERRIC GLUCONAT-SUCROSE 125 MG in SODIUM CHLORIDE 0.9% 100 ML IVPB SCH (11:53)
--- NOTE | 2019-10-29 11:58 | P.PN ---
Subjective Progress Note Date: 10/29/19 69-year-old female patient, assisted resident because of multiple medical problems and comorbidities, was transferred to our hospital as the patient has gained significant amount of weight and order 100 pounds over the past 1 month. Note that the patient was in the hospital on 08/24/2023 and acute GI bleeding where she was having maroon color stool and positive fecal occult bloods. She underwent EGD that showed mild gastritis and there was no evidence of active bleeding. She also has diverticular disease. She was transferred back to the assisted. She has chronic kidney disease. The patient was found to have an acute kidney injury on top of chronic kidney failure. Her creatinine was up and the patient also had an acute hyperkalemia with a potassium level of 7.1. In the ED, the patient was treated with potassium cocktail where she was given calcium, D50 insulin and bicarb. Potassium level came down to 6.9. The EKG showed some first degree AV block along with right bundle branch block pattern which was present back in July 2019. In any rate, there was concern that the patient was having cardiac toxicity related to hyperkalemia. I saw this patient on the medical floor as transferred this patient to the intensive care unit for further care. The patient was already seen by nephrology and the patient was started on Lasix drip which is currently running a temperature grams an hour. The repeat potassium level is down to 6.7. Serum bicarb is at 17. BNP currently is at 56 with a creatinine of 2.1. 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 Her urine seems to be effective for now as the patient has more than 182 WBCs along with white clumps. The patient was started on Levaquin. She is afebrile. She is hemodynamically stable. She is on room air oxygen with a pulse ox of 98%. Ultrasound of the kidneys was done and the patient was found to have no evidence of hydronephrosis on the right kidney. Left kidney was not visualized. A Granados catheter is also to be inserted. 10/26/2019, the patient is being seen for a follow-up. Overnight the patient to be started on some pressors as the patient was having some lower blood pressures the patient was being diuresed on Lasix drip at the rate of 10 mg an hour. There is adequate urine output for now. Granados catheter in place. The patient continues to be edematous in all 4 extremities. No respiratory difficulties. No cough sputum production chest tightness or wheezing. The patient's overall body discomfort and pain is improved as the patient is diuresing well. Her net fluid balance over the past 24 hours is been in the order of 1.7 and then 1.5 L. Body weight is gradually going down as the patient has lost around 2 kg since yesterday. As for the potassium level, this is also improving and the potassium level is down to 5.1. Serum bicarb is 19. Creatinine is at 2.09 with a mean of 51. Hemoglobin stable at 7.3. Urine cultures still pending and the blood cultures still pending. The patient is covered empirically with IV Levaquin. 10/27/2019, I'm seeing this patient for a follow-up. Doing well. No complaints. Diuresing extensively as the patient has been in a negative fluid balance of 5 L and she has lost about 10 kg. She remains on Lasix drip at 10 mg an hour. Based on serum cortisol was low. Nephrology once ablate cosyntropin stimulation test to rule out the possibility of added insufficiency. She has E. coli in her urine and the patient is covered with Levaquin. No other new complaints for now. No significant pain. No altered mentation. She is feeling better as the patient's overall Body swelling is improving. The BUN is 50 with a creatinine of 1.9. Electrodes are within normal limits. White cell count is at 2.2. He will was stable at 7.3. 10/28/2019, I'm seeing the patient for a follow-up. The patient is doing well. No specific complaints. She is gradually improving. She is still making significant amount of urine output. The patient has diuresed extensively and she has lost approximately 12 kg of weight and she is in a negative fluid balance of more than 3 L over the past 24 hours. She diuresed around 6.3 L and negative fluid balance over the past 24 hours to she remains on Lasix drip at 10 mg an hour. Despite all this, she is still edematous. Her pulse ox on room is on 92%. She underwent a cosyntropin stimulation test yesterday with cuff turner machine operator to be within normal limits and the patient does not show any signs of adrenal insufficiency. No fever. No chills. No cough or sputum production. No altered mentation. No other complaints otherwise for now. We decided to proceed with diuresis for another 24 hours. 10/29/2019, the patient continued to diurese aggressively. The patient was dropped down to 5 g an hour of Lasix drip. The patient is a negative fluid balance of 3.1 L over the past 24 hours. Her weight continues to go down progressively. He on room air oxygen. She is sitting up in her back and she is doing some lorraine . Denies having any respiratory difficulties. No fever or c hills. No electrolytes imbalance. Potassium level is at 3.9. BUN is at 52 with a creatinine of 1.8 which is comparable compared to yesterday. Objective - Vital Signs Vital signs: Vital Signs Temp 97.6 F 10/29/19 08:00 Pulse 63 10/29/19 08:00 Resp 9 L 10/29/19 08:00 BP 112/54 10/29/19 08:00 Pulse Ox 96 10/29/19 08:00 Intake & Output 10/28/19 10/29/19 10/29/19 18:59 06:59 18:59 Intake Total 249.667 274.583 40 Output Total 1900 1725 150 Balance -1650.333 -1450.417 -110 Weight 150.2 kg Intake: IV 160 200 40 Furosemide 100 mg In 80 80 20 Sodium Chloride 0.9% 90 ml @ 5 MG/HR 5 mls/hr IV .Q20H ROS Rx#:[id number] KVO 80 120 20 Intake, IV Titration 89.667 74.583 Amount Furosemide 100 mg In 89.667 74.583 Sodium Chloride 0.9% 90 ml @ 5 MG/HR 5 mls/hr IV .Q20H ROS Rx#:[id number] Output: Urine 1900 1725 150 Other: Voiding Method Indwelling Catheter Indwelling Catheter Indwelling Catheter - Exam Morbidly obese, comfortable, not in acute distress Head exam was generally normal. There was no scleral icterus or corneal arcus. Mucous membranes were moist. Neck was supple and without jugular venous distension, thyromegaly, or carotid bruits. Carotids were easily palpable bilaterally. There was no adenopathy. Lungs were clear to auscultation and percussion, and with normal diaphragmatic excursion. No wheezes or rales were noted. Cardiac exam revealed the PMI to be normally situated and sized. The rhythm was regular and no extrasystoles were noted during several minutes of auscultation. The first and second heart sounds were normal and physiologic splitting of the second heart sound was noted. There were no murmurs, rubs, clicks, or gallops. Abdomen is distended. There is some abdominal wall edema. There is no direct tenderness amount tensile guarding at this point in time. Bowel sounds are hypoactive the present. Extremities shows extensive edema in all 4 extremities. There is no cyanosis or clubbing. Overall edema is gradually improving especially in lower extremities. Upper extremities have already improved. Examination of the skin revealed no evidence of significant rashes, suspicious appearing nevi or other concerning lesions. Neurologically,Neurologically, the patient is awake and alert and the patient does not have any focal neurological deficit. Cranial nerves are essentially intact. - Labs CBC & Chem 7: 10/27/19 04:53 10/29/19 06:20 Labs: Abnormal Lab Results - Last 24 Hours (Table) 10/28/19 10/28/19 10/28/19 Range/Units 12:02 16:46 20:36 BUN (7-17) mg/dL Creatinine (0.52-1.04) mg/dL Glucose (74-99) mg/dL POC Glucose (mg/dL) 111 H 119 H 137 H (75-99) mg/dL Calcium (8.4-10.2) mg/dL 10/29/19 10/29/19 Range/Units 06:20 07:06 BUN 52 H (7-17) mg/dL Creatinine 1.87 H (0.52-1.04) mg/dL Glucose 115 H (74-99) mg/dL POC Glucose (mg/dL) 121 H (75-99) mg/dL Calcium 8.2 L (8.4-10.2) mg/dL Microbiology - Last 24 Hours (Table) 10/24/19 22:21 Blood Culture - Preliminary Blood No Growth after 96 hours Assessment and Plan Plan: 1 acute kidney injury secondary to ATN, on top of chronic kidney disease. The renal function improved inspect his baseline. The patient is being diuresis with Lasix drip at 5 mg an hour as the patient has significant fluid overload. She remains in a negative fluid balance with improvement in lower extremity edema. 2 UTI, recurrent with previous infections with multiple microorganisms including VRE, and we are repeating the follow-up urine cultures. The most recent cultures showing E. coli and the patient is currently on Levaquin. 3 acute hyperkalemia with some EKG changes, recovered and the potassium level normalized 4 metabolic acidosis secondary to acute kidney injury, improving 5 massive fluid overload as the patient is up by around 100 pounds in weight and her body mass index is up to 58.5 with extensive edema in all 4 extremities 6 chronic stage III kidney disease with a baseline creatinine ranging between 1- 1.5 7 history of liver cirrhosis with hepatic encephalopathy 8 history of CHF with diastolic dysfunction 9 fibromyalgia 10 hypertension 11 hyperlipidemia 12 rheumatoid arthritis 13 severe disorder 14 history of SVT. 15 diabetic peripheral neuropathy 16 history of breast cancer, right-sided post surgery followed by chemotherapy 17 chronic anxiety depression 18 extensive debility and the patient is assisted resident Plan Continue on Lasix drip at 5 mg an hour Monitor the body weight and electrolytes, clinically she continues to improve. However, she has considerable amount of fluid overload and edema in still in the lower extremities. Continue Levaquin We'll continue to follow , she can be transferred to a medical surgical floor today
--- NOTE | 2019-10-29 14:25 | P.PN ---
Subjective Patient is admitted for volume overload probably secondary to chronic sun dysfunction with acute exacerbation patient the is being treated for cardiorenal syndrome with IV Lasix drip patient's creatinine started improving potassium improved patient feels better 10/27/2019 Patient the labs are improving serum creatinine showed some improvement. She blood pressure went down because of which are cortisol level was obtained which was low because of which patient was is having cosyntropin stimulation test. Patient blood pressure went down yesterday and was briefly on norepinephrine because of IV Lasix and patient had urine output of about 6 L. 10/29/2019 Patient's serum creatinine is around 1.8 bit worse compared to yesterday still negative so diuresis still has significant anasarca respiratory status is fairly well presently on room air. Constitutional: Patient is tired Cardio vascular: denied any chest pain, palpitations Gastrointestinal denied any nausea vomiting Pulmonary: Shortness of breath improved Neurologic denied any new focal deficits All inpatient medications were reviewed and appropriate changes in these medications as dictated in the interval history and assessment and plan. Objective - Vital Signs Vital signs: Vital Signs Temp 97.6 F 10/29/19 08:00 Pulse 63 10/29/19 08:00 Resp 9 L 10/29/19 08:00 BP 112/54 10/29/19 08:00 Pulse Ox 96 10/29/19 08:00 Intake & Output 10/28/19 10/29/19 10/29/19 18:59 06:59 18:59 Intake Total 249.667 274.583 40 Output Total 1900 1725 150 Balance -1650.333 -1450.417 -110 Weight 150.2 kg Intake: IV 160 200 40 Furosemide 100 mg In 80 80 20 Sodium Chloride 0.9% 90 ml @ 5 MG/HR 5 mls/hr IV .Q20H ROS Rx#:[id number] KVO 80 120 20 Intake, IV Titration 89.667 74.583 Amount Furosemide 100 mg In 89.667 74.583 Sodium Chloride 0.9% 90 ml @ 5 MG/HR 5 mls/hr IV .Q20H ROS Rx#:[id number] Output: Urine 1900 1725 150 Other: Voiding Method Indwelling Catheter Indwelling Catheter Indwelling Catheter - Exam PHYSICAL EXAMINATION: GENERAL: The patient is alert and oriented x3, not in any acute distress. Moderately obese does have some anasarca as well HEENT: Pupils are round and equally reacting to light. EOMI. No scleral icterus. No conjunctival pallor. Normocephalic, atraumatic. No pharyngeal erythema. No thyromegaly. CARDIOVASCULAR: S1 and S2 present. No murmurs, rubs, or gallops. PULMONARY: Chest is clear to auscultation, no wheezing or crackles. ABDOMEN: Soft, nontender, nondistended, normoactive bowel sounds. No palpable organomegaly. MUSCULOSKELETAL: No joint swelling or deformity. EXTREMITIES: No cyanosis, clubbing, or pedal edema. NEUROLOGICAL: Gross neurological examination did not reveal any focal deficits. SKIN: No rashes. - Labs CBC & Chem 7: 10/27/19 04:53 10/29/19 06:20 Labs: Abnormal Lab Results - Last 24 Hours (Table) 10/28/19 10/28/19 10/29/19 Range/Units 16:46 20:36 06:20 BUN 52 H (7-17) mg/dL Creatinine 1.87 H (0.52-1.04) mg/dL Glucose 115 H (74-99) mg/dL POC Glucose (mg/dL) 119 H 137 H (75-99) mg/dL Calcium 8.2 L (8.4-10.2) mg/dL 10/29/19 Range/Units 07:06 BUN (7-17) mg/dL Creatinine (0.52-1.04) mg/dL Glucose (74-99) mg/dL POC Glucose (mg/dL) 121 H (75-99) mg/dL Calcium (8.4-10.2) mg/dL Microbiology - Last 24 Hours (Table) 10/24/19 22:21 Blood Culture - Preliminary Blood No Growth after 96 hours Assessment and Plan Plan: -Acute renal failure: Most probably secondary to acute tubular necrosis believed to be secondary to cardiorenal syndrome patient's creatinine is elevated to 2.28 , now around 2 improved baseline was 0.7 and month July patient will be ana nued on IV Lasix to because patient echocardiogram repeat 1 showed normal ejection fraction) to be severely enlarged right atrium is moderately enlarged with mild pulmonary hypertension. Patient remains on IV Lasix drip a serum creatinine improved to 1.8 serum sodium improved potassium improved -Possibility of UTI which I cannot completely rule out continue with the present antibiotics patient is presently on levofloxacin patient has past history E. coli. These antibiotics can be discontinued tomorrow patient will be completing 5 day therapy -Hyperkalemia secondary to acute renal failure and metabolic acidosis secondary to acute renal failure and Aldactone, patient is on low potassium diet and is on Lasix . Potassium improved -Metabolic acidosis secondary to renal failure improved now, patient is on oral bicarbonate supplementation -Fibromyalgia -Hyperlipidemia -Hypertension -Seizure disorder -History of SVT -Depression For above-mentioned medical problems patient resumed on appropriate home medications -DVT prophylaxis with subcutaneous heparin
[2019-10-29 16:55] LABS: Glucose,Whole Blood 116 mg/dL (75-99)
--- NOTE | 2019-10-29 17:07 | PN ---
PROGRESS NOTE Patient is seen for followup for acute kidney injury and volume overload. She is currently maintained on Lasix drip. Patient has had good diuresis. Lasix drip was decreased to 5 mg/hour yesterday. Urine output for 24 hours was 7.3 L. Weight is down significantly. On physical examination today, patient is comfortable. She is complaining of abdominal pain. Blood pressure this morning was 112/54, heart rate 63 per minute. She is afebrile. EXAMINATION OF THE HEART: S1 and S2. EXAMINATION OF LUNGS: Bilateral breath sounds are heard. ABDOMEN: Soft, non-tender and obese. Examination of lower extremities edema 3 to 4+ bilaterally. INFORMATION TECHNOLOGY SECURITY ANALYST exam is grossly intact. Labs show sodium 137, potassium 3.9, BUN 52, serum creatinine 1.87. Calcium is 8.2. ASSESSMENT: 1. Acute kidney injury, mostly cardiorenal. Renal function stable. Serum creatinine staying at about 1.8 mg/dL. 2. Severe hyperkalemia and volume overload, maintained on Lasix drip. 3. Urinary tract infection with Escherichia coli, currently on antibiotics. 4. Metabolic acidosis, status post bicarb drip. Sodium bicarb was discontinued yesterday. 5. Chronic kidney disease, stage 3. Baseline creatinine 1 to 1.5 mg/dL secondary to nephrosclerosis and diabetic kidney disease. 6. Iron deficiency, status post IV iron. 7. Acute on top of chronic diastolic congestive heart failure. PLAN: Continue with the Lasix drip. Continue off of sodium bicarb. Repeat labs in a.m. Can switch to IV push Lasix tomorrow. MMODL / IJN: [id number] /
[2019-10-29] MEDS: FERROUS SULFATE 325 MG TAB PO SCH (17:26)
[2019-10-29 20:32] LABS: Glucose,Whole Blood 124 mg/dL (75-99)
[2019-10-29] MEDS: INSULIN DETEMIR (LEVEMIR) 100 UNIT/ML SYR SQ SCH (21:10)
[2019-10-30] MEDS: diphenhydrAMINE 25 MG CAP PO PRN ×3 (01:25→17:15)
[2019-10-30] MEDS: HYDROcodone/APAP 10-325MG 1 EACH TAB PO PRN ×4 (01:25→20:20)
[2019-10-30 06:06] LABS: Glucose,Whole Blood 102 mg/dL (75-99)
[2019-10-30 07:56] LABS: Calcium 8.4 mg/dL (8.4-10.2); Potassium 3.8 mmol/L (3.5-5.1)
[2019-10-30] MEDS: FOLIC ACID 1 MG TAB PO SCH (09:52)
[2019-10-30] MEDS: ANASTROZOLE 1 MG TAB PO SCH (09:52)
[2019-10-30] MEDS: LACTULOSE 20 GM/30 ML CUP PO SCH ×2 (09:52→20:21)
[2019-10-30] MEDS: HEPARIN SODIUM,PORCINE 5,000 UNIT/ML 1 ML VIAL SQ SCH ×3 (09:52→23:29)
[2019-10-30] MEDS: GABAPENTIN 100 MG CAP PO SCH ×2 (09:52→20:20)
[2019-10-30] MEDS: THIAMINE 100 MG TAB PO SCH (09:52)
[2019-10-30] MEDS: METOPROLOL TARTRATE 25 MG TAB PO SCH ×2 (09:52→20:20)
[2019-10-30] MEDS: RIFAXIMIN 550 MG TABLET PO SCH ×2 (09:52→20:21)
[2019-10-30] MEDS: LEVOFLOXACIN 250 MG TAB PO SCH (09:53)
[2019-10-30] MEDS: SODIUM FERRIC GLUCONAT-SUCROSE 125 MG in SODIUM CHLORIDE 0.9% 100 ML IVPB SCH (09:58)
--- NOTE | 2019-10-30 10:22 | P.PN ---
Subjective Patient is admitted for volume overload probably secondary to chronic sun dysfunction with acute exacerbation patient the is being treated for cardiorenal syndrome with IV Lasix drip patient's creatinine started improving potassium improved patient feels better 10/27/2019 Patient the labs are improving serum creatinine showed some improvement. She blood pressure went down because of which are cortisol level was obtained which was low because of which patient was is having cosyntropin stimulation test. Patient blood pressure went down yesterday and was briefly on norepinephrine because of IV Lasix and patient had urine output of about 6 L. 10/29/2019 Patient's serum creatinine is around 1.8 bit worse compared to yesterday still negative so diuresis still has significant anasarca respiratory status is fairly well presently on room air. 08/29/2019 Patient's edema and anasarca did improve significantly patient remains on the 5 mg per hour of Lasix. Her creatinine remains stable. Patient is comparing of bilateral calf pain. Because of which I'm obtaining a Doppler of lower extremities. Patient is on subcutaneous heparin for DVT prophylaxis Constitutional: Patient is tired Cardio vascular: denied any chest pain, palpitations Gastrointestinal denied any nausea vomiting Pulmonary: Shortness of breath improved Neurologic denied any new focal deficits All inpatient medications were reviewed and appropriate changes in these medications as dictated in the interval history and assessment and plan. Objective - Vital Signs Vital signs: Vital Signs Temp 98 F 10/30/19 09:00 Pulse 71 10/30/19 08:45 Resp 16 10/30/19 08:45 BP 102/60 10/30/19 08:45 Pulse Ox 95 10/30/19 08:45 Intake & Output 10/29/19 10/30/19 10/30/19 18:59 06:59 18:59 Intake Total 40 100 Output Total 150 2200 Balance -110 -2100 Weight 151.5 kg Intake: IV 40 Furosemide 100 mg In 20 Sodium Chloride 0.9% 90 ml @ 5 MG/HR 5 mls/hr IV .Q20H ROS Rx#:[id number] KVO 20 Intake, IV Titration 100 Amount Furosemide 100 mg In 100 Sodium Chloride 0.9% 90 ml @ 5 MG/HR 5 mls/hr IV .Q20H ROS Rx#:[id number] Output: Urine 150 2200 Other: Voiding Method Indwelling Catheter Indwelling Catheter - Exam PHYSICAL EXAMINATION: GENERAL: The patient is alert and oriented x3, not in any acute distress. Moderately obese anasarca improved significantly HEENT: Pupils are round and equally reacting to light. EOMI. No scleral icterus. No conjunctival pallor. Normocephalic, atraumatic. No pharyngeal erythema. No thyromegaly. CARDIOVASCULAR: S1 and S2 present. No murmurs, rubs, or gallops. PULMONARY: Chest is clear to auscultation, no wheezing or crackles. ABDOMEN: Soft, nontender, nondistended, normoactive bowel sounds. No palpable organomegaly. MUSCULOSKELETAL: No joint swelling or deformity. EXTREMITIES: No cyanosis, clubbing, edema improved significantly NEUROLOGICAL: Gross neurological examination did not reveal any focal deficits. SKIN: No rashes. - Labs CBC & Chem 7: 10/27/19 04:53 10/30/19 07:02 Labs: Abnormal Lab Results - Last 24 Hours (Table) 10/29/19 10/29/19 10/30/19 Range/Units 16:54 20:30 05:58 BUN (7-17) mg/dL Creatinine (0.52-1.04) mg/dL POC Glucose (mg/dL) 116 H 124 H 102 H (75-99) mg/dL 10/30/19 Range/Units 07:02 BUN 53 H (7-17) mg/dL Creatinine 1.83 H (0.52-1.04) mg/dL POC Glucose (mg/dL) (75-99) mg/dL Microbiology - Last 24 Hours (Table) 10/24/19 22:21 Blood Culture - Preliminary Blood No Growth after 120 hours Assessment and Plan Plan: -Acute renal failure: Most probably secondary to acute tubular necrosis believed to be secondary to cardiorenal syndrome patient's creatinine is elevated to 2.28 , now around 2 improved baseline was 0.7 and month July patient will be continued on IV Lasix to because patient echocardiogram repeat 1 showed normal ejection fraction) to be severely enlarged right atrium is moderately enlarged with mild pulmonary hypertension. Patient remains on IV Lasix drip a serum creatinine improved to 1.8 serum sodium improved potassium improved -Possibility of UTI which I cannot completely rule out continue with the present antibiotics patient is presently on levofloxacin patient has past history E. coli. Patient received more than 5 days of antibiotics and medics were discontinued -Hyperkalemia secondary to acute renal failure and metabolic acidosis secondary to acute renal failure and Aldactone, patient is on low potassium diet and is on Lasix . Potassium improved -Metabolic acidosis secondary to renal failure improved now, patient was on oral bicarbonate supplementation is being discontinued at this time -Fibromyalgia -Hyperlipidemia -Hypertension -Seizure disorder -History of SVT -Depression For above-mentioned medical problems patient resumed on appropriate home medications -DVT prophylaxis with subcutaneous heparin
--- NOTE | 2019-10-30 10:42 | US ---
EXAMINATION TYPE: US venous doppler duplex LE DATE OF EXAM: 10/30/2019 10:31 AM COMPARISON: US 2019 CLINICAL HISTORY: r/o DVT. Bilateral leg pain and swelling SIDE PERFORMED: Bilateral TECHNIQUE: The lower extremity deep venous system is examined utilizing real time linear array sonog rubio with graded compression, doppler sonography and color-flow sonography. VESSELS IMAGED: External Iliac Vein (EIV) Common Femoral Vein Deep Femoral Vein Greater Saphenous Vein * Femoral Vein Popliteal Vein Small Saphenous Vein * Proximal Calf Veins (* superficial vessels) Extremely difficult and limited study due to morbidly obese patient Right Leg: Visualized portions appear negative for DVT, limited visualization of mid and distal femo ral vein, and popliteal vein and proximal calf veins not evaluated due to patient unable to tolerate probe pressure Left Leg: Visualized portions appear negative for DVT, limited visualization of mid and distal femor al vein, and popliteal vein and proximal calf veins not evaluated due to patient unable to tolerate p robe pressure IMPRESSION 1. Limited assessment as discussed above. Visualized portions demonstrate no diagnostic evidence of D VT. However, note that the exam is limited.
[2019-10-30 11:47] LABS: Glucose,Whole Blood 141 mg/dL (75-99)
--- NOTE | 2019-10-30 12:23 | P.PN ---
Subjective Progress Note Date: 10/30/19 Principal diagnosis: Acute kidney injury secondary to ATN, hyperkalemia 69-year-old female patient, correction resident because of multiple medical problems and comorbidities, was transferred to our hospital as the patient has gained significant amount of weight and order 100 pounds over the past 1 month. Note that the patient was in the hospital on 08/24/2023 and acute GI bleeding where she was having maroon color stool and positive fecal occult bloods. She underwent EGD that showed mild gastritis and there was no evidence of active bleeding. She also has diverticular disease. She was transferred back to the correction. She has chronic kidney disease. The patient was found to have an acute kidney injury on top of chronic kidney failure. Her creatinine was up and the patient also had an acute hyperkalemia with a potassium level of 7.1. In the ED, the patient was treated with potassium cocktail where she was given calcium, D50 insulin and bicarb. Potassium level came down to 6.9. The EKG showed some first degree AV block along with right bundle branch block pattern which was present back in July 2019. In any rate, there was concern that the patient was having cardiac toxicity related to hyperkalemia. I saw this patient on the medical floor as transferred this patient to the intensive care unit for further care. The patient was already seen by nephrology and the patient was started on Lasix drip which is currently running a temperature grams an hour. The repeat potassium level is down to 6.7. Serum bicarb is at 17. BNP currently is at 56 with a creatinine of 2.1. 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 Her urine seems to be effective for now as the patient has more than 182 WBCs along with white clumps. The patient was started on Levaquin. She is afebrile. She is hemodynamically stable. She is on room air oxygen with a pulse ox of 98%. Ultrasound of the kidneys was done and the patient was found to have no evidence of hydronephrosis on the right kidney. Left kidney was not visualized. A Granados catheter is also to be inserted. 10/26/2019, the patient is being seen for a follow-up. Overnight the patient to be started on some pressors as the patient was having some lower blood pressures the patient was being diuresed on Lasix drip at the rate of 10 mg an hour. There is adequate urine output for now. Granados catheter in place. The patient continues to be edematous in all 4 extremities. No respiratory difficulties. No cough sputum production chest tightness or wheezing. The patient's overall body discomfort and pain is improved as the patient is diuresing well. Her net fluid balance over the past 24 hours is been in the order of 1.7 and then 1.5 L. Body weight is gradually going down as the patient has lost around 2 kg since yesterday. As for the potassium level, this is also improving and the potassium level is down to 5.1. Serum bicarb is 19. Creatinine is at 2.09 with a mean of 51. Hemoglobin stable at 7.3. Urine cultures still pending and the blood cultures still pending. The patient is covered empirically with IV Levaquin. 10/27/2019, I'm seeing this patient for a follow-up. Doing well. No complaints. Diuresing extensively as the patient has been in a negative fluid balance of 5 L and she has lost about 10 kg. She remains on Lasix drip at 10 mg an hour. Based on serum cortisol was low. Nephrology once ablate cosyntropin stimulation test to rule out the possibility of added insufficiency. She has E. coli in her urine and the patient is covered with Levaquin. No other new complaints for now. No significant pain. No altered mentation. She is feeling better as the patient's overall Body swelling is improving. The BUN is 50 with a creatinine of 1.9. Electrodes are within normal limits. White cell count is at 2.2. He will was stable at 7.3. 10/28/2019, I'm seeing the patient for a follow-up. The patient is doing well. No specific complaints. She is gradually improving. She is still making significant amount of urine output. The patient has diuresed extensively and she has lost approximately 12 kg of weight and she is in a negative fluid balance of more than 3 L over the past 24 hours. She diuresed around 6.3 L and negative fluid balance over the past 24 hours to she remains on Lasix drip at 10 mg an hour. Despite all this, she is still edematous. Her pulse ox on room is on 92%. She underwent a cosyntropin stimulation test yesterday with turning lathe tender to be within normal limits and the patient does not show any signs of adrenal insufficiency. No fever. No chills. No cough or sputum production. No altered mentation. No other complaints otherwise for now. We decided to proceed with diuresis for another 24 hours. 10/29/2019, the patient continued to diurese aggressively. The patient was dropped down to 5 g an hour of Lasix drip. The patient is a negative fluid balance of 3.1 L over the past 24 hours. Her weight continues to go down progressively. He on room air oxygen. She is sitting up in her back and she is doing some lorraine . Denies having any respiratory difficulties. No fever or chills. No electrolytes imbalance. Potassium level is at 3.9. BUN is at 52 with a creatinine of 1.8 which is comparable compared to yesterday. The patient is seen today 10/30/2019 in follow-up on the selective care unit. She is currently resting comfortably in bed. Maintaining O2 saturation in the mid 90s on room air. She's been afebrile. Hemodynamically stable. Urine culture positive for E. coli. Blood cultures reveal no growth. Sodium 138. Potassium 3.8. Creatinine 1.83. Currently on Lasix 40 mg IV every 8 hours. She remains in a negative balance. Antibiotics in the form of Levaquin. Objective - Vital Signs Vital signs: Vital Signs Temp 97.3 F L 10/30/19 11:35 Pulse 94 10/30/19 11:35 Resp 18 10/30/19 11:35 BP 106/57 10/30/19 11:35 Pulse Ox 94 L 10/30/19 11:35 Intake & Output 10/29/19 10/30/19 10/30/19 18:59 06:59 18:59 Intake Total 40 100 Output Total 150 2200 Balance -110 -2100 Weight 151.5 kg Intake: IV 40 Furosemide 100 mg In 20 Sodium Chloride 0.9% 90 ml @ 5 MG/HR 5 mls/hr IV .Q20H ROS Rx#:[id number] KVO 20 Intake, IV Titration 100 Amount Furosemide 100 mg In 100 Sodium Chloride 0.9% 90 ml @ 5 MG/HR 5 mls/hr IV .Q20H ROS Rx#:[id number] Output: Urine 150 2200 Other: Voiding Method Indwelling Catheter Indwelling Catheter - Exam Alert pleasant 69 year old female patient, morbidly obese, comfortable, not in acute distress, on room air Head exam was generally normal. There was no scleral icterus or corneal arcus. Mucous membranes were moist. Neck was supple and without jugular venous distension, thyromegaly, or carotid bruits. Carotids were easily palpable bilaterally. There was no adenopathy. Lungs were clear to auscultation and percussion, and with normal diaphragmatic excursion. No wheezes or rales were noted. Cardiac exam revealed the PMI to be normally situated and sized. The rhythm was regular and no extrasystoles were noted during several minutes of auscultation. The first and second heart sounds were normal and physiologic splitting of the second heart sound was noted. There were no murmurs, rubs, clicks, or gallops. Abdomen is distended. There is some abdominal wall edema. There is no direct tenderness amount tensile guarding at this point in time. Bowel sounds are hypoactive the present. Extremities shows extensive edema in all 4 extremities. There is no cyanosis or clubbing. Overall edema is gradually improving especially in lower extremities. Upper extremities have already improved. Examination of the skin revealed no evidence of significant rashes, suspicious appearing nevi or other concerning lesions. Neurologically,Neurologically, the patient is awake and alert and the patient does not have any focal neurological deficit. Cranial nerves are essentially intact. - Labs CBC & Chem 7: 10/27/19 04:53 10/30/19 07:02 Labs: Abnormal Lab Results - Last 24 Hours (Table) 10/29/19 10/29/19 10/30/19 Range/Units 16:54 20:30 05:58 BUN (7-17) mg/dL Creatinine (0.52-1.04) mg/dL POC Glucose (mg/dL) 116 H 124 H 102 H (75-99) mg/dL 10/30/19 10/30/19 Range/Units 07:02 11:45 BUN 53 H (7-17) mg/dL Creatinine 1.83 H (0.52-1.04) mg/dL POC Glucose (mg/dL) 141 H (75-99) mg/dL Microbiology - Last 24 Hours (Table) 10/24/19 22:21 Blood Culture - Preliminary Blood No Growth after 120 hours Assessment and Plan Assessment: 1 acute kidney injury secondary to ATN, on top of chronic kidney disease. The renal function improved inspect his baseline. The patient is being diuresis with Lasix drip at 5 mg an hour as the patient has significant fluid overload. She remains in a negative fluid balance with improvement in lower extremity edema. 2 UTI, recurrent with previous infections with multiple microorganisms including VRE, and we are repeating the follow-up urine cultures. The most recent cultures showing E. coli and the patient is currently on Levaquin. 3 acute hyperkalemia with some EKG changes, recovered and the potassium level normalized 4 metabolic acidosis secondary to acute kidney injury, improving 5 massive fluid overload as the patient is up by around 100 pounds in weight and her body mass index is up to 58.5 with extensive edema in all 4 extremities 6 chronic stage III kidney disease with a baseline creatinine ranging between 1- 1.5 7 history of liver cirrhosis with hepatic encephalopathy 8 history of CHF with diastolic dysfunction 9 fibromyalgia 10 hypertension 11 hyperlipidemia 12 rheumatoid arthritis 13 severe disorder 14 history of SVT. 15 diabetic peripheral neuropathy 16 history of breast cancer, right-sided post surgery followed by chemotherapy 17 chronic anxiety depression 18 extensive debility and the patient is correction resident Plan The patient was seen and evaluated by Dr. Villareal Continue diuretics Continue Levaquin Dopplers negative for DVT We'll continue to follow I, the cosigning physician, performed a history & physical examination of the patient. Lungs sounds clear. Maintaining good O2 saturations in the 90s on room air. I discussed the assessment and plan of care with my nurse practitioner, Dodie Carvalho. I attest to the above note as dictated by her.
--- NOTE | 2019-10-30 12:44 | PN ---
PROGRESS NOTE Patient is seen for followup for acute kidney injury mostly cardiorenal and volume overload. She has been maintained on Lasix drip which was decreased to 5 mg an hour. Patient has had good urine output. A 24 hour urine output 3.6 L for yesterday. Swelling has improved. PHYSICAL EXAMINATION: Blood pressure is 102/60, heart rate 71 per minute, she is afebrile. Examination of the heart S1, S2. Examination of the lungs, bilateral breath sounds are heard. Decreased breath sounds at the bases. Abdomen is soft, obese. Examination of the lower extremities shows bilateral extremities to be wrapped. ACCOUNTS COLLECTOR exam grossly intact. LABS: Show sodium 138, potassium 3.8, chloride 103, BUN 53, creatinine 1.83. ASSESSMENT: 1. Acute kidney injury, cardiorenal, currently stable maintained on Lasix drip. 2. Severe hyperkalemia and volume overload now improving. 3. Urinary tract infection with E coli maintained on antibiotics. 4. Acute on top of chronic, mostly diastolic. 5. Chronic kidney disease stage 3 baseline creatinine 1-1.5 mg/dL secondary to nephrosclerosis and diabetic kidney disease. 6. Iron deficiency status post IV iron. PLAN: DC Lasix drip, switch to Lasix 40 mg IV q.8 hours and repeat labs in a.m. MMODL / IJN: [id number] /
[2019-10-30] MEDS: FUROSEMIDE 10 MG/ML 4 ML VIAL IV SCH ×2 (14:54→20:21)
[2019-10-30 16:39] LABS: Glucose,Whole Blood 146 mg/dL (75-99)
[2019-10-30 20:09] LABS: Glucose,Whole Blood 191 mg/dL (75-99)
[2019-10-30] MEDS: INSULIN DETEMIR (LEVEMIR) 100 UNIT/ML SYR SQ SCH (20:25)
[2019-10-31] MEDS: diphenhydrAMINE 25 MG CAP PO PRN (01:10)
[2019-10-31 06:42] LABS: Glucose,Whole Blood 118 mg/dL (75-99)
--- NOTE | 2019-10-31 10:51 | P.PN ---
Subjective Patient is admitted for volume overload probably secondary to chronic sun dysfunction with acute exacerbation patient the is being treated for cardiorenal syndrome with IV Lasix drip patient's creatinine started improving potassium improved patient feels better 10/27/2019 Patient the labs are improving serum creatinine showed some improvement. She blood pressure went down because of which are cortisol level was obtained which was low because of which patient was is having cosyntropin stimulation test. Patient blood pressure went down yesterday and was briefly on norepinephrine because of IV Lasix and patient had urine output of about 6 L. 10/29/2019 Patient's serum creatinine is around 1.8 bit worse compared to yesterday still negative so diuresis still has significant anasarca respiratory status is fairly well presently on room air. 08/29/2019 Patient's edema and anasarca did improve significantly patient remains on the 5 mg per hour of Lasix. Her creatinine remains stable. Patient is comparing of bilateral calf pain. Because of which I'm obtaining a Doppler of lower extremities. Patient is on subcutaneous heparin for DVT prophylaxis 10/31/2019 Patient is coming of cramps in both legs because of the aggressive diuresis. Patient swelling significantly improved and patient was switched to IV Lasix from IV Lasix drip Constitutional: Patient is tired Cardio vascular: denied any chest pain, palpitations Gastrointestinal denied any nausea vomiting Pulmonary: Shortness of breath improved Neurologic denied any new focal deficits All inpatient medications were reviewed and appropriate changes in these medications as dictated in the interval history and assessment and plan. Objective - Vital Signs Vital signs: Vital Signs Temp 98.1 F 10/31/19 08:19 Pulse 72 10/31/19 08:19 Resp 18 10/31/19 08:19 BP 116/67 10/31/19 08:19 Pulse Ox 98 10/31/19 08:19 Intake & Output 10/30/19 10/31/19 10/31/19 18:59 06:59 18:59 Intake Total 540 520 Output Total 1000 1225 Balance -460 -705 Weight 150.5 kg Intake: IV 40 KVO 40 Oral 540 480 Output: Urine 1000 1225 Straight 700 Other: Voiding Method Indwelling Catheter Indwelling Catheter Indwelling Catheter - Exam PHYSICAL EXAMINATION: GENERAL: The patient is alert and oriented x3, not in any acute distress. Moderately obese anasarca improved significantly HEENT: Pupils are round and equally reacting to light. EOMI. No scleral icterus. No conjunctival pallor. Normocephalic, atraumatic. No pharyngeal erythema. No thyromegaly. CARDIOVASCULAR: S1 and S2 present. No murmurs, rubs, or gallops. PULMONARY: Chest is clear to auscultation, no wheezing or crackles. ABDOMEN: Soft, nontender, nondistended, normoactive bowel sounds. No palpable organomegaly. MUSCULOSKELETAL: No joint swelling or deformity. EXTREMITIES: No cyanosis, clubbing, edema improved significantly NEUROLOGICAL: Gross neurological examination did not reveal any focal deficits. SKIN: No rashes. - Labs CBC & Chem 7: 10/27/19 04:53 10/30/19 07:02 Labs: Abnormal Lab Results - Last 24 Hours (Table) 10/30/19 10/30/19 10/30/19 Range/Units 11:45 16:38 20:08 POC Glucose (mg/dL) 141 H 146 H 191 H (75-99) mg/dL 10/31/19 Range/Units 06:40 POC Glucose (mg/dL) 118 H (75-99) mg/dL Microbiology - Last 24 Hours (Table) 10/24/19 22:21 Blood Culture - Final Blood No Growth after 144 hours Assessment and Plan Plan: -Acute renal failure: Most probably secondary to acute tubular necrosis believed to be secondary to cardiorenal syndrome patient's creatinine is elevated to 2.28 , now around 2 improved baseline was 0.7 and month July patient will be continued on IV Lasix to because patient echocardiogram repeat 1 showed normal ejection fraction) to be severely enlarged right atrium is moderately enlarged with mild pulmonary hypertension. Patient remains on IV Lasix drip a serum creatinine improved to 1.8 serum sodium improved potassium improved -Possibility of UTI which I cannot completely rule out continue with the present antibiotics patient is presently on levofloxacin patient has past history E. coli. Patient received more than 5 days of antibiotics and medics were discontinued -Hyperkalemia secondary to acute renal failure and metabolic acidosis secondary to acute renal failure and Aldactone, patient is on low potassium diet and is on Lasix . Potassium improved -Metabolic acidosis secondary to renal failure improved now, patient was on oral bicarbonate supplementation is being discontinued at this time -Fibromyalgia -Hyperlipidemia -Hypertension -Seizure disorder -History of SVT -Depression For above-mentioned medical problems patient resumed on appropriate home medications -DVT prophylaxis with subcutaneous heparin
[2019-10-31] MEDS: HYDROcodone/APAP 10-325MG 1 EACH TAB PO PRN ×3 (11:04→20:10)
[2019-10-31] MEDS: FUROSEMIDE 10 MG/ML 4 ML VIAL IV SCH ×3 (11:12→21:07)
[2019-10-31] MEDS: METOPROLOL TARTRATE 25 MG TAB PO SCH ×2 (11:13→20:10)
[2019-10-31] MEDS: HEPARIN SODIUM,PORCINE 5,000 UNIT/ML 1 ML VIAL SQ SCH ×3 (11:13→23:13)
[2019-10-31] MEDS: RIFAXIMIN 550 MG TABLET PO SCH ×2 (11:14→20:10)
[2019-10-31] MEDS: GABAPENTIN 100 MG CAP PO SCH ×2 (11:14→20:10)
[2019-10-31] MEDS: LEVOFLOXACIN 250 MG TAB PO SCH (11:14)
[2019-10-31] MEDS: FOLIC ACID 1 MG TAB PO SCH (11:14)
[2019-10-31] MEDS: THIAMINE 100 MG TAB PO SCH (11:14)
[2019-10-31] MEDS: LACTULOSE 20 GM/30 ML CUP PO SCH ×2 (11:14→20:16)
[2019-10-31] MEDS: ANASTROZOLE 1 MG TAB PO SCH (11:15)
[2019-10-31 12:14] LABS: Glucose,Whole Blood 112 mg/dL (75-99)
[2019-10-31 12:49] VITALS: BMI 53.5
--- NOTE | 2019-10-31 13:37 | P.PN ---
Subjective Progress Note Date: 10/31/19 Principal diagnosis: Acute kidney injury, hyperkalemia, fluid volume overload 69-year-old female patient, [facility] resident because of multiple medical problems and comorbidities, was transferred to our hospital as the patient has gained significant amount of weight and order 100 pounds over the past 1 month. Note that the patient was in the hospital on 08/24/2023 and acute GI bleeding where she was having maroon color stool and positive fecal occult bloods. She underwent EGD that showed mild gastritis and there was no evidence of active bleeding. She also has diverticular disease. She was transferred back to the [facility]. She has chronic kidney disease. The patient was found to have an acute kidney injury on top of chronic kidney failure. Her creatinine was up and the patient also had an acute hyperkalemia with a potassium level of 7.1. In the ED, the patient was treated with potassium cocktail where she was given calcium, D50 insulin and bicarb. Potassium level came down to 6.9. The EKG showed some first degree AV block along with right bundle branch block pattern which was present back in July 2019. In any rate, there was concern that the p atient was having cardiac toxicity related to hyperkalemia. I saw this patient on the medical floor as transferred this patient to the intensive care unit for further care. The patient was already seen by nephrology and the patient was started on Lasix drip which is currently running a temperature grams an hour. The repeat potassium level is down to 6.7. Serum bicarb is at 17. BNP currently is at 56 with a creatinine of 2.1. 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 Her urine seems to be effective for now as the patient has more than 182 WBCs along with white clumps. The patient was started on Levaquin. She is afebrile. She is hemodynamically stable. She is on room air oxygen with a pulse ox of 98%. Ultrasound of the kidneys was done and the patient was found to have no evidence of hydronephrosis on the right kidney. Left kidney was not visualized. A Granados catheter is also to be inserted. 10/26/2019, the patient is being seen for a follow-up. Overnight the patient to be started on some pressors as the patient was having some lower blood pressures the patient was being diuresed on Lasix drip at the rate of 10 mg an hour. There is adequate urine output for now. Granados catheter in place. The patient continues to be edematous in all 4 extremities. No respiratory difficulties. No cough sputum production chest tightness or wheezing. The patient's overall body discomfort and pain is improved as the patient is diuresing well. Her net fluid balance over the past 24 hours is been in the order of 1.7 and then 1.5 L. Body weight is gradually going down as the patient has lost around 2 kg since yesterday. As for the potassium level, this is also improving and the potassium level is down to 5.1. Serum bicarb is 19. Creatinine is at 2.09 with a mean of 51. Hemoglobin stable at 7.3. Urine cultures still pending and the blood cul tures still pending. The patient is covered empirically with IV Levaquin. 10/27/2019, I'm seeing this patient for a follow-up. Doing well. No complaints. Diuresing extensively as the patient has been in a negative fluid balance of 5 L and she has lost about 10 kg. She remains on Lasix drip at 10 mg an hour. Based on serum cortisol was low. Nephrology once ablate cosyntropin stimulation test to rule out the possibility of added insufficiency. She has E. coli in her urine and the patient is covered with Levaquin. No other new complaints for now. No significant pain. No altered mentation. She is feeling better as the patient's overall Body swelling is improving. The BUN is 50 with a creatinine of 1.9. Electrodes are within normal limits. White cell count is at 2.2. He will was stable at 7.3. 10/28/2019, I'm seeing the patient for a follow-up. The patient is doing well. No specific complaints. She is gradually improving. She is still making significant amount of urine output. The patient has diuresed extensively and she has lost approximately 12 kg of weight and she is in a negative fluid balance of more than 3 L over the past 24 hours. She diuresed around 6.3 L and negative fluid balance over the past 24 hours to she remains on Lasix drip at 10 mg an hour. Despite all this, she is still edematous. Her pulse ox on room is on 92%. She underwent a cosyntropin stimulation test yesterday with garment turner to be within normal limits and the patient does not show any signs of adrenal insufficiency. No fever. No chills. No cough or sputum production. No alte red mentation. No other complaints otherwise for now. We decided to proceed with diuresis for another 24 hours. 10/29/2019, the patient continued to diurese aggressively. The patient was dropped down to 5 g an hour of Lasix drip. The patient is a negative fluid balance of 3.1 L over the past 24 hours. Her weight continues to go down progressively. He on room air oxygen. She is sitting up in her back and she is doing some lorraine . Denies having any respiratory difficulties. No fever or chills. No electrolytes imbalance. Potassium level is at 3.9. BUN is at 52 with a creatinine of 1.8 which is comparable compared to yesterday. The patient is seen today 10/30/2019 in follow-up on the selective care unit. She is currently resting comfortably in bed. Maintaining O2 saturation in the mid 90s on room air. She's been afebrile. Hemodynamically stable. Urine culture positive for E. coli. Blood cultures reveal no growth. Sodium 138. Potassium 3.8. Creatinine 1.83. Currently on Lasix 40 mg IV every 8 hours. She remains in a negative balance. Antibiotics in the form of Levaquin. On 10/31/2019 patient seen in follow-up on selective care unit, she remains on IV Lasix at 40 mg every 8 hours, she continues to diurese, states she is breathing easier, and she is currently on room air, she has produced 2.2 L in urine output, and she is in -1.1 L over last 24 hours, lower extremity edema is improving, room air pulse ox is 99%, hemodynamically patient is stable, she's had no fever or chills. She continues on Levaquin, and urine culture shows E- coli. Lower extremity edema still remains although improved, lower extremity Dopplers were negative for DVT Objective - Vital Signs Vital signs: Vital Signs Temp 98.0 F 10/31/19 13:04 Pulse 63 10/31/19 13:04 Resp 18 10/31/19 13:04 BP 112/63 10/31/19 13:04 Pulse Ox 99 10/31/19 13:04 Intake & Output 10/30/19 10/31/19 10/31/19 18:59 06:59 18:59 Intake Total 540 520 Output Total 1000 1225 Balance -460 -705 Weight 150.5 kg 150.5 kg Intake: IV 40 KVO 40 Oral 540 480 Output: Urine 1000 1225 Straight 700 Other: Voiding Method Indwelling Catheter Indwelling Catheter Indwelling Catheter - Exam GENERAL EXAM: Alert, very pleasant, 59-year-old obese white female, resting comfortably in bed, with a pulse ox of 99% comfortable in no apparent distress. HEAD: Normocephalic/atraumatic. EYES: Normal reaction of pupils, equal size. Conjunctiva pink, sclera white. NOSE: Clear with pink turbinates. THROAT: No erythema or exudates. NECK: No masses, no JVD, no thyroid enlargement, no adenopathy. CHEST: No chest wall deformity. Symmetrical expansion. LUNGS: Equal air entry with no crackles, wheeze, rhonchi or dullness. CVS: Regular rate and rhythm, normal S1 and S2, no gallops, no murmurs, no rubs ABDOMEN: Soft, nontender. No hepatosplenomegaly, normal bowel sounds, no guarding or rigidity. EXTREMITIES: No clubbing, 2+ lower extremity edema, no cyanosis, 2+ pulses and upper and lower extremities. MUSCULOSKELETAL: Muscle strength and tone normal. SPINE: No scoliosis or deformity SKIN: No rashes CENTRAL NERVOUS SYSTEM: Alert and oriented -3. No focal deficits, tone is normal in all 4 extremities. PSYCHIATRIC: Alert and oriented -3. Appropriate affect. Intact judgment and insight. - Labs CBC & Chem 7: 10/27/19 04:53 10/30/19 07:02 Labs: Abnormal Lab Results - Last 24 Hours (Table) 10/30/19 10/30/19 10/31/19 Range/Units 16:38 20:08 06:40 POC Glucose (mg/dL) 146 H 191 H 118 H (75-99) mg/dL 10/31/19 Range/Units 11:53 POC Glucose (mg/dL) 112 H (75-99) mg/dL Microbiology - Last 24 Hours (Table) 10/24/19 22:21 Blood Culture - Final Blood No Growth after 144 hours Assessment and Plan Plan: 1 acute kidney injury secondary to ATN, on top of chronic kidney disease. The renal function improved inspect his baseline. The patient is being diuresis with Lasix drip at 5 mg an hour as the patient has significant fluid overload. She remains in a negative fluid balance with improvement in lower extremity edema. 2 UTI, recurrent with previous infections with multiple microorganisms including VRE, and we are repeating the follow-up urine cultures. The most recent cultures showing E. coli and the patient is currently on Levaquin. 3 acute hyperkalemia with some EKG changes, recovered and the potassium level normalized 4 metabolic acidosis secondary to acute kidney injury, improving 5 massive fluid overload as the patient is up by around 100 pounds in weight and her body mass index is up to 58.5 with extensive edema in all 4 extremities 6 chronic stage III kidney disease with a baseline creatinine ranging between 1- 1.5 7 history of liver cirrhosis with hepatic encephalopathy 8 history of CHF with diastolic dysfunction 9 fibromyalgia 10 hypertension 11 hyperlipidemia 12 rheumatoid arthritis 13 severe disorder 14 history of SVT. 15 diabetic peripheral neuropathy 16 history of breast cancer, right-sided post surgery followed by chemotherapy 17 chronic anxiety depression 18 extensive debility and the patient is [facility] resident Plan: Continue the diuretics, per nephrology recommendations, patient is maintaining negative fluid balance, still has significant lower extremity edema, will cont inue the diuretics. Continue antibiotics for urinary tract infection. No signs have been stable, no fever or chills, no acute events overnight, monitor electrolytes and renal profile daily basis, we'll continue to follow I performed a history & physical examination of the patient and discussed their management with my nurse practitioner, Yesica Velázquez. I reviewed the nurse practitioner's note and agree with the documented findings and plan of care. Lung sounds are positive for diminished breath sounds, with minimal crackles in the right lower lobe. The findings and the impression was discussed with the patient. I attest to the documentation by the nurse practitioner. Time with Patient: Less than 30
--- NOTE | 2019-10-31 15:58 | PN ---
PROGRESS NOTE Patient is seen for followup for acute kidney injury, mostly cardiorenal and severe volume overload. Her renal function has been fairly stable for the last 3 days with serum creatinine staying at 1.8. The patient was on Lasix drip which is now discontinued and she has switched over to 40 mg IV q.8 hours. Urine output remains fair, although not as much as on Lasix drip. A 24 hour output at about 2.2 L. PHYSICAL EXAMINATION: On examination today, blood pressure was 116/67, heart rate 72 per minute, patient is afebrile. Examination of the heart, S1, S2. Examination of the lungs, bilateral breath sounds are heard. Abdomen is soft, nontender, obese. Examination of the lower extremities shows edema 2+ bilaterally. Chronic skin changes. [employer]ATOR exam grossly intact. LABS: From yesterday show sodium 138, potassium 3.8, BUN 53, creatinine 1.83. No labs drawn today. ASSESSMENT: 1. Acute kidney injury cardiorenal, renal function stable. 2. Volume overload maintained on IV Lasix 40 mg q.8 hours for now. 3. Acute on top of chronic CHF mainly diastolic. 4. Chronic kidney disease stage 3, mostly secondary to nephrosclerosis and diabetic kidney disease, baseline creatinine 1-1.5. 5. Iron deficiency status post IV iron. 6. Urinary tract infection with E coli maintained on antibiotics. PLAN: Continue with IV Lasix, repeat labs in a.m. Possible switch to oral antibiotics depending on the labs and overall volume status. Patient is also advised regarding salt restriction. She should continue with the metolazone as well for now. MMODL / IJN: [id number] /
[2019-10-31 16:51] LABS: Glucose,Whole Blood 138 mg/dL (75-99)
[2019-10-31 20:16] LABS: Hemoglobin A1C 4.9 % (4.0-6.0)
[2019-10-31 20:27] LABS: Glucose,Whole Blood 140 mg/dL (75-99)
[2019-10-31] MEDS: INSULIN DETEMIR (LEVEMIR) 100 UNIT/ML SYR SQ SCH (21:07)
[2019-11-01 06:36] LABS: Glucose,Whole Blood 106 mg/dL (75-99)
[2019-11-01] MEDS: METOPROLOL TARTRATE 25 MG TAB PO SCH ×2 (08:45→21:25)
[2019-11-01] MEDS: HEPARIN SODIUM,PORCINE 5,000 UNIT/ML 1 ML VIAL SQ SCH ×3 (08:45→23:06)
[2019-11-01] MEDS: FOLIC ACID 1 MG TAB PO SCH (08:45)
[2019-11-01] MEDS: LACTULOSE 20 GM/30 ML CUP PO SCH ×2 (08:45→21:25)
[2019-11-01] MEDS: THIAMINE 100 MG TAB PO SCH (08:45)
[2019-11-01] MEDS: GABAPENTIN 100 MG CAP PO SCH ×2 (08:45→21:25)
[2019-11-01] MEDS: FUROSEMIDE 10 MG/ML 4 ML VIAL IV SCH ×3 (08:45→23:06)
[2019-11-01] MEDS: ANASTROZOLE 1 MG TAB PO SCH (08:46)
[2019-11-01] MEDS: LEVOFLOXACIN 250 MG TAB PO SCH (08:46)
[2019-11-01] MEDS: RIFAXIMIN 550 MG TABLET PO SCH ×2 (08:46→21:32)
[2019-11-01 11:29] LABS: Glucose,Whole Blood 155 mg/dL (75-99)
--- NOTE | 2019-11-01 12:18 | P.PN ---
Subjective Patient is admitted for volume overload probably secondary to chronic sun dysfunction with acute exacerbation patient the is being treated for cardiorenal syndrome with IV Lasix drip patient's creatinine started improving potassium improved patient feels better 10/27/2019 Patient the labs are improving serum creatinine showed some improvement. She blood pressure went down because of which are cortisol level was obtained which was low because of which patient was is having cosyntropin stimulation test. Patient blood pressure went down yesterday and was briefly on norepinephrine because of IV Lasix and patient had urine output of about 6 L. 10/29/2019 Patient's serum creatinine is around 1.8 bit worse compared to yesterday still negative so diuresis still has significant anasarca respiratory status is fairly well presently on room air. 08/29/2019 Patient's edema and anasarca did improve significantly patient remains on the 5 mg per hour of Lasix. Her creatinine remains stable. Patient is comparing of bilateral calf pain. Because of which I'm obtaining a Doppler of lower extremities. Patient is on subcutaneous heparin for DVT prophylaxis 10/31/2019 Patient is coming of cramps in both legs because of the aggressive diuresis. Patient swelling significantly improved and patient was switched to IV Lasix from IV Lasix drip. 11/01/2019 Patient still hasn't been swelling creatinine remains stable patient will be continued on IV Lasix. Constitutional: Patient is tired Cardio vascular: denied any chest pain, palpitations Gastrointestinal denied any nausea vomiting Pulmonary: Shortness of breath improved Neurologic denied any new focal deficits All inpatient medications were reviewed and appropriate changes in these medications as dictated in the interval history and assessment and plan. Objective - Vital Signs Vital signs: Vital Signs Temp 97.8 F 11/01/19 08:35 Pulse 66 11/01/19 08:35 Resp 18 11/01/19 08:35 BP 117/72 11/01/19 08:35 Pulse Ox 97 11/01/19 08:35 Intake & Output 10/31/19 11/01/19 11/01/19 18:59 06:59 18:59 Intake Total 420 320 240 Output Total 1750 2100 750 Balance -1330 -1780 -510 Weight 150.5 kg 149.5 kg Intake: Oral 420 320 240 Output: Urine 1750 2100 750 Straight 325 Other: Voiding Method Indwelling Catheter Indwelling Catheter - Exam PHYSICAL EXAMINATION: GENERAL: The patient is alert and oriented x3, not in any acute distress. Moderately obese anasarca improved significantly HEENT: Pupils are round and equally reacting to light. EOMI. No scleral icterus. No conjunctival pallor. Normocephalic, atraumatic. No pharyngeal erythema. No thyromegaly. CARDIOVASCULAR: S1 and S2 present. No murmurs, rubs, or gallops. PULMONARY: Chest is clear to auscultation, no wheezing or crackles. ABDOMEN: Soft, nontender, nondistended, normoactive bowel sounds. No palpable organomegaly. MUSCULOSKELETAL: No joint swelling or deformity. EXTREMITIES: No cyanosis, clubbing, edema improved significantly NEUROLOGICAL: Gross neurological examination did not reveal any focal deficits. SKIN: No rashes. - Labs CBC & Chem 7: 10/27/19 04:53 10/30/19 07:02 Labs: Abnormal Lab Results - Last 24 Hours (Table) 10/31/19 10/31/19 11/01/19 Range/Units 16:50 20:25 06:35 POC Glucose (mg/dL) 138 H 140 H 106 H (75-99) mg/dL 11/01/19 Range/Units 11:28 POC Glucose (mg/dL) 155 H (75-99) mg/dL Assessment and Plan Plan: -Acute renal failure: Most probably secondary to acute tubular necrosis believed to be secondary to cardiorenal syndrome patient's creatinine is elevated to 2.28 , now around 2 improved baseline was 0.7 and month July patient will be continued on IV Lasix to because patient echocardiogram repeat 1 showed normal ejection fraction) to be severely enlarged right atrium is moderately enlarged with mild pulmonary hypertension. Patient remains on IV Lasix a serum creatinine improved to 1.8 improved since admission but remained stable at this level -Possibility of UTI received antibiotics for 5 days -Hyperkalemia secondary to acute renal failure and metabolic acidosis secondary to acute renal failure and Aldactone, presently normal -Metabolic acidosis secondary to renal failure improved now, patient is on oral bicarbonate supplementation -Fibromyalgia -Hyperlipidemia -Hypertension -Seizure disorder -History of SVT -Depression -Ruled out DVT -DVT prophylaxis with subcutaneous heparin
--- NOTE | 2019-11-01 12:22 | P.PN ---
Subjective Progress Note Date: 11/01/19 Principal diagnosis: Acute kidney injury, hyperkalemia, fluid volume overload 69-year-old female patient, [facility] resident because of multiple medical problems and comorbidities, was transferred to our hospital as the patient has gained significant amount of weight and order 100 pounds over the past 1 month. Note that the patient was in the hospital on 08/24/2023 and acute GI bleeding where she was having maroon color stool and positive fecal occult bloods. She underwent EGD that showed mild gastritis and there was no evidence of active bleeding. She also has diverticular disease. She was [facility] to the [facility]. She has chronic kidney disease. The patient was found to have an acute kidney injury on top of chronic kidney failure. Her creatinine was up and the patient also had an acute hyperkalemia with a potassium level of 7.1. In the ED, the patient was treated with potassium cocktail where she was given calcium, D50 insulin and bicarb. Potassium level came down to 6.9. The EKG showed some first degree AV block along with right bundle branch block pattern which was present back in July 2019. In any rate, there was concern that the p atient was having cardiac toxicity related to hyperkalemia. I saw this patient on the medical floor as transferred this patient to the intensive care unit for further care. The patient was already seen by nephrology and the patient was started on Lasix drip which is currently running a temperature grams an hour. The repeat potassium level is down to 6.7. Serum bicarb is at 17. BNP currently is at 56 with a creatinine of 2.1. 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 Her urine seems to be effective for now as the patient has more than 182 WBCs along with white clumps. The patient was started on Levaquin. She is afebrile. She is hemodynamically stable. She is on room air oxygen with a pulse ox of 98%. Ultrasound of the kidneys was done and the patient was found to have no evidence of hydronephrosis on the right kidney. Left kidney was not visualized. A Granados catheter is also to be inserted. 10/26/2019, the patient is being seen for a follow-up. Overnight the patient to be started on some pressors as the patient was having some lower blood pressures the patient was being diuresed on Lasix drip at the rate of 10 mg an hour. There is adequate urine output for now. Granados catheter in place. The patient continues to be edematous in all 4 extremities. No respiratory difficulties. No cough sputum production chest tightness or wheezing. The patient's overall body discomfort and pain is improved as the patient is diuresing well. Her net fluid balance over the past 24 hours is been in the order of 1.7 and then 1.5 L. Body weight is gradually going down as the patient has lost around 2 kg since yesterday. As for the potassium level, this is also improving and the potassium level is down to 5.1. Serum bicarb is 19. Creatinine is at 2.09 with a mean of 51. Hemoglobin stable at 7.3. Urine cultures still pending and the blood cul tures still pending. The patient is covered empirically with IV Levaquin. 10/27/2019, I'm seeing this patient for a follow-up. Doing well. No complaints. Diuresing extensively as the patient has been in a negative fluid balance of 5 L and she has lost about 10 kg. She remains on Lasix drip at 10 mg an hour. Based on serum cortisol was low. Nephrology once ablate cosyntropin stimulation test to rule out the possibility of added insufficiency. She has E. coli in her urine and the patient is covered with Levaquin. No other new complaints for now. No significant pain. No altered mentation. She is feeling better as the patient's overall Body swelling is improving. The BUN is 50 with a creatinine of 1.9. Electrodes are within normal limits. White cell count is at 2.2. He will was stable at 7.3. 10/28/2019, I'm seeing the patient for a follow-up. The patient is doing well. No specific complaints. She is gradually improving. She is still making significant amount of urine output. The patient has diuresed extensively and she has lost approximately 12 kg of weight and she is in a negative fluid balance of more than 3 L over the past 24 hours. She diuresed around 6.3 L and negative fluid balance over the past 24 hours to she remains on Lasix drip at 10 mg an hour. Despite all this, she is still edematous. Her pulse ox on room is on 92%. She underwent a cosyntropin stimulation test yesterday with field return repairer to be within normal limits and the patient does not show any signs of adrenal insufficiency. No fever. No chills. No cough or sputum production. No alte red mentation. No other complaints otherwise for now. We decided to proceed with diuresis for another 24 hours. 10/29/2019, the patient continued to diurese aggressively. The patient was dropped down to 5 g an hour of Lasix drip. The patient is a negative fluid balance of 3.1 L over the past 24 hours. Her weight continues to go down progressively. He on room air oxygen. She is sitting up in her back and she is doing some lorraine . Denies having any respiratory difficulties. No fever or chills. No electrolytes imbalance. Potassium level is at 3.9. BUN is at 52 with a creatinine of 1.8 which is comparable compared to yesterday. The patient is seen today 10/30/2019 in follow-up on the selective care unit. She is currently resting comfortably in bed. Maintaining O2 saturation in the mid 90s on room air. She's been afebrile. Hemodynamically stable. Urine culture positive for E. coli. Blood cultures reveal no growth. Sodium 138. Potassium 3.8. Creatinine 1.83. Currently on Lasix 40 mg IV every 8 hours. She remains in a negative balance. Antibiotics in the form of Levaquin. On 10/31/2019 patient seen in follow-up on selective care unit, she remains on IV Lasix at 40 mg every 8 hours, she continues to diurese, states she is breathing easier, and she is currently on room air, she has produced 2.2 L in urine output, and she is in -1.1 L over last 24 hours, lower extremity edema is improving, room air pulse ox is 99%, hemodynamically patient is stable, she's had no fever or chills. She continues on Levaquin, and urine culture shows E- coli. Lower extremity edema still remains although improved, lower extremity Dopplers were negative for DVT On 11/01/2019 patient seen in follow-up on selective care unit. She continues on diuretics at 40 mg every 8 hours, she has produced 3.8 L in urine output over last 24 hours, she is in -3.1 liters of net fluid balance. Lower extremity edema is improving, eyes any worsening dyspnea, she remains on room air pulse ox of 97%, complaints of chest pain, no fever or chills. No acute events overnight, she remains on Levaquin for urinary tract infection. Objective - Vital Signs Vital signs: Vital Signs Temp 97.8 F 11/01/19 08:35 Pulse 66 11/01/19 08:35 Resp 18 11/01/19 08:35 BP 117/72 11/01/19 08:35 Pulse Ox 97 11/01/19 08:35 Intake & Output 10/31/19 11/01/19 11/01/19 18:59 06:59 18:59 Intake Total 420 320 240 Output Total 1750 2100 750 Balance -1330 -1780 -510 Weight 150.5 kg 149.5 kg Intake: Oral 420 320 240 Output: Urine 1750 2100 750 Straight 325 Other: Voiding Method Indwelling Catheter Indwelling Catheter - Exam GENERAL EXAM: Alert, very pleasant, 59-year-old obese white female, resting comfortably in bed, with a pulse ox of 97% comfortable in no apparent distress. HEAD: Normocephalic/atraumatic. EYES: Normal reaction of pupils, equal size. Conjunctiva pink, sclera white. NOSE: Clear with pink turbinates. THROAT: No erythema or exudates. NECK: No masses, no JVD, no thyroid enlargement, no adenopathy. CHEST: No chest wall deformity. Symmetrical expansion. LUNGS: Equal air entry with no crackles, wheeze, rhonchi or dullness. CVS: Regular rate and rhythm, normal S1 and S2, no gallops, no murmurs, no rubs ABDOMEN: Soft, nontender. No hepatosplenomegaly, normal bowel sounds, no guarding or rigidity. EXTREMITIES: No clubbing, 2+ lower extremity edema, no cyanosis, 2+ pulses and upper and lower extremities. MUSCULOSKELETAL: Muscle strength and tone normal. SPINE: No scoliosis or deformity SKIN: No rashes CENTRAL NERVOUS SYSTEM: Alert and oriented -3. No focal deficits, tone is normal in all 4 extremities. PSYCHIATRIC: Alert and oriented -3. Appropriate affect. Intact judgment and insight. - Labs CBC & Chem 7: 10/27/19 04:53 10/30/19 07:02 Labs: Abnormal Lab Results - Last 24 Hours (Table) 10/31/19 10/31/19 11/01/19 Range/Units 16:50 20:25 06:35 POC Glucose (mg/dL) 138 H 140 H 106 H (75-99) mg/dL 11/01/19 Range/Units 11:28 POC Glucose (mg/dL) 155 H (75-99) mg/dL Assessment and Plan Plan: 1 acute kidney injury secondary to ATN, on top of chronic kidney disease. The renal function improved inspect his baseline. The patient is being diuresis w ith Lasix drip at 5 mg an hour as the patient has significant fluid overload. She remains in a negative fluid balance with improvement in lower extremity edema. 2 UTI, recurrent with previous infections with multiple microorganisms including VRE, and we are repeating the follow-up urine cultures. The most recent cultures showing E. coli and the patient is currently on Levaquin. 3 acute hyperkalemia with some EKG changes, recovered and the potassium level normalized 4 metabolic acidosis secondary to acute kidney injury, improving 5 massive fluid overload as the patient is up by around 100 pounds in weight and her body mass index is up to 58.5 with extensive edema in all 4 extremities 6 chronic stage III kidney disease with a baseline creatinine ranging between 1- 1.5 7 history of liver cirrhosis with hepatic encephalopathy 8 history of CHF with diastolic dysfunction 9 fibromyalgia 10 hypertension 11 hyperlipidemia 12 rheumatoid arthritis 13 severe disorder 14 history of SVT. 15 diabetic peripheral neuropathy 16 history of breast cancer, right-sided post surgery followed by chemotherapy 17 chronic anxiety depression 18 extensive debility and the patient is [facility] resident Plan: Patient is doing well, no worsening dyspnea, she remains on room air, but the chest pain, she continues on diuretics, she is maintaining negative fluid balance, total fluid volume status is improving, lower extremity edema is improving, continue following with follow-up electrolytes and renal profile. I performed a history & physical examination of the patient and discussed their management with my nurse practitioner, Yesica Velázquez. I reviewed the nurse practitioner's note and agree with the documented findings and plan of care. Lung sounds are positive for diminished breath sounds, with minimal crackles in the right lower lobe. The findings and the impression was discussed with the patient. I attest to the documentation by the nurse practitioner. Time with Patient: Less than 30
[2019-11-01] MEDS: HYDROcodone/APAP 10-325MG 1 EACH TAB PO PRN ×3 (14:45→23:06)
--- NOTE | 2019-11-01 16:21 | PN ---
PROGRESS NOTE Patient is seen for followup for acute kidney injury, mostly cardiorenal. There are no labs done today. Patient remains on Lasix, which is now IV q.8 hours. Urine output has been at about 2 to 3 L. Overall patient denies any significant complaints. On examination today blood pressure was 117/72, heart rate 66 per minute. She is afebrile. EXAMINATION OF THE HEART: S1 and S2. EXAMINATION OF LUNGS: Decreased breath sounds at bases. Heart sounds are distant. ABDOMEN: Soft, obese, non-tender. Examination of lower extremities shows edema 3+ bilaterally. NETWORK DESIGN ARCHITECT exam is grossly intact. Labs are not available from today. ASSESSMENT: 1. Acute kidney injury, cardiorenal; renal function currently stable. Check labs in a.m. Continue with IV Lasix q.8 hours. 2. Volume overload, slowly improving off of Lasix drip, maintained on q.8 hours IV Lasix. 3. Chronic kidney disease, stage 3, secondary to nephrosclerosis, diabetic kidney disease. Baseline creatinine 1 to 1.5. 4. Iron deficiency, status post IV iron. 5. Urinary tract infection with Escherichia coli, maintained on antibiotics. PLAN: Continue with IV Lasix. Repeat labs in a.m. MMODL / IJN: [id number] /
[2019-11-01 16:44] LABS: Glucose,Whole Blood 133 mg/dL (75-99)
[2019-11-01 20:15] LABS: Glucose,Whole Blood 141 mg/dL (75-99)
[2019-11-01] MEDS: INSULIN DETEMIR (LEVEMIR) 100 UNIT/ML SYR SQ SCH (21:26)
[2019-11-02 00:44] VITALS: RESP 18
[2019-11-02 06:07] LABS: Glucose,Whole Blood 126 mg/dL (75-99)
[2019-11-02 08:32] LABS: Calcium 8.5 mg/dL (8.4-10.2); Potassium 3.9 mmol/L (3.5-5.1)
[2019-11-02] MEDS: FUROSEMIDE 10 MG/ML 4 ML VIAL IV SCH (09:47)
[2019-11-02] MEDS: LACTULOSE 20 GM/30 ML CUP PO SCH (09:47)
[2019-11-02] MEDS: HEPARIN SODIUM,PORCINE 5,000 UNIT/ML 1 ML VIAL SQ SCH (09:47)
[2019-11-02] MEDS: THIAMINE 100 MG TAB PO SCH (09:48)
[2019-11-02] MEDS: METOPROLOL TARTRATE 25 MG TAB PO SCH (09:48)
[2019-11-02] MEDS: FOLIC ACID 1 MG TAB PO SCH (09:48)
[2019-11-02] MEDS: GABAPENTIN 100 MG CAP PO SCH (09:48)
[2019-11-02] MEDS: HYDROcodone/APAP 10-325MG 1 EACH TAB PO PRN (09:48)
[2019-11-02] MEDS: LEVOFLOXACIN 250 MG TAB PO SCH (09:51)
[2019-11-02] MEDS: ANASTROZOLE 1 MG TAB PO SCH (09:51)
[2019-11-02 10:01] VITALS: BP 111/56; PULSE 60; TEMP 98.5
--- NOTE | 2019-11-02 10:15 | P.DS ---
Providers Date of admission: 10/25/19 00:37 Attending physician: Noah Darnell Consults: 10/25/19 00:22 Consult Physician Stat Consulting Provider: John Finney Consult Reason/Comments: fluid overload, hyperkalemia Do you want consulting provider notified?: Yes, Notify in am 10/25/19 01:22 Consult Physician Stat Consulting Provider: Danielito Villareal Consult Reason/Comments: fluid overload, hyperkalemia Do you want consulting provider notified?: Yes Primary care physician: Tom Solqvi Hospital Course: Patient is admitted for volume overload probably secondary to chronic diastolic dysfunction with acute exacerbation patient the is being treated for cardiorenal syndrome with IV Lasix drip patient's creatinine started improving potassium improved patient feels better 10/27/2019 Patient the labs are improving serum creatinine showed some improvement. She blood pressure went down because of which are cortisol level was obtained which was low because of which patient was is having cosyntropin stimulation test. Patient blood pressure went down yesterday and was briefly on norepinephrine because of IV Lasix and patient had urine output of about 6 L. 10/29/2019 Patient's serum creatinine is around 1.8 bit worse compared to yesterday still negative so diuresis still has significant anasarca respiratory status is fairly well presently on room air. 08/29/2019 Patient's edema and anasarca did improve significantly patient remains on the 5 mg per hour of Lasix. Her creatinine remains stable. Patient is comparing of bilateral calf pain. Because of which I'm obtaining a Doppler of lower extremities. Patient is on subcutaneous heparin for DVT prophylaxis 10/31/2019 Patient is coming of cramps in both legs because of the aggressive diuresis. Patient swelling significantly improved and patient was switched to IV Lasix from IV Lasix drip. 11/01/2019 Patient still hasn't been swelling creatinine remains stable patient will be continued on IV Lasix. 11/02/2019 Patient edema significant improved. The patient still has some edema. Cleared from a nephrology perspective patient does have cirrhosis as well patient will be discharged on torsemide 20 mg twice a day along with Zaroxolyn PHYSICAL EXAMINATION: GENERAL: The patient is alert and oriented x3, not in any acute distress. Moderately obese anasarca improved significantly HEENT: Pupils are round and equally reacting to light. EOMI. No scleral icterus. No conjunctival pallor. Normocephalic, atraumatic. No pharyngeal erythema. No thyromegaly. CARDIOVASCULAR: S1 and S2 present. No murmurs, rubs, or gallops. PULMONARY: Chest is clear to auscultation, no wheezing or crackles. ABDOMEN: Soft, nontender, nondistended, normoactive bowel sounds. No palpable organomegaly. MUSCULOSKELETAL: No joint swelling or deformity. EXTREMITIES: No cyanosis, clubbing, edema improved significantly NEUROLOGICAL: Gross neurological examination did not reveal any focal deficits. SKIN: No rashes. Assessment and Plan Plan: -Acute renal failure: Most probably secondary to acute tubular necrosis believed to be secondary to cardiorenal syndrome patient's creatinine is elevated to 2.28 , now around 2 improved baseline was 0.7 and month July patient will be continued on IV Lasix to because patient echocardiogram repeat 1 showed normal ejection fraction) to be severely enlarged right atrium is moderately enlarged with mild pulmonary hypertension. Patient remains on IV Lasix a serum creatinine improved to 1.6 improved since admission but remained stable at this level patient is being discharged on torsemide Aldactone and the Zaroxolyn -Possibility of UTI received antibiotics for 7 days -Hyperkalemia secondary to acute renal failure and metabolic acidosis secondary to acute renal failure and Aldactone, presently normal famotidine will be resumed -Metabolic acidosis secondary to renal failure improved now, patient is on oral bicarbonate supplementation -Fibromyalgia -Hyperlipidemia -Hypertension -Seizure disorder -History of SVT -Depression -History of cirrhosis with hepatic encephalopathy will be continued on lactulose and rifaximin -Ruled out DVT -DVT prophylaxis with subcutaneous heparin Patient Condition at Discharge: Good Plan - Discharge Summary Discharge Rx Participant: Yes New Discharge Prescriptions: New Torsemide [Demadex] 20 mg PO BID #10 tablet metOLazone [Zaroxolyn] 5 mg PO DAILY #10 tablet Gabapentin [Neurontin] 200 mg PO TID PRN #10 cap PRN Reason: Pain HYDROcodone/APAP 10-325MG [[place] 10-325] 1 tab PO Q6HR PRN 3 Days #12 tab PRN Reason: Pain Continue Anastrozole [Arimidex] 1 mg PO DAILY@0900 Sennosides [Senna] 8.6 mg PO BID@0900,2100 PRN PRN Reason: Constipation Pantoprazole [Protonix] 40 mg PO DAILY@0600 Ferrous Sulfate [Iron (65 MG Elemental)] 325 mg PO DAILY@0900 Metoprolol Tartrate [Lopressor] 25 mg PO BID@0900,2100 Ergocalciferol (Vitamin D2) [Drisdol] 50,000 unit PO Q14D@0900 Acetaminophen [Tylenol] 650 mg PO Q4H PRN PRN Reason: Pain Dextran 70/Hypromellose [Genteal Tears 0.1%-0.3% Drop] 1 drop BOTH EYES Q12H PRN PRN Reason: Dry Eye(S)/redness Insulin Lispro 4 units SQ TID@0800,1200,1700 Rifaximin [Xifaxan] 550 mg PO BID@0900,2100 Lactulose 20 gm PO Q12H Thiamine [Vitamin B-1] 100 mg PO DAILY@0900 Multivitamins, Thera [Multivitamin (formulary)] 1 tab PO DAILY@0900 Spironolactone 50 mg PO DAILY@0900 Folic Acid 1 mg PO DAILY@0900 Lidocaine 5% Patch [Lidoderm 5% Patch] 1 patch TOPICAL DAILY patch Ondansetron [Zofran] 4 mg PO TID PRN PRN Reason: Nausea Melatonin 10 mg PO HS PRN PRN Reason: Insomnia Oxymetazoline 0.05% Nasl Escalon [Afrin 0.05% Nasal Escalon] 1 spray NASAL Q15M PRN MDD 3 DOSES PRN Reason: BLOODY NOSE Insulin Glargine,Hum.rec.anlog [Lantus Solostar] 20 unit SQ HS@2100 Discontinued HYDROcodone/APAP 10-325MG [[place] 10-325] 1 tab PO BID@0600,1800 Gabapentin [Neurontin] 300 mg PO BID@0900,2100 Dicyclomine [Bentyl] 10 mg PO TID Hydrocodone/Acetaminophen [[place] 10-325] 1 tab PO Q4H PRN PRN Reason: Pain Discharge Medication List Anastrozole [Arimidex] 1 mg PO DAILY@0900 09/30/14 [History] Sennosides [Senna] 8.6 mg PO BID@0900,2100 PRN 04/02/18 [History] Pantoprazole [Protonix] 40 mg PO DAILY@0600 07/02/18 [History] Ferrous Sulfate [Iron (65 MG Elemental)] 325 mg PO DAILY@89908/16/18 [History] Metoprolol Tartrate [Lopressor] 25 mg PO BID@899,209908/16/18 [History] Ergocalciferol (Vitamin D2) [Drisdol] 50,000 unit PO Q14D@89907/19/19 [History] Acetaminophen [Tylenol] 650 mg PO Q4H PRN 08/24/19 [History] Dextran 70/Hypromellose [Genteal Tears 0.1%-0.3% Drop] 1 drop BOTH EYES Q12H PRN 08/24/19 [History] Folic Acid 1 mg PO DAILY@89908/24/19 [History] Insulin Lispro 4 units SQ TID@0800,1200,1700 08/24/19 [History] Lactulose 20 gm PO Q12H 08/24/19 [History] Multivitamins, Thera [Multivitamin (formulary)] 1 tab PO DAILY@89908/24/19 [History] Rifaximin [Xifaxan] 550 mg PO BID@899,209908/24/19 [History] Spironolactone 50 mg PO DAILY@89908/24/19 [History] Thiamine [Vitamin B-1] 100 mg PO DAILY@89908/24/19 [History] Lidocaine 5% Patch [Lidoderm 5% Patch] 1 patch TOPICAL DAILY patch 09/03/19 [Rx] Insulin Glargine,Hum.rec.anlog [Lantus Solostar] 20 unit SQ HS@209910/25/19 [History] Melatonin 10 mg PO HS PRN 10/25/19 [History] Ondansetron [Zofran] 4 mg PO TID PRN 10/25/19 [History] Oxymetazoline 0.05% Nasl Escalon [Afrin 0.05% Nasal Escalon] 1 spray NASAL Q15M PRN MDD 3 DOSES 10/25/19 [History] Gabapentin [Neurontin] 200 mg PO TID PRN #10 cap 11/02/19 [Rx] HYDROcodone/APAP 10-325MG [[place] 10-325] 1 tab PO Q6HR PRN 3 Days #12 tab 11/02/19 [Rx] Torsemide [Demadex] 20 mg PO BID #10 tablet 11/02/19 [Rx] metOLazone [Zaroxolyn] 5 mg PO DAILY #10 tablet 11/02/19 [Rx] Follow up Appointment(s)/Referral(s): Tom Han MD [Primary Care Provider] - 3 Days Discharge Disposition: TRANSFER TO SNF/ECF
[2019-11-02 11:39] LABS: Glucose,Whole Blood 130 mg/dL (75-99)
--- NOTE | 2019-11-02 12:15 | P.PN ---
Subjective Progress Note Date: 11/02/19 Principal diagnosis: Acute kidney injury secondary to ATN, hyperkalemia 69-year-old female patient, [facility] resident because of multiple medical problems and comorbidities, was transferred to our hospital as the patient has gained significant amount of weight and order 100 pounds over the past 1 month. Note that the patient was in the hospital on 08/24/2023 and acute GI bleeding where she was having maroon color stool and positive fecal occult bloods. She underwent EGD that showed mild gastritis and there was no evidence of active bleeding. She also has diverticular disease. She was transferred back to the sn[facility]. She has chronic kidney disease. The patient was found to have an acute kidney injury on top of chronic kidney failure. Her creatinine was up and the patient also had an acute hyperkalemia with a potassium level of 7.1. In the ED, the patient was treated with potassium cocktail where she was given calcium, D50 insulin and bicarb. Potassium level came down to 6.9. The EKG showed some first degree AV block along with right bundle branch block pattern which was present back in July 2019. In any rate, there was concern that the patient was having cardiac toxicity related to hyperkalemia. I saw this patient on the medical floor as transferred this patient to the intensive care unit for further care. The patient was already seen by nephrology and the patient was started on Lasix drip which is currently running a temperature grams an hour. The repeat potassium level is down to 6.7. Serum bicarb is at 17. BNP currently is at 56 with a creatinine of 2.1. 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 Her urine seems to be effective for now as the patient has more than 182 WBCs along with white clumps. The patient was started on Levaquin. She is afebrile. She is hemodynamically stable. She is on room air oxygen with a pulse ox of 98%. Ultrasound of the kidneys was done and the patient was found to have no evidence of hydronephrosis on the right kidney. Left kidney was not visualized. A Granados catheter is also to be inserted. 10/26/2019, the patient is being seen for a follow-up. Overnight the patient to be started on some pressors as the patient was having some lower blood pressures the patient was being diuresed on Lasix drip at the rate of 10 mg an hour. There is adequate urine output for now. Granados catheter in place. The patient continues to be edematous in all 4 extremities. No respiratory difficulties. No cough sputum production chest tightness or wheezing. The patient's overall body discomfort and pain is improved as the patient is diuresing well. Her net fluid balance over the past 24 hours is been in the order of 1.7 and then 1.5 L. Body weight is gradually going down as the patient has lost around 2 kg since yesterday. As for the potassium level, this is also improving and the potassium level is down to 5.1. Serum bicarb is 19. Creatinine is at 2.09 with a mean of 51. Hemoglobin stable at 7.3. Urine cultures still pending and the blood cultures still pending. The patient is covered empirically with IV Levaquin. 10/27/2019, I'm seeing this patient for a follow-up. Doing well. No complaints. Diuresing extensively as the patient has been in a negative fluid balance of 5 L and she has lost about 10 kg. She remains on Lasix drip at 10 mg an hour. Based on serum cortisol was low. Nephrology once ablate cosyntropin stimulation test to rule out the possibility of added insufficiency. She has E. coli in her urine and the patient is covered with Levaquin. No other new complaints for now. No significant pain. No altered mentation. She is feeling better as the patient's overall Body swelling is improving. The BUN is 50 with a creatinine of 1.9. Electrodes are within normal limits. White cell count is at 2.2. He will was stable at 7.3. 10/28/2019, I'm seeing the patient for a follow-up. The patient is doing well. No specific complaints. She is gradually improving. She is still making significant amount of urine output. The patient has diuresed extensively and she has lost approximately 12 kg of weight and she is in a negative fluid balance of more than 3 L over the past 24 hours. She diuresed around 6.3 L and negative fluid balance over the past 24 hours to she remains on Lasix drip at 10 mg an hour. Despite all this, she is still edematous. Her pulse ox on room is on 92%. She underwent a cosyntropin stimulation test yesterday with turn out worker to be within normal limits and the patient does not show any signs of adrenal insufficiency. No fever. No chills. No cough or sputum production. No altered mentation. No other complaints otherwise for now. We decided to proceed with diuresis for another 24 hours. 10/29/2019, the patient continued to diurese aggressively. The patient was dropped down to 5 g an hour of Lasix drip. The patient is a negative fluid balance of 3.1 L over the past 24 hours. Her weight continues to go down progressively. He on room air oxygen. She is sitting up in her back and she is doing some lorraine . Denies having any respiratory difficulties. No fever or chills. No electrolytes imbalance. Potassium level is at 3.9. BUN is at 52 with a creatinine of 1.8 which is comparable compared to yesterday. The patient is seen today 10/30/2019 in follow-up on the selective care unit. She is currently resting comfortably in bed. Maintaining O2 saturation in the mid 90s on room air. She's been afebrile. Hemodynamically stable. Urine culture positive for E. coli. Blood cultures reveal no growth. Sodium 138. Potassium 3.8. Creatinine 1.83. Currently on Lasix 40 mg IV every 8 hours. She remains in a negative balance. Antibiotics in the form of Levaquin. On 10/31/2019 patient seen in follow-up on selective care unit, she remains on IV Lasix at 40 mg every 8 hours, she continues to diurese, states she is breathing easier, and she is currently on room air, she has produced 2.2 L in urine output, and she is in -1.1 L over last 24 hours, lower extremity edema is improving, room air pulse ox is 99%, hemodynamically patient is stable, she's had no fever or chills. She continues on Levaquin, and urine culture shows E- coli. Lower extremity edema still remains although improved, lower extremity Dopplers were negative for DVT On 11/01/2019 patient seen in follow-up on [facility] care unit. She continues on diuretics at 40 mg every 8 hours, she has produced 3.8 L in urine output over last 24 hours, she is in -3.1 liters of net fluid balance. Lower extremity edema is improving, eyes any worsening dyspnea, she remains on room air pulse ox of 97%, complaints of chest pain, no fever or chills. No acute events overnight, she remains on Levaquin for urinary tract infection. The patient is seen today 11/02/2019 in follow-up on the selective care unit. She is doing well. No worsening shortness of breath, cough or congestion. Maintaining good O2 saturations in the mid 90s on room air. Afebrile. Hemodynamically stable. Sodium 138. Potassium 3.9. Creatinine 1.62. She remains on Lasix 40 mg IV every 8 hours. Remains in a negative balance. Remains on Levaquin. Objective - Vital Signs Vital signs: Vital Signs Temp 98.5 F 11/02/19 09:45 Pulse 60 11/02/19 09:45 Resp 18 11/02/19 09:45 BP 111/56 11/02/19 09:45 Pulse Ox 95 11/02/19 09:45 Intake & Output 11/01/19 11/02/19 11/02/19 18:59 06:59 18:59 Intake Total 712 Output Total 2350 2300 Balance -1638 -2300 Weight 148.5 kg Intake: Oral 712 Output: Urine 2350 2300 Other: Voiding Method Indwelling Catheter Indwelling Catheter Indwelling Catheter # Voids 1 - Exam Alert pleasant 69 year old female patient, morbidly obese, comfortable, not in acute distress, on room air Head exam was generally normal. There was no scleral icterus or corneal arcus. Mucous membranes were moist. Neck was supple and without jugular venous distension, thyromegaly, or carotid bruits. Carotids were easily palpable bilaterally. There was no adenopathy. Lungs were clear to auscultation and percussion, and with normal diaphragmatic excursion. No wheezes or rales were noted. Cardiac exam revealed the PMI to be normally situated and sized. The rhythm was regular and no extrasystoles were noted during several minutes of auscultation. The first and second heart sounds were normal and physiologic splitting of the second heart sound was noted. There were no murmurs, rubs, clicks, or gallops. Abdomen is distended. There is some abdominal wall edema. There is no direct tenderness amount tensile guarding at this point in time. Bowel sounds are hypoactive the present. Extremities shows extensive edema in all 4 extremities. There is no cyanosis or clubbing. Overall edema is gradually improving especially in lower extremities. Upper extremities have already improved. Examination of the skin revealed no evidence of significant rashes, suspicious appearing nevi or other concerning lesions. Neurologically,Neurologically, the patient is awake and alert and the patient does not have any focal neurological deficit. Cranial nerves are essentially intact. - Labs CBC & Chem 7: 10/27/19 04:53 11/02/19 07:38 Labs: Abnormal Lab Results - Last 24 Hours (Table) 11/01/19 11/01/19 11/02/19 Range/Units 16:43 20:13 06:05 BUN (7-17) mg/dL Creatinine (0.52-1.04) mg/dL POC Glucose (mg/dL) 133 H 141 H 126 H (75-99) mg/dL 11/02/19 11/02/19 Range/Units 07:38 11:38 BUN 49 H (7-17) mg/dL Creatinine 1.62 H (0.52-1.04) mg/dL POC Glucose (mg/dL) 130 H (75-99) mg/dL Assessment and Plan Assessment: 1 acute kidney injury secondary to ATN, on top of chronic kidney disease. The renal function improved inspect his baseline. The patient is being diuresis with Lasix 40 mg IV every 8 hours. She remains in a negative fluid balance with improvement in lower extremity edema. 2 UTI, recurrent with previous infections with multiple microorganisms including VRE, and we are repeating the follow-up urine cultures. The most recent cultures showing E. coli and the patient is currently on Levaquin. 3 acute hyperkalemia with some EKG changes, recovered and the potassium level normalized 4 metabolic acidosis secondary to acute kidney injury, improving 5 massive fluid overload as the patient is up by around 100 pounds in weight and her body mass index is up to 58.5 with extensive edema in all 4 extremities 6 chronic stage III kidney disease with a baseline creatinine ranging between 1- 1.5 7 history of liver cirrhosis with hepatic encephalopathy 8 history of CHF with diastolic dysfunction 9 fibromyalgia 10 hypertension 11 hyperlipidemia 12 rheumatoid arthritis 13 severe disorder 14 history of SVT. 15 diabetic peripheral neuropathy 16 history of breast cancer, right-sided post surgery followed by chemotherapy 17 chronic anxiety depression 18 extensive debility and the patient is snf resident Plan The patient was seen and evaluated by Dr. Villareal She is stable from the pulmonary standpoint Plan is to transfer to ECF I, the cosigning physician, performed a history & physical examination of the patient. Lungs sounds clear. Maintaining good O2 saturations in the 90s on room air. I discussed the assessment and plan of care with my nurse practitioner, Dodie Carvalho. I attest to the above note as dictated by her.
--- NOTE | 2019-11-02 15:13 | PN ---
PROGRESS NOTE Patient is seen for follow up for acute kidney injury on top of chronic kidney disease and volume overload. She is currently maintained on IV Lasix. Overall, patient is doing fairly well. No significant new complaints. Renal function remains fairly stable. Serum creatinine is down to about 1.6 now. PHYSICAL EXAMINATION: Patient is comfortable, awake, not in any acute distress. Blood pressure is 111/56, heart rate 64 per minute, patient is afebrile. Examination of the heart S1, S2. Examination of the lungs, bilateral breath sounds are heard. Abdomen is soft, nontender. Examination of lower extremities shows chronic edema bilaterally with chronic skin changes noted. [employer] exam grossly intact. LABS: Show sodium 138, potassium 3.9, chloride 102, BUN 49, serum creatinine 1.62. ASSESSMENT: 1. Acute kidney injury, cardiorenal, renal function stable. 2. Severe volume overload, currently improved. 3. Chronic kidney disease stage 3 secondary to nephrosclerosis and diabetic kidney disease, baseline creatinine 1-1.5. 4. Urinary tract infection with E coli, maintained on antibiotics. PLAN: Okay to switch to p.o. diuretics in the form of Demadex or torsemide along with Zaroxolyn. Patient can be discharged with followup labs in about one week's time. MMODL / IJN: [id number] /
== END 2019-11-02 13:32 | DRG 291 ==
LOC: EC 21:09 → 3SCARD 10-25 00:37 → 2SICU 10-25 11:03 → 3SCARD 10-29 18:07
PROVIDERS: ADMIT Internal Medicine; ATTEND Internal Medicine
PROC: 05HF33Z Insertion of Infusion Device into Left Cephalic Vein, Percutaneous Approach (ICD-10-PCS; principal; 2019-10-25 13:35)
DX: I13.0 Hypertensive heart and chronic kidney disease with heart failure and stage 1 through stage 4 chronic kidney disease, or unspecified chronic kidney disease (principal); N17.0 Acute kidney failure with tubular necrosis; I50.33 Acute on chronic diastolic (congestive) heart failure; E87.2 Acidosis; Z68.43 Body mass index [BMI] 50.0-59.9, adult; Z20.828 Contact with and (suspected) exposure to other viral communicable diseases; I27.22 Pulmonary hypertension due to left heart disease; D63.1 Anemia in chronic kidney disease; N30.90 Cystitis, unspecified without hematuria; E11.22 Type 2 diabetes mellitus with diabetic chronic kidney disease; E11.42 Type 2 diabetes mellitus with diabetic polyneuropathy; K74.60 Unspecified cirrhosis of liver; I95.9 Hypotension, unspecified; J44.9 Chronic obstructive pulmonary disease, unspecified; E66.01 Morbid (severe) obesity due to excess calories; Z79.4 Long term (current) use of insulin; N18.3 Chronic kidney disease, stage 3 (moderate); M06.9 Rheumatoid arthritis, unspecified; G40.909 Epilepsy, unspecified, not intractable, without status epilepticus; E78.5 Hyperlipidemia, unspecified; E87.5 Hyperkalemia; F41.9 Anxiety disorder, unspecified; F32.9 Major depressive disorder, single episode, unspecified; B96.20 Unspecified Escherichia coli [E. coli] as the cause of diseases classified elsewhere; I45.10 Unspecified right bundle-branch block; I44.0 Atrioventricular block, first degree; M79.7 Fibromyalgia; G89.29 Other chronic pain; K57.90 Diverticulosis of intestine, part unspecified, without perforation or abscess without bleeding; R53.81 Other malaise; R25.2 Cramp and spasm; Z71.3 Dietary counseling and surveillance; Z79.811 Long term (current) use of aromatase inhibitors; Z79.899 Other long term (current) drug therapy; Z85.3 Personal history of malignant neoplasm of breast; Z92.21 Personal history of antineoplastic chemotherapy; Z87.440 Personal history of urinary (tract) infections; Z98.890 Other specified postprocedural states; Z90.49 Acquired absence of other specified parts of digestive tract; Z90.710 Acquired absence of both cervix and uterus; Z90.11 Acquired absence of right breast and nipple; Z87.891 Personal history of nicotine dependence; Z74.01 Bed confinement status; Z87.19 Personal history of other diseases of the digestive system; Z88.1 Allergy status to other antibiotic agents; Z88.5 Allergy status to narcotic agent; Z88.0 Allergy status to penicillin; Z88.8 Allergy status to other drugs, medicaments and biological substances; Z82.3 Family history of stroke; Z80.1 Family history of malignant neoplasm of trachea, bronchus and lung; Z80.3 Family history of malignant neoplasm of breast; Z82.0 Family history of epilepsy and other diseases of the nervous system; Z83.3 Family history of diabetes mellitus; Z82.5 Family history of asthma and other chronic lower respiratory diseases; Z82.61 Family history of arthritis
CPT/HCPCS: 36410; 36415; 71045; 71046; 76770; 76937; 80048; 80053; 81001; 82533; 82728; 83036; 83540; 83550; 83605; 83735; 83880; 84132; 84484; 85025; 85610; 85730; 87040; 87077; 87086; 87186; 93005; 93306; 93970; 96365; 96375; 99285

== ENCOUNTER 2019-12-21 11:02 | Inpatient (IN) | payer MEDICARE, OTHER ==
[2019-12-21] MEDS ORDERED: SODIUM CHLORIDE 0.9% 500 ML 500 ML IV STA (11:19)
[2019-12-21] MEDS ORDERED: SODIUM CHLORIDE 0.9% 1,000 ML IV STA (11:19)
--- NOTE | 2019-12-21 11:40 | ED ---
Weakness HPI - General Chief complaint: Weakness Stated complaint: altered mental status, abn labs Time Seen by Provider: 12/21/19 11:02 Source: patient, RN notes reviewed, old records reviewed Mode of arrival: EMS Limitations: no limitations, physical limitation - History of Present Illness Initial comments: This is a 69-year-old female who presents from a local senior care with complaints of generalized weakness this morning. She also nausea vomiting for past 2 days and apparent history of a failure. No reports of fevers chills or sweats. No reports of diarrhea. No other complaints or modifying factors at this time MD Complaint: generalized weakness - Related Data Home Medications Medication Instructions Recorded Confirmed Anastrozole [Arimidex] 1 mg PO DAILY@89909/30/14 12/21/19 Sennosides [Senna] 8.6 mg PO BID@899,209904/02/18 12/21/19 Pantoprazole [Protonix] 40 mg PO DAILY@59907/02/18 12/21/19 Ferrous Sulfate [Iron (65 MG 325 mg PO DAILY@89908/16/18 12/21/19 Elemental)] Metoprolol Tartrate [Lopressor] 25 mg PO BID@09,209908/16/18 12/21/19 Ergocalciferol (Vitamin D2) 50,000 unit PO Q14D@89907/19/19 12/21/19 [Drisdol] Acetaminophen [Tylenol] 650 mg PO Q4H PRN 08/24/19 12/21/19 Dextran 70/Hypromellose [Genteal 1 drop BOTH EYES Q12H PRN 08/24/19 12/21/19 Tears 0.1%-0.3% Drop] Folic Acid 1 mg PO DAILY@89908/24/19 12/21/19 Lactulose 20 gm PO BID@899,209908/24/19 12/21/19 Multivitamins, Thera [Multivitamin 1 tab PO DAILY@149908/24/19 12/21/19 (formulary)] Rifaximin [Xifaxan] 550 mg PO BID@0900,209908/24/19 12/21/19 Spironolactone 50 mg PO DAILY@89908/24/19 12/21/19 Thiamine [Vitamin B-1] 100 mg PO DAILY@1500 08/24/19 12/21/19 Melatonin 10 mg PO HS PRN 10/25/19 12/21/19 Ondansetron [Zofran] 4 mg PO TID PRN 10/25/19 12/21/19 Oxymetazoline 0.05% Nasl [place] 1 spray NASAL Q15M PRN MDD 3 DOSES 10/25/19 12/21/19 [Afrin 0.05% Nasal [place]] Gabapentin [Neurontin] 200 mg PO TID@0900,1500,2100 12/21/19 12/21/19 Insulin Aspart [Insulin Aspart 4 unit SQ AC-TID 12/21/19 12/21/19 Flexpen] Insulin Aspart [Insulin Aspart See Protocol SQ AC-TID 12/21/19 12/21/19 Flexpen] Torsemide [Demadex] 20 mg PO BID@0600,1500 12/21/19 12/21/19 Previous Rx's Medication Instructions Recorded HYDROcodone/APAP 10-325MG [[place] 1 tab PO Q6HR PRN 3 Days #12 tab 11/02/19 10-325] metOLazone [Zaroxolyn] 5 mg PO DAILY #10 tablet 11/02/19 Allergies Allergy/AdvReac Type Severity Reaction Status Date / Time cephalexin [From Keflex] Allergy Unknown Verified 12/21/19 11:42 duloxetine [From Cymbalta] Allergy Unknown Verified 12/21/19 11:42 Penicillins Allergy Rash/Hives Verified 12/21/19 11:42 phenobarbital Allergy Unknown Verified 12/21/19 11:42 phenytoin sodium Allergy Unknown Verified 12/21/19 11:42 [From Dilantin] phenytoin sodium extended Allergy Unknown Verified 12/21/19 11:42 [From Dilantin] primidone [From Mysoline] Allergy Unknown Verified 12/21/19 11:42 codeine AdvReac Nausea & Verified 12/21/19 11:42 Vomiting Review of Systems ROS Statement: Those systems with pertinent positive or pertinent negative responses have been documented in the HPI. ROS Other: All systems not noted in ROS Statement are negative. Past Medical History Past Medical History: Cancer, Heart Failure, COPD, Diabetes Mellitus, Fibromyalgia, Hyperlipidemia, Hypertension, Renal Disease, Rheumatoid Arthritis (RA), Seizure Disorder, Supraventricular Tachycardia (SVT) Additional Past Medical History / Comment(s): Breast cancer right-sided post mastectomy followed by chemotherapy, is independent diabetes mellitus type 2, peripheral neuropathy related to diabetes, COPD, liver cirrhosis, hypertension, hyperlipidemia, fibromyalgia, chronic kidney disease, rheumatoid arthritis, seizure disorder, history of SVT, diabetic peripheral neuropathy, chronic anxiety and depression, morbid obesity with a BMI of 58.5, previous history of GI bleed, diverticular disease, history of hepatic encephalopathy History of Any Multi-Drug Resistant Organisms: VRE Date of last positivie culture/infection: 05/11/18 MDRO Source:: VRE URINE Past Surgical History: Adenoidectomy, Appendectomy, Breast Surgery, Cholecystectomy, Hysterectomy, Orthopedic Surgery, Tonsillectomy, Tubal Ligation Additional Past Surgical History / Comment(s): masectomy right, ganglion cyst right hand, total hysterectomy (hx of tubal pregnancies), lower teeth extracted. Past Anesthesia/Blood Transfusion Reactions: No Reported Reaction Past Psychological History: Anxiety, Depression Smoking Status: Former smoker Past Alcohol Use History: None Reported Past Drug Use History: None Reported - Past Family History Father Family Medical History: Cancer, CVA/TIA Additional Family Medical History / Comment(s): 2000 from lung cancer Mother Family Medical History: Cancer, Dementia Additional Family Medical History / Comment(s): 2014 at age 86. Oral & Breast cancer Brother(s) Family Medical History: Asthma, Diabetes Mellitus, Fibromyalgia, Osteoarthritis (OA) Additional Family Medical History / Comment(s): Obesity. Joint replacements General Exam - General Exam Comments Initial Comments: Is a well-developed well-nourished awake alert but lethargic female Limitations: no limitations, physical limitation General appearance: alert, in no apparent distress Head exam: Present: atraumatic, normocephalic, normal inspection Eye exam: Present: normal appearance, PERRL, EOMI. Absent: scleral icterus, conjunctival injection, periorbital swelling ENT exam: Present: mucous membranes dry Neck exam: Present: normal inspection. Absent: tenderness, meningismus, lymphadenopathy Respiratory exam: Present: normal lung sounds bilaterally. Absent: respiratory distress, wheezes, rales, rhonchi, stridor Cardiovascular Exam: Present: regular rate, normal rhythm, normal heart sounds. Absent: systolic murmur, diastolic murmur, rubs, gallop, clicks GI/Abdominal exam: Present: soft, tenderness (Tennis palpation of the right lower quadrant region), normal bowel sounds. Absent: distended, guarding, rebound, rigid Extremities exam: Present: normal inspection, full ROM, normal capillary refill. Absent: tenderness, pedal edema, joint swelling, calf tenderness Back exam: Present: normal inspection Neurological exam: Present: alert, oriented X3, CN II-XII intact Psychiatric exam: Present: normal affect, normal mood Skin exam: Present: warm, dry, intact, normal color. Absent: rash Course Vital Signs 12/21/19 12/21/19 12/21/19 11:12 12:20 13:00 Temperature 97.8 F Pulse Rate 89 84 84 Respiratory 20 16 15 Rate Blood Pressure 141/81 141/73 145/78 O2 Sat by Pulse 98 97 94 L Oximetry 12/21/19 14:00 Temperature Pulse Rate 80 Respiratory 15 Rate Blood Pressure 161/98 O2 Sat by Pulse 95 Oximetry EKG Findings - EKG Results: EKG: interpreted by ERMRadha, sinus rhythm (Sinus rhythm a 92. Interval 192 QRS duration 160 daily since QTC 456/563 occasional PAC right bundle-branch and left anterior fascicular block noted) Medical Decision Making - Medical Decision Making I did discuss findings patient and with Dr. Carlson the patient will be admitted. Initially the GI bleeding was undetected. GI will be consulted. - Lab Data Result diagrams: 12/21/19 11:45 12/21/19 11:45 Lab Results 12/21/19 12/21/19 12/21/19 Range/Units 11:45 11:45 11:45 WBC 5.9 (3.8-10.6) k/uL RBC 3.00 L (3.80-5.40) m/uL Hgb 9.0 L (11.4-16.0) gm/dL Hct 28.5 L (34.0-46.0) % MCV 95.3 (80.0-100.0) fL MCH 29.9 (25.0-35.0) pg MCHC 31.4 (31.0-37.0) g/dL RDW 16.5 H (11.5-15.5) % Plt Count 100 L (150-450) k/uL Neutrophils % 72 % Lymphocytes % 19 % Monocytes % 5 % Eosinophils % 1 % Basophils % 0 % Neutrophils # 4.2 (1.3-7.7) k/uL Lymphocytes # 1.1 (1.0-4.8) k/uL Monocytes # 0.3 (0-1.0) k/uL Eosinophils # 0.1 (0-0.7) k/uL Basophils # 0.0 (0-0.2) k/uL Poikilocytosis Slight Anisocytosis Slight PT 11.2 (9.0-12.0) sec INR 1.1 (<1.2) APTT 22.3 (22.0-30.0) sec Sodium (137-145) mmol/L Potassium (3.5-5.1) mmol/L Chloride (98-107) mmol/L Carbon Dioxide (22-30) mmol/L Anion Gap mmol/L BUN (7-17) mg/dL Creatinine (0.52-1.04) mg/dL Est GFR (CKD-EPI)AfAm (>60 ml/min/1.73 sqM) Est GFR (CKD-EPI)NonAf (>60 ml/min/1.73 sqM) Glucose (74-99) mg/dL Plasma Lactic Acid Vasile (0.7-2.0) mmol/L Calcium (8.4-10.2) mg/dL Magnesium (1.6-2.3) mg/dL Total Bilirubin (0.2-1.3) mg/dL AST (14-36) U/L ALT (4-34) U/L Alkaline Phosphatase (38-126) U/L Creatine Kinase (30-135) U/L Troponin I (0.000-0.034) ng/mL NT-Pro-B Natriuret Pep pg/mL Total Protein (6.3-8.2) g/dL Albumin (3.5-5.0) g/dL Urine Color Yellow Urine Appearance Cloudy H (Clear) Urine pH 5.5 (5.0-8.0) Ur Specific [place] 1.011 (1.001-1.035) Urine Protein Negative (Negative) Urine Glucose (UA) Negative (Negative) Urine Ketones Negative (Negative) Urine Blood Moderate H (Negative) Urine Nitrite Negative (Negative) Urine Bilirubin Negative (Negative) Urine Urobilinogen <2.0 (<2.0) mg/dL Ur Leukocyte Esterase Large H (Negative) Urine RBC 1 (0-5) /hpf Urine WBC 61 H (0-5) /hpf Ur Squamous Epith Cells 2 (0-4) /hpf Urine Bacteria Rare H (None) /hpf Hyaline Casts 10 H (0-2) /lpf Urine Mucus Rare H (None) /hpf 12/21/19 12/21/19 12/21/19 Range/Units 11:45 11:45 11:45 WBC (3.8-10.6) k/uL RBC (3.80-5.40) m/uL Hgb (11.4-16.0) gm/dL Hct (34.0-46.0) % MCV (80.0-100.0) fL MCH (25.0-35.0) pg MCHC (31.0-37.0) g/dL RDW (11.5-15.5) % Plt Count (150-450) k/uL Neutrophils % % Lymphocytes % % Monocytes % % Eosinophils % % Basophils % % Neutrophils # (1.3-7.7) k/uL Lymphocytes # (1.0-4.8) k/uL Monocytes # (0-1.0) k/uL Eosinophils # (0-0.7) k/uL Basophils # (0-0.2) k/uL Poikilocytosis Anisocytosis PT (9.0-12.0) sec INR (<1.2) APTT (22.0-30.0) sec Sodium 139 (137-145) mmol/L Potassium 4.0 (3.5-5.1) mmol/L Chloride 103 (98-107) mmol/L Carbon Dioxide 26 (22-30) mmol/L Anion Gap 10 mmol/L BUN 102 H* (7-17) mg/dL Creatinine 1.96 H (0.52-1.04) mg/dL Est GFR (CKD-EPI)AfAm 30 (>60 ml/min/1.73 sqM) Est GFR (CKD-EPI)NonAf 26 (>60 ml/min/1.73 sqM) Glucose 194 H (74-99) mg/dL Plasma Lactic Acid Vasile 1.3 (0.7-2.0) mmol/L Calcium 9.2 (8.4-10.2) mg/dL Magnesium 2.5 H (1.6-2.3) mg/dL Total Bilirubin 1.5 H (0.2-1.3) mg/dL AST 33 (14-36) U/L ALT 18 (4-34) U/L Alkaline Phosphatase 74 (38-126) U/L Creatine Kinase 84 (30-135) U/L Troponin I <0.012 (0.000-0.034) ng/mL NT-Pro-B Natriuret Pep pg/mL Total Protein 7.4 (6.3-8.2) g/dL Albumin 4.0 (3.5-5.0) g/dL Urine Color Urine Appearance (Clear) Urine pH (5.0-8.0) Ur Specific [place] (1.001-1.035) Urine Protein (Negative) Urine Glucose (UA) (Negative) Urine Ketones (Negative) Urine Blood (Negative) Urine Nitrite (Negative) Urine Bilirubin (Negative) Urine Urobilinogen (<2.0) mg/dL Ur Leukocyte Esterase (Negative) Urine RBC (0-5) /hpf Urine WBC (0-5) /hpf Ur Squamous Epith Cells (0-4) /hpf Urine Bacteria (None) /hpf Hyaline Casts (0-2) /lpf Urine Mucus (None) /hpf 12/21/19 Range/Units 11:45 WBC (3.8-10.6) k/uL RBC (3.80-5.40) m/uL Hgb (11.4-16.0) gm/dL Hct (34.0-46.0) % MCV (80.0-100.0) fL MCH (25.0-35.0) pg MCHC (31.0-37.0) g/dL RDW (11.5-15.5) % Plt Count (150-450) k/uL Neutrophils % % Lymphocytes % % Monocytes % % Eosinophils % % Basophils % % Neutrophils # (1.3-7.7) k/uL Lymphocytes # (1.0-4.8) k/uL Monocytes # (0-1.0) k/uL Eosinophils # (0-0.7) k/uL Basophils # (0-0.2) k/uL Poikilocytosis Anisocytosis PT (9.0-12.0) sec INR (<1.2) APTT (22.0-30.0) sec Sodium (137-145) mmol/L Potassium (3.5-5.1) mmol/L Chloride (98-107) mmol/L Carbon Dioxide (22-30) mmol/L Anion Gap mmol/L BUN (7-17) mg/dL Creatinine (0.52-1.04) mg/dL Est GFR (CKD-EPI)AfAm (>60 ml/min/1.73 sqM) Est GFR (CKD-EPI)NonAf (>60 ml/min/1.73 sqM) Glucose (74-99) mg/dL Plasma Lactic Acid Vasile (0.7-2.0) mmol/L Calcium (8.4-10.2) mg/dL Magnesium (1.6-2.3) mg/dL Total Bilirubin (0.2-1.3) mg/dL AST (14-36) U/L ALT (4-34) U/L Alkaline Phosphatase (38-126) U/L Creatine Kinase (30-135) U/L Troponin I (0.000-0.034) ng/mL NT-Pro-B Natriuret Pep 628 pg/mL Total Protein (6.3-8.2) g/dL Albumin (3.5-5.0) g/dL Urine Color Urine Appearance (Clear) Urine pH (5.0-8.0) Ur Specific [place] (1.001-1.035) Urine Protein (Negative) Urine Glucose (UA) (Negative) Urine Ketones (Negative) Urine Blood (Negative) Urine Nitrite (Negative) Urine Bilirubin (Negative) Urine Urobilinogen (<2.0) mg/dL Ur Leukocyte Esterase (Negative) Urine RBC (0-5) /hpf Urine WBC (0-5) /hpf Ur Squamous Epith Cells (0-4) /hpf Urine Bacteria (None) /hpf Hyaline Casts (0-2) /lpf Urine Mucus (None) /hpf - Radiology Data Radiology results: report reviewed (Imaging reviewed no acute findings.), image reviewed Disposition Clinical Impression: GI bleed, Anemia, Intractable vomiting, Dehydration Disposition: ADMITTED IP TO THIS [facility] Condition: Fair Referrals: Tom Han MD [Primary Care Provider] - 1-2 days
[2019-12-21 12:14] LABS: Anisocytosis Slight; Basophils % (A) 0 %; Eosinophils # (A) 0.1 k/uL (0-0.7); Eosinophils % (A) 1 %; HCT 28.5 % (34.0-46.0); Lymphocytes # (A) 1.1 k/uL (1.0-4.8); Lymphocytes % (A) 19 %; MCH 29.9 pg (25.0-35.0); MCHC 31.4 g/dL (31.0-37.0); MCV 95.3 fL (80.0-100.0); Mean Platelet Volume 8.3; Monocytes # (A) 0.3 k/uL (0-1.0); Monocytes % (A) 5 %; Neutrophils # (A) 4.2 k/uL (1.3-7.7); Neutrophils % (A) 72 %; Platelet Count 100 k/uL (150-450); Poikilocytosis Slight; RDW 16.5 % (11.5-15.5); WBC 5.9 k/uL (3.8-10.6)
[2019-12-21 12:23] LABS: Calcium 9.2 mg/dL (8.4-10.2); Magnesium 2.5 mg/dL (1.6-2.3); Total Bilirubin 1.5 mg/dL (0.2-1.3); Total Protein 7.4 g/dL (6.3-8.2)
[2019-12-21 12:27] LABS: Appearance,Urine Cloudy (Clear); Bacteria,Urine Rare /hpf; Bilirubin,Urine Negative (Negative); Blood,Urine Moderate (Negative); Color,Urine Yellow; Glucose,Urine (UA) Negative (Negative); Hyaline Casts,Urine 10 /lpf (0-2); Ketones,Urine Negative (Negative); Leukocyte Esterase,Urine Large (Negative); Mucus,Urine Rare /hpf; Nitrite,Urine Negative (Negative); PH, Urine 5.5 (5.0-8.0); Protein,Urine Negative (Negative); RBC,Urine 1 /hpf (0-5); Specific Gravity,Urine 1.011 (1.001-1.035); Squamous Epithelial Cell,Urine 2 /hpf (0-4); Urobilinogen,Urine <2.0 mg/dL (<2.0); WBC,Urine 61 /hpf (0-5)
[2019-12-21 12:36] LABS: INR 1.1 (<1.2); Partial Thromboplastin Time 22.3 sec (22.0-30.0); Prothrombin Time 11.2 sec (9.0-12.0)
--- NOTE | 2019-12-21 13:00 | XR ---
EXAMINATION TYPE: XR chest 2V DATE OF EXAM: 12/21/2019 CLINICAL HISTORY: Weakness. TECHNIQUE: Frontal and lateral view of the chest. COMPARISON: 10/26/2019 chest radiograph FINDINGS: The cardiomediastinal silhouette is within normal limits for size. Pulmonary vasculature i s normal. There is no focal air space opacity, pleural effusion, or pneumothorax seen. Degenerative c hanges of the spine. IMPRESSION: No acute cardiopulmonary process.
--- NOTE | 2019-12-21 14:20 | CT ---
EXAMINATION TYPE: CT abdomen pelvis wo con DATE OF EXAM: 12/21/2019 COMPARISON: CT abdomen pelvis 02/23/2018 HISTORY: pain, rectal bleeding CT DLP: 957.8 mGycm Automated exposure control for dose reduction was used. TECHNIQUE: Helical acquisition of images was performed from the lung bases through the pelvis. CONTRAST: Performed without Oral Contrast and without intravenous contrast. FINDINGS: Motion artifact of the mid abdomen somewhat limits evaluation. LUNG BASES: No pericardial or pleural effusion. Calcified coronary artery disease. LIVER: Peripheral nodular contour of the left lobe. BILIARY SYSTEM: Status post cholecystectomy. No intrahepatic or extrahepatic biliary ductal dilatatio n. PANCREAS: No peripancreatic inflammation. SPLEEN: Redemonstrated splenomegaly. ADRENALS: Normal. KIDNEYS: Motion artifact. No hydronephrosis or urolithiasis. BOWEL: No obstruction or thickening. Minimal colonic diverticulosis. No acute diverticulitis. PERITONEUM: No pneumoperitoneum. No free fluid. Fat-containing umbilical hernia. LYMPH NODES: No lymphadenopathy. PELVIS: Normal urinary bladder. Status post hysterectomy. VASCULATURE: No abdominal aortic aneurysm. Perigastric and perisplenic varices. MUSCULOSKELETAL: Degenerative changes of the spine. Grade 1 anterolisthesis of L4 on L5. Unchanged m inimal superior endplate compression deformity of L3 versus 02/23/2018 CT comparison, likely on basis of diffuse decreased osseous mineralization. IMPRESSION: 1. No acute abdominopelvic process. 2. Redemonstrated cirrhosis, splenomegaly, and perigastric and perisplenic varices.
[2019-12-21] MEDS ORDERED: NALOXONE 0.4 MG/ML 1 ML VIAL IV PRN (14:36)
[2019-12-21] MEDS: SODIUM CHLORIDE 0.9% 1,000 ML IV SCH (14:57)
[2019-12-21 19:09] LABS: Anisocytosis Slight; HCT 22.8 % (34.0-46.0); Hypochromasia Slight; MCH 30.1 pg (25.0-35.0); MCHC 31.3 g/dL (31.0-37.0); MCV 96.3 fL (80.0-100.0); Mean Platelet Volume 8.4; Poikilocytosis Slight; RBC 2.37 m/uL (3.80-5.40); RDW 16.3 % (11.5-15.5)
[2019-12-21 19:15] LABS: HGB 7.1 gm/dL (11.4-16.0)
[2019-12-21] MEDS ORDERED: FUROSEMIDE 10 MG/ML 2 ML VIAL IV ONE ×2 (20:00→20:01)
[2019-12-21 20:07] LABS: Platelet Count 76 k/uL (150-450)
[2019-12-21] MEDS ORDERED: ACETAMINOPHEN TAB 325 MG TAB PO PRN (20:20)
[2019-12-21] MEDS ORDERED: OXYMETAZOLINE 0.05% NASL SPRAY 1 SPRAY BOTTLE NASAL PRN (20:20)
[2019-12-21] MEDS ORDERED: HYDROcodone/APAP 10-325MG 1 EACH TAB PO PRN (20:29)
--- NOTE | 2019-12-21 20:50 | HP ---
HISTORY AND PHYSICAL DATE OF SERVICE: 12/21/2019 CHIEF COMPLAINT: Lower GI bleed. HISTORY OF PRESENT ILLNESS: This 69-year-old woman with a past medical history of CHF, COPD, diabetes mellitus, fibromyalgia, hyperlipidemia, hypertension, being followed by Dr. Han in the [facility] was noted to have some confusion. The patient also complained of generalized weakness and abdominal pain and the patient was taken to [facility] and admitted for further evaluation. Patient also lower gastrointestinal bleeding with some bright red blood and hemoglobin was 9 this morning and repeat hemoglobin was 7.1. Patient recommended at least 2 units of transfusion and has been admitted for further evaluation and treatment. The creatinine is 1.93. GI evaluation also has been sought. UA shows possible UTI. Cultures also have been sought and the patient also had a CT scan of the abdomen and pelvis showed no acute abdominal process and cirrhosis of the liver, splenomegaly and perigastric and perisplenic variceals also noted. There is no history of fever, rigors, chills at this time. Patient is complaining of diffuse abdominal pain, nausea. There is no guarding or rigidity. PAST MEDICAL HISTORY: History of CHF, COPD, diabetes mellitus, fibromyalgia, hypertension, hyperlipidemia. MEDICATIONS: Prior to admission include home medications are: Zaroxolyn. Zofran, melatonin, oxymetazoline, hydrocodone, Tylenol, Neurontin, insulin, Senna, Lopressor, Demadex, lactulose, vitamin B1, Aldactone, Protonix, multivitamin, iron sulfate, Desyrel and Arimidex. ALLERGIES: CEPHALEXIN, CYMBALTA, PENICILLIN, PHENOBARBITAL, CODEINE. FAMILY HISTORY: History of CVA/TIA. SOCIAL HISTORY: No history of smoking. No history of alcohol intake. REVIEW OF SYSTEMS: ENT diminished vision. Diminished hearing. Cardio system: No angina or palpitations. Respiration: Occasional cough. GI: As mentioned earlier. no dysuria NERVOUS SYSTEM: As mentioned earlier. ALLERGY/IMMUNOLOGY: No asthma or hayfever. MUSCULOSKELETAL: As mentioned earlier. HEMATOLOGY/ONCOLOGY: No history of anemia, otherwise mentioned earlier. ENDOCRINE: No history of diabetes or hypothyroidism. CONSTITUTIONAL: As mentioned earlier. DERMATOLOGY: Negative. RHEUMATOLOGY negative. PSYCHIATRY as mentioned earlier. PHYSICAL EXAMINATION: Alert and oriented x3. Pulse is 88. Blood pressure 132/56, respiration 18, temperature 98.2, pulse ox 98% on room air. HEENT: Conjunctivae normal. Oral mucosa moist. NECK is no jugular venous distention. No carotid bruit. No lymph node enlargement. CARDIOVASCULAR: S1, S2. No S3, no S4. RESPIRATORY: Breath sounds diminished in the bases. A few scattered rhonchi and crackles. ABDOMEN: Soft. Mild diffuse tenderness present. No mass palpable. No guarding. No rigidity. Bowel sounds diminished. LEGS: No edema. No swelling. NERVOUS SYSTEM: Higher functions as mentioned earlier. Moves all 4 limbs. No focal motor or sensory deficits. LYMPHATICS: No lymph nodes palpable in the neck, axillae or groin. SKIN: No ulcers, rashes or bleeding. JOINTS: No active deforming arthropathy. LABS: Hemoglobin is 9 and platelets are 100. Sodium 139, potassium 4, creatinine is 1.96 and total bilirubin is 1.5. UA noted. ASSESSMENT: 1. Acute lower gastrointestinal bleeding, possibly diverticular bleed. Rule out variceal bleed. 2. Acute blood loss anemia for transfusion. 3. Thrombocytopenia. 4. Increased creatinine with chronic kidney disease stage 3. 5. Elevated total bilirubin secondary to chronic liver disease. 6. Acute urinary tract infection present on admission. 7. History of congestive heart failure, ejection fraction unknown. 8. History of chronic obstructive pulmonary disease. 9. Diabetes mellitus type 2. 10.Fibromyalgia. 11.Hypertension. 12.Hyperlipidemia. 13.Rheumatoid arthritis. 14.History of seizure disorder. 15.History of supraventricular tachycardia. 16.History of breast cancer with right-sided mastectomy and chemotherapy. 17.Peripheral neuropathy. 18.History of chronic anxiety. 19.History of VRE in the urine. 20.History of breast surgery. 21.History of cholecystectomy. 22.History of mastectomy. 23.FULL CODE. RECOMMENDATIONS AND DISCUSSION: This 69-year-old woman who presented with multiple complex medical issues, we will monitor the patient closely. I would recommend 2 units transfusion and gastroenterology consultation, possible endoscopes. Otherwise, monitor closely and repeat labs. I would also recommend urine culture. Empiric antibiotics. The previous cultures have grown multiple organisms, including E coli and VRE. E coli has been poly sensitive. Prognosis guarded because of multiple complex medical issues. Further recommendations to follow. Otherwise, I would also recommend IV daptomycin also at this time and continue to monitor. Medication reconciliation will be done. Hold anticoagulation and antiplatelet agents. MMODL / IJN: [id number] / MTDD
[2019-12-21] MEDS ORDERED: MELATONIN 5 MG TABLET PO PRN (21:00)
[2019-12-21] MEDS: HYDROmorphone 0.5 MG/0.5 ML SYRINGE IVP PRN (21:12)
[2019-12-21] MEDS: ONDANSETRON 4 MG/2 ML VIAL IVP PRN (21:13)
[2019-12-21] MEDS: GABAPENTIN 100 MG CAP PO SCH (22:05)
[2019-12-21] MEDS: RIFAXIMIN 550 MG TABLET PO SCH (22:06)
[2019-12-21] MEDS: METOPROLOL TARTRATE 25 MG TAB PO SCH (22:06)
[2019-12-21] MEDS: PANTOPRAZOLE 40 MG/10 ML VIAL IV SCH (22:40)
[2019-12-21] MEDS: DAPTOmycin 500 MG in SODIUM CHLORIDE 0.9% 50 ML IVPB SCH (22:40)
[2019-12-22] MEDS: SODIUM CHLORIDE 0.9% 1,000 ML IV SCH ×2 (00:14→20:54)
[2019-12-22] MEDS: HYDROmorphone 0.5 MG/0.5 ML SYRINGE IVP PRN (02:15)
[2019-12-22] MEDS: TORSEMIDE 20 MG TAB PO SCH ×2 (05:49→17:57)
[2019-12-22 06:14] LABS: Glucose,Whole Blood 169 mg/dL (75-99)
[2019-12-22] MEDS: INSULIN ASPART (NovoLOG) 100 UNIT/ML VIAL SQ SCH ×4 (06:16→22:11)
[2019-12-22 09:15] LABS: Anisocytosis Slight; Basophils % (A) 1 %; Eosinophils # (A) 0.1 k/uL (0-0.7); Eosinophils % (A) 2 %; HCT 25.6 % (34.0-46.0); HGB 8.2 gm/dL (11.4-16.0); Hypochromasia Moderate; Lymphocytes % (A) 23 %; MCH 31.3 pg (25.0-35.0); MCHC 31.9 g/dL (31.0-37.0); MCV 98.3 fL (80.0-100.0); Macrocytosis Slight; Mean Platelet Volume 8.4; Monocytes # (A) 0.3 k/uL (0-1.0); Monocytes % (A) 7 %; Neutrophils # (A) 2.9 k/uL (1.3-7.7); Neutrophils % (A) 64 %; Poikilocytosis Slight; RDW 16.3 % (11.5-15.5); WBC 4.5 k/uL (3.8-10.6)
[2019-12-22 09:18] LABS: Platelet Count 87 k/uL (150-450)
[2019-12-22 09:32] LABS: Potassium 3.7 mmol/L (3.5-5.1)
[2019-12-22] MEDS: METOPROLOL TARTRATE 25 MG TAB PO SCH ×2 (09:58→20:53)
[2019-12-22] MEDS: GABAPENTIN 100 MG CAP PO SCH ×3 (09:58→20:53)
[2019-12-22] MEDS: PANTOPRAZOLE 40 MG/10 ML VIAL IV SCH ×2 (09:58→20:53)
[2019-12-22] MEDS: FOLIC ACID 1 MG TAB PO SCH (09:58)
[2019-12-22] MEDS: SPIRONOLACTONE 25 MG TAB PO SCH (09:58)
[2019-12-22] MEDS: ANASTROZOLE 1 MG TAB PO SCH (09:59)
[2019-12-22] MEDS: metOLazone 5 MG TAB PO SCH (09:59)
[2019-12-22] MEDS: RIFAXIMIN 550 MG TABLET PO SCH ×2 (10:00→20:53)
[2019-12-22 12:09] LABS: Glucose,Whole Blood 174 mg/dL (75-99)
--- NOTE | 2019-12-22 17:05 | PN ---
PROGRESS NOTE DATE OF SERVICE: 12/22/2019 This 69-year-old woman was admitted with lower gastrointestinal bleed had blood-loss anemia. Patient had multiple antibodies and transfusions pending at this time. The patient is mildly confused. The patient also had acute renal failure also. The hemoglobin went down to 7.1 from 9. Today it is 8.2. The patient also has some thrombocytopenia as well. Patient being closely monitored. Patient also had features of UTI. The chest x-ray which was reviewed personally by me showed no acute cardiorespiratory illness. The abdominal and pelvis CAT scan was done. CT scan showed no acute process, cirrhosis, splenomegaly, perigastric and splenic veins also noted indicating chronic liver disease. Past medical history reviewed. REVIEW OF SYSTEMS: Could not be taken the patient is confused. CURRENT MEDICATIONS: Reviewed, noted and include: 1. Tylenol. 2. [place]. 3. Arimidex. 4. Daptomycin. 5. Vitamin B2. 6. Folic acid. 7. Neurontin. 8. Dilaudid. 9. NovoLog. 10.Melatonin. 11.Lopressor. 12.Multivitamins. 13.Narcan. 14.Zofran. 15.Afrin. 16.Protonix. 17.Xifaxan. 18.Aldactone. 19.Vitamin B1. 20.Demadex. PHYSICAL EXAM: Patient is conscious, confused. Pulse 89, blood pressure 119/59, respiration 20, temperature 97.8. Pulse ox 100% on room air. HEENT: Conjunctivae normal. NECK: No JVD. CARDIOVASCULAR: S1, S2 muffled. RESPIRATORY: Breath sounds diminished in the bases. Scattered rhonchi and crackles. ABDOMEN: Soft, obese, nontender. LEGS: Minimal edema. NERVOUS SYSTEM: Diffusely weak. LABS: WBC 4.2, hemoglobin is 8.2, platelets 87. Ammonia is not available. Other labs are noted. ASSESSMENT: 1. Acute lower gastrointestinal bleeding, possibly diverticular bleed. Rule out variceal bleed. 2. Acute blood loss anemia for transfusion. 3. Change in mental status, possible metabolic encephalopathy, rule out hepatic encephalopathy. 4. Thrombocytopenia. 5. Increased creatinine with chronic kidney stage 3. 6. Elevated total bilirubin secondary to chronic liver disease. 7. Acute urinary tract infection present on admission. 8. History of congestive heart failure, ejection fraction unknown. 9. History of chronic obstructive pulmonary disease. 10.Diabetes mellitus type 2. 11.Fibromyalgia. 12.Hypertension. 13.Hyperlipidemia. 14.History of rheumatoid arthritis. 15.History of seizure disorder. 16.History of supraventricular tachycardia. 17.History of breast cancer with right sided mastectomy with chemotherapy. 18.Peripheral neuropathy. 19.History of chronic anxiety. 20.History of VRE in the urine. 21.History of breast surgery. 22.History of cholecystectomy. 23.History of mastectomy. 24.FULL CODE. RECOMMENDATIONS AND DISCUSSION: Recommend to continue current medications, symptomatic treatment. Otherwise, monitor hemoglobin closely. I would recommend transfuse at least one unit because of symptomatic anemia. I would also recommend serum ammonia checking and continue to monitor. Continue the IV antibiotics. Follow the cultures. Prognosis guarded because of multiple complex medical issues. Further recommendations to follow. See orders for details. Discussed with staff at length. DHAVAL / OLGAN: [id number] /
[2019-12-22 17:27] LABS: Glucose,Whole Blood 183 mg/dL (75-99)
[2019-12-22] MEDS: MULTIVITAMINS, THERA 1 EACH TAB PO SCH (17:57)
[2019-12-22] MEDS: THIAMINE 100 MG TAB PO SCH (17:57)
--- NOTE | 2019-12-22 19:36 | P.CONS ---
History of Present Illness - Reason for Consult Consult date: 12/22/19 Anemia, cirrhosis Requesting physician: Porsche Alexander - Chief Complaint Weakness - History of Present Illness 69-year-old female with multiple medical comorbidities including hypertension, hyperlipidemia, COPD, fibromyalgia, diverticulosis, hiatal hernia, prior ho spitalizations for GI bleed who presented to the hospital for evaluation of weakness. The patient was noted to have increasing weakness and lethargy at her nursing facility and came to the hospital for further evaluation. Currently she is being treated for possible urinary tract infection. The patient had previously been seen at [facility] and at that time discharged on lactulose and rifaximin therapy for encephalopathy and underlying liver disease. Currentlyhis medications are not listed on her home medications. Of note the patient is somewhat lethargic and a poor historian. The patient had previously been seen in August due to concerns over a GI bleed. Patient had extensive e ndoscopic evaluation in 08/2019 with EGD significant for mild gastritis and a small hiatal hernia with no GI bleeding noted and colonoscopy at that time significant for diverticulosis with a fair prep as there was a large amount of old blood and clots throughout the colon. Patient was offered repeat colonoscopy but refuses she did not want to have to perform the prep. She underwent video capsule endoscopy which showed old blood in the colon without active bleeding. Laboratory evaluation on presentation significant for WBC 4.5, hemoglobin 8.2, platelet count 87,000. Computed tomography scan of the abdomen negative for any acute intra-abdominal process with a cirrhotic-appearing liverwith periplenic and perigastric varices noted. She had a markedly elevated ammonia level on presentation at 167. Review of Systems REVIEW OF SYSTEMS: CONSTITUTIONAL: Denies any fevers, chills, weight change but she did present for weakness and fatigue. CARDIOVASCULAR: Denies any chest pain, palpitations high or low blood pressures RESPIRATORY: Denies any shortness of breath, hemoptysis or cough. GENITOURINARY: No dysuria or hematuria, possible urinary tract infection. MUSCULOSKELETAL: No focalweakness reported. SKIN: Denies any new rashes or lesions, jaundice or pallor. PSYCHIATRIC: Denies any depression or anxiety. NEUROLOGY: Denies headache, denies any new focal deficits, somewhat confused. EARS/NOSE/THROAT: No recent hearing change, congestion, nasal discharge or sore throat. EYES: No pain in eyes, discharge or change in vision. GASTROINTESTINAL: As per HPI. Past Medical History Past Medical History: Cancer, Heart Failure, COPD, Diabetes Mellitus, Fibromyalgia, Hyperlipidemia, Hypertension, Renal Disease, Rheumatoid Arthritis (RA), Seizure Disorder, Supraventricular Tachycardia (SVT) Additional Past Medical History / Comment(s): Breast cancer right-sided post mastectomy followed by chemotherapy, is independent diabetes mellitus type 2, peripheral neuropathy related to diabetes, COPD, liver cirrhosis, hypertension, hyperlipidemia, fibromyalgia, chronic kidney disease, rheumatoid arthritis, seizure disorder, history of SVT, diabetic peripheral neuropathy, chronic anxiety and depression, morbid obesity with a BMI of 58.5, previous history of GI bleed, diverticular disease, history of hepatic encephalopathy History of Any Multi-Drug Resistant Organisms: VRE Year Discovered:: 05/11/18 MDRO Source:: VRE URINE Past Surgical History: Adenoidectomy, Appendectomy, Breast Surgery, Cholecystectomy, Hysterectomy, Orthopedic Surgery, Tonsillectomy, Tubal Ligation Additional Past Surgical History / Comment(s): masectomy right, ganglion cyst right hand, total hysterectomy (hx of tubal pregnancies), lower teeth extracted. Past Anesthesia/Blood Transfusion Reactions: No Reported Reaction Past Psychological History: Anxiety, Depression Additional Psychological History / Comment(s): Pt currently is at [facility] for rehab. She needs assist with ADLS except feeds self. She states up until just lately she was getting up with a walker some.Her daughter lives with her. No experience. Did not work outside of the home. No international travel. . There is a pet dog in the home. No alcohol use Smoking Status: Former smoker Past Alcohol Use History: None Reported Additional Past Alcohol Use History / Comment(s): Pt started smoking in 1971 and qut in December 2017. Per patient she smoked 1-2 cigarettes a day after meals. Past Drug Use History: None Reported - Past Family History Father Family Medical History: Cancer, CVA/TIA Additional Family Medical History / Comment(s): 2000 from lung cancer Mother Family Medical History: Cancer, Dementia Additional Family Medical History / Comment(s): 2014 at age 86. Oral & Breast cancer Brother(s) Family Medical History: Asthma, Diabetes Mellitus, Fibromyalgia, Osteoarthritis (OA) Additional Family Medical History / Comment(s): Obesity. Joint replacements Medications and Allergies Home Medications Medication Instructions Recorded Confirmed Type Anastrozole [Arimidex] 1 mg PO DAILY@89909/30/14 12/21/19 History Sennosides [Senna] 8.6 mg PO BID@899,209904/02/18 12/21/19 History Pantoprazole [Protonix] 40 mg PO DAILY@59907/02/18 12/21/19 History Ferrous Sulfate [Iron (65 MG 325 mg PO DAILY@89908/16/18 12/21/19 History Elemental)] Metoprolol Tartrate [Lopressor] 25 mg PO BID@0900,209908/16/18 12/21/19 History Ergocalciferol (Vitamin D2) 50,000 unit PO Q14D@89907/19/19 12/21/19 History [Drisdol] Acetaminophen [Tylenol] 650 mg PO Q4H PRN 08/24/19 12/21/19 History Dextran 70/Hypromellose [Genteal 1 drop BOTH EYES Q12H PRN 08/24/19 12/21/19 History Tears 0.1%-0.3% Drop] Folic Acid 1 mg PO DAILY@89908/24/19 12/21/19 History Lactulose 20 gm PO BID@899,209908/24/19 12/21/19 History Multivitamins, Thera [Multivitamin 1 tab PO DAILY@149908/24/19 12/21/19 History (formulary)] Rifaximin [Xifaxan] 550 mg PO BID@0900,209908/24/19 12/21/19 History Spironolactone 50 mg PO DAILY@89908/24/19 12/21/19 History Thiamine [Vitamin B-1] 100 mg PO DAILY@149908/24/19 12/21/19 History Melatonin 10 mg PO HS PRN 10/25/19 12/21/19 History Ondansetron [Zofran] 4 mg PO TID PRN 10/25/19 12/21/19 History Oxymetazoline 0.05% Nasl [place] 1 spray NASAL Q15M PRN MDD 3 DOSES 10/25/19 12/21/19 History [Afrin 0.05% Nasal [place]] HYDROcodone/APAP 10-325MG [[place] 1 tab PO Q6HR PRN 3 Days #12 tab 11/02/19 12/21/19 Rx 10-325] metOLazone [Zaroxolyn] 5 mg PO DAILY #10 tablet 11/02/19 12/21/19 Rx Gabapentin [Neurontin] 200 mg PO TID@0900,1500,2100 12/21/19 12/21/19 History Insulin Aspart [Insulin Aspart 4 unit SQ AC-TID 12/21/19 12/21/19 History Flexpen] Insulin Aspart [Insulin Aspart See Protocol SQ AC-TID 12/21/19 12/21/19 History Flexpen] Torsemide [Demadex] 20 mg PO BID@0600,1500 12/21/19 12/21/19 History Allergies Allergy/AdvReac Type Severity Reaction Status Date / Time cephalexin [From Keflex] Allergy Unknown Verified 12/21/19 11:42 duloxetine [From Cymbalta] Allergy Unknown Verified 12/21/19 11:42 Penicillins Allergy Rash/Hives Verified 12/21/19 11:42 phenobarbital Allergy Unknown Verified 12/21/19 11:42 phenytoin sodium Allergy Unknown Verified 12/21/19 11:42 [From Dilantin] phenytoin sodium extended Allergy Unknown Verified 12/21/19 11:42 [From Dilantin] primidone [From Mysoline] Allergy Unknown Verified 12/21/19 11:42 codeine AdvReac Nausea & Verified 12/21/19 11:42 Vomiting Physical Exam Vitals: Vital Signs Temp Pulse Pulse Resp BP BP Pulse Ox 12/22/19 08:00 89 20 115/59 100 12/22/19 04:00 97.8 F 87 20 148/77 100 12/22/19 00:00 96.7 F L 87 18 118/67 100 12/21/19 20:00 97.8 F 85 24 135/67 100 12/21/19 19:52 97.8 F 85 24 135/67 100 12/21/19 19:33 88 18 132/56 98 12/21/19 19:01 88 124/76 12/21/19 18:00 88 110/61 12/21/19 17:00 98.2 F 81 16 125/92 95 12/21/19 15:29 85 18 139/52 98 12/21/19 14:00 80 15 161/98 95 12/21/19 13:00 84 15 145/78 94 L 12/21/19 12:20 84 16 141/73 97 Intake and Output 12/21/19 12/22/19 12/22/19 22:59 06:59 14:59 Intake Total 450 450 Balance 450 450 Intake: Oral 450 450 Other: Voiding Method Bedpan Bedpan Bedpan # Voids 1 2 2 # Bowel Movements 1 Weight 108.862 kg 101.5 kg 101.5 kg On physical examination, patient appears comfortable in no apparent distress. HEAD: Normocephalic, atraumatic. EYES: No scleral icterus. No conjunctival injection. MOUTH: No lesions, tongue midline. NECK: Trachea midline, no gross abnormalities. CHEST: Clear to auscultation with no wheezing or rhonchi appreciated. HEART: S1-S2 appreciated. ABDOMEN: Soft, obese. Bowel sounds are positive. No organomegaly. No guarding or rigidity. EXTREMITIES: No pedal edema. SKIN: No rashes, no jaundice. NEUROLOGIC: Alert and oriented to person. Results CBC & Chem 7: 12/22/19 07:42 12/22/19 07:42 Labs: Abnormal Lab Results - Last 24 Hours (Table) 12/21/19 12/21/19 12/21/19 Range/Units 11:45 11:45 11:45 RBC 3.00 L (3.80-5.40) m/uL Hgb 9.0 L (11.4-16.0) gm/dL Hct 28.5 L (34.0-46.0) % RDW 16.5 H (11.5-15.5) % Plt Count 100 L (150-450) k/uL Chloride (98-107) mmol/L BUN 102 H* (7-17) mg/dL Creatinine 1.96 H (0.52-1.04) mg/dL Glucose 194 H (74-99) mg/dL POC Glucose (mg/dL) (75-99) mg/dL Magnesium 2.5 H (1.6-2.3) mg/dL Total Bilirubin 1.5 H (0.2-1.3) mg/dL Urine Appearance Cloudy H (Clear) Urine Blood Moderate H (Negative) Ur Leukocyte Esterase Large H (Negative) Urine WBC 61 H (0-5) /hpf Urine Bacteria Rare H (None) /hpf Hyaline Casts 10 H (0-2) /lpf Urine Mucus Rare H (None) /hpf Crossmatch 12/21/19 12/21/19 12/22/19 Range/Units 17:40 20:12 06:13 RBC 2.37 L (3.80-5.40) m/uL Hgb 7.1 L D (11.4-16.0) gm/dL Hct 22.8 L (34.0-46.0) % RDW 16.3 H (11.5-15.5) % Plt Count 76 L (150-450) k/uL Chloride (98-107) mmol/L BUN (7-17) mg/dL Creatinine (0.52-1.04) mg/dL Glucose (74-99) mg/dL POC Glucose (mg/dL) 169 H (75-99) mg/dL Magnesium (1.6-2.3) mg/dL Total Bilirubin (0.2-1.3) mg/dL Urine Appearance (Clear) Urine Blood (Negative) Ur Leukocyte Esterase (Negative) Urine WBC (0-5) /hpf Urine Bacteria (None) /hpf Hyaline Casts (0-2) /lpf Urine Mucus (None) /hpf Crossmatch See Detail 12/22/19 12/22/19 Range/Units 07:42 07:42 RBC 2.60 L (3.80-5.40) m/uL Hgb 8.2 L (11.4-16.0) gm/dL Hct 25.6 L (34.0-46.0) % RDW 16.3 H (11.5-15.5) % Plt Count 87 L (150-450) k/uL Chloride 108 H (98-107) mmol/L BUN 82 H (7-17) mg/dL Creatinine 1.78 H (0.52-1.04) mg/dL Glucose 154 H (74-99) mg/dL POC Glucose (mg/dL) (75-99) mg/dL Magnesium (1.6-2.3) mg/dL Total Bilirubin (0.2-1.3) mg/dL Urine Appearance (Clear) Urine Blood (Negative) Ur Leukocyte Esterase (Negative) Urine WBC (0-5) /hpf Urine Bacteria (None) /hpf Hyaline Casts (0-2) /lpf Urine Mucus (None) /hpf Crossmatch Microbiology - Last 24 Hours (Table) 12/21/19 11:45 Urine Culture - Preliminary Urine,Voided CT scan - abdomen: report reviewed (computed tomography scan of the abdomen and pelvis with no acute intra-abdominalfindings cirrhotic appearing liver with varices noted on the spleen and stomach.) Assessment and Plan (1) Cirrhosis Narrative/Plan: 69-year-old female with multiple medical comorbidities who presented to the hospital due to altered mental status. Currently being treated for urinary tract infection. She was also found to have markedly elevated ammonia of 167 on presentation. patient had previously been on lactulose and rifaximin therapy, currently not listed as one of her home medications. Extensive endoscopic evaluation for GI bleed in 08/2019 with EGD with findings of hiatal hernia and gastritis, colonoscopy with findings of diverticulosis and clots throughout the colon prohibiting complete visualization of the mucosa and video capsule endoscopy with findings of old blood in the colon with no active bleeding. No varices were seen at that time. Current Visit: Yes Status: Acute Code(s): K74.60 - UNSPECIFIED CIRRHOSIS OF LIVER SNOMED Code(s): 09550096 (2) Anemia Current Visit: Yes Status: Acute Code(s): D64.9 - ANEMIA, UNSPECIFIED SNOMED Code(s): 090251580 (3) Encephalopathy Narrative/Plan: likely multifactorial and secondary to the urinary tract infection as well as underlying hepatic encephalopathy. Current Visit: No Status: Acute Code(s): G93.40 - ENCEPHALOPATHY, UNSPECIFIED SNOMED Code(s): 28213029 Plan: supportive care Clear liquid diet Monitor for signs or symptoms of GI bleeding Continue to monitor CBC and transfuse as needed Continue Protonix therapy No plan for endoscopic evaluation at this time Continue rifaximin therapy Lactulose added, titrated for 3-4 bowel movements daily Continue monitor clinically Thank you for allowing us to participate in the care of the patient
[2019-12-22 20:28] LABS: Anisocytosis Slight; Basophils % (A) 1 %; Eosinophils # (A) 0.1 k/uL (0-0.7); Eosinophils % (A) 3 %; HCT 24.9 % (34.0-46.0); HGB 7.9 gm/dL (11.4-16.0); Hypochromasia Slight; Lymphocytes % (A) 23 %; MCH 30.5 pg (25.0-35.0); MCHC 31.7 g/dL (31.0-37.0); MCV 96.4 fL (80.0-100.0); Mean Platelet Volume 8.6; Monocytes # (A) 0.3 k/uL (0-1.0); Monocytes % (A) 7 %; Neutrophils # (A) 2.8 k/uL (1.3-7.7); Neutrophils % (A) 63 %; Poikilocytosis Slight; RBC 2.58 m/uL (3.80-5.40); RDW 16.3 % (11.5-15.5); WBC 4.5 k/uL (3.8-10.6)
[2019-12-22 20:32] LABS: Platelet Count 96 k/uL (150-450)
[2019-12-22] MEDS ORDERED: LACTULOSE 20 GM/30 ML CUP PO SCH (22:00)
[2019-12-22 22:19] LABS: Glucose,Whole Blood 167 mg/dL (75-99)
[2019-12-23 04:47] LABS: Basophils % (A) 1 %; Eosinophils # (A) 0.1 k/uL (0-0.7); Eosinophils % (A) 3 %; HCT 24.4 % (34.0-46.0); HGB 8.2 gm/dL (11.4-16.0); Hypochromasia Slight; Lymphocytes # (A) 1.2 k/uL (1.0-4.8); Lymphocytes % (A) 26 %; MCH 31.6 pg (25.0-35.0); MCHC 33.6 g/dL (31.0-37.0); MCV 94.2 fL (80.0-100.0); Mean Platelet Volume 8.2; Monocytes # (A) 0.4 k/uL (0-1.0); Monocytes % (A) 8 %; Neutrophils # (A) 2.5 k/uL (1.3-7.7); Neutrophils % (A) 58 %; Poikilocytosis Slight; RBC 2.59 m/uL (3.80-5.40); RDW 15.7 % (11.5-15.5); WBC 4.4 k/uL (3.8-10.6)
[2019-12-23 04:59] LABS: Platelet Count 78 k/uL (150-450)
[2019-12-23 05:01] LABS: Calcium 8.9 mg/dL (8.4-10.2); Potassium 3.3 mmol/L (3.5-5.1)
[2019-12-23] MEDS: POTASSIUM CHLORIDE ER 20 MEQ TAB.ER PO SCH ×4 (06:02→18:05)
[2019-12-23 06:27] LABS: Glucose,Whole Blood 137 mg/dL (75-99)
[2019-12-23] MEDS: TORSEMIDE 20 MG TAB PO SCH ×2 (06:37→18:05)
[2019-12-23] MEDS: INSULIN ASPART (NovoLOG) 100 UNIT/ML VIAL SQ SCH ×4 (06:37→20:06)
[2019-12-23] MEDS: PANTOPRAZOLE 40 MG/10 ML VIAL IV SCH ×2 (10:39→20:06)
[2019-12-23] MEDS: GABAPENTIN 100 MG CAP PO SCH ×3 (10:40→20:06)
[2019-12-23] MEDS: ANASTROZOLE 1 MG TAB PO SCH (10:40)
[2019-12-23] MEDS: FOLIC ACID 1 MG TAB PO SCH (10:40)
[2019-12-23] MEDS: SPIRONOLACTONE 25 MG TAB PO SCH (10:40)
[2019-12-23] MEDS: METOPROLOL TARTRATE 25 MG TAB PO SCH ×2 (10:40→20:06)
[2019-12-23] MEDS: RIFAXIMIN 550 MG TABLET PO SCH ×2 (10:41→20:06)
[2019-12-23] MEDS: metOLazone 5 MG TAB PO SCH (10:41)
--- NOTE | 2019-12-23 10:58 | P.CNPUL ---
History of Present Illness Consult date: 12/23/19 Requesting physician: Porsche Alexander Reason for consult: other Chief complaint: Acute mental status change, large dark stools GI bleeding History of present illness: 69-year-old female patient of Dr. Han, who resides at the local snf, and has a known history of multiple medical problems and comorbidities, including recurrent urinary tract infection related to multiple organisms includ ing vancomycin-resistant enterococcus, chronic stage III kidney disease, liver cirrhosis with hepatic encephalopathy, chronic CHF with distal dysfunction, fibromyalgia, hypertension hyperlipidemia, rheumatoid arthritis, seizure disorder, anxiety/depression and chronic debility. Patient was retching emergency department on 12/21/2019 with acute mental status. Patient was found to have a urinary tract infection, acute kidney injury. Her admission chest x- ray showed no acute cardiopulmonary process. She had abdomen and pelvis showed no acute abdominopelvic process, redemonstrated cirrhosis and perigastric and perisplenic varices. The rapid response team was called and patient was transferred to the intensive care unit on 12/22/2019 for a concern of acute GI bleeding as a patient was passing large dark stools. Initial hemoglobin on admission was 9.0, patient was down to 7.9, platelet count was 76, she is not on any anticoagulation on a regular basis. She has received 1 unit of packed red blood cells. This morning morning her hemoglobin is 8.2, she was seen by GI service in evaluation, she had a EGD and colonoscopy on 12/29/2019 for evaluation of symptoms of black tarry stools and maroon-colored stools and anemia. There was no evidence of upper GI bleed on the EGD, he did show a small hiatal hernia, colonoscopic evaluation showed moderate diverticulosis, blood clots and old blood noted in 3 scattered throughout the colon prohibiting complete visualization of the mucosa. Currently patient is resting comfortably in bed, she was started on antibiotics, she is on daptomycin, she is awake and alert, answering questions, no respiratory distress, she is on room air sats of 9800%, she is afebrile, not on any pressors, parenteral seen at a rate of 50 ML per hour, and patient is status post transfusion with 1 unit of packed red blood cells. Denies any abdominal discomfort, no hematemesis, she remains on IV Protonix at 40 mg twice a day. Review of Systems All systems: negative Constitutional: Denies chills, Denies fever Eyes: denies blurred vision, denies pain Ears, nose, mouth and throat: Denies headache, Denies sore throat Cardiovascular: Denies chest pain, Denies shortness of breath Respiratory: Denies cough Gastrointestinal: Reports melena, Denies abdominal pain, Denies diarrhea, Denies nausea, Denies vomiting Genitourinary: Denies dysuria, Denies hematuria Musculoskeletal: Denies myalgias Integumentary: Denies pruritus, Denies rash Neurological: Reports change in mentation, Denies numbness, Denies weakness Psychiatric: Reports confusion, Denies anxiety, Denies depression Endocrine: Denies fatigue, Denies weight change Past Medical History Past Medical History: Cancer, Heart Failure, COPD, Diabetes Mellitus, Fibromyalgia, Hyperlipidemia, Hypertension, Renal Disease, Rheumatoid Arthritis (RA), Seizure Disorder, Supraventricular Tachycardia (SVT) Additional Past Medical History / Comment(s): Breast cancer right-sided post mastectomy followed by chemotherapy, is independent diabetes mellitus type 2, peripheral neuropathy related to diabetes, COPD, liver cirrhosis, hypertension, hyperlipidemia, fibromyalgia, chronic kidney disease, rheumatoid arthritis, seizure disorder, history of SVT, diabetic peripheral neuropathy, chronic anxiety and depression, morbid obesity with a BMI of 58.5, previous history of GI bleed, diverticular disease, history of hepatic encephalopathy History of Any Multi-Drug Resistant Organisms: VRE Date of last positivie culture/infection: 05/11/18 MDRO Source:: VRE URINE Past Surgical History: Adenoidectomy, Appendectomy, Breast Surgery, Cholecystectomy, Hysterectomy, Orthopedic Surgery, Tonsillectomy, Tubal Ligation Additional Past Surgical History / Comment(s): masectomy right, ganglion cyst right hand, total hysterectomy (hx of tubal pregnancies), lower teeth extracted. Past Anesthesia/Blood Transfusion Reactions: No Reported Reaction Past Psychological History: Anxiety, Depression Additional Psychological History / Comment(s): Pt currently is at [facility] on [facility] for rehab. She needs assist with ADLS except feeds self. She states up until just lately she was getting up with a walker some.Her daughter lives with her. No experience. Did not work outside of the home. No international travel. . There is a pet dog in the home. No alcohol use Smoking Status: Former smoker Past Alcohol Use History: None Reported Additional Past Alcohol Use History / Comment(s): Pt started smoking in 1971 and qut in December 2017. Per patient she smoked 1-2 cigarettes a day after meals. Past Drug Use History: None Reported - Past Family History Father Family Medical History: Cancer, CVA/TIA Additional Family Medical History / Comment(s): 2000 from lung cancer Mother Family Medical History: Cancer, Dementia Additional Family Medical History / Comment(s): 2014 at age 86. Oral & Breast cancer Brother(s) Family Medical History: Asthma, Diabetes Mellitus, Fibromyalgia, Osteoarthritis (OA) Additional Family Medical History / Comment(s): Obesity. Joint replacements Medications and Allergies Home Medications Medication Instructions Recorded Confirmed Type Anastrozole [Arimidex] 1 mg PO DAILY@00 09/30/14 12/21/19 History Sennosides [Senna] 8.6 mg PO BID@09,209904/02/18 12/21/19 History Pantoprazole [Protonix] 40 mg PO DAILY@59907/02/18 12/21/19 History Ferrous Sulfate [Iron (65 MG 325 mg PO DAILY@89908/16/18 12/21/19 History Elemental)] Metoprolol Tartrate [Lopressor] 25 mg PO BID@0900,209908/16/18 12/21/19 History Ergocalciferol (Vitamin D2) 50,000 unit PO Q14D@89907/19/19 12/21/19 History [Drisdol] Acetaminophen [Tylenol] 650 mg PO Q4H PRN 08/24/19 12/21/19 History Dextran 70/Hypromellose [Genteal 1 drop BOTH EYES Q12H PRN 08/24/19 12/21/19 History Tears 0.1%-0.3% Drop] Folic Acid 1 mg PO DAILY@89908/24/19 12/21/19 History Lactulose 20 gm PO BID@0900,209908/24/19 12/21/19 History Multivitamins, Thera [Multivitamin 1 tab PO DAILY@1500 08/24/19 12/21/19 History (formulary)] Rifaximin [Xifaxan] 550 mg PO BID@0900,209908/24/19 12/21/19 History Spironolactone 50 mg PO DAILY@0900 08/24/19 12/21/19 History Thiamine [Vitamin B-1] 100 mg PO DAILY@1500 08/24/19 12/21/19 History Melatonin 10 mg PO HS PRN 10/25/19 12/21/19 History Ondansetron [Zofran] 4 mg PO TID PRN 10/25/19 12/21/19 History Oxymetazoline 0.05% Nasl [place] 1 spray NASAL Q15M PRN MDD 3 DOSES 10/25/19 12/21/19 History [Afrin 0.05% Nasal [place]] HYDROcodone/APAP 10-325MG [[place] 1 tab PO Q6HR PRN 3 Days #12 tab 11/02/19 12/21/19 Rx 10-325] metOLazone [Zaroxolyn] 5 mg PO DAILY #10 tablet 11/02/19 12/21/19 Rx Gabapentin [Neurontin] 200 mg PO TID@0900,1500,2100 12/21/19 12/21/19 History Insulin Aspart [Insulin Aspart 4 unit SQ AC-TID 12/21/19 12/21/19 History Flexpen] Insulin Aspart [Insulin Aspart See Protocol SQ AC-TID 12/21/19 12/21/19 History Flexpen] Torsemide [Demadex] 20 mg PO BID@0600,1500 12/21/19 12/21/19 History Allergies Allergy/AdvReac Type Severity Reaction Status Date / Time cephalexin [From Keflex] Allergy Unknown Verified 12/21/19 11:42 duloxetine [From Cymbalta] Allergy Unknown Verified 12/21/19 11:42 Penicillins Allergy Rash/Hives Verified 12/21/19 11:42 phenobarbital Allergy Unknown Verified 12/21/19 11:42 phenytoin sodium Allergy Unknown Verified 12/21/19 11:42 [From Dilantin] phenytoin sodium extended Allergy Unknown Verified 12/21/19 11:42 [From Dilantin] primidone [From Mysoline] Allergy Unknown Verified 12/21/19 11:42 codeine AdvReac Nausea & Verified 12/21/19 11:42 Vomiting Physical Exam Vitals: Vital Signs Temp Pulse Pulse Resp BP BP Pulse Ox 12/23/19 07:00 72 13 117/59 96 12/23/19 06:00 68 18 111/60 93 L 12/23/19 05:00 71 13 96/56 95 12/23/19 04:00 98.4 F 70 13 97/53 97 12/23/19 03:00 74 15 141/102 97 12/23/19 02:00 67 15 109/57 95 12/23/19 01:50 97.9 F 68 14 106/71 97 12/23/19 01:00 68 15 92/54 96 12/23/19 00:31 98.0 F 75 14 112/83 99 12/23/19 00:08 75 15 117/58 92 L 12/23/19 00:01 98.2 F 70 14 102/55 95 12/23/19 00:00 98.1 F 70 14 102/53 99 12/22/19 23:51 9.1 F L 77 16 107/72 98 12/22/19 23:00 67 16 106/60 95 12/22/19 22:00 70 9 L 107/72 98 12/22/19 21:59 70 11 L 98 12/22/19 20:00 97.8 F 79 18 135/61 100 12/22/19 15:00 78 16 125/58 100 12/22/19 11:59 89 20 Intake and Output 12/22/19 12/23/19 12/23/19 22:59 06:59 14:59 Intake Total 710 50 Output Total 700 300 Balance 10 -250 Intake: Intake, IV Titration 400 50 Amount Sodium Chloride 0.9% 1, 400 50 000 ml @ 50 mls/hr IV . Q20H [facility] Rx#:[id number] Blood Product 310 Rc Pheresis 2 As3 Unit 310 [id number] Output: Urine 700 300 Other: Voiding Method Bedpan Bedpan Incontinent # Voids 1 # Bowel Movements 1 Weight 84 kg GENERAL EXAM: Alert, pleasant, 69-year-old white female, on room air, with a pulse ox of 67% comfortable in no apparent distress. HEAD: Normocephalic/atraumatic. EYES: Normal reaction of pupils, equal size. Conjunctiva pink, sclera white. NOSE: Clear with pink turbinates. THROAT: No erythema or exudates. NECK: No masses, no JVD, no thyroid enlargement, no adenopathy. CHEST: No chest wall deformity. Symmetrical expansion. LUNGS: Equal air entry with no crackles, wheeze, rhonchi or dullness. CVS: Regular rate and rhythm, normal S1 and S2, no gallops, no murmurs, no rubs ABDOMEN: Soft, nontender. No hepatosplenomegaly, normal bowel sounds, no guarding or rigidity. EXTREMITIES: No clubbing, no edema, no cyanosis, 2+ pulses and upper and lower extremities. MUSCULOSKELETAL: Muscle strength and tone normal. SPINE: No scoliosis or deformity SKIN: No rashes CENTRAL NERVOUS SYSTEM: Alert and oriented -3. No focal deficits, tone is normal in all 4 extremities. PSYCHIATRIC: Alert and oriented -3. Appropriate affect. Intact judgment and insight. Results - Laboratory Findings CBC and BMP: 12/23/19 04:11 12/23/19 04:11 PT/INR, D-dimer PT 11.2 sec (9.0-12.0) 12/21/19 11:45 INR 1.1 (<1.2) 12/21/19 11:45 Abnormal lab findings: Abnormal Labs 12/21/19 12/21/19 12/21/19 11:45 11:45 11:45 RBC 3.00 L Hgb 9.0 L Hct 28.5 L RDW 16.5 H Plt Count 100 L Potassium Chloride BUN 102 H* Creatinine 1.96 H Glucose 194 H POC Glucose (mg/dL) Magnesium 2.5 H Total Bilirubin 1.5 H Ammonia Urine Appearance Cloudy H Urine Blood Moderate H Ur Leukocyte Esterase Large H Urine WBC 61 H Urine Bacteria Rare H Hyaline Casts 10 H Urine Mucus Rare H Crossmatch 12/21/19 12/21/19 12/22/19 17:40 20:12 06:13 RBC 2.37 L Hgb 7.1 L D Hct 22.8 L RDW 16.3 H Plt Count 76 L Potassium Chloride BUN Creatinine Glucose POC Glucose (mg/dL) 169 H Magnesium Total Bilirubin Ammonia Urine Appearance Urine Blood Ur Leukocyte Esterase Urine WBC Urine Bacteria Hyaline Casts Urine Mucus Crossmatch See Detail 12/22/19 12/22/19 12/22/19 07:42 07:42 12:05 RBC 2.60 L Hgb 8.2 L Hct 25.6 L RDW 16.3 H Plt Count 87 L Potassium Chloride 108 H BUN 82 H Creatinine 1.78 H Glucose 154 H POC Glucose (mg/dL) 174 H Magnesium Total Bilirubin Ammonia Urine Appearance Urine Blood Ur Leukocyte Esterase Urine WBC Urine Bacteria Hyaline Casts Urine Mucus Crossmatch 12/22/19 12/22/19 12/22/19 16:23 17:25 20:07 RBC 2.58 L Hgb 7.9 L Hct 24.9 L RDW 16.3 H Plt Count 96 L Potassium Chloride BUN Creatinine Glucose POC Glucose (mg/dL) 183 H Magnesium Total Bilirubin Ammonia 167 H Urine Appearance Urine Blood Ur Leukocyte Esterase Urine WBC Urine Bacteria Hyaline Casts Urine Mucus Crossmatch 12/22/19 12/23/19 12/23/19 21:59 04:11 04:11 RBC 2.59 L Hgb 8.2 L Hct 24.4 L RDW 15.7 H Plt Count 78 L Potassium 3.3 L Chloride BUN 63 H Creatinine 1.57 H Glucose 186 H POC Glucose (mg/dL) 167 H Magnesium Total Bilirubin Ammonia Urine Appearance Urine Blood Ur Leukocyte Esterase Urine WBC Urine Bacteria Hyaline Casts Urine Mucus Crossmatch 12/23/19 12/23/19 06:25 07:56 RBC Hgb Hct RDW Plt Count Potassium Chloride BUN Creatinine Glucose POC Glucose (mg/dL) 137 H Magnesium Total Bilirubin Ammonia 81 H Urine Appearance Urine Blood Ur Leukocyte Esterase Urine WBC Urine Bacteria Hyaline Casts Urine Mucus Crossmatch - Diagnostic Findings Chest x-ray: report reviewed, image reviewed Assessment and Plan Plan: Assessment: #1. Acute on chronic anemia related to GI blood losses, patient is passing large dark stools, status post transfusion with 1 unit of packed red blood cells #2. History of previous GI bleeding, is post-EGD and colonoscopy in August 2019 revealing no evidence of upper GI bleeding and a small hiatal hernia, colonoscopy showed diverticulosis, and old blood and blood clots #3. Chronic liver cirrhosis, with tach encephalopathy, on Xifaxan, ammonia level is 167 down to 81 on today's lab #4. Acute urinary tract infection #5. Altered mental status, multifactorial, could be in part related to acute UTI, hepatic encephalopathy #6. Acute kidney injury, improving #7. Previous history of VRE urinary tract infection #8. Chronic CHF with diastolic dysfunction #9. Diabetes mellitus type 2 #10. Hypertension #11. Hyperlipidemia #12. Seizure disorder #13. Chronic medical debility, patient is a resident of a local [facility] #14. Chronic stage III COPD Plan: Continue monitoring serial H&H's, hemodynamically patient is stable, not on any vasoactive drips, continue IV fluids, antibiotics, await urine culture, vital signs stable, patient is afebrile, she is more awake and alert, responding appropriately, no difficulty breathing, GI service is following. Await further recommendations. Continue with PPI therapy. Continue close hemodynamic monitoring in the intensive care unit. I performed a history & physical examination of the patient and discussed their management with my nurse practitioner, Yesica Velázquez. I reviewed the nurse practitioner's note and agree with the documented findings and plan of care. Lung sounds are positive for diminished breath sounds. The findings and the impression was discussed with the patient. I attest to the documentation by the nurse practitioner. Time with Patient: Greater than 30
[2019-12-23 11:52] LABS: HCT 25.4 % (34.0-46.0); HGB 8.5 gm/dL (11.4-16.0); Hypochromasia Slight; MCH 31.7 pg (25.0-35.0); MCHC 33.7 g/dL (31.0-37.0); MCV 94.2 fL (80.0-100.0); Mean Platelet Volume 8.8; Poikilocytosis Slight; RBC 2.69 m/uL (3.80-5.40); RDW 15.6 % (11.5-15.5); WBC 4.8 k/uL (3.8-10.6)
[2019-12-23 11:56] LABS: Platelet Count 81 k/uL (150-450)
[2019-12-23 11:57] LABS: Glucose,Whole Blood 170 mg/dL (75-99)
--- NOTE | 2019-12-23 12:53 | P.PN ---
Subjective Progress Note Date: 12/23/19 Principal diagnosis: GI bleed The patient was seen and examined in bed. The nurse reported the patient had a small bowel movement yesterday and today that was maroon in color. The patient denies any nausea, vomiting, or abdominal pain. Hemoglobin is stable at 8.2. Objective - Vital Signs Vital signs: Vital Signs Temp 98.4 F 12/23/19 08:00 Pulse 68 12/23/19 12:00 Resp 18 12/23/19 12:00 BP 111/57 12/23/19 12:00 Pulse Ox 98 12/23/19 12:00 Intake & Output 12/22/19 12/23/19 12/23/19 18:59 06:59 18:59 Intake Total 710 300 Output Total 700 700 Balance 10 -400 Weight 101.5 kg 84 kg Intake: Intake, IV Titration 400 300 Amount Sodium Chloride 0.9% 1, 400 300 000 ml @ 50 mls/hr IV . Q20H [facility] Rx#:[id number] Blood Product 310 Rc Pheresis 2 As3 Unit 310 [id number] Output: Urine 700 700 Other: Voiding Method Bedpan Bedpan Bedpan # Voids 1 1 1 # Bowel Movements 1 1 - Exam General appearance: The patient is alert, oriented, in no acute distress. HET: Head is normocephalic and atraumatic. Conjunctiva pink. Sclera anicteric. Neck: Supple without lymphadenopathy. Abdomen: Soft, nontender, nondistended with bowel sounds. No guarding or rigidity. Extremities: Normal skin color and turgor. No pedal edema Neurological: No focal deficits. Alert and oriented 3. - Labs CBC & Chem 7: 12/23/19 11:35 12/23/19 11:35 Labs: Abnormal Lab Results - Last 24 Hours (Table) 12/21/19 12/22/19 12/22/19 Range/Units 20:12 16:23 17:25 RBC (3.80-5.40) m/uL Hgb (11.4-16.0) gm/dL Hct (34.0-46.0) % RDW (11.5-15.5) % Plt Count (150-450) k/uL Potassium (3.5-5.1) mmol/L BUN (7-17) mg/dL Creatinine (0.52-1.04) mg/dL Glucose (74-99) mg/dL POC Glucose (mg/dL) 183 H (75-99) mg/dL Ammonia 167 H (<30) umol/L Crossmatch See Detail 12/22/19 12/22/19 12/23/19 Range/Units 20:07 21:59 04:11 RBC 2.58 L 2.59 L (3.80-5.40) m/uL Hgb 7.9 L 8.2 L (11.4-16.0) gm/dL Hct 24.9 L 24.4 L (34.0-46.0) % RDW 16.3 H 15.7 H (11.5-15.5) % Plt Count 96 L 78 L (150-450) k/uL Potassium (3.5-5.1) mmol/L BUN (7-17) mg/dL Creatinine (0.52-1.04) mg/dL Glucose (74-99) mg/dL POC Glucose (mg/dL) 167 H (75-99) mg/dL Ammonia (<30) umol/L Crossmatch 12/23/19 12/23/19 12/23/19 Range/Units 04:11 06:25 07:56 RBC (3.80-5.40) m/uL Hgb (11.4-16.0) gm/dL Hct (34.0-46.0) % RDW (11.5-15.5) % Plt Count (150-450) k/uL Potassium 3.3 L (3.5-5.1) mmol/L BUN 63 H (7-17) mg/dL Creatinine 1.57 H (0.52-1.04) mg/dL Glucose 186 H (74-99) mg/dL POC Glucose (mg/dL) 137 H (75-99) mg/dL Ammonia 81 H (<30) umol/L Crossmatch 12/23/19 12/23/19 12/23/19 Range/Units 11:35 11:35 11:55 RBC 2.69 L (3.80-5.40) m/uL Hgb 8.5 L (11.4-16.0) gm/dL Hct 25.4 L (34.0-46.0) % RDW 15.6 H (11.5-15.5) % Plt Count 81 L (150-450) k/uL Potassium 3.3 L (3.5-5.1) mmol/L BUN (7-17) mg/dL Creatinine (0.52-1.04) mg/dL Glucose (74-99) mg/dL POC Glucose (mg/dL) 170 H (75-99) mg/dL Ammonia (<30) umol/L Crossmatch Microbiology - Last 24 Hours (Table) 12/21/19 20:24 Blood Culture - Preliminary Blood No Growth after 24 hours 12/21/19 11:45 Urine Culture - Final Urine,Voided Assessment and Plan (1) Cirrhosis Narrative/Plan: 69-year-old female with multiple medical comorbidities who presented to the hospital due to altered mental status. Currently being treated for urinary tract infection. She was also found to have markedly elevated ammonia of 167 on presentation. patient had previously been on lactulose and rifaximin therapy, currently not listed as one of her home medications. Extensive endoscopic evaluation for GI bleed in 08/2019 with EGD with findings of hiatal hernia and gastritis, colonoscopy with findings of diverticulosis and clots throughout the colon prohibiting complete visualization of the mucosa and video capsule endosco py with findings of old blood in the colon with no active bleeding. No varices were seen at that time. Current Visit: Yes Status: Acute Code(s): K74.60 - UNSPECIFIED CIRRHOSIS OF LIVER SNOMED Code(s): 06211173 (2) Anemia Current Visit: Yes Status: Acute Code(s): D64.9 - ANEMIA, UNSPECIFIED SNOMED Code(s): 635546074 (3) Encephalopathy Narrative/Plan: Likely multifactorial and may be related to urinary tract infection as well as hepatic encephalopathy Current Visit: No Status: Acute Code(s): G93.40 - ENCEPHALOPATHY, UNSPECIFIED SNOMED Code(s): 92016973 Plan: supportive care Full liquid diet Monitor for signs or symptoms of GI bleeding Continue to monitor CBC and transfuse as needed Continue Protonix therapy No plan for endoscopic evaluation at this time Continue rifaximin therapy Continue monitor clinically Thank you for allowing us to participate in copythe care of the patient The impression and plan of care has been dictated as directed. I performed a history and examination of this patient, discussed the same with the dictator. I agree with the dictator's note ,documented as a scribe. Any additional findings or plans will be noted.
[2019-12-23 15:00] LABS: Hemoglobin A1C 5.1 % (4.0-6.0)
[2019-12-23] MEDS ORDERED: Potassium Replacement Protocol 1 EACH MISC MISCELLANE PRN (15:29)
[2019-12-23 16:47] LABS: Glucose,Whole Blood 167 mg/dL (75-99)
[2019-12-23] MEDS: MULTIVITAMINS, THERA 1 EACH TAB PO SCH (17:13)
[2019-12-23] MEDS: THIAMINE 100 MG TAB PO SCH (17:13)
[2019-12-23] MEDS: SODIUM CHLORIDE 0.9% 1,000 ML IV SCH (17:14)
[2019-12-23] MEDS ORDERED: LACTULOSE 20 GM/30 ML CUP PO PRN (18:06)
[2019-12-23 19:40] LABS: Glucose,Whole Blood 251 mg/dL (75-99)
--- NOTE | 2019-12-23 20:00 | PN ---
PROGRESS NOTE DATE OF SERVICE: 12/23/2019 This 69-year-old woman who was admitted with acute lower GI bleed and acute diverticular bleed is being closely monitored. Dr. Ingram performed colonoscopy twice. The patient still has GI bleed. The patient has been transferred to ICU at this time. The patient received so far one unit transfusion. Hemoglobin is 8.5 at this time. Potassium is 3.3. Past medical history reviewed. REVIEW OF SYSTEMS: CARDIOVASCULAR SYSTEM: No angina, palpitations. RESPIRATORY SYSTEM: As mentioned earlier. GI: As mentioned earlier. : No dysuria or retention. NERVOUS SYSTEM: No numbness, weakness. CURRENT MEDICATIONS: Reviewed. They include Tylenol, [place], Arimidex, daptomycin, vitamin B12, Neurontin, Dilaudid, NovoLog, melatonin, Zaroxolyn, lopressor, Narcan, Zofran, Afrin, Protonix, K- Dur,, vitamin B1, Demadex. PHYSICAL EXAMINATION: Patient is alert and oriented x2. Pulse 76, blood pressure 93/46, respiration 17, temperature 98.4, pulse ox 98% on room air. HEENT: Conjunctivae normal. NECK: No jugular venous distention. CARDIOVASCULAR SYSTEM: S1, S2 muffled. RESPIRATORY SYSTEM: Breath sounds diminished at the bases. Bilateral scattered rhonchi and crackles. ABDOMEN: Soft, non-tender. NERVOUS SYSTEM: No focal deficit. LABS: Potassium 3.3. WBC 4.8, hemoglobin is 8.5, and serum ammonia was 81. ASSESSMENT: 1. Acute lower gastrointestinal bleeding with possible diverticular bleed. Rule out variceal bleed. 2. Acute blood loss anemia for transfusion. 3. Change in mental status, possible hepatic encephalopathy. 4. Thrombocytopenia. 5. Increased creatinine with chronic kidney disease, stage 3. 6. Elevated total bilirubin secondary to chronic liver disease. 7. Acute urinary tract infection, present on admission. 8. History of congestive heart failure, ejection fraction unknown. 9. History of chronic obstructive pulmonary disease. 10.Diabetes mellitus, type 2. 11.Fibromyalgia. 12.Hypertension. 13.Hyperlipidemia. 14.History of rheumatoid arthritis. 15.History of seizure disorder. 16.History of supraventricular tachycardia. 17.History of breast cancer with right-sided mastectomy and chemotherapy. 18.History of peripheral neuropathy. 19.History of chronic anxiety. 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 21.History of breast surgery. 22.History of cholecystectomy. 23.History of mastectomy. 24.FULL CODE. RECOMMENDATIONS AND DISCUSSION: I recommend to continue current medications, continue with the monitoring, symptomatic treatment. Otherwise at this time I recommend adding lactulose to the current regimen to 2-3 bowel movements. Will closely monitor. Discussed with Dr. Ingram. Possible surgical consultation and evaluation. Prognosis guarded because of multiple complex medical issues. Further recommendations to follow. MMODL / IJN: [id number] / MTDD
[2019-12-23 20:08] LABS: Anisocytosis Slight; HCT 25.3 % (34.0-46.0); HGB 8.1 gm/dL (11.4-16.0); Hypochromasia Slight; MCH 30.4 pg (25.0-35.0); MCHC 32.2 g/dL (31.0-37.0); MCV 94.5 fL (80.0-100.0); Mean Platelet Volume 8.8; Poikilocytosis Slight; RBC 2.68 m/uL (3.80-5.40); RDW 16.2 % (11.5-15.5); WBC 4.1 k/uL (3.8-10.6)
[2019-12-23] MEDS: HYDROcodone/APAP 10-325MG 1 EACH TAB PO PRN (20:13)
[2019-12-23 20:20] LABS: Platelet Count 83 k/uL (150-450)
[2019-12-23] MEDS: DAPTOmycin 500 MG in SODIUM CHLORIDE 0.9% 50 ML IVPB SCH (21:15)
[2019-12-23] MEDS: ONDANSETRON 4 MG/2 ML VIAL IVP PRN (21:50)
[2019-12-24 00:16] LABS: Glucose,Whole Blood 139 mg/dL (75-99)
[2019-12-24 06:06] LABS: Glucose,Whole Blood 138 mg/dL (75-99)
[2019-12-24] MEDS: TORSEMIDE 20 MG TAB PO SCH ×2 (06:36→18:08)
[2019-12-24] MEDS: INSULIN ASPART (NovoLOG) 100 UNIT/ML VIAL SQ SCH ×4 (06:37→20:53)
[2019-12-24] MEDS: GABAPENTIN 100 MG CAP PO SCH ×3 (09:07→20:51)
[2019-12-24] MEDS: FOLIC ACID 1 MG TAB PO SCH (09:07)
[2019-12-24] MEDS: SPIRONOLACTONE 25 MG TAB PO SCH (09:07)
[2019-12-24] MEDS: METOPROLOL TARTRATE 25 MG TAB PO SCH ×2 (09:08→20:51)
[2019-12-24] MEDS: ANASTROZOLE 1 MG TAB PO SCH (09:08)
[2019-12-24] MEDS: PANTOPRAZOLE 40 MG/10 ML VIAL IV SCH ×2 (09:08→20:53)
[2019-12-24] MEDS: metOLazone 5 MG TAB PO SCH (09:08)
[2019-12-24] MEDS: RIFAXIMIN 550 MG TABLET PO SCH ×2 (09:09→20:52)
[2019-12-24 09:35] LABS: Anisocytosis Slight; Basophils % (A) 1 %; Eosinophils # (A) 0.2 k/uL (0-0.7); Eosinophils % (A) 5 %; HCT 27.1 % (34.0-46.0); HGB 8.7 gm/dL (11.4-16.0); Hypochromasia Slight; Lymphocytes # (A) 1.6 k/uL (1.0-4.8); Lymphocytes % (A) 32 %; MCH 30.6 pg (25.0-35.0); MCHC 32.2 g/dL (31.0-37.0); MCV 95.1 fL (80.0-100.0); Mean Platelet Volume 8.6; Monocytes # (A) 0.3 k/uL (0-1.0); Monocytes % (A) 6 %; Neutrophils # (A) 2.7 k/uL (1.3-7.7); Neutrophils % (A) 54 %; Platelet Count 104 k/uL (150-450); Poikilocytosis Slight; RBC 2.85 m/uL (3.80-5.40); RDW 16.2 % (11.5-15.5); WBC 5.1 k/uL (3.8-10.6)
[2019-12-24 09:59] LABS: Calcium 9.1 mg/dL (8.4-10.2); Potassium 4.2 mmol/L (3.5-5.1)
[2019-12-24 11:41] LABS: Glucose,Whole Blood 202 mg/dL (75-99)
[2019-12-24 11:41] LABS: Glucose,Whole Blood 205 mg/dL (75-99)
[2019-12-24] MEDS: SODIUM CHLORIDE 0.9% 1,000 ML IV SCH (11:45)
--- NOTE | 2019-12-24 12:34 | P.PN ---
Subjective Progress Note Date: 12/24/19 Principal diagnosis: GI bleed The patient was seen and examined lying in bed. She is alert and oriented 3. She had 2 dark maroon stools yesterday reported by nursing. She denies any vomiting or abdominal pain, still has some mild nausea at times. Hemoglobin is stable at 8.7. H&H had a significant workup for an upper and lower endoscopy in August of this year, followed by a small bowel capsule which showed no evidence of any active bleed. Surgery has been consulted. Objective - Vital Signs Vital signs: Vital Signs Temp 97.9 F 12/24/19 08:26 Pulse 82 12/24/19 08:26 Resp 14 12/24/19 08:26 BP 111/62 12/24/19 08:26 Pulse Ox 99 12/24/19 08:26 Intake & Output 12/23/19 12/24/19 12/24/19 18:59 06:59 18:59 Intake Total 650 500 Output Total 1100 720 Balance -450 -220 Weight 89.7 kg Intake: Intake, IV Titration 650 500 Amount Sodium Chloride 0.9% 1, 650 500 000 ml @ 50 mls/hr IV . Q20H [facility] Rx#:[id number] Output: Urine 1100 720 Other: Voiding Method Bedpan Bedpan # Voids 1 1 # Bowel Movements 1 - Exam General appearance: The patient is alert, oriented, in no acute distress. HET: Head is normocephalic and atraumatic. Conjunctiva pink. Sclera anicteric. Neck: Supple without lymphadenopathy. Abdomen: Soft, nontender, nondistended with bowel sounds. No guarding or rigidity. Extremities: Normal skin color and turgor. No pedal edema Neurological: No focal deficits. Alert and oriented 3. - Labs CBC & Chem 7: 12/24/19 08:28 12/24/19 08:28 Labs: Abnormal Lab Results - Last 24 Hours (Table) 12/21/19 12/23/19 12/23/19 Range/Units 20:12 11:35 11:35 RBC 2.69 L (3.80-5.40) m/uL Hgb 8.5 L (11.4-16.0) gm/dL Hct 25.4 L (34.0-46.0) % RDW 15.6 H (11.5-15.5) % Plt Count 81 L (150-450) k/uL Potassium 3.3 L (3.5-5.1) mmol/L POC Glucose (mg/dL) (75-99) mg/dL Crossmatch See Detail 12/23/19 12/23/19 12/23/19 Range/Units 11:55 16:45 19:29 RBC 2.68 L (3.80-5.40) m/uL Hgb 8.1 L (11.4-16.0) gm/dL Hct 25.3 L (34.0-46.0) % RDW 16.2 H (11.5-15.5) % Plt Count 83 L (150-450) k/uL Potassium (3.5-5.1) mmol/L POC Glucose (mg/dL) 170 H 167 H (75-99) mg/dL Crossmatch 12/23/19 12/24/19 12/24/19 Range/Units 19:39 00:11 06:05 RBC (3.80-5.40) m/uL Hgb (11.4-16.0) gm/dL Hct (34.0-46.0) % RDW (11.5-15.5) % Plt Count (150-450) k/uL Potassium (3.5-5.1) mmol/L POC Glucose (mg/dL) 251 H 139 H 138 H (75-99) mg/dL Crossmatch Microbiology - Last 24 Hours (Table) 12/21/19 20:24 Blood Culture - Preliminary Blood No Growth after 48 hours Assessment and Plan (1) Cirrhosis Narrative/Plan: 69-year-old female with multiple medical comorbidities who presented to the hospital due to altered mental status. Currently being treated for urinary tract infection. She was also found to have markedly elevated ammonia of 167 on presentation. patient had previously been on lactulose and rifaximin therapy, currently not listed as one of her home medications. Extensive endoscopic evaluation for GI bleed in 08/2019 with EGD with findings of hiatal hernia and gastritis, colonoscopy with findings of diverticulosis and clots throughout the colon prohibiting complete visualization of the mucosa and video capsule endoscopy with findings of old blood in the colon with no active bleeding. No varices were seen at that time. Current Visit: Yes Status: Acute Code(s): K74.60 - UNSPECIFIED CIRRHOSIS OF LIVER SNOMED Code(s): 54574178 (2) Anemia Current Visit: Yes Status: Acute Code(s): D64.9 - ANEMIA, UNSPECIFIED SNOMED Code(s): 258872884 (3) Encephalopathy Narrative/Plan: Likely multifactorial and may be related to urinary tract infection as well as hepatic encephalopathy Current Visit: No Status: Acute Code(s): G93.40 - ENCEPHALOPATHY, UNSPECIFIED SNOMED Code(s): 14199808 (4) Anemia associated with acute blood loss Narrative/Plan: Surgical consult added to evaluate for possible diverticular bleed.. Patient undergoing tagged red blood cell. Current Visit: No Status: Acute Code(s): D62 - ACUTE POSTHEMORRHAGIC ANEMIA SNOMED Code(s): 629643506 Plan: supportive care Full liquid diet Monitor for signs or symptoms of GI bleeding Continue to monitor CBC and transfuse as needed Continue Protonix therapy The patient is declining any colonoscopies at this time, may consider upper endoscopy if any further signs of GI bleed. Continue rifaximin therapy Continue monitor clinically Appreciate recommendations from surgical services Thank you for allowing us to participate in the care of the patient The impression and plan of care has been dictated as directed. I performed a history and examination of this patient, discussed the same with the dictator. I agree with the dictator's note ,documented as a scribe. Any additional findings or plans will be noted.
--- NOTE | 2019-12-24 14:12 | P.GSCN ---
History of Present Illness Consult date: 12/24/19 History of present illness: CHIEF COMPLAINT: GI bleed HISTORY OF PRESENT ILLNESS: This is a 69-year-old female with a known history of GI bleed with prior diverticular bleed 3 episodes. She also has a history of chronic kidney disease, liver cirrhosis, CHF, hysterectomy right breast cancer with mastectomy. Patient resides at [facility]. Patient came into the emergency room with altered mental status. She was found have a UTI and acute kidney injury. She also had been having an acute GI bleed with dark maroon stools. She did require blood transfusion during this admission. She's been seen by GI service during this admission. Her last EGD and colonoscopy was in August 2019 with hiatal hernia, gastritis, diverticulosis with presence of old blood and a capsule endoscopy also completed. Patient denies any abdominal pain. Denies any nausea or vomiting. She is still having maroon-colored stools as of yesterday. Patient denies any fever chills or sweats. PAST MEDICAL HISTORY: See list. PAST SURGICAL HISTORY: See list. MEDICATIONS: See list. ALLERGIES: See list. SOCIAL HISTORY: No illicit drug use. REVIEW OF SYSTEMS: CONSTITUTIONAL: Denies fever or chills. HEENT: Denies blurred vision, vision changes, or eye pain. Denies hemoptysis CARDIOVASCULAR: Denies chest pain or pressure. RESPIRATORY: No shortness of breath. GASTROINTESTINAL: See HPI for pertinent findings HEMATOLOGIC: Denies bleeding disorders. GENITOURINARY: Denies any blood in urine or increased urinary frequency. SKIN: Denies pruitis. Denies rash. PHYSICAL EXAM: VITAL SIGNS: Reviewed GENERAL: Well-developed in no acute distress. HEENT: No sclera icterus. Extraocular movements grossly intact. Moist buccal mucosa. Head is atraumatic, normocephalic. No nasal drainage. ABDOMEN: Soft. Nondistended. Nontender NEUROLOGIC: Alert and oriented. Cranial nerves II through XII grossly intact. LABORATORY DATA: WBC 5.1 hemoglobin 8.7 platelets 103 creatinine 1.69 IMAGING: Computed tomography scan abdomen and pelvis no acute abdominopelvic process. We demonstrated cirrhosis, splenomegaly and perigastric and parasplenic varices ASSESSMENT: 1. Acute GI bleed 2. Acute blood loss anemia requiring blood transfusion during this admission 3. Prior history of GI bleed and diverticular bleed 4. Previous EGD and colonoscopy in August 2019 revealing no evidence of upper GI bleeding and a small hiatal hernia, gastritis. Colonoscopy showed diverticulosis and old blood and blood clots 5. History of chronic liver cirrhosis with hepatic encephalopathy 6. UTI 7. Altered mental status changes likely due to UTI and hepatic encephalopathy PLAN: -Check a tagged RBC scan -Continue to monitor CBC -Continue Protonix Thank you for this consultation Physician [employer] And [employer] Tester note has been reviewed by physician. Signing provider agrees with the documented findings, assessment, and plan of care. Past Medical History Past Medical History: Cancer, Heart Failure, COPD, Diabetes Mellitus, Fibromyalgia, Hyperlipidemia, Hypertension, Renal Disease, Rheumatoid Arthritis (RA), Seizure Disorder, Supraventricular Tachycardia (SVT) Additional Past Medical History / Comment(s): Breast cancer right-sided post mastectomy followed by chemotherapy, is independent diabetes mellitus type 2, peripheral neuropathy related to diabetes, COPD, liver cirrhosis, hypertension, hyperlipidemia, fibromyalgia, chronic kidney disease, rheumatoid arthritis, seizure disorder, history of SVT, diabetic peripheral neuropathy, chronic anxiety and depression, morbid obesity with a BMI of 58.5, previous history of GI bleed, diverticular disease, history of hepatic encephalopathy History of Any Multi-Drug Resistant Organisms: VRE Year Discovered:: 05/11/18 MDRO Source:: VRE URINE Past Surgical History: Adenoidectomy, Appendectomy, Breast Surgery, Cholecystectomy, Hysterectomy, Orthopedic Surgery, Tonsillectomy, Tubal Ligation Additional Past Surgical History / Comment(s): masectomy right, ganglion cyst right hand, total hysterectomy (hx of tubal pregnancies), lower teeth extracted. Past Anesthesia/Blood Transfusion Reactions: No Reported Reaction Past Psychological History: Anxiety, Depression Additional Psychological History / Comment(s): Pt currently is at [facility] for rehab. She needs assist with ADLS except feeds self. She states up until just lately she was getting up with a walker some.Her daughter lives with her. No experience. Did not work outside of the home. No internation al travel. . There is a pet dog in the home. No alcohol use Smoking Status: Former smoker Past Alcohol Use History: None Reported Additional Past Alcohol Use History / Comment(s): Pt started smoking in 1971 and qut in December 2017. Per patient she smoked 1-2 cigarettes a day after meals. Past Drug Use History: None Reported - Past Family History Father Family Medical History: Cancer, CVA/TIA Additional Family Medical History / Comment(s): 2000 from lung cancer Mother Family Medical History: Cancer, Dementia Additional Family Medical History / Comment(s): 2014 at age 86. Oral & Breast cancer Brother(s) Family Medical History: Asthma, Diabetes Mellitus, Fibromyalgia, Osteoarthritis (OA) Additional Family Medical History / Comment(s): Obesity. Joint replacements Medications and Allergies Home Medications Medication Instructions Recorded Confirmed Type Anastrozole [Arimidex] 1 mg PO DAILY@89909/30/14 12/21/19 History Sennosides [Senna] 8.6 mg PO BID@899,209904/02/18 12/21/19 History Pantoprazole [Protonix] 40 mg PO DAILY@59907/02/18 12/21/19 History Ferrous Sulfate [Iron (65 MG 325 mg PO DAILY@89908/16/18 12/21/19 History Elemental)] Metoprolol Tartrate [Lopressor] 25 mg PO BID@899,209908/16/18 12/21/19 History Ergocalciferol (Vitamin D2) 50,000 unit PO Q14D@89907/19/19 12/21/19 History [Drisdol] Acetaminophen [Tylenol] 650 mg PO Q4H PRN 08/24/19 12/21/19 History Dextran 70/Hypromellose [Genteal 1 drop BOTH EYES Q12H PRN 08/24/19 12/21/19 History Tears 0.1%-0.3% Drop] Folic Acid 1 mg PO DAILY@89908/24/19 12/21/19 History Lactulose 20 gm PO BID@899,209908/24/19 12/21/19 History Multivitamins, Thera [Multivitamin 1 tab PO DAILY@149908/24/19 12/21/19 History (formulary)] Rifaximin [Xifaxan] 550 mg PO BID@00,209908/24/19 12/21/19 History Spironolactone 50 mg PO DAILY@89908/24/19 12/21/19 History Thiamine [Vitamin B-1] 100 mg PO DAILY@149908/24/19 12/21/19 History Melatonin 10 mg PO HS PRN 10/25/19 12/21/19 History Ondansetron [Zofran] 4 mg PO TID PRN 10/25/19 12/21/19 History Oxymetazoline 0.05% Nasl [place] 1 spray NASAL Q15M PRN MDD 3 DOSES 10/25/19 12/21/19 History [Afrin 0.05% Nasal [place]] HYDROcodone/APAP 10-325MG [[place] 1 tab PO Q6HR PRN 3 Days #12 tab 11/02/19 12/21/19 Rx 10-325] metOLazone [Zaroxolyn] 5 mg PO DAILY #10 tablet 11/02/19 12/21/19 Rx Gabapentin [Neurontin] 200 mg PO TID@0900,1500,2100 12/21/19 12/21/19 History Insulin Aspart [Insulin Aspart 4 unit SQ AC-TID 12/21/19 12/21/19 History Flexpen] Insulin Aspart [Insulin Aspart See Protocol SQ AC-TID 12/21/19 12/21/19 History Flexpen] Torsemide [Demadex] 20 mg PO BID@0600,1500 12/21/19 12/21/19 History Allergies Allergy/AdvReac Type Severity Reaction Status Date / Time cephalexin [From Keflex] Allergy Unknown Verified 12/21/19 11:42 duloxetine [From Cymbalta] Allergy Unknown Verified 12/21/19 11:42 Penicillins Allergy Rash/Hives Verified 12/21/19 11:42 phenobarbital Allergy Unknown Verified 12/21/19 11:42 phenytoin sodium Allergy Unknown Verified 12/21/19 11:42 [From Dilantin] phenytoin sodium extended Allergy Unknown Verified 12/21/19 11:42 [From Dilantin] primidone [From Mysoline] Allergy Unknown Verified 12/21/19 11:42 codeine AdvReac Nausea & Verified 12/21/19 11:42 Vomiting Surgical - Exam Vital Signs Temp Pulse Resp BP Pulse Ox 97.8 F 89 20 141/81 98 12/21/19 11:12 12/21/19 11:12 12/21/19 11:12 12/21/19 11:12 12/21/19 11:12 Results - Labs 12/24/19 08:28 12/24/19 08:28 Abnormal Lab Results - Last 24 Hours (Table) 12/21/19 12/23/19 12/23/19 Range/Units 20:12 16:45 19:29 RBC 2.68 L (3.80-5.40) m/uL Hgb 8.1 L (11.4-16.0) gm/dL Hct 25.3 L (34.0-46.0) % RDW 16.2 H (11.5-15.5) % Plt Count 83 L (150-450) k/uL Sodium (137-145) mmol/L Carbon Dioxide (22-30) mmol/L BUN (7-17) mg/dL Creatinine (0.52-1.04) mg/dL Glucose (74-99) mg/dL POC Glucose (mg/dL) 167 H (75-99) mg/dL Ammonia (<30) umol/L Crossmatch See Detail 12/23/19 12/24/19 12/24/19 Range/Units 19:39 00:11 06:05 RBC (3.80-5.40) m/uL Hgb (11.4-16.0) gm/dL Hct (34.0-46.0) % RDW (11.5-15.5) % Plt Count (150-450) k/uL Sodium (137-145) mmol/L Carbon Dioxide (22-30) mmol/L BUN (7-17) mg/dL Creatinine (0.52-1.04) mg/dL Glucose (74-99) mg/dL POC Glucose (mg/dL) 251 H 139 H 138 H (75-99) mg/dL Ammonia (<30) umol/L Crossmatch 12/24/19 12/24/19 12/24/19 Range/Units 08:28 08:28 08:28 RBC 2.85 L (3.80-5.40) m/uL Hgb 8.7 L (11.4-16.0) gm/dL Hct 27.1 L (34.0-46.0) % RDW 16.2 H (11.5-15.5) % Plt Count 104 L (150-450) k/uL Sodium 134 L (137-145) mmol/L Carbon Dioxide 21 L (22-30) mmol/L BUN 58 H (7-17) mg/dL Creatinine 1.69 H (0.52-1.04) mg/dL Glucose 202 H (74-99) mg/dL POC Glucose (mg/dL) (75-99) mg/dL Ammonia 53 H (<30) umol/L Crossmatch 12/24/19 12/24/19 Range/Units 11:38 11:39 RBC (3.80-5.40) m/uL Hgb (11.4-16.0) gm/dL Hct (34.0-46.0) % RDW (11.5-15.5) % Plt Count (150-450) k/uL Sodium (137-145) mmol/L Carbon Dioxide (22-30) mmol/L BUN (7-17) mg/dL Creatinine (0.52-1.04) mg/dL Glucose (74-99) mg/dL POC Glucose (mg/dL) 202 H 205 H (75-99) mg/dL Ammonia (<30) umol/L Crossmatch Microbiology - Last 24 Hours (Table) 12/21/19 20:24 Blood Culture - Preliminary Blood No Growth after 48 hours Diabetes panel 12/23/19 12/23/19 12/24/19 Range/Units 04:11 19:29 08:28 Sodium 134 L (137-145) mmol/L Potassium 3.9 4.2 (3.5-5.1) mmol/L Chloride 101 (98-107) mmol/L Carbon Dioxide 21 L (22-30) mmol/L BUN 58 H (7-17) mg/dL Creatinine 1.69 H (0.52-1.04) mg/dL Glucose 202 H (74-99) mg/dL Hemoglobin A1c 5.1 (4.0-6.0) % Calcium 9.1 (8.4-10.2) mg/dL Calcium panel 12/24/19 Range/Units 08:28 Calcium 9.1 (8.4-10.2) mg/dL Pituitary panel 12/23/19 12/24/19 Range/Units 19:29 08:28 Sodium 134 L (137-145) mmol/L Potassium 3.9 4.2 (3.5-5.1) mmol/L Chloride 101 (98-107) mmol/L Carbon Dioxide 21 L (22-30) mmol/L BUN 58 H (7-17) mg/dL Creatinine 1.69 H (0.52-1.04) mg/dL Glucose 202 H (74-99) mg/dL Calcium 9.1 (8.4-10.2) mg/dL Adrenal panel 12/23/19 12/24/19 Range/Units 19:29 08:28 Sodium 134 L (137-145) mmol/L Potassium 3.9 4.2 (3.5-5.1) mmol/L Chloride 101 (98-107) mmol/L Carbon Dioxide 21 L (22-30) mmol/L BUN 58 H (7-17) mg/dL Creatinine 1.69 H (0.52-1.04) mg/dL Glucose 202 H (74-99) mg/dL Calcium 9.1 (8.4-10.2) mg/dL
--- NOTE | 2019-12-24 16:25 | PN ---
PROGRESS NOTE PULMONARY/CRITICAL CARE PROGRESS NOTE DATE OF SERVICE: December 24, 2019. This is a 69-year-old female who was admitted on December 20. The patient presented with acute on chronic anemia secondary to GI bleed. The patient has received 1 unit of PRBCs. She is scheduled for an EGD tomorrow. She has a previous history of GI bleed, the previous EGD and colonoscopy in August of 2019 revealing no evidence of upper GI bleeding and a small hiatal hernia, and a colonoscopy which showed diverticulosis. She does have a history of chronic liver cirrhosis, acute urinary tract infection, mental status changes, acute kidney injury, previous history of VRE infection, CHF, diabetes, hypertension, hyperlipidemia, seizure disorder, and stage III COPD. Currently, the patient is resting comfortably. She was in the ICU yesterday. She got moved down to the floor. She is apparently scheduled to have an EGD tomorrow with Dr. Ingram. She has been having small amounts of maroon stool. PHYSICAL EXAMINATION: VITAL SIGNS: Current vital signs are stable. Temperature 97.6 heart rate 74, respiratory rate 14, blood pressure 111/62, mean 78, room-air saturation 99%. Appears in no acute distress. HEENT: Examination is grossly unremarkable. No supplemental O2 noted. NECK: Supple full range of motion. No adenopathy. Neck veins are flat. CARDIOVASCULAR: Examination reveals regular rhythm rate. Heart rate 74 beats per minute. S1, S2 normal. Heart sounds are distant. LUNGS: Reveal mostly clear breath sounds. A few scattered rhonchi. No wheezes or crackles. ABDOMEN: Soft, bowel sounds are heard. EXTREMITIES are intact. No cyanosis, clubbing, or edema. SKIN: Without rash. NEUROLOGIC: Examination is brief but nonfocal. LABORATORY DATA: White count 5.1, hemoglobin 8.7, hematocrit 27.1, platelet count 104,000, sodium 134, potassium 4.2 chloride 101, CO2 21, anion gap is 12. BUN and creatinine were 58, 1.69. Ammonia level mildly elevated at 53. Microbiology is negative. No recent x-ray to report. ASSESSMENT: 1. Acute on chronic anemia related to GI blood loss, with anticipated EGD tomorrow. 2. Status post transfusion of 1 unit of PRBCs. 3. History of previous GI bleed August 2019, status post EGD and colonoscopy revealing small hiatal hernia, no active bleeding from the upper gastrointestinal tract, and a colonoscopy which revealed diffuse diverticulosis without active bleeding. 4. Chronic liver cirrhosis with hyperammonemia and encephalopathy. 5. Acute urinary tract infection. 6. Mental status changes, related to hepatic encephalopathy. 7. Acute kidney injury. 8. Previous history of VRE urinary tract infection. 9. Chronic CHF with diastolic dysfunction. 10.Diabetes mellitus, type 2. 11.Hypertension. 12.Hyperlipidemia. 13.Seizure disorder. 14.Chronic medical debility. 15.Chronic stage III COPD. PLAN: Currently, the patient is doing reasonably well. From the pulmonary status, she is stable. She is not requiring any supplemental oxygen. She denies any respiratory issues. The patient is scheduled to have an EGD tomorrow. No additional recommendations are made. We will continue to follow. MMODL / IJN: [id number] /
--- NOTE | 2019-12-24 17:54 | NM ---
EXAMINATION TYPE: NM GI bleeding DATE OF EXAM: 12/24/2019 HISTORY: COMPARISON: NONE Following administration of 3 ml PYP 23.1 mCi Tc 99m Sodium Pertechnete. Immediate images post inject ion. FINDINGS: Normal tracer activity is seen in the blood pool of the abdominal aorta, common iliac arteries, femor al arteries, liver, and spleen on all of the interval images. Later images show accumulation of trace r in the urinary bladder, which is consistent with excreted tracer. No abnormal tracer uptake is pres ent outside the blood pool that would be consistent with an active GI bleed. IMPRESSION: No evidence of active GI bleeding.
[2019-12-24] MEDS: THIAMINE 100 MG TAB PO SCH (18:08)
[2019-12-24] MEDS: MULTIVITAMINS, THERA 1 EACH TAB PO SCH (18:08)
[2019-12-24 18:22] LABS: Glucose,Whole Blood 142 mg/dL (75-99)
--- NOTE | 2019-12-24 18:34 | PN ---
PROGRESS NOTE DATE OF SERVICE: 12/24/2019 This 69-year-old woman who was admitted with recurrent diverticular bleed had multiple endoscopies previously. The patient still has continued bleeding. Hemoglobin is 8.7 currently. During the current admission, the patient had 3 units of transfusion. Surgical evaluation has been sought. Gastroenterology is following the patient closely. Surgery has seen the patient. Tagged RBC scan was recommended. Patient also had high ammonia. Lactulose has been given. Ammonia is slightly improving at this time. Past medical history reviewed. REVIEW OF SYSTEMS: CARDIOVASCULAR SYSTEM: No angina, palpitations. RESPIRATORY SYSTEM: As mentioned earlier. GI: As mentioned earlier. : No dysuria or retention. NERVOUS SYSTEM: No numbness, weakness. CURRENT MEDICATIONS: Tylenol, [place], Arimidex, daptomycin, vitamin D2, folic acid, Neurontin, Dilaudid, NovoLog, Cephulac, melatonin, Zaroxolyn, lopressor, Narcan, Zofran, Protonix, aldactone, Demadex. PHYSICAL EXAMINATION: Patient is alert, oriented x2. Pulse 74, blood pressure 89/56, respiration 14, temperature 97.6, pulse ox 99% on room air. HEENT: Conjunctivae normal. NECK: No jugular venous distention. CARDIOVASCULAR SYSTEM: S1, S2 muffled. RESPIRATORY SYSTEM: Breath sounds diminished at the bases. A few scattered rhonchi and crackles. ABDOMEN: Soft, obese, non-tender. No mass palpable. LEGS: No edema. No swelling. NERVOUS SYSTEM: No focal deficit. No asterixis. LABS: WBC 5.2, hemoglobin 8.1, sodium 134. ASSESSMENT: 1. Acute lower gastrointestinal bleed with possibly recurrent diverticular bleed. Rule out variceal bleed. 2. Elevated blood loss anemia, status post 3 blood transfusions during this admission. 3. Change in mental status, acute metabolic hepatic encephalopathy. 4. Thrombocytopenia secondary to chronic liver disease. 5. Increased creatinine with chronic kidney disease, stage 3. 6. Elevated total bilirubin secondary to chronic liver disease. 7. Acute urinary tract infection, present on admission. 8. History of congestive heart failure, ejection fraction unknown. 9. History of chronic obstructive pulmonary disease. 10.Diabetes mellitus, type 2. 11.Fibromyalgia. 12.Hypertension. 13.Hyperlipidemia. 14.History of rheumatoid arthritis. 15.History of seizure disorder. 16.History of supraventricular tachycardia. 17.History of breast cancer with right-sided mastectomy and chemotherapy. 18.History of peripheral neuropathy. 19.History of chronic anxiety. 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 21.History of breast surgery. 22.History of cholecystectomy. 23.History of mastectomy. 24.FULL CODE. RECOMMENDATIONS AND DISCUSSION: I recommend to continue current medications, continue with the monitoring, symptomatic treatment. Otherwise at this time I recommend continuing with lactulose. Surgical evaluation noted. RBC tagged scan. Repeat labs. Repeat ammonia. Continue the lactulose. Closely follow with Gastroenterology. Guarded prognosis. Further recommendations to follow. MMODL / IJN: [id number] /
[2019-12-24 20:13] LABS: Glucose,Whole Blood 279 mg/dL (75-99)
[2019-12-24] MEDS: HYDROcodone/APAP 10-325MG 1 EACH TAB PO PRN (20:52)
[2019-12-25 06:28] LABS: Glucose,Whole Blood 143 mg/dL (75-99)
[2019-12-25] MEDS: TORSEMIDE 20 MG TAB PO SCH ×2 (06:56→15:19)
[2019-12-25] MEDS: INSULIN ASPART (NovoLOG) 100 UNIT/ML VIAL SQ SCH ×4 (06:56→21:27)
[2019-12-25] MEDS: SODIUM CHLORIDE 0.9% 1,000 ML IV SCH (06:57)
[2019-12-25 08:50] LABS: Anisocytosis Slight; Basophils # (A) 0.1 k/uL (0-0.2); Basophils % (A) 1 %; Eosinophils # (A) 0.3 k/uL (0-0.7); Eosinophils % (A) 4 %; HCT 27.5 % (34.0-46.0); HGB 8.9 gm/dL (11.4-16.0); Hypochromasia Slight; Lymphocytes # (A) 1.7 k/uL (1.0-4.8); Lymphocytes % (A) 27 %; MCH 29.9 pg (25.0-35.0); MCHC 32.3 g/dL (31.0-37.0); MCV 92.7 fL (80.0-100.0); Mean Platelet Volume 8.7; Monocytes # (A) 0.3 k/uL (0-1.0); Monocytes % (A) 5 %; Neutrophils # (A) 3.8 k/uL (1.3-7.7); Neutrophils % (A) 61 %; Platelet Count 120 k/uL (150-450); Poikilocytosis Slight; RBC 2.97 m/uL (3.80-5.40); RDW 16.1 % (11.5-15.5); WBC 6.3 k/uL (3.8-10.6)
--- NOTE | 2019-12-25 09:28 | P.PN ---
Subjective Progress Note Date: 12/25/19 CHIEF COMPLAINT: GI bleed HISTORY OF PRESENT ILLNESS: Patient seen and examined with Dr. brunner. Patinithya nt reports having diarrhea that is still maroon in color. Likely this is old blood. Her tagged RBC was negative. Hemoglobin has come up from 8.7-8.9 afebrile. WBC 6.3. Patient declined endoscopies. PHYSICAL EXAM: VITAL SIGNS: Reviewed. GENERAL: Well-developed in no acute distress. HEENT: No sclera icterus. Extraocular movements grossly intact. Moist buccal mucosa. Head is atraumatic, normocephalic. ABDOMEN: Soft. Nondistended. Nontender. NEUROLOGIC: Alert and oriented. Cranial nerves II through XII grossly intact. ASSESSMENT: 1. GI bleed with maroon-colored stools likely old blood. 2. Acute blood loss anemia requiring blood transfusion during this admission 3. Prior history of GI bleed and diverticular bleed 4. Previous EGD and colonoscopy in August 2019 revealing no evidence of upper GI bleeding and a small hiatal hernia, gastritis. Colonoscopy showed diverticulosis and old blood and blood clots PLAN: -Advance diet to a soft dysphagia diet -Continue to monitor hemoglobin -No surgical intervention planned at this time Physician Certified Breastfeeding Educator note has been reviewed by physician. Signing provider agrees with the documented findings, assessment, and plan of care. Objective - Vital Signs Vital signs: Vital Signs Temp 97.4 F L 12/25/19 07:45 Pulse 83 12/25/19 08:34 Resp 14 12/25/19 08:34 BP 110/59 12/25/19 07:45 Pulse Ox 100 12/25/19 07:45 Intake & Output 12/24/19 12/25/19 12/25/19 18:59 06:59 18:59 Intake Total 600 Output Total 900 620 Balance -300 -620 Weight 90.1 kg Intake: Oral 600 Output: Urine 900 620 Other: Voiding Method Bedpan Bedpan # Voids 1 2 # Bowel Movements 1 3 - Labs CBC & Chem 7: 12/25/19 08:21 12/24/19 08:28 Labs: Abnormal Lab Results - Last 24 Hours (Table) 12/24/19 12/24/19 12/24/19 Range/Units 08:28 08:28 08:28 RBC 2.85 L (3.80-5.40) m/uL Hgb 8.7 L (11.4-16.0) gm/dL Hct 27.1 L (34.0-46.0) % RDW 16.2 H (11.5-15.5) % Plt Count 104 L (150-450) k/uL Sodium 134 L (137-145) mmol/L Carbon Dioxide 21 L (22-30) mmol/L BUN 58 H (7-17) mg/dL Creatinine 1.69 H (0.52-1.04) mg/dL Glucose 202 H (74-99) mg/dL POC Glucose (mg/dL) (75-99) mg/dL Ammonia 53 H (<30) umol/L 12/24/19 12/24/19 12/24/19 Range/Units 11:38 11:39 18:10 RBC (3.80-5.40) m/uL Hgb (11.4-16.0) gm/dL Hct (34.0-46.0) % RDW (11.5-15.5) % Plt Count (150-450) k/uL Sodium (137-145) mmol/L Carbon Dioxide (22-30) mmol/L BUN (7-17) mg/dL Creatinine (0.52-1.04) mg/dL Glucose (74-99) mg/dL POC Glucose (mg/dL) 202 H 205 H 142 H (75-99) mg/dL Ammonia (<30) umol/L 12/24/19 12/25/19 12/25/19 Range/Units 20:12 06:27 08:21 RBC 2.97 L (3.80-5.40) m/uL Hgb 8.9 L (11.4-16.0) gm/dL Hct 27.5 L (34.0-46.0) % RDW 16.1 H (11.5-15.5) % Plt Count 120 L (150-450) k/uL Sodium (137-145) mmol/L Carbon Dioxide (22-30) mmol/L BUN (7-17) mg/dL Creatinine (0.52-1.04) mg/dL Glucose (74-99) mg/dL POC Glucose (mg/dL) 279 H 143 H (75-99) mg/dL Ammonia (<30) umol/L Microbiology - Last 24 Hours (Table) 12/21/19 20:24 Blood Culture - Preliminary Blood No Growth after 72 hours
[2019-12-25] MEDS: GABAPENTIN 100 MG CAP PO SCH ×3 (09:40→21:26)
[2019-12-25] MEDS: FOLIC ACID 1 MG TAB PO SCH (09:40)
[2019-12-25] MEDS: ANASTROZOLE 1 MG TAB PO SCH (09:40)
[2019-12-25] MEDS: METOPROLOL TARTRATE 25 MG TAB PO SCH ×2 (09:40→21:27)
[2019-12-25] MEDS: RIFAXIMIN 550 MG TABLET PO SCH ×2 (09:41→21:26)
[2019-12-25] MEDS: PANTOPRAZOLE 40 MG/10 ML VIAL IV SCH ×2 (09:48→21:27)
[2019-12-25] MEDS: metOLazone 5 MG TAB PO SCH (10:01)
[2019-12-25] MEDS: SPIRONOLACTONE 25 MG TAB PO SCH (10:01)
[2019-12-25 11:25] VITALS: BMI 33.0
[2019-12-25 11:51] LABS: Glucose,Whole Blood 346 mg/dL (75-99)
--- NOTE | 2019-12-25 13:41 | P.PN ---
Subjective Progress Note Date: 12/25/19 Principal diagnosis: GI bleed Patient seen and examined at the bedside. She is reporting that she still having some diarrhea that is brown in color. She had a tagged RBC that was negative and surgical services is on consult. Objective - Vital Signs Vital signs: Vital Signs Temp 98.0 F 12/25/19 12:15 Pulse 87 12/25/19 12:15 Resp 14 12/25/19 12:15 BP 99/55 12/25/19 13:00 Pulse Ox 96 12/25/19 12:15 Intake & Output 12/24/19 12/25/19 12/25/19 18:59 06:59 18:59 Intake Total 600 Output Total 900 620 400 Balance -300 -620 -400 Weight 90.1 kg 90.1 kg Intake: Oral 600 Output: Urine 900 620 400 Other: Voiding Method Bedpan Bedpan # Voids 1 2 # Bowel Movements 1 3 - Exam General appearance: The patient is alert, oriented, in no acute distress. HET: Head is normocephalic and atraumatic. Conjunctiva pink. Sclera anicteric. Neck: Supple without lymphadenopathy. Abdomen: Soft, nontender, nondistended with bowel sounds. No guarding or rigidity. Extremities: Normal skin color and turgor. No pedal edema Neurological: No focal deficits. Alert and oriented 3. - Labs CBC & Chem 7: 12/25/19 08:21 12/24/19 08:28 Labs: Abnormal Lab Results - Last 24 Hours (Table) 12/24/19 12/24/19 12/25/19 Range/Units 18:10 20:12 06:27 RBC (3.80-5.40) m/uL Hgb (11.4-16.0) gm/dL Hct (34.0-46.0) % RDW (11.5-15.5) % Plt Count (150-450) k/uL POC Glucose (mg/dL) 142 H 279 H 143 H (75-99) mg/dL 12/25/19 12/25/19 Range/Units 08:21 11:50 RBC 2.97 L (3.80-5.40) m/uL Hgb 8.9 L (11.4-16.0) gm/dL Hct 27.5 L (34.0-46.0) % RDW 16.1 H (11.5-15.5) % Plt Count 120 L (150-450) k/uL POC Glucose (mg/dL) 346 H (75-99) mg/dL Microbiology - Last 24 Hours (Table) 12/21/19 20:24 Blood Culture - Preliminary Blood No Growth after 72 hours Assessment and Plan (1) Cirrhosis Narrative/Plan: 69-year-old female with multiple medical comorbidities who presented to the hospital due to altered mental status. Currently being treated for urinary tract infection. She was also found to have markedly elevated ammonia of 167 on presentation. patient had previously been on lactulose and rifaximin therapy, currently not listed as one of her home medications. Extensive endoscopic evaluation for GI bleed in 08/2019 with EGD with findings of hiatal hernia and gastritis, colonoscopy with findings of diverticulosis and clots throughout the colon prohibiting complete visualization of the mucosa and video capsule endoscopy with findings of old blood in the colon with no active bleeding. No varices were seen at that time. Current Visit: Yes Status: Acute Code(s): K74.60 - UNSPECIFIED CIRRHOSIS OF LIVER SNOMED Code(s): 78593136 (2) Anemia Current Visit: Yes Status: Acute Code(s): D64.9 - ANEMIA, UNSPECIFIED SNOMED Code(s): 771241298 (3) Encephalopathy Narrative/Plan: Likely multifactorial and may be related to urinary tract infection as well as hepatic encephalopathy Current Visit: No Status: Acute Code(s): G93.40 - ENCEPHALOPATHY, UNSPECIFIED SNOMED Code(s): 40027666 (4) Anemia associated with acute blood loss Narrative/Plan: Surgical consult added to evaluate for possible diverticular bleed.. Patient underwent tagged RBC that was negative. Current Visit: No Status: Acute Code(s): D62 - ACUTE POSTHEMORRHAGIC ANEMIA SNOMED Code(s): 490329976 Plan: supportive care Full liquid diet Monitor for signs or symptoms of GI bleeding Continue to monitor CBC and transfuse as needed Continue Protonix therapy The patient is declining any endoscopies at this time Continue rifaximin therapy Continue monitor clinically Appreciate recommendations from surgical services Thank you for allowing us to participate in the care of the patient The impression and plan of care has been dictated as directed. I performed a history and examination of this patient, discussed the same with the dictator. I agree with the dictator's note ,documented as a scribe. Any additional findings or plans will be noted.
--- NOTE | 2019-12-25 14:32 | P.PN ---
Subjective Progress Note Date: 12/25/19 Principal diagnosis: GI bleed The patient is seen today 12/25/2019 in follow-up on the selective care unit. She has not had any further active bleeding. She is maintaining O2 saturations in the 90s on room air. 0.9 normal saline at 50 MLS per hour. She did have a tagged RBC scan that revealed no evidence of active GI bleeding. She is status post 1 unit of packed red blood cells this admission. Current hemoglobin 8.9. White count 6.3. Platelets 120,000. Remains on daptomycin. Objective - Vital Signs Vital signs: Vital Signs Temp 98.0 F 12/25/19 12:15 Pulse 87 12/25/19 12:15 Resp 14 12/25/19 12:15 BP 99/55 12/25/19 13:00 Pulse Ox 96 12/25/19 12:15 Intake & Output 12/24/19 12/25/19 12/25/19 18:59 06:59 18:59 Intake Total 600 Output Total 900 620 400 Balance -300 -620 -400 Weight 90.1 kg 90.1 kg Intake: Oral 600 Output: Urine 900 620 400 Other: Voiding Method Bedpan Bedpan # Voids 1 2 # Bowel Movements 1 3 - Exam GENERAL EXAM: Alert, pleasant, 69-year-old female patient, on room air, with a pulse ox of 96% comfortable in no apparent distress. HEAD: Normocephalic/atraumatic. EYES: Normal reaction of pupils, equal size. Conjunctiva pink, sclera white. NOSE: Clear with pink turbinates. THROAT: No erythema or exudates. NECK: No masses, no JVD, no thyroid enlargement, no adenopathy. CHEST: No chest wall deformity. Symmetrical expansion. LUNGS: Equal air entry with no crackles, wheeze, rhonchi or dullness. CVS: Regular rate and rhythm, normal S1 and S2, no gallops, no murmurs, no rubs ABDOMEN: Soft, nontender. No hepatosplenomegaly, normal bowel sounds, no guarding or rigidity. EXTREMITIES: No clubbing, no edema, no cyanosis, 2+ pulses and upper and lower extremities. MUSCULOSKELETAL: Muscle strength and tone normal. SPINE: No scoliosis or deformity SKIN: No rashes CENTRAL NERVOUS SYSTEM: No focal deficits, tone is normal in all 4 extremities. PSYCHIATRIC: Alert and oriented -3. Appropriate affect. Intact judgment and insight. - Labs CBC & Chem 7: 12/25/19 08:21 12/24/19 08:28 Labs: Abnormal Lab Results - Last 24 Hours (Table) 12/24/19 12/24/19 12/25/19 Range/Units 18:10 20:12 06:27 RBC (3.80-5.40) m/uL Hgb (11.4-16.0) gm/dL Hct (34.0-46.0) % RDW (11.5-15.5) % Plt Count (150-450) k/uL POC Glucose (mg/dL) 142 H 279 H 143 H (75-99) mg/dL 12/25/19 12/25/19 Range/Units 08:21 11:50 RBC 2.97 L (3.80-5.40) m/uL Hgb 8.9 L (11.4-16.0) gm/dL Hct 27.5 L (34.0-46.0) % RDW 16.1 H (11.5-15.5) % Plt Count 120 L (150-450) k/uL POC Glucose (mg/dL) 346 H (75-99) mg/dL Microbiology - Last 24 Hours (Table) 12/21/19 20:24 Blood Culture - Preliminary Blood No Growth after 72 hours Assessment and Plan Assessment: #1. Acute on chronic anemia related to GI blood losses, patient is passing large dark stools, status post transfusion with 1 unit of packed red blood cells. Take her blood cells revealed no acute active bleeding on 12/24/2019. Current hemoglobin 8.9. #2. History of previous GI bleeding, is post-EGD and colonoscopy in August 2019 revealing no evidence of upper GI bleeding and a small hiatal hernia, colonoscopy showed diverticulosis, and old blood and blood clots #3. Chronic liver cirrhosis, with tach encephalopathy, on Xifaxan, ammonia level is 167 down to 81 on today's lab #4. Acute urinary tract infection #5. Altered mental status, multifactorial, could be in part related to acute [place] I, hepatic encephalopathy #6. Acute kidney injury, improving #7. Previous history of VRE urinary tract infection #8. Chronic CHF with diastolic dysfunction #9. Diabetes mellitus type 2 #10. Hypertension #11. Hyperlipidemia #12. Seizure disorder #13. Chronic medical debility, patient is a resident of a local [facility] #14. Chronic stage III COPD Plan: The patient was seen and evaluated by Dr. Leahy Currently stable from the pulmonary standpoint No surgical intervention is planned currently We'll continue to follow I, the cosigning physician, performed a history & physical examination of the patient. Lungs sounds are clear. Maintaining good O2 saturations in the 90s on room air. I discussed the assessment and plan of care with my nurse practitioner, Dodie Carvalho. I attest to the above note as dictated by her.
[2019-12-25] MEDS: THIAMINE 100 MG TAB PO SCH (15:19)
[2019-12-25] MEDS: MULTIVITAMINS, THERA 1 EACH TAB PO SCH (15:19)
[2019-12-25 16:36] LABS: Glucose,Whole Blood 213 mg/dL (75-99)
--- NOTE | 2019-12-25 20:14 | PN ---
PROGRESS NOTE DATE OF SERVICE: 12/25/2019 This 69-year-old woman who was admitted with acute lower GI bleed had recurrent diverticular bleed. The RBC tagged scan that was done showed no evidence of any active GI bleeding at this time. Surgery has seen the patient and recommended no surgical intervention at this time. Past medical history reviewed. REVIEW OF SYSTEMS: CARDIOVASCULAR SYSTEM: No angina, palpitations. RESPIRATORY SYSTEM: As mentioned earlier. GI: As mentioned earlier. : No dysuria or retention. NERVOUS SYSTEM: No numbness, weakness. CURRENT MEDICATIONS: Reviewed. They include Tylenol, [place] 10 mg, Arimidex, vitamin D2, folic acid, Neurontin, Dilaudid. Doses are reviewed. PHYSICAL EXAMINATION: Patient is alert and oriented x1. Pulse 88, blood pressure 97/53, respiration 19, temperature 97.8, pulse ox 100% on room air. HEENT: Conjunctivae normal. NECK: No jugular venous distention. CARDIOVASCULAR SYSTEM: S1, S2 muffled. RESPIRATORY SYSTEM: Breath sounds diminished at the bases. Scattered rhonchi and crackles. ABDOMEN: Soft, obese, non-tender. LEGS: No edema. No swelling. NERVOUS SYSTEM: No focal deficit. LABS: Hemoglobin 8.9, sodium 134. Ammonia is 18. ASSESSMENT: 1. Acute lower gastrointestinal bleed, possibly recurrent diverticular bleed. Rule out variceal bleeding. 2. Acute blood loss anemia, status post 3 units of transfusion during this admission. 3. Change in mental status, acute metabolic encephalopathy. 4. Thrombocytopenia secondary to chronic liver disease. 5. Increased creatinine with chronic kidney disease, stage 3. 6. Elevated total bilirubin secondary to chronic liver disease. 7. Acute urinary tract infection, present on admission. 8. History of congestive heart failure, ejection fraction unknown. 9. History of chronic obstructive pulmonary disease. 10.Diabetes mellitus, type 2. 11.Fibromyalgia. 12.Hypertension. 13.Hyperlipidemia. 14.History of rheumatoid arthritis. 15.History of seizure disorder. 16.History of supraventricular tachycardia. 17.History of breast cancer with right-sided mastectomy and chemotherapy. 18.History of peripheral neuropathy. 19.History of chronic anxiety. 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 21.History of breast surgery. 22.History of cholecystectomy. 23.History of mastectomy. 24.FULL CODE. RECOMMENDATIONS AND DISCUSSION: I recommend to continue current medications, continue with the monitoring, symptomatic treatment. Otherwise at this time I would recommend continuing with the antibiotics and lactulose. Surgical input appreciated, but if the patient has recurrent bleeding, she might be a candidate for surgery. Once again, the prognosis is guarded. Further recommendations to follow. MMMADELYNL / IJN: [id number] /
[2019-12-25 20:24] LABS: Glucose,Whole Blood 195 mg/dL (75-99)
[2019-12-25] MEDS: DAPTOmycin 500 MG in SODIUM CHLORIDE 0.9% 50 ML IVPB SCH (21:27)
[2019-12-26] MEDS: HYDROcodone/APAP 10-325MG 1 EACH TAB PO PRN (03:17)
[2019-12-26 05:54] LABS: Glucose,Whole Blood 312 mg/dL (75-99)
[2019-12-26] MEDS: TORSEMIDE 20 MG TAB PO SCH ×2 (06:48→15:06)
[2019-12-26] MEDS: SODIUM CHLORIDE 0.9% 1,000 ML IV SCH (06:48)
[2019-12-26] MEDS: INSULIN ASPART (NovoLOG) 100 UNIT/ML VIAL SQ SCH ×2 (06:49→12:13)
[2019-12-26] MEDS: metOLazone 5 MG TAB PO SCH (08:57)
[2019-12-26] MEDS: METOPROLOL TARTRATE 25 MG TAB PO SCH (08:57)
[2019-12-26] MEDS: FOLIC ACID 1 MG TAB PO SCH (08:57)
[2019-12-26] MEDS: SPIRONOLACTONE 25 MG TAB PO SCH (08:57)
[2019-12-26] MEDS: GABAPENTIN 100 MG CAP PO SCH ×2 (08:57→15:06)
[2019-12-26] MEDS: RIFAXIMIN 550 MG TABLET PO SCH (08:57)
[2019-12-26] MEDS: ANASTROZOLE 1 MG TAB PO SCH (08:57)
[2019-12-26] MEDS: PANTOPRAZOLE 40 MG/10 ML VIAL IV SCH ×2 (08:58→12:04)
[2019-12-26 10:08] LABS: Basophils % (A) 1 %; Eosinophils # (A) 0.2 k/uL (0-0.7); Eosinophils % (A) 3 %; HCT 25.2 % (34.0-46.0); HGB 8.4 gm/dL (11.4-16.0); Hypochromasia Slight; Lymphocytes # (A) 1.3 k/uL (1.0-4.8); Lymphocytes % (A) 25 %; MCH 31.1 pg (25.0-35.0); MCHC 33.4 g/dL (31.0-37.0); MCV 92.9 fL (80.0-100.0); Mean Platelet Volume 9.1; Monocytes # (A) 0.4 k/uL (0-1.0); Monocytes % (A) 7 %; Neutrophils # (A) 3.2 k/uL (1.3-7.7); Neutrophils % (A) 62 %; Platelet Count 104 k/uL (150-450); Poikilocytosis Slight; RBC 2.72 m/uL (3.80-5.40); RDW 15.5 % (11.5-15.5); WBC 5.3 k/uL (3.8-10.6)
[2019-12-26 11:35] VITALS: RESP 16
[2019-12-26 11:44] LABS: Glucose,Whole Blood 232 mg/dL (75-99)
--- NOTE | 2019-12-26 13:58 | P.PN ---
Subjective Progress Note Date: 12/26/19 Principal diagnosis: GI bleed The patient is seen today 12/25/2019 in follow-up on the selective care unit. She has not had any further active bleeding. She is maintaining O2 saturations in the 90s on room air. 0.9 normal saline at 50 MLS per hour. She did have a tagged RBC scan that revealed no evidence of active GI bleeding. She is status post 1 unit of packed red blood cells this admission. Current hemoglobin 8.9. White count 6.3. Platelets 120,000. Remains on daptomycin. Patient is seen today 12/26/2019 in follow-up on the selective care unit. She is currently resting comfortably in bed. Awake and alert in no acute distress. No further GI bleeding noted. No pulmonary complaints. She is maintaining O2 saturations in the high 90s on room air. She's afebrile. White count 5.3. Hemoglobin 8.4. Objective - Vital Signs Vital signs: Vital Signs Temp 98.1 F 12/26/19 08:50 Pulse 80 12/26/19 11:35 Resp 16 12/26/19 11:35 BP 88/60 12/26/19 11:35 Pulse Ox 99 12/26/19 11:35 Intake & Output 12/25/19 12/26/19 12/26/19 18:59 06:59 18:59 Intake Total 240 360 Output Total 1400 600 300 Balance -1160 -600 60 Weight 90.1 kg 100 kg Intake: Oral 240 360 Output: Urine 1400 600 300 Other: Voiding Method Bedside Commode Bedside Commode # Voids 3 2 - Exam GENERAL EXAM: Alert, pleasant, 69-year-old female patient, on room air, with a pulse ox of 98% comfortable in no apparent distress. HEAD: Normocephalic/atraumatic. EYES: Normal reaction of pupils, equal size. Conjunctiva pink, sclera white. NOSE: Clear with pink turbinates. THROAT: No erythema or exudates. NECK: No masses, no JVD, no thyroid enlargement, no adenopathy. CHEST: No chest wall deformity. Symmetrical expansion. LUNGS: Equal air entry with no crackles, wheeze, rhonchi or dullness. CVS: Regular rate and rhythm, normal S1 and S2, no gallops, no murmurs, no rubs ABDOMEN: Soft, nontender. No hepatosplenomegaly, normal bowel sounds, no guarding or rigidity. EXTREMITIES: No clubbing, no edema, no cyanosis, 2+ pulses and upper and lower extremities. MUSCULOSKELETAL: Muscle strength and tone normal. SPINE: No scoliosis or deformity SKIN: No rashes CENTRAL NERVOUS SYSTEM: No focal deficits, tone is normal in all 4 extremities. PSYCHIATRIC: Alert and oriented -3. Appropriate affect. Intact judgment and insight. - Labs CBC & Chem 7: 12/26/19 06:42 12/24/19 08:28 Labs: Abnormal Lab Results - Last 24 Hours (Table) 12/25/19 12/25/19 12/26/19 Range/Units 16:34 20:23 05:52 RBC (3.80-5.40) m/uL Hgb (11.4-16.0) gm/dL Hct (34.0-46.0) % Plt Count (150-450) k/uL POC Glucose (mg/dL) 213 H 195 H 312 H (75-99) mg/dL 12/26/19 12/26/19 Range/Units 06:42 11:43 RBC 2.72 L (3.80-5.40) m/uL Hgb 8.4 L (11.4-16.0) gm/dL Hct 25.2 L (34.0-46.0) % Plt Count 104 L (150-450) k/uL POC Glucose (mg/dL) 232 H (75-99) mg/dL Microbiology - Last 24 Hours (Table) 12/21/19 20:24 Blood Culture - Preliminary Blood No Growth after 96 hours Assessment and Plan Assessment: #1. Acute on chronic anemia related to GI blood losses, patient is passing large dark stools, status post transfusion with 1 unit of packed red blood cells. Tagged red blood cells revealed no acute active bleeding on 12/24/2019. Current hemoglobin 8.4. #2. History of previous GI bleeding, is post-EGD and colonoscopy in August 2019 revealing no evidence of upper GI bleeding and a small hiatal hernia, colonoscopy showed diverticulosis, and old blood and blood clots #3. Chronic liver cirrhosis, with tach encephalopathy, on Xifaxan, ammonia level is 167 down to 81 on today's lab #4. Acute urinary tract infection #5. Altered mental status, multifactorial, could be in part related to acute UTI, hepatic encephalopathy #6. Acute kidney injury, improving #7. Previous history of VRE urinary tract infection #8. Chronic CHF with diastolic dysfunction #9. Diabetes mellitus type 2 #10. Hypertension #11. Hyperlipidemia #12. Seizure disorder #13. Chronic medical debility, patient is a resident of a local [facility] #14. Chronic stage III COPD Plan: The patient was seen and evaluated by Dr. Leahy Currently stable from the pulmonary standpoint We will see her on an as-needed basis I, the cosigning physician, performed a history & physical examination of the patient. Lungs sounds are clear. Maintaining good O2 saturations in the 90s on room air. I discussed the assessment and plan of care with my nurse practitioner, Dodie Carvalho. I attest to the above note as dictated by her.
--- NOTE | 2019-12-26 13:59 | P.PN ---
Subjective Progress Note Date: 12/26/19 CHIEF COMPLAINT: GI bleed HISTORY OF PRESENT ILLNESS: Patient has had reports her last bowel movement had no blood or maroon colored stool present. Her tagged RBC was negative. Hemoglobin down from 8.9 to 8.4. Patient is tolerating diet. Denies any abdominal pain. Denies any nausea or vomiting. Patient afebrile. WBC 5.3 discussed case with GI nurse practitioner. They reviewed the capsule endoscopy which did show a distal ileum and right colon that had old blood present. PHYSICAL EXAM: VITAL SIGNS: Reviewed. GENERAL: Well-developed in no acute distress. HEENT: No sclera icterus. Extraocular movements grossly intact. Moist buccal mucosa. Head is atraumatic, normocephalic. ABDOMEN: Soft. Nondistended. Nontender. NEUROLOGIC: Alert and oriented. Cranial nerves II through XII grossly intact. ASSESSMENT: 1. GI bleed with maroon-colored stools likely old blood. 2. Acute blood loss anemia requiring blood transfusion during this admission 3. Prior history of GI bleed and diverticular bleed 4. Previous EGD and colonoscopy in August 2019 revealing no evidence of upper GI bleeding and a small hiatal hernia, gastritis. Colonoscopy showed diverticulosis and old blood and blood clots PLAN: -No surgical intervention planned at this time -Patient is surgically stable for discharge. She will follow-up with Dr. Seaman in 1 week Physician Skiving Machine Operator note has been reviewed by physician. Signing provider agrees with the documented findings, assessment, and plan of care. Objective - Vital Signs Vital signs: Vital Signs Temp 98.1 F 12/26/19 08:50 Pulse 70 12/26/19 08:50 Resp 18 12/26/19 08:50 BP 87/55 12/26/19 08:50 Pulse Ox 98 12/26/19 08:50 Intake & Output 12/25/19 12/26/19 12/26/19 18:59 06:59 18:59 Intake Total 240 360 Output Total 1400 600 300 Balance -1160 -600 60 Weight 90.1 kg 100 kg Intake: Oral 240 360 Output: Urine 1400 600 300 Other: Voiding Method Bedside Commode Bedside Commode # Voids 3 2 - Labs CBC & Chem 7: 12/26/19 06:42 12/24/19 08:28 Labs: Abnormal Lab Results - Last 24 Hours (Table) 12/25/19 12/25/19 12/25/19 Range/Units 11:50 16:34 20:23 RBC (3.80-5.40) m/uL Hgb (11.4-16.0) gm/dL Hct (34.0-46.0) % Plt Count (150-450) k/uL POC Glucose (mg/dL) 346 H 213 H 195 H (75-99) mg/dL 12/26/19 12/26/19 Range/Units 05:52 06:42 RBC 2.72 L (3.80-5.40) m/uL Hgb 8.4 L (11.4-16.0) gm/dL Hct 25.2 L (34.0-46.0) % Plt Count 104 L (150-450) k/uL POC Glucose (mg/dL) 312 H (75-99) mg/dL Microbiology - Last 24 Hours (Table) 12/21/19 20:24 Blood Culture - Preliminary Blood No Growth after 96 hours
--- NOTE | 2019-12-26 14:57 | P.DS ---
Providers Date of admission: 12/21/19 14:36 Expected date of discharge: 12/26/19 Attending physician: Guy Griffith Consults: 12/21/19 14:37 Consult Physician Urgent Consulting Provider: Vanessa Horna Consult Reason/Comments: She had a blade Do you want consulting provider notified?: Yes 12/22/19 20:23 Consult Physician Urgent Consulting Provider: Shaun Rios Consult Reason/Comments: ICU management Do you want consulting provider notified?: Yes, Notify in am 12/23/19 15:37 Consult Physician Routine Consulting Provider: Virgilio Seaman Consult Reason/Comments: recurrent GIB Do you want consulting provider notified?: Yes Primary care physician: [facility] Course: Presenting complaint: Lower GI bleed History of presenting complaint: Patient admitted feeling weak tired rundown. Had 2 maroon stools in the hospital. In August of this year patient had undergone EGD and colonoscopy. Showing diverticulosis. Small bowel capsule study was also unremarkable. Had a baseline patient uses a wheelchair to get about. Patient was felt to be from diverticulosis. Patient's ammonia was elevated. Patient is on Xifaxan. Patient did undergo a tagged RBC scan. Negative. On this admission patient refused any endoscopy. Today-starting a diet. No further bowel movement. Patient had received 1 unit of blood. No abdominal pain. Feeling well. Hemoglobin admission was 9. Hemoglobin today is 8.4. I did stop patient's Demadex. Patient put on fluid restriction. Urine culture unremarkable. Antibiotics discontinued. Discussion and discharge planning more than 35 minutes Consultation: Dr. Wood from GI Dr. Leahy from pulmonary Dr. Seaman from general surgery On examination: Vital signs 98.1, 80, 16, 88/60, 99% room air. Gen. appearance sitting up in bed, awake comfortable Abdomen-soft, nontender, Psychiatry-AO 3 Investigations: White count 5.3 hemoglobin 8.4 platelets 104 Accu-Cheks 232 BMP-potassium 4.2 creatinine 1.69 BUN 58 Ammonia 53 Computed tomography scan of the abdomen-cirrhosis, splenomegaly, perigastric and perisplenic varices Tagged RBC scan-negative Assessment: -Acute lower GI bleed, felt to be from colonic diverticulosis -Chronic congestive heart failure from diastolic dysfunction EF 55-60% -COPD in an ex-smoker -Diabetes mellitus type 2 on oral hypoglycemic -Chronic fibromyalgia -Hyperlipidemia -Essential hypertension -Chronic kidney disease stage III from diabetic nephropathy and hypertensive nephrosclerosis -Rheumatoid arthritis -History of breast cancer with a right-sided mastectomy -Peripheral neuropathy secondary to diabetes -Chronic anxiety depression -Obesity -Liver cirrhosis with portal hypertension Plan: [facility] Patient Condition at Discharge: Stable Plan - Discharge Summary Discharge Rx Participant: Yes New Discharge Prescriptions: Continue Anastrozole [Arimidex] 1 mg PO DAILY@0900 Sennosides [Senna] 8.6 mg PO BID@0900,2100 Pantoprazole [Protonix] 40 mg PO DAILY@0600 Ferrous Sulfate [Iron (65 MG Elemental)] 325 mg PO DAILY@0900 Ergocalciferol (Vitamin D2) [Drisdol] 50,000 unit PO Q14D@0900 Acetaminophen [Tylenol] 650 mg PO Q4H PRN PRN Reason: Fever And/ Or Pain Dextran 70/Hypromellose [Genteal Tears 0.1%-0.3% Drop] 1 drop BOTH EYES Q12H PRN PRN Reason: Dry Eye(S)/redness Rifaximin [Xifaxan] 550 mg PO BID@0900,2100 Lactulose 20 gm PO BID@0900,2100 Thiamine [Vitamin B-1] 100 mg PO DAILY@1500 Multivitamins, Thera [Multivitamin (formulary)] 1 tab PO DAILY@1500 Folic Acid 1 mg PO DAILY@0900 Ondansetron [Zofran] 4 mg PO TID PRN PRN Reason: Nausea And Vomiting Melatonin 10 mg PO HS PRN PRN Reason: Insomnia Oxymetazoline 0.05% Nasl [place] [Afrin 0.05% Nasal [place]] 1 spray NASAL Q15M PRN MDD 3 DOSES PRN Reason: BLOODY NOSE metOLazone [Zaroxolyn] 5 mg PO DAILY #10 tablet Insulin Aspart [Insulin Aspart Flexpen] See Protocol SQ AC-TID Insulin Aspart [Insulin Aspart Flexpen] 4 unit SQ AC-TID HYDROcodone/APAP 10-325MG [[place] 10-325] 1 tab PO Q6HR PRN 3 Days #12 tab PRN Reason: Pain Changed Metoprolol Tartrate [Lopressor] 12.5 mg PO BID@0900,2100 #0 Gabapentin [Neurontin] 200 mg PO TID@0900,1499,2099 #9 cap Discontinued Spironolactone 50 mg PO DAILY@0900 Torsemide [Demadex] 20 mg PO BID@0600,1500 Discharge Medication List Anastrozole [Arimidex] 1 mg PO DAILY@0900 09/30/14 [History] Sennosides [Senna] 8.6 mg PO BID@0900,209904/02/18 [History] Pantoprazole [Protonix] 40 mg PO DAILY@0607/02/18 [History] Ferrous Sulfate [Iron (65 MG Elemental)] 325 mg PO DAILY@0908/16/18 [History] Ergocalciferol (Vitamin D2) [Drisdol] 50,000 unit PO Q14D@89907/19/19 [History] Acetaminophen [Tylenol] 650 mg PO Q4H PRN 08/24/19 [History] Dextran 70/Hypromellose [Genteal Tears 0.1%-0.3% Drop] 1 drop BOTH EYES Q12H PRN 08/24/19 [History] Folic Acid 1 mg PO DAILY@89908/24/19 [History] Lactulose 20 gm PO BID@0900,209908/24/19 [History] Multivitamins, Thera [Multivitamin (formulary)] 1 tab PO DAILY@149908/24/19 [History] Rifaximin [Xifaxan] 550 mg PO BID@0900,209908/24/19 [History] Thiamine [Vitamin B-1] 100 mg PO DAILY@149908/24/19 [History] Melatonin 10 mg PO HS PRN 10/25/19 [History] Ondansetron [Zofran] 4 mg PO TID PRN 10/25/19 [History] Oxymetazoline 0.05% Nasl [place] [Afrin 0.05% Nasal [place]] 1 spray NASAL Q15M PRN MDD 3 DOSES 10/25/19 [History] metOLazone [Zaroxolyn] 5 mg PO DAILY #10 tablet 11/02/19 [Rx] Insulin Aspart [Insulin Aspart Flexpen] 4 unit SQ AC-TID 12/21/19 [History] Insulin Aspart [Insulin Aspart Flexpen] See Protocol SQ AC-TID 12/21/19 [History] Gabapentin [Neurontin] 200 mg PO TID@0900,1500,2100 #9 cap 12/26/19 [Rx] HYDROcodone/APAP 10-325MG [[place] 10-325] 1 tab PO Q6HR PRN 3 Days #12 tab 12/26/19 [Rx] Metoprolol Tartrate [Lopressor] 12.5 mg PO BID@0900,2100 #0 12/26/19 [Rx] Follow up Appointment(s)/Referral(s): Tom Han MD [Primary Care Provider] - 1-2 days Virgilio Seaman MD [STAFF PHYSICIAN] - 1 Week Activity/Diet/Wound Care/Special Instructions: Fluid restrict-1800 mL a day bmp - 3 days
[2019-12-26 15:01] VITALS: BP 117/71; PULSE 87; TEMP 97.9
[2019-12-26] MEDS: MULTIVITAMINS, THERA 1 EACH TAB PO SCH (15:06)
[2019-12-26] MEDS: THIAMINE 100 MG TAB PO SCH (15:06)
[2019-12-29] MEDS ORDERED: ERGOCALCIFEROL 50,000 UNIT CAP PO SCH (09:00)
== END 2019-12-26 16:13 | DRG 377 ==
LOC: EC 11:02 → 3SCARD 14:36 → 2SICU 12-22 22:09 → 3SCARD 12-23 22:17
PROVIDERS: ADMIT Hospitalist; ATTEND Hospitalist
PROC: 30233N1 Transfusion of Nonautologous Red Blood Cells into Peripheral Vein, Percutaneous Approach (ICD-10-PCS; principal; 2019-12-22)
DX: K57.31 Diverticulosis of large intestine without perforation or abscess with bleeding (principal); G93.41 Metabolic encephalopathy; I50.32 Chronic diastolic (congestive) heart failure; N17.9 Acute kidney failure, unspecified; N39.0 Urinary tract infection, site not specified; K76.6 Portal hypertension; D62 Acute posthemorrhagic anemia; Z68.43 Body mass index [BMI] 50.0-59.9, adult; I13.0 Hypertensive heart and chronic kidney disease with heart failure and stage 1 through stage 4 chronic kidney disease, or unspecified chronic kidney disease; I47.1 Supraventricular tachycardia; K44.9 Diaphragmatic hernia without obstruction or gangrene; K72.90 Hepatic failure, unspecified without coma; J44.9 Chronic obstructive pulmonary disease, unspecified; M79.7 Fibromyalgia; N18.30 Chronic kidney disease, stage 3 unspecified; K74.60 Unspecified cirrhosis of liver; M06.9 Rheumatoid arthritis, unspecified; D69.59 Other secondary thrombocytopenia; E11.22 Type 2 diabetes mellitus with diabetic chronic kidney disease; Z20.828 Contact with and (suspected) exposure to other viral communicable diseases; E11.42 Type 2 diabetes mellitus with diabetic polyneuropathy; E66.9 Obesity, unspecified; E78.5 Hyperlipidemia, unspecified; E86.0 Dehydration; F41.8 Other specified anxiety disorders; F32.9 Major depressive disorder, single episode, unspecified; G40.909 Epilepsy, unspecified, not intractable, without status epilepticus; Z90.49 Acquired absence of other specified parts of digestive tract; Z90.710 Acquired absence of both cervix and uterus; Z90.89 Acquired absence of other organs; Z88.5 Allergy status to narcotic agent; Z88.0 Allergy status to penicillin; Z88.8 Allergy status to other drugs, medicaments and biological substances; Z82.3 Family history of stroke; Z82.5 Family history of asthma and other chronic lower respiratory diseases; Z82.61 Family history of arthritis; Z83.3 Family history of diabetes mellitus; Z82.0 Family history of epilepsy and other diseases of the nervous system; Z87.440 Personal history of urinary (tract) infections; Z87.19 Personal history of other diseases of the digestive system; Z92.21 Personal history of antineoplastic chemotherapy; Z79.4 Long term (current) use of insulin; Z79.811 Long term (current) use of aromatase inhibitors; Z79.899 Other long term (current) drug therapy; Z80.1 Family history of malignant neoplasm of trachea, bronchus and lung; Z80.3 Family history of malignant neoplasm of breast; Z85.3 Personal history of malignant neoplasm of breast; Z87.891 Personal history of nicotine dependence; Z90.11 Acquired absence of right breast and nipple
CPT/HCPCS: 36415; 71046; 74176; 78278; 80048; 80053; 81001; 82140; 82550; 83036; 83605; 83735; 83880; 84132; 84484; 85025; 85027; 85610; 85730; 86850; 86870; 86880; 86900; 86901; 86902; 86920; 87040; 87086; 93005; 96360; 96361; 99285

== ENCOUNTER 2020-01-19 11:45 | Inpatient (IN) | payer MEDICARE, OTHER ==
[2020-01-19] MEDS ORDERED: PANTOPRAZOLE 40 MG/10 ML VIAL IVP STA (11:58)
[2020-01-19] MEDS ORDERED: SODIUM CHLORIDE 0.9% 500 ML 500 ML IV STA (11:58)
--- NOTE | 2020-01-19 12:01 | ED ---
Recheck HPI - General Chief Complaint: Recheck/Abnormal Lab/Rx Stated Complaint: covid +, Diarrhea Time Seen by Provider: 01/19/20 11:48 Source: patient Mode of arrival: ambulatory Limitations: no limitations - History of Present Illness Initial Comments: 70-year-old female patient presents to the emergency department today for evaluation of GI bleed. Patient has history of GI bleed in the past which has been felt to be diverticular after upper GI endoscopy and pill scan. Patient did have labs drawn a couple of days ago which showed hemoglobin 6.6, she had a redraw yesterday and they do not have results back yet. They sent her in today because she's had 3 episodes of loose stool containing bright red blood with clots. Patient denies any blurred or double vision. Denies dizziness, weakness, or shortness of breath. She denies any abdominal pain. Patient did test positive for occult blood on 01/13/2020. She denies any current cough, congestion, fever, or again shortness of breath. She denies any use of anticoagulant or antiplatelet medications. Patient denies any recent rash, nausea, vomiting, back pain, numbness, tingling, hematuria, dysuria, urinary urgency, urinary frequency, headache, visual changes, or any other complaints. - Related Data Home Medications Medication Instructions Recorded Confirmed Anastrozole [Arimidex] 1 mg PO DAILY@0900 09/30/14 01/19/20 Sennosides [Senna] 8.6 mg PO BID@0900,2100 04/02/18 01/19/20 Pantoprazole [Protonix] 40 mg PO DAILY@59907/02/18 01/19/20 Ferrous Sulfate [Iron (65 MG 325 mg PO DAILY@89908/16/18 01/19/20 Elemental)] Ergocalciferol (Vitamin D2) 50,000 unit PO Q14D@89907/19/19 01/19/20 [Drisdol] Acetaminophen [Tylenol] 650 mg PO Q4H PRN 08/24/19 01/19/20 Dextran 70/Hypromellose [Genteal 1 drop BOTH EYES Q12H PRN 08/24/19 01/19/20 Tears 0.1%-0.3% Drop] Folic Acid 1 mg PO DAILY@0900 08/24/19 01/19/20 Lactulose 20 gm PO BID@0900,209908/24/19 01/19/20 Multivitamins, Thera [Multivitamin 1 tab PO DAILY@149908/24/19 01/19/20 (formulary)] Rifaximin [Xifaxan] 550 mg PO BID@0900,209908/24/19 01/19/20 Thiamine [Vitamin B-1] 100 mg PO DAILY@149908/24/19 01/19/20 Melatonin 10 mg PO HS PRN 10/25/19 01/19/20 Ondansetron [Zofran] 4 mg PO TID PRN 10/25/19 01/19/20 Oxymetazoline 0.05% Nasl [place] 1 spray NASAL Q15M PRN MDD 3 DOSES 10/25/19 01/19/20 [Afrin 0.05% Nasal [place]] Insulin Aspart [Insulin Aspart 4 unit SQ AC-TID 12/21/19 01/19/20 Flexpen] Insulin Aspart [Insulin Aspart See Protocol SQ AC-TID 12/21/19 01/19/20 Flexpen] Ascorbic Acid [Vitamin C] 500 mg PO DAILY@89901/19/20 01/19/20 Azithromycin 250 mg PO DAILY@89901/19/20 01/19/20 Insulin Glargine,Hum.rec.anlog 15 unit SQ HS@209901/19/20 01/19/20 [Lantus Solostar] Sertraline HCl [Zoloft] 25 mg PO DAILY@89901/19/20 01/19/20 Spironolactone [Aldactone] 50 mg PO DAILY@89901/19/20 01/19/20 Zinc 50 mg PO DAILY@89901/19/20 01/19/20 metOLazone [Zaroxolyn] 5 mg PO DAILY@89901/19/20 01/19/20 Previous Rx's Medication Instructions Recorded Gabapentin [Neurontin] 200 mg PO TID@00,1499,2099 #9 cap 12/26/19 HYDROcodone/APAP 10-325MG [[place] 1 tab PO Q6HR PRN 3 Days #12 tab 12/26/19 10-325] Metoprolol Tartrate [Lopressor] 12.5 mg PO BID@899,2100 #0 12/26/19 Allergies Allergy/AdvReac Type Severity Reaction Status Date / Time cephalexin [From Keflex] Allergy Unknown Verified 01/19/20 13:16 duloxetine [From Cymbalta] Allergy Unknown Verified 01/19/20 13:16 Penicillins Allergy Rash/Hives Verified 01/19/20 13:16 phenobarbital Allergy Unknown Verified 01/19/20 13:16 phenytoin sodium Allergy Unknown Verified 01/19/20 13:16 [From Dilantin] phenytoin sodium extended Allergy Unknown Verified 01/19/20 13:16 [From Dilantin] primidone [From Mysoline] Allergy Unknown Verified 01/19/20 13:16 codeine AdvReac Nausea & Verified 01/19/20 13:16 Vomiting Review of Systems ROS Statement: Those systems with pertinent positive or pertinent negative responses have been documented in the HPI. ROS Other: All systems not noted in ROS Statement are negative. Past Medical History Past Medical History: Cancer, Heart Failure, COPD, Diabetes Mellitus, Fibromyalgia, Hyperlipidemia, Hypertension, Renal Disease, Rheumatoid Arthritis (RA), Seizure Disorder, Supraventricular Tachycardia (SVT) Additional Past Medical History / Comment(s): Breast cancer right-sided post mastectomy followed by chemotherapy, is independent diabetes mellitus type 2, peripheral neuropathy related to diabetes, COPD, liver cirrhosis, hypertension, hyperlipidemia, fibromyalgia, chronic kidney disease, rheumatoid arthritis, seizure disorder, history of SVT, diabetic peripheral neuropathy, chronic anxiety and depression, morbid obesity with a BMI of 58.5, previous history of GI bleed, diverticular disease, history of hepatic encephalopathy History of Any Multi-Drug Resistant Organisms: VRE Date of last positivie culture/infection: 05/11/18 MDRO Source:: VRE URINE Past Surgical History: Adenoidectomy, Appendectomy, Breast Surgery, Cholecystectomy, Hysterectomy, Orthopedic Surgery, Tonsillectomy, Tubal Ligation Additional Past Surgical History / Comment(s): masectomy right, ganglion cyst right hand, total hysterectomy (hx of tubal pregnancies), lower teeth extracted. Past Anesthesia/Blood Transfusion Reactions: No Reported Reaction Past Psychological History: Anxiety, Depression Smoking Status: Former smoker Past Alcohol Use History: None Reported Past Drug Use History: None Reported - Past Family History Father Family Medical History: Cancer, CVA/TIA Additional Family Medical History / Comment(s): 2000 from [facility] Mother Family Medical History: Cancer, Dementia Additional Family Medical History / Comment(s): 2014 at age 86. Oral & Breast cancer Brother(s) Family Medical History: Asthma, Diabetes Mellitus, Fibromyalgia, Osteoarthritis (OA) Additional Family Medical History / Comment(s): Obesity. Joint replacements General Exam Limitations: no limitations General appearance: alert, in no apparent distress, other (This is a well- developed, well-nourished adult female patient in no acute distress. Vital signs upon presentation are temperature 99.4F, pulse 73, respirations 18, blood pressure 106/62, pulse ox 94% on room air.) ENT exam: Present: normal exam, normal oropharynx, mucous membranes moist Respiratory exam: Present: normal lung sounds bilaterally. Absent: respiratory distress, wheezes, rales, rhonchi, stridor Cardiovascular Exam: Present: regular rate, normal rhythm, normal heart sounds. Absent: systolic murmur, diastolic murmur, rubs, gallop, clicks GI/Abdominal exam: Present: soft, normal bowel sounds. Absent: distended, tenderness, guarding, rebound, rigid Neurological exam: Present: alert, oriented X3, CN II-XII intact Psychiatric exam: Present: normal affect, normal mood Skin exam: Present: warm, dry, intact, normal color. Absent: rash Course Vital Signs 01/19/20 01/19/20 01/19/20 11:55 12:59 14:00 Temperature 99.4 F Pulse Rate 73 72 81 Respiratory 18 20 18 Rate Blood Pressure 106/62 111/56 106/51 O2 Sat by Pulse 94 L 96 95 Oximetry Medical Decision Making - Medical Decision Making 70-year-old female patient presents to the emergency department today for evaluation of GI bleed. Patient states that she has had 3 loose bowel movements today containing bright red blood with passage of clots. Patient denies any abdominal pain, dizziness, or weakness. States she did test positive for COVID at [facility] on 01/12. Vital signs have been stable. Labs reviewed showed decreased white blood cell count at 2.9, hemoglobin 6.9. Normal coags. BUN is 37, creatinine 1.47. Case was discussed with Dr. Griffith accepts patient. GI will be consulted. Patient was a 1 unit packed red blood cells. - Lab Data Result diagrams: 01/19/20 13:05 12/06/20 13:05 Lab Results 01/19/20 01/19/20 01/19/20 Range/Units 13:05 13:05 13:05 WBC 2.9 L (3.8-10.6) k/uL RBC 2.36 L (3.80-5.40) m/uL Hgb 6.9 L* (11.4-16.0) gm/dL Hct 23.0 L (34.0-46.0) % MCV 97.6 (80.0-100.0) fL MCH 29.5 (25.0-35.0) pg MCHC 30.2 L (31.0-37.0) g/dL RDW 16.2 H (11.5-15.5) % Plt Count 113 L D (150-450) k/uL MPV 8.5 Neutrophils % 55 % Lymphocytes % 29 % Monocytes % 10 % Eosinophils % 3 % Basophils % 1 % Neutrophils # 1.6 (1.3-7.7) k/uL Lymphocytes # 0.8 L (1.0-4.8) k/uL Monocytes # 0.3 (0-1.0) k/uL Eosinophils # 0.1 (0-0.7) k/uL Basophils # 0.0 (0-0.2) k/uL Manual Slide Review Performed Polychromasia Present Hypochromasia Marked Poikilocytosis Slight Anisocytosis Slight Macrocytosis Slight Target Cells Present Crenated Cell Present PT 10.9 (9.0-12.0) sec INR 1.1 (<1.2) APTT 28.7 (22.0-30.0) sec Sodium 136 L (137-145) mmol/L Potassium 4.8 (3.5-5.1) mmol/L Chloride 108 H (98-107) mmol/L Carbon Dioxide 23 (22-30) mmol/L Anion Gap 5 mmol/L BUN 37 H (7-17) mg/dL Creatinine 1.47 H (0.52-1.04) mg/dL Est GFR (CKD-EPI)AfAm 42 (>60 ml/min/1.73 sqM) Est GFR (CKD-EPI)NonAf 36 (>60 ml/min/1.73 sqM) Glucose 106 H (74-99) mg/dL Plasma Lactic Acid Vasile (0.7-2.0) mmol/L Calcium 7.9 L (8.4-10.2) mg/dL Magnesium 2.4 H (1.6-2.3) mg/dL Total Bilirubin 0.7 (0.2-1.3) mg/dL AST 31 (14-36) U/L ALT 17 (4-34) U/L Alkaline Phosphatase 78 (38-126) U/L Troponin I (0.000-0.034) ng/mL Total Protein 5.8 L (6.3-8.2) g/dL Albumin 2.9 L (3.5-5.0) g/dL Blood Type Blood Type Recheck Bld Type Recheck Status Antibody Screen Crossmatch Spec Expiration Date 01/19/20 01/19/20 01/19/20 Range/Units 13:05 13:05 13:05 WBC (3.8-10.6) k/uL RBC (3.80-5.40) m/uL Hgb (11.4-16.0) gm/dL Hct (34.0-46.0) % MCV (80.0-100.0) fL MCH (25.0-35.0) pg MCHC (31.0-37.0) g/dL RDW (11.5-15.5) % Plt Count (150-450) k/uL MPV Neutrophils % % Lymphocytes % % Monocytes % % Eosinophils % % Basophils % % Neutrophils # (1.3-7.7) k/uL Lymphocytes # (1.0-4.8) k/uL Monocytes # (0-1.0) k/uL Eosinophils # (0-0.7) k/uL Basophils # (0-0.2) k/uL Manual Slide Review Polychromasia Hypochromasia Poikilocytosis Anisocytosis Macrocytosis Target Cells Crenated Cell PT (9.0-12.0) sec INR (<1.2) APTT (22.0-30.0) sec Sodium (137-145) mmol/L Potassium (3.5-5.1) mmol/L Chloride (98-107) mmol/L Carbon Dioxide (22-30) mmol/L Anion Gap mmol/L BUN (7-17) mg/dL Creatinine (0.52-1.04) mg/dL Est GFR (CKD-EPI)AfAm (>60 ml/min/1.73 sqM) Est GFR (CKD-EPI)NonAf (>60 ml/min/1.73 sqM) Glucose (74-99) mg/dL Plasma Lactic Acid Vasile 0.9 (0.7-2.0) mmol/L Calcium (8.4-10.2) mg/dL Magnesium (1.6-2.3) mg/dL Total Bilirubin (0.2-1.3) mg/dL AST (14-36) U/L ALT (4-34) U/L Alkaline Phosphatase (38-126) U/L Troponin I <0.012 (0.000-0.034) ng/mL Total Protein (6.3-8.2) g/dL Albumin (3.5-5.0) g/dL Blood Type A Positive Blood Type Recheck A Pos Bld Type Recheck Status No Antibody Screen POSITIVE Crossmatch See Detail Spec Expiration Date 01/22/2020 - EKG Data -: EKG Interpreted by Fl EKG Comments: EKG obtained at 1153 shows normal sinus rhythm with a right bundle branch block. Ventricular rate is 76, W[place] interval 208, QR baptism 128, QT 438, QTC 492. Disposition Clinical Impression: GI bleed, Anemia, COVID-19 Disposition: ADMITTED IP TO THIS [facility] Condition: Serious Decision to Admit Reason: Admit from EC Decision Date: 01/19/20 Decision Time: 14:04
[2020-01-19 13:23] LABS: Anisocytosis Slight; Basophils % (A) 1 %; Eosinophils # (A) 0.1 k/uL (0-0.7); Eosinophils % (A) 3 %; Hypochromasia Marked; Lymphocytes # (A) 0.8 k/uL (1.0-4.8); Lymphocytes % (A) 29 %; MCH 29.5 pg (25.0-35.0); MCHC 30.2 g/dL (31.0-37.0); MCV 97.6 fL (80.0-100.0); Macrocytosis Slight; Mean Platelet Volume 8.5; Monocytes # (A) 0.3 k/uL (0-1.0); Monocytes % (A) 10 %; Neutrophils # (A) 1.6 k/uL (1.3-7.7); Neutrophils % (A) 55 %; Poikilocytosis Slight; RBC 2.36 m/uL (3.80-5.40); RDW 16.2 % (11.5-15.5); WBC 2.9 k/uL (3.8-10.6)
[2020-01-19 13:24] LABS: Albumin 2.9 g/dL (3.5-5.0); Calcium 7.9 mg/dL (8.4-10.2); Magnesium 2.4 mg/dL (1.6-2.3); Potassium 4.8 mmol/L (3.5-5.1); Total Bilirubin 0.7 mg/dL (0.2-1.3); Total Protein 5.8 g/dL (6.3-8.2)
[2020-01-19 13:27] LABS: INR 1.1 (<1.2); Partial Thromboplastin Time 28.7 sec (22.0-30.0); Prothrombin Time 10.9 sec (9.0-12.0)
[2020-01-19 13:30] LABS: Platelet Count 113 k/uL (150-450)
[2020-01-19 13:32] LABS: HGB 6.9 gm/dL (11.4-16.0)
[2020-01-19 13:58] LABS: Crenated RBC Present; Polychromasia Present; Target Cells Present
[2020-01-19] MEDS ORDERED: NALOXONE 0.4 MG/ML 1 ML VIAL IV PRN (14:00)
[2020-01-19] MEDS ORDERED: OXYMETAZOLINE 0.05% NASL SPRAY 1 SPRAY BOTTLE NASAL PRN (20:56)
[2020-01-19] MEDS ORDERED: ACETAMINOPHEN TAB 325 MG TAB PO PRN (20:56)
[2020-01-19] MEDS ORDERED: ARTIFICIAL TEARS-HYPROMELLOSE DROPS 15 ML BTL BOTH EYES PRN (20:56)
[2020-01-19 21:29] LABS: Anisocytosis Slight; HCT 20.5 % (34.0-46.0); Hypochromasia Marked; MCH 29.9 pg (25.0-35.0); MCHC 31.9 g/dL (31.0-37.0); MCV 93.8 fL (80.0-100.0); Poikilocytosis Slight; RBC 2.18 m/uL (3.80-5.40); RDW 16.1 % (11.5-15.5)
[2020-01-19] MEDS: SODIUM CHLORIDE 0.9% 1,000 ML IV SCH (21:53)
[2020-01-19] MEDS: GABAPENTIN 100 MG CAP PO SCH (21:53)
[2020-01-19] MEDS: INSULIN DETEMIR (LEVEMIR) 100 UNIT/ML SYR SQ SCH (21:57)
[2020-01-19] MEDS: RIFAXIMIN 550 MG TABLET PO SCH (21:58)
[2020-01-19] MEDS: HYDROcodone/APAP 10-325MG 1 EACH TAB PO PRN (22:01)
[2020-01-19 22:17] LABS: HGB 6.5 gm/dL (11.4-16.0)
[2020-01-19 22:18] LABS: Mean Platelet Volume 8.9
--- NOTE | 2020-01-19 22:36 | P.HPIM ---
History of Present Illness H&P Date: 01/19/20 Chief Complaint: Lower GI bleed History of presenting complaint: This is a 70 year patient currently at [facility] being sent by Dr. Han. Chronic stable medical conditions include CHF EF 55-60%, COPD, diabetes, fibromyalgia, hyperlipidemia, hypertension, chronic kidney disease stage III, rheumatoid arthritis, history of breast cancer with right sided mastectomy, peripheral neuropathy, chronic anxiety depression, liver cirrhosis with portal hypertension.uses a wheelchair to get about Patient was recently discharged from the hospital on December 25. admitted feeling weak tired rundown. Had 2 maroon stools in the hospital. In August of this year patient had undergone EGD and colonoscopy. Showing diverticulosis. Small bowel capsule study was also unremarkable. Source was felt to be from diverticulosis.. tagged RBC scan. Negative. Last admission patient refuses endoscopy.. Patient now presents to the [facility] as she had 3 episodes of stools with bright red blood with blood clots. Hemoglobin drawn a couple of days ago was 6.6. Patient felt weak and tired. No abdominal pain. No nausea vomiting. Review of systems: GEN.: Tired EYES: None HEENT: None NECK: None RESPIRATORY: None CARDIOVASCULAR: None GASTROINTESTINAL: As above GENITOURINARY: None MUSCULOSKELETAL: Joint pains LYMPHATICS: None HEMATOLOGICAL: None PSYCHIATRY: Anxious NEUROLOGICAL: Uses a wheelchair. Past medical history to include: CHF EF 55-60%, COPD, diabetes, fibromyalgia, hyperlipidemia, hypertension, chronic kidney disease stage III, rheumatoid arthritis, history of breast cancer with right sided mastectomy, peripheral neuropathy, chronic anxiety depression, liver cirrhosis with portal hypertension.uses a wheelchair to get about. GI bleed felt to be diverticular Social history: Lives at [facility] in the [facility]. Uses a wheelchair. Patient smoked from 1971 and stopped in December 2017. No alcohol. Physical examination: VITAL SIGNS: 99.4, 73, 18, 106/62, 94% room air GENERAL: BMI 39.2, sitting up on bed, tired. EYES: Pupils equal. Conjunctiva palel. HEENT: External appearance of nose and ears normal, oral cavity grossly normal. NECK: JVD unable to assess; masses not palpable. HEART: First and second heart sounds are normal; mild edema. LUNGS: Respiratory rate increased; decreased breath sounds. ABDOMEN: Soft, nontender, liver spleen not palpable, no masses palpable. PSYCH: [Alert and oriented x3; mood and affect anxiety l. NEUROLOGICAL: Cranial nerves grossly intact; no facial asymmetry, increased pollen lower extremity. LYMPHATICS: No lymph nodes palpable in the axilla and neck Investigations: White count 2.9 hemoglobin 6.9 platelets 113 potassium 4.8 bun 37 creatinine 1.47 Previous testing: Hemoglobin 8.3 on January 13 BUN 59 creatinine 1.58 on December 28 Assessment: -Acute lower GI bleed, felt to be from colonic diverticulosis. EGD colonoscopy in the past that [place] down to close his. Recent diet RBC was also negative., POA -Acute blood loss anemia from GI bleed, POA -Chronic congestive heart failure from diastolic dysfunction EF 55-60% -COPD in an ex-smoker -Diabetes mellitus type 2 on oral hypoglycemic -Chronic fibromyalgia -Hyperlipidemia -Essential hypertension -Chronic kidney disease stage III from diabetic nephropathy and hypertensive nephrosclerosis -Rheumatoid arthritis -History of breast cancer with a right-sided mastectomy -Peripheral neuropathy secondary to diabetes -Chronic anxiety depression -Obesity -Liver cirrhosis with portal hypertension on Xifaxan Plan: GI was consulted. Home medications resumed. Unit of blood was ordered. Follow CBC. Placed the patient on clear liquid diet. Past Medical History Past Medical History: Cancer, Heart Failure, COPD, Diabetes Mellitus, Fibromyalgia, Hyperlipidemia, Hypertension, Renal Disease, Rheumatoid Arthritis (RA), Seizure Disorder, Supraventricular Tachycardia (SVT) Additional Past Medical History / Comment(s): Breast cancer right-sided post mastectomy followed by chemotherapy, is independent diabetes mellitus type 2, peripheral neuropathy related to diabetes, COPD, liver cirrhosis, hypertension, hyperlipidemia, fibromyalgia, chronic kidney disease, rheumatoid arthritis, seizure disorder, history of SVT, diabetic peripheral neuropathy, chronic anxiety and depression, morbid obesity with a BMI of 58.5, previous history of GI bleed, diverticular disease, history of hepatic encephalopathy History of Any Multi-Drug Resistant Organisms: VRE Date of last positivie culture/infection: 05/11/18 MDRO Source:: VRE URINE Past Surgical History: Adenoidectomy, Appendectomy, Breast Surgery, Cho lecystectomy, Hysterectomy, Orthopedic Surgery, Tonsillectomy, Tubal Ligation Additional Past Surgical History / Comment(s): masectomy right, ganglion cyst right hand, total hysterectomy (hx of tubal pregnancies), lower teeth extracted. Past Anesthesia/Blood Transfusion Reactions: No Reported Reaction Past Psychological History: Anxiety, Depression Smoking Status: Former smoker Past Alcohol Use History: None Reported Past Drug Use History: None Reported - Past Family History Father Family Medical History: Cancer, CVA/TIA Additional Family Medical History / Comment(s): 2000 from lung cancer Mother Family Medical History: Cancer, Dementia Additional Family Medical History / Comment(s): 2014 at age 86. Oral & Breast cancer Brother(s) Family Medical History: Asthma, Diabetes Mellitus, Fibromyalgia, Osteoarthritis (OA) Additional Family Medical History / Comment(s): Obesity. Joint replacements Medications and Allergies Home Medications Medication Instructions Recorded Confirmed Type Anastrozole [Arimidex] 1 mg PO DAILY@00 09/30/14 01/19/20 History Sennosides [Senna] 8.6 mg PO BID@899,209904/02/18 01/19/20 History Pantoprazole [Protonix] 40 mg PO DAILY@59907/02/18 01/19/20 History Ferrous Sulfate [Iron (65 MG 325 mg PO DAILY@89908/16/18 01/19/20 History Elemental)] Ergocalciferol (Vitamin D2) 50,000 unit PO Q14D@89907/19/19 01/19/20 History [Drisdol] Acetaminophen [Tylenol] 650 mg PO Q4H PRN 08/24/19 01/19/20 History Dextran 70/Hypromellose [Genteal 1 drop BOTH EYES Q12H PRN 08/24/19 01/19/20 History Tears 0.1%-0.3% Drop] Folic Acid 1 mg PO DAILY@89908/24/19 01/19/20 History Lactulose 20 gm PO BID@0900,209908/24/19 01/19/20 History Multivitamins, Thera [Multivitamin 1 tab PO DAILY@149908/24/19 01/19/20 History (formulary)] Rifaximin [Xifaxan] 550 mg PO BID@0900,209908/24/19 01/19/20 History Thiamine [Vitamin B-1] 100 mg PO DAILY@1500 08/24/19 01/19/20 History Melatonin 10 mg PO HS PRN 10/25/19 01/19/20 History Ondansetron [Zofran] 4 mg PO TID PRN 10/25/19 01/19/20 History Oxymetazoline 0.05% Nasl [place] 1 spray NASAL Q15M PRN MDD 3 DOSES 10/25/19 01/19/20 History [Afrin 0.05% Nasal [place]] Insulin Aspart [Insulin Aspart 4 unit SQ AC-TID 12/21/19 01/19/20 History Flexpen] Insulin Aspart [Insulin Aspart See Protocol SQ AC-TID 12/21/19 01/19/20 History Flexpen] Gabapentin [Neurontin] 200 mg PO TID@0900,1500,2100 #9 cap 12/26/19 01/19/20 Rx HYDROcodone/APAP 10-325MG [[place] 1 tab PO Q6HR PRN 3 Days #12 tab 12/26/19 01/19/20 Rx 10-325] Metoprolol Tartrate [Lopressor] 12.5 mg PO BID@0900,2100 #0 12/26/19 01/19/20 Rx Ascorbic Acid [Vitamin C] 500 mg PO DAILY@0900 01/19/20 01/19/20 History Azithromycin 250 mg PO DAILY@0900 01/19/20 01/19/20 History Insulin Glargine,Hum.rec.anlog 15 unit SQ HS@209901/19/20 01/19/20 History [Lantus Solostar] Sertraline HCl [Zoloft] 25 mg PO DAILY@0900 01/19/20 01/19/20 History Spironolactone [Aldactone] 50 mg PO DAILY@0900 01/19/20 01/19/20 History Zinc 50 mg PO DAILY@0900 01/19/20 01/19/20 History metOLazone [Zaroxolyn] 5 mg PO DAILY@0900 01/19/20 01/19/20 History Allergies Allergy/AdvReac Type Severity Reaction Status Date / Time cephalexin [From Keflex] Allergy Unknown Verified 01/19/20 13:16 duloxetine [From Cymbalta] Allergy Unknown Verified 01/19/20 13:16 Penicillins Allergy Rash/Hives Verified 01/19/20 13:16 phenobarbital Allergy Unknown Verified 01/19/20 13:16 phenytoin sodium Allergy Unknown Verified 01/19/20 13:16 [From Dilantin] phenytoin sodium extended Allergy Unknown Verified 01/19/20 13:16 [From Dilantin] primidone [From Mysoline] Allergy Unknown Verified 01/19/20 13:16 codeine AdvReac Nausea & Verified 01/19/20 13:16 Vomiting Physical Exam Vitals: Vital Signs Temp Pulse Resp BP Pulse Ox 01/19/20 21:00 98.2 F 81 20 123/65 96 01/19/20 19:00 98.9 F 87 18 134/65 96 01/19/20 15:00 68 18 103/56 94 L 01/19/20 14:00 81 18 106/51 95 01/19/20 12:59 72 20 111/56 96 01/19/20 11:55 99.4 F 73 18 106/62 94 L Intake and Output 01/19/20 01/19/20 01/19/20 06:59 14:59 22:59 Other: Weight 106.776 kg Results CBC & Chem 7: 01/19/20 21:15 01/19/20 13:05 Labs: Abnormal Lab Results - Last 24 Hours (Table) 01/19/20 01/19/20 01/19/20 Range/Units 13:05 13:05 13:05 WBC 2.9 L (3.8-10.6) k/uL RBC 2.36 L (3.80-5.40) m/uL Hgb 6.9 L* (11.4-16.0) gm/dL Hct 23.0 L (34.0-46.0) % MCHC 30.2 L (31.0-37.0) g/dL RDW 16.2 H (11.5-15.5) % Plt Count 113 L D (150-450) k/uL Lymphocytes # 0.8 L (1.0-4.8) k/uL Sodium 136 L (137-145) mmol/L Chloride 108 H (98-107) mmol/L BUN 37 H (7-17) mg/dL Creatinine 1.47 H (0.52-1.04) mg/dL Glucose 106 H (74-99) mg/dL Calcium 7.9 L (8.4-10.2) mg/dL Magnesium 2.4 H (1.6-2.3) mg/dL Total Protein 5.8 L (6.3-8.2) g/dL Albumin 2.9 L (3.5-5.0) g/dL Crossmatch See Detail 01/19/20 01/19/20 Range/Units 14:30 21:15 WBC 2.0 L (3.8-10.6) k/uL RBC 2.18 L (3.80-5.40) m/uL Hgb 6.5 L* (11.4-16.0) gm/dL Hct 20.5 L (34.0-46.0) % MCHC (31.0-37.0) g/dL RDW 16.1 H (11.5-15.5) % Plt Count (150-450) k/uL Lymphocytes # (1.0-4.8) k/uL Sodium (137-145) mmol/L Chloride (98-107) mmol/L BUN (7-17) mg/dL Creatinine (0.52-1.04) mg/dL Glucose (74-99) mg/dL Calcium (8.4-10.2) mg/dL Magnesium (1.6-2.3) mg/dL Total Protein (6.3-8.2) g/dL Albumin (3.5-5.0) g/dL Crossmatch See Detail
[2020-01-19 23:05] LABS: Platelet Count 79 k/uL (150-450)
[2020-01-20 05:17] LABS: HCT 21.7 % (34.0-46.0); Hypochromasia Marked; MCH 29.9 pg (25.0-35.0); MCHC 31.1 g/dL (31.0-37.0); MCV 95.9 fL (80.0-100.0); Platelet Count 73 k/uL (150-450); Poikilocytosis Slight; RBC 2.26 m/uL (3.80-5.40); RDW 15.8 % (11.5-15.5); WBC 1.8 k/uL (3.8-10.6)
[2020-01-20 05:39] LABS: HGB 6.8 gm/dL (11.4-16.0)
[2020-01-20 06:16] LABS: Glucose,Whole Blood 99 mg/dL (75-99)
[2020-01-20] MEDS: SPIRONOLACTONE 25 MG TAB PO SCH ×2 (09:50→09:51)
[2020-01-20] MEDS: ANASTROZOLE 1 MG TAB PO SCH (09:50)
[2020-01-20] MEDS: AZITHROMYCIN 250 MG TAB PO SCH (09:50)
[2020-01-20] MEDS: GABAPENTIN 100 MG CAP PO SCH ×3 (09:51→20:27)
[2020-01-20] MEDS: ASCORBIC ACID 500 MG TAB PO SCH (09:51)
[2020-01-20] MEDS: RIFAXIMIN 550 MG TABLET PO SCH ×2 (09:52→20:23)
[2020-01-20] MEDS: SERTRALINE 25 MG TAB PO SCH (09:52)
[2020-01-20] MEDS: PANTOPRAZOLE 40 MG/10 ML VIAL IV SCH (09:52)
[2020-01-20] MEDS: ZINC SULFATE 220 MG CAP PO SCH (09:52)
[2020-01-20] MEDS: FOLIC ACID 1 MG TAB PO SCH (09:52)
[2020-01-20 11:32] LABS: Glucose,Whole Blood 105 mg/dL (75-99)
[2020-01-20] MEDS: ONDANSETRON 4 MG/2 ML VIAL IVP PRN (14:55)
[2020-01-20] MEDS ORDERED: MAGNESIUM CITRATE 296 ML BOTTLE PO ONE (17:00)
[2020-01-20 17:36] LABS: Glucose,Whole Blood 103 mg/dL (75-99)
[2020-01-20] MEDS: THIAMINE 100 MG TAB PO SCH (17:53)
[2020-01-20] MEDS: MULTIVITAMINS, THERA 1 EACH TAB PO SCH (17:53)
--- NOTE | 2020-01-20 17:55 | NM ---
EXAMINATION TYPE: NM GI bleeding DATE OF EXAM: 01/20/2020 HISTORY: GI bleeding. Diverticular bleed. COMPARISON: NONE Following administration of 3 ml PYP 27.2 mCi Tc 99m Sodium Pertechnete. Immediate images post inject ion. FINDINGS: In the first hour of imaging no definite tracer accumulation as seen to suggest active bleeding. In the second hour of imaging there is small area of tracer accumulation in the lateral aspect of the right mid abdomen that is below the right lobe of the liver. The remainder of exam is unremarkable. IMPRESSION: The exam shows potential site of active bleeding involving the ascending colon.
[2020-01-20] MEDS: SODIUM CHLORIDE 0.9% 1,000 ML IV SCH (17:59)
[2020-01-20 20:09] LABS: Glucose,Whole Blood 181 mg/dL (75-99)
[2020-01-20] MEDS: INSULIN DETEMIR (LEVEMIR) 100 UNIT/ML SYR SQ SCH (20:21)
[2020-01-20] MEDS: HYDROcodone/APAP 10-325MG 1 EACH TAB PO PRN (20:27)
--- NOTE | 2020-01-20 23:14 | P.PN ---
Progress Note - Text Progress Note Date: 01/20/20 Chief Complaint: Lower GI bleed History of presenting complaint: This is a 70 year patient currently at [facility] being sent by Dr. Han. Chronic stable medical conditions include CHF EF 55-60%, COPD, diabetes, fibromyalgia, hyperlipidemia, hypertension, chronic kidney disease stage III, rheumatoid arthritis, history of breast cancer with right sided mastectomy, peripheral neuropathy, chronic anxiety depression, liver cirrhosis with portal hypertension.uses a wheelchair to get about Patient was recently discharged from the hospital on December 25. admitted feeling weak tired rundown. Had 2 maroon stools in the hospital. In August of this year patient had undergone EGD and colonoscopy. Showing diverticulosis. Small bowel capsule study was also unremarkable. Source was felt to be from diverticulosis.. tagged RBC scan. Negative. Last admission patient refuses endoscopy.. [facility] she had 3 episodes of stools with bright red blood with blood clots. Hemoglobin drawn a couple of days ago was 6.6. Patient felt weak and tired. No abdominal pain. No nausea vomiting. admitted with acute GI bleed- Today-guided laying in bed. Patient underwent nuclear GI bleeds scan. Active bleeding found at the site of the ascending colon.patient had been ordered a second unit of blood this morning. Review of systems: Was done for constitutional, cardiovascular, GI, pulmonary. relevant finding as above Active Medications Acetaminophen (Acetaminophen Tab 325 Mg Tab) 650 mg PO Q4H PRN PRN Reason: Fever and/ or Pain Hydrocodone Bitart/Acetaminophen (Hydrocodone/Apap 10-325mg 1 Each Tab) 1 each PO Q6HR PRN PRN Reason: Pain Last Admin: 01/20/20 20:27 Dose: 1 each Documented by: Anastrozole (Anastrozole 1 Mg Tab) 1 mg PO DAILY@0900 [facility] Last Admin: 01/20/20 09:50 Dose: 1 mg Documented by: Artificial Tears (Artificial Tears-Hypromellose Drops 15 Ml Btl) 1 drops BOTH EYES Q12H PRN PRN Reason: Dry Eye(S)/redness Ascorbic Acid (Ascorbic Acid 500 Mg Tab) 500 mg PO DAILY@0900 [facility] Last Admin: 01/20/20 09:51 Dose: 500 mg Documented by: Azithromycin (Azithromycin 250 Mg Tab) 250 mg PO DAILY@09 [facility] Last Admin: 01/20/20 09:50 Dose: 250 mg Documented by: Ergocalciferol (Ergocalciferol 50,000 Unit Cap) 50,000 unit PO Q14D@0900 [facility] Folic Acid (Folic Acid 1 Mg Tab) 1 mg PO DAILY@0900 [facility] Last Admin: 01/20/20 09:52 Dose: 1 mg Documented by: Gabapentin (Gabapentin 100 Mg Cap) 200 mg PO TID@0900,1500,2100 [facility] Last Admin: 01/20/20 20:27 Dose: 200 mg Documented by: Sodium Chloride (Saline 0.9%) 1,000 mls @ 20 mls/hr IV .Q24H [facility] Last Admin: 01/20/20 17:59 Dose: 20 mls/hr Documented by: Insulin Detemir (Insulin Detemir (Levemir) 100 Unit/Ml Syr) 15 unit SQ HS@2100 [facility] Last Admin: 01/20/20 20:21 Dose: Not Given Documented by: Multivitamins (Multivitamins, Thera 1 Each Tab) 1 each PO DAILY@1500 [facility] Last Admin: 01/20/20 17:53 Dose: Not Given Documented by: Naloxone HCl (Naloxone 0.4 Mg/Ml 1 Ml Vial) 0.2 mg IV Q2M PRN PRN Reason: Opioid Reversal Ondansetron HCl (Ondansetron 4 Mg/2 Ml Vial) 4 mg IVP Q8HR PRN PRN Reason: Nausea And Vomiting Last Admin: 01/20/20 14:55 Dose: 4 mg Documented by: Ondansetron HCl (Ondansetron 4 Mg Tab) 4 mg PO TID PRN PRN Reason: Nausea And Vomiting Oxymetazoline HCl (Oxymetazoline 0.05% Nasl [place] 1 [place] Bott[place]) 1 spray NASAL Q15M PRN PRN Reason: BLOODY NOSE Pantoprazole Sodium (Pantoprazole 40 Mg/10 Ml Vial) 40 mg IV DAILY [facility] Last Admin: 01/20/20 09:52 Dose: 40 mg Documented by: Rifaximin (Rifaximin 550 Mg Tablet) 550 mg PO BID@0900,2100 [facility] Stop: 02/18/20 21:01 Last Admin: 01/20/20 20:23 Dose: Not Given Documented by: Sertraline HCl (Sertraline 25 Mg Tab) 25 mg PO DAILY@0900 [facility] Last Admin: 01/20/20 09:52 Dose: 25 mg Documented by: Spironolactone (Spironolactone 25 Mg Tab) 50 mg PO DAILY@0900 [facility] Last Admin: 01/20/20 09:51 Dose: 50 mg Documented by: Thiamine HCl (Thiamine 100 Mg Tab) 100 mg PO DAILY@1500 [facility] Last Admin: 01/20/20 17:53 Dose: Not Given Documented by: Zinc Sulfate (Zinc Sulfate 220 Mg Cap) 220 mg PO DAILY@0900 [facility] Last Admin: 01/20/20 09:52 Dose: 220 mg Documented by: Physical examination: VITAL SIGNS: 98.1, 85, 16, 131/80, 93% on room air GENERAL:reclining in bed, tired EYES: Pupils equal. Conjunctiva pale. NECK: JVD unable to assess; masses not palpable. HEART: First and second heart sounds are normal; mild edema. LUNGS: Respiratory rate increased; decreased breath sounds. ABDOMEN: Soft, nontender, liver spleen not palpable, no masses palpable. PSYCH: [Alert and oriented x3; mood and affect anxiety l. NEUROLOGICAL: Cranial nerves grossly intact; no facial asymmetry, increased pollen lower extremity. Investigations: January 19: White count 1.8 hemoglobin 6.8 platelets 73 White count 2.9 hemoglobin 6.9 platelets 113 potassium 4.8 bun 37 creatinine 1.47 Previous testing: Hemoglobin 8.3 on January 13 BUN 59 creatinine 1.58 on December 28 Assessment: -Acute lower GI bleed, felt to be from ascending colon as per nuclear scan.. -Acute blood loss anemia from GI bleed, POApatient has been ordered secondary to blood -Chronic congestive heart failure from diastolic dysfunction EF 55-60% -COPD in an ex-smoker -Diabetes mellitus type 2 on oral hypoglycemic -Chronic fibromyalgia -Hyperlipidemia -Essential hypertension -Chronic kidney disease stage III from diabetic nephropathy and hypertensive nephrosclerosis -Rheumatoid arthritis -History of breast cancer with a right-sided mastectomy -Peripheral neuropathy secondary to diabetes -Chronic anxiety depression -Obesity -Liver cirrhosis with portal hypertension on Xifaxan Plan: second units of blood was ordered this morning. Await further input from GI. Other medication treatment plan to continue. Repeat CBC in the morning.
[2020-01-21 00:32] LABS: HCT 23.1 % (34.0-46.0); HGB 7.4 gm/dL (11.4-16.0); Hypochromasia Marked; MCH 29.8 pg (25.0-35.0); MCV 93.2 fL (80.0-100.0); Mean Platelet Volume 9.6; Poikilocytosis Moderate; RBC 2.48 m/uL (3.80-5.40); RDW 15.6 % (11.5-15.5); WBC 2.9 k/uL (3.8-10.6)
[2020-01-21 00:33] LABS: Platelet Count 73 k/uL (150-450)
[2020-01-21] MEDS: HYDROcodone/APAP 10-325MG 1 EACH TAB PO PRN ×3 (05:27→22:07)
[2020-01-21 06:05] LABS: Glucose,Whole Blood 109 mg/dL (75-99)
[2020-01-21] MEDS: GABAPENTIN 100 MG CAP PO SCH ×3 (08:14→20:33)
[2020-01-21] MEDS: PANTOPRAZOLE 40 MG/10 ML VIAL IV SCH (08:17)
--- NOTE | 2020-01-21 10:51 | P.CONS ---
History of Present Illness - Reason for Consult Consult date: 01/20/20 GI bleed Requesting physician: Guy Griffith - Chief Complaint GI bleed - History of Present Illness 70-year-old female with multiple medical comorbidities including congestive heart failure, COPD, diabetes mellitus, fibromyalgia, hyperlipidemia, hypertension, chronic kidney disease, rheumatoid arthritis, history of breast cancer with right sided mastectomy, anxiety and depression, diverticulosis and multiple hospitalizations for GI bleeding who presented to the hospital due to concerns over further GI bleeding. The patient had been reporting feeling weak and right down. She had 2 episodes of lower described as maroon-colored stool. She has had endoscopic evaluation in the past in 08/2019 with EGD significant for mild gastritis and a small hiatal hernia and no GI bleed noted and colonoscopy at that time showing diverticulosis with a fair prep and a large am ount of old blood and clots throughout the colon without active bleeding or source of bleeding identified. The patient had been offered a repeat colonoscopy at that time with further prep but refused. She underwent video capsule endoscopy which showed old blood in the colon without active bleeding. Computed tomography scan in the past has shown a cirrhotic appearing liver with very slight and perigastric varices. She was hospitalized further time with GI bleeding again reported at that time continued to refuse further endoscopic evaluation. She underwent a reports of scan which was negative on her last hospitalization. Currently she has been passing red blood and clots per rectum 3 episodes reported today. Hemoglobin 6.8 with WBC 1.8, platelet count 73,000, total bilirubin 0.7, alkaline phosphatase 70, AST 31 and ALT 17. Review of Systems REVIEW OF SYSTEMS: CONSTITUTIONAL: Denies any fevers, chills, weight change but she does report fatigue. CARDIOVASCULAR: Denies any chest pain, palpitations high or low blood pressures RESPIRATORY: Denies any shortness of breath, hemoptysis or cough. GENITOURINARY: No dysuria or hematuria. MUSCULOSKELETAL: No weakness reported. SKIN: Denies any new rashes or lesions, jaundice or pallor. PSYCHIATRIC: Denies any depression or anxiety, but does have a history of such. NEUROLOGY: Denies headache, denies any new focal deficits. EARS/NOSE/THROAT: No recent hearing change, congestion, nasal discharge or sore throat. EYES: No pain in eyes, discharge or change in vision. GASTROINTESTINAL: As per HPI. Past Medical History Past Medical History: Cancer, Heart Failure, COPD, Diabetes Mellitus, Fibromyalgia, Hyperlipidemia, Hypertension, Renal Disease, Rheumatoid Arthritis (RA), Seizure Disorder, Supraventricular Tachycardia (SVT) Additional Past Medical History / Comment(s): Breast cancer right-sided post mastectomy followed by chemotherapy, is independent diabetes mellitus type 2, peripheral neuropathy related to diabetes, COPD, liver cirrhosis, hypertension, hyperlipidemia, fibromyalgia, chronic kidney disease, rheumatoid arthritis, seizure disorder, history of SVT, diabetic peripheral neuropathy, chronic anxiety and depression, morbid obesity with a BMI of 58.5, previous history of GI bleed, diverticular disease, history of hepatic encephalopathy History of Any Multi-Drug Resistant Organisms: VRE Year Discovered:: 05/11/18 MDRO Source:: VRE URINE Past Surgical History: Adenoidectomy, Appendectomy, Breast Surgery, Cholecystectomy, Hysterectomy, Orthopedic Surgery, Tonsillectomy, Tubal Ligation Additional Past Surgical History / Comment(s): masectomy right, ganglion cyst right hand, total hysterectomy (hx of tubal pregnancies), lower teeth extracted. Past Anesthesia/Blood Transfusion Reactions: No Reported Reaction Past Psychological History: Anxiety, Depression Smoking Status: Former smoker Past Alcohol Use History: None Reported Past Drug Use History: None Reported - Past Family History Father Family Medical History: Cancer, CVA/TIA Additional Family Medical History / Comment(s): 2000 from lung cancer Mother Family Medical History: Cancer, Dementia Additional Family Medical History / Comment(s): 2014 at age 86. Oral & Breast cancer Brother(s) Family Medical History: Asthma, Diabetes Mellitus, Fibromyalgia, Osteoarthritis (OA) Additional Family Medical History / Comment(s): Obesity. Joint replacements Medications and Allergies Home Medications Medication Instructions Recorded Confirmed Type Anastrozole [Arimidex] 1 mg PO DAILY@0900 09/30/14 01/19/20 History Sennosides [Senna] 8.6 mg PO BID@0900,2100 04/02/18 01/19/20 History Pantoprazole [Protonix] 40 mg PO DAILY@0607/02/18 01/19/20 History Ferrous Sulfate [Iron (65 MG 325 mg PO DAILY@0900 08/16/18 01/19/20 History Elemental)] Ergocalciferol (Vitamin D2) 50,000 unit PO Q14D@89907/19/19 01/19/20 History [Drisdol] Acetaminophen [Tylenol] 650 mg PO Q4H PRN 08/24/19 01/19/20 History Dextran 70/Hypromellose [Genteal 1 drop BOTH EYES Q12H PRN 08/24/19 01/19/20 History Tears 0.1%-0.3% Drop] Folic Acid 1 mg PO DAILY@0900 08/24/19 01/19/20 History Lactulose 20 gm PO BID@899,209908/24/19 01/19/20 History Multivitamins, Thera [Multivitamin 1 tab PO DAILY@149908/24/19 01/19/20 History (formulary)] Rifaximin [Xifaxan] 550 mg PO BID@00,209908/24/19 01/19/20 History Thiamine [Vitamin B-1] 100 mg PO DAILY@1500 08/24/19 01/19/20 History Melatonin 10 mg PO HS PRN 10/25/19 01/19/20 History Ondansetron [Zofran] 4 mg PO TID PRN 10/25/19 01/19/20 History Oxymetazoline 0.05% Nasl [place] 1 spray NASAL Q15M PRN MDD 3 DOSES 10/25/19 01/19/20 History [Afrin 0.05% Nasal [place]] Insulin Aspart [Insulin Aspart 4 unit SQ AC-TID 12/21/19 01/19/20 History Flexpen] Insulin Aspart [Insulin Aspart See Protocol SQ AC-TID 12/21/19 01/19/20 History Flexpen] Gabapentin [Neurontin] 200 mg PO TID@0900,1499,2099 #9 cap 12/26/19 01/19/20 Rx HYDROcodone/APAP 10-325MG [Hamill 1 tab PO Q6HR PRN 3 Days #12 tab 12/26/19 01/19/20 Rx 10-325] Metoprolol Tartrate [Lopressor] 12.5 mg PO BID@899,2099 #0 12/26/19 01/19/20 Rx Ascorbic Acid [Vitamin C] 500 mg PO DAILY@0900 01/19/20 01/19/20 History Azithromycin 250 mg PO DAILY@0900 01/19/20 01/19/20 History Insulin Glargine,Hum.rec.anlog 15 unit SQ HS@2100 01/19/20 01/19/20 History [Lantus Solostar] Sertraline HCl [Zoloft] 25 mg PO DAILY@0900 01/19/20 01/19/20 History Spironolactone [Aldactone] 50 mg PO DAILY@0900 01/19/20 01/19/20 History Zinc 50 mg PO DAILY@0900 01/19/20 01/19/20 History metOLazone [Zaroxolyn] 5 mg PO DAILY@0900 01/19/20 01/19/20 History Allergies Allergy/AdvReac Type Severity Reaction Status Date / Time cephalexin [From Keflex] Allergy Unknown Verified 01/19/20 13:16 duloxetine [From Cymbalta] Allergy Unknown Verified 01/19/20 13:16 Penicillins Allergy Rash/Hives Verified 01/19/20 13:16 phenobarbital Allergy Unknown Verified 01/19/20 13:16 phenytoin sodium Allergy Unknown Verified 01/19/20 13:16 [From Dilantin] phenytoin sodium extended Allergy Unknown Verified 01/19/20 13:16 [From Dilantin] primidone [From Mysoline] Allergy Unknown Verified 01/19/20 13:16 codeine AdvReac Nausea & Verified 01/19/20 13:16 Vomiting Physical Exam Vitals: Vital Signs Temp Pulse Pulse Resp BP BP Pulse Ox 01/20/20 08:15 79 18 118/56 94 L 01/20/20 03:10 98.7 F 72 16 129/62 99 01/20/20 02:44 72 16 129/62 99 01/20/20 02:00 75 16 01/20/20 00:12 98.6 F 77 18 112/56 97 01/20/20 00:00 99.5 F 75 18 95/52 95 01/19/20 23:42 99.5 F 75 18 95/52 01/19/20 23:32 99.1 F 78 18 92/49 94 L 01/19/20 23:25 99.1 F 76 16 90/47 95 01/19/20 23:12 99.1 F 77 18 87/50 92 L 01/19/20 23:02 99.4 F 81 18 106/59 92 L 01/19/20 21:30 98.1 F 76 18 115/58 94 L 01/19/20 21:00 98.2 F 81 20 123/65 96 01/19/20 19:00 98.9 F 87 18 134/65 96 01/19/20 15:00 68 18 103/56 94 L 01/19/20 14:00 81 18 106/51 95 01/19/20 12:59 72 20 111/56 96 Intake and Output 01/19/20 01/20/20 01/20/20 22:59 06:59 14:59 Intake Total 310 Balance 310 Intake: Blood Product 310 Rc Irr As1 Unit 310 [id number] Other: Voiding Method Bedpan # Voids 1 # Bowel Movements 2 Weight 106.776 kg On physical examination, patient appears comfortable in no apparent distress. HEAD: Normocephalic, atraumatic. EYES: No scleral icterus. No conjunctival injection. MOUTH: No lesions, tongue midline. NECK: Trachea midline, no gross abnormalities. CHEST: Clear to auscultation with no wheezing or rhonchi appreciated. HEART: S1-S2 appreciated. ABDOMEN: Soft, obese. Bowel sounds are positive. No organomegaly. No guarding or rigidity. EXTREMITIES: Bilateral pedal edema. SKIN: No rashes, no jaundice. NEUROLOGIC: Alert and oriented x3. No focal deficits. Results CBC & Chem 7: 01/21/20 00:20 01/19/20 13:05 Labs: Abnormal Lab Results - Last 24 Hours (Table) 01/19/20 01/19/20 01/19/20 Range/Units 13:05 13:05 13:05 WBC 2.9 L (3.8-10.6) k/uL RBC 2.36 L (3.80-5.40) m/uL Hgb 6.9 L* (11.4-16.0) gm/dL Hct 23.0 L (34.0-46.0) % MCHC 30.2 L (31.0-37.0) g/dL RDW 16.2 H (11.5-15.5) % Plt Count 113 L D (150-450) k/uL Lymphocytes # 0.8 L (1.0-4.8) k/uL Sodium 136 L (137-145) mmol/L Chloride 108 H (98-107) mmol/L BUN 37 H (7-17) mg/dL Creatinine 1.47 H (0.52-1.04) mg/dL Glucose 106 H (74-99) mg/dL POC Glucose (mg/dL) (75-99) mg/dL Calcium 7.9 L (8.4-10.2) mg/dL Magnesium 2.4 H (1.6-2.3) mg/dL Total Protein 5.8 L (6.3-8.2) g/dL Albumin 2.9 L (3.5-5.0) g/dL Crossmatch See Detail 01/19/20 01/19/20 01/20/20 Range/Units 14:30 21:15 04:27 WBC 2.0 L 1.8 L (3.8-10.6) k/uL RBC 2.18 L 2.26 L (3.80-5.40) m/uL Hgb 6.5 L* 6.8 L* (11.4-16.0) gm/dL Hct 20.5 L 21.7 L (34.0-46.0) % MCHC (31.0-37.0) g/dL RDW 16.1 H 15.8 H (11.5-15.5) % Plt Count 79 L 73 L (150-450) k/uL Lymphocytes # (1.0-4.8) k/uL Sodium (137-145) mmol/L Chloride (98-107) mmol/L BUN (7-17) mg/dL Creatinine (0.52-1.04) mg/dL Glucose (74-99) mg/dL POC Glucose (mg/dL) (75-99) mg/dL Calcium (8.4-10.2) mg/dL Magnesium (1.6-2.3) mg/dL Total Protein (6.3-8.2) g/dL Albumin (3.5-5.0) g/dL Crossmatch See Detail 01/20/20 Range/Units 11:31 WBC (3.8-10.6) k/uL RBC (3.80-5.40) m/uL Hgb (11.4-16.0) gm/dL Hct (34.0-46.0) % MCHC (31.0-37.0) g/dL RDW (11.5-15.5) % Plt Count (150-450) k/uL Lymphocytes # (1.0-4.8) k/uL Sodium (137-145) mmol/L Chloride (98-107) mmol/L BUN (7-17) mg/dL Creatinine (0.52-1.04) mg/dL Glucose (74-99) mg/dL POC Glucose (mg/dL) 105 H (75-99) mg/dL Calcium (8.4-10.2) mg/dL Magnesium (1.6-2.3) mg/dL Total Protein (6.3-8.2) g/dL Albumin (3.5-5.0) g/dL Crossmatch Assessment and Plan (1) GI bleed Narrative/Plan: 70-year-old female who presents due to concerns over GI bleeding. Multiple hospitalizations with similar complaints in the past. Previously underwent EGD with no active bleeding and colonoscopy with old clots and blood noted throughout the colon. Video capsule endoscopy which was performed in evaluation also suggested a lower GI bleeding source. The patient was off for repeat colonoscopy with prep but has continued to refuse on repeat hospitalizations. Last hospitalization evaluation with tagged red blood cell scan was negative. Concern is for diverticular bleed, AVM, malignancy or other etiology. Current Visit: Yes Status: Acute Code(s): K92.2 - GASTROINTESTINAL HEMORRHAGE, UNSPECIFIED SNOMED Code(s): 58570904 (2) Anemia associated with acute blood loss Current Visit: No Status: Acute Code(s): D62 - ACUTE POSTHEMORRHAGIC ANEMIA SNOMED Code(s): 225338090 Plan: Supportive care Nothing by mouth Protonix therapy Continue monitor hemoglobin and hematocrit and transfuse as needed Tagged red blood cell scan ordered Extensive discussion with the patient and again have recommended colonoscopy for evaluation, however she continues to refuse We'll plan for EGD to rule out upper source of bleeding, although symptoms and presentation are all suggestive of a lower GI bleed All of the risks, benefits and complications of the procedures have been discussed with the patient length Thank you for allowing us to participate in the care of the patient
[2020-01-21 11:22] LABS: Glucose,Whole Blood 108 mg/dL (75-99)
[2020-01-21] MEDS: ZINC SULFATE 220 MG CAP PO SCH (13:18)
[2020-01-21] MEDS: SERTRALINE 25 MG TAB PO SCH (13:18)
[2020-01-21] MEDS: ASCORBIC ACID 500 MG TAB PO SCH (13:18)
[2020-01-21] MEDS: RIFAXIMIN 550 MG TABLET PO SCH ×2 (13:18→22:07)
[2020-01-21] MEDS: AZITHROMYCIN 250 MG TAB PO SCH (13:18)
[2020-01-21] MEDS: FOLIC ACID 1 MG TAB PO SCH (13:18)
[2020-01-21] MEDS ORDERED: PEG 3350-NA SULF,BICARB,CL/KCL 4,000 ML BOTTLE PO ONE (13:20)
--- NOTE | 2020-01-21 13:48 | P.PN ---
Subjective Progress Note Date: 01/21/20 Principal diagnosis: GI bleed The patient was seen and examined this morning. It was reported that she had maroon-colored stools through the night with clots. The dayshift nurse stated that she saw dark stool this morning. Hemoglobin is 7.4 after 2 units of packed red blood cell transfusion. She denies any abdominal pain, nausea, or vomiting. The patient was scheduled for an EGD with small bowel video capsule endoscopy today. This morning there was extensive discussion with the patient regarding need for colonoscopy due to a positive tagged red blood cell study which showed possible location of bleeding coming from the ascending colon. That time the patient was very upset and stated she did not want to have a repeat colonoscopy, she stated she could not tolerate the prep. It was discussed with her at that time the other option would be to transfer to a tertiary center for CT angiography with coiling, the patient states she also did not want to be transferred from this hospital. It was then discussed with the patient that she continues to have bleeding, if the source is not found and corrected she may continue to bleed which could include possible . She is now agreeable to the EGD and colonoscopy. I spoke with the patient's legal guardian Calvin Tierney he was agreeable for the patient to proceed with an EGD and colonoscopy tomorrow. Objective - Vital Signs Vital signs: Vital Signs Temp 97.8 F 01/21/20 11:34 Pulse 78 01/21/20 11:34 Resp 20 01/21/20 11:34 BP 127/78 01/21/20 11:34 Pulse Ox 91 L 01/21/20 11:34 Intake & Output 01/20/20 01/21/20 01/21/20 18:59 06:59 18:59 Intake Total 0 310 Output Total 400 Balance 0 310 -400 Intake: Blood Product 0 310 Rc Irr As1 Unit 0 310 [id number] Output: Urine 400 Other: Voiding Method Bedpan # Voids 1 # Bowel Movements 2 1 4 - Exam General appearance: The patient is alert, appears comfortable in no apparent distress HET: Head is normocephalic and atraumatic. Conjunctiva pink. Sclera anicteric. Neck: Supple, acute midline, no gross abnormalities. Abdomen: Soft, obese, nontender, nondistended with bowel sounds. No guarding or rigidity. Extremities: Normal skin color and turgor. Pedal edema bilaterally. Neurological: No focal deficits. Alert and oriented 3. - Labs CBC & Chem 7: 01/21/20 00:20 01/19/20 13:05 Labs: Abnormal Lab Results - Last 24 Hours (Table) 01/19/20 01/20/20 01/20/20 Range/Units 14:30 17:35 20:08 WBC (3.8-10.6) k/uL RBC (3.80-5.40) m/uL Hgb (11.4-16.0) gm/dL Hct (34.0-46.0) % RDW (11.5-15.5) % Plt Count (150-450) k/uL POC Glucose (mg/dL) 103 H 181 H (75-99) mg/dL Crossmatch See Detail 01/21/20 01/21/20 01/21/20 Range/Units 00:20 06:04 11:20 WBC 2.9 L (3.8-10.6) k/uL RBC 2.48 L (3.80-5.40) m/uL Hgb 7.4 L (11.4-16.0) gm/dL Hct 23.1 L (34.0-46.0) % RDW 15.6 H (11.5-15.5) % Plt Count 73 L (150-450) k/uL POC Glucose (mg/dL) 109 H 108 H (75-99) mg/dL Crossmatch Assessment and Plan (1) GI bleed Narrative/Plan: 70-year-old female who presents due to concerns over GI bleeding. Multiple hospitalizations with similar complaints in the past. Previously underwent EGD with no active bleeding and colonoscopy with old clots and blood noted throughout the colon. Video capsule endoscopy which was performed in evaluation also suggested a lower GI bleeding source. The patient was offered for repeat colonoscopy with prep but has continued to refuse on repeat hospitalizations. Last hospitalization evaluation with tagged red blood cell scan was negative. Concern is for diverticular bleed, AVM, malignancy or other etiology. A repeat tagged red blood cell study was completed this admission that shows potential site of active bleeding involving the ascending colon. Plan is for a repeat upper and lower endoscopy. Patient will start bowel prep today. Current Visit: Yes Status: Acute Code(s): K92.2 - GASTROINTESTINAL HEMORRHAGE, UNSPECIFIED SNOMED Code(s): 28288401 (2) Anemia associated with acute blood loss Current Visit: No Status: Acute Code(s): D62 - ACUTE POSTHEMORRHAGIC ANEMIA SNOMED Code(s): 789269969 Plan: Supportive care Clear liquid diet Nothing by mouth after midnight Continue to monitor hemoglobin and hematocrit daily, transfuse if less than 7 Tagged red blood cell scan ordered and reviewed Bowel prep Extensive discussion was had with the patient regarding positive tagged red blo od cell scan showing possible bleed in her ascending colon, recommend that she has a colonoscopy for evaluation. Patient was finally agreeable, her legal guardian was contacted over the phone and also agreeable. Patient scheduled tomorrow for upper and lower endoscopy. All the risks, benefits and consultations of the procedures have been discussed with the patient. EGD with small bowel video capsule endoscopy canceled for today, as patient is agreeable now to colonoscopy and will be rescheduled for tomorrow. Dr. Ingram I agree with the dictator's note, documented as a scribe by Leatha Beaver.
[2020-01-21 16:51] LABS: Glucose,Whole Blood 107 mg/dL (75-99)
[2020-01-21] MEDS: THIAMINE 100 MG TAB PO SCH (16:56)
[2020-01-21] MEDS: MULTIVITAMINS, THERA 1 EACH TAB PO SCH (16:56)
[2020-01-21] MEDS: ANASTROZOLE 1 MG TAB PO SCH (16:57)
[2020-01-21 20:30] LABS: Glucose,Whole Blood 136 mg/dL (75-99)
[2020-01-21] MEDS: INSULIN DETEMIR (LEVEMIR) 100 UNIT/ML SYR SQ SCH (20:32)
[2020-01-21] MEDS: SODIUM CHLORIDE 0.9% 1,000 ML IV SCH (22:07)
[2020-01-22 06:05] LABS: Glucose,Whole Blood 99 mg/dL (75-99)
[2020-01-22 09:10] LABS: HCT 24.3 % (34.0-46.0); HGB 7.7 gm/dL (11.4-16.0); Hypochromasia Marked; MCH 29.8 pg (25.0-35.0); MCHC 31.8 g/dL (31.0-37.0); MCV 93.6 fL (80.0-100.0); Mean Platelet Volume 8.9; Poikilocytosis Moderate; RDW 15.9 % (11.5-15.5); WBC 3.1 k/uL (3.8-10.6)
[2020-01-22 09:11] LABS: Calcium 7.8 mg/dL (8.4-10.2); Potassium 4.3 mmol/L (3.5-5.1)
[2020-01-22 09:15] LABS: Platelet Count 95 k/uL (150-450)
[2020-01-22] MEDS: HYDROcodone/APAP 10-325MG 1 EACH TAB PO PRN ×3 (09:21→21:58)
[2020-01-22] MEDS: ONDANSETRON 4 MG/2 ML VIAL IVP PRN ×2 (09:21→17:00)
[2020-01-22] MEDS: PANTOPRAZOLE 40 MG/10 ML VIAL IV SCH (09:21)
--- NOTE | 2020-01-22 11:14 | P.PN ---
Subjective Progress Note Date: 01/22/20 Principal diagnosis: GI bleed The patient is seen and examined lying in bed. She is scheduled for an EGD and colonoscopy today. She states she could not finish her prep yesterday because it was making her nauseated. She is still having dark watery stool. She denies any abdominal pain, nausea, or vomiting currently. Her hemoglobin this morning was 7.7. Her rapid wood virus test came back positive. Objective - Vital Signs Vital signs: Vital Signs Temp 98.5 F 01/22/20 08:00 Pulse 86 01/22/20 08:00 Resp 18 01/22/20 08:00 BP 113/73 01/22/20 08:00 Pulse Ox 94 L 01/22/20 08:00 Intake & Output 01/21/20 01/22/20 01/22/20 18:59 06:59 18:59 Intake Total 160 Output Total 400 Balance -240 Intake: Intake, IV Titration 160 Amount Sodium Chloride 0.9% 1, 160 000 ml @ 20 mls/hr IV . Q24H [facility] Rx#:[id number] Output: Urine 400 Other: Voiding Method Bedpan Bedpan # Voids 2 # Bowel Movements 4 4 - Exam General appearance: The patient is alert, appears comfortable in no apparent distress HET: Head is normocephalic and atraumatic. Conjunctiva pink. Sclera anicteric. Neck: Supple, acute midline, no gross abnormalities. Abdomen: Soft, obese, nontender, nondistended with bowel sounds. No guarding or rigidity. Extremities: Normal skin color and turgor. Pedal edema bilaterally. Neurological: No focal deficits. Alert and oriented 3. - Labs CBC & Chem 7: 01/22/20 08:21 01/22/20 08:21 Labs: Abnormal Lab Results - Last 24 Hours (Table) 01/21/20 01/21/20 01/21/20 Range/Units 11:20 14:39 16:49 WBC (3.8-10.6) k/uL RBC (3.80-5.40) m/uL Hgb (11.4-16.0) gm/dL Hct (34.0-46.0) % RDW (11.5-15.5) % Plt Count (150-450) k/uL Sodium (137-145) mmol/L BUN (7-17) mg/dL Creatinine (0.52-1.04) mg/dL POC Glucose (mg/dL) 108 H 107 H (75-99) mg/dL Calcium (8.4-10.2) mg/dL Coronavirus (PCR) Detected A (Not Detectd) 01/21/20 01/22/20 01/22/20 Range/Units 20:29 08:21 08:21 WBC 3.1 L (3.8-10.6) k/uL RBC 2.60 L (3.80-5.40) m/uL Hgb 7.7 L (11.4-16.0) gm/dL Hct 24.3 L (34.0-46.0) % RDW 15.9 H (11.5-15.5) % Plt Count 95 L (150-450) k/uL Sodium 134 L (137-145) mmol/L BUN 21 H (7-17) mg/dL Creatinine 1.26 H (0.52-1.04) mg/dL POC Glucose (mg/dL) 136 H (75-99) mg/dL Calcium 7.8 L (8.4-10.2) mg/dL Coronavirus (PCR) (Not Detectd) Assessment and Plan (1) GI bleed Narrative/Plan: 70-year-old female who presents due to concerns over GI bleeding. Multiple hospitalizations with similar complaints in the past. Previously underwent EGD with no active bleeding and colonoscopy with old clots and blood noted throughout the colon. Video capsule endoscopy which was performed in evaluation also suggested a lower GI bleeding source. The patient was offered for repeat colonoscopy with prep but has continued to refuse on repeat hospitalizations. Last hospitalization evaluation with tagged red blood cell scan was negative. Concern is for diverticular bleed, AVM, malignancy or other etiology. A repeat tagged red blood cell study was completed this admission that shows potential site of active bleeding involving the ascending colon. Plan is for a repeat upper and lower endoscopy. Patient will continue a 2 day bowel prep, as she was unable to finish the prep yesterday. EGD and colonoscopy will be rescheduled for tomorrow. Current Visit: Yes Status: Acute Code(s): K92.2 - GASTROINTESTINAL HEMORRHAGE, UNSPECIFIED SNOMED Code(s): 38832385 (2) Anemia associated with acute blood loss Current Visit: No Status: Acute Code(s): D62 - ACUTE POSTHEMORRHAGIC ANEMIA SNOMED Code(s): 961068500 Plan: Supportive care Clear liquid diet Nothing by mouth after midnight Continue to monitor hemoglobin and hematocrit daily, transfuse if less than 7 Tagged red blood cell scan ordered and reviewed Complete bowel prep today Antiemetics as needed Extensive discussion was had with the patient regarding positive tagged red blood cell scan showing possible bleed in her ascending colon, recommend that she has a colonoscopy for evaluation. Patient was finally agreeable, her legal guardian was contacted over the phone and also agreeable. Patient scheduled tomorrow for upper and lower endoscopy. All the risks, benefits and consultations of the procedures have been discussed with the patient. Patient is rescheduled for EGD and colonoscopy to be performed tomorrow Dr. Ingram I agree with the dictator's note, documented as a scribe by Leatha Beaver.
--- NOTE | 2020-01-22 11:19 | P.PN ---
Progress Note - Text Progress Note Date: 01/21/20 Chief Complaint: Lower GI bleed History of presenting complaint: This is a 70 year patient currently at [facility] being sent by Dr. Han. Chronic stable medical conditions include CHF EF 55-60%, COPD, diabetes, fibromyalgia, hyperlipidemia, hypertension, chronic kidney disease stage III, rheumatoid arthritis, history of breast cancer with right sided mastectomy, peripheral neuropathy, chronic anxiety depression, liver cirrhosis with portal hypertension.uses a wheelchair to get about Patient was recently discharged from the hospital on December 25. admitted feeling weak tired rundown. Had 2 maroon stools in the hospital. In August of this year patient had undergone EGD and colonoscopy. Showing diverticulosis. Small bowel capsule study was also unremarkable. Source was felt to be from diverticulosis.. tagged RBC scan. Negative. Last admission patient refuses endoscopy.. Patient now presents to the [facility] as she had 3 episodes of stools with bright red blood with blood clots. Hemoglobin drawn a couple of days ago was 6.6. Patient felt weak and tired. No abdominal pain. No nausea vomiting. admitted with acute GI bleed- Today-patient refuses endoscopy. Patient had a dark stool. No abdominal pain. Tired.. Review of systems: Was done for constitutional, cardiovascular, GI, pulmonary. relevant finding as above Current medications reviewed in today's electronic records Physical examination: VITAL SIGNS: 98.5, 80, 20, 117/74, 94% room air GENERAL:reclining in bed, tired EYES: Pupils equal. Conjunctiva pale. NECK: JVD unable to assess; masses not palpable. HEART: First and second heart sounds are normal; mild edema. LUNGS: Respiratory rate increased; decreased breath sounds. ABDOMEN: Soft, nontender, liver spleen not palpable, no masses palpable. PSYCH: [Alert and oriented x3; mood and affect -anxious NEUROLOGICAL: Cranial nerves grossly intact; no facial asymmetry, decreased power lower extremity. Investigations: January 20: White count 2.9 hemoglobin 7.4 platelets 73 January 19: White count 1.8 hemoglobin 6.8 platelets 73 White count 2.9 hemoglobin 6.9 platelets 113 potassium 4.8 bun 37 creatinine 1.47 Previous testing: Hemoglobin 8.3 on January 13 BUN 59 creatinine 1.58 on December 28 Assessment: -Acute lower GI bleed, felt to be from ascending colon as tagged RBC scan... -Acute blood loss anemia from GI bleed, POApatient has been ordered secondary to blood -Chronic congestive heart failure from diastolic dysfunction EF 55-60% -COPD in an ex-smoker -Diabetes mellitus type 2 on oral hypoglycemic -Chronic fibromyalgia -Hyperlipidemia -Essential hypertension -Chronic kidney disease stage III from diabetic nephropathy and hypertensive nephrosclerosis -Rheumatoid arthritis -History of breast cancer with a right-sided mastectomy -Peripheral neuropathy secondary to diabetes -Chronic anxiety depression -Obesity -Liver cirrhosis with portal hypertension on Xifaxan Plan: Patient has been refusing endoscopy. I spoke at length with the patient. Explaining that if she continues to bleed that could be serious consequences including . Also does a question of her being transferred to a higher level of care if gastroenterology felt the need for the same. Patient agrees to per proceed with colonoscopy. Did convey this to ROBERT Guthrie from GI.
[2020-01-22 11:41] LABS: Glucose,Whole Blood 99 mg/dL (75-99)
[2020-01-22] MEDS: AZITHROMYCIN 250 MG TAB PO SCH (13:16)
[2020-01-22] MEDS: ZINC SULFATE 220 MG CAP PO SCH (13:16)
[2020-01-22] MEDS: RIFAXIMIN 550 MG TABLET PO SCH ×2 (13:16→20:42)
[2020-01-22] MEDS: GABAPENTIN 100 MG CAP PO SCH ×3 (13:16→20:42)
[2020-01-22] MEDS: ASCORBIC ACID 500 MG TAB PO SCH (13:17)
[2020-01-22] MEDS: THIAMINE 100 MG TAB PO SCH (13:17)
[2020-01-22] MEDS: SERTRALINE 25 MG TAB PO SCH (13:17)
[2020-01-22] MEDS: MULTIVITAMINS, THERA 1 EACH TAB PO SCH (13:17)
[2020-01-22] MEDS: FOLIC ACID 1 MG TAB PO SCH (13:17)
[2020-01-22] MEDS: ANASTROZOLE 1 MG TAB PO SCH (13:17)
[2020-01-22] MEDS: SPIRONOLACTONE 25 MG TAB PO SCH (13:18)
[2020-01-22 16:41] LABS: Glucose,Whole Blood 117 mg/dL (75-99)
[2020-01-22] MEDS: SODIUM CHLORIDE 0.9% 1,000 ML IV SCH (17:54)
[2020-01-22 20:12] LABS: Glucose,Whole Blood 134 mg/dL (75-99)
[2020-01-22] MEDS: INSULIN DETEMIR (LEVEMIR) 100 UNIT/ML SYR SQ SCH (20:42)
--- NOTE | 2020-01-22 22:26 | P.PN ---
Progress Note - Text Progress Note Date: 01/22/20 Chief Complaint: Lower GI bleed History of presenting complaint: This is a 70 year patient currently at [facility] being sent by Dr. Han. Chronic stable medical conditions include CHF EF 55-60%, COPD, diabetes, fibromyalgia, hyperlipidemia, hypertension, chronic kidney disease stage III, rheumatoid arthritis, history of breast cancer with right sided mastectomy, peripheral neuropathy, chronic anxiety depression, liver cirrhosis with portal hypertension.uses a wheelchair to get about Patient was recently discharged from the hospital on December 25. admitted feeling weak tired rundown. Had 2 maroon stools in the hospital. In August of this year patient had undergone EGD and colonoscopy. Showing diverticulosis. Small bowel capsule study was also unremarkable. Source was felt to be from diverticulosis.. tagged RBC scan. Negative. Last admission patient refuses endoscopy.. Patient now presents to the [facility] as she had 3 episodes of stools with bright red blood with blood clots. Hemoglobin drawn a couple of days ago was 6.6. Patient felt weak and tired. No abdominal pain. No nausea vomiting. admitted with acute GI bleed-initially refused endoscopy. After counseling is agreed for endoscopy Today-on a liquid diet. Being prepared for colonoscopy for tomorrow. Review of systems: Was done for constitutional, cardiovascular, GI, pulmonary. relevant finding as above Active Medications Acetaminophen (Acetaminophen Tab 325 Mg Tab) 650 mg PO Q4H PRN PRN Reason: Fever and/ or Pain Hydrocodone Bitart/Acetaminophen (Hydrocodone/Apap 10-325mg 1 Each Tab) 1 each PO Q6HR PRN PRN Reason: Pain Last Admin: 01/22/20 21:58 Dose: 1 each Documented by: Anastrozole (Anastrozole 1 Mg Tab) 1 mg PO DAILY@0900 [facility] Last Admin: 01/22/20 13:17 Dose: 1 mg Documented by: Artificial Tears (Artificial Tears-Hypromellose Drops 15 Ml Btl) 1 drops BOTH EYES Q12H PRN PRN Reason: Dry Eye(S)/redness Ascorbic Acid (Ascorbic Acid 500 Mg Tab) 500 mg PO DAILY@0900 [facility] Last Admin: 01/22/20 13:17 Dose: 500 mg Documented by: Azithromycin (Azithromycin 250 Mg Tab) 250 mg PO DAILY@0900 [facility] Last Admin: 01/22/20 13:16 Dose: 250 mg Documented by: Ergocalciferol (Ergocalciferol 50,000 Unit Cap) 50,000 unit PO Q14D@0900 [facility] Folic Acid (Folic Acid 1 Mg Tab) 1 mg PO DAILY@0900 [facility] Last Admin: 01/22/20 13:17 Dose: 1 mg Documented by: Gabapentin (Gabapentin 100 Mg Cap) 200 mg PO TID@0900,1500,2100 [facility] Last Admin: 01/22/20 20:42 Dose: 200 mg Documented by: Sodium Chloride (Saline 0.9%) 1,000 mls @ 20 mls/hr IV .Q24H [facility] Last Admin: 01/22/20 17:54 Dose: Not Given Documented by: Insulin Detemir (Insulin Detemir (Levemir) 100 Unit/Ml Syr) 15 unit SQ HS@2099 [facility] Last Admin: 01/22/20 20:42 Dose: 15 unit Documented by: Multivitamins (Multivitamins, Thera 1 Each Tab) 1 each PO DAILY@1500 [facility] Last Admin: 01/22/20 13:17 Dose: 1 each Documented by: Naloxone HCl (Naloxone 0.4 Mg/Ml 1 Ml Vial) 0.2 mg IV Q2M PRN PRN Reason: Opioid Reversal Ondansetron HCl (Ondansetron 4 Mg/2 Ml Vial) 4 mg IVP Q8HR PRN PRN Reason: Nausea And Vomiting Last Admin: 01/22/20 17:00 Dose: 4 mg Documented by: Ondansetron HCl (Ondansetron 4 Mg Tab) 4 mg PO TID PRN PRN Reason: Nausea And Vomiting Oxymetazoline HCl (Oxymetazoline 0.05% Nasl [place] 1 [place] Bottle) 1 spray NASAL Q15M PRN PRN Reason: BLOODY NOSE Pantoprazole Sodium (Pantoprazole 40 Mg/10 Ml Vial) 40 mg IV DAILY [facility] Last Admin: 01/22/20 09:21 Dose: 40 mg Documented by: Rifaximin (Rifaximin 550 Mg Tablet) 550 mg PO BID@899,2099 [facility] Stop: 02/18/20 21:01 Last Admin: 01/22/20 20:42 Dose: 550 mg Documented by: Sertraline HCl (Sertraline 25 Mg Tab) 25 mg PO DAILY@0900 [facility] Last Admin: 01/22/20 13:17 Dose: 25 mg Documented by: Spironolactone (Spironolactone 25 Mg Tab) 50 mg PO DAILY@0900 [facility] Last Admin: 01/22/20 13:18 Dose: Not Given Documented by: Thiamine HCl (Thiamine 100 Mg Tab) 100 mg PO DAILY@1500 [facility] Last Admin: 01/22/20 13:17 Dose: 100 mg Documented by: Zinc Sulfate (Zinc Sulfate 220 Mg Cap) 220 mg PO DAILY@0900 [facility] Last Admin: 01/22/20 13:16 Dose: 220 mg Documented by: Physical examination: VITAL SIGNS: 98, 84, 18, 91/63, 96% room air GENERAL: Sitting up in bed, tired EYES: Pupils equal. Conjunctiva pale. NECK: JVD unable to assess; masses not palpable. HEART: First and second heart sounds are normal; mild edema. LUNGS: Respiratory rate increased; decreased breath sounds. ABDOMEN: Soft, nontender, liver spleen not palpable, no masses palpable. PSYCH: [Alert and oriented x3; mood and affect -anxious NEUROLOGICAL: Cranial nerves grossly intact; no facial asymmetry, decreased power lower extremity. Investigations: January 21: White count 3.1 hemoglobin 7.7 platelets 95 potassium 4.3 creatinine 1.26 January 20: White count 2.9 hemoglobin 7.4 platelets 73 January 19: White count 1.8 hemoglobin 6.8 platelets 73 White count 2.9 hemoglobin 6.9 platelets 113 potassium 4.8 bun 37 creatinine 1.47 Previous testing: Hemoglobin 8.3 on January 13 BUN 59 creatinine 1.58 on December 28 Assessment: -Acute lower GI bleed, felt to be from ascending colon as tagged RBC scan... Pending endoscopy -Acute blood loss anemia from GI bleed,-receive 2 units of blood -Chronic congestive heart failure from diastolic dysfunction EF 55-60% -COPD in an ex-smoker -Diabetes mellitus type 2 on oral hypoglycemic -Chronic fibromyalgia -Hyperlipidemia -Essential hypertension -Chronic kidney disease stage III from diabetic nephropathy and hypertensive nephrosclerosis -Rheumatoid arthritis -History of breast cancer with a right-sided mastectomy -Peripheral neuropathy secondary to diabetes -Chronic anxiety depression -Obesity -Liver cirrhosis with portal hypertension on Xifaxan Plan: Discussed with patient. Continue medication treatment plan. Pending colonoscopy tomorrow.
[2020-01-23] MEDS: ONDANSETRON 4 MG/2 ML VIAL IVP PRN ×2 (00:05→13:00)
[2020-01-23] MEDS: HYDROcodone/APAP 10-325MG 1 EACH TAB PO PRN ×2 (03:53→09:45)
[2020-01-23 06:11] LABS: Glucose,Whole Blood 103 mg/dL (75-99)
[2020-01-23 07:59] LABS: Basophils % (A) 1 %; Eosinophils # (A) 0.1 k/uL (0-0.7); Eosinophils % (A) 3 %; HCT 25.1 % (34.0-46.0); HGB 7.8 gm/dL (11.4-16.0); Hypochromasia Marked; Lymphocytes # (A) 0.7 k/uL (1.0-4.8); Lymphocytes % (A) 24 %; MCH 29.6 pg (25.0-35.0); MCV 95.7 fL (80.0-100.0); Mean Platelet Volume 9.3; Monocytes # (A) 0.3 k/uL (0-1.0); Monocytes % (A) 9 %; Neutrophils # (A) 1.7 k/uL (1.3-7.7); Neutrophils % (A) 60 %; Poikilocytosis Moderate; RBC 2.62 m/uL (3.80-5.40); RDW 15.8 % (11.5-15.5); WBC 2.8 k/uL (3.8-10.6)
[2020-01-23 08:02] LABS: Platelet Count 91 k/uL (150-450)
[2020-01-23] MEDS: GABAPENTIN 100 MG CAP PO SCH ×3 (09:44→21:40)
[2020-01-23] MEDS: PANTOPRAZOLE 40 MG/10 ML VIAL IV SCH (09:44)
[2020-01-23 11:46] LABS: Glucose,Whole Blood 93 mg/dL (75-99)
[2020-01-23] MEDS ORDERED: PROPOFOL 10 MG/ML 20 ML VIAL IV ONE (14:20)
[2020-01-23] MEDS ORDERED: LIDOCAINE 1% INJ 10MG/ML (20 ML MDV) ONE (14:20)
[2020-01-23] MEDS ORDERED: IV FLUID CONTINUATION 1,000 ML IV ONE (14:29)
--- NOTE | 2020-01-23 16:20 | P.PCN ---
Date of Procedure: 01/23/20 Description of Procedure: BRIEF HISTORY: 70-year-old female with multiple medical comorbidities including congestive heart failure, COPD, diabetes mellitus, fibromyalgia, hyperlipidemia, hypertension, chronic kidney disease, rheumatoid arthritis, history of breast cancer with right sided mastectomy, anxiety and depression, diverticulosis and multiple hospitalizations for GI bleeding who presented to the hospital due to concerns over further GI bleeding. The patient had been reporting feeling weak and right down. She had 2 episodes of lower described as maroon-colored stool. She has had endoscopic evaluation in the past in 08/2019 with EGD significant for mild gastritis and a small hiatal hernia and no GI bleed noted and colonoscopy at that time showing diverticulosis with a fair prep and a large amount of old blood and clots throughout the colon without active bleeding or source of bleeding identified. The patient had been offered a repeat colonoscopy at that time with further prep but refused. She underwent video capsule endoscopy which showed old blood in the colon without active bleeding. Computed tomography scan in the past has shown a cirrhotic appearing liver with very slight and perigastric varices. She was hospitalized further time with GI bleeding again reported at that time continued to refuse further endoscopic evaluation. She underwent a tagged red blood cell scan which showed potential area of bleeding in the ascending colon. PROCEDURE PERFORMED: Esophagogastroduodenoscopy. Colonoscopy. PREOPERATIVE DIAGNOSIS: Hematochezia, GI bleed, anemia of acute blood loss. ESTIMATED BLOOD LOSS: Minimal. IV sedation per Anesthesia. PROCEDURE: After informed consent was obtained, the patient was brought into the endoscopy unit. IV sedation was administered by Anesthesia under continuous monitoring. Initially the Olympus GIF-190 video endoscope was inserted into the mouth. Esophagus intubated without any difficulty. It was gradually advanced into the stomach and duodenum and carefully examined. The bulb and the second part of the duodenum appeared normal. The scope at this time was withdrawn to the stomach, adequately insufflated with air, and upon careful examination, mucosa of the antrum, body, cardia and the fundus appeared normal. The scope was then withdrawn into the esophagus. The GE junction was located at 37 cm from the incisors. The esophagus appeared normal, except for some LA grade a distal esophagitis. There were no erosions or ulcerations seen and the patient tolerated the procedure well. After informed consent was obtained, the patient, was brought into the endoscopy unit. IV sedation was administered by Anesthesia under continuous monitoring. Digital rectal examination was normal. Initially the Olympus CF-190 flexible video colonoscope was then inserted in the rectum, gradually advanced into the cecum without any difficulty. Careful examination was performed as the scope was gradually being withdrawn. Ileocecal valve and the appendiceal orifice were visualized and appeared normal. Prep was good with fresh blood noted throughout the colon with some clots which were lavaged and suctioned. Mucosa of the cecum, ascending colon, transverse colon, descending colon, sigmoid colon, and rectum appeared normal, with diverticula and both fresh blood and clots noted throughout the entire examined colon. Extensive lavage was performed and no active bleeding was seen. The terminal ileum was intubated and hemolyzed blood was noted with no active bleeding. Retroflexion was performed in the rectum and no lesions were seen. The patient tolerated the procedure well. IMPRESSION: LA grade a esophagitis. No old blood, active bleeding or pathology to explain symptoms on EGD. Fresh blood noted throughout the colon from rectum to cecum, extensive lavage with no active bleeding identified. Mild pandiverticulosis. A few polyps were noted and not removed in the setting of active GI bleed. Some hemolyzed blood noted in the terminal ileum, may be related to backwash from colonic bleed. RECOMMENDATIONS: Findings of this examination were discussed with the patient, the admitting service and the surgical team. At this time patient will remain nothing by mouth. Continue monitor hemoglobin and hematocrit and transfuse as needed. Continue monitor for signs or symptoms of GI bleeding with no active bleeding seen during endoscopy. The case and options will be discussed with the patient, consideration is for transfer to tertiary center for CT angiography with possible coiling, continued conservative management for possible surgical intervention if symptoms persist.
[2020-01-23 17:07] LABS: Glucose,Whole Blood 94 mg/dL (75-99)
[2020-01-23] MEDS: SERTRALINE 25 MG TAB PO SCH (18:36)
[2020-01-23] MEDS: RIFAXIMIN 550 MG TABLET PO SCH ×2 (18:36→18:40)
[2020-01-23] MEDS: ASCORBIC ACID 500 MG TAB PO SCH (18:36)
[2020-01-23] MEDS: AZITHROMYCIN 250 MG TAB PO SCH (18:36)
[2020-01-23] MEDS: ZINC SULFATE 220 MG CAP PO SCH (18:37)
[2020-01-23] MEDS: ANASTROZOLE 1 MG TAB PO SCH (18:37)
[2020-01-23] MEDS: SPIRONOLACTONE 25 MG TAB PO SCH (18:37)
[2020-01-23] MEDS: FOLIC ACID 1 MG TAB PO SCH (18:37)
[2020-01-23] MEDS: THIAMINE 100 MG TAB PO SCH (18:38)
[2020-01-23] MEDS: SODIUM CHLORIDE 0.9% 1,000 ML IV SCH (18:38)
[2020-01-23] MEDS: MULTIVITAMINS, THERA 1 EACH TAB PO SCH (18:38)
--- NOTE | 2020-01-23 20:32 | P.PN ---
Progress Note - Text Progress Note Date: 01/23/20 Chief Complaint: Lower GI bleed History of presenting complaint: This is a 70 year patient currently at [facility] being sent by Dr. Han. Chronic stable medical conditions include CHF EF 55-60%, COPD, diabetes, fibromyalgia, hyperlipidemia, hypertension, chronic kidney disease stage III, rheumatoid arthritis, history of breast cancer with right sided mastectomy, peripheral neuropathy, chronic anxiety depression, liver cirrhosis with portal hypertension.uses a wheelchair to get about Patient was recently discharged from the hospital on December 25. admitted feeling weak tired rundown. Had 2 maroon stools in the hospital. In August of this year patient had undergone EGD and colonoscopy. Showing diverticulosis. Small bowel capsule study was also unremarkable. Source was felt to be from diverticulosis.. tagged RBC scan. Negative. Last admission patient refuses endoscopy.. Patient now presents to the [facility] as she had 3 episodes of stools with bright red blood with blood clots. Hemoglobin drawn a couple of days ago was 6.6. Patient felt weak and tired. No abdominal pain. No nausea vomiting. admitted with acute GI bleed-initially refused endoscopy. After counseling is agreed for endoscopy [id number]. Colonoscopy-fresh blood throughout the colon. No obvious source found. Discussed with Dr. Wood. Review of systems: Was done for constitutional, cardiovascular, GI, pulmonary. relevant finding as above Active Medications Acetaminophen (Acetaminophen Tab 325 Mg Tab) 650 mg PO Q4H PRN PRN Reason: Fever and/ or Pain Hydrocodone Bitart/Acetaminophen (Hydrocodone/Apap 10-325mg 1 Each Tab) 1 each PO Q6HR PRN PRN Reason: Pain Last Admin: 01/23/20 09:45 Dose: 1 each Documented by: Anastrozole (Anastrozole 1 Mg Tab) 1 mg PO DAILY@0900 [facility] Last Admin: 01/23/20 18:37 Dose: 1 mg Documented by: Artificial Tears (Artificial Tears-Hypromellose Drops 15 Ml Btl) 1 drops BOTH EYES Q12H PRN PRN Reason: Dry Eye(S)/redness Ascorbic Acid (Ascorbic Acid 500 Mg Tab) 500 mg PO DAILY@0900 [facility] Last Admin: 01/23/20 18:36 Dose: 500 mg Documented by: Azithromycin (Azithromycin 250 Mg Tab) 250 mg PO DAILY@0900 [facility] Last Admin: 01/23/20 18:36 Dose: 250 mg Documented by: Ergocalciferol (Ergocalciferol 50,000 Unit Cap) 50,000 unit PO Q14D@0900 [facility] Folic Acid (Folic Acid 1 Mg Tab) 1 mg PO DAILY@0900 [facility] Last Admin: 01/23/20 18:37 Dose: Not Given Documented by: Gabapentin (Gabapentin 100 Mg Cap) 200 mg PO TID@0900,1500,2100 [facility] Last Admin: 01/23/20 18:36 Dose: 200 mg Documented by: Sodium Chloride (Saline 0.9%) 1,000 mls @ 20 mls/hr IV .Q24H [facility] Last Admin: 01/23/20 18:38 Dose: Not Given Documented by: Insulin Detemir (Insulin Detemir (Levemir) 100 Unit/Ml Syr) 15 unit SQ HS@2100 [facility] Last Admin: 01/22/20 20:42 Dose: 15 unit Documented by: Multivitamins (Multivitamins, Thera 1 Each Tab) 1 each PO DAILY@1500 [facility] Last Admin: 01/23/20 18:38 Dose: Not Given Documented by: Naloxone HCl (Naloxone 0.4 Mg/Ml 1 Ml Vial) 0.2 mg IV Q2M PRN PRN Reason: Opioid Reversal Ondansetron HCl (Ondansetron 4 Mg/2 Ml Vial) 4 mg IVP Q8HR PRN PRN Reason: Nausea And Vomiting Last Admin: 01/23/20 13:00 Dose: 4 mg Documented by: Ondansetron HCl (Ondansetron 4 Mg Tab) 4 mg PO TID PRN PRN Reason: Nausea And Vomiting Oxymetazoline HCl (Oxymetazoline 0.05% Nasl [place] 1 [place] Bottle) 1 spray NASAL Q15M PRN PRN Reason: BLOODY NOSE Pantoprazole Sodium (Pantoprazole 40 Mg/10 Ml Vial) 40 mg IV DAILY [facility] Last Admin: 01/23/20 09:44 Dose: 40 mg Documented by: Rifaximin (Rifaximin 550 Mg Tablet) 550 mg PO BID@0900,2100 [facility] Stop: 02/18/20 21:01 Last Admin: 01/23/20 18:40 Dose: Not Given Documented by: Sertraline HCl (Sertraline 25 Mg Tab) 25 mg PO DAILY@0900 [facility] Last Admin: 01/23/20 18:36 Dose: 25 mg Documented by: Spironolactone (Spironolactone 25 Mg Tab) 50 mg PO DAILY@0900 [facility] Last Admin: 01/23/20 18:37 Dose: Not Given Documented by: Thiamine HCl (Thiamine 100 Mg Tab) 100 mg PO DAILY@1500 [facility] Last Admin: 01/23/20 18:38 Dose: Not Given Documented by: Zinc Sulfate (Zinc Sulfate 220 Mg Cap) 220 mg PO DAILY@0900 [facility] Last Admin: 01/23/20 18:37 Dose: 220 mg Documented by: Physical examination: VITAL SIGNS: 98, 80, 18, 102/71, 96% room air GENERAL: Laying in bed, tired EYES: Pupils equal. Conjunctiva pale. NECK: JVD unable to assess; masses not palpable. HEART: First and second heart sounds are normal; mild edema. LUNGS: Respiratory rate increased; decreased breath sounds. ABDOMEN: Soft, nontender, liver spleen not palpable, no masses palpable. PSYCH: [Alert and oriented x3; mood and affect -anxious NEUROLOGICAL: Cranial nerves grossly intact; no facial asymmetry, decreased power lower extremity. Investigations: January 22: White count 2.8 hemoglobin 7.8 platelets 91 January 21: White count 3.1 hemoglobin 7.7 platelets 95 potassium 4.3 creatinine 1.26 January 20: White count 2.9 hemoglobin 7.4 platelets 73 January 19: White count 1.8 hemoglobin 6.8 platelets 73 White count 2.9 hemoglobin 6.9 platelets 113 potassium 4.8 bun 37 creatinine 1.47 Previous testing: Hemoglobin 8.3 on January 13 BUN 59 creatinine 1.58 on December 28 Assessment: -Acute lower GI bleed, felt to be from ascending colon as tagged RBC scan... Pending endoscopy -Acute blood loss anemia from GI bleed,-receive 2 units of blood -Chronic congestive heart failure from diastolic dysfunction EF 55-60% -COPD in an ex-smoker -Diabetes mellitus type 2 on oral hypoglycemic -Chronic fibromyalgia -Hyperlipidemia -Essential hypertension -Chronic kidney disease stage III from diabetic nephropathy and hypertensive nephrosclerosis -Rheumatoid arthritis -History of breast cancer with a right-sided mastectomy -Peripheral neuropathy secondary to diabetes -Chronic anxiety depression -Obesity -Liver cirrhosis with portal hypertension on Xifaxan -Pancytopenia from cirrhosis -Patient has a legal guardian-Calvin Whipple Plan: Discussed at length with Dr. Wood from GI. Patient has been bleeding for some time. Only other option would be either getting transferred to a higher center for embolization or partial colectomy as bleed appears to be from the right side of the colon. Decision was made to consult Dr. Seaman to whom the patient is known. Total time spent about 40 minutes with over 20 minutes of discussion.
[2020-01-23 20:42] LABS: Glucose,Whole Blood 96 mg/dL (75-99)
[2020-01-23] MEDS: INSULIN DETEMIR (LEVEMIR) 100 UNIT/ML SYR SQ SCH (21:40)
[2020-01-24] MEDS: HYDROcodone/APAP 10-325MG 1 EACH TAB PO PRN ×3 (04:24→23:32)
[2020-01-24 06:34] LABS: Glucose,Whole Blood 93 mg/dL (75-99)
[2020-01-24] MEDS: ONDANSETRON 4 MG/2 ML VIAL IVP PRN ×2 (06:45→16:42)
[2020-01-24] MEDS: MULTIVITAMINS, THERA 1 EACH TAB PO SCH (08:38)
[2020-01-24] MEDS: RIFAXIMIN 550 MG TABLET PO SCH ×2 (08:38→21:35)
[2020-01-24] MEDS: PANTOPRAZOLE 40 MG/10 ML VIAL IV SCH (08:38)
[2020-01-24] MEDS: THIAMINE 100 MG TAB PO SCH (08:38)
[2020-01-24] MEDS: AZITHROMYCIN 250 MG TAB PO SCH (08:38)
[2020-01-24] MEDS: GABAPENTIN 100 MG CAP PO SCH ×3 (08:38→21:24)
[2020-01-24] MEDS: FOLIC ACID 1 MG TAB PO SCH (08:38)
[2020-01-24] MEDS: ZINC SULFATE 220 MG CAP PO SCH (08:38)
[2020-01-24] MEDS: ANASTROZOLE 1 MG TAB PO SCH (08:38)
[2020-01-24] MEDS: SERTRALINE 25 MG TAB PO SCH (08:39)
[2020-01-24] MEDS: ASCORBIC ACID 500 MG TAB PO SCH (08:39)
[2020-01-24] MEDS: SPIRONOLACTONE 25 MG TAB PO SCH (08:39)
[2020-01-24 11:26] LABS: HCT 22.7 % (34.0-46.0); HGB 7.3 gm/dL (11.4-16.0); Hypochromasia Marked; MCH 29.8 pg (25.0-35.0); MCHC 32.3 g/dL (31.0-37.0); MCV 92.3 fL (80.0-100.0); Mean Platelet Volume 10.2; Poikilocytosis Moderate; RBC 2.46 m/uL (3.80-5.40); RDW 15.3 % (11.5-15.5); WBC 2.7 k/uL (3.8-10.6)
[2020-01-24 11:27] LABS: Platelet Count 95 k/uL (150-450)
[2020-01-24 11:34] LABS: Glucose,Whole Blood 98 mg/dL (75-99)
[2020-01-24] MEDS: SODIUM CHLORIDE 0.9% 1,000 ML IV SCH (11:36)
--- NOTE | 2020-01-24 11:41 | P.GSCN ---
History of Present Illness Consult date: 01/24/20 History of present illness: CHIEF COMPLAINT: GI bleed HISTORY OF PRESENT ILLNESS: This is a 70-year-old female with a known history of diverticulosis with diverticular GI bleed. Patient has had multiple hospitalizations for GI bleeding. She also has a history of congestive heart failure, COPD, liver cirrhosis, diabetes mellitus, fibromyalgia, hyperlipidemia, hypertension, chronic kidney disease, rheumatoid arthritis and history of breast cancer with right-sided mastectomy. Patient has been feeling weak and tired. She came into the ER due to having maroon-colored stools. Patient has required 2 units of blood during this admission. Admitting hemoglobin was 6.9. Hemoglobin today is 7.3 Patient had EGD and colonoscopy completed yesterday with Dr. Faith. Results showed LA grade a esophagitis. No old blood or active bleeding on EGD. Colonoscopy fresh blood noted throughout the colon from rectum to cecum extensive lavage with no active bleeding identified. Mild pandiverticulosis. A few polyps were noted and not removed in the setting of active GI bleed. Some hemolyzed blood noted in the terminal ileum, may be related to back rash from colonic bleed. Patient had tagged RBC scan on 01/20/2020 exam shows potential site of active bleeding involving the ascending colon. Patient denies any abdominal pain. She's has had nausea. She's had no further blood in the stools. She denies any fever or chills or sweats. PAST MEDICAL HISTORY: See list. PAST SURGICAL HISTORY: See list. MEDICATIONS: See list. ALLERGIES: See list. SOCIAL HISTORY: No illicit drug use. REVIEW OF SYSTEMS: CONSTITUTIONAL: Denies fever or chills. HEENT: Denies blurred vision, vision changes, or eye pain. Denies hemoptysis CARDIOVASCULAR: Denies chest pain or pressure. RESPIRATORY: No shortness of breath. GASTROINTESTINAL: See HPI for pertinent findings HEMATOLOGIC: Denies bleeding disorders. GENITOURINARY: Denies any blood in urine or increased urinary frequency. SKIN: Denies pruitis. Denies rash. PHYSICAL EXAM: VITAL SIGNS: Reviewed GENERAL: Well-developed in no acute distress. HEENT: No sclera icterus. Extraocular movements grossly intact. Moist buccal mucosa. Head is atraumatic, normocephalic. No nasal drainage. ABDOMEN: Soft. Obese. Nondistended. Nontender NEUROLOGIC: Alert and oriented. Cranial nerves II through XII grossly intact. LABORATORY DATA: WBC 2.7 hemoglobin 7.3 platelets 95 BUN 21 creatinine 1.26, COVID detected IMAGING: tagged RBC scan on 01/20/2020 exam shows potential site of active bleeding involving the ascending colon ASSESSMENT: 1. Acute GI bleed with colonoscopy revealing fresh blood noted throughout the colon from rectum to cecum. Mild pandiverticulosis 2. Acute blood loss anemia secondary to GI bleed 3. Diabetes mellitus type 2 4. Chronic kidney disease 5. History of liver cirrhosis with portal hypertension PLAN: -Plan for right colectomy on 01/27/[address] Seaman -Okay to start full liquid diet today -Continue to monitor hemoglobin Thank you for this consultation Physician Director Child note has been reviewed by physician. Signing provider agrees with the documented findings, assessment, and plan of care. Past Medical History Past Medical History: Cancer, Heart Failure, COPD, Diabetes Mellitus, Fibromyalgia, Hyperlipidemia, Hypertension, Renal Disease, Rheumatoid Arthritis (RA), Seizure Disorder, Supraventricular Tachycardia (SVT) Additional Past Medical History / Comment(s): Breast cancer right-sided post mastectomy followed by chemotherapy, is independent diabetes mellitus type 2, peripheral neuropathy related to diabetes, COPD, liver cirrhosis, hypertension, hyperlipidemia, fibromyalgia, chronic kidney disease, rheumatoid arthritis, seizure disorder, history of SVT, diabetic peripheral neuropathy, chronic anxiety and depression, morbid obesity with a BMI of 58.5, previous history of GI bleed, diverticular disease, history of hepatic encephalopathy History of Any Multi-Drug Resistant Organisms: VRE Year Discovered:: 05/11/18 MDRO Source:: VRE URINE Past Surgical History: Adenoidectomy, Appendectomy, Breast Surgery, Cholecystectomy, Hysterectomy, Orthopedic Surgery, Tonsillectomy, Tubal Ligation Additional Past Surgical History / Comment(s): masectomy right, ganglion cyst right hand, total hysterectomy (hx of tubal pregnancies), lower teeth extracted. Past Anesthesia/Blood Transfusion Reactions: No Reported Reaction Past Psychological History: Anxiety, Depression Smoking Status: Former smoker Past Alcohol Use History: None Reported Past Drug Use History: None Reported - Past Family History Father Family Medical History: Cancer, CVA/TIA Additional Family Medical History / Comment(s): 2000 from lung cancer Mother Family Medical History: Cancer, Dementia Additional Family Medical History / Comment(s): 2014 at age 86. Oral & Breast cancer Brother(s) Family Medical History: Asthma, Diabetes Mellitus, Fibromyalgia, Osteoarthritis (OA) Additional Family Medical History / Comment(s): Obesity. Joint replacements Medications and Allergies Home Medications Medication Instructions Recorded Confirmed Type Anastrozole [Arimidex] 1 mg PO DAILY@0900 09/30/14 01/19/20 History Sennosides [Senna] 8.6 mg PO BID@09,209904/02/18 01/19/20 History Pantoprazole [Protonix] 40 mg PO DAILY@59907/02/18 01/19/20 History Ferrous Sulfate [Iron (65 MG 325 mg PO DAILY@89908/16/18 01/19/20 History Elemental)] Ergocalciferol (Vitamin D2) 50,000 unit PO Q14D@89907/19/19 01/19/20 History [Drisdol] Acetaminophen [Tylenol] 650 mg PO Q4H PRN 08/24/19 01/19/20 History Dextran 70/Hypromellose [Genteal 1 drop BOTH EYES Q12H PRN 08/24/19 01/19/20 History Tears 0.1%-0.3% Drop] Folic Acid 1 mg PO DAILY@89908/24/19 01/19/20 History Lactulose 20 gm PO BID@0900,209908/24/19 01/19/20 History Multivitamins, Thera [Multivitamin 1 tab PO DAILY@149908/24/19 01/19/20 History (formulary)] Rifaximin [Xifaxan] 550 mg PO BID@09,209908/24/19 01/19/20 History Thiamine [Vitamin B-1] 100 mg PO DAILY@1500 08/24/19 01/19/20 History Melatonin 10 mg PO HS PRN 10/25/19 01/19/20 History Ondansetron [Zofran] 4 mg PO TID PRN 10/25/19 01/19/20 History Oxymetazoline 0.05% Nasl [place] 1 spray NASAL Q15M PRN MDD 3 DOSES 10/25/19 01/19/20 History [Afrin 0.05% Nasal [place]] Insulin Aspart [Insulin Aspart 4 unit SQ AC-TID 12/21/19 01/19/20 History Flexpen] Insulin Aspart [Insulin Aspart See Protocol SQ AC-TID 12/21/19 01/19/20 History Flexpen] Gabapentin [Neurontin] 200 mg PO TID@0900,1500,2099 #9 cap 12/26/19 01/19/20 Rx HYDROcodone/APAP 10-325MG [[place] 1 tab PO Q6HR PRN 3 Days #12 tab 12/26/19 01/19/20 Rx 10-325] Metoprolol Tartrate [Lopressor] 12.5 mg PO BID@0900,2099 #0 12/26/19 01/19/20 Rx Ascorbic Acid [Vitamin C] 500 mg PO DAILY@0900 01/19/20 01/19/20 History Azithromycin 250 mg PO DAILY@0900 01/19/20 01/19/20 History Insulin Glargine,Hum.rec.anlog 15 unit SQ HS@209901/19/20 01/19/20 History [Lantus Solostar] Sertraline HCl [Zoloft] 25 mg PO DAILY@0900 01/19/20 01/19/20 History Spironolactone [Aldactone] 50 mg PO DAILY@0900 01/19/20 01/19/20 History Zinc 50 mg PO DAILY@0900 01/19/20 01/19/20 History metOLazone [Zaroxolyn] 5 mg PO DAILY@0900 01/19/20 01/19/20 History Allergies Allergy/AdvReac Type Severity Reaction Status Date / Time cephalexin [From Keflex] Allergy Unknown Verified 01/19/20 13:16 duloxetine [From Cymbalta] Allergy Unknown Verified 01/19/20 13:16 Penicillins Allergy Rash/Hives Verified 01/19/20 13:16 phenobarbital Allergy Unknown Verified 01/19/20 13:16 phenytoin sodium Allergy Unknown Verified 01/19/20 13:16 [From Dilantin] phenytoin sodium extended Allergy Unknown Verified 01/19/20 13:16 [From Dilantin] primidone [From Mysoline] Allergy Unknown Verified 01/19/20 13:16 codeine AdvReac Nausea & Verified 01/19/20 13:16 Vomiting Surgical - Exam Vital Signs Temp Pulse Resp BP Pulse Ox 99.4 F 73 18 106/62 94 L 01/19/20 11:55 12/06/20 11:55 01/19/20 11:55 01/19/20 11:55 01/19/20 11:55 Results - Labs 01/24/20 10:32 01/22/20 08:21 Abnormal Lab Results - Last 24 Hours (Table) 01/24/20 Range/Units 10:32 WBC 2.7 L (3.8-10.6) k/uL RBC 2.46 L (3.80-5.40) m/uL Hgb 7.3 L (11.4-16.0) gm/dL Hct 22.7 L (34.0-46.0) % Plt Count 95 L (150-450) k/uL
--- NOTE | 2020-01-24 13:30 | P.PN ---
Subjective Progress Note Date: 01/24/20 Principal diagnosis: GI bleed The patient was seen and examined at the bedside. She denied any further bowel movements for the night. She is denying any abdominal pain, nausea, or vomiting. She is status post EGD and colonoscopy from yesterday which revealed LA grade a esophagitis no old blood, active bleeding or pathology to explain symptoms on EGD. Fresh blood noted throughout the colon from rectum to cecum, extensive lavage with no active bleeding identified. Mild pandiverticulosis. A few polyps were noted and were not removed in the setting of active GI bleed. S ome hemolyzed blood noted in the terminal ileum, may be related to back from colonic bleed. Surgery is on consult. Repeat hemoglobin this morning is 7.3. Objective - Vital Signs Vital signs: Vital Signs Temp 98.2 F 01/24/20 08:00 Pulse 74 01/24/20 08:00 Resp 18 01/24/20 08:00 BP 112/67 01/24/20 08:00 Pulse Ox 98 01/24/20 08:00 Intake & Output 01/23/20 01/24/20 01/24/20 18:59 06:59 18:59 Intake Total 650 1000 Output Total 500 600 Balance 650 500 -600 Weight 106.776 kg Intake: IV 650 Intake, IV Titration 1000 Amount IV Fluid Continuation 1, 1000 000 ml @ 0 mls/hr IV .[facility] Rx#:[id number] Oral 0 Output: Urine 500 600 Stool 0 0 Other: Voiding Method Bedpan Bedpan Bedpan Incontinent Incontinent Incontinent # Voids 1 2 # Bowel Movements 1 - Exam General appearance: The patient is alert, appears comfortable in no apparent distress HET: Head is normocephalic and atraumatic. Conjunctiva pink. Sclera anicteric. Neck: Supple, acute midline, no gross abnormalities. Abdomen: Soft, obese, nontender, nondistended with bowel sounds. No guarding or rigidity. Extremities: Normal skin color and turgor. Pedal edema bilaterally. Neurological: No focal deficits. Alert and oriented 3. - Labs CBC & Chem 7: 01/24/20 10:32 01/22/20 08:21 Labs: Abnormal Lab Results - Last 24 Hours (Table) 01/24/20 Range/Units 10:32 WBC 2.7 L (3.8-10.6) k/uL RBC 2.46 L (3.80-5.40) m/uL Hgb 7.3 L (11.4-16.0) gm/dL Hct 22.7 L (34.0-46.0) % Plt Count 95 L (150-450) k/uL Assessment and Plan (1) GI bleed Narrative/Plan: 70-year-old female who presents due to concerns over GI bleeding. Multiple hospitalizations with similar complaints in the past. Previously underwent EGD with no active bleeding and colonoscopy with old clots and blood noted throughout the colon. Video capsule endoscopy which was performed in evaluation also suggested a lower GI bleeding source. The patient was offered for repeat colonoscopy with prep but has continued to refuse on repeat hospitalizations. Last hospitalization evaluation with tagged red blood cell scan was negative. Concern is for diverticular bleed, AVM, malignancy or other etiology. A repeat tagged red blood cell study was completed this admission that shows potential site of active bleeding involving the ascending colon. Plan is for a repeat upper and lower endoscopy. Patient will continue a 2 day bowel prep, as she was unable to finish the prep yesterday. EGD and colonoscopy revealed LA grade a esophagitis, no blood, active bleeding or pathology to explain symptoms. Fresh blood noted throughout the colon from rectum to cecum, extensive lavage with no active bleeding identified. Mild pandiverticulosis. A few polyps were noted however were not removed due to active GI bleed. Some hemolyzed blood noted in the terminal ileum may be related to backwash from colonic bleed. Surgery consult ordered. Current Visit: Yes Status: Acute Code(s): K92.2 - GASTROINTESTINAL HEMORRHAGE, UNSPECIFIED SNOMED Code(s): 20846607 (2) Anemia associated with acute blood loss Current Visit: No Status: Acute Code(s): D62 - ACUTE POSTHEMORRHAGIC ANEMIA SNOMED Code(s): 312634684 Plan: Supportive care Diet as tolerated Continue to monitor hemoglobin and hematocrit daily, transfuse if less than 7 Tagged red blood cell scan ordered and reviewed Antiemetics as needed Should is status post EGD and colonoscopy Surgery consult order, appreciate recommendations Patient is scheduled for right colectomy on Monday with Dr. Seaman Thank you for allowing us take part in the plan of care of your patient, we will sign off at this time. Dr. Velocci I agree with the dictator's note, documented as a scribe by Leatha Beaver.
[2020-01-24 16:47] LABS: Glucose,Whole Blood 154 mg/dL (75-99)
[2020-01-24 20:48] LABS: Glucose,Whole Blood 241 mg/dL (75-99)
[2020-01-24] MEDS: INSULIN DETEMIR (LEVEMIR) 100 UNIT/ML SYR SQ SCH (21:24)
--- NOTE | 2020-01-24 22:33 | P.PN ---
Progress Note - Text Progress Note Date: 01/24/20 Chief Complaint: Lower GI bleed History of presenting complaint: This is a 70 year patient currently at [facility] being sent by Dr. Han. Chronic stable medical conditions include CHF EF 55-60%, COPD, diabetes, fibromyalgia, hyperlipidemia, hypertension, chronic kidney disease stage III, rheumatoid arthritis, history of breast cancer with right sided mastectomy, peripheral neuropathy, chronic anxiety depression, liver cirrhosis with portal hypertension.uses a wheelchair to get about Patient was recently discharged from the hospital on December 25. admitted feeling weak tired rundown. Had 2 maroon stools in the hospital. In August of this year patient had undergone EGD and colonoscopy. Showing diverticulosis. Small bowel capsule study was also unremarkable. Source was felt to be from diverticulosis.. tagged RBC scan. Negative. Last admission patient refuses endoscopy.. Patient now presents to the [facility] as she had 3 episodes of stools with bright red blood with blood clots. Hemoglobin drawn a couple of days ago was 6.6. Patient felt weak and tired. No abdominal pain. No nausea vomiting. admitted with acute GI bleed-initially refused endoscopy. After counseling is agreed for endoscopy. EGD-unremarkable. Colonoscopy-fresh blood throughout th e colon.It is believed that the bleeding is coming from the right colon. Patient may need a partial/right colectomy.. Today-stable. No new issues. Hemoglobin is stable. Review of systems: Was done for constitutional, cardiovascular, GI, pulmonary. relevant finding as above Active Medications Acetaminophen (Acetaminophen Tab 325 Mg Tab) 650 mg PO Q4H PRN PRN Reason: Fever and/ or Pain Hydrocodone Bitart/Acetaminophen (Hydrocodone/Apap 10-325mg 1 Each Tab) 1 each PO Q6HR PRN PRN Reason: Pain Last Admin: 01/24/20 16:42 Dose: 1 each Documented by: Anastrozole (Anastrozole 1 Mg Tab) 1 mg PO DAILY@0900 [facility] Last Admin: 01/24/20 08:38 Dose: 1 mg Documented by: Artificial Tears (Artificial Tears-Hypromellose Drops 15 Ml Btl) 1 drops BOTH EYES Q12H PRN PRN Reason: Dry Eye(S)/redness Ascorbic Acid (Ascorbic Acid 500 Mg Tab) 500 mg PO DAILY@0900 [facility] Last Admin: 01/24/20 08:39 Dose: 500 mg Documented by: Azithromycin (Azithromycin 250 Mg Tab) 250 mg PO DAILY@0900 [facility] Last Admin: 01/24/20 08:38 Dose: 250 mg Documented by: Ergocalciferol (Ergocalciferol 50,000 Unit Cap) 50,000 unit PO Q14D@0900 [facility] Folic Acid (Folic Acid 1 Mg Tab) 1 mg PO DAILY@0900 [facility] Last Admin: 01/24/20 08:38 Dose: 1 mg Documented by: Gabapentin (Gabapentin 100 Mg Cap) 200 mg PO TID@0900,1500,2100 [facility] Last Admin: 01/24/20 21:24 Dose: 200 mg Documented by: Sodium Chloride (Saline 0.9%) 1,000 mls @ 20 mls/hr IV .Q24H [facility] Last Admin: 01/24/20 11:36 Dose: Not Given Documented by: Insulin Detemir (Insulin Detemir (Levemir) 100 Unit/Ml Syr) 15 unit SQ HS@2100 [facility] Last Admin: 01/24/20 21:24 Dose: 15 unit Documented by: Multivitamins (Multivitamins, Thera 1 Each Tab) 1 each PO DAILY@1500 [facility] Last Admin: 01/24/20 08:38 Dose: 1 each Documented by: Naloxone HCl (Naloxone 0.4 Mg/Ml 1 Ml Vial) 0.2 mg IV Q2M PRN PRN Reason: Opioid Reversal Ondansetron HCl (Ondansetron 4 Mg/2 Ml Vial) 4 mg IVP Q8HR PRN PRN Reason: Nausea And Vomiting Last Admin: 01/24/20 16:42 Dose: 4 mg Documented by: Ondansetron HCl (Ondansetron 4 Mg Tab) 4 mg PO TID PRN PRN Reason: Nausea And Vomiting Oxymetazoline HCl (Oxymetazoline 0.05% Nasl [place] 1 [place] Bottle) 1 spray NASAL Q15M PRN PRN Reason: BLOODY NOSE Pantoprazole Sodium (Pantoprazole 40 Mg/10 Ml Vial) 40 mg IV DAILY [facility] Last Admin: 01/24/20 08:38 Dose: 40 mg Documented by: Rifaximin (Rifaximin 550 Mg Tablet) 550 mg PO BID@0900,2100 [facility] Stop: 02/18/20 21:01 Last Admin: 01/24/20 21:35 Dose: 550 mg Documented by: Sertraline HCl (Sertraline 25 Mg Tab) 25 mg PO DAILY@0900 [facility] Last Admin: 01/24/20 08:39 Dose: 25 mg Documented by: Spironolactone (Spironolactone 25 Mg Tab) 50 mg PO DAILY@0900 [facility] Last Admin: 01/24/20 08:39 Dose: 50 mg Documented by: Thiamine HCl (Thiamine 100 Mg Tab) 100 mg PO DAILY@1500 [facility] Last Admin: 01/24/20 08:38 Dose: 100 mg Documented by: Zinc Sulfate (Zinc Sulfate 220 Mg Cap) 220 mg PO DAILY@0900 [facility] Last Admin: 01/24/20 08:38 Dose: 220 mg Documented by: Physical examination: VITAL SIGNS: 97.8, 86, 18, 130/76, 96% on 2 L GENERAL: Laying in bed, tired EYES: Pupils equal. Conjunctiva pale. NECK: JVD unable to assess; masses not palpable. HEART: First and second heart sounds are normal; mild edema. LUNGS: Respiratory rate increased; decreased breath sounds. ABDOMEN: Soft, nontender, liver spleen not palpable, no masses palpable. PSYCH: [Alert and oriented x3; mood and affect -anxious NEUROLOGICAL: Cranial nerves grossly intact; no facial asymmetry, decreased power lower extremity. Investigations: January 23: Hemoglobin 7.3 January 22: White count 2.8 hemoglobin 7.8 platelets 91 January 21: White count 3.1 hemoglobin 7.7 platelets 95 potassium 4.3 creatinine 1.26 January 20: White count 2.9 hemoglobin 7.4 platelets 73 January 19: White count 1.8 hemoglobin 6.8 platelets 73 White count 2.9 hemoglobin 6.9 platelets 113 potassium 4.8 bun 37 creatinine 1.47 Previous testing: Hemoglobin 8.3 on January 13 BUN 59 creatinine 1.58 on December 28 Assessment: -Acute lower GI bleed, felt to be from ascending colon as tagged RBC scan EGD colonoscopy results as above -Acute blood loss anemia from GI bleed,-receive 2 units of blood -Chronic congestive heart failure from diastolic dysfunction EF 55-60% -COPD in an ex-smoker -Diabetes mellitus type 2 on oral hypoglycemic -Chronic fibromyalgia -Hyperlipidemia -Essential hypertension -Chronic kidney disease stage III from diabetic nephropathy and hypertensive nephrosclerosis -Rheumatoid arthritis -History of breast cancer with a right-sided mastectomy -Peripheral neuropathy secondary to diabetes -Chronic anxiety depression -Obesity -Liver cirrhosis with portal hypertension on Xifaxan -Pancytopenia from cirrhosis -Patient has a legal guardian-Calvin Whipple Plan: Discussed with Dr. Seaman from general surgery. He'll discussed with patient's guardian. And go with possible partial/right colectomy due to recurrent bleeding.
[2020-01-25 06:10] LABS: Glucose,Whole Blood 110 mg/dL (75-99)
[2020-01-25] MEDS: HYDROcodone/APAP 10-325MG 1 EACH TAB PO PRN ×4 (06:13→23:55)
[2020-01-25] MEDS: PANTOPRAZOLE 40 MG/10 ML VIAL IV SCH (08:24)
[2020-01-25] MEDS: ZINC SULFATE 220 MG CAP PO SCH (08:28)
[2020-01-25] MEDS: MULTIVITAMINS, THERA 1 EACH TAB PO SCH (08:28)
[2020-01-25] MEDS: SPIRONOLACTONE 25 MG TAB PO SCH (08:28)
[2020-01-25] MEDS: THIAMINE 100 MG TAB PO SCH (08:28)
[2020-01-25] MEDS: GABAPENTIN 100 MG CAP PO SCH ×3 (08:28→20:50)
[2020-01-25] MEDS: FOLIC ACID 1 MG TAB PO SCH (08:28)
[2020-01-25] MEDS: SERTRALINE 25 MG TAB PO SCH (08:28)
[2020-01-25] MEDS: ASCORBIC ACID 500 MG TAB PO SCH (08:28)
[2020-01-25] MEDS: AZITHROMYCIN 250 MG TAB PO SCH (08:29)
[2020-01-25] MEDS: RIFAXIMIN 550 MG TABLET PO SCH ×2 (08:29→20:50)
[2020-01-25] MEDS: ANASTROZOLE 1 MG TAB PO SCH (08:29)
[2020-01-25] MEDS: SODIUM CHLORIDE 0.9% 1,000 ML IV SCH ×2 (08:29→23:59)
[2020-01-25 09:48] LABS: Calcium 8.3 mg/dL (8.4-10.2); Potassium 4.6 mmol/L (3.5-5.1)
[2020-01-25 10:30] LABS: HCT 24.9 % (34.0-46.0); HGB 7.6 gm/dL (11.4-16.0); Hypochromasia Marked; MCH 28.9 pg (25.0-35.0); MCHC 30.5 g/dL (31.0-37.0); MCV 94.6 fL (80.0-100.0); Mean Platelet Volume 9.2; Platelet Count 109 k/uL (150-450); Poikilocytosis Moderate; RBC 2.63 m/uL (3.80-5.40); RDW 15.4 % (11.5-15.5); WBC 3.2 k/uL (3.8-10.6)
[2020-01-25 11:50] LABS: Glucose,Whole Blood 126 mg/dL (75-99)
--- NOTE | 2020-01-25 12:23 | P.PN ---
Progress Note - Text Progress Note Date: 01/25/20 The patient remained stable. She did have another bloody bowel movement. On exam vital signs are stable. Abdomen is soft. Patient scheduled for colectomy on Monday.
[2020-01-25 14:08] LABS: Eosinophils # (M) 0.06 k/uL (0-0.7); Lymphocytes # (M) 0.48 k/uL (1.0-4.8); Monocytes # (M) 0.38 k/uL (0-1.0); Neutrophils # (M) 2.27 k/uL (1.3-7.7); Neutrophils % (M) 71 %; Nucleated Red Blood Cells 0 /100 WBC (0-0); Total Cells Counted 100
[2020-01-25 16:27] LABS: Glucose,Whole Blood 122 mg/dL (75-99)
--- NOTE | 2020-01-25 17:31 | P.PN ---
Progress Note - Text Progress Note Date: 01/25/20 Chief Complaint: Lower GI bleed History of presenting complaint: This is a 70 year patient currently at [facility] being sent by Dr. Han. Chronic stable medical conditions include CHF EF 55-60%, COPD, diabetes, fibromyalgia, hyperlipidemia, hypertension, chronic kidney disease stage III, rheumatoid arthritis, history of breast cancer with right sided mastectomy, peripheral neuropathy, chronic anxiety depression, liver cirrhosis with portal hypertension.uses a wheelchair to get about Patient was recently discharged from the hospital on December 25. admitted feeling weak tired rundown. Had 2 maroon stools in the hospital. In August of this year patient had undergone EGD and colonoscopy. Showing diverticulosis. Small bowel capsule study was also unremarkable. Source was felt to be from diverticulosis.. tagged RBC scan. Negative. Last admission patient refuses endoscopy.. Patient now presents to the [facility] as she had 3 episodes of stools with bright red blood with blood clots. Hemoglobin drawn a couple of days ago was 6.6. Patient felt weak and tired. No abdominal pain. No nausea vomiting. admitted with acute GI bleed-initially refused endoscopy. After counseling is agreed for endoscopy. EGD-unremarkable. Colonoscopy-fresh blood throughout th e colon.It is believed that the bleeding is coming from the right colon. Patient may need a partial/right colectomy.. Dr. Seaman didn't get okay from the legal guardian to proceed with surgery. Today-tolerating liquid diet. No abdominal pain. Comfortable. Review of systems: Was done for constitutional, cardiovascular, GI, pulmonary. relevant finding as above Active Medications Acetaminophen (Acetaminophen Tab 325 Mg Tab) 650 mg PO Q4H PRN PRN Reason: Fever and/ or Pain Hydrocodone Bitart/Acetaminophen (Hydrocodone/Apap 10-325mg 1 Each Tab) 1 each PO Q6HR PRN PRN Reason: Pain Last Admin: 01/25/20 12:13 Dose: 1 each Documented by: Anastrozole (Anastrozole 1 Mg Tab) 1 mg PO DAILY@0900 [facility] Last Admin: 01/25/20 08:29 Dose: 1 mg Documented by: Artificial Tears (Artificial Tears-Hypromellose Drops 15 Ml Btl) 1 drops BOTH EYES Q12H PRN PRN Reason: Dry Eye(S)/redness Ascorbic Acid (Ascorbic Acid 500 Mg Tab) 500 mg PO DAILY@0900 [facility] Last Admin: 01/25/20 08:28 Dose: 500 mg Documented by: Azithromycin (Azithromycin 250 Mg Tab) 250 mg PO DAILY@0900 [facility] Last Admin: 01/25/20 08:29 Dose: 250 mg Documented by: Ergocalciferol (Ergocalciferol 50,000 Unit Cap) 50,000 unit PO Q14D@0900 [facility] Folic Acid (Folic Acid 1 Mg Tab) 1 mg PO DAILY@0900 [facility] Last Admin: 01/25/20 08:28 Dose: 1 mg Documented by: Gabapentin (Gabapentin 100 Mg Cap) 200 mg PO TID@0900,1500,2100 [facility] Last Admin: 01/25/20 16:01 Dose: 200 mg Documented by: Sodium Chloride (Saline 0.9%) 1,000 mls @ 20 mls/hr IV .Q24H [facility] Last Admin: 01/25/20 08:29 Dose: 20 mls/hr Documented by: Insulin Detemir (Insulin Detemir (Levemir) 100 Unit/Ml Syr) 15 unit SQ HS@2100 [facility] Last Admin: 01/24/20 21:24 Dose: 15 unit Documented by: Multivitamins (Multivitamins, Thera 1 Each Tab) 1 each PO DAILY@1500 [facility] Last Admin: 01/25/20 08:28 Dose: 1 each Documented by: Naloxone HCl (Naloxone 0.4 Mg/Ml 1 Ml Vial) 0.2 mg IV Q2M PRN PRN Reason: Opioid Reversal Ondansetron HCl (Ondansetron 4 Mg/2 Ml Vial) 4 mg IVP Q8HR PRN PRN Reason: Nausea And Vomiting Last Admin: 01/24/20 16:42 Dose: 4 mg Documented by: Ondansetron HCl (Ondansetron 4 Mg Tab) 4 mg PO TID PRN PRN Reason: Nausea And Vomiting Oxymetazoline HCl (Oxymetazoline 0.05% Nasl [place] 1 [place] Bottle) 1 spray NASAL Q15M PRN PRN Reason: BLOODY NOSE Pantoprazole Sodium (Pantoprazole 40 Mg/10 Ml Vial) 40 mg IV DAILY [facility] Last Admin: 01/25/20 08:24 Dose: 40 mg Documented by: Rifaximin (Rifaximin 550 Mg Tablet) 550 mg PO BID@0900,2100 [facility] Stop: 02/18/20 21:01 Last Admin: 01/25/20 08:29 Dose: 550 mg Documented by: Sertraline HCl (Sertraline 25 Mg Tab) 25 mg PO DAILY@0900 [facility] Last Admin: 01/25/20 08:28 Dose: 25 mg Documented by: Spironolactone (Spironolactone 25 Mg Tab) 50 mg PO DAILY@0900 [facility] Last Admin: 01/25/20 08:28 Dose: 50 mg Documented by: Thiamine HCl (Thiamine 100 Mg Tab) 100 mg PO DAILY@1500 [facility] Last Admin: 01/25/20 08:28 Dose: 100 mg Documented by: Zinc Sulfate (Zinc Sulfate 220 Mg Cap) 220 mg PO DAILY@0900 [facility] Last Admin: 01/25/20 08:28 Dose: 220 mg Documented by: Physical examination: VITAL SIGNS: 98, 83, 18, 96 x 54, 93% room air GENERAL: Sitting on bed, comfortable EYES: Pupils equal. Conjunctiva pale. NECK: JVD unable to assess; masses not palpable. HEART: First and second heart sounds are normal; mild edema. LUNGS: Respiratory rate increased; decreased breath sounds. ABDOMEN: Soft, nontender, liver spleen not palpable, no masses palpable. PSYCH: [Alert and oriented x3; mood and affect -anxious NEUROLOGICAL: Cranial nerves grossly intact; no facial asymmetry, decreased power lower extremity. Investigations: January 24: Hemoglobin 7.6 creatinine 1.4 to January 23: Hemoglobin 7.3 January 22: White count 2.8 hemoglobin 7.8 platelets 91 January 21: White count 3.1 hemoglobin 7.7 platelets 95 potassium 4.3 creatinine 1.26 January 20: White count 2.9 hemoglobin 7.4 platelets 73 January 19: White count 1.8 hemoglobin 6.8 platelets 73 White count 2.9 hemoglobin 6.9 platelets 113 potassium 4.8 bun 37 creatinine 1.47 Previous testing: Hemoglobin 8.3 on January 13 BUN 59 creatinine 1.58 on December 28 Assessment: -Acute lower GI bleed, felt to be from ascending colon as tagged RBC scan EGD colonoscopy results as above. Pending extended right colectomy -Acute blood loss anemia from GI bleed,-receive 2 units of blood -Chronic congestive heart failure from diastolic dysfunction EF 55-60% -COPD in an ex-smoker -Diabetes mellitus type 2 on oral hypoglycemic -Chronic fibromyalgia -Hyperlipidemia -Essential hypertension -Chronic kidney disease stage III from diabetic nephropathy and hypertensive nephrosclerosis -Rheumatoid arthritis -History of breast cancer with a right-sided mastectomy -Peripheral neuropathy secondary to diabetes -Chronic anxiety depression -Obesity -Liver cirrhosis with portal hypertension on Xifaxan -Pancytopenia from cirrhosis -Patient has a legal guardian-Calvin Whipple Plan: Continue current medication treatment plan. Pending surgery Monday. Discussed with Dr. Seaman.
[2020-01-25 20:42] LABS: Glucose,Whole Blood 158 mg/dL (75-99)
[2020-01-25] MEDS: INSULIN DETEMIR (LEVEMIR) 100 UNIT/ML SYR SQ SCH (20:50)
[2020-01-25] MEDS: ONDANSETRON 4 MG TAB PO PRN (23:55)
[2020-01-26] MEDS: HYDROcodone/APAP 10-325MG 1 EACH TAB PO PRN ×4 (06:03→23:42)
[2020-01-26 06:10] LABS: Glucose,Whole Blood 96 mg/dL (75-99)
[2020-01-26 07:28] LABS: Calcium 8.1 mg/dL (8.4-10.2)
[2020-01-26 07:37] LABS: Basophils % (A) 1 %; Eosinophils # (A) 0.1 k/uL (0-0.7); Eosinophils % (A) 4 %; HCT 21.1 % (34.0-46.0); Hypochromasia Marked; Lymphocytes # (A) 0.7 k/uL (1.0-4.8); Lymphocytes % (A) 24 %; MCH 29.1 pg (25.0-35.0); MCHC 31.3 g/dL (31.0-37.0); MCV 92.9 fL (80.0-100.0); Mean Platelet Volume 9.4; Monocytes # (A) 0.3 k/uL (0-1.0); Monocytes % (A) 10 %; Neutrophils # (A) 1.6 k/uL (1.3-7.7); Neutrophils % (A) 59 %; Platelet Count 108 k/uL (150-450); Poikilocytosis Moderate; RBC 2.28 m/uL (3.80-5.40); RDW 15.7 % (11.5-15.5); WBC 2.7 k/uL (3.8-10.6)
[2020-01-26 07:44] LABS: HGB 6.6 gm/dL (11.4-16.0)
[2020-01-26] MEDS: PANTOPRAZOLE 40 MG/10 ML VIAL IV SCH (09:05)
[2020-01-26] MEDS: ZINC SULFATE 220 MG CAP PO SCH (09:05)
[2020-01-26] MEDS: RIFAXIMIN 550 MG TABLET PO SCH ×2 (09:05→20:41)
[2020-01-26] MEDS: SPIRONOLACTONE 25 MG TAB PO SCH (09:05)
[2020-01-26] MEDS: GABAPENTIN 100 MG CAP PO SCH ×3 (09:05→20:41)
[2020-01-26] MEDS: MULTIVITAMINS, THERA 1 EACH TAB PO SCH (09:06)
[2020-01-26] MEDS: ASCORBIC ACID 500 MG TAB PO SCH (09:06)
[2020-01-26] MEDS: SERTRALINE 25 MG TAB PO SCH (09:06)
[2020-01-26] MEDS: FOLIC ACID 1 MG TAB PO SCH (09:06)
[2020-01-26] MEDS: ANASTROZOLE 1 MG TAB PO SCH (09:06)
[2020-01-26] MEDS: THIAMINE 100 MG TAB PO SCH (09:06)
[2020-01-26] MEDS: AZITHROMYCIN 250 MG TAB PO SCH (09:06)
[2020-01-26] MEDS: ONDANSETRON 4 MG/2 ML VIAL IVP PRN ×2 (10:23→17:31)
[2020-01-26] MEDS ORDERED: PEG 3350-NA SULF,BICARB,CL/KCL 4,000 ML BOTTLE PO ONE (10:30)
--- NOTE | 2020-01-26 11:33 | P.PN ---
Progress Note - Text Progress Note Date: 01/26/20 Patient's he will was 6.6 this morning. On exam vital signs are stable. Abdomen soft. Lower GI bleed. Patient scheduled for right colectomy in the a.m. She'll see bowel prep today. She is receiving 1 unit of packed red cells.
[2020-01-26 11:56] LABS: Glucose,Whole Blood 157 mg/dL (75-99)
[2020-01-26 16:50] LABS: Glucose,Whole Blood 131 mg/dL (75-99)
--- NOTE | 2020-01-26 17:03 | P.PN ---
Progress Note - Text Progress Note Date: 01/26/20 Chief Complaint: Lower GI bleed History of presenting complaint: This is a 70 year patient currently at [facility] being sent by Dr. Han. Chronic stable medical conditions include CHF EF 55-60%, COPD, diabetes, fibromyalgia, hyperlipidemia, hypertension, chronic kidney disease stage III, rheumatoid arthritis, history of breast cancer with right sided mastectomy, peripheral neuropathy, chronic anxiety depression, liver cirrhosis with portal hypertension.uses a wheelchair to get about Patient was recently discharged from the hospital on December 25. admitted feeling weak tired rundown. Had 2 maroon stools in the hospital. In August of this year patient had undergone EGD and colonoscopy. Showing diverticulosis. Small bowel capsule study was also unremarkable. Source was felt to be from diverticulosis.. tagged RBC scan. Negative. Last admission patient refuses endoscopy.. Patient now presents to the [facility] as she had 3 episodes of stools with bright red blood with blood clots. Hemoglobin drawn a couple of days ago was 6.6. Patient felt weak and tired. No abdominal pain. No nausea vomiting. admitted with acute GI bleed-initially refused endoscopy. After counseling is agreed for endoscopy. EGD-unremarkable. Colonoscopy-fresh blood throughout th e colon.It is believed that the bleeding is coming from the right colon. Patient may need a partial/right colectomy.. Dr. Seaman didn't get okay from the legal guardian to proceed with surgery. Today-on liquid diet. Comfortable. Possibly had some more bleeding. Pending surgery. Hemoglobin dropped to 6.6 Review of systems: Was done for constitutional, cardiovascular, GI, pulmonary. relevant finding as above Active Medications Acetaminophen (Acetaminophen Tab 325 Mg Tab) 650 mg PO Q4H PRN PRN Reason: Fever and/ or Pain Hydrocodone Bitart/Acetaminophen (Hydrocodone/Apap 10-325mg 1 Each Tab) 1 each PO Q6HR PRN PRN Reason: Pain Last Admin: 01/26/20 12:04 Dose: 1 each Documented by: Anastrozole (Anastrozole 1 Mg Tab) 1 mg PO DAILY@0900 [facility] Last Admin: 01/26/20 09:06 Dose: 1 mg Documented by: Artificial Tears (Artificial Tears-Hypromellose Drops 15 Ml Btl) 1 drops BOTH EYES Q12H PRN PRN Reason: Dry Eye(S)/redness Ascorbic Acid (Ascorbic Acid 500 Mg Tab) 500 mg PO DAILY@0900 [facility] Last Admin: 01/26/20 09:06 Dose: 500 mg Documented by: Azithromycin (Azithromycin 250 Mg Tab) 250 mg PO DAILY@0900 [facility] Last Admin: 01/26/20 09:06 Dose: 250 mg Documented by: Ergocalciferol (Ergocalciferol 50,000 Unit Cap) 50,000 unit PO Q14D@0900 [facility] Folic Acid (Folic Acid 1 Mg Tab) 1 mg PO DAILY@0900 [facility] Last Admin: 01/26/20 09:06 Dose: 1 mg Documented by: Gabapentin (Gabapentin 100 Mg Cap) 200 mg PO TID@0900,1500,2100 [facility] Last Admin: 01/26/20 14:05 Dose: 200 mg Documented by: Sodium Chloride (Saline 0.9%) 1,000 mls @ 20 mls/hr IV .Q24H [facility] Last Admin: 01/25/20 23:59 Dose: 20 mls/hr Documented by: Insulin Detemir (Insulin Detemir (Levemir) 100 Unit/Ml Syr) 15 unit SQ HS@2100 [facility] Last Admin: 01/25/20 20:50 Dose: 15 unit Documented by: Multivitamins (Multivitamins, Thera 1 Each Tab) 1 each PO DAILY@1500 [facility] Last Admin: 01/26/20 09:06 Dose: 1 each Documented by: Naloxone HCl (Naloxone 0.4 Mg/Ml 1 Ml Vial) 0.2 mg IV Q2M PRN PRN Reason: Opioid Reversal Ondansetron HCl (Ondansetron 4 Mg/2 Ml Vial) 4 mg IVP Q8HR PRN PRN Reason: Nausea And Vomiting Last Admin: 01/26/20 10:23 Dose: 4 mg Documented by: Ondansetron HCl (Ondansetron 4 Mg Tab) 4 mg PO TID PRN PRN Reason: Nausea And Vomiting Last Admin: 01/25/20 23:55 Dose: 4 mg Documented by: Oxymetazoline HCl (Oxymetazoline 0.05% Nasl [place] 1 [place] Bottle) 1 spray NASAL Q15M PRN PRN Reason: BLOODY NOSE Pantoprazole Sodium (Pantoprazole 40 Mg/10 Ml Vial) 40 mg IV DAILY [facility] Last Admin: 01/26/20 09:05 Dose: 40 mg Documented by: Rifaximin (Rifaximin 550 Mg Tablet) 550 mg PO BID@0900,2100 [facility] Stop: 02/18/20 21:01 Last Admin: 01/26/20 09:05 Dose: 550 mg Documented by: Sertraline HCl (Sertraline 25 Mg Tab) 25 mg PO DAILY@0900 [facility] Last Admin: 01/26/20 09:06 Dose: 25 mg Documented by: Spironolactone (Spironolactone 25 Mg Tab) 50 mg PO DAILY@09 [facility] Last Admin: 01/26/20 09:05 Dose: 50 mg Documented by: Thiamine HCl (Thiamine 100 Mg Tab) 100 mg PO DAILY@1500 [facility] Last Admin: 01/26/20 09:06 Dose: 100 mg Documented by: Zinc Sulfate (Zinc Sulfate 220 Mg Cap) 220 mg PO DAILY@09 [facility] Last Admin: 01/26/20 09:05 Dose: 220 mg Documented by: Physical examination: VITAL SIGNS: 97.8, 72, 16, 109/68, 95% room air GENERAL: Sitting on bed, comfortable EYES: Pupils equal. Conjunctiva pale. NECK: JVD unable to assess; masses not palpable. HEART: First and second heart sounds are normal; mild edema. LUNGS: Respiratory rate increased; decreased breath sounds. ABDOMEN: Soft, nontender, liver spleen not palpable, no masses palpable. PSYCH: [Alert and oriented x3; mood and affect -anxious NEUROLOGICAL: Cranial nerves grossly intact; no facial asymmetry, decreased power lower extremity. Investigations: January 25: White count 2.7 hemoglobin 6.6 platelets 108 potassium 5 creatinine 1.65 January 24: Hemoglobin 7.6 creatinine 1.4 to January 23: Hemoglobin 7.3 January 22: White count 2.8 hemoglobin 7.8 platelets 91 January 21: White count 3.1 hemoglobin 7.7 platelets 95 potassium 4.3 creatinine 1.26 January 20: White count 2.9 hemoglobin 7.4 platelets 73 January 19: White count 1.8 hemoglobin 6.8 platelets 73 White count 2.9 hemoglobin 6.9 platelets 113 potassium 4.8 bun 37 creatinine 1.47 Previous testing: Hemoglobin 8.3 on January 13 BUN 59 creatinine 1.58 on December 28 Assessment: -Acute lower GI bleed, felt to be from ascending colon as tagged RBC scan EGD colonoscopy results as above. Pending extended right colectomy -Acute blood loss anemia from GI bleed,-receive 2 units of blood. Hemoglobin dropped again to 6.6 -Chronic congestive heart failure from diastolic dysfunction EF 55-60% -COPD in an ex-smoker -Diabetes mellitus type 2 on oral hypoglycemic -Chronic fibromyalgia -Hyperlipidemia -Essential hypertension -Chronic kidney disease stage III from diabetic nephropathy and hypertensive nephrosclerosis -Rheumatoid arthritis -History of breast cancer with a right-sided mastectomy -Peripheral neuropathy secondary to diabetes -Chronic anxiety depression -Obesity -Liver cirrhosis with portal hypertension on Xifaxan -Pancytopenia from cirrhosis -Patient has a legal guardian-Calvin Whipple Plan: Transfuse another unit of blood. Other medications to continue. Follow H&H. Decrease Lantus to 10 units tonight..
[2020-01-26 20:26] LABS: Glucose,Whole Blood 121 mg/dL (75-99)
[2020-01-26 21:45] LABS: Basophils % (A) 1 %; Eosinophils # (A) 0.1 k/uL (0-0.7); Eosinophils % (A) 3 %; HCT 27.7 % (34.0-46.0); Hypochromasia Marked; Lymphocytes % (A) 22 %; MCH 28.5 pg (25.0-35.0); MCHC 30.3 g/dL (31.0-37.0); MCV 93.9 fL (80.0-100.0); Mean Platelet Volume 9.1; Monocytes # (A) 0.4 k/uL (0-1.0); Monocytes % (A) 10 %; Neutrophils # (A) 2.8 k/uL (1.3-7.7); Neutrophils % (A) 62 %; Platelet Count 126 k/uL (150-450); Poikilocytosis Moderate; RBC 2.95 m/uL (3.80-5.40); RDW 15.3 % (11.5-15.5); WBC 4.4 k/uL (3.8-10.6)
[2020-01-26 21:47] LABS: HGB 8.4 gm/dL (11.4-16.0)
[2020-01-26] MEDS: ONDANSETRON 4 MG TAB PO PRN (23:42)
[2020-01-27] MEDS: ONDANSETRON 4 MG/2 ML VIAL IVP PRN (05:51)
[2020-01-27 06:06] LABS: Glucose,Whole Blood 113 mg/dL (75-99)
[2020-01-27 07:56] LABS: Calcium 7.9 mg/dL (8.4-10.2)
[2020-01-27 08:01] LABS: Potassium 5.8 mmol/L (3.5-5.1)
[2020-01-27] MEDS: HYDROcodone/APAP 10-325MG 1 EACH TAB PO PRN ×2 (09:30→20:35)
[2020-01-27 11:19] LABS: Basophils % (A) 1 %; Eosinophils # (A) 0.1 k/uL (0-0.7); Eosinophils % (A) 3 %; HCT 25.9 % (34.0-46.0); HGB 8.1 gm/dL (11.4-16.0); Hypochromasia Marked; Lymphocytes # (A) 0.7 k/uL (1.0-4.8); Lymphocytes % (A) 20 %; MCH 28.3 pg (25.0-35.0); MCHC 31.4 g/dL (31.0-37.0); MCV 90.3 fL (80.0-100.0); Mean Platelet Volume 8.9; Monocytes # (A) 0.5 k/uL (0-1.0); Monocytes % (A) 14 %; Neutrophils % (A) 60 %; Platelet Count 125 k/uL (150-450); Poikilocytosis Marked; RBC 2.87 m/uL (3.80-5.40); RDW 15.7 % (11.5-15.5); WBC 3.3 k/uL (3.8-10.6)
[2020-01-27 11:35] LABS: Glucose,Whole Blood 94 mg/dL (75-99)
[2020-01-27] MEDS ORDERED: LIDOCAINE 1% INJ 10MG/ML (20 ML MDV) ONE (11:54)
[2020-01-27] MEDS ORDERED: HYDROmorphone (PF) 1 MG/ML ONE (11:54)
[2020-01-27] MEDS ORDERED: fentaNYL (PF) 50 MCG/ML 2 ML AMP ONE (11:54)
[2020-01-27] MEDS ORDERED: ROCURONIUM 10 MG/ML (10 ML VIAL) IV ONE (11:54)
[2020-01-27] MEDS ORDERED: NEOSTIGMINE 1 MG/ML 10 ML VIAL ONE (11:54)
[2020-01-27] MEDS ORDERED: ONDANSETRON 4 MG/2 ML VIAL ONE (11:54)
[2020-01-27] MEDS ORDERED: GLYCOPYRROLATE 0.2 MG/ML 2 ML VIAL ONE (11:54)
[2020-01-27] MEDS ORDERED: MIDAZOLAM 2 MG/2 ML VIAL ONE (11:54)
[2020-01-27] MEDS ORDERED: PHENYLEPHRINE 10 MG/ML VIAL ONE (11:54)
[2020-01-27] MEDS ORDERED: PROPOFOL 10 MG/ML 20 ML VIAL IV ONE (11:54)
[2020-01-27] MEDS ORDERED: SUCCINYLCHOLINE CHLORIDE VIAL 200 MG/10 ML VIAL IV ONE (11:54)
[2020-01-27] MEDS ORDERED: SODIUM CHLORIDE 0.9% 1,000 ML IV ONE (11:59)
[2020-01-27] MEDS ORDERED: CLINDAMYCIN 150 MG/ML 4 ML VIAL IVPB ONE (12:12)
[2020-01-27] MEDS ORDERED: LACTATED RINGERS 1,000 ML IV ONE ×2 (12:35→13:50)
[2020-01-27] MEDS: SODIUM CHLORIDE 0.9% 1,000 ML IV SCH (14:14)
[2020-01-27] MEDS: GABAPENTIN 100 MG CAP PO SCH ×3 (14:14→20:35)
[2020-01-27] MEDS: D5-0.45% NACL WITH KCL 20MEQ/L 1,000 ML IV SCH ×2 (14:14→17:00)
[2020-01-27] MEDS: MULTIVITAMINS, THERA 1 EACH TAB PO SCH (14:20)
[2020-01-27] MEDS: AZITHROMYCIN 250 MG TAB PO SCH (14:20)
[2020-01-27] MEDS: ASCORBIC ACID 500 MG TAB PO SCH (14:20)
[2020-01-27] MEDS: ANASTROZOLE 1 MG TAB PO SCH ×2 (14:20→14:21)
[2020-01-27] MEDS: SERTRALINE 25 MG TAB PO SCH (14:20)
[2020-01-27] MEDS: FOLIC ACID 1 MG TAB PO SCH (14:20)
[2020-01-27] MEDS: ZINC SULFATE 220 MG CAP PO SCH (14:20)
[2020-01-27] MEDS: PANTOPRAZOLE 40 MG/10 ML VIAL IV SCH (14:21)
[2020-01-27] MEDS: SPIRONOLACTONE 25 MG TAB PO SCH (14:21)
--- NOTE | 2020-01-27 16:03 | P.OP ---
Date of Procedure: 01/27/20 Preoperative Diagnosis: GI bleed Postoperative Diagnosis: GI bleed Incarcerated ventral hernia Procedure(s) Performed: Right colectomy Repair of incisional hernia Partial omentectomy Anesthesia: KUNAL Surgeon: Virgilio Seaman Estimated Blood Loss (ml): 200 Pathology: other (Omentum, right colon) Condition: stable Disposition: PACU Description of Procedure: The patient's placed on the operative table in supine position. He received general anesthesia. The abdomen was prepped and draped usual fashion. The abdomen was entered through midline incision. There is incarcerated ventral hernia located near the umbilicus. The hernia measured approximately 5 cm diameter. There is incarcerated omentum within the hernia. The omentum was then transected with the Enseal device and sent to pathology. The fascial defect was then opened. The Bookwalter placed a wound. At this point the right colon was mobilized by dividing the white line of [place]. And then the terminal ileum was transected with a GI stapler. The mesentery of the right colon was then divided using into the device. The hepatic flexure was taken down with a large cautery and sharp dissection and then the transverse colon was mobilized. The omentum was divided off of the colon. And then the mesentery of the transverse colon was divided using into the device. The transverse colon was transected using the KANNAN stapler. The specimens of pathology. Satisfied functional end-to-end staple anastomosis created with the KANNAN and TA stapler. 3-0 GI silk sutures using a crotch stitch. There was areas of bleeding seen. The fascia was closed with looped #1 PDS suture. Fascial closure repaired the ventral hernia. Skin was closed after patient top she will was sent to recovery room stable condition
[2020-01-27 16:57] LABS: Glucose,Whole Blood 158 mg/dL (75-99)
[2020-01-27] MEDS: KETOROLAC 15 MG/ML 1 ML VIAL IVP PRN ×2 (17:00→23:24)
[2020-01-27 20:25] LABS: Glucose,Whole Blood 145 mg/dL (75-99)
--- NOTE | 2020-01-27 20:32 | P.PN ---
Progress Note - Text Progress Note Date: 01/27/20 Chief Complaint: Lower GI bleed History of presenting complaint: This is a 70 year patient currently at [facility] being sent by Dr. Han. Chronic stable medical conditions include CHF EF 55-60%, COPD, diabetes, fibromyalgia, hyperlipidemia, hypertension, chronic kidney disease stage III, rheumatoid arthritis, history of breast cancer with right sided mastectomy, peripheral neuropathy, chronic anxiety depression, liver cirrhosis with portal hypertension.uses a wheelchair to get about Patient was recently discharged from the hospital on December 25. admitted feeling weak tired rundown. Had 2 maroon stools in the hospital. In August of this year patient had undergone EGD and colonoscopy. Showing diverticulosis. Small bowel capsule study was also unremarkable. Source was felt to be from diverticulosis.. tagged RBC scan. Negative. Last admission patient refuses endoscopy.. Patient now presents to the [facility] as she had 3 episodes of stools with bright red blood with blood clots. Hemoglobin drawn a couple of days ago was 6.6. Patient felt weak and tired. No abdominal pain. No nausea vomiting. admitted with acute GI bleed-initially refused endoscopy. After counseling is agreed for endoscopy. EGD-unremarkable. Colonoscopy-fresh blood throughout th e colon.It is believed that the bleeding is coming from the right colon. Patient may need a partial/right colectomy.. Dr. Seaman didn't get okay from the legal guardian to proceed with surgery. Today--patient underwent-right colectomy, repair of incisional hernia, partial omentectomy. Postprocedure laying in bed. Tired. Abdominal binder in place. Review of systems: Was done for constitutional, cardiovascular, GI, pulmonary. relevant finding as above Active Medications Acetaminophen (Acetaminophen Tab 325 Mg Tab) 650 mg PO Q4H PRN PRN Reason: Fever and/ or Pain Hydrocodone Bitart/Acetaminophen (Hydrocodone/Apap 10-325mg 1 Each Tab) 1 each PO Q6HR PRN PRN Reason: Pain Last Admin: 01/27/20 09:30 Dose: 1 each Documented by: Alvimopan (Alvimopan 12 Mg Capsule) 12 mg PO BID [facility] Stop: 02/03/20 21:01 Anastrozole (Anastrozole 1 Mg Tab) 1 mg PO DAILY@0900 [facility] Last Admin: 01/27/20 14:21 Dose: 1 mg Documented by: Artificial Tears (Artificial Tears-Hypromellose Drops 15 Ml Btl) 1 drops BOTH EYES Q12H PRN PRN Reason: Dry Eye(S)/redness Ascorbic Acid (Ascorbic Acid 500 Mg Tab) 500 mg PO DAILY@0900 [facility] Last Admin: 01/27/20 14:20 Dose: 500 mg Documented by: Ergocalciferol (Ergocalciferol 50,000 Unit Cap) 50,000 unit PO Q14D@0900 [facility] Folic Acid (Folic Acid 1 Mg Tab) 1 mg PO DAILY@0900 [facility] Last Admin: 01/27/20 14:20 Dose: 1 mg Documented by: Gabapentin (Gabapentin 100 Mg Cap) 200 mg PO TID@0900,1500,2100 [facility] Last Admin: 01/27/20 14:20 Dose: 200 mg Documented by: Sodium Chloride (Saline 0.9%) 1,000 mls @ 20 mls/hr IV .Q24H [facility] Last Admin: 01/27/20 14:14 Dose: Not Given Documented by: Potassium Chloride/Dextrose/Sod Cl (D5%-1/2ns-Kcl 20 Meq/L Iv Solution) 1,000 mls @ 125 mls/hr IV .Q8H [facility] Last Admin: 01/27/20 17:00 Dose: 125 mls/hr Documented by: Ketorolac Tromethamine (Ketorolac 15 Mg/Ml 1 Ml Vial) 15 mg IVP Q6HR PRN PRN Reason: Mild to Moderate Pain Stop: 01/29/20 13:57 Last Admin: 01/27/20 17:00 Dose: 15 mg Documented by: Multivitamins (Multivitamins, Thera 1 Each Tab) 1 each PO DAILY@1500 [facility] Last Admin: 01/27/20 14:20 Dose: 1 each Documented by: Naloxone HCl (Naloxone 0.4 Mg/Ml 1 Ml Vial) 0.2 mg IV Q2M PRN PRN Reason: Opioid Reversal Ondansetron HCl (Ondansetron 4 Mg/2 Ml Vial) 4 mg IVP Q8HR PRN PRN Reason: Nausea And Vomiting Last Admin: 01/27/20 05:51 Dose: 4 mg Documented by: Ondansetron HCl (Ondansetron 4 Mg Tab) 4 mg PO TID PRN PRN Reason: Nausea And Vomiting Last Admin: 01/26/20 23:42 Dose: 4 mg Documented by: Oxymetazoline HCl (Oxymetazoline 0.05% Nasl [place] 1 [place] Bottle) 1 spray NASAL Q15M PRN PRN Reason: BLOODY NOSE Pantoprazole Sodium (Pantoprazole 40 Mg/10 Ml Vial) 40 mg IV DAILY [facility] Last Admin: 01/27/20 14:21 Dose: Not Given Documented by: Sertraline HCl (Sertraline 25 Mg Tab) 25 mg PO DAILY@0900 [facility] Last Admin: 01/27/20 14:20 Dose: 25 mg Documented by: Spironolactone (Spironolactone 25 Mg Tab) 50 mg PO DAILY@0900 [facility] Last Admin: 01/27/20 14:21 Dose: 50 mg Documented by: Thiamine HCl (Thiamine 100 Mg Tab) 100 mg PO DAILY@1500 [facility] Last Admin: 01/26/20 09:06 Dose: 100 mg Documented by: Zinc Sulfate (Zinc Sulfate 220 Mg Cap) 220 mg PO DAILY@0900 [facility] Last Admin: 01/27/20 14:20 Dose: 220 mg Documented by: Physical examination: VITAL SIGNS: 97.1, 75, 18, 116/58, 98% room air GENERAL: Laying in bed, tired EYES: Pupils equal. Conjunctiva pale. NECK: JVD unable to assess; masses not palpable. HEART: First and second heart sounds are normal; mild edema. LUNGS: Respiratory rate increased; decreased breath sounds. ABDOMEN: Abdominal binder in place, tender. PSYCH: [Tired but arousable NEUROLOGICAL: Cranial nerves grossly intact; no facial asymmetry, decreased power lower extremity. Investigations: January 26: White count 3.3 hemoglobin 8.1 platelets 125 January 25: White count 2.7 hemoglobin 6.6 platelets 108 potassium 5 creatinine 1.65 January 24: Hemoglobin 7.6 creatinine 1.4 to January 23: Hemoglobin 7.3 January 22: White count 2.8 hemoglobin 7.8 platelets 91 January 21: White count 3.1 hemoglobin 7.7 platelets 95 potassium 4.3 creatinine 1.26 January 20: White count 2.9 hemoglobin 7.4 platelets 73 January 7: White count 1.8 hemoglobin 6.8 platelets 73 White count 2.9 hemoglobin 6.9 platelets 113 potassium 4.8 bun 37 creatinine 1.47 Previous testing: Hemoglobin 8.3 on January 13 BUN 59 creatinine 1.58 on December 28 Assessment: -Acute lower GI bleed, felt to be from ascending colon as tagged RBC scan EGD colonoscopy results as above. Pending extended right colectomy -right colectomy, repair of incisional hernia, partial omentectomy. -Acute blood loss anemia from GI bleed,-receive a total of 4 units of blood -Chronic congestive heart failure from diastolic dysfunction EF 55-60% -COPD in an ex-smoker -Diabetes mellitus type 2 on oral hypoglycemic -Chronic fibromyalgia -Hyperlipidemia -Essential hypertension -Chronic kidney disease stage III from diabetic nephropathy and hypertensive nephrosclerosis -Rheumatoid arthritis -History of breast cancer with a right-sided mastectomy -Peripheral neuropathy secondary to diabetes -Chronic anxiety depression -Obesity -Liver cirrhosis with portal hypertension on Xifaxan -Pancytopenia from cirrhosis -Patient has a legal guardian-Calvin Whipple Plan: Continue current medication treatment plan. Repeat labs in the morning. D iscussed with the patient.
[2020-01-28] MEDS: HYDROcodone/APAP 10-325MG 1 EACH TAB PO PRN ×2 (03:00→08:44)
[2020-01-28] MEDS: KETOROLAC 15 MG/ML 1 ML VIAL IVP PRN (05:19)
[2020-01-28 06:08] LABS: Glucose,Whole Blood 121 mg/dL (75-99)
[2020-01-28] MEDS: THIAMINE 100 MG TAB PO SCH (08:44)
[2020-01-28] MEDS: MULTIVITAMINS, THERA 1 EACH TAB PO SCH (08:44)
[2020-01-28] MEDS: FOLIC ACID 1 MG TAB PO SCH (08:44)
[2020-01-28] MEDS: ASCORBIC ACID 500 MG TAB PO SCH (08:44)
[2020-01-28] MEDS: GABAPENTIN 100 MG CAP PO SCH ×3 (08:44→20:52)
[2020-01-28] MEDS: ZINC SULFATE 220 MG CAP PO SCH (08:44)
[2020-01-28] MEDS: SPIRONOLACTONE 25 MG TAB PO SCH (08:44)
[2020-01-28] MEDS: PANTOPRAZOLE 40 MG/10 ML VIAL IV SCH (08:45)
[2020-01-28] MEDS: SERTRALINE 25 MG TAB PO SCH (08:45)
[2020-01-28] MEDS: D5-0.45% NACL WITH KCL 20MEQ/L 1,000 ML IV SCH (08:46)
[2020-01-28] MEDS: ALVIMOPAN 12 MG CAPSULE PO SCH ×2 (08:46→20:52)
[2020-01-28] MEDS: ANASTROZOLE 1 MG TAB PO SCH (08:46)
--- NOTE | 2020-01-28 10:58 | CDI ---
Documentation Clarification Form Date: 01/28/2020 09:58:07 AM From: Shruti Metcalf RN, CCDS Admit Date: 01/19/2020 02:00:00 PM Patient Name: Tawny Zuniga Visit Number: [id number] Discharge Date: ATTENTION: The Clinical Documentation Specialists (CDI) and [facility] Coding Staff appreciate your assistance in clarifying documentation. Please respond to the clarification below the line at the bottom and electronically sign. The CDI & [facility] Coding staff will review the response and follow-up if needed. Please note: Queries are made part of the Legal Health Record. If you have any questions, please contact the author of this message via ITS. Dr. Guy Griffith COVID-19 is documented in the medical record as found in ED clinical impression on 01/18 and GI progress note on 01/22/20. Clinical indicators: 70-year-old female present to ED on 01/18 with abnormal labs, with history of GI bleed and 3 episodes of loose stool containing bright red blood with clots. She denied any current cough, congestion, fever or shortness of breath. She did test positive for COVID at [facility] on the [place] on 01/13/20, per ED documentation. 01/21/20 Coronavirus (PCR) Detected Treatment: ED Isolation precautions (01/18 Please provide additional documentation in the patients medical record in the progress note supportive of the documented diagnosis of COVID-19. COVID-19 was evident/ruled in because: rapid wood virus test detected from lab report on 01/21/20. Other explanation of clinical findings (please specify) Clinically unable to provide additional clarity regarding the diagnosis of COVID-19 Unknown (Last Revision: May 2017) Coronavirus PCr-detected on 01/21/2020 MTDD
[2020-01-28 11:39] LABS: Glucose,Whole Blood 135 mg/dL (75-99)
[2020-01-28 12:02] LABS: Calcium 8.2 mg/dL (8.4-10.2); Potassium 5.3 mmol/L (3.5-5.1)
[2020-01-28 12:16] LABS: Basophils % (A) 1 %; Eosinophils # (A) 0.1 k/uL (0-0.7); Eosinophils % (A) 1 %; HCT 25.1 % (34.0-46.0); HGB 8.2 gm/dL (11.4-16.0); Hypochromasia Marked; Lymphocytes # (A) 0.7 k/uL (1.0-4.8); Lymphocytes % (A) 12 %; MCH 29.6 pg (25.0-35.0); MCHC 32.4 g/dL (31.0-37.0); MCV 91.3 fL (80.0-100.0); Mean Platelet Volume 10.1; Monocytes # (A) 0.7 k/uL (0-1.0); Monocytes % (A) 11 %; Neutrophils # (A) 4.5 k/uL (1.3-7.7); Neutrophils % (A) 74 %; Platelet Count 155 k/uL (150-450); Poikilocytosis Marked; RBC 2.75 m/uL (3.80-5.40); RDW 15.8 % (11.5-15.5); WBC 6.1 k/uL (3.8-10.6)
--- NOTE | 2020-01-28 13:24 | P.PN ---
Subjective Progress Note Date: 01/28/20 CHIEF COMPLAINT: GI bleed HISTORY OF PRESENT ILLNESS: Patient is postop day #1 status post right colectom y, repair of incisional hernia and partial omentectomy for GI bleed and incarcerated ventral hernia. Patient had reported abdominal pain and nausea. She's currently on a clear liquid diet. Afebrile. WBC 6.1 hemoglobin 8.2 potassium 5.3 creatinine 1.81 PHYSICAL EXAM: VITAL SIGNS: Reviewed. GENERAL: Well-developed in no acute distress. HEENT: No sclera icterus. Extraocular movements grossly intact. Moist buccal mucosa. Head is atraumatic, normocephalic. ABDOMEN: Soft. Nondistended. Dressing has a small air saturation NEUROLOGIC: Alert and oriented. Cranial nerves II through XII grossly intact. ASSESSMENT: 1. Acute GI bleed status post right colectomy 2. Incisional hernia status post repair 3. Acute blood loss anemia secondary to GI bleed 4. Diabetes mellitus type 2 5. Chronic kidney disease 6. History of liver cirrhosis with portal hypertension 7. Hyperkalemia 8. COVID positive PLAN: -Continue clear liquid diet -Discontinue Toradol due to the hyperkalemia and elevated creatinine -Change IV fluids to normal saline 125 mL per hour due to hyperkalemia Physician Senior Trainer note has been reviewed by physician. Signing provider agrees with the documented findings, assessment, and plan of care. Objective - Vital Signs Vital signs: Vital Signs Temp 97.6 F 01/28/20 08:00 Pulse 83 01/28/20 12:00 Resp 19 01/28/20 12:00 BP 110/55 01/28/20 12:00 Pulse Ox 95 01/28/20 12:00 Intake & Output 01/27/20 01/28/20 01/28/20 18:59 06:59 18:59 Intake Total 1400 500 Output Total 420 300 0 Balance 980 200 0 Intake: IV 1400 Intake, IV Titration 450 Amount D5-0.45% NaCl with KCl 450 20Meq/l 1,000 ml @ 125 mls/hr IV .Q8H ROS Rx#: [id number] Oral 50 Output: Urine 120 300 Stool 0 0 0 Estimated Blood Loss 300 Other: Voiding Method Bedpan Incontinent Incontinent Incontinent Indwelling Catheter Indwelling Catheter # Voids 0 # Bowel Movements 2 - Labs CBC & Chem 7: 01/28/20 10:27 01/28/20 10:27 Labs: Abnormal Lab Results - Last 24 Hours (Table) 01/27/20 01/27/20 01/28/20 Range/Units 16:55 20:24 06:06 RBC (3.80-5.40) m/uL Hgb (11.4-16.0) gm/dL Hct (34.0-46.0) % RDW (11.5-15.5) % Lymphocytes # (1.0-4.8) k/uL Sodium (137-145) mmol/L Potassium (3.5-5.1) mmol/L BUN (7-17) mg/dL Creatinine (0.52-1.04) mg/dL Glucose (74-99) mg/dL POC Glucose (mg/dL) 158 H 145 H 121 H (75-99) mg/dL Calcium (8.4-10.2) mg/dL 01/28/20 01/28/20 01/28/20 Range/Units 10:27 10:27 11:32 RBC 2.75 L (3.80-5.40) m/uL Hgb 8.2 L (11.4-16.0) gm/dL Hct 25.1 L (34.0-46.0) % RDW 15.8 H (11.5-15.5) % Lymphocytes # 0.7 L (1.0-4.8) k/uL Sodium 131 L (137-145) mmol/L Potassium 5.3 H (3.5-5.1) mmol/L BUN 21 H (7-17) mg/dL Creatinine 1.81 H (0.52-1.04) mg/dL Glucose 126 H (74-99) mg/dL POC Glucose (mg/dL) 135 H (75-99) mg/dL Calcium 8.2 L (8.4-10.2) mg/dL
[2020-01-28] MEDS: SODIUM CHLORIDE 0.9% 1,000 ML IV SCH ×3 (14:55→21:43)
[2020-01-28] MEDS: HYDROmorphone 0.5 MG/0.5 ML SYRINGE IVP PRN ×2 (15:07→20:51)
[2020-01-28 17:10] LABS: Glucose,Whole Blood 136 mg/dL (75-99)
--- NOTE | 2020-01-28 20:24 | P.PN ---
Progress Note - Text Progress Note Date: 01/28/20 Chief Complaint: Lower GI bleed History of presenting complaint: This is a 70 year patient currently at [facility] being sent by Dr. Han. Chronic stable medical conditions include CHF EF 55-60%, COPD, diabetes, fibromyalgia, hyperlipidemia, hypertension, chronic kidney disease stage III, rheumatoid arthritis, history of breast cancer with right sided mastectomy, peripheral neuropathy, chronic anxiety depression, liver cirrhosis with portal hypertension.uses a wheelchair to get about Patient was recently discharged from the hospital on December 25. admitted feeling weak tired rundown. Had 2 maroon stools in the hospital. In August of this year patient had undergone EGD and colonoscopy. Showing diverticulosis. Small bowel capsule study was also unremarkable. Source was felt to be from diverticulosis.. tagged RBC scan. Negative. Last admission patient refuses endoscopy.. Patient now presents to the [facility] as she had 3 episodes of stools with bright red blood with blood clots. Hemoglobin drawn a couple of days ago was 6.6. Patient felt weak and tired. No abdominal pain. No nausea vomiting. admitted with acute GI bleed-initially refused endoscopy. After counseling is agreed for endoscopy. EGD-unremarkable. Colonoscopy-fresh blood throughout th e colon.It is believed that the bleeding is coming from the right colon. Patient may need a partial/right colectomy.. Dr. Seaman- got okay from the legal guardian to proceed with surgery. January 2693-[id number]-ecdpi colectomy, repair of incisional hernia, partial omentectomy. Today-. On clinical liquid. Some abdominal pain. Not passing any flatus the hospital. Up in chair. Review of systems: Was done for constitutional, cardiovascular, GI, pulmonary. relevant finding as above Active Medications Acetaminophen (Acetaminophen Tab 325 Mg Tab) 650 mg PO Q4H PRN PRN Reason: Fever and/ or Pain Hydrocodone Bitart/Acetaminophen (Hydrocodone/Apap 10-325mg 1 Each Tab) 1 each PO Q6HR PRN PRN Reason: Pain Last Admin: 01/28/20 08:44 Dose: 1 each Documented by: Alvimopan (Alvimopan 12 Mg Capsule) 12 mg PO BID ROS Stop: 02/03/20 21:01 Last Admin: 01/28/20 08:46 Dose: 12 mg Documented by: Anastrozole (Anastrozole 1 Mg Tab) 1 mg PO DAILY@0900 [facility] Last Admin: 01/28/20 08:46 Dose: 1 mg Documented by: Artificial Tears (Artificial Tears-Hypromellose Drops 15 Ml Btl) 1 drops BOTH EYES Q12H PRN PRN Reason: Dry Eye(S)/redness Ascorbic Acid (Ascorbic Acid 500 Mg Tab) 500 mg PO DAILY@0900 [facility] Last Admin: 01/28/20 08:44 Dose: 500 mg Documented by: Ergocalciferol (Ergocalciferol 50,000 Unit Cap) 50,000 unit PO Q14D@0900 [facility] Folic Acid (Folic Acid 1 Mg Tab) 1 mg PO DAILY@0900 [facility] Last Admin: 01/28/20 08:44 Dose: 1 mg Documented by: Gabapentin (Gabapentin 100 Mg Cap) 200 mg PO TID@0900,1500,2100 [facility] Last Admin: 01/28/20 15:08 Dose: 200 mg Documented by: Hydromorphone HCl (Hydromorphone 0.5 Mg/0.5 Ml Syringe) 0.5 mg IVP Q4HR PRN PRN Reason: Pain Last Admin: 01/28/20 15:07 Dose: 0.5 mg Documented by: Sodium Chloride (Saline 0.9%) 1,000 mls @ 20 mls/hr IV .Q24H [facility] Last Admin: 01/28/20 14:55 Dose: Not Given Documented by: Sodium Chloride (Saline 0.9%) 1,000 mls @ 125 mls/hr IV .Q8H [facility] Last Admin: 01/28/20 15:08 Dose: 125 mls/hr Documented by: Multivitamins (Multivitamins, Thera 1 Each Tab) 1 each PO DAILY@1500 [facility] Last Admin: 01/28/20 08:44 Dose: 1 each Documented by: Naloxone HCl (Naloxone 0.4 Mg/Ml 1 Ml Vial) 0.2 mg IV Q2M PRN PRN Reason: Opioid Reversal Ondansetron HCl (Ondansetron 4 Mg/2 Ml Vial) 4 mg IVP Q8HR PRN PRN Reason: Nausea And Vomiting Last Admin: 01/27/20 05:51 Dose: 4 mg Documented by: Ondansetron HCl (Ondansetron 4 Mg Tab) 4 mg PO TID PRN PRN Reason: Nausea And Vomiting Last Admin: 01/26/20 23:42 Dose: 4 mg Documented by: Oxymetazoline HCl (Oxymetazoline 0.05% Nasl [place] 1 [place] Bottle) 1 spray NASAL Q15M PRN PRN Reason: BLOODY NOSE Pantoprazole Sodium (Pantoprazole 40 Mg/10 Ml Vial) 40 mg IV DAILY [facility] Last Admin: 01/28/20 08:45 Dose: 40 mg Documented by: Sertraline HCl (Sertraline 25 Mg Tab) 25 mg PO DAILY@0900 [facility] Last Admin: 01/28/20 08:45 Dose: 25 mg Documented by: Spironolactone (Spironolactone 25 Mg Tab) 50 mg PO DAILY@0900 [facility] Last Admin: 01/28/20 08:44 Dose: 50 mg Documented by: Thiamine HCl (Thiamine 100 Mg Tab) 100 mg PO DAILY@1500 [facility] Last Admin: 01/28/20 08:44 Dose: 100 mg Documented by: Zinc Sulfate (Zinc Sulfate 220 Mg Cap) 220 mg PO DAILY@0900 [facility] Last Admin: 01/28/20 08:44 Dose: 220 mg Documented by: Physical examination: VITAL SIGNS: 97.6, 71, 19, 110 x 55, 95% 2 L GENERAL: Sitting up, awake EYES: Pupils equal. Conjunctiva pale. NECK: JVD unable to assess; masses not palpable. HEART: First and second heart sounds are normal; mild edema. LUNGS: Respiratory rate increased; decreased breath sounds. ABDOMEN: Abdominal binder in place, tender. PSYCH: Awake, answering questions NEUROLOGICAL: Cranial nerves grossly intact; no facial asymmetry, decreased power lower extremity. Investigations: January 18: hemoglobin 8.2 potassium 5.3 rate and 1.81 January 26: White count 3.3 hemoglobin 8.1 platelets 125 January 25: White count 2.7 hemoglobin 6.6 platelets 108 potassium 5 creatinine 1.65 January 24: Hemoglobin 7.6 creatinine 1.4 to January 23: Hemoglobin 7.3 January 22: White count 2.8 hemoglobin 7.8 platelets 91 January 21: White count 3.1 hemoglobin 7.7 platelets 95 potassium 4.3 creatinine 1.26 January 20: White count 2.9 hemoglobin 7.4 platelets 73 January 7: White count 1.8 hemoglobin 6.8 platelets 73 White count 2.9 hemoglobin 6.9 platelets 113 potassium 4.8 bun 37 creatinine 1.47 Previous testing: Hemoglobin 8.3 on January 13 BUN 59 creatinine 1.58 on December 28 Assessment: -Acute lower GI bleed, felt to be from ascending colon as tagged RBC scan EGD colonoscopy results as above. -right colectomy, repair of incisional hernia, partial omentectomy. -Acute blood loss anemia from GI bleed,-receive a total of 4 units of blood -Chronic congestive heart failure from diastolic dysfunction EF 55-60% -COPD in an ex-smoker -Diabetes mellitus type 2 on oral hypoglycemic -Chronic fibromyalgia -Hyperlipidemia -Essential hypertension -Chronic kidney disease stage III from diabetic nephropathy and hypertensive nephrosclerosis -Rheumatoid arthritis -History of breast cancer with a right-sided mastectomy -Peripheral neuropathy secondary to diabetes -Chronic anxiety depression -Obesity -Liver cirrhosis with portal hypertension on Xifaxan -Pancytopenia from cirrhosis -Patient has a legal guardian-Calvin Whipple -Acute kidney injury-possibly prerenal. Creatinine is called from 1.2 up to 1.8 Plan: Patient put on IV fluids today. Will DC Aldactone. Potassium going up. Repeat labs in the morning. Discussed with patient.
[2020-01-28 20:57] LABS: Glucose,Whole Blood 136 mg/dL (75-99)
[2020-01-29] MEDS: HYDROmorphone 0.5 MG/0.5 ML SYRINGE IVP PRN ×3 (00:54→21:34)
[2020-01-29] MEDS: SODIUM CHLORIDE 0.9% 1,000 ML IV SCH ×3 (03:43→20:25)
[2020-01-29] MEDS: ONDANSETRON 4 MG TAB PO PRN (03:43)
[2020-01-29 06:12] LABS: Glucose,Whole Blood 146 mg/dL (75-99)
[2020-01-29] MEDS: ANASTROZOLE 1 MG TAB PO SCH (08:12)
[2020-01-29] MEDS: PANTOPRAZOLE 40 MG/10 ML VIAL IV SCH (08:12)
[2020-01-29] MEDS: SERTRALINE 25 MG TAB PO SCH (08:13)
[2020-01-29] MEDS: ZINC SULFATE 220 MG CAP PO SCH (08:13)
[2020-01-29] MEDS: ALVIMOPAN 12 MG CAPSULE PO SCH ×2 (08:13→20:25)
[2020-01-29] MEDS: FOLIC ACID 1 MG TAB PO SCH (08:13)
[2020-01-29] MEDS: ASCORBIC ACID 500 MG TAB PO SCH (08:13)
[2020-01-29] MEDS: GABAPENTIN 100 MG CAP PO SCH ×3 (08:13→20:25)
[2020-01-29 08:22] LABS: Anisocytosis Slight; Basophils % (A) 0 %; Eosinophils # (A) 0.1 k/uL (0-0.7); Eosinophils % (A) 1 %; HGB 7.2 gm/dL (11.4-16.0); Hypochromasia Marked; Lymphocytes # (A) 0.6 k/uL (1.0-4.8); Lymphocytes % (A) 11 %; MCH 30.2 pg (25.0-35.0); MCHC 32.6 g/dL (31.0-37.0); MCV 92.8 fL (80.0-100.0); Mean Platelet Volume 8.8; Monocytes # (A) 0.4 k/uL (0-1.0); Monocytes % (A) 8 %; Neutrophils # (A) 4.4 k/uL (1.3-7.7); Neutrophils % (A) 78 %; Platelet Count 132 k/uL (150-450); Poikilocytosis Moderate; RBC 2.37 m/uL (3.80-5.40); WBC 5.7 k/uL (3.8-10.6)
[2020-01-29 08:38] LABS: Calcium 7.6 mg/dL (8.4-10.2); Potassium 5.5 mmol/L (3.5-5.1)
--- NOTE | 2020-01-29 11:12 | P.PN ---
Subjective Progress Note Date: 01/29/20 CHIEF COMPLAINT: GI bleed HISTORY OF PRESENT ILLNESS: Patient is postop day #2 status post right colectom y, repair of incisional hernia and partial omentectomy for GI bleed and incarcerated ventral hernia. Patient has reported abdominal pain and has been receiving the IV Dilaudid. She's currently on a clear liquid diet. Afebrile. WBC 5.7 hemoglobin 7.2 sodium 130 potassium 5.5 creatinine 1.70 Her urine output through the night was only 400. Her IV fluids have been increased to 150. PHYSICAL EXAM: VITAL SIGNS: Reviewed. GENERAL: Well-developed in no acute distress. HEENT: No sclera icterus. Extraocular movements grossly intact. Moist buccal mucosa. Head is atraumatic, normocephalic. ABDOMEN: Soft. Nondistended. Dressing clean dry and intact NEUROLOGIC: Alert and oriented. Cranial nerves II through XII grossly intact. ASSESSMENT: 1. Acute GI bleed status post right colectomy 2. Incisional hernia status post repair 3. Acute blood loss anemia secondary to GI bleed 4. Diabetes mellitus type 2 5. Chronic kidney disease 6. History of liver cirrhosis with portal hypertension 7. Hyperkalemia 8. COVID positive PLAN: -Advance to full liquid diet -Continue IV fluids -Continue pain medication as needed Physician Landscaping Supervisor note has been reviewed by physician. Signing provider agrees with the documented findings, assessment, and plan of care. Objective - Vital Signs Vital signs: Vital Signs Temp 98.9 F 01/29/20 08:00 Pulse 95 01/29/20 08:00 Resp 18 01/29/20 08:00 BP 103/65 01/29/20 08:00 Pulse Ox 94 L 01/29/20 08:00 Intake & Output 01/28/20 01/29/20 01/29/20 18:59 06:59 18:59 Intake Total 360 500 Output Total 200 200 0 Balance 160 300 0 Weight 106.776 kg 104.5 kg Intake: IV 500 Sodium Chloride 0.9% 1, 500 000 ml @ 20 mls/hr IV . Q24H [facility] Rx#:[id number] Oral 360 Output: Urine 200 200 Stool 0 0 0 Other: Voiding Method Incontinent Incontinent Incontinent Indwelling Catheter Indwelling Catheter Indwelling Catheter # Voids 0 - Labs CBC & Chem 7: 01/29/20 08:00 01/29/20 07:14 Labs: Abnormal Lab Results - Last 24 Hours (Table) 01/28/20 01/28/20 01/28/20 Range/Units 10:27 10:27 11:32 RBC 2.75 L (3.80-5.40) m/uL Hgb 8.2 L (11.4-16.0) gm/dL Hct 25.1 L (34.0-46.0) % RDW 15.8 H (11.5-15.5) % Plt Count (150-450) k/uL Lymphocytes # 0.7 L (1.0-4.8) k/uL Sodium 131 L (137-145) mmol/L Potassium 5.3 H (3.5-5.1) mmol/L BUN 21 H (7-17) mg/dL Creatinine 1.81 H (0.52-1.04) mg/dL Glucose 126 H (74-99) mg/dL POC Glucose (mg/dL) 135 H (75-99) mg/dL Calcium 8.2 L (8.4-10.2) mg/dL 01/28/20 01/28/20 01/29/20 Range/Units 16:57 20:27 06:09 RBC (3.80-5.40) m/uL Hgb (11.4-16.0) gm/dL Hct (34.0-46.0) % RDW (11.5-15.5) % Plt Count (150-450) k/uL Lymphocytes # (1.0-4.8) k/uL Sodium (137-145) mmol/L Potassium (3.5-5.1) mmol/L BUN (7-17) mg/dL Creatinine (0.52-1.04) mg/dL Glucose (74-99) mg/dL POC Glucose (mg/dL) 136 H 136 H 146 H (75-99) mg/dL Calcium (8.4-10.2) mg/dL 01/29/20 01/29/20 Range/Units 07:14 08:00 RBC 2.37 L (3.80-5.40) m/uL Hgb 7.2 L (11.4-16.0) gm/dL Hct 22.0 L (34.0-46.0) % RDW 16.0 H (11.5-15.5) % Plt Count 132 L (150-450) k/uL Lymphocytes # 0.6 L (1.0-4.8) k/uL Sodium 130 L (137-145) mmol/L Potassium 5.5 H (3.5-5.1) mmol/L BUN 21 H (7-17) mg/dL Creatinine 1.70 H (0.52-1.04) mg/dL Glucose 111 H (74-99) mg/dL POC Glucose (mg/dL) (75-99) mg/dL Calcium 7.6 L (8.4-10.2) mg/dL
[2020-01-29 11:53] LABS: Glucose,Whole Blood 170 mg/dL (75-99)
[2020-01-29] MEDS: THIAMINE 100 MG TAB PO SCH (15:17)
[2020-01-29] MEDS: MULTIVITAMINS, THERA 1 EACH TAB PO SCH (15:17)
[2020-01-29 17:42] LABS: Glucose,Whole Blood 154 mg/dL (75-99)
[2020-01-29] MEDS ORDERED: FUROSEMIDE 10 MG/ML 2 ML VIAL IV ONE (20:42)
--- NOTE | 2020-01-29 20:47 | P.PN ---
Progress Note - Text Progress Note Date: 01/29/20 Chief Complaint: Lower GI bleed History of presenting complaint: This is a 70 year patient currently at [facility] being sent by Dr. Han. Chronic stable medical conditions include CHF EF 55-60%, COPD, diabetes, fibromyalgia, hyperlipidemia, hypertension, chronic kidney disease stage III, rheumatoid arthritis, history of breast cancer with right sided mastectomy, peripheral neuropathy, chronic anxiety depression, liver cirrhosis with portal hypertension.uses a wheelchair to get about Patient was recently discharged from the hospital on December 25. admitted feeling weak tired rundown. Had 2 maroon stools in the hospital. In August of this year patient had undergone EGD and colonoscopy. Showing diverticulosis. Small bowel capsule study was also unremarkable. Source was felt to be from diverticulosis.. tagged RBC scan. Negative. Last admission patient refuses endoscopy.. Patient now presents to the [facility] as she had 3 episodes of stools with bright red blood with blood clots. Hemoglobin drawn a couple of days ago was 6.6. Patient felt weak and tired. No abdominal pain. No nausea vomiting. admitted with acute GI bleed-initially refused endoscopy. After counseling is agreed for endoscopy. EGD-unremarkable. Colonoscopy-fresh blood throughout th e colon.It is believed that the bleeding is coming from the right colon. Patient may need a partial/right colectomy.. Dr. Seaman- got okay from the legal guardian to proceed with surgery. January 2641-[id number]-adjle colectomy, repair of incisional hernia, partial omentectomy. Today-. On clear liquids. Has not possibly flatus. Some abdominal pain. No nausea vomiting. Review of systems: Was done for constitutional, cardiovascular, GI, pulmonary. relevant finding as above Active Medications Acetaminophen (Acetaminophen Tab 325 Mg Tab) 650 mg PO Q4H PRN PRN Reason: Fever and/ or Pain Hydrocodone Bitart/Acetaminophen (Hydrocodone/Apap 10-325mg 1 Each Tab) 1 each PO Q6HR PRN PRN Reason: Pain Last Admin: 01/28/20 08:44 Dose: 1 each Documented by: Alvimopan (Alvimopan 12 Mg Capsule) 12 mg PO BID ROS Stop: 02/03/20 21:01 Last Admin: 01/29/20 20:25 Dose: 12 mg Documented by: Anastrozole (Anastrozole 1 Mg Tab) 1 mg PO DAILY@0900 [facility] Last Admin: 01/29/20 08:12 Dose: 1 mg Documented by: Artificial Tears (Artificial Tears-Hypromellose Drops 15 Ml Btl) 1 drops BOTH EYES Q12H PRN PRN Reason: Dry Eye(S)/redness Ascorbic Acid (Ascorbic Acid 500 Mg Tab) 500 mg PO DAILY@0900 [facility] Last Admin: 01/29/20 08:13 Dose: 500 mg Documented by: Ergocalciferol (Ergocalciferol 50,000 Unit Cap) 50,000 unit PO Q14D@0900 [facility] Folic Acid (Folic Acid 1 Mg Tab) 1 mg PO DAILY@0900 [facility] Last Admin: 01/29/20 08:13 Dose: 1 mg Documented by: Gabapentin (Gabapentin 100 Mg Cap) 200 mg PO TID@0900,1500,2100 [facility] Last Admin: 01/29/20 20:25 Dose: 200 mg Documented by: Hydromorphone HCl (Hydromorphone 0.5 Mg/0.5 Ml Syringe) 0.5 mg IVP Q4HR PRN PRN Reason: Pain Last Admin: 01/29/20 05:46 Dose: 0.5 mg Documented by: Sodium Chloride (Saline 0.9%) 1,000 mls @ 20 mls/hr IV .Q24H [facility] Last Admin: 01/29/20 15:05 Dose: Not Given Documented by: Sodium Chloride (Saline 0.9%) 1,000 mls @ 125 mls/hr IV .Q8H [facility] Last Admin: 01/29/20 20:25 Dose: 125 mls/hr Documented by: Multivitamins (Multivitamins, Thera 1 Each Tab) 1 each PO DAILY@1500 [facility] Last Admin: 01/29/20 15:17 Dose: 1 each Documented by: Naloxone HCl (Naloxone 0.4 Mg/Ml 1 Ml Vial) 0.2 mg IV Q2M PRN PRN Reason: Opioid Reversal Ondansetron HCl (Ondansetron 4 Mg/2 Ml Vial) 4 mg IVP Q8HR PRN PRN Reason: Nausea And Vomiting Last Admin: 01/27/20 05:51 Dose: 4 mg Documented by: Ondansetron HCl (Ondansetron 4 Mg Tab) 4 mg PO TID PRN PRN Reason: Nausea And Vomiting Last Admin: 01/29/20 03:43 Dose: 4 mg Documented by: Oxymetazoline HCl (Oxymetazoline 0.05% Nasl [place] 1 [place] Bottle) 1 spray NASAL Q15M PRN PRN Reason: BLOODY NOSE Sertraline HCl (Sertraline 25 Mg Tab) 25 mg PO DAILY@0900 [facility] Last Admin: 01/29/20 08:13 Dose: 25 mg Documented by: Thiamine HCl (Thiamine 100 Mg Tab) 100 mg PO DAILY@1500 [facility] Last Admin: 01/29/20 15:17 Dose: 100 mg Documented by: Zinc Sulfate (Zinc Sulfate 220 Mg Cap) 220 mg PO DAILY@0900 [facility] Last Admin: 01/29/20 08:13 Dose: 220 mg Documented by: Physical examination: VITAL SIGNS: 98.9, 92, 18, 103 with 65, 94% on 2 L GENERAL: Reclining in bed, awake EYES: Pupils equal. Conjunctiva pale. NECK: JVD unable to assess; masses not palpable. HEART: First and second heart sounds are normal; mild edema. LUNGS: Respiratory rate increased; decreased breath sounds. ABDOMEN: Abdominal binder in place, tender. Decreased bowel sounds PSYCH: Awake, answering questions NEUROLOGICAL: Cranial nerves grossly intact; no facial asymmetry, decreased power lower extremity. Investigations: January 28: White count 5.7 hemoglobin 7.2 potassium 5.5 creatinine 1.7 January 18: hemoglobin 8.2 potassium 5.3 rate and 1.81 January 26: White count 3.3 hemoglobin 8.1 platelets 125 January 25: White count 2.7 hemoglobin 6.6 platelets 108 potassium 5 creatinine 1.65 January 24: Hemoglobin 7.6 creatinine 1.4 to January 23: Hemoglobin 7.3 January 22: White count 2.8 hemoglobin 7.8 platelets 91 January 21: White count 3.1 hemoglobin 7.7 platelets 95 potassium 4.3 creatinine 1.26 January 20: White count 2.9 hemoglobin 7.4 platelets 73 January 19: White count 1.8 hemoglobin 6.8 platelets 73 White count 2.9 hemoglobin 6.9 platelets 113 potassium 4.8 bun 37 creatinine 1.47 Previous testing: Hemoglobin 8.3 on January 13 BUN 59 creatinine 1.58 on December 28 Assessment: -Acute lower GI bleed, felt to be from ascending colon as tagged RBC scan EGD colonoscopy results as above. -right colectomy, repair of incisional hernia, partial omentectomy. -Acute blood loss anemia from GI bleed,-receive a total of 4 units of blood -Chronic congestive heart failure from diastolic dysfunction EF 55-60% -COPD in an ex-smoker -Diabetes mellitus type 2 on oral hypoglycemic -Chronic fibromyalgia -Hyperlipidemia -Essential hypertension -Chronic kidney disease stage III from diabetic nephropathy and hypertensive nephrosclerosis -Rheumatoid arthritis -History of breast cancer with a right-sided mastectomy -Peripheral neuropathy secondary to diabetes -Chronic anxiety depression -Obesity -Liver cirrhosis with portal hypertension on Xifaxan -Pancytopenia from cirrhosis -Patient has a legal guardian-Calvin Whipple -Acute kidney injury-possibly prerenal. Creatinine increased from 1.2 up to 1.8 -Hyperkalemia from C daily. Plan: Continue with IV fluids. We'll give some IV Lasix to bring down the potassium. Diet advanced to full liquid per surgery. Discussed with the patient. Repeat BMP in the morning.
[2020-01-30] MEDS: HYDROmorphone 0.5 MG/0.5 ML SYRINGE IVP PRN ×2 (04:20→18:29)
[2020-01-30 06:02] LABS: Glucose,Whole Blood 127 mg/dL (75-99)
[2020-01-30] MEDS: SODIUM CHLORIDE 0.9% 1,000 ML IV SCH ×4 (06:20→18:28)
[2020-01-30 08:14] LABS: Calcium 7.7 mg/dL (8.4-10.2); Potassium 5.2 mmol/L (3.5-5.1)
[2020-01-30 08:18] LABS: Anisocytosis Slight; Basophils # (A) 0.1 k/uL (0-0.2); Basophils % (A) 1 %; Eosinophils % (A) 0 %; HCT 23.4 % (34.0-46.0); HGB 7.3 gm/dL (11.4-16.0); Hypochromasia Marked; Lymphocytes # (A) 0.6 k/uL (1.0-4.8); Lymphocytes % (A) 8 %; MCH 29.4 pg (25.0-35.0); MCHC 31.1 g/dL (31.0-37.0); MCV 94.6 fL (80.0-100.0); Mean Platelet Volume 8.6; Monocytes # (A) 0.5 k/uL (0-1.0); Monocytes % (A) 7 %; Neutrophils # (A) 6.2 k/uL (1.3-7.7); Neutrophils % (A) 82 %; Platelet Count 128 k/uL (150-450); Poikilocytosis Moderate; RBC 2.48 m/uL (3.80-5.40); RDW 16.5 % (11.5-15.5); WBC 7.6 k/uL (3.8-10.6)
[2020-01-30] MEDS: GABAPENTIN 100 MG CAP PO SCH ×3 (08:28→20:51)
[2020-01-30] MEDS: SERTRALINE 25 MG TAB PO SCH (08:28)
[2020-01-30] MEDS: FOLIC ACID 1 MG TAB PO SCH (08:28)
[2020-01-30] MEDS: ANASTROZOLE 1 MG TAB PO SCH (08:28)
[2020-01-30] MEDS: ALVIMOPAN 12 MG CAPSULE PO SCH ×2 (08:28→20:49)
[2020-01-30] MEDS: ASCORBIC ACID 500 MG TAB PO SCH (08:28)
[2020-01-30] MEDS: ZINC SULFATE 220 MG CAP PO SCH (08:28)
--- NOTE | 2020-01-30 11:22 | P.PN ---
Subjective Progress Note Date: 01/30/20 CHIEF COMPLAINT: GI bleed HISTORY OF PRESENT ILLNESS: Patient is postop day #3 status post right colectom y, repair of incisional hernia and partial omentectomy for GI bleed and incarcerated ventral hernia. Patient has reported abdominal pain and has been receiving the IV Dilaudid. She is tolerating full liquid diet. She is passing gas. No bowel movement reported. Her urine output has shown improvement. IV fluids decreased to 75 mL an hour. Her hyperkalemia is improving. She did receive a dose of IV Lasix. Potassium today 5.2. WBC 7.6 hemoglobin 7.3 patient afebrile. PHYSICAL EXAM: VITAL SIGNS: Reviewed. GENERAL: Well-developed in no acute distress. HEENT: No sclera icterus. Extraocular movements grossly intact. Moist buccal mucosa. Head is atraumatic, normocephalic. ABDOMEN: Soft. Nondistended. Dressing clean dry and intact NEUROLOGIC: Alert and oriented. Cranial nerves II through XII grossly intact. ASSESSMENT: 1. Acute GI bleed status post right colectomy 2. Incisional hernia status post repair 3. Acute blood loss anemia secondary to GI bleed 4. Diabetes mellitus type 2 5. Chronic kidney disease 6. History of liver cirrhosis with portal hypertension 7. Hyperkalemia 8. COVID positive PLAN: -Advance to full liquid diet -Continue IV fluids -Continue pain medication as needed Physician Slaughterer Religious Ritual note has been reviewed by physician. Signing provider agrees with the documented findings, assessment, and plan of care. Objective - Vital Signs Vital signs: Vital Signs Temp 98.2 F 01/30/20 08:00 Pulse 100 01/30/20 08:00 Resp 18 01/30/20 08:00 BP 96/58 01/30/20 08:00 Pulse Ox 95 01/30/20 08:00 Intake & Output 01/29/20 01/30/20 01/30/20 18:59 06:59 18:59 Intake Total 540 Output Total 500 1400 0 Balance 40 -1400 0 Intake: Oral 540 Output: Urine 500 1400 Stool 0 0 0 Other: Voiding Method Incontinent Incontinent Incontinent Indwelling Catheter Indwelling Catheter Indwelling Catheter - Labs CBC & Chem 7: 01/30/20 08:00 01/30/20 07:08 Labs: Abnormal Lab Results - Last 24 Hours (Table) 01/29/20 01/29/20 01/30/20 Range/Units 11:43 17:06 06:00 RBC (3.80-5.40) m/uL Hgb (11.4-16.0) gm/dL Hct (34.0-46.0) % RDW (11.5-15.5) % Plt Count (150-450) k/uL Lymphocytes # (1.0-4.8) k/uL Sodium (137-145) mmol/L Potassium (3.5-5.1) mmol/L BUN (7-17) mg/dL Creatinine (0.52-1.04) mg/dL Glucose (74-99) mg/dL POC Glucose (mg/dL) 170 H 154 H 127 H (75-99) mg/dL Calcium (8.4-10.2) mg/dL 01/30/20 01/30/20 Range/Units 07:08 08:00 RBC 2.48 L (3.80-5.40) m/uL Hgb 7.3 L (11.4-16.0) gm/dL Hct 23.4 L (34.0-46.0) % RDW 16.5 H (11.5-15.5) % Plt Count 128 L (150-450) k/uL Lymphocytes # 0.6 L (1.0-4.8) k/uL Sodium 129 L (137-145) mmol/L Potassium 5.2 H (3.5-5.1) mmol/L BUN 20 H (7-17) mg/dL Creatinine 1.36 H (0.52-1.04) mg/dL Glucose 114 H (74-99) mg/dL POC Glucose (mg/dL) (75-99) mg/dL Calcium 7.7 L (8.4-10.2) mg/dL
[2020-01-30 11:32] LABS: Glucose,Whole Blood 150 mg/dL (75-99)
[2020-01-30] MEDS: HYDROcodone/APAP 10-325MG 1 EACH TAB PO PRN (13:52)
[2020-01-30 16:25] LABS: Glucose,Whole Blood 158 mg/dL (75-99)
[2020-01-30] MEDS: THIAMINE 100 MG TAB PO SCH (18:28)
[2020-01-30] MEDS: MULTIVITAMINS, THERA 1 EACH TAB PO SCH (18:29)
--- NOTE | 2020-01-30 19:55 | P.PN ---
Progress Note - Text Progress Note Date: 01/30/20 Chief Complaint: Lower GI bleed History of presenting complaint: This is a 70 year patient currently at [facility] being sent by Dr. Han. Chronic stable medical conditions include CHF EF 55-60%, COPD, diabetes, fibromyalgia, hyperlipidemia, hypertension, chronic kidney disease stage III, rheumatoid arthritis, history of breast cancer with right sided mastectomy, peripheral neuropathy, chronic anxiety depression, liver cirrhosis with portal hypertension.uses a wheelchair to get about Patient was recently discharged from the hospital on December 25. admitted feeling weak tired rundown. Had 2 maroon stools in the hospital. In August of this year patient had undergone EGD and colonoscopy. Showing diverticulosis. Small bowel capsule study was also unremarkable. Source was felt to be from diverticulosis.. tagged RBC scan. Negative. Last admission patient refuses endoscopy.. Patient now presents to the [facility] as she had 3 episodes of stools with bright red blood with blood clots. Hemoglobin drawn a couple of days ago was 6.6. Patient felt weak and tired. No abdominal pain. No nausea vomiting. admitted with acute GI bleed-initially refused endoscopy. After counseling is agreed for endoscopy. EGD-unremarkable. Colonoscopy-fresh blood throughout th e colon.It is believed that the bleeding is coming from the right colon. Patient may need a partial/right colectomy.. Dr. Seaman- got okay from the legal guardian to proceed with surgery. January 2629-[id number] colectomy, repair of incisional hernia, partial omentectomy. Today-. Tolerated clear liquids. Did pass some flatus. Some abdominal pain. Decreased appetite. Review of systems: Was done for constitutional, cardiovascular, GI, pulmonary. relevant finding as above Active Medications Acetaminophen (Acetaminophen Tab 325 Mg Tab) 650 mg PO Q4H PRN PRN Reason: Fever and/ or Pain Hydrocodone Bitart/Acetaminophen (Hydrocodone/Apap 10-325mg 1 Each Tab) 1 each PO Q6HR PRN PRN Reason: Pain Last Admin: 01/30/20 13:52 Dose: 1 each Documented by: Alvimopan (Alvimopan 12 Mg Capsule) 12 mg PO BID [facility] Stop: 02/03/20 21:01 Last Admin: 01/30/20 08:28 Dose: 12 mg Documented by: Anastrozole (Anastrozole 1 Mg Tab) 1 mg PO DAILY@0900 [facility] Last Admin: 01/30/20 08:28 Dose: 1 mg Documented by: Artificial Tears (Artificial Tears-Hypromellose Drops 15 Ml Btl) 1 drops BOTH EYES Q12H PRN PRN Reason: Dry Eye(S)/redness Ascorbic Acid (Ascorbic Acid 500 Mg Tab) 500 mg PO DAILY@0900 [facility] Last Admin: 01/30/20 08:28 Dose: 500 mg Documented by: Ergocalciferol (Ergocalciferol 50,000 Unit Cap) 50,000 unit PO Q14D@0900 [facility] Folic Acid (Folic Acid 1 Mg Tab) 1 mg PO DAILY@0900 [facility] Last Admin: 01/30/20 08:28 Dose: 1 mg Documented by: Gabapentin (Gabapentin 100 Mg Cap) 200 mg PO TID@0900,1500,2100 [facility] Last Admin: 01/30/20 18:28 Dose: 200 mg Documented by: Hydromorphone HCl (Hydromorphone 0.5 Mg/0.5 Ml Syringe) 0.5 mg IVP Q4HR PRN PRN Reason: Pain Last Admin: 01/30/20 18:29 Dose: 0.5 mg Documented by: Sodium Chloride (Saline 0.9%) 1,000 mls @ 20 mls/hr IV .Q24H [facility] Last Admin: 01/30/20 17:51 Dose: Not Given Documented by: Sodium Chloride (Saline 0.9%) 1,000 mls @ 75 mls/hr IV .[id number] [facility] Last Admin: 01/30/20 18:28 Dose: 75 mls/hr Documented by: Multivitamins (Multivitamins, Thera 1 Each Tab) 1 each PO DAILY@1500 [facility] Last Admin: 01/30/20 18:29 Dose: 1 each Documented by: Naloxone HCl (Naloxone 0.4 Mg/Ml 1 Ml Vial) 0.2 mg IV Q2M PRN PRN Reason: Opioid Reversal Ondansetron HCl (Ondansetron 4 Mg/2 Ml Vial) 4 mg IVP Q8HR PRN PRN Reason: Nausea And Vomiting Last Admin: 01/27/20 05:51 Dose: 4 mg Documented by: Ondansetron HCl (Ondansetron 4 Mg Tab) 4 mg PO TID PRN PRN Reason: Nausea And Vomiting Last Admin: 01/29/20 03:43 Dose: 4 mg Documented by: Oxymetazoline HCl (Oxymetazoline 0.05% Nasl [place] 1 [place] Bottle) 1 spray NASAL Q15M PRN PRN Reason: BLOODY NOSE Sertraline HCl (Sertraline 25 Mg Tab) 25 mg PO DAILY@0900 [facility] Last Admin: 01/30/20 08:28 Dose: 25 mg Documented by: Thiamine HCl (Thiamine 100 Mg Tab) 100 mg PO DAILY@1500 [facility] Last Admin: 01/30/20 18:28 Dose: 100 mg Documented by: Zinc Sulfate (Zinc Sulfate 220 Mg Cap) 220 mg PO DAILY@0900 [facility] Last Admin: 01/30/20 08:28 Dose: 220 mg Documented by: Physical examination: VITAL SIGNS: 98.2, 100, 18, 108/67, 95% room air GENERAL: Reclining in bed, awake EYES: Pupils equal. Conjunctiva pale. NECK: JVD unable to assess; masses not palpable. HEART: First and second heart sounds are normal; mild edema. LUNGS: Respiratory rate increased; decreased breath sounds. ABDOMEN: Abdominal binder in place, tender. Decreased bowel sounds PSYCH: Awake, answering questions NEUROLOGICAL: Cranial nerves grossly intact; no facial asymmetry, decreased power lower extremity. Investigations: January 29: White count 7.6 hemoglobin 7.3 platelets 128 potassium 5.2 bun 20 creatinine 1.36 January 28: White count 5.7 hemoglobin 7.2 potassium 5.5 creatinine 1.7 January 18: hemoglobin 8.2 potassium 5.3 rate and 1.81 January 26: White count 3.3 hemoglobin 8.1 platelets 125 January 25: White count 2.7 hemoglobin 6.6 platelets 108 potassium 5 creatinine 1.65 January 24: Hemoglobin 7.6 creatinine 1.4 to January 23: Hemoglobin 7.3 January 10: White count 2.8 hemoglobin 7.8 platelets 91 January 21: White count 3.1 hemoglobin 7.7 platelets 95 potassium 4.3 creatinine 1.26 January 20: White count 2.9 hemoglobin 7.4 platelets 73 January 7: White count 1.8 hemoglobin 6.8 platelets 73 White count 2.9 hemoglobin 6.9 platelets 113 potassium 4.8 bun 37 creatinine 1.47 Previous testing: Hemoglobin 8.3 on January 13 BUN 59 creatinine 1.58 on December 28 Assessment: -Acute lower GI bleed, felt to be from ascending colon as tagged RBC scan EGD colonoscopy results as above. -right colectomy, repair of incisional hernia, partial omentectomy. -Acute blood loss anemia from GI bleed,-receive a total of 4 units of blood -Chronic congestive heart failure from diastolic dysfunction EF 55-60% -COPD in an ex-smoker -Diabetes mellitus type 2 on oral hypoglycemic -Chronic fibromyalgia -Hyperlipidemia -Essential hypertension -Chronic kidney disease stage III from diabetic nephropathy and hypertensive nephrosclerosis -Rheumatoid arthritis -History of breast cancer with a right-sided mastectomy -Peripheral neuropathy secondary to diabetes -Chronic anxiety depression -Obesity -Liver cirrhosis with portal hypertension on Xifaxan -Pancytopenia from cirrhosis -Patient has a legal guardian-Calvin Whipple -Acute kidney injury-possibly prerenal. Creatinine increased from 1.2 up to 1.8, improving -Hyperkalemia . Plan: We'll have the patient sit on the chair. Diet to be advanced per surgery. Other medications to continue. Encourage oral intake. Patient on IV fluids 75 mL an hour.
[2020-01-30 20:55] LABS: Glucose,Whole Blood 136 mg/dL (75-99)
[2020-01-31] MEDS: HYDROmorphone 0.5 MG/0.5 ML SYRINGE IVP PRN ×3 (04:12→18:55)
[2020-01-31 06:11] LABS: Glucose,Whole Blood 129 mg/dL (75-99)
[2020-01-31] MEDS: HYDROcodone/APAP 10-325MG 1 EACH TAB PO PRN ×2 (08:14→16:38)
[2020-01-31 08:24] LABS: Anisocytosis Slight; Calcium 7.9 mg/dL (8.4-10.2); HCT 24.2 % (34.0-46.0); HGB 7.4 gm/dL (11.4-16.0); Hypochromasia Marked; MCH 28.6 pg (25.0-35.0); MCHC 30.4 g/dL (31.0-37.0); MCV 93.8 fL (80.0-100.0); Mean Platelet Volume 9.1; Platelet Count 147 k/uL (150-450); Poikilocytosis Moderate; Potassium 5.5 mmol/L (3.5-5.1); RBC 2.58 m/uL (3.80-5.40); RDW 16.6 % (11.5-15.5); WBC 6.2 k/uL (3.8-10.6)
[2020-01-31] MEDS: SERTRALINE 25 MG TAB PO SCH (08:31)
[2020-01-31] MEDS: ANASTROZOLE 1 MG TAB PO SCH (08:32)
[2020-01-31] MEDS: ALVIMOPAN 12 MG CAPSULE PO SCH (08:32)
[2020-01-31] MEDS: ZINC SULFATE 220 MG CAP PO SCH (08:32)
[2020-01-31] MEDS: FOLIC ACID 1 MG TAB PO SCH (08:32)
[2020-01-31] MEDS: ASCORBIC ACID 500 MG TAB PO SCH (08:32)
[2020-01-31] MEDS: GABAPENTIN 100 MG CAP PO SCH ×3 (08:32→21:51)
[2020-01-31] MEDS: SODIUM CHLORIDE 0.9% 1,000 ML IV SCH ×2 (08:33→11:09)
[2020-01-31 11:59] LABS: Glucose,Whole Blood 147 mg/dL (75-99)
--- NOTE | 2020-01-31 13:47 | P.PN ---
Subjective Progress Note Date: 01/31/20 CHIEF COMPLAINT: GI bleed HISTORY OF PRESENT ILLNESS: Patient is postop day #3 status post right colectom y, repair of incisional hernia and partial omentectomy for GI bleed and incarcerated ventral hernia. Patient does report some abdominal pain. Denies any nausea or vomiting. She had 2 bowel movements yesterday and is passing gas. She is tolerating a full liquid diet. She is afebrile. WBC is 6.2 hemoglobin 7.4 potassium is 5.5 creatinine is 1.21 PHYSICAL EXAM: VITAL SIGNS: Reviewed. GENERAL: Well-developed in no acute distress. HEENT: No sclera icterus. Extraocular movements grossly intact. Moist buccal mucosa. Head is atraumatic, normocephalic. ABDOMEN: Soft. Nondistended. Dressing clean dry and intact NEUROLOGIC: Alert and oriented. Cranial nerves II through XII grossly intact. ASSESSMENT: 1. Acute GI bleed status post right colectomy 2. Incisional hernia status post repair 3. Acute blood loss anemia secondary to GI bleed 4. Diabetes mellitus type 2 5. Chronic kidney disease 6. History of liver cirrhosis with portal hypertension 7. Hyperkalemia 8. COVID positive PLAN: -Advance to low fiber -Continue pain medication as needed -Consult PT OT -Encourage incentive spirometer use -Hyperkalemia treatment per medicine service Physician Sprinkler Installer note has been reviewed by physician. Signing provider agrees with the documented findings, assessment, and plan of care. Objective - Vital Signs Vital signs: Vital Signs Temp 98.1 F 01/30/20 20:00 Pulse 88 01/31/20 13:07 Resp 17 01/31/20 13:07 BP 92/61 01/31/20 12:00 Pulse Ox 92 L 01/31/20 12:00 Intake & Output 01/30/20 01/31/20 01/31/20 18:59 06:59 18:59 Intake Total 600 480 Output Total 500 250 0 Balance -500 350 480 Weight 105 kg 105 kg Intake: Oral 600 480 Output: Urine 500 250 Stool 0 0 0 Other: Voiding Method Incontinent Incontinent Incontinent Indwelling Catheter Indwelling Catheter Indwelling Catheter # Bowel Movements 2 - Labs CBC & Chem 7: 01/31/20 06:45 01/31/20 06:45 Labs: Abnormal Lab Results - Last 24 Hours (Table) 01/30/20 01/30/20 01/31/20 Range/Units 16:24 20:54 06:10 RBC (3.80-5.40) m/uL Hgb (11.4-16.0) gm/dL Hct (34.0-46.0) % MCHC (31.0-37.0) g/dL RDW (11.5-15.5) % Plt Count (150-450) k/uL Sodium (137-145) mmol/L Potassium (3.5-5.1) mmol/L Carbon Dioxide (22-30) mmol/L BUN (7-17) mg/dL Creatinine (0.52-1.04) mg/dL Glucose (74-99) mg/dL POC Glucose (mg/dL) 158 H 136 H 129 H (75-99) mg/dL Calcium (8.4-10.2) mg/dL 01/31/20 01/31/20 01/31/20 Range/Units 06:45 06:45 11:57 RBC 2.58 L (3.80-5.40) m/uL Hgb 7.4 L (11.4-16.0) gm/dL Hct 24.2 L (34.0-46.0) % MCHC 30.4 L (31.0-37.0) g/dL RDW 16.6 H (11.5-15.5) % Plt Count 147 L (150-450) k/uL Sodium 132 L (137-145) mmol/L Potassium 5.5 H (3.5-5.1) mmol/L Carbon Dioxide 21 L (22-30) mmol/L BUN 21 H (7-17) mg/dL Creatinine 1.21 H (0.52-1.04) mg/dL Glucose 108 H (74-99) mg/dL POC Glucose (mg/dL) 147 H (75-99) mg/dL Calcium 7.9 L (8.4-10.2) mg/dL
[2020-01-31 16:36] LABS: Glucose,Whole Blood 212 mg/dL (75-99)
[2020-01-31] MEDS: THIAMINE 100 MG TAB PO SCH (16:38)
[2020-01-31] MEDS: MULTIVITAMINS, THERA 1 EACH TAB PO SCH (16:39)
--- NOTE | 2020-01-31 16:53 | P.PN ---
Progress Note - Text Progress Note Date: 01/31/20 Chief Complaint: Lower GI bleed History of presenting complaint: This is a 70 year patient currently at [facility] being sent by Dr. Han. Chronic stable medical conditions include CHF EF 55-60%, COPD, diabetes, fibromyalgia, hyperlipidemia, hypertension, chronic kidney disease stage III, rheumatoid arthritis, history of breast cancer with right sided mastectomy, peripheral neuropathy, chronic anxiety depression, liver cirrhosis with portal hypertension.uses a wheelchair to get about Patient was recently discharged from the hospital on December 25. admitted feeling weak tired rundown. Had 2 maroon stools in the hospital. In August of this year patient had undergone EGD and colonoscopy. Showing diverticulosis. Small bowel capsule study was also unremarkable. Source was felt to be from diverticulosis.. tagged RBC scan. Negative. Last admission patient refuses endoscopy.. Patient now presents to the [facility] as she had 3 episodes of stools with bright red blood with blood clots. Hemoglobin drawn a couple of days ago was 6.6. Patient felt weak and tired. No abdominal pain. No nausea vomiting. admitted with acute GI bleed-initially refused endoscopy. After counseling is agreed for endoscopy. EGD-unremarkable. Colonoscopy-fresh blood throughout th e colon.It is believed that the bleeding is coming from the right colon. Patient may need a partial/right colectomy.. Dr. Seaman- got okay from the legal guardian to proceed with surgery. January 2657-[id number] colectomy, repair of incisional hernia, partial omentectomy. Today-. Sitting up in a chair. Some abdominal pain. Denies having passed flatus or bowel movement. No nausea vomiting. Review of systems: Was done for constitutional, cardiovascular, GI, pulmonary. relevant finding as above Active Medications Acetaminophen (Acetaminophen Tab 325 Mg Tab) 650 mg PO Q4H PRN PRN Reason: Fever and/ or Pain Hydrocodone Bitart/Acetaminophen (Hydrocodone/Apap 10-325mg 1 Each Tab) 1 each PO Q6HR PRN PRN Reason: Pain Last Admin: 01/31/20 16:38 Dose: 1 each Documented by: Anastrozole (Anastrozole 1 Mg Tab) 1 mg PO DAILY@0900 [facility] Last Admin: 01/31/20 08:32 Dose: 1 mg Documented by: Artificial Tears (Artificial Tears-Hypromellose Drops 15 Ml Btl) 1 drops BOTH EYES Q12H PRN PRN Reason: Dry Eye(S)/redness Ascorbic Acid (Ascorbic Acid 500 Mg Tab) 500 mg PO DAILY@0900 [facility] Last Admin: 01/31/20 08:32 Dose: 500 mg Documented by: Ergocalciferol (Ergocalciferol 50,000 Unit Cap) 50,000 unit PO Q14D@0900 [facility] Folic Acid (Folic Acid 1 Mg Tab) 1 mg PO DAILY@0900 [facility] Last Admin: 01/31/20 08:32 Dose: 1 mg Documented by: Gabapentin (Gabapentin 100 Mg Cap) 200 mg PO TID@0900,1500,2100 [facility] Last Admin: 01/31/20 16:38 Dose: 200 mg Documented by: Hydromorphone HCl (Hydromorphone 0.5 Mg/0.5 Ml Syringe) 0.5 mg IVP Q4HR PRN PRN Reason: Pain Last Admin: 01/31/20 11:16 Dose: 0.5 mg Documented by: Sodium Chloride (Saline 0.9%) 1,000 mls @ 20 mls/hr IV .Q24H [facility] Last Admin: 01/31/20 11:09 Dose: Not Given Documented by: Sodium Chloride (Saline 0.9%) 1,000 mls @ 75 mls/hr IV .[id number] [facility] Last Admin: 01/31/20 08:33 Dose: 75 mls/hr Documented by: Multivitamins (Multivitamins, Thera 1 Each Tab) 1 each PO DAILY@1500 [facility] Last Admin: 01/31/20 16:39 Dose: 1 each Documented by: Naloxone HCl (Naloxone 0.4 Mg/Ml 1 Ml Vial) 0.2 mg IV Q2M PRN PRN Reason: Opioid Reversal Ondansetron HCl (Ondansetron 4 Mg/2 Ml Vial) 4 mg IVP Q8HR PRN PRN Reason: Nausea And Vomiting Last Admin: 01/27/20 05:51 Dose: 4 mg Documented by: Ondansetron HCl (Ondansetron 4 Mg Tab) 4 mg PO TID PRN PRN Reason: Nausea And Vomiting Last Admin: 01/29/20 03:43 Dose: 4 mg Documented by: Oxymetazoline HCl (Oxymetazoline 0.05% Nasl [place] 1 [place] Bottle) 1 spray NASAL Q15M PRN PRN Reason: BLOODY NOSE Sertraline HCl (Sertraline 25 Mg Tab) 25 mg PO DAILY@0900 [facility] Last Admin: 01/31/20 08:31 Dose: 25 mg Documented by: Thiamine HCl (Thiamine 100 Mg Tab) 100 mg PO DAILY@1500 [facility] Last Admin: 01/31/20 16:38 Dose: 100 mg Documented by: Zinc Sulfate (Zinc Sulfate 220 Mg Cap) 220 mg PO DAILY@0900 [facility] Last Admin: 01/31/20 08:32 Dose: 220 mg Documented by: Physical examination: VITAL SIGNS: Afebrile, 90, 16, 96/50, 95% room air GENERAL: Sitting up in a chair, awake EYES: Pupils equal. Conjunctiva pale. NECK: JVD unable to assess; masses not palpable. HEART: First and second heart sounds are normal; mild edema. LUNGS: Respiratory rate increased; decreased breath sounds. ABDOMEN: Abdominal binder in place, tender. Decreased bowel sounds PSYCH: Awake, answering questions NEUROLOGICAL: Cranial nerves grossly intact; no facial asymmetry, decreased power lower extremity. Investigations: January 30: White count 6.2 hemoglobin 7.4 potassium 5.5 bun 21 and creatinine 1.21 January 29: White count 7.6 hemoglobin 7.3 platelets 128 potassium 5.2 bun 20 creatinine 1.36 January 28: White count 5.7 hemoglobin 7.2 potassium 5.5 creatinine 1.7 January 18: hemoglobin 8.2 potassium 5.3 rate and 1.81 January 26: White count 3.3 hemoglobin 8.1 platelets 125 January 25: White count 2.7 hemoglobin 6.6 platelets 108 potassium 5 creatinine 1.65 January 24: Hemoglobin 7.6 creatinine 1.4 to January 23: Hemoglobin 7.3 January 22: White count 2.8 hemoglobin 7.8 platelets 91 January 21: White count 3.1 hemoglobin 7.7 platelets 95 potassium 4.3 creatinine 1.26 January 20: White count 2.9 hemoglobin 7.4 platelets 73 January 7: White count 1.8 hemoglobin 6.8 platelets 73 White count 2.9 hemoglobin 6.9 platelets 113 potassium 4.8 bun 37 creatinine 1.47 Previous testing: Hemoglobin 8.3 on January 13 BUN 59 creatinine 1.58 on December 28 Assessment: -Acute lower GI bleed, felt to be from ascending colon as tagged RBC scan EGD colonoscopy results as above. -right colectomy, repair of incisional hernia, partial omentectomy. -Acute blood loss anemia from GI bleed,-receive a total of 4 units of blood -Chronic congestive heart failure from diastolic dysfunction EF 55-60% -COPD in an ex-smoker -Diabetes mellitus type 2 on oral hypoglycemic -Chronic fibromyalgia -Hyperlipidemia -Essential hypertension -Chronic kidney disease stage III from diabetic nephropathy and hypertensive nephrosclerosis -Rheumatoid arthritis -History of breast cancer with a right-sided mastectomy -Peripheral neuropathy secondary to diabetes -Chronic anxiety depression -Obesity -Liver cirrhosis with portal hypertension on Xifaxan -Pancytopenia from cirrhosis -Patient has a legal guardian-Calvin Whipple -Acute kidney injury-possibly prerenal. Creatinine increased from 1.2 up to 1.8, improving -Hyperkalemia . Plan: Continue with slow hydration. Encourage oral intake. Diet advanced to low fiber per surgery. Keep on a low potassium diet. Repeat labs in the morning. DC to ECF, when okay with surgery
[2020-01-31 20:32] LABS: Glucose,Whole Blood 246 mg/dL (75-99)
[2020-02-01] MEDS: HYDROmorphone 0.5 MG/0.5 ML SYRINGE IVP PRN ×3 (03:50→15:12)
[2020-02-01] MEDS: ONDANSETRON 4 MG/2 ML VIAL IVP PRN ×2 (04:40→17:44)
[2020-02-01] MEDS: SODIUM CHLORIDE 0.9% 1,000 ML IV SCH ×3 (06:35→18:17)
[2020-02-01] MEDS: SERTRALINE 25 MG TAB PO SCH (08:34)
[2020-02-01] MEDS: ASCORBIC ACID 500 MG TAB PO SCH (08:34)
[2020-02-01] MEDS: FOLIC ACID 1 MG TAB PO SCH (08:34)
[2020-02-01] MEDS: ANASTROZOLE 1 MG TAB PO SCH (08:34)
[2020-02-01] MEDS: GABAPENTIN 100 MG CAP PO SCH ×3 (08:34→20:08)
[2020-02-01] MEDS: ZINC SULFATE 220 MG CAP PO SCH (08:34)
[2020-02-01 08:38] LABS: Calcium 7.8 mg/dL (8.4-10.2)
[2020-02-01 11:49] LABS: Glucose,Whole Blood 168 mg/dL (75-99)
[2020-02-01] MEDS: INSULIN ASPART (NovoLOG) 100 UNIT/ML VIAL SQ SCH (12:32)
[2020-02-01] MEDS: HYDROcodone/APAP 10-325MG 1 EACH TAB PO PRN ×2 (12:34→18:18)
--- NOTE | 2020-02-01 15:11 | P.PN ---
Subjective Progress Note Date: 02/01/20 CHIEF COMPLAINT: GI bleed HISTORY OF PRESENT ILLNESS: The patient is a 70-year-old female status post ri ght hemicolectomy, 01/27/20. She reports epigastric abdominal pain as her abdominal binder is rolling over the abdomen to the level of the epigastrium. She is sitting up in the chair. No reports of nausea and vomiting. She is tolerating liquid diet. She is having multiple bowel movements. She has chronic pain syndrome and takes [place] 10s at home. ROS: No reports of nausea and vomiting. No fevers or chills. No new chest pain. PHYSICAL EXAM: VITAL SIGNS: Reviewed CONSTITUTIONAL: Well developed and in no acute distress. EYES: Conjuctivae without sclera icterus. Extraocular movements grossly intact. HEAD, EARS, NOSE, THROAT: Moist buccal mucosa. Head is atraumatic, normocephalic. Hears conversational speech. No nasal drainage. NECK: No thyroidomegaly. RESPIRATORY: Non-labored respirations and equal bilateral excursions. CARDIOVASCULAR: Palpable 2+ radial pulses. ABDOMEN: Protuberant. Abdominal binder present. MUSCULOSKELETAL: No gross deformity of the lower extremities noted. No clubbing. No cyanosis. SKIN: Good skin turgor. Well perfused. NEUROLOGIC: Cranial nerves II through XII grossly intact. No focal or lateralizing signs. PSYCH: Appropriate affect. Alert and oriented to person, place and time. CLINICAL LABS: Hemoglobin stable 7.3-7.4. White blood cell count 6.2. ASSESSMENT: 1. Status post right hemicolectomy for GI bleed 2. COVID-19 positive 3. Chronic pain syndrome PLAN: 1. New abdominal binder ordered. 2. Recommended adjust pain medications 3. Diet as tolerated Objective - Vital Signs Vital signs: Vital Signs Temp 98.5 F 02/01/20 08:29 Pulse 84 02/01/20 14:00 Resp 18 02/01/20 14:00 BP 111/55 02/01/20 11:10 Pulse Ox 92 L 02/01/20 11:10 Intake & Output 01/31/20 02/01/20 02/01/20 18:59 06:59 18:59 Intake Total 480 360 Output Total 0 200 0 Balance 480 -200 360 Weight 105 kg 104 kg Intake: Oral 480 360 Output: Urine 200 Stool 0 0 0 Other: Voiding Method Incontinent Incontinent Incontinent Indwelling Catheter Indwelling Catheter Indwelling Catheter - Labs CBC & Chem 7: 01/31/20 06:45 02/01/20 07:07 Labs: Abnormal Lab Results - Last 24 Hours (Table) 01/31/20 01/31/20 02/01/20 Range/Units 16:35 20:30 07:07 Sodium 132 L (137-145) mmol/L BUN 24 H (7-17) mg/dL Creatinine 1.17 H (0.52-1.04) mg/dL Glucose 121 H (74-99) mg/dL POC Glucose (mg/dL) 212 H 246 H (75-99) mg/dL Calcium 7.8 L (8.4-10.2) mg/dL 02/01/20 Range/Units 11:48 Sodium (137-145) mmol/L BUN (7-17) mg/dL Creatinine (0.52-1.04) mg/dL Glucose (74-99) mg/dL POC Glucose (mg/dL) 168 H (75-99) mg/dL Calcium (8.4-10.2) mg/dL Assessment and Plan (1) Anemia Current Visit: Yes Status: Acute Code(s): D64.9 - ANEMIA, UNSPECIFIED SNOMED Code(s): 488655789 (2) COVID-19 Current Visit: Yes Status: Acute Code(s): U07.1 - COVID-19 SNOMED Code(s): 240941373 (3) GI bleed Current Visit: Yes Status: Acute Code(s): K92.2 - GASTROINTESTINAL HEMORRHAGE, UNSPECIFIED SNOMED Code(s): 22137653 (4) BERNIE (acute kidney injury) Current Visit: No Status: Acute Code(s): N17.9 - ACUTE KIDNEY FAILURE, UNSPECIFIED SNOMED Code(s): 41197225 (5) Chronic liver disease Current Visit: No Status: Acute Code(s): K76.9 - LIVER DISEASE, UNSPECIFIED SNOMED Code(s): 823299599 (6) Obesity Current Visit: No Status: Acute Code(s): E66.9 - OBESITY, UNSPECIFIED SNOMED Code(s): 522929837
[2020-02-01] MEDS: MULTIVITAMINS, THERA 1 EACH TAB PO SCH (15:12)
[2020-02-01] MEDS: THIAMINE 100 MG TAB PO SCH (15:12)
[2020-02-01 17:15] LABS: Glucose,Whole Blood 235 mg/dL (75-99)
[2020-02-01 20:11] LABS: Glucose,Whole Blood 219 mg/dL (75-99)
--- NOTE | 2020-02-01 22:59 | P.PN ---
Subjective Progress Note Date: 02/01/20 Principal diagnosis: -Acute lower GI bleed, felt to be from ascending colon -right colectomy, repair of incisional hernia, partial omentectomy. -Acute blood loss anemia from GI bleed,-receive a total of 4 units of blood -Chronic congestive heart failure from diastolic dysfunction EF 55-60% -COPD in an ex-smoker -Diabetes mellitus type 2 on oral hypoglycemic -Chronic fibromyalgia -Hyperlipidemia -Essential hypertension -Chronic kidney disease stage III from diabetic nephropathy and hypertensive nephrosclerosis -Rheumatoid arthritis -History of breast cancer with a right-sided mastectomy -Peripheral neuropathy secondary to diabetes -Chronic anxiety depression -Obesity -Liver cirrhosis with portal hypertension on Xifaxan -Pancytopenia from cirrhosis -Patient has a legal guardian-Calvin Whipple -Acute kidney injury-possibly prerenal. Creatinine increased from 1.2 up to 1.8, improving -Hyperkalemia . 02/01/2020, patient seen eval examined during the rounds labs reviewed medications reviewed, patient remains afebrile with stable oxygen saturation is stable hemodynamics, absolute reviewed potassium is normalized with improvement in BUN/creatinine noted, patient has been on liquid diet tolerating well, general surgery has been following, This is a 70 year patient currently at [facility] being sent by Dr. Han. Chronic stable medical conditions include CHF EF 55-60%, COPD, diabetes, fibromyalgia, hyperlipidemia, hypertension, chronic kidney disease stage III, rheumatoid arthritis, history of breast cancer with right sided mastectomy, peripheral neuropathy, chronic anxiety depression, liver cirrhosis with portal hypertension.uses a wheelchair to get about Patient was recently discharged from the hospital on December 25. admitted feeling weak tired rundown. Had 2 maroon stools in the hospital. In August of this year patient had undergone EGD and colonoscopy. Showing diverticulosis. Small bowel capsule study was also unremarkable. Source was felt to be from diverticulosis.. tagged RBC scan. Negative. Last admission patient refuses endoscopy.. Patient now presents to the [facility] as she had 3 episodes of stools with bright red blood with blood clots. Hemoglobin drawn a couple of days ago was 6.6. Patient felt weak and tired. No abdominal pain. No nausea vomiting. admitted with acute GI bleed-initially refused endoscopy. After counseling is agreed for endoscopy. EGD-unremarkable. Colonoscopy-fresh blood throughout the colon.It is believed that the bleeding is coming from the right colon. Patient may need a partial/right colectomy.. Dr. Seaman- got okay from the legal guardian to proceed with surgery. January [id number] colectomy, repair of incisional hernia, partial omentectomy. Objective - Vital Signs Vital signs: Vital Signs Temp 98.2 F 02/01/20 20:00 Pulse 92 02/01/20 20:00 Resp 20 02/01/20 20:00 BP 125/60 02/01/20 20:00 Pulse Ox 94 L 02/01/20 15:10 Intake & Output 02/01/20 02/01/20 02/02/20 06:59 18:59 06:59 Intake Total 596 Output Total 200 500 Balance -200 96 Weight 104 kg Intake: Oral 596 Output: Urine 200 500 Straight 200 Stool 0 0 Other: Voiding Method Incontinent Incontinent Incontinent Indwelling Catheter Indwelling Catheter Indwelling Catheter # Bowel Movements 1 - Exam GENERAL: Sitting up in a chair, awake EYES: Pupils equal. Conjunctiva pale. NECK: JVD unable to assess; masses not palpable. HEART: First and second heart sounds are normal; mild edema. LUNGS: Respiratory rate increased; decreased breath sounds. ABDOMEN: Abdominal binder in place, tender. Decreased bowel sounds PSYCH: Awake, answering questions NEUROLOGICAL: Cranial nerves grossly intact; no facial asymmetry, decreased power lower extremity. - Labs CBC & Chem 7: 01/31/20 06:45 02/01/20 07:07 Labs: Abnormal Lab Results - Last 24 Hours (Table) 02/01/20 02/01/20 02/01/20 Range/Units 07:07 11:48 17:08 Sodium 132 L (137-145) mmol/L BUN 24 H (7-17) mg/dL Creatinine 1.17 H (0.52-1.04) mg/dL Glucose 121 H (74-99) mg/dL POC Glucose (mg/dL) 168 H 235 H (75-99) mg/dL Calcium 7.8 L (8.4-10.2) mg/dL 02/01/20 Range/Units 20:08 Sodium (137-145) mmol/L BUN (7-17) mg/dL Creatinine (0.52-1.04) mg/dL Glucose (74-99) mg/dL POC Glucose (mg/dL) 219 H (75-99) mg/dL Calcium (8.4-10.2) mg/dL Assessment and Plan Assessment: -Acute lower GI bleed, felt to be from ascending colon as per tagged RBC scan EGD colonoscopy results . -right colectomy, repair of incisional hernia, partial omentectomy. -Acute blood loss anemia from GI bleed,-receive a total of 4 units of blood -Chronic congestive heart failure from diastolic dysfunction EF 55-60% -COPD in an ex-smoker -Diabetes mellitus type 2 on oral hypoglycemic -Chronic fibromyalgia -Hyperlipidemia -Essential hypertension -Chronic kidney disease stage III from diabetic nephropathy and hypertensive nephrosclerosis -Rheumatoid arthritis -History of breast cancer with a right-sided mastectomy -Peripheral neuropathy secondary to diabetes -Chronic anxiety depression -Obesity -Liver cirrhosis with portal hypertension on Xifaxan -Pancytopenia from cirrhosis -Patient has a legal guardian-Calvin Whipple -Acute kidney injury-possibly prerenal. Creatinine increased from 1.2 up to 1.8, improving -Hyperkalemia . Plan: We'll continue clear liquid diet, patient likely will need placement ECF, continue supportive care, further recommendations pending plan of care as per clinical response of the patient Time with Patient: Greater than 30
[2020-02-02] MEDS: HYDROmorphone 0.5 MG/0.5 ML SYRINGE IVP PRN ×3 (02:44→21:34)
[2020-02-02 06:18] LABS: Glucose,Whole Blood 204 mg/dL (75-99)
[2020-02-02] MEDS: ONDANSETRON 4 MG/2 ML VIAL IVP PRN ×2 (06:18→21:40)
[2020-02-02] MEDS: HYDROcodone/APAP 10-325MG 1 EACH TAB PO PRN ×2 (08:20→17:22)
[2020-02-02] MEDS: SERTRALINE 25 MG TAB PO SCH (08:20)
[2020-02-02] MEDS: ANASTROZOLE 1 MG TAB PO SCH (08:20)
[2020-02-02] MEDS: SODIUM CHLORIDE 0.9% 1,000 ML IV SCH ×3 (08:21→19:23)
[2020-02-02] MEDS: FOLIC ACID 1 MG TAB PO SCH (08:21)
[2020-02-02] MEDS: ASCORBIC ACID 500 MG TAB PO SCH (08:21)
[2020-02-02] MEDS: GABAPENTIN 100 MG CAP PO SCH ×3 (08:21→21:33)
[2020-02-02] MEDS: ZINC SULFATE 220 MG CAP PO SCH (08:21)
[2020-02-02] MEDS ORDERED: ERGOCALCIFEROL 50,000 UNIT CAP PO SCH (09:00)
[2020-02-02 12:46] LABS: Glucose,Whole Blood 160 mg/dL (75-99)
[2020-02-02 13:25] VITALS: BMI 38.1
[2020-02-02] MEDS: THIAMINE 100 MG TAB PO SCH (15:41)
[2020-02-02] MEDS: MULTIVITAMINS, THERA 1 EACH TAB PO SCH (15:41)
--- NOTE | 2020-02-02 16:27 | P.PN ---
Subjective Progress Note Date: 02/02/20 CHIEF COMPLAINT: GI bleed HISTORY OF PRESENT ILLNESS: The patient is a 70-year-old female status post ri ght hemicolectomy, 01/27/20. She is sitting up. She is more comfortable. Abdominal binder needs to be adjusted. She is awaiting discharge. ROS: No reports of nausea and vomiting. No fevers or chills. PHYSICAL EXAM: VITAL SIGNS: Reviewed CONSTITUTIONAL: Well developed and in no acute distress. EYES: Conjuctivae without sclera icterus. Extraocular movements grossly intact. HEAD, EARS, NOSE, THROAT: Moist buccal mucosa. Head is atraumatic, normocephalic. Hears conversational speech. No nasal drainage. NECK: No thyroidomegaly. RESPIRATORY: Non-labored respirations and equal bilateral excursions. CARDIOVASCULAR: Palpable 2+ radial pulses. ABDOMEN: Protuberant. Abdominal binder present. MUSCULOSKELETAL: No gross deformity of the lower extremities noted. No clubbing. No cyanosis. SKIN: Good skin turgor. Well perfused. NEUROLOGIC: Cranial nerves II through XII grossly intact. No focal or lateralizing signs. PSYCH: Appropriate affect. Alert and oriented to person, place and time. CLINICAL LABS: No new labs. ASSESSMENT: 1. Status post right hemicolectomy for GI bleed 2. COVID-19 positive 3. Chronic pain syndrome PLAN: 1. Patient is stable for discharge 2. Recommend bariatric sized binder Objective - Vital Signs Vital signs: Vital Signs Temp 98.1 F 02/02/20 15:40 Pulse 87 02/02/20 15:40 Resp 18 02/02/20 15:40 BP 92/50 02/02/20 15:40 Pulse Ox 90 L 02/02/20 15:40 Intake & Output 02/01/20 02/02/20 02/02/20 18:59 06:59 18:59 Intake Total 596 486 Output Total 500 760 200 Balance 96 -760 286 Weight 104 kg Intake: Oral 596 486 Output: Urine 500 760 200 Straight 200 200 Stool 0 0 Other: Voiding Method Incontinent Incontinent Incontinent Indwelling Catheter Indwelling Catheter Indwelling Catheter # Bowel Movements 1 1 1 - Labs CBC & Chem 7: 01/31/20 06:45 02/01/20 07:07 Labs: Abnormal Lab Results - Last 24 Hours (Table) 02/01/20 02/01/2002/01/20 Range/Units 17:08 20:08 06:16 POC Glucose (mg/dL) 235 H 219 H 204 H (75-99) mg/dL 02/02/20 Range/Units 12:38 POC Glucose (mg/dL) 160 H (75-99) mg/dL Assessment and Plan (1) Anemia Current Visit: Yes Status: Acute Code(s): D64.9 - ANEMIA, UNSPECIFIED SNOMED Code(s): 738338203 (2) COVID-19 Current Visit: Yes Status: Acute Code(s): U07.1 - COVID-19 SNOMED Code(s): 302702711 (3) GI bleed Current Visit: Yes Status: Acute Code(s): K92.2 - GASTROINTESTINAL HEMORRHAGE, UNSPECIFIED SNOMED Code(s): 70026608 (4) BERNIE (acute kidney injury) Current Visit: No Status: Acute Code(s): N17.9 - ACUTE KIDNEY FAILURE, UNSPECIFIED SNOMED Code(s): 53831945 (5) Chronic liver disease Current Visit: No Status: Acute Code(s): K76.9 - LIVER DISEASE, UNSPECIFIED SNOMED Code(s): 404112956 (6) Obesity Current Visit: No Status: Acute Code(s): E66.9 - OBESITY, UNSPECIFIED SNOMED Code(s): 709034211
[2020-02-02 16:34] LABS: Glucose,Whole Blood 200 mg/dL (75-99)
[2020-02-02] MEDS: INSULIN ASPART (NovoLOG) 100 UNIT/ML VIAL SQ SCH ×2 (19:23→21:34)
[2020-02-02 20:23] LABS: Glucose,Whole Blood 192 mg/dL (75-99)
[2020-02-02] MEDS ORDERED: INSULIN DETEMIR (LEVEMIR) 100 UNIT/ML SYR SQ SCH (21:00)
--- NOTE | 2020-02-02 22:35 | P.PN ---
Subjective Progress Note Date: 02/02/20 Principal diagnosis: -Acute lower GI bleed, felt to be from ascending colon -right colectomy, repair of incisional hernia, partial omentectomy. -Acute blood loss anemia from GI bleed,-receive a total of 4 units of blood -Chronic congestive heart failure from diastolic dysfunction EF 55-60% -COPD in an ex-smoker -Diabetes mellitus type 2 on oral hypoglycemic -Chronic fibromyalgia -Hyperlipidemia -Essential hypertension -Chronic kidney disease stage III from diabetic nephropathy and hypertensive nephrosclerosis -Rheumatoid arthritis -History of breast cancer with a right-sided mastectomy -Peripheral neuropathy secondary to diabetes -Chronic anxiety depression -Obesity -Liver cirrhosis with portal hypertension on Xifaxan -Pancytopenia from cirrhosis -Patient has a legal guardian-Calvin Whipple -Acute kidney injury-possibly prerenal. Creatinine increased from 1.2 up to 1.8, improving -Hyperkalemia . 02/02/2020, patient seen eval examined during the rounds labs reviewed medications reviewed, is awake and alert on room air breathing comfortably denies any chest pain, patient is a resident of [facility] likely will be transferred in the morning, patient is status post right hemicolectomy for massive significant GI bleeding 02/01/2020, patient seen eval examined during the rounds labs reviewed medications reviewed, patient remains afebrile with stable oxygen saturation is stable hemodynamics, absolute reviewed potassium is normalized with improvement in BUN/creatinine noted, patient has been on liquid diet tolerating well, general surgery has been following, This is a 70 year patient currently at [facility] being sent by Dr. Han. Chronic stable medical conditions include CHF EF 55-60%, COPD, diabetes, fibromyalgia, hyperlipidemia, hypertension, chronic kidney disease stage III, rheumatoid arthritis, history of breast cancer with right sided mastectomy, peripheral neuropathy, chronic anxiety depression, liver cirrhosis with portal hypertension.uses a wheelchair to get about Patient was recently discharged from the hospital on December 25. admitted feeling weak tired rundown. Had 2 maroon stools in the hospital. In August of this year patient had undergone EGD and colonoscopy. Showing diverticulosis. Small bowel capsule study was also unremarkable. Source was felt to be from diverticulosis.. tagged RBC scan. Negative. Last admission patient refuses endoscopy.. Patient now presents to the [facility] as she had 3 episodes of stools with bright red blood with blood clots. Hemoglobin drawn a couple of days ago was 6.6. Patient felt weak and tired. No abdominal pain. No nausea vomiting. admitted with acute GI bleed-initially refused endoscopy. After counseling is agreed for endoscopy. EGD-unremarkable. Colonoscopy-fresh blood throughout the colon.It is believed that the bleeding is coming from the right colon. Patient may need a partial/right colectomy.. Dr. Seaman- got okay from the legal guardian to proceed with surgery. January 2606-[id number] colectomy, repair of incisional hernia, partial omentectomy. Objective - Vital Signs Vital signs: Vital Signs Temp 98 F 02/02/20 20:00 Pulse 97 02/02/20 20:00 Resp 18 02/02/20 20:00 BP 129/64 02/02/20 20:00 Pulse Ox 92 L 02/02/20 20:00 Intake & Output 02/02/20 02/02/20 02/03/20 06:59 18:59 06:59 Intake Total 906 240 Output Total 760 200 100 Balance -760 706 140 Weight 104 kg Intake: Oral 906 240 Output: Urine 760 200 100 Straight 200 Stool 0 Other: Voiding Method Incontinent Incontinent Indwelling Catheter Indwelling Catheter Indwelling Catheter # Bowel Movements 1 1 - Exam GENERAL: Sitting up in a chair, awake EYES: Pupils equal. Conjunctiva pale. NECK: JVD unable to assess; masses not palpable. HEART: First and second heart sounds are normal; mild edema. LUNGS: Respiratory rate increased; decreased breath sounds. ABDOMEN: Abdominal binder in place, tender. Decreased bowel sounds PSYCH: Awake, answering questions NEUROLOGICAL: Cranial nerves grossly intact; no facial asymmetry, decreased power lower extremity. - Labs CBC & Chem 7: 01/31/20 06:45 02/01/20 07:07 Labs: Abnormal Lab Results - Last 24 Hours (Table) 02/02/20 02/02/20 02/02/20 Range/Units 06:16 12:38 16:33 POC Glucose (mg/dL) 204 H 160 H 200 H (75-99) mg/dL 02/02/20 Range/Units 20:10 POC Glucose (mg/dL) 192 H (75-99) mg/dL Assessment and Plan Assessment: -Acute lower GI bleed, felt to be from ascending colon as per tagged RBC scan EGD colonoscopy results . Status post right hemicolectomy -right colectomy, repair of incisional hernia, partial omentectomy. -Acute blood loss anemia from GI bleed,-receive a total of 4 units of blood -Chronic congestive heart failure from diastolic dysfunction EF 55-60% -COPD in an ex-smoker -Diabetes mellitus type 2 on oral hypoglycemic -Chronic fibromyalgia -Hyperlipidemia -Essential hypertension -Chronic kidney disease stage III from diabetic nephropathy and hypertensive nephrosclerosis -Rheumatoid arthritis -History of breast cancer with a right-sided mastectomy -Peripheral neuropathy secondary to diabetes -Chronic anxiety depression -Obesity -Liver cirrhosis with portal hypertension on Xifaxan -Pancytopenia from cirrhosis -Patient has a legal guardian-Calvin Whipple -Acute kidney injury-possibly prerenal. Creatinine increased from 1.2 up to 1.8, improving -Hyperkalemia . Plan: We'll continue clear liquid diet, patient likely will need placement ECF, co ntinue supportive care, further recommendations pending plan of care as per clinical response of the patient, likely discharge in next 24 hours Time with Patient: Greater than 30
[2020-02-03] MEDS: HYDROmorphone 0.5 MG/0.5 ML SYRINGE IVP PRN (03:09)
[2020-02-03 06:24] LABS: Glucose,Whole Blood 158 mg/dL (75-99)
[2020-02-03] MEDS: INSULIN ASPART (NovoLOG) 100 UNIT/ML VIAL SQ SCH ×2 (06:31→12:17)
[2020-02-03] MEDS: GABAPENTIN 100 MG CAP PO SCH (08:40)
[2020-02-03] MEDS: FOLIC ACID 1 MG TAB PO SCH (08:40)
[2020-02-03] MEDS: ASCORBIC ACID 500 MG TAB PO SCH (08:40)
[2020-02-03] MEDS: SERTRALINE 25 MG TAB PO SCH (08:40)
[2020-02-03] MEDS: ZINC SULFATE 220 MG CAP PO SCH (08:40)
[2020-02-03] MEDS: ONDANSETRON 4 MG TAB PO PRN (08:40)
[2020-02-03 10:21] VITALS: RESP 20
[2020-02-03] MEDS: HYDROcodone/APAP 10-325MG 1 EACH TAB PO PRN (11:19)
[2020-02-03] MEDS: ANASTROZOLE 1 MG TAB PO SCH (11:19)
--- NOTE | 2020-02-03 11:51 | P.PN ---
Subjective Progress Note Date: 02/03/20 CHIEF COMPLAINT: GI bleed HISTORY OF PRESENT ILLNESS: Patient is postop day #7 status post right colectom y, repair of incisional hernia and partial omentectomy for GI bleed and incarcerated ventral hernia. Patient does report some abdominal pain. Denies any nausea or vomiting. She is passing gas and having bowel movements. She is tolerating a low fiber diet. She is afebrile. No new labs for today PHYSICAL EXAM: VITAL SIGNS: Reviewed. GENERAL: Well-developed in no acute distress. HEENT: No sclera icterus. Extraocular movements grossly intact. Moist buccal mucosa. Head is atraumatic, normocephalic. ABDOMEN: Soft. Nondistended. Dressing clean dry and intact NEUROLOGIC: Alert and oriented. Cranial nerves II through XII grossly intact. ASSESSMENT: 1. Acute GI bleed status post right colectomy 2. Incisional hernia status post repair 3. Acute blood loss anemia secondary to GI bleed 4. Diabetes mellitus type 2 5. Chronic kidney disease 6. History of liver cirrhosis with portal hypertension 7. Hyperkalemia resolved 8. COVID positive PLAN: -Patient can be discharge from surgical standpoint -Recommend follow-up with Dr. Seaman in 1 week -Continue low fiber -Continue pain medication as needed -Consult PT OT -Encourage incentive spirometer use Physician [employer] note has been reviewed by physician. Signing provider agrees with the documented findings, assessment, and plan of care. Objective - Vital Signs Vital signs: Vital Signs Temp 98.2 F 02/03/20 11:24 Pulse 67 02/03/20 11:24 Resp 20 02/03/20 11:24 BP 100/54 02/03/20 11:24 Pulse Ox 90 L 02/03/20 11:24 Intake & Output 02/02/20 02/03/20 02/03/20 18:59 06:59 18:59 Intake Total 906 480 120 Output Total 200 400 Balance 706 80 120 Weight 104 kg Intake: Oral 906 480 120 Output: Urine 200 400 Straight 100 Stool 0 Other: Voiding Method Incontinent Indwelling Catheter Indwelling Catheter # Bowel Movements 1 - Labs CBC & Chem 7: 01/31/20 06:45 02/01/20 07:07 Labs: Abnormal Lab Results - Last 24 Hours (Table) 02/02/20 02/02/20 02/02/20 Range/Units 12:38 16:33 20:10 POC Glucose (mg/dL) 160 H 200 H 192 H (75-99) mg/dL 02/03/20 Range/Units 06:07 POC Glucose (mg/dL) 158 H (75-99) mg/dL
[2020-02-03 12:01] LABS: Glucose,Whole Blood 141 mg/dL (75-99)
--- NOTE | 2020-02-03 12:23 | P.DS ---
Providers Date of admission: 01/19/20 14:00 Expected date of discharge: 02/03/20 Attending physician: Guy Griffith Consults: 01/23/20 16:10 Consult Physician Routine Consulting Provider: Virgilio Seaman Consult Reason/Comments: GI bleed Do you want consulting provider notified?: Yes Primary care physician: Tom [facility] Course: 02/03/2020, patient seen and evaluated examined during the rounds labs reviewed medications reviewed, oxygen saturation remained stable 90% on room air, on 2 L is 97%, hemodynamic status stable, remains afebrile, patient is being transferr ed to [facility] later on today 02/02/2020, patient seen eval examined during the rounds labs reviewed medications reviewed, is awake and alert on room air breathing comfortably denies any chest pain, patient is a resident of [facility] likely will be transferred in the morning, patient is status post right hemicolectomy for massive significant GI bleeding 02/01/2020, patient seen eval examined during the rounds labs reviewed medications reviewed, patient remains afebrile with stable oxygen saturation is stable hemodynamics, absolute reviewed potassium is normalized with improvement in BUN/creatinine noted, patient has been on liquid diet tolerating well, general surgery has been following, This is a 70 year patient currently at [facility] being sent by Dr. Han. Chronic stable medical conditions include CHF EF 55-60%, COPD, diabetes, fibromyalgia, hyperlipidemia, hypertension, chronic kidney disease stage III, rheumatoid arthritis, history of breast cancer with right sided mastectomy, peripheral neuropathy, chronic anxiety depression, liver cirrhosis with portal hypertension.uses a wheelchair to get about Patient was recently discharged from the hospital on December 25. admitted feeling weak tired rundown. Had 2 maroon stools in the hospital. In August of this year patient had undergone EGD and colonoscopy. Showing diverticulosis. Small bowel capsule study was also unremarkable. Source was felt to be from diverticulosis.. tagged RBC scan. Negative. Last admission patient refuses endoscopy.. [facility] as she had 3 episodes of stools with bright red blood with blood clots. Hemoglobin drawn a couple of days ago was 6.6. Patient felt weak and tired. No abdominal pain. No nausea vomiting. admitted with acute GI bleed-initially refused endoscopy. After counseling is agreed for endoscopy. EGD-unremarkable. Colonoscopy-fresh blood throughout the colon.It is believed that the bleeding is coming from the right colon. Patient may need a partial/right colectomy.. Dr. Seaman- got okay from the legal guardian to proceed with surgery. January 2638-[id number] colectomy, repair of incisional hernia, partial omentectomy. Assessment: -Acute lower GI bleed, felt to be from ascending colon -right colectomy, repair of incisional hernia, partial omentectomy. -Acute blood loss anemia from GI bleed,-receive a total of 4 units of blood -Chronic congestive heart failure from diastolic dysfunction EF 55-60% -COPD in an ex-smoker -Diabetes mellitus type 2 on oral hypoglycemic -Chronic fibromyalgia -Hyperlipidemia -Essential hypertension -Chronic kidney disease stage III from diabetic nephropathy and hypertensive nephrosclerosis -Rheumatoid arthritis -History of breast cancer with a right-sided mastectomy -Peripheral neuropathy secondary to diabetes -Chronic anxiety depression -Obesity -Liver cirrhosis with portal hypertension on Xifaxan -Pancytopenia from cirrhosis -Patient has a legal guardian-Calvin Whipple -Acute kidney injury-possibly prerenal. Creatinine increased from 1.2 up to 1.8, improving -Hyperkalemia . Procedures: Status post partial right colectomy Patient Condition at Discharge: Fair Plan - Discharge Summary Discharge Rx Participant: No New Discharge Prescriptions: Continue Anastrozole [Arimidex] 1 mg PO DAILY@0900 Sennosides [Senna] 8.6 mg PO BID@0900,2100 Pantoprazole [Protonix] 40 mg PO DAILY@0600 Ferrous Sulfate [Iron (65 MG Elemental)] 325 mg PO DAILY@0900 Ergocalciferol (Vitamin D2) [Drisdol] 50,000 unit PO Q14D@0900 Acetaminophen [Tylenol] 650 mg PO Q4H PRN PRN Reason: Fever And/ Or Pain Dextran 70/Hypromellose [Genteal Tears 0.1%-0.3% Drop] 1 drop BOTH EYES Q12H PRN PRN Reason: Dry Eye(S)/redness Rifaximin [Xifaxan] 550 mg PO BID@0900,2100 Lactulose 20 gm PO BID@0900,2100 Thiamine [Vitamin B-1] 100 mg PO DAILY@1500 Multivitamins, Thera [Multivitamin (formulary)] 1 tab PO DAILY@1500 Folic Acid 1 mg PO DAILY@0900 Melatonin 10 mg PO HS PRN PRN Reason: Insomnia Oxymetazoline 0.05% Nasl [place] [Afrin 0.05% Nasal [place]] 1 spray NASAL Q15M PRN MDD 3 DOSES PRN Reason: BLOODY NOSE Insulin Aspart [Insulin Aspart Flexpen] See Protocol SQ AC-TID Insulin Aspart [Insulin Aspart Flexpen] 4 unit SQ AC-TID Metoprolol Tartrate [Lopressor] 12.5 mg PO BID@899,2099 #0 Gabapentin [Neurontin] 200 mg PO TID@0900,1499,2099 #9 cap HYDROcodone/APAP 10-325MG [Citronelle 10-325] 1 tab PO Q6HR PRN 3 Days #12 tab PRN Reason: Pain Ascorbic Acid [Vitamin C] 500 mg PO DAILY@0900 Azithromycin 250 mg PO DAILY@0900 metOLazone [Zaroxolyn] 5 mg PO DAILY@0900 Sertraline HCl [Zoloft] 25 mg PO DAILY@09 Spironolactone [Aldactone] 50 mg PO DAILY@899 Zinc 50 mg PO DAILY@00 #30 tab Discontinued Ondansetron [Zofran] 4 mg PO TID PRN PRN Reason: Nausea And Vomiting Insulin Glargine,Hum.rec.anlog [Lantus Solostar] 15 unit SQ HS@2099 Discharge Medication List Anastrozole [Arimidex] 1 mg PO DAILY@0909/30/14 [History] Sennosides [Senna] 8.6 mg PO BID@09,209904/02/18 [History] Pantoprazole [Protonix] 40 mg PO DAILY@0607/02/18 [History] Ferrous Sulfate [Iron (65 MG Elemental)] 325 mg PO DAILY@0908/16/18 [History] Ergocalciferol (Vitamin D2) [Drisdol] 50,000 unit PO Q14D@89907/19/19 [History] Acetaminophen [Tylenol] 650 mg PO Q4H PRN 08/24/19 [History] Dextran 70/Hypromellose [Genteal Tears 0.1%-0.3% Drop] 1 drop BOTH EYES Q12H PRN 08/24/19 [History] Folic Acid 1 mg PO DAILY@0908/24/19 [History] Lactulose 20 gm PO BID@0900,209908/24/19 [History] Multivitamins, Thera [Multivitamin (formulary)] 1 tab PO DAILY@1500 08/24/19 [History] Rifaximin [Xifaxan] 550 mg PO BID@0900,209908/24/19 [History] Thiamine [Vitamin B-1] 100 mg PO DAILY@1500 08/24/19 [History] Melatonin 10 mg PO HS PRN 10/25/19 [History] Oxymetazoline 0.05% Nasl [place] [Afrin 0.05% Nasal [place]] 1 spray NASAL Q15M PRN MDD 3 DOSES 10/25/19 [History] Insulin Aspart [Insulin Aspart Flexpen] 4 unit SQ AC-TID 12/21/19 [History] Insulin Aspart [Insulin Aspart Flexpen] See Protocol SQ AC-TID 12/21/19 [History] Gabapentin [Neurontin] 200 mg PO TID@0900,1499,2099 #9 cap 12/26/19 [Rx] HYDROcodone/APAP 10-325MG [Citronelle 10-325] 1 tab PO Q6HR PRN 3 Days #12 tab 12/26/19 [Rx] Metoprolol Tartrate [Lopressor] 12.5 mg PO BID@899,2099 #0 12/26/19 [Rx] Ascorbic Acid [Vitamin C] 500 mg PO DAILY@89901/19/20 [History] Azithromycin 250 mg PO DAILY@89901/19/20 [History] Sertraline HCl [Zoloft] 25 mg PO DAILY@89901/19/20 [History] Spironolactone [Aldactone] 50 mg PO DAILY@89901/19/20 [History] metOLazone [Zaroxolyn] 5 mg PO DAILY@89901/19/20 [History] Zinc 50 mg PO DAILY@00 #30 tab 02/03/20 [Rx] Follow up Appointment(s)/Referral(s): Tom Han MD [Primary Care Provider] - 1-2 days Virgilio Seaman MD [STAFF PHYSICIAN] - 1 Week Activity/Diet/Wound Care/Special Instructions: No driving while taking Citronelle No lifting over 10 pounds You may shower. No soaking or tub baths for 2 weeks Very light activity until you are reevaluated at your follow up appointment with your surgeon
[2020-02-03 16:17] VITALS: BP 105/77; PULSE 88; TEMP 96.2
== END 2020-02-03 16:36 | DRG 329 ==
LOC: EC 11:45 → 3SCARD 14:00
PROVIDERS: ADMIT Hospitalist; ATTEND Hospitalist
PROC: 05HF33Z Insertion of Infusion Device into Left Cephalic Vein, Percutaneous Approach (ICD-10-PCS; 2020-01-19)
PROC: 30233N1 Transfusion of Nonautologous Red Blood Cells into Peripheral Vein, Percutaneous Approach (ICD-10-PCS; 2020-01-23)
PROC: 0DJD8ZZ Inspection of Lower Intestinal Tract, Via Natural or Artificial Opening Endoscopic (ICD-10-PCS; 2020-01-23 12:10)
PROC: 0DJ08ZZ Inspection of Upper Intestinal Tract, Via Natural or Artificial Opening Endoscopic (ICD-10-PCS; 2020-01-23 12:10)
PROC: 0WQF0ZZ Repair Abdominal Wall, Open Approach (ICD-10-PCS; principal; 2020-01-27 10:15)
PROC: 0DTF0ZZ Resection of Right Large Intestine, Open Approach (ICD-10-PCS; principal; 2020-01-27 10:15)
PROC: 0DBU0ZZ Excision of Omentum, Open Approach (ICD-10-PCS; principal; 2020-01-27 10:15)
DX: K57.31 Diverticulosis of large intestine without perforation or abscess with bleeding (principal); U07.1 COVID-19; D62 Acute posthemorrhagic anemia; I13.0 Hypertensive heart and chronic kidney disease with heart failure and stage 1 through stage 4 chronic kidney disease, or unspecified chronic kidney disease; I50.32 Chronic diastolic (congestive) heart failure; K76.6 Portal hypertension; N17.9 Acute kidney failure, unspecified; K43.6 Other and unspecified ventral hernia with obstruction, without gangrene; D61.818 Other pancytopenia; E78.5 Hyperlipidemia, unspecified; E66.9 Obesity, unspecified; E11.42 Type 2 diabetes mellitus with diabetic polyneuropathy; E11.22 Type 2 diabetes mellitus with diabetic chronic kidney disease; E87.5 Hyperkalemia; F41.8 Other specified anxiety disorders; G40.909 Epilepsy, unspecified, not intractable, without status epilepticus; G89.4 Chronic pain syndrome; J44.9 Chronic obstructive pulmonary disease, unspecified; K74.60 Unspecified cirrhosis of liver; M79.7 Fibromyalgia; N18.30 Chronic kidney disease, stage 3 unspecified; K20.90 Esophagitis, unspecified without bleeding; M06.9 Rheumatoid arthritis, unspecified; Z79.811 Long term (current) use of aromatase inhibitors; Z79.4 Long term (current) use of insulin; Z79.899 Other long term (current) drug therapy; Z80.1 Family history of malignant neoplasm of trachea, bronchus and lung; Z87.891 Personal history of nicotine dependence; Z90.11 Acquired absence of right breast and nipple; Z90.710 Acquired absence of both cervix and uterus; Z85.3 Personal history of malignant neoplasm of breast; Z82.5 Family history of asthma and other chronic lower respiratory diseases; Z80.3 Family history of malignant neoplasm of breast; Z83.3 Family history of diabetes mellitus; Z88.1 Allergy status to other antibiotic agents; Z88.5 Allergy status to narcotic agent; Z88.0 Allergy status to penicillin; Z88.8 Allergy status to other drugs, medicaments and biological substances; Z90.49 Acquired absence of other specified parts of digestive tract; Z90.89 Acquired absence of other organs; Z98.890 Other specified postprocedural states; Z98.51 Tubal ligation status; Z68.38 Body mass index [BMI] 38.0-38.9, adult
CPT/HCPCS: 36410; 36415; 43235; 45378; 76937; 78278; 80048; 80053; 83605; 83735; 84132; 84484; 85025; 85027; 85610; 85730; 86850; 86870; 86880; 86900; 86901; 86920; 87635; 88307; 93005; 96374; 99285

== ENCOUNTER 2020-02-05 19:31 | Inpatient (IN) | payer MEDICARE, OTHER ==
--- NOTE | 2020-02-05 21:00 | ED ---
Recheck HPI - General Chief Complaint: Recheck/Abnormal Lab/Rx Stated Complaint: low hemoglobin Time Seen by Provider: 02/05/20 19:40 Source: patient, EMS Mode of arrival: EMS Limitations: no limitations - History of Present Illness Initial Comments: 70 year-old female patient presents for evaluation of low hemoglobin. Patient was admitted recently for GI bleed and was found to have bleeding from the right colon. She underwent colon resection and was discharged to [facility] on 02/02. Patient states she is having increased abdominal pain. Denies any bloody stools or black stools that she knows of. Denies any use of blood thinning medications. She has had to have blood transfusion in the past. She denies any fever or chills. Denies vomiting or diarrhea. Patient denies any recent rash, cough, shortness of breath, chest pain, nausea, vomiting, diarrhea, constipation, back pain, numbness, tingling, dizziness, weakness, hematuria, dysuria, urinary urgency, urinary frequency, headache, visual changes, or any other complaints. - Related Data Home Medications Medication Instructions Recorded Confirmed Anastrozole [Arimidex] 1 mg PO DAILY@0900 09/30/14 02/05/20 Sennosides [Senna] 8.6 mg PO BID@09,209904/02/18 02/05/20 Pantoprazole [Protonix] 40 mg PO DAILY@0600 07/02/18 02/05/20 Ferrous Sulfate [Iron (65 MG 325 mg PO DAILY@0900 08/16/18 02/05/20 Elemental)] Acetaminophen [Tylenol] 650 mg PO Q4H PRN 08/24/19 02/05/20 Dextran 70/Hypromellose [Genteal 1 drop BOTH EYES Q12H PRN 08/24/19 02/05/20 Tears 0.1%-0.3% Drop] Folic Acid 1 mg PO DAILY@0900 08/24/19 02/05/20 Lactulose 20 gm PO BID@0900,209908/24/19 02/05/20 Multivitamins, Thera [Multivitamin 1 tab PO DAILY@1500 08/24/19 02/05/20 (formulary)] Rifaximin [Xifaxan] 550 mg PO BID@0900,209908/24/19 02/05/20 Thiamine [Vitamin B-1] 100 mg PO DAILY@1600 08/24/19 02/05/20 Melatonin 10 mg PO HS PRN 10/25/19 02/05/20 Oxymetazoline 0.05% Nasl Mobile 1 spray NASAL Q15M PRN MDD 3 DOSES 10/25/19 02/05/20 [Afrin 0.05% Nasal Mobile] Ascorbic Acid [Vitamin C] 500 mg PO DAILY@0900 01/19/20 02/05/20 Sertraline HCl [Zoloft] 25 mg PO DAILY@0900 01/19/20 02/05/20 Spironolactone [Aldactone] 50 mg PO DAILY@0900 01/19/20 02/05/20 metOLazone [Zaroxolyn] 5 mg PO DAILY@0900 01/19/20 02/05/20 INSULIN LISPRO (humaLOG) [humaLOG] 4 units SQ AC-BID 02/05/20 02/05/20 INSULIN LISPRO (humaLOG) [humaLOG] See Protocol SQ ACHS 02/05/20 02/05/20 Metoprolol Tartrate [Lopressor] 12.5 mg PO Q12H 02/05/20 02/05/20 Previous Rx's Medication Instructions Recorded Gabapentin [Neurontin] 200 mg PO TID@0900,1500,2100 #9 cap 12/26/19 HYDROcodone/APAP 10-325MG [[place] 1 tab PO Q6HR PRN 3 Days #12 tab 12/26/19 10-325] Zinc 50 mg PO DAILY@0900 #30 tab 02/03/20 Allergies Allergy/AdvReac Type Severity Reaction Status Date / Time cephalexin [From Keflex] Allergy Unknown Verified 02/05/20 20:32 duloxetine [From Cymbalta] Allergy Unknown Verified 02/05/20 20:32 Penicillins Allergy Rash/Hives Verified 02/05/20 20:32 phenobarbital Allergy Unknown Verified 02/05/20 20:32 phenytoin sodium Allergy Unknown Verified 02/05/20 20:32 [From Dilantin] phenytoin sodium extended Allergy Unknown Verified 02/05/20 20:32 [From Dilantin] primidone [From Mysoline] Allergy Unknown Verified 02/05/20 20:32 codeine AdvReac Nausea & Verified 02/05/20 20:32 Vomiting Review of Systems ROS Statement: Those systems with pertinent positive or pertinent negative responses have been documented in the HPI. ROS Other: All systems not noted in ROS Statement are negative. Past Medical History Past Medical History: Cancer, Heart Failure, COPD, Diabetes Mellitus, Fibromyalgia, Hyperlipidemia, Hypertension, Renal Disease, Rheumatoid Arthritis (RA), Seizure Disorder, Supraventricular Tachycardia (SVT) Additional Past Medical History / Comment(s): Breast cancer right-sided post mastectomy followed by chemotherapy, is independent diabetes mellitus type 2, peripheral neuropathy related to diabetes, COPD, liver cirrhosis, hypertension, hyperlipidemia, fibromyalgia, chronic kidney disease, rheumatoid arthritis, seizure disorder, history of SVT, diabetic peripheral neuropathy, chronic anxiety and depression, morbid obesity with a BMI of 58.5, previous history of GI bleed, diverticular disease, history of hepatic encephalopathy History of Any Multi-Drug Resistant Organisms: VRE Date of last positivie culture/infection: 05/11/18 MDRO Source:: VRE URINE Past Surgical History: Adenoidectomy, Appendectomy, Breast Surgery, Cholecystectomy, Hysterectomy, Orthopedic Surgery, Tonsillectomy, Tubal Ligation Additional Past Surgical History / Comment(s): masectomy right, ganglion cyst right hand, total hysterectomy (hx of tubal pregnancies), lower teeth extracted. Past Anesthesia/Blood Transfusion Reactions: No Reported Reaction Past Psychological History: Anxiety, Depression Smoking Status: Former smoker Past Alcohol Use History: None Reported Past Drug Use History: None Reported - Past Family History Father Family Medical History: Cancer, CVA/TIA Additional Family Medical History / Comment(s): 2000 from lung cancer Mother Family Medical History: Cancer, Dementia Additional Family Medical History / Comment(s): 2014 at age 86. Oral & Breast cancer Brother(s) Family Medical History: Asthma, Diabetes Mellitus, Fibromyalgia, Osteoarthritis (OA) Additional Family Medical History / Comment(s): Obesity. Joint replacements General Exam Limitations: no limitations General appearance: alert, in no apparent distress, other (This is a well- developed adult female patient in no acute distress. Vital signs upon presentation are temperature 98.2F, pulse 69, respirations 19, blood pressure 163, pulse ox 98% on room air.) Respiratory exam: Present: normal lung sounds bilaterally. Absent: respiratory distress, wheezes, rales, rhonchi, stridor Cardiovascular Exam: Present: regular rate, normal rhythm, normal heart sounds. Absent: systolic murmur, diastolic murmur, rubs, gallop, clicks GI/Abdominal exam: Present: soft, normal bowel sounds. Absent: distended, tenderness, guarding, rebound, rigid Neurological exam: Present: alert, oriented X3, CN II-XII intact Psychiatric exam: Present: normal affect, normal mood Skin exam: Present: warm, dry, intact, normal color. Absent: rash Course Vital Signs 02/05/20 02/05/20 19:35 22:23 Temperature 98.2 F Pulse Rate 69 69 Respiratory 19 21 Rate Blood Pressure 108/63 104/58 O2 Sat by Pulse 98 95 Oximetry Medical Decision Making - Medical Decision Making 70-year-old female patient presents to the emergency department today for evaluation of decreased hemoglobin. She did have recent hemicolectomy for GI bleed. Physical examination did reveal distended and tender abdomen. Midline incision with dressing intact, 50% saturation with bloody drainage. Labs reviewed and did reveal hemoglobin is 6.8. Potassium 5.8. BUN 42, creatinine 1.8. Patient will be admitted to the hospital for blood transfusion. Her surgeon will be consulted. She is agreeable. - Lab Data Result diagrams: 02/05/20 21:20 02/05/20 21:20 Lab Results 02/05/20 02/05/20 02/05/20 Range/Units 21:20 21:20 21:20 WBC 5.0 (3.8-10.6) k/uL RBC 2.39 L (3.80-5.40) m/uL Hgb 6.8 L* (11.4-16.0) gm/dL Hct 23.1 L (34.0-46.0) % MCV 96.7 (80.0-100.0) fL MCH 28.3 (25.0-35.0) pg MCHC 29.2 L (31.0-37.0) g/dL RDW 16.5 H (11.5-15.5) % Plt Count 172 (150-450) k/uL MPV 9.2 Neutrophils % (Manual) 79 % Band Neuts % (Manual) 1 % Lymphocytes % (Manual) 14 % Monocytes % (Manual) 4 % Eosinophils % (Manual) 1 % Metamyelocytes % 2 % Neutrophils # (Manual) 4.00 (1.3-7.7) k/uL Lymphocytes # (Manual) 0.70 L (1.0-4.8) k/uL Monocytes # (Manual) 0.20 (0-1.0) k/uL Eosinophils # (Manual) 0.05 (0-0.7) k/uL Metamyelocytes # (Man) 0.10 H (0) k/uL Nucleated RBCs 0 (0-0) /100 WBC Polychromasia Present Hypochromasia Marked Poikilocytosis Slight Anisocytosis Slight Macrocytosis Slight PT 11.2 (9.0-12.0) sec INR 1.1 (<1.2) APTT 33.2 H (22.0-30.0) sec Sodium 133 L (137-145) mmol/L Potassium 5.8 H (3.5-5.1) mmol/L Chloride 106 (98-107) mmol/L Carbon Dioxide 22 (22-30) mmol/L Anion Gap 5 mmol/L BUN 42 H (7-17) mg/dL Creatinine 1.80 H (0.52-1.04) mg/dL Est GFR (CKD-EPI)AfAm 33 (>60 ml/min/1.73 sqM) Est GFR (CKD-EPI)NonAf 29 (>60 ml/min/1.73 sqM) Glucose 105 H (74-99) mg/dL Plasma Lactic Acid Vasile (0.7-2.0) mmol/L Calcium 8.2 L (8.4-10.2) mg/dL Total Bilirubin 0.9 (0.2-1.3) mg/dL AST 52 H (14-36) U/L ALT 27 (4-34) U/L Alkaline Phosphatase 96 (38-126) U/L Total Protein 6.1 L (6.3-8.2) g/dL Albumin 2.6 L (3.5-5.0) g/dL Lipase 113 (23-300) U/L 02/05/20 Range/Units 21:20 WBC (3.8-10.6) k/uL RBC (3.80-5.40) m/uL Hgb (11.4-16.0) gm/dL Hct (34.0-46.0) % MCV (80.0-100.0) fL MCH (25.0-35.0) pg MCHC (31.0-37.0) g/dL RDW (11.5-15.5) % Plt Count (150-450) k/uL MPV Neutrophils % (Manual) % Band Neuts % (Manual) % Lymphocytes % (Manual) % Monocytes % (Manual) % Eosinophils % (Manual) % Metamyelocytes % % Neutrophils # (Manual) (1.3-7.7) k/uL Lymphocytes # (Manual) (1.0-4.8) k/uL Monocytes # (Manual) (0-1.0) k/uL Eosinophils # (Manual) (0-0.7) k/uL Metamyelocytes # (Man) (0) k/uL Nucleated RBCs (0-0) /100 WBC Polychromasia Hypochromasia Poikilocytosis Anisocytosis Macrocytosis PT (9.0-12.0) sec INR (<1.2) APTT (22.0-30.0) sec Sodium (137-145) mmol/L Potassium (3.5-5.1) mmol/L Chloride (98-107) mmol/L Carbon Dioxide (22-30) mmol/L Anion Gap mmol/L BUN (7-17) mg/dL Creatinine (0.52-1.04) mg/dL Est GFR (CKD-EPI)AfAm (>60 ml/min/1.73 sqM) Est GFR (CKD-EPI)NonAf (>60 ml/min/1.73 sqM) Glucose (74-99) mg/dL Plasma Lactic Acid Vasile 0.8 (0.7-2.0) mmol/L Calcium (8.4-10.2) mg/dL Total Bilirubin (0.2-1.3) mg/dL AST (14-36) U/L ALT (4-34) U/L Alkaline Phosphatase (38-126) U/L Total Protein (6.3-8.2) g/dL Albumin (3.5-5.0) g/dL Lipase (23-300) U/L - Radiology Data Radiology results: report reviewed, image reviewed CT abdomen and pelvis was obtained without contrast. Report was reviewed in its entirety. Impression by Dr. Trevino shows cardiomegaly. Left pleural effusion. Patchy airspace disease at the right lung base which is multifocal. Atypical pneumonia cannot be excluded and clinical correlation is advised. Moderate quantity of ascites. Findings just above cirrhosis. Splenomegaly. Portal hypertension. Probable left adrenal adenoma. Status post right ynes colectomy. Status post cholecystectomy. Nonspecific stranding about the perinephric spaces. Anasarca. Distention of the rectosigmoid stool raising concern for fecal impaction. Mild cystitis cannot be excluded Disposition Clinical Impression: Anemia, Abdominal pain Disposition: ADMITTED IP TO THIS [facility] Condition: Serious Decision to Admit Reason: Admit from Decision Date: 02/05/20 Decision Time: 23:56
[2020-02-05 21:48] LABS: Anisocytosis Slight; HCT 23.1 % (34.0-46.0); Hypochromasia Marked; MCH 28.3 pg (25.0-35.0); MCHC 29.2 g/dL (31.0-37.0); MCV 96.7 fL (80.0-100.0); Macrocytosis Slight; Mean Platelet Volume 9.2; Platelet Count 172 k/uL (150-450); Poikilocytosis Slight; RBC 2.39 m/uL (3.80-5.40); RDW 16.5 % (11.5-15.5)
[2020-02-05 21:49] LABS: INR 1.1 (<1.2); Partial Thromboplastin Time 33.2 sec (22.0-30.0); Prothrombin Time 11.2 sec (9.0-12.0)
[2020-02-05 21:55] LABS: HGB 6.8 gm/dL (11.4-16.0)
[2020-02-05 22:01] LABS: Albumin 2.6 g/dL (3.5-5.0); Calcium 8.2 mg/dL (8.4-10.2); Potassium 5.8 mmol/L (3.5-5.1); Total Bilirubin 0.9 mg/dL (0.2-1.3); Total Protein 6.1 g/dL (6.3-8.2)
[2020-02-05 22:15] LABS: Band Neutrophils % 1 %; Eosinophils # (M) 0.05 k/uL (0-0.7); Metamyelocytes % 2 %; Neutrophils % (M) 79 %; Nucleated Red Blood Cells 0 /100 WBC (0-0); Polychromasia Present; Total Cells Counted 200
--- NOTE | 2020-02-05 23:37 | CT ---
EXAM: CT Abdomen and Pelvis Without Intravenous Contrast CLINICAL HISTORY: ITS.REASON CT Reason: Abd pain; distension; recent colectomy TECHNIQUE: Axial computed tomography images of the abdomen and pelvis without intravenous contrast. CTDI is 29.27 mGy and DLP is 1579.40 mGy-cm. This CT exam was performed using one or more of the following dose reduction techniques: automated exposure control, adjustment of the mA and/or kV according to patient size, and/or use of iterative reconstruction technique. COMPARISON: 12/21/2019. FINDINGS: Lung bases: Patchy airspace disease is noted at the lung bases worrisome for atypical pneumonias. Pleural space: Small left pleural effusion. Heart: Cardiomegaly. ABDOMEN: Liver: Fatty liver. Micronodular contour of the liver possibly on the basis of cirrhosis. Gallbladder and bile ducts: Status post cholecystectomy. No ductal dilation. Pancreas: The head, body, tail of the pancreas are unremarkable. No ductal dilation. Spleen: Splenomegaly. Adrenals: 1 cm probable left adrenal adenoma which requires no follow- up. Left adrenal gland is unremarkable. Kidneys and ureters: Nonspecific stranding about the perinephric spaces without hydronephrosis. Stomach and bowel: Stomach is underdistended. Status post right hemicolectomy extending to the mid transverse colon. Moderate quantity of stool within remaining residual:. The rectosigmoid measures 10.6 x 6. 9 x 6.1 cm and is dilated. Fecal impaction cannot be excluded. PELVIS: Appendix: See above. Bladder: Wall thickening of the bladder. The bladder is mildly underdistended. Mild cystitis cannot be excluded. No stones. Reproductive: Unremarkable as visualized. ABDOMEN and PELVIS: Intraperitoneal space: Small quantity of ascites. Small to moderate quantity of free fluid extending about the paracolic gutters. Free fluid within the pelvis. No free air. Bones/joints: Moderate to severe degenerative disc disease of the visualized spine. Moderate to severe osteoarthritic changes about the sacral iliac joints. There is grade 1 anterolisthesis of L4 upon L5 vertebral body. Sacrum and coccyx are unremarkable. Anterior wedging and decrease in height of the L3 vertebral body of indeterminate age. Gentle levoscoliosis of the visualized spine. No dislocation. Soft tissues: Moderate to severe anasarca. Ischiorectal fat is clean. Vasculature: Para esophageal varices suggestive of portal hypertension. Atherosclerotic disease of the abdominal aorta extending to the common iliac arteries, without aneurysmal dilatation. Lymph nodes: No pelvic or inguinal lymphadenopathy. Other findings: Elevation of the right hemidiaphragm. Post surgical changes midline abdomen. IMPRESSION: 1. Cardiomegaly. 2. Left pleural effusion. 3. Patchy airspace disease at the right lung base which is multifocal. Atypical pneumonia cannot be excluded and clinical correlation is advised. 4. Moderate quantity of ascites. 5. Findings suggestive of cirrhosis. 6. Splenomegaly. 7. Portal hypertension. 8. Probable left adrenal adenoma. 9. Status post right hemicolectomy. 10. Status post cholecystectomy. 11. Nonspecific stranding about the perinephric spaces. 12. Anasarca. 13. Distention of the rectosigmoid with stool raising concern for fecal impaction. 14. Mild cystitis cannot be excluded.
[2020-02-05] MEDS ORDERED: ACETAMINOPHEN TAB 325 MG TAB PO PRN (23:51)
[2020-02-05] MEDS ORDERED: NALOXONE 0.4 MG/ML 1 ML VIAL IV PRN (23:51)
[2020-02-06] MEDS: HYDROmorphone 0.5 MG/0.5 ML SYRINGE IVP PRN ×3 (00:38→21:19)
[2020-02-06 09:48] LABS: ALT 25 U/L (4-34); AST 54 U/L (14-36); African American GFR (CKD) 31 (>60 ml/min/1.73 sqM); Albumin 2.5 g/dL (3.5-5.0); Albumin/Globulin Ratio 0.7; Alkaline Phosphatase 93 U/L (38-126); Anion Gap 5 mmol/L; Blood Urea Nitrogen 44 mg/dL (7-17); Calcium 8.2 mg/dL (8.4-10.2); Carbon Dioxide 20 mmol/L (22-30); Chloride 109 mmol/L (98-107); Globulin 3.7 g/dL; Glucose 98 mg/dL (74-99); Non-African American GFR(CKD) 27 (>60 ml/min/1.73 sqM); Sodium 134 mmol/L (137-145); Total Bilirubin 0.9 mg/dL (0.2-1.3); Total Protein 6.2 g/dL (6.3-8.2)
[2020-02-06 10:29] LABS: Potassium 6.4 mmol/L (3.5-5.1)
[2020-02-06 10:48] LABS: Anisocytosis Slight; Basophils % (A) 0 %; Eosinophils # (A) 0.1 k/uL (0-0.7); Eosinophils % (A) 2 %; HCT 23.3 % (34.0-46.0); Hypochromasia Marked; Lymphocytes # (A) 0.6 k/uL (1.0-4.8); Lymphocytes % (A) 14 %; MCH 28.4 pg (25.0-35.0); MCHC 29.5 g/dL (31.0-37.0); MCV 96.3 fL (80.0-100.0); Mean Platelet Volume 9.4; Monocytes # (A) 0.3 k/uL (0-1.0); Monocytes % (A) 7 %; Neutrophils % (A) 73 %; Platelet Count 147 k/uL (150-450); Poikilocytosis Slight; RBC 2.41 m/uL (3.80-5.40); RDW 16.2 % (11.5-15.5); WBC 4.1 k/uL (3.8-10.6)
[2020-02-06 10:58] LABS: HGB 6.9 gm/dL (11.4-16.0)
[2020-02-06] MEDS ORDERED: OXYMETAZOLINE 0.05% NASL SPRAY 1 SPRAY BOTTLE NASAL PRN (11:21)
[2020-02-06] MEDS ORDERED: ACETAMINOPHEN TAB 325 MG TAB PO PRN (11:21)
[2020-02-06] MEDS ORDERED: MELATONIN 5 MG TABLET PO PRN (11:21)
[2020-02-06] MEDS ORDERED: ARTIFICIAL TEARS-HYPROMELLOSE DROPS 15 ML BTL BOTH EYES PRN (11:21)
--- NOTE | 2020-02-06 12:46 | P.GSCN ---
History of Present Illness Consult date: 02/06/20 Reason for Consult: Wound infection History of present illness: This is a 62-year-old female who was coded positive on her previous admission. Patient underwent right colectomy for GI bleed and angiodysplasia. Patient was in the snf. She was transferred back to the emergency room. Patient noted to have some drainage from her incision. Past Medical History Past Medical History: Cancer, Heart Failure, COPD, Diabetes Mellitus, Fibromyalgia, Hyperlipidemia, Hypertension, Renal Disease, Rheumatoid Arthritis (RA), Seizure Disorder, Supraventricular Tachycardia (SVT) Additional Past Medical History / Comment(s): Breast cancer right-sided post mastectomy followed by chemotherapy, is independent diabetes mellitus type 2, peripheral neuropathy related to diabetes, COPD, liver cirrhosis, hypertension, hyperlipidemia, fibromyalgia, chronic kidney disease, rheumatoid arthritis, seizure disorder, history of SVT, diabetic peripheral neuropathy, chronic anxiety and depression, morbid obesity with a BMI of 58.5, previous history of GI bleed, diverticular disease, history of hepatic encephalopathy History of Any Multi-Drug Resistant Organisms: VRE Year Discovered:: 05/11/18 MDRO Source:: VRE URINE Past Surgical History: Adenoidectomy, Appendectomy, Breast Surgery, Cholecystectomy, Hysterectomy, Orthopedic Surgery, Tonsillectomy, Tubal Ligation Additional Past Surgical History / Comment(s): masectomy right, ganglion cyst right hand, total hysterectomy (hx of tubal pregnancies), lower teeth extracted. Past Anesthesia/Blood Transfusion Reactions: No Reported Reaction Past Psychological History: Anxiety, Depression Additional Psychological History / Comment(s): Pt currently is at [facility] for rehab. She needs assist with ADLS except feeds self. She states up until just lately she was getting up with a walker some. No experience. Did not work outside of the home. . No alcohol use Smoking Status: Former smoker Past Alcohol Use History: None Reported Additional Past Alcohol Use History / Comment(s): Pt started smoking in 1971 and qut in December 2017. Per patient she smoked 1-2 cigarettes a day after meals. Past Drug Use History: None Reported - Past Family History Father Family Medical History: Cancer, CVA/TIA Additional Family Medical History / Comment(s): 2000 from lung cancer Mother Family Medical History: Cancer, Dementia Additional Family Medical History / Comment(s): 2014 at age 86. Oral & Breast cancer Brother(s) Family Medical History: Asthma, Diabetes Mellitus, Fibromyalgia, Osteoarthritis (OA) Additional Family Medical History / Comment(s): Obesity. Joint replacements Medications and Allergies Home Medications Medication Instructions Recorded Confirmed Type Anastrozole [Arimidex] 1 mg PO DAILY@0900 09/30/14 02/05/20 History Sennosides [Senna] 8.6 mg PO BID@0900,209904/02/18 02/05/20 History Pantoprazole [Protonix] 40 mg PO DAILY@0600 07/02/18 02/05/20 History Ferrous Sulfate [Iron (65 MG 325 mg PO DAILY@0900 08/16/18 02/05/20 History Elemental)] Acetaminophen [Tylenol] 650 mg PO Q4H PRN 08/24/19 02/05/20 History Dextran 70/Hypromellose [Genteal 1 drop BOTH EYES Q12H PRN 08/24/19 02/05/20 History Tears 0.1%-0.3% Drop] Folic Acid 1 mg PO DAILY@0900 08/24/19 02/05/20 History Lactulose 20 gm PO BID@0900,209908/24/19 02/05/20 History Multivitamins, Thera [Multivitamin 1 tab PO DAILY@1500 08/24/19 02/05/20 History (formulary)] Rifaximin [Xifaxan] 550 mg PO BID@0900,209908/24/19 02/05/20 History Thiamine [Vitamin B-1] 100 mg PO DAILY@1600 08/24/19 02/05/20 History Melatonin 10 mg PO HS PRN 10/25/19 02/05/20 History Oxymetazoline 0.05% Nasl [place] 1 spray NASAL Q15M PRN MDD 3 DOSES 10/25/19 02/05/20 History [Afrin 0.05% Nasal [place]] Gabapentin [Neurontin] 200 mg PO TID@0900,1500,2099 #9 cap 12/26/19 02/05/20 Rx HYDROcodone/APAP 10-325MG [[place] 1 tab PO Q6HR PRN 3 Days #12 tab 12/26/19 02/05/20 Rx 10-325] Ascorbic Acid [Vitamin C] 500 mg PO DAILY@0900 01/19/20 02/05/20 History Sertraline HCl [Zoloft] 25 mg PO DAILY@0900 01/19/20 02/05/20 History Spironolactone [Aldactone] 50 mg PO DAILY@0900 01/19/20 02/05/20 History metOLazone [Zaroxolyn] 5 mg PO DAILY@0900 01/19/20 02/05/20 History Zinc 50 mg PO DAILY@0900 #30 tab 02/03/20 02/05/20 Rx INSULIN LISPRO (humaLOG) [humaLOG] 4 units SQ AC-BID 02/05/20 02/05/20 History INSULIN LISPRO (humaLOG) [humaLOG] See Protocol SQ ACHS 02/05/20 02/05/20 History Metoprolol Tartrate [Lopressor] 12.5 mg PO Q12H 02/05/20 02/05/20 History Allergies Allergy/AdvReac Type Severity Reaction Status Date / Time cephalexin [From Keflex] Allergy Unknown Verified 02/05/20 20:32 duloxetine [From Cymbalta] Allergy Unknown Verified 02/05/20 20:32 Penicillins Allergy Rash/Hives Verified 02/05/20 20:32 phenobarbital Allergy Unknown Verified 02/05/20 20:32 phenytoin sodium Allergy Unknown Verified 02/05/20 20:32 [From Dilantin] phenytoin sodium extended Allergy Unknown Verified 02/05/20 20:32 [From Dilantin] primidone [From Mysoline] Allergy Unknown Verified 02/05/20 20:32 codeine AdvReac Nausea & Verified 02/05/20 20:32 Vomiting Surgical - Exam Vital Signs Temp Pulse Resp BP Pulse Ox 98.2 F 69 19 108/63 98 02/05/20 19:35 02/05/20 19:35 02/05/20 19:35 02/05/20 19:35 02/05/20 19:35 - General well developed, well nourished, no distress - Eyes PERRL - ENT normal pinna - Respiratory normal expansion - Cardiovascular Rhythm: regular - Abdomen Serous drainage at the umbilicus. Abdomen: soft, non tender Results - Labs 02/06/20 10:28 02/06/20 08:40 Abnormal Lab Results - Last 24 Hours (Table) 12/02/05/20 02/05/20 Range/Units 21:20 21:20 21:20 RBC 2.39 L (3.80-5.40) m/uL Hgb 6.8 L* (11.4-16.0) gm/dL Hct 23.1 L (34.0-46.0) % MCHC 29.2 L (31.0-37.0) g/dL RDW 16.5 H (11.5-15.5) % Plt Count (150-450) k/uL Lymphocytes # (1.0-4.8) k/uL Lymphocytes # (Manual) 0.70 L (1.0-4.8) k/uL Metamyelocytes # (Man) 0.10 H (0) k/uL APTT 33.2 H (22.0-30.0) sec Sodium 133 L (137-145) mmol/L Potassium 5.8 H (3.5-5.1) mmol/L Chloride (98-107) mmol/L Carbon Dioxide (22-30) mmol/L BUN 42 H (7-17) mg/dL Creatinine 1.80 H (0.52-1.04) mg/dL Glucose 105 H (74-99) mg/dL Calcium 8.2 L (8.4-10.2) mg/dL AST 52 H (14-36) U/L Total Protein 6.1 L (6.3-8.2) g/dL Albumin 2.6 L (3.5-5.0) g/dL Crossmatch 02/05/20 02/06/20 02/06/20 Range/Units 21:20 08:40 10:28 RBC 2.41 L (3.80-5.40) m/uL Hgb 6.9 L* (11.4-16.0) gm/dL Hct 23.3 L (34.0-46.0) % MCHC 29.5 L (31.0-37.0) g/dL RDW 16.2 H (11.5-15.5) % Plt Count 147 L (150-450) k/uL Lymphocytes # 0.6 L (1.0-4.8) k/uL Lymphocytes # (Manual) (1.0-4.8) k/uL Metamyelocytes # (Man) (0) k/uL APTT (22.0-30.0) sec Sodium 134 L (137-145) mmol/L Potassium 6.4 H* (3.5-5.1) mmol/L Chloride 109 H (98-107) mmol/L Carbon Dioxide 20 L (22-30) mmol/L BUN 44 H (7-17) mg/dL Creatinine 1.89 H (0.52-1.04) mg/dL Glucose (74-99) mg/dL Calcium 8.2 L (8.4-10.2) mg/dL AST 54 H (14-36) U/L Total Protein 6.2 L (6.3-8.2) g/dL Albumin 2.5 L (3.5-5.0) g/dL Crossmatch See Detail Diabetes panel 02/05/20 02/06/20 Range/Units 21:20 08:40 Sodium 133 L 134 L (137-145) mmol/L Potassium 5.8 H 6.4 H* (3.5-5.1) mmol/L Chloride 106 109 H (98-107) mmol/L Carbon Dioxide 22 20 L (22-30) mmol/L BUN 42 H 44 H (7-17) mg/dL Creatinine 1.80 H 1.89 H (0.52-1.04) mg/dL Glucose 105 H 98 (74-99) mg/dL Calcium 8.2 L 8.2 L (8.4-10.2) mg/dL AST 52 H 54 H (14-36) U/L ALT 27 25 (4-34) U/L Alkaline Phosphatase 96 93 (38-126) U/L Total Protein 6.1 L 6.2 L (6.3-8.2) g/dL Albumin 2.6 L 2.5 L (3.5-5.0) g/dL Calcium panel 02/05/20 02/06/20 Range/Units 21:20 08:40 Calcium 8.2 L 8.2 L (8.4-10.2) mg/dL Albumin 2.6 L 2.5 L (3.5-5.0) g/dL Pituitary panel 02/05/20 02/06/20 Range/Units 21:20 08:40 Sodium 133 L 134 L (137-145) mmol/L Potassium 5.8 H 6.4 H* (3.5-5.1) mmol/L Chloride 106 109 H (98-107) mmol/L Carbon Dioxide 22 20 L (22-30) mmol/L BUN 42 H 44 H (7-17) mg/dL Creatinine 1.80 H 1.89 H (0.52-1.04) mg/dL Glucose 105 H 98 (74-99) mg/dL Calcium 8.2 L 8.2 L (8.4-10.2) mg/dL Adrenal panel 02/05/20 02/06/20 Range/Units 21:20 08:40 Sodium 133 L 134 L (137-145) mmol/L Potassium 5.8 H 6.4 H* (3.5-5.1) mmol/L Chloride 106 109 H (98-107) mmol/L Carbon Dioxide 22 20 L (22-30) mmol/L BUN 42 H 44 H (7-17) mg/dL Creatinine 1.80 H 1.89 H (0.52-1.04) mg/dL Glucose 105 H 98 (74-99) mg/dL Calcium 8.2 L 8.2 L (8.4-10.2) mg/dL Total Bilirubin 0.9 0.9 (0.2-1.3) mg/dL AST 52 H 54 H (14-36) U/L ALT 27 25 (4-34) U/L Alkaline Phosphatase 96 93 (38-126) U/L Total Protein 6.1 L 6.2 L (6.3-8.2) g/dL Albumin 2.6 L 2.5 L (3.5-5.0) g/dL Assessment and Plan Assessment: Small superficial wound infection. There were 4 jm removed from her incision at the bulbous. The wound was packed. Patient received IV antibiotic.
[2020-02-06 13:17] LABS: Appearance,Urine Cloudy (Clear); Bacteria,Urine Many /hpf; Bilirubin,Urine Negative (Negative); Blood,Urine Negative (Negative); Color,Urine Dark Yellow; Glucose,Urine (UA) Negative (Negative); Hyaline Casts,Urine 47 /lpf (0-2); Ketones,Urine Negative (Negative); Leukocyte Esterase,Urine Large (Negative); Mucus,Urine Rare /hpf; Nitrite,Urine Negative (Negative); Protein,Urine 1+ (Negative); RBC,Urine 9 /hpf (0-5); Specific Gravity,Urine 1.022 (1.001-1.035); Squamous Epithelial Cell,Urine 11 /hpf (0-4); WBC,Urine >182 /hpf (0-5)
--- NOTE | 2020-02-06 14:08 | P.NPCON ---
History of Present Illness - Reason for Consult Consult date: 02/06/20 acute renal failure, hyperkalemia - Chief Complaint Acute kidney injury and hyperkalemia - History of Present Illness This is a 70-year-old female, seen for acute kidney injury and hyperkalemia. S he recently underwent right hemicolectomy for angiodysplasia and GI bleed and was discharged to care home on 02/03/2020, was sent back here yesterday with abdominal pain and some drainage from the wound. She denies any nausea vomiting. She is constipated Denies any shortness of breath but has mild cough. She is known with chronic kidney disease with a baseline creatinine of 1.17 dated 02/01/2020. She is known with diabetes mellitus, COPD, rheumatoid arthritis, seizure disorder, SVT, right mastectomy and cirrhosis She is somewhat obese and ill-looking. Past Medical History Past Medical History: Cancer, Heart Failure, COPD, Diabetes Mellitus, Fibromyalgia, Hyperlipidemia, Hypertension, Renal Disease, Rheumatoid Arthritis (RA), Seizure Disorder, Supraventricular Tachycardia (SVT) Additional Past Medical History / Comment(s): Breast cancer right-sided post mastectomy followed by chemotherapy, is independent diabetes mellitus type 2, peripheral neuropathy related to diabetes, COPD, liver cirrhosis, hypertension, hyperlipidemia, fibromyalgia, chronic kidney disease, rheumatoid arthritis, seizure disorder, history of SVT, diabetic peripheral neuropathy, chronic anxiety and depression, morbid obesity with a BMI of 58.5, previous history of GI bleed, diverticular disease, history of hepatic encephalopathy History of Any Multi-Drug Resistant Organisms: VRE Date of last positivie culture/infection: 05/11/18 MDRO Source:: VRE URINE Past Surgical History: Adenoidectomy, Appendectomy, Breast Surgery, Cholecystectomy, Hysterectomy, Orthopedic Surgery, Tonsillectomy, Tubal Ligation Additional Past Surgical History / Comment(s): masectomy right, ganglion cyst right hand, total hysterectomy (hx of tubal pregnancies), lower teeth extracted. Past Anesthesia/Blood Transfusion Reactions: No Reported Reaction Past Psychological History: Anxiety, Depression Additional Psychological History / Comment(s): Pt currently is at [facility] for rehab. She needs assist with ADLS except feeds self. She states up u ntil just lately she was getting up with a walker some. No experience. Did not work outside of the home. . No alcohol use Smoking Status: Former smoker Past Alcohol Use History: None Reported Additional Past Alcohol Use History / Comment(s): Pt started smoking in 1971 and qut in December 2017. Per patient she smoked 1-2 cigarettes a day after meals. Past Drug Use History: None Reported - Past Family History Father Family Medical History: Cancer, CVA/TIA Additional Family Medical History / Comment(s): 2000 from lung cancer Mother Family Medical History: Cancer, Dementia Additional Family Medical History / Comment(s): 2014 at age 86. Oral & Breast cancer Brother(s) Family Medical History: Asthma, Diabetes Mellitus, Fibromyalgia, Osteoarthritis (OA) Additional Family Medical History / Comment(s): Obesity. Joint replacements Medications and Allergies Home Medications Medication Instructions Recorded Confirmed Type Anastrozole [Arimidex] 1 mg PO DAILY@0900 09/30/14 02/05/20 History Sennosides [Senna] 8.6 mg PO BID@0900,209904/02/18 02/05/20 History Pantoprazole [Protonix] 40 mg PO DAILY@0600 07/02/18 02/05/20 History Ferrous Sulfate [Iron (65 MG 325 mg PO DAILY@0900 08/16/18 02/05/20 History Elemental)] Acetaminophen [Tylenol] 650 mg PO Q4H PRN 08/24/19 02/05/20 History Dextran 70/Hypromellose [[place] 1 drop BOTH EYES Q12H PRN 08/24/19 02/05/20 History Tears 0.1%-0.3% Drop] Folic Acid 1 mg PO DAILY@0900 08/24/19 02/05/20 History Lactulose 20 gm PO BID@0900,209908/24/19 02/05/20 History Multivitamins, Thera [Multivitamin 1 tab PO DAILY@1500 08/24/19 02/05/20 History (formulary)] Rifaximin [Xifaxan] 550 mg PO BID@0900,209908/24/19 02/05/20 History Thiamine [Vitamin B-1] 100 mg PO DAILY@1600 08/24/19 02/05/20 History Melatonin 10 mg PO HS PRN 10/25/19 02/05/20 History Oxymetazoline 0.05% Nasl [place] 1 spray NASAL Q15M PRN MDD 3 DOSES 10/25/19 1 04/07/19 History [Afrin 0.05% Nasal [place]] Gabapentin [Neurontin] 200 mg PO TID@0900,1500,2100 #9 cap 12/26/19 02/05/20 Rx HYDROcodone/APAP 10-325MG [[place] 1 tab PO Q6HR PRN 3 Days #12 tab 12/26/19 02/05/20 Rx 10-325] Ascorbic Acid [Vitamin C] 500 mg PO DAILY@0900 01/19/20 02/05/20 History Sertraline HCl [Zoloft] 25 mg PO DAILY@0900 01/19/20 02/05/20 History Spironolactone [Aldactone] 50 mg PO DAILY@0900 01/19/20 02/05/20 History metOLazone [Zaroxolyn] 5 mg PO DAILY@0900 01/19/20 02/05/20 History Zinc 50 mg PO DAILY@0900 #30 tab 02/03/20 02/05/20 Rx INSULIN LISPRO (humaLOG) [humaLOG] 4 units SQ AC-BID 02/05/20 02/05/20 History INSULIN LISPRO (humaLOG) [humaLOG] See Protocol SQ ACHS 02/05/20 02/05/20 History Metoprolol Tartrate [Lopressor] 12.5 mg PO Q12H 02/05/20 02/05/20 History Allergies Allergy/AdvReac Type Severity Reaction Status Date / Time cephalexin [From Keflex] Allergy Unknown Verified 02/05/20 20:32 duloxetine [From Cymbalta] Allergy Unknown Verified 02/05/20 20:32 Penicillins Allergy Rash/Hives Verified 02/05/20 20:32 phenobarbital Allergy Unknown Verified 02/05/20 20:32 phenytoin sodium Allergy Unknown Verified 02/05/20 20:32 [From Dilantin] phenytoin sodium extended Allergy Unknown Verified 02/05/20 20:32 [From Dilantin] primidone [From Mysoline] Allergy Unknown Verified 02/05/20 20:32 codeine AdvReac Nausea & Verified 02/05/20 20:32 Vomiting Physical Exam Vitals: Vital Signs Temp Pulse Pulse Resp BP BP Pulse Ox 02/06/20 08:00 98.3 F 68 18 106/70 93 L 02/06/20 01:14 98.1 F 70 18 91/59 97 02/06/20 00:29 65 18 109/62 02/05/20 22:23 69 21 104/58 95 02/05/20 19:35 98.2 F 69 19 108/63 98 Intake and Output 02/05/20 02/06/20 02/06/20 22:59 06:59 14:59 Output Total 150 Balance -150 Output: Urine 150 Straight 150 Other: # Voids 1 1 Weight 108.862 kg 108.862 kg Exam she is morbidly obese female in bed profoundly weak HEENT exam no JVP neck is supple no facial asymmetry Lungs are clear to auscultation good air entry bilaterally Heart sounds are remarkable for grade 2 systolic ejection murmur with normal carotid upstroke likely aortic sclerosis Abdomen is somewhat tender bowel sounds are present Extremity exam was moderate edema. She is chronically short left leg on the rig ht and is aware of the Neurologically awake alert oriented but profoundly weak Results - Lab Results Most recent lab results Calcium 8.2 mg/dL (8.4-10.2) L 02/06/20 08:40 02/06/20 10:28 02/06/20 08:40 Assessment and Plan Assessment: Impression 1. Acute kidney injury secondary to likely intravascular volume depletion from decreased intake. 2. Hyperkalemia secondary to Aldactone and acute kidney injury 4. Chronic kidney disease creatinine is 1.17 CKD stage III secondary to nep hrosclerosis 5. Mild degree of non-gap acidosis from acute kidney injury 6. Significant anemia hemoglobin 6.9 7. Recent hemicolectomy for angiodysplasia 8. History of diabetes with no proteinuria on the urinalysis Recommendation 1. If she has not received the usual cocktail in the emergency room will give her D50 one amp, followed by hemolytic or 8 units IV. We'll give her Lasix 20 mg IV 1 dose. 2 her chest x-ray is showing some changes therefore she needs to be checked for cold with 3. Consider transfusion his 1 unit 4. Redo labs in about 4-6 hours 5. Check for possible GI bleed and she needs to have her constipation taken care of. Thank you for this consultation, will continue to follow
--- NOTE | 2020-02-06 14:14 | P.HPIM ---
History of Present Illness H&P Date: 02/06/20 Chief Complaint: Abnormal labs and low hemoglobin Patient is a 70-year-old who was found to be anemic, patient is a resident of extended care facility, she was found to have low hemoglobin, it appears that patient was the in the hospital discharged to [facility] on February 02, she started having progressive abdominal pain in the last few days, also has generalized weakness, he shouldn't noted to have not only acute kidney injury by severe anemia labs reviewed hemoglobin is 6.8 BUN and creatinine 42 and 1.8, and also hyperkalemia patient has been admitted with surgery consult infectious disease consult and renal consult, Review of Systems All systems: negative Past Medical History Past Medical History: Cancer, Heart Failure, COPD, Diabetes Mellitus, Fibromyalgia, Hyperlipidemia, Hypertension, Renal Disease, Rheumatoid Arthritis (RA), Seizure Disorder, Supraventricular Tachycardia (SVT) Additional Past Medical History / Comment(s): Breast cancer right-sided post mastectomy followed by chemotherapy, is independent diabetes mellitus type 2, peripheral neuropathy related to diabetes, COPD, liver cirrhosis, hypertension, hyperlipidemia, fibromyalgia, chronic kidney disease, rheumatoid arthritis, seizure disorder, history of SVT, diabetic peripheral neuropathy, chronic anxiety and depression, morbid obesity with a BMI of 58.5, previous history of GI bleed, diverticular disease, history of hepatic encephalopathy History of Any Multi-Drug Resistant Organisms: VRE Date of last positivie culture/infection: 05/11/18 MDRO Source:: VRE URINE Past Surgical History: Adenoidectomy, Appendectomy, Breast Surgery, Cholecystectomy, Hysterectomy, Orthopedic Surgery, Tonsillectomy, Tubal Ligation Additional Past Surgical History / Comment(s): masectomy right, ganglion cyst right hand, total hysterectomy (hx of tubal pregnancies), lower teeth extracted. Past Anesthesia/Blood Transfusion Reactions: No Reported Reaction Past Psychological History: Anxiety, Depression Additional Psychological History / Comment(s): Pt currently is at [facility] on the [place] for rehab. She needs assist with ADLS except feeds self. She states up until just lately she was getting up with a walker some. No experience. Did not work outside of the home. . No alcohol use Smoking Status: Former smoker Past Alcohol Use History: None Reported Additional Past Alcohol Use History / Comment(s): Pt started smoking in 1971 and qut in December 2017. Per patient she smoked 1-2 cigarettes a day after meals. Past Drug Use History: None Reported - Past Family History Father Family Medical History: Cancer, CVA/TIA Additional Family Medical History / Comment(s): 2000 from lung can cer Mother Family Medical History: Cancer, Dementia Additional Family Medical History / Comment(s): 2014 at age 86. Oral & Breast cancer Brother(s) Family Medical History: Asthma, Diabetes Mellitus, Fibromyalgia, Osteoarthritis (OA) Additional Family Medical History / Comment(s): Obesity. Joint replacements Medications and Allergies Home Medications Medication Instructions Recorded Confirmed Type Anastrozole [Arimidex] 1 mg PO DAILY@0900 09/30/14 02/05/20 History Sennosides [Senna] 8.6 mg PO BID@0900,209904/02/18 02/05/20 History Pantoprazole [Protonix] 40 mg PO DAILY@0600 07/02/18 02/05/20 History Ferrous Sulfate [Iron (65 MG 325 mg PO DAILY@0900 08/16/18 02/05/20 History Elemental)] Acetaminophen [Tylenol] 650 mg PO Q4H PRN 08/24/19 02/05/20 History Dextran 70/Hypromellose [Genteal 1 drop BOTH EYES Q12H PRN 08/24/19 02/05/20 History Tears 0.1%-0.3% Drop] Folic Acid 1 mg PO DAILY@0900 08/24/19 02/05/20 History Lactulose 20 gm PO BID@0900,2100 08/24/19 02/05/20 History Multivitamins, Thera [Multivitamin 1 tab PO DAILY@1500 08/24/19 02/05/20 History (formulary)] Rifaximin [Xifaxan] 550 mg PO BID@0900,2100 08/24/19 02/05/20 History Thiamine [Vitamin B-1] 100 mg PO DAILY@1600 08/24/19 02/05/20 History Melatonin 10 mg PO HS PRN 10/25/19 02/05/20 History Oxymetazoline 0.05% Nasl [place] 1 spray NASAL Q15M PRN MDD 3 DOSES 10/25/19 02/05/20 History [Afrin 0.05% Nasal [place]] Gabapentin [Neurontin] 200 mg PO TID@0900,1500,2099 #9 cap 12/26/19 02/05/20 Rx HYDROcodone/APAP 10-325MG [[place] 1 tab PO Q6HR PRN 3 Days #12 tab 12/26/19 02/05/20 Rx 10-325] Ascorbic Acid [Vitamin C] 500 mg PO DAILY@0900 01/19/20 02/05/20 History Sertraline HCl [Zoloft] 25 mg PO DAILY@0900 01/19/20 02/05/20 History Spironolactone [Aldactone] 50 mg PO DAILY@0900 01/19/20 02/05/20 History metOLazone [Zaroxolyn] 5 mg PO DAILY@0900 01/19/20 02/05/20 History Zinc 50 mg PO DAILY@0900 #30 tab 02/03/20 02/05/20 Rx INSULIN LISPRO (humaLOG) [humaLOG] 4 units SQ AC-BID 02/05/20 02/05/20 History INSULIN LISPRO (humaLOG) [humaLOG] See Protocol SQ ACHS 02/05/20 02/05/20 Hi story Metoprolol Tartrate [Lopressor] 12.5 mg PO Q12H 02/05/20 02/05/20 History Allergies Allergy/AdvReac Type Severity Reaction Status Date / Time cephalexin [From Keflex] Allergy Unknown Verified 02/05/20 20:32 duloxetine [From Cymbalta] Allergy Unknown Verified 02/05/20 20:32 Penicillins Allergy Rash/Hives Verified 02/05/20 20:32 phenobarbital Allergy Unknown Verified 02/05/20 20:32 phenytoin sodium Allergy Unknown Verified 02/05/20 20:32 [From Dilantin] phenytoin sodium extended Allergy Unknown Verified 02/05/20 20:32 [From Dilantin] primidone [From Mysoline] Allergy Unknown Verified 02/05/20 20:32 codeine AdvReac Nausea & Verified 02/05/20 20:32 Vomiting Physical Exam Vitals: Vital Signs Temp Pulse Pulse Resp BP BP Pulse Ox 02/06/20 08:00 98.3 F 68 18 106/70 93 L 02/06/20 01:14 98.1 F 70 18 91/59 97 02/06/20 00:29 65 18 109/62 12/23/20 22:23 69 21 104/58 95 02/05/20 19:35 98.2 F 69 19 108/63 98 Intake and Output 02/05/20 02/06/20 02/06/20 22:59 06:59 14:59 Output Total 150 Balance -150 Output: Urine 150 Straight 150 Other: # Voids 1 1 Weight 108.862 kg 108.862 kg - Constitutional General appearance: average body habitus, cooperative, disheveled, morbidly obese - EENT Eyes: PERRLA Ears: bilateral: normal - Neck Neck: normal ROM Carotids: bilateral: upstroke normal - Respiratory Respiratory: bilateral: CTA - Cardiovascular Rhythm: regular Heart sounds: normal: S1, S2 - Gastrointestinal Due to recent hemicolectomy abdominal wound is present with dressing tenderness is present General gastrointestinal: soft - Neurologic Neurologic: CNII-XII intact - Musculoskeletal Musculoskeletal: generalized weakness, strength equal bilaterally - Psychiatric Psychiatric: A&O x's 3, appropriate affect, intact judgment & insight Results CBC & Chem 7: 02/06/20 10:28 02/06/20 08:40 Labs: Abnormal Lab Results - Last 24 Hours (Table) 02/05/20 02/05/20 02/05/20 Range/Units 21:20 21:20 21:20 RBC 2.39 L (3.80-5.40) m/uL Hgb 6.8 L* (11.4-16.0) gm/dL Hct 23.1 L (34.0-46.0) % MCHC 29.2 L (31.0-37.0) g/dL RDW 16.5 H (11.5-15.5) % Plt Count (150-450) k/uL Lymphocytes # (1.0-4.8) k/uL Lymphocytes # (Manual) 0.70 L (1.0-4.8) k/uL Metamyelocytes # (Man) 0.10 H (0) k/uL APTT 33.2 H (22.0-30.0) sec Sodium 133 L (137-145) mmol/L Potassium 5.8 H (3.5-5.1) mmol/L Chloride (98-107) mmol/L Carbon Dioxide (22-30) mmol/L BUN 42 H (7-17) mg/dL Creatinine 1.80 H (0.52-1.04) mg/dL Glucose 105 H (74-99) mg/dL Calcium 8.2 L (8.4-10.2) mg/dL AST 52 H (14-36) U/L Total Protein 6.1 L (6.3-8.2) g/dL Albumin 2.6 L (3.5-5.0) g/dL Urine Appearance (Clear) Urine Protein (Negative) Ur Leukocyte Esterase (Negative) Urine RBC (0-5) /hpf Urine WBC (0-5) /hpf Urine WBC Clumps (None) /hpf Ur Squamous Epith Cells (0-4) /hpf Urine Bacteria (None) /hpf Hyaline Casts (0-2) /lpf Urine Mucus (None) /hpf Crossmatch 02/05/20 02/06/20 02/06/20 Range/Units 21:20 08:40 10:28 RBC 2.41 L (3.80-5.40) m/uL Hgb 6.9 L* (11.4-16.0) gm/dL Hct 23.3 L (34.0-46.0) % MCHC 29.5 L (31.0-37.0) g/dL RDW 16.2 H (11.5-15.5) % Plt Count 147 L (150-450) k/uL Lymphocytes # 0.6 L (1.0-4.8) k/uL Lymphocytes # (Manual) (1.0-4.8) k/uL Metamyelocytes # (Man) (0) k/uL APTT (22.0-30.0) sec Sodium 134 L (137-145) mmol/L Potassium 6.4 H* (3.5-5.1) mmol/L Chloride 109 H (98-107) mmol/L Carbon Dioxide 20 L (22-30) mmol/L BUN 44 H (7-17) mg/dL Creatinine 1.89 H (0.52-1.04) mg/dL Glucose (74-99) mg/dL Calcium 8.2 L (8.4-10.2) mg/dL AST 54 H (14-36) U/L Total Protein 6.2 L (6.3-8.2) g/dL Albumin 2.5 L (3.5-5.0) g/dL Urine Appearance (Clear) Urine Protein (Negative) Ur Leukocyte Esterase (Negative) Urine RBC (0-5) /hpf Urine WBC (0-5) /hpf Urine WBC Clumps (None) /hpf Ur Squamous Epith Cells (0-4) /hpf Urine Bacteria (None) /hpf Hyaline Casts (0-2) /lpf Urine Mucus (None) /hpf Crossmatch See Detail 02/06/20 Range/Units 12:30 RBC (3.80-5.40) m/uL Hgb (11.4-16.0) gm/dL Hct (34.0-46.0) % MCHC (31.0-37.0) g/dL RDW (11.5-15.5) % Plt Count (150-450) k/uL Lymphocytes # (1.0-4.8) k/uL Lymphocytes # (Manual) (1.0-4.8) k/uL Metamyelocytes # (Man) (0) k/uL APTT (22.0-30.0) sec Sodium (137-145) mmol/L Potassium (3.5-5.1) mmol/L Chloride (98-107) mmol/L Carbon Dioxide (22-30) mmol/L BUN (7-17) mg/dL Creatinine (0.52-1.04) mg/dL Glucose (74-99) mg/dL Calcium (8.4-10.2) mg/dL AST (14-36) U/L Total Protein (6.3-8.2) g/dL Albumin (3.5-5.0) g/dL Urine Appearance Cloudy H (Clear) Urine Protein 1+ H (Negative) Ur Leukocyte Esterase Large H (Negative) Urine RBC 9 H (0-5) /hpf Urine WBC >182 H (0-5) /hpf Urine WBC Clumps Moderate H (None) /hpf Ur Squamous Epith Cells 11 H (0-4) /hpf Urine Bacteria Many H (None) /hpf Hyaline Casts 47 H (0-2) /lpf Urine Mucus Rare H (None) /hpf Crossmatch Assessment and Plan Assessment: Severe acute symptomatic anemia Acute kidney injury Hyperkalemia Anterior abdominal wound Severe Morbid obesity and BMI of over 58 Breast cancer status post bilateral right-sided mastectomy status post chemotherapy type 2 diabetes mellitus Peripheral neuropathy Cirrhosis of the liver Potential hypertensive cardiovascular disease Seizure disorder History of diabetic bed for neuropathy History of hepatic encephalopathy Plan: Patient to be transfused with packed blood however due to antibodies there is a delay Surgical consultation Renal consultation ID consultation Resume home medications Further plan of care as per clinical response of the patient Time with Patient: Greater than 30
[2020-02-06] MEDS ORDERED: SODIUM POLYSTYRENE SULFONATE 15 GM/60 ML BOTTLE PO ONE (14:18)
[2020-02-06] MEDS: LEVOFLOXACIN 500MG-D5W PMX 500 MG in DEXTROSE/WATER 1 100ML.BAG IVPB SCH (15:07)
[2020-02-06] MEDS: METOPROLOL TARTRATE 12.5 MG TAB PO SCH ×2 (15:07→21:19)
[2020-02-06] MEDS: MULTIVITAMINS, THERA 1 EACH TAB PO SCH (15:08)
[2020-02-06] MEDS: GABAPENTIN 100 MG CAP PO SCH ×2 (15:08→21:19)
[2020-02-06] MEDS: FUROSEMIDE 10 MG/ML 2 ML VIAL IV SCH (15:08)
[2020-02-06] MEDS: THIAMINE 100 MG TAB PO SCH (15:08)
[2020-02-06 20:06] LABS: African American GFR (CKD) 33 (>60 ml/min/1.73 sqM); Anion Gap 4 mmol/L; Blood Urea Nitrogen 43 mg/dL (7-17); Carbon Dioxide 22 mmol/L (22-30); Chloride 107 mmol/L (98-107); Glucose 151 mg/dL (74-99); Non-African American GFR(CKD) 28 (>60 ml/min/1.73 sqM); Potassium 5.6 mmol/L (3.5-5.1); Sodium 133 mmol/L (137-145)
[2020-02-06] MEDS: SENNOSIDES 8.6 MG TAB PO SCH (21:18)
[2020-02-06] MEDS: RIFAXIMIN 550 MG TABLET PO SCH (21:18)
[2020-02-06] MEDS: LACTULOSE 20 GM/30 ML CUP PO SCH (21:19)
--- NOTE | 2020-02-07 00:19 | CONS ---
CONSULTATION DATE OF SERVICE: 02/06/2020 REASON FOR CONSULTATION: Abdominal wound infection. HISTORY OF PRESENT ILLNESS: The patient is a 70-year-old female recently admitted to this facility for a GI bleed in this patient who is status post right hemicolectomy, repair of incisional hernia and partial omentectomy for a GI bleed and incarcerated ventral hernia. The patient was discharged to the assisted on 02/03/2020. The patient apparently was sent back to the ER last night after apparently the patient was noticed to have low hemoglobin. The patient currently denies having any fever or any chills. The patient denies having any bleeding per rectum or any bleeding from any other part of the body. The patient denies having any chest pain or shortness of breath or cough. No nausea, no vomiting. She is complaining of pain in the lower abdominal area, more of a dull aching, at times sharp, 6 to 10 out of 10, and no radiation. The patient on presentation to the hospital was afebrile. The patient did have a normal white count. The patient had a CT of abdomen and pelvis which shows some stool burden and lung infiltrate but did not mention any abdominal wound dehiscence. The patient has been evaluated by General Surgery, as there was slight drainage from her abdominal wound. Some of the the stitches have been removed with drainage of mostly serous secretions. The patient was started on Levaquin. Infectious Disease was consulted for further management of antibiotic therapy. REVIEW OF SYSTEMS: Positive points have been mentioned in the HPI. Rest of the systems are negative. PAST MEDICAL HISTORY: Diabetes mellitus, fibromyalgia, hypertension, hyperlipidemia, seizure disorder, heart failure, breast cancer. PAST SURGICAL HISTORY: Adenoidectomy, appendectomy, cholecystectomy, hysterectomy, tonsillectomy, tubal ligation. SOCIAL HISTORY: Remote history of smoking. No drinking or drug use. FAMILY HISTORY: Father with history of CVA and TIA. Mother with history of cancer and dementia. ALLERGIES: CEPHALEXIN, PENICILLIN. MEDICATIONS: The patient is currently on Tylenol, Arimidex, vitamin C, iron sulfate, Lasix, Neurontin, Levaquin, Lopressor, Narcan, Protonix, Senokot, Zoloft and zinc sulfate. PHYSICAL EXAMINATION: Blood pressure 104/50 with a pulse of 63, temperature 98.7. She is 94% on room air. General description is an elderly female lying in bed in no distress. No tachypnea or accessory muscle of respiration use. HEENT: Examination shows pallor. No scleral icterus. Oral mucous membrane is dry. No pharyngeal erythema or thrush. NECK: Trachea is central. No thyromegaly. LUNGS: Unlabored breathing. Clear to auscultation anteriorly. No wheeze or crackle. HEART: S1, S2. Regular rate and rhythm. ABDOMEN: Soft. The lower abdominal incision has been opened up which is currently showing mostly serous drainage. There is some surrounding induration, but no redness of foul-smelling drainage. EXTREMITIES: Some trace edema of feet. SKIN EXAMINATION: No rash or mass palpable. Neurologically the patient is awake, alert, oriented x3. Mood and affect normal. LABS: Hemoglobin 6.9, white count 4.1. BUN of 43, creatinine 1.81. Urine has large leukocyte esterase with moderate WBC. Cano PCR was negative. CT report as mentioned above. DIAGNOSTIC IMPRESSION AND PLAN: 1. Patient admitted to hospital with low hemoglobin in this patient with recent right hemicolectomy for possible GI source of her anemia plus/minus possible hematoma and surgical findings. This patient also had a ventral hernia repair. The patient was not noticed to have significant cellulitis around the incision, did not have any fever or elevated white count. Underlying abdominal wound infection less likely but not entirely excluded. 2. Patient with MULTIPLE ANTIBIOTIC ALLERGIES. That will limit the number of antibiotics safe to use. 3. Patient with renal insufficiency and high risk of nephrotoxicity from vancomycin. PLAN: 1. Local wound culture has been obtained to guide antibiotic therapy. 2. Continue with empiric Levaquin. 3. Pack the wound with dry protective dressings daily. 4. Will follow clinical condition and culture to further adjust medication if needed. Thank you for this consultation. Will follow this patient along with you. MMODL / IJN: [id number] /
[2020-02-07] MEDS: HYDROmorphone 0.5 MG/0.5 ML SYRINGE IVP PRN ×3 (03:32→13:07)
[2020-02-07 07:14] LABS: Anisocytosis Slight; Basophils % (A) 1 %; Eosinophils # (A) 0.1 k/uL (0-0.7); Eosinophils % (A) 3 %; HCT 25.2 % (34.0-46.0); HGB 7.5 gm/dL (11.4-16.0); Hypochromasia Marked; Lymphocytes # (A) 0.6 k/uL (1.0-4.8); Lymphocytes % (A) 13 %; MCHC 29.6 g/dL (31.0-37.0); MCV 94.7 fL (80.0-100.0); Mean Platelet Volume 8.6; Monocytes # (A) 0.4 k/uL (0-1.0); Monocytes % (A) 7 %; Neutrophils # (A) 3.7 k/uL (1.3-7.7); Neutrophils % (A) 74 %; Platelet Count 164 k/uL (150-450); Poikilocytosis Slight; RBC 2.66 m/uL (3.80-5.40); RDW 17.7 % (11.5-15.5); WBC 4.9 k/uL (3.8-10.6)
[2020-02-07] MEDS: PANTOPRAZOLE 40 MG TABLET PO SCH (08:52)
[2020-02-07] MEDS: SENNOSIDES 8.6 MG TAB PO SCH ×2 (08:52→21:05)
[2020-02-07] MEDS: FERROUS SULFATE 325 MG TAB PO SCH (08:53)
[2020-02-07] MEDS: RIFAXIMIN 550 MG TABLET PO SCH ×2 (08:53→21:04)
[2020-02-07] MEDS: ASCORBIC ACID 500 MG TAB PO SCH (08:53)
[2020-02-07] MEDS: FOLIC ACID 1 MG TAB PO SCH (08:53)
[2020-02-07] MEDS: ZINC SULFATE 220 MG CAP PO SCH (08:54)
[2020-02-07] MEDS: METOPROLOL TARTRATE 12.5 MG TAB PO SCH ×2 (08:54→20:56)
[2020-02-07] MEDS: SERTRALINE 25 MG TAB PO SCH (08:54)
[2020-02-07] MEDS: ANASTROZOLE 1 MG TAB PO SCH (08:54)
[2020-02-07] MEDS: MULTIVITAMINS, THERA 1 EACH TAB PO SCH (08:58)
[2020-02-07] MEDS: FUROSEMIDE 10 MG/ML 2 ML VIAL IV SCH ×3 (08:59→22:13)
[2020-02-07] MEDS: LACTULOSE 20 GM/30 ML CUP PO SCH ×3 (09:00→21:05)
[2020-02-07] MEDS: GABAPENTIN 100 MG CAP PO SCH ×3 (09:05→21:05)
[2020-02-07 09:36] LABS: INR 1.21 (0.90-1.11); Prothrombin Time 12.9 sec (9.9-11.9)
[2020-02-07 10:57] LABS: Albumin 2.7 g/dL (3.80-4.90); Albumin/Globulin Ratio 0.96 (1.60-3.17); Anion Gap 8.6 mmol/L (4.00-12.00); BUN/Creat Ratio 22.5 Ratio (12.00-20.00); Calcium 7.9 mg/dL (8.7-10.3); Carbon Dioxide 19.4 mmol/L (21.6-31.8); Globulin 2.8 g/dL (1.6-3.3); Potassium 5.9 mmol/L (3.5-5.5); Total Bilirubin 0.8 mg/dL (0.2-1.2); Total Protein 5.5 g/dL (6.2-8.2)
[2020-02-07] MEDS ORDERED: SODIUM POLYSTYRENE SULFONATE 15 GM/60 ML BOTTLE PO ONE (12:13)
--- NOTE | 2020-02-07 12:13 | P.PN ---
Subjective Progress Note Date: 02/07/20 Principal diagnosis: This is a 70-year-old female seen in consultation because of acute kidney injury secondary to hypovolemia from intravascular volume depletion and low blood pre ssure and she had hyperkalemia secondary to Aldactone and acute kidney injury She had undergone right hemicolectomy for angiodysplasia and GI bleed and [facility] and was sent back here on 02/05/2020 with abdominal pain severe constipation and had a small part of her incision and drainage. Yoseph were taken off and she is being treated for wound infection. She had an enema yesterday and she had a large bowel movement. Abdominal pain is better she wants to eat. Her hyperkalemia was treated with Kayexalate and Lasix and potassium and down from 6.4-5.6 but is again up at 5.9 today. Her creatinine was 1.17 on 02/11/2020 but had been up at 1.8 and is up to 2 this morning. The cause of the acute kidney injury is remains the same. Blood pressure remains low in the 80 40 or 50-104/50 range heart rate in the 60s and temp is 98.7 She is on small dose of metoprolol 12.5 twice a day for previous episode of supraventricular tachycardia She has a Granados catheter and 800 mL urine output is documented Objective - Vital Signs Vital signs: Vital Signs Temp 97.5 F L 02/07/20 07:52 Pulse 63 02/07/20 07:52 Resp 18 02/07/20 07:52 BP 84/50 02/07/20 07:52 Pulse Ox 93 L 02/07/20 07:52 Intake & Output 02/06/20 02/07/20 02/07/20 18:59 06:59 18:59 Intake Total 370 200 360 Output Total 550 250 Balance -180 -50 360 Intake: Oral 60 200 360 Blood Product 310 Rc Pheresis As-3 Unit 310 [id number] Output: Urine 550 250 Straight 150 250 Other: # Voids 1 # Bowel Movements 1 On examination she is awake alert oriented comfortable HEENT exam no JVP neck is supple no facial asymmetry Lungs are clear to auscultation fair air entry bilaterally Heart sounds unremarkable she is in normal sinus rhythm Abdomen soft nontender she has a large abdominal binder therefore difficult to examine all sounds are somewhat diminished Extremity exam reveals 2+ edema Neurologically awake alert oriented but profoundly generalized weakness - Labs CBC & Chem 7: 02/07/20 07:00 02/07/20 07:00 Labs: Abnormal Lab Results - Last 24 Hours (Table) 02/05/20 02/06/20 02/06/20 Range/Units 21:20 12:30 19:40 RBC (3.80-5.40) m/uL Hgb (11.4-16.0) gm/dL Hct (34.0-46.0) % MCHC (31.0-37.0) g/dL RDW (11.5-15.5) % Lymphocytes # (1.0-4.8) k/uL PT (9.9-11.9) sec INR (0.90-1.11) Sodium 133 L (137-145) mmol/L Potassium 5.6 H (3.5-5.1) mmol/L Carbon Dioxide (21.6-31.8) mmol/L BUN 43 H (7-17) mg/dL Creatinine 1.81 H (0.52-1.04) mg/dL Est GFR (CKD-EPI)AfAm (60.0-200.0) Est GFR (CKD-EPI)NonAf (60.0-200.0) BUN/Creatinine Ratio (12.00-20.00) Ratio Glucose 151 H (74-99) mg/dL Calcium 8.0 L (8.4-10.2) mg/dL Total Protein (6.2-8.2) g/dL Albumin (3.80-4.90) g/dL Albumin/Globulin Ratio (1.60-3.17) g/dL Urine Appearance Cloudy H (Clear) Urine Protein 1+ H (Negative) Ur Leukocyte Esterase Large H (Negative) Urine RBC 9 H (0-5) /hpf Urine WBC >182 H (0-5) /hpf Urine WBC Clumps Moderate H (None) /hpf Ur Squamous Epith Cells 11 H (0-4) /hpf Urine Bacteria Many H (None) /hpf Hyaline Casts 47 H (0-2) /lpf Urine Mucus Rare H (None) /hpf Crossmatch See Detail 02/07/20 02/07/20 02/07/20 Range/Units 07:00 07:00 07:00 RBC 2.66 L (3.80-5.40) m/uL Hgb 7.5 L (11.4-16.0) gm/dL Hct 25.2 L (34.0-46.0) % MCHC 29.6 L (31.0-37.0) g/dL RDW 17.7 H (11.5-15.5) % Lymphocytes # 0.6 L (1.0-4.8) k/uL PT 12.9 H (9.9-11.9) sec INR 1.21 H (0.90-1.11) Sodium 134 L (137-145) mmol/L Potassium 5.9 H (3.5-5.1) mmol/L Carbon Dioxide 19.4 L (21.6-31.8) mmol/L BUN 45.0 H (7-17) mg/dL Creatinine 2.0 H (0.52-1.04) mg/dL Est GFR (CKD-EPI)AfAm 29.0 L (60.0-200.0) Est GFR (CKD-EPI)NonAf 25.0 L (60.0-200.0) BUN/Creatinine Ratio 22.50 H (12.00-20.00) Ratio Glucose 125 H (74-99) mg/dL Calcium 7.9 L (8.4-10.2) mg/dL Total Protein 5.5 L (6.2-8.2) g/dL Albumin 2.70 L (3.80-4.90) g/dL Albumin/Globulin Ratio 0.96 L (1.60-3.17) g/dL Urine Appearance (Clear) Urine Protein (Negative) Ur Leukocyte Esterase (Negative) Urine RBC (0-5) /hpf Urine WBC (0-5) /hpf Urine WBC Clumps (None) /hpf Ur Squamous Epith Cells (0-4) /hpf Urine Bacteria (None) /hpf Hyaline Casts (0-2) /lpf Urine Mucus (None) /hpf Crossmatch Microbiology - Last 24 Hours (Table) 02/06/20 13:00 Gram Stain - Preliminary Abdomen Wound Culture - Preliminary 02/06/20 12:30 Urine Culture - Preliminary Urine,Voided Assessment and Plan Assessment: Impression 1. Acute kidney injury secondary to likely intravascular volume depletion from decreased intake, and low blood pressure. Creatinines has gone up from 1.8-2. 2. Hyperkalemia secondary to Aldactone and acute kidney injury. Potassium remains high at 5.9 4. Chronic kidney disease creatinine is 1.17 CKD stage III secondary to nephrosclerosis 5. Mild degree of non-gap acidosis from acute kidney injury. Bicarb is down to 19.4 from 20. 6. Significant anemia hemoglobin 6.9, up to 7.5 after transfusion 7. Recent hemicolectomy for angiodysplasia 8. History of diabetes with no proteinuria on the urinalysis. 9. Wound infection Recommendation. 1. Kayexalate 15 g by mouth now 2. Start IV normal saline 75 an hour to induce potassium loss 3. Will give Lasix 20 every 12 4. Watch potassium and renal function 5. Avoid nephrotoxic medications and diet studies
[2020-02-07] MEDS: SODIUM CHLORIDE 0.9% 1,000 ML IV SCH (12:29)
[2020-02-07] MEDS: LEVOFLOXACIN 500MG-D5W PMX 500 MG in DEXTROSE/WATER 1 100ML.BAG IVPB SCH (12:29)
[2020-02-07] MEDS: SODIUM BICARBONATE TAB 650 MG TAB PO SCH ×3 (13:02→21:04)
--- NOTE | 2020-02-07 14:18 | P.PN ---
Subjective Progress Note Date: 02/07/20 CHIEF COMPLAINT: Surgical site infection HISTORY OF PRESENT ILLNESS: The patient is a 70-year-old female status post right hemicolectomy. She was re-admitted for surgical site superficial infection with discontinuance of jm. She wants to eat more other than clear liquids. She has baseline chronic pain syndrome. She denies any increased abdominal pain. She received her PICC line this morning for antibiotics. She has history of COVID. ROS: No reports of nausea and vomiting. No fevers or chills. No new chest pain. PHYSICAL EXAM: VITAL SIGNS: Reviewed CONSTITUTIONAL: Well developed and in no acute distress. EYES: Conjuctivae without sclera icterus. Extraocular movements grossly intact. HEAD, EARS, NOSE, THROAT: Moist buccal mucosa. Head is atraumatic, normocephalic. Hears conversational speech. No nasal drainage. NECK: Supple. No thyroidomegaly. RESPIRATORY: Non-labored respirations and equal bilateral excursions. CARDIOVASCULAR: 2+ radial pulses. ABDOMEN: Dressing intact. Protuberant MUSCULOSKELETAL: No gross deformity of the lower extremities noted. No clubbing. No cyanosis. SKIN: Good skin turgor. Well perfused. NEUROLOGIC: Cranial nerves II through XII grossly intact. No focal or lateralizing signs. PSYCH: Appropriate affect. Alert and oriented to person, place and time. CLINICAL LABS: White blood cell count normal, 4.9. Hgb 7.5 up from 6.9. ASSESSMENT: 1. Surgical site infection 2. Acute blood loss anemia. PLAN: 1. Patient readmitted for surgical site superficial infection 2. Continue antibiotics with PICC line 3. Will advance diet. Objective - Vital Signs Vital signs: Vital Signs Temp 97.5 F L 02/07/20 07:52 Pulse 63 02/07/20 07:52 Resp 18 02/07/20 07:52 BP 84/50 02/07/20 07:52 Pulse Ox 93 L 02/07/20 07:52 Intake & Output 02/06/20 02/07/20 02/07/20 18:59 06:59 18:59 Intake Total 370 200 360 Output Total 550 250 Balance -180 -50 360 Intake: Oral 60 200 360 Blood Product 310 Rc Pheresis As-3 Unit 310 [id number] Output: Urine 550 250 Straight 150 250 Other: Voiding Method Toilet # Voids 1 # Bowel Movements 1 - Labs CBC & Chem 7: 02/07/20 07:00 02/07/20 07:00 Labs: Abnormal Lab Results - Last 24 Hours (Table) 02/05/20 02/06/20 02/07/20 Range/Units 21:20 19:40 07:00 RBC 2.66 L (3.80-5.40) m/uL Hgb 7.5 L (11.4-16.0) gm/dL Hct 25.2 L (34.0-46.0) % MCHC 29.6 L (31.0-37.0) g/dL RDW 17.7 H (11.5-15.5) % Lymphocytes # 0.6 L (1.0-4.8) k/uL PT (9.9-11.9) sec INR (0.90-1.11) Sodium 133 L (137-145) mmol/L Potassium 5.6 H (3.5-5.1) mmol/L Carbon Dioxide (21.6-31.8) mmol/L BUN 43 H (7-17) mg/dL Creatinine 1.81 H (0.52-1.04) mg/dL Est GFR (CKD-EPI)AfAm (60.0-200.0) Est GFR (CKD-EPI)NonAf (60.0-200.0) BUN/Creatinine Ratio (12.00-20.00) Ratio Glucose 151 H (74-99) mg/dL Calcium 8.0 L (8.4-10.2) mg/dL Total Protein (6.2-8.2) g/dL Albumin (3.80-4.90) g/dL Albumin/Globulin Ratio (1.60-3.17) g/dL Crossmatch See Detail 02/07/20 02/07/20 Range/Units 07:00 07:00 RBC (3.80-5.40) m/uL Hgb (11.4-16.0) gm/dL Hct (34.0-46.0) % MCHC (31.0-37.0) g/dL RDW (11.5-15.5) % Lymphocytes # (1.0-4.8) k/uL PT 12.9 H (9.9-11.9) sec INR 1.21 H (0.90-1.11) Sodium 134 L (137-145) mmol/L Potassium 5.9 H (3.5-5.1) mmol/L Carbon Dioxide 19.4 L (21.6-31.8) mmol/L BUN 45.0 H (7-17) mg/dL Creatinine 2.0 H (0.52-1.04) mg/dL Est GFR (CKD-EPI)AfAm 29.0 L (60.0-200.0) Est GFR (CKD-EPI)NonAf 25.0 L (60.0-200.0) BUN/Creatinine Ratio 22.50 H (12.00-20.00) Ratio Glucose 125 H (74-99) mg/dL Calcium 7.9 L (8.4-10.2) mg/dL Total Protein 5.5 L (6.2-8.2) g/dL Albumin 2.70 L (3.80-4.90) g/dL Albumin/Globulin Ratio 0.96 L (1.60-3.17) g/dL Crossmatch Microbiology - Last 24 Hours (Table) 02/06/20 13:00 Gram Stain - Preliminary Abdomen Wound Culture - Preliminary 02/06/20 12:30 Urine Culture - Preliminary Urine,Voided Assessment and Plan (1) Surgical site infection Current Visit: Yes Status: Acute Code(s): T81.49XA - INFECTION FOLLOWING A PROCEDURE, OTHER SURGICAL SITE, INIT SNOMED Code(s): 70404129 (2) S/P right hemicolectomy Current Visit: Yes Status: Acute Code(s): Z90.49 - ACQUIRED ABSENCE OF OTHER SPECIFIED PARTS OF DIGESTIVE TRACT SNOMED Code(s): 239365078 (3) Anemia Current Visit: Yes Status: Acute Code(s): D64.9 - ANEMIA, UNSPECIFIED SNOMED Code(s): 345120686
[2020-02-07] MEDS: THIAMINE 100 MG TAB PO SCH (16:41)
--- NOTE | 2020-02-07 22:48 | PN ---
PROGRESS NOTE DATE OF SERVICE: February 07, 2020. REASON FOR FOLLOWUP: Abdominal wound infection. INTERVAL HISTORY: The patient is currently afebrile. The patient is breathing comfortably. Patient denies having any chest pain or cough. Some abdominal discomfort. No nausea, no vomiting. No diarrhea. PHYSICAL EXAMINATION: Blood pressure 102/59, pulse of 74, temperature of 98. She is 97% on 2 L nasal cannula. General description is an elderly female lying in bed in no distress. Respiratory system: Unlabored breathing. Clear to auscultation anteriorly. Heart S1, S2. Regular rate and rhythm. ABDOMEN: Soft. Wound is currently packed. LABS: Hemoglobin 7.5, white count 4.9. DIAGNOSTIC IMPRESSION AND PLAN: Patient with abdominal wound dehiscence with concern for underlying hematoma not excluded. The patient is covered with Levaquin because of multiple allergy. She will continue while waiting for the culture to finalize continue supportive care. MMODL / IJN: [id number] /
[2020-02-08] MEDS: HYDROmorphone 0.5 MG/0.5 ML SYRINGE IVP PRN ×3 (00:01→17:09)
[2020-02-08] MEDS: SODIUM CHLORIDE 0.9% 1,000 ML IV SCH ×2 (02:22→16:20)
[2020-02-08] MEDS: PANTOPRAZOLE 40 MG TABLET PO SCH (05:46)
[2020-02-08 07:22] LABS: Anisocytosis Slight; Basophils % (A) 0 %; Eosinophils # (A) 0.1 k/uL (0-0.7); Eosinophils % (A) 3 %; HCT 22.4 % (34.0-46.0); Hypochromasia Marked; Lymphocytes # (A) 0.7 k/uL (1.0-4.8); Lymphocytes % (A) 16 %; MCH 28.2 pg (25.0-35.0); MCHC 30.2 g/dL (31.0-37.0); MCV 93.2 fL (80.0-100.0); Monocytes # (A) 0.3 k/uL (0-1.0); Monocytes % (A) 8 %; Neutrophils # (A) 2.9 k/uL (1.3-7.7); Neutrophils % (A) 70 %; Platelet Count 161 k/uL (150-450); Poikilocytosis Slight; RDW 17.8 % (11.5-15.5); WBC 4.2 k/uL (3.8-10.6)
[2020-02-08 07:25] LABS: HGB 6.8 gm/dL (11.4-16.0)
[2020-02-08] MEDS: GABAPENTIN 100 MG CAP PO SCH ×3 (09:32→19:57)
[2020-02-08] MEDS: SERTRALINE 25 MG TAB PO SCH (09:32)
[2020-02-08] MEDS: FOLIC ACID 1 MG TAB PO SCH (09:32)
[2020-02-08] MEDS: SENNOSIDES 8.6 MG TAB PO SCH ×2 (09:32→19:57)
[2020-02-08] MEDS: RIFAXIMIN 550 MG TABLET PO SCH ×2 (09:33→19:59)
[2020-02-08] MEDS: ANASTROZOLE 1 MG TAB PO SCH (09:33)
[2020-02-08] MEDS: ASCORBIC ACID 500 MG TAB PO SCH (09:33)
[2020-02-08] MEDS: ZINC SULFATE 220 MG CAP PO SCH (09:33)
[2020-02-08] MEDS: FERROUS SULFATE 325 MG TAB PO SCH (09:34)
[2020-02-08] MEDS: LACTULOSE 20 GM/30 ML CUP PO SCH ×2 (09:35→19:58)
[2020-02-08] MEDS: SODIUM BICARBONATE TAB 650 MG TAB PO SCH ×4 (09:36→20:00)
[2020-02-08] MEDS: METOPROLOL TARTRATE 12.5 MG TAB PO SCH ×2 (09:38→19:58)
[2020-02-08 10:03] LABS: African American GFR (CKD) 25.8 (60.0-200.0); Albumin 2.4 g/dL (3.80-4.90); Albumin/Globulin Ratio 0.96 (1.60-3.17); Anion Gap 7.6 mmol/L (4.00-12.00); BUN/Creat Ratio 20.45 Ratio (12.00-20.00); Calcium 7.6 mg/dL (8.7-10.3); Carbon Dioxide 20.4 mmol/L (21.6-31.8); Globulin 2.5 g/dL (1.6-3.3); Non-African American GFR(CKD) 22.3 (60.0-200.0); Potassium 4.8 mmol/L (3.5-5.5); Total Bilirubin 0.5 mg/dL (0.2-1.2); Total Protein 4.9 g/dL (6.2-8.2)
[2020-02-08] MEDS ORDERED: FUROSEMIDE 10 MG/ML 4 ML VIAL IV STA (11:24)
--- NOTE | 2020-02-08 11:29 | P.PN ---
Subjective patient is seen in follow for acute kidney injury on chronic kidney disease. Creatinine 2.2 today. Urine output 375 mL in the last 24 hours. hemoglobin 6.8 this morning. she scheduled to receive 2 units of blood today. Denies chest pain or shortness of breath. No edema. Has a Granados catheter.blood pressure remains on the lower side in the systolic 80s to low 100s. Vital signs are stable. General: The patient appeared well nourished and normally developed. HEENT: Head exam is unremarkable. Neck is without jugular venous distension. LUNGS: Breath sounds decreased. HEART: Rate and Rhythm are regular. ABDOMEN: abdominal band present. Mild generalized tenderness. EXTREMITITES: No edema. Objective - Vital Signs Vital signs: Vital Signs Temp 98.1 F 02/08/20 10:30 Pulse 67 02/08/20 10:30 Resp 18 02/08/20 10:30 BP 101/66 02/08/20 10:30 Pulse Ox 96 02/08/20 10:30 Intake & Output 02/07/20 02/08/20 02/08/20 18:59 06:59 18:59 Intake Total 785 550 100 Output Total 250 250 Balance 535 300 100 Intake: Intake, IV Titration 425 350 Amount Levofloxacin 500Mg-D5w 100 Pmx 500 mg In Dextrose/ Water 1 100ml.bag @ 100 mls/hr IVPB Q24H ROS Rx#: [id number] Sodium Chloride 0.9% 1, 325 350 000 ml @ 75 mls/hr IV . [id number] ROS Rx#:[id number] Oral 360 200 100 Blood Product 0 Rc Pheresis 2 As3 Unit 0 [id number] Output: Urine 250 250 Straight 150 Other: Voiding Method Toilet Indwelling Catheter # Bowel Movements 1 - Labs CBC & Chem 7: 02/08/20 05:17 02/08/20 05:17 Labs: Abnormal Lab Results - Last 24 Hours (Table) 02/05/20 02/08/20 02/08/20 Range/Units 21:20 05:17 05:17 RBC 2.40 L (3.80-5.40) m/uL Hgb 6.8 L* (11.4-16.0) gm/dL Hct 22.4 L (34.0-46.0) % MCHC 30.2 L (31.0-37.0) g/dL RDW 17.8 H (11.5-15.5) % Lymphocytes # 0.7 L (1.0-4.8) k/uL Sodium 134 L (135-145) mmol/L Carbon Dioxide 20.4 L (21.6-31.8) mmol/L BUN 45.0 H (9.0-27.0) mg/dL Creatinine 2.2 H (0.6-1.5) mg/dL Est GFR (CKD-EPI)AfAm 25.8 L (60.0-200.0) Est GFR (CKD-EPI)NonAf 22.3 L (60.0-200.0) BUN/Creatinine Ratio 20.45 H (12.00-20.00) Ratio Calcium 7.6 L (8.7-10.3) mg/dL Total Protein 4.9 L (6.2-8.2) g/dL Albumin 2.40 L (3.80-4.90) g/dL Albumin/Globulin Ratio 0.96 L (1.60-3.17) g/dL Crossmatch See Detail Microbiology - Last 24 Hours (Table) 02/06/20 12:30 Urine Culture - Final Urine,Voided Assessment and Plan Plan: assessment: 1. Acute kidney injury secondary to ATN secondary to anemia and hypotension. Creatinine 2.2 today. Urine output 375 mL in the last 24 hours. 2. Chronic kidney disease stage III with baseline creatinine in the range of 1- 1.2 secondary to nephrosclerosis/diabetic kidney disease. 3. Recent hemicolectomy now with wound infection. On antibiotics. 4. Acute blood loss anemia. Scheduled to receive blood today. 5. Hyperkalemia secondary to acute kidney injury, metabolic acidosis and Aldactone. improved. 6. Diabetes mellitus. 7. Hypotension. Cortisol level within normal range. ?cirrhosis. 8. Metabolic acidosis secondary to acute kidney injury maintained on oral bicarb. Plan: Scheduled to receive 2 units of blood today. Lasix 40 mg IV once between blood transfusions. Add midodrine - hold for sbp >110. Add Aranesp. Continue to monitor renal function and urine output. Continue to assess daily for need for renal replacement therapy. This was discussed with the patient. Check CXR in AM.
[2020-02-08] MEDS ORDERED: DARBEPOETIN ALFA 40 MCG/0.4 ML SYRINGE SQ SCH (11:30)
[2020-02-08 12:22] LABS: C Reactive Protein 5.3 mg/dL (0.0-0.8)
--- NOTE | 2020-02-08 12:22 | P.PN ---
Subjective Progress Note Date: 02/08/20 CHIEF COMPLAINT: Surgical site infection HISTORY OF PRESENT ILLNESS: The patient is a 70-year-old female status post right hemicolectomy. She has history of COVID. She was admitted with anemia including surgical site infection. From discussion with nursing, she has moderate serosanguineous drainage along the inferior portion of her incision. Otherwise patient is tolerating regular diet. No reports of bowel movements in 2-3 days. No reports of active bleeding. Hemoglobin today is less than 7.0. She has pre-existing history of antibodies. ROS: No reports of nausea and vomiting. No fevers or chills. No new chest pain. PHYSICAL EXAM: VITAL SIGNS: Reviewed CONSTITUTIONAL: Well developed and in no acute distress. EYES: Conjuctivae without sclera icterus. Extraocular movements grossly intact. HEAD, EARS, NOSE, THROAT: Moist buccal mucosa. Head is atraumatic, normocephalic. Hears conversational speech. No nasal drainage. NECK: Supple. No thyroidomegaly. RESPIRATORY: Non-labored respirations and equal bilateral excursions. CARDIOVASCULAR: 2+ radial pulses. ABDOMEN: Dressing intact with serosanguineous drainage. Protuberant MUSCULOSKELETAL: No gross deformity of the lower extremities noted. No clubbing. No cyanosis. SKIN: Good skin turgor. Well perfused. NEUROLOGIC: Cranial nerves II through XII grossly intact. No focal or lateralizing signs. PSYCH: Appropriate affect. Alert and oriented to person, place and time. CLINICAL LABS: White blood cell count normal, 4.9. Hgb 7.5 up from 6.9, now down to 6.8 ASSESSMENT: 1. Surgical site infection 2. Acute blood loss anemia. PLAN: 1. Agree with blood transfusions. 2. May be additional diagnostic workup for persistent acute blood loss anemia without obvious signs of bleeding. 3. Diet as tolerated Objective - Vital Signs Vital signs: Vital Signs Temp 98.0 F 02/08/20 11:00 Pulse 63 02/08/20 11:00 Resp 18 02/08/20 11:00 BP 93/55 02/08/20 11:00 Pulse Ox 99 02/08/20 11:00 Intake & Output 02/07/20 02/08/20 02/08/20 18:59 06:59 18:59 Intake Total 785 550 100 Output Total 250 250 Balance 535 300 100 Intake: Intake, IV Titration 425 350 Amount Levofloxacin 500Mg-D5w 100 Pmx 500 mg In Dextrose/ Water 1 100ml.bag @ 100 mls/hr IVPB Q24H ROS Rx#: [id number] Sodium Chloride 0.9% 1, 325 350 000 ml @ 75 mls/hr IV . [id number] ROS Rx#:[id number] Oral 360 200 100 Blood Product 0 Rc Pheresis 2 As3 Unit 0 [id number] Output: Urine 250 250 Straight 150 Other: Voiding Method Toilet Indwelling Catheter # Bowel Movements 1 - Labs CBC & Chem 7: 02/08/20 05:17 02/08/20 05:17 Labs: Abnormal Lab Results - Last 24 Hours (Table) 02/05/20 02/08/20 02/08/20 Range/Units 21:20 05:17 05:17 RBC 2.40 L (3.80-5.40) m/uL Hgb 6.8 L* (11.4-16.0) gm/dL Hct 22.4 L (34.0-46.0) % MCHC 30.2 L (31.0-37.0) g/dL RDW 17.8 H (11.5-15.5) % Lymphocytes # 0.7 L (1.0-4.8) k/uL Sodium 134 L (135-145) mmol/L Carbon Dioxide 20.4 L (21.6-31.8) mmol/L BUN 45.0 H (9.0-27.0) mg/dL Creatinine 2.2 H (0.6-1.5) mg/dL Est GFR (CKD-EPI)AfAm 25.8 L (60.0-200.0) Est GFR (CKD-EPI)NonAf 22.3 L (60.0-200.0) BUN/Creatinine Ratio 20.45 H (12.00-20.00) Ratio Calcium 7.6 L (8.7-10.3) mg/dL Total Protein 4.9 L (6.2-8.2) g/dL Albumin 2.40 L (3.80-4.90) g/dL Albumin/Globulin Ratio 0.96 L (1.60-3.17) g/dL Crossmatch See Detail Microbiology - Last 24 Hours (Table) 02/06/20 12:30 Urine Culture - Final Urine,Voided Assessment and Plan (1) Surgical site infection Current Visit: Yes Status: Acute Code(s): T81.49XA - INFECTION FOLLOWING A PROCEDURE, OTHER SURGICAL SITE, INIT SNOMED Code(s): 17499743 (2) S/P right hemicolectomy Current Visit: Yes Status: Acute Code(s): Z90.49 - ACQUIRED ABSENCE OF OTHER SPECIFIED PARTS OF DIGESTIVE TRACT SNOMED Code(s): 646361197 (3) Anemia Current Visit: Yes Status: Acute Code(s): D64.9 - ANEMIA, UNSPECIFIED SNOMED Code(s): 118083429
[2020-02-08] MEDS: FUROSEMIDE 10 MG/ML 2 ML VIAL IV SCH (13:02)
[2020-02-08] MEDS: MIDODRINE 5 MG TAB PO SCH ×2 (14:31→17:09)
[2020-02-08] MEDS: LEVOFLOXACIN 250MG-D5W PMX 250 MG in DEXTROSE/WATER 1 50ML.BAG IVPB SCH (14:32)
[2020-02-08] MEDS: THIAMINE 100 MG TAB PO SCH (14:41)
[2020-02-08] MEDS: MULTIVITAMINS, THERA 1 EACH TAB PO SCH (14:41)
--- NOTE | 2020-02-09 01:23 | PN ---
PROGRESS NOTE DATE OF SERVICE: 02/08/2020 REASON FOR FOLLOWUP: Abdominal wound dehiscence and concern for infection. INTERVAL HISTORY: The patient is currently afebrile. Patient is breathing comfortably. Denies any chest pain or shortness of breath or cough. Abdominal pain is currently controlled. No nausea, vomiting or diarrhea. PHYSICAL EXAMINATION: Blood pressure 107/55, pulse of 76. Temperature 97.7. She is 95% on 2 L nasal cannula. General description: Middle-aged female lying in bed in no distress. Respiratory system: Unlabored breathing. Clear to auscultation anteriorly. Heart S1, S2. Regular rate and rhythm. ABDOMEN: Soft. The wound is currently packed. LABS: Hemoglobin 6.3, white count 4.2, BUN of 45, creatinine is 2.2. DIAGNOSTIC IMPRESSION AND PLAN: Patient with abdominal wound dehiscence with recent right hemicolectomy and concern for possible infection. Cultures currently pending. CT was reviewed with radiologist. No evidence of any deep abscess. Continue Levaquin and monitor clinical course closely. MMODL / IJN: [id number] /
[2020-02-09] MEDS: HYDROmorphone 0.5 MG/0.5 ML SYRINGE IVP PRN ×5 (02:54→21:04)
[2020-02-09] MEDS: PANTOPRAZOLE 40 MG TABLET PO SCH (05:38)
--- NOTE | 2020-02-09 08:09 | XR ---
EXAMINATION TYPE: XR chest 1V DATE OF EXAM: 02/09/2020 COMPARISON: 12/21/2019 HISTORY: 70-year-old female shortness of breath TECHNIQUE: Single frontal view of the chest is obtained. FINDINGS: Heart remains borderline enlarged. There is persistent interstitial prominence but with increasing ri ght upper lobe opacity. Unable to exclude opacity at the peripheral left base. IMPRESSION: 1. Similar borderline cardiomegaly and mild interstitial prominence which may be chronic. Correlate t o exclude mild pulmonary vascular congestion. 2. However, there is now right upper lobe airspace disease and possible airspace disease peripheral l eft base. Areas of developing pulmonary edema versus pneumonia are in the differential.
[2020-02-09 09:27] LABS: Glucose,Whole Blood 131 mg/dL (75-99)
[2020-02-09 09:27] LABS: Glucose,Whole Blood 189 mg/dL (75-99)
[2020-02-09 09:27] LABS: Glucose,Whole Blood 167 mg/dL (75-99)
[2020-02-09 09:27] LABS: Glucose,Whole Blood 140 mg/dL (75-99)
[2020-02-09 09:27] LABS: Glucose,Whole Blood 165 mg/dL (75-99)
[2020-02-09 09:27] LABS: Glucose,Whole Blood 200 mg/dL (75-99)
[2020-02-09 09:27] LABS: Glucose,Whole Blood 153 mg/dL (75-99)
[2020-02-09 09:28] LABS: Glucose,Whole Blood 116 mg/dL (75-99)
[2020-02-09 09:29] LABS: Glucose,Whole Blood 144 mg/dL (75-99)
[2020-02-09 09:29] LABS: Glucose,Whole Blood 255 mg/dL (75-99)
[2020-02-09 09:30] LABS: Glucose,Whole Blood 166 mg/dL (75-99)
[2020-02-09] MEDS: MIDODRINE 5 MG TAB PO SCH ×3 (09:40→17:38)
[2020-02-09] MEDS: RIFAXIMIN 550 MG TABLET PO SCH ×2 (09:40→20:54)
[2020-02-09] MEDS: SERTRALINE 25 MG TAB PO SCH (09:41)
[2020-02-09] MEDS: ANASTROZOLE 1 MG TAB PO SCH (09:41)
[2020-02-09] MEDS: ZINC SULFATE 220 MG CAP PO SCH (09:41)
[2020-02-09] MEDS: FERROUS SULFATE 325 MG TAB PO SCH (09:42)
[2020-02-09] MEDS: GABAPENTIN 100 MG CAP PO SCH ×3 (09:42→23:38)
[2020-02-09] MEDS: ASCORBIC ACID 500 MG TAB PO SCH (09:43)
[2020-02-09] MEDS: FOLIC ACID 1 MG TAB PO SCH (09:43)
[2020-02-09] MEDS: SODIUM BICARBONATE TAB 650 MG TAB PO SCH ×4 (09:43→20:54)
[2020-02-09] MEDS: SENNOSIDES 8.6 MG TAB PO SCH ×2 (09:43→21:03)
[2020-02-09] MEDS: METOPROLOL TARTRATE 12.5 MG TAB PO SCH ×2 (09:44→20:53)
[2020-02-09] MEDS: LACTULOSE 20 GM/30 ML CUP PO SCH ×2 (09:44→20:54)
[2020-02-09] MEDS: SODIUM CHLORIDE 0.9% 1,000 ML IV SCH (09:44)
[2020-02-09 09:49] LABS: African American GFR (CKD) 25.8 (60.0-200.0); Albumin 2.5 g/dL (3.80-4.90); Albumin/Globulin Ratio 0.96 (1.60-3.17); Anion Gap 6.1 mmol/L (4.00-12.00); BUN/Creat Ratio 20.45 Ratio (12.00-20.00); Calcium 7.6 mg/dL (8.7-10.3); Carbon Dioxide 21.9 mmol/L (21.6-31.8); Globulin 2.6 g/dL (1.6-3.3); Non-African American GFR(CKD) 22.3 (60.0-200.0); Potassium 4.5 mmol/L (3.5-5.5); Total Protein 5.1 g/dL (6.2-8.2)
--- NOTE | 2020-02-09 10:15 | P.PN ---
Subjective Progress Note Date: 02/09/20 CHIEF COMPLAINT: Surgical site infection HISTORY OF PRESENT ILLNESS: The patient is a 70-year-old female status post right hemicolectomy. She has history of COVID. She was admitted with anemia including surgical site infection. Notified from nursing for increased drainage from midline incision. No increased abdominal pain. ROS: No reports of nausea and vomiting. No fevers or chills. No new chest pain. PHYSICAL EXAM: VITAL SIGNS: Reviewed CONSTITUTIONAL: Well developed and in no acute distress. EYES: Conjuctivae without sclera icterus. Extraocular movements grossly intact. HEAD, EARS, NOSE, THROAT: Moist buccal mucosa. Head is atraumatic, normocephalic. Hears conversational speech. No nasal drainage. NECK: Supple. No thyroidomegaly. RESPIRATORY: Non-labored respirations and equal bilateral excursions. CARDIOVASCULAR: 2+ radial pulses. ABDOMEN: Serous drainage from midline incision. No peritonitis. Moderate pannus. MUSCULOSKELETAL: No gross deformity of the lower extremities noted. No clubbing. No cyanosis. SKIN: Good skin turgor. Well perfused. NEUROLOGIC: Cranial nerves II through XII grossly intact. No focal or lateralizing signs. PSYCH: Appropriate affect. Alert and oriented to person, place and time. CLINICAL LABS: Labs pending. ASSESSMENT: 1. Surgical site infection 2. Acute blood loss anemia. 3. Ascites PLAN: 1. Repeat hemoglobin. 2. Urostomy bag for drainage. 3. Monitor hemoglobin 4. Continue antibiotics. Objective - Vital Signs Vital signs: Vital Signs Temp 97.9 F 02/09/20 07:54 Pulse 65 02/09/20 07:54 Resp 16 02/09/20 07:54 BP 96/58 02/09/20 07:54 Pulse Ox 95 02/09/20 07:54 Intake & Output 02/08/20 02/09/20 02/09/20 18:59 06:59 18:59 Intake Total 730 310 Output Total 650 1000 Balance 80 -690 Intake: Oral 420 Blood Product 310 310 Rc Pheresis 2 As3 Unit 0 310 [id number] Rc Pheresis 2 As3 Unit 310 [id number] Output: Urine 650 1000 Straight 500 Other: Voiding Method Indwelling Catheter # Voids 1 # Bowel Movements 1 1 - Labs CBC & Chem 7: 02/08/20 05:17 02/09/20 06:53 Labs: Abnormal Lab Results - Last 24 Hours (Table) 02/05/20 02/06/20 02/06/20 Range/Units 21:20 08:38 21:26 Sodium (135-145) mmol/L BUN (9.0-27.0) mg/dL Creatinine (0.6-1.5) mg/dL Est GFR (CKD-EPI)AfAm (60.0-200.0) Est GFR (CKD-EPI)NonAf (60.0-200.0) BUN/Creatinine Ratio (.00-.00) Ratio Glucose (70-110) mg/dL POC Glucose (mg/dL) 116 H 144 H (75-99) mg/dL Calcium (8.7-10.3) mg/dL C-Reactive Protein (0.0-0.8) mg/dL Total Protein (6.2-8.2) g/dL Albumin (3.80-4.90) g/dL Albumin/Globulin Ratio (1.60-3.17) g/dL Crossmatch See Detail 02/07/20 02/07/20 02/07/20 Range/Units 07:26 11:44 16:38 Sodium (135-145) mmol/L BUN (9.0-27.0) mg/dL Creatinine (0.6-1.5) mg/dL Est GFR (CKD-EPI)AfAm (60.0-200.0) Est GFR (CKD-EPI)NonAf (60.0-200.0) BUN/Creatinine Ratio (.00-.00) Ratio Glucose (70-110) mg/dL POC Glucose (mg/dL) 140 H 165 H 153 H (75-99) mg/dL Calcium (8.7-10.3) mg/dL C-Reactive Protein (0.0-0.8) mg/dL Total Protein (6.2-8.2) g/dL Albumin (3.80-4.90) g/dL Albumin/Globulin Ratio (1.60-3.17) g/dL Crossmatch 02/07/20 02/08/20 02/08/20 Range/Units 20:23 05:17 07:29 Sodium (135-145) mmol/L BUN (9.0-27.0) mg/dL Creatinine (0.6-1.5) mg/dL Est GFR (CKD-EPI)AfAm (60.0-200.0) Est GFR (CKD-EPI)NonAf (60.0-200.0) BUN/Creatinine Ratio (12.00-20.00) Ratio Glucose (70-110) mg/dL POC Glucose (mg/dL) 167 H 131 H (75-99) mg/dL Calcium (8.7-10.3) mg/dL C-Reactive Protein 5.3 H (0.0-0.8) mg/dL Total Protein (6.2-8.2) g/dL Albumin (3.80-4.90) g/dL Albumin/Globulin Ratio (1.60-3.17) g/dL Crossmatch 02/08/20 02/08/20 02/08/20 Range/Units 11:39 16:46 20:34 Sodium (135-145) mmol/L BUN (9.0-27.0) mg/dL Creatinine (0.6-1.5) mg/dL Est GFR (CKD-EPI)AfAm (60.0-200.0) Est GFR (CKD-EPI)NonAf (60.0-200.0) BUN/Creatinine Ratio (12.00-20.00) Ratio Glucose (70-110) mg/dL POC Glucose (mg/dL) 189 H 200 H 255 H (75-99) mg/dL Calcium (8.7-10.3) mg/dL C-Reactive Protein (0.0-0.8) mg/dL Total Protein (6.2-8.2) g/dL Albumin (3.80-4.90) g/dL Albumin/Globulin Ratio (1.60-3.17) g/dL Crossmatch 02/09/20 02/09/20 Range/Units 06:53 07:36 Sodium 134 L (135-145) mmol/L BUN 45.0 H (9.0-27.0) mg/dL Creatinine 2.2 H (0.6-1.5) mg/dL Est GFR (CKD-EPI)AfAm 25.8 L (60.0-200.0) Est GFR (CKD-EPI)NonAf 22.3 L (60.0-200.0) BUN/Creatinine Ratio 20.45 H (12.00-20.00) Ratio Glucose 161 H (70-110) mg/dL POC Glucose (mg/dL) 166 H (75-99) mg/dL Calcium 7.6 L (8.7-10.3) mg/dL C-Reactive Protein (0.0-0.8) mg/dL Total Protein 5.1 L (6.2-8.2) g/dL Albumin 2.50 L (3.80-4.90) g/dL Albumin/Globulin Ratio 0.96 L (1.60-3.17) g/dL Crossmatch Microbiology - Last 24 Hours (Table) 02/06/20 12:30 Urine Culture - Final Urine,Voided Assessment and Plan (1) Surgical site infection Current Visit: Yes Status: Acute Code(s): T81.49XA - INFECTION FOLLOWING A PROCEDURE, OTHER SURGICAL SITE, INIT SNOMED Code(s): 67439337 (2) S/P right hemicolectomy Current Visit: Yes Status: Acute Code(s): Z90.49 - ACQUIRED ABSENCE OF OTHER SPECIFIED PARTS OF DIGESTIVE TRACT SNOMED Code(s): 405883544 (3) Anemia Current Visit: Yes Status: Acute Code(s): D64.9 - ANEMIA, UNSPECIFIED SNOMED Code(s): 815141359
[2020-02-09] MEDS ORDERED: FUROSEMIDE 10 MG/ML 4 ML VIAL IV STA (11:31)
--- NOTE | 2020-02-09 11:35 | P.PN ---
Subjective patient is seen in follow for acute kidney injury on chronic kidney disease. Creatinine stable at 2.2 today. Has a Granados catheter. Urine output also improved - over 1.5 L in the last 24 hours. She received 2 units of packed red cells as well as a dose of IV Lasix yesterday. Labs from today are pending. Denies chest pain or shortness of breath. Vital signs are stable. General: The patient appeared well nourished and normally developed. HEENT: Head exam is unremarkable. Neck is without jugular venous distension. LUNGS: Breath sounds decreased. HEART: Rate and Rhythm are regular. ABDOMEN: abdominal band present. Mild generalized tenderness. EXTREMITITES: 2+ edema. Objective - Vital Signs Vital signs: Vital Signs Temp 97.9 F 02/09/20 07:54 Pulse 65 02/09/20 07:54 Resp 16 02/09/20 07:54 BP 96/58 02/09/20 07:54 Pulse Ox 95 02/09/20 07:54 Intake & Output 02/08/20 02/09/20 02/09/20 18:59 06:59 18:59 Intake Total 730 310 Output Total 650 1000 Balance 80 -690 Intake: Oral 420 Blood Product 310 310 Rc Pheresis 2 As3 Unit 0 310 [id number] Rc Pheresis 2 As3 Unit 310 [id number] Output: Urine 650 1000 Straight 500 Other: Voiding Method Indwelling Catheter # Voids 1 # Bowel Movements 1 1 - Labs CBC & Chem 7: 02/08/20 05:17 02/09/20 06:53 Labs: Abnormal Lab Results - Last 24 Hours (Table) 02/05/20 02/06/20 02/06/20 Range/Units 21:20 08:38 21:26 Sodium (135-145) mmol/L BUN (9.0-27.0) mg/dL Creatinine (0.6-1.5) mg/dL Est GFR (CKD-EPI)AfAm (60.0-200.0) Est GFR (CKD-EPI)NonAf (60.0-200.0) BUN/Creatinine Ratio (12.00-20.00) Ratio Glucose (70-110) mg/dL POC Glucose (mg/dL) 116 H 144 H (75-99) mg/dL Calcium (8.7-10.3) mg/dL C-Reactive Protein (0.0-0.8) mg/dL Total Protein (6.2-8.2) g/dL Albumin (3.80-4.90) g/dL Albumin/Globulin Ratio (1.60-3.17) g/dL Crossmatch See Detail 02/07/20 02/07/20 02/07/20 Range/Units 07:26 11:44 16:38 Sodium (135-145) mmol/L BUN (9.0-27.0) mg/dL Creatinine (0.6-1.5) mg/dL Est GFR (CKD-EPI)AfAm (60.0-200.0) Est GFR (CKD-EPI)NonAf (60.0-200.0) BUN/Creatinine Ratio (.00-.) Ratio Glucose (70-110) mg/dL POC Glucose (mg/dL) 140 H 165 H 153 H (75-99) mg/dL Calcium (8.7-10.3) mg/dL C-Reactive Protein (0.0-0.8) mg/dL Total Protein (6.2-8.2) g/dL Albumin (3.80-4.90) g/dL Albumin/Globulin Ratio (1.60-3.17) g/dL Crossmatch 02/07/20 02/08/20 02/08/20 Range/Units 20:23 05:17 07:29 Sodium (135-145) mmol/L BUN (9.0-27.0) mg/dL Creatinine (0.6-1.5) mg/dL Est GFR (CKD-EPI)AfAm (60.0-200.0) Est GFR (CKD-EPI)NonAf (60.0-200.0) BUN/Creatinine Ratio (12.00-.00) Ratio Glucose (70-110) mg/dL POC Glucose (mg/dL) 167 H 131 H (75-99) mg/dL Calcium (8.7-10.3) mg/dL C-Reactive Protein 5.3 H (0.0-0.8) mg/dL Total Protein (6.2-8.2) g/dL Albumin (3.80-4.90) g/dL Albumin/Globulin Ratio (1.60-3.17) g/dL Crossmatch 02/08/20 02/08/20 02/08/20 Range/Units 11:39 16:46 20:34 Sodium (135-145) mmol/L BUN (9.0-27.0) mg/dL Creatinine (0.6-1.5) mg/dL Est GFR (CKD-EPI)AfAm (60.0-200.0) Est GFR (CKD-EPI)NonAf (60.0-200.0) BUN/Creatinine Ratio (12.00-20.00) Ratio Glucose (70-110) mg/dL POC Glucose (mg/dL) 189 H 200 H 255 H (75-99) mg/dL Calcium (8.7-10.3) mg/dL C-Reactive Protein (0.0-0.8) mg/dL Total Protein (6.2-8.2) g/dL Albumin (3.80-4.90) g/dL Albumin/Globulin Ratio (1.60-3.17) g/dL Crossmatch 02/09/20 02/09/20 Range/Units 06:53 07:36 Sodium 134 L (135-145) mmol/L BUN 45.0 H (9.0-27.0) mg/dL Creatinine 2.2 H (0.6-1.5) mg/dL Est GFR (CKD-EPI)AfAm 25.8 L (60.0-200.0) Est GFR (CKD-EPI)NonAf 22.3 L (60.0-200.0) BUN/Creatinine Ratio 20.45 H (12.00-20.00) Ratio Glucose 161 H (70-110) mg/dL POC Glucose (mg/dL) 166 H (75-99) mg/dL Calcium 7.6 L (8.7-10.3) mg/dL C-Reactive Protein (0.0-0.8) mg/dL Total Protein 5.1 L (6.2-8.2) g/dL Albumin 2.50 L (3.80-4.90) g/dL Albumin/Globulin Ratio 0.96 L (1.60-3.17) g/dL Crossmatch Microbiology - Last 24 Hours (Table) 02/06/20 12:30 Urine Culture - Final Urine,Voided Assessment and Plan Plan: assessment: 1. Acute kidney injury secondary to ATN secondary to anemia and hypotension. Creatinine stable at 2.2 today. Urine output over 1.5 L in the last 24 hours. 2. Chronic kidney disease stage III with baseline creatinine in the range of 1- 1.2 secondary to nephrosclerosis/diabetic kidney disease. 3. Recent hemicolectomy now with wound infection. On antibiotics. 4. Acute blood loss anemia. Status post blood transfusion this admission. Also on Aranesp. 5. Hyperkalemia secondary to acute kidney injury, metabolic acidosis and Aldactone. Improved with medical management. 6. Diabetes mellitus. 7. Hypotension. Cortisol level within normal range. ?cirrhosis. Maintained on midodrine. 8. Metabolic acidosis secondary to acute kidney injury maintained on oral bicarb. Better. 9. Lower extremity edema. Plan: Lasix 40 mg IV once today. Increase midodrine to 10 mg 3 times daily - hold for sbp >110. Continue to monitor renal function and urine output.
[2020-02-09 11:41] LABS: Glucose,Whole Blood 198 mg/dL (75-99)
[2020-02-09 12:15] LABS: Anisocytosis Slight; Basophils % (A) 0 %; Eosinophils # (A) 0.1 k/uL (0-0.7); Eosinophils % (A) 2 %; HCT 26.7 % (34.0-46.0); Hypochromasia Marked; Lymphocytes # (A) 0.6 k/uL (1.0-4.8); Lymphocytes % (A) 9 %; MCH 27.6 pg (25.0-35.0); MCV 91.8 fL (80.0-100.0); Mean Platelet Volume 9.9; Monocytes # (A) 0.4 k/uL (0-1.0); Monocytes % (A) 6 %; Neutrophils # (A) 4.8 k/uL (1.3-7.7); Neutrophils % (A) 80 %; Platelet Count 155 k/uL (150-450); Poikilocytosis Slight; RBC 2.91 m/uL (3.80-5.40); RDW 18.4 % (11.5-15.5); WBC 5.9 k/uL (3.8-10.6)
[2020-02-09] MEDS: LEVOFLOXACIN 250MG-D5W PMX 250 MG in DEXTROSE/WATER 1 50ML.BAG IVPB SCH (12:25)
[2020-02-09 16:52] LABS: Glucose,Whole Blood 203 mg/dL (75-99)
--- NOTE | 2020-02-09 17:01 | PN ---
PROGRESS NOTE DATE OF SERVICE: 02/09/2020 REASON FOR FOLLOWUP: Abdominal wound dehiscence and a question of secondary infection. INTERVAL COURSE: The patient is currently afebrile. Patient is breathing comfortably. The patient did have a colostomy bag applied abdominal incision currently draining serous fluid. No chest pain, shortness of breath. No cough. PHYSICAL EXAMINATION: Blood pressure 107/63, with a pulse of 66. Temperature 97.7. She is 93% on room air. General description: The patient is an elderly female lying in bed in no distress. Respiratory system: Unlabored breathing, clear to auscultation anteriorly. Heart S1, S2. Regular rate and rhythm. ABDOMEN: Soft. Wound is currently covered with colostomy bag with drainage. LABS: Hemoglobin 8, white count 5.9. BUN of 25. Creatinine 2.2. Local cultures so far negative. DIAGNOSTIC IMPRESSION AND PLAN: Patient with an abdominal wound dehiscence with recent right hemicolectomy, possible mechanical symptoms now mostly with serous fluid draining possibly ascites. infected fluid. He is on empiric Levaquin to continue. If the culture negative, Levaquin can be discontinued and continue supportive care. MMODL / IJN: [id number] /
[2020-02-09] MEDS: THIAMINE 100 MG TAB PO SCH (17:38)
[2020-02-09] MEDS: MULTIVITAMINS, THERA 1 EACH TAB PO SCH (17:38)
[2020-02-09 20:29] LABS: Glucose,Whole Blood 168 mg/dL (75-99)
[2020-02-10] MEDS: PANTOPRAZOLE 40 MG TABLET PO SCH (05:44)
[2020-02-10 08:05] LABS: Glucose,Whole Blood 149 mg/dL (75-99)
[2020-02-10] MEDS: SENNOSIDES 8.6 MG TAB PO SCH ×2 (09:17→19:36)
[2020-02-10] MEDS: SODIUM BICARBONATE TAB 650 MG TAB PO SCH ×4 (09:17→22:48)
[2020-02-10] MEDS: FOLIC ACID 1 MG TAB PO SCH (09:18)
[2020-02-10] MEDS: MIDODRINE 5 MG TAB PO SCH ×3 (09:18→16:55)
[2020-02-10] MEDS: RIFAXIMIN 550 MG TABLET PO SCH ×2 (09:18→19:37)
[2020-02-10] MEDS: SERTRALINE 25 MG TAB PO SCH (09:18)
[2020-02-10] MEDS: ASCORBIC ACID 500 MG TAB PO SCH (09:18)
[2020-02-10] MEDS: ZINC SULFATE 220 MG CAP PO SCH (09:18)
[2020-02-10] MEDS: ANASTROZOLE 1 MG TAB PO SCH (09:19)
[2020-02-10] MEDS: GABAPENTIN 100 MG CAP PO SCH ×3 (09:19→19:36)
[2020-02-10] MEDS: FERROUS SULFATE 325 MG TAB PO SCH (09:19)
[2020-02-10] MEDS: METOPROLOL TARTRATE 12.5 MG TAB PO SCH ×2 (09:20→19:37)
[2020-02-10] MEDS: LACTULOSE 20 GM/30 ML CUP PO SCH ×2 (09:20→19:37)
[2020-02-10] MEDS: HYDROmorphone 0.5 MG/0.5 ML SYRINGE IVP PRN (09:41)
[2020-02-10 09:51] LABS: Calcium 7.7 mg/dL (8.7-10.3); Potassium 4.3 mmol/L (3.5-5.5)
[2020-02-10 11:32] LABS: Glucose,Whole Blood 142 mg/dL (75-99)
[2020-02-10] MEDS ORDERED: LIDOCAINE 1% INJ 10MG/ML (20 ML MDV) ONE (12:20)
--- NOTE | 2020-02-10 14:04 | P.PN ---
Progress Note - Text Progress Note Date: 02/10/20 The patient appears stable. She has had significantly less drainage from her abdominal wall incision. There is a slight purulent color to the drainage. On exam vessels are stable. Abdomen soft. We will infection. Patient will continue to have local wound care. We will observe her closely.
--- NOTE | 2020-02-10 14:06 | PN ---
PROGRESS NOTE Patient is seen for followup for acute kidney injury on top of chronic kidney disease. Serum creatinine has been stable with creatinine at about 2.0 mg/dL which is actually down from 2.2 yesterday. Currently patient is not on any IV fluids or diuretics. PHYSICAL EXAMINATION: On examination today, blood pressure was 108/57, heart rate 76 per minute. She is afebrile. EXAMINATION OF THE HEART: S1, S2. EXAMINATION OF THE LUNGS: Decreased breath sounds at bases. Abdomen is soft. Morbidly obese. Examination of lower extremities shows edema 1+ bilaterally. Chronic skin changes noted bilaterally. TELECOMMUNICATIONS REPAIRER EXAM: Grossly intact. LABS: Labs show sodium 136, potassium 4.3, BUN 46, serum creatinine 2.0. CO2 is 24. Magnesium 2.0. ASSESSMENT: 1. Acute kidney injury, nonoliguric, currently improved. Creatinine down to 2.0 from 2.2. Etiology was anemia and hypotension. 2. Chronic kidney disease stage 3 baseline creatinine 1-1.2 secondary to nephrosclerosis and diabetic kidney disease. 3. Recent hemicolectomy with wound infection, currently maintained on antibiotics. 4. Acute blood loss anemia, status post packed RBCs transfusion. Also maintained on Aranesp. 5. Hypotension, maintained on midodrine. 6. Metabolic acidosis associated with renal failure, maintained on oral sodium bicarb. 7. Chronic lower extremity edema. PLAN: Add oral Lasix once a day. Repeat labs in a.m. Continue with antibiotics. MMODL / IJN: [id number] /
[2020-02-10] MEDS: LEVOFLOXACIN 250MG-D5W PMX 250 MG in DEXTROSE/WATER 1 50ML.BAG IVPB SCH (16:54)
[2020-02-10] MEDS: THIAMINE 100 MG TAB PO SCH (16:54)
[2020-02-10] MEDS: MULTIVITAMINS, THERA 1 EACH TAB PO SCH (16:54)
[2020-02-10 17:03] LABS: Glucose,Whole Blood 147 mg/dL (75-99)
[2020-02-10 19:37] LABS: Glucose,Whole Blood 162 mg/dL (75-99)
--- NOTE | 2020-02-10 20:46 | P.PN ---
Subjective Progress Note Date: 02/07/20 Principal diagnosis: Severe acute symptomatic anemia Acute kidney injury Hyperkalemia Anterior abdominal wound Severe Morbid obesity and BMI of over 58 Breast cancer status post bilateral right-sided mastectomy status post chemotherapy type 2 diabetes mellitus Peripheral neuropathy Cirrhosis of the liver Potential hypertensive cardiovascular disease Seizure disorder History of diabetic bed for neuropathy History of hepatic encephalopathy 02/07/2020, patient seen eval examined during the rounds labs reviewed medications reviewed, patient has been evaluated by renal service as well as infectious disease and general surgery, patient has significant discharge noted from the abdominal wound, status post 1 unit of packed RBC hemoglobin improved to 7.5, potassium is still elevated 5.4, BUN and creatinine went up to 45 and 2.0, patient remains on Levaquin, Patient is a 70-year-old who was found to be anemic, patient is a resident of [facility], she was found to have low hemoglobin, it appears that patient was the in the hospital discharged to [facility] on February 02, she started having progressive abdominal pain in the last few days, also has gene ralized weakness, he shouldn't noted to have not only acute kidney injury by severe anemia labs reviewed hemoglobin is 6.8 BUN and creatinine 42 and 1.8, and also hyperkalemia patient has been admitted with surgery consult infectious disease consult and renal consult, Objective - Vital Signs Vital signs: Vital Signs Temp 97.6 F 02/07/20 14:00 Pulse 85 02/07/20 14:00 Resp 16 02/07/20 14:00 BP 84/52 02/07/20 14:00 Pulse Ox 95 02/07/20 14:00 Intake & Output 02/06/20 02/07/20 02/07/20 18:59 06:59 18:59 Intake Total 370 200 360 Output Total 550 250 100 Balance -180 -50 260 Intake: Oral 60 200 360 Blood Product 310 Rc Pheresis As-3 Unit 310 [id number] Output: Urine 550 250 100 Straight 150 250 Other: Voiding Method Toilet # Voids 1 # Bowel Movements 1 - Exam - Constitutional General appearance: average body habitus, cooperative, disheveled, morbidly obese - EENT Eyes: PERRLA Ears: bilateral: normal - Neck Neck: normal ROM Carotids: bilateral: upstroke normal - Respiratory Respiratory: bilateral: CTA - Cardiovascular Rhythm: regular Heart sounds: normal: S1, S2 - Gastrointestinal Due to recent hemicolectomy abdominal wound is present with dressing tenderness is present General gastrointestinal: soft - Neurologic Neurologic: CNII-XII intact - Musculoskeletal Musculoskeletal: generalized weakness, strength equal bilaterally - Psychiatric Psychiatric: A&O x's 3, appropriate affect, intact judgment & insight - Labs CBC & Chem 7: 02/09/20 06:53 02/10/20 06:00 Labs: Abnormal Lab Results - Last 24 Hours (Table) 02/05/20 02/06/20 02/07/20 Range/Units 21:20 19:40 07:00 RBC 2.66 L (3.80-5.40) m/uL Hgb 7.5 L (11.4-16.0) gm/dL Hct 25.2 L (34.0-46.0) % MCHC 29.6 L (31.0-37.0) g/dL RDW 17.7 H (11.5-15.5) % Lymphocytes # 0.6 L (1.0-4.8) k/uL PT (9.9-11.9) sec INR (0.90-1.11) Sodium 133 L (137-145) mmol/L Potassium 5.6 H (3.5-5.1) mmol/L Carbon Dioxide (21.6-31.8) mmol/L BUN 43 H (7-17) mg/dL Creatinine 1.81 H (0.52-1.04) mg/dL Est GFR (CKD-EPI)AfAm (60.0-200.0) Est GFR (CKD-EPI)NonAf (60.0-200.0) BUN/Creatinine Ratio (12.00-20.00) Ratio Glucose 151 H (74-99) mg/dL Calcium 8.0 L (8.4-10.2) mg/dL Total Protein (6.2-8.2) g/dL Albumin (3.80-4.90) g/dL Albumin/Globulin Ratio (1.60-3.17) g/dL Crossmatch See Detail 02/07/20 02/07/20 Range/Units 07:00 07:00 RBC (3.80-5.40) m/uL Hgb (11.4-16.0) gm/dL Hct (34.0-46.0) % MCHC (31.0-37.0) g/dL RDW (11.5-15.5) % Lymphocytes # (1.0-4.8) k/uL PT 12.9 H (9.9-11.9) sec INR 1.21 H (0.90-1.11) Sodium 134 L (137-145) mmol/L Potassium 5.9 H (3.5-5.1) mmol/L Carbon Dioxide 19.4 L (21.6-31.8) mmol/L BUN 45.0 H (7-17) mg/dL Creatinine 2.0 H (0.52-1.04) mg/dL Est GFR (CKD-EPI)AfAm 29.0 L (60.0-200.0) Est GFR (CKD-EPI)NonAf 25.0 L (60.0-200.0) BUN/Creatinine Ratio 22.50 H (12.00-20.00) Ratio Glucose 125 H (74-99) mg/dL Calcium 7.9 L (8.4-10.2) mg/dL Total Protein 5.5 L (6.2-8.2) g/dL Albumin 2.70 L (3.80-4.90) g/dL Albumin/Globulin Ratio 0.96 L (1.60-3.17) g/dL Crossmatch Microbiology - Last 24 Hours (Table) 02/06/20 13:00 Gram Stain - Preliminary Abdomen Wound Culture - Preliminary 02/06/20 12:30 Urine Culture - Preliminary Urine,Voided Assessment and Plan Assessment: Severe acute symptomatic anemia Acute kidney injury Hyperkalemia Anterior abdominal wound Severe Morbid obesity and BMI of over 58 Breast cancer status post bilateral right-sided mastectomy status post chemotherapy type 2 diabetes mellitus Peripheral neuropathy Cirrhosis of the liver Potential hypertensive cardiovascular disease Seizure disorder History of diabetic bed for neuropathy History of hepatic encephalopathy Plan: Patient to be transfused with packed blood however due to antibodies there is a delay Surgical consultation Renal consultation ID consultation Resume home medications Further plan of care as per clinical response of the patient Monitor electrolytes and labs closely including hemoglobin, send the phone Gram stain and culture Time with Patient: Greater than 30
--- NOTE | 2020-02-10 20:50 | P.PN ---
Subjective Progress Note Date: 02/08/20 Principal diagnosis: Severe acute symptomatic anemia Acute kidney injury Hyperkalemia Anterior abdominal wound Severe Morbid obesity and BMI of over 58 Breast cancer status post bilateral right-sided mastectomy status post chemotherapy type 2 diabetes mellitus Peripheral neuropathy Cirrhosis of the liver Potential hypertensive cardiovascular disease Seizure disorder History of diabetic bed for neuropathy History of hepatic encephalopathy 02/08/2020, patient seen and evaluated examined, patient hemoglobin went down status post transfusion latest hemoglobin improved to 8, BUN/creatinine remains stable 45 and 2.2, patient remains afebrile general surgery have recommended to put a urine bag around the wound due to discharge 02/07/2020, patient seen eval examined during the rounds labs reviewed medications reviewed, patient has been evaluated by renal service as well as infectious disease and general surgery, patient has significant discharge noted from the abdominal wound, status post 1 unit of packed RBC hemoglobin improved to 7.5, potassium is still elevated 5.4, BUN and creatinine went up to 45 and 2.0, patient remains on Levaquin, Patient is a 70-year-old who was found to be anemic, patient is a resident of [facility], she was found to have low hemoglobin, it appears that patient was the in the hospital discharged to [facility] on February 02, she started having progressive abdominal pain in the last few days, also has generalized weakness, he shouldn't noted to have not only acute kidney injury by severe anemia labs reviewed hemoglobin is 6.8 BUN and creatinine 42 and 1.8, and also hyperkalemia patient has been admitted with surgery consult infectious disease consult and renal consult, Objective - Vital Signs Vital signs: Vital Signs Temp 98.0 F 02/08/20 11:00 Pulse 63 02/08/20 11:00 Resp 18 02/08/20 11:00 BP 93/55 02/08/20 11:00 Pulse Ox 99 02/08/20 11:00 Intake & Output 02/07/20 02/08/20 02/08/20 18:59 06:59 18:59 Intake Total 785 550 100 Output Total 250 250 Balance 535 300 100 Intake: Intake, IV Titration 425 350 Amount Levofloxacin 500Mg-D5w 100 Pmx 500 mg In Dextrose/ Water 1 100ml.bag @ 100 mls/hr IVPB Q24H [facility] Rx#: [id number] Sodium Chloride 0.9% 1, 325 350 000 ml @ 75 mls/hr IV . [id number] [facility] Rx#:[id number] Oral 360 200 100 Blood Product 0 Rc Pheresis 2 As3 Unit 0 [id number] Output: Urine 250 250 Straight 150 Other: Voiding Method Toilet Indwelling Catheter # Bowel Movements 1 - Exam - Constitutional General appearance: average body habitus, cooperative, disheveled, morbidly obese - EENT Eyes: PERRLA Ears: bilateral: normal - Neck Neck: normal ROM Carotids: bilateral: upstroke normal - Respiratory Respiratory: bilateral: CTA - Cardiovascular Rhythm: regular Heart sounds: normal: S1, S2 - Gastrointestinal Due to recent hemicolectomy abdominal wound is present with dressing tenderness is present soaked dressing General gastrointestinal: soft - Neurologic Neurologic: CNII-XII intact - Musculoskeletal Musculoskeletal: generalized weakness, strength equal bilaterally - Psychiatric Psychiatric: A&O x's 3, appropriate affect, intact judgment & insight - Labs CBC & Chem 7: 02/09/20 06:53 02/10/20 06:00 Labs: Abnormal Lab Results - Last 24 Hours (Table) 02/05/20 02/08/20 02/08/20 Range/Units 21:20 05:17 05:17 RBC 2.40 L (3.80-5.40) m/uL Hgb 6.8 L* (11.4-16.0) gm/dL Hct 22.4 L (34.0-46.0) % MCHC 30.2 L (31.0-37.0) g/dL RDW 17.8 H (11.5-15.5) % Lymphocytes # 0.7 L (1.0-4.8) k/uL Sodium 134 L (135-145) mmol/L Carbon Dioxide 20.4 L (21.6-31.8) mmol/L BUN 45.0 H (9.0-27.0) mg/dL Creatinine 2.2 H (0.6-1.5) mg/dL Est GFR (CKD-EPI)AfAm 25.8 L (60.0-200.0) Est GFR (CKD-EPI)NonAf 22.3 L (60.0-200.0) BUN/Creatinine Ratio 20.45 H (12.00-20.00) Ratio Calcium 7.6 L (8.7-10.3) mg/dL C-Reactive Protein 5.3 H (0.0-0.8) mg/dL Total Protein 4.9 L (6.2-8.2) g/dL Albumin 2.40 L (3.80-4.90) g/dL Albumin/Globulin Ratio 0.96 L (1.60-3.17) g/dL Crossmatch See Detail Microbiology - Last 24 Hours (Table) 02/06/20 12:30 Urine Culture - Final Urine,Voided Assessment and Plan Assessment: Severe acute symptomatic anemia Acute kidney injury Hyperkalemia Anterior abdominal wound Severe Morbid obesity and BMI of over 58 Breast cancer status post bilateral right-sided mastectomy status post chemotherapy type 2 diabetes mellitus Peripheral neuropathy Cirrhosis of the liver Potential hypertensive cardiovascular disease Seizure disorder History of diabetic bed for neuropathy History of hepatic encephalopathy Plan: Patient to be transfused as needed hemoglobin improved now Surgical consultation Renal consultation Resume home medications Further plan of care as per clinical response of the patient Continue IV antibiotics gentle rehydration patient will need PT OT evaluation Time with Patient: Greater than 30
--- NOTE | 2020-02-10 20:53 | P.PN ---
Subjective Progress Note Date: 02/09/20 Principal diagnosis: Severe acute symptomatic anemia Acute kidney injury Hyperkalemia Anterior abdominal wound Severe Morbid obesity and BMI of over 58 Breast cancer status post bilateral right-sided mastectomy status post chemotherapy type 2 diabetes mellitus Peripheral neuropathy Cirrhosis of the liver Potential hypertensive cardiovascular disease Seizure disorder History of diabetic bed for neuropathy History of hepatic encephalopathy 02/09/2020, patient seen eval examined during the rounds labs reviewed medications reviewed, blood pressure slightly better, patient is off of oxygen on room air 91-95%, patient is being evaluated by PT OT due to extensive disc harge a urine back has been placed for excessive discharge 02/08/2020, patient seen and evaluated examined, patient hemoglobin went down status post transfusion latest hemoglobin improved to 8, BUN/creatinine remains stable 45 and 2.2, patient remains afebrile general surgery have recommended to put a urine bag around the wound due to discharge 02/07/2020, patient seen eval examined during the rounds labs reviewed medications reviewed, patient has been evaluated by renal service as well as inf ectious disease and general surgery, patient has significant discharge noted from the abdominal wound, status post 1 unit of packed RBC hemoglobin improved to 7.5, potassium is still elevated 5.4, BUN and creatinine went up to 45 and 2.0, patient remains on Levaquin, Patient is a 70-year-old who was found to be anemic, patient is a resident of [facility], she was found to have low hemoglobin, it appears that patient was the in the hospital discharged to [facility] on February 02, she s tarted having progressive abdominal pain in the last few days, also has generalized weakness, he shouldn't noted to have not only acute kidney injury by severe anemia labs reviewed hemoglobin is 6.8 BUN and creatinine 42 and 1.8, and also hyperkalemia patient has been admitted with surgery consult infectious disease consult and renal consult, Objective - Vital Signs Vital signs: Vital Signs Temp 97.7 F 02/09/20 14:00 Pulse 66 02/09/20 14:00 Resp 18 02/09/20 14:00 BP 107/63 02/09/20 14:00 Pulse Ox 93 L 02/09/20 14:00 Intake & Output 02/08/20 02/09/20 02/09/20 18:59 06:59 18:59 Intake Total 730 310 Output Total 650 1000 475 Balance 80 -690 -475 Intake: Oral 420 Blood Product 310 310 Rc Pheresis 2 As3 Unit 0 310 [id number] Rc Pheresis 2 As3 Unit 310 [id number] Output: Urine 650 1000 475 Straight 500 Other: Voiding Method Indwelling Catheter Indwelling Catheter # Voids 1 # Bowel Movements 1 1 - Exam - Constitutional General appearance: average body habitus, cooperative, disheveled, morbidly obese - EENT Eyes: PERRLA Ears: bilateral: normal - Neck Neck: normal ROM Carotids: bilateral: upstroke normal - Respiratory Respiratory: bilateral: CTA - Cardiovascular Rhythm: regular Heart sounds: normal: S1, S2 - Gastrointestinal Due to recent hemicolectomy abdominal wound is present with dressing tenderness is present General gastrointestinal: soft - Neurologic Neurologic: CNII-XII intact - Musculoskeletal Musculoskeletal: generalized weakness, strength equal bilaterally - Psychiatric Psychiatric: A&O x's 3, appropriate affect, intact judgment & insight - Labs CBC & Chem 7: 02/09/20 06:53 02/10/20 06:00 Labs: Abnormal Lab Results - Last 24 Hours (Table) 02/05/20 02/06/20 02/06/20 Range/Units 21:20 08:38 21:26 RBC (3.80-5.40) m/uL Hgb (11.4-16.0) gm/dL Hct (34.0-46.0) % MCHC (31.0-37.0) g/dL RDW (11.5-15.5) % Lymphocytes # (1.0-4.8) k/uL Sodium (135-145) mmol/L BUN (9.0-27.0) mg/dL Creatinine (0.6-1.5) mg/dL Est GFR (CKD-EPI)AfAm (60.0-200.0) Est GFR (CKD-EPI)NonAf (60.0-200.0) BUN/Creatinine Ratio (12.00-20.00) Ratio Glucose (70-110) mg/dL POC Glucose (mg/dL) 116 H 144 H (75-99) mg/dL Calcium (8.7-10.3) mg/dL Total Protein (6.2-8.2) g/dL Albumin (3.80-4.90) g/dL Albumin/Globulin Ratio (1.60-3.17) g/dL Crossmatch See Detail 02/07/20 02/07/20 02/07/20 Range/Units 07:26 11:44 16:38 RBC (3.80-5.40) m/uL Hgb (11.4-16.0) gm/dL Hct (34.0-46.0) % MCHC (31.0-37.0) g/dL RDW (11.5-15.5) % Lymphocytes # (1.0-4.8) k/uL Sodium (135-145) mmol/L BUN (9.0-27.0) mg/dL Creatinine (0.6-1.5) mg/dL Est GFR (CKD-EPI)AfAm (60.0-200.0) Est GFR (CKD-EPI)NonAf (60.0-200.0) BUN/Creatinine Ratio (12.00-20.00) Ratio Glucose (70-110) mg/dL POC Glucose (mg/dL) 140 H 165 H 153 H (75-99) mg/dL Calcium (8.7-10.3) mg/dL Total Protein (6.2-8.2) g/dL Albumin (3.80-4.90) g/dL Albumin/Globulin Ratio (1.60-3.17) g/dL Crossmatch 02/07/20 02/08/20 02/08/20 Range/Units 20:23 07:29 11:39 RBC (3.80-5.40) m/uL Hgb (11.4-16.0) gm/dL Hct (34.0-46.0) % MCHC (31.0-37.0) g/dL RDW (11.5-15.5) % Lymphocytes # (1.0-4.8) k/uL Sodium (135-145) mmol/L BUN (9.0-27.0) mg/dL Creatinine (0.6-1.5) mg/dL Est GFR (CKD-EPI)AfAm (60.0-200.0) Est GFR (CKD-EPI)NonAf (60.0-200.0) BUN/Creatinine Ratio (12.00-20.00) Ratio Glucose (70-110) mg/dL POC Glucose (mg/dL) 167 H 131 H 189 H (75-99) mg/dL Calcium (8.7-10.3) mg/dL Total Protein (6.2-8.2) g/dL Albumin (3.80-4.90) g/dL Albumin/Globulin Ratio (1.60-3.17) g/dL Crossmatch 02/08/20 02/08/20 02/09/20 Range/Units 16:46 20:34 06:53 RBC (3.80-5.40) m/uL Hgb (11.4-16.0) gm/dL Hct (34.0-46.0) % MCHC (31.0-37.0) g/dL RDW (11.5-15.5) % Lymphocytes # (1.0-4.8) k/uL Sodium 134 L (135-145) mmol/L BUN 45.0 H (9.0-27.0) mg/dL Creatinine 2.2 H (0.6-1.5) mg/dL Est GFR (CKD-EPI)AfAm 25.8 L (60.0-200.0) Est GFR (CKD-EPI)NonAf 22.3 L (60.0-200.0) BUN/Creatinine Ratio 20.45 H (12.00-20.00) Ratio Glucose 161 H (70-110) mg/dL POC Glucose (mg/dL) 200 H 255 H (75-99) mg/dL Calcium 7.6 L (8.7-10.3) mg/dL Total Protein 5.1 L (6.2-8.2) g/dL Albumin 2.50 L (3.80-4.90) g/dL Albumin/Globulin Ratio 0.96 L (1.60-3.17) g/dL Crossmatch 02/09/20 02/09/20 02/09/20 Range/Units 06:53 07:36 11:39 RBC 2.91 L (3.80-5.40) m/uL Hgb 8.0 L (11.4-16.0) gm/dL Hct 26.7 L (34.0-46.0) % MCHC 30.0 L (31.0-37.0) g/dL RDW 18.4 H (11.5-15.5) % Lymphocytes # 0.6 L (1.0-4.8) k/uL Sodium (135-145) mmol/L BUN (9.0-27.0) mg/dL Creatinine (0.6-1.5) mg/dL Est GFR (CKD-EPI)AfAm (60.0-200.0) Est GFR (CKD-EPI)NonAf (60.0-200.0) BUN/Creatinine Ratio (12.00-20.00) Ratio Glucose (70-110) mg/dL POC Glucose (mg/dL) 166 H 198 H (75-99) mg/dL Calcium (8.7-10.3) mg/dL Total Protein (6.2-8.2) g/dL Albumin (3.80-4.90) g/dL Albumin/Globulin Ratio (1.60-3.17) g/dL Crossmatch Assessment and Plan Assessment: Severe acute symptomatic anemia Acute kidney injury Hyperkalemia Anterior abdominal wound Severe Morbid obesity and BMI of over 58 Breast cancer status post bilateral right-sided mastectomy status post chemotherapy type 2 diabetes mellitus Peripheral neuropathy Cirrhosis of the liver Potential hypertensive cardiovascular disease Seizure disorder History of diabetic bed for neuropathy History of hepatic encephalopathy Plan: Patient to be transfused with packed blood however due to antibodies there is a delay Surgical consultation Renal consultation ID consultation Resume home medications Further plan of care as per clinical response of the patient Time with Patient: Greater than 30
--- NOTE | 2020-02-10 20:55 | P.PN ---
Subjective Progress Note Date: 02/10/20 Principal diagnosis: Severe acute symptomatic anemia Acute kidney injury Hyperkalemia Anterior abdominal wound Severe Morbid obesity and BMI of over 58 Breast cancer status post bilateral right-sided mastectomy status post chemotherapy type 2 diabetes mellitus Peripheral neuropathy Cirrhosis of the liver Potential hypertensive cardiovascular disease Seizure disorder History of diabetic bed for neuropathy History of hepatic encephalopathy 02/10/2020, patient seen eval examined during the rounds labs reviewed medications reviewed, patient did some physical therapy was able to sit on the side of the bed, grimace has improved significantly, vitals are stable satura tions of 95% room air remains afebrile, wound culture came back positive for staph epi which is sensitive to Levaquin, 02/09/2020, patient seen eval examined during the rounds labs reviewed medicatio ns reviewed, blood pressure slightly better, patient is off of oxygen on room air 91-95%, patient is being evaluated by PT OT due to extensive discharge a urine back has been placed for excessive discharge 02/08/2020, patient seen and evaluated examined, patient hemoglobin went down status post transfusion latest hemoglobin improved to 8, BUN/creatinine remains stable 45 and 2.2, patient remains afebrile general surgery have recommended to put a urine bag around the wound due to discharge 02/07/2020, patient seen eval examined during the rounds labs reviewed medications reviewed, patient has been evaluated by renal service as well as infectious disease and general surgery, patient has significant discharge noted from the abdominal wound, status post 1 unit of packed RBC hemoglobin improved to 7.5, potassium is still elevated 5.4, BUN and creatinine went up to 45 and 2.0, patient remains on Levaquin, Patient is a 70-year-old who was found to be anemic, patient is a resident of [facility], she was found to have low hemoglobin, it appears that patient was the in the hospital discharged to [facility] on February 02, she started having progressive abdominal pain in the last few days, also has generalized weakness, he shouldn't noted to have not only acute kidney injury by severe anemia labs reviewed hemoglobin is 6.8 BUN and creatinine 42 and 1.8, and also hyperkalemia patient has been admitted with surgery consult infectious disease consult and renal consult, Objective - Vital Signs Vital signs: Vital Signs Temp 98.2 F 02/10/20 14:26 Pulse 78 02/10/20 14:26 Resp 16 02/10/20 14:26 BP 101/52 02/10/20 14:26 Pulse Ox 92 L 02/10/20 19:14 Intake & Output 02/10/20 02/10/20 02/11/20 06:59 18:59 06:59 Output Total 775 300 Balance -775 -300 Output: Drainage 50 Abdomen 50 Urine 775 250 Straight 250 250 Other: Voiding Method Indwelling Catheter - Exam - Constitutional General appearance: average body habitus, cooperative, disheveled, morbidly obese - EENT Eyes: PERRLA Ears: bilateral: normal - Neck Neck: normal ROM Carotids: bilateral: upstroke normal - Respiratory Respiratory: bilateral: CTA - Cardiovascular Rhythm: regular Heart sounds: normal: S1, S2 - Gastrointestinal Due to recent hemicolectomy abdominal wound is present with dressing tenderness is present General gastrointestinal: soft - Neurologic Neurologic: CNII-XII intact - Musculoskeletal Musculoskeletal: generalized weakness, strength equal bilaterally - Psychiatric Psychiatric: A&O x's 3, appropriate affect, intact judgment & insight - Labs CBC & Chem 7: 02/09/20 06:53 02/10/20 06:00 Labs: Abnormal Lab Results - Last 24 Hours (Table) 02/10/20 02/10/20 02/10/20 Range/Units 06:00 08:03 11:30 BUN 46.0 H (9.0-27.0) mg/dL Creatinine 2.0 H (0.6-1.5) mg/dL Est GFR (CKD-EPI)AfAm 29.0 L (60.0-200.0) Est GFR (CKD-EPI)NonAf 25.0 L (60.0-200.0) BUN/Creatinine Ratio 23.00 H (12.00-20.00) Ratio Glucose 114 H (70-110) mg/dL POC Glucose (mg/dL) 149 H 142 H (75-99) mg/dL Calcium 7.7 L (8.7-10.3) mg/dL 02/10/20 02/10/20 Range/Units 17:00 19:36 BUN (9.0-27.0) mg/dL Creatinine (0.6-1.5) mg/dL Est GFR (CKD-EPI)AfAm (60.0-200.0) Est GFR (CKD-EPI)NonAf (60.0-200.0) BUN/Creatinine Ratio (12.00-20.00) Ratio Glucose (70-110) mg/dL POC Glucose (mg/dL) 147 H 162 H (75-99) mg/dL Calcium (8.7-10.3) mg/dL Microbiology - Last 24 Hours (Table) 02/09/20 17:50 Gram Stain - Preliminary Abdomen Wound Culture - Preliminary 02/09/20 17:50 Anaerobic Culture - Preliminary Abdomen 02/06/20 13:00 Gram Stain - Final Abdomen Wound Culture - Final Staphylococcus epidermidis Assessment and Plan Assessment: Wound cellulitis superficial staph epi related Severe acute symptomatic anemia Acute kidney injury Hyperkalemia Anterior abdominal wound Severe Morbid obesity and BMI of over 58 Breast cancer status post bilateral right-sided mastectomy status post chemotherapy type 2 diabetes mellitus Peripheral neuropathy Cirrhosis of the liver Potential hypertensive cardiovascular disease Seizure disorder History of diabetic bed for neuropathy History of hepatic encephalopathy Plan: Continue antibiotic, continue increase activity as tolerated PT OT evaluation Surgical consultation noted and appreciated Renal consultation noted and appreciated Resume home medications Further plan of care as per clinical response of the patient Time with Patient: Greater than 30
--- NOTE | 2020-02-10 23:39 | PN ---
PROGRESS NOTE DATE OF SERVICE: 02/10/2020 REASON FOR FOLLOWUP: Abdominal wound dehiscence and a question of wound infection. INTERVAL HISTORY: Patient is currently afebrile. Patient is breathing comfortably. Patient denies having any chest pain. No shortness of breath or cough. Abdominal pain is currently controlled. No nausea, vomiting or diarrhea. PHYSICAL EXAMINATION: Her blood pressure is 109/68 with a pulse of 64, temperature 98. She is 95% on room air. General description is a middle-aged female lying in bed in no distress. Respiratory system: Unlabored breathing. Clear to auscultation anteriorly. Heart S1, S2. Regular rate and rhythm. ABDOMEN: Soft. Wound is currently covered with colostomy bag. Minimal serous drainage. LABS: BUN of 46, creatinine 2.0. Abdominal culture with Staph epidermidis. DIAGNOSTIC IMPRESSION AND PLAN: Patient with abdominal wound dehiscence. Culture with Staph epi likely skin abby doubt secondary cellulitis in this patient with ANTIBIOTIC ALLERGY and renal insufficiency. We will hold on any further antibiotic at this point. Continue supportive care. MMODL / IJN: [id number] / MTDD
[2020-02-11] MEDS: HYDROmorphone 0.5 MG/0.5 ML SYRINGE IVP PRN ×2 (01:28→09:21)
[2020-02-11] MEDS: PANTOPRAZOLE 40 MG TABLET PO SCH (05:00)
[2020-02-11 07:36] LABS: Glucose,Whole Blood 112 mg/dL (75-99)
[2020-02-11] MEDS: LACTULOSE 20 GM/30 ML CUP PO SCH (08:07)
[2020-02-11] MEDS: FOLIC ACID 1 MG TAB PO SCH (08:08)
[2020-02-11] MEDS: ASCORBIC ACID 500 MG TAB PO SCH (08:08)
[2020-02-11] MEDS: FERROUS SULFATE 325 MG TAB PO SCH (08:08)
[2020-02-11] MEDS: ZINC SULFATE 220 MG CAP PO SCH (08:08)
[2020-02-11] MEDS: SERTRALINE 25 MG TAB PO SCH (08:08)
[2020-02-11] MEDS: SENNOSIDES 8.6 MG TAB PO SCH (08:08)
[2020-02-11] MEDS: RIFAXIMIN 550 MG TABLET PO SCH (08:08)
[2020-02-11] MEDS: MIDODRINE 5 MG TAB PO SCH ×2 (08:08→11:55)
[2020-02-11] MEDS: GABAPENTIN 100 MG CAP PO SCH (08:08)
[2020-02-11] MEDS: SODIUM BICARBONATE TAB 650 MG TAB PO SCH ×2 (08:09→11:55)
[2020-02-11] MEDS: ANASTROZOLE 1 MG TAB PO SCH (08:09)
[2020-02-11] MEDS: METOPROLOL TARTRATE 12.5 MG TAB PO SCH (08:09)
[2020-02-11] MEDS ORDERED: FUROSEMIDE 40 MG TAB PO SCH (09:00)
[2020-02-11 09:06] VITALS: BP 105/57; PULSE 72; RESP 17; TEMP 97.9
--- NOTE | 2020-02-11 10:54 | P.DS ---
Providers Date of admission: 02/05/20 23:47 Expected date of discharge: 02/11/20 Attending physician: Tod Dunn Consults: 02/05/20 23:53 Consult Physician Routine Consulting Provider: Virgilio Seaman Consult Reason/Comments: Abd pain; anemia Do you want consulting provider notified?: Yes 02/06/20 11:29 Consult Physician Routine Consulting Provider: Tania Boyd Consult Reason/Comments: infection Do you want consulting provider notified?: Yes 02/06/20 11:31 Consult Physician Routine Consulting Provider: John Finney Consult Reason/Comments: increse BUN and CR and K 6.4 Do you want consulting provider notified?: Yes Primary care physician: [facility] Hospital Course: 02/11/2020, patient seen eval examined during the rounds labs reviewed medications reviewed urine is significantly improved, discussed with ID servicetherapy needed for superficial wound cellulitis continued do more local wound care along with dressing change, no need for antibiotic, patient is tolerating by mouth well getting physical therapy sitting on the side of the bed patient will be discharged back to [facility], patient will need some pain medicine 02/10/2020, patient seen eval examined during the rounds labs reviewed medications reviewed, patient did some physical therapy was able to sit on the side of the bed, grimace has improved significantly, vitals are stable satura tions of 95% room air remains afebrile, wound culture came back positive for staph epi which is sensitive to Levaquin, 02/09/2020, patient seen eval examined during the rounds labs reviewed medicatio ns reviewed, blood pressure slightly better, patient is off of oxygen on room air 91-95%, patient is being evaluated by PT OT due to extensive discharge a urine back has been placed for excessive discharge 02/08/2020, patient seen and evaluated examined, patient hemoglobin went down status post transfusion latest hemoglobin improved to 8, BUN/creatinine remains stable 45 and 2.2, patient remains afebrile general surgery have recommended to put a urine bag around the wound due to discharge 02/07/2020, patient seen eval examined during the rounds labs reviewed medications reviewed, patient has been evaluated by renal service as well as infectious disease and general surgery, patient has significant discharge noted from the abdominal wound, status post 1 unit of packed RBC hemoglobin improved to 7.5, potassium is still elevated 5.4, BUN and creatinine went up to 45 and 2.0, patient remains on Levaquin, Patient is a 70-year-old who was found to be anemic, patient is a resident of [facility], she was found to have low hemoglobin, it appears that patient was the in the hospital discharged to [facility] on February 02, she started having progressive abdominal pain in the last few days, also has generalized weakness, he shouldn't noted to have not only acute kidney injury by severe anemia labs reviewed hemoglobin is 6.8 BUN and creatinine 42 and 1.8, and also hyperkalemia patient has been admitted with surgery consult infectious disease consult and renal consult, - Vital Signs Vital signs: Vital Signs Temp 98.2 F 02/10/20 14:26 Pulse 78 02/10/20 14:26 Resp 16 02/10/20 14:26 BP 101/52 02/10/20 14:26 Pulse Ox 92 L 02/10/20 19:14 Intake & Output 02/10/20 02/10/20 02/11/20 06:59 18:59 06:59 Output Total 775 300 Balance -775 -300 Output: Drainage 50 Abdomen 50 Urine 775 250 Straight 250 250 Other: Voiding Method Indwelling Catheter - Exam - Constitutional General appearance: average body habitus, cooperative, disheveled, morbidly obese - EENT Eyes: PERRLA Ears: bilateral: normal - Neck Neck: normal ROM Carotids: bilateral: upstroke normal - Respiratory Respiratory: bilateral: CTA - Cardiovascular Rhythm: regular Heart sounds: normal: S1, S2 - Gastrointestinal Due to recent hemicolectomy abdominal wound is present with dressing tenderness is present General gastrointestinal: soft - Neurologic Neurologic: CNII-XII intact - Musculoskeletal Musculoskeletal: generalized weakness, strength equal bilaterally - Psychiatric Psychiatric: A&O x's 3, appropriate affect, intact judgment & insight CBC & Chem 7: 02/09/20 06:53 02/10/20 06:00 Labs: Abnormal Lab Results - Last 24 Hours (Table) 02/10/20 02/10/20 02/10/20 Range/Units 06:00 08:03 11:30 BUN 46.0 H (9.0-27.0) mg/dL Creatinine 2.0 H (0.6-1.5) mg/dL Est GFR (CKD-EPI)AfAm 29.0 L (60.0-200.0) Est GFR (CKD-EPI)NonAf 25.0 L (60.0-200.0) BUN/Creatinine Ratio 23.00 H (12.00-20.00) Ratio Glucose 114 H (70-110) mg/dL POC Glucose (mg/dL) 149 H 142 H (75-99) mg/dL Calcium 7.7 L (8.7-10.3) mg/dL 02/10/20 02/10/20 Range/Units 17:00 19:36 BUN (9.0-27.0) mg/dL Creatinine (0.6-1.5) mg/dL Est GFR (CKD-EPI)AfAm (60.0-200.0) Est GFR (CKD-EPI)NonAf (60.0-200.0) BUN/Creatinine Ratio (12.00-20.00) Ratio Glucose (70-110) mg/dL POC Glucose (mg/dL) 147 H 162 H (75-99) mg/dL Calcium (8.7-10.3) mg/dL Microbiology - Last 24 Hours (Table) 02/09/20 17:50 Gram Stain - Preliminary Abdomen Wound Culture - Preliminary 02/09/20 17:50 Anaerobic Culture - Preliminary Abdomen 02/06/20 13:00 Gram Stain - Final Abdomen Wound Culture - Final Staphylococcus epidermidis Assessment: Wound cellulitis superficial staph epi related Severe acute symptomatic anemia Acute kidney injury Hyperkalemia Anterior abdominal wound Severe Morbid obesity and BMI of over 58 Breast cancer status post bilateral right-sided mastectomy status post chemotherapy type 2 diabetes mellitus Peripheral neuropathy Cirrhosis of the liver Potential hypertensive cardiovascular disease Seizure disorder History of diabetic bed for neuropathy History of hepatic encephalopathy Patient Condition at Discharge: Fair Plan - Discharge Summary New Discharge Prescriptions: New Darbepoetin Gurwinder [Aranesp] 40 mcg SQ Q7D syringe Artificial Tears-Hypromellose [Artificial Tear Drops] 1 drops BOTH EYES Q12H PRN bottle PRN Reason: Dry Eye(S)/redness Furosemide [Lasix] 40 mg PO DAILY tab Midodrine [ProAmatine] 10 mg PO AC-TID #90 tab Sodium Bicarbonate Tab 650 mg PO QID tab Continue Anastrozole [Arimidex] 1 mg PO DAILY@0900 Sennosides [Senna] 8.6 mg PO BID@0900,2100 Pantoprazole [Protonix] 40 mg PO DAILY@0600 Ferrous Sulfate [Iron (65 MG Elemental)] 325 mg PO DAILY@0900 Acetaminophen [Tylenol] 650 mg PO Q4H PRN PRN Reason: Fever And/ Or Pain Dextran 70/Hypromellose [Genteal Tears 0.1%-0.3% Drop] 1 drop BOTH EYES Q12H PRN PRN Reason: Dry Eye(S)/redness Rifaximin [Xifaxan] 550 mg PO BID@0900,2099 Lactulose 20 gm PO BID@0900,2099 Thiamine [Vitamin B-1] 100 mg PO DAILY@1600 Multivitamins, Thera [Multivitamin (formulary)] 1 tab PO DAILY@1500 Folic Acid 1 mg PO DAILY@0900 Melatonin 10 mg PO HS PRN PRN Reason: Insomnia Oxymetazoline 0.05% Nasl [place] [Afrin 0.05% Nasal [place]] 1 spray NASAL Q15M PRN MDD 3 DOSES PRN Reason: BLOODY NOSE Gabapentin [Neurontin] 200 mg PO TID@0900,1500,2099 #9 cap HYDROcodone/APAP 10-325MG [[place] 10-325] 1 tab PO Q6HR PRN 3 Days #12 tab PRN Reason: Pain Ascorbic Acid [Vitamin C] 500 mg PO DAILY@0900 metOLazone [Zaroxolyn] 5 mg PO DAILY@0900 Sertraline HCl [Zoloft] 25 mg PO DAILY@0900 Spironolactone [Aldactone] 50 mg PO DAILY@0900 Zinc 50 mg PO DAILY@0900 #30 tab INSULIN LISPRO (humaLOG) [humaLOG] See Protocol SQ ACHS Metoprolol Tartrate [Lopressor] 12.5 mg PO Q12H No Action INSULIN LISPRO (humaLOG) [humaLOG] 4 units SQ AC-BID Discharge Medication List Anastrozole [Arimidex] 1 mg PO DAILY@0900 09/30/14 [History] Sennosides [Senna] 8.6 mg PO BID@0900,2100 04/02/18 [History] Pantoprazole [Protonix] 40 mg PO DAILY@0600 07/02/18 [History] Ferrous Sulfate [Iron (65 MG Elemental)] 325 mg PO DAILY@0900 07/04/19 [History] Acetaminophen [Tylenol] 650 mg PO Q4H PRN 08/24/19 [History] Dextran 70/Hypromellose [Genteal Tears 0.1%-0.3% Drop] 1 drop BOTH EYES Q12H PRN 08/24/19 [History] Folic Acid 1 mg PO DAILY@0900 08/24/19 [History] Lactulose 20 gm PO BID@0900,209908/24/19 [History] Multivitamins, Thera [Multivitamin (formulary)] 1 tab PO DAILY@1500 08/24/19 [History] Rifaximin [Xifaxan] 550 mg PO BID@0900,209908/24/19 [History] Thiamine [Vitamin B-1] 100 mg PO DAILY@1600 08/24/19 [History] Melatonin 10 mg PO HS PRN 10/25/19 [History] Oxymetazoline 0.05% Nasl [place] [Afrin 0.05% Nasal [place]] 1 spray NASAL Q15M PRN MDD 3 DOSES 10/25/19 [History] Gabapentin [Neurontin] 200 mg PO TID@0900,1500,2099 #9 cap 12/26/19 [Rx] HYDROcodone/APAP 10-325MG [[place]cf[place] 10-325] 1 tab PO Q6HR PRN 3 Days #12 tab 12/26/19 [Rx] Ascorbic Acid [Vitamin C] 500 mg PO DAILY@0900 01/19/20 [History] Sertraline HCl [Zoloft] 25 mg PO DAILY@0900 01/19/20 [History] Spironolactone [Aldactone] 50 mg PO DAILY@0900 01/19/20 [History] metOLazone [Zaroxolyn] 5 mg PO DAILY@0900 01/19/20 [History] Zinc 50 mg PO DAILY@0900 #30 tab 02/03/20 [Rx] INSULIN LISPRO (humaLOG) [humaLOG] 4 units SQ AC-BID 02/05/20 [History] INSULIN LISPRO (humaLOG) [humaLOG] See Protocol SQ ACHS 02/05/20 [History] Metoprolol Tartrate [Lopressor] 12.5 mg PO Q12H 02/05/20 [History] Artificial Tears-Hypromellose [Artificial Tear Drops] 1 drops BOTH EYES Q12H PRN bottle 02/11/20 [Rx] Darbepoetin Gurwinder [Aranesp] 40 mcg SQ Q7D syringe 02/11/20 [Rx] Furosemide [Lasix] 40 mg PO DAILY tab 02/11/20 [Rx] Midodrine [ProAmatine] 10 mg PO AC-TID #90 tab 02/11/20 [Rx] Sodium Bicarbonate Tab 650 mg PO QID tab 02/11/20 [Rx] Follow up Appointment(s)/Referral(s): Tom Han MD [Primary Care Provider] - 1-2 days Discharge Disposition: TRANSFER TO SNF/ECF
[2020-02-11 11:20] VITALS: BMI 39.9
[2020-02-11 11:53] LABS: Glucose,Whole Blood 165 mg/dL (75-99)
[2020-02-11] MEDS: LEVOFLOXACIN 250MG-D5W PMX 250 MG in DEXTROSE/WATER 1 50ML.BAG IVPB SCH (11:55)
--- NOTE | 2020-02-11 13:03 | P.PN ---
Progress Note - Text Progress Note Date: 02/11/20 Patient remains stable. She is being transferred to [facility] today. On exam her bowel wound appears to have some minimal purulent fluid. Patient will resume local wound care. She'll follow up with myself next week.
--- NOTE | 2020-02-11 17:32 | PN ---
PROGRESS NOTE Patient is seen for followup for chronic kidney disease and acute kidney injury. She is currently awake, comfortable. Patient denies any significant complaints. Renal function is stable. Creatinine has been at about 2 to 2.2 mg/dL. Lasix was restarted yesterday. PHYSICAL EXAMINATION: On examination today, blood pressure was 105/57, heart rate 72 per minute. Patient is afebrile. EXAMINATION OF THE HEART: S1 and S2. EXAMINATION OF LUNGS: Bilateral breath sounds are heard. ABDOMEN: Soft. Examination of lower extremities shows significant edema with chronic skin changes bilaterally. [employer] exam is grossly intact. LABS: Labs are not available from today. Creatinine was 2.0 yesterday on 02/10/2020. Potassium was 4.3. ASSESSMENT: 1. Chronic kidney disease, NKF stage 3B to 4; previous creatinine about 1 to 1.2 mg/dL secondary to nephrosclerosis, diabetic kidney disease. 2. Acute kidney injury, nonoliguric. Creatinine slightly improved yesterday. No labs today. Etiology was anemia and hypotension. 3. Volume overload, started on oral Lasix. 4. Hypotension, maintained on midodrine. 5. Acute blood loss anemia status post packed RBCs transfusion, maintained on Aranesp. No active bleeding noted. 6. Recent hemicolectomy and wound infection, maintained on antibiotics. 7. Chronic lower extremity edema. PLAN: Continue with oral diuretics. Follow up as outpatient for CKD. MMODL / IJN: [id number] /
--- NOTE | 2020-02-11 20:35 | P.PN ---
Progress Note - Text Progress Note Date: 02/11/20 REASON FOR FOLLOWUP: Abdominal wound dehiscence and a question of wound infection. INTERVAL HISTORY: Patient is afebrile. Patient is breathing comfortably. Patient denies having any chest pain. No shortness of breath or cough. Abdominal pain is currently controlled. No nausea, vomiting or diarrhea. feeling better PHYSICAL EXAMINATION: Her blood pressure is 110/60 with a pulse of 64, temperature 98. She is 95% on room air. General description is a middle-aged female lying in bed in no distress. Respiratory system: Unlabored breathing. Clear to auscultation anteriorly. Heart S1, S2. Regular rate and rhythm. ABDOMEN: Soft. Wound is currently covered with colostomy bag. Minimal serous drainage. LABS: Abdominal culture with Staph epidermidis. DIAGNOSTIC IMPRESSION AND PLAN: Patient with abdominal wound dehiscence. Culture with Staph epi likely skin abby clinically doubt secondary cellulitis in this patient with ANTIBIOTIC ALLERGY and renal insufficiency. no need for any further antibiotic on discharge. Continue supportive care.
== END 2020-02-11 13:12 | DRG 862 ==
LOC: EC 19:31 → 5NMEDONC 23:47
PROVIDERS: ADMIT Internal Medicine Sleep Medicine; ATTEND Internal Medicine Sleep Medicine
PROC: 30233N1 Transfusion of Nonautologous Red Blood Cells into Peripheral Vein, Percutaneous Approach (ICD-10-PCS; principal; 2020-02-06)
PROC: 05HF33Z Insertion of Infusion Device into Left Cephalic Vein, Percutaneous Approach (ICD-10-PCS; 2020-02-10 17:15)
DX: T81.41XA Infection following a procedure, superficial incisional surgical site, initial encounter (principal); N17.0 Acute kidney failure with tubular necrosis; T81.30XA Disruption of wound, unspecified, initial encounter; N18.4 Chronic kidney disease, stage 4 (severe); D62 Acute posthemorrhagic anemia; E87.2 Acidosis; I13.0 Hypertensive heart and chronic kidney disease with heart failure and stage 1 through stage 4 chronic kidney disease, or unspecified chronic kidney disease; I47.1 Supraventricular tachycardia; L03.311 Cellulitis of abdominal wall; R18.8 Other ascites; Z68.43 Body mass index [BMI] 50.0-59.9, adult; T50.0X5A Adverse effect of mineralocorticoids and their antagonists, initial encounter; Z90.13 Acquired absence of bilateral breasts and nipples; Z20.828 Contact with and (suspected) exposure to other viral communicable diseases; E11.22 Type 2 diabetes mellitus with diabetic chronic kidney disease; E11.42 Type 2 diabetes mellitus with diabetic polyneuropathy; E66.01 Morbid (severe) obesity due to excess calories; E78.5 Hyperlipidemia, unspecified; E86.1 Hypovolemia; E87.5 Hyperkalemia; F32.9 Major depressive disorder, single episode, unspecified; F41.9 Anxiety disorder, unspecified; G40.909 Epilepsy, unspecified, not intractable, without status epilepticus; G89.4 Chronic pain syndrome; I50.9 Heart failure, unspecified; J44.9 Chronic obstructive pulmonary disease, unspecified; K59.00 Constipation, unspecified; K74.60 Unspecified cirrhosis of liver; Z87.19 Personal history of other diseases of the digestive system; B95.7 Other staphylococcus as the cause of diseases classified elsewhere; M06.9 Rheumatoid arthritis, unspecified; M79.7 Fibromyalgia; Z92.21 Personal history of antineoplastic chemotherapy; Z85.3 Personal history of malignant neoplasm of breast; Z79.899 Other long term (current) drug therapy; Z80.1 Family history of malignant neoplasm of trachea, bronchus and lung; Z80.3 Family history of malignant neoplasm of breast; Z82.5 Family history of asthma and other chronic lower respiratory diseases; Z83.3 Family history of diabetes mellitus; Z82.61 Family history of arthritis; Z82.69 Family history of other diseases of the musculoskeletal system and connective tissue; Z80.8 Family history of malignant neoplasm of other organs or systems; Z86.19 Personal history of other infectious and parasitic diseases; Z79.811 Long term (current) use of aromatase inhibitors; Z79.4 Long term (current) use of insulin; Z87.891 Personal history of nicotine dependence; Z88.1 Allergy status to other antibiotic agents; Z88.0 Allergy status to penicillin; Z88.8 Allergy status to other drugs, medicaments and biological substances; Z90.49 Acquired absence of other specified parts of digestive tract; Z90.710 Acquired absence of both cervix and uterus; Z98.51 Tubal ligation status; Z90.89 Acquired absence of other organs; Z82.3 Family history of stroke; K57.90 Diverticulosis of intestine, part unspecified, without perforation or abscess without bleeding
CPT/HCPCS: 36410; 36415; 71045; 74176; 76937; 80048; 80053; 81001; 82533; 83605; 83690; 83735; 85025; 85610; 85730; 86140; 86850; 86870; 86880; 86900; 86901; 86902; 86920; 87070; 87075; 87077; 87086; 87186; 87205; 87635; 94760; 96374; 99285

== ENCOUNTER 2020-02-16 13:22 | Inpatient (IN) | payer MEDICARE, OTHER ==
[2020-02-16] MEDS ORDERED: LEVOFLOXACIN 750MG-D5W PMX 750 MG in DEXTROSE/WATER 1 150ML.BAG IVPB STA (13:40)
--- NOTE | 2020-02-16 13:43 | ED ---
General Adult HPI - General Source: patient, RN notes reviewed, old records reviewed Mode of arrival: EMS Limitations: no limitations <Kenny Diaz - Last Filed: 02/16/20 14:55> <Rome Pedro - Last Filed: 02/16/20 16:04> - General Chief complaint: Abdominal Pain Stated complaint: Infection Time Seen by Provider: 02/16/20 13:30 - History of Present Illness Initial comments: This is a 70-year-old female who presents to the emergency department complaining of possible infection and tenderness to the incision area. Patient states she had a colon resection by Dr. Seaman on February 06 and is a resident at [facility]. They noted the incision site was red and tender and they felt as though there was a new mass underneath the incision site. Also they noticed quite a bit of pus coming from the incision site. (Kenny Diaz) - Related Data Home Medications Medication Instructions Recorded Confirmed Anastrozole [Arimidex] 1 mg PO DAILY@00 09/30/14 02/16/20 Sennosides [Senna] 8.6 mg PO BID@06,209904/02/18 02/16/20 Pantoprazole [Protonix] 40 mg PO DAILY@59907/02/18 02/16/20 Ferrous Sulfate [Iron (65 MG 325 mg PO DAILY@89908/16/18 02/16/20 Elemental)] Acetaminophen [Tylenol] 650 mg PO Q4H PRN 08/24/19 02/16/20 Dextran 70/Hypromellose [Genteal 1 drop BOTH EYES Q12H PRN 08/24/19 02/16/20 Tears 0.1%-0.3% Drop] Folic Acid 1 mg PO DAILY@59908/24/19 02/16/20 Lactulose 20 gm PO BID@0900,209908/24/19 02/16/20 Multivitamins, Thera [Multivitamin 1 tab PO DAILY@1200 08/24/19 02/16/20 (formulary)] Rifaximin [Xifaxan] 550 mg PO BID@0600,209908/24/19 02/16/20 Thiamine [Vitamin B-1] 100 mg PO DAILY@0608/24/19 02/16/20 Melatonin 10 mg PO HS PRN 10/25/19 02/16/20 Oxymetazoline 0.05% Nasl [place] 1 spray NASAL Q15M PRN MDD 3 DOSES 10/25/19 02/16/20 [Afrin 0.05% Nasal [place]] Ascorbic Acid [Vitamin C] 500 mg PO DAILY@0600 01/19/20 02/16/20 Sertraline HCl [Zoloft] 25 mg PO DAILY@0900 01/19/20 02/16/20 Spironolactone [Aldactone] 50 mg PO DAILY@59901/19/20 02/16/20 metOLazone [Zaroxolyn] 5 mg PO DAILY@0901/19/20 02/16/20 INSULIN LISPRO (humaLOG) [humaLOG] 4 units SQ AC-TID 02/05/20 02/16/20 Metoprolol Tartrate [Lopressor] 12.5 mg PO BID@0900,2100 02/05/20 02/16/20 Darbepoetin Gurwinder [Aranesp] 40 mcg SQ SA 02/16/20 02/16/20 Furosemide [Lasix] 40 mg PO DAILY@0602/16/20 02/16/20 Zinc 50 mg PO DAILY@0600 02/16/20 02/16/20 oxyCODONE HCL [OxyCONTIN] 10 mg PO BID@0900,2100 02/16/20 02/16/20 Previous Rx's Medication Instructions Recorded Gabapentin [Neurontin] 200 mg PO TID@0900,1500,2100 #9 cap 12/26/19 HYDROcodone/APAP 10-325MG [[place] 1 tab PO Q6HR PRN 3 Days #12 tab 12/26/19 10-325] Midodrine [ProAmatine] 10 mg PO AC-TID #90 tab 02/11/20 Sodium Bicarbonate Tab 650 mg PO QID tab 02/11/20 Allergies Allergy/AdvReac Type Severity Reaction Status Date / Time cephalexin [From Keflex] Allergy Unknown Verified 02/16/20 14:56 duloxetine [From Cymbalta] Allergy Unknown Verified 02/16/20 14:56 Penicillins Allergy Rash/Hives Verified 02/16/20 14:56 phenobarbital Allergy Unknown Verified 02/16/20 14:56 phenytoin sodium Allergy Unknown Verified 02/16/20 14:56 [From Dilantin] phenytoin sodium extended Allergy Unknown Verified 02/16/20 14:56 [From Dilantin] primidone [From Mysoline] Allergy Unknown Verified 02/16/20 14:56 codeine AdvReac Nausea & Verified 02/16/20 14:56 Vomiting Review of Systems ROS Other: All systems not noted in ROS Statement are negative. <Kenny Diaz - Last Filed: 02/16/20 14:55> ROS Other: All systems not noted in ROS Statement are negative. <Rome Pedro - Last Filed: 02/16/20 16:04> ROS Statement: Those systems with pertinent positive or pertinent negative responses have been documented in the HPI. Past Medical History Past Medical History: Cancer, Heart Failure, COPD, Diabetes Mellitus, Fibromyalgia, Hyperlipidemia, Hypertension, Renal Disease, Rheumatoid Arthritis (RA), Seizure Disorder, Supraventricular Tachycardia (SVT) Additional Past Medical History / Comment(s): Breast cancer right-sided post mastectomy followed by chemotherapy, is independent diabetes mellitus type 2, peripheral neuropathy related to diabetes, COPD, liver cirrhosis, hypertension, hyperlipidemia, fibromyalgia, chronic kidney disease, rheumatoid arthritis, seizure disorder, history of SVT, diabetic peripheral neuropathy, chronic anxiety and depression, morbid obesity with a BMI of 58.5, previous history of GI bleed, diverticular disease, history of hepatic encephalopathy History of Any Multi-Drug Resistant Organisms: VRE Date of last positivie culture/infection: 05/11/18 MDRO Source:: VRE URINE Past Surgical History: Adenoidectomy, Appendectomy, Breast Surgery, Cholecystectomy, Hysterectomy, Orthopedic Surgery, Tonsillectomy, Tubal Ligation Additional Past Surgical History / Comment(s): masectomy right, ganglion cyst right hand, total hysterectomy (hx of tubal pregnancies), lower teeth extracted. Past Anesthesia/Blood Transfusion Reactions: No Reported Reaction Past Psychological History: Anxiety, Depression Smoking Status: Former smoker Past Alcohol Use History: None Reported Past Drug Use History: None Reported - Past Family History Father Family Medical History: Cancer, CVA/TIA Additional Family Medical History / Comment(s): 2000 from lung cancer Mother Family Medical History: Cancer, Dementia Additional Family Medical History / Comment(s): 2014 at age 86. Oral & Breast cancer Brother(s) Family Medical History: Asthma, Diabetes Mellitus, Fibromyalgia, Osteoarthritis (OA) Additional Family Medical History / Comment(s): Obesity. Joint replacements <Kenny Diaz - Last Filed: 02/16/20 14:55> General Exam Limitations: no limitations <Kenny Diaz - Last Filed: 02/16/20 14:55> - General Exam Comments Initial Comments: GENERAL: Patient is well-developed and well-nourished. Patient is nontoxic and well-hydr ated and is in mild distress. ENT: Neck is soft and supple. No significant lymphadenopathy is noted. Oropharynx is clear. Moist mucous membranes. Neck has full range of motion without eliciting any pain. EYES: The sclera were anicteric and conjunctiva were pink and moist. Extraocular movements were intact and pupils were equal round and reactive to light. Eyelids were unremarkable. PULMONARY: Unlabored respirations. Good breath sounds bilaterally. No audible rales rhonchi or wheezing was noted. CARDIOVASCULAR: There is a regular rate and rhythm without any murmurs gallops or rubs. ABDOMEN: Area around the incision site is mildly erythematous it is tender to palpate and if the mid abdomen there is an area of fullness that is suspicious for hematoma versus seroma or abscess. SKIN: Mild erythema along the incision site with some pus. NEUROLOGIC: Patient is alert and oriented x3. Cranial nerves II through XII are grossly intact. Motor and sensory are also intact. Normal speech, volume and content. Symmetrical smile. MUSCULOSKELETAL: Normal extremities with adequate strength and full range of motion. 2+ edema bilaterally LYMPHATICS: No significant lymphadenopathy is noted PSYCHIATRIC: Normal psychiatric evaluation. (Kenny Diaz) Course Vital Signs 02/16/20 02/16/20 02/16/20 13:27 14:00 15:00 Temperature 98.4 F Pulse Rate 54 L 78 76 Respiratory 20 20 20 Rate Blood Pressure 92/46 98/50 92/46 O2 Sat by Pulse 94 L 95 95 Oximetry 02/16/20 15:40 Temperature Pulse Rate 54 L Respiratory 20 Rate Blood Pressure 115/73 O2 Sat by Pulse 97 Oximetry Medical Decision Making - Lab Data Result diagrams: 02/16/20 14:10 02/16/20 14:10 <Kenny Diaz - Last Filed: 02/16/20 14:55> - Lab Data Result diagrams: 02/16/20 14:10 02/16/20 14:10 <Rome Pedro - Last Filed: 02/16/20 16:04> - Medical Decision Making [place] body weight with the patient is 47.6 kg. EKG shows sinus bradycardia 52 bpm WV interval 290 QRS on a 52 QT interval 500 QTC is 465. HCG shows no ST segment elevation or depression. Patient has a right bundle branch block.. An old EKG there are no acute changes noted Dr. Pedro will be taking over the care of this patient at 3 PM (Kenny Diaz) Patient was signed out to me by Dr. Diaz. The patient did require 4 mg of morphine for pain control. Vital signs are stable at this time. Computed tomography scan was done which showed a fluid collection subcutaneous air. The patient was started on Levaquin. CBC was unremarkable. I did discuss the case with Dr. Seaman who agreed to admit the patient for IV antibiotics and further wound care. The patient was updated and agrees with plan of care at this time. (Rome Pedro) - Lab Data Lab Results 02/16/20 02/16/20 02/16/20 Range/Units 14:10 14:10 14:10 WBC 5.2 (3.8-10.6) k/uL RBC 3.16 L (3.80-5.40) m/uL Hgb 8.5 L (11.4-16.0) gm/dL Hct 27.9 L (34.0-46.0) % MCV 88.3 (80.0-100.0) fL MCH 27.0 (25.0-35.0) pg MCHC 30.6 L (31.0-37.0) g/dL RDW 18.1 H (11.5-15.5) % Plt Count 174 (150-450) k/uL MPV 7.8 Neutrophils % 73 % Lymphocytes % 12 % Monocytes % 6 % Eosinophils % 6 % Basophils % 1 % Neutrophils # 3.8 (1.3-7.7) k/uL Lymphocytes # 0.7 L (1.0-4.8) k/uL Monocytes # 0.3 (0-1.0) k/uL Eosinophils # 0.3 (0-0.7) k/uL Basophils # 0.1 (0-0.2) k/uL Hypochromasia Marked Anisocytosis Slight PT 10.8 (9.0-12.0) sec INR 1.1 (<1.2) APTT 22.7 (22.0-30.0) sec Sodium 136 L (137-145) mmol/L Potassium 4.9 (3.5-5.1) mmol/L Chloride 106 (98-107) mmol/L Carbon Dioxide 26 (22-30) mmol/L Anion Gap 4 mmol/L BUN 57 H (7-17) mg/dL Creatinine 2.71 H (0.52-1.04) mg/dL Est GFR (CKD-EPI)AfAm 20 (>60 ml/min/1.73 sqM) Est GFR (CKD-EPI)NonAf 17 (>60 ml/min/1.73 sqM) Glucose 114 H (74-99) mg/dL Plasma Lactic Acid Vasile (0.7-2.0) mmol/L Calcium 8.5 (8.4-10.2) mg/dL Total Bilirubin 0.6 (0.2-1.3) mg/dL AST 31 (14-36) U/L ALT 14 (4-34) U/L Alkaline Phosphatase 84 (38-126) U/L Total Protein 6.2 L (6.3-8.2) g/dL Albumin 2.7 L (3.5-5.0) g/dL 02/16/20 Range/Units 14:10 WBC (3.8-10.6) k/uL RBC (3.80-5.40) m/uL Hgb (11.4-16.0) gm/dL Hct (34.0-46.0) % MCV (80.0-100.0) fL MCH (25.0-35.0) pg MCHC (31.0-37.0) g/dL RDW (11.5-15.5) % Plt Count (150-450) k/uL MPV Neutrophils % % Lymphocytes % % Monocytes % % Eosinophils % % Basophils % % Neutrophils # (1.3-7.7) k/uL Lymphocytes # (1.0-4.8) k/uL Monocytes # (0-1.0) k/uL Eosinophils # (0-0.7) k/uL Basophils # (0-0.2) k/uL Hypochromasia Anisocytosis PT (9.0-12.0) sec INR (<1.2) APTT (22.0-30.0) sec Sodium (137-145) mmol/L Potassium (3.5-5.1) mmol/L Chloride (98-107) mmol/L Carbon Dioxide (22-30) mmol/L Anion Gap mmol/L BUN (7-17) mg/dL Creatinine (0.52-1.04) mg/dL Est GFR (CKD-EPI)AfAm (>60 ml/min/1.73 sqM) Est GFR (CKD-EPI)NonAf (>60 ml/min/1.73 sqM) Glucose (74-99) mg/dL Plasma Lactic Acid Vasile 1.1 (0.7-2.0) mmol/L Calcium (8.4-10.2) mg/dL Total Bilirubin (0.2-1.3) mg/dL AST (14-36) U/L ALT (4-34) U/L Alkaline Phosphatase (38-126) U/L Total Protein (6.3-8.2) g/dL Albumin (3.5-5.0) g/dL Disposition <Kenny Diaz - Last Filed: 02/16/20 14:55> Decision to Admit Reason: Admit from EC <Rome Pedro - Last Filed: 02/16/20 16:04> Clinical Impression: Infected seroma, postoperative Disposition: ADMITTED IP TO THIS [facility] Referrals: Tom Han MD [Primary Care Provider] - 1-2 days
[2020-02-16] MEDS ORDERED: SODIUM CHLORIDE 0.9% 500 ML 500 ML IV SCH (13:45)
[2020-02-16] MEDS ORDERED: SODIUM CHLORIDE 0.9% 1,000 ML IV ONE (13:46)
[2020-02-16] MEDS ORDERED: SODIUM CHLORIDE 0.9% 500 ML 500 ML IV ONE (13:46)
[2020-02-16 14:20] LABS: Anisocytosis Slight; Basophils # (A) 0.1 k/uL (0-0.2); Basophils % (A) 1 %; Eosinophils # (A) 0.3 k/uL (0-0.7); Eosinophils % (A) 6 %; HCT 27.9 % (34.0-46.0); HGB 8.5 gm/dL (11.4-16.0); Hypochromasia Marked; Lymphocytes # (A) 0.7 k/uL (1.0-4.8); Lymphocytes % (A) 12 %; MCHC 30.6 g/dL (31.0-37.0); MCV 88.3 fL (80.0-100.0); Mean Platelet Volume 7.8; Monocytes # (A) 0.3 k/uL (0-1.0); Monocytes % (A) 6 %; Neutrophils # (A) 3.8 k/uL (1.3-7.7); Neutrophils % (A) 73 %; Platelet Count 174 k/uL (150-450); RBC 3.16 m/uL (3.80-5.40); RDW 18.1 % (11.5-15.5); WBC 5.2 k/uL (3.8-10.6)
[2020-02-16 14:29] LABS: Albumin 2.7 g/dL (3.5-5.0); Calcium 8.5 mg/dL (8.4-10.2); INR 1.1 (<1.2); Partial Thromboplastin Time 22.7 sec (22.0-30.0); Potassium 4.9 mmol/L (3.5-5.1); Prothrombin Time 10.8 sec (9.0-12.0); Total Bilirubin 0.6 mg/dL (0.2-1.3); Total Protein 6.2 g/dL (6.3-8.2)
[2020-02-16] MEDS ORDERED: MORPHINE SULFATE 4 MG/ML SYRINGE IVP STA (15:37)
--- NOTE | 2020-02-16 15:39 | CT ---
EXAMINATION TYPE: CT abdomen pelvis wo con DATE OF EXAM: 02/16/2020 COMPARISON: 02/05/2020 HISTORY: Abdominal pain and diarrhea. CT DLP: 1840.2 mGycm Automated exposure control for dose reduction was used. Images obtained from the diaphragm to the floor the pelvis with no contrast. Lung bases are clear of consolidation there is mild subsegmental atelectasis left lung base. Heart ap pears enlarged. Liver shows no focal defect. There are clips from cholecystectomy. Spleen is enlarged and measures 16 cm. There are surgical clips over the anterior abdominal wall with subcutaneous fluid and air bubble s consistent with recent surgery. This is increased compared to old exam. There are bubbles appear ne w. There is no pancreatic mass. There is mild abdominal ascites. There is retained fecal material in the large bowel down to the rectum. Rectum measures 8 cm. There is Granados catheter in the urinary bladder with air. There is no evidence of pneumoperitoneum. There is subcutaneous edema around the abdomen. Bony pelvis appears intact. There is mild biconcave change of L3 and L5 vertebral body consistent with some osteomalacia. Lumbar vertebra have normal alignment. IMPRESSION: Subcutaneous density at the incision site over the anterior abdomen increased compared to old exam. T here are a few air bubbles. Infection is possible. Splenomegaly. Mild abdominal ascites unchanged. There is improvement in the left pleural effusion compared to old exam. Rectal fecal impaction increased compared to old exam.
[2020-02-16] MEDS ORDERED: NALOXONE 0.4 MG/ML 1 ML VIAL IV PRN (16:01)
[2020-02-16 18:17] LABS: Amorphous Sediment,Urine Rare /hpf; Appearance,Urine Cloudy (Clear); Bacteria,Urine Many /hpf; Bilirubin,Urine Negative (Negative); Blood,Urine Moderate (Negative); Color,Urine Yellow; Glucose,Urine (UA) Negative (Negative); Hyaline Casts,Urine 56 /lpf (0-2); Ketones,Urine Negative (Negative); Leukocyte Esterase,Urine Large (Negative); Mucus,Urine Occasional /hpf; Nitrite,Urine Negative (Negative); Protein,Urine 1+ (Negative); RBC,Urine 118 /hpf (0-5); Specific Gravity,Urine 1.014 (1.001-1.035); Urobilinogen,Urine <2.0 mg/dL (<2.0); WBC,Urine >182 /hpf (0-5)
[2020-02-16] MEDS ORDERED: ARTIFICIAL TEARS-HYPROMELLOSE DROPS 15 ML BTL BOTH EYES PRN (19:48)
[2020-02-16] MEDS ORDERED: OXYMETAZOLINE 0.05% NASL SPRAY 1 SPRAY BOTTLE NASAL PRN (19:48)
[2020-02-16] MEDS ORDERED: MELATONIN 5 MG TABLET PO PRN (19:48)
[2020-02-16 20:34] LABS: Glucose,Whole Blood 111 mg/dL (75-99)
[2020-02-16] MEDS: INSULIN ASPART (NovoLOG) 100 UNIT/ML VIAL SQ SCH (21:01)
[2020-02-16] MEDS: SENNOSIDES 8.6 MG TAB PO SCH (21:03)
[2020-02-16] MEDS: LACTULOSE 20 GM/30 ML CUP PO SCH (21:03)
[2020-02-16] MEDS: GABAPENTIN 100 MG CAP PO SCH (21:24)
[2020-02-16] MEDS: oxyCODONE ER 10 MG TAB.ER.12H PO SCH (21:24)
[2020-02-16] MEDS: METOPROLOL TARTRATE 12.5 MG TAB PO SCH (21:24)
[2020-02-16] MEDS: RIFAXIMIN 550 MG TABLET PO SCH (21:25)
[2020-02-16] MEDS: SODIUM BICARBONATE TAB 650 MG TAB PO SCH (21:27)
[2020-02-17] MEDS: FOLIC ACID 1 MG TAB PO SCH (05:39)
[2020-02-17] MEDS: ASCORBIC ACID 500 MG TAB PO SCH (05:39)
[2020-02-17] MEDS: PANTOPRAZOLE 40 MG TABLET PO SCH (05:40)
[2020-02-17] MEDS: SENNOSIDES 8.6 MG TAB PO SCH ×2 (05:40→20:27)
[2020-02-17] MEDS: ZINC SULFATE 220 MG CAP PO SCH (05:40)
[2020-02-17] MEDS: THIAMINE 100 MG TAB PO SCH (05:40)
[2020-02-17] MEDS: RIFAXIMIN 550 MG TABLET PO SCH ×2 (05:41→20:24)
[2020-02-17] MEDS ORDERED: SPIRONOLACTONE 25 MG TAB PO SCH (06:00)
[2020-02-17] MEDS ORDERED: FUROSEMIDE 40 MG TAB PO SCH (06:00)
[2020-02-17 07:32] LABS: Glucose,Whole Blood 103 mg/dL (75-99)
[2020-02-17] MEDS: INSULIN ASPART (NovoLOG) 100 UNIT/ML VIAL SQ SCH ×7 (07:37→20:28)
[2020-02-17] MEDS: LACTULOSE 20 GM/30 ML CUP PO SCH ×2 (07:39→20:27)
[2020-02-17] MEDS: SODIUM BICARBONATE TAB 650 MG TAB PO SCH ×4 (07:40→20:26)
[2020-02-17] MEDS: GABAPENTIN 100 MG CAP PO SCH (07:40)
[2020-02-17] MEDS: METOPROLOL TARTRATE 12.5 MG TAB PO SCH ×2 (07:40→20:26)
[2020-02-17] MEDS: FERROUS SULFATE 325 MG TAB PO SCH (07:41)
[2020-02-17] MEDS: oxyCODONE ER 10 MG TAB.ER.12H PO SCH ×2 (07:41→20:26)
[2020-02-17] MEDS: MIDODRINE 5 MG TAB PO SCH ×3 (07:41→17:26)
[2020-02-17] MEDS: MULTIVITAMINS, THERA 1 EACH TAB PO SCH (07:41)
[2020-02-17] MEDS: SERTRALINE 25 MG TAB PO SCH (07:44)
[2020-02-17] MEDS: ANASTROZOLE 1 MG TAB PO SCH (07:44)
[2020-02-17] MEDS ORDERED: LEVOFLOXACIN 500MG-D5W PMX 500 MG in DEXTROSE/WATER 1 100ML.BAG IVPB SCH (08:30)
[2020-02-17 08:56] LABS: Anisocytosis Slight; Basophils # (A) 0.1 k/uL (0-0.2); Basophils % (A) 1 %; Eosinophils # (A) 0.2 k/uL (0-0.7); Eosinophils % (A) 4 %; HCT 29.3 % (34.0-46.0); HGB 8.8 gm/dL (11.4-16.0); Hypochromasia Marked; Lymphocytes # (A) 0.6 k/uL (1.0-4.8); Lymphocytes % (A) 13 %; MCH 27.3 pg (25.0-35.0); MCHC 30.1 g/dL (31.0-37.0); MCV 90.9 fL (80.0-100.0); Mean Platelet Volume 7.8; Monocytes # (A) 0.3 k/uL (0-1.0); Monocytes % (A) 6 %; Neutrophils # (A) 3.6 k/uL (1.3-7.7); Neutrophils % (A) 75 %; Platelet Count 152 k/uL (150-450); RBC 3.22 m/uL (3.80-5.40); RDW 17.9 % (11.5-15.5); WBC 4.9 k/uL (3.8-10.6)
[2020-02-17] MEDS ORDERED: metOLazone 5 MG TAB PO SCH (09:00)
[2020-02-17 09:07] LABS: ALT 12 U/L (4-34); AST 28 U/L (14-36); African American GFR (CKD) 20 (>60 ml/min/1.73 sqM); Albumin 2.7 g/dL (3.5-5.0); Albumin/Globulin Ratio 0.8; Alkaline Phosphatase 93 U/L (38-126); Anion Gap 7 mmol/L; Blood Urea Nitrogen 55 mg/dL (7-17); Calcium 8.6 mg/dL (8.4-10.2); Carbon Dioxide 23 mmol/L (22-30); Chloride 107 mmol/L (98-107); Globulin 3.5 g/dL; Glucose 99 mg/dL (74-99); Non-African American GFR(CKD) 17 (>60 ml/min/1.73 sqM); Potassium 5.1 mmol/L (3.5-5.1); Sodium 137 mmol/L (137-145); Total Bilirubin 0.8 mg/dL (0.2-1.3); Total Protein 6.2 g/dL (6.3-8.2)
--- NOTE | 2020-02-17 10:35 | P.GSHP ---
History of Present Illness H&P Date: 02/17/20 CHIEF COMPLAINT: Infection incision site HISTORY OF PRESENT ILLNESS: This is a 70-year-old female who had recent hospitalization with right colectomy for GI bleed and angiodysplasia on 01/27/[address] Seaman. Patient had readmission on 02/06/2020 4 infection at incision site patient had jm removed at that time and wound was packed. She was given IV antibiotics and then returned to [facility]. Patient presented back to the emergency room with complaints that there was increased redness at the incision site and having drainage from the incision. Per nursing staff there has been a thick serous drainage from incision. Patient denies any fevers or chills. Denies any nausea or vomiting. Patient is unsure when her last bowel movement was. She reports more of her pain is on the left lower side of the abdomen. She had a computed tomography scan of the abdomen and pelvis showing the subcutaneous density at incision site over the anterior abdomen increased compared to old exam. There are a few air bubbles. Infection is possible. Splenomegaly. Mild abdominal ascites unchanged. There is improvement in the left pleural effusion compared to old exam. Rectal fecal impaction increased compared to old exam. Patient has been admitted to the hospital started on IV antibiotics. Cultures obtained. Patient recently was COVID positive. She also has history of diverticulosis with diverticular GI bleed, congestive heart failure, COPD, liver cirrhosis, diabetes mellitus, fiber myalgia, hyperlipidemia, hypertension, chronic kidney disease, rheumatoid arthritis and history of breast cancer with right mastectomy. PAST MEDICAL HISTORY: See list. PAST SURGICAL HISTORY: See list. MEDICATIONS: See list. ALLERGIES: See list. SOCIAL HISTORY: No illicit drug use. REVIEW OF SYSTEMS: CONSTITUTIONAL: Denies fever or chills. HEENT: Denies blurred vision, vision changes, or eye pain. Denies hemoptysis CARDIOVASCULAR: Denies chest pain or pressure. RESPIRATORY: No shortness of breath. GASTROINTESTINAL: See HPI for pertinent findings HEMATOLOGIC: Denies bleeding disorders. GENITOURINARY: Denies any blood in urine or increased urinary frequency. SKIN: Denies pruitis. Denies rash. PHYSICAL EXAM: VITAL SIGNS: Reviewed GENERAL: Well-developed in no acute distress. HEENT: No sclera icterus. Extraocular movements grossly intact. Moist buccal mucosa. Head is atraumatic, normocephalic. No nasal drainage. ABDOMEN: Soft. Obese. Nondistended. Mild erythema noted along the incision site. Open area of incision dressing is clean dry and intact. Nursing staff recently changed dressing. Mild erythema noted along the left lower abdomen. Tender with palpation on the left lower abdomen. NEUROLOGIC: Alert and oriented. Cranial nerves II through XII grossly intact. LABORATORY DATA: WBC 4.9 hemoglobin 8.8 sodium 137 potassium 5.1 creatinine 2.77 lactic 1.1 Urine culture pending Wound culture pending Covid negative on 02/06/2020 IMAGING: computed tomography scan of the abdomen and pelvis showing the subcutaneous density at incision site over the anterior abdomen increased compared to old exam. There are a few air bubbles. Infection is possible. Splenomegaly. Mild abdominal ascites unchanged. There is improvement in the left pleural effusion compared to old exam. Rectal fecal impaction increased compared to old exam. ASSESSMENT: 1. Infected Seroma 2. Status post right colectomy for GI bleed and angiodysplasia on 01/27/2020 PLAN: -Continue conservative management. No surgical intervention planned -Continue IV antibiotics -Follow up on wound culture results -Consult ID -Pack abdominal incision with Aquasol Silver -Consult medical service for medical management -GI prophylaxis Protonix and DVT prophylaxis subcu heparin Physician Infant Lead Teacher note has been reviewed by physician. Signing provider agrees with the documented findings, assessment, and plan of care. Past Medical History Past Medical History: Cancer, Heart Failure, COPD, Diabetes Mellitus, Fibromyalgia, Hyperlipidemia, Hypertension, Renal Disease, Rheumatoid Arthritis (RA), Seizure Disorder, Supraventricular Tachycardia (SVT) Additional Past Medical History / Comment(s): Breast cancer right-sided post mastectomy followed by chemotherapy, is independent diabetes mellitus type 2, peripheral neuropathy related to diabetes, COPD, liver cirrhosis, hypertension, hyperlipidemia, fibromyalgia, chronic kidney disease, rheumatoid arthritis, seizure disorder, history of SVT, diabetic peripheral neuropathy, chronic anxiety and depression, morbid obesity with a BMI of 58.5, previous history of GI bleed, diverticular disease, history of hepatic encephalopathy History of Any Multi-Drug Resistant Organisms: VRE Date of last positivie culture/infection: 05/11/18 MDRO Source:: VRE URINE Past Surgical History: Adenoidectomy, Appendectomy, Breast Surgery, Cholecystectomy, Hysterectomy, Orthopedic Surgery, Tonsillectomy, Tubal Ligation Additional Past Surgical History / Comment(s): masectomy right, ganglion cyst right hand, total hysterectomy (hx of tubal pregnancies), lower teeth extracted. Past Anesthesia/Blood Transfusion Reactions: No Reported Reaction Past Psychological History: Anxiety, Depression Additional Psychological History / Comment(s): Pt currently is at [facility] on [facility] for rehab. She needs assist with ADLS except feeds self. She states up until just lately she was getting up with a walker some. No experience. Did not work outside of the home. . No alcohol use Smoking Status: Former smoker Past Alcohol Use History: None Reported Additional Past Alcohol Use History / Comment(s): Pt started smoking in 1971 and qut in December 2017. Per patient she smoked 1-2 cigarettes a day after meals. Past Drug Use History: None Reported - Past Family History Father Family Medical History: Cancer, CVA/TIA Additional Family Medical History / Comment(s): 2000 from lung cancer Mother Family Medical History: Cancer, Dementia Additional Family Medical History / Comment(s): 2014 at age 86. Oral & Breast cancer Brother(s) Family Medical History: Asthma, Diabetes Mellitus, Fibromyalgia, Osteoarthritis (OA) Additional Family Medical History / Comment(s): Obesity. Joint replacements Medications and Allergies Home Medications Medication Instructions Recorded Confirmed Type Anastrozole [Arimidex] 1 mg PO DAILY@0900 09/30/14 02/16/20 History Sennosides [Senna] 8.6 mg PO BID@0600,2100 04/02/18 02/16/20 History Pantoprazole [Protonix] 40 mg PO DAILY@0600 07/02/18 02/16/20 History Ferrous Sulfate [Iron (65 MG 325 mg PO DAILY@0900 08/16/18 02/16/20 History Elemental)] Acetaminophen [Tylenol] 650 mg PO Q4H PRN 08/24/19 02/16/20 History Dextran 70/Hypromellose [Genteal 1 drop BOTH EYES Q12H PRN 08/24/19 02/16/20 History Tears 0.1%-0.3% Drop] Folic Acid 1 mg PO DAILY@0600 08/24/19 02/16/20 History Lactulose 20 gm PO BID@0900,2100 08/24/19 02/16/20 History Multivitamins, Thera [Multivitamin 1 tab PO DAILY@1200 08/24/19 02/16/20 History (formulary)] Rifaximin [Xifaxan] 550 mg PO BID@0600,209908/24/19 02/16/20 History Thiamine [Vitamin B-1] 100 mg PO DAILY@0600 08/24/19 02/16/20 History Melatonin 10 mg PO HS PRN 10/25/19 02/16/20 History Oxymetazoline 0.05% Nasl [place] 1 spray NASAL Q15M PRN MDD 3 DOSES 10/25/19 02/16/20 History [Afrin 0.05% Nasal [place]] Gabapentin [Neurontin] 200 mg PO TID@0900,1500,2099 #9 cap 12/26/19 02/16/20 Rx HYDROcodone/APAP 10-325MG [[place] 1 tab PO Q6HR PRN 3 Days #12 tab 12/26/19 02/16/20 Rx 10-325] Ascorbic Acid [Vitamin C] 500 mg PO DAILY@0600 01/19/20 02/16/20 History Sertraline HCl [Zoloft] 25 mg PO DAILY@0900 01/19/20 02/16/20 History Spironolactone [Aldactone] 50 mg PO DAILY@0600 01/19/20 02/16/20 History metOLazone [Zaroxolyn] 5 mg PO DAILY@0900 01/19/20 02/16/20 History INSULIN LISPRO (humaLOG) [humaLOG] 4 units SQ AC-TID 02/05/20 02/16/20 History Metoprolol Tartrate [Lopressor] 12.5 mg PO BID@0900,209902/05/20 02/16/20 History Midodrine [ProAmatine] 10 mg PO AC-TID #90 tab 02/11/20 02/16/20 Rx Sodium Bicarbonate Tab 650 mg PO QID tab 02/11/20 02/16/20 Rx Darbepoetin Gurwinder [Aranesp] 40 mcg SQ SA 02/16/20 02/16/20 History Furosemide [Lasix] 40 mg PO DAILY@0600 02/16/20 02/16/20 History Zinc 50 mg PO DAILY@0602/16/20 02/16/20 History oxyCODONE HCL [OxyCONTIN] 10 mg PO BID@0900,2100 02/16/20 02/16/20 History Allergies Allergy/AdvReac Type Severity Reaction Status Date / Time cephalexin [From Keflex] Allergy Unknown Verified 02/16/20 14:56 duloxetine [From Cymbalta] Allergy Unknown Verified 02/16/20 14:56 Penicillins Allergy Rash/Hives Verified 02/16/20 14:56 phenobarbital Allergy Unknown Verified 02/16/20 14:56 phenytoin sodium Allergy Unknown Verified 02/16/20 14:56 [From Dilantin] phenytoin sodium extended Allergy Unknown Verified 02/16/20 14:56 [From Dilantin] primidone [From Mysoline] Allergy Unknown Verified 02/16/20 14:56 codeine AdvReac Nausea & Verified 02/16/20 14:56 Vomiting Surgical - Exam Vital Signs Temp Pulse Resp BP Pulse Ox 98.4 F 54 L 20 92/46 94 L 02/16/20 13:27 02/16/20 13:27 02/16/20 13:27 02/16/20 13:27 02/16/20 13:27 Results - Labs 02/17/20 08:28 02/17/20 08:28 Abnormal Lab Results - Last 24 Hours (Table) 02/16/20 02/16/20 02/16/20 Range/Units 14:10 14:10 18:00 RBC 3.16 L (3.80-5.40) m/uL Hgb 8.5 L (11.4-16.0) gm/dL Hct 27.9 L (34.0-46.0) % MCHC 30.6 L (31.0-37.0) g/dL RDW 18.1 H (11.5-15.5) % Lymphocytes # 0.7 L (1.0-4.8) k/uL Sodium 136 L (137-145) mmol/L BUN 57 H (7-17) mg/dL Creatinine 2.71 H (0.52-1.04) mg/dL Glucose 114 H (74-99) mg/dL POC Glucose (mg/dL) (75-99) mg/dL Total Protein 6.2 L (6.3-8.2) g/dL Albumin 2.7 L (3.5-5.0) g/dL Urine Appearance Cloudy H (Clear) Urine Protein 1+ H (Negative) Urine Blood Moderate H (Negative) Ur Leukocyte Esterase Large H (Negative) Urine RBC 118 H (0-5) /hpf Urine WBC >182 H (0-5) /hpf Amorphous Sediment Rare H (None) /hpf Urine Bacteria Many H (None) /hpf Hyaline Casts 56 H (0-2) /lpf Urine Mucus Occasional H (None) /hpf 02/16/20 02/17/20 02/17/20 Range/Units 20:32 07:31 08:28 RBC 3.22 L (3.80-5.40) m/uL Hgb 8.8 L (11.4-16.0) gm/dL Hct 29.3 L (34.0-46.0) % MCHC 30.1 L (31.0-37.0) g/dL RDW 17.9 H (11.5-15.5) % Lymphocytes # 0.6 L (1.0-4.8) k/uL Sodium (137-145) mmol/L BUN (7-17) mg/dL Creatinine (0.52-1.04) mg/dL Glucose (74-99) mg/dL POC Glucose (mg/dL) 111 H 103 H (75-99) mg/dL Total Protein (6.3-8.2) g/dL Albumin (3.5-5.0) g/dL Urine Appearance (Clear) Urine Protein (Negative) Urine Blood (Negative) Ur Leukocyte Esterase (Negative) Urine RBC (0-5) /hpf Urine WBC (0-5) /hpf Amorphous Sediment (None) /hpf Urine Bacteria (None) /hpf Hyaline Casts (0-2) /lpf Urine Mucus (None) /hpf 02/17/20 Range/Units 08:28 RBC (3.80-5.40) m/uL Hgb (11.4-16.0) gm/dL Hct (34.0-46.0) % MCHC (31.0-37.0) g/dL RDW (11.5-15.5) % Lymphocytes # (1.0-4.8) k/uL Sodium (137-145) mmol/L BUN 55 H (7-17) mg/dL Creatinine 2.77 H (0.52-1.04) mg/dL Glucose (74-99) mg/dL POC Glucose (mg/dL) (75-99) mg/dL Total Protein 6.2 L (6.3-8.2) g/dL Albumin 2.7 L (3.5-5.0) g/dL Urine Appearance (Clear) Urine Protein (Negative) Urine Blood (Negative) Ur Leukocyte Esterase (Negative) Urine RBC (0-5) /hpf Urine WBC (0-5) /hpf Amorphous Sediment (None) /hpf Urine Bacteria (None) /hpf Hyaline Casts (0-2) /lpf Urine Mucus (None) /hpf Microbiology - Last 24 Hours (Table) 02/16/20 15:11 Gram Stain - Preliminary Abdomen Wound Culture - Preliminary 02/16/20 18:00 Urine Culture - Preliminary Urine,Clean Catch Diabetes panel 02/16/20 02/17/20 Range/Units 14:10 08:28 Sodium 136 L 137 (137-145) mmol/L Potassium 4.9 5.1 (3.5-5.1) mmol/L Chloride 106 107 (98-107) mmol/L Carbon Dioxide 26 23 (22-30) mmol/L BUN 57 H 55 H (7-17) mg/dL Creatinine 2.71 H 2.77 H (0.52-1.04) mg/dL Glucose 114 H 99 (74-99) mg/dL Calcium 8.5 8.6 (8.4-10.2) mg/dL AST 31 28 (14-36) U/L ALT 14 12 (4-34) U/L Alkaline Phosphatase 84 93 (38-126) U/L Total Protein 6.2 L 6.2 L (6.3-8.2) g/dL Albumin 2.7 L 2.7 L (3.5-5.0) g/dL Calcium panel 02/16/20 02/17/20 Range/Units 14:10 08:28 Calcium 8.5 8.6 (8.4-10.2) mg/dL Albumin 2.7 L 2.7 L (3.5-5.0) g/dL Pituitary panel 02/16/20 02/17/20 Range/Units 14:10 08:28 Sodium 136 L 137 (137-145) mmol/L Potassium 4.9 5.1 (3.5-5.1) mmol/L Chloride 106 107 (98-107) mmol/L Carbon Dioxide 26 23 (22-30) mmol/L BUN 57 H 55 H (7-17) mg/dL Creatinine 2.71 H 2.77 H (0.52-1.04) mg/dL Glucose 114 H 99 (74-99) mg/dL Calcium 8.5 8.6 (8.4-10.2) mg/dL Adrenal panel 02/16/20 02/17/20 Range/Units 14:10 08:28 Sodium 136 L 137 (137-145) mmol/L Potassium 4.9 5.1 (3.5-5.1) mmol/L Chloride 106 107 (98-107) mmol/L Carbon Dioxide 26 23 (22-30) mmol/L BUN 57 H 55 H (7-17) mg/dL Creatinine 2.71 H 2.77 H (0.52-1.04) mg/dL Glucose 114 H 99 (74-99) mg/dL Calcium 8.5 8.6 (8.4-10.2) mg/dL Total Bilirubin 0.6 0.8 (0.2-1.3) mg/dL AST 31 28 (14-36) U/L ALT 14 12 (4-34) U/L Alkaline Phosphatase 84 93 (38-126) U/L Total Protein 6.2 L 6.2 L (6.3-8.2) g/dL Albumin 2.7 L 2.7 L (3.5-5.0) g/dL
[2020-02-17 11:34] LABS: Glucose,Whole Blood 112 mg/dL (75-99)
[2020-02-17] MEDS ORDERED: DAPTOmycin 500 MG in SODIUM CHLORIDE 0.9% 50 ML IVPB SCH (12:00)
[2020-02-17] MEDS: DAPTOmycin 500 MG in SODIUM CHLORIDE 0.9% 50 ML IVPB SCH (12:16)
--- NOTE | 2020-02-17 13:45 | P.CONS ---
History of Present Illness - Reason for Consult Consult date: 02/17/20 Infected seroma - History of Present Illness HISTORY OF PRESENT ILLNESS This is a 70-year-old female well-known to ID service as she was recently seen at the end of January for abdominal wound dehiscence and possible wound infection from previous right colectomy for GI bleed and angiodysplasia on January [address] Seaman. Wound culture was positive for staph epi likely a skin abby and doubted secondary cellulitis at the time and because of patient's antibiotic ALLERGY and renal insufficiency, no antibiotics were prescribed at discharge. Recommendations were to continue supportive care. Patient states that she noticed a red area on the left side of her abdomen and she also had increasing tenderness to her abdomen. She states her pain was a #9/10. She denies having any fever. No nausea or vomiting. She states she's had some diarrhea. She denies having any chest pain. She states she had a little cough. According to the ER notes, staff at [facility] noticed pus draining from the incisional site. She was afebrile, heart rate 54, blood pressure 92/46, pulse ox 94%. WBC 5.2, hemoglobin 8.5, platelet count 174. BUN 57 creatinine 2.71. Blood sugar 114. Lactic acid 1.1. CAT scan of the abdomen and pelvis without contrast reveals subcutaneous density at the incision site over the anterior abdomen increased compared to old exam. A few air bubbles. Infection possible. Splenomegaly. Mild abdominal ascites unchanged. Improvement of the left pleural effusion. Rectal fecal impaction increased from old exam. Patient was admitted to the [facility] floor and started on Levaquin REVIEW OF SYSTEMS Constitutional: No fever, no chills, no night sweats. No weight change. No weakness, fatigue or lethargy. No daytime sleepiness. EENT: No headache. No blurred vision or double vision, no loss of vision. No loss of Hearing, no ringing in the ears, no dizziness. No nasal drainage or congestion. No epistaxis. No sore throat. Lungs: No shortness of breath, cough, no sputum production. No wheezing. Cardiovascular: No chest pain, no lower extremity edema. No palpitations. No paroxysmal nocturnal dyspnea. No orthopnea. No lightheadedness or dizziness. No syncopal episodes. Abdominal: No abdominal pain. No nausea, vomiting. No diarrhea. No constipation. No bloody or tarry stools.. No loss of appetite. Genitourinary: No dysuria, increased frequency, urgency. No urinary retention. Musculoskeletal: No myalgias. No muscle weakness, no gait dysfunction, no frequent falls. No back pain. No neck pain. Integumentary: No wounds, no lesions. No rash or pruritus. No unusual bruising. No change in hair or nails. Neurologic: No aphasia. No facial droop. No change in mentation. No head injury. No headache. No paralysis. No paresthesia. Endocrine: No abnormal blood sugars. No weight change. PHYSICAL EXAMINATION Gen: This is a 70-year-old morbidly obese female. She is resting in bed and appears comfortable. VS: Afebrile, heart rate 61, blood pressure 105/66, pulse ox 94% on room air. HEENT: Head is atraumatic, normocephalic. Pupils equal, round. Sclerae is anicteric. NECK: Supple. No JVD. No lymphadenopathy. No thyromegaly. LUNGS: Clear to auscultation. No wheezes or rhonchi. No intercostal retractions. HEART: Regular rate and rhythm. No murmur. ABDOMEN: Abdomen is soft. Bowel sounds are present. Midline incision with mild erythema along the incision. Significant tenderness. Granados catheter in place. EXTREMITIES: No pedal edema. No calf tenderness. NEUROLOGICAL: Patient is awake, alert and oriented x3. ASSESSMENT Possible infected seroma History of right colectomy for GI bleed and angiodysplasia Possible catheter associated urinary tract infection versus colonization PLAN Discontinue Levaquin Start patient on daptomycin repeat wound culture Repeat blood culture Urine culture Continue supportive care The above dictated assessment and findings were discussed with Dr. Boyd. The impression and plan of care have been directed as dictated. Keli Guzman nurse practitioner acting as scribe for Dr. Boyd. Past Medical History Past Medical History: Cancer, Heart Failure, COPD, Diabetes Mellitus, Fibromyalgia, Hyperlipidemia, Hypertension, Renal Disease, Rheumatoid Arthritis (RA), Seizure Disorder, Supraventricular Tachycardia (SVT) Additional Past Medical History / Comment(s): Breast cancer right-sided post mastectomy followed by chemotherapy, is independent diabetes mellitus type 2, peripheral neuropathy related to diabetes, COPD, liver cirrhosis, hypertension, hyperlipidemia, fibromyalgia, chronic kidney disease, rheumatoid arthritis, seizure disorder, history of SVT, diabetic peripheral neuropathy, chronic anxiety and depression, morbid obesity with a BMI of 58.5, previous history of GI bleed, diverticular disease, history of hepatic encephalopathy History of Any Multi-Drug Resistant Organisms: VRE Year Discovered:: 05/11/18 MDRO Source:: VRE URINE Past Surgical History: Adenoidectomy, Appendectomy, Breast Surgery, Cholecystect bishop, Hysterectomy, Orthopedic Surgery, Tonsillectomy, Tubal Ligation Additional Past Surgical History / Comment(s): masectomy right, ganglion cyst right hand, total hysterectomy (hx of tubal pregnancies), lower teeth extracted. Past Anesthesia/Blood Transfusion Reactions: No Reported Reaction Past Psychological History: Anxiety, Depression Additional Psychological History / Comment(s): Pt currently is at [facility] for rehab. She needs assist with ADLS except feeds self. She states up until just lately she was getting up with a walker some. No experience. Did not work outside of the home. . No alcohol use Smoking Status: Former smoker Past Alcohol Use History: None Reported Additional Past Alcohol Use History / Comment(s): Pt started smoking in 1971 and qut in December 2017. Per patient she smoked 1-2 cigarettes a day after meals. Past Drug Use History: None Reported - Past Family History Father Family Medical History: Cancer, CVA/TIA Additional Family Medical History / Comment(s): 2000 from lung cancer Mother Family Medical History: Cancer, Dementia Additional Family Medical History / Comment(s): 2014 at age 86. Oral & Breast cancer Brother(s) Family Medical History: Asthma, Diabetes Mellitus, Fibromyalgia, Osteoarthritis (OA) Additional Family Medical History / Comment(s): Obesity. Joint replacements Medications and Allergies Home Medications Medication Instructions Recorded Confirmed Type Anastrozole [Arimidex] 1 mg PO DAILY@0900 09/30/14 02/16/20 History Sennosides [Senna] 8.6 mg PO BID@0600,2100 04/02/18 02/16/20 History Pantoprazole [Protonix] 40 mg PO DAILY@0600 07/02/18 02/16/20 History Ferrous Sulfate [Iron (65 MG 325 mg PO DAILY@0900 08/16/18 02/16/20 History Elemental)] Acetaminophen [Tylenol] 650 mg PO Q4H PRN 08/24/19 02/16/20 History Dextran 70/Hypromellose [Genteal 1 drop BOTH EYES Q12H PRN 08/24/19 02/16/20 History Tears 0.1%-0.3% Drop] Folic Acid 1 mg PO DAILY@0600 08/24/19 02/16/20 History Lactulose 20 gm PO BID@0900,2100 08/24/19 02/16/20 History Multivitamins, Thera [Multivitamin 1 tab PO DAILY@1200 08/24/19 02/16/20 History (formulary)] Rifaximin [Xifaxan] 550 mg PO BID@0600,2100 08/24/19 02/16/20 History Thiamine [Vitamin B-1] 100 mg PO DAILY@0600 08/24/19 02/16/20 History Melatonin 10 mg PO HS PRN 10/25/19 02/16/20 History Oxymetazoline 0.05% Nasl [place] 1 spray NASAL Q15M PRN MDD 3 DOSES 10/25/19 02/16/20 History [Afrin 0.05% Nasal [place]] Gabapentin [Neurontin] 200 mg PO TID@0900,1500,2100 #9 cap 12/26/19 02/16/20 Rx HYDROcodone/APAP 10-325MG [[place] 1 tab PO Q6HR PRN 3 Days #12 tab 12/26/19 02/16/20 Rx 10-325] Ascorbic Acid [Vitamin C] 500 mg PO DAILY@0600 01/19/20 02/16/20 History Sertraline HCl [Zoloft] 25 mg PO DAILY@0900 01/19/20 02/16/20 History Spironolactone [Aldactone] 50 mg PO DAILY@0600 01/19/20 02/16/20 History metOLazone [Zaroxolyn] 5 mg PO DAILY@0900 01/19/20 02/16/20 History INSULIN LISPRO (humaLOG) [humaLOG] 4 units SQ AC-TID 02/05/20 02/16/20 History Metoprolol Tartrate [Lopressor] 12.5 mg PO BID@0900,2100 02/05/20 02/16/20 History Midodrine [ProAmatine] 10 mg PO AC-TID #90 tab 02/11/20 02/16/20 Rx Sodium Bicarbonate Tab 650 mg PO QID tab 02/11/20 02/16/20 Rx Darbepoetin Gurwinder [Aranesp] 40 mcg SQ SA 02/16/20 02/16/20 History Furosemide [Lasix] 40 mg PO DAILY@0600 02/16/20 02/16/20 History Zinc 50 mg PO DAILY@0600 02/16/20 02/16/20 History oxyCODONE HCL [OxyCONTIN] 10 mg PO BID@0900,2100 02/16/20 02/16/20 History Allergies Allergy/AdvReac Type Severity Reaction Status Date / Time cephalexin [From Keflex] Allergy Unknown Verified 02/16/20 14:56 duloxetine [From Cymbalta] Allergy Unknown Verified 02/16/20 14:56 Penicillins Allergy Rash/Hives Verified 02/16/20 14:56 phenobarbital Allergy Unknown Verified 02/16/20 14:56 phenytoin sodium Allergy Unknown Verified 02/16/20 14:56 [From Dilantin] phenytoin sodium extended Allergy Unknown Verified 02/16/20 14:56 [From Dilantin] primidone [From Mysoline] Allergy Unknown Verified 02/16/20 14:56 codeine AdvReac Nausea & Verified 02/16/20 14:56 Vomiting Physical Exam Vitals: Vital Signs Temp Pulse Pulse Resp BP BP Pulse Ox 02/17/20 08:00 97.7 F 61 16 105/66 94 L 02/17/20 01:34 98.4 F 98 15 99/65 98 02/16/20 19:11 97.9 F 58 L 19 113/74 97 02/16/20 17:15 98.3 F 58 L 107/54 96 02/16/20 16:00 99 F 69 20 115/73 96 02/16/20 15:40 54 L 20 115/73 97 02/16/20 15:00 76 20 92/46 95 02/16/20 14:00 78 20 98/50 95 Intake and Output 02/16/20 02/17/20 02/17/20 22:59 06:59 14:59 Output Total 500 Balance -500 Output: Urine 500 Other: Voiding Method Indwelling Catheter Indwelling Catheter # Bowel Movements 2 Weight 131.542 kg Results CBC & Chem 7: 02/17/20 08:28 02/17/20 08:28 Labs: Abnormal Lab Results - Last 24 Hours (Table) 02/16/20 02/16/20 02/16/20 Range/Units 14:10 14:10 18:00 RBC 3.16 L (3.80-5.40) m/uL Hgb 8.5 L (11.4-16.0) gm/dL Hct 27.9 L (34.0-46.0) % MCHC 30.6 L (31.0-37.0) g/dL RDW 18.1 H (11.5-15.5) % Lymphocytes # 0.7 L (1.0-4.8) k/uL Sodium 136 L (137-145) mmol/L BUN 57 H (7-17) mg/dL Creatinine 2.71 H (0.52-1.04) mg/dL Glucose 114 H (74-99) mg/dL POC Glucose (mg/dL) (75-99) mg/dL Total Protein 6.2 L (6.3-8.2) g/dL Albumin 2.7 L (3.5-5.0) g/dL Urine Appearance Cloudy H (Clear) Urine Protein 1+ H (Negative) Urine Blood Moderate H (Negative) Ur Leukocyte Esterase Large H (Negative) Urine RBC 118 H (0-5) /hpf Urine WBC >182 H (0-5) /hpf Amorphous Sediment Rare H (None) /hpf Urine Bacteria Many H (None) /hpf Hyaline Casts 56 H (0-2) /lpf Urine Mucus Occasional H (None) /hpf 02/16/20 02/17/20 02/17/20 Range/Units 20:32 07:31 08:28 RBC 3.22 L (3.80-5.40) m/uL Hgb 8.8 L (11.4-16.0) gm/dL Hct 29.3 L (34.0-46.0) % MCHC 30.1 L (31.0-37.0) g/dL RDW 17.9 H (11.5-15.5) % Lymphocytes # 0.6 L (1.0-4.8) k/uL Sodium (137-145) mmol/L BUN (7-17) mg/dL Creatinine (0.52-1.04) mg/dL Glucose (74-99) mg/dL POC Glucose (mg/dL) 111 H 103 H (75-99) mg/dL Total Protein (6.3-8.2) g/dL Albumin (3.5-5.0) g/dL Urine Appearance (Clear) Urine Protein (Negative) Urine Blood (Negative) Ur Leukocyte Esterase (Negative) Urine RBC (0-5) /hpf Urine WBC (0-5) /hpf Amorphous Sediment (None) /hpf Urine Bacteria (None) /hpf Hyaline Casts (0-2) /lpf Urine Mucus (None) /hpf 02/17/20 02/17/20 Range/Units 08:28 11:33 RBC (3.80-5.40) m/uL Hgb (11.4-16.0) gm/dL Hct (34.0-46.0) % MCHC (31.0-37.0) g/dL RDW (11.5-15.5) % Lymphocytes # (1.0-4.8) k/uL Sodium (137-145) mmol/L BUN 55 H (7-17) mg/dL Creatinine 2.77 H (0.52-1.04) mg/dL Glucose (74-99) mg/dL POC Glucose (mg/dL) 112 H (75-99) mg/dL Total Protein 6.2 L (6.3-8.2) g/dL Albumin 2.7 L (3.5-5.0) g/dL Urine Appearance (Clear) Urine Protein (Negative) Urine Blood (Negative) Ur Leukocyte Esterase (Negative) Urine RBC (0-5) /hpf Urine WBC (0-5) /hpf Amorphous Sediment (None) /hpf Urine Bacteria (None) /hpf Hyaline Casts (0-2) /lpf Urine Mucus (None) /hpf Microbiology - Last 24 Hours (Table) 02/16/20 15:11 Gram Stain - Preliminary Abdomen Wound Culture - Preliminary 02/16/20 18:00 Urine Culture - Preliminary Urine,Clean Catch
[2020-02-17] MEDS: HYDROcodone/APAP 10-325MG 1 EACH TAB PO PRN (13:49)
[2020-02-17 17:21] LABS: Glucose,Whole Blood 124 mg/dL (75-99)
[2020-02-17 20:22] LABS: Glucose,Whole Blood 159 mg/dL (75-99)
[2020-02-17] MEDS: HEPARIN SODIUM,PORCINE 5,000 UNIT/ML 1 ML VIAL SQ SCH (20:24)
[2020-02-17] MEDS: GABAPENTIN 300 MG CAP PO SCH (20:27)
--- NOTE | 2020-02-17 22:09 | P.CONS ---
History of Present Illness - Reason for Consult Consult date: 02/17/20 Medical management Requesting physician: Virgilio Seaman - Chief Complaint Redness at the incision site - History of Present Illness Consultation: This is a 70 year patient currently at [facility] / Dr. Han. Chronic stable medical conditions include CHF EF 55-60%, COPD, diabetes, fibromyalgia, hyperlipidemia, hypertension, chronic kidney disease stage III, rheumatoid art hritis, history of breast cancer with right sided mastectomy, peripheral neuropathy, chronic anxiety depression, liver cirrhosis with portal hypertension.uses a wheelchair to get about . Patient recently was in the hospital with GI bleed in a tagged RBC was positive and patient underwent the right colectomy on January [address] Seaman. Also repair of incisional hernia. Patient now presents with redness and tenderness around incision site. No drainage. Appetite is okay. Has had a bowel movement. Denies any fever and chills Review of systems: GEN.: Tired EYES: None HEENT: None NECK: None RESPIRATORY: None CARDIOVASCULAR: None GASTROINTESTINAL: As above GENITOURINARY: None MUSCULOSKELETAL: Joint pains LYMPHATICS: None HEMATOLOGICAL: None PSYCHIATRY: Anxious NEUROLOGICAL: Uses a wheelchair. Past medical history to include: CHF EF 55-60%, COPD, diabetes, fibromyalgia, hyperlipidemia, hypertension, chronic kidney disease stage III, rheumatoid arthritis, history of breast cancer with right sided mastectomy, peripheral neuropathy, chronic anxiety depression, liver cirrhosis with portal hypertension.uses a wheelchair to get about. Right hemicolectomy for GI bleed Social history: Lives at [facility] on the [address] Uses a wheelchair. Patient smoked from 1971 and stopped in December 2017. No alcohol. Physical examination: VITAL SIGNS: 97.7, 61, 16, 105/666, 94% room air GENERAL: BMI 48.3, laying in bed, tired EYES: Pupils equal. Conjunctiva palel. HEENT: External appearance of nose and ears normal, oral cavity grossly normal. NECK: JVD unable to assess; masses not palpable. HEART: First and second heart sounds are normal; mild edema. LUNGS: Respiratory rate increased; decreased breath sounds. ABDOMEN: Soft, mild redness around the incision site with some tenderness locally. liver spleen not palpable, no masses palpable. PSYCH: [Alert and oriented x3; mood and affect anxiety NEUROLOGICAL: Cranial nerves grossly intact; no facial asymmetry, LYMPHATICS: No lymph nodes palpable in the axilla and neck Investigations: White count 5.2 hemoglobin 8.5 platelets 134 potassium 4.9 bun 57 creatinine 2.71 Computed tomography scan of the abdomen-subcutaneous density at the incision site or the anterior abdominal. Few air bubbles. Previous testing: Creatinine 1.17 on January 31 and 1.8 on February 04 2.0 on February 09 Assessment: -Acute cellulitis at the abdominal wall incision site. -right colectomy, repair of incisional hernia, partial omentectomy. Recently for GI bleed -Chronic congestive heart failure from diastolic dysfunction EF 55-60% -COPD in an ex-smoker -Diabetes mellitus type 2 on oral hypoglycemic -Chronic fibromyalgia -Hyperlipidemia -Essential hypertension -Chronic kidney disease stage III from diabetic nephropathy and hypertensive nephrosclerosis -Rheumatoid arthritis -History of breast cancer with a right-sided mastectomy -Peripheral neuropathy secondary to diabetes -Chronic anxiety depression -Obesity -Liver cirrhosis with portal hypertension on Xifaxan -Pancytopenia from cirrhosis -Patient has a legal guardian-Calvin Whipple -Acute kidney injury-possibly prerenal. Creatinine increased from recent 1.8 up to 2.7 -Hyperkalemia Plan: Patient's condition IV daptomycin. Home medications be continued. Given the worsening renal function will cut back on the dose of Neurontin. Also temporally hold off the diuretics. Gentle hydration. Follow BMP discussed with the patient. Thank you Dr. Seaman Past Medical History Past Medical History: Cancer, Heart Failure, COPD, Diabetes Mellitus, Fibromyalgia, Hyperlipidemia, Hypertension, Renal Disease, Rheumatoid Arthritis (RA), Seizure Disorder, Supraventricular Tachycardia (SVT) Additional Past Medical History / Comment(s): Breast cancer right-sided post mastectomy followed by chemotherapy, is independent diabetes mellitus type 2, peripheral neuropathy related to diabetes, COPD, liver cirrhosis, hypertension, hyperlipidemia, fibromyalgia, chronic kidney disease, rheumatoid arthritis, seizure disorder, history of SVT, diabetic peripheral neuropathy, chronic anxiety and depression, morbid obesity with a BMI of 58.5, previous history of GI bleed, diverticular disease, history of hepatic encephalopathy History of Any Multi-Drug Resistant Organisms: VRE Year Discovered:: 05/11/18 MDRO Source:: VRE URINE Past Surgical History: Adenoidectomy, Appendectomy, Breast Surgery, Cholecystectomy, Hysterectomy, Orthopedic Surgery, Tonsillectomy, Tubal Ligation Additional Past Surgical History / Comment(s): masectomy right, ganglion cyst right hand, total hysterectomy (hx of tubal pregnancies), lower teeth extracted. Past Anesthesia/Blood Transfusion Reactions: No Reported Reaction Past Psychological History: Anxiety, Depression Additional Psychological History / Comment(s): Pt currently is at [facility] for rehab. She needs assist with ADLS except feeds self. She states up until just lately she was getting up with a walker some. No experience. Did not work outside of the home. . No alcohol use Smoking Status: Former smoker Past Alcohol Use History: None Reported Additional Past Alcohol Use History / Comment(s): Pt started smoking in 1971 and qut in December 2017. Per patient she smoked 1-2 cigarettes a day after meals. Past Drug Use History: None Reported - Past Family History Father Family Medical History: Cancer, CVA/TIA Additional Family Medical History / Comment(s): 2000 from lung cancer Mother Family Medical History: Cancer, Dementia Additional Family Medical History / Comment(s): 2014 at age 86. Oral & Breast cancer Brother(s) Family Medical History: Asthma, Diabetes Mellitus, Fibromyalgia, Osteoarthritis (OA) Additional Family Medical History / Comment(s): Obesity. Joint replacements Medications and Allergies Home Medications Medication Instructions Recorded Confirmed Type Anastrozole [Arimidex] 1 mg PO DAILY@0900 09/30/14 02/16/20 History Sennosides [Senna] 8.6 mg PO BID@0600,209904/02/18 02/16/20 History Pantoprazole [Protonix] 40 mg PO DAILY@0607/02/18 02/16/20 History Ferrous Sulfate [Iron (65 MG 325 mg PO DAILY@0900 08/16/18 02/16/20 History Elemental)] Acetaminophen [Tylenol] 650 mg PO Q4H PRN 08/24/19 02/16/20 History Dextran 70/Hypromellose [Genteal 1 drop BOTH EYES Q12H PRN 08/24/19 02/16/20 History Tears 0.1%-0.3% Drop] Folic Acid 1 mg PO DAILY@0600 08/24/19 02/16/20 History Lactulose 20 gm PO BID@0900,2100 08/24/19 02/16/20 History Multivitamins, Thera [Multivitamin 1 tab PO DAILY@1200 08/24/19 02/16/20 History (formulary)] Rifaximin [Xifaxan] 550 mg PO BID@0600,209908/24/19 02/16/20 History Thiamine [Vitamin B-1] 100 mg PO DAILY@0600 08/24/19 02/16/20 History Melatonin 10 mg PO HS PRN 10/25/19 02/16/20 History Oxymetazoline 0.05% Nasl [place] 1 spray NASAL Q15M PRN MDD 3 DOSES 10/25/19 02/16/20 History [Afrin 0.05% Nasal [place]] Gabapentin [Neurontin] 200 mg PO TID@0900,1500,2099 #9 cap 12/26/19 02/16/20 Rx HYDROcodone/APAP 10-325MG [[place] 1 tab PO Q6HR PRN 3 Days #12 tab 12/26/19 Rx 10-325] Ascorbic Acid [Vitamin C] 500 mg PO DAILY@0600 01/19/20 02/16/20 History Sertraline HCl [Zoloft] 25 mg PO DAILY@0900 01/19/20 02/16/20 History Spironolactone [Aldactone] 50 mg PO DAILY@0601/19/20 02/16/20 History metOLazone [Zaroxolyn] 5 mg PO DAILY@0900 01/19/20 02/16/20 History INSULIN LISPRO (humaLOG) [humaLOG] 4 units SQ AC-TID 02/05/20 02/16/20 History Metoprolol Tartrate [Lopressor] 12.5 mg PO BID@0900,209902/05/20 02/16/20 History Midodrine [ProAmatine] 10 mg PO AC-TID #90 tab 02/11/20 02/16/20 Rx Sodium Bicarbonate Tab 650 mg PO QID tab 02/11/20 02/16/20 Rx Darbepoetin Gurwinder [Aranesp] 40 mcg SQ SA 02/16/20 02/16/20 History Furosemide [Lasix] 40 mg PO DAILY@0600 02/16/20 02/16/20 History Zinc 50 mg PO DAILY@59902/16/20 02/16/20 History oxyCODONE HCL [OxyCONTIN] 10 mg PO BID@0900,2100 02/16/20 02/16/20 History Allergies Allergy/AdvReac Type Severity Reaction Status Date / Time cephalexin [From Keflex] Allergy Unknown Verified 02/16/20 14:56 duloxetine [From Cymbalta] Allergy Unknown Verified 02/16/20 14:56 Penicillins Allergy Rash/Hives Verified 02/16/20 14:56 phenobarbital Allergy Unknown Verified 02/16/20 14:56 phenytoin sodium Allergy Unknown Verified 02/16/20 14:56 [From Dilantin] phenytoin sodium extended Allergy Unknown Verified 02/16/20 14:56 [From Dilantin] primidone [From Mysoline] Allergy Unknown Verified 02/16/20 14:56 codeine AdvReac Nausea & Verified 02/16/20 14:56 Vomiting Physical Exam Vitals: Vital Signs Temp Pulse Pulse Resp BP BP Pulse Ox 02/17/20 08:00 97.7 F 61 16 105/66 94 L 02/17/20 01:34 98.4 F 98 15 99/65 98 02/16/20 19:11 97.9 F 58 L 19 113/74 97 02/16/20 17:15 98.3 F 58 L 107/54 96 02/16/20 16:00 99 F 69 20 115/73 96 02/16/20 15:40 54 L 20 115/73 97 02/16/20 15:00 76 20 92/46 95 02/16/20 14:00 78 20 98/50 95 02/16/20 13:27 98.4 F 54 L 20 92/46 94 L Intake and Output 02/16/20 02/17/20 02/17/20 22:59 06:59 14:59 Output Total 500 Balance -500 Output: Urine 500 Other: Voiding Method Indwelling Catheter Indwelling Catheter # Bowel Movements 2 Weight 131.542 kg Results CBC & Chem 7: 02/17/20 08:28 02/17/20 08:28 Labs: Abnormal Lab Results - Last 24 Hours (Table) 02/16/20 02/16/20 02/16/20 Range/Units 14:10 14:10 18:00 RBC 3.16 L (3.80-5.40) m/uL Hgb 8.5 L (11.4-16.0) gm/dL Hct 27.9 L (34.0-46.0) % MCHC 30.6 L (31.0-37.0) g/dL RDW 18.1 H (11.5-15.5) % Lymphocytes # 0.7 L (1.0-4.8) k/uL Sodium 136 L (137-145) mmol/L BUN 57 H (7-17) mg/dL Creatinine 2.71 H (0.52-1.04) mg/dL Glucose 114 H (74-99) mg/dL POC Glucose (mg/dL) (75-99) mg/dL Total Protein 6.2 L (6.3-8.2) g/dL Albumin 2.7 L (3.5-5.0) g/dL Urine Appearance Cloudy H (Clear) Urine Protein 1+ H (Negative) Urine Blood Moderate H (Negative) Ur Leukocyte Esterase Large H (Negative) Urine RBC 118 H (0-5) /hpf Urine WBC >182 H (0-5) /hpf Amorphous Sediment Rare H (None) /hpf Urine Bacteria Many H (None) /hpf Hyaline Casts 56 H (0-2) /lpf Urine Mucus Occasional H (None) /hpf 02/16/20 02/17/20 02/17/20 Range/Units 20:32 07:31 08:28 RBC 3.22 L (3.80-5.40) m/uL Hgb 8.8 L (11.4-16.0) gm/dL Hct 29.3 L (34.0-46.0) % MCHC 30.1 L (31.0-37.0) g/dL RDW 17.9 H (11.5-15.5) % Lymphocytes # 0.6 L (1.0-4.8) k/uL Sodium (137-145) mmol/L BUN (7-17) mg/dL Creatinine (0.52-1.04) mg/dL Glucose (74-99) mg/dL POC Glucose (mg/dL) 111 H 103 H (75-99) mg/dL Total Protein (6.3-8.2) g/dL Albumin (3.5-5.0) g/dL Urine Appearance (Clear) Urine Protein (Negative) Urine Blood (Negative) Ur Leukocyte Esterase (Negative) Urine RBC (0-5) /hpf Urine WBC (0-5) /hpf Amorphous Sediment (None) /hpf Urine Bacteria (None) /hpf Hyaline Casts (0-2) /lpf Urine Mucus (None) /hpf 02/17/20 Range/Units 08:28 RBC (3.80-5.40) m/uL Hgb (11.4-16.0) gm/dL Hct (34.0-46.0) % MCHC (31.0-37.0) g/dL RDW (11.5-15.5) % Lymphocytes # (1.0-4.8) k/uL Sodium (137-145) mmol/L BUN 55 H (7-17) mg/dL Creatinine 2.77 H (0.52-1.04) mg/dL Glucose (74-99) mg/dL POC Glucose (mg/dL) (75-99) mg/dL Total Protein 6.2 L (6.3-8.2) g/dL Albumin 2.7 L (3.5-5.0) g/dL Urine Appearance (Clear) Urine Protein (Negative) Urine Blood (Negative) Ur Leukocyte Esterase (Negative) Urine RBC (0-5) /hpf Urine WBC (0-5) /hpf Amorphous Sediment (None) /hpf Urine Bacteria (None) /hpf Hyaline Casts (0-2) /lpf Urine Mucus (None) /hpf Microbiology - Last 24 Hours (Table) 02/16/20 15:11 Gram Stain - Preliminary Abdomen Wound Culture - Preliminary 02/16/20 18:00 Urine Culture - Preliminary Urine,Clean Catch
[2020-02-17] MEDS: SODIUM CHLORIDE 0.9% 1,000 ML IV SCH (22:21)
[2020-02-18] MEDS: SODIUM CHLORIDE 0.9% 1,000 ML IV SCH (03:00)
[2020-02-18] MEDS: HYDROcodone/APAP 10-325MG 1 EACH TAB PO PRN ×3 (03:04→17:41)
[2020-02-18] MEDS: ASCORBIC ACID 500 MG TAB PO SCH (05:48)
[2020-02-18] MEDS: PANTOPRAZOLE 40 MG TABLET PO SCH (05:49)
[2020-02-18] MEDS: SENNOSIDES 8.6 MG TAB PO SCH ×2 (05:49→20:39)
[2020-02-18] MEDS: ZINC SULFATE 220 MG CAP PO SCH (05:49)
[2020-02-18] MEDS: RIFAXIMIN 550 MG TABLET PO SCH ×2 (05:49→20:58)
[2020-02-18] MEDS: FOLIC ACID 1 MG TAB PO SCH (05:49)
[2020-02-18] MEDS: THIAMINE 100 MG TAB PO SCH (05:49)
[2020-02-18 06:56] LABS: Glucose,Whole Blood 117 mg/dL (75-99)
[2020-02-18] MEDS: INSULIN ASPART (NovoLOG) 100 UNIT/ML VIAL SQ SCH ×7 (07:02→20:39)
[2020-02-18 07:17] LABS: Anisocytosis Slight; Basophils % (A) 1 %; Eosinophils # (A) 0.2 k/uL (0-0.7); Eosinophils % (A) 4 %; HCT 27.7 % (34.0-46.0); HGB 8.2 gm/dL (11.4-16.0); Hypochromasia Marked; Lymphocytes # (A) 0.7 k/uL (1.0-4.8); Lymphocytes % (A) 15 %; MCH 27.5 pg (25.0-35.0); MCHC 29.7 g/dL (31.0-37.0); MCV 92.5 fL (80.0-100.0); Mean Platelet Volume 7.4; Monocytes # (A) 0.3 k/uL (0-1.0); Monocytes % (A) 8 %; Neutrophils % (A) 68 %; Platelet Count 156 k/uL (150-450); RBC 2.99 m/uL (3.80-5.40); RDW 17.7 % (11.5-15.5); WBC 4.4 k/uL (3.8-10.6)
[2020-02-18] MEDS: HEPARIN SODIUM,PORCINE 5,000 UNIT/ML 1 ML VIAL SQ SCH ×2 (07:41→20:37)
[2020-02-18] MEDS: oxyCODONE ER 10 MG TAB.ER.12H PO SCH ×2 (07:42→20:45)
[2020-02-18] MEDS: MULTIVITAMINS, THERA 1 EACH TAB PO SCH (07:42)
[2020-02-18] MEDS: MIDODRINE 5 MG TAB PO SCH ×3 (07:42→17:35)
[2020-02-18] MEDS: SODIUM BICARBONATE TAB 650 MG TAB PO SCH ×4 (07:43→20:59)
[2020-02-18] MEDS: FERROUS SULFATE 325 MG TAB PO SCH (07:43)
[2020-02-18] MEDS: SERTRALINE 25 MG TAB PO SCH (07:43)
[2020-02-18] MEDS: ANASTROZOLE 1 MG TAB PO SCH (07:43)
[2020-02-18] MEDS: LACTULOSE 20 GM/30 ML CUP PO SCH ×2 (07:43→20:37)
[2020-02-18] MEDS: METOPROLOL TARTRATE 12.5 MG TAB PO SCH ×2 (08:51→20:58)
--- NOTE | 2020-02-18 10:58 | P.PN ---
Subjective Progress Note Date: 02/18/20 CHIEF COMPLAINT: Infection incision site HISTORY OF PRESENT ILLNESS: Patient is being followed for possible infected seroma at incision site. She is been seen by infectious disease they have changed antibiotics to daptomycin. Patient did receive a soapsuds enema yesterday and did have a a large bowel movement. BP 95/58 heart rate 59 nursing staff did hold the metoprolol. Patient afebrile. WBC 4.4 PHYSICAL EXAM: VITAL SIGNS: Reviewed. GENERAL: Well-developed in no acute distress. HEENT: No sclera icterus. Extraocular movements grossly intact. Moist buccal mucosa. Head is atraumatic, normocephalic. ABDOMEN: Soft. Nondistended. Obese. Incision site mild erythema. Middle of incision near the umbilicus there is yellowish drainage noted NEUROLOGIC: Alert and oriented. Cranial nerves II through XII grossly intact. ASSESSMENT: 1. Infected Seroma 2. Rectal fecal impaction improved 3. Status post right colectomy for GI bleed and angiodysplasia on 01/27/2020 PLAN: -Continue conservative management -No surgical intervention planned -Antibiotics per ID -Follow up on culture results -GI prophylaxis Protonix and DVT prophylaxis subcu heparin Physician Speech Therapy Teacher note has been reviewed by physician. Signing provider agrees with the documented findings, assessment, and plan of care. Objective - Vital Signs Vital signs: Vital Signs Temp 98.2 F 02/18/20 07:42 Pulse 59 L 02/18/20 07:42 Resp 18 02/18/20 07:42 BP 95/58 02/18/20 07:42 Pulse Ox 93 L 02/18/20 07:42 Intake & Output 02/17/20 02/18/20 02/18/20 18:59 06:59 18:59 Intake Total 300 Output Total 375 577 Balance -375 -277 Intake: Oral 300 Output: Urine 375 576 Emesis 1 Other: Voiding Method Indwelling Catheter Indwelling Catheter Indwelling Catheter # Bowel Movements 1 - Labs CBC & Chem 7: 02/18/20 06:44 02/17/20 08:28 Labs: Abnormal Lab Results - Last 24 Hours (Table) 02/17/20 02/17/20 02/17/20 Range/Units 11:33 17:15 20:08 RBC (3.80-5.40) m/uL Hgb (11.4-16.0) gm/dL Hct (34.0-46.0) % MCHC (31.0-37.0) g/dL RDW (11.5-15.5) % Lymphocytes # (1.0-4.8) k/uL POC Glucose (mg/dL) 112 H 124 H 159 H (75-99) mg/dL 02/18/20 02/18/20 Range/Units 06:44 06:54 RBC 2.99 L (3.80-5.40) m/uL Hgb 8.2 L (11.4-16.0) gm/dL Hct 27.7 L (34.0-46.0) % MCHC 29.7 L (31.0-37.0) g/dL RDW 17.7 H (11.5-15.5) % Lymphocytes # 0.7 L (1.0-4.8) k/uL POC Glucose (mg/dL) 117 H (75-99) mg/dL Microbiology - Last 24 Hours (Table) 02/16/20 18:00 Urine Culture - Final Urine,Clean Catch 02/16/20 14:07 Blood Culture - Preliminary Blood No Growth after 24 hours 02/16/20 14:09 Blood Culture - Preliminary Blood No Growth after 24 hours
[2020-02-18 12:06] LABS: Glucose,Whole Blood 134 mg/dL (75-99)
[2020-02-18 12:52] LABS: African American GFR (CKD) 17.8 (60.0-200.0); Anion Gap 8.4 mmol/L (4.00-12.00); BUN/Creat Ratio 19.67 Ratio (12.00-20.00); Calcium 8.2 mg/dL (8.7-10.3); Carbon Dioxide 23.6 mmol/L (21.6-31.8); Non-African American GFR(CKD) 15.3 (60.0-200.0); Potassium 4.6 mmol/L (3.5-5.5)
--- NOTE | 2020-02-18 15:39 | PN ---
PROGRESS NOTE DATE OF SERVICE: 02/18/2020 REASON FOR FOLLOWUP: Abdominal wound infection and cellulitis. INTERVAL HISTORY: The patient is currently afebrile. The patient is breathing comfortably. Patient denies having any chest pain. No shortness of breath. No cough. There was some abdominal pain though better. No nausea, no vomiting. No diarrhea. PHYSICAL EXAMINATION: Blood pressure 95/58 with a pulse of 59, temperature of 98.2. She is 93% on room air. General description is an elderly female lying in bed in no distress. RESPIRATORY SYSTEM: Unlabored breathing, clear to auscultation anteriorly. HEART: S1, S2. Regular rate and rhythm. ABDOMEN: Soft. Minimal redness around the incision and drainage. LABS: Hemoglobin 8.2, white count 4.4. BUN of 59, creatinine 3.0. CT was reviewed with radiologist did show evidence of inflammation, but no drainable abscess. DIAGNOSTIC IMPRESSION AND PLAN: Patient with abdominal wall cellulitis with recent culture positive for Staph epi. The patient on daptomycin because of her kidney function. She was also anaerobic gram- negative. We will add oral Flagyl. Continue with daptomycin and Flagyl for 2 weeks for which Midline will be placed. Continue supportive care. MMODL / IJN: [id number] /
[2020-02-18] MEDS: metroNIDAZOLE 500 MG TAB PO SCH ×2 (17:06→20:39)
[2020-02-18 17:36] LABS: Glucose,Whole Blood 165 mg/dL (75-99)
[2020-02-18 20:20] LABS: Glucose,Whole Blood 164 mg/dL (75-99)
[2020-02-18] MEDS: GABAPENTIN 300 MG CAP PO SCH (20:43)
--- NOTE | 2020-02-18 23:11 | P.PN ---
Progress Note - Text Progress Note Date: 02/18/20 - Chief Complaint Redness at the incision site Consultation: This is a 70 year patient currently at [facility] / Dr. Han. Chronic stable medical conditions include CHF EF 55-60%, COPD, diabetes, fibromyalgia, hyperlipidemia, hypertension, chronic kidney disease stage III, rheumatoid arthritis, history of breast cancer with right sided mastectomy, peripheral neuropathy, chronic anxiety depression, liver cirrhosis with portal hypertension.uses a wheelchair to get about . Patient recently was in the hospital with GI bleed in a tagged RBC was positive and patient underwent the right colectomy on January [address] Seaman. Also repair of incisional hernia. Patient now presents with redness and tenderness around incision site. No drainage. Appetite is okay. Has had a bowel movement. Denies any fever and chills. Also found an acute kidney injury. Diuretics held. Gentle hydration. Today-laying in bed. Comfortable. Oral intake fair. Getting gentle hydration Review of systems: Was done for constitutional, cardiovascular, GI, pulmonary. relevant finding as above Active Medications Hydrocodone Bitart/Acetaminophen (Hydrocodone/Apap 10-325mg 1 Each Tab) 1 each PO Q6HR PRN PRN Reason: Pain Last Admin: 02/18/20 17:41 Dose: 1 each Documented by: Anastrozole (Anastrozole 1 Mg Tab) 1 mg PO DAILY@09 [facility] Last Admin: 02/18/20 07:43 Dose: 1 mg Documented by: Artificial Tears (Artificial Tears-Hypromellose Drops 15 Ml Btl) 1 drops BOTH EYES Q12H PRN PRN Reason: Dry Eye(S)/redness Ascorbic Acid (Ascorbic Acid 500 Mg Tab) 500 mg PO DAILY@06 [facility] Last Admin: 02/18/20 05:48 Dose: 500 mg Documented by: Darbepoetin Gurwinder (Darbepoetin Gurwinder 40 Mcg/0.4 Ml Syringe) 40 mcg SQ [facility] Ferrous Sulfate (Ferrous Sulfate 325 Mg Tab) 325 mg PO DAILY@09 [facility] Last Admin: 02/18/20 07:43 Dose: 325 mg Documented by: Folic Acid (Folic Acid 1 Mg Tab) 1 mg PO DAILY@0600 [facility] Last Admin: 02/18/20 05:49 Dose: 1 mg Documented by: Gabapentin (Gabapentin 300 Mg Cap) 300 mg PO [facility] Last Admin: 02/18/20 20:43 Dose: 300 mg Documented by: Heparin Sodium (Porcine) (Heparin Sodium,Porcine 5,000 Unit/Ml 1 Ml Vial) 5,000 unit SQ Q12HR [facility] Last Admin: 02/18/20 20:37 Dose: 5,000 unit Documented by: Daptomycin 500 mg/ Sodium (Chloride) 50 mls @ 100 mls/hr IVPB Q48H [facility]; Protocol Last Admin: 02/17/20 12:16 Dose: 100 mls/hr Documented by: Sodium Chloride (Saline 0.9%) 1,000 mls @ 75 mls/hr IV .[id number] [facility] Last Admin: 02/18/20 03:00 Dose: 75 mls/hr Documented by: Insulin Aspart (Insulin Aspart (Novolog) 100 Unit/Ml Vial) 4 unit SQ AC-TID [facility] Last Admin: 02/18/20 17:38 Dose: 4 unit Documented by: Insulin Aspart (Insulin Aspart (Novolog) 100 Unit/Ml Vial) 0 unit SQ ACHS [facility]; Protocol Last Admin: 02/18/20 20:39 Dose: 2 unit Documented by: Lactulose (Lactulose 20 Gm/30 Ml Cup) 20 gm PO BID@0900,2100 [facility] Last Admin: 02/18/20 20:37 Dose: Not Given Documented by: Melatonin (Melatonin 5 Mg Tablet) 10 mg PO HS PRN PRN Reason: Insomnia Metoprolol Tartrate (Metoprolol Tartrate 12.5 Mg Tab) 12.5 mg PO BID@0900,2100 [facility] Last Admin: 02/18/20 20:58 Dose: 12.5 mg Documented by: Metronidazole (Metronidazole 500 Mg Tab) 500 mg PO TID [facility] Last Admin: 02/18/20 20:39 Dose: 500 mg Documented by: Midodrine (Midodrine 5 Mg Tab) 10 mg PO AC-TID [facility] Last Admin: 02/18/20 17:35 Dose: 10 mg Documented by: Multivitamins (Multivitamins, Thera 1 Each Tab) 1 each PO DAILY@1200 [facility] Last Admin: 02/18/20 07:42 Dose: 1 each Documented by: Naloxone HCl (Naloxone 0.4 Mg/Ml 1 Ml Vial) 0.2 mg IV Q2M PRN PRN Reason: Opioid Reversal Oxycodone HCl (Oxycodone Er 10 Mg Tab.Er.12h) 10 mg PO BID@0900,2099 [facility] Last Admin: 02/18/20 20:45 Dose: 10 mg Documented by: Oxymetazoline HCl (Oxymetazoline 0.05% Nasl [place] 1 [place] Bottle) 1 spray NASAL Q15M PRN PRN Reason: BLOODY NOSE Pantoprazole Sodium (Pantoprazole 40 Mg Tablet) 40 mg PO DAILY@06 [facility] Last Admin: 02/18/20 05:49 Dose: 40 mg Documented by: Rifaximin (Rifaximin 550 Mg Tablet) 550 mg PO BID@ [facility] Stop: 03/17/20 21:01 Last Admin: 02/18/20 20:58 Dose: 550 mg Documented by: Senna (Sennosides 8.6 Mg Tab) 8.6 mg PO BID@ [facility] Last Admin: 02/18/20 20:39 Dose: 8.6 mg Documented by: Sertraline HCl (Sertraline 25 Mg Tab) 25 mg PO DAILY@09 [facility] Last Admin: 02/18/20 07:43 Dose: 25 mg Documented by: Sodium Bicarbonate (Sodium Bicarbonate Tab 650 Mg Tab) 650 mg PO QID [facility] Last Admin: 02/18/20 20:59 Dose: 650 mg Documented by: Thiamine HCl (Thiamine 100 Mg Tab) 100 mg PO DAILY@599 [facility] Last Admin: 02/18/20 05:49 Dose: 100 mg Documented by: Zinc Sulfate (Zinc Sulfate 220 Mg Cap) 220 mg PO DAILY@06 [facility] Last Admin: 02/18/20 05:49 Dose: 220 mg Documented by: Physical examination: VITAL SIGNS: 97.9, 62, 15, 106/69, 94% room air GENERAL: BMI 48.3, laying in bed, tired EYES: Pupils equal. Conjunctiva palel. HEENT: External appearance of nose and ears normal, oral cavity grossly normal. NECK: JVD unable to assess; masses not palpable. HEART: First and second heart sounds are normal; mild edema. LUNGS: Respiratory rate increased; decreased breath sounds. ABDOMEN: Soft, mild redness around the incision site with some tenderness locally. liver spleen not palpable, no masses palpable. PSYCH: [Alert and oriented x3; mood and affect anxiety Investigations: February 17: White count 4.4 hemoglobin 8.2 platelets 156 potassium 4.6 bun 59 creatinine 3.0 White count 5.2 hemoglobin 8.5 platelets 134 potassium 4.9 bun 57 creatinine 2.71 Computed tomography scan of the abdomen-subcutaneous density at the incision site or the anterior abdominal. Few air bubbles. Previous testing: Creatinine 1.17 on January 31 and 1.8 on February 04 2.0 on February 09 Assessment: -Acute cellulitis at the abdominal wall incision site. -right colectomy, repair of incisional hernia, partial omentectomy. Recently for GI bleed -Chronic congestive heart failure from diastolic dysfunction EF 55-60% -COPD in an ex-smoker -Diabetes mellitus type 2 on oral hypoglycemic -Chronic fibromyalgia -Hyperlipidemia -Essential hypertension -Chronic kidney disease stage III from diabetic nephropathy and hypertensive nephrosclerosis -Rheumatoid arthritis -History of breast cancer with a right-sided mastectomy -Peripheral neuropathy secondary to diabetes -Chronic anxiety depression -Obesity -Liver cirrhosis with portal hypertension on Xifaxan -Pancytopenia from cirrhosis -Patient has a legal guardian-Calvin Whipple -Acute kidney injury-possibly prerenal. Creatinine increased from recent 1.8 up to 2.7. Today 3.0. Worsening -Hyperkalemia Plan: Continue with hydration. Repeat labs in the morning. Discussed with RESTORATIVE AIDE from general surgery. Antiemetics per Dr. Pastrana. Thank you Dr. Seaman
[2020-02-19] MEDS: SODIUM CHLORIDE 0.9% 1,000 ML IV SCH ×2 (02:13→14:45)
[2020-02-19] MEDS: ASCORBIC ACID 500 MG TAB PO SCH (05:56)
[2020-02-19] MEDS: PANTOPRAZOLE 40 MG TABLET PO SCH (05:56)
[2020-02-19] MEDS: THIAMINE 100 MG TAB PO SCH (05:57)
[2020-02-19] MEDS: SENNOSIDES 8.6 MG TAB PO SCH (05:57)
[2020-02-19] MEDS: FOLIC ACID 1 MG TAB PO SCH (05:57)
[2020-02-19 06:50] LABS: Anisocytosis Slight; Basophils % (A) 1 %; Eosinophils # (A) 0.2 k/uL (0-0.7); Eosinophils % (A) 5 %; HCT 27.1 % (34.0-46.0); HGB 8.4 gm/dL (11.4-16.0); Hypochromasia Marked; Lymphocytes # (A) 0.6 k/uL (1.0-4.8); Lymphocytes % (A) 16 %; MCH 28.2 pg (25.0-35.0); MCHC 31.1 g/dL (31.0-37.0); MCV 90.9 fL (80.0-100.0); Mean Platelet Volume 7.5; Monocytes # (A) 0.2 k/uL (0-1.0); Monocytes % (A) 6 %; Neutrophils # (A) 2.6 k/uL (1.3-7.7); Neutrophils % (A) 70 %; Platelet Count 149 k/uL (150-450); RBC 2.99 m/uL (3.80-5.40); WBC 3.7 k/uL (3.8-10.6)
[2020-02-19] MEDS: ZINC SULFATE 220 MG CAP PO SCH (07:01)
[2020-02-19] MEDS: RIFAXIMIN 550 MG TABLET PO SCH (07:01)
[2020-02-19] MEDS: HYDROcodone/APAP 10-325MG 1 EACH TAB PO PRN ×2 (07:05→16:11)
[2020-02-19 07:57] LABS: Glucose,Whole Blood 129 mg/dL (75-99)
[2020-02-19 08:27] VITALS: RESP 18
[2020-02-19] MEDS: INSULIN ASPART (NovoLOG) 100 UNIT/ML VIAL SQ SCH ×4 (08:34→12:57)
[2020-02-19] MEDS: MIDODRINE 5 MG TAB PO SCH ×2 (08:40→14:44)
[2020-02-19] MEDS: oxyCODONE ER 10 MG TAB.ER.12H PO SCH (08:40)
[2020-02-19] MEDS: SODIUM BICARBONATE TAB 650 MG TAB PO SCH ×2 (08:44→14:45)
[2020-02-19] MEDS: ANASTROZOLE 1 MG TAB PO SCH (10:34)
[2020-02-19] MEDS: FERROUS SULFATE 325 MG TAB PO SCH (10:34)
[2020-02-19] MEDS: HEPARIN SODIUM,PORCINE 5,000 UNIT/ML 1 ML VIAL SQ SCH (10:34)
[2020-02-19] MEDS: LACTULOSE 20 GM/30 ML CUP PO SCH (10:35)
[2020-02-19 11:11] LABS: Anion Gap 11.8 mmol/L (4.00-12.00); Calcium 8.1 mg/dL (8.7-10.3); Carbon Dioxide 19.2 mmol/L (21.6-31.8); Potassium 4.4 mmol/L (3.5-5.5)
[2020-02-19 11:30] LABS: African American GFR (CKD) 20.2 (60.0-200.0); BUN/Creat Ratio 21.85 Ratio (12.00-20.00); Non-African American GFR(CKD) 17.4 (60.0-200.0)
[2020-02-19] MEDS: METOPROLOL TARTRATE 12.5 MG TAB PO SCH (11:58)
[2020-02-19] MEDS: metroNIDAZOLE 500 MG TAB PO SCH (11:58)
[2020-02-19] MEDS: SERTRALINE 25 MG TAB PO SCH (11:58)
[2020-02-19 12:04] LABS: Glucose,Whole Blood 124 mg/dL (75-99)
[2020-02-19] MEDS: MULTIVITAMINS, THERA 1 EACH TAB PO SCH (12:55)
[2020-02-19] MEDS: DAPTOmycin 500 MG in SODIUM CHLORIDE 0.9% 50 ML IVPB SCH (12:55)
--- NOTE | 2020-02-19 14:49 | P.DS ---
Providers Date of admission: 02/16/20 16:01 Expected date of discharge: 02/19/20 Attending physician: Virgilio Seaman Consults: 02/16/20 17:23 Consult Physician Routine Consulting Provider: Guy Griffith Consult Reason/Comments: medical management Do you want consulting provider notified?: Yes 02/17/20 11:36 Consult Physician Routine Consulting Provider: Tania Boyd Consult Reason/Comments: Infected seroma Do you want consulting provider notified?: Yes Primary care physician: Tom Han Hospital Course: Discharge diagnosis 1. Infected Seroma 2. Rectal fecal impaction improved 3. Status post right colectomy for GI bleed and angiodysplasia on 01/27/2020 4. Acute on chronic kidney disease stage III Hospital course This is a 70-year-old female who presented to the emergency room with complaints of increased redness and drainage from her incision site. She had computed tomography scan of the abdomen and pelvis showing the subcutaneous density at incision site over the anterior abdomen increased compared to old exam. There are a few air bubbles. Infection is possible. Splenomegaly. Mild abdominal ascites unchanged. There is improvement in the left pleural effusion compared to old exam. Rectal fecal impaction increased compared to old exam. Patient has been admitted to the hospital started on IV antibiotics. Her wound culture preliminary so results grew quite is negative staph. Patient will be discharged back to [facility]. She will continue 2 more weeks of daptomycin and Flagyl per infectious disease recommendations. Patient's creatinine at discharge is at 2.7 medicine is adjusting her diuretics. She is stable for discharge. Please refer to chart for any further details. Physician Bricklayer Sewer note has been reviewed by physician. Signing provider agrees with the documented findings, assessment, and plan of care. Patient Condition at Discharge: Stable Plan - Discharge Summary New Discharge Prescriptions: New DAPTOmycin [Cubicin] 500 mg IV Q48H #7 bag metroNIDAZOLE [Flagyl] 500 mg PO TID #42 tab Continue Anastrozole [Arimidex] 1 mg PO DAILY@0900 Sennosides [Senna] 8.6 mg PO BID@0600,2100 Pantoprazole [Protonix] 40 mg PO DAILY@0600 Ferrous Sulfate [Iron (65 MG Elemental)] 325 mg PO DAILY@0900 Acetaminophen [Tylenol] 650 mg PO Q4H PRN PRN Reason: Fever And/ Or Pain Dextran 70/Hypromellose [Genteal Tears 0.1%-0.3% Drop] 1 drop BOTH EYES Q12H PRN PRN Reason: Dry Eye(S)/redness Rifaximin [Xifaxan] 550 mg PO BID@0600,2100 Lactulose 20 gm PO BID@0900,2100 Thiamine [Vitamin B-1] 100 mg PO DAILY@0600 Multivitamins, Thera [Multivitamin (formulary)] 1 tab PO DAILY@1200 Folic Acid 1 mg PO DAILY@0600 Melatonin 10 mg PO HS PRN PRN Reason: Insomnia Oxymetazoline 0.05% Nasl [place] [Afrin 0.05% Nasal [place]] 1 spray NASAL Q15M PRN MDD 3 DOSES PRN Reason: BLOODY NOSE Ascorbic Acid [Vitamin C] 500 mg PO DAILY@0600 Sertraline HCl [Zoloft] 25 mg PO DAILY@0900 Metoprolol Tartrate [Lopressor] 12.5 mg PO BID@0900,2100 Midodrine [ProAmatine] 10 mg PO AC-TID #90 tab Sodium Bicarbonate Tab 650 mg PO QID tab Darbepoetin Gurwinder [Aranesp] 40 mcg SQ SA Zinc 50 mg PO DAILY@0600 No Action Gabapentin [Neurontin] 200 mg PO TID@0900,1500,2100 #9 cap HYDROcodone/APAP 10-325MG [[place] 10-325] 1 tab PO Q6HR PRN 3 Days #12 tab PRN Reason: Pain metOLazone [Zaroxolyn] 5 mg PO DAILY@0900 Spironolactone [Aldactone] 50 mg PO DAILY@0600 INSULIN LISPRO (humaLOG) [humaLOG] 4 units SQ AC-TID Furosemide [Lasix] 40 mg PO DAILY@0600 oxyCODONE HCL [OxyCONTIN] 10 mg PO BID@0900,2099 Discharge Medication List Anastrozole [Arimidex] 1 mg PO DAILY@0900 09/30/14 [History] Sennosides [Senna] 8.6 mg PO BID@0600,2100 04/02/18 [History] Pantoprazole [Protonix] 40 mg PO DAILY@0600 07/02/18 [History] Ferrous Sulfate [Iron (65 MG Elemental)] 325 mg PO DAILY@0900 08/16/18 [History] Acetaminophen [Tylenol] 650 mg PO Q4H PRN 08/24/19 [History] Dextran 70/Hypromellose [Genteal Tears 0.1%-0.3% Drop] 1 drop BOTH EYES Q12H PRN 08/24/19 [History] Folic Acid 1 mg PO DAILY@0608/24/19 [History] Lactulose 20 gm PO BID@09,209908/24/19 [History] Multivitamins, Thera [Multivitamin (formulary)] 1 tab PO DAILY@1200 08/24/19 [History] Rifaximin [Xifaxan] 550 mg PO BID@599,209908/24/19 [History] Thiamine [Vitamin B-1] 100 mg PO DAILY@59908/24/19 [History] Melatonin 10 mg PO HS PRN 10/25/19 [History] Oxymetazoline 0.05% Nasl [place] [Afrin 0.05% Nasal [place]] 1 spray NASAL Q15M PRN MDD 3 DOSES 10/25/19 [History] Gabapentin [Neurontin] 200 mg PO TID@0900,1500,2099 #9 cap 12/26/19 [Rx] HYDROcodone/APAP 10-325MG [[place] 10-325] 1 tab PO Q6HR PRN 3 Days #12 tab 12/26/19 [Rx] Ascorbic Acid [Vitamin C] 500 mg PO DAILY@59901/19/20 [History] Sertraline HCl [Zoloft] 25 mg PO DAILY@0901/19/20 [History] Spironolactone [Aldactone] 50 mg PO DAILY@0601/19/20 [History] metOLazone [Zaroxolyn] 5 mg PO DAILY@89901/19/20 [History] INSULIN LISPRO (humaLOG) [humaLOG] 4 units SQ AC-TID 02/05/20 [History] Metoprolol Tartrate [Lopressor] 12.5 mg PO BID@0900,209902/05/20 [History] Midodrine [ProAmatine] 10 mg PO AC-TID #90 tab 02/11/20 [Rx] Sodium Bicarbonate Tab 650 mg PO QID tab 02/11/20 [Rx] Darbepoetin Gurwinder [Aranesp] 40 mcg SQ SA 02/16/20 [History] Furosemide [Lasix] 40 mg PO DAILY@0600 02/16/20 [History] Zinc 50 mg PO DAILY@0600 02/16/20 [History] oxyCODONE HCL [OxyCONTIN] 10 mg PO BID@0900,2100 02/16/20 [History] DAPTOmycin [Cubicin] 500 mg IV Q48H #7 bag 02/18/20 [Rx] metroNIDAZOLE [Flagyl] 500 mg PO TID #42 tab 02/18/20 [Rx] Follow up Appointment(s)/Referral(s): Tom Han MD [Primary Care Provider] - 1-2 days [facility] [place], [NON-STAFF] - As Needed Virgilio Seaman MD [STAFF PHYSICIAN] - 1 Week Activity/Diet/Wound Care/Special Instructions: ok to discharge if cleared by medicine service. Medicine to complete med rec for discharge Diet: Diabetic, renal Activity as tolerated Discharge Disposition: TRANSFER TO SNF/ECF
[2020-02-19 15:24] VITALS: BP 124/72; PULSE 58; TEMP 98.7
--- NOTE | 2020-02-20 17:33 | P.PN ---
Progress Note - Text Progress Note Date: 02/19/20 - Chief Complaint Redness at the incision site Consultation: This is a 70 year patient currently at [facility] / Dr. Han. Chronic stable medical conditions include CHF EF 55-60%, COPD, diabetes, fibromyalgia, hyperlipidemia, hypertension, chronic kidney disease stage III, rheumatoid arthritis, history of breast cancer with right sided mastectomy, peripheral neuropathy, chronic anxiety depression, liver cirrhosis with portal hypertension.uses a wheelchair to get about . Patient recently was in the hospital with GI bleed in a tagged RBC was positive and patient underwent the right colectomy on January [address] Seaman. Also repair of incisional hernia. Patient now presents with redness and tenderness around incision site. No drainage. Appetite is okay. Has had a bowel movement. Denies any fever and chills. Also found an acute kidney injury. Diuretics held. Gentle hydration. Today-feeling better. Tolerating diet. Patient's creatinine had gone up to 3 did come down to 2.7 feeling better. Patient be discharged on daptomycin and Flagyl as per ID pea. Dose of Neurontin was cutback. Zaroxolyn discontinued. Lasix discontinued. Review of systems: Was done for constitutional, cardiovascular, GI, pulmonary. relevant finding as above Current medications reviewed by today's electronic records Physical examination: VITAL SIGNS: 98.7, 58, 18, 124/72, 97% room air GENERAL: BMI 48.3, laying in bed, comfortable EYES: Pupils equal. Conjunctiva palel. HEENT: External appearance of nose and ears normal, oral cavity grossly normal. NECK: JVD unable to assess; masses not palpable. HEART: First and second heart sounds are normal; mild edema. LUNGS: Respiratory rate increased; decreased breath sounds. ABDOMEN: Soft, improved-mild redness around the incision site with some tenderness locally. liver spleen not palpable, no masses palpable. PSYCH: [Alert and oriented x3; mood and affect anxiety Investigations: February 18: White count 3.7 hemoglobin 8.4 potassium 4.4 creatinine 2.7 February 17: White count 4.4 hemoglobin 8.2 platelets 156 potassium 4.6 bun 59 creatinine 3.0 White count 5.2 hemoglobin 8.5 platelets 134 potassium 4.9 bun 57 creatinine 2.71 Computed tomography scan of the abdomen-subcutaneous density at the incision site or the anterior abdominal. Few air bubbles. Previous testing: Creatinine 1.17 on January 31 and 1.8 on February 04 2.0 on February 09 Assessment: -Acute cellulitis at the abdominal wall incision site. -right colectomy, repair of incisional hernia, partial omentectomy. Recently for GI bleed -Chronic congestive heart failure from diastolic dysfunction EF 55-60% -COPD in an ex-smoker -Diabetes mellitus type 2 on oral hypoglycemic -Chronic fibromyalgia -Hyperlipidemia -Essential hypertension -Chronic kidney disease stage III from diabetic nephropathy and hypertensive nephrosclerosis -Rheumatoid arthritis -History of breast cancer with a right-sided mastectomy -Peripheral neuropathy secondary to diabetes -Chronic anxiety depression -Obesity -Liver cirrhosis with portal hypertension on Xifaxan -Pancytopenia from cirrhosis -Patient has a legal guardian-Calvin Whipple -Acute kidney injury-possibly prerenal. Creatinine increased from recent 1.8 up to 2.7. Today 3.0. Worsening -Hyperkalemia Plan: Care was discussed with the patient. Repeat labs and [address] Seaman
[2020-02-22] MEDS ORDERED: DARBEPOETIN ALFA 40 MCG/0.4 ML SYRINGE SQ SCH (09:00)
== END 2020-02-19 17:23 | DRG 863 ==
LOC: EC 13:22 → 4SSUR 16:01 → 5NMEDONC 02-18 10:54
PROVIDERS: ADMIT Surgery; ATTEND Surgery
PROC: 05HF33Z Insertion of Infusion Device into Left Cephalic Vein, Percutaneous Approach (ICD-10-PCS; principal; 2020-02-19 08:00)
DX: T81.49XA Infection following a procedure, other surgical site, initial encounter (principal); D61.818 Other pancytopenia; N17.9 Acute kidney failure, unspecified; I13.0 Hypertensive heart and chronic kidney disease with heart failure and stage 1 through stage 4 chronic kidney disease, or unspecified chronic kidney disease; R18.8 Other ascites; K76.6 Portal hypertension; K91.872 Postprocedural seroma of a digestive system organ or structure following a digestive system procedure; L03.311 Cellulitis of abdominal wall; I50.32 Chronic diastolic (congestive) heart failure; Z68.42 Body mass index [BMI] 45.0-49.9, adult; Z86.16 Personal history of COVID-19; E11.22 Type 2 diabetes mellitus with diabetic chronic kidney disease; B95.7 Other staphylococcus as the cause of diseases classified elsewhere; N18.30 Chronic kidney disease, stage 3 unspecified; E11.42 Type 2 diabetes mellitus with diabetic polyneuropathy; K74.60 Unspecified cirrhosis of liver; E66.01 Morbid (severe) obesity due to excess calories; J44.9 Chronic obstructive pulmonary disease, unspecified; G40.909 Epilepsy, unspecified, not intractable, without status epilepticus; M06.9 Rheumatoid arthritis, unspecified; Z79.4 Long term (current) use of insulin; K56.41 Fecal impaction; K57.90 Diverticulosis of intestine, part unspecified, without perforation or abscess without bleeding; E78.5 Hyperlipidemia, unspecified; E87.5 Hyperkalemia; R16.1 Splenomegaly, not elsewhere classified; I45.10 Unspecified right bundle-branch block; F41.8 Other specified anxiety disorders; M79.7 Fibromyalgia; Z79.811 Long term (current) use of aromatase inhibitors; Z79.891 Long term (current) use of opiate analgesic; Z79.899 Other long term (current) drug therapy; Z87.891 Personal history of nicotine dependence; Z85.3 Personal history of malignant neoplasm of breast; Z90.11 Acquired absence of right breast and nipple; Z92.21 Personal history of antineoplastic chemotherapy; Z86.79 Personal history of other diseases of the circulatory system; Z86.19 Personal history of other infectious and parasitic diseases; Z90.89 Acquired absence of other organs; Z90.49 Acquired absence of other specified parts of digestive tract; Z90.710 Acquired absence of both cervix and uterus; Z98.51 Tubal ligation status; Z87.39 Personal history of other diseases of the musculoskeletal system and connective tissue; Z98.818 Other dental procedure status; Z99.3 Dependence on wheelchair; Z98.890 Other specified postprocedural states; Z88.1 Allergy status to other antibiotic agents; Z88.5 Allergy status to narcotic agent; Z88.0 Allergy status to penicillin; Z88.8 Allergy status to other drugs, medicaments and biological substances; Z82.3 Family history of stroke; Z80.1 Family history of malignant neoplasm of trachea, bronchus and lung; Z81.8 Family history of other mental and behavioral disorders; Z80.3 Family history of malignant neoplasm of breast; Z82.5 Family history of asthma and other chronic lower respiratory diseases; Z83.3 Family history of diabetes mellitus; Z83.49 Family history of other endocrine, nutritional and metabolic diseases; Z82.61 Family history of arthritis
CPT/HCPCS: 36410; 36415; 74176; 76937; 80048; 80053; 81001; 83605; 85025; 85610; 85730; 87040; 87070; 87077; 87086; 87186; 87205; 93005; 96365; 96375; 99285

== ENCOUNTER 2020-03-05 15:58 | Inpatient (IN) | payer MEDICARE, OTHER ==
--- NOTE | 2020-03-05 16:08 | ED ---
General Adult HPI - General Stated complaint: Abd wound/poss infection Time Seen by Provider: 03/05/20 16:00 Source: patient, EMS, RN notes reviewed, old records reviewed Mode of arrival: EMS - History of Present Illness Initial comments: This is a 70-year-old female with a history of recent bowel resection in January of this past year who is had an infected seroma also has VRE urine infection who is here today for evaluation for a nonhealing wound. The patient did have a wound VAC on which was removed prior to transport. She denies any overt fevers chills or sweats, pain no other complaints - Related Data Home Medications Medication Instructions Recorded Confirmed Anastrozole [Arimidex] 1 mg PO DAILY@89909/30/14 03/05/20 Sennosides [Senna] 8.6 mg PO BID@599,209904/02/18 03/05/20 Pantoprazole [Protonix] 40 mg PO DAILY@59907/02/18 03/05/20 Ferrous Sulfate [Iron (65 MG 325 mg PO DAILY@89908/16/18 03/05/20 Elemental)] Acetaminophen [Tylenol] 650 mg PO Q4H PRN 08/24/19 03/05/20 Dextran 70/Hypromellose [Genteal 1 drop BOTH EYES BID@09,209908/24/19 03/05/20 Tears 0.1%-0.3% Drop] Folic Acid 1 mg PO DAILY@89908/24/19 03/05/20 Lactulose 20 gm PO BID@899,2099 PRN 08/24/19 03/05/20 Multivitamins, Thera [Multivitamin 1 tab PO DAILY@89908/24/19 03/05/20 (formulary)] Rifaximin [Xifaxan] 550 mg PO BID@599,209908/24/19 03/05/20 Thiamine [Vitamin B-1] 100 mg PO DAILY@59908/24/19 03/05/20 Melatonin 10 mg PO HS PRN 10/25/19 03/05/20 Oxymetazoline 0.05% Nasl Cameron 1 spray NASAL Q15M PRN MDD 3 DOSES 10/25/19 03/05/20 [Afrin 0.05% Nasal Cameron] Sertraline HCl [Zoloft] 25 mg PO DAILY@0900 01/19/20 03/05/20 Spironolactone [Aldactone] 50 mg PO DAILY@0600 01/19/20 03/05/20 INSULIN LISPRO (humaLOG) [humaLOG] 4 units SQ TID@0800,1200,1700 02/05/20 03/05/20 Metoprolol Tartrate [Lopressor] 12.5 mg PO BID@0900,2100 02/05/20 03/05/20 Darbepoetin Gurwinder [Aranesp] 40 mcg SQ SA 02/16/20 03/05/20 Cholecalciferol [Vitamin D3 (25 50 mcg PO DAILY 03/05/20 03/05/20 Mcg = 1000 Iu)] Glucerna Shake 1 can PO BID@0900,1700 03/05/20 03/05/20 Insulin Lispro [humaLOG Kwikpen] See Protocol SQ ACHS 03/05/20 03/05/20 Midodrine [ProAmatine] 10 mg PO TID@0800,1200,1700 03/05/20 03/05/20 Previous Rx's Medication Instructions Recorded Sodium Bicarbonate Tab 650 mg PO QID tab 02/11/20 Gabapentin [Neurontin] 100 mg PO TID@0900,1500,2100 #9 cap 02/19/20 HYDROcodone/APAP 10-325MG [Riggins 1 tab PO Q6HR PRN 3 Days #12 tab 02/19/20 10-325] oxyCODONE HCL [OxyCONTIN] 10 mg PO BID@0900,2100 #6 tab 02/19/20 Allergies Allergy/AdvReac Type Severity Reaction Status Date / Time cephalexin [From Keflex] Allergy Unknown Verified 03/05/20 18:05 duloxetine [From Cymbalta] Allergy Unknown Verified 03/05/20 18:05 Penicillins Allergy Rash/Hives Verified 03/05/20 18:05 phenobarbital Allergy Unknown Verified 03/05/20 18:05 phenytoin sodium Allergy Unknown Verified 03/05/20 18:05 [From Dilantin] phenytoin sodium extended Allergy Unknown Verified 03/05/20 18:05 [From Dilantin] primidone [From Mysoline] Allergy Unknown Verified 03/05/20 18:05 codeine AdvReac Nausea & Verified 03/05/20 18:05 Vomiting Review of Systems ROS Statement: Those systems with pertinent positive or pertinent negative responses have been documented in the HPI. ROS Other: All systems not noted in ROS Statement are negative. Past Medical History Past Medical History: Cancer, Heart Failure, COPD, Diabetes Mellitus, Fibromyalgia, Hyperlipidemia, Hypertension, Renal Disease, Rheumatoid Arthritis (RA), Seizure Disorder, Supraventricular Tachycardia (SVT) Additional Past Medical History / Comment(s): Breast cancer right-sided post mastectomy followed by chemotherapy, is independent diabetes mellitus type 2, peripheral neuropathy related to diabetes, COPD, liver cirrhosis, hypertension, hyperlipidemia, fibromyalgia, chronic kidney disease, rheumatoid arthritis, seizure disorder, history of SVT, diabetic peripheral neuropathy, chronic anxiety and depression, morbid obesity with a BMI of 58.5, previous history of GI bleed, diverticular disease, history of hepatic encephalopathy History of Any Multi-Drug Resistant Organisms: VRE Date of last positivie culture/infection: 05/11/18 MDRO Source:: VRE URINE Past Surgical History: Adenoidectomy, Appendectomy, Breast Surgery, Swati cystectomy, Hysterectomy, Orthopedic Surgery, Tonsillectomy, Tubal Ligation Additional Past Surgical History / Comment(s): masectomy right, ganglion cyst right hand, total hysterectomy (hx of tubal pregnancies), lower teeth extracted. Past Anesthesia/Blood Transfusion Reactions: No Reported Reaction Past Psychological History: Anxiety, Depression Additional Psychological History / Comment(s): Pt currently is at [facility] for rehab. She needs assist with ADLS except feeds self. She states up until just lately she was getting up with a walker some. No experience. Did not work outside of the home. . No alcohol use Smoking Status: Former smoker Past Alcohol Use History: None Reported Additional Past Alcohol Use History / Comment(s): Pt started smoking in 1971 and qut in December 2017. Per patient she smoked 1-2 cigarettes a day after meals. Past Drug Use History: None Reported - Past Family History Father Family Medical History: Cancer, CVA/TIA Additional Family Medical History / Comment(s): 2000 from lung cancer Mother Family Medical History: Cancer, Dementia Additional Family Medical History / Comment(s): 2014 at age 86. Oral & Breast cancer Brother(s) Family Medical History: Asthma, Diabetes Mellitus, Fibromyalgia, Osteoarthritis (OA) Additional Family Medical History / Comment(s): Obesity. Joint replacements General Exam - General Exam Comments Initial Comments: This is a well-developed well-nourished awake alert oriented 3 female General appearance: alert, in no apparent distress Head exam: Present: atraumatic, normocephalic, normal inspection Eye exam: Present: normal appearance, PERRL, EOMI. Absent: scleral icterus, conjunctival injection, periorbital swelling ENT exam: Present: normal exam, mucous membranes moist Neck exam: Present: normal inspection. Absent: tenderness, meningismus, lymphadenopathy Respiratory exam: Present: normal lung sounds bilaterally. Absent: respiratory distress, wheezes, rales, rhonchi, stridor Cardiovascular Exam: Present: regular rate, normal rhythm, normal heart sounds. Absent: systolic murmur, diastolic murmur, rubs, gallop, clicks GI/Abdominal exam: Present: soft, normal bowel sounds, other (Insulin lispro, in the midline incision also nonhealing wound minimal discomfort to palpation). Absent: distended, tenderness, guarding, rebound, rigid External exam: Present: other (Chronic indwelling Granados catheter with cloudy looking urine) Extremities exam: Present: normal inspection, full ROM, normal capillary refill. Absent: tenderness, pedal edema, joint swelling, calf tenderness Back exam: Present: normal inspection Neurological exam: Present: alert, oriented X3, CN II-XII intact Psychiatric exam: Present: normal affect, normal mood Skin exam: Present: warm, dry, intact, normal color. Absent: rash Course Vital Signs 03/05/20 03/05/20 16:06 17:00 Temperature 98.2 F Pulse Rate 67 62 Respiratory 20 20 Rate Blood Pressure 120/70 118/62 O2 Sat by Pulse 94 L 93 L Oximetry - Reevaluation(s) Reevaluation #1: 03/05/20 19:03 I did perform a rectal exam the patient with nursing present. Brown stool heme positive Medical Decision Making - Medical Decision Making Did discuss findings with patient and with Dr. Griffith facial be admitted with consultation Dr. Ivory. Patient does have a heme positive stool a hemoglobin was 7.7. Addition to other findings - Lab Data Result diagrams: 03/05/20 16:33 03/05/20 16:33 Lab Results 03/05/20 03/05/20 03/05/20 Range/Units 16:33 16:33 17:49 WBC 2.9 L (3.8-10.6) k/uL RBC 2.84 L (3.80-5.40) m/uL Hgb 7.7 L (11.4-16.0) gm/dL Hct 24.5 L (34.0-46.0) % MCV 86.5 (80.0-100.0) fL MCH 27.3 (25.0-35.0) pg MCHC 31.6 (31.0-37.0) g/dL RDW 18.9 H (11.5-15.5) % Plt Count 107 L (150-450) k/uL MPV 8.6 Neutrophils % 62 % Lymphocytes % 22 % Monocytes % 9 % Eosinophils % 5 % Basophils % 1 % Neutrophils # 1.8 (1.3-7.7) k/uL Lymphocytes # 0.6 L (1.0-4.8) k/uL Monocytes # 0.3 (0-1.0) k/uL Eosinophils # 0.1 (0-0.7) k/uL Basophils # 0.0 (0-0.2) k/uL Hypochromasia Marked Anisocytosis Slight Sodium 136 L (137-145) mmol/L Potassium 5.8 H (3.5-5.1) mmol/L Chloride 109 H (98-107) mmol/L Carbon Dioxide 25 (22-30) mmol/L Anion Gap 2 mmol/L BUN 31 H (7-17) mg/dL Creatinine 1.76 H (0.52-1.04) mg/dL Est GFR (CKD-EPI)AfAm 34 (>60 ml/min/1.73 sqM) Est GFR (CKD-EPI)NonAf 29 (>60 ml/min/1.73 sqM) Glucose 137 H (74-99) mg/dL Calcium 8.3 L (8.4-10.2) mg/dL Total Bilirubin 0.8 (0.2-1.3) mg/dL AST 49 H (14-36) U/L ALT 10 (4-34) U/L Alkaline Phosphatase 61 (38-126) U/L Creatine Kinase 34 (30-135) U/L Total Protein 6.5 (6.3-8.2) g/dL Albumin 2.7 L (3.5-5.0) g/dL Urine Color Yellow Urine Appearance Cloudy H (Clear) Urine pH 7.5 (5.0-8.0) Ur Specific [place] 1.019 (1.001-1.035) Urine Protein 1+ H (Negative) Urine Glucose (UA) Negative (Negative) Urine Ketones Negative (Negative) Urine Blood Small H (Negative) Urine Nitrite Negative (Negative) Urine Bilirubin Negative (Negative) Urine Urobilinogen <2.0 (<2.0) mg/dL Ur Leukocyte Esterase Large H (Negative) Urine RBC 46 H (0-5) /hpf Urine WBC 116 H (0-5) /hpf Urine Bacteria Rare H (None) /hpf Urine Mucus Rare H (None) /hpf Stool Occult Blood (Negative) 03/05/20 Range/Units 18:30 WBC (3.8-10.6) k/uL RBC (3.80-5.40) m/uL Hgb (11.4-16.0) gm/dL Hct (34.0-46.0) % MCV (80.0-100.0) fL MCH (25.0-35.0) pg MCHC (31.0-37.0) g/dL RDW (11.5-15.5) % Plt Count (150-450) k/uL MPV Neutrophils % % Lymphocytes % % Monocytes % % Eosinophils % % Basophils % % Neutrophils # (1.3-7.7) k/uL Lymphocytes # (1.0-4.8) k/uL Monocytes # (0-1.0) k/uL Eosinophils # (0-0.7) k/uL Basophils # (0-0.2) k/uL Hypochromasia Anisocytosis Sodium (137-145) mmol/L Potassium (3.5-5.1) mmol/L Chloride (98-107) mmol/L Carbon Dioxide (22-30) mmol/L Anion Gap mmol/L BUN (7-17) mg/dL Creatinine (0.52-1.04) mg/dL Est GFR (CKD-EPI)AfAm (>60 ml/min/1.73 sqM) Est GFR (CKD-EPI)NonAf (>60 ml/min/1.73 sqM) Glucose (74-99) mg/dL Calcium (8.4-10.2) mg/dL Total Bilirubin (0.2-1.3) mg/dL AST (14-36) U/L ALT (4-34) U/L Alkaline Phosphatase (38-126) U/L Creatine Kinase (30-135) U/L Total Protein (6.3-8.2) g/dL Albumin (3.5-5.0) g/dL Urine Color Urine Appearance (Clear) Urine pH (5.0-8.0) Ur Specific [place] (1.001-1.035) Urine Protein (Negative) Urine Glucose (UA) (Negative) Urine Ketones (Negative) Urine Blood (Negative) Urine Nitrite (Negative) Urine Bilirubin (Negative) Urine Urobilinogen (<2.0) mg/dL Ur Leukocyte Esterase (Negative) Urine RBC (0-5) /hpf Urine WBC (0-5) /hpf Urine Bacteria (None) /hpf Urine Mucus (None) /hpf Stool Occult Blood Positive H (Negative) - Radiology Data Radiology results: report reviewed (I did review the imaging and report no acute findings and the imaging), image reviewed Disposition Clinical Impression: GI bleeding, Anemia, Open abdominal wall wound, Renal insufficiency, Obesity Disposition: ADMITTED IP TO THIS [facility] Condition: Fair Referrals: Tom Han MD [Primary Care Provider] - 1-2 days
[2020-03-05 16:44] LABS: Anisocytosis Slight; Basophils % (A) 1 %; Eosinophils # (A) 0.1 k/uL (0-0.7); Eosinophils % (A) 5 %; HCT 24.5 % (34.0-46.0); HGB 7.7 gm/dL (11.4-16.0); Hypochromasia Marked; Lymphocytes # (A) 0.6 k/uL (1.0-4.8); Lymphocytes % (A) 22 %; MCH 27.3 pg (25.0-35.0); MCHC 31.6 g/dL (31.0-37.0); MCV 86.5 fL (80.0-100.0); Mean Platelet Volume 8.6; Monocytes # (A) 0.3 k/uL (0-1.0); Monocytes % (A) 9 %; Neutrophils # (A) 1.8 k/uL (1.3-7.7); Neutrophils % (A) 62 %; Platelet Count 107 k/uL (150-450); RBC 2.84 m/uL (3.80-5.40); RDW 18.9 % (11.5-15.5); WBC 2.9 k/uL (3.8-10.6)
[2020-03-05 16:54] LABS: Albumin 2.7 g/dL (3.5-5.0); Calcium 8.3 mg/dL (8.4-10.2); Total Bilirubin 0.8 mg/dL (0.2-1.3); Total Protein 6.5 g/dL (6.3-8.2)
--- NOTE | 2020-03-05 17:01 | XR ---
EXAMINATION TYPE: XR chest 2V DATE OF EXAM: 03/05/2020 COMPARISON: 02/09/2020 HISTORY: Chronic wound TECHNIQUE: FINDINGS: There is coarse interstitial density in the lungs. Heart size is fairly normal. There is no heart failure. There are chest leads. Costophrenic angles are fairly clear. IMPRESSION: Mild pulmonary fibrotic changes. There is clearing of some infiltrate right upper lobe co mpared to old exam.
[2020-03-05 17:16] LABS: Potassium 5.8 mmol/L (3.5-5.1)
--- NOTE | 2020-03-05 17:27 | XR ---
EXAMINATION TYPE: XR KUB DATE OF EXAM: 03/05/2020 COMPARISON: 07/02/2018 HISTORY: Abdominal pain TECHNIQUE: 2 views supine FINDINGS: There is no sign of intestinal obstruction or pneumoperitoneum. Fecal pattern is normal. Th ere is no evidence of a mass. There is mild pleural thickening at the lateral left lung base. There a re no pathologic calcifications over the kidneys. IMPRESSION: Nonacute abdomen. Pleural scarring at the left lung base.
[2020-03-05 18:04] LABS: Appearance,Urine Cloudy (Clear); Bacteria,Urine Rare /hpf; Bilirubin,Urine Negative (Negative); Blood,Urine Small (Negative); Color,Urine Yellow; Glucose,Urine (UA) Negative (Negative); Ketones,Urine Negative (Negative); Leukocyte Esterase,Urine Large (Negative); Mucus,Urine Rare /hpf; Nitrite,Urine Negative (Negative); PH, Urine 7.5 (5.0-8.0); Protein,Urine 1+ (Negative); RBC,Urine 46 /hpf (0-5); Specific Gravity,Urine 1.019 (1.001-1.035); Urobilinogen,Urine <2.0 mg/dL (<2.0); WBC,Urine 116 /hpf (0-5)
[2020-03-05] MEDS ORDERED: NALOXONE 0.4 MG/ML 1 ML VIAL IV PRN (19:07)
[2020-03-05] MEDS ORDERED: MELATONIN 5 MG TABLET PO PRN (19:10)
[2020-03-05] MEDS ORDERED: OXYMETAZOLINE 0.05% NASL SPRAY 1 SPRAY BOTTLE NASAL PRN (19:10)
[2020-03-05] MEDS ORDERED: ACETAMINOPHEN TAB 325 MG TAB PO PRN (19:10)
[2020-03-05] MEDS ORDERED: LACTULOSE 20 GM/30 ML CUP PO PRN (21:00)
[2020-03-05] MEDS: SODIUM CHLORIDE 0.9% 1,000 ML IV SCH (21:51)
[2020-03-05] MEDS: INSULIN ASPART (NovoLOG) 100 UNIT/ML VIAL SQ SCH (21:55)
[2020-03-05] MEDS: oxyCODONE ER 10 MG TAB.ER.12H PO SCH (22:42)
[2020-03-05] MEDS: ARTIFICIAL TEARS-HYPROMELLOSE DROPS 15 ML BTL BOTH EYES SCH (22:42)
[2020-03-05] MEDS: SENNOSIDES 8.6 MG TAB PO SCH (22:42)
[2020-03-05] MEDS: PANTOPRAZOLE 40 MG/10 ML VIAL IV SCH (22:42)
[2020-03-05] MEDS: METOPROLOL TARTRATE 12.5 MG TAB PO SCH (22:42)
[2020-03-05] MEDS: GABAPENTIN 100 MG CAP PO SCH (22:45)
[2020-03-05] MEDS: RIFAXIMIN 550 MG TABLET PO SCH (22:45)
[2020-03-05] MEDS: SODIUM BICARBONATE TAB 650 MG TAB PO SCH (22:48)
[2020-03-05 22:57] LABS: Anisocytosis Slight; HGB 7.9 gm/dL (11.4-16.0); Hypochromasia Marked; MCH 26.7 pg (25.0-35.0); MCHC 28.4 g/dL (31.0-37.0); Macrocytosis Slight; Mean Platelet Volume 8.1; Platelet Count 106 k/uL (150-450); RBC 2.98 m/uL (3.80-5.40); RDW 18.7 % (11.5-15.5); WBC 3.1 k/uL (3.8-10.6)
[2020-03-05 22:59] LABS: Potassium 5.7 mmol/L (3.5-5.1)
[2020-03-05 23:04] LABS: MCV 94.1 fL (80.0-100.0)
[2020-03-06] MEDS: HYDROcodone/APAP 10-325MG 1 EACH TAB PO PRN ×2 (00:18→05:56)
[2020-03-06] MEDS: RIFAXIMIN 550 MG TABLET PO SCH ×2 (05:56→20:50)
[2020-03-06] MEDS: SENNOSIDES 8.6 MG TAB PO SCH ×2 (05:56→20:50)
[2020-03-06] MEDS: SODIUM CHLORIDE 0.9% 1,000 ML IV SCH ×3 (05:56→20:51)
[2020-03-06] MEDS: THIAMINE 100 MG TAB PO SCH (05:57)
[2020-03-06] MEDS: SPIRONOLACTONE 25 MG TAB PO SCH (05:57)
[2020-03-06 07:28] LABS: Glucose,Whole Blood 94 mg/dL (75-99)
[2020-03-06] MEDS: INSULIN ASPART (NovoLOG) 100 UNIT/ML VIAL SQ SCH ×4 (07:37→20:50)
[2020-03-06] MEDS ORDERED: NON FORMULARY DRUG (Glucerna Shake 1 CAN Liquid) PO SCH (09:00)
[2020-03-06] MEDS: METOPROLOL TARTRATE 12.5 MG TAB PO SCH ×2 (09:04→20:49)
[2020-03-06] MEDS: SODIUM BICARBONATE TAB 650 MG TAB PO SCH ×4 (09:05→20:49)
[2020-03-06] MEDS: FOLIC ACID 1 MG TAB PO SCH (09:05)
[2020-03-06] MEDS: MULTIVITAMINS, THERA 1 EACH TAB PO SCH (09:06)
[2020-03-06] MEDS: GABAPENTIN 100 MG CAP PO SCH ×3 (09:06→20:49)
[2020-03-06] MEDS: oxyCODONE ER 10 MG TAB.ER.12H PO SCH ×2 (09:07→20:50)
[2020-03-06] MEDS: MIDODRINE 5 MG TAB PO SCH ×3 (09:07→17:14)
[2020-03-06] MEDS: CHOLECALCIFEROL 25 MCG (1000 IU) TABLET PO SCH (09:11)
[2020-03-06] MEDS: FERROUS SULFATE 325 MG TAB PO SCH (09:12)
[2020-03-06] MEDS: ANASTROZOLE 1 MG TAB PO SCH (09:13)
[2020-03-06] MEDS: SERTRALINE 25 MG TAB PO SCH (09:13)
[2020-03-06] MEDS: PANTOPRAZOLE 40 MG/10 ML VIAL IV SCH ×2 (09:14→20:51)
[2020-03-06] MEDS: ARTIFICIAL TEARS-HYPROMELLOSE DROPS 15 ML BTL BOTH EYES SCH ×2 (09:15→20:50)
[2020-03-06 11:14] LABS: ALT 9 U/L (4-34); AST 34 U/L (14-36); African American GFR (CKD) 33 (>60 ml/min/1.73 sqM); Albumin 2.6 g/dL (3.5-5.0); Albumin/Globulin Ratio 0.7; Alkaline Phosphatase 60 U/L (38-126); Anion Gap 5 mmol/L; Blood Urea Nitrogen 28 mg/dL (7-17); Calcium 8.4 mg/dL (8.4-10.2); Carbon Dioxide 23 mmol/L (22-30); Chloride 109 mmol/L (98-107); Globulin 3.7 g/dL; Glucose 104 mg/dL (74-99); Non-African American GFR(CKD) 29 (>60 ml/min/1.73 sqM); Potassium 5.3 mmol/L (3.5-5.1); Sodium 137 mmol/L (137-145); Total Bilirubin 0.7 mg/dL (0.2-1.3); Total Protein 6.3 g/dL (6.3-8.2)
[2020-03-06 11:16] LABS: Anisocytosis Slight; Basophils % (A) 1 %; Eosinophils # (A) 0.2 k/uL (0-0.7); Eosinophils % (A) 5 %; HCT 26.3 % (34.0-46.0); HGB 7.8 gm/dL (11.4-16.0); Hypochromasia Marked; Lymphocytes # (A) 0.9 k/uL (1.0-4.8); Lymphocytes % (A) 23 %; MCH 26.8 pg (25.0-35.0); MCHC 29.7 g/dL (31.0-37.0); Mean Platelet Volume 8.3; Monocytes # (A) 0.3 k/uL (0-1.0); Monocytes % (A) 8 %; Neutrophils # (A) 2.3 k/uL (1.3-7.7); Neutrophils % (A) 60 %; Platelet Count 111 k/uL (150-450); RBC 2.92 m/uL (3.80-5.40); RDW 18.9 % (11.5-15.5); WBC 3.9 k/uL (3.8-10.6)
[2020-03-06 11:44] LABS: Glucose,Whole Blood 111 mg/dL (75-99)
[2020-03-06] MEDS: ONDANSETRON 4 MG/2 ML VIAL IVP PRN (12:03)
--- NOTE | 2020-03-06 13:37 | P.GSCN ---
History of Present Illness Consult date: 03/06/20 History of present illness: CHIEF COMPLAINT: Abdominal wound HISTORY OF PRESENT ILLNESS: This is a 70-year-old female who is status post right colectomy for GI bleed and angiodysplasia on 01/27/[address] Seaman. She also had a hospitalization in the beginning of February for an infected seroma at the incision site. She was treated with IV daptomycin and Flagyl. And she did have a wound VAC at the halfway. Patient was brought back into the emergency room for a nonhealing abdominal wound. Patient reports that it had been draining. Consult was placed for nonhealing abdominal wound as well as possible GI bleed. According to patient she has not had any blood in her stools or black stools. She did have a stool positive for occult blood and her hem oglobin is 7.8. Patient does admit to having some abdominal pain at wound site. She denies any fever, chills or sweats. Denies any nausea or vomiting. She reports having bowel movements. Patient does have a past medical history that does include anemia, CHF, COPD, diabetes, fibromyalgia, hyperlipidemia, hypertension, chronic kidney disease stage III, rheumatoid arthritis and liver cirrhosis. PAST MEDICAL HISTORY: See list. PAST SURGICAL HISTORY: See list. MEDICATIONS: See list. ALLERGIES: See list. SOCIAL HISTORY: No illicit drug use. REVIEW OF SYSTEMS: CONSTITUTIONAL: Denies fever or chills. HEENT: Denies blurred vision, vision changes, or eye pain. Denies hemoptysis CARDIOVASCULAR: Denies chest pain or pressure. RESPIRATORY: No shortness of breath. GASTROINTESTINAL: See HPI for pertinent findings HEMATOLOGIC: Denies bleeding disorders. GENITOURINARY: Denies any blood in urine or increased urinary frequency. SKIN: Denies pruitis. Denies rash. PHYSICAL EXAM: VITAL SIGNS: Reviewed GENERAL: Well-developed in no acute distress. HEENT: No sclera icterus. Extraocular movements grossly intact. Moist buccal mucosa. Head is atraumatic, normocephalic. No nasal drainage. ABDOMEN: Soft. Obese. Nondistended. Incision site there is a 2 cm in length abdominal wound. There is slough and mucus discharge that once wiped away does show a healthy tissue underneath. No evidence of erythema around the edges of the wound. NEUROLOGIC: Alert and oriented. Cranial nerves II through XII grossly intact. LABORATORY DATA: WBC 3.9 hemoglobin 7.8 platelets 111 sodium 137 potassium 5.3 BUN 28 creatinine 1.79 IMAGING: KUB x-ray shows a nonacute abdomen. Pleural scarring at the left lung base ASSESSMENT: 1. Nonhealing abdominal wound 2. Possible GI bleed. Stool for occult blood is positive. Hemoglobin 7.8. Patient denies any active bleeding. 3. Chronic anemia that is multifactorial. Likely due to chronic kidney disease, malnutrition, recent infections, as well as possible underlying GI bleed. 4. Status post right colectomy for GI bleed and angiodysplasia on 01/27/2020 PLAN: -Continue local wound care with iodoform ribbon gauze -Continue to monitor patient's hemoglobin and for any signs of active bleeding -No surgical intervention planned -Start patient on a full liquid diet Thank you for this consultation Physician Splitting Machine Operator note has been reviewed by physician. Signing provider agrees with the documented findings, assessment, and plan of care. Past Medical History Past Medical History: Cancer, Heart Failure, COPD, Diabetes Mellitus, Fibromyalgia, Hyperlipidemia, Hypertension, Renal Disease, Rheumatoid Arthritis (RA), Seizure Disorder, Supraventricular Tachycardia (SVT) Additional Past Medical History / Comment(s): Breast cancer right-sided post mastectomy followed by chemotherapy, is independent diabetes mellitus type 2, peripheral neuropathy related to diabetes, COPD, liver cirrhosis, hypertension, hyperlipidemia, fibromyalgia, chronic kidney disease, rheumatoid arthritis, seizure disorder, history of SVT, diabetic peripheral neuropathy, chronic anxiety and depression, morbid obesity with a BMI of 58.5, previous history of GI bleed, diverticular disease, history of hepatic encephalopathy History of Any Multi-Drug Resistant Organisms: VRE Year Discovered:: 05/11/18 MDRO Source:: VRE URINE Past Surgical History: Adenoidectomy, Appendectomy, Breast Surgery, Cholecystectomy, Hysterectomy, Orthopedic Surgery, Tonsillectomy, Tubal Ligation Additional Past Surgical History / Comment(s): masectomy right, ganglion cyst right hand, total hysterectomy (hx of tubal pregnancies), lower teeth extracted. Past Anesthesia/Blood Transfusion Reactions: No Reported Reaction Past Psychological History: Anxiety, Depression Additional Psychological History / Comment(s): Pt currently is at [facility] for rehab. She needs assist with ADLS except feeds self. She states up until just lately she was getting up with a walker some. No experience. Did not work outside of the home. . No alcohol use Smoking Status: Former smoker Past Alcohol Use History: None Reported Additional Past Alcohol Use History / Comment(s): Pt started smoking in 1971 and qut in December 2017. Per patient she smoked 1-2 cigarettes a day after meals. Past Drug Use History: None Reported - Past Family History Father Family Medical History: Cancer, CVA/TIA Additional Family Medical History / Comment(s): 2000 from lung cancer Mother Family Medical History: Cancer, Dementia Additional Family Medical History / Comment(s): 2014 at age 86. Oral & Breast cancer Brother(s) Family Medical History: Asthma, Diabetes Mellitus, Fibromyalgia, Osteoarthritis (OA) Additional Family Medical History / Comment(s): Obesity. Joint replacements Medications and Allergies Home Medications Medication Instructions Recorded Confirmed Type Anastrozole [Arimidex] 1 mg PO DAILY@0909/30/14 03/05/20 History Sennosides [Senna] 8.6 mg PO BID@599,209904/02/18 03/05/20 History Pantoprazole [Protonix] 40 mg PO DAILY@59907/02/18 03/05/20 History Ferrous Sulfate [Iron (65 MG 325 mg PO DAILY@89908/16/18 03/05/20 History Elemental)] Acetaminophen [Tylenol] 650 mg PO Q4H PRN 08/24/19 03/05/20 History Dextran 70/Hypromellose [Genteal 1 drop BOTH EYES BID@09,209908/24/19 03/05/20 History Tears 0.1%-0.3% Drop] Folic Acid 1 mg PO DAILY@89908/24/19 03/05/20 History Lactulose 20 gm PO BID@899,2099 PRN 08/24/19 03/05/20 History Multivitamins, Thera [Multivitamin 1 tab PO DAILY@89908/24/19 03/05/20 History (formulary)] Rifaximin [Xifaxan] 550 mg PO BID@0600,209908/24/19 03/05/20 History Thiamine [Vitamin B-1] 100 mg PO DAILY@59908/24/19 03/05/20 History Melatonin 10 mg PO HS PRN 10/25/19 03/05/20 History Oxymetazoline 0.05% Nasl [place] 1 spray NASAL Q15M PRN MDD 3 DOSES 10/25/19 03/05/20 History [Afrin 0.05% Nasal [place]] Sertraline HCl [Zoloft] 25 mg PO DAILY@0900 01/19/20 03/05/20 History Spironolactone [Aldactone] 50 mg PO DAILY@0600 01/19/20 03/05/20 History INSULIN LISPRO (humaLOG) [humaLOG] 4 units SQ TID@0800,1200,1700 02/05/20 History Metoprolol Tartrate [Lopressor] 12.5 mg PO BID@0900,2100 02/05/20 03/05/20 History Sodium Bicarbonate Tab 650 mg PO QID tab 02/11/20 03/05/20 Rx Darbepoetin Gurwinder [Aranesp] 40 mcg SQ SA 02/16/20 03/05/20 History Gabapentin [Neurontin] 100 mg PO TID@0900,1500,2100 #9 cap 02/19/20 03/05/20 Rx HYDROcodone/APAP 10-325MG [[place] 1 tab PO Q6HR PRN 3 Days #12 tab 02/19/20 03/05/20 Rx 10-325] oxyCODONE HCL [OxyCONTIN] 10 mg PO BID@0900,2100 #6 tab 02/19/20 03/05/20 Rx Cholecalciferol [Vitamin D3 (25 50 mcg PO DAILY 03/05/20 03/05/20 History Mcg = 1000 Iu)] Glucerna Shake 1 can PO BID@0900,1700 03/05/20 03/05/20 History Insulin Lispro [humaLOG Kwikpen] See Protocol SQ ACHS 03/05/20 03/05/20 History Midodrine [ProAmatine] 10 mg PO TID@0800,1200,1700 03/05/20 03/05/20 History Allergies Allergy/AdvReac Type Severity Reaction Status Date / Time cephalexin [From Keflex] Allergy Unknown Verified 03/05/20 18:05 duloxetine [From Cymbalta] Allergy Unknown Verified 03/05/20 18:05 Penicillins Allergy Rash/Hives Verified 03/05/20 18:05 phenobarbital Allergy Unknown Verified 03/05/20 18:05 phenytoin sodium Allergy Unknown Verified 03/05/20 18:05 [From Dilantin] phenytoin sodium extended Allergy Unknown Verified 03/05/20 18:05 [From Dilantin] primidone [From Mysoline] Allergy Unknown Verified 03/05/20 18:05 codeine AdvReac Nausea & Verified 03/05/20 18:05 Vomiting Surgical - Exam Vital Signs Temp Pulse Resp BP Pulse Ox 98.2 F 67 20 120/70 94 L 03/05/20 16:06 03/05/20 16:06 03/05/20 16:06 03/05/20 16:06 03/05/20 16:06 Results - Labs 03/06/20 10:16 03/06/20 10:16 Abnormal Lab Results - Last 24 Hours (Table) 03/05/20 03/05/20 03/05/20 Range/Units 16:33 16:33 17:49 WBC 2.9 L (3.8-10.6) k/uL RBC 2.84 L (3.80-5.40) m/uL Hgb 7.7 L (11.4-16.0) gm/dL Hct 24.5 L (34.0-46.0) % MCHC (31.0-37.0) g/dL RDW 18.9 H (11.5-15.5) % Plt Count 107 L (150-450) k/uL Lymphocytes # 0.6 L (1.0-4.8) k/uL Sodium 136 L (137-145) mmol/L Potassium 5.8 H (3.5-5.1) mmol/L Chloride 109 H (98-107) mmol/L BUN 31 H (7-17) mg/dL Creatinine 1.76 H (0.52-1.04) mg/dL Glucose 137 H (74-99) mg/dL POC Glucose (mg/dL) (75-99) mg/dL Calcium 8.3 L (8.4-10.2) mg/dL AST 49 H (14-36) U/L Albumin 2.7 L (3.5-5.0) g/dL Urine Appearance Cloudy H (Clear) Urine Protein 1+ H (Negative) Urine Blood Small H (Negative) Ur Leukocyte Esterase Large H (Negative) Urine RBC 46 H (0-5) /hpf Urine WBC 116 H (0-5) /hpf Urine Bacteria Rare H (None) /hpf Urine Mucus Rare H (None) /hpf Stool Occult Blood (Negative) 03/05/20 03/05/20 03/05/20 Range/Units 18:30 22:33 22:33 WBC 3.1 L (3.8-10.6) k/uL RBC 2.98 L (3.80-5.40) m/uL Hgb 7.9 L (11.4-16.0) gm/dL Hct 28.0 L (34.0-46.0) % MCHC 28.4 L (31.0-37.0) g/dL RDW 18.7 H (11.5-15.5) % Plt Count 106 L (150-450) k/uL Lymphocytes # (1.0-4.8) k/uL Sodium (137-145) mmol/L Potassium 5.7 H (3.5-5.1) mmol/L Chloride 110 H (98-107) mmol/L BUN (7-17) mg/dL Creatinine (0.52-1.04) mg/dL Glucose (74-99) mg/dL POC Glucose (mg/dL) (75-99) mg/dL Calcium (8.4-10.2) mg/dL AST (14-36) U/L Albumin (3.5-5.0) g/dL Urine Appearance (Clear) Urine Protein (Negative) Urine Blood (Negative) Ur Leukocyte Esterase (Negative) Urine RBC (0-5) /hpf Urine WBC (0-5) /hpf Urine Bacteria (None) /hpf Urine Mucus (None) /hpf Stool Occult Blood Positive H (Negative) 03/06/20 03/06/20 03/06/20 Range/Units 10:16 10:16 11:43 WBC (3.8-10.6) k/uL RBC 2.92 L (3.80-5.40) m/uL Hgb 7.8 L (11.4-16.0) gm/dL Hct 26.3 L (34.0-46.0) % MCHC 29.7 L (31.0-37.0) g/dL RDW 18.9 H (11.5-15.5) % Plt Count 111 L (150-450) k/uL Lymphocytes # 0.9 L (1.0-4.8) k/uL Sodium (137-145) mmol/L Potassium 5.3 H (3.5-5.1) mmol/L Chloride 109 H (98-107) mmol/L BUN 28 H (7-17) mg/dL Creatinine 1.79 H (0.52-1.04) mg/dL Glucose 104 H (74-99) mg/dL POC Glucose (mg/dL) 111 H (75-99) mg/dL Calcium (8.4-10.2) mg/dL AST (14-36) U/L Albumin 2.6 L (3.5-5.0) g/dL Urine Appearance (Clear) Urine Protein (Negative) Urine Blood (Negative) Ur Leukocyte Esterase (Negative) Urine RBC (0-5) /hpf Urine WBC (0-5) /hpf Urine Bacteria (None) /hpf Urine Mucus (None) /hpf Stool Occult Blood (Negative) Microbiology - Last 24 Hours (Table) 03/05/20 17:49 Urine Culture - Preliminary Urine,Voided Diabetes panel 03/05/20 03/05/20 03/06/20 Range/Units 16:33 22:33 10:16 Sodium 136 L 137 137 (137-145) mmol/L Potassium 5.8 H 5.7 H 5.3 H (3.5-5.1) mmol/L Chloride 109 H 110 H 109 H (98-107) mmol/L Carbon Dioxide 25 23 23 (22-30) mmol/L BUN 31 H 28 H (7-17) mg/dL Creatinine 1.76 H 1.79 H (0.52-1.04) mg/dL Glucose 137 H 104 H (74-99) mg/dL Calcium 8.3 L 8.4 (8.4-10.2) mg/dL AST 49 H 34 (14-36) U/L ALT 10 9 (4-34) U/L Alkaline Phosphatase 61 60 (38-126) U/L Total Protein 6.5 6.3 (6.3-8.2) g/dL Albumin 2.7 L 2.6 L (3.5-5.0) g/dL Calcium panel 03/05/20 03/06/20 Range/Units 16:33 10:16 Calcium 8.3 L 8.4 (8.4-10.2) mg/dL Albumin 2.7 L 2.6 L (3.5-5.0) g/dL Pituitary panel 03/05/20 03/05/20 03/06/20 Range/Units 16:33 22:33 10:16 Sodium 136 L 137 137 (137-145) mmol/L Potassium 5.8 H 5.7 H 5.3 H (3.5-5.1) mmol/L Chloride 109 H 110 H 109 H (98-107) mmol/L Carbon Dioxide 25 23 23 (22-30) mmol/L BUN 31 H 28 H (7-17) mg/dL Creatinine 1.76 H 1.79 H (0.52-1.04) mg/dL Glucose 137 H 104 H (74-99) mg/dL Calcium 8.3 L 8.4 (8.4-10.2) mg/dL Adrenal panel 03/05/20 03/05/20 03/06/20 Range/Units 16:33 22:33 10:16 Sodium 136 L 137 137 (137-145) mmol/L Potassium 5.8 H 5.7 H 5.3 H (3.5-5.1) mmol/L Chloride 109 H 110 H 109 H (98-107) mmol/L Carbon Dioxide 25 23 23 (22-30) mmol/L BUN 31 H 28 H (7-17) mg/dL Creatinine 1.76 H 1.79 H (0.52-1.04) mg/dL Glucose 137 H 104 H (74-99) mg/dL Calcium 8.3 L 8.4 (8.4-10.2) mg/dL Total Bilirubin 0.8 0.7 (0.2-1.3) mg/dL AST 49 H 34 (14-36) U/L ALT 10 9 (4-34) U/L Alkaline Phosphatase 61 60 (38-126) U/L Total Protein 6.5 6.3 (6.3-8.2) g/dL Albumin 2.7 L 2.6 L (3.5-5.0) g/dL
[2020-03-06 16:57] LABS: Glucose,Whole Blood 128 mg/dL (75-99)
[2020-03-06 20:26] LABS: Glucose,Whole Blood 144 mg/dL (75-99)
--- NOTE | 2020-03-06 21:11 | P.HPIM ---
History of Present Illness H&P Date: 03/06/20 Chief Complaint: Drainage from the incision site Consultation: This is a 70 year patient currently at [facility] /followed by Dr. Han. Chronic stable medical conditions include CHF EF 55-60%, COPD, diabetes, fibromyalgia, hyperlipidemia, hypertension, chronic kidney disease stage III, rheumatoid arthritis, history of breast cancer with right sided mastectomy, peripheral ne uropathy, chronic anxiety depression, liver cirrhosis with portal hypertension.uses a wheelchair to get about GI bleed - right colectomy on January [address] Seaman. Also repair of incisional hernia. Patient has been treated for acute cellulitis at the abdominal wall incision site. Patient now presents with increasing drainage at the abdominal incision site. Appetite okay. No fever no chills. Patient's currently nonambulatory. Tired. Some general abdominal pain. No nausea vomiting. Review of systems: GEN.: Tired EYES: None HEENT: None NECK: None RESPIRATORY: None CARDIOVASCULAR: None GASTROINTESTINAL: As above GENITOURINARY: None MUSCULOSKELETAL: Joint pains LYMPHATICS: None HEMATOLOGICAL: None PSYCHIATRY: Anxious NEUROLOGICAL: Uses a wheelchair. Past medical history to include: CHF EF 55-60%, COPD, diabetes, fibromyalgia, hyperlipidemia, hypertension, chronic kidney disease stage III, rheumatoid arthritis, history of breast cancer with right sided mastectomy, peripheral neuropathy, chronic anxiety depression, liver cirrhosis with portal hypertension.uses a wheelchair to get about. Right hemicolectomy for GI bleed Social history: Lives at [facility] on the [address] Uses a wheelchair. Patient smoked from 1971 and stopped in December 2017. No alcohol. Physical examination: VITAL SIGNS: 98.2, 67, 20, 120/70, 94% room air GENERAL: BMI 49.3, laying in bed, tired EYES: Pupils equal. Conjunctiva pale. HEENT: External appearance of nose and ears normal, oral cavity grossly normal. NECK: JVD unable to assess; masses not palpable. HEART: First and second heart sounds are normal; mild edema. LUNGS: Respiratory rate increased; decreased breath sounds. ABDOMEN: Soft, some yellow drainage from the incision site with some local tenderness. liver spleen not palpable, no masses palpable. PSYCH: [Alert and oriented x3; mood and affect anxiety NEUROLOGICAL: Cranial nerves grossly intact; no facial asymmetry, LYMPHATICS: No lymph nodes palpable in the axilla and neck Investigations: White count 2.9 hemoglobin 7.7 platelets 107of 5.8 bun 31 and creatinine 1.76 UA positive for leukoesterase, WBC Previous testing: Bun 59 creatinine 2.7 on 02/19/2020 Assessment: -Acute infection/cellulitis of the abdominal wall incision site. Previous culture drawn Staphylococcus epidermidis. Significant resistance. -right colectomy, repair of incisional hernia, partial omentectomy. Recently for GI bleed -Chronic congestive heart failure from diastolic dysfunction EF 55-60% -COPD in an ex-smoker -Diabetes mellitus type 2 on oral hypoglycemic -Chronic fibromyalgia -Hyperlipidemia -Essential hypertension -Chronic kidney disease stage III from diabetic nephropathy and hypertensive nephrosclerosis -Rheumatoid arthritis -History of breast cancer with a right-sided mastectomy -Peripheral neuropathy secondary to diabetes -Chronic anxiety depression -Obesity -Liver cirrhosis with portal hypertension on Xifaxan -Pancytopenia from cirrhosis -Patient has a legal guardian-Calvin Whipple -Hyperkalemia seconded to kidney disease Plan: Start patient on daptomycin due to renal function compromise.. Local wound care. Home medications to continue. Diet as per surgery. Dr. Seaman consulted. Follow Past Medical History Past Medical History: Cancer, Heart Failure, COPD, Diabetes Mellitus, Fibromyalgia, Hyperlipidemia, Hypertension, Renal Disease, Rheumatoid Arthritis (RA), Seizure Disorder, Supraventricular Tachycardia (SVT) Additional Past Medical History / Comment(s): Breast cancer right-sided post mastectomy followed by chemotherapy, is independent diabetes mellitus type 2, peripheral neuropathy related to diabetes, COPD, liver cirrhosis, hypertension, hyperlipidemia, fibromyalgia, chronic kidney disease, rheumatoid arthritis, seizure disorder, history of SVT, diabetic peripheral neuropathy, chronic anxiety and depression, morbid obesity with a BMI of 58.5, previous history of GI bleed, diverticular disease, history of hepatic encephalopathy History of Any Multi-Drug Resistant Organisms: VRE Date of last positivie culture/infection: 05/11/18 MDRO Source:: VRE URINE Past Surgical History: Adenoidectomy, Appendectomy, Breast Surgery, Cholecystectomy, Hysterectomy, Orthopedic Surgery, Tonsillectomy, Tubal Ligation Additional Past Surgical History / Comment(s): masectomy right, ganglion cyst right hand, total hysterectomy (hx of tubal pregnancies), lower teeth extracted. Past Anesthesia/Blood Transfusion Reactions: No Reported Reaction Past Psychological History: Anxiety, Depression Additional Psychological History / Comment(s): Pt currently is at [facility] on [facility] for rehab. She needs assist with ADLS except feeds self. She states up until just lately she was getting up with a walker some. No experience. Did not work outside of the home. . No alcohol use Smoking Status: Former smoker Past Alcohol Use History: None Reported Additional Past Alcohol Use History / Comment(s): Pt started smoking in 1971 and qut in December 2017. Per patient she smoked 1-2 cigarettes a day after meals. Past Drug Use History: None Reported - Past Family History Father Family Medical History: Cancer, CVA/TIA Additional Family Medical History / Comment(s): 2000 from lung cancer Mother Family Medical History: Cancer, Dementia Additional Family Medical History / Comment(s): 2014 at age 86. Oral & Breast cancer Brother(s) Family Medical History: Asthma, Diabetes Mellitus, Fibromyalgia, Osteoarthritis (OA) Additional Family Medical History / Comment(s): Obesity. Joint replacements Medications and Allergies Home Medications Medication Instructions Recorded Confirmed Type Anastrozole [Arimidex] 1 mg PO DAILY@0900 09/30/14 03/05/20 History Sennosides [Senna] 8.6 mg PO BID@06,209904/02/18 03/05/20 History Pantoprazole [Protonix] 40 mg PO DAILY@0607/02/18 03/05/20 History Ferrous Sulfate [Iron (65 MG 325 mg PO DAILY@0900 08/16/18 03/05/20 History Elemental)] Acetaminophen [Tylenol] 650 mg PO Q4H PRN 08/24/19 03/05/20 History Dextran 70/Hypromellose [Gente[place] 1 drop BOTH EYES BID@0900,209908/24/19 03/05/20 History Tears 0.1%-0.3% Drop] Folic Acid 1 mg PO DAILY@89908/24/19 03/05/20 History Lactulose 20 gm PO BID@00,2099 PRN 08/24/19 03/05/20 History Multivitamins, Thera [Multivitamin 1 tab PO DAILY@0900 08/24/19 03/05/20 History (formulary)] Rifaximin [Xifaxan] 550 mg PO BID@0600,209908/24/19 03/05/20 History Thiamine [Vitamin B-1] 100 mg PO DAILY@0600 08/24/19 03/05/20 History Melatonin 10 mg PO HS PRN 10/25/19 03/05/20 History Oxymetazoline 0.05% Nasl [place] 1 spray NASAL Q15M PRN MDD 3 DOSES 10/25/19 03/05/20 History [Afrin 0.05% Nasal [place]] Sertraline HCl [Zoloft] 25 mg PO DAILY@0900 01/19/20 03/05/20 History Spironolactone [Aldactone] 50 mg PO DAILY@0600 01/19/20 03/05/20 History INSULIN LISPRO (humaLOG) [humaLOG] 4 units SQ TID@0800,1200,1700 02/05/20 03/05/20 History Metoprolol Tartrate [Lopressor] 12.5 mg PO BID@0900,2100 02/05/20 03/05/20 History Sodium Bicarbonate Tab 650 mg PO QID tab 02/11/20 03/05/20 Rx Darbepoetin Gurwinder [Aranesp] 40 mcg SQ SA 02/16/20 03/05/20 History Gabapentin [Neurontin] 100 mg PO TID@0900,1500,2100 #9 cap 02/19/20 03/05/20 Rx HYDROcodone/APAP 10-325MG [[place] 1 tab PO Q6HR PRN 3 Days #12 tab 02/19/20 03/05/20 Rx 10-325] oxyCODONE HCL [OxyCONTIN] 10 mg PO BID@0900,2100 #6 tab 02/19/20 03/05/20 Rx Cholecalciferol [Vitamin D3 (25 50 mcg PO DAILY 03/05/20 03/05/20 History Mcg = 1000 Iu)] Glucerna Shake 1 can PO BID@0900,1700 03/05/20 03/05/20 History Insulin Lispro [humaLOG Kwikpen] See Protocol SQ ACHS 03/05/20 03/05/20 History Midodrine [ProAmatine] 10 mg PO TID@0800,1200,1700 03/05/20 03/05/20 History Allergies Allergy/AdvReac Type Severity Reaction Status Date / Time cephalexin [From Keflex] Allergy Unknown Verified 03/05/20 18:05 duloxetine [From Cymbalta] Allergy Unknown Verified 03/05/20 18:05 Penicillins Allergy Rash/Hives Verified 03/05/20 18:05 phenobarbital Allergy Unknown Verified 03/05/20 18:05 phenytoin sodium Allergy Unknown Verified 03/05/20 18:05 [From Dilantin] phenytoin sodium extended Allergy Unknown Verified 03/05/20 18:05 [From Dilantin] primidone [From Mysoline] Allergy Unknown Verified 03/05/20 18:05 codeine AdvReac Nausea & Verified 03/05/20 18:05 Vomiting Physical Exam Vitals: Vital Signs Temp Pulse Pulse Resp BP BP Pulse Ox 03/06/20 00:21 97.9 F 62 141/77 99 03/05/20 22:00 98.1 F 64 18 133/66 96 03/05/20 20:30 98.1 F 57 L 18 121/52 95 03/05/20 19:30 58 L 18 126/65 94 L 03/05/20 18:30 68 20 126/65 93 L 03/05/20 17:00 62 20 118/62 93 L 03/05/20 16:06 98.2 F 67 20 120/70 94 L Intake and Output 03/05/20 03/06/20 03/06/20 22:59 06:59 14:59 Output Total 750 250 Balance -750 -250 Output: Urine 750 250 Other: Voiding Method Indwelling Catheter Weight 138.482 kg Results CBC & Chem 7: 03/06/20 10:16 03/06/20 10:16 Labs: Abnormal Lab Results - Last 24 Hours (Table) 03/05/20 03/05/20 03/05/20 Range/Units 16:33 16:33 17:49 WBC 2.9 L (3.8-10.6) k/uL RBC 2.84 L (3.80-5.40) m/uL Hgb 7.7 L (11.4-16.0) gm/dL Hct 24.5 L (34.0-46.0) % MCHC (31.0-37.0) g/dL RDW 18.9 H (11.5-15.5) % Plt Count 107 L (150-450) k/uL Lymphocytes # 0.6 L (1.0-4.8) k/uL Sodium 136 L (137-145) mmol/L Potassium 5.8 H (3.5-5.1) mmol/L Chloride 109 H (98-107) mmol/L BUN 31 H (7-17) mg/dL Creatinine 1.76 H (0.52-1.04) mg/dL Glucose 137 H (74-99) mg/dL Calcium 8.3 L (8.4-10.2) mg/dL AST 49 H (14-36) U/L Albumin 2.7 L (3.5-5.0) g/dL Urine Appearance Cloudy H (Clear) Urine Protein 1+ H (Negative) Urine Blood Small H (Negative) Ur Leukocyte Esterase Large H (Negative) Urine RBC 46 H (0-5) /hpf Urine WBC 116 H (0-5) /hpf Urine Bacteria Rare H (None) /hpf Urine Mucus Rare H (None) /hpf Stool Occult Blood (Negative) 03/05/20 03/05/20 03/05/20 Range/Units 18:30 22:33 22:33 WBC 3.1 L (3.8-10.6) k/uL RBC 2.98 L (3.80-5.40) m/uL Hgb 7.9 L (11.4-16.0) gm/dL Hct 28.0 L (34.0-46.0) % MCHC 28.4 L (31.0-37.0) g/dL RDW 18.7 H (11.5-15.5) % Plt Count 106 L (150-450) k/uL Lymphocytes # (1.0-4.8) k/uL Sodium (137-145) mmol/L Potassium 5.7 H (3.5-5.1) mmol/L Chloride 110 H (98-107) mmol/L BUN (7-17) mg/dL Creatinine (0.52-1.04) mg/dL Glucose (74-99) mg/dL Calcium (8.4-10.2) mg/dL AST (14-36) U/L Albumin (3.5-5.0) g/dL Urine Appearance (Clear) Urine Protein (Negative) Urine Blood (Negative) Ur Leukocyte Esterase (Negative) Urine RBC (0-5) /hpf Urine WBC (0-5) /hpf Urine Bacteria (None) /hpf Urine Mucus (None) /hpf Stool Occult Blood Positive H (Negative) Microbiology - Last 24 Hours (Table) 03/05/20 17:49 Urine Culture - Preliminary Urine,Voided Thrombosis Risk Factor Assmnt - Choose All That Apply Each Risk Factor Represents 2 Points: Age 61-74 years Thrombosis Risk Factor Assessment Total Risk Factor Score: 2 Thrombosis Risk Factor Assessment Level: Low Risk
[2020-03-06] MEDS: DAPTOmycin 500 MG in SODIUM CHLORIDE 0.9% 50 ML IVPB SCH (22:21)
[2020-03-07] MEDS: HYDROcodone/APAP 10-325MG 1 EACH TAB PO PRN ×3 (02:39→17:32)
[2020-03-07] MEDS: THIAMINE 100 MG TAB PO SCH (05:26)
[2020-03-07] MEDS: SENNOSIDES 8.6 MG TAB PO SCH ×2 (05:26→22:11)
[2020-03-07] MEDS: RIFAXIMIN 550 MG TABLET PO SCH ×2 (05:26→23:00)
[2020-03-07] MEDS: SPIRONOLACTONE 25 MG TAB PO SCH (05:26)
[2020-03-07 07:02] LABS: Glucose,Whole Blood 96 mg/dL (75-99)
[2020-03-07] MEDS: INSULIN ASPART (NovoLOG) 100 UNIT/ML VIAL SQ SCH ×5 (07:27→22:11)
[2020-03-07] MEDS: FERROUS SULFATE 325 MG TAB PO SCH (07:55)
[2020-03-07] MEDS: MIDODRINE 5 MG TAB PO SCH ×3 (07:55→17:16)
[2020-03-07] MEDS: FOLIC ACID 1 MG TAB PO SCH (07:55)
[2020-03-07] MEDS: GABAPENTIN 100 MG CAP PO SCH ×3 (07:55→22:11)
[2020-03-07] MEDS: ARTIFICIAL TEARS-HYPROMELLOSE DROPS 15 ML BTL BOTH EYES SCH ×2 (07:56→22:13)
[2020-03-07] MEDS: CHOLECALCIFEROL 25 MCG (1000 IU) TABLET PO SCH (07:56)
[2020-03-07] MEDS: oxyCODONE ER 10 MG TAB.ER.12H PO SCH ×2 (07:57→22:11)
[2020-03-07] MEDS: ANASTROZOLE 1 MG TAB PO SCH (07:58)
[2020-03-07] MEDS: SERTRALINE 25 MG TAB PO SCH (08:00)
[2020-03-07] MEDS: PANTOPRAZOLE 40 MG/10 ML VIAL IV SCH ×2 (08:00→22:12)
[2020-03-07] MEDS: METOPROLOL TARTRATE 12.5 MG TAB PO SCH ×2 (09:51→22:11)
[2020-03-07] MEDS: SODIUM BICARBONATE TAB 650 MG TAB PO SCH ×4 (09:51→22:28)
[2020-03-07] MEDS: MULTIVITAMINS, THERA 1 EACH TAB PO SCH (09:51)
--- NOTE | 2020-03-07 10:23 | P.PN ---
Subjective Progress Note Date: 03/07/20 Principal diagnosis: Abdominal wound Patient complaining of some vaginal itching and irritation at [place] catheter site. Tolerating diet. Mild abdominal discomfort at the wound site. Objective - Vital Signs Vital signs: Vital Signs Temp 98.3 F 03/07/20 08:00 Pulse 68 03/07/20 09:50 Resp 18 03/07/20 08:00 BP 122/57 03/07/20 08:00 Pulse Ox 98 03/07/20 08:00 Intake & Output 03/06/20 03/07/20 03/07/20 18:59 06:59 18:59 Output Total 270 550 Balance -270 -550 Weight 140 kg Output: Urine 210 550 Emesis 60 Other: Voiding Method Indwelling Catheter Indwelling Catheter # Emeses 1 - Exam Abdomen: Soft, nondistended, one by one by 4 cm wound infraumbilical, serous drainage, minimal tenderness - Labs CBC & Chem 7: 03/06/20 10:16 03/06/20 10:16 Labs: Abnormal Lab Results - Last 24 Hours (Table) 03/06/20 03/06/20 03/06/20 Range/Units 10:16 10:16 11:43 RBC 2.92 L (3.80-5.40) m/uL Hgb 7.8 L (11.4-16.0) gm/dL Hct 26.3 L (34.0-46.0) % MCHC 29.7 L (31.0-37.0) g/dL RDW 18.9 H (11.5-15.5) % Plt Count 111 L (150-450) k/uL Lymphocytes # 0.9 L (1.0-4.8) k/uL Potassium 5.3 H (3.5-5.1) mmol/L Chloride 109 H (98-107) mmol/L BUN 28 H (7-17) mg/dL Creatinine 1.79 H (0.52-1.04) mg/dL Glucose 104 H (74-99) mg/dL POC Glucose (mg/dL) 111 H (75-99) mg/dL Albumin 2.6 L (3.5-5.0) g/dL 03/06/20 03/06/20 Range/Units 16:55 20:25 RBC (3.80-5.40) m/uL Hgb (11.4-16.0) gm/dL Hct (34.0-46.0) % MCHC (31.0-37.0) g/dL RDW (11.5-15.5) % Plt Count (150-450) k/uL Lymphocytes # (1.0-4.8) k/uL Potassium (3.5-5.1) mmol/L Chloride (98-107) mmol/L BUN (7-17) mg/dL Creatinine (0.52-1.04) mg/dL Glucose (74-99) mg/dL POC Glucose (mg/dL) 128 H 144 H (75-99) mg/dL Albumin (3.5-5.0) g/dL Microbiology - Last 24 Hours (Table) 03/05/20 22:33 Blood Culture - Preliminary Blood No Growth after 24 hours 03/05/20 17:49 Urine Culture - Preliminary Urine,Voided Group D Enterococcus 03/05/20 16:33 Blood Culture - Preliminary Blood No Growth after 24 hours Assessment and Plan (1) Open abdominal wall wound Narrative/Plan: Continue local wound care at this time. We'll provide short course of oral Diflucan for suspected [place] infection. Increase activity. Continue diet. Current Visit: Yes Status: Acute Code(s): S31.109A - UNSP OPN WND ABD WALL, UNSP Q W/O PENET PERIT CAV, INIT SNOMED Code(s): 567820052
[2020-03-07 11:30] LABS: Glucose,Whole Blood 124 mg/dL (75-99)
[2020-03-07] MEDS ORDERED: DARBEPOETIN ALFA 40 MCG/0.4 ML SYRINGE SQ SCH (12:00)
[2020-03-07] MEDS: FLUCONAZOLE 100 MG TAB PO SCH (13:41)
[2020-03-07] MEDS: SODIUM CHLORIDE 0.9% 1,000 ML IV SCH ×2 (13:42→15:23)
[2020-03-07 16:49] LABS: Glucose,Whole Blood 146 mg/dL (75-99)
--- NOTE | 2020-03-07 19:19 | P.PN ---
Progress Note - Text Progress Note Date: 03/07/20 Chief Complaint: Drainage from the incision site Consultation: This is a 70 year patient currently at [facility] /followed by Dr. Han. Chronic stable medical conditions include CHF EF 55-60%, COPD, diabetes, fibromyalgia, hyperlipidemia, hypertension, chronic kidney disease stage III, rheumatoid arthritis, history of breast cancer with right sided mastectomy, peripheral neuropathy, chronic anxiety depression, liver cirrhosis with portal hypertension.uses a wheelchair to get about GI bleed - right colectomy on January [address] Seaman. Also repair of incisional hernia. Patient has been treated for acute cellulitis at the abdominal wall incision site. Patient now presents with increasing drainage at the abdominal incision site. Appetite okay. No fever no chills. Patient's currently nonambulatory. Tired. Some general abdominal pain. No nausea vomiting. Started on IV daptomycin. Today-some pain. On a full liquid diet. No fever. In bed. Review of systems: Was done for constitutional, cardiovascular, GI, pulmonary. relevant finding as above Active Medications Acetaminophen (Acetaminophen Tab 325 Mg Tab) 650 mg PO Q4H PRN PRN Reason: Fever and/ or Pain Hydrocodone Bitart/Acetaminophen (Hydrocodone/Apap 10-325mg 1 Each Tab) 1 each PO Q6HR PRN PRN Reason: Pain Last Admin: 03/07/20 17:32 Dose: 1 each Documented by: Anastrozole (Anastrozole 1 Mg Tab) 1 mg PO DAILY@0900 [facility] Last Admin: 03/07/20 07:58 Dose: 1 mg Documented by: Artificial Tears (Artificial Tears-Hypromellose Drops 15 Ml Btl) 1 drops BOTH EYES BID@0900,2100 [facility] Last Admin: 03/07/20 07:56 Dose: 1 drops Documented by: Cholecalciferol (Cholecalciferol 25 Mcg (1000 Iu) Tablet) 50 mcg PO DAILY [facility] Last Admin: 03/07/20 07:56 Dose: 50 mcg Documented by: Darbepoetin Gurwinder (Darbepoetin Gurwinder 40 Mcg/0.4 Ml Syringe) 40 mcg SQ SA [facility] Last Admin: 03/07/20 13:41 Dose: 40 mcg Documented by: Ferrous Sulfate (Ferrous Sulfate 325 Mg Tab) 325 mg PO DAILY@0900 [facility] Last Admin: 03/07/20 07:55 Dose: 325 mg Documented by: Fluconazole (Fluconazole 100 Mg Tab) 100 mg PO DAILY [facility] Stop: 03/09/20 09:01 Last Admin: 03/07/20 13:41 Dose: 100 mg Documented by: Folic Acid (Folic Acid 1 Mg Tab) 1 mg PO DAILY@0900 [facility] Last Admin: 03/07/20 07:55 Dose: 1 mg Documented by: Gabapentin (Gabapentin 100 Mg Cap) 100 mg PO TID@0900,1500,2100 [facility] Last Admin: 03/07/20 15:22 Dose: 100 mg Documented by: Sodium Chloride (Saline 0.9%) 1,000 mls @ 100 mls/hr IV .Q10H [facility] Last Admin: 03/07/20 15:23 Dose: 100 mls/hr Documented by: Daptomycin 500 mg/ Sodium (Chloride) 50 mls @ 100 mls/hr IVPB Q24H [facility]; Protocol Last Admin: 03/06/20 22:21 Dose: 100 mls/hr Documented by: Insulin Aspart (Insulin Aspart (Novolog) 100 Unit/Ml Vial) 0 unit SQ ACHS [facility]; Protocol Last Admin: 03/07/20 17:27 Dose: 1 unit Documented by: Lactulose (Lactulose 20 Gm/30 Ml Cup) 20 gm PO BID@0900,2100 PRN PRN Reason: Constipation Melatonin (Melatonin 5 Mg Tablet) 10 mg PO HS PRN PRN Reason: Insomnia Metoprolol Tartrate (Metoprolol Tartrate 12.5 Mg Tab) 12.5 mg PO BID@0900,2100 [facility] Last Admin: 03/07/20 09:51 Dose: 12.5 mg Documented by: Midodrine (Midodrine 5 Mg Tab) 10 mg PO TID@0800,1200,1700 [facility] Last Admin: 03/07/20 17:16 Dose: 10 mg Documented by: Multivitamins (Multivitamins, Thera 1 Each Tab) 1 each PO DAILY@0900 [facility] Last Admin: 03/07/20 09:51 Dose: 1 each Documented by: Naloxone HCl (Naloxone 0.4 Mg/Ml 1 Ml Vial) 0.2 mg IV Q2M PRN PRN Reason: Opioid Reversal Ondansetron HCl (Ondansetron 4 Mg/2 Ml Vial) 4 mg IVP Q6HR PRN PRN Reason: Nausea And Vomiting Last Admin: 03/06/20 12:03 Dose: 4 mg Documented by: Oxycodone HCl (Oxycodone Er 10 Mg Tab.Er.12h) 10 mg PO BID@0900,2100 [facility] Last Admin: 03/07/20 07:57 Dose: 10 mg Documented by: Oxymetazoline HCl (Oxymetazoline 0.05% Nasl [place] 1 [place] Bottle) 1 spray NASAL Q15M PRN PRN Reason: BLOODY NOSE Pantoprazole Sodium (Pantoprazole 40 Mg/10 Ml Vial) 40 mg IV BID [facility] Last Admin: 03/07/20 08:00 Dose: 40 mg Documented by: Rifaximin (Rifaximin 550 Mg Tablet) 550 mg PO BID@0600,2100 [facility] Stop: 04/04/20 21:01 Last Admin: 03/07/20 05:26 Dose: 550 mg Documented by: Senna (Sennosides 8.6 Mg Tab) 8.6 mg PO BID@0600,2100 [facility] Last Admin: 03/07/20 05:26 Dose: 8.6 mg Documented by: Sertraline HCl (Sertraline 25 Mg Tab) 25 mg PO DAILY@0900 [facility] Last Admin: 03/07/20 08:00 Dose: 25 mg Documented by: Sodium Bicarbonate (Sodium Bicarbonate Tab 650 Mg Tab) 650 mg PO 0900,1300,1700,2100 [facility] Last Admin: 03/07/20 17:16 Dose: 650 mg Documented by: Spironolactone (Spironolactone 25 Mg Tab) 50 mg PO DAILY@0600 [facility] Last Admin: 03/07/20 05:26 Dose: 50 mg Documented by: Thiamine HCl (Thiamine 100 Mg Tab) 100 mg PO DAILY@0600 [facility] Last Admin: 03/07/20 05:26 Dose: 100 mg Documented by: Past medical history to include: CHF EF 55-60%, COPD, diabetes, fibromyalgia, hyperlipidemia, hypertension, chronic kidney disease stage III, rheumatoid arthritis, history of breast cancer with right sided mastectomy, peripheral neuropathy, chronic anxiety depression, liver cirrhosis with portal hypertension.uses a wheelchair to get about. Right hemicolectomy for GI bleed Social history: Lives at [facility] Uses a wheelchair. Patient smoked from 1971 and stopped in December 2017. No alcohol. Physical examination: VITAL SIGNS: 98.3, 55, 18, 03/06/1954, 98% room air GENERAL: reclining in bed, EYES: Pupils equal. Conjunctiva pale. HEENT: External appearance of nose and ears normal, oral cavity grossly normal. NECK: JVD unable to assess; masses not palpable. HEART: First and second heart sounds are normal; mild edema. LUNGS: Respiratory rate increased; decreased breath sounds. ABDOMEN: Soft, some yellow drainage from the incision site with some local tenderness. liver spleen not palpable, no masses palpable. PSYCH: [Alert and oriented x3; mood and affect anxiety Investigations: White count 2.9 hemoglobin 7.7 platelets 107of 5.8 bun 31 and creatinine 1.76 UA positive for leukoesterase, WBC. Culture-group D enterococcus Previous testing: Bun 59 creatinine 2.7 on 02/19/2020 Assessment: -Acute infection/cellulitis of the abdominal wall incision site. Previous culture drawn Staphylococcus epidermidis. Significant resistance. Repeat cultures pending -right colectomy, repair of incisional hernia, partial omentectomy. Recently for GI bleed -Chronic congestive heart failure from diastolic dysfunction EF 55-60% -COPD in an ex-smoker -Diabetes mellitus type 2 on oral hypoglycemic -Chronic fibromyalgia -Hyperlipidemia -Essential hypertension -Chronic kidney disease stage III from diabetic nephropathy and hypertensive nephrosclerosis -Rheumatoid arthritis -History of breast cancer with a right-sided mastectomy -Peripheral neuropathy secondary to diabetes -Chronic anxiety depression -Obesity -Liver cirrhosis with portal hypertension on Xifaxan -Pancytopenia from cirrhosis -Patient has a legal guardian-Calvin Whipple -Hyperkalemia seconded to kidney disease Plan: on daptomycin due to renal function compromise.. Local wound care. Full liquid diet. Other medications to continue. ID consulted.
[2020-03-07 20:22] LABS: Glucose,Whole Blood 145 mg/dL (75-99)
[2020-03-07 20:34] LABS: African American GFR (CKD) 34 (>60 ml/min/1.73 sqM); Anion Gap 4 mmol/L; Blood Urea Nitrogen 26 mg/dL (7-17); Calcium 8.2 mg/dL (8.4-10.2); Carbon Dioxide 24 mmol/L (22-30); Chloride 108 mmol/L (98-107); Glucose 137 mg/dL (74-99); Non-African American GFR(CKD) 29 (>60 ml/min/1.73 sqM); Potassium 5.5 mmol/L (3.5-5.1); Sodium 136 mmol/L (137-145)
[2020-03-07] MEDS ORDERED: SODIUM POLYSTYRENE SULFONATE 15 GM/60 ML BOTTLE PO STA (20:52)
[2020-03-07] MEDS: DAPTOmycin 500 MG in SODIUM CHLORIDE 0.9% 50 ML IVPB SCH (22:28)
[2020-03-08] MEDS: HYDROcodone/APAP 10-325MG 1 EACH TAB PO PRN ×2 (01:23→12:17)
[2020-03-08] MEDS: SENNOSIDES 8.6 MG TAB PO SCH ×2 (06:11→22:45)
[2020-03-08] MEDS: RIFAXIMIN 550 MG TABLET PO SCH ×2 (06:15→22:44)
[2020-03-08] MEDS: THIAMINE 100 MG TAB PO SCH (06:15)
[2020-03-08] MEDS: SPIRONOLACTONE 25 MG TAB PO SCH (06:15)
[2020-03-08 06:57] LABS: Glucose,Whole Blood 105 mg/dL (75-99)
[2020-03-08] MEDS: INSULIN ASPART (NovoLOG) 100 UNIT/ML VIAL SQ SCH ×4 (07:16→23:15)
[2020-03-08] MEDS: oxyCODONE ER 10 MG TAB.ER.12H PO SCH ×2 (08:52→22:43)
[2020-03-08] MEDS: SODIUM BICARBONATE TAB 650 MG TAB PO SCH ×4 (08:53→22:43)
[2020-03-08] MEDS: FLUCONAZOLE 100 MG TAB PO SCH (08:53)
[2020-03-08] MEDS: FERROUS SULFATE 325 MG TAB PO SCH (08:53)
[2020-03-08] MEDS: METOPROLOL TARTRATE 12.5 MG TAB PO SCH ×2 (08:53→22:43)
[2020-03-08] MEDS: GABAPENTIN 100 MG CAP PO SCH ×3 (08:53→22:44)
[2020-03-08] MEDS: FOLIC ACID 1 MG TAB PO SCH (08:53)
[2020-03-08] MEDS: MULTIVITAMINS, THERA 1 EACH TAB PO SCH (08:54)
[2020-03-08] MEDS: CHOLECALCIFEROL 25 MCG (1000 IU) TABLET PO SCH (08:54)
[2020-03-08] MEDS: MIDODRINE 5 MG TAB PO SCH ×3 (08:54→16:03)
[2020-03-08] MEDS: PANTOPRAZOLE 40 MG/10 ML VIAL IV SCH ×2 (08:55→22:42)
[2020-03-08] MEDS: SERTRALINE 25 MG TAB PO SCH (08:56)
[2020-03-08] MEDS: ANASTROZOLE 1 MG TAB PO SCH (08:56)
[2020-03-08] MEDS: ARTIFICIAL TEARS-HYPROMELLOSE DROPS 15 ML BTL BOTH EYES SCH ×2 (08:56→22:45)
--- NOTE | 2020-03-08 10:03 | P.PN ---
Subjective Progress Note Date: 03/08/20 Principal diagnosis: Abdominal wound Patient complaining of diarrhea however was given Kayexalate for hyperkalemia. Denies abdominal pain. Vaginal itching improved. Cultures from wound still pending. Objective - Vital Signs Vital signs: Vital Signs Temp 98.3 F 03/08/20 09:04 Pulse 68 03/08/20 02:00 Resp 20 03/08/20 02:00 BP 103/54 03/08/20 02:00 Pulse Ox 98 03/08/20 02:00 Intake & Output 03/07/20 03/08/20 03/08/20 18:59 06:59 18:59 Intake Total 2280 400 Output Total 200 Balance 2080 400 Weight 147 kg Intake: IV 1200 Sodium Chloride 0.9% 1, 1200 000 ml @ 100 mls/hr IV . Q10H [facility] Rx#:[id number] Oral 1080 400 Output: Urine 200 Other: Voiding Method Indwelling Catheter Indwelling Catheter Indwelling Catheter # Voids 800 # Bowel Movements 1 2 - Exam Abdomen: Soft, nondistended, serous drainage from incision, minimal tenderness - Labs CBC & Chem 7: 03/06/20 10:16 03/08/20 05:18 Labs: Abnormal Lab Results - Last 24 Hours (Table) 03/07/20 03/07/20 03/07/20 Range/Units 11:25 16:48 19:33 Sodium 136 L (137-145) mmol/L Potassium 5.5 H (3.5-5.1) mmol/L Chloride 108 H (98-107) mmol/L BUN 26 H (7-17) mg/dL Creatinine 1.75 H (0.52-1.04) mg/dL Glucose 137 H (74-99) mg/dL POC Glucose (mg/dL) 124 H 146 H (75-99) mg/dL Calcium 8.2 L (8.4-10.2) mg/dL 03/07/20 03/08/20 Range/Units 20:06 06:56 Sodium (137-145) mmol/L Potassium (3.5-5.1) mmol/L Chloride (98-107) mmol/L BUN (7-17) mg/dL Creatinine (0.52-1.04) mg/dL Glucose (74-99) mg/dL POC Glucose (mg/dL) 145 H 105 H (75-99) mg/dL Calcium (8.4-10.2) mg/dL Microbiology - Last 24 Hours (Table) 03/07/20 10:02 Gram Stain - Preliminary Abdomen Wound Culture - Preliminary 03/05/20 22:33 Blood Culture - Preliminary Blood No Growth after 48 hours 03/05/20 16:33 Blood Culture - Preliminary Blood No Growth after 48 hours 03/07/20 10:02 Anaerobic Culture - Preliminary Abdomen Assessment and Plan (1) Open abdominal wall wound Narrative/Plan: Patient doing better. Diarrhea related to Kayexalate. Follow labs. Await cultures. Continue antibiotics. Current Visit: Yes Status: Acute Code(s): S31.109A - UNSP OPN WND ABD WALL, UNSP Q W/O PENET PERIT CAV, INIT SNOMED Code(s): 571726346
[2020-03-08 11:21] LABS: Glucose,Whole Blood 153 mg/dL (75-99)
[2020-03-08] MEDS: SODIUM CHLORIDE 0.9% 1,000 ML IV SCH ×2 (12:12→17:37)
--- NOTE | 2020-03-08 16:24 | US ---
EXAMINATION TYPE: US venous doppler duplex LE DATE OF EXAM: 03/08/2020 3:59 PM COMPARISON: NONE CLINICAL HISTORY: edema lower extremities. edema bilateral legs SIDE PERFORMED: bilateral TECHNIQUE: The lower extremity deep venous system is examined utilizing real time linear array sonog rubio with graded compression, doppler sonography and color-flow sonography. VESSELS IMAGED: Common Femoral Vein Deep Femoral Vein Greater Saphenous Vein * Femoral Vein Popliteal Vein Small Saphenous Vein * Proximal Calf Veins (* superficial vessels) Right Leg: Technical limitations due to patient's body habitus, morbidly obese and large amount of edema. Patient unable to tolerate any imaging behind knee, unable to visualize popliteal vein. Patie nt unable to tolerate compression femoral vein. no evidence of DVT as visualized Left Leg: Technical limitations due to patient's body habitus, morbidly obese and large amount of edema. Patient unable to tolerate compression femoral vein. no evidence of DVT as visualized IMPRESSION: Limited exam shows no evidence of deep vein thrombosis in both legs.
[2020-03-08 16:36] LABS: Glucose,Whole Blood 150 mg/dL (75-99)
[2020-03-08 20:41] LABS: Glucose,Whole Blood 173 mg/dL (75-99)
[2020-03-08] MEDS ORDERED: FUROSEMIDE 10 MG/ML 10 ML VIAL IV STA (21:00)
--- NOTE | 2020-03-08 21:00 | P.PN ---
Progress Note - Text Progress Note Date: 03/08/20 Chief Complaint: Drainage from the incision site Consultation: This is a 70 year patient currently at [facility] /followed by Dr. Han. Chronic stable medical conditions include CHF EF 55-60%, COPD, diabetes, fibromyalgia, hyperlipidemia, hypertension, chronic kidney disease stage III, rheumatoid arthritis, history of breast cancer with right sided mastectomy, peripheral neuropathy, chronic anxiety depression, liver cirrhosis with portal hypertension.uses a wheelchair to get about GI bleed - right colectomy on January [address] Seaman. Also repair of incisional hernia. Patient has been treated for acute cellulitis at the abdominal wall incision site. Patient now presents with increasing drainage at the abdominal incision site. Appetite okay. No fever no chills. Patient's currently nonambulatory. Tired. Some general abdominal pain. No nausea vomiting. Started on IV daptomycin. Today-some drainage from the incision site. Eating about 50% of her meal. Lower extremity edema. Review of systems: Was done for constitutional, cardiovascular, GI, pulmonary. relevant finding as above Active Medications Acetaminophen (Acetaminophen Tab 325 Mg Tab) 650 mg PO Q4H PRN PRN Reason: Fever and/ or Pain Hydrocodone Bitart/Acetaminophen (Hydrocodone/Apap 10-325mg 1 Each Tab) 1 each PO Q6HR PRN PRN Reason: Pain Last Admin: 03/08/20 12:17 Dose: 1 each Documented by: Anastrozole (Anastrozole 1 Mg Tab) 1 mg PO DAILY@0900 [facility] Last Admin: 03/08/20 08:56 Dose: 1 mg Documented by: Artificial Tears (Artificial Tears-Hypromellose Drops 15 Ml Btl) 1 drops BOTH EYES BID@0900,2100 [facility] Last Admin: 03/08/20 08:56 Dose: 1 drops Documented by: Cholecalciferol (Cholecalciferol 25 Mcg (1000 Iu) Tablet) 50 mcg PO DAILY [facility] Last Admin: 03/08/20 08:54 Dose: 50 mcg Documented by: Darbepoetin Gurwinder (Darbepoetin Gurwinder 40 Mcg/0.4 Ml Syringe) 40 mcg SQ SA [facility] Last Admin: 03/07/20 13:41 Dose: 40 mcg Documented by: Ferrous Sulfate (Ferrous Sulfate 325 Mg Tab) 325 mg PO DAILY@0900 [facility] Last Admin: 03/08/20 08:53 Dose: 325 mg Documented by: Fluconazole (Fluconazole 100 Mg Tab) 100 mg PO DAILY [facility] Stop: 03/09/20 09:01 Last Admin: 03/08/20 08:53 Dose: 100 mg Documented by: Folic Acid (Folic Acid 1 Mg Tab) 1 mg PO DAILY@0900 [facility] Last Admin: 03/08/20 08:53 Dose: 1 mg Documented by: Gabapentin (Gabapentin 100 Mg Cap) 100 mg PO TID@0900,1500,2100 [facility] Last Admin: 03/08/20 16:04 Dose: 100 mg Documented by: Sodium Chloride (Saline 0.9%) 1,000 mls @ 20 mls/hr IV .Q24H [facility] Last Admin: 03/08/20 17:37 Dose: 20 mls/hr Documented by: Daptomycin 500 mg/ Sodium (Chloride) 50 mls @ 100 mls/hr IVPB Q24H [facility]; Protocol Last Admin: 03/07/20 22:28 Dose: 100 mls/hr Documented by: Insulin Aspart (Insulin Aspart (Novolog) 100 Unit/Ml Vial) 0 unit SQ ACHS [facility]; Protocol Last Admin: 03/08/20 17:31 Dose: 1 unit Documented by: Lactulose (Lactulose 20 Gm/30 Ml Cup) 20 gm PO BID@0900,2100 PRN PRN Reason: Constipation Melatonin (Melatonin 5 Mg Tablet) 10 mg PO HS PRN PRN Reason: Insomnia Metoprolol Tartrate (Metoprolol Tartrate 12.5 Mg Tab) 12.5 mg PO BID@0900,2100 [facility] Last Admin: 03/08/20 08:53 Dose: 12.5 mg Documented by: Midodrine (Midodrine 5 Mg Tab) 10 mg PO TID@0800,1200,1700 [facility] Last Admin: 03/08/20 16:03 Dose: 10 mg Documented by: Multivitamins (Multivitamins, Thera 1 Each Tab) 1 each PO DAILY@0900 [facility] Last Admin: 03/08/20 08:54 Dose: 1 each Documented by: Naloxone HCl (Naloxone 0.4 Mg/Ml 1 Ml Vial) 0.2 mg IV Q2M PRN PRN Reason: Opioid Reversal Ondansetron HCl (Ondansetron 4 Mg/2 Ml Vial) 4 mg IVP Q6HR PRN PRN Reason: Nausea And Vomiting Last Admin: 03/06/20 12:03 Dose: 4 mg Documented by: Oxycodone HCl (Oxycodone Er 10 Mg Tab.Er.12h) 10 mg PO BID@0900,2100 [facility] Last Admin: 03/08/20 08:52 Dose: 10 mg Documented by: Oxymetazoline HCl (Oxymetazoline 0.05% Nasl [place] 1 [place] Bottle) 1 spray NASAL Q15M PRN PRN Reason: BLOODY NOSE Pantoprazole Sodium (Pantoprazole 40 Mg/10 Ml Vial) 40 mg IV BID [facility] Last Admin: 03/08/20 08:55 Dose: 40 mg Documented by: Rifaximin (Rifaximin 550 Mg Tablet) 550 mg PO BID@0600,2100 [facility] Stop: 04/04/20 21:01 Last Admin: 03/08/20 06:15 Dose: 550 mg Documented by: Senna (Sennosides 8.6 Mg Tab) 8.6 mg PO BID@0600,2100 [facility] Last Admin: 03/08/20 06:11 Dose: Not Given Documented by: Sertraline HCl (Sertraline 25 Mg Tab) 25 mg PO DAILY@0900 [facility] Last Admin: 03/08/20 08:56 Dose: 25 mg Documented by: Sodium Bicarbonate (Sodium Bicarbonate Tab 650 Mg Tab) 650 mg PO 0900,1300,1700,2100 [facility] Last Admin: 03/08/20 16:03 Dose: 650 mg Documented by: Spironolactone (Spironolactone 25 Mg Tab) 50 mg PO DAILY@0600 [facility] Last Admin: 03/08/20 06:15 Dose: 50 mg Documented by: Thiamine HCl (Thiamine 100 Mg Tab) 100 mg PO DAILY@0600 [facility] Last Admin: 03/08/20 06:15 Dose: 100 mg Documented by: Past medical history to include: CHF EF 55-60%, COPD, diabetes, fibromyalgia, hyperlipidemia, hypertension, chronic kidney disease stage III, rheumatoid arthritis, history of breast cancer with right sided mastectomy, peripheral neuropathy, chronic anxiety depression, liver cirrhosis with portal hypertension.uses a wheelchair to get about. Right hemicolectomy for GI bleed Social history: Lives at [facility] Uses a wheelchair. Patient smoked from 1971 and stopped in December 2017. No alcohol. Physical examination: VITAL SIGNS: 97.9, 63, 17, 106/58, 96% room air GENERAL: reclining in bed, awake EYES: Pupils equal. Conjunctiva pale. HEENT: External appearance of nose and ears normal, oral cavity grossly normal. NECK: JVD unable to assess; masses not palpable. HEART: First and second heart sounds are normal; mild edema. LUNGS: Respiratory rate increased; decreased breath sounds. ABDOMEN: Soft, some drainage from the incision site with some local tenderness. liver spleen not palpable, no masses palpable. PSYCH: [Alert and oriented x3; mood and affect anxiety Investigations: Doppler ultrasound: Negative for DVT White count 2.9 hemoglobin 7.7 platelets 107of 5.8 bun 31 and creatinine 1.76 UA positive for leukoesterase, WBC. Culture-group D enterococcus Abdominal wound culture-pending Previous testing: Bun 59 creatinine 2.7 on 02/19/2020 Assessment: -Acute infection/cellulitis of the abdominal wall incision site. Previous culture drawn Staphylococcus epidermidis. Significant resistance. Repeat cultures pending -right colectomy, repair of incisional hernia, partial omentectomy. Recently for GI bleed -Chronic congestive heart failure from diastolic dysfunction EF 55-60% -COPD in an ex-smoker -Diabetes mellitus type 2 on oral hypoglycemic -Chronic fibromyalgia -Hyperlipidemia -Essential hypertension -Chronic kidney disease stage III from diabetic nephropathy and hypertensive nephrosclerosis -Rheumatoid arthritis -History of breast cancer with a right-sided mastectomy -Peripheral neuropathy secondary to diabetes -Chronic anxiety depression -Obesity -Liver cirrhosis with portal hypertension on Xifaxan -Pancytopenia from cirrhosis -Patient has a legal guardian-Calvin Whipple -Hyperkalemia seconded to kidney disease Plan: Continue full liquid diet. Continue daptomycin. Wound cultures pending. Follow with ID. DC IV fluids. Give 1 dose of IV Lasix.
[2020-03-08 21:55] LABS: African American GFR (CKD) 34 (>60 ml/min/1.73 sqM); Anion Gap 4 mmol/L; Blood Urea Nitrogen 22 mg/dL (7-17); Calcium 8.2 mg/dL (8.4-10.2); Carbon Dioxide 26 mmol/L (22-30); Chloride 109 mmol/L (98-107); Glucose 155 mg/dL (74-99); Non-African American GFR(CKD) 30 (>60 ml/min/1.73 sqM); Sodium 139 mmol/L (137-145)
[2020-03-08 22:20] LABS: Potassium 5.2 mmol/L (3.5-5.1)
[2020-03-08] MEDS: DAPTOmycin 500 MG in SODIUM CHLORIDE 0.9% 50 ML IVPB SCH (22:42)
[2020-03-08] MEDS ORDERED: SODIUM POLYSTYRENE SULFONATE 15 GM/60 ML BOTTLE PO STA (22:54)
--- NOTE | 2020-03-08 22:56 | CONS ---
CONSULTATION DATE OF SERVICE: 03/08/2020 REASON FOR STAY: 1. Infected abdominal wall wound. 2. UTI. HISTORY OF PRESENT ILLNESS: The patient is a 70-year-old female. This patient who did have a history of a right colectomy for GI bleed and angiodysplasia on 01/27/2020. The patient seemed to have a problem with seroma at the middle part of her abdominal incision with a previous culture positive for Staph epi. The patient's local care was advised with the wound VAC and she has been advised daptomycin at the [facility]. The patient is now being brought back to the ER with concern for the patient having abdominal pain around her abdominal wound site, more of a dull aching 3 to 4 out of 10 with no radiation and with some drainage. The patient also noticed to be anemic though did not have any black tarry stools. No nausea, no vomiting. On presentation to the hospital, the patient has been afebrile. The patient did have a leukopenia with white count is currently normal. Her creatinine was elevated 1.76. Stool for occult blood was positive. Urine is positive. Urine now showing Enterococcus. She also had a culture obtained from abdominal incision which is currently pending. Patient has been started on daptomycin. Infectious was consulted last evening for further management of antibiotic therapy. REVIEW OF SYSTEMS: Positive points have been mentioned in HPI. Rest of the systems are negative. PAST MEDICAL HISTORY: Diabetes mellitus, fibromyalgia, hyperlipidemia, hypertension, renal insufficiency, infected abdominal wall hematoma, seroma breast cancer. PAST SURGICAL HISTORY: Right-sided mastectomy, adenoidectomy, appendectomy, cholecystectomy, hysterectomy, tonsillectomy, and right hemicolectomy social. HISTORY: Remote history of smoking. No drinking or drug use. FAMILY HISTORY: No pertinent findings noticed. ALLERGIES: ALLERGIES TO CEPHALEXIN, PENICILLIN, PHENOBARBITAL, CODEINE. MEDICATIONS: Include the patient is currently on Tylenol, [place], Arimidex, daptomycin 5 mg every 4 hours, iron sulfate, Fluconazole, NovoLog, Melatonin, Theragran, Narcan, Zofran, Protonix, Senokot, Zoloft, Aldactone. PHYSICAL EXAMINATION: Blood pressure 113/72 with a pulse of 69. Temp is 97.9. She is 100% on room air. General description is an elderly female lying in bed in no distress. No tachypnea or accessory muscles of respiration use. HEENT: Shows pallor. No scleral icterus. Oral mucous membranes dry. NECK: Trachea central. No thyromegaly. LUNGS: Unlabored breathing, decreased breath sounds in the bases, with no wheeze or crackles. HEART S1, S2. Regular rate and rhythm. ABDOMEN: Soft, midline wound around the periumbilical area with minimal drainage which is . No surrounding swelling or redness or significant tenderness. EXTREMITIES: Some trace edema of the feet. SKIN examination: No rash or mass palpable. NEUROLOGICAL: Patient is awake, alert, oriented times three. Mood and affect normal. LABS: Hemoglobin 7.8, white count 3.9, BUN of 26, creatinine 1.75. Urine is positive. Culture now showing Enterococcus. Abdominal cultures are currently pending. Previous culture grew from the same site was Staph epidermidis. DIAGNOSTIC IMPRESSION AND PLAN: 1. Patient admitted to the hospital with a chronic nonhealing wound to the abdominal area in this patient status post right hemicolectomy with concern for infected seroma. Previous culture positive for staph epidermidis that was treated with daptomycin. 2. Patient with enterococcus urinary tract infection, sensitivities pending. PLAN: 1. Keep the patient on daptomycin 4 mg/kg. 2. May benefit from a repeat CT to evaluate the area of redness on the incision site to ensure the patient has not developed any abscess that may need to be drained. 3. We will follow on clinical condition and culture to further adjust medication if needed. Thank you for this consultation. Will follow this patient along with you. MMODL / IJN: [id number] /
[2020-03-08 23:08] LABS: Glucose,Whole Blood 163 mg/dL (75-99)
[2020-03-09] MEDS: HYDROcodone/APAP 10-325MG 1 EACH TAB PO PRN ×3 (03:28→15:34)
[2020-03-09] MEDS: SENNOSIDES 8.6 MG TAB PO SCH ×2 (05:39→20:52)
[2020-03-09] MEDS: RIFAXIMIN 550 MG TABLET PO SCH ×2 (05:54→20:53)
[2020-03-09] MEDS: THIAMINE 100 MG TAB PO SCH (05:54)
[2020-03-09] MEDS: SPIRONOLACTONE 25 MG TAB PO SCH (05:54)
[2020-03-09 06:40] LABS: Anisocytosis Slight; HCT 23.4 % (34.0-46.0); HGB 7.2 gm/dL (11.4-16.0); Hypochromasia Marked; MCH 27.5 pg (25.0-35.0); MCHC 30.7 g/dL (31.0-37.0); MCV 89.5 fL (80.0-100.0); RBC 2.61 m/uL (3.80-5.40); RDW 19.2 % (11.5-15.5); WBC 2.8 k/uL (3.8-10.6)
[2020-03-09 07:01] LABS: Platelet Count 85 k/uL (150-450)
[2020-03-09 07:20] LABS: Glucose,Whole Blood 143 mg/dL (75-99)
[2020-03-09] MEDS: GABAPENTIN 100 MG CAP PO SCH ×3 (08:17→20:51)
[2020-03-09] MEDS: MIDODRINE 5 MG TAB PO SCH ×3 (08:17→18:05)
[2020-03-09] MEDS: FLUCONAZOLE 100 MG TAB PO SCH (08:17)
[2020-03-09] MEDS: oxyCODONE ER 10 MG TAB.ER.12H PO SCH ×2 (08:17→20:50)
[2020-03-09] MEDS: SODIUM BICARBONATE TAB 650 MG TAB PO SCH ×4 (08:17→20:52)
[2020-03-09] MEDS: CHOLECALCIFEROL 25 MCG (1000 IU) TABLET PO SCH (08:17)
[2020-03-09] MEDS: MULTIVITAMINS, THERA 1 EACH TAB PO SCH (08:17)
[2020-03-09] MEDS: METOPROLOL TARTRATE 12.5 MG TAB PO SCH ×2 (08:17→20:52)
[2020-03-09] MEDS: FOLIC ACID 1 MG TAB PO SCH (08:17)
[2020-03-09] MEDS: SERTRALINE 25 MG TAB PO SCH (08:18)
[2020-03-09] MEDS: FERROUS SULFATE 325 MG TAB PO SCH (08:18)
[2020-03-09] MEDS: PANTOPRAZOLE 40 MG/10 ML VIAL IV SCH ×2 (08:18→20:52)
[2020-03-09] MEDS: ANASTROZOLE 1 MG TAB PO SCH (08:19)
[2020-03-09] MEDS: INSULIN ASPART (NovoLOG) 100 UNIT/ML VIAL SQ SCH ×4 (08:19→20:52)
[2020-03-09 09:21] LABS: African American GFR (CKD) 35.3 (60.0-200.0); Anion Gap 6.4 mmol/L (4.00-12.00); BUN/Creat Ratio 12.35 Ratio (12.00-20.00); Calcium 8.2 mg/dL (8.7-10.3); Carbon Dioxide 23.6 mmol/L (21.6-31.8); Non-African American GFR(CKD) 30.5 (60.0-200.0)
[2020-03-09] MEDS: ONDANSETRON 4 MG/2 ML VIAL IVP PRN ×2 (09:26→15:35)
[2020-03-09] MEDS: ARTIFICIAL TEARS-HYPROMELLOSE DROPS 15 ML BTL BOTH EYES SCH ×2 (11:02→20:52)
[2020-03-09 11:45] LABS: Glucose,Whole Blood 148 mg/dL (75-99)
[2020-03-09] MEDS ORDERED: bisacodyL 5 MG TABLET.DR PO STA (13:12)
--- NOTE | 2020-03-09 13:55 | P.PN ---
Subjective Progress Note Date: 03/09/20 CHIEF COMPLAINT: Abdominal wound HISTORY OF PRESENT ILLNESS: Patient is being followed in regards to her chronic abdominal wound. Infectious disease has patient on daptomycin. Patient reports minimal pain. Wound Culture no growth. She's currently on a full liquid diet and requesting diet to be advanced. Venous Dopplers were negative for DVT. Afebrile. WBC is 2.8 hemoglobin 7.2. Patient denies any blood in her stools. PHYSICAL EXAM: VITAL SIGNS: Reviewed. GENERAL: Well-developed in no acute distress. HEENT: No sclera icterus. Extraocular movements grossly intact. Moist buccal mucosa. Head is atraumatic, normocephalic. ABDOMEN: Soft. Nondistended. Minimal tenderness. Serous drainage from incision wound NEUROLOGIC: Alert and oriented. Cranial nerves II through XII grossly intact. ASSESSMENT: 1. Chronic nonhealing abdominal wound 2. Possible GI bleed. Stool for occult blood is positive. Patient denies any active bleeding. 3. Chronic anemia that is multifactorial. Likely due to chronic kidney disease, malnutrition, recent infections, as well as possible underlying GI bleed. 4. Status post right colectomy for GI bleed and angiodysplasia on 01/27/2020 PLAN: -Continue local wound care with iodoform ribbon gauze -Continue to monitor patient's hemoglobin and for any signs of active bleeding -No surgical intervention planned -Advance diet to regular -Antibiotics per ID Physician Nib Assembler note has been reviewed by physician. Signing provider agrees with the documented findings, assessment, and plan of care. Objective - Vital Signs Vital signs: Vital Signs Temp 98.0 F 03/09/20 08:00 Pulse 65 03/09/20 08:00 Resp 16 03/09/20 08:00 BP 110/62 03/09/20 08:00 Pulse Ox 97 03/09/20 08:00 Intake & Output 03/08/20 03/09/20 03/09/20 18:59 06:59 18:59 Intake Total 1500 300 Output Total 350 2600 Balance 1150 -2300 Weight 147 kg Intake: IV 960 Sodium Chloride 0.9% 1, 960 000 ml @ 20 mls/hr IV . Q24H ROS Rx#:[id number] Oral 540 300 Output: Urine 350 2600 Straight 1300 Other: Voiding Method Indwelling Catheter Indwelling Catheter Indwelling Catheter - Labs CBC & Chem 7: 03/09/20 06:11 03/09/20 06:11 Labs: Abnormal Lab Results - Last 24 Hours (Table) 03/08/20 03/08/20 03/08/20 Range/Units 16:35 20:28 21:16 WBC (3.8-10.6) k/uL RBC (3.80-5.40) m/uL Hgb (11.4-16.0) gm/dL Hct (34.0-46.0) % MCHC (31.0-37.0) g/dL RDW (11.5-15.5) % Plt Count (150-450) k/uL Potassium 5.2 H (3.5-5.1) mmol/L Chloride 109 H (98-107) mmol/L BUN 22 H (7-17) mg/dL Creatinine 1.74 H (0.52-1.04) mg/dL Est GFR (CKD-EPI)AfAm (60.0-200.0) Est GFR (CKD-EPI)NonAf (60.0-200.0) Glucose 155 H (74-99) mg/dL POC Glucose (mg/dL) 150 H 173 H (75-99) mg/dL Calcium 8.2 L (8.4-10.2) mg/dL 03/08/20 03/09/20 03/09/20 Range/Units 22:57 06:11 06:11 WBC 2.8 L (3.8-10.6) k/uL RBC 2.61 L (3.80-5.40) m/uL Hgb 7.2 L (11.4-16.0) gm/dL Hct 23.4 L (34.0-46.0) % MCHC 30.7 L (31.0-37.0) g/dL RDW 19.2 H (11.5-15.5) % Plt Count 85 L (150-450) k/uL Potassium (3.5-5.1) mmol/L Chloride (98-107) mmol/L BUN (7-17) mg/dL Creatinine 1.7 H (0.52-1.04) mg/dL Est GFR (CKD-EPI)AfAm 35.3 L (60.0-200.0) Est GFR (CKD-EPI)NonAf 30.5 L (60.0-200.0) Glucose 115 H (74-99) mg/dL POC Glucose (mg/dL) 163 H (75-99) mg/dL Calcium 8.2 L (8.4-10.2) mg/dL 03/09/20 03/09/20 Range/Units 07:19 11:44 WBC (3.8-10.6) k/uL RBC (3.80-5.40) m/uL Hgb (11.4-16.0) gm/dL Hct (34.0-46.0) % MCHC (31.0-37.0) g/dL RDW (11.5-15.5) % Plt Count (150-450) k/uL Potassium (3.5-5.1) mmol/L Chloride (98-107) mmol/L BUN (7-17) mg/dL Creatinine (0.52-1.04) mg/dL Est GFR (CKD-EPI)AfAm (60.0-200.0) Est GFR (CKD-EPI)NonAf (60.0-200.0) Glucose (74-99) mg/dL POC Glucose (mg/dL) 143 H 148 H (75-99) mg/dL Calcium (8.4-10.2) mg/dL Microbiology - Last 24 Hours (Table) 03/07/20 10:02 Gram Stain - Final Abdomen Wound Culture - Final 03/05/20 22:33 Blood Culture - Preliminary Blood No Growth after 72 hours 03/05/20 17:49 Urine Culture - Final Urine,Voided Group D Enterococcus 03/05/20 16:33 Blood Culture - Preliminary Blood No Growth after 72 hours
--- NOTE | 2020-03-09 14:06 | PN ---
PROGRESS NOTE DATE OF SERVICE: 03/09/2020 REASON FOR FOLLOWUP: 1. Abdominal wound infection. 2. Enterococcus UTI. INTERVAL HISTORY: The patient is currently afebrile. Patient is breathing comfortably. Abdominal pain is currently controlled. Drainage has decreased. Complaining of pain to the legs. No vomiting or diarrhea. PHYSICAL EXAMINATION: Blood pressure 110/62 with a pulse of 65, temperature 98. She is 97% on room air. General description: The patient is an elderly female lying in bed in no distress. Respiratory system: Unlabored breathing. Clear to auscultation anteriorly. Heart S1, S2. Regular rate and rhythm. Abdomen soft. Wound is currently packed. LABS: Hemoglobin is 7.1, white count 2.8. BUN of 21, creatinine 1.7. Abdominal culture is currently pending. Urine showing Enterococcus. DIAGNOSTIC IMPRESSION AND PLAN: Patient admitted to the hospital with concern for abdominal wound infection with previous sepsis or cellulitis and positive culture with Staph epi. The patient on daptomycin, also has a component of urinary tract infection, urine showing Enterococcus. Continue with daptomycin. Local wound care with Aquacel packing and monitor clinical course closely. MMODL / IJN: [id number] /
[2020-03-09 17:18] LABS: Glucose,Whole Blood 139 mg/dL (75-99)
[2020-03-09] MEDS: SODIUM CHLORIDE 0.9% 1,000 ML IV SCH (19:06)
--- NOTE | 2020-03-09 19:52 | P.PN ---
Progress Note - Text Progress Note Date: 03/09/20 Chief Complaint: Drainage from the incision site Consultation: This is a 70 year patient currently at [facility] /followed by Dr. Han. Chronic stable medical conditions include CHF EF 55-60%, COPD, diabetes, fibromyalgia, hyperlipidemia, hypertension, chronic kidney disease stage III, rheumatoid arthritis, history of breast cancer with right sided mastectomy, peripheral neuropathy, chronic anxiety depression, liver cirrhosis with portal hypertension.uses a wheelchair to get about GI bleed - right colectomy on January [address] Seaman. Also repair of incisional hernia. Patient has been treated for acute cellulitis at the abdominal wall incision site. Patient now presents with increasing drainage at the abdominal incision site. Appetite okay. No fever no chills. Patient's currently nonambulatory. Tired. Some general abdominal pain. No nausea vomiting. Started on IV daptomycin. Today-some drainage from the incision site. Oral intake improved. Lower extremity edema-patient does not like the Patric wraps.. Review of systems: Was done for constitutional, cardiovascular, GI, pulmonary. relevant finding as above Active Medications Acetaminophen (Acetaminophen Tab 325 Mg Tab) 650 mg PO Q4H PRN PRN Reason: Fever and/ or Pain Hydrocodone Bitart/Acetaminophen (Hydrocodone/Apap 10-325mg 1 Each Tab) 1 each PO Q6HR PRN PRN Reason: Pain Last Admin: 03/09/20 15:34 Dose: 1 each Documented by: Anastrozole (Anastrozole 1 Mg Tab) 1 mg PO DAILY@0900 [facility] Last Admin: 03/09/20 08:19 Dose: 1 mg Documented by: Artificial Tears (Artificial Tears-Hypromellose Drops 15 Ml Btl) 1 drops BOTH EYES BID@0900,2100 [facility] Last Admin: 03/09/20 11:02 Dose: Not Given Documented by: Cholecalciferol (Cholecalciferol 25 Mcg (1000 Iu) Tablet) 50 mcg PO DAILY [facility] Last Admin: 03/09/20 08:17 Dose: 50 mcg Documented by: Darbepoetin Gurwinder (Darbepoetin Gurwinder 40 Mcg/0.4 Ml Syringe) 40 mcg SQ SA [facility] Last Admin: 03/07/20 13:41 Dose: 40 mcg Documented by: Ferrous Sulfate (Ferrous Sulfate 325 Mg Tab) 325 mg PO DAILY@0900 [facility] Last Admin: 03/09/20 08:18 Dose: 325 mg Documented by: Folic Acid (Folic Acid 1 Mg Tab) 1 mg PO DAILY@0900 [facility] Last Admin: 03/09/20 08:17 Dose: 1 mg Documented by: Gabapentin (Gabapentin 100 Mg Cap) 100 mg PO TID@0900,1500,2100 [facility] Last Admin: 03/09/20 14:35 Dose: 100 mg Documented by: Sodium Chloride (Saline 0.9%) 1,000 mls @ 20 mls/hr IV .Q24H [facility] Last Admin: 03/09/20 19:06 Dose: Not Given Documented by: Daptomycin 500 mg/ Sodium (Chloride) 50 mls @ 100 mls/hr IVPB Q24H [facility]; Protocol Last Admin: 03/08/20 22:42 Dose: 100 mls/hr Documented by: Insulin Aspart (Insulin Aspart (Novolog) 100 Unit/Ml Vial) 0 unit SQ ACHS [facility]; Protocol Last Admin: 03/09/20 17:32 Dose: Not Given Documented by: Lactulose (Lactulose 20 Gm/30 Ml Cup) 20 gm PO BID@0900,2100 PRN PRN Reason: Constipation Melatonin (Melatonin 5 Mg Tablet) 10 mg PO HS PRN PRN Reason: Insomnia Metoprolol Tartrate (Metoprolol Tartrate 12.5 Mg Tab) 12.5 mg PO BID@0900,2100 [facility] Last Admin: 03/09/20 08:17 Dose: 12.5 mg Documented by: Midodrine (Midodrine 5 Mg Tab) 10 mg PO TID@0800,1200,1700 [facility] Last Admin: 03/09/20 18:05 Dose: 10 mg Documented by: Multivitamins (Multivitamins, Thera 1 Each Tab) 1 each PO DAILY@0900 [facility] Last Admin: 03/09/20 08:17 Dose: 1 each Documented by: Naloxone HCl (Naloxone 0.4 Mg/Ml 1 Ml Vial) 0.2 mg IV Q2M PRN PRN Reason: Opioid Reversal Ondansetron HCl (Ondansetron 4 Mg/2 Ml Vial) 4 mg IVP Q6HR PRN PRN Reason: Nausea And Vomiting Last Admin: 03/09/20 15:35 Dose: 4 mg Documented by: Oxycodone HCl (Oxycodone Er 10 Mg Tab.Er.12h) 10 mg PO BID@0900,2100 [facility] Last Admin: 03/09/20 08:17 Dose: 10 mg Documented by: Oxymetazoline HCl (Oxymetazoline 0.05% Nasl [place] 1 [place] Bottle) 1 spray NASAL Q15M PRN PRN Reason: BLOODY NOSE Pantoprazole Sodium (Pantoprazole 40 Mg/10 Ml Vial) 40 mg IV BID [facility] Last Admin: 03/09/20 08:18 Dose: 40 mg Documented by: Rifaximin (Rifaximin 550 Mg Tablet) 550 mg PO BID@0600,2100 [facility] Stop: 04/04/20 21:01 Last Admin: 03/09/20 05:54 Dose: 550 mg Documented by: Senna (Sennosides 8.6 Mg Tab) 8.6 mg PO BID@0600,2100 [facility] Last Admin: 03/09/20 05:39 Dose: Not Given Documented by: Sertraline HCl (Sertraline 25 Mg Tab) 25 mg PO DAILY@0900 [facility] Last Admin: 03/09/20 08:18 Dose: 25 mg Documented by: Sodium Bicarbonate (Sodium Bicarbonate Tab 650 Mg Tab) 650 mg PO 0900,1300,1700,2100 [facility] Last Admin: 03/09/20 18:05 Dose: 650 mg Documented by: Spironolactone (Spironolactone 25 Mg Tab) 50 mg PO DAILY@0600 [facility] Last Admin: 03/09/20 05:54 Dose: 50 mg Documented by: Thiamine HCl (Thiamine 100 Mg Tab) 100 mg PO DAILY@0600 [facility] Last Admin: 03/09/20 05:54 Dose: 100 mg Documented by: Past medical history to include: CHF EF 55-60%, COPD, diabetes, fibromyalgia, hyperlipidemia, hypertension, chronic kidney disease stage III, rheumatoid arthritis, history of breast cancer with right sided mastectomy, peripheral neuropathy, chronic anxiety depression, liver cirrhosis with portal hypertension.uses a wheelchair to get about. Right hemicolectomy for GI bleed Social history: Lives at [facility] on [facility] Uses a wheelchair. Patient smoked from 1971 and stopped in December 2017. No alcohol. Physical examination: VITAL SIGNS: 98.3, 64, 16, 105/69, 99% room air GENERAL: reclining in bed, awake, comfortable EYES: Pupils equal. Conjunctiva pale. HEENT: External appearance of nose and ears normal, oral cavity grossly normal. NECK: JVD unable to assess; masses not palpable. HEART: First and second heart sounds are normal; mild edema. LUNGS: Respiratory rate increased; decreased breath sounds. ABDOMEN: Soft, some drainage from the incision site with some local tenderness. liver spleen not palpable, no masses palpable. PSYCH: [Alert and oriented x3; mood and affect anxiety Investigations: March 09: White count 2.8 hemoglobin 7.2 platelets 85 potassium 5 creatinine 1.7 Doppler ultrasound: Negative for DVT White count 2.9 hemoglobin 7.7 platelets 107of 5.8 bun 31 and creatinine 1.76 UA positive for leukoesterase, WBC. Culture-group D enterococcus Abdominal wound culture- negative Previous testing: Bun 59 creatinine 2.7 on 02/19/2020 Assessment: -Acute infection/cellulitis of the abdominal wall incision site. Previous culture drawn Staphylococcus epidermidis. Significant resistance. Repeat cultures negative -right colectomy, repair of incisional hernia, partial omentectomy. Recently for GI bleed -Chronic congestive heart failure from diastolic dysfunction EF 55-60% -COPD in an ex-smoker -Diabetes mellitus type 2 on oral hypoglycemic -Chronic fibromyalgia -Hyperlipidemia -Essential hypertension -Chronic kidney disease stage III from diabetic nephropathy and hypertensive nephrosclerosis -Rheumatoid arthritis -History of breast cancer with a right-sided mastectomy -Peripheral neuropathy secondary to diabetes -Chronic anxiety depression -Obesity -Liver cirrhosis with portal hypertension on Xifaxan -Pancytopenia from cirrhosis -Patient has a legal guardian-Calvin Whipple -Hyperkalemia seconded to kidney disease-improved Plan: Diet advanced to regular. On daptomycin. Local wound care with either form ribbon gauze. Discussed with patient.
[2020-03-09 20:31] LABS: Glucose,Whole Blood 148 mg/dL (75-99)
[2020-03-09] MEDS: DAPTOmycin 500 MG in SODIUM CHLORIDE 0.9% 50 ML IVPB SCH (20:53)
[2020-03-10] MEDS: HYDROcodone/APAP 10-325MG 1 EACH TAB PO PRN ×2 (02:00→14:04)
[2020-03-10] MEDS: THIAMINE 100 MG TAB PO SCH (06:19)
[2020-03-10] MEDS: SPIRONOLACTONE 25 MG TAB PO SCH (06:19)
[2020-03-10] MEDS: RIFAXIMIN 550 MG TABLET PO SCH (06:19)
[2020-03-10] MEDS: SENNOSIDES 8.6 MG TAB PO SCH (06:19)
[2020-03-10 06:57] LABS: Glucose,Whole Blood 155 mg/dL (75-99)
[2020-03-10] MEDS: METOPROLOL TARTRATE 12.5 MG TAB PO SCH (07:46)
[2020-03-10] MEDS: FERROUS SULFATE 325 MG TAB PO SCH (07:46)
[2020-03-10] MEDS: FOLIC ACID 1 MG TAB PO SCH (07:46)
[2020-03-10] MEDS: MIDODRINE 5 MG TAB PO SCH ×3 (07:47→17:07)
[2020-03-10] MEDS: MULTIVITAMINS, THERA 1 EACH TAB PO SCH (07:47)
[2020-03-10] MEDS: SODIUM BICARBONATE TAB 650 MG TAB PO SCH ×3 (07:47→15:43)
[2020-03-10] MEDS: oxyCODONE ER 10 MG TAB.ER.12H PO SCH (07:47)
[2020-03-10] MEDS: GABAPENTIN 100 MG CAP PO SCH ×2 (07:47→14:04)
[2020-03-10] MEDS: CHOLECALCIFEROL 25 MCG (1000 IU) TABLET PO SCH (07:47)
[2020-03-10] MEDS: SERTRALINE 25 MG TAB PO SCH (07:48)
[2020-03-10] MEDS: ARTIFICIAL TEARS-HYPROMELLOSE DROPS 15 ML BTL BOTH EYES SCH (07:48)
[2020-03-10] MEDS: PANTOPRAZOLE 40 MG/10 ML VIAL IV SCH (07:48)
[2020-03-10] MEDS: ANASTROZOLE 1 MG TAB PO SCH (07:48)
[2020-03-10] MEDS: INSULIN ASPART (NovoLOG) 100 UNIT/ML VIAL SQ SCH ×3 (07:49→17:07)
[2020-03-10 07:58] VITALS: RESP 16
[2020-03-10 11:52] LABS: Glucose,Whole Blood 140 mg/dL (75-99)
--- NOTE | 2020-03-10 13:05 | P.PN ---
Subjective Progress Note Date: 03/10/20 CHIEF COMPLAINT: Abdominal wound HISTORY OF PRESENT ILLNESS: Patient is being followed in regards to her chronic abdominal wound. Infectious disease has patient on daptomycin. Patient reports minimal pain. Wound Culture no growth. Patient reports having bowel movement. Afebrile. Patient denies any blood in her stools. PHYSICAL EXAM: VITAL SIGNS: Reviewed. GENERAL: Well-developed in no acute distress. HEENT: No sclera icterus. Extraocular movements grossly intact. Moist buccal mucosa. Head is atraumatic, normocephalic. ABDOMEN: Soft. Nondistended. Minimal tenderness. Serous drainage from incision wound NEUROLOGIC: Alert and oriented. Cranial nerves II through XII grossly intact. ASSESSMENT: 1. Chronic nonhealing abdominal wound 2. Possible GI bleed. Stool for occult blood is positive. Patient denies any active bleeding. 3. Chronic anemia that is multifactorial. Likely due to chronic kidney disease, malnutrition, recent infections, as well as possible underlying GI bl eed. 4. Status post right colectomy for GI bleed and angiodysplasia on 01/27/2020 PLAN: -Continue local wound care with iodoform ribbon gauze -Continue to monitor patient's hemoglobin and for any signs of active bleeding -No surgical intervention planned -Antibiotics per ID Physician Blowing Weasand note has been reviewed by physician. Signing provider agrees with the documented findings, assessment, and plan of care. Objective - Vital Signs Vital signs: Vital Signs Temp 97.9 F 03/10/20 07:57 Pulse 68 03/10/20 07:57 Resp 16 03/10/20 07:57 BP 108/63 03/10/20 07:57 Pulse Ox 96 03/10/20 07:57 Intake & Output 03/09/20 03/10/20 03/10/20 18:59 06:59 18:59 Output Total 1200 400 Balance -1200 -400 Weight 145 kg Output: Urine 1200 400 Other: Voiding Method Indwelling Catheter Indwelling Catheter - Labs CBC & Chem 7: 03/09/20 06:11 03/09/20 06:11 Labs: Abnormal Lab Results - Last 24 Hours (Table) 03/09/20 03/09/20 03/10/20 Range/Units 17:16 20:25 06:55 POC Glucose (mg/dL) 139 H 148 H 155 H (75-99) mg/dL 03/10/20 Range/Units 11:49 POC Glucose (mg/dL) 140 H (75-99) mg/dL Microbiology - Last 24 Hours (Table) 03/05/20 22:33 Blood Culture - Preliminary Blood No Growth after 96 hours 03/05/20 16:33 Blood Culture - Preliminary Blood No Growth after 96 hours 03/07/20 10:02 Anaerobic Culture - Preliminary Abdomen 03/07/20 10:02 Gram Stain - Final Abdomen Wound Culture - Final
[2020-03-10] MEDS: ONDANSETRON 4 MG/2 ML VIAL IVP PRN (14:04)
--- NOTE | 2020-03-10 15:20 | PN ---
PROGRESS NOTE DATE OF SERVICE: 03/10/2020 REASON FOR FOLLOWUP: 1. Abdominal wound. 2. UTI. INTERVAL HISTORY: The patient is currently afebrile. Patient is breathing comfortably. Denies having any chest pain or any cough. Abdominal pain has improved. Still has some drainage from it. No diarrhea. Still has a Gran[place] catheter. PHYSICAL EXAMINATION: Blood pressure 108/63 with a pulse of 68, temperature 97.9. She is 96% on room air. General description is an elderly female lying in bed in no distress. RESPIRATORY SYSTEM: Unlabored breathing, clear to auscultation anteriorly. HEART: S1, S2. Regular rate and rhythm. ABDOMEN: Soft. Midline wound currently packed. No significant surrounding redness or purulent drainage. LABS: BUN of 21, creatinine 1.7. Abdominal culture came back negative. Urine is showing group D Enterococcus. DIAGNOSTIC IMPRESSION AND PLAN: Patient admitted to the hospital with nonhealing wound to the abdomen with concern for secondary cellulitis though culture has been negative. Patient is not running any fever. She showing Enterococcus in the urine and did have a Midline, will consider daptomycin for 1 week. Discussed with the admitting physician. Local wound care per Surgery. MMODL / IJN: [id number] /
[2020-03-10 15:32] VITALS: BP 123/73; PULSE 73; TEMP 98.6
--- NOTE | 2020-03-10 16:02 | P.DS ---
Providers Date of admission: 03/05/20 19:11 Expected date of discharge: 03/10/20 Attending physician: Guy Griffith Consults: 03/05/20 19:07 Consult Physician Routine Consulting Provider: Virgilio Brunner Consult Reason/Comments: GI bleeding, chronic abdominal wound Do you want consulting provider notified?: Yes 03/07/20 19:17 Consult Physician Routine Consulting Provider: Tania Boyd Consult Reason/Comments: Infected incision Do you want consulting provider notified?: Yes [facility]: Chief Complaint: Drainage from the incision site Consultation: This is a 70 year patient currently at [facility] /followed by Dr. Han. Chronic stable medical conditions include CHF EF 55-60%, COPD, diabetes, fibromyalgia, hyperlipidemia, hypertension, chronic kidney disease stage III, rheumatoid arthritis, history of breast cancer with right sided mastectomy, peripheral neuropathy, chronic anxiety depression, liver cirrhosis with portal hypertension.uses a wheelchair to get about GI bleed - right colectomy on January [address] Brunner. Also repair of incisional hernia. Patient has been treated for acute cellulitis at the abdominal wall incision site. Patient now presents with increasing drainage at the abdominal incision site. Appetite okay. No fever no chills. Patient's currently nonambulatory. Tired. Some general abdominal pain. No nausea vomiting. Started on IV daptomycin. Today-some drainage from the incision site. Oral intake has been good. Patient does not like Patric wrap lower extremity.. Discussed with Dr. Pastrana from ID. Another 1 week off daptomycin. Wound cultures have been negative. Discussion and discharge planning more than 35 minutes Consultation: Dr. Boyd from ID Dr. Brunner from general surgery Past medical history to include: CHF EF 55-60%, COPD, diabetes, fibromyalgia, hyperlipidemia, hypertension, chronic kidney disease stage III, rheumatoid arthritis, history of breast cancer with right sided mastectomy, peripheral neuropathy, chronic anxiety depression, liver cirrhosis with portal hypertension.uses a wheelchair to get about. Right hemicolectomy for GI bleed Social history: Lives at [facility] on the [place] Uses a wheelchair. Patient smoked from 1971 and stopped in December 2017. No alcohol. Physical examination: VITAL SIGNS: 98.6, 73, 16, 123 with 73, 96% room air GENERAL: reclining in bed, awake, comfortable EYES: Pupils equal. Conjunctiva pale. HEENT: External appearance of nose and ears normal, oral cavity grossly normal. NECK: JVD unable to assess; masses not palpable. HEART: First and second heart sounds are normal; mild edema. LUNGS: Respiratory rate increased; decreased breath sounds. ABDOMEN: Soft, some drainage from the incision site with some local tenderness. liver spleen not palpable, no masses palpable. PSYCH: [Alert and oriented x3; mood and affect anxiety Investigations: March 09: White count 2.8 hemoglobin 7.2 platelets 85 potassium 5 creatinine 1.7 Doppler ultrasound: Negative for DVT White count 2.9 hemoglobin 7.7 platelets 107of 5.8 bun 31 and creatinine 1.76 UA positive for leukoesterase, WBC. Culture-group D enterococcus Abdominal wound culture- negative Previous testing: Bun 59 creatinine 2.7 on 02/19/2020 Assessment: -Acute infection/cellulitis of the abdominal wall incision site. Previous culture drawn Staphylococcus epidermidis. Significant resistance. Repeat cultures negative -right colectomy, repair of incisional hernia, partial omentectomy. Recently for GI bleed -Chronic congestive heart failure from diastolic dysfunction EF 55-60% -COPD in an ex-smoker -Diabetes mellitus type 2 on oral hypoglycemic -Chronic fibromyalgia -Hyperlipidemia -Essential hypertension -Chronic kidney disease stage III from diabetic nephropathy and hypertensive nephrosclerosis -Rheumatoid arthritis -History of breast cancer with a right-sided mastectomy -Peripheral neuropathy secondary to diabetes -Chronic anxiety depression -Obesity -Liver cirrhosis with portal hypertension on Xifaxan -Pancytopenia from cirrhosis -Patient has a legal guardian-Calvin Whipple -Hyperkalemia seconded to kidney disease-improved -Acute UTI with cystitis secondary to Granados catheter. From group D enterococcus Disposition: F/[facility] Patient Condition at Discharge: Stable Plan - Discharge Summary Discharge Rx Participant: No New Discharge Prescriptions: New DAPTOmycin [Cubicin] 500 mg IVPB Q24H #7 vial INSULIN ASPART (NovoLOG) [NovoLOG (formulary)] 0 unit SQ ACHS vial Continue Anastrozole [Arimidex] 1 mg PO DAILY@0900 Sennosides [Senna] 8.6 mg PO BID@0600,2100 Pantoprazole [Protonix] 40 mg PO DAILY@0600 Ferrous Sulfate [Iron (65 MG Elemental)] 325 mg PO DAILY@0900 Acetaminophen [Tylenol] 650 mg PO Q4H PRN PRN Reason: Fever And/ Or Pain Dextran 70/Hypromellose [Genteal Tears 0.1%-0.3% Drop] 1 drop BOTH EYES BID@0900,2099 Rifaximin [Xifaxan] 550 mg PO BID@0600,2099 Lactulose 20 gm PO BID@0900,2100 PRN PRN Reason: Constipation Thiamine [Vitamin B-1] 100 mg PO DAILY@0600 Multivitamins, Thera [Multivitamin (formulary)] 1 tab PO DAILY@0900 Folic Acid 1 mg PO DAILY@0900 Melatonin 10 mg PO HS PRN PRN Reason: Insomnia Oxymetazoline 0.05% Nasl [place] [Afrin 0.05% Nasal [place]] 1 spray NASAL Q15M PRN MDD 3 DOSES PRN Reason: BLOODY NOSE Sertraline HCl [Zoloft] 25 mg PO DAILY@0900 Spironolactone [Aldactone] 50 mg PO DAILY@0600 Metoprolol Tartrate [Lopressor] 12.5 mg PO BID@0900,2099 Sodium Bicarbonate Tab 650 mg PO QID tab Darbepoetin Gur[place]inder [Aranesp] 40 mcg SQ SA Midodrine [ProAmatine] 10 mg PO TID@0800,1200,1700 Glucerna Shake 1 can PO BID@0900,1700 Cholecalciferol [Vitamin D3 (25 Mcg = 1000 Iu)] 50 mcg PO DAILY Insulin Lispro [humaLOG Kwikpen] See Protocol SQ ACHS Gabapentin [Neurontin] 100 mg PO TID@0900,1500,2099 #9 cap HYDROcodone/APAP 10-325MG [Helix 10-325] 1 tab PO Q6HR PRN 3 Days #12 tab PRN Reason: Pain oxyCODONE HCL [OxyCONTIN] 10 mg PO BID@0900,2099 #6 tab Discontinued INSULIN LISPRO (humaLOG) [humaLOG] 4 units SQ TID@0800,1200,1700 Discharge Medication List Anastrozole [Arimidex] 1 mg PO DAILY@0900 09/30/14 [History] Sennosides [Senna] 8.6 mg PO BID@0600,2100 04/02/18 [History] Pantoprazole [Protonix] 40 mg PO DAILY@0600 07/02/18 [History] Ferrous Sulfate [Iron (65 MG Elemental)] 325 mg PO DAILY@89908/16/18 [History] Acetaminophen [Tylenol] 650 mg PO Q4H PRN 08/24/19 [History] Dextran 70/Hypromellose [Genteal Tears 0.1%-0.3% Drop] 1 drop BOTH EYES BID@0900,2100 08/24/19 [History] Folic Acid 1 mg PO DAILY@89908/24/19 [History] Lactulose 20 gm PO BID@899,2099 PRN 08/24/19 [History] Multivitamins, Thera [Multivitamin (formulary)] 1 tab PO DAILY@89908/24/19 [ History] Rifaximin [Xifaxan] 550 mg PO BID@0600,209908/24/19 [History] Thiamine [Vitamin B-1] 100 mg PO DAILY@0608/24/19 [History] Melatonin 10 mg PO HS PRN 10/25/19 [History] Oxymetazoline 0.05% Nasl [place] [Afrin 0.05% Nasal [place]] 1 spray NASAL Q15M PRN MDD 3 DOSES 10/25/19 [History] Sertraline HCl [Zoloft] 25 mg PO DAILY@0900 01/19/20 [History] Spironolactone [Aldactone] 50 mg PO DAILY@0601/19/20 [History] Metoprolol Tartrate [Lopressor] 12.5 mg PO BID@0900,2100 02/05/20 [History] Sodium Bicarbonate Tab 650 mg PO QID tab 02/11/20 [Rx] Darbepoetin Gur[place]inder [Aranesp] 40 mcg SQ SA 02/16/20 [History] Cholecalciferol [Vitamin D3 (25 Mcg = 1000 Iu)] 50 mcg PO DAILY 03/05/20 [History] Glucerna Shake 1 can PO BID@0900,1700 03/05/20 [History] Insulin Lispro [humaLOG Kwikpen] See Protocol SQ ACHS 03/05/20 [History] Midodrine [ProAmatine] 10 mg PO TID@0800,1200,1700 03/05/20 [History] DAPTOmycin [Cubicin] 500 mg IVPB Q24H #7 vial 03/10/20 [Rx] Gabapentin [Neurontin] 100 mg PO TID@0900,1500,2100 #9 cap 03/10/20 [Rx] HYDROcodone/APAP 10-325MG [Helix 10-325] 1 tab PO Q6HR PRN 3 Days #12 tab 03/10/20 [Rx] INSULIN ASPART (NovoLOG) [NovoLOG (formulary)] 0 unit SQ ACHS vial 03/10/20 [Rx] oxyCODONE HCL [OxyCONTIN] 10 mg PO BID@0900,2100 #6 tab 03/10/20 [Rx] Follow up Appointment(s)/Referral(s): Tom Han MD [Primary Care Provider] - 1-2 days Virgilio Brunner MD [STAFF PHYSICIAN] - 2 Weeks Activity/Diet/Wound Care/Special Instructions: wound care per dr brunner
[2020-03-10] MEDS: SODIUM CHLORIDE 0.9% 1,000 ML IV SCH (16:27)
[2020-03-10 16:56] LABS: Glucose,Whole Blood 141 mg/dL (75-99)
[2020-03-10] MEDS ORDERED: PANTOPRAZOLE 40 MG TABLET PO SCH (21:00)
== END 2020-03-10 18:30 | DRG 863 ==
LOC: EC 15:58 → 4SSUR 19:11
PROVIDERS: ADMIT Hospitalist; ATTEND Hospitalist
DX: T81.41XA Infection following a procedure, superficial incisional surgical site, initial encounter (principal); T83.511A Infection and inflammatory reaction due to indwelling urethral catheter, initial encounter; E46 Unspecified protein-calorie malnutrition; I13.0 Hypertensive heart and chronic kidney disease with heart failure and stage 1 through stage 4 chronic kidney disease, or unspecified chronic kidney disease; I50.32 Chronic diastolic (congestive) heart failure; K76.6 Portal hypertension; L03.311 Cellulitis of abdominal wall; Z16.22 Resistance to vancomycin related antibiotics; K52.1 Toxic gastroenteritis and colitis; D61.818 Other pancytopenia; K92.2 Gastrointestinal hemorrhage, unspecified; E11.22 Type 2 diabetes mellitus with diabetic chronic kidney disease; N30.90 Cystitis, unspecified without hematuria; E11.42 Type 2 diabetes mellitus with diabetic polyneuropathy; K74.60 Unspecified cirrhosis of liver; Y83.8 Other surgical procedures as the cause of abnormal reaction of the patient, or of later complication, without mention of misadventure at the time of the procedure; B95.2 Enterococcus as the cause of diseases classified elsewhere; D64.9 Anemia, unspecified; D72.819 Decreased white blood cell count, unspecified; E66.9 Obesity, unspecified; E78.5 Hyperlipidemia, unspecified; E87.5 Hyperkalemia; F41.8 Other specified anxiety disorders; G40.909 Epilepsy, unspecified, not intractable, without status epilepticus; J44.9 Chronic obstructive pulmonary disease, unspecified; M06.9 Rheumatoid arthritis, unspecified; M79.7 Fibromyalgia; N18.30 Chronic kidney disease, stage 3 unspecified; Z79.4 Long term (current) use of insulin; Z79.811 Long term (current) use of aromatase inhibitors; Z79.899 Other long term (current) drug therapy; Z80.1 Family history of malignant neoplasm of trachea, bronchus and lung; Z80.3 Family history of malignant neoplasm of breast; Z82.5 Family history of asthma and other chronic lower respiratory diseases; Z83.3 Family history of diabetes mellitus; Z85.3 Personal history of malignant neoplasm of breast; Z87.891 Personal history of nicotine dependence; Z90.11 Acquired absence of right breast and nipple; Z90.49 Acquired absence of other specified parts of digestive tract; Z90.710 Acquired absence of both cervix and uterus; Z92.21 Personal history of antineoplastic chemotherapy; Z88.1 Allergy status to other antibiotic agents; Z88.5 Allergy status to narcotic agent; Z88.0 Allergy status to penicillin; Z88.8 Allergy status to other drugs, medicaments and biological substances; T50.3X5A Adverse effect of electrolytic, caloric and water-balance agents, initial encounter; Y84.6 Urinary catheterization as the cause of abnormal reaction of the patient, or of later complication, without mention of misadventure at the time of the procedure
CPT/HCPCS: 36415; 51701; 71046; 74018; 80048; 80051; 80053; 81001; 82272; 82550; 84132; 85025; 85027; 86850; 86870; 86880; 86900; 86901; 86902; 87040; 87070; 87075; 87086; 87205; 93970; 99285

== ENCOUNTER 2020-03-15 12:29 | Inpatient (IN) | payer MEDICARE, OTHER ==
[2020-03-15] MEDS ORDERED: SODIUM CHLORIDE 0.9% 1,000 ML IV STA (12:39)
[2020-03-15] MEDS ORDERED: PANTOPRAZOLE 40 MG/10 ML VIAL IVP STA (12:39)
--- NOTE | 2020-03-15 12:49 | ED ---
GI Bleed HPI - General Chief complaint: GI Bleed Stated complaint: GI Bleed Time Seen by Provider: 03/15/20 12:29 Source: patient, EMS, RN notes reviewed, old records reviewed Mode of arrival: EMS Limitations: no limitations - History of Present Illness Initial comments: This is a 70-year-old female history of multiple medical issues including a recent hemicolectomy and admission for GI bleeding who was just discharged on the of this month who is back today with complaints of melenic stool. She has minimal abdominal pain just over the surgical site which is been poorly healing what appears to be improving no fevers chills nausea vomiting sweats or other symptoms. MD complaint: melena - Related Data Home Medications Medication Instructions Recorded Confirmed Anastrozole [Arimidex] 1 mg PO HS@209909/30/14 03/15/20 Sennosides [Senna] 8.6 mg PO BID@599,209904/02/18 03/15/20 Pantoprazole [Protonix] 40 mg PO DAILY@59907/02/18 03/15/20 Ferrous Sulfate [Iron (65 MG 325 mg PO DAILY@89908/16/18 03/15/20 Elemental)] Acetaminophen [Tylenol] 650 mg PO Q4H PRN 08/24/19 03/15/20 Dextran 70/Hypromellose [Genteal 1 drop BOTH EYES BID@899,209908/24/19 03/15/20 Tears 0.1%-0.3% Drop] Folic Acid 1 mg PO DAILY@209908/24/19 03/15/20 Lactulose 20 gm PO BID PRN 08/24/19 03/15/20 Multivitamins, Thera [Multivitamin 1 tab PO DAILY@89908/24/19 03/15/20 (formulary)] Rifaximin [Xifaxan] 550 mg PO BID@599,209908/24/19 03/15/20 Thiamine [Vitamin B-1] 100 mg PO DAILY@59908/24/19 03/15/20 Melatonin 10 mg PO HS PRN 10/25/19 03/15/20 Oxymetazoline 0.05% Nasl [place] 1 spray NASAL Q15M PRN MDD 3 DOSES 10/25/19 03/15/20 [Afrin 0.05% Nasal [place]] Sertraline HCl [Zoloft] 25 mg PO HS@209901/19/20 03/15/20 Spironolactone [Aldactone] 50 mg PO DAILY@0600 01/19/20 03/15/20 Darbepoetin Gur[place]inder [Aranesp] 40 mcg SQ SA@209902/16/20 03/15/20 Cholecalciferol [Vitamin D3 (25 50 mcg PO DAILY@0900 03/05/20 03/15/20 Mcg = 1000 Iu)] Glucerna [place] 1 can PO BID@0900,1700 03/05/20 03/15/20 Insulin Lispro [humaLOG Kwikpen] See Protocol SQ ACHS 03/05/20 03/15/20 Midodrine [ProAmatine] 10 mg PO TID@0800,1200,1700 03/05/20 03/15/20 Calcium Carb-Vit D 500Mg-5Mcg 1 tab PO BID@0900,2100 03/15/20 03/15/20 [Oscal 500+D 5 Mcg (200 Iu)] DAPTOmycin [Cubicin] 500 mg IVPB DAILY@0600 03/15/20 03/15/20 Metoprolol Tartrate [Lopressor] 12.5 mg PO BID@0900,2100 03/15/20 03/15/20 Previous Rx's Medication Instructions Recorded Sodium Bicarbonate Tab 650 mg PO QID tab 02/11/20 Gabapentin [Neurontin] 100 mg PO TID@0900,1500,2100 #9 cap 03/10/20 HYDROcodone/APAP 10-325MG [[place] 1 tab PO Q6HR PRN 3 Days #12 tab 03/10/20 10-325] oxyCODONE HCL [OxyCONTIN] 10 mg PO BID@0900,2100 #6 tab 03/10/20 Allergies Allergy/AdvReac Type Severity Reaction Status Date / Time cephalexin [From Keflex] Allergy Unknown Verified 03/15/20 13:00 duloxetine [From Cymbalta] Allergy Unknown Verified 03/15/20 13:00 Penicillins Allergy Rash/Hives Verified 03/15/20 13:00 phenobarbital Allergy Unknown Verified 03/15/20 13:00 phenytoin sodium Allergy Unknown Verified 03/15/20 13:00 [From Dilantin] phenytoin sodium extended Allergy Unknown Verified 03/15/20 13:00 [From Dilantin] primidone [From Mysoline] Allergy Unknown Verified 03/15/20 13:00 codeine AdvReac Nausea & Verified 03/15/20 13:00 Vomiting Review of Systems ROS Statement: Those systems with pertinent positive or pertinent negative responses have been documented in the HPI. ROS Other: All systems not noted in ROS Statement are negative. Past Medical History Past Medical History: Cancer, Heart Failure, COPD, Diabetes Mellitus, Fibromyalgia, Hyperlipidemia, Hypertension, Renal Disease, Rheumatoid Arthritis (RA), Seizure Disorder, Supraventricular Tachycardia (SVT) Additional Past Medical History / Comment(s): Breast cancer right-sided post mastectomy followed by chemotherapy, is independent diabetes mellitus type 2, peripheral neuropathy related to diabetes, COPD, liver cirrhosis, hypertension, hyperlipidemia, fibromyalgia, chronic kidney disease, rheumatoid arthritis, seizure disorder, history of SVT, diabetic peripheral neuropathy, chronic anxiety and depression, morbid obesity with a BMI of 58.5, previous history of GI bleed, diverticular disease, history of hepatic encephalopathy History of Any Multi-Drug Resistant Organisms: VRE Date of last positivie culture/infection: 05/11/18 MDRO Source:: VRE URINE Past Surgical History: Adenoidectomy, Appendectomy, Breast Surgery, Cholecystectomy, Hysterectomy, Orthopedic Surgery, Tonsillectomy, Tubal Ligation Additional Past Surgical History / Comment(s): masectomy right, ganglion cyst right hand, total hysterectomy (hx of tubal pregnancies), lower teeth extracted. Past Anesthesia/Blood Transfusion Reactions: No Reported Reaction Past Psychological History: Anxiety, Depression Smoking Status: Former smoker Past Alcohol Use History: None Reported Past Drug Use History: None Reported - Past Family History Father Family Medical History: Cancer, CVA/TIA Additional Family Medical History / Comment(s): 2000 from lung cancer Mother Family Medical History: Cancer, Dementia Additional Family Medical History / Comment(s): 2014 at age 86. Oral & Breast cancer Brother(s) Family Medical History: Asthma, Diabetes Mellitus, Fibromyalgia, Osteoarthritis (OA) Additional Family Medical History / Comment(s): Obesity. Joint replacements General Exam - General Exam Comments Initial Comments: this is a well-developed well-nourished awake alert oriented 3 female Limitations: no limitations General appearance: alert, in no apparent distress Head exam: Present: atraumatic, normocephalic, normal inspection Eye exam: Present: normal appearance, PERRL, EOMI. Absent: scleral icterus, conjunctival injection, periorbital swelling ENT exam: Present: normal exam, mucous membranes moist Neck exam: Present: normal inspection. Absent: tenderness, meningismus, lymphadenopathy Respiratory exam: Present: normal lung sounds bilaterally. Absent: respiratory distress, wheezes, rales, rhonchi, stridor Cardiovascular Exam: Present: regular rate, normal rhythm, normal heart sounds. Absent: systolic murmur, diastolic murmur, rubs, gallop, clicks GI/Abdominal exam: Present: soft, tenderness (re.), normal bowel sounds. Absent: distended, guarding, rebound, rigid Rectal exam: Present: normal inspection, heme (+) stool (heme positive brownish stool) Extremities exam: Present: normal inspection, full ROM, normal capillary refill. Absent: tenderness, pedal edema, joint swelling, calf tenderness Back exam: Present: normal inspection Neurological exam: Present: alert, oriented X3, CN II-XII intact Psychiatric exam: Present: normal affect, normal mood Skin exam: Present: warm, dry, intact, normal color. Absent: rash Course Vital Signs 03/15/20 12:37 Temperature 97.1 F L Pulse Rate 68 Respiratory 20 Rate Blood Pressure 121/45 O2 Sat by Pulse 95 Oximetry Medical Decision Making - Medical Decision Making patient does have a 7.3 hemoglobin. This is consistent with her previous admission. Patient will be admitted I did discuss case with Dr. Alexander as well as patient. Dr. Seaman will be consulted. - Lab Data Result diagrams: 03/15/20 12:49 03/15/20 12:49 Lab Results 03/15/20 03/15/20 03/15/20 Range/Units 12:49 12:49 12:49 WBC 2.7 L (3.8-10.6) k/uL RBC 2.57 L (3.80-5.40) m/uL Hgb 7.3 L (11.4-16.0) gm/dL Hct 22.9 L (34.0-46.0) % MCV 89.0 (80.0-100.0) fL MCH 28.5 (25.0-35.0) pg MCHC 32.0 (31.0-37.0) g/dL RDW 20.3 H (11.5-15.5) % Plt Count 75 L (150-450) k/uL MPV 8.4 Neutrophils % 68 % Lymphocytes % 17 % Monocytes % 8 % Eosinophils % 3 % Basophils % 1 % Neutrophils # 1.9 (1.3-7.7) k/uL Lymphocytes # 0.5 L (1.0-4.8) k/uL Monocytes # 0.2 (0-1.0) k/uL Eosinophils # 0.1 (0-0.7) k/uL Basophils # 0.0 (0-0.2) k/uL Manual Slide Review Performed Hypochromasia Moderate Poikilocytosis (manual Present Anisocytosis Moderate PT 11.2 (9.0-12.0) sec INR 1.1 (<1.2) APTT 24.9 (22.0-30.0) sec Sodium (137-145) mmol/L Potassium (3.5-5.1) mmol/L Chloride (98-107) mmol/L Carbon Dioxide (22-30) mmol/L Anion Gap mmol/L BUN (7-17) mg/dL Creatinine (0.52-1.04) mg/dL Est GFR (CKD-EPI)AfAm (>60 ml/min/1.73 sqM) Est GFR (CKD-EPI)NonAf (>60 ml/min/1.73 sqM) Glucose (74-99) mg/dL Calcium (8.4-10.2) mg/dL Magnesium (1.6-2.3) mg/dL Total Bilirubin (0.2-1.3) mg/dL AST (14-36) U/L ALT (4-34) U/L Alkaline Phosphatase (38-126) U/L Creatine Kinase (30-135) U/L Troponin I (0.000-0.034) ng/mL Total Protein (6.3-8.2) g/dL Albumin (3.5-5.0) g/dL Lipase (23-300) U/L Stool Occult Blood Positive H (Negative) Blood Type Blood Type Recheck Bld Type Recheck Status Antibody Screen Spec Expiration Date 03/15/20 03/15/20 03/15/20 Range/Units 12:49 12:49 12:49 WBC (3.8-10.6) k/uL RBC (3.80-5.40) m/uL Hgb (11.4-16.0) gm/dL Hct (34.0-46.0) % MCV (80.0-100.0) fL MCH (25.0-35.0) pg MCHC (31.0-37.0) g/dL RDW (11.5-15.5) % Plt Count (150-450) k/uL MPV Neutrophils % % Lymphocytes % % Monocytes % % Eosinophils % % Basophils % % Neutrophils # (1.3-7.7) k/uL Lymphocytes # (1.0-4.8) k/uL Monocytes # (0-1.0) k/uL Eosinophils # (0-0.7) k/uL Basophils # (0-0.2) k/uL Manual Slide Review Hypochromasia Poikilocytosis (manual Anisocytosis PT (9.0-12.0) sec INR (<1.2) APTT (22.0-30.0) sec Sodium 138 (137-145) mmol/L Potassium 4.9 (3.5-5.1) mmol/L Chloride 107 (98-107) mmol/L Carbon Dioxide 24 (22-30) mmol/L Anion Gap 7 mmol/L BUN 22 H (7-17) mg/dL Creatinine 1.71 H (0.52-1.04) mg/dL Est GFR (CKD-EPI)AfAm 35 (>60 ml/min/1.73 sqM) Est GFR (CKD-EPI)NonAf 30 (>60 ml/min/1.73 sqM) Glucose 112 H (74-99) mg/dL Calcium 8.4 (8.4-10.2) mg/dL Magnesium 1.8 (1.6-2.3) mg/dL Total Bilirubin 0.8 (0.2-1.3) mg/dL AST 28 (14-36) U/L ALT 11 (4-34) U/L Alkaline Phosphatase 77 (38-126) U/L Creatine Kinase 24 L (30-135) U/L Troponin I <0.012 (0.000-0.034) ng/mL Total Protein 6.1 L (6.3-8.2) g/dL Albumin 2.6 L (3.5-5.0) g/dL Lipase 159 (23-300) U/L Stool Occult Blood (Negative) Blood Type A Positive Blood Type Recheck A Pos Bld Type Recheck Status No Antibody Screen POSITIVE Spec Expiration Date 03/18/2020 - 2348 Disposition Clinical Impression: Upper GI bleed, Anemia Disposition: ADMITTED IP TO THIS [facility] Condition: Stable Referrals: Tom Han MD [Primary Care Provider] - 1-2 days
[2020-03-15 13:02] LABS: Anisocytosis Moderate; Basophils % (A) 1 %; Eosinophils # (A) 0.1 k/uL (0-0.7); Eosinophils % (A) 3 %; HCT 22.9 % (34.0-46.0); HGB 7.3 gm/dL (11.4-16.0); Hypochromasia Moderate; Lymphocytes # (A) 0.5 k/uL (1.0-4.8); Lymphocytes % (A) 17 %; MCH 28.5 pg (25.0-35.0); Mean Platelet Volume 8.4; Monocytes # (A) 0.2 k/uL (0-1.0); Monocytes % (A) 8 %; Neutrophils # (A) 1.9 k/uL (1.3-7.7); Neutrophils % (A) 68 %; RBC 2.57 m/uL (3.80-5.40); RDW 20.3 % (11.5-15.5); WBC 2.7 k/uL (3.8-10.6)
[2020-03-15 13:10] LABS: INR 1.1 (<1.2); Partial Thromboplastin Time 24.9 sec (22.0-30.0); Prothrombin Time 11.2 sec (9.0-12.0)
[2020-03-15 13:11] LABS: Albumin 2.6 g/dL (3.5-5.0); Calcium 8.4 mg/dL (8.4-10.2); Magnesium 1.8 mg/dL (1.6-2.3); Potassium 4.9 mmol/L (3.5-5.1); Total Bilirubin 0.8 mg/dL (0.2-1.3); Total Protein 6.1 g/dL (6.3-8.2)
[2020-03-15 13:30] LABS: Platelet Count 75 k/uL (150-450); Poikilocytosis (M) Present
[2020-03-15] MEDS ORDERED: NALOXONE 0.4 MG/ML 1 ML VIAL IV PRN (13:59)
[2020-03-15] MEDS: SODIUM CHLORIDE 0.9% 1,000 ML IV SCH ×2 (16:03→20:05)
[2020-03-15 16:42] LABS: Glucose,Whole Blood 136 mg/dL (75-99)
[2020-03-15] MEDS: INSULIN ASPART (NovoLOG) 100 UNIT/ML VIAL SQ SCH ×2 (16:59→20:13)
[2020-03-15] MEDS ORDERED: HYDROcodone/APAP 5-325MG 1 EACH TAB PO PRN (17:17)
[2020-03-15] MEDS ORDERED: ACETAMINOPHEN TAB 325 MG TAB PO PRN (17:18)
[2020-03-15] MEDS ORDERED: OXYMETAZOLINE 0.05% NASL SPRAY 1 SPRAY BOTTLE NASAL PRN (17:18)
[2020-03-15] MEDS ORDERED: MELATONIN 5 MG TABLET PO PRN (17:18)
[2020-03-15 19:04] LABS: Anisocytosis Moderate; HCT 24.1 % (34.0-46.0); HGB 7.5 gm/dL (11.4-16.0); Hypochromasia Moderate; MCH 27.7 pg (25.0-35.0); MCHC 31.2 g/dL (31.0-37.0); MCV 88.9 fL (80.0-100.0); Mean Platelet Volume 8.1; RBC 2.71 m/uL (3.80-5.40); RDW 20.2 % (11.5-15.5); WBC 2.9 k/uL (3.8-10.6)
[2020-03-15 19:10] LABS: Platelet Count 80 k/uL (150-450)
--- NOTE | 2020-03-15 19:30 | HP ---
HISTORY AND PHYSICAL DATE OF SERVICE: 03/15/2020 CHIEF COMPLAINT: GI bleed. HISTORY OF PRESENT ILLNESS: This 70-year-old woman with a past medical history of CHF, COPD, diabetes, fibromyalgia, hypertension, hyperlipidemia, rheumatoid arthritis, seizure disorder, supraventricular tachycardia, being followed Dr. Han at [facility] on [facility], recently had right hemicolectomy Dr. Seaman. Subsequently patient had wound infection with Staph epidermidis. Patient was treated. Patient has some drainage around the umbilical area. The patient in [facility] on [facility] and the patient now had melenic stools and the patient was transferred to [facility] for further evaluation and treatment. Patient has a legal guardian. Previously, patient had multiple episodes of gastrointestinal bleed, had extensive evaluation including colonoscopy which showed diverticulosis and as well as the capsule enteroscopy, EGD showed negative findings. The final colonoscopy showed blood throughout the colon and the bleeding was thought to be due to diverticulosis from the right colon and right hemicolectomy was performed hence. There is no history of fever, rigors or chills. No history of headache, loss of consciousness, seizures. The hemoglobin currently is 7.3, and the most recent hemoglobin was 7.2 just prior to the discharge. PAST MEDICAL HISTORY: History of recent right hemicolectomy, history of wound infection, history of CHF, COPD, diabetes, fibromyalgia, hypertension and hyperlipidemia. MEDICATIONS: Medications prior to admission home medications are: Insulin lispro, melatonin, [place] 10 mg. Tylenol Afrin, ProAmatine, Neurontin, OxyContin, [place], Lopressor, Zoloft, doses reviewed. ALLERGIES: KEFLEX, CYMBALTA, PENICILLIN, PHENOBARBITAL, DILANTIN AND MYSOLINE, AND CODEINE. FAMILY HISTORY: History of cancer, CVA, TIA, lung cancer in the family. SOCIAL HISTORY: No history of smoking, no history of alcohol. REVIEW OF SYSTEMS: ENT: Diminished vision. Diminished hearing. CARDIOVASCULAR: No angina. RESPIRATORY: As mentioned earlier. GI as mentioned earlier. no dysuria. NERVOUS SYSTEM: No numbness, weakness. ALLERGY/IMMUNOLOGY: No asthma or hayfever. MUSCULOSKELETAL as mentioned earlier. HEMATOLOGY/ONCOLOGY: As mentioned earlier. ENDOCRINE: As mentioned earlier. CONSTITUTIONAL: As mentioned earlier. DERMATOLOGY: Negative. RHEUMATOLOGY negative. PSYCHIATRY as mentioned earlier. PHYSICAL EXAMINATION: Alert and oriented times three. Pulse is 73. Blood pressure 122/68, respiration 20, temperature 97.8, pulse ox 97% on room air. HEENT is conjunctivae pale. Oral mucosa moist. NECK is no jugular venous distention. No carotid bruit. No lymph node enlargement. CARDIOVASCULAR: S1, S2. RESPIRATION: Breath sounds diminished in the bases. No rhonchi. No crackles. ABDOMEN: Soft. Obese. Status post surgery. There is some drainage in the mid part around the umbilicus of the recent surgical scar. No guarding. No rigidity. LEGS: No edema. No swelling. NERVOUS SYSTEM: Higher functions as mentioned earlier. Moves all 4 limbs. No focal deficits. LYMPHATICS: No lymph nodes palpable in the neck, axillae or groin. SKIN: As mentioned earlier. JOINTS: No active deforming arthropathy. LAB STUDIES: WBC 2.7, hemoglobin 7.3, platelets 75 and creatinine is 1.7. Glucose 112. Stool OB is positive. Albumin is 2.6. ASSESSMENT: 1. Acute lower gastrointestinal bleeding for evaluation with acute blood loss anemia. 2. History of recent right hemicolectomy for a recurrent acute gastrointestinal bleed. 3. Recent postoperative wound infection of the abdominal wound. 4. Pancytopenia of undetermined etiology. 5. Increased creatinine with possibly chronic kidney disease stage 3. 6. Hypoalbuminemia with mild protein calorie malnutrition. 7. History of congestive heart failure. 8. History of chronic obstructive pulmonary disease. 9. Diabetes mellitus type 2. 10.Fibromyalgia. 11.Hyperlipidemia. 12.Hypertension. 13.History of rheumatoid arthritis. 14.Seizure disorder. 15.History of supraventricular tachycardia. 16.History of breast cancer. 17.History of peripheral neuropathy. 18.History of liver cirrhosis. 19.History of fibromyalgia. 20.History of diabetic peripheral neuropathy. 21.History of diverticular disease. 22.History of hepatic encephalopathy. 23.History of VRE in the urine. 24.History of appendectomy. 25.History of cholecystectomy. 26.History of anxiety, depression. 27.Remote history of nicotine dependence. 28.Obesity with body mass index 49. RECOMMENDATIONS AND DISCUSSION: This 70-year-old woman who presented with multiple complex medical issues, we will monitor the patient closely. Continue the current medications, management and symptomatic treatment. Otherwise, I would recommend one unit of transfusion. Monitor hemoglobin closely. Surgical evaluation. Hold antiplatelets and anticoagulants. Guarded prognosis because of multiple complex medical issues. Further recommendations to follow. A copy of this dictation being forwarded to Dr. Han who is the primary physician. DHAVAL / MOISÉS: [id number] / [email or web address]
[2020-03-15] MEDS: oxyCODONE ER 10 MG TAB.ER.12H PO SCH (20:01)
[2020-03-15] MEDS: SENNOSIDES 8.6 MG TAB PO SCH (20:01)
[2020-03-15] MEDS: RIFAXIMIN 550 MG TABLET PO SCH (20:01)
[2020-03-15] MEDS: SERTRALINE 25 MG TAB PO SCH (20:01)
[2020-03-15] MEDS: FOLIC ACID 1 MG TAB PO SCH (20:02)
[2020-03-15] MEDS: GABAPENTIN 100 MG CAP PO SCH (20:02)
[2020-03-15] MEDS: ANASTROZOLE 1 MG TAB PO SCH (20:02)
[2020-03-15] MEDS: SODIUM BICARBONATE TAB 650 MG TAB PO SCH ×2 (20:02→20:05)
[2020-03-15] MEDS: CALCIUM CARB-VIT D 500 MG-5 MCG TAB PO SCH (20:02)
[2020-03-15] MEDS: ARTIFICIAL TEARS-HYPROMELLOSE DROPS 15 ML BTL BOTH EYES SCH (20:02)
[2020-03-15] MEDS: METOPROLOL TARTRATE 12.5 MG TAB PO SCH (20:02)
[2020-03-15 20:19] LABS: Glucose,Whole Blood 102 mg/dL (75-99)
[2020-03-16] MEDS: SENNOSIDES 8.6 MG TAB PO SCH ×2 (05:43→19:59)
[2020-03-16] MEDS: THIAMINE 100 MG TAB PO SCH (05:43)
[2020-03-16] MEDS: HYDROcodone/APAP 10-325MG 1 EACH TAB PO PRN (05:43)
[2020-03-16] MEDS: DAPTOmycin 500 MG in SODIUM CHLORIDE 0.9% 50 ML IVPB SCH (05:43)
[2020-03-16] MEDS: RIFAXIMIN 550 MG TABLET PO SCH ×2 (05:43→19:57)
[2020-03-16] MEDS: SPIRONOLACTONE 25 MG TAB PO SCH (05:44)
[2020-03-16] MEDS ORDERED: DAPTOmycin 500 MG VIAL IVPB SCH (06:00)
[2020-03-16 06:05] LABS: Anisocytosis Slight; Basophils % (A) 1 %; Eosinophils # (A) 0.1 k/uL (0-0.7); Eosinophils % (A) 4 %; HCT 24.7 % (34.0-46.0); HGB 7.7 gm/dL (11.4-16.0); Hypochromasia Marked; Lymphocytes # (A) 0.5 k/uL (1.0-4.8); Lymphocytes % (A) 21 %; MCH 28.5 pg (25.0-35.0); MCHC 31.2 g/dL (31.0-37.0); MCV 91.2 fL (80.0-100.0); Monocytes # (A) 0.2 k/uL (0-1.0); Monocytes % (A) 9 %; Neutrophils # (A) 1.4 k/uL (1.3-7.7); Neutrophils % (A) 64 %; RBC 2.71 m/uL (3.80-5.40); RDW 19.5 % (11.5-15.5); WBC 2.3 k/uL (3.8-10.6)
[2020-03-16 06:06] LABS: Platelet Count 86 k/uL (150-450)
[2020-03-16 07:05] LABS: Glucose,Whole Blood 137 mg/dL (75-99)
[2020-03-16] MEDS: INSULIN ASPART (NovoLOG) 100 UNIT/ML VIAL SQ SCH ×4 (07:10→19:57)
[2020-03-16] MEDS: MIDODRINE 5 MG TAB PO SCH ×3 (07:58→16:28)
[2020-03-16] MEDS: METOPROLOL TARTRATE 12.5 MG TAB PO SCH ×2 (07:58→19:58)
[2020-03-16] MEDS: CALCIUM CARB-VIT D 500 MG-5 MCG TAB PO SCH ×2 (07:58→19:59)
[2020-03-16] MEDS: FERROUS SULFATE 325 MG TAB PO SCH (07:59)
[2020-03-16] MEDS: oxyCODONE ER 10 MG TAB.ER.12H PO SCH ×2 (07:59→19:58)
[2020-03-16] MEDS: SODIUM BICARBONATE TAB 650 MG TAB PO SCH ×4 (07:59→19:59)
[2020-03-16] MEDS: CHOLECALCIFEROL 25 MCG (1000 IU) TABLET PO SCH (07:59)
[2020-03-16] MEDS: GABAPENTIN 100 MG CAP PO SCH ×3 (07:59→19:59)
[2020-03-16] MEDS: MULTIVITAMINS, THERA 1 EACH TAB PO SCH (08:00)
[2020-03-16] MEDS: PANTOPRAZOLE 40 MG/10 ML VIAL IV SCH (08:00)
[2020-03-16 08:40] LABS: African American GFR (CKD) 35.3 (60.0-200.0); Anion Gap 3.4 mmol/L (4.00-12.00); BUN/Creat Ratio 12.94 Ratio (12.00-20.00); Calcium 8.4 mg/dL (8.7-10.3); Carbon Dioxide 27.6 mmol/L (21.6-31.8); Non-African American GFR(CKD) 30.5 (60.0-200.0); Potassium 5.2 mmol/L (3.5-5.5)
[2020-03-16] MEDS ORDERED: NON FORMULARY DRUG (Glucerna Shake 1 CAN Liquid) PO SCH (09:00)
[2020-03-16] MEDS ORDERED: DAPTOmycin 500 MG in SODIUM CHLORIDE 0.9% 50 ML IVPB SCH (09:00)
[2020-03-16] MEDS: IOPAMIDOL CONTRAST (ORAL USE) VIAL PO PRN ×2 (10:27→11:32)
[2020-03-16 11:48] LABS: Glucose,Whole Blood 116 mg/dL (75-99)
[2020-03-16] MEDS: ARTIFICIAL TEARS-HYPROMELLOSE DROPS 15 ML BTL BOTH EYES SCH ×2 (12:45→19:56)
--- NOTE | 2020-03-16 12:54 | P.GSCN ---
History of Present Illness Consult date: 03/16/20 History of present illness: CHIEF COMPLAINT: Dark stool HISTORY OF PRESENT ILLNESS: This is a 70-year-old female with past medical history of CHF, COPD, diabetes, chronic kidney disease, anemia, fibromyalgia, hypertension, hyperlipidemia, rheumatoid arthritis and seizure disorder. Patient had right colectomy for GI bleed and angiodysplasia on 01/27/[address] brunner. Patient has had a chronic abdominal wound that she has received antibiotics and she is being evaluated by infectious disease. Infectious disease did recommend a computed tomography scan of the abdomen and pelvis with oral contrast for further evaluation of the abdominal wound. Patient was brought into the emergency room due to one dark bowel movement yesterday. Patient denies any new abdominal pain. She does take iron. She denies any NSAID use. She did receive a unit of blood. Her hemoglobin on admission was 7.3 and is now 7.7 which is around her baseline hemoglobin. Patient denies any shortness of breath. Patient denies any fever, chills or sweats. Patient's last EGD and colonoscopy was on [address] jh benson which had revealed LA grade a esophagitis and fresh blood from rectum to cecum. PAST MEDICAL HISTORY: See list. PAST SURGICAL HISTORY: See list. MEDICATIONS: See list. ALLERGIES: See list. SOCIAL HISTORY: No illicit drug use. REVIEW OF SYSTEMS: CONSTITUTIONAL: Denies fever or chills. HEENT: Denies blurred vision, vision changes, or eye pain. Denies hemoptysis CARDIOVASCULAR: Denies chest pain or pressure. RESPIRATORY: No shortness of breath. GASTROINTESTINAL: See HPI for pertinent findings HEMATOLOGIC: Denies bleeding disorders. GENITOURINARY: Denies any blood in urine or increased urinary frequency. SKIN: Denies pruitis. Denies rash. PHYSICAL EXAM: VITAL SIGNS: Reviewed GENERAL: Well-developed in no acute distress. HEENT: No sclera icterus. Extraocular movements grossly intact. Moist buccal mucosa. Head is atraumatic, normocephalic. No nasal drainage. ABDOMEN: Soft. Obese. Nondistended. Nontender. Patient's abdominal wound does have some yellowish drainage. Otherwise the wound is getting smaller. NEUROLOGIC: Alert and oriented. Cranial nerves II through XII grossly intact. LABORATORY DATA: WBC 2.3 hemoglobin 7.7 platelets 86 creatinine 1.7 Stool for occult blood positive IMAGING: Computed tomography scan of the abdomen and pelvis pending ASSESSMENT: 1. Acute on chronic anemia 2. Possible GI bleed with dark stool 3. Chronic abdominal wound 4. Right colectomy for GI bleed and angiodysplasia on 01/27/2020 PLAN: -Continue supportive care -Continue to monitor for any signs of bleeding or worsening hemoglobin -We'll follow up on computed tomography scan of the abdomen and pelvis -Continue local wound care -Continue Protonix Thank you for this consultation Physician Microwave Engineer note has been reviewed by physician. Signing provider agrees with the documented findings, assessment, and plan of care. Past Medical History Past Medical History: Cancer, Heart Failure, COPD, Diabetes Mellitus, Fibromyalgia, Hyperlipidemia, Hypertension, Renal Disease, Rheumatoid Arthritis (RA), Seizure Disorder, Supraventricular Tachycardia (SVT) Additional Past Medical History / Comment(s): Breast cancer right-sided post mastectomy followed by chemotherapy, is independent diabetes mellitus type 2, peripheral neuropathy related to diabetes, COPD, liver cirrhosis, hypertension, hyperlipidemia, fibromyalgia, chronic kidney disease, rheumatoid arthritis, seizure disorder, history of SVT, diabetic peripheral neuropathy, chronic anxiety and depression, morbid obesity with a BMI of 58.5, previous history of GI bleed, diverticular disease, history of hepatic encephalopathy History of Any Multi-Drug Resistant Organisms: VRE Year Discovered:: 05/11/18 MDRO Source:: VRE URINE Past Surgical History: Adenoidectomy, Appendectomy, Breast Surgery, Cholecystectomy, Hysterectomy, Orthopedic Surgery, Tonsillectomy, Tubal Ligation Additional Past Surgical History / Comment(s): masectomy right, ganglion cyst right hand, total hysterectomy (hx of tubal pregnancies), lower teeth extracted. Past Anesthesia/Blood Transfusion Reactions: No Reported Reaction Past Psychological History: Anxiety, Depression Additional Psychological History / Comment(s): Pt currently is at [facility] for rehab. She needs assist with ADLS except feeds self. She states up until just lately she was getting up with a walker some. No experience. Did not work outside of the home. . No alcohol use Smoking Status: Former smoker Past Alcohol Use History: None Reported Additional Past Alcohol Use History / Comment(s): Pt started smoking in 1971 and qut in December 2017. Per patient she smoked 1-2 cigarettes a day after meals. Past Drug Use History: None Reported - Past Family History Father Family Medical History: Cancer, CVA/TIA Additional Family Medical History / Comment(s): 2000 from lung cancer Mother Family Medical History: Cancer, Dementia Additional Family Medical History / Comment(s): 2014 at age 86. Oral & Breast cancer Brother(s) Family Medical History: Asthma, Diabetes Mellitus, Fibromyalgia, Osteoarthritis (OA) Additional Family Medical History / Comment(s): Obesity. Joint replacements Medications and Allergies Home Medications Medication Instructions Recorded Confirmed Type Anastrozole [Arimidex] 1 mg PO HS@209909/30/14 03/15/20 History Sennosides [Senna] 8.6 mg PO BID@599,209904/02/18 03/15/20 History Pantoprazole [Protonix] 40 mg PO DAILY@59907/02/18 03/15/20 History Ferrous Sulfate [Iron (65 MG 325 mg PO DAILY@89908/16/18 03/15/20 History Elemental)] Acetaminophen [Tylenol] 650 mg PO Q4H PRN 08/24/19 03/15/20 History Dextran 70/Hypromellose [Genteal 1 drop BOTH EYES BID@0900,209908/24/19 03/15/20 History Tears 0.1%-0.3% Drop] Folic Acid 1 mg PO DAILY@209908/24/19 03/15/20 History Lactulose 20 gm PO BID PRN 08/24/19 03/15/20 History Multivitamins, Thera [Multivitamin 1 tab PO DAILY@89908/24/19 03/15/20 History (formulary)] Rifaximin [Xifaxan] 550 mg PO BID@0600,209908/24/19 03/15/20 History Thiamine [Vitamin B-1] 100 mg PO DAILY@59908/24/19 03/15/20 History Melatonin 10 mg PO HS PRN 10/25/19 03/15/20 History Oxymetazoline 0.05% Nasl [place] 1 spray NASAL Q15M PRN MDD 3 DOSES 10/25/19 03/15/20 History [Afrin 0.05% Nasal [place]] Sertraline HCl [Zoloft] 25 mg PO HS@209901/19/20 03/15/20 History Spironolactone [Aldactone] 50 mg PO DAILY@0600 01/19/20 03/15/20 History Sodium Bicarbonate Tab 650 mg PO QID tab 02/11/20 03/15/20 Rx Darbepoetin Gurwinder [Aranesp] 40 mcg SQ SA@209902/16/20 03/15/20 History Cholecalciferol [Vitamin D3 (25 50 mcg PO DAILY@0900 03/05/20 03/15/20 History Mcg = 1000 Iu)] Glucerna [place] 1 can PO BID@0900,1700 03/05/20 03/15/20 History Insulin Lispro [humaLOG Kwikpen] See Protocol SQ ACHS 03/05/20 03/15/20 History Midodrine [ProAmatine] 10 mg PO TID@0800,1200,1700 03/05/20 03/15/20 History Gabapentin [Neurontin] 100 mg PO TID@0900,1500,2100 #9 cap 03/10/20 03/15/20 Rx HYDROcodone/APAP 10-325MG [[place] 1 tab PO Q6HR PRN 3 Days #12 tab 03/10/20 03/15/20 Rx 10-325] oxyCODONE HCL [OxyCONTIN] 10 mg PO BID@0900,2100 #6 tab 03/10/20 03/15/20 Rx Calcium Carb-Vit D 500Mg-5Mcg 1 tab PO BID@0900,2100 03/15/20 03/15/20 History [Oscal 500+D 5 Mcg (200 Iu)] DAPTOmycin [Cubicin] 500 mg IVPB DAILY@0600 03/15/20 03/15/20 History Metoprolol Tartrate [Lopressor] 12.5 mg PO BID@0900,2100 03/15/20 03/15/20 Hist ory Allergies Allergy/AdvReac Type Severity Reaction Status Date / Time cephalexin [From Keflex] Allergy Unknown Verified 03/15/20 13:00 duloxetine [From Cymbalta] Allergy Unknown Verified 03/15/20 13:00 Penicillins Allergy Rash/Hives Verified 03/15/20 13:00 phenobarbital Allergy Unknown Verified 03/15/20 13:00 phenytoin sodium Allergy Unknown Verified 03/15/20 13:00 [From Dilantin] phenytoin sodium extended Allergy Unknown Verified 03/15/20 13:00 [From Dilantin] primidone [From Mysoline] Allergy Unknown Verified 03/15/20 13:00 codeine AdvReac Nausea & Verified 03/15/20 13:00 Vomiting Surgical - Exam Vital Signs Temp Pulse Resp BP Pulse Ox 97.1 F L 68 20 121/45 95 03/15/20 12:37 03/15/20 12:37 03/15/20 12:37 03/15/20 12:37 03/15/20 12:37 Results - Labs 03/16/20 05:35 03/16/20 05:35 Abnormal Lab Results - Last 24 Hours (Table) 03/15/20 03/15/20 03/15/20 Range/Units 12:49 12:49 12:49 WBC 2.7 L (3.8-10.6) k/uL RBC 2.57 L (3.80-5.40) m/uL Hgb 7.3 L (11.4-16.0) gm/dL Hct 22.9 L (34.0-46.0) % RDW 20.3 H (11.5-15.5) % Plt Count 75 L (150-450) k/uL Lymphocytes # 0.5 L (1.0-4.8) k/uL Anion Gap (4.00-12.00) mmol/L BUN 22 H (7-17) mg/dL Creatinine 1.71 H (0.52-1.04) mg/dL Est GFR (CKD-EPI)AfAm (60.0-200.0) Est GFR (CKD-EPI)NonAf (60.0-200.0) Glucose 112 H (74-99) mg/dL POC Glucose (mg/dL) (75-99) mg/dL Calcium (8.7-10.3) mg/dL Creatine Kinase 24 L (30-135) U/L Total Protein 6.1 L (6.3-8.2) g/dL Albumin 2.6 L (3.5-5.0) g/dL Stool Occult Blood Positive H (Negative) Crossmatch 03/15/20 03/15/20 03/15/20 Range/Units 16:22 16:41 18:50 WBC 2.9 L (3.8-10.6) k/uL RBC 2.71 L (3.80-5.40) m/uL Hgb 7.5 L (11.4-16.0) gm/dL Hct 24.1 L (34.0-46.0) % RDW 20.2 H (11.5-15.5) % Plt Count 80 L (150-450) k/uL Lymphocytes # (1.0-4.8) k/uL Anion Gap (4.00-12.00) mmol/L BUN (7-17) mg/dL Creatinine (0.52-1.04) mg/dL Est GFR (CKD-EPI)AfAm (60.0-200.0) Est GFR (CKD-EPI)NonAf (60.0-200.0) Glucose (74-99) mg/dL POC Glucose (mg/dL) 136 H (75-99) mg/dL Calcium (8.7-10.3) mg/dL Creatine Kinase (30-135) U/L Total Protein (6.3-8.2) g/dL Albumin (3.5-5.0) g/dL Stool Occult Blood (Negative) Crossmatch See Detail 03/15/20 03/16/20 03/16/20 Range/Units 20:11 05:35 05:35 WBC 2.3 L (3.8-10.6) k/uL RBC 2.71 L (3.80-5.40) m/uL Hgb 7.7 L (11.4-16.0) gm/dL Hct 24.7 L (34.0-46.0) % RDW 19.5 H (11.5-15.5) % Plt Count 86 L (150-450) k/uL Lymphocytes # 0.5 L (1.0-4.8) k/uL Anion Gap 3.40 L (4.00-12.00) mmol/L BUN (7-17) mg/dL Creatinine 1.7 H (0.52-1.04) mg/dL Est GFR (CKD-EPI)AfAm 35.3 L (60.0-200.0) Est GFR (CKD-EPI)NonAf 30.5 L (60.0-200.0) Glucose (74-99) mg/dL POC Glucose (mg/dL) 102 H (75-99) mg/dL Calcium 8.4 L (8.7-10.3) mg/dL Creatine Kinase (30-135) U/L Total Protein (6.3-8.2) g/dL Albumin (3.5-5.0) g/dL Stool Occult Blood (Negative) Crossmatch 03/16/20 03/16/20 Range/Units 07:03 11:46 WBC (3.8-10.6) k/uL RBC (3.80-5.40) m/uL Hgb (11.4-16.0) gm/dL Hct (34.0-46.0) % RDW (11.5-15.5) % Plt Count (150-450) k/uL Lymphocytes # (1.0-4.8) k/uL Anion Gap (4.00-12.00) mmol/L BUN (7-17) mg/dL Creatinine (0.52-1.04) mg/dL Est GFR (CKD-EPI)AfAm (60.0-200.0) Est GFR (CKD-EPI)NonAf (60.0-200.0) Glucose (74-99) mg/dL POC Glucose (mg/dL) 137 H 116 H (75-99) mg/dL Calcium (8.7-10.3) mg/dL Creatine Kinase (30-135) U/L Total Protein (6.3-8.2) g/dL Albumin (3.5-5.0) g/dL Stool Occult Blood (Negative) Crossmatch Microbiology - Last 24 Hours (Table) 03/15/20 19:10 Gram Stain - Preliminary Abdomen Wound Culture - Preliminary 03/15/20 19:10 Anaerobic Culture - Preliminary Abdomen Diabetes panel 03/15/20 03/16/20 Range/Units 12:49 05:35 Sodium 138 138 (137-145) mmol/L Potassium 4.9 5.2 (3.5-5.1) mmol/L Chloride 107 107 (98-107) mmol/L Carbon Dioxide 24 27.6 (22-30) mmol/L BUN 22 H 22.0 (7-17) mg/dL Creatinine 1.71 H 1.7 H (0.52-1.04) mg/dL Glucose 112 H 102 (74-99) mg/dL Calcium 8.4 8.4 L (8.4-10.2) mg/dL AST 28 (14-36) U/L ALT 11 (4-34) U/L Alkaline Phosphatase 77 (38-126) U/L Total Protein 6.1 L (6.3-8.2) g/dL Albumin 2.6 L (3.5-5.0) g/dL Calcium panel 03/15/20 03/16/20 Range/Units 12:49 05:35 Calcium 8.4 8.4 L (8.4-10.2) mg/dL Albumin 2.6 L (3.5-5.0) g/dL Pituitary panel 03/15/20 03/16/20 Range/Units 12:49 05:35 Sodium 138 138 (137-145) mmol/L Potassium 4.9 5.2 (3.5-5.1) mmol/L Chloride 107 107 (98-107) mmol/L Carbon Dioxide 24 27.6 (22-30) mmol/L BUN 22 H 22.0 (7-17) mg/dL Creatinine 1.71 H 1.7 H (0.52-1.04) mg/dL Glucose 112 H 102 (74-99) mg/dL Calcium 8.4 8.4 L (8.4-10.2) mg/dL Adrenal panel 03/15/20 03/16/20 Range/Units 12:49 05:35 Sodium 138 138 (137-145) mmol/L Potassium 4.9 5.2 (3.5-5.1) mmol/L Chloride 107 107 (98-107) mmol/L Carbon Dioxide 24 27.6 (22-30) mmol/L BUN 22 H 22.0 (7-17) mg/dL Creatinine 1.71 H 1.7 H (0.52-1.04) mg/dL Glucose 112 H 102 (74-99) mg/dL Calcium 8.4 8.4 L (8.4-10.2) mg/dL Total Bilirubin 0.8 (0.2-1.3) mg/dL AST 28 (14-36) U/L ALT 11 (4-34) U/L Alkaline Phosphatase 77 (38-126) U/L Total Protein 6.1 L (6.3-8.2) g/dL Albumin 2.6 L (3.5-5.0) g/dL
--- NOTE | 2020-03-16 12:58 | CT ---
EXAMINATION TYPE: CT abdomen pelvis wo con DATE OF EXAM: 03/16/2020 COMPARISON: HISTORY: abdominal pain CT DLP: 1785 mGycm Automated exposure control for dose reduction was used. TECHNIQUE: Helical acquisition of images from the lung bases through the pelvis. FINDINGS: The heart is enlarged. There are coronary artery calcifications. Lack of intravenous contra st, sensitivity. There are anasarca changes. Serpiginous foci along the lesser curvature of the stoma ch consistent with varices. Some associated adenopathy is also suspected LUNG BASES: Some probable basilar atelectatic changes noted. AORTA: No significant abnormality is appreciated. LIVER/GB: Nodular contour is present suggesting underlying otitis. Patient is post cholecystectomy. PANCREAS: No significant abnormality is seen. SPLEEN: No significant abnormality is seen. ADRENALS: No significant abnormality is seen. KIDNEYS: No significant abnormality is seen. REPRODUCTIVE ORGANS: No significant abnormality is seen. URINARY BLADDER: Catheterized. BOWEL: No significant abnormality is seen. FREE AIR: No Free Air is visible. ASCITES: Interval development of ascites. PELVIC ADENOPATHY: None visualized. RETROPERITONEAL ADENOPATHY: No Retroperitoneal Adenopathy visible. OSSEOUS STRUCTURES: No significant change is seen. IMPRESSION: SPLENOMEGALY, THERE IS LIKELY PORTAL HYPERTENSION, CIRRHOSIS. ANASARCA CHANGES. INTERVAL DEVELOPMENT OF ASCITES. NONCONTRAST EXAM.
[2020-03-16 16:37] LABS: Glucose,Whole Blood 121 mg/dL (75-99)
--- NOTE | 2020-03-16 17:16 | PN ---
PROGRESS NOTE DATE OF SERVICE: 03/16/2020 This 70-year-old woman who was admitted with acute lower gastrointestinal bleeding and acute blood-loss anemia is being closely monitored. The patient recently had right hemicolectomy because of recurrent GI bleed. A CT scan abdomen showed splenomegaly and likely portal hypertension, cirrhosis, anasarca changes also noted. Abdominal pain, ascites also noted on noncontrast exam. PAST MEDICAL HISTORY: Reviewed. REVIEW OF SYSTEMS: CARDIOVASCULAR system: No angina or palpitations. RESPIRATORY as mentioned earlier. GI as mentioned earlier. no dysuria. NERVOUS SYSTEM: No numbness or weakness. CURRENT MEDICATIONS: Reviewed and include: Tylenol. [place], Arimidex, [place], vitamin D3, daptomycin, iron sulfate, folic acid, Neurontin. NovoLog, melatonin, Lopressor, ProAmatine. Multivitamins. Narcan and OxyContin. Doses reviewed. PHYSICAL EXAM: Patient is alert, oriented x2. Pulse 64. Blood pressure 115/69. Respirations 18, temperature 97.3, pulse ox 97% on room air. HEENT: Conjunctivae normal. NECK: No JVD. CARDIOVASCULAR: S1, S2 muffled. RESPIRATION: Breath sounds diminished in the bases. A few scattered rhonchi and crackles. ABDOMEN: Soft, obese, nontender. No mass palpable. LEGS: No edema. No swelling. NERVOUS SYSTEM: Higher functions as mentioned earlier. Moves all four limbs. No focal deficits. LYMPHATICS: No lymph nodes palpable in the neck, axillae or groin. SKIN: No ulcer, no rashes and no bleeding. JOINTS: No active deforming arthropathy. LAB STUDIES: WBC 2.2, hemoglobin 7.7, platelets 86. Otherwise, anion gap is 3.4 and creatinine 3.7. Calcium is 8.4. ASSESSMENT: 1. Acute lower gastrointestinal bleeding for evaluation with possible acute blood-loss anemia. 2. History of recent right colectomy for recurrent acute gastrointestinal bleed. 3. Recent postoperative wound infection with abdominal wall wound. 4. Pancytopenia of undetermined etiology. 5. Increased creatinine with possible chronic kidney stage 3. 6. Cirrhosis of the liver with possibly mild ascites. 7. Hypoalbuminemia with mild protein calorie malnutrition. 8. History of congestive heart failure. 9. History of chronic obstructive pulmonary disease. 10.Diabetes mellitus type 2. 11.Fibromyalgia. 12.Hyperlipidemia. 13.Splenomegaly in the CT scan. 14.Hypertension. 15.History of rheumatoid arthritis. 16.Seizure disorder. 17.History of supraventricular tachycardia. 18.History of breast cancer. 19.History of peripheral neuropathy. 20.History of fibromyalgia. 21.History of diabetic peripheral neuropathy. 22.History of diverticular disease. 23.History of hepatic encephalopathy. 24.History of VRE in the urine. 25.History of appendectomy. 26.History of cholecystectomy. 27.History of anxiety, depression. 28.Remote history of nicotine dependence. 29.Obesity with body mass index . RECOMMENDATIONS AND DISCUSSION: Recommend to continue current medications, symptomatic treatment. Continue to monitor hemoglobin closely. Otherwise, daptomycin has been continued. We will closely follow with Dr. Boyd and surgery. Guarded prognosis. Further recommendations to follow. Repeat labs will be ordered. Also recommend acute hepatitis panel also. MMODL / IJN: [id number] / MTDD
[2020-03-16 19:53] LABS: Glucose,Whole Blood 161 mg/dL (75-99)
[2020-03-16] MEDS: SERTRALINE 25 MG TAB PO SCH (19:57)
[2020-03-16] MEDS: FOLIC ACID 1 MG TAB PO SCH (19:58)
[2020-03-16] MEDS: ANASTROZOLE 1 MG TAB PO SCH (19:59)
[2020-03-16] MEDS: SODIUM CHLORIDE 0.9% 1,000 ML IV SCH (20:02)
--- NOTE | 2020-03-16 22:12 | PN ---
PROGRESS NOTE DATE OF SERVICE: 03/16/2020 REASON FOR FOLLOWUP: Abdominal wound infection. INTERVAL HISTORY: Patient is currently afebrile. Patient is breathing comfortably. Denies having any chest pain or shortness of breath or cough. No abdominal pain. He did have an episode of loose stools today. PHYSICAL EXAMINATION: Blood pressure 115/56 with a pulse of 64. Temperature is 97.3. She is 97% on room air. General description: The patient is an elderly female lying in bed in no distress. Respiratory system: Unlabored breathing, clear to auscultation anteriorly. Heart S1, S2. Regular rate and rhythm. ABDOMEN: Soft, no tenderness. LABS: Cultures currently pending. CT did not show any fluid collection. DIAGNOSTIC IMPRESSION AND PLAN: Patient with abdominal wound infection with chronic nonhealing abdominal wound. The patient is currently covered with daptomycin to continue while waiting for the culture to finalize. Continue supportive care. MMODL / IJN: [id number] /
[2020-03-16 23:21] LABS: Hepatitis A Antibody IgM Non-Reactive (Non-Reactive); Hepatitis B Core IgM Non-Reactive (Non-Reactive); Hepatitis B Surface Antigen Non-Reactive (Non-Reactive); Hepatitis C IgG Antibody Non-Reactive (Non-Reactive)
[2020-03-17] MEDS: SENNOSIDES 8.6 MG TAB PO SCH ×2 (05:20→20:24)
[2020-03-17] MEDS: THIAMINE 100 MG TAB PO SCH (05:23)
[2020-03-17] MEDS: DAPTOmycin 500 MG in SODIUM CHLORIDE 0.9% 50 ML IVPB SCH (05:23)
[2020-03-17] MEDS: RIFAXIMIN 550 MG TABLET PO SCH ×2 (05:23→20:22)
[2020-03-17] MEDS: SPIRONOLACTONE 25 MG TAB PO SCH (05:23)
[2020-03-17] MEDS: HYDROcodone/APAP 10-325MG 1 EACH TAB PO PRN (05:26)
[2020-03-17 07:00] LABS: Glucose,Whole Blood 126 mg/dL (75-99)
[2020-03-17] MEDS: INSULIN ASPART (NovoLOG) 100 UNIT/ML VIAL SQ SCH ×4 (07:38→20:22)
[2020-03-17] MEDS: MIDODRINE 5 MG TAB PO SCH ×3 (08:43→15:22)
[2020-03-17] MEDS: PANTOPRAZOLE 40 MG/10 ML VIAL IV SCH (08:44)
[2020-03-17] MEDS: CALCIUM CARB-VIT D 500 MG-5 MCG TAB PO SCH ×2 (08:44→20:22)
[2020-03-17] MEDS: METOPROLOL TARTRATE 12.5 MG TAB PO SCH ×2 (08:44→20:22)
[2020-03-17] MEDS: MULTIVITAMINS, THERA 1 EACH TAB PO SCH (08:44)
[2020-03-17] MEDS: CHOLECALCIFEROL 25 MCG (1000 IU) TABLET PO SCH (08:44)
[2020-03-17] MEDS: FERROUS SULFATE 325 MG TAB PO SCH (08:44)
[2020-03-17] MEDS: SODIUM BICARBONATE TAB 650 MG TAB PO SCH ×4 (08:44→20:22)
[2020-03-17] MEDS: GABAPENTIN 100 MG CAP PO SCH ×3 (08:45→20:22)
[2020-03-17] MEDS: oxyCODONE ER 10 MG TAB.ER.12H PO SCH ×2 (08:45→20:23)
[2020-03-17] MEDS: ARTIFICIAL TEARS-HYPROMELLOSE DROPS 15 ML BTL BOTH EYES SCH ×2 (09:05→20:23)
[2020-03-17 09:26] LABS: Basophils # (A) 0.02 X 10*3/uL (0.00-0.10); Basophils % (A) 0.6 %; Eosinophils # (A) 0.11 X 10*3/uL (0.04-0.35); Eosinophils % (A) 3.4 %; HCT 26.9 % (37.2-46.3); Lymphocytes # (A) 0.65 X 10*3/uL (0.90-5.00); MCH 27.6 pg (27.0-32.0); MCHC 29.7 g/dL (32.0-37.0); MCV 92.8 fL (80.0-97.0); Mean Platelet Volume 11.4 fL (9.5-12.2); Monocytes # (A) 0.41 X 10*3/uL (0.20-1.00); Monocytes % (A) 12.6 %; Neutrophils # (A) 2.05 X 10*3/uL (1.80-7.70); Neutrophils % (A) 63.1 %; Platelet Count 98 X 10*3/uL (140-440); WBC 3.25 X 10*3/uL (4.50-10.00)
[2020-03-17 09:52] LABS: Anion Gap 7.6 mmol/L (4.00-12.00); BUN/Creat Ratio 11.88 Ratio (12.00-20.00); Calcium 8.3 mg/dL (8.7-10.3); Carbon Dioxide 23.4 mmol/L (21.6-31.8); Non-African American GFR(CKD) 32.8 (60.0-200.0); Potassium 4.6 mmol/L (3.5-5.5)
[2020-03-17 11:29] LABS: Glucose,Whole Blood 113 mg/dL (75-99)
--- NOTE | 2020-03-17 13:30 | P.PN ---
Subjective Progress Note Date: 03/17/20 CHIEF COMPLAINT: Dark stool HISTORY OF PRESENT ILLNESS: Patient is being followed for possible GI bleed. She's had no further stools or any blood in her stools. She did start having diarrhea yesterday evening. She denies any nausea or vomiting. Denies any new abdominal pain. She is currently on a clear liquid diet. Computed tomography scan of the abdomen and pelvis showed splenic megaly, portal hypertension, cirrhosis, anasarca and ascites. No evidence of any abdominal abscess. She's on antibiotics for chronic abdominal wound. Afebrile. WBC 3.25 he will and 8 PHYSICAL EXAM: VITAL SIGNS: Reviewed. GENERAL: Well-developed in no acute distress. HEENT: No sclera icterus. Extraocular movements grossly intact. Moist buccal mucosa. Head is atraumatic, normocephalic. ABDOMEN: Soft. Nondistended. Nontender. NEUROLOGIC: Alert and oriented. Cranial nerves II through XII grossly intact. ASSESSMENT: 1. Acute on chronic anemia 2. Possible GI bleed with dark stool 3. Chronic abdominal wound 4. Right colectomy for GI bleed and angiodysplasia on 01/27/2020 PLAN: -Advanced patient to a full liquid diet -Continue supportive care -Continue to monitor for any signs of bleeding or worsening hemoglobin -Continue local wound care -Continue Protonix -No plans for any surgical intervention Physician Tongue Stitcher note has been reviewed by physician. Signing provider agrees with the documented findings, assessment, and plan of care. Objective - Vital Signs Vital signs: Vital Signs Temp 98.6 F 03/17/20 06:55 Pulse 69 03/17/20 06:55 Resp 18 03/17/20 06:55 BP 120/70 03/17/20 06:55 Pulse Ox 97 03/17/20 06:55 Intake & Output 03/16/20 03/17/20 03/17/20 18:59 06:59 18:59 Intake Total 480 Output Total 325 Balance 480 -325 Intake: Intake, IV Titration 480 Amount Sodium Chloride 0.9% 1, 480 000 ml @ 40 mls/hr IV . Q24H [facility] Rx#:[id number] Output: Urine 325 Other: Voiding Method Indwelling Catheter Indwelling Catheter Indwelling Catheter - Labs CBC & Chem 7: 03/17/20 06:29 03/17/20 06:29 Labs: Abnormal Lab Results - Last 24 Hours (Table) 03/16/20 03/16/20 03/17/20 Range/Units 16:34 19:51 06:29 WBC 3.25 L (4.50-10.00) X 10*3/uL RBC 2.90 L (4.10-5.20) X 10*6/uL Hgb 8.0 L (12.0-15.0) g/dL Hct 26.9 L (37.2-46.3) % MCHC 29.7 L (32.0-37.0) g/dL RDW 21.0 H (11.5-14.5) % Plt Count 98 L (140-440) X 10*3/uL Lymphocytes # 0.65 L (0.90-5.00) X 10*3/uL Creatinine (0.6-1.5) mg/dL Est GFR (CKD-EPI)AfAm (60.0-200.0) Est GFR (CKD-EPI)NonAf (60.0-200.0) BUN/Creatinine Ratio (12.00-20.00) Ratio Glucose (70-110) mg/dL POC Glucose (mg/dL) 121 H 161 H (75-99) mg/dL Calcium (8.7-10.3) mg/dL 03/17/20 03/17/20 03/17/20 Range/Units 06:29 06:54 11:27 WBC (4.50-10.00) X 10*3/uL RBC (4.10-5.20) X 10*6/uL Hgb (12.0-15.0) g/dL Hct (37.2-46.3) % MCHC (32.0-37.0) g/dL RDW (11.5-14.5) % Plt Count (140-440) X 10*3/uL Lymphocytes # (0.90-5.00) X 10*3/uL Creatinine 1.6 H (0.6-1.5) mg/dL Est GFR (CKD-EPI)AfAm 38.0 L (60.0-200.0) Est GFR (CKD-EPI)NonAf 32.8 L (60.0-200.0) BUN/Creatinine Ratio 11.88 L (12.00-20.00) Ratio Glucose 119 H (70-110) mg/dL POC Glucose (mg/dL) 126 H 113 H (75-99) mg/dL Calcium 8.3 L (8.7-10.3) mg/dL Microbiology - Last 24 Hours (Table) 03/15/20 19:10 Gram Stain - Preliminary Abdomen Wound Culture - Preliminary 03/15/20 19:10 Anaerobic Culture - Preliminary Abdomen
--- NOTE | 2020-03-17 16:23 | PN ---
PROGRESS NOTE DATE OF SERVICE: 03/17/2020 This 70-year-old woman was admitted with acute lower GI bleeding with possibly acute blood-loss anemia is being closely monitored at this time. The most recent hemoglobin is 8. The patient multiple abnormal labs. Surgery is following the patient closely at this time and GI and Surgery has advanced to full liquids and continue supportive treatment. No chest pain. No palpitation. PHYSICAL EXAMINATION: Alert and oriented x2. Pulse 69, blood pressure 120/70, respiration 18, temperature 98.6, pulse ox 97% on room air. HEENT: Conjunctivae pale. NECK: No jugular venous distention. CARDIOVASCULAR: S1, S2 muffled. RESPIRATORY: Breath sounds diminished at the bases. No rhonchi, no crackles. ABDOMEN: Soft. Mild diffuse discomfort on palpation. No guarding. No rigidity. LEGS: No edema. No swelling. NERVOUS SYSTEM: No focal deficits. LABS: WBC 3.25, hemoglobin is 8, platelets are 98. ASSESSMENT: 1. Anemia with acute blood loss anemia with possible acute lower gastrointestinal bleeding. 2. History of recent right colectomy for recurrent acute gastrointestinal bleed. 3. Mild pancytopenia of undetermined etiology. 4. History of recent postoperative wound infection with abdominal wall wound. 5. Increased creatinine with possible chronic kidney disease stage 3. 6. Cirrhosis of the liver with possible mild ascites. 7. Hypoalbuminemia with mild protein calorie malnutrition. 8. History of congestive heart failure. 9. History of chronic obstructive pulmonary disease. 10.Diabetes mellitus type 2. 11.Fibromyalgia. 12.Hyperlipidemia. 13.Splenomegaly on the CAT scan. 14.Hypertension. 15.History of rheumatoid arthritis. 16.History of seizure disorder. 17.History of supraventricular tachycardia. 18.History of breast cancer. 19.History of peripheral neuropathy. 20.History of fibromyalgia. 21.History of diabetic peripheral neuropathy. 22.History of diverticular disease. 23.History of hepatic encephalopathy. 24.History of VRE in the urine. 25.History of appendectomy. 26.History of cholecystectomy. 27.Anxiety, depression. 28.Remote history of nicotine dependence. 29.Obesity with body mass index . RECOMMENDATIONS AND DISCUSSION: I recommend to continue current medications, continue symptomatic treatment. Also recommend serum ammonia. Otherwise, continue the rest of medications. Hepatitis panel is negative. Stool OB is positive. Closely follow with Surgery. Further recommendations to follow. MMODL / IJN: [id number] / MTDD
[2020-03-17 16:38] LABS: Glucose,Whole Blood 128 mg/dL (75-99)
--- NOTE | 2020-03-17 18:04 | PN ---
PROGRESS NOTE DATE OF SERVICE: 03/17/2020 REASON FOR FOLLOWUP: Abdominal wound infection. INTERVAL HISTORY: The patient is currently afebrile. The patient is feeling better. She has been complaining of not getting enough food on a clear liquid diet. Denies having any chest pain or shortness of breath or cough. Still has some diarrhea. PHYSICAL EXAMINATION: Blood pressure 128/72 with a pulse of 52, temperature 98.1. She is 94% on room air. General description is an elderly female lying in bed in no distress. RESPIRATORY SYSTEM: Unlabored breathing. Clear to auscultation anteriorly. HEART: S1, S2. Regular rate and rhythm. ABDOMEN: Soft. No tenderness. LABS: Hemoglobin 8, white count 3.25, creatinine 1.3. DIAGNOSTIC IMPRESSION AND PLAN: 1. Patient with abdominal wound with some purulent drainage. CT did not show any collection, though. Cultures are pending. Patient is covered with daptomycin. 2. Patient with diarrhea with antibiotic exposure. Will check stool for C difficile and treat if positive. MMODL / IJN: [id number] /
[2020-03-17 20:06] LABS: Glucose,Whole Blood 133 mg/dL (75-99)
[2020-03-17] MEDS: ANASTROZOLE 1 MG TAB PO SCH (20:22)
[2020-03-17] MEDS: FOLIC ACID 1 MG TAB PO SCH (20:22)
[2020-03-17] MEDS: SODIUM CHLORIDE 0.9% 1,000 ML IV SCH (20:23)
[2020-03-17] MEDS: SERTRALINE 25 MG TAB PO SCH (20:23)
[2020-03-18] MEDS: RIFAXIMIN 550 MG TABLET PO SCH ×2 (05:26→21:10)
[2020-03-18] MEDS: THIAMINE 100 MG TAB PO SCH (05:26)
[2020-03-18] MEDS: SPIRONOLACTONE 25 MG TAB PO SCH (05:26)
[2020-03-18] MEDS: SENNOSIDES 8.6 MG TAB PO SCH ×2 (05:27→21:11)
[2020-03-18 06:54] LABS: Glucose,Whole Blood 119 mg/dL (75-99)
[2020-03-18] MEDS: INSULIN ASPART (NovoLOG) 100 UNIT/ML VIAL SQ SCH ×4 (07:03→21:10)
[2020-03-18] MEDS: MULTIVITAMINS, THERA 1 EACH TAB PO SCH (09:10)
[2020-03-18] MEDS: CALCIUM CARB-VIT D 500 MG-5 MCG TAB PO SCH ×2 (09:10→21:09)
[2020-03-18] MEDS: MIDODRINE 5 MG TAB PO SCH ×3 (09:10→17:16)
[2020-03-18] MEDS: FERROUS SULFATE 325 MG TAB PO SCH (09:10)
[2020-03-18] MEDS: PANTOPRAZOLE 40 MG/10 ML VIAL IV SCH (09:10)
[2020-03-18] MEDS: CHOLECALCIFEROL 25 MCG (1000 IU) TABLET PO SCH (09:10)
[2020-03-18] MEDS: METOPROLOL TARTRATE 12.5 MG TAB PO SCH ×2 (09:10→21:09)
[2020-03-18] MEDS: SODIUM BICARBONATE TAB 650 MG TAB PO SCH ×4 (09:10→21:10)
[2020-03-18] MEDS: oxyCODONE ER 10 MG TAB.ER.12H PO SCH ×2 (09:11→21:10)
[2020-03-18] MEDS: GABAPENTIN 100 MG CAP PO SCH ×3 (09:12→21:09)
[2020-03-18] MEDS: ARTIFICIAL TEARS-HYPROMELLOSE DROPS 15 ML BTL BOTH EYES SCH ×2 (09:12→21:10)
[2020-03-18 09:14] LABS: Basophils # (A) 0.01 X 10*3/uL (0.00-0.10); Basophils % (A) 0.3 %; Eosinophils % (A) 3.3 %; HCT 26.7 % (37.2-46.3); HGB 8.1 g/dL (12.0-15.0); Lymphocytes # (A) 0.86 X 10*3/uL (0.90-5.00); MCHC 30.3 g/dL (32.0-37.0); MCV 92.4 fL (80.0-97.0); Mean Platelet Volume 11.1 fL (9.5-12.2); Monocytes # (A) 0.43 X 10*3/uL (0.20-1.00); Neutrophils # (A) 1.66 X 10*3/uL (1.80-7.70); Neutrophils % (A) 54.1 %; Platelet Count 92 X 10*3/uL (140-440); RBC 2.89 X 10*6/uL (4.10-5.20); RDW 20.8 % (11.5-14.5); WBC 3.07 X 10*3/uL (4.50-10.00)
[2020-03-18 10:07] LABS: Anion Gap 7.6 mmol/L (4.00-12.00); BUN/Creat Ratio 11.25 Ratio (12.00-20.00); Calcium 8.2 mg/dL (8.7-10.3); Carbon Dioxide 24.4 mmol/L (21.6-31.8); Non-African American GFR(CKD) 32.8 (60.0-200.0); Potassium 5.1 mmol/L (3.5-5.5)
[2020-03-18 11:31] LABS: Glucose,Whole Blood 120 mg/dL (75-99)
[2020-03-18] MEDS: HYDROcodone/APAP 10-325MG 1 EACH TAB PO PRN (15:01)
--- NOTE | 2020-03-18 16:20 | P.PN ---
Progress Note - Text Progress Note Date: 03/18/20 Patient appears stable. There is no acute changes. Her he will was a 0.1. On exam vital signs are stable. Abdomen soft. Abdominal wound is stable. She'll continue receive local wound care and supportive care.
[2020-03-18 17:01] LABS: Glucose,Whole Blood 117 mg/dL (75-99)
--- NOTE | 2020-03-18 20:30 | P.PN ---
Progress Note - Text Progress Note Date: 03/18/20 Chief Complaint: Melanotic stools Consultation: This is a 70 year patient currently at [facility] /followed by Dr. Han. Chronic stable medical conditions include CHF EF 55-60%, COPD, diabetes, fibromyalgia, hyperlipidemia, hypertension, chronic kidney disease stage III, rheumatoid arthritis, history of breast cancer with right sided mastectomy, peripheral neuropathy, chronic anxiety depression, liver cirrhosis with portal hypertension.uses a wheelchair to get about GI bleed - right colectomy on January [address] Seaman. Also repair of incisional hernia. Patient has been treated for acute cellulitis at the abdominal wall incision site. Readmitted March 05 for abdominal wall incidences site cellulitis. Now admitted with melanotic stools. Also having some purulent drainage from the abdominal wound site. Empirically on daptomycin. No further intervention per Dr. Seaman from surgery. Today-had some diarrhea. Drainage from the incision site. On a full liquid diet. Continues on daptomycin. Review of systems: Was done for constitutional, cardiovascular, GI, pulmonary. relevant finding as above Active Medications Acetaminophen (Acetaminophen Tab 325 Mg Tab) 650 mg PO Q4H PRN PRN Reason: Fever and/ or Pain Hydrocodone Bitart/Acetaminophen (Hydrocodone/Apap 10-325mg 1 Each Tab) 1 each PO Q6HR PRN PRN Reason: Pain Last Admin: 03/18/20 15:01 Dose: 1 each Documented by: Anastrozole (Anastrozole 1 Mg Tab) 1 mg PO HS@2099 [facility] Last Admin: 03/17/20 20:22 Dose: 1 mg Documented by: Artificial Tears (Artificial Tears-Hypromellose Drops 15 Ml Btl) 1 drops BOTH EYES BID@ [facility] Last Admin: 03/18/20 09:12 Dose: 1 drops Documented by: Calcium Carbonate (Calcium Carb-Vit D 500 Mg-5 Mcg Tab) 1 each PO BID@ [facility] Last Admin: 03/18/20 09:10 Dose: 1 each Documented by: Cholecalciferol (Cholecalciferol 25 Mcg (1000 Iu) Tablet) 50 mcg PO DAILY@899 [facility] Last Admin: 03/18/20 09:10 Dose: 50 mcg Documented by: Darbepoetin Gurwinder (Darbepoetin Gurwinder 40 Mcg/0.4 Ml Syringe) 40 mcg SQ SA@2099 [facility] Ferrous Sulfate (Ferrous Sulfate 325 Mg Tab) 325 mg PO DAILY@0900 [facility] Last Admin: 03/18/20 09:10 Dose: 325 mg Documented by: Folic Acid (Folic Acid 1 Mg Tab) 1 mg PO DAILY@2100 [facility] Last Admin: 03/17/20 20:22 Dose: 1 mg Documented by: Gabapentin (Gabapentin 100 Mg Cap) 100 mg PO TID@0900,1500,2100 [facility] Last Admin: 03/18/20 15:01 Dose: 100 mg Documented by: Sodium Chloride (Saline 0.9%) 1,000 mls @ 40 mls/hr IV .Q24H [facility] Last Admin: 03/17/20 20:23 Dose: 40 mls/hr Documented by: Insulin Aspart (Insulin Aspart (Novolog) 100 Unit/Ml Vial) 0 unit SQ ACHS [facility]; Protocol Last Admin: 03/18/20 17:18 Dose: Not Given Documented by: Melatonin (Melatonin 5 Mg Tablet) 10 mg PO HS PRN PRN Reason: Insomnia Metoprolol Tartrate (Metoprolol Tartrate 12.5 Mg Tab) 12.5 mg PO BID@0900,2100 [facility] Last Admin: 03/18/20 09:10 Dose: 12.5 mg Documented by: Midodrine (Midodrine 5 Mg Tab) 10 mg PO TID@0800,1200,1700 [facility] Last Admin: 03/18/20 17:16 Dose: 10 mg Documented by: Multivitamins (Multivitamins, Thera 1 Each Tab) 1 each PO DAILY@0900 [facility] Last Admin: 03/18/20 09:10 Dose: 1 each Documented by: Naloxone HCl (Naloxone 0.4 Mg/Ml 1 Ml Vial) 0.2 mg IV Q2M PRN PRN Reason: Opioid Reversal Oxycodone HCl (Oxycodone Er 10 Mg Tab.Er.12h) 10 mg PO BID@0900,2100 [facility]; Protocol Last Admin: 03/18/20 09:11 Dose: 10 mg Documented by: Oxymetazoline HCl (Oxymetazoline 0.05% Nasl [place] 1 [place] Bottle) 1 spray NASAL Q15M PRN PRN Reason: BLOODY NOSE Pantoprazole Sodium (Pantoprazole 40 Mg/10 Ml Vial) 40 mg IV DAILY [facility] Last Admin: 03/18/20 09:10 Dose: 40 mg Documented by: Rifaximin (Rifaximin 550 Mg Tablet) 550 mg PO BID@0600,2100 [facility] Stop: 04/14/20 21:01 Last Admin: 03/18/20 05:26 Dose: 550 mg Documented by: Senna (Sennosides 8.6 Mg Tab) 8.6 mg PO BID@0600,2100 [facility] Last Admin: 03/18/20 05:27 Dose: Not Given Documented by: Sertraline HCl (Sertraline 25 Mg Tab) 25 mg PO HS@2100 [facility] Last Admin: 03/17/20 20:23 Dose: 25 mg Documented by: Sodium Bicarbonate (Sodium Bicarbonate Tab 650 Mg Tab) 650 mg PO 0900,1300,1700,2100 [facility] Last Admin: 03/18/20 17:16 Dose: 650 mg Documented by: Spironolactone (Spironolactone 25 Mg Tab) 50 mg PO DAILY@0600 [facility] Last Admin: 03/18/20 05:26 Dose: 50 mg Documented by: Thiamine HCl (Thiamine 100 Mg Tab) 100 mg PO DAILY@0600 [facility] Last Admin: 03/18/20 05:26 Dose: 100 mg Documented by: Past medical history to include: CHF EF 55-60%, COPD, diabetes, fibromyalgia, hyperlipidemia, hypertension, chronic kidney disease stage III, rheumatoid arthritis, history of breast cancer with right sided mastectomy, peripheral neuropathy, chronic anxiety depression, liver cirrhosis with portal hypertension.uses a wheelchair to get about. Right hemicolectomy for GI bleed Social history: Lives at [facility] on [facility] Uses a wheelchair. Patient smoked from 1971 and stopped in December 2017. No alcohol. Physical examination: VITAL SIGNS: 98.5, 56, 17, 130/74, 94% room air GENERAL: reclining in bed, awake, comfortable EYES: Pupils equal. Conjunctiva pale. HEENT: External appearance of nose and ears normal, oral cavity grossly normal. NECK: JVD unable to assess; masses not palpable. HEART: First and second heart sounds are normal; mild edema. LUNGS: Respiratory rate increased; decreased breath sounds. ABDOMEN: Soft, some purulent drainage from the incision site at the umbilicus ,. liver spleen not palpable, no masses palpable. PSYCH: [Alert and oriented x3; mood and affect normal Investigations: White count 3 hemoglobin 8.1 crit is 92 potassium 5.1 creatinine 1.6 March 09: Hemoglobin 7.2 Assessment: -Acute infection/cellulitis of the abdominal wall incision site. -right colectomy, repair of incisional hernia, partial omentectomy. On 01/27/2020 for GI bleed -Chronic congestive heart failure from diastolic dysfunction EF 55-60% -COPD in an ex-smoker -Diabetes mellitus type 2 on oral hypoglycemic -Chronic fibromyalgia -Hyperlipidemia -Essential hypertension -Chronic kidney disease stage III from diabetic nephropathy and hypertensive nephrosclerosis -Rheumatoid arthritis -History of breast cancer with a right-sided mastectomy -Peripheral neuropathy secondary to diabetes -Chronic anxiety depression -Obesity -Liver cirrhosis with portal hypertension on Xifaxan -Pancytopenia from cirrhosis -Patient has a legal guardian-Calvin Whipple -Acute diarrhea. Could be antibiotic associated. Rule out C. diff. Plan: Patient currently on a full liquid diet. Follow H&H. On daptomycin per Dr. Pastrana. C. diff was ordered earlier today.
[2020-03-18 20:46] LABS: Glucose,Whole Blood 110 mg/dL (75-99)
[2020-03-18] MEDS: FOLIC ACID 1 MG TAB PO SCH (21:09)
[2020-03-18] MEDS: SERTRALINE 25 MG TAB PO SCH (21:10)
[2020-03-18] MEDS: ANASTROZOLE 1 MG TAB PO SCH (21:10)
[2020-03-18] MEDS: SODIUM CHLORIDE 0.9% 1,000 ML IV SCH (21:11)
--- NOTE | 2020-03-18 22:49 | PN ---
PROGRESS NOTE DATE OF SERVICE: 03/18/2020 REASON FOR FOLLOWUP: Abdominal infection and diarrhea. INTERVAL HISTORY: The patient is currently afebrile. The patient is breathing comfortably. Denies having any chest pain or shortness of breath or cough. No abdominal pain. She wants to have more food. No significant diarrhea has been reported by nursing staff. PHYSICAL EXAMINATION: Blood pressure 144/75, pulse of 59, temperature 98.1. She is 94% on room air. General description is an elderly female lying in bed in no distress. RESPIRATORY SYSTEM: Unlabored breathing. Clear to auscultation anteriorly. HEART: S1, S2. Regular rate and rhythm. ABDOMEN: Soft. No tenderness. LABS: Stool for C difficile came back negative. Abdominal culture so far negative. DIAGNOSTIC IMPRESSION AND PLAN: Patient with an abdominal wound infection. CT was negative for any abscess. Local care to continue with Aquacel Silver dressing. She is on daptomycin. If the cultures remain negative, antibiotic will be discontinued and the patient will be monitored closely with local wound care only. MMODL / IJN: [id number] /
[2020-03-19] MEDS: HYDROcodone/APAP 10-325MG 1 EACH TAB PO PRN ×3 (02:21→14:30)
[2020-03-19] MEDS: SPIRONOLACTONE 25 MG TAB PO SCH (05:41)
[2020-03-19] MEDS: RIFAXIMIN 550 MG TABLET PO SCH (05:41)
[2020-03-19] MEDS: THIAMINE 100 MG TAB PO SCH (05:41)
[2020-03-19] MEDS: SENNOSIDES 8.6 MG TAB PO SCH (05:42)
[2020-03-19 06:48] LABS: Glucose,Whole Blood 97 mg/dL (75-99)
[2020-03-19 07:22] VITALS: RESP 16
[2020-03-19] MEDS: INSULIN ASPART (NovoLOG) 100 UNIT/ML VIAL SQ SCH ×2 (07:38→13:45)
[2020-03-19] MEDS: MIDODRINE 5 MG TAB PO SCH ×2 (07:45→13:12)
[2020-03-19] MEDS: CHOLECALCIFEROL 25 MCG (1000 IU) TABLET PO SCH (10:03)
[2020-03-19] MEDS: CALCIUM CARB-VIT D 500 MG-5 MCG TAB PO SCH (10:03)
[2020-03-19] MEDS: FERROUS SULFATE 325 MG TAB PO SCH (10:04)
[2020-03-19] MEDS: METOPROLOL TARTRATE 12.5 MG TAB PO SCH (10:04)
[2020-03-19] MEDS: GABAPENTIN 100 MG CAP PO SCH ×2 (10:04→14:24)
[2020-03-19] MEDS: oxyCODONE ER 10 MG TAB.ER.12H PO SCH (10:25)
[2020-03-19] MEDS: SODIUM BICARBONATE TAB 650 MG TAB PO SCH ×2 (10:27→14:24)
[2020-03-19] MEDS: MULTIVITAMINS, THERA 1 EACH TAB PO SCH (10:27)
[2020-03-19] MEDS: PANTOPRAZOLE 40 MG/10 ML VIAL IV SCH (10:27)
[2020-03-19] MEDS: ARTIFICIAL TEARS-HYPROMELLOSE DROPS 15 ML BTL BOTH EYES SCH (10:28)
[2020-03-19 11:36] LABS: Glucose,Whole Blood 117 mg/dL (75-99)
[2020-03-19 12:26] VITALS: BP 108/59; PULSE 51; TEMP 98.1
--- NOTE | 2020-03-19 12:26 | P.PN ---
Subjective Progress Note Date: 03/19/20 HISTORY OF PRESENT ILLNESS This is a 70-year-old female treated for abdominal infection and diarrhea. She is currently on daptomycin. Regarding the diarrhea, C. difficile toxin was negative. Granados catheter has been changed. Patient denies any nausea or vomiting. She is eating well. Patient continues to have purulent drainage from the wound site. She has been afebrile, heart rate 59, blood pressure 117/60, pulse ox 97% on room air. A 70-year-old morbidly obese female. She is resting bed appears to be comfortable. Abdominal wound culture is no growth at 48 hours and finalize. 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 Patient is resting i n bed and appears to be comfortable. HEENT: Head is atraumatic, normocephalic. Pupils equal, round. Sclerae is anicteric. NECK: Supple. No JVD. No lymphadenopathy. LUNGS: Clear to auscultation. No wheezes or rhonchi. No intercostal retractions. HEART: Regular rate and rhythm. ABDOMEN: Soft. Bowel sounds are present. No masses. Wound at the umbilicus reveals purulent drainage.. EXTREMITIES: No pedal edema. No calf tenderness. NEUROLOGICAL: Patient is awake, alert. ASSESSMENT Abdominal soft tissue cellulitis No abscess on CAT scan Diarrhea, C. difficile toxin negative PLAN Continue daptomycin Continue local wound care with [facility] The above dictated assessment and findings were discussed with Dr. Boyd. The impression and plan of care have been directed as dictated. Keli Guzman nurse practitioner acting as scribe for Dr. Boyd. Objective - Vital Signs Vital signs: Vital Signs Temp 98.4 F 03/19/20 07:19 Pulse 59 L 03/19/20 07:19 Resp 16 03/19/20 07:19 BP 117/68 03/19/20 07:19 Pulse Ox 97 03/19/20 07:19 Intake & Output 03/18/20 03/19/20 03/19/20 18:59 06:59 18:59 Output Total 450 400 Balance -450 -400 Output: Urine 450 400 Other: Voiding Method Indwelling Catheter Indwelling Catheter - Labs CBC & Chem 7: 03/18/20 05:56 03/18/20 05:56 Labs: Abnormal Lab Results - Last 24 Hours (Table) 03/18/20 03/18/20 03/18/20 Range/Units 05:56 11:29 16:58 Creatinine 1.6 H (0.6-1.5) mg/dL Est GFR (CKD-EPI)AfAm 38.0 L (60.0-200.0) Est GFR (CKD-EPI)NonAf 32.8 L (60.0-200.0) BUN/Creatinine Ratio 11.25 L (12.00-20.00) Ratio POC Glucose (mg/dL) 120 H 117 H (75-99) mg/dL Calcium 8.2 L (8.7-10.3) mg/dL 03/18/20 Range/Units 20:44 Creatinine (0.6-1.5) mg/dL Est GFR (CKD-EPI)AfAm (60.0-200.0) Est GFR (CKD-EPI)NonAf (60.0-200.0) BUN/Creatinine Ratio (12.00-20.00) Ratio POC Glucose (mg/dL) 110 H (75-99) mg/dL Calcium (8.7-10.3) mg/dL Microbiology - Last 24 Hours (Table) 03/15/20 19:10 Anaerobic Culture - Preliminary Abdomen 03/15/20 19:10 Gram Stain - Final Abdomen Wound Culture - Final
--- NOTE | 2020-03-19 12:45 | P.PN ---
Subjective Progress Note Date: 03/19/20 CHIEF COMPLAINT: Dark stool HISTORY OF PRESENT ILLNESS: Patient is being followed for possible GI bleed and chronic abdominal wound. Patient is having bowel movements and no blood or dark stools reported. She denies any nausea or vomiting. No new abdominal pain. Afebrile. Hemoglobin yesterday 8.1 wound culture no growth PHYSICAL EXAM: VITAL SIGNS: Reviewed. GENERAL: Well-developed in no acute distress. HEENT: No sclera icterus. Extraocular movements grossly intact. Moist buccal mucosa. Head is atraumatic, normocephalic. ABDOMEN: Soft. Nondistended. Nontender. NEUROLOGIC: Alert and oriented. Cranial nerves II through XII grossly intact. ASSESSMENT: 1. Acute on chronic anemia 2. Possible GI bleed with dark stool 3. Chronic abdominal wound 4. Right colectomy for GI bleed and angiodysplasia on 01/27/2020 PLAN: -Patient can be discharged from surgical standpoint -Advance diet to regular -Continue supportive care -Continue local wound care -No plans for any surgical intervention Physician Drill Runner note has been reviewed by physician. Signing provider agrees with the documented findings, assessment, and plan of care. Objective - Vital Signs Vital signs: Vital Signs Temp 98.1 F 03/19/20 12:21 Pulse 51 L 03/19/20 12:21 Resp 16 03/19/20 12:21 BP 108/59 03/19/20 12:21 Pulse Ox 94 L 03/19/20 12:21 Intake & Output 03/18/20 03/19/20 03/19/20 18:59 06:59 18:59 Output Total 450 400 Balance -450 -400 Output: Urine 450 400 Other: Voiding Method Indwelling Catheter Indwelling Catheter - Labs CBC & Chem 7: 03/18/20 05:56 03/18/20 05:56 Labs: Abnormal Lab Results - Last 24 Hours (Table) 03/18/20 03/18/20 03/19/20 Range/Units 16:58 20:44 11:35 POC Glucose (mg/dL) 117 H 110 H 117 H (75-99) mg/dL Microbiology - Last 24 Hours (Table) 03/15/20 19:10 Anaerobic Culture - Preliminary Abdomen 03/15/20 19:10 Gram Stain - Final Abdomen Wound Culture - Final
--- NOTE | 2020-03-19 13:59 | P.DS ---
Providers Date of admission: 03/15/20 13:59 Expected date of discharge: 03/19/20 Attending physician: Guy Griffith Consults: 03/15/20 13:59 Consult Physician Routine Consulting Provider: Virgilio Seaman Consult Reason/Comments: upper GI bleed Do you want consulting provider notified?: Yes 03/15/20 18:23 Consult Physician Routine Consulting Provider: Tania Boyd Consult Reason/Comments: wound infection Do you want consulting provider notified?: Yes Primary care physician: [facility] Hospital Course: Chief Complaint: Melanotic stools Consultation: This is a 70 year patient currently at [facility] /followed by Dr. Han. Chronic stable medical conditions include CHF EF 55-60%, COPD, diabetes, fibromyalgia, hyperlipidemia, hypertension, chronic kidney disease stage III, rheumatoid arthritis, history of breast cancer with right sided mastectomy, peripheral neuropathy, chronic anxiety depression, liver cirrhosis with portal hypertension .uses a wheelchair to get about GI bleed - right colectomy on January [address] Seaman. Also repair of incisional hernia. Patient has been treated for acute cellulitis at the abdominal wall incision site. Readmitted March 05 for abdominal wall incidences site cellulitis. Now admitted with melanotic stools. Also having some purulent drainage from the abdominal wound site. Empirically on daptomycin. No further intervention per Dr. Seaman from surgery. Patient had some diarrhea. Negative for C. diff. Today-sitting up in bed. Comfortable. Cultures from the wound site of come back to be negative. Patient cleared by Dr. Pastrana from ID and Dr. Seaman and with discharge. Discussed with the patient. Diet has been advanced.. Daptomycin discontinued Discussion and discharge planning more than 35 minutes Consultation: Dr. Boyd from ID Dr. Seaman from general surgery Past medical history to include: CHF EF 55-60%, COPD, diabetes, fibromyalgia, hyperlipidemia, hypertension, chronic kidney disease stage III, rheumatoid arthritis, history of breast cancer with right sided mastectomy, peripheral neuropathy, chronic anxiety depression, liver cirrhosis with portal hypertension.uses a wheelchair to get about. Right hemicolectomy for GI bleed Social history: Lives at [facility] on the [address] Uses a wheelchair. Patient smoked from 1971 and stopped in December 2017. No alcohol. Physical examination: VITAL SIGNS: 98.1, 51, 16, 108/59, 94% room air GENERAL: reclining in bed, awake, comfortable EYES: Pupils equal. Conjunctiva pale. HEENT: External appearance of nose and ears normal, oral cavity grossly normal. NECK: JVD unable to assess; masses not palpable. HEART: First and second heart sounds are normal; some edema. LUNGS: Respiratory rate increased; decreased breath sounds. ABDOMEN: Soft, some purulent drainage from the incision site at the umbilicus ,. liver spleen not palpable, no masses palpable. PSYCH: [Alert and oriented x3; mood and affect normal Investigations: White count 3 hemoglobin 8.1 crit is 92 potassium 5.1 creatinine 1.6 March 09: Hemoglobin 7.2 Assessment: -Acute GI bleed with melanotic stools. Self-limiting. No further intervention per Dr. Seaman. -Acute infection/cellulitis of the abdominal wall incision site. Complete a course of daptomycin. No further antibiotics. Cultures have been negative.. -right colectomy, repair of incisional hernia, partial omentectomy. On 01/27/2020 for GI bleed -Chronic congestive heart failure from diastolic dysfunction EF 55-60% -COPD in an ex-smoker -Diabetes mellitus type 2 on oral hypoglycemic -Chronic fibromyalgia -Hyperlipidemia -Essential hypertension -Chronic kidney disease stage III from diabetic nephropathy and hypertensive nephrosclerosis -Rheumatoid arthritis -History of breast cancer with a right-sided mastectomy -Peripheral neuropathy secondary to diabetes -Chronic anxiety depression -Obesity -Liver cirrhosis with portal hypertension on Xifaxan -Pancytopenia from cirrhosis -Patient has a legal guardian-Calvin Whipple -Acute diarrhea. antibiotic associated. C. diff ruled out. Disposition: COUNT INCLUDES [facility] Patient Condition at Discharge: Stable Plan - Discharge Summary Discharge Rx Participant: No New Discharge Prescriptions: No Action Anastrozole [Arimidex] 1 mg PO HS@2100 Sennosides [Senna] 8.6 mg PO BID@0600,2100 Pantoprazole [Protonix] 40 mg PO DAILY@0600 Ferrous Sulfate [Iron (65 MG Elemental)] 325 mg PO DAILY@0900 Acetaminophen [Tylenol] 650 mg PO Q4H PRN PRN Reason: Fever And/ Or Pain Dextran 70/Hypromellose [Genteal Tears 0.1%-0.3% Drop] 1 drop BOTH EYES BID@0900,2100 Rifaximin [Xifaxan] 550 mg PO BID@0600,2100 Lactulose 20 gm PO BID PRN PRN Reason: Constipation Thiamine [Vitamin B-1] 100 mg PO DAILY@0600 Multivitamins, Thera [Multivitamin (formulary)] 1 tab PO DAILY@0900 Folic Acid 1 mg PO DAILY@2099 Melatonin 10 mg PO HS PRN PRN Reason: Insomnia Oxymetazoline 0.05% Nasl [place] [Afrin 0.05% Nasal [place]] 1 spray NASAL Q15M PRN MDD 3 DOSES PRN Reason: BLOODY NOSE Sertraline HCl [Zoloft] 25 mg PO HS@2099 Spironolactone [Aldactone] 50 mg PO DAILY@0600 Sodium Bicarbonate Tab 650 mg PO QID tab Darbepoetin Gurwinder [Aranesp] 40 mcg SQ SA@2099 Midodrine [ProAmatine] 10 mg PO TID@0800,1200,1700 Glucerna Shake 1 can PO BID@0900,1700 Cholecalciferol [Vitamin D3 (25 Mcg = 1000 Iu)] 50 mcg PO DAILY@0900 Insulin Lispro [humaLOG Kwikpen] See Protocol SQ ACHS Gabapentin [Neurontin] 100 mg PO TID@0900,1500,2100 #9 cap HYDROcodone/APAP 10-325MG [[place] 10-325] 1 tab PO Q6HR PRN 3 Days #12 tab PRN Reason: Pain oxyCODONE HCL [OxyCONTIN] 10 mg PO BID@0900,2100 #6 tab Calcium Carb-Vit D 500Mg-5Mcg [Oscal 500+D 5 Mcg (200 Iu)] 1 tab PO BID@0900,2099 DAPTOmycin [Cubicin] 500 mg IVPB DAILY@0600 Metoprolol Tartrate [Lopressor] 12.5 mg PO BID@0900,2100 Discharge Medication List Anastrozole [Arimidex] 1 mg PO HS@209909/30/14 [History] Sennosides [Senna] 8.6 mg PO BID@0600,2100 04/02/18 [History] Pantoprazole [Protonix] 40 mg PO DAILY@0600 07/02/18 [History] Ferrous Sulfate [Iron (65 MG Elemental)] 325 mg PO DAILY@0900 08/16/18 [History] Acetaminophen [Tylenol] 650 mg PO Q4H PRN 08/24/19 [History] Dextran 70/Hypromellose [Genteal Tears 0.1%-0.3% Drop] 1 drop BOTH EYES BID@899,209908/24/19 [History] Folic Acid 1 mg PO DAILY@209908/24/19 [History] Lactulose 20 gm PO BID PRN 08/24/19 [History] Multivitamins, Thera [Multivitamin (formulary)] 1 tab PO DAILY@89908/24/19 [History] Rifaximin [Xifaxan] 550 mg PO BID@599,209908/24/19 [History] Thiamine [Vitamin B-1] 100 mg PO DAILY@59908/24/19 [History] Melatonin 10 mg PO HS PRN 10/25/19 [History] Oxymetazoline 0.05% Nasl [place] [Afrin 0.05% Nasal [place]] 1 spray NASAL Q15M PRN MDD 3 DOSES 10/25/19 [History] Sertraline HCl [Zoloft] 25 mg PO HS@209901/19/20 [History] Spironolactone [Aldactone] 50 mg PO DAILY@0601/19/20 [History] Sodium Bicarbonate Tab 650 mg PO QID tab 02/11/20 [Rx] Darbepoetin Gurwinder [Aranesp] 40 mcg SQ SA@209902/16/20 [History] Cholecalciferol [Vitamin D3 (25 Mcg = 1000 Iu)] 50 mcg PO DAILY@0900 03/05/20 [History] Glucerna Shake 1 can PO BID@0900,1700 03/05/20 [History] Insulin Lispro [humaLOG Kwikpen] See Protocol SQ ACHS 03/05/20 [History] Midodrine [ProAmatine] 10 mg PO TID@0800,1200,1700 03/05/20 [History] Gabapentin [Neurontin] 100 mg PO TID@0900,1500,2099 #9 cap 03/10/20 [Rx] HYDROcodone/APAP 10-325MG [[place] 10-325] 1 tab PO Q6HR PRN 3 Days #12 tab 03/10/20 [Rx] oxyCODONE HCL [OxyCONTIN] 10 mg PO BID@899,2100 #6 tab 03/10/20 [Rx] Calcium Carb-Vit D 500Mg-5Mcg [[place] 500+D 5 Mcg (200 Iu)] 1 tab PO BI D@09,209903/15/20 [History] DAPTOmycin [Cubicin] 500 mg IVPB DAILY@0600 03/15/20 [History] Metoprolol Tartrate [Lopressor] 12.5 mg PO BID@09,209903/15/20 [History] Follow up Appointment(s)/Referral(s): Tom Han MD [Primary Care Provider] - 1-2 days
[2020-03-21] MEDS ORDERED: DARBEPOETIN ALFA 40 MCG/0.4 ML SYRINGE SQ SCH (21:00)
== END 2020-03-19 16:36 | DRG 378 ==
LOC: EC 12:29 → 4SSUR 13:59
PROVIDERS: ADMIT Hospitalist; ATTEND Hospitalist
PROC: 30233N1 Transfusion of Nonautologous Red Blood Cells into Peripheral Vein, Percutaneous Approach (ICD-10-PCS; principal; 2020-03-15)
DX: K92.1 Melena (principal); L03.311 Cellulitis of abdominal wall; Z68.42 Body mass index [BMI] 45.0-49.9, adult; R18.8 Other ascites; K76.6 Portal hypertension; I50.32 Chronic diastolic (congestive) heart failure; I13.0 Hypertensive heart and chronic kidney disease with heart failure and stage 1 through stage 4 chronic kidney disease, or unspecified chronic kidney disease; D62 Acute posthemorrhagic anemia; D61.818 Other pancytopenia; E44.1 Mild protein-calorie malnutrition; T81.41XA Infection following a procedure, superficial incisional surgical site, initial encounter; N18.30 Chronic kidney disease, stage 3 unspecified; Z20.822 Contact with and (suspected) exposure to COVID-19; M79.7 Fibromyalgia; M06.9 Rheumatoid arthritis, unspecified; K74.60 Unspecified cirrhosis of liver; K55.20 Angiodysplasia of colon without hemorrhage; K43.2 Incisional hernia without obstruction or gangrene; J44.9 Chronic obstructive pulmonary disease, unspecified; G40.909 Epilepsy, unspecified, not intractable, without status epilepticus; F41.8 Other specified anxiety disorders; E78.5 Hyperlipidemia, unspecified; E66.01 Morbid (severe) obesity due to excess calories; E11.42 Type 2 diabetes mellitus with diabetic polyneuropathy; E11.22 Type 2 diabetes mellitus with diabetic chronic kidney disease; Z90.710 Acquired absence of both cervix and uterus; Z90.49 Acquired absence of other specified parts of digestive tract; Z90.11 Acquired absence of right breast and nipple; Z87.891 Personal history of nicotine dependence; Z85.3 Personal history of malignant neoplasm of breast; Z83.3 Family history of diabetes mellitus; Z82.5 Family history of asthma and other chronic lower respiratory diseases; Z82.3 Family history of stroke; Z80.3 Family history of malignant neoplasm of breast; Z80.1 Family history of malignant neoplasm of trachea, bronchus and lung; Z79.899 Other long term (current) drug therapy
CPT/HCPCS: 36415; 74176; 80048; 80053; 80074; 82140; 82272; 82550; 83690; 83735; 84484; 85025; 85027; 85610; 85730; 86850; 86870; 86880; 86900; 86901; 86920; 87070; 87075; 87205; 87324; 87635; 96361; 96374; 99285